=== PATIENT | female | born 1965 | race Caucasian/White ===

== ENCOUNTER → 2017-12-10 12:35 | Outpatient (CLI) | payer MEDICAID, SELFPAY ==
--- NOTE | 2017-12-10 12:38 | BI_ITS ---
MAMMOGRAPHY - BILATERAL SCREENING REASON FOR EXAM: Female, 52 years old. Routine annual screening examination. PERTINENT HISTORY: Aunt with breast cancer. TECHNIQUE: Digital bilateral breast lakeshia (3D mammographic acquisition) in the CC and MLO projections. 2-D mediolateral oblique (MLO) and craniocaudad (CC) views of both breasts were obtained. CAD: Full Field Digital Mammography with Computer Added Detection was performed. COMPARISON: Comparison is made with prior examination dated July 10, 2016 and November 06, 2014. FINDINGS: Breast Composition: The breasts are almost entirely fatty. There are no dominant masses or suspicious calcifications. Stable benign-appearing bilateral axillary lymph nodes. No other significant abnormalities are identified. There has been no significant change since the prior study. BI/SCREENING MAMM (CAD), BILAT IMPRESSION: Stable bilateral screening mammogram. Yearly follow-up mammogram recommended. (A) ASSESSMENT CATEGORY: BIRADS Category 2: Benign. A letter regarding these results will be sent to the patient by the facility within 30 days. Approximately 10% of breast cancers are not detected by mammography. A normal mammogram should not delay biopsy of a clinically suspicious abnormality. [id number] Electronically Signed: Leo Tipton MD at 14:20 EDT Tel [phone], Service support ,
== END ==
PROVIDERS: Family Provider Family Medicine; PCP Family Medicine; Visit Provider Family Medicine
DX: Z12.31 Encounter for screening mammogram for malignant neoplasm of breast (principal)
CPT/HCPCS: 77063; 77067

== ENCOUNTER 2018-04-07 15:05 | Outpatient (RCR) | payer MEDICAID, SELFPAY ==
--- NOTE | 2018-04-07 15:56 | HP.PTEVAL_ITS ---
Patient's Visit Information ARNIE MCQUEEN is a 52 year old F referred to Physical Therapy by EWA DINH with a diagnosis of LBP. Date of Evaluation: 04/07/18 Physical Therapist: Niels Trinidad DPT, OC - Visit Plan Frequency: 3x /Week Duration: 4-6 Weeks Plan: 3x/week for 2-4 weeks for: 1. Janice based L/S ext ex adn mobs as needed adn progression of forces. 2. Core strength adn postural sterngth to HEP. 3. Body mechanics as she feels better. 4. ES and MH if needed. - Subjective Subjective: R LBP and into outside of hip pain. started 3 weeks ago in the middle of the night bending down to put dogs leash on. Couldn't move after that. Didn't work all week. Saw doctor who wrote her off for the week. Saw chiropractor who did electrodes with MH. It helped. Was put on Naproxen which made her sick. Taking alleve. 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 Bending still hurts. Sitting is not bad unless she sits for too long, 40 minute period is too much. Basic ADLs OK but avoids garbage adn cleaning. Hobbies include walking and playing with dog, hasn't been able to walk the dog. No regualr ex. - Pain R LBP Pain Intensity (Out of 10): 2 Pain Intensity Range: 0, 9 Comment: better am - Objective LB AROM is limited in ext max with pain R, flexion min limited with R pull, SB painful R not L and mildly limited B. Posture is flat lordosis and kyphotic T/S. No tenderness in LB paraspinals. reflexes 2/3 patella and achilles. Sensation LE WNL to gross light touch. no c/o bowel or bladder problems. Strength LE 4-/5 without myotomal abnormalities. Repeated motion: ext PPU, improved ROM and B. Better after sitting in chair with appropriate towel roll lordosis. Trasnfers adn gait are I but slow adn hesitant. - Goals Goal 1:: Patient have 0-1/10 pain only and 95% better overall. Goal Time Frame: 4-6 Weeks Goal 2:: Patient transfer table and chair withotu hesitancy Goal Time Frame: 4-6 Weeks Goal 3:: Patient sleep through the night without waking Goal Time Frame: 4-6 Weeks Goal 4:: I approp HEP to minimize future problems. Goal Time Frame: 4-6 Weeks - Rehabilitation Potential Physical Therapy Diagnosis: LBP likely discal in nature. Rehabilitation Potential: Good - Anticipated Interventions Patient/Client Instruction: Educate patient on: Condition, Plan of Care For the Purpose of:: To decrease pain, To increase ROM, To increase tolerance to activity/condition/position Therapeutic Exercise to Include: Strength training, Passive ROM, Active ROM, Dynamic Lumbar Stabilization, Janice Exercises For the Purpose of:: To decrease pain, To improve muscle performance and motor function, To improve ability of physical actions for home/community/work/leisure Manual Therapy Techniques to Include: Mobilization For the Purpose of:: To increase ROM TENS: Yes Thermo therapy (hot pack): Yes For the Purpose of:: To decrease pain Thank you for the opportunity to evaluate your patient. For Medicare and Medicare HMO plans, please review the plan of care and approve it. It will need to be FAXED BACK to us at [phone] for Medicare purposes. Please let me know if there are questions or concerns regarding this plan of care. Physician Signature: Date:
--- NOTE | 2018-04-21 17:10 | HP.PT.NRP ---
HP - Discharge Summary (1) - Patient Information ARNIE MCQUEEN was seen in my office for initial evaluation on 04/07/18. The following Plan of Care was established for this patient: Initial Frequency: 3x /Week Initial Duration: 4-6 Weeks - Anticipated Interventions Patient/Client Instruction: Educate patient on: Condition, Plan of Care For the Purpose of:: To decrease pain, To increase ROM, To increase tolerance to activity/condition/position Therapeutic Exercise to Include: Strength training, Passive ROM, Active ROM, Dynamic Lumbar Stabilization, Janice Exercises For the Purpose of:: To decrease pain, To improve muscle performance and motor function, To improve ability of physical actions for home/community/work/leisure Manual Therapy Techniques to Include: Mobilization For the Purpose of:: To increase ROM TENS: Yes Thermo therapy (hot pack): Yes For the Purpose of:: To decrease pain This patient was last seen in our office 04/07/18. Pertinent comments regarding their Physical therapy will appear below: PT SEEN ONE VISIT FOR EVALUATIONA ND poc ESTABLISHED. pATIENT HAS CALLED TO CANCEL ALL VISITS STATING THAT SHE HAS HAD A CHANGE OF TREATMENT. I will discontinue at her request. At this point I will be discontinuing this patient from physical therapy. I would be happy to see this patient again in the future if found appropriate by the physician. Thank you! Niels Trinidad, DPT, OC
== END 2018-04-07 19:00 | disposition home or self-care (01) ==
LOC: PT 15:05
PROVIDERS: Family Provider Family Medicine; PCP Family Medicine
DX: M54.5 Low back pain (principal)
CPT/HCPCS: 97110; 97162

== ENCOUNTER → 2018-06-01 14:21 | Outpatient (CLI) | payer MEDICAID, SELFPAY ==
[2018-05-31 14:20] VITALS: BMI 45.6
[2018-06-01 14:57] LABS: Bacteria 0 SEEN /hpf (None Seen); Mucous, Urine 0 SEEN /hpf (<or=2+); Red Blood Cells-Urine 0 SEEN /hpf (0-5)
[2018-06-01 15:30] LABS: Color, Urine Yellow (Yellow); Glucose, Dipstick Normal (Normal); Ketone-Dipstick Negative (Negative); Leukocyte Esterase-Dipstick 100 /ul (Negative); Nitrite-Dipstick Negative (Negative); Occult Blood-Urine Negative /ul (Negative); Protein-Dipstick 15 mg/dl (Negative); Urine Bilirubin Dipstick Negative (Negative); Urine Clarity Clear (Clear); Urine Urobilinogen Normal (Normal)
[2018-06-01 16:12] LABS: Squamous Epithelial Cells - UA 5-10 SEEN /hpf (5-10); White Blood Cells 0-5 SEEN /hpf (0-5)
== END ==
PROVIDERS: Family Provider Family Medicine; PCP Family Medicine; Referring Provider Physician Assistant; Visit Provider Physician Assistant
DX: R10.9 Unspecified abdominal pain (principal)
CPT/HCPCS: 81001; 87086; 87088

== ENCOUNTER 2018-06-15 18:37 | Emergency (ER) | payer MEDICAID, SELFPAY ==
[2018-05-31 14:20] VITALS: BMI 45.6
[2018-06-15 18:38] VITALS: BP 144/93; PULSE 112; RESP 17; TEMP 36.8; O2SAT 95; BMI 45.9
--- NOTE | 2018-06-15 19:16 | US_ITS ---
STUDY: VENOUS DOPPLER ULTRASOUND - LEFT LOWER EXTREMITY REASON FOR EXAM: Female, 53 years old. Posterior knee swelling. TECHNIQUE: Ultrasound evaluation of the deep vein system to include lloyd-scale imaging and compression was performed. Lloyd-scale imaging and Doppler sonographic evaluation, including duplex spectral analysis and qualitative color flow sonography, was performed. COMPARISON: None. FINDINGS: Common Femoral Vein: Normal compression, spontaneity and augmentation. Normal color Doppler. Common Femoral Vein/Greater Saphenous Junction: Normal compression, spontaneity and augmentation. Normal color Doppler. Deep Femoral Vein: Normal compression, spontaneity and augmentation. Normal color Doppler. Femoral Proximal: Normal compression, spontaneity and augmentation. Normal color Doppler. Femoral Middle: Normal compression, spontaneity and augmentation. Normal color Doppler. Femoral Distal: Normal compression, spontaneity and augmentation. Normal color Doppler. Popliteal Vein: Normal compression, spontaneity and augmentation. Normal color Doppler. Posterior Tibial Vein: Normal compression, spontaneity and augmentation. Normal color Doppler. Peroneal Vein: Normal compression, spontaneity and augmentation. Normal color Doppler. There is a 5.1 x 3.7 x 2.2 cm complex left popliteal fossa cyst. US/Venous Duplex Imag/Limited/Uni IMPRESSION: Normal venous Doppler ultrasound of the left lower extremity. 5.1 x 3.7 x 2.2 cm complex left popliteal fossa cyst. Electronically Signed: Chavo Mo, at 20:19 EST Tel , Service support ,
--- NOTE | 2018-06-15 20:02 | ED.DCSUM_ITS ---
- ER Visit Summary Date of Service: 06/15/18 Chief Complaint: Left knee pain History of Present Illness: The patient is a 53 F who noted pain and swelling just above her left knee last week. She thought she hit it on something. This has seemed to improve, but now she has pain and swelling along the proximal calf. Patient does have problems with elevated platelet counts which can lead to blood clots. She was sent from urgent care to ensure no blood clot. 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 She denies having chest pain or shortness of breath. Physical Examination: Vital signs remarkable for heart rate of 112, otherwise unremarkable. Patient sitting upright in bed no acute distress. Heart is regular rate and rhythm. Lungs sounds clear. Left lower extremity examination reveals mild edema with tenderness palpation over the medial proximal left calf. No palpable cords. No overlying skin changes. There is no focal tenderness at the knee joint itself. She has good range of motion. Test Results: Venous ultrasound of the left leg shows no evidence of DVT. There is a 5.1 x 3.7 x 2.2 cm complex left popliteal cyst. Emergency Department Course and Treatment: Test results were discussed with the patient. She wishes for no medication at this time. She has seen Dr. Fernando in the past and will follow-up if needed. Treatment Plan: [] Disposition: Discharge Impression: Armijo's cyst left knee This note was generated with Linki dictation software. It may contain incorrect words, spelling, and punctuation that were not noted in review of the chart prior to signing ED Disposition - Plan for ED Patient: Disposition: Home or Assisted Living Chief Complaint: Lower Extremity Injury Instructions: ED Cyst Armijo Referrals: Tyron Orellana III, MD [Primary Care Provider] - As Needed
[2018-06-15 20:12] VITALS: PULSE 82; RESP 18; O2SAT 98
--- OUTSIDE RECORDS SUMMARY | 2018-08-17 23:32 | XMS RPT_ITS ---
:1965 Author Organization [facility] Care Team Providers Name Role Phone EBONY CMCLOUD Referring Unavailable EBONY MCCLOUD Attending Unavailable EBONY MCCLOUD Referring Unavailable PHOEBE DACOSTA) Attending Unavailable CEBUL IIIMAE Attending Unavailable SUE WEBER Attending Unavailable SUE WEBER Referring Unavailable ZORAIDA BASS (TOBACCO DRUMMER) Attending Unavailable ZACHARY HANSEN Attending Unavailable CEBUL IIIMAE Referring Unavailable GEETA CANO (PA) Attending Unavailable CEBUL III, MAE A Referring Unavailable CEBUL III, MAE Higgins Attending Unavailable EBONY MCCLOUD Referring Unavailable BHUPINDER CASTAÑEDA Attending Unavailable CEBUL III, MAE Higgins Attending Unavailable CEBUL III, MAE Higgins Attending Unavailable LELA OROSCO (TOBACCO DRUMMER) Attending Unavailable CEBUL III, MAE Higgins Attending Unavailable ZORAIDA BASS (TOBACCO DRUMMER) Referring Unavailable BHUPINDER CASTAÑEDA Attending Unavailable ZORAIDA BASS (TOBACCO DRUMMER) Attending Unavailable Chavo Clement Attending Unavailable Cebul III, Mae Referring Unavailable Chavo Clement Attending Unavailable Chavo Clement Referring Unavailable Cebul III, Mae Primary Care Unavailable Cebul III, Mae Primary Care Unavailable Tanvi Ryan Attending Unavailable CHACHA VARELA Attending Unavailable CHACHA VARELA Referring Unavailable Cebul III, Mae Primary Care Unavailable CHACHA VARELA Consulting Unavailable Cebul, Josue Referring Unavailable Cebul III, Mae Primary Care Unavailable Cebul III, Mae Attending Unavailable PROBLEMS PROBLEMS DATE TYPE CONDITION / CODE ATTENDING STATUS SOURCE 06/04/2018 Active Encounter for ZORAIDA BASS Active [facility] screening for other (TOBACCO DRUMMER) Clinic Main disorder / [place] Z13.89(ICD-10) Repository 06/01/2018 Unknown R10.9 - Unspecified Chavo Clement Active [facility] abdominal pain / [facility] R10.9(ICD-10) Hospital Repository 05/03/2018 Active Unknown / NA Active [facility] UNK(Unknown) Clinic Main [place] Repository 04/27/2018 Unknown M54.5 - Low back pain CHACHA VARELA Active [place] / M54.5(ICD-10) Formerly [facility] Hospital Repository 06/02/2016 Active Elevated white blood NA Active [facility] cell count, Clinic Main unspecified / [place] D72.829(ICD-10) Repository 04/02/2010 Active Impaired glucose NA Active [facility] tolerance (oral) / Clinic Main R73.02(ICD-10) [place] Repository 03/17/2008 Active Essential (primary) NA Active [facility] hypertension / Clinic Main I10(ICD-10) [place] Repository 08/08/2016 Active Malignant neoplasm of NA Active [facility] left kidney, except Clinic Main renal pelvis / [place] C64.2(ICD-10) Repository 06/02/2016 Active Essential NA Active [facility] (hemorrhagic) Clinic Main thrombocythemia / [place] D47.3(ICD-10) Repository 04/04/2015 Active Hypothyroidism, NA Active [facility] unspecified / Clinic Main E03.9(ICD-10) [facility] Repository PROCEDURES PROCEDURES No Procedure Records FoundRESULTS RESULTS EMERGENCY DEPARTMENT Observed: 06/16/2018 Status: F Source: [place] SUMMARY 2:44 PM [facility] REPOSITORY [facility] Medical Records Department [address] [place] [address] Emergency Department Summary 06/15/182001 MR#: [id number] Acct: [id number] Name: PAYTON MCQUEEN Rep #: [id number] : 1965 53 From: Tanvi Ryan MD PCP: Mae Morton III, MD Status: DEP ER - ER Visit Summary Date of Service: 06/15/18 Chief Complaint: Left knee pain History of Present Illness: The patient is a 53 F who noted pain and swelling just above her left knee last week. She thought she hit it on something. This has seemed to improve, but now she has pain and swelling along the proximal calf. Patient does have problems with elevated platelet counts which can lead to blood clots. She was sent from urgent care to ensure no blood clot. 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 She denies having chest pain or shortness of breath. Physical Examination: Vital signs remarkable for heart rate of 112, otherwise unremarkable. Patient sitting upright in bed no acute distress. Heart is regular rate and rhythm. Lungs sounds clear. Left lower extremity examination reveals mild edema with tenderness palpation over the medial proximal left calf. No palpable cords. No overlying skin changes. There is no focal tenderness at the knee joint itself. She has good range of motion. Test Results: Venous ultrasound of the left leg shows no evidence of DVT. There is a 5.1 x 3.7 x 2.2 cm complex left popliteal cyst. Emergency Department Course and Treatment: Test results were discussed with the patient. She wishes for no medication at this time. She has seen Dr. Fernando in the past and will follow-up if needed. Treatment Plan: [] Disposition: Discharge Impression: Armijo's cyst left knee This note was generated with DyMyndation software. It may contain incorrect words, spelling, and punctuation that were not noted in review of the chart prior to signing ED Disposition - Plan for ED Patient: Disposition: Home or Assisted Living Chief Complaint: Lower Extremity Injury Instructions: ED Krystina Armijo Referrals: Mae Morton III, MD [Primary Care Provider] - As Needed What to do if you have Problems For any increased pain, shortness of breath, bleeding, nausea or vomiting, chest pain, or any unexpected problems, contact your Primary Care Provider. Call [facility] ([phone]) or report to the closest Emergency Room. Call 911 if necessary. 06/16/18 1444 <Electronically signed by Tanvi Ryan MD> Date Tanvi Ryan MD Cosigner Signature (If Indicated): Date CC: Mae Morton III, MD DISCHARGE INSTRUCTION Observed: 06/15/2018 Status: F Source: [place] 8:03 PM [facility] REPOSITORY [facility] Medical Records Department [address] [place] [address] Discharge Instruction 06/15/182001 MR#: [id number] Acct: [id number] Name: PAYTON MCQUEEN Rep #: [id number] : 1965 53 From: Tanvi Ryan MD PCP: Mae Morton III, MD Status: REG ER ED Disposition - Plan for ED Patient: Disposition: Home or Assisted Living Chief Complaint: Lower Extremity Injury Instructions: ED Krystina Armijo Referrals: Mae Morton III, MD [Primary Care Provider] - As Needed What to do if you have Problems For any increased pain, shortness of breath, bleeding, nausea or vomiting, chest pain, or any unexpected problems, contact your Primary Care Provider. Call [facility] ([phone]) or report to the closest Emergency Room. Call 911 if necessary. 06/15/182002 <Electronically signed by Tanvi Ryan MD> Date Tanvi Ryan MD Cosigner Signature (If Indicated): Date CC: Mae Morton III, MD VENOUS DUPLEX Observed: 06/15/2018 Status: F Source: [place] IMAG/LIMITED/UNI 7:16 PM [facility] REPOSITORY [facility] Imaging Services [address] [place] [address] Venous Duplex Imag/Limited/Uni MR#: [id number] Acct: [id number] Name: PAYTON MCQUEEN Rep #: [id number] : 1965 F 53 From: Chavo Hassan MD PCP: Mae Morton III, MD Status: DEP ER Study: Venous Duplex Imag/Limited/Uni Date of Exam: 06/15/18 Exam# [id number] Ordering Dr: Tanvi Ryan MD STUDY: VENOUS DOPPLER ULTRASOUND - LEFT LOWER EXTREMITY REASON FOR EXAM: Female, 53 years old. Posterior knee swelling. TECHNIQUE: Ultrasound evaluation of the deep vein system to include lloyd-scale imaging and compression was performed. Lloyd-scale imaging and Doppler sonographic evaluation, including duplex spectral analysis and qualitative color flow sonography, was performed. COMPARISON: None. FINDINGS: Common Femoral Vein: Normal compression, spontaneity and augmentation. Normal color Doppler. Common Femoral Vein/Greater Saphenous Junction: Normal compression, spontaneity and augmentation. Normal color Doppler. Deep Femoral Vein: Normal compression, spontaneity and augmentation. Normal color Doppler. Femoral Proximal: Normal compression, spontaneity and augmentation. Normal color Doppler. Femoral Middle: Normal compression, spontaneity and augmentation. Normal color Doppler. Femoral Distal: Normal compression, spontaneity and augmentation. Normal color Doppler. Popliteal Vein: Normal compression, spontaneity and augmentation. Normal color Doppler. Posterior Tibial Vein: Normal compression, spontaneity and augmentation. Normal color Doppler. Peroneal Vein: Normal compression, spontaneity and augmentation. Normal color Doppler. There is a 5.1 x 3.7 x 2.2 cm complex left popliteal fossa cyst. US/Venous Duplex Imag/Limited/Uni IMPRESSION: Normal venous Doppler ultrasound of the left lower extremity. 5.1 x 3.7 x 2.2 cm complex left popliteal fossa cyst. Electronically Signed: Chavo Hassan, at 20:19 EST Tel , Service support , CC: Mae Morton III, MD; Tanvi Ryan MD Nitric Acid Concentrator Operator: Signed PROGRESS Observed: 06/15/2018 Status: COMPLETED Source: [place] 6:49 PM [facility] REPOSITORY HNO ID: [id number] Author: Sophia Strong Service: (none) Author Type: Physician Zookeeper Type: Progress Notes Filed: 06/15/2018 6:51 PM Note Text: [facility] with left calf pain/swelling. States she has fallen in the snow, but doesn't recall significant injury. PMH of essential thrombocythemia. Patient referred to [facility] ER for further evaluation. 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 Presents today for bladder discomfort, urinary frequency which increased to every one to 1.5 hours, NTF increased, [facility], UA showed large amount of WBC, she was placed on macrobid for 5 days the pain decreased. Denies gross hematuria. She has been taking mirabegron 50 mg which has been controlling her OAB. Accompanied symptoms included some fever and chills along with respiratory symptoms. She is currently taking D mannose and daily probiotic She took naprosyn and recently ibuprofen PVR 37 cc 10/15/2016 surgical pathology 1. Left kidney, tumor, partial nephrectomy (A) - Oncocytic renal neoplasm of low malignant potential (1.8 cm in greatest dimension). See synoptic report. - Tumor is confined to the kidney. - Lymphovascular invasion is not identified. - Renal parenchymal and capsular margins of resection are negative for tumor. 2. Peritumor fat, excision (B) - Adipose tissue, negative for malignancy. Urine cultures 05/03/2018 normal urogenital bernabe 01/08/2017 >100,000 klebsiella pneumoniae treated with bactrim 05/16/2016 10,000-<50,000 contaminated 05/05/2016 >100,000 klebsiella pneumoniae >100,000 enterocbacter cloacae complex 04/22/2016 10,000-<50,000 contaminated 04/04/2016 <10,000 gram negative bacilli 03/21/2016 10,000-<50,000 contaminated DTF:2-3 times per day NTF:able to sleep 6 hours at night, improved from voiding 2-3 times at night URGENCY:not as much since surgery UUI:no BRIDGET:no STRAINING:no COMPLETE EMPTYING:yes PADS PER DAY:no FLUID INTAKE: coffee, 1/2 cup 1-2 cokes per day water, 2-4 16 ounce water bottles Past Urological History: Stones:no Surgery:yes: 11/2013 cystoscopy, hydrodilation of bladder by , 04/[address] Molina Tumors:no Infections:yes: 3 over the last year VITALS: There were no vitals taken for this visit. ALLERGIES: Benedryl [Diphenhydramine]; Celebrex [Celecoxib]; Erythromycin; Lisinopril; Prochlorperazine; Toradol [Ketorolac]; Vesicare [Solifenacin] MEDICATIONS: Current Outpatient Prescriptions: cyclobenzaprine (FLEXERIL) 10 mg tablet Take 1 tablet by mouth three times daily as needed for Muscle Spasm. Disp: 30 tablet Rfl: 1 busPIRone (BUSPAR) 15 mg tablet TAKE ONE TABLET BY MOUTH TWICE DAILY Disp: 60 tablet Rfl: 1 naproxen (NAPROSYN) 500 mg tablet Take 1 tablet by mouth twice daily as needed for Pain. Take with food. Disp: 60 tablet Rfl: 1 MYRBETRIQ 50 mg Tb24 Take 1 tablet by mouth once daily. Disp: 90 tablet Rfl: 3 COMPOUNDED PRESCRIPTION OTC bladder supplement D mannose Disp: Rfl: Hydrochlorothiazide 12.5 mg capsule Take 1 capsule by mouth once daily. Disp: 30 capsule Rfl: 5 metFORMIN (GLUCOPHAGE) 500 mg tablet Take 1 tablet by mouth twice daily with meals. Disp: 180 tablet Rfl: 3 Omeprazole 40 mg capsule Take 1 capsule by mouth once daily. Disp: 90 capsule Rfl: 3 fluticasone (FLONASE) 50 mcg/actuation nasal spray Use 2 Sprays in each nostril once daily. Rinse mouth after use. Disp: 1 Bottle Rfl: 0 buPROPion XL (WELLBUTRIN XL) 300 mg 24 hr tablet TAKE ONE TABLET BY MOUTH EVERY DAY Disp: 90 tablet Rfl: 3 levothyroxine (SYNTHROID) 125 mcg tablet Take 1 tablet by mouth once daily. Disp: 90 tablet Rfl: 3 aspirin, enteric coated (ADULT LOW DOSE ASPIRIN) 81 mg EC tablet Take 1 tablet by mouth once daily. Disp: 100 tablet Rfl: 2 SACCHAROMYCES BOULARDII (PROBIOTIC, S.BOULARDII, ORAL) Take by mouth once daily. Disp: Rfl: No current facility-administered medications for this visit. 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[employer]* Social History Main Topics Smoking status: Never Smoker Smokeless tobacco: Never Used Alcohol use: Yes Comment: rarely Drug use: No Sexual activity: Not Currently control/protection: Condom, Pill PAST MEDICAL HISTORY: PAST MEDICAL HISTORY Diagnosis Date - Acute gastritis without mention of hemorrhage - Anxiety - Benign neoplasm of stomach - Cervical disc disorder with radiculopathy 02/18/2010 - Cyst of ovary 01/01/2015 [facility] - see scanned documents - Depressive disorder, not elsewhere classified - Essential thrombocythemia (HCC) 06/02/2016 - GERD (gastroesophageal reflux disease) - Hypertension 08/28/11 - IC (interstitial cystitis) - Impaired fasting glucose 04/02/2010 - Lumbar disc disease with radiculopathy 11/15/2010 - Metabolic syndrome X - Morbid obesity with BMI of 40.0-44.9, adult (HCC) 08/29/2013 - Renal cyst, left 07/03/2016 18 mm, 06/18/16 - Sciatica - SI (sacroiliac) joint dysfunction 06/04/2011 - Thoracolumbar back pain 07/20/2013 - Unspecified hypothyroidism - Urinary calculus, unspecified Renal stones PAST SURGICAL HISTORY: PAST SURGICAL HISTORY Procedure Laterality Date - CYSTOSCOPY,DIL BLADDER,LOCAL ANESTH 01/18/14 - EGD W/O BRSH SPECIMEN W/BX 04/09/2007 gastritis, gastric polyps - 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 Valadez - PAST SURGICAL HISTORY OF WISDOM TEETH EXTRACTIONS - PAST SURGICAL HISTORY OF 05/2012 bladder hydrodistension X 2 - PAST SURGICAL HISTORY OF 2014 pain injection lumbar- multiple - PAST SURGICAL HISTORY OF Cyst removed from head - REMOVAL GALLBLADDER 1991 Cholecystectomy FAMILY HISTORY: FAMILY HISTORY Problem Relation Age of Onset - Diabetes Father - Hypertension Father - Cancer Maternal Grandmother Lymphoma - Heart Maternal Grandfather hypertension - Hypertension Brother All histories reviewed on this date 06/04/2018: Yes REVIEW OF SYSTEMS: CONSTITUTIONAL: Patient reports no recent fever or weight loss EYES: Negative for redness, blurry vision, double vision or loss of vision EAR, NOSE AND THROAT: DENIES HAVING: Sore throat Dysphagia CARDIOVASCULAR: Negative for chest pain. RESPIRATORY: Negative for cough, hemoptysis, wheezing or shortness of breath GI: No nausea, vomiting, or diarrhea MUSCULOSKELETAL: denies back pain or muscular weakness SKIN: Negative for lesions, rash, and itching PSYCH: Negative for sleep disturbance, mood disorder and recent psychosocial stressors. HEMATOLOGY/LYMPHOLOGY Negative for prolonged bleeding, bruising easily or swollen nodes ENDOCRINE: Negative for cold or heat intolerance, polyuria, polydipsia and goiter All other reviewed and negative other than HPI. PHYSICAL EXAM: constitutional: appears healthy in no acute distress, over weight respiratory: normal respiratory motion gi: abdomen soft, non-tender gu: bladder: minimal bladder discomfort on palpation skin: no rashes or bruises noted. Neuro: Gait normal. Sensation grossly intact. RADIOLOGY REPORTS REVIEWED: Yes PVR 27 cc was PVR 52 cc 07/30/2016 CT kidney IMPRESSION: 1. ?There is again noted be a solid mass showing some contrast enhancement in the lower pole LEFT kidney which appears to have enlarged. ?This most probably represents a neoplasm. ?. 2. ?Question of a tiny noncalcified nodular density RIGHT lower lung field in the upper most image of the study. 3. ?LEFT ovarian cyst LAB RESULTS REVIEWED: Yes Component Latest Ref Rng AND Units 06/04/2018 GLUCOSE UA (POCT) Negative mg/dL Negative BILIRUBIN UA (POCT) Negative Negative KETONE UA (POCT) Negative mg/dL Negative SPECIFIC GRAVITY UA (POCT) 1.005 - 1.030 1.010 HEMOGLOBIN/BLOOD UA (POCT) Negative Negative PH UA (POCT) 4.5 - 8.0 6.0 PROTEIN UA (POCT) Negative mg/dL Negative UROBILINOGEN UA (POCT) Normal E.U./dL 0.2 NITRITE UA (POCT) Negative Negative LEUKOCYTES UA (POCT) Negative Negative COLOR UA (POCT) Yellow CLARITY UA (POCT) Clear IMAGING STUDIES INDEPENDENTLY REVIEWED: Yes OLD RECORDS REVIEWED: Yes: Extensive: No ASSESSMENT/PLAN: ASSESSMENT/PLAN: 1. Chronic interstitial cystitis - ICD9: 595.1, ICD10: N30.10 (primary diagnosis) -UA negative today -completed macrobid today -I explained that if she actually had a UTI last week it may take some time for the bladder inflammation to subside, if the bladder pain continues and her follow up urine culture is negative she will need another cystoscopy to evaluate the bladder lining, she has had 4 hydrodilations in the past for her IC - URINE CULTURE 2. Overactive bladder - ICD9: 596.51, ICD10: N32.81 -continue with mirabegron 50 mg PO daily 3. Renal oncocytoma, left - ICD9: 223.0, ICD10: D30.02 -s/p left partial nephrectomy 09/2016 - US KIDNEY/BLADDER Zoraida Bass APRN.TOBACCO DRUMMER Disease Specificity: Acuity: Acute Severity: Mild, 0/10 Anatomic Site: Bladder, Laterality: N/A Underlying Condition/Causal Agent: Primary-IC Associated Conditions/Manifestations: urgency Patient is instructed to schedule a follow up in 6 months CNOV Observed: 06/04/2018 Status: COMPLETED Source: [place] 9:00 AM [facility] REPOSIT[facility] Office Visit (UROLST) PAYTON MCQUEEN ([id number]) 1965 F Date Time Provider Department 06/04/18 9:00 AM ZORAIDA BASS ([facility]) UROLST During your visit today, we recorded the following information about you: Zoraida Bass APRN.BUD 06/04/2018 10:15 AM Signed Payton Marifer Richar is a 52 year old female who presents today for evaluation of Patient presents with: UTI CHIEF COMPLAINT AND HISTORY OF PRESENT ILLNESS CC: frequency 52 year old female with a history of IC with 5 bladder hydrodilations, anxiety, 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 Presents today for bladder discomfort, urinary frequency which increased to every one to 1.5 hours, NTF increased, [facility], UA showed large amount of WBC, she was placed on macrobid for 5 days the pain decreased. Denies gross hematuria. She has been taking mirabegron 50 mg which has been controlling her OAB. Accompanied symptoms included some fever and chills along with respiratory symptoms. She is currently taking D mannose and daily probiotic She took naprosyn and recently ibuprofen PVR 37 cc 10/15/2016 surgical pathology 1. Left kidney, tumor, partial nephrectomy (A) - Oncocytic renal neoplasm of low malignant potential (1.8 cm in greatest dimension). See synoptic report. - Tumor is confined to the kidney. - Lymphovascular invasion is not identified. - Renal parenchymal and capsular margins of resection are negative for tumor. 2. Peritumor fat, excision (B) - Adipose tissue, negative for malignancy. Urine cultures 05/03/2018 normal urogenital bernabe 01/08/2017 >100,000 klebsiella pneumoniae treated with bactrim 05/16/2016 10,000-<50,000 contaminated 05/05/2016 >100,000 klebsiella pneumoniae >100,000 enterocbacter cloacae complex 04/22/2016 10,000-<50,000 contaminated 04/04/2016 <10,000 gram negative bacilli 03/21/2016 10,000-<50,000 contaminated DTF:2-3 times per day NTF:able to sleep 6 hours at night, improved from voiding 2-3 times at night URGENCY:not as much since surgery UUI:no BRIDGET:no STRAINING:no COMPLETE EMPTYING:yes PADS PER DAY:no FLUID INTAKE: coffee, 1/2 cup 1-2 cokes per day water, 2-4 16 ounce water bottles Past Urological History: Stones:no Surgery:yes: 11/2013 cystoscopy, hydrodilation of bladder by , 04/[address] Molina Tumors:no Infections:yes: 3 over the last year VITALS: There were no vitals taken for this visit. ALLERGIES: Benedryl [Diphenhydramine]; Celebrex [Celecoxib]; Erythromycin; Lisinopril; Prochlorperazine; Toradol [Ketorolac]; Vesicare [Solifenacin] MEDICATIONS: Current Outpatient Prescriptions: cyclobenzaprine (FLEXERIL) 10 mg tablet Take 1 tablet by mouth three times daily as needed for Muscle Spasm. Disp: 30 tablet Rfl: 1 busPIRone (BUSPAR) 15 mg tablet TAKE ONE TABLET BY MOUTH TWICE DAILY Disp: 60 tablet Rfl: 1 naproxen (NAPROSYN) 500 mg tablet Take 1 tablet by mouth twice daily as needed for Pain. Take with food. Disp: 60 tablet Rfl: 1 MYRBETRIQ 50 mg Tb24 Take 1 tablet by mouth once daily. Disp: 90 tablet Rfl: 3 COMPOUNDED PRESCRIPTION OTC bladder supplement D mannose Disp: Rfl: Hydrochlorothiazide 12.5 mg capsule Take 1 capsule by mouth once daily. Disp: 30 capsule Rfl: 5 metFORMIN (GLUCOPHAGE) 500 mg tablet Take 1 tablet by mouth twice daily with meals. Disp: 180 tablet Rfl: 3 Omeprazole 40 mg capsule Take 1 capsule by mouth once daily. Disp: 90 capsule Rfl: 3 fluticasone (FLONASE) 50 mcg/actuation nasal spray Use 2 Sprays in each nostril once daily. Rinse mouth after use. Disp: 1 Bottle Rfl: 0 buPROPion XL (WELLBUTRIN XL) 300 mg 24 hr tablet TAKE ONE TABLET BY MOUTH EVERY DAY Disp: 90 tablet Rfl: 3 levothyroxine (SYNTHROID) 125 mcg tablet Take 1 tablet by mouth once daily. Disp: 90 tablet Rfl: 3 aspirin, enteric coated (ADULT LOW DOSE ASPIRIN) 81 mg EC tablet Take 1 tablet by mouth once daily. Disp: 100 tablet Rfl: 2 SACCHAROMYCES BOULARDII (PROBIOTIC, S.BOULARDII, ORAL) Take by mouth once daily. Disp: Rfl: No current facility-administered medications for this visit. 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[employer]* Social History Main Topics Smoking status: Never Smoker Smokeless tobacco: Never Used Alcohol use: Yes Comment: rarely Drug use: No Sexual activity: Not Currently control/protection: Condom, Pill PAST MEDICAL HISTORY: PAST MEDICAL HISTORY Diagnosis Date - Acute gastritis without mention of hemorrhage - Anxiety - Benign neoplasm of stomach - Cervical disc disorder with radiculopathy 02/18/2010 - Cyst of ovary 01/01/2015 [facility] - see scanned documents - Depressive disorder, not elsewhere classified - Essential thrombocythemia (HCC) 06/02/2016 - GERD (gastroesophageal reflux disease) - Hypertension 08/28/11 - IC (interstitial cystitis) - Impaired fasting glucose 04/02/2010 - Lumbar disc disease with radiculopathy 11/15/2010 - Metabolic syndrome X - Morbid obesity with BMI of 40.0-44.9, adult (HCC) 08/29/2013 - Renal cyst, left 07/03/2016 18 mm, 06/18/16 - Sciatica - SI (sacroiliac) joint dysfunction 06/04/2011 - Thoracolumbar back pain 07/20/2013 - Unspecified hypothyroidism - Urinary calculus, unspecified Renal stones PAST SURGICAL HISTORY: PAST SURGICAL HISTORY Procedure Laterality Date - CYSTOSCOPY,DIL BLADDER,LOCAL ANESTH 01/18/14 - EGD W/O [facility] SPECIMEN W/BX 04/09/2007 gastritis, gastric polyps - 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 Valadez - PAST SURGICAL HISTORY OF WISDOM TEETH EXTRACTIONS - PAST SURGICAL HISTORY OF 05/2012 bladder hydrodistension X 2 - PAST SURGICAL HISTORY OF 2015 pain injection lumbar- multiple - PAST SURGICAL HISTORY OF Cyst removed from head - REMOVAL GALLBLADDER 1991 Cholecystectomy FAMILY HISTORY: FAMILY HISTORY Problem Relation Age of Onset - Diabetes Father - Hypertension Father - Cancer Maternal Grandmother Lymphoma - Heart Maternal Grandfather hypertension - Hypertension Brother All histories reviewed on this date 06/04/2018: Yes REVIEW OF SYSTEMS: CONSTITUTIONAL: Patient reports no recent fever or weight loss EYES: Negative for redness, blurry vision, double vision or loss of vision EAR, NOSE AND THROAT: DENIES HAVING: Sore throat Dysphagia CARDIOVASCULAR: Negative for chest pain. RESPIRATORY: Negative for cough, hemoptysis, wheezing or shortness of breath GI: No nausea, vomiting, or diarrhea MUSCULOSKELETAL: denies back pain or muscular weakness SKIN: Negative for lesions, rash, and itching PSYCH: Negative for sleep disturbance, mood disorder and recent psychosocial stressors. HEMATOLOGY/LYMPHOLOGY Negative for prolonged bleeding, bruising easily or swollen nodes ENDOCRINE: Negative for cold or heat intolerance, polyuria, polydipsia and goiter All other reviewed and negative other than HPI. PHYSICAL EXAM: constitutional: appears healthy in no acute distress, over weight respiratory: normal respiratory motion gi: abdomen soft, non-tender gu: bladder: minimal bladder discomfort on palpation skin: no rashes or bruises noted. Neuro: Gait normal. Sensation grossly intact. RADIOLOGY REPORTS REVIEWED: Yes PVR 27 cc was PVR 52 cc 07/30/2016 CT kidney IMPRESSION: 1. ?There is again noted be a solid mass showing some contrast enhancement in the lower pole LEFT kidney which appears to have enlarged. ?This most probably represents a neoplasm. ?. 2. ?Question of a tiny noncalcified nodular density RIGHT lower lung field in the upper most image of the study. 3. ?LEFT ovarian cyst LAB RESULTS REVIEWED: Yes Component Latest Ref Rng AND Units 06/04/2018 GLUCOSE UA (POCT) Negative mg/dL Negative BILIRUBIN UA (POCT) Negative Negative KETONE UA (POCT) Negative mg/dL Negative SPECIFIC GRAVITY UA (POCT) 1.005 - 1.030 1.010 HEMOGLOBIN/BLOOD UA (POCT) Negative Negative PH UA (POCT) 4.5 - 8.0 6.0 PROTEIN UA (POCT) Negative mg/dL Negative UROBILINOGEN UA (POCT) Normal E.U./dL 0.2 NITRITE UA (POCT) Negative Negative LEUKOCYTES UA (POCT) Negative Negative COLOR UA (POCT) Yellow CLARITY UA (POCT) Clear IMAGING STUDIES INDEPENDENTLY REVIEWED: Yes OLD RECORDS REVIEWED: Yes: Extensive: No ASSESSMENT/PLAN: ASSESSMENT/PLAN: 1. Chronic interstitial cystitis - ICD9: 595.1, ICD10: N30.10 (primary diagnosis) -UA negative today -completed macrobid today -I explained that if she actually had a UTI last week it may take some time for the bladder inflammation to subside, if the bladder pain continues and her follow up urine culture is negative she will need another cystoscopy to evaluate the bladder lining, she has had 4 hydrodilations in the past for her IC - URINE CULTURE 2. Overactive bladder - ICD9: 596.51, ICD10: N32.81 -continue with mirabegron 50 mg PO daily 3. Renal oncocytoma, left - ICD9: 223.0, ICD10: D30.02 -s/p left partial nephrectomy 09/2016 - KIDNEY/BLADDER Zoraida Bass APRN.TOBACCO DRUMMER Disease Specificity: Acuity: Acute Severity: Mild, 0/10 Anatomic Site: Bladder, Laterality: N/A Underlying Condition/Causal Agent: Primary-IC Associated Conditions/Manifestations: urgency Patient is instructed to schedule a follow up in 6 months Referring Provider: SELF [[id number]] Allergies As of Date: 06/04/2018 Noted Allergy Reaction BENEDRYL (DIPHENHYDRAMINE) 04/25/2009 14 - Other: See Comments Comments: hyperactive CELEBREX (CELECOXIB) 05/28/2005 Comments: upsets stomach after prolonged use ie. 6 weeks ERYTHROMYCIN 02/05/2005 8 - GI Upset LISINOPRIL 01/23/2018 16 - Unknown Comments: Cough, hypotension PROCHLORPERAZINE 09/29/2016 1 - Mental Status Change Comments: Agitation, felt ill TORADOL (KETOROLAC) 01/15/2015 11 - Vomiting VESICARE (SOLIFENACIN) 11/20/2009 2 - Rash Date Reviewed: 06/04/2018 Reviewed by: Laci Almeida - Fully Assessed Reason for Visit: UTI [116] Primary Visit Diagnosis:Chronic interstitial cystitis [N30.10] Other Visit Diagnoses:Screening for genitourinary condition [Z13.89] Overactive bladder [N32.81] Renal oncocytoma, left [D30.02] Order(s):UA DIP, URINE (POC) [[id number]] Order #: [id number] #:[id number] [id number] [facility]ULT[facility] Order #: [id number] KIDNEY/BLADDER [[id number]] Order #: [id number] FUTURE Prescriptions as of 06/04/2018 Sig: CYCLOBENZAPRINE 10 MG TABLET Take 1 tablet by mouth three * BUSPIRONE 15 MG TABLET TAKE ONE TABLET BY MOUTH TWIC* NAPROXEN 500 MG TABLET Take 1 tablet by mouth twice * MYRBETRIQ 50 MG TABLET,EXTEND* Take 1 tablet by mouth once d* COMPOUNDED PRESCRIPTION OTC bladder supplement D weiner* HYDROCHLOROTHIAZIDE 12.5 MG C* Take 1 capsule by mouth once * METFORMIN 500 MG TABLET Take 1 tablet by mouth twice * OMEPRAZOLE 40 MG CAPSULE,IGLESIA* Take 1 capsule by mouth once * FLUTICASONE 50 MCG/ACTUATION * Use 2 Sprays in each nostril * BUPROPION XL 300 MG 24 HR TAB TAKE ONE TABLET BY MOUTH EVER* LEVOTHYROXINE 125 MCG TABLET Take 1 tablet by mouth once d* ASPIRIN 81 MG TABLET,DELAYED * Take 1 tablet by mouth once d* PROBIOTIC (S.BOULARDII) ORAL Take by mouth once daily. Problem List As Of Date 06/04/2018 Noted Resolved Lumbago [M54.5] INVALID FOR*03/26/2016 Hypothyroidism [E03.9] Greater Trochanteric bursitis right [M76.079] INVALID FOR*03/26/2016 Sciatica [M54.30] INVALID FOR*03/26/2016 GENERALIZED ANXIETY DIS [F41.1] INVALID FOR* ESOPHAGEAL REFLUX [K21.9] INVALID FOR* Acute gastritis without mention of hemorrhage [*INVALID FOR*03/26/2016 ADJUSTMENT DISORDER WITH DEPRESSED MOOD [F43.21]INVALID FOR* BENIGN HYPERTENSION [I10] INVALID FOR* Contusion of chest wall [S20.219A] INVALID FOR*03/26/2016 Thoracic or lumbosacral neuritis or radiculitis*INVALID FOR*03/26/2016 Cluster headache syndrome [G44.009] INVALID FOR*03/26/2016 Pelvic pain in female [R10.2] INVALID FOR*03/26/2016 Chronic Interstitial Cystitis [N30.10] INVALID FOR* Cervical radiculopathy [M54.12] INVALID FOR*03/26/2016 Brachial neuritis or radiculitis NOS [M54.12] INVALID FOR*03/26/2016 Cervical disc disorder with radiculopathy [M50.*INVALID FOR*03/26/2016 Impaired glucose tolerance [R73.02] INVALID FOR* Lumbar disc disease with radiculopathy [M51.16] INVALID FOR*03/26/2016 Piriformis syndrome [G57.00] INVALID FOR*03/26/2016 Nonallopathic lesion of sacral region, not else*INVALID FOR*03/26/2016 Avascular necrosis of hip [M87.059] INVALID FOR* SI (sacroiliac) joint dysfunction [M53.3] INVALID FOR*03/26/2016 Obesity, Class III, BMI 40-49.9 (morbid obesity*INVALID FOR* Lumbar facet arthropathy (HCC) [M47.816] INVALID FOR*03/26/2016 Lumbar spondylosis [M47.816] INVALID FOR*03/26/2016 Left shoulder strain [S46.912A] INVALID FOR*10/19/2014 Left renal mass [N28.89] INVALID FOR*03/26/2016 Thoracolumbar back pain [M54.5, M54.6] INVALID FOR*03/26/2016 Unspecified gastritis and gastroduodenitis with*INVALID FOR*03/26/2016 Right sided abdominal pain [R10.9] INVALID FOR*03/26/2016 Strain of right knee and leg [S86.911A] INVALID FOR*03/26/2016 Overactive bladder [N32.81] INVALID FOR* Essential thrombocythemia (HCC) [D47.3] INVALID FOR* Leukocytosis [D72.829] INVALID FOR* More... Primary cancer of left kidney (HCC) [C64.2] INVALID FOR*06/04/2018 Popliteal cyst, right [M71.21] INVALID FOR* Acute lumbar myofascial strain [S39.012A] INVALID FOR* Renal oncocytoma, left [D30.02] INVALID FOR* Disposition: Return in about 6 months (around 12/02/2018), or if symptoms worsen or fail to improve, for follow up . Follow-up and Disposition History Recorded Letter Text Payton Mcqueen Zoraida Bass CNP [facility] [address] [place] [address] June 04, 2018 TO WHOM IT MAY CONCERN: RE: Payton Mcqueen : 1965 Dear Sir eleanor Mirza This is to certify that Payton Mcqueen has been under my care for urological condition and was unable to attend work from 06/04/2018 through 06/04/2018. She may return towork on 06/07/2018 with the following instructions: none. Sincerely yours, Zoraida Bass APRN.CNP Encounter Status:Closed by ZORAIDA BASS CNP on 06/04/18 URINALYSIS, COMPLETE Collected: 06/01/2018 Status: F Source: [place] 2:55 PM [facility] REPOSITORY Order Comment: How was Urine Obtained? CLEAN CATCH TYPE CODE TESTS RESULT OUT OF RANGE REFERENCE UNITS LAB L400.3000 Yellow COLOR Normal Yellow LAB L400.3050 Clear Normal CLARITY Clear LAB L400.3200 Normal mg/dl Normal GLUCOSE, UR Normal LAB L400.3300 Negative mg/dL Normal BILIRUBIN URINE Negative LAB L400.3400 Negative mg/dl Normal KETONE UR Negative LAB L400.3465 1.002-1.030 Normal SP.GR. DIPSTX 1.010 LAB L400.3550 5.0 - 8.0 pH UR Normal 7.0 LAB L400.3600 Negative mg/dl High PROT 15 DIPSTX LAB L400.3700 Normal mg/dl Normal UROBILI Normal LAB L400.3750 Negative Normal NITRITE UR Negative LAB L400.3780 Negative /ul Normal OCCULT BLOOD-UR Negative LAB L400.3800 Negative /ul High LEUK ESTERASE 100 LAB L400.4050 0-5 /hpf WBC Normal 0-5 SEEN LAB L400.4100 0-5 /hpf 0 Normal RBC-UA SEEN LAB L400.4150 5-10 /hpf SQUAM Normal EPI 5-10 SEEN LAB L400.4300 None Seen /hpf 0 Normal BACTERIA SEEN LAB L400.4350 <or=2+ /hpf 0 Normal MUCUS, URINE SEEN Performed By: #### L400.0001 #### [facility] [address] [place], [address] Observed: 06/01/2018 Status: F Source: [place] CULTURE, URINE 2:55 PM [facility] REPOSITORY Urine Culture Below infection level. Group B Streptococcus isolated from culture. ORGANISM 1: Mixed Gram Pos AND Gram Neg Org [place] Count 1000-10,000 Performed By: #### M100.0650 #### [facility] [address] [place], [address] URGENT CARE VISIT Observed: 05/31/2018 Status: F Source: [place] REPORT 3:14 PM [facility] REPOSITORY [facility] [place] [address] OFFICE VISIT Date of Service: 05/31/18 MR#: [id number] Acct: [id number] Name: PAYTON MCQUEEN Marifer Rep #: [id number] : 1965 Provider: Chavo LAUREN Age/Sex: 52/F Location: [facility] Status: Signed Intake Vital Signs05/31/18 Height 5 ft 4.5 in Intake Visit Reasons: Urinary tract infection Chief Complaint: Possible UTI Allergies solifenacin succinate [From Vesicare] Allergy (Verified 05/31/18 14:21) Hives celecoxib [From Celebrex] Adverse Reaction (Verified 05/31/18 14:21) Nausea/Vom/Diarrhea diphenhydramine HCl [From Benadryl] Adverse Reaction (Verified 05/31/18 14:21) Other erythromycin base [Erythromycin Base] Adverse Reaction (Verified 05/31/18 14:21) Nausea/Vom/Diarrhea ketorolac tromethamine [From Toradol] Adverse Reaction (Verified 05/31/18 14:21) Hives Medications Levothyroxine [Synthroid] 25 mcg PO DAILY 08/28/15 [History Confirmed 05/31/18] Metformin(XR) [Glucophage Xr] 500 mg PO BID 08/28/15 [History Confirmed 05/31/18] buPROPion SR [Wellbutrin Sr] 150 mg PO DAILY 08/28/15 [History Confirmed 05/31/18] busPIRone [Buspar] 5 mg PO DAILY 08/28/15 [History Confirmed 05/31/18] mirabegron ER 25 mg tablet,extended release 24 hr 50 mg PO DAILY 05/31/18 [History Confirmed 05/31/18] nitrofurantoin monohydrate/macrocrystals 100 mg capsule 100 mg PO BID #10 cap 05/31/18 [Rx Confirmed 05/31/18] PFSH Medical History Back pain (Acute) Cancer (Acute) Essential thrombocythemia (Acute) Knee pain (Acute) Malignant tumor of kidney (Acute) Severe headache (Acute) Stomach ulcer (Acute) Thyroid disease (Acute) Bladder distention (Chronic) Hypertension (Chronic) Interstitial cystitis (Chronic) Pre-diabetes (Chronic) Surgical History partial kidney removed (Acute) History of cholecystectomy (Inactive) Family History Father Diabetes Heart disease Hypertension Social History Smoking Status: Never smoker alcohol intake: never HPI HPI Chief Complaint: Possible UTI Details: PAYTON MCQUEEN, is a 52 F who presents to the office today for initial evaluation approximately 1 week history of suprapubic discomfort, dysuria, and urinary frequency. Patient notes having had a history of partial left nephrectomy, and as result is particularly concerned today. She notes no complaints of fever, chills, sweats, cough, chest pain/shortness of breath, or back pain. She notes no changes in intake and output, with the exception of noticing being slightly constipated. She notes no other associated symptoms, no alleviating or aggravating factors. ROS Const Constitutional: No other (ROS negative x10 other than as noted above) Exam Const General: cooperative, healthy appearing, no acute distress, uncomfortable Nutritional Appearance: obese Orientation: alert, awake, oriented x3 HENMT Head: normal to inspection Ears: hearing grossly normal bilaterally, external ears normal, TM's normal bilaterally (Examined at patient's request), EAC's normal Nose: external nose normal, nares normal, septum normal, no nasal discharge Face and sinus: normal facial exam, face symmetric Mouth: lip normal, tongue normal, oral mucosae normal Teeth and gingiva: gingiva normal, dentition normal Throat: uvula midline, tonsils normal, posterior oropharynx normal, no postnasal drainage Eyes General: appearance normal, both eyes and all related structures Neck Neck: normal visual inspection, full ROM, no lymphadenopathy, no meningeal signs, supple Neck mass: No Thyroid: thyroid normal Lymphatic: no lymphadenopathy noted Chest Chest palpation AND inspection: normal inspection of the chest Resp Effort AND Inspection: normal respiratory effort, able to speak in complete sentences, symmetric chest movement, no cough Auscultation: Bilateral: Clear to Auscultation Cardio Palpation: normal PMI Rate: regular rate Rhythm: regular rhythm Heart Sounds: S1 normal, S2 normal, no gallops, no murmurs, no rubs Pulses: radial pulses present GI Inspection: normal to inspection Palpation: soft, not firm, no guarding, tender suprapubicly and periumbilically; Negative for not at McBurney's point, Meraz's sign negative, with no rebound tenderness, psoas sign negative or obturator sign negative General: No CVA tenderness, other (See urinalysis dip results) Skin General: no rashes or lesions noted Neuro General: alert, awake, oriented x3, gait normal Cognition: normal cognition Speech: speech normal Gait: normal gait Motor: muscle tone normal throughout Sensory Exam: no sensory deficits noted Psych Appearance: grossly normal Mental Status: mental status grossly normal Mood: congruent mood Affect: normal affect Speech and Movement: speech and movement normal Attitude: cooperative Thought Process: normal Thought Content: normal Judgment: judgment good Results [facility] Office Urine Color YELLOW Last Edit by Taylor Doan on 05/31/18 14:28 Assessment AND Plan 1. Urinary tract infection N39.0 Plan Detail Other Orders Orders: Other Medications New: nitrofurantoin monohyd/m-cryst 100 mg (Macrobid) must mg PO BID 10 caps 0RF ster with a meal/food Additional Comments Macrobid as prescribed today; urine sample sent for culture and sensitivity due to patient's past medical history. Reinforce appropriate hygiene care. Clear fluids, rest, Advil/Tylenol as needed for symptomatic relief. Follow-up with PCP in 3-5 days should symptoms not improve, sooner should symptoms worsen or any other concerns develop. Patient states acknowledging understanding all the above. This note was generated with [employer] software. It may contain incorrect words, spelling, and punctuation that were not noted in checking the note before signing. Coding Level of Care Code Off vis,est,level 3 Diagnoses Urinary tract infection N39.0 05/31/18 1514 <Electronically signed by Chavo LAUREN> Date Chavo LAUREN Cosigner Signature: Date (if applicable) CC: PROGRESS Observed: 05/08/2018 Status: COMPLETED Source: [place] 11:49 AM [facility] REPOSITORY [facility] ID: [id number] Author: Bhupinder Castañeda Service: (none) Author Type: Physician Type: Progress Notes Filed: 05/08/2018 11:57 AM Note Text: Patient presents with: Sinus Problem: with left ear pain HPI: Patient presents today for office visit for not feeling well. Sick sine last weekend. Went home early from work. Lots of sinus drainage. Some left ear pain. Has sinus pressure on the left side. Some sore throat due to drainage. No shortness of breath. No chest pain. No diarrhea now or vomiting. No fever. MEDICATIONS: Current Outpatient Prescriptions: aspirin, enteric coated (ADULT LOW DOSE ASPIRIN) 81 mg EC tablet Take 1 tablet by mouth once daily. buPROPion XL (WELLBUTRIN XL) 300 mg 24 hr tablet TAKE ONE TABLET BY MOUTH EVERY DAY busPIRone (BUSPAR) 15 mg tablet TAKE ONE TABLET BY MOUTH TWICE DAILY Hydrochlorothiazide 12.5 mg capsule Take 1 capsule by mouth once daily. levothyroxine (SYNTHROID) 125 mcg tablet Take 1 tablet by mouth once daily. metFORMIN (GLUCOPHAGE) 500 mg tablet Take 1 tablet by mouth twice daily with meals. MYRBETRIQ 50 mg Tb24 Take 1 tablet by mouth once daily. Omeprazole 40 mg capsule Take 1 capsule by mouth once daily. SACCHAROMYCES BOULARDII (PROBIOTIC, S.BOULARDII, ORAL) Take by mouth once daily. COMPOUNDED PRESCRIPTION OTC bladder supplement D mannose cyclobenzaprine (FLEXERIL) 10 mg tablet Take 1 tablet by mouth three times daily as needed for Muscle Spasm. fluticasone (FLONASE) 50 mcg/actuation nasal spray Use 2 Sprays in each nostril once daily. Rinse mouth after use. (Patient not taking: Reported on 04/02/2018 ) naproxen (NAPROSYN) 500 mg tablet Take 1 tablet by mouth twice daily as needed for Pain. Take with food. (Patient not taking: Reported on 05/08/2018 ) nitrofurantoin monohydrate and macrocrystal (MACROBID) 100 mg capsule Take 1 capsule by mouth twice daily for 7 days. FOR 7 DAYS. No current facility-administered medications for this visit. ALLERGIES: ALLERGIES Allergen Reactions - Benedryl [Diphenhyd* Other: See Comments hyperactive - Celebrex [Celecoxib] upsets stomach after prolonged use ie. 6 weeks - Erythromycin GI Upset - Lisinopril Unknown Cough, hypotension - Prochlorperazine Mental Status Change Agitation, felt ill - Toradol [Ketorolac] Vomiting - Vesicare [Solifenac* Rash PAST MEDICAL HISTORY Diagnosis Date - Acute gastritis without mention of hemorrhage - Anxiety - Benign neoplasm of stomach - Cervical disc disorder with radiculopathy 02/18/2010 - Cyst of ovary 01/01/2015 [facility] - see scanned documents - Depressive disorder, not elsewhere classified - Essential thrombocythemia (HCC) 06/02/2016 - GERD (gastroesophageal reflux disease) - Hypertension 08/28/11 - IC (interstitial cystitis) - Impaired fasting glucose 04/02/2010 - Lumbar disc disease with radiculopathy 11/15/2010 - Metabolic syndrome X - Morbid obesity with BMI of 40.0-44.9, adult ([facility]) 08/29/2013 - Renal cyst, left 07/03/2016 18 mm, 06/18/16 - Sciatica - SI (sacroiliac) joint dysfunction 06/04/2011 - Thoracolumbar back pain 07/20/2013 - Unspecified hypothyroidism - Urinary calculus, unspecified Renal stones PAST SURGICAL HISTORY Procedure Laterality Date - CYSTOSCOPY,DIL BLADDER,LOCAL ANESTH 01/18/14 - EGD W/O [facility] SPECIMEN W/BX 04/09/2007 gastritis, gastric polyps - 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 Valadez - PAST SURGICAL HISTORY OF WISDOM TEETH EXTRACTIONS - PAST SURGICAL HISTORY OF 05/2012 bladder hydrodistension X 2 - PAST SURGICAL HISTORY OF 2014 pain injection lumbar- multiple - PAST SURGICAL HISTORY OF Cyst removed from head - REMOVAL GALLBLADDER 1991 Cholecystectomy FAMILY HISTORY Problem Relation Age of Onset - Diabetes Father - Hypertension Father - Cancer Maternal Grandmother Lymphoma - Heart Maternal Grandfather hypertension - Hypertension Brother Social History Marital status: Single Spouse name: Years of education: Number of children: 0 Occupational History Occupation Employer Comment [employer] Social History Main Topics Smoking status: Never Smoker Smokeless tobacco: Never Used Alcohol use: Yes Comment: rarely Drug use: No Sexual activity: Not Currently control/protection: Condom, Pill Reviewed current medications, allergies, past medical history, surgical history, family history and social history today. REVIEW OF SYSTEMS All other reviewed and negative other than HPI. HEALTH MAINTENANCE: Reviewed health maintenance issues today and recommended the following in detail. COLORECTAL CANCER SCREENING,SEE MODIFIER -recommended. INFLUENZA-recommended. VITALS: BP 138/84 Pulse 88 Temp 36.3 ?C (97.3 ?F) (Tympanic) Resp 18 Wt 119.7 kg (264 lb) BMI 45.32 kg/m? Last 4 Encounter Wt Readings: Date: Wt: 05/08/2018 119.7 kg (264 lb) 04/02/2018 121.1 kg (267 lb) 03/19/2018 121.1 kg (267 lb) 03/15/2018 121.6 kg (268 lb) PHYSICAL EXAMINATION: General appearance: Well appearing, alert, in no acute distress, well-hydrated, well nourished. Skin: Skin color, texture, turgor normal, no suspicious rashes or lesions Head: Normocephalic, no masses, lesions, tenderness or abnormalities Eyes: Anicteric sclera. Pupils are equally round and reactive to light. Extraocular movements are intact. Ears: External ears normal, canals clear Nose/Sinuses: Nares normal, septum midline, mucosa normal, no drainage or sinus tenderness Oropharynx: Lips, mucosa, and tongue normal, teeth and gums normal, oropharynx normal Neck: Supple, no adenopathy; thyroid symmetric, normal size, no bruits Lungs: lungs clear to auscultation. No wheezing, rhonchi, rales Heart: RRR without murmur, gallop, or rubs. No ectopy Abdomen: Normal abdominal exam, Abdomen soft, non-tender. Bowel sounds normal. No masses, organomegaly Extremities: No deformities, edema, skin discoloration, clubbing or cyanosis. Good capillary refill. ASSESSMENT/PLAN: 1. Bacterial sinusitis - ICD9: 473.9, 041.9, ICD10: J32.9, B96.89 - Supportive care with plenty of fluids, rest, and analgesia prn. - Follow up in one week if symptoms persist or worsen. - cindiin Bhupinder Castañeda MD CNOV Observed: 05/08/2018 Status: COMPLETED Source: [place] 11:40 AM [facility] REPOSITORY Office Visit (FAMPWS) PAYTON MCQUEEN ([id number]) 1965 F Date Time Provider Department 05/08/18 11:40 AM [facility] During your visit today, we recorded the following information about you: Temperature Pulse Respiration Blood pressure 97.3 degrees 88/minute 18/minute 138/84 Weight 119.7 kg Bhupinder Castañeda MD 05/08/2018 11:57 AM Signed Patient presents with: Sinus Problem: with left ear pain HPI: Patient presents today for office visit for not feeling well. Sick sine last weekend. Went home early from work. Lots of sinus drainage. Some left ear pain. Has sinus pressure on the left side. Some sore throat due to drainage. No shortness of breath. No chest pain. No diarrhea now or vomiting. No fever. MEDICATIONS: Current Outpatient Prescriptions: aspirin, enteric coated (ADULT LOW DOSE ASPIRIN) 81 mg EC tablet Take 1 tablet by mouth once daily. buPROPion XL (WELLBUTRIN XL) 300 mg 24 hr tablet TAKE ONE TABLET BY MOUTH EVERY DAY busPIRone (BUSPAR) 15 mg tablet TAKE ONE TABLET BY MOUTH TWICE DAILY Hydrochlorothiazide 12.5 mg capsule Take 1 capsule by mouth once daily. levothyroxine (SYNTHROID) 125 mcg tablet Take 1 tablet by mouth once daily. metFORMIN (GLUCOPHAGE) 500 mg tablet Take 1 tablet by mouth twice daily with meals. MYRBETRIQ 50 mg Tb24 Take 1 tablet by mouth once daily. Omeprazole 40 mg capsule Take 1 capsule by mouth once daily. SACCHAROMYCES BOULARDII (PROBIOTIC, S.BOULARDII, ORAL) Take by mouth once daily. COMPOUNDED PRESCRIPTION OTC bladder supplement D mannose cyclobenzaprine (FLEXERIL) 10 mg tablet Take 1 tablet by mouth three times daily as needed for Muscle Spasm. fluticasone (FLONASE) 50 mcg/actuation nasal spray Use 2 Sprays in each nostril once daily. Rinse mouth after use. (Patient not taking: Reported on 04/02/2018 ) naproxen (NAPROSYN) 500 mg tablet Take 1 tablet by mouth twice daily as needed for Pain. Take with food. (Patient not taking: Reported on 05/08/2018 ) nitrofurantoin monohydrate and macrocrystal (MACROBID) 100 mg capsule Take 1 capsule by mouth twice daily for 7 days. FOR 7 DAYS. No current facility-administered medications for this visit. ALLERGIES: ALLERGIES Allergen Reactions - Benedryl [Diphenhyd* Other: See Comments hyperactive - Celebrex [Celecoxib] upsets stomach after prolonged use ie. 6 weeks - Erythromycin GI Upset - Lisinopril Unknown Cough, hypotension - Prochlorperazine Mental Status Change Agitation, felt ill - Toradol [Ketorolac] Vomiting - Vesicare [Solifenac* Rash PAST MEDICAL HISTORY Diagnosis Date - Acute gastritis without mention of hemorrhage - Anxiety - Benign neoplasm of stomach - Cervical disc disorder with radiculopathy 02/18/2010 - Cyst of ovary 01/01/2015 [facility] - see scanned documents - Depressive disorder, not elsewhere classified - Essential thrombocythemia (HCC) 06/02/2016 - GERD (gastroesophageal reflux disease) - Hypertension 08/28/11 - IC (interstitial cystitis) - Impaired fasting glucose 04/02/2010 - Lumbar disc disease with radiculopathy 11/15/2010 - Metabolic syndrome X - Morbid obesity with BMI of 40.0-44.9, adult ([facility]) 08/29/2013 - Renal cyst, left 07/03/2016 18 mm, 06/18/16 - Sciatica - SI (sacroiliac) joint dysfunction 06/04/2011 - Thoracolumbar back pain 07/20/2013 - Unspecified hypothyroidism - Urinary calculus, unspecified Renal stones PAST SURGICAL HISTORY Procedure Laterality Date - CYSTOSCOPY,DIL BLADDER,LOCAL ANESTH 01/18/14 - EGD W/O [facility] SPECIMEN W/BX 04/09/2007 gastritis, gastric polyps - 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 REVIEW OF SYSTEMS All other reviewed and negative other than HPI. HEALTH MAINTENANCE: Reviewed health maintenance issues today and recommended the following in detail. COLORECTAL CANCER SCREENING,SEE MODIFIER -recommended. INFLUENZA-recommended. VITALS: BP 138/84 Pulse 88 Temp 36.3 ?C (97.3 ?F) (Tympanic) Resp 18 Wt 119.7 kg (264 lb) BMI 45.32 kg/m? Last 4 Encounter Wt Readings: Date: Wt: 05/08/2018 119.7 kg (264 lb) 04/02/2018 121.1 kg (267 lb) 03/19/2018 121.1 kg (267 lb) 03/15/2018 121.6 kg (268 lb) PHYSICAL EXAMINATION: General appearance: Well appearing, alert, in no acute distress, well-hydrated, well nourished. Skin: Skin color, texture, turgor normal, no suspicious rashes or lesions Head: Normocephalic, no masses, lesions, tenderness or abnormalities Eyes: Anicteric sclera. Pupils are equally round and reactive to light. Extraocular movements are intact. Ears: External ears normal, canals clear Nose/Sinuses: Nares normal, septum midline, mucosa normal, no drainage or sinus tenderness Oropharynx: Lips, mucosa, and tongue normal, teeth and gums normal, oropharynx normal Neck: Supple, no adenopathy; thyroid symmetric, normal size, no bruits Lungs: lungs clear to auscultation. No wheezing, rhonchi, rales Heart: RRR without murmur, gallop, or rubs. No ectopy Abdomen: Normal abdominal exam, Abdomen soft, non-tender. Bowel sounds normal. No masses, organomegaly Extremities: No deformities, edema, skin discoloration, clubbing or cyanosis. Good capillary refill. ASSESSMENT/PLAN: 1. Bacterial sinusitis - ICD9: 473.9, 041.9, ICD10: J32.9, B96.89 - Supportive care with plenty of fluids, rest, and analgesia prn. - Follow up in one week if symptoms persist or worsen. - augmentin Bhupinder Castañeda MD Allergies As of Date: 05/08/2018 Noted Allergy Reaction BENEDRYL (DIPHENHYDRAMINE) 04/25/2009 14 - Other: See Comments Comments: hyperactive CELEBREX (CELECOXIB) 05/28/2005 Comments: upsets stomach after prolonged use ie. 6 weeks ERYTHROMYCIN 02/05/2005 8 - GI Upset LISINOPRIL 01/23/2018 16 - Unknown Comments: Cough, hypotension PROCHLORPERAZINE 09/29/2016 1 - Mental Status Change Comments: Agitation, felt ill TORADOL (KETOROLAC) 01/15/2015 11 - Vomiting VESICARE (SOLIFENACIN) 11/20/2009 2 - Rash Date Reviewed: 04/02/2018 Reviewed by: Aletha Tavarez LPN - Fully Assessed Reason for Visit: Sinus Problem [99] Cmt: with left ear pain Reason For Visit History Recorded Primary Visit Diagnosis:Bacterial sinusitis [J32.9, B96.89] Order(s):amoxicillin-clavulanic acid (AUGMENTIN) 875-125 mg per tabletTake 1 tablet by mouth twice daily for 10 days.Disp: 20 tabletRfl: 0 Prescriptions as of 05/08/2018 Sig: ASPIRIN 81 MG TABLET,DELAYED * Take 1 tablet by mouth once d* BUPROPION XL 300 MG 24 HR TAB TAKE ONE TABLET BY MOUTH EVER* BUSPIRONE 15 MG TABLET TAKE ONE TABLET BY MOUTH TWIC* HYDROCHLOROTHIAZIDE 12.5 MG C* Take 1 capsule by mouth once * LEVOTHYROXINE 125 MCG TABLET Take 1 tablet by mouth once d* METFORMIN 500 MG TABLET Take 1 tablet by mouth twice * MYRBETRIQ 50 MG TABLET,EXTEND* Take 1 tablet by mouth once d* OMEPRAZOLE 40 MG CAPSULE,IGLESIA* Take 1 capsule by mouth once * PROBIOTIC (S.BOULARDII) ORAL Take by mouth once daily. AMOXICILLIN 875 MG-POTASSIUM * Take 1 tablet by mouth twice * COMPOUNDED PRESCRIPTION OTC bladder supplement D weiner* CYCLOBENZAPRINE 10 MG TABLET Take 1 tablet by mouth three * FLUTICASONE 50 MCG/ACTUATION * Use 2 Sprays in each nostril * Patient not taking: Reported on 04/02/2018 NAPROXEN 500 MG TABLET Take 1 tablet by mouth twice * Patient not taking: Reported on 05/08/2018 NITROFURANTOIN MONOHYDRATE AND * Take 1 capsule by mouth twice* Problem List As Of Date 05/08/2018 Noted Resolved Lumbago [M54.5] INVALID FOR*03/26/2016 Hypothyroidism [E03.9] Greater Trochanteric bursitis right [M76.899] INVALID FOR*03/26/2016 Sciatica [M54.30] INVALID FOR*03/26/2016 GENERALIZED ANXIETY DIS [F41.1] INVALID FOR* ESOPHAGEAL REFLUX [K21.9] INVALID FOR* Acute gastritis without mention of hemorrhage [*INVALID FOR*03/26/2016 ADJUSTMENT DISORDER WITH DEPRESSED MOOD [F43.21]INVALID FOR* BENIGN HYPERTENSION [I10] INVALID FOR* Contusion of chest wall [S20.219A] INVALID FOR*03/26/2016 Thoracic or lumbosacral neuritis or radiculitis*INVALID FOR*03/26/2016 Cluster headache syndrome [G44.009] INVALID FOR*03/26/2016 Pelvic pain in female [R10.2] INVALID FOR*03/26/2016 Chronic Interstitial Cystitis [N30.10] INVALID FOR* Cervical radiculopathy [M54.12] INVALID FOR*03/26/2016 Brachial neuritis or radiculitis NOS [M54.12] INVALID FOR*03/26/2016 Cervical disc disorder with radiculopathy [M50.*INVALID FOR*03/26/2016 Impaired glucose tolerance [R73.02] INVALID FOR* Lumbar disc disease with radiculopathy [M51.16] INVALID FOR*03/26/2016 Piriformis syndrome [G57.00] INVALID FOR*03/26/2016 Nonallopathic lesion of sacral region, not else*INVALID FOR*03/26/2016 Avascular necrosis of hip [M87.059] INVALID FOR* SI (sacroiliac) joint dysfunction [M53.3] INVALID FOR*03/26/2016 Obesity, Class III, BMI 40-49.9 (morbid obesity*INVALID FOR* Lumbar facet arthropathy (HCC) [M47.816] INVALID FOR*03/26/2016 Lumbar spondylosis [M47.816] INVALID FOR*03/26/2016 Left shoulder strain [S46.912A] INVALID FOR*10/19/2014 Left renal mass [N28.89] INVALID FOR*03/26/2016 Thoracolumbar back pain [M54.5, M54.6] INVALID FOR*03/26/2016 Unspecified gastritis and gastroduodenitis with*INVALID FOR*03/26/2016 Right sided abdominal pain [R10.9] INVALID FOR*03/26/2016 Strain of right knee and leg [S86.911A] INVALID FOR*03/26/2016 Overactive bladder [N32.81] INVALID FOR* Essential thrombocythemia (HCC) [D47.3] INVALID FOR* Leukocytosis [D72.829] INVALID FOR* More... Primary cancer of left kidney (HCC) [C64.2] INVALID FOR* Popliteal cyst, right [M71.21] INVALID FOR* Acute lumbar myofascial strain [S39.012A] INVALID FOR* Prescriptions ordered this encounter Disp Refills Start End AMOXICILLIN 875 MG-POTASSIUM CLAVULA* 20 t* 0 05/08/2018 05/18/2018 Route: ORAL Sig: Take 1 tablet by mouth twice daily for 10 days. Letter [facility] Department of Family Medicine [address], [place] [address] Payton Mcqueen [address] [place] [address] Clinic #: [id number] 05/08/2018 Off work 05/05-05/07/18 due to illness Sincerely: Bhupinder Castañeda MD Encounter Status:Closed by BHUPINDER CASTAÑEDA MD on 05/08/18 Observed: 05/03/2018 Status: F Source: [place] URINE CULTURE 2:32 PM [facility] REPOSITORY Sp. Request/Comment: - Best Practice Alert: To ensure optimal transport conditions and accurate culture results transfer urine specimens to lloyd top C and S preservative tube. Culture Result - 10,000 - <50,000 CFU/ml Normal urogenital bernabe Performed By: #### URCUL #### [facility] [address] [place], [place] [address] INITAL EVALUATION (1) Observed: 04/08/2018 Status: F Source: [place] - PT 9:07 AM [facility] REPOSITORY [facility] [address] [place] [address] Fax REHABILITATION SERVICES INITIAL EVALUATION MR#: [id number] Acct: [id number] Name: PAYTON MCQUEEN Rep #: [id number] : 1965 52 From: Niels Trinidad DPT, OCS, CSCS Referring Dr.: Status: REG R Insurance: [employer] SELF PAY INSURANCE Patient's Visit Information PAYTON MCQUEEN is a 52 year old F referred to Physical Therapy by LELA OROSCO with a diagnosis of LBP. Date of Evaluation: 04/07/18 Physical Therapist: Niels Trinidad DPT, OC - Visit Plan Frequency: 3x /Week Duration: 4-6 Weeks Plan: 3x/week for 2-4 weeks for: 1. Janice based L/S ext ex adn mobs as needed adn progression of forces. 2. Core strength adn postural sterngth to HEP. 3. Body mechanics as she feels better. 4. ES and MH if needed. - Subjective Subjective: R LBP and into outside of hip pain. started 3 weeks ago in the middle of the night bending down to put dogs leash on. Couldn't move after that. Didn't work all week. Saw doctor who wrote her off for the week. Saw chiropractor who did electrodes with MH. It helped. Was put on Naproxen which made her sick. Taking alleve. 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 Bending still hurts. Sitting is not bad unless she sits for too long, 40 minute period is too much. Basic ADLs OK but avoids garbage adn cleaning. Hobbies include walking and playing with dog, hasn't been able to walk the dog. No regualr ex. - Pain R LBP Pain Intensity (Out of 10): 2 Pain Intensity Range: 0, 9 Comment: better am - Objective LB AROM is limited in ext max with pain R, flexion min limited with R pull, SB painful R not L and mildly limited B. Posture is flat lordosis and kyphotic T/S. No tenderness in LB paraspinals. reflexes 2/3 patella and achilles. Sensation LE WNL to gross light touch. no c/o bowel or bladder problems. Strength LE 4-/5 without myotomal abnormalities. Repeated motion: ext PPU, improved ROM and B. Better after sitting in chair with appropriate towel roll lordosis. Trasnfers adn gait are I but slow adn hesitant. - Goals Goal 1:: Patient have 0-1/10 pain only and 95% better overall. Goal Time Frame: 4-6 Weeks Goal 2:: Patient transfer table and chair withotu hesitancy Goal Time Frame: 4-6 Weeks Goal 3:: Patient sleep through the night without waking Goal Time Frame: 4-6 Weeks Goal 4:: I approp HEP to minimize future problems. Goal Time Frame: 4-6 Weeks - Rehabilitation Potential Physical Therapy Diagnosis: LBP likely discal in nature. Rehabilitation Potential: Good - Anticipated Interventions Patient/Client Instruction: Educate patient on: Condition, Plan of Care For the Purpose of:: To decrease pain, To increase ROM, To increase tolerance to activity/condition/position Therapeutic Exercise to Include: Strength training, Passive ROM, Active ROM, Dynamic Lumbar Stabilization, Janice Exercises For the Purpose of:: To decrease pain, To improve muscle performance and motor function, To improve ability of physical actions for home/community/work/leisure Manual Therapy Techniques to Include: Mobilization For the Purpose of:: To increase ROM TENS: Yes Thermo therapy (hot pack): Yes For the Purpose of:: To decrease pain Thank you for the opportunity to evaluate your patient. For Medicare and Medicare HMO plans, please review the plan of care and approve it. It will need to be FAXED BACK to us at [phone] for Medicare purposes. Please let me know if there are questions or concerns regarding this plan of care. Physician Signature: Date: <Electronically signed by Niels Trinidad DPT, OCS, CSCS> 04/08/18 0907 CC: Mae Morton III, MD; LELA OROSCO EBG Signed For Medicare only, by signing this I certify the plan of care. Physicians Signature Date PROGRESS Observed: 04/02/2018 Status: COMPLETED Source: [place] 5:11 PM [facility] [place] REPOSITORY O ID: [id number] Author: Mae Morton III Service: (none) Author Type: Physician Type: Progress Notes Filed: 04/02/2018 6:31 PM Note Text: SUBJECTIVE: This is a 52 year old female that is here today for severe pain R lat hip for past 5 days. Aleve with short term benefit PAST MEDICAL HISTORY Diagnosis Date - Acute gastritis without mention of hemorrhage - Anxiety - Benign neoplasm of stomach - Cervical disc disorder with radiculopathy 02/18/2010 - Cyst of ovary 01/01/2015 [facility] - see scanned documents - Depressive disorder, not elsewhere classified - Essential thrombocythemia (HCC) 06/02/2016 - GERD (gastroesophageal reflux disease) - Hypertension 08/28/11 - IC (interstitial cystitis) - Impaired fasting glucose 04/02/2010 - Lumbar disc disease with radiculopathy 11/15/2010 - Metabolic syndrome X - Morbid obesity with BMI of 40.0-44.9, adult (HCC) 08/29/2013 - Renal cyst, left 07/03/2016 18 mm, 06/18/16 - Sciatica - SI (sacroiliac) joint dysfunction 06/04/2011 - Thoracolumbar back pain 07/20/2013 - Unspecified hypothyroidism - Urinary calculus, unspecified Renal stones Current Outpatient Prescriptions on File Prior to Visit: cyclobenzaprine (FLEXERIL) 10 mg tablet Take 1 tablet by mouth three times daily as needed for Muscle Spasm. MYRBETRIQ 50 mg Tb24 Take 1 tablet by mouth once daily. busPIRone (BUSPAR) 15 mg tablet Take 1 tablet by mouth twice daily. COMPOUNDED PRESCRIPTION OTC bladder supplement D mannose Hydrochlorothiazide 12.5 mg capsule Take 1 capsule by mouth once daily. metFORMIN (GLUCOPHAGE) 500 mg tablet Take 1 tablet by mouth twice daily with meals. Omeprazole 40 mg capsule Take 1 capsule by mouth once daily. buPROPion XL (WELLBUTRIN XL) 300 mg 24 hr tablet TAKE ONE TABLET BY MOUTH EVERY DAY levothyroxine (SYNTHROID) 125 mcg tablet Take 1 tablet by mouth once daily. aspirin, enteric coated (ADULT LOW DOSE ASPIRIN) 81 mg EC tablet Take 1 tablet by mouth once daily. SACCHAROMYCES BOULARDII (PROBIOTIC, S.BOULARDII, ORAL) Take by mouth once daily. fluticasone (FLONASE) 50 mcg/actuation nasal spray Use 2 Sprays in each nostril once daily. Rinse mouth after use. (Patient not taking: Reported on 04/02/2018 ) No current facility-administered medications on file prior to visit. FAMILY HISTORY Problem Relation Age of Onset - Diabetes Father - Hypertension Father - Cancer Maternal Grandmother Lymphoma - Heart Maternal Grandfather hypertension - Hypertension Brother Social History Substance Use Topics - Smoking status: Never Smoker - Smokeless tobacco: Never Used - Alcohol use Yes Comment: rarely BP 132/62 (BP Site: Left Arm, BP Position: Sitting, BP Cuff Size: Extra Large Adult) Pulse 88 Temp 36.7 ?C (98 ?F) (Left Tympanic) Resp 18 Wt 121.1 kg (267 lb) BMI 45.83 kg/m? . OBJECTIVE: APPEARANCE Well appearing, alert, in no acute distress, well-hydrated, well nourished. and Morbidly obese BACK: Normal exam, no pain to palpation, good flexion and extension EXTREMITIES localized tenderness R greater trochanter. Some improvement with stretching. ASSESSMENT: R trochanteric bursitis PLAN: naprosyn 500mg twice/day for pain gentle stretching of hips follow up with PT careful activity Mae MortonLIU MD, III MD CNOV Observed: 04/02/2018 Status: COMPLETED Source: [place] 4:40 PM [facility] REPOSITORY Office Visit (FAMPWS) PAYTON MCQUEEN ([id number]) 1965 F Date Time Provider Department 04/02/18 4:40 PM [facility] IIIWS During your visit today, we recorded the following information about you: Temperature Pulse Respiration Blood pressure 98 degrees 88/minute 18/minute 132/62 Weight 121.1 kg Mae Morton III MD 04/02/2018 6:31 PM Signed SUBJECTIVE: This is a 52 year old female that is here today for severe pain R lat hip for past 5 days. Aleve with short term benefit PAST MEDICAL HISTORY Diagnosis Date - Acute gastritis without mention of hemorrhage - Anxiety - Benign neoplasm of stomach - Cervical disc disorder with radiculopathy 02/18/2010 - Cyst of ovary 01/01/2015 [facility] - see scanned documents - Depressive disorder, not elsewhere classified - Essential thrombocythemia (HCC) 06/02/2016 - GERD (gastroesophageal reflux disease) - Hypertension 08/28/11 - IC (interstitial cystitis) - Impaired fasting glucose 04/02/2010 - Lumbar disc disease with radiculopathy 11/15/2010 - Metabolic syndrome X - Morbid obesity with BMI of 40.0-44.9, adult (HCC) 08/29/2013 - Renal cyst, left 07/03/2016 18 mm, 06/18/16 - Sciatica - SI (sacroiliac) joint dysfunction 06/04/2011 - Thoracolumbar back pain 07/20/2013 - Unspecified hypothyroidism - Urinary calculus, unspecified Renal stones Current Outpatient Prescriptions on File Prior to Visit: cyclobenzaprine (FLEXERIL) 10 mg tablet Take 1 tablet by mouth three times daily as needed for Muscle Spasm. MYRBETRIQ 50 mg Tb24 Take 1 tablet by mouth once daily. busPIRone (BUSPAR) 15 mg tablet Take 1 tablet by mouth twice daily. COMPOUNDED PRESCRIPTION OTC bladder supplement D mannose Hydrochlorothiazide 12.5 mg capsule Take 1 capsule by mouth once daily. metFORMIN (GLUCOPHAGE) 500 mg tablet Take 1 tablet by mouth twice daily with meals. Omeprazole 40 mg capsule Take 1 capsule by mouth once daily. buPROPion XL (WELLBUTRIN XL) 300 mg 24 hr tablet TAKE ONE TABLET BY MOUTH EVERY DAY levothyroxine (SYNTHROID) 125 mcg tablet Take 1 tablet by mouth once daily. aspirin, enteric coated (ADULT LOW DOSE ASPIRIN) 81 mg EC tablet Take 1 tablet by mouth once daily. SACCHAROMYCES BOULARDII (PROBIOTIC, S.BOULARDII, ORAL) Take by mouth once daily. fluticasone (FLONASE) 50 mcg/actuation nasal spray Use 2 Sprays in each nostril once daily. Rinse mouth after use. (Patient not taking: Reported on 04/02/2018 ) No current facility-administered medications on file prior to visit. FAMILY HISTORY Problem Relation Age of Onset - Diabetes Father - Hypertension Father - Cancer Maternal Grandmother Lymphoma - Heart Maternal Grandfather hypertension - Hypertension Brother Social History Substance Use Topics - Smoking status: Never Smoker - Smokeless tobacco: Never Used - Alcohol use Yes Comment: rarely BP 132/62 (BP Site: Left Arm, BP Position: Sitting, BP Cuff Size: Extra Large Adult) Pulse 88 Temp 36.7 ?C (98 ?F) (Left Tympanic) Resp 18 Wt 121.1 kg (267 lb) BMI 45.83 kg/m? . OBJECTIVE: APPEARANCE Well appearing, alert, in no acute distress, well- hydrated, well nourished. and Morbidly obese BACK: Normal exam, no pain to palpation, good flexion and extension EXTREMITIES localized tenderness R greater trochanter. Some improvement with stretching. ASSESSMENT: R trochanteric bursitis PLAN: naprosyn 500mg twice/day for pain gentle stretching of hips follow up with PT careful activity LIU Kumar MD, III MD Frank A Cebul, III MD 04/02/2018 5:23 PM Signed PLAN: naprosyn 500mg twice/day for pain gentle stretching of hips follow up with PT careful activity Mae Morton III MD Allergies As of Date: 04/02/2018 Noted Allergy Reaction BENEDRYL (DIPHENHYDRAMINE) 04/25/2009 14 - Other: See Comments Comments: hyperactive CELEBREX (CELECOXIB) 05/28/2005 Comments: upsets stomach after prolonged use ie. 6 weeks ERYTHROMYCIN 02/05/2005 8 - GI Upset LISINOPRIL 01/23/2018 16 - Unknown Comments: Cough, hypotension PROCHLORPERAZINE 09/29/2016 1 - Mental Status Change Comments: Agitation, felt ill TORADOL (KETOROLAC) 01/15/2015 11 - Vomiting VESICARE (SOLIFENACIN) 11/20/2009 2 - Rash Date Reviewed: 04/02/2018 Reviewed by: Aletha Tavarez LPN - Fully Assessed Reason for Visit: Right Hip Pain [1556] Cmt: x 5 days right hip pain Primary Visit Diagnosis:Trochanteric bursitis of right hip [M70.61] Order(s):naproxen (NAPROSYN) 500 mg tabletTake 1 tablet by mouth twice daily as needed for Pain. Take with food.Disp: 60 tabletRfl: 1 Prescriptions as of 04/02/2018 Sig: CYCLOBENZAPRINE 10 MG TABLET Take 1 tablet by mouth three * MYRBETRIQ 50 MG TABLET,EXTEND* Take 1 tablet by mouth once d* BUSPIRONE 15 MG TABLET Take 1 tablet by mouth twice * COMPOUNDED PRESCRIPTION OTC bladder supplement D weiner* HYDROCHLOROTHIAZIDE 12.5 MG C* Take 1 capsule by mouth once * METFORMIN 500 MG TABLET Take 1 tablet by mouth twice * OMEPRAZOLE 40 MG CAPSULE,IGLESIA* Take 1 capsule by mouth once * BUPROPION XL 300 MG 24 HR TAB TAKE ONE TABLET BY MOUTH EVER* LEVOTHYROXINE 125 MCG TABLET Take 1 tablet by mouth once d* ASPIRIN 81 MG TABLET,DELAYED * Take 1 tablet by mouth once d* PROBIOTIC (S.BOULARDII) ORAL Take by mouth once daily. NAPROXEN 500 MG TABLET Take 1 tablet by mouth twice * FLUTICASONE 50 MCG/ACTUATION * Use 2 Sprays in each nostril * Patient not taking: Reported on 04/02/2018 Problem List As Of Date 04/02/2018 Noted Resolved Lumbago [M54.5] INVALID FOR*03/26/2016 Hypothyroidism [E03.9] Greater Trochanteric bursitis right [M76.899] INVALID FOR*03/26/2016 Sciatica [M54.30] INVALID FOR*03/26/2016 GENERALIZED ANXIETY DIS [F41.1] INVALID FOR* ESOPHAGEAL REFLUX [K21.9] INVALID FOR* Acute gastritis without mention of hemorrhage [*INVALID FOR*03/26/2016 ADJUSTMENT DISORDER WITH DEPRESSED MOOD [F43.21]INVALID FOR* BENIGN HYPERTENSION [I10] INVALID FOR* Contusion of chest wall [S20.219A] INVALID FOR*03/26/2016 Thoracic or lumbosacral neuritis or radiculitis*INVALID FOR*03/26/2016 Cluster headache syndrome [G44.009] INVALID FOR*03/26/2016 Pelvic pain in female [R10.2] INVALID FOR*03/26/2016 Chronic Interstitial Cystitis [N30.10] INVALID FOR* Cervical radiculopathy [M54.12] INVALID FOR*03/26/2016 Brachial neuritis or radiculitis NOS [M54.12] INVALID FOR*03/26/2016 Cervical disc disorder with radiculopathy [M50.*INVALID FOR*03/26/2016 Impaired glucose tolerance [R73.02] INVALID FOR* Lumbar disc disease with radiculopathy [M51.16] INVALID FOR*03/26/2016 Piriformis syndrome [G57.00] INVALID FOR*03/26/2016 Nonallopathic lesion of sacral region, not else*INVALID FOR*03/26/2016 Avascular necrosis of hip [M87.059] INVALID FOR* SI (sacroiliac) joint dysfunction [M53.3] INVALID FOR*03/26/2016 Obesity, Class III, BMI 40-49.9 (morbid obesity*INVALID FOR* Lumbar facet arthropathy (HCC) [M47.816] INVALID FOR*03/26/2016 Lumbar spondylosis [M47.816] INVALID FOR*03/26/2016 Left shoulder strain [S46.912A] INVALID FOR*10/19/2014 Left renal mass [N28.89] INVALID FOR*03/26/2016 Thoracolumbar back pain [M54.5, M54.6] INVALID FOR*03/26/2016 Unspecified gastritis and gastroduodenitis with*INVALID FOR*03/26/2016 Right sided abdominal pain [R10.9] INVALID FOR*03/26/2016 Strain of right knee and leg [S86.911A] INVALID FOR*03/26/2016 Overactive bladder [N32.81] INVALID FOR* Essential thrombocythemia (HCC) [D47.3] INVALID FOR* Leukocytosis [D72.829] INVALID FOR* More... Primary cancer of left kidney (HCC) [C64.2] INVALID FOR* Popliteal cyst, right [M71.21] INVALID FOR* Acute lumbar myofascial strain [S39.012A] INVALID FOR* Other instructions from your clinician: PLAN: naprosyn 500mg twice/day for pain gentle stretching of hips follow up with PT careful activity Mae Morton III MD Prescriptions ordered this encounter Disp Refills Start End NAPROXEN 500 MG TABLET 60 t* 1 04/02/2018 Route: ORAL Sig: Take 1 tablet by mouth twice daily as needed for Pain. Take with food. Encounter Status:Closed by MAE MORTON III, MD on 04/02/18 PROGRESS Observed: 03/19/2018 Status: COMPLETED Source: [place] 10:10 AM [facility] REPOSITORY HNO ID: [id number] Author: Lela Orosco Service: (none) Author Type: Nurse Practitioner Type: Progress Notes Filed: 03/19/2018 11:21 AM Note Text: 03/19/2018 Patient presents with: Back Pain SUBJECTIVE: This is a 52 year old that is here today for continues right lower back pain without sciatica. She states that she does feel some improvement with the spasms taking the muscle relaxer and advil, but pain can still be severe with movement. She states that she is also doing her stretches that were recommended. She denies numbness, tingling, saddle anesthesia, loss of bowel or bladder. She is able to walk, but and turning or bending triggers a sharp localized pain. She can reproduce the pain with palpation. Se would like to know if once she is better she would be ok to try aram chi. PAST MEDICAL HISTORY Diagnosis Date - Acute gastritis without mention of hemorrhage - Anxiety - Benign neoplasm of stomach - Cervical disc disorder with radiculopathy 02/18/2010 - Cyst of ovary 01/01/2015 [facility] - see scanned documents - Depressive disorder, not elsewhere classified - Essential thrombocythemia (HCC) 06/02/2016 - GERD (gastroesophageal reflux disease) - Hypertension 08/28/11 - IC (interstitial cystitis) - Impaired fasting glucose 04/02/2010 - Lumbar disc disease with radiculopathy 11/15/2010 - Metabolic syndrome X - Morbid obesity with BMI of 40.0-44.9, adult (HCC) 08/29/2013 - Renal cyst, left 07/03/2016 18 mm, 06/18/16 - Sciatica - SI (sacroiliac) joint dysfunction 06/04/2011 - Thoracolumbar back pain 07/20/2013 - Unspecified hypothyroidism - Urinary calculus, unspecified Renal stones ALLERGIES Benedryl [Diphenhydramine]; Celebrex [Celecoxib]; Erythromycin; Lisinopril; Prochlorperazine; Toradol [Ketorolac]; Vesicare [Solifenacin] MEDICATIONS Current Outpatient Prescriptions: cyclobenzaprine (FLEXERIL) 10 mg tablet Take 1 tablet by mouth three times daily as needed for Muscle Spasm. MYRBETRIQ 50 mg Tb24 Take 1 tablet by mouth once daily. busPIRone (BUSPAR) 15 mg tablet Take 1 tablet by mouth twice daily. COMPOUNDED PRESCRIPTION OTC bladder supplement D mannose Hydrochlorothiazide 12.5 mg capsule Take 1 capsule by mouth once daily. metFORMIN (GLUCOPHAGE) 500 mg tablet Take 1 tablet by mouth twice daily with meals. Omeprazole 40 mg capsule Take 1 capsule by mouth once daily. buPROPion XL (WELLBUTRIN XL) 300 mg 24 hr tablet TAKE ONE TABLET BY MOUTH EVERY DAY levothyroxine (SYNTHROID) 125 mcg tablet Take 1 tablet by mouth once daily. aspirin, enteric coated (ADULT LOW DOSE ASPIRIN) 81 mg EC tablet Take 1 tablet by mouth once daily. SACCHAROMYCES BOULARDII (PROBIOTIC, S.BOULARDII, ORAL) Take by mouth once daily. fluticasone (FLONASE) 50 mcg/actuation nasal spray Use 2 Sprays in each nostril once daily. Rinse mouth after use. No current facility-administered medications for this visit. Medications and allergies reviewed by this provider. SOCIAL HISTORY Social History Marital status: Single Spouse name: Years of education: Number of children: 0 Occupational History Occupation Employer Comment [employer] Social History Main Topics Smoking status: Never Smoker Smokeless tobacco: Never Used Alcohol use: Yes Comment: rarely Drug use: No Sexual activity: Not Currently control/protection: Condom, Pill REVIEW OF SYSTEMS see HPI OBJECTIVE: BP 130/82 Pulse 64 Resp 20 Wt 121.1 kg (267 lb) SpO2 96% BMI 45.83 kg/m? . Vital signs reviewed by this provider. PHYSICAL EXAMINATION: General appearance: Well appearing, alert, in no acute distress, well-hydrated, well nourished. and Obese Skin: Skin color, texture, turgor normal, no suspicious rashes or lesions Back: mild pain to palpation in the LS spine midline and slightly to the right. Observed pain with rotation when she was adjusting her seating position. She requested not to flex or extend d/t fear of pain. Lungs: Lungs clear to auscultation. No wheezing, rhonchi, rales Heart: RRR without murmur, gallop, or rubs. No ectopy ASSESSMENT/PLAN: 1. Acute right-sided low back pain without sciatica - ICD9: 724.2, ICD10: M54.5 - Ice for localized tenderness - Warm moist heat for 20 min three times a day - Medrol dose pack, stop NSAIDs while on medrol - Muscle relaxant- see orders previously prescribed - PT consult - Patient given instructions use of medications as ordered, intermittent rest, back care exercise program, weight loss, improved posture, proper lifting techniques, intermittent use of heat and avoiding sleeping on a heating pad - Follow up in PRN or sooner if symptoms persist or worsen - CONSULT TO PHYSICAL THERAPY - METHYLPREDNISOLONE 4 MG TABLETS IN A DOSE PACK Lela Orosco APRN.BUD CNOV Observed: 03/19/2018 Status: COMPLETED Source: [place] 10:00 AM [facility] REPOSITORY Office Visit (FAMPWS) PAYTON MCQUEEN ([id number]) 1965 F Date Time Provider Department 03/19/18 10:00 AM LELA OROSCO (BUD) FAMPWS During your visit today, we recorded the following information about you: Pulse Respiration Blood pressure Weight 64/minute 20/minute 130/82 121.1 kg Lela OroscoLEIGH.TOBACCO DRUMMER 03/19/2018 11:21 AM Signed 03/19/2018 Patient presents with: Back Pain SUBJECTIVE: This is a 52 year old that is here today for continues right lower back pain without sciatica. She states that she does feel some improvement with the spasms taking the muscle relaxer and advil, but pain can still be severe with movement. She states that she is also doing her stretches that were recommended. She denies numbness, tingling, saddle anesthesia, loss of bowel or bladder. She is able to walk, but and turning or bending triggers a sharp localized pain. She can reproduce the pain with palpation. Se would like to know if once she is better she would be ok to try aram chi. PAST MEDICAL HISTORY Diagnosis Date - Acute gastritis without mention of hemorrhage - Anxiety - Benign neoplasm of stomach - Cervical disc disorder with radiculopathy 02/18/2010 - Cyst of ovary 01/01/2015 [facility] - see scanned documents - Depressive disorder, not elsewhere classified - Essential thrombocythemia (HCC) 06/02/2016 - GERD (gastroesophageal reflux disease) - Hypertension 08/28/11 - IC (interstitial cystitis) - Impaired fasting glucose 04/02/2010 - Lumbar disc disease with radiculopathy 11/15/2010 - Metabolic syndrome X - Morbid obesity with BMI of 40.0-44.9, adult ([facility]) 08/29/2013 - Renal cyst, left 07/03/2016 18 mm, 06/18/16 - Sciatica - SI (sacroiliac) joint dysfunction 06/04/2011 - Thoracolumbar back pain 07/20/2013 - Unspecified hypothyroidism - Urinary calculus, unspecified Renal stones ALLERGIES Benedryl [Diphenhydramine]; Celebrex [Celecoxib]; Erythromycin; Lisinopril; Prochlorperazine; Toradol [Ketorolac]; Vesicare [Solifenacin] MEDICATIONS Current Outpatient Prescriptions: cyclobenzaprine (FLEXERIL) 10 mg tablet Take 1 tablet by mouth three times daily as needed for Muscle Spasm. MYRBETRIQ 50 mg Tb24 Take 1 tablet by mouth once daily. busPIRone (BUSPAR) 15 mg tablet Take 1 tablet by mouth twice daily. COMPOUNDED PRESCRIPTION OTC bladder supplement D mannose Hydrochlorothiazide 12.5 mg capsule Take 1 capsule by mouth once daily. metFORMIN (GLUCOPHAGE) 500 mg tablet Take 1 tablet by mouth twice daily with meals. Omeprazole 40 mg capsule Take 1 capsule by mouth once daily. buPROPion XL (WELLBUTRIN XL) 300 mg 24 hr tablet TAKE ONE TABLET BY MOUTH EVERY DAY levothyroxine (SYNTHROID) 125 mcg tablet Take 1 tablet by mouth once daily. aspirin, enteric coated (ADULT LOW DOSE ASPIRIN) 81 mg EC tablet Take 1 tablet by mouth once daily. SACCHAROMYCES BOULARDII (PROBIOTIC, S.BOULARDII, ORAL) Take by mouth once daily. fluticasone (FLONASE) 50 mcg/actuation nasal spray Use 2 Sprays in each nostril once daily. Rinse mouth after use. No current facility-administered medications for this visit. Medications and allergies reviewed by this provider. SOCIAL HISTORY Social History Marital status: Single Spouse name: Years of education: Number of children: 0 Occupational History Occupation Employer Comment [employer]* Social History Main Topics Smoking status: Never Smoker Smokeless tobacco: Never Used Alcohol use: Yes Comment: rarely Drug use: No Sexual activity: Not Currently control/protection: Condom, Pill REVIEW OF SYSTEMS see HPI OBJECTIVE: BP 130/82 Pulse 64 Resp 20 Wt 121.1 kg (267 lb) SpO2 96% BMI 45.83 kg/m? . Vital signs reviewed by this provider. PHYSICAL EXAMINATION: General appearance: Well appearing, alert, in no acute distress, well-hydrated, well nourished. and Obese Skin: Skin color, texture, turgor normal, no suspicious rashes or lesions Back: mild pain to palpation in the LS spine midline and slightly to the right. Observed pain with rotation when she was adjusting her seating position. She requested not to flex or extend d/t fear of pain. Lungs: Lungs clear to auscultation. No wheezing, rhonchi, rales Heart: RRR without murmur, gallop, or rubs. No ectopy ASSESSMENT/PLAN: 1. Acute right-sided low back pain without sciatica - ICD9: 724.2, ICD10: M54.5 - Ice for localized tenderness - Warm moist heat for 20 min three times a day - Medrol dose pack, stop NSAIDs while on medrol - Muscle relaxant- see orders previously prescribed - PT consult - Patient given instructions use of medications as ordered, intermittent rest, back care exercise program, weight loss, improved posture, proper lifting techniques, intermittent use of heat and avoiding sleeping on a heating pad - Follow up in PRN or sooner if symptoms persist or worsen - CONSULT TO PHYSICAL THERAPY - METHYLPREDNISOLONE 4 MG TABLETS IN A DOSE PACK Lela Orosco APRN.TOBACCO DRUMMER Referring Provider: SELF [[id number]] Allergies As of Date: 03/19/2018 Noted Allergy Reaction BENEDRYL (DIPHENHYDRAMINE) 04/25/2009 14 - Other: See Comments Comments: hyperactive CELEBREX (CELECOXIB) 05/28/2005 Comments: upsets stomach after prolonged use ie. 6 weeks ERYTHROMYCIN 02/05/2005 8 - GI Upset LISINOPRIL 01/23/2018 16 - Unknown Comments: Cough, hypotension PROCHLORPERAZINE 09/29/2016 1 - Mental Status Change Comments: Agitation, felt ill TORADOL (KETOROLAC) 01/15/2015 11 - Vomiting VESICARE (SOLIFENACIN) 11/20/2009 2 - Rash Date Reviewed: 03/19/2018 Reviewed by: Cammy Chairez) CARMELITA Marvin - Fully Assessed Reason for Visit: Back Pain [12] Primary Visit Diagnosis:Acute right-sided low back pain without sciatica [M54.5] Order(s):CONSULT TO PHYSICAL THERAPY [9032] Order #: [id number]: 1 methylPREDNISolone (MEDROL, KATIE,) 4 mg Dose-PackFollow dosing instructions, take with food.Disp: 1 PackageRfl: 0 Prescriptions as of 03/19/2018 Sig: CYCLOBENZAPRINE 10 MG TABLET Take 1 tablet by mouth three * MYRBETRIQ 50 MG TABLET,EXTEND* Take 1 tablet by mouth once d* BUSPIRONE 15 MG TABLET Take 1 tablet by mouth twice * COMPOUNDED PRESCRIPTION OTC bladder supplement D weiner* HYDROCHLOROTHIAZIDE 12.5 MG C* Take 1 capsule by mouth once * METFORMIN 500 MG TABLET Take 1 tablet by mouth twice * OMEPRAZOLE 40 MG CAPSULE,IGLESIA* Take 1 capsule by mouth once * BUPROPION XL 300 MG 24 HR TAB TAKE ONE TABLET BY MOUTH EVER* LEVOTHYROXINE 125 MCG TABLET Take 1 tablet by mouth once d* ASPIRIN 81 MG TABLET,DELAYED * Take 1 tablet by mouth once d* PROBIOTIC (S.BOULARDII) ORAL Take by mouth once daily. METHYLPREDNISOLONE 4 MG TABLE* Follow dosing instructions, t* FLUTICASONE 50 MCG/ACTUATION * Use 2 Sprays in each nostril * Problem List As Of Date 03/19/2018 Noted Resolved Lumbago [M54.5] INVALID FOR*03/26/2016 Hypothyroidism [E03.9] Greater Trochanteric bursitis right [M76.899] INVALID FOR*03/26/2016 Sciatica [M54.30] INVALID FOR*03/26/2016 GENERALIZED ANXIETY DIS [F41.1] INVALID FOR* ESOPHAGEAL REFLUX [K21.9] INVALID FOR* Acute gastritis without mention of hemorrhage [*INVALID FOR*03/26/2016 ADJUSTMENT DISORDER WITH DEPRESSED MOOD [F43.21]INVALID FOR* BENIGN HYPERTENSION [I10] INVALID FOR* Contusion of chest wall [S20.219A] INVALID FOR*03/26/2016 Thoracic or lumbosacral neuritis or radiculitis*INVALID FOR*03/26/2016 Cluster headache syndrome [G44.009] INVALID FOR*03/26/2016 Pelvic pain in female [R10.2] INVALID FOR*03/26/2016 Chronic Interstitial Cystitis [N30.10] INVALID FOR* Cervical radiculopathy [M54.12] INVALID FOR*03/26/2016 Brachial neuritis or radiculitis NOS [M54.12] INVALID FOR*03/26/2016 Cervical disc disorder with radiculopathy [M50.*INVALID FOR*03/26/2016 Impaired glucose tolerance [R73.02] INVALID FOR* Lumbar disc disease with radiculopathy [M51.16] INVALID FOR*03/26/2016 Piriformis syndrome [G57.00] INVALID FOR*03/26/2016 Nonallopathic lesion of sacral region, not else*INVALID FOR*03/26/2016 Avascular necrosis of hip [M87.059] INVALID FOR* SI (sacroiliac) joint dysfunction [M53.3] INVALID FOR*03/26/2016 Obesity, Class III, BMI 40-49.9 (morbid obesity*INVALID FOR* Lumbar facet arthropathy (HCC) [M47.816] INVALID FOR*03/26/2016 Lumbar spondylosis [M47.816] INVALID FOR*03/26/2016 Left shoulder strain [S46.912A] INVALID FOR*10/19/2014 Left renal mass [N28.89] INVALID FOR*03/26/2016 Thoracolumbar back pain [M54.5, M54.6] INVALID FOR*03/26/2016 Unspecified gastritis and gastroduodenitis with*INVALID FOR*03/26/2016 Right sided abdominal pain [R10.9] INVALID FOR*03/26/2016 Strain of right knee and leg [S86.911A] INVALID FOR*03/26/2016 Overactive bladder [N32.81] INVALID FOR* Essential thrombocythemia (HCC) [D47.3] INVALID FOR* Leukocytosis [D72.829] INVALID FOR* More... Primary cancer of left kidney (HCC) [C64.2] INVALID FOR* Popliteal cyst, right [M71.21] INVALID FOR* Acute lumbar myofascial strain [S39.012A] INVALID FOR* Prescriptions ordered this encounter Disp Refills Start End METHYLPREDNISOLONE 4 MG TABLETS IN A* 1 Pa* 0 03/19/2018 03/25/2018 Sig: Follow dosing instructions, take with food. Encounter Status:Closed by LELA OROSCO on 03/19/18 PROGRESS Observed: 03/15/2018 Status: COMPLETED Source: [place] 4:41 PM [facility] [place] REPOSITORY O ID: [id number] Author: Mae Morton III Service: (none) Author Type: Physician Type: Progress Notes Filed: 03/15/2018 6:46 PM Note Text: SUBJECTIVE: This is a 52 year old female that is here today for acute onset of pain in R LS area this AM when she bent forward to put collar on dog--heard a pop. No radiation into lower ext. 4 d. ago she had pain in this area when bending forward to trim toe nails. Advil not helpful PAST MEDICAL HISTORY Diagnosis Date - Acute gastritis without mention of hemorrhage - Anxiety - Benign neoplasm of stomach - Cervical disc disorder with radiculopathy 02/18/2010 - Cyst of ovary 01/01/2015 [facility] - see scanned documents - Depressive disorder, not elsewhere classified - Essential thrombocythemia (HCC) 06/02/2016 - GERD (gastroesophageal reflux disease) - Hypertension 08/28/11 - IC (interstitial cystitis) - Impaired fasting glucose 04/02/2010 - Lumbar disc disease with radiculopathy 11/15/2010 - Metabolic syndrome X - Morbid obesity with BMI of 40.0-44.9, adult (HCC) 08/29/2013 - Renal cyst, left 07/03/2016 18 mm, 06/18/16 - Sciatica - SI (sacroiliac) joint dysfunction 06/04/2011 - Thoracolumbar back pain 07/20/2013 - Unspecified hypothyroidism - Urinary calculus, unspecified Renal stones Current Outpatient Prescriptions on File Prior to Visit: MYRBETRIQ 50 mg Tb24 Take 1 tablet by mouth once daily. busPIRone (BUSPAR) 15 mg tablet Take 1 tablet by mouth twice daily. COMPOUNDED PRESCRIPTION OTC bladder supplement D mannose Hydrochlorothiazide 12.5 mg capsule Take 1 capsule by mouth once daily. metFORMIN (GLUCOPHAGE) 500 mg tablet Take 1 tablet by mouth twice daily with meals. Omeprazole 40 mg capsule Take 1 capsule by mouth once daily. buPROPion XL (WELLBUTRIN XL) 300 mg 24 hr tablet TAKE ONE TABLET BY MOUTH EVERY DAY levothyroxine (SYNTHROID) 125 mcg tablet Take 1 tablet by mouth once daily. aspirin, enteric coated (ADULT LOW DOSE ASPIRIN) 81 mg EC tablet Take 1 tablet by mouth once daily. SACCHAROMYCES BOULARDII (PROBIOTIC, S.BOULARDII, ORAL) Take by mouth once daily. fluticasone (FLONASE) 50 mcg/actuation nasal spray Use 2 Sprays in each nostril once daily. Rinse mouth after use. (Patient not taking: Reported on 01/23/2018 ) No current facility-administered medications on file prior to visit. FAMILY HISTORY Problem Relation Age of Onset - Diabetes Father - Hypertension Father - Cancer Maternal Grandmother Lymphoma - Heart Maternal Grandfather hypertension - Hypertension Brother Social History Substance Use Topics - Smoking status: Never Smoker - Smokeless tobacco: Never Used - Alcohol use Yes Comment: rarely BP 160/90 Pulse 90 Resp 16 Wt 121.6 kg (268 lb) LMP 01/18/2018 (Approximate) BMI 46.00 kg/m? . OBJECTIVE: APPEARANCE Well appearing, alert, in no acute distress, well-hydrated, well nourished., Morbidly obese and Walks stiffly with short stride BACK: Tenderness with palpating the right paravertebral LS area near the SI joint. Forward flexion does cause pain. Mild hyperextension causes pain. No radiation of pain into the lower extremities. ASSESSMENT: acute lumbar strain hypertension--not at goal due to pain PLAN: back extension exercises 5 repetitions with 5 sec hold x 5 sets/day torso twists 5 repetitions with 10 sec hold x 5 sets/day flexeril 10mg three times/day as needed for muscle spasm off work 03/15-. May try to return to work on 03/17. Careful bending forward nurse bp check in 2 wks recommend annual flu shot LIU Kumar MD, III MD CNOV Observed: 03/15/2018 Status: COMPLETED Source: [place] 4:00 PM [facility] REPOSITORY Office Visit (FAMPWS) PAYTON MCQUEEN ([id number]) 1965 F Date Time Provider Department 03/15/18 4:00 PM MAE MORTON III During your visit today, we recorded the following information about you: Pulse Respiration Blood pressure Weight 90/minute 16/minute 160/90 121.6 kg Last Period 01/18/18 Mae Morton III MD 03/15/2018 6:46 PM Signed SUBJECTIVE: This is a 52 year old female that is here today for acute onset of pain in R LS area this AM when she bent forward to put collar on dog--heard a pop. No radiation into lower ext. 4 d. ago she had pain in this area when bending forward to trim toe nails. Advil not helpful PAST MEDICAL HISTORY Diagnosis Date - Acute gastritis without mention of hemorrhage - Anxiety - Benign neoplasm of stomach - Cervical disc disorder with radiculopathy 02/18/2010 - Cyst of ovary 01/01/2015 [facility] - see scanned documents - Depressive disorder, not elsewhere classified - Essential thrombocythemia (HCC) 06/02/2016 - GERD (gastroesophageal reflux disease) - Hypertension 08/28/11 - IC (interstitial cystitis) - Impaired fasting glucose 04/02/2010 - Lumbar disc disease with radiculopathy 11/15/2010 - Metabolic syndrome X - Morbid obesity with BMI of 40.0-44.9, adult (HCC) 08/29/2013 - Renal cyst, left 07/03/2016 18 mm, 06/18/16 - Sciatica - SI (sacroiliac) joint dysfunction 06/04/2011 - Thoracolumbar back pain 07/20/2013 - Unspecified hypothyroidism - Urinary calculus, unspecified Renal stones Current Outpatient Prescriptions on File Prior to Visit: MYRBETRIQ 50 mg Tb24 Take 1 tablet by mouth once daily. busPIRone (BUSPAR) 15 mg tablet Take 1 tablet by mouth twice daily. COMPOUNDED PRESCRIPTION OTC bladder supplement D mannose Hydrochlorothiazide 12.5 mg capsule Take 1 capsule by mouth once daily. metFORMIN (GLUCOPHAGE) 500 mg tablet Take 1 tablet by mouth twice daily with meals. Omeprazole 40 mg capsule Take 1 capsule by mouth once daily. buPROPion XL (WELLBUTRIN XL) 300 mg 24 hr tablet TAKE ONE TABLET BY MOUTH EVERY DAY levothyroxine (SYNTHROID) 125 mcg tablet Take 1 tablet by mouth once daily. aspirin, enteric coated (ADULT LOW DOSE ASPIRIN) 81 mg EC tablet Take 1 tablet by mouth once daily. SACCHAROMYCES BOULARDII (PROBIOTIC, S.BOULARDII, ORAL) Take by mouth once daily. fluticasone (FLONASE) 50 mcg/actuation nasal spray Use 2 Sprays in each nostril once daily. Rinse mouth after use. (Patient not taking: Reported on 01/23/2018 ) No current facility-administered medications on file prior to visit. FAMILY HISTORY Problem Relation Age of Onset - Diabetes Father - Hypertension Father - Cancer Maternal Grandmother Lymphoma - Heart Maternal Grandfather hypertension - Hypertension Brother Social History Substance Use Topics - Smoking status: Never Smoker - Smokeless tobacco: Never Used - Alcohol use Yes Comment: rarely BP 160/90 Pulse 90 Resp 16 Wt 121.6 kg (268 lb) LMP 01/18/2018 (Approximate) BMI 46.00 kg/m? . OBJECTIVE: APPEARANCE Well appearing, alert, in no acute distress, well- hydrated, well nourished., Morbidly obese and Walks stiffly with short stride BACK: Tenderness with palpating the right paravertebral LS area near the SI joint. Forward flexion does cause pain. Mild hyperextension causes pain. No radiation of pain into the lower extremities. ASSESSMENT: acute lumbar strain hypertension--not at goal due to pain PLAN: back extension exercises 5 repetitions with 5 sec hold x 5 sets/day torso twists 5 repetitions with 10 sec hold x 5 sets/day flexeril 10mg three times/day as needed for muscle spasm off work . May try to return to work on 03/17. Careful bending forward nurse bp check in 2 wks recommend annual flu shot LIU Kumar MD, III MD Frank A Cebul, III MD 03/15/2018 4:55 PM Signed PLAN: back extension exercises 5 repetitions with 5 sec hold x 5 sets/day torso twists 5 repetitions with 10 sec hold x 5 sets/day flexeril 10mg three times/day as needed for muscle spasm off work . May try to return to work on 03/17. Careful bending forward nurse bp check in 2 wks Mae Morton III MD Referring Provider: SELF [[id number]] Allergies As of Date: 03/15/2018 Noted Allergy Reaction BENEDRYL (DIPHENHYDRAMINE) 04/25/2009 14 - Other: See Comments Comments: hyperactive CELEBREX (CELECOXIB) 05/28/2005 Comments: upsets stomach after prolonged use ie. 6 weeks ERYTHROMYCIN 02/05/2005 8 - GI Upset LISINOPRIL 01/23/2018 16 - Unknown Comments: Cough, hypotension PROCHLORPERAZINE 09/29/2016 1 - Mental Status Change Comments: Agitation, felt ill TORADOL (KETOROLAC) 01/15/2015 11 - Vomiting VESICARE (SOLIFENACIN) 11/20/2009 2 - Rash Date Reviewed: 03/15/2018 Reviewed by: Vicky ([facility]) CARMELITA Weathers - Fully Assessed Reason for Visit: Pulled muscle [Other] Cmt: lower right side of back, happened last night Primary Visit Diagnosis:Essential hypertension, benign [I10] Other Visit Diagnosis:Acute myofascial strain of lumbar region, initial encounter [S39.012A] Order(s):cyclobenzaprine (FLEXERIL) 10 mg tabletTake 1 tablet by mouth three times daily as needed for Muscle Spasm.Disp: 30 tabletRfl: 0 Prescriptions as of 03/15/2018 Sig: MYRBETRIQ 50 MG TABLET,EXTEND* Take 1 tablet by mouth once d* BUSPIRONE 15 MG TABLET Take 1 tablet by mouth twice * COMPOUNDED PRESCRIPTION OTC bladder supplement D weiner* HYDROCHLOROTHIAZIDE 12.5 MG C* Take 1 capsule by mouth once * METFORMIN 500 MG TABLET Take 1 tablet by mouth twice * OMEPRAZOLE 40 MG CAPSULE,IGLESIA* Take 1 capsule by mouth once * BUPROPION XL 300 MG 24 HR TAB TAKE ONE TABLET BY MOUTH EVER* LEVOTHYROXINE 125 MCG TABLET Take 1 tablet by mouth once d* ASPIRIN 81 MG TABLET,DELAYED * Take 1 tablet by mouth once d* PROBIOTIC (S.BOULARDII) ORAL Take by mouth once daily. CYCLOBENZAPRINE 10 MG TABLET Take 1 tablet by mouth three * FLUTICASONE 50 MCG/ACTUATION * Use 2 Sprays in each nostril * Patient not taking: Reported on 01/23/2018 Problem List As Of Date 03/15/2018 Noted Resolved Lumbago [M54.5] INVALID FOR*03/26/2016 Hypothyroidism [E03.9] Greater Trochanteric bursitis right [M76.899] INVALID FOR*03/26/2016 Sciatica [M54.30] INVALID FOR*03/26/2016 GENERALIZED ANXIETY DIS [F41.1] INVALID FOR* ESOPHAGEAL REFLUX [K21.9] INVALID FOR* Acute gastritis without mention of hemorrhage [*INVALID FOR*03/26/2016 ADJUSTMENT DISORDER WITH DEPRESSED MOOD [F43.21]INVALID FOR* BENIGN HYPERTENSION [I10] INVALID FOR* Contusion of chest wall [S20.219A] INVALID FOR*03/26/2016 Thoracic or lumbosacral neuritis or radiculitis*INVALID FOR*03/26/2016 Cluster headache syndrome [G44.009] INVALID FOR*03/26/2016 Pelvic pain in female [R10.2] INVALID FOR*03/26/2016 Chronic Interstitial Cystitis [N30.10] INVALID FOR* Cervical radiculopathy [M54.12] INVALID FOR*03/26/2016 Brachial neuritis or radiculitis NOS [M54.12] INVALID FOR*03/26/2016 Cervical disc disorder with radiculopathy [M50.*INVALID FOR*03/26/2016 Impaired glucose tolerance [R73.02] INVALID FOR* Lumbar disc disease with radiculopathy [M51.16] INVALID FOR*03/26/2016 Piriformis syndrome [G57.00] INVALID FOR*03/26/2016 Nonallopathic lesion of sacral region, not else*INVALID FOR*03/26/2016 Avascular necrosis of hip [M87.059] INVALID FOR* SI (sacroiliac) joint dysfunction [M53.3] INVALID FOR*03/26/2016 Obesity, Class III, BMI 40-49.9 (morbid obesity*INVALID FOR* Lumbar facet arthropathy (HCC) [M47.816] INVALID FOR*03/26/2016 Lumbar spondylosis [M47.816] INVALID FOR*03/26/2016 Left shoulder strain [S46.912A] INVALID FOR*10/19/2014 Left renal mass [N28.89] INVALID FOR*03/26/2016 Thoracolumbar back pain [M54.5, M54.6] INVALID FOR*03/26/2016 Unspecified gastritis and gastroduodenitis with*INVALID FOR*03/26/2016 Right sided abdominal pain [R10.9] INVALID FOR*03/26/2016 Strain of right knee and leg [S86.911A] INVALID FOR*03/26/2016 Overactive bladder [N32.81] INVALID FOR* Essential thrombocythemia (HCC) [D47.3] INVALID FOR* Leukocytosis [D72.829] INVALID FOR* More... Primary cancer of left kidney (HCC) [C64.2] INVALID FOR* Popliteal cyst, right [M71.21] INVALID FOR* Acute lumbar myofascial strain [S39.012A] INVALID FOR* Other instructions from your clinician: PLAN: back extension exercises 5 repetitions with 5 sec hold x 5 sets/day torso twists 5 repetitions with 10 sec hold x 5 sets/day flexeril 10mg three times/day as needed for muscle spasm off work 03/15-. May try to return to work on 03/17. Careful bending forward nurse bp check in 2 wks Mae Morton III MD Prescriptions ordered this encounter Disp Refills Start End CYCLOBENZAPRINE 10 MG TABLET 30 t* 0 03/15/2018 Route: ORAL Sig: Take 1 tablet by mouth three times daily as needed for Muscle Spasm. Letter Text [facility] Mae Larose MD [address], [place] [address] 03/15/2018 TO WHOM IT MAY CONCERN: This is to confirm that Payton Mcqueen had an appointment and was seen at the [facility] in the Department of Family Medicine by Dr.Frank Thuan MD on 03/15/2018. She is unable to work 03/15-, and may return to work on 03/17. Sincerely yours, Mae Morton III MD Encounter Status:Closed by MAE MORTON III, MD on 03/15/18 PROGRESS Observed: 02/06/2018 Status: COMPLETED Source: [place] 9:24 AM [facility] [place] REPOSITORY HNO ID: [id number] Author: Mae Morton III Service: (none) Author Type: Physician Type: Progress Notes Filed: 02/06/2018 9:50 AM Note Text: SUBJECTIVE: This is a 52 year old female that is here today for 1. lab review: 2. Known high platelets but unable to tolerate hydroxyurea. I reviewed 's recent office note--to continue observing CBC every 6 months. She has a follow-up appointment with him in June. She has elevations of the white blood cell count, red blood cell count, platelets. 3. previous UTI--resolved 4. ch anxiety--atarax seems to work better with anxiety than buspar--discussed increasing atarax dose and weaning buspar PAST MEDICAL HISTORY Diagnosis Date - Acute gastritis without mention of hemorrhage - Anxiety - Benign neoplasm of stomach - Cervical disc disorder with radiculopathy 02/18/2010 - Cyst of ovary 01/01/2015 [facility] - see scanned documents - Depressive disorder, not elsewhere classified - Essential thrombocythemia (HCC) 06/02/2016 - GERD (gastroesophageal reflux disease) - Hypertension 08/28/11 - IC (interstitial cystitis) - Impaired fasting glucose 04/02/2010 - Lumbar disc disease with radiculopathy 11/15/2010 - Metabolic syndrome X - Morbid obesity with BMI of 40.0-44.9, adult (HCC) 08/29/2013 - Renal cyst, left 07/03/2016 18 mm, 06/18/16 - Sciatica - SI (sacroiliac) joint dysfunction 06/04/2011 - Thoracolumbar back pain 07/20/2013 - Unspecified hypothyroidism - Urinary calculus, unspecified Renal stones Current Outpatient Prescriptions on File Prior to Visit: COMPOUNDED PRESCRIPTION OTC bladder supplement D mannose Hydrochlorothiazide 12.5 mg capsule Take 1 capsule by mouth once daily. hydrOXYzine HCl (ATARAX) 25 mg tablet Take 1 tablet by mouth daily at bedtime. metFORMIN (GLUCOPHAGE) 500 mg tablet Take 1 tablet by mouth twice daily with meals. busPIRone (BUSPAR) 15 mg tablet TAKE ONE TABLET BY MOUTH TWICE DAILY Omeprazole 40 mg capsule Take 1 capsule by mouth once daily. buPROPion XL (WELLBUTRIN XL) 300 mg 24 hr tablet TAKE ONE TABLET BY MOUTH EVERY DAY levothyroxine (SYNTHROID) 125 mcg tablet Take 1 tablet by mouth once daily. mirabegron (MYRBETRIQ) 50 mg Tb24 Take 1 tablet by mouth once daily. aspirin, enteric coated (ADULT LOW DOSE ASPIRIN) 81 mg EC tablet Take 1 tablet by mouth once daily. SACCHAROMYCES BOULARDII (PROBIOTIC, S.BOULARDII, ORAL) Take by mouth once daily. fluticasone (FLONASE) 50 mcg/actuation nasal spray Use 2 Sprays in each nostril once daily. Rinse mouth after use. (Patient not taking: Reported on 01/23/2018 ) No current facility-administered medications on file prior to visit. FAMILY HISTORY Problem Relation Age of Onset - Diabetes Father - Hypertension Father - Cancer Maternal Grandmother Lymphoma - Heart Maternal Grandfather hypertension - Hypertension Brother Social History Substance Use Topics - Smoking status: Never Smoker - Smokeless tobacco: Never Used - Alcohol use Yes Comment: rarely BP 142/88 (BP Site: Left Arm, BP Position: Sitting, BP Cuff Size: Large Adult) Pulse 96 Temp 36.4 ?C (97.6 ?F) (Tympanic) Resp 20 Wt 122 kg (269 lb) BMI 46.17 kg/m? . OBJECTIVE: APPEARANCE Well appearing, alert, in no acute distress, well-hydrated, well nourished., Morbidly obese and Appearance: well dressed well groomed, cooperative and pleasant Behavior: good eye contact Speech: fluent and coherent Mood: euthymic Affect: appropriate Perceptions: none Thought process: goal directed Thought Content: normal Intelligence level: normal Insight: good Judgment: good Lab Results for PAYTON MCQUEEN ( ) as of 02/06/2018 09:27 Ref. Range 01/23/2018 10:12 Sodium Latest Ref Range: 136 - 144 mmol/L 138 Potassium Latest Ref Range: 3.7 - 5.1 mmol/L 4.4 Chloride Latest Ref Range: 97 - 105 mmol/L 100 CO2 Latest Ref Range: 22 - 30 mmol/L 21 (L) BUN Latest Ref Range: 7 - 21 mg/dL 6 (L) Creatinine Latest Ref Range: 0.58 - 0.96 mg/dL 0.70 Glucose Latest Ref Range: 74 - 99 mg/dL 123 (H) Protein, Total Latest Ref Range: 6.3 - 8.0 g/dL 6.9 Calcium Latest Ref Range: 8.5 - 10.2 mg/dL 8.3 (L) Albumin Latest Ref Range: 3.9 - 4.9 g/dL 4.0 Bilirubin, Total Latest Ref Range: 0.2 - 1.3 mg/dL 0.4 Alkaline Phosphatase Latest Ref Range: 32 - 117 U/L 89 ALT Latest Ref Range: 7 - 38 U/L 22 AST Latest Ref Range: 13 - 35 U/L 36 (H) Anion Gap Latest Ref Range: 9 - 18 mmol/L 17 eGFR- Unknown >60 eGFR-All Other Races Latest Units: . >60 Hematocrit Latest Ref Range: 36.0 - 46.0 % 41.9 Hemoglobin A1C Latest Ref Range: 4.3 - 5.6 % 5.3 Estimated Average Glucose Latest Units: mg/dL 105 TSH Latest Ref Range: 0.400 - 5.500 uU/mL 1.710 WBC Latest Ref Range: 3.70 - 11.00 k/uL 15.95 (H) RBC Latest Ref Range: 3.90 - 5.20 m/uL 5.43 (H) Hemoglobin Latest Ref Range: 11.5 - 15.5 g/dL 11.9 Platelet Count Latest Ref Range: 150 - 400 k/uL 707 (H) MCV Latest Ref Range: 80.0 - 100.0 fL 77.2 (L) MCH Latest Ref Range: 26.0 - 34.0 pG 21.9 (L) MCHC Latest Ref Range: 30.5 - 36.0 g/dL 28.4 (L) MPV Latest Ref Range: 9.0 - 12.7 fL 9.9 RDW-CV Latest Ref Range: 11.5 - 15.0 % 20.8 (H) Neut% Latest Units: % 79.7 Abs Neut (ANC) Latest Ref Range: 1.45 - 7.50 k/uL 12.71 (H) Lymph% Latest Units: % 12.3 Abs Lymph Latest Ref Range: 1.00 - 4.00 k/uL 1.96 [place]% Latest Units: % 1.8 Abs [place] Latest Ref Range: <0.87 k/uL 0.29 Eosin% Latest Units: % 4.4 Abs Eosin Latest Ref Range: <0.46 k/uL 0.70 (H) Baso% Latest Units: % 1.8 Abs Baso Latest Ref Range: <0.11 k/uL 0.29 (H) Platelet Estimate Unknown Platelet estimate... Anisocytosis Unknown Present Polychromasia Unknown Slight Ovalocytes Unknown Few Diff Type Unknown Manual Diff ASSESSMENT: hypertension--at goal ch anxiety--improved myelodysplastic syndrome with high platelet count PLAN: increase hydroxyzine 25 mg twice/day as needed for anxiety wean and discontinue buspar healthy weight losing diet and regular exercise eat less sugar, bread, potato, pasta, rice, corn, corn syrup, saturated fats same other medications follow up with Dr Mccloud with labs as appointed in June Mae Morton III MD CNOV Observed: 02/06/2018 Status: COMPLETED Source: [place] 9:20 AM [facility] REPOSITORY Office Visit (FAMPWS) PAYTON MCQUEEN ([id number]) 1965 F Date Time Provider Department 02/06/18 9:20 AM MAE MORTON III During your visit today, we recorded the following information about you: Temperature Pulse Respiration Blood pressure 97.6 degrees 96/minute 20/minute 142/88 Weight 122 kg Mae Morton III MD 02/06/2018 9:50 AM Signed SUBJECTIVE: This is a 52 year old female that is here today for 1. lab review: 2. Known high platelets but unable to tolerate hydroxyurea. I reviewed 's recent office note--to continue observing CBC every 6 months. She has a follow-up appointment with him in June. She has elevations of the white blood cell count, red blood cell count, platelets. 3. previous UTI--resolved 4. ch anxiety--atarax seems to work better with anxiety than buspar--discussed increasing atarax dose and weaning buspar PAST MEDICAL HISTORY Diagnosis Date - Acute gastritis without mention of hemorrhage - Anxiety - Benign neoplasm of stomach - Cervical disc disorder with radiculopathy 02/18/2010 - Cyst of ovary 01/01/2015 [facility] - see scanned documents - Depressive disorder, not elsewhere classified - Essential thrombocythemia (HCC) 06/02/2016 - GERD (gastroesophageal reflux disease) - Hypertension 08/28/11 - IC (interstitial cystitis) - Impaired fasting glucose 04/02/2010 - Lumbar disc disease with radiculopathy 11/15/2010 - Metabolic syndrome X - Morbid obesity with BMI of 40.0-44.9, adult (HCC) 08/29/2013 - Renal cyst, left 07/03/2016 18 mm, 06/18/16 - Sciatica - SI (sacroiliac) joint dysfunction 06/04/2011 - Thoracolumbar back pain 07/20/2013 - Unspecified hypothyroidism - Urinary calculus, unspecified Renal stones Current Outpatient Prescriptions on File Prior to Visit: COMPOUNDED PRESCRIPTION OTC bladder supplement D mannose Hydrochlorothiazide 12.5 mg capsule Take 1 capsule by mouth once daily. hydrOXYzine HCl (ATARAX) 25 mg tablet Take 1 tablet by mouth daily at bedtime. metFORMIN (GLUCOPHAGE) 500 mg tablet Take 1 tablet by mouth twice daily with meals. busPIRone (BUSPAR) 15 mg tablet TAKE ONE TABLET BY MOUTH TWICE DAILY Omeprazole 40 mg capsule Take 1 capsule by mouth once daily. buPROPion XL (WELLBUTRIN XL) 300 mg 24 hr tablet TAKE ONE TABLET BY MOUTH EVERY DAY levothyroxine (SYNTHROID) 125 mcg tablet Take 1 tablet by mouth once daily. mirabegron (MYRBETRIQ) 50 mg Tb24 Take 1 tablet by mouth once daily. aspirin, enteric coated (ADULT LOW DOSE ASPIRIN) 81 mg EC tablet Take 1 tablet by mouth once daily. SACCHAROMYCES BOULARDII (PROBIOTIC, S.BOULARDII, ORAL) Take by mouth once daily. fluticasone (FLONASE) 50 mcg/actuation nasal spray Use 2 Sprays in each nostril once daily. Rinse mouth after use. (Patient not taking: Reported on 01/23/2018 ) No current facility-administered medications on file prior to visit. FAMILY HISTORY Problem Relation Age of Onset - Diabetes Father - Hypertension Father - Cancer Maternal Grandmother Lymphoma - Heart Maternal Grandfather hypertension - Hypertension Brother Social History Substance Use Topics - Smoking status: Never Smoker - Smokeless tobacco: Never Used - Alcohol use Yes Comment: rarely BP 142/88 (BP Site: Left Arm, BP Position: Sitting, BP Cuff Size: Large Adult) Pulse 96 Temp 36.4 ?C (97.6 ?F) (Tympanic) Resp 20 Wt 122 kg (269 lb) BMI 46.17 kg/m? . OBJECTIVE: APPEARANCE Well appearing, alert, in no acute distress, well- hydrated, well nourished., Morbidly obese and Appearance: well dressed well groomed, cooperative and pleasant Behavior: good eye contact Speech: fluent and coherent Mood: euthymic Affect: appropriate Perceptions: none Thought process: goal directed Thought Content: normal Intelligence level: normal Insight: good Judgment: good Lab Results for PAYTON MCQUEEN ( ) as of 02/06/2018 09:27 Ref. Range 01/23/2018 10:12 Sodium Latest Ref Range: 136 - 144 mmol/L 138 Potassium Latest Ref Range: 3.7 - 5.1 mmol/L 4.4 Chloride Latest Ref Range: 97 - 105 mmol/L 100 CO2 Latest Ref Range: 22 - 30 mmol/L 21 (L) BUN Latest Ref Range: 7 - 21 mg/dL 6 (L) Creatinine Latest Ref Range: 0.58 - 0.96 mg/dL 0.70 Glucose Latest Ref Range: 74 - 99 mg/dL 123 (H) Protein, Total Latest Ref Range: 6.3 - 8.0 g/dL 6.9 Calcium Latest Ref Range: 8.5 - 10.2 mg/dL 8.3 (L) Albumin Latest Ref Range: 3.9 - 4.9 g/dL 4.0 Bilirubin, Total Latest Ref Range: 0.2 - 1.3 mg/dL 0.4 Alkaline Phosphatase Latest Ref Range: 32 - 117 U/L 89 ALT Latest Ref Range: 7 - 38 U/L 22 AST Latest Ref Range: 13 - 35 U/L 36 (H) Anion Gap Latest Ref Range: 9 - 18 mmol/L 17 eGFR- Unknown >60 eGFR-All Other Races Latest Units: . >60 Hematocrit Latest Ref Range: 36.0 - 46.0 % 41.9 Hemoglobin A1C Latest Ref Range: 4.3 - 5.6 % 5.3 Estimated Average Glucose Latest Units: mg/dL 105 TSH Latest Ref Range: 0.400 - 5.500 uU/mL 1.710 WBC Latest Ref Range: 3.70 - 11.00 k/uL 15.95 (H) RBC Latest Ref Range: 3.90 - 5.20 m/uL 5.43 (H) Hemoglobin Latest Ref Range: 11.5 - 15.5 g/dL 11.9 Platelet Count Latest Ref Range: 150 - 400 k/uL 707 (H) MCV Latest Ref Range: 80.0 - 100.0 fL 77.2 (L) MCH Latest Ref Range: 26.0 - 34.0 pG 21.9 (L) MCHC Latest Ref Range: 30.5 - 36.0 g/dL 28.4 (L) MPV Latest Ref Range: 9.0 - 12.7 fL 9.9 RDW-CV Latest Ref Range: 11.5 - 15.0 % 20.8 (H) Neut% Latest Units: % 79.7 Abs Neut (ANC) Latest Ref Range: 1.45 - 7.50 k/uL 12.71 (H) Lymph% Latest Units: % 12.3 Abs Lymph Latest Ref Range: 1.00 - 4.00 k/uL 1.96 [place]% Latest Units: % 1.8 Abs [place] Latest Ref Range: <0.87 k/uL 0.29 Eosin% Latest Units: % 4.4 Abs Eosin Latest Ref Range: <0.46 k/uL 0.70 (H) Baso% Latest Units: % 1.8 Abs Baso Latest Ref Range: <0.11 k/uL 0.29 (H) Platelet Estimate Unknown Platelet estimate... Anisocytosis Unknown Present Polychromasia Unknown Slight Ovalocytes Unknown Few Diff Type Unknown Manual Diff ASSESSMENT: hypertension--at goal ch anxiety--improved myelodysplastic syndrome with high platelet count PLAN: increase hydroxyzine 25 mg twice/day as needed for anxiety wean and discontinue buspar healthy weight losing diet and regular exercise eat less sugar, bread, potato, pasta, rice, corn, corn syrup, saturated fats same other medications follow up with Dr Mccloud with labs as appointed in June LIU Kumar MD, III MD 02/06/2018 9:45 AM Signed PLAN: increase hydroxyzine 25 mg twice/day as needed for anxiety wean and discontinue buspar healthy weight losing diet and regular exercise eat less sugar, bread, potato, pasta, rice, corn, corn syrup, saturated fats sa me other medications follow up with Dr Mccloud with labs as appointed in June Mae Morton III MD Referring Provider: SELF [[id number]] Allergies As of Date: 02/06/2018 Noted Allergy Reaction BENEDRYL (DIPHENHYDRAMINE) 04/25/2009 14 - Other: See Comments Comments: hyperactive CELEBREX (CELECOXIB) 05/28/2005 Comments: upsets stomach after prolonged use ie. 6 weeks ERYTHROMYCIN 02/05/2005 8 - GI Upset LISINOPRIL 01/23/2018 16 - Unknown Comments: Cough, hypotension PROCHLORPERAZINE 09/29/2016 1 - Mental Status Change Comments: Agitation, felt ill TORADOL (KETOROLAC) 01/15/2015 11 - Vomiting VESICARE (SOLIFENACIN) 11/20/2009 2 - Rash Date Reviewed: 02/06/2018 Reviewed by: Adan Heaton LPN - Fully Assessed Reason for Visit: Recheck [92] Cmt: labs Primary Visit Diagnosis:Hypothyroidism, unspecified type [E03.9] Other Visit Diagnoses:Generalized anxiety disorder [F41.1] Essential hypertension, benign [I10] Chronic interstitial cystitis [N30.10] Impaired glucose tolerance [R73.02] Obesity, Class III, BMI 40-49.9 (morbid obesity) (HCC) [E66.01] Essential thrombocythemia (HCC) [D47.3] Leukocytosis, unspecified type [D72.829] Order(s):hydrOXYzine HCl (ATARAX) 25 mg tabletTake 1 tablet by mouth twice daily.Disp: 60 tabletRfl: 11 Prescriptions as of 02/06/2018 Sig: HYDROXYZINE HCL 25 MG TABLET Take 1 tablet by mouth twice * COMPOUNDED PRESCRIPTION OTC bladder supplement D weiner* HYDROCHLOROTHIAZIDE 12.5 MG C* Take 1 capsule by mouth once * METFORMIN 500 MG TABLET Take 1 tablet by mouth twice * OMEPRAZOLE 40 MG CAPSULE,IGLESIA* Take 1 capsule by mouth once * BUPROPION XL 300 MG 24 HR TAB TAKE ONE TABLET BY MOUTH EVER* LEVOTHYROXINE 125 MCG TABLET Take 1 tablet by mouth once d* MIRABEGRON ER 50 MG TABLET,EX* Take 1 tablet by mouth once d* ASPIRIN 81 MG TABLET,DELAYED * Take 1 tablet by mouth once d* PROBIOTIC (S.BOULARDII) ORAL Take by mouth once daily. FLUTICASONE 50 MCG/ACTUATION * Use 2 Sprays in each nostril * Patient not taking: Reported on 01/23/2018 Problem List As Of Date 02/06/2018 Noted Resolved Lumbago [M54.5] INVALID FOR*03/26/2016 Hypothyroidism [E03.9] Greater Trochanteric bursitis right [M76.899] INVALID FOR*03/26/2016 Sciatica [M54.30] INVALID FOR*03/26/2016 GENERALIZED ANXIETY DIS [F41.1] INVALID FOR* ESOPHAGEAL REFLUX [K21.9] INVALID FOR* Acute gastritis without mention of hemorrhage [*INVALID FOR*03/26/2016 ADJUSTMENT DISORDER WITH DEPRESSED MOOD [F43.21]INVALID FOR* BENIGN HYPERTENSION [I10] INVALID FOR* Contusion of chest wall [S20.219A] INVALID FOR*03/26/2016 Thoracic or lumbosacral neuritis or radiculitis*INVALID FOR*03/26/2016 Cluster headache syndrome [G44.009] INVALID FOR*03/26/2016 Pelvic pain in female [R10.2] INVALID FOR*03/26/2016 Chronic Interstitial Cystitis [N30.10] INVALID FOR* Cervical radiculopathy [M54.12] INVALID FOR*03/26/2016 Brachial neuritis or radiculitis NOS [M54.12] INVALID FOR*03/26/2016 Cervical disc disorder with radiculopathy [M50.*INVALID FOR*03/26/2016 Impaired glucose tolerance [R73.02] INVALID FOR* Lumbar disc disease with radiculopathy [M51.16] INVALID FOR*03/26/2016 Piriformis syndrome [G57.00] INVALID FOR*03/26/2016 Nonallopathic lesion of sacral region, not else*INVALID FOR*03/26/2016 Avascular necrosis of hip [M87.059] INVALID FOR* SI (sacroiliac) joint dysfunction [M53.3] INVALID FOR*03/26/2016 Obesity, Class III, BMI 40-49.9 (morbid obesity*INVALID FOR* Lumbar facet arthropathy (HCC) [M47.816] INVALID FOR*03/26/2016 Lumbar spondylosis [M47.816] INVALID FOR*03/26/2016 Left shoulder strain [S46.912A] INVALID FOR*10/19/2014 Left renal mass [N28.89] INVALID FOR*03/26/2016 Thoracolumbar back pain [M54.5, M54.6] INVALID FOR*03/26/2016 Unspecified gastritis and gastroduodenitis with*INVALID FOR*03/26/2016 Right sided abdominal pain [R10.9] INVALID FOR*03/26/2016 Strain of right knee and leg [S86.911A] INVALID FOR*03/26/2016 Overactive bladder [N32.81] INVALID FOR* Essential thrombocythemia (HCC) [D47.3] INVALID FOR* Leukocytosis [D72.829] INVALID FOR* More... Primary cancer of left kidney (HCC) [C64.2] INVALID FOR* Popliteal cyst, right [M71.21] INVALID FOR* Other instructions from your clinician: PLAN: increase hydroxyzine 25 mg twice/day as needed for anxiety wean and discontinue buspar healthy weight losing diet and regular exercise eat less sugar, bread, potato, pasta, rice, corn, corn syrup, saturated fats sa me other medications follow up with Dr Mccloud with labs as appointed in June Mae Morton III MD Prescriptions ordered this encounter Disp Refills Start End HYDROXYZINE HCL 25 MG TABLET 60 t* 11 02/06/2018 Route: ORAL Sig: Take 1 tablet by mouth twice daily. Medications Discontinued During This Encounter busPIRone (BUSPAR) 15 mg tablet 60 t* 5 11/02/2017 02/06/2018 Cmt: This prescription was filled on 11/01/2017. Any refills authorized will be placed on file. Sig: TAKE ONE TABLET BY MOUTH TWICE DAILY Disc: Clinical Decision hydrOXYzine HCl (ATARAX) 25 mg tablet 30 t* 5 01/11/2018 02/06/2018 Route: ORAL Sig: Take 1 tablet by mouth daily at bedtime. Disc: Reason for discontinue is not on file. Encounter Status:Closed by MEA MORTON III, MD on 02/06/18 PROGRESS Observed: 01/27/2018 Status: COMPLETED Source: [place] 8:23 PM [facility] REPOSITORY HNO ID: [id number] Author: Mae Morton III Service: (none) Author Type: Physician Type: Progress Notes Filed: 01/27/2018 8:23 PM Note Text: J Carlos, White blood cell count remains elevated. The other lab results are fine. We will discuss in more detail at the upcoming appointment. Mae Morton III, MD, FAA PROGRESS Observed: 01/23/2018 Status: COMPLETED Source: [place] 10:49 AM [facility] REPOSITORY HNO ID: [id number] Author: Bhupinder Castañeda Service: (none) Author Type: Physician Type: Progress Notes Filed: 01/23/2018 11:11 AM Note Text: Patient presents with: Medication Problem: lisinopril? HPI: Patient presents today for office visit for follow up. Nursing Notes: Destiney Lopez LPN 01/23/2018 10:44 AM Signed Feels having side effect to lisinopril. Had trouble with this medication in the past. Didn't take yesterday. Is following her BP at home. Since stopped the HCTZ has noticed being puffy, extreme fatigue, and cough See Dr Morton's plan PLAN: healthy diet and regular activity hydroxyzine 25mg at bedtime discontinue HCTZ and start lisinopril 5mg daily same other medications nurse bp check in 2 wks. ? Mae Morton III MD As above. Switched to lisinopril in last month. She was on hctz at 12.5 a day. Apparently had been hypotensive in the past on hctz and lisinopril and bp was not adequately controlled. Stopped hctz and started lisinopril. Had labs done today. Most recent renal function prior to this was ok. They were concerned with her interstitial cystitis and her frequency and wondered if her hctz was worsening things. Home bp has been perfect at home prior to changing meds. She does have some white count syndrome. Has developed a dry heave/cough. Has felt lightheaded and fatigue. bp was 96/78 yesterday. Did not take her med this am. She feels better without it. She did note her bladder issues are improved. We discussed the pluses and minuses of whether to try another med or to retry the hctz and see if she is better. She feels she had a flare of her interstitial cystitis and wonders if that is issues. Has another appt on the . Denies: chest pain Palpitations. Shortness of breath. Headache Neuro complaints. Gi complaints gu complaints. ent compaints. MEDICATIONS: Current Outpatient Prescriptions: COMPOUNDED PRESCRIPTION OTC bladder supplement D mannose hydrOXYzine HCl (ATARAX) 25 mg tablet Take 1 tablet by mouth daily at bedtime. metFORMIN (GLUCOPHAGE) 500 mg tablet Take 1 tablet by mouth twice daily with meals. busPIRone (BUSPAR) 15 mg tablet TAKE ONE TABLET BY MOUTH TWICE DAILY Omeprazole 40 mg capsule Take 1 capsule by mouth once daily. buPROPion XL (WELLBUTRIN XL) 300 mg 24 hr tablet TAKE ONE TABLET BY MOUTH EVERY DAY levothyroxine (SYNTHROID) 125 mcg tablet Take 1 tablet by mouth once daily. mirabegron (MYRBETRIQ) 50 mg Tb24 Take 1 tablet by mouth once daily. aspirin, enteric coated (ADULT LOW DOSE ASPIRIN) 81 mg EC tablet Take 1 tablet by mouth once daily. SACCHAROMYCES BOULARDII (PROBIOTIC, S.BOULARDII, ORAL) Take by mouth once daily. lisinopril (ZESTRIL, PRINIVIL) 5 mg tablet Take 1 tablet by mouth once daily. (Patient not taking: Reported on 01/23/2018 ) fluticasone (FLONASE) 50 mcg/actuation nasal spray Use 2 Sprays in each nostril once daily. Rinse mouth after use. (Patient not taking: Reported on 01/23/2018 ) No current facility-administered medications for this visit. ALLERGIES: ALLERGIES Allergen Reactions - Benedryl [Diphenhyd* Other: See Comments hyperactive - Celebrex [Celecoxib] upsets stomach after prolonged use ie. 6 weeks - Erythromycin GI Upset - Prochlorperazine Mental Status Change Agitation, felt ill - Toradol [Ketorolac] Vomiting - Vesicare [Solifenac* Rash PAST MEDICAL HISTORY Diagnosis Date - Acute gastritis without mention of hemorrhage - Anxiety - Benign neoplasm of stomach - Cervical disc disorder with radiculopathy 02/18/2010 - Cyst of ovary 01/01/2015 [facility] - see scanned documents - Depressive disorder, not elsewhere classified - Essential thrombocythemia (HCC) 06/02/2016 - GERD (gastroesophageal reflux disease) - Hypertension 08/28/11 - IC (interstitial cystitis) - Impaired fasting glucose 04/02/2010 - Lumbar disc disease with radiculopathy 11/15/2010 - Metabolic syndrome X - Morbid obesity with BMI of 40.0-44.9, adult ([facility]) 08/29/2013 - Renal cyst, left 07/03/2016 18 mm, 06/18/16 - Sciatica - SI (sacroiliac) joint dysfunction 06/04/2011 - Thoracolumbar back pain 07/20/2013 - Unspecified hypothyroidism - Urinary calculus, unspecified Renal stones PAST SURGICAL HISTORY Procedure Laterality Date - CYSTOSCOPY,DIL BLADDER,LOCAL ANESTH 01/18/14 - EGD W/O [facility] SPECIMEN W/BX 04/09/2007 gastritis, gastric polyps - 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 REVIEW OF SYSTEMS All other reviewed and negative other than HPI. VITALS: BP 132/82 Pulse 88 Resp 16 Wt 122 kg (269 lb) BMI 46.17 kg/m? Last 4 Encounter Wt Readings: Date: Wt: 01/23/2018 122 kg (269 lb) 01/11/2018 121.6 kg (268 lb) 12/22/2017 120.2 kg (265 lb) 10/13/2017 120.7 kg (266 lb) PHYSICAL EXAMINATION: General appearance: Well appearing, alert, in no acute distress, well-hydrated, well nourished. Skin: Skin color, texture, turgor normal, no suspicious rashes or lesions Neck:supple. Lungs: Lungs clear to auscultation. No wheezing, rhonchi, rales Heart: RRR without murmur, gallop, or rubs. No ectopy Abdomen: Normal abdominal exam, Abdomen soft, non-tender. Bowel sounds normal. No masses, organomegaly Extremities: No deformities, edema, skin discoloration, clubbing or cyanosis. Good capillary refill. Musculoskeletal: No joint swelling, deformity, or tenderness ASSESSMENT/PLAN: 1. Cough - ICD9: 786.2, ICD10: R05 (primary diagnosis) - avoid bartolo. Discussed med compliance. Discussed modifying risk factors. 2. Hypotension, unspecified hypotension type - ICD9: 458.9, ICD10: I95.9 - better this am. Call if recurs. 3. Chronic interstitial cystitis - ICD9: 595.1, ICD10: N30.10 chronic Seems to be better. 4. Essential hypertension, benign - ICD9: 401.1, ICD10: I10 - good control - Recommended regular aerobic exercise. - Resume hctz. See how she does. Bring in home cuff. Check bp daily. Recheck bp and validate home cuff at next appt in two weeks. Call if any issues. - Goal of BP <130/80 5. Impaired glucose tolerance - ICD9: 790.22, ICD10: R73.02 - await labs. MD JOSEPH BoykinOV Observed: 01/23/2018 Status: COMPLETED Source: [place] 10:40 AM [facility] REPOSITORY [facility] PAYTON MCQUEEN ([id number]) 1965 F Date Time Provider Department 01/23/18 10:40 AM BHUPINDER CASTAÑEDA During your visit today, we recorded the following information about you: Pulse Respiration Blood pressure Weight 88/minute 16/minute 132/82 122 kg Destiney Lopez ALVINO 01/23/2018 10:44 AM Signed Feels having side effect to lisinopril. Had trouble with this medication in the past. Didn't take yesterday. Is following her BP at home. Since stopped the HCTZ has noticed being puffy, extreme fatigue, and cough See Dr Morton's plan PLAN: healthy diet and regular activity hydroxyzine 25mg at bedtime discontinue HCTZ and start lisinopril 5mg daily same other medications nurse bp check in 2 wks. ? LIU Kumar MD, MD 01/23/2018 11:11 AM Signed Patient presents with: Medication Problem: lisinopril? HPI: Patient presents today for office visit for follow up. Nursing Notes: Destiney Lopez ALVINO 01/23/2018 10:44 AM Signed Feels having side effect to lisinopril. Had trouble with this medication in the past. Didn't take yesterday. Is following her BP at home. Since stopped the HCTZ has noticed being puffy, extreme fatigue, and cough See Dr Morton's plan PLAN: healthy diet and regular activity hydroxyzine 25mg at bedtime discontinue HCTZ and start lisinopril 5mg daily same other medications nurse bp check in 2 wks. ? Mae Morton III MD As above. Switched to lisinopril in last month. She was on hctz at 12.5 a day. Apparently had been hypotensive in the past on hctz and lisinopril and bp was not adequately controlled. Stopped hctz and started lisinopril. Had labs done today. Most recent renal function prior to this was ok. They were concerned with her interstitial cystitis and her frequency and wondered if her hctz was worsening things. Home bp has been perfect at home prior to changing meds. She does have some white count syndrome. Has developed a dry heave/cough. Has felt lightheaded and fatigue. bp was 96/78 yesterday. Did not take her med this am. She feels better without it. She did note her bladder issues are improved. We discussed the pluses and minuses of whether to try another med or to retry the hctz and see if she is better. She feels she had a flare of her interstitial cystitis and wonders if that is issues. Has another appt on the . Denies: chest pain Palpitations. Shortness of breath. Headache Neuro complaints. Gi complaints gu complaints. ent compaints. MEDICATIONS: Current Outpatient Prescriptions: COMPOUNDED PRESCRIPTION OTC bladder supplement D mannose hydrOXYzine HCl (ATARAX) 25 mg tablet Take 1 tablet by mouth daily at bedtime. metFORMIN (GLUCOPHAGE) 500 mg tablet Take 1 tablet by mouth twice daily with meals. busPIRone (BUSPAR) 15 mg tablet TAKE ONE TABLET BY MOUTH TWICE DAILY Omeprazole 40 mg capsule Take 1 capsule by mouth once daily. buPROPion XL (WELLBUTRIN XL) 300 mg 24 hr tablet TAKE ONE TABLET BY MOUTH EVERY DAY levothyroxine (SYNTHROID) 125 mcg tablet Take 1 tablet by mouth once daily. mirabegron (MYRBETRIQ) 50 mg Tb24 Take 1 tablet by mouth once daily. aspirin, enteric coated (ADULT LOW DOSE ASPIRIN) 81 mg EC tablet Take 1 tablet by mouth once daily. SACCHAROMYCES BOULARDII (PROBIOTIC, S.BOULARDII, ORAL) Take by mouth once daily. lisinopril (ZESTRIL, PRINIVIL) 5 mg tablet Take 1 tablet by mouth once daily. (Patient not taking: Reported on 01/23/2018 ) fluticasone (FLONASE) 50 mcg/actuation nasal spray Use 2 Sprays in each nostril once daily. Rinse mouth after use. (Patient not taking: Reported on 01/23/2018 ) No current facility-administered medications for this visit. ALLERGIES: ALLERGIES Allergen Reactions - Benedryl [Diphenhyd* Other: See Comments hyperactive - Celebrex [Celecoxib] upsets stomach after prolonged use ie. 6 weeks - Erythromycin GI Upset - Prochlorperazine Mental Status Change Agitation, felt ill - Toradol [Ketorolac] Vomiting - Vesicare [Solifenac* Rash PAST MEDICAL HISTORY Diagnosis Date - Acute gastritis without mention of hemorrhage - Anxiety - Benign neoplasm of stomach - Cervical disc disorder with radiculopathy 02/18/2010 - Cyst of ovary 01/01/2015 [facility] - see scanned documents - Depressive disorder, not elsewhere classified - Essential thrombocythemia (HCC) 06/02/2016 - GERD (gastroesophageal reflux disease) - Hypertension 08/28/11 - IC (interstitial cystitis) - Impaired fasting glucose 04/02/2010 - Lumbar disc disease with radiculopathy 11/15/2010 - Metabolic syndrome X - Morbid obesity with BMI of 40.0-44.9, adult (HCC) 08/29/2013 - Renal cyst, left 07/03/2016 18 mm, 06/18/16 - Sciatica - SI (sacroiliac) joint dysfunction 06/04/2011 - Thoracolumbar back pain 07/20/2013 - Unspecified hypothyroidism - Urinary calculus, unspecified Renal stones PAST SURGICAL HISTORY Procedure Laterality Date - CYSTOSCOPY,DIL BLADDER,LOCAL ANESTH 01/18/14 - EGD W/O [facility] SPECIMEN W/BX 04/09/2007 gastritis, gastric polyps - 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 - PAST SURGICAL HISTORY OF WISDOM TEETH EXTRACTIONS - PAST SURGICAL HISTORY OF 05/2012 bladder hydrodistension X 2 - PAST SURGICAL HISTORY OF 2014 pain injection lumbar- multiple - PAST SURGICAL HISTORY OF Cyst removed from head - REMOVAL GALLBLADDER 1991 Cholecystectomy FAMILY HISTORY Problem Relation Age of Onset - Diabetes Father - Hypertension Father - Cancer Maternal Grandmother Lymphoma - Heart Maternal Grandfather hypertension - Hypertension Brother Social History Marital status: Single Spouse name: Years of education: Number of children: 0 Occupational History Occupation Employer Comment [employer]* Social History Main Topics Smoking status: Never Smoker Smokeless tobacco: Never Used Alcohol use: Yes Comment: rarely Drug use: No Sexual activity: Not Currently control/protection: Condom, Pill Reviewed current medications, allergies, past medical history, surgical history, family history and social history today. REVIEW OF SYSTEMS All other reviewed and negative other than HPI. VITALS: BP 132/82 Pulse 88 Resp 16 Wt 122 kg (269 lb) BMI 46.17 kg/m? Last 4 Encounter Wt Readings: Date: Wt: 01/23/2018 122 kg (269 lb) 01/11/2018 121.6 kg (268 lb) 12/22/2017 120.2 kg (265 lb) 10/13/2017 120.7 kg (266 lb) PHYSICAL EXAMINATION: General appearance: Well appearing, alert, in no acute distress, well-hydrated, well nourished. Skin: Skin color, texture, turgor normal, no suspicious rashes or lesions Neck:supple. Lungs: Lungs clear to auscultation. No wheezing, rhonchi, rales Heart: RRR without murmur, gallop, or rubs. No ectopy Abdomen: Normal abdominal exam, Abdomen soft, non-tender. Bowel sounds normal. No masses, organomegaly Extremities: No deformities, edema, skin discoloration, clubbing or cyanosis. Good capillary refill. Musculoskeletal: No joint swelling, deformity, or tenderness ASSESSMENT/PLAN: 1. Cough - ICD9: 786.2, ICD10: R05 (primary diagnosis) - avoid bartolo. Discussed med compliance. Discussed modifying risk factors. 2. Hypotension, unspecified hypotension type - ICD9: 458.9, ICD10: I95.9 - better this am. Call if recurs. 3. Chronic interstitial cystitis - ICD9: 595.1, ICD10: N30.10 chronic Seems to be better. 4. Essential hypertension, benign - ICD9: 401.1, ICD10: I10 - good control - Recommended regular aerobic exercise. - Resume hctz. See how she does. Bring in home cuff. Check bp daily. Recheck bp and validate home cuff at next appt in two weeks. Call if any issues. - Goal of BP <130/80 5. Impaired glucose tolerance - ICD9: 790.22, ICD10: R73.02 - await labs. Bhupinder Castañeda MD Allergies As of Date: 01/23/2018 Noted Allergy Reaction BENEDRYL (DIPHENHYDRAMINE) 04/25/2009 14 - Other: See Comments Comments: hyperactive CELEBREX (CELECOXIB) 05/28/2005 Comments: upsets stomach after prolonged use ie. 6 weeks ERYTHROMYCIN 02/05/2005 8 - GI Upset LISINOPRIL 01/23/2018 16 - Unknown Comments: Cough, hypotension PROCHLORPERAZINE 09/29/2016 1 - Mental Status Change Comments: Agitation, felt ill TORADOL (KETOROLAC) 01/15/2015 11 - Vomiting VESICARE (SOLIFENACIN) 11/20/2009 2 - Rash Date Reviewed: 01/23/2018 Reviewed by: Destiney Lopez LPN - Fully Assessed Reason for Visit: Medication Problem [65] Cmt: lisinopril? Reason For Visit History Recorded Primary Visit Diagnosis:Cough [R05] Other Visit Diagnoses:Hypotension, unspecified hypotension type [I95.9] Chronic interstitial cystitis [N30.10] Essential hypertension, benign [I10] Impaired glucose tolerance [R73.02] Order(s):Hydrochlorothiazide 12.5 mg capsuleTake 1 capsule by mouth once daily.Disp: 30 capsuleRfl: 5 Prescriptions as of 01/23/2018 Sig: COMPOUNDED PRESCRIPTION OTC bladder supplement D weiner* HYDROXYZINE HCL 25 MG TABLET Take 1 tablet by mouth daily * METFORMIN 500 MG TABLET Take 1 tablet by mouth twice * BUSPIRONE 15 MG TABLET TAKE ONE TABLET BY MOUTH TWIC* OMEPRAZOLE 40 MG CAPSULE,IGLESIA* Take 1 capsule by mouth once * BUPROPION XL 300 MG 24 HR TAB TAKE ONE TABLET BY MOUTH EVER* LEVOTHYROXINE 125 MCG TABLET Take 1 tablet by mouth once d* MIRABEGRON ER 50 MG TABLET,EX* Take 1 tablet by mouth once d* ASPIRIN 81 MG TABLET,DELAYED * Take 1 tablet by mouth once d* PROBIOTIC (S.BOULARDII) ORAL Take by mouth once daily. HYDROCHLOROTHIAZIDE 12.5 MG C* Take 1 capsule by mouth once * FLUTICASONE 50 MCG/ACTUATION * Use 2 Sprays in each nostril * Patient not taking: Reported on 01/23/2018 Problem List As Of Date 01/23/2018 Noted Resolved Lumbago [M54.5] INVALID FOR*03/26/2016 Hypothyroidism [E03.9] Greater Trochanteric bursitis right [M76.696] INVALID FOR*03/26/2016 Sciatica [M54.30] INVALID FOR*03/26/2016 GENERALIZED ANXIETY DIS [F41.1] INVALID FOR* ESOPHAGEAL REFLUX [K21.9] INVALID FOR* Acute gastritis without mention of hemorrhage [*INVALID FOR*03/26/2016 ADJUSTMENT DISORDER WITH DEPRESSED MOOD [F43.21]INVALID FOR* BENIGN HYPERTENSION [I10] INVALID FOR* Contusion of chest wall [S20.219A] INVALID FOR*03/26/2016 Thoracic or lumbosacral neuritis or radiculitis*INVALID FOR*03/26/2016 Cluster headache syndrome [G44.009] INVALID FOR*03/26/2016 Pelvic pain in female [R10.2] INVALID FOR*03/26/2016 Chronic Interstitial Cystitis [N30.10] INVALID FOR* Cervical radiculopathy [M54.12] INVALID FOR*03/26/2016 Brachial neuritis or radiculitis NOS [M54.12] INVALID FOR*03/26/2016 Cervical disc disorder with radiculopathy [M50.*INVALID FOR*03/26/2016 Impaired glucose tolerance [R73.02] INVALID FOR* Lumbar disc disease with radiculopathy [M51.16] INVALID FOR*03/26/2016 Piriformis syndrome [G57.00] INVALID FOR*03/26/2016 Nonallopathic lesion of sacral region, not else*INVALID FOR*03/26/2016 Avascular necrosis of hip [M87.059] INVALID FOR* SI (sacroiliac) joint dysfunction [M53.3] INVALID FOR*03/26/2016 Obesity, Class III, BMI 40-49.9 (morbid obesity*INVALID FOR* Lumbar facet arthropathy (HCC) [M47.816] INVALID FOR*03/26/2016 Lumbar spondylosis [M47.816] INVALID FOR*03/26/2016 Left shoulder strain [S46.912A] INVALID FOR*10/19/2014 Left renal mass [N28.89] INVALID FOR*03/26/2016 Thoracolumbar back pain [M54.5, M54.6] INVALID FOR*03/26/2016 Unspecified gastritis and gastroduodenitis with*INVALID FOR*03/26/2016 Right sided abdominal pain [R10.9] INVALID FOR*03/26/2016 Strain of right knee and leg [S86.911A] INVALID FOR*03/26/2016 Overactive bladder [N32.81] INVALID FOR* Essential thrombocythemia (HCC) [D47.3] INVALID FOR* Leukocytosis [D72.829] INVALID FOR* More... Primary cancer of left kidney (HCC) [C64.2] INVALID FOR* Popliteal cyst, right [M71.21] INVALID FOR* Visit Notes: >> Destiney Lopez LPN Sat Jan 23, 2018 10:35 AM Status: Signed Feels having side effect to lisinopril. Had trouble with this medication in the past. Didn't take yesterday. Is following her BP at home. Since stopped the HCTZ has noticed being puffy, extreme fatigue, and cough See Dr Morton's plan PLAN: healthy diet and regular activity hydroxyzine 25mg at bedtime discontinue HCTZ and start lisinopril 5mg daily same other medications nurse bp check in 2 wks. ? Mae Morton III MD Prescriptions ordered this encounter Disp Refills Start End HYDROCHLOROTHIAZIDE 12.5 MG CAPSULE 30 c* 5 01/23/2018 Route: ORAL Sig: Take 1 capsule by mouth once daily. Medications Discontinued During This Encounter lisinopril (ZESTRIL, PRINIVIL) 5 mg * 30 t* 11 01/11/2018 01/23/2018 Route: ORAL Sig: Take 1 tablet by mouth once daily. Patient not taking: Reported on 01/23/2018 Disc: Reason for discontinue is not on file. Follow-up and Disposition History Recorded Encounter Status:Closed by BHUPINDER CASTAÑEDA MD on 01/23/18 COMP METABOLIC PANEL Collected: 01/23/2018 Status: F Source: [place] 10:12 AM [facility] TYPE CODE TESTS RESULT OUT OF REFERENCE UNITS RANGE LAB TP 6.3-8.0 g/dL Protein, Total 6.9 LAB ALB 3.9-4.9 g/dL Albumin 4.0 LAB CA 8.5-10.2 mg/dL Low Calcium, Total 8.3 LAB TBIL 0.2-1.3 mg/dL Bilirubin, Total 0.4 LAB ALKP 32-117 U/L Alkaline Phosphatase 89 LAB AST 13-35 U/L AST High 36 LAB GLU 74-99 mg/dL Glucose High 123 Result Comment: The [place] Diabetes Association (ADA) provides guidance for cutoff values for fasting glucose and random glucose. The ADA defines fasting as no caloric intake for at least 8 hours. Fas ting plasma glucose results between 100 to 125 mg/dL indicate increased risk for diabetes (prediabetes). Fasting plasma glucose results greater than or equal to 126 mg/dL meet the criteria for diagnosis of diabetes. In the absence of unequivocal hyperglycemia, results should be confirmed by repeat testing. In a patient with classic symptoms of hyperglycemia or hyperglycemic crisis, random plasma glucose results greater than or equal to 200 mg/dL meet the criteria for diagnosis of diabetes. Reference: Standards of Medical Care in Diabetes 2016, [place] Diabetes Association. Diabetes Care. 2016.39(Suppl 1). LAB BUN 7-21 mg/dL BUN Low 6 LAB CRET 0.58-0.96 mg/dL Creatinine 0.70 LAB NA 136-144 mmol/L Sodium 138 LAB K 3.7-5.1 mmol/L Potassium 4.4 LAB CL 97-105 mmol/L Chloride 100 LAB CO2 22-30 mmol/L CO2 Low 21 LAB AGAP 9-18 mmol/L Anion Gap 17 LAB ALT 7-38 U/L ALT 22 LAB GFRAA eGFR- Amer. >60 LAB GFRNAA . eGFR-All Other Races >60 Result Comment: eGFR (Estimated GFR) Units of measure: mL/min/1.73 meters squared eGFR is derived from the reexpressed MDRD Study equation using the following parameters: serum creatinine, age, gender and race. The creatinine assay has been calibrated to be traceable to IDMS. An eGFR <60 mL/min/1.73m2 for >3 months is consistent with chronic kidney disease. Refer to KDOQI guidelines for clinical interpretation. In patients with unstable renal function, e.g. those with acute kidney injury, the eGFR may not accurately reflect actual GFR. Performed By: #### CMP, TSH, CBCDIF, HBA1C #### [facility] [address] [place], [place] [address] TSH Collected: 01/23/2018 Status: F Source: [place] 10:12 AM [facility] [place] REPOSITORY TYPE CODE TESTS RESULT OUT OF RANGE REFERENCE UNITS LAB TSH 0.400-5.500 uU/mL TSH 1.710 Result Comment: If the patient is , TSH reference range varies by gestational period: First Trimester 0.100-2.500 uU/mL Second Trimester 0.200-3.000 uU/mL Third Trimester 0.300-3.000 uU/mL References: 1. Díaz, Jesus M, Herbert EK, et al. Management of Thyroid Dysfunction during and : An Endocrine Society Clinical Practice Guideline. J Clin Endocrinol Metab, 2012:97:8164-1004. 2. Henry HUTCHISON. Overview of thyroid disease in . UpToDate. 2016. Accessed on November 09, 2015. Performed By: #### CMP, TSH, CBCDIF, HBA1C #### [facility] [address] [place], [place] [address] CBC AND DIFFERENTIAL Collected: 01/23/2018 Status: F Source: [place] 10:12 AM [facility] REPOSITORY TYPE CODE TESTS RESULT OUT OF REFERENCE UNITS RANGE LAB WBC 3.70-11.00 k/uL WBC High 15.95 LAB RBC 3.90-5.20 m/uL RBC High 5.43 LAB HGB 11.5-15.5 g/dL Hemoglobin 11.9 LAB HCT 36.0-46.0 % Hematocrit 41.9 LAB MCV 80.0-100.0 fL MCV Low 77.2 LAB MCH 26.0-34.0 pG MCH Low 21.9 LAB MCHC 30.5-36.0 g/dL MCHC Low 28.4 LAB RDWCV 11.5-15.0 % RDW-CV High 20.8 LAB PLTCT 150-400 k/uL Platelet Count High 707 LAB MPV 9.0-12.7 fL MPV 9.9 LAB ANEUT % Neut% 79.7 LAB AANEUT 1.45-7.50 k/uL Abs Neut High 12.71 LAB ALYMP % Lymph% 12.3 LAB AALYMP 1.00-4.00 k/uL Abs Lymph 1.96 LAB AMONO % [place]co% 1.8 LAB AAMONO <0.87 k/uL Abs [place] 0.29 LAB AEOS % Eosin% 4.4 LAB AAEOS <0.46 k/uL Abs Eosin High 0.70 LAB ABASO % Baso% 1.8 LAB AABASO <0.11 k/uL Abs Baso High 0.29 LAB ANIIMI Anisocytosis Present LAB OVAIMI Ovalocytes Few LAB POLIMI Polychromasia Slight LAB PLTEST Platelet Estimate Platelet estimate increased LAB DTYP DTYPE Manual Diff Performed By: #### CMP, TSH, CBCDIF, HBA1C #### [facility] [address] [place], [place] [address] HEMOGLOBIN A1C Collected: 01/23/2018 Status: F Source: [place] 10:12 AM [facility] REPOSITORY TYPE CODE TESTS RESULT OUT OF REFERENCE UNITS RANGE LAB HGBA1C 4.3-5.6 % Hemoglobin A1c 5.3 LAB HBA0 mg/dL Est. Average Glucose 105 Result Comment: eAG: (Estimated average glucose) is a calculated value from HgbA1c and is sales representative advertising of the average blood glucose level in the last 2-3 month period. Performed By: #### CMP, TSH, CBCDIF, HBA1C #### [facility] [address] [place], [place] [address] CNOV Observed: 01/23/2018 Status: COMPLETED Source: [place] 10:10 AM [facility] REPOSITORY Office Visit (LAB) PAYTON MCQUEEN ([id number]) 1965 F Date Time Provider Department 01/23/18 10:10 AM LAB [facility] During your visit today, we recorded the following information about you: Mae Morton III MD 01/27/2018 8:23 PM Signed J Carlos, White blood cell count remains elevated. The other lab results are fine. We will discuss in more detail at the upcoming appointment. Mae Morton III, MD, FAAFP Referring Provider: EBONY MCCLOUD [[id number]] Allergies As of Date: 01/23/2018 Noted Allergy Reaction BENEDRYL (DIPHENHYDRAMINE) 04/25/2009 14 - Other: See Comments Comments: hyperactive CELEBREX (CELECOXIB) 05/28/2005 Comments: upsets stomach after prolonged use ie. 6 weeks ERYTHROMYCIN 02/05/2005 8 - GI Upset LISINOPRIL 01/23/2018 16 - Unknown Comments: Cough, hypotension PROCHLORPERAZINE 09/29/2016 1 - Mental Status Change Comments: Agitation, felt ill TORADOL (KETOROLAC) 01/15/2015 11 - Vomiting VESICARE (SOLIFENACIN) 11/20/2009 2 - Rash Date Reviewed: 01/23/2018 Reviewed by: Destiney Lopez LPN - Fully Assessed Visit Diagnoses:Essential thrombocythemia (HCC) [D47.3] Hypothyroidism, unspecified type [E03.9] Essential hypertension, benign [I10] Impaired glucose tolerance [R73.02] Leukocytosis, unspecified type [D72.829] Order(s):DENISE CBC AND DIFF [SQWCBCDF] Order #: [id number] TSH BLD [SQTSH] Order #: [id number]. #:[id number] COMP METABOLIC PANEL [SQCMP] Order #: [id number]. #:[id number] CBC + DIFF [SQCBCDIF] Order #: [id number]. #:[id number] HGB A1C [IDJNS3U] Order #: [id number]. #:[id number] Prescriptions as of 01/23/2018 Sig: HYDROXYZINE HCL 25 MG TABLET Take 1 tablet by mouth daily * METFORMIN 500 MG TABLET Take 1 tablet by mouth twice * BUSPIRONE 15 MG TABLET TAKE ONE TABLET BY MOUTH TWIC* OMEPRAZOLE 40 MG CAPSULE,IGLESIA* Take 1 capsule by mouth once * FLUTICASONE 50 MCG/ACTUATION * Use 2 Sprays in each nostril * Patient not taking: Reported on 01/23/2018 BUPROPION XL 300 MG 24 HR TAB TAKE ONE TABLET BY MOUTH EVER* LEVOTHYROXINE 125 MCG TABLET Take 1 tablet by mouth once d* MIRABEGRON ER 50 MG TABLET,EX* Take 1 tablet by mouth once d* ASPIRIN 81 MG TABLET,DELAYED * Take 1 tablet by mouth once d* PROBIOTIC (S.BOULARDII) ORAL Take by mouth once daily. Problem List As Of Date 01/23/2018 Noted Resolved Lumbago [M54.5] INVALID FOR*03/26/2016 Hypothyroidism [E03.9] Greater Trochanteric bursitis right [M76.369] INVALID FOR*03/26/2016 Sciatica [M54.30] INVALID FOR*03/26/2016 GENERALIZED ANXIETY DIS [F41.1] INVALID FOR* ESOPHAGEAL REFLUX [K21.9] INVALID FOR* Acute gastritis without mention of hemorrhage [*INVALID FOR*03/26/2016 ADJUSTMENT DISORDER WITH DEPRESSED MOOD [F43.21]INVALID FOR* BENIGN HYPERTENSION [I10] INVALID FOR* Contusion of chest wall [S20.219A] INVALID FOR*03/26/2016 Thoracic or lumbosacral neuritis or radiculitis*INVALID FOR*03/26/2016 Cluster headache syndrome [G44.009] INVALID FOR*03/26/2016 Pelvic pain in female [R10.2] INVALID FOR*03/26/2016 Chronic Interstitial Cystitis [N30.10] INVALID FOR* Cervical radiculopathy [M54.12] INVALID FOR*03/26/2016 Brachial neuritis or radiculitis NOS [M54.12] INVALID FOR*03/26/2016 Cervical disc disorder with radiculopathy [M50.*INVALID FOR*03/26/2016 Impaired glucose tolerance [R73.02] INVALID FOR* Lumbar disc disease with radiculopathy [M51.16] INVALID FOR*03/26/2016 Piriformis syndrome [G57.00] INVALID FOR*03/26/2016 Nonallopathic lesion of sacral region, not else*INVALID FOR*03/26/2016 Avascular necrosis of hip [M87.059] INVALID FOR* SI (sacroiliac) joint dysfunction [M53.3] INVALID FOR*03/26/2016 Obesity, Class III, BMI 40-49.9 (morbid obesity*INVALID FOR* Lumbar facet arthropathy (HCC) [M47.816] INVALID FOR*03/26/2016 Lumbar spondylosis [M47.816] INVALID FOR*03/26/2016 Left shoulder strain [S46.912A] INVALID FOR*10/19/2014 Left renal mass [N28.89] INVALID FOR*03/26/2016 Thoracolumbar back pain [M54.5, M54.6] INVALID FOR*03/26/2016 Unspecified gastritis and gastroduodenitis with*INVALID FOR*03/26/2016 Right sided abdominal pain [R10.9] INVALID FOR*03/26/2016 Strain of right knee and leg [S86.911A] INVALID FOR*03/26/2016 Overactive bladder [N32.81] INVALID FOR* Essential thrombocythemia (HCC) [D47.3] INVALID FOR* Leukocytosis [D72.829] INVALID FOR* More... Primary cancer of left kidney (HCC) [C64.2] INVALID FOR* Popliteal cyst, right [M71.21] INVALID FOR* Encounter Status:Closed by MAE MORTON III, MD on 01/28/18 CNOV Observed: 01/11/2018 Status: COMPLETED Source: [place] 7:00 PM [facility] REPOSITORY Office Visit (FAMPWS) PYATON MCQUEEN ([id number]) 1965 F Date Time Provider Department 01/11/18 7:00 PM MAE MORTON III FAMPWS During your visit today, we recorded the following information about you: Temperature Pulse Respiration Blood pressure 97.8 degrees 104/minute 18/minute 144/96 Weight 121.6 kg Mae Morton III MD 01/11/2018 8:50 PM Signed SUBJECTIVE: This is a 52 year old female that is here today for 1. episodic fever/malaise. Seen in 12/22 with dysuria and urine dip + leukocytes and blood; but urine culture neg. Tx with Bactrim x 5 days. No vag sx. She continued to have bladder pressure w/o urgency. 12/28- 01/02. Had some fever, then chills. Known interstitial cystitis on myrbetriq with some benefit. 2. hypertension--previoiusly had hypotension requiring admission when on hctz and lisinopril 10mg qday PAST MEDICAL HISTORY Diagnosis Date - Acute gastritis without mention of hemorrhage - Anxiety - Benign neoplasm of stomach - Cervical disc disorder with radiculopathy 02/18/2010 - Cyst of ovary 01/01/2015 [facility] - see scanned documents - Depressive disorder, not elsewhere classified - Essential thrombocythemia (HCC) 06/02/2016 - GERD (gastroesophageal reflux disease) - Hypertension 08/28/11 - IC (interstitial cystitis) - Impaired fasting glucose 04/02/2010 - Lumbar disc disease with radiculopathy 11/15/2010 - Metabolic syndrome X - Morbid obesity with BMI of 40.0-44.9, adult (HCC) 08/29/2013 - Renal cyst, left 07/03/2016 18 mm, 06/18/16 - Sciatica - SI (sacroiliac) joint dysfunction 06/04/2011 - Thoracolumbar back pain 07/20/2013 - Unspecified hypothyroidism - Urinary calculus, unspecified Renal stones Current Outpatient Prescriptions on File Prior to Visit: metFORMIN (GLUCOPHAGE) 500 mg tablet Take 1 tablet by mouth twice daily with meals. busPIRone (BUSPAR) 15 mg tablet TAKE ONE TABLET BY MOUTH TWICE DAILY Omeprazole 40 mg capsule Take 1 capsule by mouth once daily. fluticasone (FLONASE) 50 mcg/actuation nasal spray Use 2 Sprays in each nostril once daily. Rinse mouth after use. buPROPion XL (WELLBUTRIN XL) 300 mg 24 hr tablet TAKE ONE TABLET BY MOUTH EVERY DAY levothyroxine (SYNTHROID) 125 mcg tablet Take 1 tablet by mouth once daily. mirabegron (MYRBETRIQ) 50 mg Tb24 Take 1 tablet by mouth once daily. Hydrochlorothiazide 12.5 mg capsule Take 1 capsule by mouth once daily. aspirin, enteric coated (ADULT LOW DOSE ASPIRIN) 81 mg EC tablet Take 1 tablet by mouth once daily. SACCHAROMYCES BOULARDII (PROBIOTIC, S.BOULARDII, ORAL) Take by mouth once daily. No current facility-administered medications on file prior to visit. FAMILY HISTORY Problem Relation Age of Onset - Diabetes Father - Hypertension Father - Cancer Maternal Grandmother Lymphoma - Heart Maternal Grandfather hypertension - Hypertension Brother Social History Substance Use Topics - Smoking status: Never Smoker - Smokeless tobacco: Never Used - Alcohol use Yes Comment: rarely BP 144/96 Pulse 104 Temp 36.6 ?C (97.8 ?F) (Tympanic) Resp 18 Wt 121.6 kg (268 lb) BMI 46.00 kg/m? . OBJECTIVE: APPEARANCE Well appearing, alert, in no acute distress, well- hydrated, well nourished. and Morbidly obese NECK Supple, no adenopathy; thyroid symmetric, normal size, no bruits HEART RRR with normal S1 and S2, no murmurs, no gallops, no JVD appreciated LUNG clear to auscultation ABDOMEN soft, non-tender, non-distended, without organomegaly or palpable masses, no tenderness to palpation Appearance: well dressed well groomed, cooperative and pleasant Behavior: good eye contact Speech: fluent and coherent Mood: euthymic Affect: appropriate Perceptions: none Thought process: goal directed Thought Content: normal Intelligence level: normal Insight: good Judgment: good ASSESSMENT: interstitial cystitis hypertension--not at goal History of impaired fasting glucose History of hypothyroidism PLAN: healthy diet and regular activity hydroxyzine 25mg at bedtime for interstitial cystitis discontinue HCTZ and start lisinopril 5mg daily same other medications nurse bp check in 2 wks. labs as ordered Reviewed up-to-date information regarding interstitial cystitis LIU Kumar MD, III MD Frank A Cebul, III MD 01/11/2018 7:27 PM Signed PLAN: healthy diet and regular activity hydroxyzine 25mg at bedtime discontinue HCTZ and start lisinopril 5mg daily same other medications nurse bp check in 2 wks. Mae Morton III MD Allergies As of Date: 01/11/2018 Noted Allergy Reaction BENEDRYL (DIPHENHYDRAMINE) 04/25/2009 14 - Other: See Comments Comments: hyperactive CELEBREX (CELECOXIB) 05/28/2005 Comments: upsets stomach after prolonged use ie. 6 weeks ERYTHROMYCIN 02/05/2005 8 - GI Upset PROCHLORPERAZINE 09/29/2016 1 - Mental Status Change Comments: Agitation, felt ill TORADOL (KETOROLAC) 01/15/2015 11 - Vomiting VESICARE (SOLIFENACIN) 11/20/2009 2 - Rash Date Reviewed: 01/11/2018 Reviewed by: Maye Prince Ma - Fully Assessed Reason for Visit: Fever [47] Cmt: chills, mild body aches, dull headache x 1 week Primary Visit Diagnosis:Essential hypertension, benign [I10] Other Visit Diagnoses:Chronic interstitial cystitis [N30.10] Impaired glucose tolerance [R73.02] Hypothyroidism, unspecified type [E03.9] Order(s):hydrOXYzine HCl (ATARAX) 25 mg tabletTake 1 tablet by mouth daily at bedtime.Disp: 30 tabletRfl: 5 lisinopril (ZESTRIL, PRINIVIL) 5 mg tabletTake 1 tablet by mouth once daily.Disp: 30 tabletRfl: 11 Prescriptions as of 01/11/2018 Sig: METFORMIN 500 MG TABLET Take 1 tablet by mouth twice * BUSPIRONE 15 MG TABLET TAKE ONE TABLET BY MOUTH TWIC* OMEPRAZOLE 40 MG CAPSULE,IGLESIA* Take 1 capsule by mouth once * FLUTICASONE 50 MCG/ACTUATION * Use 2 Sprays in each nostril * BUPROPION XL 300 MG 24 HR TAB TAKE ONE TABLET BY MOUTH EVER* LEVOTHYROXINE 125 MCG TABLET Take 1 tablet by mouth once d* MIRABEGRON ER 50 MG TABLET,EX* Take 1 tablet by mouth once d* ASPIRIN 81 MG TABLET,DELAYED * Take 1 tablet by mouth once d* HYDROXYZINE HCL 25 MG TABLET Take 1 tablet by mouth daily * LISINOPRIL 5 MG TABLET Take 1 tablet by mouth once d* PROBIOTIC (S.BOULARDII) ORAL Take by mouth once daily. Problem List As Of Date 01/11/2018 Noted Resolved Lumbago [M54.5] INVALID FOR*03/26/2016 Hypothyroidism [E03.9] Greater Trochanteric bursitis right [M76.899] INVALID FOR*03/26/2016 Sciatica [M54.30] INVALID FOR*03/26/2016 GENERALIZED ANXIETY DIS [F41.1] INVALID FOR* ESOPHAGEAL REFLUX [K21.9] INVALID FOR* Acute gastritis without mention of hemorrhage [*INVALID FOR*03/26/2016 ADJUSTMENT DISORDER WITH DEPRESSED MOOD [F43.21]INVALID FOR* BENIGN HYPERTENSION [I10] INVALID FOR* Contusion of chest wall [S20.219A] INVALID FOR*03/26/2016 Thoracic or lumbosacral neuritis or radiculitis*INVALID FOR*03/26/2016 Cluster headache syndrome [G44.009] INVALID FOR*03/26/2016 Pelvic pain in female [R10.2] INVALID FOR*03/26/2016 Chronic Interstitial Cystitis [N30.10] INVALID FOR* Cervical radiculopathy [M54.12] INVALID FOR*03/26/2016 Brachial neuritis or radiculitis NOS [M54.12] INVALID FOR*03/26/2016 Cervical disc disorder with radiculopathy [M50.*INVALID FOR*03/26/2016 Impaired glucose tolerance [R73.02] INVALID FOR* Lumbar disc disease with radiculopathy [M51.16] INVALID FOR*03/26/2016 Piriformis syndrome [G57.00] INVALID FOR*03/26/2016 Nonallopathic lesion of sacral region, not else*INVALID FOR*03/26/2016 Avascular necrosis of hip [M87.059] INVALID FOR* SI (sacroiliac) joint dysfunction [M53.3] INVALID FOR*03/26/2016 Obesity, Class III, BMI 40-49.9 (morbid obesity*INVALID FOR* Lumbar facet arthropathy (HCC) [M46.96] INVALID FOR*03/26/2016 Lumbar spondylosis [M47.816] INVALID FOR*03/26/2016 Left shoulder strain [S46.912A] INVALID FOR*10/19/2014 Left renal mass [N28.89] INVALID FOR*03/26/2016 Thoracolumbar back pain [M54.5, M54.6] INVALID FOR*03/26/2016 Unspecified gastritis and gastroduodenitis with*INVALID FOR*03/26/2016 Right sided abdominal pain [R10.9] INVALID FOR*03/26/2016 Strain of right knee and leg [S86.911A] INVALID FOR*03/26/2016 Overactive bladder [N32.81] INVALID FOR* Essential thrombocythemia (HCC) [D47.3] INVALID FOR* Leukocytosis [D72.829] INVALID FOR* More... Primary cancer of left kidney (HCC) [C64.2] INVALID FOR* Popliteal cyst, right [M71.21] INVALID FOR* Other instructions from your clinician: PLAN: healthy diet and regular activity hydroxyzine 25mg at bedtime discontinue HCTZ and start lisinopril 5mg daily same other medications nurse bp check in 2 wks. Mae Morton III Prescriptions ordered this encounter Disp Refills Start End HYDROXYZINE HCL 25 MG TABLET 30 t* 5 01/11/2018 Route: ORAL Sig: Take 1 tablet by mouth daily at bedtime. LISINOPRIL 5 MG TABLET 30 t* 11 01/11/2018 Route: ORAL Sig: Take 1 tablet by mouth once daily. Medications Discontinued During This Encounter phenazopyridine (PYRIDIUM) 200 mg ta* 6 ta* 0 12/22/2017 01/11/2018 Sig: TO BE TAKEN DIRECTED BY MOUTH ONE(1) TABLET THREE TIMES DAILY X 2 DAYS Disc: Course of therapy completed nitrofurantoin monohydrate and macro* 10 c* 0 01/06/2018 01/11/2018 Route: ORAL Sig: Take 1 capsule by mouth twice daily for 5 days. Disc: Course of therapy completed Hydrochlorothiazide 12.5 mg capsule 90 c* 4 07/25/2016 01/11/2018 Route: ORAL Sig: Take 1 capsule by mouth once daily. Disc: Clinical Decision Encounter Status:Closed by MAE MORTON III, MD on 01/11/18 PROGRESS Observed: 01/11/2018 Status: COMPLETED Source: [place] 6:59 PM [facility] [place] REPOSITORY HNO ID: [id number] Author: Mae Morton III Service: (none) Author Type: Physician Type: Progress Notes Filed: 01/11/2018 8:50 PM Note Text: SUBJECTIVE: This is a 52 year old female that is here today for 1. episodic fever/malaise. Seen in 12/22 with dysuria and urine dip + leukocytes and blood; but urine culture neg. Tx with Bactrim x 5 days. No vag sx. She continued to have bladder pressure w/o urgency. 12/28-01/02. Had some fever, then chills. Known interstitial cystitis on myrbetriq with some benefit. 2. hypertension--previoiusly had hypotension requiring admission when on hctz and lisinopril 10mg qday PAST MEDICAL HISTORY Diagnosis Date - Acute gastritis without mention of hemorrhage - Anxiety - Benign neoplasm of stomach - Cervical disc disorder with radiculopathy 02/18/2010 - Cyst of ovary 01/01/2015 [facility] - see scanned documents - Depressive disorder, not elsewhere classified - Essential thrombocythemia (HCC) 06/02/2016 - GERD (gastroesophageal reflux disease) - Hypertension 08/28/11 - IC (interstitial cystitis) - Impaired fasting glucose 04/02/2010 - Lumbar disc disease with radiculopathy 11/15/2010 - Metabolic syndrome X - Morbid obesity with BMI of 40.0-44.9, adult (HCC) 08/29/2013 - Renal cyst, left 07/03/2016 18 mm, 06/18/16 - Sciatica - SI (sacroiliac) joint dysfunction 06/04/2011 - Thoracolumbar back pain 07/20/2013 - Unspecified hypothyroidism - Urinary calculus, unspecified Renal stones Current Outpatient Prescriptions on File Prior to Visit: metFORMIN (GLUCOPHAGE) 500 mg tablet Take 1 tablet by mouth twice daily with meals. busPIRone (BUSPAR) 15 mg tablet TAKE ONE TABLET BY MOUTH TWICE DAILY Omeprazole 40 mg capsule Take 1 capsule by mouth once daily. fluticasone (FLONASE) 50 mcg/actuation nasal spray Use 2 Sprays in each nostril once daily. Rinse mouth after use. buPROPion XL (WELLBUTRIN XL) 300 mg 24 hr tablet TAKE ONE TABLET BY MOUTH EVERY DAY levothyroxine (SYNTHROID) 125 mcg tablet Take 1 tablet by mouth once daily. mirabegron (MYRBETRIQ) 50 mg Tb24 Take 1 tablet by mouth once daily. Hydrochlorothiazide 12.5 mg capsule Take 1 capsule by mouth once daily. aspirin, enteric coated (ADULT LOW DOSE ASPIRIN) 81 mg EC tablet Take 1 tablet by mouth once daily. SACCHAROMYCES BOULARDII (PROBIOTIC, S.BOULARDII, ORAL) Take by mouth once daily. No current facility-administered medications on file prior to visit. FAMILY HISTORY Problem Relation Age of Onset - Diabetes Father - Hypertension Father - Cancer Maternal Grandmother Lymphoma - Heart Maternal Grandfather hypertension - Hypertension Brother Social History Substance Use Topics - Smoking status: Never Smoker - Smokeless tobacco: Never Used - Alcohol use Yes Comment: rarely BP 144/96 Pulse 104 Temp 36.6 ?C (97.8 ?F) (Tympanic) Resp 18 Wt 121.6 kg (268 lb) BMI 46.00 kg/m? . OBJECTIVE: APPEARANCE Well appearing, alert, in no acute distress, well-hydrated, well nourished. and Morbidly obese NECK Supple, no adenopathy; thyroid symmetric, normal size, no bruits HEART RRR with normal S1 and S2, no murmurs, no gallops, no JVD appreciated LUNG clear to auscultation ABDOMEN soft, non-tender, non-distended, without organomegaly or palpable masses, no tenderness to palpation Appearance: well dressed well groomed, cooperative and pleasant Behavior: good eye contact Speech: fluent and coherent Mood: euthymic Affect: appropriate Perceptions: none Thought process: goal directed Thought Content: normal Intelligence level: normal Insight: good Judgment: good ASSESSMENT: interstitial cystitis hypertension--not at goal History of impaired fasting glucose History of hypothyroidism PLAN: healthy diet and regular activity hydroxyzine 25mg at bedtime for interstitial cystitis discontinue HCTZ and start lisinopril 5mg daily same other medications nurse bp check in 2 wks. labs as ordered Reviewed up-to-date information regarding interstitial cystitis LIU Kumar MD, III MD Observed: 01/05/2018 Status: F Source: [place] URINE CULTURE 3:23 PM [facility] REPOSITORY Culture Result - <10,000 CFU/ml Lactose positive gram negative bacilli --> ABNORMAL ALERT Insignificant colony count. No further workup. --> ABNORMAL ALERT 10,000 - <50,000 CFU/ml Normal urogenital bernabe Performed By: #### URCUL #### [facility] [address] [place], [place] [address] PROGRESS Observed: 12/22/2017 Status: COMPLETED Source: [place] 7:39 PM [facility] REPOSITORY HNO ID: [id number] Author: Leah Plascencia (Aaron) Saroj Service: (none) Author Type: Nurse Practitioner Type: Progress Notes Filed: 12/22/2017 7:41 PM Note Text: Subjective HPI Patient presents with: UTI: frequency, pressure AND burning with urination X 4-5 days States hx of interstitial cystitis Denies any otc treatment for symptoms. Review of Systems Constitutional: Negative for chills, fever and malaise/fatigue. Gastrointestinal: Negative for abdominal pain, diarrhea, nausea and vomiting. Genitourinary: Positive for dysuria and frequency. Negative for flank pain and hematuria. Denies vaginal discharge/itchiness Denies exposure to STD Musculoskeletal: Negative for back pain. All other systems reviewed and are negative. PAST MEDICAL HISTORY Diagnosis Date - Acute gastritis without mention of hemorrhage - Anxiety - Benign neoplasm of stomach - Cervical disc disorder with radiculopathy 02/18/2010 - Cyst of ovary 01/01/2015 [facility] - see scanned documents - Depressive disorder, not elsewhere classified - Essential thrombocythemia (HCC) 06/02/2016 - GERD (gastroesophageal reflux disease) - Hypertension 08/28/11 - IC (interstitial cystitis) - Impaired fasting glucose 04/02/2010 - Lumbar disc disease with radiculopathy 11/15/2010 - Metabolic syndrome X - Morbid obesity with BMI of 40.0-44.9, adult (HCC) 08/29/2013 - Renal cyst, left 07/03/2016 18 mm, 06/18/16 - Sciatica - SI (sacroiliac) joint dysfunction 06/04/2011 - Thoracolumbar back pain 07/20/2013 - Unspecified hypothyroidism - Urinary calculus, unspecified Renal stones PAST SURGICAL HISTORY Procedure Laterality Date - CYSTOSCOPY,DIL BLADDER,LOCAL ANESTH 01/18/14 - EGD W/O BRSH SPECIMEN W/BX 04/09/2007 gastritis, gastric polyps - 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 Valadez - PAST SURGICAL HISTORY OF WISDOM TEETH EXTRACTIONS - PAST SURGICAL HISTORY OF 05/2012 bladder hydrodistension X 2 - PAST SURGICAL HISTORY OF 2014 pain injection lumbar- multiple - PAST SURGICAL HISTORY OF Cyst removed from head - REMOVAL GALLBLADDER 1991 Cholecystectomy ALLERGIES Benedryl [Diphenhydramine]; Celebrex [Celecoxib]; Erythromycin; Prochlorperazine; Toradol [Ketorolac]; Vesicare [Solifenacin] MEDICATIONS busPIRone (BUSPAR) 15 mg tablet TAKE ONE TABLET BY MOUTH TWICE DAILY metFORMIN (GLUCOPHAGE) 500 mg tablet Take 1 tablet by mouth twice daily with meals. Omeprazole 40 mg capsule Take 1 capsule by mouth once daily. buPROPion XL (WELLBUTRIN XL) 300 mg 24 hr tablet TAKE ONE TABLET BY MOUTH EVERY DAY levothyroxine (SYNTHROID) 125 mcg tablet Take 1 tablet by mouth once daily. mirabegron (MYRBETRIQ) 50 mg Tb24 Take 1 tablet by mouth once daily. Hydrochlorothiazide 12.5 mg capsule Take 1 capsule by mouth once daily. aspirin, enteric coated (ADULT LOW DOSE ASPIRIN) 81 mg EC tablet Take 1 tablet by mouth once daily. SACCHAROMYCES BOULARDII (PROBIOTIC, S.BOULARDII, ORAL) Take by mouth once daily. sulfamethoxazole-trimethoprim (BACTRIM DS) 800-160 mg per tablet Take 1 tablet by mouth twice daily. phenazopyridine (PYRIDIUM) 200 mg tablet TO BE TAKEN DIRECTED BY MOUTH ONE(1) TABLET THREE TIMES DAILY X 2 DAYS fluconazole (DIFLUCAN) 150 mg tablet Take 1 tablet by mouth once daily for 1 day. fluticasone (FLONASE) 50 mcg/actuation nasal spray Use 2 Sprays in each nostril once daily. Rinse mouth after use. FAMILY HISTORY Problem Relation Age of Onset - Diabetes Father - Hypertension Father - Cancer Maternal Grandmother Lymphoma - Heart Maternal Grandfather hypertension - Hypertension Brother Social History Substance Use Topics - Smoking status: Never Smoker - Smokeless tobacco: Never Used - Alcohol use Yes Comment: rarely Objective Physical Exam Constitutional: She is well-developed, well-nourished, and in no distress. HENT: Head: Normocephalic. Eyes: Conjunctivae are normal. Neck: Normal range of motion. Cardiovascular: Normal rate, regular rhythm and normal heart sounds. Pulmonary/Chest: Effort normal and breath sounds normal. Abdominal: Soft. She exhibits no distension. There is no tenderness. There is no rebound, no guarding and no CVA tenderness. Skin: Skin is warm and dry. No rash noted. Nursing note and vitals reviewed. ASSESSMENT/PLAN: 1. Dysuria - ICD9: 788.1, ICD10: R30.0 acute - UA positive for ella esterase, hematuria and proteinuria - Send urine for culture - Begin treatment with Bactrim DS BID for 5 days - Patient education for prevention given - UA DIP B/O - URINE CULTURE Prescription instructions reviewed with patient as applicable. Patient advised if symptoms do not improve or if symptoms worsen sooner, to contact their primary care physician. Potential red flag symptoms discussed with the patient. Reviewed appropriate action plan to take if red flag symptoms occur. Patient agreeable to treatment plan. Leah Kyle APRN.TOBACCO DRUMMER Observed: 12/22/2017 Status: F Source: [place] URINE CULTURE 7:35 PM [facility] REPOSITORY Sp. Request/Comment: - Specimen received in preservative Culture Result - <10,000 CFU/ml Streptococcus agalactiae (Group B streptococcus) --> ABNORMAL ALERT No further workup --> ABNORMAL ALERT 10,000 - <50,000 CFU/ml Normal urogenital bernabe Performed By: #### URCUL #### [facility] [address] [place], [place] [address] CNOV Observed: 12/22/2017 Status: COMPLETED Source: [place] 7:15 PM [facility] REPOSITORY Office Visit (WSTR) RICHARPAYTON ([id number]) 1965 F Date Time Provider Department 12/22/17 7:15 PM LEAH KYLE (AARON) [facility] During your visit today, we recorded the following information about you: Temperature Pulse Respiration Blood pressure 98.4 degrees 84/minute 20/minute 146/80 Weight 120.2 kg Leah Kyle APRN.CNP 12/22/2017 7:36 PM Signed Patient Education for Female Urinary Tract Infections Possible complications: Pyelonehritis Renal abscess Expected course/prognosis: * symptoms resolve within 2-3 days after starting treatment in almost all patients * one-fourth of women with simple UTI experience a second UTI within 6 months, and half at some time during lifetime. * patients with multiple recurrent UTI and no underlying urinary tract abnormality may receive long-term prophylactic antibioitic treatment. Trimethoprim-sulfamethoxazole and nitrofurantoin common used. * women with frequent or intercourse-related UTI should empty bladder immediately before and following intercourse and consider postcoital antibiotic treament Instructions: * Maintain good hydration * Avoid sexual intercourse when symptoms present *Take antibiotic as directed * Return if symptoms not resolved or markedly improved within 48 hours * Return if fever, chills, or flank pain develop * If taking prophylactic antiobiotics, take at bedtime * Take showers instead of tub baths * Avoid feminine hygiene sprays and scented douches * Wipe urethra from front to back Please call or return to the office if you are not feeling better in 5-7 days. You can try taking OTC Uristat (pyridium) if needed for burning. Beware that it will turn your urine orange/red. Leah Kyle APRN.CNP 12/22/2017 7:41 PM Signed Subjective HPI Patient presents with: UTI: frequency, pressure AND burning with urination X 4-5 days States hx of interstitial cystitis Denies any otc treatment for symptoms. Review of Systems Constitutional: Negative for chills, fever and malaise/fatigue. Gastrointestinal: Negative for abdominal pain, diarrhea, nausea and vomiting. Genitourinary: Positive for dysuria and frequency. Negative for flank pain and hematuria. Denies vaginal discharge/itchiness Denies exposure to STD Musculoskeletal: Negative for back pain. All other systems reviewed and are negative. PAST MEDICAL HISTORY Diagnosis Date - Acute gastritis without mention of hemorrhage - Anxiety - Benign neoplasm of stomach - Cervical disc disorder with radiculopathy 02/18/2010 - Cyst of ovary 01/01/2015 [facility] - see scanned documents - Depressive disorder, not elsewhere classified - Essential thrombocythemia (HCC) 06/02/2016 - GERD (gastroesophageal reflux disease) - Hypertension 08/28/11 - IC (interstitial cystitis) - Impaired fasting glucose 04/02/2010 - Lumbar disc disease with radiculopathy 11/15/2010 - Metabolic syndrome X - Morbid obesity with BMI of 40.0-44.9, adult ([facility]) 08/29/2013 - Renal cyst, left 07/03/2016 18 mm, 06/18/16 - Sciatica - SI (sacroiliac) joint dysfunction 06/04/2011 - Thoracolumbar back pain 07/20/2013 - Unspecified hypothyroidism - Urinary calculus, unspecified Renal stones PAST SURGICAL HISTORY Procedure Laterality Date - CYSTOSCOPY,DIL BLADDER,LOCAL ANESTH 01/18/14 - EGD W/O [facility] SPECIMEN W/BX 04/09/2007 gastritis, gastric polyps - 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 Valadez - PAST SURGICAL HISTORY OF WISDOM TEETH EXTRACTIONS - PAST SURGICAL HISTORY OF 05/2012 bladder hydrodistension X 2 - PAST SURGICAL HISTORY OF 2014 pain injection lumbar- multiple - PAST SURGICAL HISTORY OF Cyst removed from head - REMOVAL GALLBLADDER 1991 Cholecystectomy ALLERGIES Benedryl [Diphenhydramine]; Celebrex [Celecoxib]; Erythromycin; Prochlorperazine; Toradol [Ketorolac]; Vesicare [Solifenacin] MEDICATIONS busPIRone (BUSPAR) 15 mg tablet TAKE ONE TABLET BY MOUTH TWICE DAILY metFORMIN (GLUCOPHAGE) 500 mg tablet Take 1 tablet by mouth twice daily with meals. Omeprazole 40 mg capsule Take 1 capsule by mouth once daily. buPROPion XL (WELLBUTRIN XL) 300 mg 24 hr tablet TAKE ONE TABLET BY MOUTH EVERY DAY levothyroxine (SYNTHROID) 125 mcg tablet Take 1 tablet by mouth once daily. mirabegron (MYRBETRIQ) 50 mg Tb24 Take 1 tablet by mouth once daily. Hydrochlorothiazide 12.5 mg capsule Take 1 capsule by mouth once daily. aspirin, enteric coated (ADULT LOW DOSE ASPIRIN) 81 mg EC tablet Take 1 tablet by mouth once daily. SACCHAROMYCES BOULARDII (PROBIOTIC, S.BOULARDII, ORAL) Take by mouth once daily. sulfamethoxazole-trimethoprim (BACTRIM DS) 800-160 mg per tablet Take 1 tablet by mouth twice daily. phenazopyridine (PYRIDIUM) 200 mg tablet TO BE TAKEN DIRECTED BY MOUTH ONE(1) TABLET THREE TIMES DAILY X 2 DAYS fluconazole (DIFLUCAN) 150 mg tablet Take 1 tablet by mouth once daily for 1 day. fluticasone (FLONASE) 50 mcg/actuation nasal spray Use 2 Sprays in each nostril once daily. Rinse mouth after use. FAMILY HISTORY Problem Relation Age of Onset - Diabetes Father - Hypertension Father - Cancer Maternal Grandmother Lymphoma - Heart Maternal Grandfather hypertension - Hypertension Brother Social History Substance Use Topics - Smoking status: Never Smoker - Smokeless tobacco: Never Used - Alcohol use Yes Comment: rarely Objective Physical Exam Constitutional: She is well-developed, well-nourished, and in no distress. HENT: Head: Normocephalic. Eyes: Conjunctivae are normal. Neck: Normal range of motion. Cardiovascular: Normal rate, regular rhythm and normal heart sounds. Pulmonary/Chest: Effort normal and breath sounds normal. Abdominal: Soft. She exhibits no distension. There is no tenderness. There is no rebound, no guarding and no CVA tenderness. Skin: Skin is warm and dry. No rash noted. Nursing note and vitals reviewed. ASSESSMENT/PLAN: 1. Dysuria - ICD9: 788.1, ICD10: R30.0 acute - UA positive for ella esterase, hematuria and proteinuria - Send urine for culture - Begin treatment with Bactrim DS BID for 5 days - Patient education for prevention given - UA DIP B/O - URINE CULTURE Prescription instructions reviewed with patient as applicable. Patient advised if symptoms do not improve or if symptoms worsen sooner, to contact their primary care physician. Potential red flag symptoms discussed with the patient. Reviewed appropriate action plan to take if red flag symptoms occur. Patient agreeable to treatment plan. Leah Kyle APRN.TOBACCO DRUMMER Referring Provider: SELF [[id number]] Allergies As of Date: 12/22/2017 Noted Allergy Reaction BENEDRYL (DIPHENHYDRAMINE) 04/25/2009 14 - Other: See Comments Comments: hyperactive CELEBREX (CELECOXIB) 05/28/2005 Comments: upsets stomach after prolonged use ie. 6 weeks ERYTHROMYCIN 02/05/2005 8 - GI Upset PROCHLORPERAZINE 09/29/2016 1 - Mental Status Change Comments: Agitation, felt ill TORADOL (KETOROLAC) 01/15/2015 11 - Vomiting VESICARE (SOLIFENACIN) 11/20/2009 2 - Rash Date Reviewed: 12/22/2017 Reviewed by: Adele Russo LPN - Fully Assessed Reason for Visit: UTI [116] Cmt: frequency, pressure AND burning with urination X 4-5 days Primary Visit Diagnosis:Dysuria [R30.0] Order(s):UA DIP B/O [[id number]] Order #: [id number] URINE CULTURE [SQURCUL] Order #: [id number] sulfamethoxazole-trimethoprim (BACTRIM DS) 800-160 mg per tabletTake 1 tablet by mouth twice daily.Disp: 10 tabletRfl: 0 phenazopyridine (PYRIDIUM) 200 mg tabletTO BE TAKEN DIRECTED BY MOUTH ONE(1) TABLET THREE TIMES DAILY X 2 DAYSDisp: 6 tabletRfl: 0 fluconazole (DIFLUCAN) 150 mg tabletTake 1 tablet by mouth once daily for 1 day.Disp: 1 tabletRfl: 0 Prescriptions as of 12/22/2017 Sig: BUSPIRONE 15 MG TABLET TAKE ONE TABLET BY MOUTH TWIC* METFORMIN 500 MG TABLET Take 1 tablet by mouth twice * OMEPRAZOLE 40 MG CAPSULE,IGLESIA* Take 1 capsule by mouth once * BUPROPION XL 300 MG 24 HR TAB TAKE ONE TABLET BY MOUTH EVER* LEVOTHYROXINE 125 MCG TABLET Take 1 tablet by mouth once d* MIRABEGRON ER 50 MG TABLET,EX* Take 1 tablet by mouth once d* HYDROCHLOROTHIAZIDE 12.5 MG C* Take 1 capsule by mouth once * ASPIRIN 81 MG TABLET,DELAYED * Take 1 tablet by mouth once d* PROBIOTIC (S.BOULARDII) ORAL Take by mouth once daily. SULFAMETHOXAZOLE 800 MG-TRIME* Take 1 tablet by mouth twice * PHENAZOPYRIDINE 200 MG TABLET TO BE TAKEN DIRECTED BY MO* FLUCONAZOLE 150 MG TABLET Take 1 tablet by mouth once d* FLUTICASONE 50 MCG/ACTUATION * Use 2 Sprays in each nostril * Patient not taking: Reported on 12/22/2017 Problem List As Of Date 12/22/2017 Noted Resolved Lumbago [M54.5] INVALID FOR*03/26/2016 Hypothyroidism [E03.9] Greater Trochanteric bursitis right [M76.899] INVALID FOR*03/26/2016 Sciatica [M54.30] INVALID FOR*03/26/2016 GENERALIZED ANXIETY DIS [F41.1] INVALID FOR* ESOPHAGEAL REFLUX [K21.9] INVALID FOR* Acute gastritis without mention of hemorrhage [*INVALID FOR*03/26/2016 ADJUSTMENT DISORDER WITH DEPRESSED MOOD [F43.21]INVALID FOR* BENIGN HYPERTENSION [I10] INVALID FOR* Contusion of chest wall [S20.219A] INVALID FOR*03/26/2016 Thoracic or lumbosacral neuritis or radiculitis*INVALID FOR*03/26/2016 Cluster headache syndrome [G44.009] INVALID FOR*03/26/2016 Pelvic pain in female [R10.2] INVALID FOR*03/26/2016 Chronic Interstitial Cystitis [N30.10] INVALID FOR* Cervical radiculopathy [M54.12] INVALID FOR*03/26/2016 Brachial neuritis or radiculitis NOS [M54.12] INVALID FOR*03/26/2016 Cervical disc disorder with radiculopathy [M50.*INVALID FOR*03/26/2016 Impaired glucose tolerance [R73.02] INVALID FOR* Lumbar disc disease with radiculopathy [M51.16] INVALID FOR*03/26/2016 Piriformis syndrome [G57.00] INVALID FOR*03/26/2016 Nonallopathic lesion of sacral region, not else*INVALID FOR*03/26/2016 Avascular necrosis of hip [M87.059] INVALID FOR* SI (sacroiliac) joint dysfunction [M53.3] INVALID FOR*03/26/2016 Obesity, Class III, BMI 40-49.9 (morbid obesity*INVALID FOR* Lumbar facet arthropathy (HCC) [M46.96] INVALID FOR*03/26/2016 Lumbar spondylosis [M47.816] INVALID FOR*03/26/2016 Left shoulder strain [S46.912A] INVALID FOR*10/19/2014 Left renal mass [N28.89] INVALID FOR*03/26/2016 Thoracolumbar back pain [M54.5, M54.6] INVALID FOR*03/26/2016 Morbid obesity with BMI of 40.0-44.9, adult [E6*INVALID FOR* Unspecified gastritis and gastroduodenitis with*INVALID FOR*03/26/2016 Right sided abdominal pain [R10.9] INVALID FOR*03/26/2016 Strain of right knee and leg [S86.911A] INVALID FOR*03/26/2016 Overactive bladder [N32.81] INVALID FOR* Metabolic syndrome X [E88.81] INVALID FOR* Essential thrombocythemia (HCC) [D47.3] INVALID FOR* Leukocytosis [D72.829] INVALID FOR* Renal cyst, left [N28.1] INVALID FOR* More... Primary cancer of left kidney (HCC) [C64.2] INVALID FOR* Renal mass, left [N28.89] INVALID FOR* Left renal mass [N28.89] INVALID FOR* Popliteal cyst, right [M71.21] INVALID FOR* Other instructions from your clinician: Patient Education for Female Urinary Tract Infections Possible complications: Pyelonehritis Renal abscess Expected course/prognosis: * symptoms resolve within 2-3 days after starting treatment in almost all patients * one-fourth of women with simple UTI experience a second UTI within 6 months, and half at some time during lifetime. * patients with multiple recurrent UTI and no underlying urinary tract abnormality may receive long-term prophylactic antibioitic treatment. Trimethoprim-sulfamethoxazole and nitrofurantoin common used. * women with frequent or intercourse-related UTI should empty bladder immediately before and following intercourse and consider postcoital antibiotic treament Instructions: * Maintain good hydration * Avoid sexual intercourse when symptoms present *Take antibiotic as directed * Return if symptoms not resolved or markedly improved within 48 hours * Return if fever, chills, or flank pain develop * If taking prophylactic antiobiotics, take at bedtime * Take showers instead of tub baths * Avoid feminine hygiene sprays and scented douches * Wipe urethra from front to back Please call or return to the office if you are not feeling better in 5-7 days. You can try taking OTC Uristat (pyridium) if needed for burning. Beware that it will turn your urine orange/red. Prescriptions ordered this encounter Disp Refills Start End SULFAMETHOXAZOLE 800 MG-TRIMETHOPRIM* 10 t* 0 12/22/2017 Route: ORAL Sig: Take 1 tablet by mouth twice daily. PHENAZOPYRIDINE 200 MG TABLET 6 ta* 0 12/22/2017 Sig: TO BE TAKEN DIRECTED BY MOUTH ONE(1) TABLET THREE TIMES DAILY X 2 DAYS FLUCONAZOLE 150 MG TABLET 1 ta* 0 12/22/2017 12/23/2017 Route: ORAL Sig: Take 1 tablet by mouth once daily for 1 day. Disposition: Return if symptoms worsen or fail to improve. Follow-up and Disposition History Recorded Encounter Status:Closed by LEAH KYLE on 12/22/17 SCREENING MAMM (CAD), Observed: 12/10/2017 Status: F Source: [facility] 12:38 PM [facility] REPOSITORY [facility] Imaging Services [address] [place] [id number] SCREENING MAMM (CAD), [facility] MR#: [id number] Acct: [id number] Name: PAYTON MCQUEEN Rep #: [id number] : 1965 F 52 From: Leo Tipton MD PCP: Mae Morton III, MD Status: REG CLI Study: SCREENING MAMM (CAD), [facility] Date of Exam: 12/10/17 Exam# [id number] Ordering Dr: Mae Morton III, MD MAMMOGRAPHY - BILATERAL SCREENING REASON FOR EXAM: Female, 52 years old. Routine annual screening examination. PERTINENT HISTORY: Aunt with breast cancer. TECHNIQUE: Digital bilateral breast lakeshia (3D mammographic acquisition) in the CC and MLO projections. 2-D mediolateral oblique (MLO) and craniocaudad (CC) views of both breasts were obtained. CAD: Full Field Digital Mammography with Computer Added Detection was performed. COMPARISON: Comparison is made with prior examination dated July 10, 2016 and November 06, 2014. FINDINGS: Breast Composition: The breasts are almost entirely fatty. There are no dominant masses or suspicious calcifications. Stable benign-appearing bilateral axillary lymph nodes. No other significant abnormalities are identified. There has been no significant change since the prior study. BI/SCREENING MAMM (CAD), BILAT IMPRESSION: Stable bilateral screening mammogram. Yearly follow-up mammogram recommended. (A) ASSESSMENT CATEGORY: BIRADS Category 2: Benign. A letter regarding these results will be sent to the patient by the facility within 30 days. Approximately 10% of breast cancers are not detected by mammography. A normal mammogram should not delay biopsy of a clinically suspicious abnormality. [id number] Electronically Signed: Leo Tipton MD at 14:20 EDT Tel [phone], Service support , CC: Mae Morton III, MD Nitric Acid Concentrator Operator: Signed PROGRESS Observed: 11/16/2017 Status: COMPLETED Source: [place] 2:46 PM [facility] [place] REPOSITORY [facility] ID: [id number] Author: Geeta Cano (Pa) Service: (none) Author Type: Physician Zookeeper Type: Progress Notes Filed: 11/16/2017 2:51 PM Note Text: FOLLOW UP VISIT - ABSCESS NAME: Payton Caicedo [facility] NO.: [id number] DATE OF SERVICE: 11/16/2017 : 1965 REFERRING PHYSICIAN: Mae Morton III MD Payton is a patient I am following for an infected sebaceous cyst on her back. Dr. Hansen performed an incision and drainage of the infected cyst on 11/04/17. The patient notes no complaints of fever since the procedure. Pain has been minimal to none. VITALS: There were no vitals taken for this visit. On examination, the incision site is viable with no drainage noted, good granulation tissue noted. Assessment IMPRESSION: Status post incision and drainage of infected sebaceous cyst PLAN: -Cleanse wound with soap and water in shower -Keep covered until closed Diagnoses: (L72.3, L08.9) Infected sebaceous cyst (primary encounter diagnosis) Return to Clinic: The patient is instructed to follow- up with me as needed. Geeta Cano PA-C CNOV Observed: 11/16/2017 Status: COMPLETED Source: [place] 2:30 PM [facility] REPOSITORY Office Visit (GENSWS) PAYTON MCQUEEN ([id number]) 1965 F Date Time Provider Department 11/16/17 2:30 PM GEETA CANO (PA) During your visit today, we recorded the following information about you: Geeta Cano PA-C 11/16/2017 2:37 PM Signed -Cleanse wound with soap and water in shower -Keep covered until closed Geeta Cano PA-C 11/16/2017 2:51 PM Signed FOLLOW UP VISIT - ABSCESS NAME: Payotn Mcqueen [facility] NO.: [id number] DATE OF SERVICE: 11/16/2017 : 1965 REFERRING PHYSICIAN: Mae Morton, III MD Cain is a patient I am following for an infected sebaceous cyst on her back. Dr. Hansen performed an incision and drainage of the infected cyst on 11/04/17. The patient notes no complaints of fever since the procedure. Pain has been minimal to none. VITALS: There were no vitals taken for this visit. On examination, the incision site is viable with no drainage noted, good granulation tissue noted. Assessment IMPRESSION: Status post incision and drainage of infected sebaceous cyst PLAN: -Cleanse wound with soap and water in shower -Keep covered until closed Diagnoses: (L72.3, L08.9) Infected sebaceous cyst (primary encounter diagnosis) Return to Clinic: The patient is instructed to follow- up with me as needed. Geeta Cano PA-C Referring Provider: MAE MORTON III [[id number]] Allergies As of Date: 11/16/2017 Noted Allergy Reaction BENEDRYL (DIPHENHYDRAMINE) 04/25/2009 14 - Other: See Comments Comments: hyperactive CELEBREX (CELECOXIB) 05/28/2005 Comments: upsets stomach after prolonged use ie. 6 weeks ERYTHROMYCIN 02/05/2005 8 - GI Upset PROCHLORPERAZINE 09/29/2016 1 - Mental Status Change Comments: Agitation, felt ill TORADOL (KETOROLAC) 01/15/2015 11 - Vomiting VESICARE (SOLIFENACIN) 11/20/2009 2 - Rash Date Reviewed: 11/16/2017 Reviewed by: Geeta Cano (Pa) - Fully Assessed Reason for Visit: Post Op [174] Primary Visit Diagnosis:Infected sebaceous cyst [L72.3, L08.9] Prescriptions as of 11/16/2017 Sig: BUSPIRONE 15 MG TABLET TAKE ONE TABLET BY MOUTH TWIC* METFORMIN 500 MG TABLET Take 1 tablet by mouth twice * OMEPRAZOLE 40 MG CAPSULE,IGLESIA* Take 1 capsule by mouth once * FLUTICASONE 50 MCG/ACTUATION * Use 2 Sprays in each nostril * BUPROPION XL 300 MG 24 HR TAB TAKE ONE TABLET BY MOUTH EVER* LEVOTHYROXINE 125 MCG TABLET Take 1 tablet by mouth once d* MIRABEGRON ER 50 MG TABLET,EX* Take 1 tablet by mouth once d* HYDROCHLOROTHIAZIDE 12.5 MG C* Take 1 capsule by mouth once * ASPIRIN 81 MG TABLET,DELAYED * Take 1 tablet by mouth once d* PROBIOTIC (S.BOULARDII) ORAL Take by mouth once daily. Problem List As Of Date 11/16/2017 Noted Resolved Lumbago [M54.5] INVALID FOR*03/26/2016 Hypothyroidism [E03.9] Greater Trochanteric bursitis right [M76.401] INVALID FOR*03/26/2016 Sciatica [M54.30] INVALID FOR*03/26/2016 GENERALIZED ANXIETY DIS [F41.1] INVALID FOR* ESOPHAGEAL REFLUX [K21.9] INVALID FOR* Acute gastritis without mention of hemorrhage [*INVALID FOR*03/26/2016 ADJUSTMENT DISORDER WITH DEPRESSED MOOD [F43.21]INVALID FOR* BENIGN HYPERTENSION [I10] INVALID FOR* Contusion of chest wall [S20.219A] INVALID FOR*03/26/2016 Thoracic or lumbosacral neuritis or radiculitis*INVALID FOR*03/26/2016 Cluster headache syndrome [G44.009] INVALID FOR*03/26/2016 Pelvic pain in female [R10.2] INVALID FOR*03/26/2016 Chronic Interstitial Cystitis [N30.10] INVALID FOR* Cervical radiculopathy [M54.12] INVALID FOR*03/26/2016 Brachial neuritis or radiculitis NOS [M54.12] INVALID FOR*03/26/2016 Cervical disc disorder with radiculopathy [M50.*INVALID FOR*03/26/2016 Impaired glucose tolerance [R73.02] INVALID FOR* Lumbar disc disease with radiculopathy [M51.16] INVALID FOR*03/26/2016 Piriformis syndrome [G57.00] INVALID FOR*03/26/2016 Nonallopathic lesion of sacral region, not else*INVALID FOR*03/26/2016 Avascular necrosis of hip [M87.059] INVALID FOR* SI (sacroiliac) joint dysfunction [M53.3] INVALID FOR*03/26/2016 Obesity, Class III, BMI 40-49.9 (morbid obesity*INVALID FOR* Lumbar facet arthropathy (HCC) [M46.96] INVALID FOR*03/26/2016 Lumbar spondylosis [M47.816] INVALID FOR*03/26/2016 Left shoulder strain [S46.912A] INVALID FOR*10/19/2014 Left renal mass [N28.89] INVALID FOR*03/26/2016 Thoracolumbar back pain [M54.5, M54.6] INVALID FOR*03/26/2016 Morbid obesity with BMI of 40.0-44.9, adult [E6*INVALID FOR* Unspecified gastritis and gastroduodenitis with*INVALID FOR*03/26/2016 Right sided abdominal pain [R10.9] INVALID FOR*03/26/2016 Strain of right knee and leg [S86.911A] INVALID FOR*03/26/2016 Overactive bladder [N32.81] INVALID FOR* Metabolic syndrome X [E88.81] INVALID FOR* Essential thrombocythemia (HCC) [D47.3] INVALID FOR* Leukocytosis [D72.829] INVALID FOR* Renal cyst, left [N28.1] INVALID FOR* More... Primary cancer of left kidney (HCC) [C64.2] INVALID FOR* Renal mass, left [N28.89] INVALID FOR* Left renal mass [N28.89] INVALID FOR* Popliteal cyst, right [M71.21] INVALID FOR* Other instructions from your clinician: -Cleanse wound with soap and water in shower -Keep covered until closed Follow-up and Disposition History Recorded Encounter Status:Closed by GEETA CANO PA-C on 11/16/17 PROGRESS Observed: 11/05/2017 Status: COMPLETED Source: [place] 4:18 PM [facility] REPOSITORY [facility] ID: [id number] Author: Zachary Hansen Service: (none) Author Type: Physician Type: Progress Notes Filed: 11/05/2017 4:25 PM Note Text: HISTORY AND PHYSICAL Payton Mcqueen 1965 REFERRING PHYSICIAN: Mae Morton III, MD CHIEF COMPLAINT: Consult (Consult Abscess on back?) HPI: Payton is a 52 year old female with a complaint of a ruptured left upper back sebaceous cyst/ abscess. she has noticed this abscess for the past few weeks. she denies purulent discharge from the abscess. she denies a history of diabetes. She really only notes some burning in the area, and denies true pain. She denies fever or chills The patient takes aspirin for essential thrombocytosis. The patient is being seen by me today at the request of Dr. Mae Morton III MD for my opinion and advice regarding ruptured sebaceous cyst in her upper left back. SIGNIFICANT MEDICAL PROBLEMS: PAST MEDICAL HISTORY Diagnosis Date - Acute gastritis without mention of hemorrhage - Anxiety - Benign neoplasm of stomach - Cervical disc disorder with radiculopathy 02/18/2010 - Cyst of ovary 01/01/2015 [facility] - see scanned documents - Depressive disorder, not elsewhere classified - Essential thrombocythemia (HCC) 06/02/2016 - GERD (gastroesophageal reflux disease) - Hypertension 08/28/11 - IC (interstitial cystitis) - Impaired fasting glucose 04/02/2010 - Lumbar disc disease with radiculopathy 11/15/2010 - Metabolic syndrome X - Morbid obesity with BMI of 40.0-44.9, adult (HCC) 08/29/2013 - Renal cyst, left 07/03/2016 18 mm, 06/18/16 - Sciatica - SI (sacroiliac) joint dysfunction 06/04/2011 - Thoracolumbar back pain 07/20/2013 - Unspecified hypothyroidism - Urinary calculus, unspecified Renal stones OPERATIONS: PAST SURGICAL HISTORY Procedure Laterality Date - CYSTOSCOPY,DIL BLADDER,LOCAL ANESTH 01/18/14 - EGD W/O [facility] SPECIMEN W/BX 04/09/2007 gastritis, gastric polyps - 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 Disp: 180 tablet Rfl: 0 Omeprazole 40 mg capsule Take 1 capsule by mouth once daily. Disp: 90 capsule Rfl: 3 fluticasone (FLONASE) 50 mcg/actuation nasal spray Use 2 Sprays in each nostril once daily. Rinse mouth after use. Disp: 1 Bottle Rfl: 0 buPROPion XL (WELLBUTRIN XL) 300 mg 24 hr tablet TAKE ONE TABLET BY MOUTH EVERY DAY Disp: 90 tablet Rfl: 3 levothyroxine (SYNTHROID) 125 mcg tablet Take 1 tablet by mouth once daily. Disp: 90 tablet Rfl: 3 mirabegron (MYRBETRIQ) 50 mg Tb24 Take 1 tablet by mouth once daily. Disp: 90 tablet Rfl: 3 Hydrochlorothiazide 12.5 mg capsule Take 1 capsule by mouth once daily. Disp: 90 capsule Rfl: 4 aspirin, enteric coated (ADULT LOW DOSE ASPIRIN) 81 mg EC tablet Take 1 tablet by mouth once daily. Disp: 100 tablet Rfl: 2 SACCHAROMYCES BOULARDII (PROBIOTIC, S.BOULARDII, ORAL) Take by mouth once daily. Disp: Rfl: No current facility-administered medications for this visit. ALLERGIES: Benedryl [Diphenhydramine]; Celebrex [Celecoxib]; Erythromycin; Prochlorperazine; Toradol [Ketorolac]; Vesicare [Solifenacin] PERSONAL HISTORY: Social History Marital status: Single Spouse name: Years of education: Number of children: 0 Occupational History Occupation Employer Comment [employer] Social History Main Topics Smoking status: Never Smoker Smokeless tobacco: Never Used Alcohol use: Yes Comment: rarely Drug use: No Sexual activity: Not Currently control/protection: Condom, Pill FAMILY HISTORY: FAMILY HISTORY Problem Relation Age of Onset - Diabetes Father - Hypertension Father - Cancer Maternal Grandmother Lymphoma - Heart Maternal Grandfather hypertension - Hypertension Brother REVIEW OF SYMPTOMS: The review of systems data was entered by the nurse and reviewed by me Nursing Notes: Jeyson Whaley LPN 11/05/2017 3:02 PM Signed REVIEW OF SYSTEMS: General: The patient notes fatigue, denies weight loss, denies weight gain, denies feeling hot, and denies feelings of cold. Eyes: The patient denies glaucoma, denies eye injury/surgery, wears glasses or contacts. Ear/Nose/Throat: The patient denies allergies, denies hayfever, denies ear infections, and denies bloody noses. Cardiovascular: The patient denies chest pain, denies heart disease, NOTES high blood pressure,denies cardiac stent, denies prior heart attack, denies irregular heart beat, denies high cholesterol, denies poor circulation, denies heart failure, other cardiac issues, denies claudication, denies cold feet, denies peripheral arterial stent. Respiratory: The patient denies tuberculosis, denies pneumonia, denies frequent cough, denies pulmonary embolism, denies shortness of breath, and denies coughing up blood. Gastrointestinal: The patient denies difficulty swallowing, NOTES acid reflux, denies ulcers, denies vomiting, denies jaundice/hepatitis, denies gallbladder problems, denies black or tarry stools, denies hemorrhoids, denies bleeding from rectum, denies diverticulitis, denies constipation, denies diarrhea, denies loss of stool control, and denies hernias. Kidney/Bladder: The patient NOTES kidney stones, NOTES urine infections, and denies bloody urine. Skin: The patient denies a history of skin cancer, denies bleeding/changing moles, and denies a history of skin rash. Neurologic: The patient denies a history of epilepsy/convulsions, denies headaches, denies head/spinal injuries, and denies stroke/TIA. Psychiatric: The patient denies psychiatric medications, NOTES depression, and denies voices, denies substance abuse. Endocrine: The patient NOTES thyroid disorders, denies diabetes, and denies hormonal problems. Hematologic: The patient denies a history of bruising, denies bleeding, and denies anemia, denies blood clots. Infections: The patient NOTES a history of measles and mumps, denies rheumatic fever, and denies sexually transmitted diseases. Musculoskeletal: The patient NOTES back pain/injury, denies back problems, NOTES sciatica, denies knee/foot trouble, denies arthritis, or denies gout. When was patient's last Mammogram screening? 07/11 Last Colonoscopy: n/a Jeyson Whaley LPN PHYSICAL EXAMINATION: General: The patient is 52 year old female, well nourished, well hydrated in no acute distress. The patient is oriented to time, place, and person. VITALS: There were no vitals taken for this visit. There is no height or weight on file to calculate BMI. HEENT: Normal cephalic, atraumatic, pupils are equally round, sclera are anicteric, mucous membranes are moist, oropharynx is clear. Neck has no masses, asymmetry or lymphadenopathy. Thyroid is unremarkable. Respiratory: Clear to auscultation and percussion. Normal respiratory excursion and pattern. Cardiac: Examination is regular rate and rhythm. Abdominal exam: Soft, nontender, with no palpable masses. No hepatosplenomegaly. No palpable hernias. Rectal exam: Normal external anatomy, no significant hemorrhoids or masses. Digital rectal exam - normal tone, no masses or other abnormalities, stool in vault, hemoccult negative. Extremities: no clubbing, cyanosis or edema. No adenopathy. Other: back Abscess - a 3cm x 3cm area of fluctuance with a 2cm x 2cm area of surrounding erythema. The skin overlying the point of maximal fluctance is viable. LABORATORY VALUES: As Noted RADIOLOGIC STUDIES: As Noted PROCEDURE: INCISION AND DRAINAGE OF SEBCEOUS CYST/ BACK ABSCESS After consent was obtained and the site, person, and procedure verified, the patient`s skin was prepped and draped in the usual fashion. A combination of Lidocaine and Marcaine was injected into the skin. A linear incision was made over the point of maximal fluctuance. A large amount of caseous materal was drained. The distal wall was then dissected nearly completely as visualized from the sebaceous cyst cavity. The cavity was packed with iodoform gauze. The patient tolerated the procedure well. Assessment IMPRESSION: STATUS POST INCISION AND DRAINAGE OF SEBACEOUS CYST ABSCESS PLAN: Payton is instructed to remove the packing in 1 days. If the dressing becomes soaked or had significant drainage, the dressing should be changed. If there is minor bleeding from this skin edge, the patient should hold pressure on the incision. If there is continued bleeding, the patient should contact our office immediately. The patient should wash the wound with gentle soap and water. she may shower. The wound should not be immersed in a pool, bathtub, or even hot tub. My findings have been communicated to Dr. Mae Morton III MD via shared medical record. This note will be forwarded to Dr. Mae Morton III MD. Diagnoses: (L72.0) Ruptured sebaceous cyst (primary encounter diagnosis) Return to Clinic: The patient is instructed to follow-up with me as needed. Zachary Hansen MD PROGRESS Observed: 11/05/2017 Status: COMPLETED Source: [place] 3:32 PM [facility] REPOSITORY HNO ID: [id number] Author: Jeyson Whaley LPN Service: (none) Author Type: (none) Type: Progress Notes Filed: 11/05/2017 4:25 PM Note Text: UNIVERSAL PROTOCOL / SAFETY CHECKLIST Procedure to be performed: IANDD of Lt upper back sebaceous cyst Sign in Communication: Completed Time Out: Team Confirms the Correct Patient, Correct Procedure, Correct Site and Site Marking, Correct Position (if applicable), Prep and Dry Time (if applicable). Time: 1533 Affirmation of Time Out: N/A Sign Out Discussion: Completed Jeyson Whaley LPN CNOV Observed: 11/05/2017 Status: COMPLETED Source: [place] 2:50 PM [facility] REPOSITORY Office Visit (GENSWS) PAYTON MCQUEEN ([id number]) 1965 F Date Time Provider Department 11/05/17 2:50 PM ZACHARY HANSEN During your visit today, we recorded the following information about you: Jeyson Whaley ALVINO 11/05/2017 3:02 PM Signed REVIEW OF SYSTEMS: General: The patient notes fatigue, denies weight loss, denies weight gain, denies feeling hot, and denies feelings of cold. Eyes: The patient denies glaucoma, denies eye injury/surgery, wears glasses or contacts. Ear/Nose/Throat: The patient denies allergies, denies hayfever, denies ear infections, and denies bloody noses. Cardiovascular: The patient denies chest pain, denies heart disease, NOTES high blood pressure,denies cardiac stent, denies prior heart attack, denies irregular heart beat, denies high cholesterol, denies poor circulation, denies heart failure, other cardiac issues, denies claudication, denies cold feet, denies peripheral arterial stent. Respiratory: The patient denies tuberculosis, denies pneumonia, denies frequent cough, denies pulmonary embolism, denies shortness of breath, and denies coughing up blood. Gastrointestinal: The patient denies difficulty swallowing, NOTES acid reflux, denies ulcers, denies vomiting, denies jaundice/hepatitis, denies gallbladder problems, denies black or tarry stools, denies hemorrhoids, denies bleeding from rectum, denies diverticulitis, denies constipation, denies diarrhea, denies loss of stool control, and denies hernias. Kidney/Bladder: The patient NOTES kidney stones, NOTES urine infections, and denies bloody urine. Skin: The patient denies a history of skin cancer, denies bleeding/changing moles, and denies a history of skin rash. Neurologic: The patient denies a history of epilepsy/convulsions, denies headaches, denies head/spinal injuries, and denies stroke/TIA. Psychiatric: The patient denies psychiatric medications, NOTES depression, and denies voices, denies substance abuse. Endocrine: The patient NOTES thyroid disorders, denies diabetes, and denies hormonal problems. Hematologic: The patient denies a history of bruising, denies bleeding, and denies anemia, denies blood clots. Infections: The patient NOTES a history of measles and mumps, denies rheumatic fever, and denies sexually transmitted diseases. Musculoskeletal: The patient NOTES back pain/injury, denies back problems, NOTES sciatica, denies knee/foot trouble, denies arthritis, or denies gout. When was patient's last Mammogram screening? 07/11 Last Colonoscopy: n/a Jeyson Whaley LPN 11/05/2017 4:25 PM Signed UNIVERSAL PROTOCOL / SAFETY CHECKLIST Procedure to be performed: IANDD of Lt upper back sebaceous cyst Sign in Communication: Completed Time Out: Team Confirms the Correct Patient, Correct Procedure, Correct Site and Site Marking, Correct Position (if applicable), Prep and Dry Time (if applicable). Time: 1533 Affirmation of Time Out: N/A Sign Out Discussion: Completed Jeyson Hansen MD 11/05/2017 4:25 PM Signed HISTORY AND PHYSICAL Payton Mcqueen 1965 REFERRING PHYSICIAN: Mae Morton III, MD CHIEF COMPLAINT: Consult (Consult Abscess on back?) HPI: Payton is a 52 year old female with a complaint of a ruptured left upper back sebaceous cyst/ abscess. she has noticed this abscess for the past few weeks. she denies purulent discharge from the abscess. she denies a history of diabetes. She really only notes some burning in the area, and denies true pain. She denies fever or chills The patient takes aspirin for essential thrombocytosis. The patient is being seen by me today at the request of Dr. Mea Morton III MD for my opinion and advice regarding ruptured sebaceous cyst in her upper left back. SIGNIFICANT MEDICAL PROBLEMS: PAST MEDICAL HISTORY Diagnosis Date - Acute gastritis without mention of hemorrhage - Anxiety - Benign neoplasm of stomach - Cervical disc disorder with radiculopathy 02/18/2010 - Cyst of ovary 01/01/2015 [facility] - see scanned documents - Depressive disorder, not elsewhere classified - Essential thrombocythemia (HCC) 06/02/2016 - GERD (gastroesophageal reflux disease) - Hypertension 08/28/11 - IC (interstitial cystitis) - Impaired fasting glucose 04/02/2010 - Lumbar disc disease with radiculopathy 11/15/2010 - Metabolic syndrome X - Morbid obesity with BMI of 40.0-44.9, adult (HCC) 08/29/2013 - Renal cyst, left 07/03/2016 18 mm, 06/18/16 - Sciatica - SI (sacroiliac) joint dysfunction 06/04/2011 - Thoracolumbar back pain 07/20/2013 - Unspecified hypothyroidism - Urinary calculus, unspecified Renal stones OPERATIONS: PAST SURGICAL HISTORY Procedure Laterality Date - CYSTOSCOPY,DIL BLADDER,LOCAL ANESTH 01/18/14 - EGD W/O BRSH SPECIMEN W/BX 04/09/2007 gastritis, gastric polyps - 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 Disp: 180 tablet Rfl: 0 Omeprazole 40 mg capsule Take 1 capsule by mouth once daily. Disp: 90 capsule Rfl: 3 fluticasone (FLONASE) 50 mcg/actuation nasal spray Use 2 Sprays in each nostril once daily. Rinse mouth after use. Disp: 1 Bottle Rfl: 0 buPROPion XL (WELLBUTRIN XL) 300 mg 24 hr tablet TAKE ONE TABLET BY MOUTH EVERY DAY Disp: 90 tablet Rfl: 3 levothyroxine (SYNTHROID) 125 mcg tablet Take 1 tablet by mouth once daily. Disp: 90 tablet Rfl: 3 mirabegron (MYRBETRIQ) 50 mg Tb24 Take 1 tablet by mouth once daily. Disp: 90 tablet Rfl: 3 Hydrochlorothiazide 12.5 mg capsule Take 1 capsule by mouth once daily. Disp: 90 capsule Rfl: 4 aspirin, enteric coated (ADULT LOW DOSE ASPIRIN) 81 mg EC tablet Take 1 tablet by mouth once daily. Disp: 100 tablet Rfl: 2 SACCHAROMYCES BOULARDII (PROBIOTIC, S.BOULARDII, ORAL) Take by mouth once daily. Disp: Rfl: No current facility-administered medications for this visit. ALLERGIES: Benedryl [Diphenhydramine]; Celebrex [Celecoxib]; Erythromycin; Prochlorperazine; Toradol [Ketorolac]; Vesicare [Solifenacin] PERSONAL HISTORY: Social History Marital status: Single Spouse name: Years of education: Number of children: 0 Occupational History Occupation Employer Comment [employer] Social History Main Topics Smoking status: Never Smoker Smokeless tobacco: Never Used Alcohol use: Yes Comment: rarely Drug use: No Sexual activity: Not Currently control/protection: Condom, Pill FAMILY HISTORY: FAMILY HISTORY Problem Relation Age of Onset - Diabetes Father - Hypertension Father - Cancer Maternal Grandmother Lymphoma - Heart Maternal Grandfather hypertension - Hypertension Brother REVIEW OF SYMPTOMS: The review of systems data was entered by the nurse and reviewed by me Nursing Notes: Jeyson Whaley LPN 11/05/2017 3:02 PM Signed REVIEW OF SYSTEMS: General: The patient notes fatigue, denies weight loss, denies weight gain, denies feeling hot, and denies feelings of cold. Eyes: The patient denies glaucoma, denies eye injury/surgery, wears glasses or contacts. Ear/Nose/Throat: The patient denies allergies, denies hayfever, denies ear infections, and denies bloody noses. Cardiovascular: The patient denies chest pain, denies heart disease, NOTES high blood pressure,denies cardiac stent, denies prior heart attack, denies irregular heart beat, denies high cholesterol, denies poor circulation, denies heart failure, other cardiac issues, denies claudication, denies cold feet, denies peripheral arterial stent. Respiratory: The patient denies tuberculosis, denies pneumonia, denies frequent cough, denies pulmonary embolism, denies shortness of breath, and denies coughing up blood. Gastrointestinal: The patient denies difficulty swallowing, NOTES acid reflux, denies ulcers, denies vomiting, denies jaundice/hepatitis, denies gallbladder problems, denies black or tarry stools, denies hemorrhoids, denies bleeding from rectum, denies diverticulitis, denies constipation, denies diarrhea, denies loss of stool control, and denies hernias. Kidney/Bladder: The patient NOTES kidney stones, NOTES urine infections, and denies bloody urine. Skin: The patient denies a history of skin cancer, denies bleeding/changing moles, and denies a history of skin rash. Neurologic: The patient denies a history of epilepsy/convulsions, denies headaches, denies head/spinal injuries, and denies stroke/TIA. Psychiatric: The patient denies psychiatric medications, NOTES depression, and denies voices, denies substance abuse. Endocrine: The patient NOTES thyroid disorders, denies diabetes, and denies hormonal problems. Hematologic: The patient denies a history of bruising, denies bleeding, and denies anemia, denies blood clots. Infections: The patient NOTES a history of measles and mumps, denies rheumatic fever, and denies sexually transmitted diseases. Musculoskeletal: The patient NOTES back pain/injury, denies back problems, NOTES sciatica, denies knee/foot trouble, denies arthritis, or denies gout. When was patient's last Mammogram screening? 07/11 Last Colonoscopy: n/a Jeyson Whaley LPN PHYSICAL EXAMINATION: General: The patient is 52 year old female, well nourished, well hydrated in no acute distress. The patient is oriented to time, place, and person. VITALS: There were no vitals taken for this visit. There is no height or weight on file to calculate BMI. HEENT: Normal cephalic, atraumatic, pupils are equally round, sclera are anicteric, mucous membranes are moist, oropharynx is clear. Neck has no masses, asymmetry or lymphadenopathy. Thyroid is unremarkable. Respiratory: Clear to auscultation and percussion. Normal respiratory excursion and pattern. Cardiac: Examination is regular rate and rhythm. Abdominal exam: Soft, nontender, with no palpable masses. No hepatosplenomegaly. No palpable hernias. Rectal exam: Normal external anatomy, no significant hemorrhoids or masses. Digital rectal exam - normal tone, no masses or other abnormalities, stool in vault, hemoccult negative. Extremities: no clubbing, cyanosis or edema. No adenopathy. Other: back Abscess - a 3cm x 3cm area of fluctuance with a 2cm x 2cm area of surrounding erythema. The skin overlying the point of maximal fluctance is viable. LABORATORY VALUES: As Noted RADIOLOGIC STUDIES: As Noted PROCEDURE: INCISION AND DRAINAGE OF SEBCEOUS CYST/ BACK ABSCESS After consent was obtained and the site, person, and procedure verified, the patient`s skin was prepped and draped in the usual fashion. A combination of Lidocaine and Marcaine was injected into the skin. A linear incision was made over the point of maximal fluctuance. A large amount of caseous materal was drained. The distal wall was then dissected nearly completely as visualized from the sebaceous cyst cavity. The cavity was packed with iodoform gauze. The patient tolerated the procedure well. Assessment IMPRESSION: STATUS POST INCISION AND DRAINAGE OF SEBACEOUS CYST ABSCESS PLAN: Payton is instructed to remove the packing in 1 days. If the dressing becomes soaked or had significant drainage, the dressing should be changed. If there is minor bleeding from this skin edge, the patient should hold pressure on the incision. If there is continued bleeding, the patient should contact our office immediately. The patient should wash the wound with gentle soap and water. she may shower. The wound should not be immersed in a pool, bathtub, or even hot tub. My findings have been communicated to Dr. Mae Morton III MD via shared medical record. This note will be forwarded to Dr. Mae Morton III MD. Diagnoses: (L72.0) Ruptured sebaceous cyst (primary encounter diagnosis) Return to Clinic: The patient is instructed to follow-up with me as needed. Zachary Hansen MD Referring Provider: MAE MORTON III [[id number]] Allergies As of Date: 11/05/2017 Noted Allergy Reaction BENEDRYL (DIPHENHYDRAMINE) 04/25/2009 14 - Other: See Comments Comments: hyperactive CELEBREX (CELECOXIB) 05/28/2005 Comments: upsets stomach after prolonged use ie. 6 weeks ERYTHROMYCIN 02/05/2005 8 - GI Upset PROCHLORPERAZINE 09/29/2016 1 - Mental Status Change Comments: Agitation, felt ill TORADOL (KETOROLAC) 01/15/2015 11 - Vomiting VESICARE (SOLIFENACIN) 11/20/2009 2 - Rash Date Reviewed: 11/05/2017 Reviewed by: Zachary Hansen - Fully Assessed Reason for Visit: Consult [173] Cmt: Consult Abscess on back? Primary Visit Diagnosis:Ruptured sebaceous cyst [L72.0] Prescriptions as of 11/05/2017 Sig: BUSPIRONE 15 MG TABLET TAKE ONE TABLET BY MOUTH TWIC* METFORMIN 500 MG TABLET Take 1 tablet by mouth twice * OMEPRAZOLE 40 MG CAPSULE,IGLESIA* Take 1 capsule by mouth once * FLUTICASONE 50 MCG/ACTUATION * Use 2 Sprays in each nostril * BUPROPION XL 300 MG 24 HR TAB TAKE ONE TABLET BY MOUTH EVER* LEVOTHYROXINE 125 MCG TABLET Take 1 tablet by mouth once d* MIRABEGRON ER 50 MG TABLET,EX* Take 1 tablet by mouth once d* HYDROCHLOROTHIAZIDE 12.5 MG C* Take 1 capsule by mouth once * ASPIRIN 81 MG TABLET,DELAYED * Take 1 tablet by mouth once d* PROBIOTIC (S.BOULARDII) ORAL Take by mouth once daily. Problem List As Of Date 11/05/2017 Noted Resolved Lumbago [M54.5] INVALID FOR*03/26/2016 Hypothyroidism [E03.9] Greater Trochanteric bursitis right [M76.899] INVALID FOR*03/26/2016 Sciatica [M54.30] INVALID FOR*03/26/2016 GENERALIZED ANXIETY DIS [F41.1] INVALID FOR* ESOPHAGEAL REFLUX [K21.9] INVALID FOR* Acute gastritis without mention of hemorrhage [*INVALID FOR*03/26/2016 ADJUSTMENT DISORDER WITH DEPRESSED MOOD [F43.21]INVALID FOR* BENIGN HYPERTENSION [I10] INVALID FOR* Contusion of chest wall [S20.219A] INVALID FOR*03/26/2016 Thoracic or lumbosacral neuritis or radiculitis*INVALID FOR*03/26/2016 Cluster headache syndrome [G44.009] INVALID FOR*03/26/2016 Pelvic pain in female [R10.2] INVALID FOR*03/26/2016 Chronic Interstitial Cystitis [N30.10] INVALID FOR* Cervical radiculopathy [M54.12] INVALID FOR*03/26/2016 Brachial neuritis or radiculitis NOS [M54.12] INVALID FOR*03/26/2016 Cervical disc disorder with radiculopathy [M50.*INVALID FOR*03/26/2016 Impaired glucose tolerance [R73.02] INVALID FOR* Lumbar disc disease with radiculopathy [M51.16] INVALID FOR*03/26/2016 Piriformis syndrome [G57.00] INVALID FOR*03/26/2016 Nonallopathic lesion of sacral region, not else*INVALID FOR*03/26/2016 Avascular necrosis of hip [M87.059] INVALID FOR* SI (sacroiliac) joint dysfunction [M53.3] INVALID FOR*03/26/2016 Obesity, Class III, BMI 40-49.9 (morbid obesity*INVALID FOR* Lumbar facet arthropathy (HCC) [M46.96] INVALID FOR*03/26/2016 Lumbar spondylosis [M47.816] INVALID FOR*03/26/2016 Left shoulder strain [S46.912A] INVALID FOR*10/19/2014 Left renal mass [N28.89] INVALID FOR*03/26/2016 Thoracolumbar back pain [M54.5, M54.6] INVALID FOR*03/26/2016 Morbid obesity with BMI of 40.0-44.9, adult [E6*INVALID FOR* Unspecified gastritis and gastroduodenitis with*INVALID FOR*03/26/2016 Right sided abdominal pain [R10.9] INVALID FOR*03/26/2016 Strain of right knee and leg [S86.911A] INVALID FOR*03/26/2016 Overactive bladder [N32.81] INVALID FOR* Metabolic syndrome X [E88.81] INVALID FOR* Essential thrombocythemia (HCC) [D47.3] INVALID FOR* Leukocytosis [D72.829] INVALID FOR* Renal cyst, left [N28.1] INVALID FOR* More... Primary cancer of left kidney (HCC) [C64.2] INVALID FOR* Renal mass, left [N28.89] INVALID FOR* Left renal mass [N28.89] INVALID FOR* Popliteal cyst, right [M71.21] INVALID FOR* Visit Notes: >> Jeyson Wahley LPN [facility] Nov 05, 2017 3:00 PM Status: Signed REVIEW OF SYSTEMS: General: The patient notes fatigue, denies weight loss, denies weight gain, denies feeling hot, and denies feelings of cold. Eyes: The patient denies glaucoma, denies eye injury/surgery, wears glasses or contacts. Ear/Nose/Throat: The patient denies allergies, denies hayfever, denies ear infections, and denies bloody noses. Cardiovascular: The patient denies chest pain, denies heart disease, NOTES high blood pressure,denies cardiac stent, denies prior heart attack, denies irregular heart beat, denies high cholesterol, denies poor circulation, denies heart failure, other cardiac issues, denies claudication, denies cold feet, denies peripheral arterial stent. Respiratory: The patient denies tuberculosis, denies pneumonia, denies frequent cough, denies pulmonary embolism, denies shortness of breath, and denies coughing up blood. Gastrointestinal: The patient denies difficulty swallowing, NOTES acid reflux, denies ulcers, denies vomiting, denies jaundice/hepatitis, denies gallbladder problems, denies black or tarry stools, denies hemorrhoids, denies bleeding from rectum, denies diverticulitis, denies constipation, denies diarrhea, denies loss of stool control, and denies hernias. Kidney/Bladder: The patient NOTES kidney stones, NOTES urine infections, and denies bloody urine. Skin: The patient denies a history of skin cancer, denies bleeding/changing moles, and denies a history of skin rash. Neurologic: The patient denies a history of epilepsy/convulsions, denies headaches, denies head/spinal injuries, and denies stroke/TIA. Psychiatric: The patient denies psychiatric medications, NOTES depression, and denies voices, denies substance abuse. Endocrine: The patient NOTES thyroid disorders, denies diabetes, and denies hormonal problems. Hematologic: The patient denies a history of bruising, denies bleeding, and denies anemia, denies blood clots. Infections: The patient NOTES a history of measles and mumps, denies rheumatic fever, and denies sexually transmitted diseases. Musculoskeletal: The patient NOTES back pain/injury, denies back problems, NOTES sciatica, denies knee/foot trouble, denies arthritis, or denies gout. When was patient's last Mammogram screening? 07/11 Last Colonoscopy: n/a Jeyson Whaley LPN Follow-up and Disposition History Recorded Encounter Status:Closed by ZACHARY HANSEN MD on 11/05/17 PROGRESS Observed: 10/13/2017 Status: COMPLETED Source: [place] 4:32 PM [facility] REPOSITORY HNO ID: [id number] Author: Zoraida Jordan (Roof Mechanic) [place] Service: (none) Author Type: Nurse Practitioner Type: Progress Notes Filed: 10/14/2017 5:31 PM Note Text: Payton Mcqueen is a 52 year old female who presents today for evaluation of Patient presents with: Established Patient: follow up CHIEF COMPLAINT AND HISTORY OF PRESENT ILLNESS 52 year old female with a history of IC, anxiety, 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 Today she reports an upper respiratory infection. Taking levaquin since Thursday. Mild leg pain yesterday morning. Denies dysuria, gross hematuria. Taking mirabegron 50 mg for urgency DTF every 3 hours NTF 3-4 PVR 37 cc 10/15/2016 surgical pathology 1. Left kidney, tumor, partial nephrectomy (A) - Oncocytic renal neoplasm of low malignant potential (1.8 cm in greatest dimension). See synoptic report. - Tumor is confined to the kidney. - Lymphovascular invasion is not identified. - Renal parenchymal and capsular margins of resection are negative for tumor. 2. Peritumor fat, excision (B) - Adipose tissue, negative for malignancy. Urine cultures 01/08/2017 >100,000 klebsiella pneumoniae treated with bactrim 05/16/2016 10,000-<50,000 contaminated 05/05/2016 >100,000 klebsiella pneumoniae >100,000 enterocbacter cloacae complex 04/22/2016 10,000-<50,000 contaminated 04/04/2016 <10,000 gram negative bacilli 03/21/2016 10,000-<50,000 contaminated DTF:2-3 times per day NTF:able to sleep 6 hours at night, improved from voiding 2-3 times at night URGENCY:not as much since surgery UUI:no BRIDGET:no STRAINING:no COMPLETE EMPTYING:yes PADS PER DAY:no FLUID INTAKE: coffee, 1/2 cup 1-2 cokes per day water, 2-4 16 ounce water bottles Past Urological History: Stones:no Surgery:yes: 11/2013 cystoscopy, hydrodilation of bladder by , 04/[address] Molina Tumors:no Infections:yes: 3 over the last year VITALS: Blood pressure 154/85, pulse 96, height 162.6 cm (5' 4), weight 120.7 kg (266 lb), SpO2 96 %. ALLERGIES: Benedryl [Diphenhydramine]; Celebrex [Celecoxib]; Erythromycin; Prochlorperazine; Toradol [Ketorolac]; Vesicare [Solifenacin] MEDICATIONS: Current Outpatient Prescriptions: levoFLOXacin (LEVAQUIN) 500 mg tablet Take 1 tablet by mouth once daily for 10 days. Disp: 10 tablet Rfl: 0 metFORMIN (GLUCOPHAGE) 500 mg tablet Take 1 tablet by mouth twice daily with meals. Disp: 180 tablet Rfl: 0 Omeprazole 40 mg capsule Take 1 capsule by mouth once daily. Disp: 90 capsule Rfl: 3 fluticasone (FLONASE) 50 mcg/actuation nasal spray Use 2 Sprays in each nostril once daily. Rinse mouth after use. Disp: 1 Bottle Rfl: 0 buPROPion XL (WELLBUTRIN XL) 300 mg 24 hr tablet TAKE ONE TABLET BY MOUTH EVERY DAY Disp: 90 tablet Rfl: 3 levothyroxine (SYNTHROID) 125 mcg tablet Take 1 tablet by mouth once daily. Disp: 90 tablet Rfl: 3 busPIRone (BUSPAR) 15 mg tablet TAKE ONE TABLET BY MOUTH TWICE DAILY Disp: 60 tablet Rfl: 5 mirabegron (MYRBETRIQ) 50 mg Tb24 Take 1 tablet by mouth once daily. Disp: 90 tablet Rfl: 3 Hydrochlorothiazide 12.5 mg capsule Take 1 capsule by mouth once daily. Disp: 90 capsule Rfl: 4 aspirin, enteric coated (ADULT LOW DOSE ASPIRIN) 81 mg EC tablet Take 1 tablet by mouth once daily. Disp: 100 tablet Rfl: 2 SACCHAROMYCES BOULARDII (PROBIOTIC, S.BOULARDII, ORAL) Take by mouth once daily. Disp: Rfl: No current facility-administered medications for this visit. 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[employer]* Social History Main Topics Smoking status: Never Smoker Smokeless tobacco: Never Used Alcohol use: Yes Comment: rarely Drug use: No Sexual activity: Not Currently control/protection: Condom, Pill PAST MEDICAL HISTORY: PAST MEDICAL HISTORY Diagnosis Date - Acute gastritis without mention of hemorrhage - Anxiety - Benign neoplasm of stomach - Cervical disc disorder with radiculopathy 02/18/2010 - Cyst of ovary 01/01/2015 [facility] - see scanned documents - Depressive disorder, not elsewhere classified - Essential thrombocythemia (HCC) 06/02/2016 - GERD (gastroesophageal reflux disease) - Hypertension 08/28/11 - IC (interstitial cystitis) - Impaired fasting glucose 04/02/2010 - Lumbar disc disease with radiculopathy 11/15/2010 - Metabolic syndrome X - Morbid obesity with BMI of 40.0-44.9, adult (HCC) 08/29/2013 - Renal cyst, left 07/03/2016 18 mm, 06/18/16 - Sciatica - SI (sacroiliac) joint dysfunction 06/04/2011 - Thoracolumbar back pain 07/20/2013 - Unspecified hypothyroidism - Urinary calculus, unspecified Renal stones PAST SURGICAL HISTORY: PAST SURGICAL HISTORY Procedure Laterality Date - CYSTOSCOPY,DIL BLADDER,LOCAL ANESTH 01/18/14 - EGD W/O [facility] SPECIMEN W/BX 04/09/2007 gastritis, gastric polyps - 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 Valadez - PAST SURGICAL HISTORY OF WISDOM TEETH EXTRACTIONS - PAST SURGICAL HISTORY OF 05/2012 bladder hydrodistension X 2 - PAST SURGICAL HISTORY OF 2014 pain injection lumbar- multiple - PAST SURGICAL HISTORY OF Cyst removed from head - REMOVAL GALLBLADDER 1991 Cholecystectomy FAMILY HISTORY: FAMILY HISTORY Problem Relation Age of Onset - Diabetes Father - Hypertension Father - Cancer Maternal Grandmother Lymphoma - Heart Maternal Grandfather hypertension - Hypertension Brother All histories reviewed on this date 10/13/2017: Yes REVIEW OF SYSTEMS: CONSTITUTIONAL: Patient reports no recent fever or weight loss EYES: Negative for redness, blurry vision, double vision or loss of vision EAR, NOSE AND THROAT: DENIES HAVING: Sore throat Dysphagia CARDIOVASCULAR: Negative for chest pain. RESPIRATORY: Negative for cough, hemoptysis, wheezing or shortness of breath GI: No nausea, vomiting, or diarrhea MUSCULOSKELETAL: denies back pain or muscular weakness right knee pain SKIN: Negative for lesions, rash, and itching PSYCH: Negative for sleep disturbance, mood disorder and recent psychosocial stressors. HEMATOLOGY/LYMPHOLOGY Negative for prolonged bleeding, bruising easily or swollen nodes ENDOCRINE: Negative for cold or heat intolerance, polyuria, polydipsia and goiter All other reviewed and negative other than HPI. PHYSICAL EXAM: constitutional: appears healthy in no acute distress, over weight respiratory: normal respiratory motion gi: abdomen soft, non-tender without masses, hernia or organomegaly,port sites healed gu: bladder: not palpable, no tenderness. skin: no rashes or bruises noted. Neuro: Gait normal. Sensation grossly intact. RADIOLOGY REPORTS REVIEWED: Yes PVR 52 cc was PVR 37 cc PVR 0 cc 01/01/2015 CT abd/pelvis w no acute findings, left ovarian cyst MRI 2013 RESULT:Imaged liver, spleen, adrenal glands, and pancreas are normal in appearance. Small lesion in the lower pole of the left kidney which measures 1.3 x 0.8 cm, has no perceptible enhancement, is not cystic in nature, and exhibits no restricted diffusion. Small left renal cortical cyst. No findings of hydronephrosis or hydroureter. Imaged abdominal vasculature is normal in appearance. Diverticulosis of the colon. Small follicles in both ovaries. Small left-sided ovarian cyst which measures 1.8 x 1.6 cm. Normal marrow signal the imaged osseous structures. No occult fracture is identified. IMPRESSION: * ?Stable appearing indeterminate lesion in the lower pole of the left kidney. LAB RESULTS REVIEWED: Yes Component Latest Ref Rng AND Units 10/13/2017 GLUCOSE UA (POCT) Negative mg/dL Negative BILIRUBIN UA (POCT) Negative Negative KETONE UA (POCT) Negative mg/dL Negative SPECIFIC GRAVITY UA (POCT) 1.005 - 1.030 1.010 HEMOGLOBIN/BLOOD UA (POCT) Negative Trace-intact (A) PH UA (POCT) 4.5 - 8.0 6.0 PROTEIN UA (POCT) Negative mg/dL Negative UROBILINOGEN UA (POCT) Normal E.U./dL 0.2 NITRITE UA (POCT) Negative Negative LEUKOCYTES UA (POCT) Negative Negative COLOR UA (POCT) Yellow CLARITY UA (POCT) Clear IMAGING STUDIES INDEPENDENTLY REVIEWED: Yes OLD RECORDS REVIEWED: Yes: Extensive: No ASSESSMENT/PLAN: ASSESSMENT/PLAN: 1. Urinary urgency - ICD9: 788.63, ICD10: R39.15 (primary diagnosis) -continue with mirabegron 50 mg PO daily 2. Renal oncocytoma, unspecified laterality - ICD9: 223.0, ICD10: D30.00 -s/p left partial nephrectomy -pathology reviewed -no further imaging recommended 3. Essential hypertension, benign - ICD9: 401.1, ICD10: I10 -follow up with pcp for blood pressure -monitor pressure at home Zoraida Bass APRN.CNP Disease Specificity: Acuity: Acute Severity: Mild, 0/10 Anatomic Site: Bladder, Laterality: N/A Underlying Condition/Causal Agent: Primary-IC Associated Conditions/Manifestations: urgency Patient is instructed to schedule a follow up in 6 months Zoraida Bass CNP CNOV Observed: 10/13/2017 Status: COMPLETED Source: [place] 4:00 PM [facility] REPOSITORY Office Visit (UROLMD) PAYTON MCQUEEN ([id number]) 1965 F Date Time Provider Department 10/13/17 4:00 PM ZORAIDA BASS (BUD) UROLMD During your visit today, we recorded the following information about you: Pulse Blood pressure Weight Height 89/minute 167/90 120.7 kg 1.626 m [facility] 10/13/2017 4:30 PM Signed Patient presents with: Established Patient: follow up Post void bladder scan completed. 52 ml residual remaining. Results reported to Zoraida Bass CNP Blood pressure is elevated,she just took her medication before she got here. Zoraida Bass APRN.CNP 10/14/2017 5:31 PM Signed Payton Mcqueen is a 52 year old female who presents today for evaluation of Patient presents with: Established Patient: follow up CHIEF COMPLAINT AND HISTORY OF PRESENT ILLNESS 52 year old female with a history of IC, anxiety, 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 Today she reports an upper respiratory infection. Taking levaquin since Thursday. Mild leg pain yesterday morning. Denies dysuria, gross hematuria. Taking mirabegron 50 mg for urgency DTF every 3 hours NTF 3-4 PVR 37 cc 10/15/2016 surgical pathology 1. Left kidney, tumor, partial nephrectomy (A) - Oncocytic renal neoplasm of low malignant potential (1.8 cm in greatest dimension). See synoptic report. - Tumor is confined to the kidney. - Lymphovascular invasion is not identified. - Renal parenchymal and capsular margins of resection are negative for tumor. 2. Peritumor fat, excision (B) - Adipose tissue, negative for malignancy. Urine cultures 01/08/2017 >100,000 klebsiella pneumoniae treated with bactrim 05/16/2016 10,000-<50,000 contaminated 05/05/2016 >100,000 klebsiella pneumoniae >100,000 enterocbacter cloacae complex 04/22/2016 10,000-<50,000 contaminated 04/04/2016 <10,000 gram negative bacilli 03/21/2016 10,000-<50,000 contaminated DTF:2-3 times per day NTF:able to sleep 6 hours at night, improved from voiding 2-3 times at night URGENCY:not as much since surgery UUI:no BRIDGET:no STRAINING:no COMPLETE EMPTYING:yes PADS PER DAY:no FLUID INTAKE: coffee, 1/2 cup 1-2 cokes per day water, 2-4 16 ounce water bottles Past Urological History: Stones:no Surgery:yes: 11/2013 cystoscopy, hydrodilation of bladder by , 04/[address] Molina Tumors:no Infections:yes: 3 over the last year VITALS: Blood pressure 154/85, pulse 96, height 162.6 cm (5' 4), weight 120.7 kg (266 lb), SpO2 96 %. ALLERGIES: Benedryl [Diphenhydramine]; Celebrex [Celecoxib]; Erythromycin; Prochlorperazine; Toradol [Ketorolac]; Vesicare [Solifenacin] MEDICATIONS: Current Outpatient Prescriptions: levoFLOXacin (LEVAQUIN) 500 mg tablet Take 1 tablet by mouth once daily for 10 days. Disp: 10 tablet Rfl: 0 metFORMIN (GLUCOPHAGE) 500 mg tablet Take 1 tablet by mouth twice daily with meals. Disp: 180 tablet Rfl: 0 Omeprazole 40 mg capsule Take 1 capsule by mouth once daily. Disp: 90 capsule Rfl: 3 fluticasone (FLONASE) 50 mcg/actuation nasal spray Use 2 Sprays in each nostril once daily. Rinse mouth after use. Disp: 1 Bottle Rfl: 0 buPROPion XL (WELLBUTRIN XL) 300 mg 24 hr tablet TAKE ONE TABLET BY MOUTH EVERY DAY Disp: 90 tablet Rfl: 3 levothyroxine (SYNTHROID) 125 mcg tablet Take 1 tablet by mouth once daily. Disp: 90 tablet Rfl: 3 busPIRone (BUSPAR) 15 mg tablet TAKE ONE TABLET BY MOUTH TWICE DAILY Disp: 60 tablet Rfl: 5 mirabegron (MYRBETRIQ) 50 mg Tb24 Take 1 tablet by mouth once daily. Disp: 90 tablet Rfl: 3 Hydrochlorothiazide 12.5 mg capsule Take 1 capsule by mouth once daily. Disp: 90 capsule Rfl: 4 aspirin, enteric coated (ADULT LOW DOSE ASPIRIN) 81 mg EC tablet Take 1 tablet by mouth once daily. Disp: 100 tablet Rfl: 2 SACCHAROMYCES BOULARDII (PROBIOTIC, S.BOULARDII, ORAL) Take by mouth once daily. Disp: Rfl: No current facility-administered medications for this visit. 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[employer]* Social History Main Topics Smoking status: Never Smoker Smokeless tobacco: Never Used Alcohol use: Yes Comment: rarely Drug use: No Sexual activity: Not Currently control/protection: Condom, Pill PAST MEDICAL HISTORY: PAST MEDICAL HISTORY Diagnosis Date - Acute gastritis without mention of hemorrhage - Anxiety - Benign neoplasm of stomach - Cervical disc disorder with radiculopathy 02/18/2010 - Cyst of ovary 01/01/2015 [facility] - see scanned documents - Depressive disorder, not elsewhere classified - Essential thrombocythemia (HCC) 06/02/2016 - GERD (gastroesophageal reflux disease) - Hypertension 08/28/11 - IC (interstitial cystitis) - Impaired fasting glucose 04/02/2010 - Lumbar disc disease with radiculopathy 11/15/2010 - Metabolic syndrome X - Morbid obesity with BMI of 40.0-44.9, adult (HCC) 08/29/2013 - Renal cyst, left 07/03/2016 18 mm, 06/18/16 - Sciatica - SI (sacroiliac) joint dysfunction 06/04/2011 - Thoracolumbar back pain 07/20/2013 - Unspecified hypothyroidism - Urinary calculus, unspecified Renal stones PAST SURGICAL HISTORY: PAST SURGICAL HISTORY Procedure Laterality Date - CYSTOSCOPY,DIL BLADDER,LOCAL ANESTH 01/18/14 - EGD W/O [facility] SPECIMEN W/BX 04/09/2007 gastritis, gastric polyps - 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 Valadez - PAST SURGICAL HISTORY OF WISDOM TEETH EXTRACTIONS - PAST SURGICAL HISTORY OF 05/2012 bladder hydrodistension X 2 - PAST SURGICAL HISTORY OF 2014 pain injection lumbar- multiple - PAST SURGICAL HISTORY OF Cyst removed from head - REMOVAL GALLBLADDER 1991 Cholecystectomy FAMILY HISTORY: FAMILY HISTORY Problem Relation Age of Onset - Diabetes Father - Hypertension Father - Cancer Maternal Grandmother Lymphoma - Heart Maternal Grandfather hypertension - Hypertension Brother All histories reviewed on this date 10/13/2017: Yes REVIEW OF SYSTEMS: CONSTITUTIONAL: Patient reports no recent fever or weight loss EYES: Negative for redness, blurry vision, double vision or loss of vision EAR, NOSE AND THROAT: DENIES HAVING: Sore throat Dysphagia CARDIOVASCULAR: Negative for chest pain. RESPIRATORY: Negative for cough, hemoptysis, wheezing or shortness of breath GI: No nausea, vomiting, or diarrhea MUSCULOSKELETAL: denies back pain or muscular weakness right knee pain SKIN: Negative for lesions, rash, and itching PSYCH: Negative for sleep disturbance, mood disorder and recent psychosocial stressors. HEMATOLOGY/LYMPHOLOGY Negative for prolonged bleeding, bruising easily or swollen nodes ENDOCRINE: Negative for cold or heat intolerance, polyuria, polydipsia and goiter All other reviewed and negative other than HPI. PHYSICAL EXAM: constitutional: appears healthy in no acute distress, over weight respiratory: normal respiratory motion gi: abdomen soft, non-tender without masses, hernia or organomegaly,port sites healed gu: bladder: not palpable, no tenderness. skin: no rashes or bruises noted. Neuro: Gait normal. Sensation grossly intact. RADIOLOGY REPORTS REVIEWED: Yes PVR 52 cc was PVR 37 cc PVR 0 cc 01/01/2015 CT abd/pelvis w no acute findings, left ovarian cyst MRI 2013 RESULT:Imaged liver, spleen, adrenal glands, and pancreas are normal in appearance. Small lesion in the lower pole of the left kidney which measures 1.3 x 0.8 cm, has no perceptible enhancement, is not cystic in nature, and exhibits no restricted diffusion. Small left renal cortical cyst. No findings of hydronephrosis or hydroureter. Imaged abdominal vasculature is normal in appearance. Diverticulosis of the colon. Small follicles in both ovaries. Small left-sided ovarian cyst which measures 1.8 x 1.6 cm. Normal marrow signal the imaged osseous structures. No occult fracture is identified. IMPRESSION: * ?Stable appearing indeterminate lesion in the lower pole of the left kidney. LAB RESULTS REVIEWED: Yes Component Latest Ref Rng AND Units 10/13/2017 GLUCOSE UA (POCT) Negative mg/dL Negative BILIRUBIN UA (POCT) Negative Negative KETONE UA (POCT) Negative mg/dL Negative SPECIFIC GRAVITY UA (POCT) 1.005 - 1.030 1.010 HEMOGLOBIN/BLOOD UA (POCT) Negative Trace-intact (A) PH UA (POCT) 4.5 - 8.0 6.0 PROTEIN UA (POCT) Negative mg/dL Negative UROBILINOGEN UA (POCT) Normal E.U./dL 0.2 NITRITE UA (POCT) Negative Negative LEUKOCYTES UA (POCT) Negative Negative COLOR UA (POCT) Yellow CLARITY UA (POCT) Clear IMAGING STUDIES INDEPENDENTLY REVIEWED: Yes OLD RECORDS REVIEWED: Yes: Extensive: No ASSESSMENT/PLAN: ASSESSMENT/PLAN: 1. Urinary urgency - ICD9: 788.63, ICD10: R39.15 (primary diagnosis) -continue with mirabegron 50 mg PO daily 2. Renal oncocytoma, unspecified laterality - ICD9: 223.0, ICD10: D30.00 -s/p left partial nephrectomy -pathology reviewed -no further imaging recommended 3. Essential hypertension, benign - ICD9: 401.1, ICD10: I10 -follow up with pcp for blood pressure -monitor pressure at home Zoraida Bass APRN.CNP Disease Specificity: Acuity: Acute Severity: Mild, 0/10 Anatomic Site: Bladder, Laterality: N/A Underlying Condition/Causal Agent: Primary-IC Associated Conditions/Manifestations: urgency Patient is instructed to schedule a follow up in 6 months Zoraida Bass CNP Referring Provider: SELF [[id number]] Allergies As of Date: 10/13/2017 Noted Allergy Reaction BENEDRYL (DIPHENHYDRAMINE) 04/25/2009 14 - Other: See Comments Comments: hyperactive CELEBREX (CELECOXIB) 05/28/2005 Comments: upsets stomach after prolonged use ie. 6 weeks ERYTHROMYCIN 02/05/2005 8 - GI Upset PROCHLORPERAZINE 09/29/2016 1 - Mental Status Change Comments: Agitation, felt ill TORADOL (KETOROLAC) 01/15/2015 11 - Vomiting VESICARE (SOLIFENACIN) 11/20/2009 2 - Rash Date Reviewed: 10/13/2017 Reviewed by: Doris Charles Ma - Fully Assessed Reason for Visit: Established Patient [175] Cmt: follow up Primary Visit Diagnosis:Urinary urgency [R39.15] Other Visit Diagnoses:Renal oncocytoma, unspecified laterality [D30.00] Essential hypertension, benign [I10] Order(s):UA DIP, URINE (POC) [[id number]] Order #: [id number] #:[id number] Prescriptions as of 10/13/2017 Sig: LEVOFLOXACIN 500 MG TABLET Take 1 tablet by mouth once d* METFORMIN 500 MG TABLET Take 1 tablet by mouth twice * OMEPRAZOLE 40 MG CAPSULE,IGLESIA* Take 1 capsule by mouth once * FLUTICASONE 50 MCG/ACTUATION * Use 2 Sprays in each nostril * BUPROPION XL 300 MG 24 HR TAB TAKE ONE TABLET BY MOUTH EVER* LEVOTHYROXINE 125 MCG TABLET Take 1 tablet by mouth once d* BUSPIRONE 15 MG TABLET TAKE ONE TABLET BY MOUTH TWIC* MIRABEGRON ER 50 MG TABLET,EX* Take 1 tablet by mouth once d* HYDROCHLOROTHIAZIDE 12.5 MG C* Take 1 capsule by mouth once * ASPIRIN 81 MG TABLET,DELAYED * Take 1 tablet by mouth once d* PROBIOTIC (S.BOULARDII) ORAL Take by mouth once daily. Problem List As Of Date 10/13/2017 Noted Resolved Lumbago [M54.5] INVALID FOR*03/26/2016 Hypothyroidism [E03.9] Greater Trochanteric bursitis right [M76.029] INVALID FOR*03/26/2016 Sciatica [M54.30] INVALID FOR*03/26/2016 GENERALIZED ANXIETY DIS [F41.1] INVALID FOR* ESOPHAGEAL REFLUX [K21.9] INVALID FOR* Acute gastritis without mention of hemorrhage [*INVALID FOR*03/26/2016 ADJUSTMENT DISORDER WITH DEPRESSED MOOD [F43.21]INVALID FOR* BENIGN HYPERTENSION [I10] INVALID FOR* Contusion of chest wall [S20.219A] INVALID FOR*03/26/2016 Thoracic or lumbosacral neuritis or radiculitis*INVALID FOR*03/26/2016 Cluster headache syndrome [G44.009] INVALID FOR*03/26/2016 Pelvic pain in female [R10.2] INVALID FOR*03/26/2016 Chronic Interstitial Cystitis [N30.10] INVALID FOR* Cervical radiculopathy [M54.12] INVALID FOR*03/26/2016 Brachial neuritis or radiculitis NOS [M54.12] INVALID FOR*03/26/2016 Cervical disc disorder with radiculopathy [M50.*INVALID FOR*03/26/2016 Impaired glucose tolerance [R73.02] INVALID FOR* Lumbar disc disease with radiculopathy [M51.16] INVALID FOR*03/26/2016 Piriformis syndrome [G57.00] INVALID FOR*03/26/2016 Nonallopathic lesion of sacral region, not else*INVALID FOR*03/26/2016 Avascular necrosis of hip [M87.059] INVALID FOR* SI (sacroiliac) joint dysfunction [M53.3] INVALID FOR*03/26/2016 Obesity, Class III, BMI 40-49.9 (morbid obesity*INVALID FOR* Lumbar facet arthropathy (HCC) [M46.96] INVALID FOR*03/26/2016 Lumbar spondylosis [M47.816] INVALID FOR*03/26/2016 Left shoulder strain [S46.912A] INVALID FOR*10/19/2014 Left renal mass [N28.89] INVALID FOR*03/26/2016 Thoracolumbar back pain [M54.5, M54.6] INVALID FOR*03/26/2016 Morbid obesity with BMI of 40.0-44.9, adult [E6*INVALID FOR* Unspecified gastritis and gastroduodenitis with*INVALID FOR*03/26/2016 Right sided abdominal pain [R10.9] INVALID FOR*03/26/2016 Strain of right knee and leg [S86.911A] INVALID FOR*03/26/2016 Overactive bladder [N32.81] INVALID FOR* Metabolic syndrome X [E88.81] INVALID FOR* Essential thrombocythemia (HCC) [D47.3] INVALID FOR* Leukocytosis [D72.829] INVALID FOR* Renal cyst, left [N28.1] INVALID FOR* More... Primary cancer of left kidney (HCC) [C64.2] INVALID FOR* Renal mass, left [N28.89] INVALID FOR* Left renal mass [N28.89] INVALID FOR* Popliteal cyst, right [M71.21] INVALID FOR* Visit Notes: >> Doris Silva October 13, 2017 4:12 PM Status: Signed Patient presents with: Established Patient: follow up Post void bladder scan completed. 52 ml residual remaining. Results reported to Zoraida Bass CNP Blood pressure is elevated,she just took her medication before she got here. Disposition: Return in about 1 year (around 10/13/2018), or if symptoms worsen or fail to improve, for urinary urgency. Follow-up and Disposition History Recorded Encounter Status:Closed by ZORAIDA BASS CNP on 10/14/17 PROGRESS Observed: 10/10/2017 Status: COMPLETED Source: [place] 11:41 AM [facility] [place] REPOSITORY HNO ID: [id number] Author: Sue Weber Service: (none) Author Type: Physician Type: Progress Notes Filed: 10/10/2017 12:03 PM Note Text: Chief Complaint Patient presents with: URI: pt states 4-5 days feeling warm ,body aches , sinus drainage chest full. taking delsym HPI Payton Mcqueen is a 52 year old female who presents here today for evaluation of illness. Ill for 5-6 days with chest congestion, cough, productive; still with fever last night. Also UTI symptoms; lower abd pressure, frequency and dysuria. Past medical history, appointments, medications, allergies reviewed. Previous Medical History PAST MEDICAL HISTORY Diagnosis Date - Acute gastritis without mention of hemorrhage - Anxiety - Benign neoplasm of stomach - Cervical disc disorder with radiculopathy 02/18/2010 - Cyst of ovary 01/01/2015 [facility] - see scanned documents - Depressive disorder, not elsewhere classified - Essential thrombocythemia (HCC) 06/02/2016 - GERD (gastroesophageal reflux disease) - Hypertension 08/28/11 - IC (interstitial cystitis) - Impaired fasting glucose 04/02/2010 - Lumbar disc disease with radiculopathy 11/15/2010 - Metabolic syndrome X - Morbid obesity with BMI of 40.0-44.9, adult (HCC) 08/29/2013 - Renal cyst, left 07/03/2016 18 mm, 06/18/16 - Sciatica - SI (sacroiliac) joint dysfunction 06/04/2011 - Thoracolumbar back pain 07/20/2013 - Unspecified hypothyroidism - Urinary calculus, unspecified Renal stones Previous Surgical History PAST SURGICAL HISTORY Procedure Laterality Date - CYSTOSCOPY,DIL BLADDER,LOCAL ANESTH 01/18/14 - EGD W/O [facility] SPECIMEN W/BX 04/09/2007 gastritis, gastric polyps - 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 Valadez - PAST SURGICAL HISTORY OF WISDOM TEETH EXTRACTIONS - PAST SURGICAL HISTORY OF 05/2012 bladder hydrodistension X 2 - PAST SURGICAL HISTORY OF 2014 pain injection lumbar- multiple - PAST SURGICAL HISTORY OF Cyst removed from head - REMOVAL GALLBLADDER 1991 Cholecystectomy Family History FAMILY HISTORY Problem Relation Age of Onset - Diabetes Father - Hypertension Father - Cancer Maternal Grandmother Lymphoma - Heart Maternal Grandfather hypertension - Hypertension Brother Patient Allergies ALLERGIES Allergen Reactions - Benedryl [Diphenhyd* Other: See Comments hyperactive - Celebrex [Celecoxib] upsets stomach after prolonged use ie. 6 weeks - Erythromycin GI Upset - Prochlorperazine Mental Status Change Agitation, felt ill - Toradol [Ketorolac] Vomiting - Vesicare [Solifenac* Rash Current Medications Current Outpatient Prescriptions on File Prior to Visit: metFORMIN (GLUCOPHAGE) 500 mg tablet Take 1 tablet by mouth twice daily with meals. Omeprazole 40 mg capsule Take 1 capsule by mouth once daily. fluticasone (FLONASE) 50 mcg/actuation nasal spray Use 2 Sprays in each nostril once daily. Rinse mouth after use. buPROPion XL (WELLBUTRIN XL) 300 mg 24 hr tablet TAKE ONE TABLET BY MOUTH EVERY DAY levothyroxine (SYNTHROID) 125 mcg tablet Take 1 tablet by mouth once daily. busPIRone (BUSPAR) 15 mg tablet TAKE ONE TABLET BY MOUTH TWICE DAILY mirabegron (MYRBETRIQ) 50 mg Tb24 Take 1 tablet by mouth once daily. Hydrochlorothiazide 12.5 mg capsule Take 1 capsule by mouth once daily. aspirin, enteric coated (ADULT LOW DOSE ASPIRIN) 81 mg EC tablet Take 1 tablet by mouth once daily. SACCHAROMYCES BOULARDII (PROBIOTIC, S.BOULARDII, ORAL) Take by mouth once daily. No current facility-administered medications on file prior to visit. 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 General Appearance: Well appearing, alert, in no acute distress, well-hydrated, well nourished., Obese. Ears: External ears normal, canals clear. Oropharynx: Lips, mucosa, and tongue normal, teeth and gums normal, oropharynx normal. Neck: Supple, no adenopathy; thyroid symmetric, normal size, no bruits. Lungs: Lungs clear to auscultation. No wheezing, rhonchi, rales. Heart: RRR without murmur, gallop, or rubs. No ectopy. Abdomen: minimal lower abd discomfort with palpation. Health Maintenance List TWO PNEUMOVAX 5 YEARS APART PRIOR TO AGE 65(1) due on 1986 COLORECTAL CANCER SCREENING,SEE MODIFIER due on 2017 MAMMOGRAM due on 07/10/2017 DTAP,TDAP,TD(6 - Td) due on 12/20/2018 LIPID SCREEN due on 10/20/2019 HPV EVERY 5 YEARS due on 04/10/2020 PAP EVERY 5 YEARS due on 04/11/2020 DIABETES SCREEN due on 07/10/2020 ADULT PREVNAR-13 Completed INFLUENZA Completed Data reviewed Unable to give urine ASSESSMENT/PLAN: 1. Bronchitis - ICD9: 490, ICD10: J40 (primary diagnosis) Levaquin 500 mg bid for 10 days 2. Encounter for breast cancer screening other than mammogram - ICD9: V76.10, ICD10: Z12.39 - DAPHNE SCREENING 3. Acute cystitis without hematuria - ICD9: 595.0, ICD10: N30.00 Covered with levaquin Follow up prn Sue Weber MD CNOV Observed: 10/10/2017 Status: COMPLETED Source: [place] 11:40 AM [facility] REPOSITORY Office Visit (FAMPWS) PAYTON MCQUEEN ([id number]) 1965 F Date Time Provider Department 10/10/17 11:40 AM SUE WEBER During your visit today, we recorded the following information about you: Temperature Pulse Respiration Blood pressure 97.8 degrees 95/minute 20/minute 136/62 Weight 120.7 kg Sue Weber MD 10/10/2017 12:03 PM Signed Chief Complaint Patient presents with: URI: pt states 4-5 days feeling warm ,body aches , sinus drainage chest full. taking delsym HPI Payton Mcqueen is a 52 year old female who presents here today for evaluation of illness. Ill for 5-6 days with chest congestion, cough, productive; still with fever last night. Also UTI symptoms; lower abd pressure, frequency and dysuria. Past medical history, appointments, medications, allergies reviewed. Previous Medical History PAST MEDICAL HISTORY Diagnosis Date - Acute gastritis without mention of hemorrhage - Anxiety - Benign neoplasm of stomach - Cervical disc disorder with radiculopathy 02/18/2010 - Cyst of ovary 01/01/2015 [facility] - see scanned documents - Depressive disorder, not elsewhere classified - Essential thrombocythemia (HCC) 06/02/2016 - GERD (gastroesophageal reflux disease) - Hypertension 08/28/11 - IC (interstitial cystitis) - Impaired fasting glucose 04/02/2010 - Lumbar disc disease with radiculopathy 11/15/2010 - Metabolic syndrome X - Morbid obesity with BMI of 40.0-44.9, adult (HCC) 08/29/2013 - Renal cyst, left 07/03/2016 18 mm, 06/18/16 - Sciatica - SI (sacroiliac) joint dysfunction 06/04/2011 - Thoracolumbar back pain 07/20/2013 - Unspecified hypothyroidism - Urinary calculus, unspecified Renal stones Previous Surgical History PAST SURGICAL HISTORY Procedure Laterality Date - CYSTOSCOPY,DIL BLADDER,LOCAL ANESTH 01/18/14 - EGD W/O [facility] SPECIMEN W/BX 04/09/2007 gastritis, gastric polyps - 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 Valadez - PAST SURGICAL HISTORY OF WISDOM TEETH EXTRACTIONS - PAST SURGICAL HISTORY OF 05/2012 bladder hydrodistension X 2 - PAST SURGICAL HISTORY OF 2014 pain injection lumbar- multiple - PAST SURGICAL HISTORY OF Cyst removed from head - REMOVAL GALLBLADDER 1991 Cholecystectomy Family History FAMILY HISTORY Problem Relation Age of Onset - Diabetes Father - Hypertension Father - Cancer Maternal Grandmother Lymphoma - Heart Maternal Grandfather hypertension - Hypertension Brother Patient Allergies ALLERGIES Allergen Reactions - Benedryl [Diphenhyd* Other: See Comments hyperactive - Celebrex [Celecoxib] upsets stomach after prolonged use ie. 6 weeks - Erythromycin GI Upset - Prochlorperazine Mental Status Change Agitation, felt ill - Toradol [Ketorolac] Vomiting - Vesicare [Solifenac* Rash Current Medications Current Outpatient Prescriptions on File Prior to Visit: metFORMIN (GLUCOPHAGE) 500 mg tablet Take 1 tablet by mouth twice daily with meals. Omeprazole 40 mg capsule Take 1 capsule by mouth once daily. fluticasone (FLONASE) 50 mcg/actuation nasal spray Use 2 Sprays in each nostril once daily. Rinse mouth after use. buPROPion XL (WELLBUTRIN XL) 300 mg 24 hr tablet TAKE ONE TABLET BY MOUTH EVERY DAY levothyroxine (SYNTHROID) 125 mcg tablet Take 1 tablet by mouth once daily. busPIRone (BUSPAR) 15 mg tablet TAKE ONE TABLET BY MOUTH TWICE DAILY mirabegron (MYRBETRIQ) 50 mg Tb24 Take 1 tablet by mouth once daily. Hydrochlorothiazide 12.5 mg capsule Take 1 capsule by mouth once daily. aspirin, enteric coated (ADULT LOW DOSE ASPIRIN) 81 mg EC tablet Take 1 tablet by mouth once daily. SACCHAROMYCES BOULARDII (PROBIOTIC, S.BOULARDII, ORAL) Take by mouth once daily. No current facility-administered medications on file prior to visit. Social History Social History Marital status: Single Spouse name: Years of education: Number of children: 0 Occupational History Occupation Employer Comment [employer]* Social History Main Topics Smoking status: Never Smoker Smokeless tobacco: Never Used Alcohol use: Yes Comment: rarely Drug use: No Sexual activity: Not Currently control/protection: Condom, Pill EXAM: BP 136/62 (BP Site: Left Arm, BP Position: Sitting, BP Cuff Size: Large Adult) Pulse 95 Temp 36.6 ?C (97.8 ?F) Resp 20 Wt 120.7 kg (266 lb) SpO2 95% BMI 44.95 kg/m? General Appearance: Well appearing, alert, in no acute distress, well-hydrated, well nourished., Obese. Ears: External ears normal, canals clear. Oropharynx: Lips, mucosa, and tongue normal, teeth and gums normal, oropharynx normal. Neck: Supple, no adenopathy; thyroid symmetric, normal size, no bruits. Lungs: Lungs clear to auscultation. No wheezing, rhonchi, rales. Heart: RRR without murmur, gallop, or rubs. No ectopy. Abdomen: minimal lower abd discomfort with palpation. Health Maintenance List TWO PNEUMOVAX 5 YEARS APART PRIOR TO AGE 65(1) due on 1986 COLORECTAL CANCER SCREENING,SEE MODIFIER due on 2017 MAMMOGRAM due on 07/10/2017 DTAP,TDAP,TD(6 - Td) due on 12/20/2018 LIPID SCREEN due on 10/20/2019 HPV EVERY 5 YEARS due on 04/10/2020 PAP EVERY 5 YEARS due on 04/11/2020 DIABETES SCREEN due on 07/10/2020 ADULT PREVNAR-13 Completed INFLUENZA Completed Data reviewed Unable to give urine ASSESSMENT/PLAN: 1. Bronchitis - ICD9: 490, ICD10: J40 (primary diagnosis) Levaquin 500 mg bid for 10 days 2. Encounter for breast cancer screening other than mammogram - ICD9: V76.10, ICD10: Z12.39 - DAPHNE SCREENING 3. Acute cystitis without hematuria - ICD9: 595.0, ICD10: N30.00 Covered with levaquin Follow up prn Sue Weber MD Referring Provider: SUE WEBER [[id number]] Allergies As of Date: 10/10/2017 Noted Allergy Reaction BENEDRYL (DIPHENHYDRAMINE) 04/25/2009 14 - Other: See Comments Comments: hyperactive CELEBREX (CELECOXIB) 05/28/2005 Comments: upsets stomach after prolonged use ie. 6 weeks ERYTHROMYCIN 02/05/2005 8 - GI Upset PROCHLORPERAZINE 09/29/2016 1 - Mental Status Change Comments: Agitation, felt ill TORADOL (KETOROLAC) 01/15/2015 11 - Vomiting VESICARE (SOLIFENACIN) 11/20/2009 2 - Rash Date Reviewed: 10/10/2017 Reviewed by: Kelli Pal LPN - Fully Assessed Reason for Visit: URI [115] Cmt: pt states 4-5 days feeling warm ,body aches , sinus drainage chest full. taking delsym Primary Visit Diagnosis:Bronchitis [J40] Other Visit Diagnoses:Encounter for breast cancer screening other than mammogram [Z12.39] Acute cystitis without hematuria [N30.00] Order(s):[facility] SCREENING [[id number]] Order #: [id number] FUTURE levoFLOXacin (LEVAQUIN) 500 mg tabletTake 1 tablet by mouth once daily for 10 days.Disp: 10 tabletRfl: 0 Prescriptions as of 10/10/2017 Sig: METFORMIN 500 MG TABLET Take 1 tablet by mouth twice * OMEPRAZOLE 40 MG CAPSULE,IGLESIA* Take 1 capsule by mouth once * FLUTICASONE 50 MCG/ACTUATION * Use 2 Sprays in each nostril * BUPROPION XL 300 MG 24 HR TAB TAKE ONE TABLET BY MOUTH EVER* LEVOTHYROXINE 125 MCG TABLET Take 1 tablet by mouth once d* BUSPIRONE 15 MG TABLET TAKE ONE TABLET BY MOUTH TWIC* MIRABEGRON ER 50 MG TABLET,EX* Take 1 tablet by mouth once d* HYDROCHLOROTHIAZIDE 12.5 MG C* Take 1 capsule by mouth once * ASPIRIN 81 MG TABLET,DELAYED * Take 1 tablet by mouth once d* PROBIOTIC (S.BOULARDII) ORAL Take by mouth once daily. LEVOFLOXACIN 500 MG TABLET Take 1 tablet by mouth once d* Problem List As Of Date 10/10/2017 Noted Resolved Lumbago [M54.5] INVALID FOR*03/26/2016 Hypothyroidism [E03.9] Greater Trochanteric bursitis right [M76.095] INVALID FOR*03/26/2016 Sciatica [M54.30] INVALID FOR*03/26/2016 GENERALIZED ANXIETY DIS [F41.1] INVALID FOR* ESOPHAGEAL REFLUX [K21.9] INVALID FOR* Acute gastritis without mention of hemorrhage [*INVALID FOR*03/26/2016 ADJUSTMENT DISORDER WITH DEPRESSED MOOD [F43.21]INVALID FOR* BENIGN HYPERTENSION [I10] INVALID FOR* Contusion of chest wall [S20.219A] INVALID FOR*03/26/2016 Thoracic or lumbosacral neuritis or radiculitis*INVALID FOR*03/26/2016 Cluster headache syndrome [G44.009] INVALID FOR*03/26/2016 Pelvic pain in female [R10.2] INVALID FOR*03/26/2016 Chronic Interstitial Cystitis [N30.10] INVALID FOR* Cervical radiculopathy [M54.12] INVALID FOR*03/26/2016 Brachial neuritis or radiculitis NOS [M54.12] INVALID FOR*03/26/2016 Cervical disc disorder with radiculopathy [M50.*INVALID FOR*03/26/2016 Impaired glucose tolerance [R73.02] INVALID FOR* Lumbar disc disease with radiculopathy [M51.16] INVALID FOR*03/26/2016 Piriformis syndrome [G57.00] INVALID FOR*03/26/2016 Nonallopathic lesion of sacral region, not else*INVALID FOR*03/26/2016 Avascular necrosis of hip [M87.059] INVALID FOR* SI (sacroiliac) joint dysfunction [M53.3] INVALID FOR*03/26/2016 Obesity, Class III, BMI 40-49.9 (morbid obesity*INVALID FOR* Lumbar facet arthropathy (HCC) [M46.96] INVALID FOR*03/26/2016 Lumbar spondylosis [M47.816] INVALID FOR*03/26/2016 Left shoulder strain [S46.912A] INVALID FOR*10/19/2014 Left renal mass [N28.89] INVALID FOR*03/26/2016 Thoracolumbar back pain [M54.5, M54.6] INVALID FOR*03/26/2016 Morbid obesity with BMI of 40.0-44.9, adult [E6*INVALID FOR* Unspecified gastritis and gastroduodenitis with*INVALID FOR*03/26/2016 Right sided abdominal pain [R10.9] INVALID FOR*03/26/2016 Strain of right knee and leg [S86.911A] INVALID FOR*03/26/2016 Overactive bladder [N32.81] INVALID FOR* Metabolic syndrome X [E88.81] INVALID FOR* Essential thrombocythemia (HCC) [D47.3] INVALID FOR* Leukocytosis [D72.829] INVALID FOR* Renal cyst, left [N28.1] INVALID FOR* More... Primary cancer of left kidney (HCC) [C64.2] INVALID FOR* Renal mass, left [N28.89] INVALID FOR* Left renal mass [N28.89] INVALID FOR* Popliteal cyst, right [M71.21] INVALID FOR* Prescriptions ordered this encounter Disp Refills Start End LEVOFLOXACIN 500 MG TABLET 10 t* 0 10/10/2017 10/20/2017 Route: ORAL Sig: Take 1 tablet by mouth once daily for 10 days. Disposition: Return if symptoms worsen or fail to improve. Follow-up and Disposition History Recorded Encounter Status:Closed by SUE WEBER MD on 10/10/17 PROGRESS Observed: 08/24/2017 Status: COMPLETED Source: [place] 4:29 PM [facility] [place] REPOSITORY HNO ID: [id number] Author: Mae Morton III Service: (none) Author Type: Physician Type: Progress Notes Filed: 08/24/2017 8:35 PM Note Text: SUBJECTIVE: This is a 52 year old female that is here today for 1. went to 6 wks ago and was tx with augmentin w/o benefit. Then she saw Dr Dacosta who tx her with doxycycline. She has persistent burning pain r infra-auricular area. Able to breathe through nose but she has persistent pressure maxillary areas (in spite of daily flonase). No sneezing but she has PND. Mild scratchy throat. PAST MEDICAL HISTORY Diagnosis Date - Acute gastritis without mention of hemorrhage - Anxiety - Benign neoplasm of stomach - Cervical disc disorder with radiculopathy 02/18/2010 - Cyst of ovary 01/01/2015 [facility] - see scanned documents - Depressive disorder, not elsewhere classified - Essential thrombocythemia (HCC) 06/02/2016 - GERD (gastroesophageal reflux disease) - Hypertension 08/28/11 - IC (interstitial cystitis) - Impaired fasting glucose 04/02/2010 - Lumbar disc disease with radiculopathy 11/15/2010 - Metabolic syndrome X - Morbid obesity with BMI of 40.0-44.9, adult (HCC) 08/29/2013 - Renal cyst, left 07/03/2016 18 mm, 06/18/16 - Sciatica - SI (sacroiliac) joint dysfunction 06/04/2011 - Thoracolumbar back pain 07/20/2013 - Unspecified hypothyroidism - Urinary calculus, unspecified Renal stones Current Outpatient Prescriptions on File Prior to Visit: Omeprazole 40 mg capsule Take 1 capsule by mouth once daily. fluticasone (FLONASE) 50 mcg/actuation nasal spray Use 2 Sprays in each nostril once daily. Rinse mouth after use. buPROPion XL (WELLBUTRIN XL) 300 mg 24 hr tablet TAKE ONE TABLET BY MOUTH EVERY DAY levothyroxine (SYNTHROID) 125 mcg tablet Take 1 tablet by mouth once daily. busPIRone (BUSPAR) 15 mg tablet TAKE ONE TABLET BY MOUTH TWICE DAILY mirabegron (MYRBETRIQ) 50 mg Tb24 Take 1 tablet by mouth once daily. metFORMIN (GLUCOPHAGE) 500 mg tablet Take 1 tablet by mouth twice daily with meals. Hydrochlorothiazide 12.5 mg capsule Take 1 capsule by mouth once daily. aspirin, enteric coated (ADULT LOW DOSE ASPIRIN) 81 mg EC tablet Take 1 tablet by mouth once daily. SACCHAROMYCES BOULARDII (PROBIOTIC, S.BOULARDII, ORAL) Take by mouth once daily. No current facility-administered medications on file prior to visit. FAMILY HISTORY Problem Relation Age of Onset - Diabetes Father - Hypertension Father - Cancer Maternal Grandmother Lymphoma - Heart Maternal Grandfather hypertension - Hypertension Brother Social History Substance Use Topics - Smoking status: Never Smoker - Smokeless tobacco: Never Used - Alcohol use Yes Comment: rarely BP 159/80 Pulse 88 Temp (!) 35.8 ?C (96.4 ?F) (Tympanic) Wt 122.5 kg (270 lb) LMP 08/24/2017 BMI 45.63 kg/m2 . OBJECTIVE: APPEARANCE Well appearing, alert, in no acute distress, well-hydrated, well nourished., Morbidly obese EYES conjunctivae and sclerae normal and lids and lashes normal EARS External ears normal, canals clear NOSE/SINUS negative findings: nose shows no deformity, asymmetry, or inflammation, nasal mucosa normal, positive findings: sinus tenderness maxillary bilateral THROAT normal, no erythema NECK Negative findings: no asymmetry, masses, or scars, no adenopathy, trachea midline and normal to palpitation, thyroid normal to palpation LUNG clear to auscultation ASSESSMENT: viral sinusitis hypertension--due to situational anxiety and decongestant PLAN: follow BP--nurse bp check in 2 wks regular sinus flushing with neti pot until symptoms resolve continue flonase avoid decongestants LIU Kumar MD, III MD CNOV Observed: 08/24/2017 Status: COMPLETED Source: [place] 4:00 PM [facility] REPOSITORY Office Visit (FAMPWS) PAYTON MCQUEEN ([id number]) 1965 F Date Time Provider Department 08/24/17 4:00 PM MAE MORTON III During your visit today, we recorded the following information about you: Temperature Pulse Blood pressure Weight 96.4 degrees 88/minute 159/80 122.5 kg Last Period 08/24/17 Mae Morton III MD 08/24/2017 8:35 PM Signed SUBJECTIVE: This is a 52 year old female that is here today for 1. went to 6 wks ago and was tx with augmentin w/o benefit. Then she saw Dr Dacosta who tx her with doxycycline. She has persistent burning pain r infra-auricular area. Able to breathe through nose but she has persistent pressure maxillary areas (in spite of daily flonase). No sneezing but she has PND. Mild scratchy throat. PAST MEDICAL HISTORY Diagnosis Date - Acute gastritis without mention of hemorrhage - Anxiety - Benign neoplasm of stomach - Cervical disc disorder with radiculopathy 02/18/2010 - Cyst of ovary 01/01/2015 [facility] - see scanned documents - Depressive disorder, not elsewhere classified - Essential thrombocythemia (HCC) 06/02/2016 - GERD (gastroesophageal reflux disease) - Hypertension 08/28/11 - IC (interstitial cystitis) - Impaired fasting glucose 04/02/2010 - Lumbar disc disease with radiculopathy 11/15/2010 - Metabolic syndrome X - Morbid obesity with BMI of 40.0-44.9, adult ([facility]) 08/29/2013 - Renal cyst, left 07/03/2016 18 mm, 06/18/16 - Sciatica - SI (sacroiliac) joint dysfunction 06/04/2011 - Thoracolumbar back pain 07/20/2013 - Unspecified hypothyroidism - Urinary calculus, unspecified Renal stones Current Outpatient Prescriptions on File Prior to Visit: Omeprazole 40 mg capsule Take 1 capsule by mouth once daily. fluticasone (FLONASE) 50 mcg/actuation nasal spray Use 2 Sprays in each nostril once daily. Rinse mouth after use. buPROPion XL (WELLBUTRIN XL) 300 mg 24 hr tablet TAKE ONE TABLET BY MOUTH EVERY DAY levothyroxine (SYNTHROID) 125 mcg tablet Take 1 tablet by mouth once daily. busPIRone (BUSPAR) 15 mg tablet TAKE ONE TABLET BY MOUTH TWICE DAILY mirabegron (MYRBETRIQ) 50 mg Tb24 Take 1 tablet by mouth once daily. metFORMIN (GLUCOPHAGE) 500 mg tablet Take 1 tablet by mouth twice daily with meals. Hydrochlorothiazide 12.5 mg capsule Take 1 capsule by mouth once daily. aspirin, enteric coated (ADULT LOW DOSE ASPIRIN) 81 mg EC tablet Take 1 tablet by mouth once daily. SACCHAROMYCES BOULARDII (PROBIOTIC, S.BOULARDII, ORAL) Take by mouth once daily. No current facility-administered medications on file prior to visit. FAMILY HISTORY Problem Relation Age of Onset - Diabetes Father - Hypertension Father - Cancer Maternal Grandmother Lymphoma - Heart Maternal Grandfather hypertension - Hypertension Brother Social History Substance Use Topics - Smoking status: Never Smoker - Smokeless tobacco: Never Used - Alcohol use Yes Comment: rarely BP 159/80 Pulse 88 Temp (!) 35.8 ?C (96.4 ?F) (Tympanic) Wt 122.5 kg (270 lb) LMP 08/24/2017 BMI 45.63 kg/m2 . OBJECTIVE: APPEARANCE Well appearing, alert, in no acute distress, well- hydrated, well nourished., Morbidly obese EYES conjunctivae and sclerae normal and lids and lashes normal EARS External ears normal, canals clear NOSE/SINUS negative findings: nose shows no deformity, asymmetry, or inflammation, nasal mucosa normal, positive findings: sinus tenderness maxillary bilateral THROAT normal, no erythema NECK Negative findings: no asymmetry, masses, or scars, no adenopathy, trachea midline and normal to palpitation, thyroid normal to palpation LUNG clear to auscultation ASSESSMENT: viral sinusitis hypertension--due to situational anxiety and decongestant PLAN: follow BP--nurse bp check in 2 wks regular sinus flushing with neti pot until symptoms resolve continue flonase avoid decongestants LIU Kumar MD, III MD Frank A Cebul, III MD 08/24/2017 4:44 PM Signed PLAN: follow BP--nurse bp check in 2 wks regular sinus flushing with neti pot until symptoms resolve continue flonase avoid decongestants Mae Morton III MD Referring Provider: MAE MORTON III [[id number]] Allergies As of Date: 08/24/2017 Noted Allergy Reaction BENEDRYL (DIPHENHYDRAMINE) 04/25/2009 14 - Other: See Comments Comments: hyperactive CELEBREX (CELECOXIB) 05/28/2005 Comments: upsets stomach after prolonged use ie. 6 weeks ERYTHROMYCIN 02/05/2005 8 - GI Upset PROCHLORPERAZINE 09/29/2016 1 - Mental Status Change Comments: Agitation, felt ill TORADOL (KETOROLAC) 01/15/2015 11 - Vomiting VESICARE (SOLIFENACIN) 11/20/2009 2 - Rash Date Reviewed: 08/24/2017 Reviewed by: Tanvi Sams Deputy Administrator - Fully Assessed Reason for Visit: Sinus Problem [99] Cmt: x 1 month - when swallows there is a burning right side around ear - pressure under eyes - has taken Mucinex sinus - drainage - right ear fluttering - some chills last night - Primary Visit Diagnosis:Screening for breast cancer [Z12.31] Other Visit Diagnosis:Chronic maxillary sinusitis [J32.0] Order(s):[facility] SCREENING [[id number]] Order #: [id number] FUTURE Prescriptions as of 08/24/2017 Sig: OMEPRAZOLE 40 MG CAPSULE,IGLESIA* Take 1 capsule by mouth once * FLUTICASONE 50 MCG/ACTUATION * Use 2 Sprays in each nostril * BUPROPION XL 300 MG 24 HR TAB TAKE ONE TABLET BY MOUTH EVER* LEVOTHYROXINE 125 MCG TABLET Take 1 tablet by mouth once d* BUSPIRONE 15 MG TABLET TAKE ONE TABLET BY MOUTH TWIC* MIRABEGRON ER 50 MG TABLET,EX* Take 1 tablet by mouth once d* METFORMIN 500 MG TABLET Take 1 tablet by mouth twice * HYDROCHLOROTHIAZIDE 12.5 MG C* Take 1 capsule by mouth once * ASPIRIN 81 MG TABLET,DELAYED * Take 1 tablet by mouth once d* PROBIOTIC (S.BOULARDII) ORAL Take by mouth once daily. Problem List As Of Date 08/24/2017 Noted Resolved Lumbago [M54.5] INVALID FOR*03/26/2016 Hypothyroidism [E03.9] Greater Trochanteric bursitis right [M76.899] INVALID FOR*03/26/2016 Sciatica [M54.30] INVALID FOR*03/26/2016 GENERALIZED ANXIETY DIS [F41.1] INVALID FOR* ESOPHAGEAL REFLUX [K21.9] INVALID FOR* Acute gastritis without mention of hemorrhage [*INVALID FOR*03/26/2016 ADJUSTMENT DISORDER WITH DEPRESSED MOOD [F43.21]INVALID FOR* BENIGN HYPERTENSION [I10] INVALID FOR* Contusion of chest wall [S20.219A] INVALID FOR*03/26/2016 Thoracic or lumbosacral neuritis or radiculitis*INVALID FOR*03/26/2016 Cluster headache syndrome [G44.009] INVALID FOR*03/26/2016 Pelvic pain in female [R10.2] INVALID FOR*03/26/2016 Chronic Interstitial Cystitis [N30.10] INVALID FOR* Cervical radiculopathy [M54.12] INVALID FOR*03/26/2016 Brachial neuritis or radiculitis NOS [M54.12] INVALID FOR*03/26/2016 Cervical disc disorder with radiculopathy [M50.*INVALID FOR*03/26/2016 Impaired glucose tolerance [R73.02] INVALID FOR* Lumbar disc disease with radiculopathy [M51.16] INVALID FOR*03/26/2016 Piriformis syndrome [G57.00] INVALID FOR*03/26/2016 Nonallopathic lesion of sacral region, not else*INVALID FOR*03/26/2016 Avascular necrosis of hip [M87.059] INVALID FOR* SI (sacroiliac) joint dysfunction [M53.3] INVALID FOR*03/26/2016 Obesity, Class III, BMI 40-49.9 (morbid obesity*INVALID FOR* Lumbar facet arthropathy (HCC) [M46.96] INVALID FOR*03/26/2016 Lumbar spondylosis [M47.816] INVALID FOR*03/26/2016 Left shoulder strain [S46.912A] INVALID FOR*10/19/2014 Left renal mass [N28.89] INVALID FOR*03/26/2016 Thoracolumbar back pain [M54.5, M54.6] INVALID FOR*03/26/2016 Morbid obesity with BMI of 40.0-44.9, adult [E6*INVALID FOR* Unspecified gastritis and gastroduodenitis with*INVALID FOR*03/26/2016 Right sided abdominal pain [R10.9] INVALID FOR*03/26/2016 Strain of right knee and leg [S86.911A] INVALID FOR*03/26/2016 Overactive bladder [N32.81] INVALID FOR* Metabolic syndrome X [E88.81] INVALID FOR* Essential thrombocythemia (HCC) [D47.3] INVALID FOR* Leukocytosis [D72.829] INVALID FOR* Renal cyst, left [N28.1] INVALID FOR* More... Primary cancer of left kidney (HCC) [C64.2] INVALID FOR* Renal mass, left [N28.89] INVALID FOR* Left renal mass [N28.89] INVALID FOR* Popliteal cyst, right [M71.21] INVALID FOR* Other instructions from your clinician: PLAN: follow BP--nurse bp check in 2 wks regular sinus flushing with neti pot until symptoms resolve continue flonase avoid decongestants Mae Morton III MD Medications Discontinued During This Encounter doxycycline monohydrate 100 mg tablet 20 t* 0 08/04/2017 08/24/2017 Route: ORAL Sig: Take 1 tablet by mouth twice daily. Disc: Course of therapy completed Encounter Status:Closed by MAE MORTON III, MD on 08/24/17 PROGRESS Observed: 08/04/2017 Status: COMPLETED Source: [place] 4:05 PM [facility] REPOSITORY O ID: [id number] Author: Phoeeb Brandt) O[place] Service: (none) Author Type: Physician Type: Progress Notes Filed: 08/04/2017 4:25 PM Note Text: Chief Complaint Patient presents with: Recheck: sinus pain, ear and sinus drainage HPI Payton Mqcueen is a 52 year old female who presents here today for Above Complaints.. Patient was seen at on 07/20 and was diagnosed with maxillary sinusitis. Started on Augmentin, which she took for 9 days instead of 10 due to yeast infection, and flonase. Leadore like flonase helped some, but Augmentin didn't do much for her. Now complaining of feeling fatigued, off balance, malaise, maxillary sinus pressure on left, ear drainage bilaterally, muffled hearing, post nasal drainage, and decreased appetite. Denies fever, chills, nausea, vomiting, lymphadenopathy, sore throat, cough, wheezing, chest congestion. Using advil OTC which helps temporarily. Treated yeast infection with diflucan which worked well. Taking probiotic already daily. Past medical history, appointments, medications, allergies reviewed. Previous Medical History PAST MEDICAL HISTORY Diagnosis Date - Acute gastritis without mention of hemorrhage - Anxiety - Benign neoplasm of stomach - Cervical disc disorder with radiculopathy 02/18/2010 - Cyst of ovary 01/01/2015 [facility] - see scanned documents - Depressive disorder, not elsewhere classified - Essential thrombocythemia (HCC) 06/02/2016 - GERD (gastroesophageal reflux disease) - Hypertension 08/28/11 - IC (interstitial cystitis) - Impaired fasting glucose 04/02/2010 - Lumbar disc disease with radiculopathy 11/15/2010 - Metabolic syndrome X - Morbid obesity with BMI of 40.0-44.9, adult ([facility]) 08/29/2013 - Renal cyst, left 07/03/2016 18 mm, 06/18/16 - Sciatica - SI (sacroiliac) joint dysfunction 06/04/2011 - Thoracolumbar back pain 07/20/2013 - Unspecified hypothyroidism - Urinary calculus, unspecified Renal stones Previous Surgical History PAST SURGICAL HISTORY Procedure Laterality Date - CYSTOSCOPY,DIL BLADDER,LOCAL ANESTH 01/18/14 - EGD W/O [facility] SPECIMEN W/BX 04/09/2007 gastritis, gastric polyps - 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 Valadez - PAST SURGICAL HISTORY OF WISDOM TEETH EXTRACTIONS - PAST SURGICAL HISTORY OF 05/2012 bladder hydrodistension X 2 - PAST SURGICAL HISTORY OF 2014 pain injection lumbar- multiple - PAST SURGICAL HISTORY OF Cyst removed from head - REMOVAL GALLBLADDER 1991 Cholecystectomy Family History FAMILY HISTORY Problem Relation Age of Onset - Diabetes Father - Hypertension Father - Cancer Maternal Grandmother Lymphoma - Heart Maternal Grandfather hypertension - Hypertension Brother Patient Allergies ALLERGIES Allergen Reactions - Benedryl [Diphenhyd* Other: See Comments hyperactive - Celebrex [Celecoxib] upsets stomach after prolonged use ie. 6 weeks - Erythromycin GI Upset - Prochlorperazine Mental Status Change Agitation, felt ill - Toradol [Ketorolac] Vomiting - Vesicare [Solifenac* Rash Current Medications Current Outpatient Prescriptions on File Prior to Visit: fluticasone (FLONASE) 50 mcg/actuation nasal spray Use 2 Sprays in each nostril once daily. Rinse mouth after use. buPROPion XL (WELLBUTRIN XL) 300 mg 24 hr tablet TAKE ONE TABLET BY MOUTH EVERY DAY levothyroxine (SYNTHROID) 125 mcg tablet Take 1 tablet by mouth once daily. busPIRone (BUSPAR) 15 mg tablet TAKE ONE TABLET BY MOUTH TWICE DAILY mirabegron (MYRBETRIQ) 50 mg Tb24 Take 1 tablet by mouth once daily. metFORMIN (GLUCOPHAGE) 500 mg tablet Take 1 tablet by mouth twice daily with meals. Hydrochlorothiazide 12.5 mg capsule Take 1 capsule by mouth once daily. Omeprazole 40 mg capsule Take 1 capsule by mouth once daily. aspirin, enteric coated (ADULT LOW DOSE ASPIRIN) 81 mg EC tablet Take 1 tablet by mouth once daily. SACCHAROMYCES BOULARDII (PROBIOTIC, S.BOULARDII, ORAL) Take by mouth once daily. No current facility-administered medications on file prior to visit. Social History Social History Marital status: Single Spouse name: Years of education: Number of children: 0 Occupational History Occupation Employer Comment [employer]* Social History Main Topics Smoking status: Never Smoker Smokeless status: Never Used Alcohol use: Yes Comment: rarely Drug use: No Sexual activity: Not Currently control/protection: Condom, Pill Review of Symptoms REVIEW OF SYSTEMS See HPI EXAM: BP 168/92 Pulse 92 Temp 36.6 ?C (97.9 ?F) (Tympanic) Resp 12 Wt 120.2 kg (265 lb) SpO2 97% BMI 44.78 kg/m2 General Appearance: Well appearing, alert, in no acute distress, well-hydrated, well nourished.. Skin: Skin color, texture, turgor normal, no suspicious rashes or lesions. Head: Normocephalic, no masses, lesions, tenderness or abnormalities. Eyes: Anicteric sclera. Pupils are equally round and reactive to light. Extraocular movements are intact. . Ears: Positive findings: serous otitis behind left TM, right TM normal. Nose/Sinuses: Nares normal, septum midline, mucosa normal, no drainage, Positive findings: left maxillary sinus TTP. Oropharynx: Lips, mucosa, and tongue normal, teeth and gums normal, oropharynx normal. Neck: Positive findings: superficial cervical adenopathy. Lungs: Lungs clear to auscultation. No wheezing, rhonchi, rales. Heart: RRR without murmur, gallop, or rubs. No ectopy. Health Maintenance List TWO PNEUMOVAX 5 YEARS APART PRIOR TO AGE 65(1) due on 1986 COLORECTAL CANCER SCREENING,SEE MODIFIER due on 2017 MAMMOGRAM due on 07/10/2017 TETANUS due on 12/20/2018 LIPID SCREEN due on 10/20/2019 HPV EVERY 5 YEARS due on 04/10/2020 PAP EVERY 5 YEARS due on 04/11/2020 DIABETES SCREEN due on 07/10/2020 ADULT PREVNAR-13 Completed INFLUENZA Completed ASSESSMENT/PLAN: 1. Acute non-recurrent maxillary sinusitis - ICD9: 461.0, ICD10: J01.00 (primary diagnosis) - Will begin treatment with Doxycline - The patient should also be given OTC cough and cold meds as needed for the first 5-7 days of treatment. - Supportive care with plenty of fluids, rest, and analgesia prn. - DOXYCYCLINE MONOHYDRATE 100 MG TABLET - FLUCONAZOLE 150 MG TABLET 2. Acute serous otitis media of left ear, recurrence not specified - ICD9: 381.01, ICD10: H65.02 Continue flonase as prescribed. Phoebe Dacosta MD CNOV Observed: 08/04/2017 Status: COMPLETED Source: [place] 4:00 PM [facility] REPOSITORY [facility] PAYTON MCQUEEN ([id number]) 1965 F Date Time Provider Department 08/04/17 4:00 PM PHOEBE DACOSTA) [facility] During your visit today, we recorded the following information about you: Temperature Pulse Respiration Blood pressure 97.9 degrees 92/minute 12/minute 160/98 Weight 120.2 kg Phoebe Dacosta MD 08/04/2017 4:25 PM Signed Chief Complaint Patient presents with: Recheck: sinus pain, ear and sinus drainage HPI Payton Mcqueen is a 52 year old female who presents here today for Above Complaints.. Patient was seen at on 07/20 and was diagnosed with maxillary sinusitis. Started on Augmentin, which she took for 9 days instead of 10 due to yeast infection, and flonase. Leadore like flonase helped some, but Augmentin didn't do much for her. Now complaining of feeling fatigued, off balance, malaise, maxillary sinus pressure on left, ear drainage bilaterally, muffled hearing, post nasal drainage, and decreased appetite. Denies fever, chills, nausea, vomiting, lymphadenopathy, sore throat, cough, wheezing, chest congestion. Using advil OTC which helps temporarily. Treated yeast infection with diflucan which worked well. Taking probiotic already daily. Past medical history, appointments, medications, allergies reviewed. Previous Medical History PAST MEDICAL HISTORY Diagnosis Date - Acute gastritis without mention of hemorrhage - Anxiety - Benign neoplasm of stomach - Cervical disc disorder with radiculopathy 02/18/2010 - Cyst of ovary 01/01/2015 [facility] - see scanned documents - Depressive disorder, not elsewhere classified - Essential thrombocythemia (HCC) 06/02/2016 - GERD (gastroesophageal reflux disease) - Hypertension 08/28/11 - IC (interstitial cystitis) - Impaired fasting glucose 04/02/2010 - Lumbar disc disease with radiculopathy 11/15/2010 - Metabolic syndrome X - Morbid obesity with BMI of 40.0-44.9, adult ([facility]) 08/29/2013 - Renal cyst, left 07/03/2016 18 mm, 06/18/16 - Sciatica - SI (sacroiliac) joint dysfunction 06/04/2011 - Thoracolumbar back pain 07/20/2013 - Unspecified hypothyroidism - Urinary calculus, unspecified Renal stones Previous Surgical History PAST SURGICAL HISTORY Procedure Laterality Date - CYSTOSCOPY,DIL BLADDER,LOCAL ANESTH 01/18/14 - EGD W/O [facility] SPECIMEN W/BX 04/09/2007 gastritis, gastric polyps - 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 Valadez - PAST SURGICAL HISTORY OF WISDOM TEETH EXTRACTIONS - PAST SURGICAL HISTORY OF 05/2012 bladder hydrodistension X 2 - PAST SURGICAL HISTORY OF 2014 pain injection lumbar- multiple - PAST SURGICAL HISTORY OF Cyst removed from head - REMOVAL GALLBLADDER 1991 Cholecystectomy Family History FAMILY HISTORY Problem Relation Age of Onset - Diabetes Father - Hypertension Father - Cancer Maternal Grandmother Lymphoma - Heart Maternal Grandfather hypertension - Hypertension Brother Patient Allergies ALLERGIES Allergen Reactions - Benedryl [Diphenhyd* Other: See Comments hyperactive - Celebrex [Celecoxib] upsets stomach after prolonged use ie. 6 weeks - Erythromycin GI Upset - Prochlorperazine Mental Status Change Agitation, felt ill - Toradol [Ketorolac] Vomiting - Vesicare [Solifenac* Rash Current Medications Current Outpatient Prescriptions on File Prior to Visit: fluticasone (FLONASE) 50 mcg/actuation nasal spray Use 2 Sprays in each nostril once daily. Rinse mouth after use. buPROPion XL (WELLBUTRIN XL) 300 mg 24 hr tablet TAKE ONE TABLET BY MOUTH EVERY DAY levothyroxine (SYNTHROID) 125 mcg tablet Take 1 tablet by mouth once daily. busPIRone (BUSPAR) 15 mg tablet TAKE ONE TABLET BY MOUTH TWICE DAILY mirabegron (MYRBETRIQ) 50 mg Tb24 Take 1 tablet by mouth once daily. metFORMIN (GLUCOPHAGE) 500 mg tablet Take 1 tablet by mouth twice daily with meals. Hydrochlorothiazide 12.5 mg capsule Take 1 capsule by mouth once daily. Omeprazole 40 mg capsule Take 1 capsule by mouth once daily. aspirin, enteric coated (ADULT LOW DOSE ASPIRIN) 81 mg EC tablet Take 1 tablet by mouth once daily. SACCHAROMYCES BOULARDII (PROBIOTIC, S.BOULARDII, ORAL) Take by mouth once daily. No current facility-administered medications on file prior to visit. Social History Social History Marital status: Single Spouse name: Years of education: Number of children: 0 Occupational History Occupation Employer Comment [employer]* Social History Main Topics Smoking status: Never Smoker Smokeless status: Never Used Alcohol use: Yes Comment: rarely Drug use: No Sexual activity: Not Currently control/protection: Condom, Pill Review of Symptoms REVIEW OF SYSTEMS See HPI EXAM: BP 168/92 Pulse 92 Temp 36.6 ?C (97.9 ?F) (Tympanic) Resp 12 Wt 120.2 kg (265 lb) SpO2 97% BMI 44.78 kg/m2 General Appearance: Well appearing, alert, in no acute distress, well-hydrated, well nourished.. Skin: Skin color, texture, turgor normal, no suspicious rashes or lesions. Head: Normocephalic, no masses, lesions, tenderness or abnormalities. Eyes: Anicteric sclera. Pupils are equally round and reactive to light. Extraocular movements are intact. . Ears: Positive findings: serous otitis behind left TM, right TM normal. Nose/Sinuses: Nares normal, septum midline, mucosa normal, no drainage, Positive findings: left maxillary sinus TTP. Oropharynx: Lips, mucosa, and tongue normal, teeth and gums normal, oropharynx normal. Neck: Positive findings: superficial cervical adenopathy. Lungs: Lungs clear to auscultation. No wheezing, rhonchi, rales. Heart: RRR without murmur, gallop, or rubs. No ectopy. Health Maintenance List TWO PNEUMOVAX 5 YEARS APART PRIOR TO AGE 65(1) due on 1986 COLORECTAL CANCER SCREENING,SEE MODIFIER due on 2017 MAMMOGRAM due on 07/10/2017 TETANUS due on 12/20/2018 LIPID SCREEN due on 10/20/2019 HPV EVERY 5 YEARS due on 04/10/2020 PAP EVERY 5 YEARS due on 04/11/2020 DIABETES SCREEN due on 07/10/2020 ADULT PREVNAR-13 Completed INFLUENZA Completed ASSESSMENT/PLAN: 1. Acute non-recurrent maxillary sinusitis - ICD9: 461.0, ICD10: J01.00 (primary diagnosis) - Will begin treatment with Doxycline - The patient should also be given OTC cough and cold meds as needed for the first 5-7 days of treatment. - Supportive care with plenty of fluids, rest, and analgesia prn. - DOXYCYCLINE MONOHYDRATE 100 MG TABLET - FLUCONAZOLE 150 MG TABLET 2. Acute serous otitis media of left ear, recurrence not specified - ICD9: 381.01, ICD10: H65.02 Continue flonase as prescribed. Phoebe Dacosta MD Referring Provider: SELF [[id number]] Allergies As of Date: 08/04/2017 Noted Allergy Reaction BENEDRYL (DIPHENHYDRAMINE) 04/25/2009 14 - Other: See Comments Comments: hyperactive CELEBREX (CELECOXIB) 05/28/2005 Comments: upsets stomach after prolonged use ie. 6 weeks ERYTHROMYCIN 02/05/2005 8 - GI Upset PROCHLORPERAZINE 09/29/2016 1 - Mental Status Change Comments: Agitation, felt ill TORADOL (KETOROLAC) 01/15/2015 11 - Vomiting VESICARE (SOLIFENACIN) 11/20/2009 2 - Rash Date Reviewed: 08/04/2017 Reviewed by: Praveen Dick Ma - Fully Assessed Reason for Visit: Recheck [92] Cmt: sinus pain, ear and sinus drainage Primary Visit Diagnosis:Acute non-recurrent maxillary sinusitis [J01.00] Other Visit Diagnosis:Acute serous otitis media of left ear, recurrence not specified [H65.02] Order(s):doxycycline monohydrate 100 mg tabletTake 1 tablet by mouth twice daily.Disp: 20 tabletRfl: 0 fluconazole (DIFLUCAN) 150 mg tabletTake 1 tablet by mouth once daily for 1 day.Disp: 1 tabletRfl: 0 Prescriptions as of 08/04/2017 Sig: DOXYCYCLINE MONOHYDRATE 100 M* Take 1 tablet by mouth twice * FLUCONAZOLE 150 MG TABLET Take 1 tablet by mouth once d* FLUTICASONE 50 MCG/ACTUATION * Use 2 Sprays in each nostril * BUPROPION XL 300 MG 24 HR TAB TAKE ONE TABLET BY MOUTH EVER* LEVOTHYROXINE 125 MCG TABLET Take 1 tablet by mouth once d* BUSPIRONE 15 MG TABLET TAKE ONE TABLET BY MOUTH TWIC* MIRABEGRON ER 50 MG TABLET,EX* Take 1 tablet by mouth once d* METFORMIN 500 MG TABLET Take 1 tablet by mouth twice * HYDROCHLOROTHIAZIDE 12.5 MG C* Take 1 capsule by mouth once * OMEPRAZOLE 40 MG CAPSULE,IGLESIA* Take 1 capsule by mouth once * ASPIRIN 81 MG TABLET,DELAYED * Take 1 tablet by mouth once d* PROBIOTIC (S.BOULARDII) ORAL Take by mouth once daily. Problem List As Of Date 08/04/2017 Noted Resolved Lumbago [M54.5] INVALID FOR*03/26/2016 Hypothyroidism [E03.9] Greater Trochanteric bursitis right [M76.899] INVALID FOR*03/26/2016 Sciatica [M54.30] INVALID FOR*03/26/2016 GENERALIZED ANXIETY DIS [F41.1] INVALID FOR* ESOPHAGEAL REFLUX [K21.9] INVALID FOR* Acute gastritis without mention of hemorrhage [*INVALID FOR*03/26/2016 ADJUSTMENT DISORDER WITH DEPRESSED MOOD [F43.21]INVALID FOR* BENIGN HYPERTENSION [I10] INVALID FOR* Contusion of chest wall [S20.219A] INVALID FOR*03/26/2016 Thoracic or lumbosacral neuritis or radiculitis*INVALID FOR*03/26/2016 Cluster headache syndrome [G44.009] INVALID FOR*03/26/2016 Pelvic pain in female [R10.2] INVALID FOR*03/26/2016 Chronic Interstitial Cystitis [N30.10] INVALID FOR* Cervical radiculopathy [M54.12] INVALID FOR*03/26/2016 Brachial neuritis or radiculitis NOS [M54.12] INVALID FOR*03/26/2016 Cervical disc disorder with radiculopathy [M50.*INVALID FOR*03/26/2016 Impaired glucose tolerance [R73.02] INVALID FOR* Lumbar disc disease with radiculopathy [M51.16] INVALID FOR*03/26/2016 Piriformis syndrome [G57.00] INVALID FOR*03/26/2016 Nonallopathic lesion of sacral region, not else*INVALID FOR*03/26/2016 Avascular necrosis of hip [M87.059] INVALID FOR* SI (sacroiliac) joint dysfunction [M53.3] INVALID FOR*03/26/2016 Obesity, Class III, BMI 40-49.9 (morbid obesity*INVALID FOR* Lumbar facet arthropathy (HCC) [M46.96] INVALID FOR*03/26/2016 Lumbar spondylosis [M47.816] INVALID FOR*03/26/2016 Left shoulder strain [S46.912A] INVALID FOR*10/19/2014 Left renal mass [N28.89] INVALID FOR*03/26/2016 Thoracolumbar back pain [M54.5, M54.6] INVALID FOR*03/26/2016 Morbid obesity with BMI of 40.0-44.9, adult [E6*INVALID FOR* Unspecified gastritis and gastroduodenitis with*INVALID FOR*03/26/2016 Right sided abdominal pain [R10.9] INVALID FOR*03/26/2016 Strain of right knee and leg [S86.911A] INVALID FOR*03/26/2016 Overactive bladder [N32.81] INVALID FOR* Metabolic syndrome X [E88.81] INVALID FOR* Essential thrombocythemia (HCC) [D47.3] INVALID FOR* Leukocytosis [D72.829] INVALID FOR* Renal cyst, left [N28.1] INVALID FOR* More... Primary cancer of left kidney (HCC) [C64.2] INVALID FOR* Renal mass, left [N28.89] INVALID FOR* Left renal mass [N28.89] INVALID FOR* Popliteal cyst, right [M71.21] INVALID FOR* Prescriptions ordered this encounter Disp Refills Start End DOXYCYCLINE MONOHYDRATE 100 MG TABLET 20 t* 0 08/04/2017 Route: ORAL Sig: Take 1 tablet by mouth twice daily. FLUCONAZOLE 150 MG TABLET 1 ta* 0 08/04/2017 08/05/2017 Route: ORAL Sig: Take 1 tablet by mouth once daily for 1 day. Letter Text Phoebe Dacosta M.D [address], [place] [address] 08/04/2017 TO WHOM IT MAY CONCERN: This is to confirm that Payton Mcqueen had an appointment and was seen at the [facility] in the Department of Family Medicine by Bertram Del Angel 08/04/2017 and may return to work on 08/06/2017. Sincerely yours, Phoebe Dacosta M.D Encounter Status:Closed by PHOEBE DACOSTA MD on 08/04/17 PROGRESS Observed: 07/20/2017 Status: COMPLETED Source: [place] 3:07 PM [facility] REPOSITORY HNO ID: [id number] Author: Leah Plascencia (Aaron) BUD Kyle Service: (none) Author Type: Nurse Practitioner Type: Progress Notes Filed: 07/20/2017 3:21 PM Note Text: Subjective HPI Patient presents with: Nasal Congestion: sinus pain and headaches with nausea x 10 days OTC cold/sinus medication with minimal relief. Review of Systems Constitutional: Negative for chills, fever and malaise/fatigue. HENT: Positive for congestion and sinus pain. Negative for ear pain and sore throat. +upper teeth pain Eyes: Negative for discharge and redness. Respiratory: Negative for cough. Gastrointestinal: Positive for nausea. Negative for abdominal pain, diarrhea and vomiting. Skin: Negative for rash. Neurological: Positive for headaches. All other systems reviewed and are negative. PAST MEDICAL HISTORY Diagnosis Date - Acute gastritis without mention of hemorrhage - Anxiety - Benign neoplasm of stomach - Cervical disc disorder with radiculopathy 02/18/2010 - Cyst of ovary 01/01/2015 [facility] - see scanned documents - Depressive disorder, not elsewhere classified - Essential thrombocythemia (HCC) 06/02/2016 - GERD (gastroesophageal reflux disease) - Hypertension 08/28/11 - IC (interstitial cystitis) - Impaired fasting glucose 04/02/2010 - Lumbar disc disease with radiculopathy 11/15/2010 - Metabolic syndrome X - Morbid obesity with BMI of 40.0-44.9, adult ([facility]) 08/29/2013 - Renal cyst, left 07/03/2016 18 mm, 06/18/16 - Sciatica - SI (sacroiliac) joint dysfunction 06/04/2011 - Thoracolumbar back pain 07/20/2013 - Unspecified hypothyroidism - Urinary calculus, unspecified Renal stones PAST SURGICAL HISTORY Procedure Laterality Date - CYSTOSCOPY,DIL BLADDER,LOCAL ANESTH 01/18/14 - EGD W/O [facility] SPECIMEN W/BX 04/09/2007 gastritis, gastric polyps - 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 Valadez - PAST SURGICAL HISTORY OF WISDOM TEETH EXTRACTIONS - PAST SURGICAL HISTORY OF 05/2012 bladder hydrodistension X 2 - PAST SURGICAL HISTORY OF 2015 pain injection lumbar- multiple - PAST SURGICAL HISTORY OF Cyst removed from head - REMOVAL GALLBLADDER 1991 Cholecystectomy ALLERGIES Benedryl [Diphenhydramine]; Celebrex [Celecoxib]; Erythromycin; Prochlorperazine; Toradol [Ketorolac]; Vesicare [Solifenacin] MEDICATIONS buPROPion XL (WELLBUTRIN XL) 300 mg 24 hr tablet TAKE ONE TABLET BY MOUTH EVERY DAY levothyroxine (SYNTHROID) 125 mcg tablet Take 1 tablet by mouth once daily. busPIRone (BUSPAR) 15 mg tablet TAKE ONE TABLET BY MOUTH TWICE DAILY mirabegron (MYRBETRIQ) 50 mg Tb24 Take 1 tablet by mouth once daily. metFORMIN (GLUCOPHAGE) 500 mg tablet Take 1 tablet by mouth twice daily with meals. Hydrochlorothiazide 12.5 mg capsule Take 1 capsule by mouth once daily. Omeprazole 40 mg capsule Take 1 capsule by mouth once daily. aspirin, enteric coated (ADULT LOW DOSE ASPIRIN) 81 mg EC tablet Take 1 tablet by mouth once daily. SACCHAROMYCES BOULARDII (PROBIOTIC, S.BOULARDII, ORAL) Take by mouth once daily. FAMILY HISTORY Problem Relation Age of Onset - Diabetes Father - Hypertension Father - Cancer Maternal Grandmother Lymphoma - Heart Maternal Grandfather hypertension - Hypertension Brother Social History Substance Use Topics - Smoking status: Never Smoker - Smokeless tobacco: Never Used - Alcohol use Yes Comment: rarely Objective Physical Exam Constitutional: She is well-developed, well-nourished, and in no distress. HENT: Head: Normocephalic. Right Ear: External ear and ear canal normal. A middle ear effusion is present. Left Ear: External ear and ear canal normal. A middle ear effusion is present. Nose: Mucosal edema present. Right sinus exhibits maxillary sinus tenderness. Right sinus exhibits no frontal sinus tenderness. Left sinus exhibits maxillary sinus tenderness. Left sinus exhibits no frontal sinus tenderness. Mouth/Throat: Posterior oropharyngeal erythema (injected with PND) present. Eyes: Conjunctivae are normal. Neck: Normal range of motion. Neck supple. Cardiovascular: Normal rate, regular rhythm and normal heart sounds. Pulmonary/Chest: Effort normal and breath sounds normal. No respiratory distress. She has no wheezes. Abdominal: Soft. Lymphadenopathy: She has no cervical adenopathy. Skin: Skin is warm and dry. No rash noted. Nursing note and vitals reviewed. ASSESSMENT/PLAN: 1. Acute maxillary sinusitis, recurrence not specified - ICD9: 461.0, ICD10: J01.00 - Will begin treatment with Augmentin 875 mg PO BID for 10 days - The patient should also be given OTC decongestants prn, warm salt water gargles, throat lozenges and/or OTC throat spray as needed and nasal saline gtts and suction prn for the first 5-7 days of treatment. - Supportive care with plenty of fluids, rest, and analgesia prn. - Follow up in 3-5 days if symptoms persist or worsen. Prescription instructions reviewed with patient as applicable. Patient advised if symptoms do not improve or if symptoms worsen sooner, to contact their primary care physician. Potential red flag symptoms discussed with the patient. Reviewed appropriate action plan to take if red flag symptoms occur. Patient agreeable to treatment plan. Leah Kyle CNP PROGRESS Observed: 07/19/2017 Status: COMPLETED Source: [place] 1:10 PM [facility] REPOSITORY HNO ID: [id number] Author: Mae Morton III Service: (none) Author Type: Physician Type: Progress Notes Filed: 07/19/2017 1:10 PM Note Text: J Carlos, Your results are either normal or within normal limits. Continue the present dose of thyroid medication. Mae Morton III MD PROGRESS Observed: 07/10/2017 Status: COMPLETED Source: [place] 3:46 PM [facility] REPOSITORY HNO ID: [id number] Author: Ebony Mccloud Service: (none) Author Type: Physician Type: Progress Notes Filed: 07/11/2017 6:58 AM Note Text: PATIENT NAME: Payton Mcqueen. CLINIC NO: [id number]. ATTENDING PHYSICIAN: Ebony Mccloud MD. DATE OF SERVICE: 07/10/2017. ?? 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 Status post partial nephrectomy ?? HPI: This is a [id number]- moderately obese female with history of chronic interstitial cystitis. Patient had received antibiotic on and off for months. Patient has occasional pelvic pain but no dysuria, gross hematuria or urinary frequency. ?? CT scan of the abdomen and pelvis in February did not show kidney stone, however, there is a left cystic adnexal mass and a mass in the left lower pole of the kidney. Patient has history of fatty liver disease, but no evidence of splenomegaly. She has no fever, chills or night sweats. No significant weight loss or abdominal pain. No history of jaundice or early satiety. Patient also has chronic back pain. ?? Current treatment: Hydrea ?? Interim history:?Patient has a partial nephrectomy for low grade renal neoplasm last year. Patient had nausea and flulike symptom with Hydrea. She stopped Hydrea in all her symptom improvement. She denies fever, chills or sweating. She has no bleeding or bruising. she has no early satiety, denies headaches, visual changes or hyperviscosity symptom. ?? FINAL DIAGNOSIS 1. Left kidney, tumor, partial nephrectomy (A) - Oncocytic renal neoplasm of low malignant potential (1.8 cm in greatest dimension). See synoptic report. - Tumor is confined to the kidney. - Lymphovascular invasion is not identified. - Renal parenchymal and capsular margins of resection are negative for tumor. 2. Peritumor fat, excision (B) - Adipose tissue, negative for malignancy. CMG/ROB/jerry 10/16/16 SYNOPTIC REPORT OF MURRAY PATHOLOGIC FINDINGS LEFT KIDNEY TUMOR: ? ? ?KIDNEY:NEPHRECTOMY Specimen: ? ? ? Kidney Procedure: ? ? ? Partial nephrectomy Specimen Laterality: ? ? ? Left Tumor Focality: ? ? ? Unifocal Histologic Type: ? ? ? Other: Oncocytic renal neoplasm of low malignant potential Sarcomatoid Features: ? ? ? Not identified Rhabdoid Features: ? ? ? Not identified Histologic Grade (ISUP Nucleolar Grade): ? ? ? Not applicable Tumor Necrosis: ? ? ? Not identified Tumor Size: ? ? ? Greatest dimension: 1.8 cm ? ? ? Additional dimension: 1.6 cm ? ? ? Additional dimension: 0.9 cm Anatomic Extent of Tumor: ? ? ? Tumor limited to kidney Margin Status: ? ? ? Uninvolved by invasive carcinoma Lymphovascular Invasion: ? ? ? Not identified Pathologic Stage Classification(pTNM, AJCC 7th Edition) TNM Descriptors: ? ? ? Not applicable Primary Tumor (pT): ? ? ? pT1a: Tumor 4 cm or less in greatest dimension, limited to the kidney Regional Lymph Nodes (pN): ? ? ? pNX: ?Regional lymph nodes cannot be assessed ? ? ? No nodes submitted or found Pathologic Findings in Nonneoplastic Kidney: ? ? ? Glomerular disease: Focal glomerulosclerosis ? ? ? Vascular disease: Mild atherosclerosis. ? REVIEW OF SYSTEMS: ?? CONSTITUTIONAL: No fevers, chills, nightsweats, unintended weight loss HEENT: Denies frequent or severe heaches, nasal congestion/sinus symptoms, problematic allergy problems. EYES: No diplopia or blurry vision. CARDIOVASCULAR: No chest pain, dyspnea, palpitations, orthopnea, PND, ankle edema. PULM: No dyspnea, unexplained cough. GI: No dysphagia/odynophagia, problematic reflux, constipation, diarrhea, changes in stool habits, hematochezia, melena. : No new urinary complaints, + history of intermittent dysuria, and gross hematuria; no flank pain. NEURO: No new balance problems, peripheral weakness/paresthesias or numbness of concern. MUSC-SKEL: No new joint pain, swelling, or erythema. PSY: No concerns regarding depression, anxiety or panic. INTEGUMENTARY: No new skin changes (rash, new or changing mole, new growth) ?? PHYSICAL EXAMINATION: 51-year-old obese female in no distress BP 163/87 Pulse 106 Temp 98.2 Wt 265 lb (120.2kg) HEENT: Head is normocephalic, atraumatic. Sclerae white, conjunctivae pink. PEERL. EOMs are intact. Oropharynx is benign. LYMPHATICS: There is no palpable adenopathy in the neck, supraclavicular region, axillae, or groin. LUNGS: Lungs are clear to percussion and auscultation. HEART: Heart is normal without murmurs, gallops, or rubs. ABDOMEN: Soft and nontender without organomegaly. No masses can be palpated. EXTREMITIES: Are without edema. No ecchymosis. NEUROLOGIC: Exam is physiologic ?? LABS: Component Latest Ref Rng AND Units 07/10/2017 WBC, [place] 3.70 - 11.00 k/uL 14.97 (H) RBC, [place] 3.90 - 5.20 m/uL 5.45 (H) Hemoglobin, [place] 11.5 - 15.5 g/dL 12.4 Hematocrit, [place] 36.0 - 46.0 % 42.0 MCV, [place] 80.0 - 100.0 fL 77.1 (L) MCH, [place] 26.0 - 34.0 pg 22.8 (L) MCHC, [place] 30.5 - 36.0 g/dL 29.5 (L) RDW, [place] 11.5 - 15.0 % 21.1 (H) Platelet Cnt, [place] 150 - 400 k/uL 658 (H) MPV, [place] 9.0 - 12.7 fL 9.7 Absol Gran Count 1.45 - 7.50 k/uL 11.13 (H) Component Latest Ref Rng AND Units 07/10/2017 Protein, Total 6.3 - 8.0 g/dL 7.6 Albumin 3.9 - 4.9 g/dL 4.2 Calcium 8.5 - 10.2 mg/dL 9.3 Bilirubin, Total 0.2 - 1.3 mg/dL 0.2 Alkaline Phosphatase 32 - 117 U/L 101 AST 13 - 35 U/L 32 Glucose 74 - 99 mg/dL 102 (H) BUN 7 - 21 mg/dL 7 Creatinine 0.58 - 0.96 mg/dL 0.82 Sodium 136 - 144 mmol/L 138 Potassium 3.7 - 5.1 mmol/L 4.1 Chloride 97 - 105 mmol/L 99 CO2 22 - 30 mmol/L 27 Anion Gap 9 - 18 mmol/L 12 ALT 7 - 38 U/L 25 eGFR- >60 eGFR-All Other Races . >60 TSH 0.400 - 5.500 uU/mL 1.450 LD 135 - 214 U/L 273 (H) ? ASSESSMENT:?52 year-old female with history of myeloproliferative disorder/essentral thrombocythemia and low malignant potential-kidney cancer-left lower pole kidney. Clinically stage I, T1a. Mx, . JIMMY ?? Patient is doing well. She has no fever, chills or night sweats. Flulike symptoms past resolved after stopping Hydrea. He has no headaches, bleeding or bruising. ?? PLAN: Continue observation. ?CBC every 6 months x2. Repeat CBC, CMP, and LDH ?OV in 1 year. Follow-up bilateral screening mammogram this month at [facility]. ??continue aspirin 81mg once daily. we'll consider treatment if her platelet counts greater than 1,000,000. Ebony Mccloud MD ?? Cc: Dr. Mae Morton, III [place] ABS GR + CBC Collected: 07/10/2017 Status: F Source: [place] 3:21 PM [facility] [place] REPOSITORY TYPE CODE TESTS RESULT OUT OF REFERENCE UNITS RANGE LAB WWBC 3.70-11.00 k/uL [place] High WBC 14.97 LAB WRBC 3.90-5.20 m/uL [place] High RBC 5.45 LAB WHGB 11.5-15.5 g/dL [place] Hemoglobin 12.4 LAB WHCT 36.0-46.0 % [place] Hematocrit 42.0 LAB WMCV 80.0-100.0 fL Low [place] MCV 77.1 LAB WMCH 26.0-34.0 pg Low [place] MCH 22.8 LAB WMCHC 30.5-36.0 g/dL Low [place] MCHC 29.5 Result Comment: Result rechecked. LAB WRDW 11.5-15.0 % High [place] RDW 21.1 LAB WPLT 150-400 k/uL High [place] 658 Platelet Cnt LAB WMPV 9.0-12.7 fL [place] MPV 9.7 Result Comment: Test performed at: [facility] [place], [address] [place] [address]. LAB ABGRAN 1.45-7.50 k/uL High Absol 11.13 Gran Count COMP METABOLIC PANEL Collected: 07/10/2017 Status: F Source: [place] 3:21 PM [facility] REPOSITORY TYPE CODE TESTS RESULT OUT OF REFERENCE UNITS RANGE LAB TP 6.3-8.0 g/dL Protein, Total 7.6 LAB ALB 3.9-4.9 g/dL Albumin 4.2 LAB CA 8.5-10.2 mg/dL Calcium, Total 9.3 LAB TBIL 0.2-1.3 mg/dL Bilirubin, Total 0.2 LAB ALKP 32-117 U/L Alkaline Phosphatase 101 LAB AST 13-35 U/L AST 32 LAB GLU 74-99 mg/dL Glucose High 102 Result Comment: The [place] Diabetes Association (ADA) provides guidance for cutoff values for fasting glucose and random glucose. The ADA defines fasting as no caloric intake for at least 8 hours. Fas ting plasma glucose results between 100 to 125 mg/dL indicate increased risk for diabetes (prediabetes). Fasting plasma glucose results greater than or equal to 126 mg/dL meet the criteria for diagnosis of diabetes. In the absence of unequivocal hyperglycemia, results should be confirmed by repeat testing. In a patient with classic symptoms of hyperglycemia or hyperglycemic crisis, random plasma glucose results greater than or equal to 200 mg/dL meet the criteria for diagnosis of diabetes. Reference: Standards of Medical Care in Diabetes 2016, [place] Diabetes Association. Diabetes Care. 2016.39(Suppl 1). LAB BUN 7-21 mg/dL BUN 7 LAB CRET 0.58-0.96 mg/dL Creatinine 0.82 LAB NA 136-144 mmol/L Sodium 138 LAB K 3.7-5.1 mmol/L Potassium 4.1 LAB CL 97-105 mmol/L Chloride 99 LAB CO2 22-30 mmol/L CO2 27 LAB AGAP 9-18 mmol/L Anion Gap 12 LAB ALT 7-38 U/L ALT 25 LAB GFRAA eGFR- Amer. >60 LAB GFRNAA . eGFR-All Other Races >60 Result Comment: eGFR (Estimated GFR) Units of measure: mL/min/1.73 meters squared eGFR is derived from the reexpressed MDRD Study equation using the following parameters: serum creatinine, age, gender and race. The creatinine assay has been calibrated to be traceable to IDMS. An eGFR <60 mL/min/1.73m2 for >3 months is consistent with chronic kidney disease. Refer to KDOQI guidelines for clinical interpretation. In patients with unstable renal function, e.g. those with acute kidney injury, the eGFR may not accurately reflect actual GFR. Performed By: #### CMP, LD6, TSH #### [facility] [employer] [address] [place], [place] [address] LD Collected: 07/10/2017 Status: F Source: [facility] 3:21 PM [facility] REPOSITORY TYPE CODE TESTS RESULT OUT OF RANGE REFERENCE UNITS LAB LD 135-214 U/L High LD 273 Performed By: #### CMP, LD6, TSH #### [facility] [employer] [address] [place], [place] [address] TSH Collected: 07/10/2017 Status: F Source: [place] 3:21 PM [facility] REPOSITORY TYPE CODE TESTS RESULT OUT OF RANGE REFERENCE UNITS LAB TSH 0.400-5.500 uU/mL TSH 1.450 Result Comment: If the patient is , TSH reference range varies by gestational period: First Trimester 0.100-2.500 uU/mL Second Trimester 0.200-3.000 uU/mL Third Trimester 0.300-3.000 uU/mL References: 1. Rodriguez L, Jesus M, Herbert EK, et al. Management of Thyroid Dysfunction during and : An Endocrine Society Clinical Practice Guideline. J Clin Endocrinol Metab, 2012:97:9685-7516. 2. Henry HUTCHISON. Overview of thyroid disease in . UpToDate. 2016. Accessed on November 09, 2015. Performed By: #### CMP, LD6, TSH #### [facility] [address] [place], [place] [address] CNOVSP Observed: 07/10/2017 Status: COMPLETED Source: [place] 3:10 PM [facility] REPOSITORY Visit (SP) Office (HEMMARGOTH) PAYTON MCQUEEN ([id number]) 1965 F Date Time Provider Department 07/10/17 3:10 PM EBONY MCCLOUD During your visit today, we recorded the following information about you: Temperature Pulse Blood pressure Weight 98.2 degrees 106/minute 163/87 120.2 kg Ramona Pierre LPN 07/10/2017 3:39 PM Signed Est patient. Six month ov. Discuss recent labs. Ramona Mccloud MD 07/10/2017 3:44 PM Signed Get your screening Mammogram now. Ebony Mccloud MD 07/11/2017 6:58 AM Signed PATIENT NAME: Payton Mcqueen. CLINIC NO: [id number]. ATTENDING PHYSICIAN: Ebony Mccloud MD. DATE OF SERVICE: 07/10/2017. ?? 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 Status post partial nephrectomy ?? HPI: This is a [id number]- moderately obese female with history of chronic interstitial cystitis. Patient had received antibiotic on and off for months. Patient has occasional pelvic pain but no dysuria, gross hematuria or urinary frequency. ?? CT scan of the abdomen and pelvis in February did not show kidney stone, however, there is a left cystic adnexal mass and a mass in the left lower pole of the kidney. Patient has history of fatty liver disease, but no evidence of splenomegaly. She has no fever, chills or night sweats. No significant weight loss or abdominal pain. No history of jaundice or early satiety. Patient also has chronic back pain. ?? Current treatment: Hydrea ?? Interim history:?Patient has a partial nephrectomy for low grade renal neoplasm last year. Patient had nausea and flulike symptom with Hydrea. She stopped Hydrea in all her symptom improvement. She denies fever, chills or sweating. She has no bleeding or bruising. she has no early satiety, denies headaches, visual changes or hyperviscosity symptom. ?? FINAL DIAGNOSIS 1. Left kidney, tumor, partial nephrectomy (A) - Oncocytic renal neoplasm of low malignant potential (1.8 cm in greatest dimension). See synoptic report. - Tumor is confined to the kidney. - Lymphovascular invasion is not identified. - Renal parenchymal and capsular margins of resection are negative for tumor. 2. Peritumor fat, excision (B) - Adipose tissue, negative for malignancy. MEG/ROB/jerry 10/16/16 SYNOPTIC REPORT OF MURRAY PATHOLOGIC FINDINGS LEFT KIDNEY TUMOR: ? ? ?KIDNEY:NEPHRECTOMY Specimen: ? ? ? Kidney Procedure: ? ? ? Partial nephrectomy Specimen Laterality: ? ? ? Left Tumor Focality: ? ? ? Unifocal Histologic Type: ? ? ? Other: Oncocytic renal neoplasm of low malignant potential Sarcomatoid Features: ? ? ? Not identified Rhabdoid Features: ? ? ? Not identified Histologic Grade (ISUP Nucleolar Grade): ? ? ? Not applicable Tumor Necrosis: ? ? ? Not identified Tumor Size: ? ? ? Greatest dimension: 1.8 cm ? ? ? Additional dimension: 1.6 cm ? ? ? Additional dimension: 0.9 cm Anatomic Extent of Tumor: ? ? ? Tumor limited to kidney Margin Status: ? ? ? Uninvolved by invasive carcinoma Lymphovascular Invasion: ? ? ? Not identified Pathologic Stage Classification(pTNM, AJCC 7th Edition) TNM Descriptors: ? ? ? Not applicable Primary Tumor (pT): ? ? ? pT1a: Tumor 4 cm or less in greatest dimension, limited to the kidney Regional Lymph Nodes (pN): ? ? ? pNX: ?Regional lymph nodes cannot be assessed ? ? ? No nodes submitted or found Pathologic Findings in Nonneoplastic Kidney: ? ? ? Glomerular disease: Focal glomerulosclerosis ? ? ? Vascular disease: Mild atherosclerosis. ? REVIEW OF SYSTEMS: ?? CONSTITUTIONAL: No fevers, chills, nightsweats, unintended weight loss HEENT: Denies frequent or severe heaches, nasal congestion/sinus symptoms, problematic allergy problems. EYES: No diplopia or blurry vision. CARDIOVASCULAR: No chest pain, dyspnea, palpitations, orthopnea, PND, ankle edema. PULM: No dyspnea, unexplained cough. GI: No dysphagia/odynophagia, problematic reflux, constipation, diarrhea, changes in stool habits, hematochezia, melena. : No new urinary complaints, + history of intermittent dysuria, and gross hematuria; no flank pain. NEURO: No new balance problems, peripheral weakness/paresthesias or numbness of concern. MUSC-SKEL: No new joint pain, swelling, or erythema. PSY: No concerns regarding depression, anxiety or panic. INTEGUMENTARY: No new skin changes (rash, new or changing mole, new growth) ?? PHYSICAL EXAMINATION: 51-year-old obese female in no distress BP 163/87 Pulse 106 Temp 98.2 Wt 265 lb (120.2kg) HEENT: Head is normocephalic, atraumatic. Sclerae white, conjunctivae pink. PEERL. EOMs are intact. Oropharynx is benign. LYMPHATICS: There is no palpable adenopathy in the neck, supraclavicular region, axillae, or groin. LUNGS: Lungs are clear to percussion and auscultation. HEART: Heart is normal without murmurs, gallops, or rubs. ABDOMEN: Soft and nontender without organomegaly. No masses can be palpated. EXTREMITIES: Are without edema. No ecchymosis. NEUROLOGIC: Exam is physiologic ?? LABS: Component Latest Ref Rng ANDamp; Units 07/10/2017 WBC, [place] 3.70 - 11.00 k/uL 14.97 (H) RBC, [place] 3.90 - 5.20 m/uL 5.45 (H) Hemoglobin, [place] 11.5 - 15.5 g/dL 12.4 Hematocrit, [place] 36.0 - 46.0 % 42.0 MCV, [place] 80.0 - 100.0 fL 77.1 (L) MCH, [place] 26.0 - 34.0 pg 22.8 (L) MCHC, [place] 30.5 - 36.0 g/dL 29.5 (L) RDW, [place] 11.5 - 15.0 % 21.1 (H) Platelet Cnt, [place] 150 - 400 k/uL 658 (H) MPV, [place] 9.0 - 12.7 fL 9.7 Absol Gran Count 1.45 - 7.50 k/uL 11.13 (H) Component Latest Ref Rng ANDamp; Units 07/10/2017 Protein, Total 6.3 - 8.0 g/dL 7.6 Albumin 3.9 - 4.9 g/dL 4.2 Calcium 8.5 - 10.2 mg/dL 9.3 Bilirubin, Total 0.2 - 1.3 mg/dL 0.2 Alkaline Phosphatase 32 - 117 U/L 101 AST 13 - 35 U/L 32 Glucose 74 - 99 mg/dL 102 (H) BUN 7 - 21 mg/dL 7 Creatinine 0.58 - 0.96 mg/dL 0.82 Sodium 136 - 144 mmol/L 138 Potassium 3.7 - 5.1 mmol/L 4.1 Chloride 97 - 105 mmol/L 99 CO2 22 - 30 mmol/L 27 Anion Gap 9 - 18 mmol/L 12 ALT 7 - 38 U/L 25 eGFR- ANDgt;60 eGFR-All Other Races . ANDgt;60 TSH 0.400 - 5.500 uU/mL 1.450 LD 135 - 214 U/L 273 (H) ? ASSESSMENT:?52 year-old female with history of myeloproliferative disorder/essentral thrombocythemia and low malignant potential-kidney cancer-left lower pole kidney. Clinically stage I, T1a. Mx, . JIMMY ?? Patient is doing well. She has no fever, chills or night sweats. Flulike symptoms past resolved after stopping Hydrea. He has no headaches, bleeding or bruising. ?? PLAN: Continue observation. ?CBC every 6 months x2. Repeat CBC, CMP, and LDH ?OV in 1 year. Follow-up bilateral screening mammogram this month at [facility]. ??continue aspirin 81mg once daily. we'll consider treatment if her platelet counts greater than 1,000,000. Ebony Mccloud MD ?? Cc: Dr. Mae Morton, III Referring Provider: EBONY MCCLOUD [[id number]] Allergies As of Date: 07/10/2017 Noted Allergy Reaction BENEDRYL (DIPHENHYDRAMINE) 04/25/2009 14 - Other: See Comments Comments: hyperactive CELEBREX (CELECOXIB) 05/28/2005 Comments: upsets stomach after prolonged use ie. 6 weeks ERYTHROMYCIN 02/05/2005 8 - GI Upset PROCHLORPERAZINE 09/29/2016 1 - Mental Status Change Comments: Agitation, felt ill TORADOL (KETOROLAC) 01/15/2015 11 - Vomiting VESICARE (SOLIFENACIN) 11/20/2009 2 - Rash Date Reviewed: 07/10/2017 Reviewed by: Ramona Pierre LPN - Fully Assessed Reason for Visit: Established Patient [175] Primary Visit Diagnosis:Essential thrombocythemia (HCC) [D47.3] Order(s):DENISE CBC AND DIFF [SQWCBCDF] Order #: [id number] STANDING Level of Service: EST PATIENT VISIT LEVEL 3 [[id number]] Disposition: Return in about 1 year (around 07/10/2018). Follow-up and Disposition History Recorded Prescriptions as of 07/10/2017 Sig: BUPROPION XL 300 MG 24 HR TAB TAKE ONE TABLET BY MOUTH EVER* LEVOTHYROXINE 125 MCG TABLET Take 1 tablet by mouth once d* BUSPIRONE 15 MG TABLET TAKE ONE TABLET BY MOUTH TWIC* MIRABEGRON ER 50 MG TABLET,EX* Take 1 tablet by mouth once d* METFORMIN 500 MG TABLET Take 1 tablet by mouth twice * HYDROCHLOROTHIAZIDE 12.5 MG C* Take 1 capsule by mouth once * OMEPRAZOLE 40 MG CAPSULE,IGLESIA* Take 1 capsule by mouth once * ASPIRIN 81 MG TABLET,DELAYED * Take 1 tablet by mouth once d* PROBIOTIC (S.BOULARDII) ORAL Take by mouth once daily. Medication notes this encounter HYDROCHLOROTHIAZIDE 12.5 MG CAPSULE >> Ramona Pierre LPN 07/10/2017 3:30 PM >> RAMONA PIERRE LPN Jul 10, 2017 3:30 PM duplicate TRAMADOL 50 MG TABLET >> Ramona Pierre LPN 07/10/2017 3:31 PM >> RAMONA PIERRE LPN Jul 10, 2017 3:31 PM Not taking Problem List As Of Date 07/10/2017 Noted Resolved Lumbago [M54.5] INVALID FOR*03/26/2016 Hypothyroidism [E03.9] Greater Trochanteric bursitis right [M76.049] INVALID FOR*03/26/2016 Sciatica [M54.30] INVALID FOR*03/26/2016 GENERALIZED ANXIETY DIS [F41.1] INVALID FOR* ESOPHAGEAL REFLUX [K21.9] INVALID FOR* Acute gastritis without mention of hemorrhage [*INVALID FOR*03/26/2016 ADJUSTMENT DISORDER WITH DEPRESSED MOOD [F43.21]INVALID FOR* BENIGN HYPERTENSION [I10] INVALID FOR* Contusion of chest wall [S20.219A] INVALID FOR*03/26/2016 Thoracic or lumbosacral neuritis or radiculitis*INVALID FOR*03/26/2016 Cluster headache syndrome [G44.009] INVALID FOR*03/26/2016 Pelvic pain in female [R10.2] INVALID FOR*03/26/2016 Chronic Interstitial Cystitis [N30.10] INVALID FOR* Cervical radiculopathy [M54.12] INVALID FOR*03/26/2016 Brachial neuritis or radiculitis NOS [M54.12] INVALID FOR*03/26/2016 Cervical disc disorder with radiculopathy [M50.*INVALID FOR*03/26/2016 Impaired glucose tolerance [R73.02] INVALID FOR* Lumbar disc disease with radiculopathy [M51.16] INVALID FOR*03/26/2016 Piriformis syndrome [G57.00] INVALID FOR*03/26/2016 Nonallopathic lesion of sacral region, not else*INVALID FOR*03/26/2016 Avascular necrosis of hip [M87.059] INVALID FOR* SI (sacroiliac) joint dysfunction [M53.3] INVALID FOR*03/26/2016 Obesity, Class III, BMI 40-49.9 (morbid obesity*INVALID FOR* Lumbar facet arthropathy (HCC) [M46.96] INVALID FOR*03/26/2016 Lumbar spondylosis [M47.816] INVALID FOR*03/26/2016 Left shoulder strain [S46.912A] INVALID FOR*10/19/2014 Left renal mass [N28.89] INVALID FOR*03/26/2016 Thoracolumbar back pain [M54.5, M54.6] INVALID FOR*03/26/2016 Morbid obesity with BMI of 40.0-44.9, adult [E6*INVALID FOR* Unspecified gastritis and gastroduodenitis with*INVALID FOR*03/26/2016 Right sided abdominal pain [R10.9] INVALID FOR*03/26/2016 Strain of right knee and leg [S86.911A] INVALID FOR*03/26/2016 Overactive bladder [N32.81] INVALID FOR* Metabolic syndrome X [E88.81] INVALID FOR* Essential thrombocythemia (HCC) [D47.3] INVALID FOR* Leukocytosis [D72.829] INVALID FOR* Renal cyst, left [N28.1] INVALID FOR* More... Primary cancer of left kidney (HCC) [C64.2] INVALID FOR* Renal mass, left [N28.89] INVALID FOR* Left renal mass [N28.89] INVALID FOR* Popliteal cyst, right [M71.21] INVALID FOR* Other instructions from your clinician: Get your screening Mammogram now. Visit Notes: >> Ramona Pierre LPN ThuJul 10, 2017 3:29 PM Status: Signed Est patient. Six month ov. Discuss recent labs. Ramona Pierre LPN Encounter Status:Closed by EBONY MCCLOUD MD on 07/11/17 ALLERGIES ALLERGIES DATE TYPE / NAME / CODE REACTION SEVERITY SOURCE CODE 06/15/2018 Drug diphenhydramine Other Unknown [place] Allergy/41 HCl/[id number](RXNORM) [facility] [id number]([facility]) Repository 06/15/2018 Drug ketorolac Hives Unknown [place] Allergy/41 tromethamine/[id number] [facility] [id number]([facility](RXNORM) [facility]) Repository 06/15/2018 Drug solifenacin Hives Unknown [place] Allergy/41 succinate/[id number]([facility] [id number]([facility]) Repository 06/15/2018 Drug erythromycin Nausea/Vom/[place] Unknown [place] Allergy/41 base/[id number]([facility] [id number] Repository 06/15/2018 Drug celecoxib/[id number](R Nausea/Vom/[place] Unknown [place] Allergy/41 XNORM) [facility] [id number]([facility]) Repository 01/23/2018 DRUG LISINOPRIL UNKNOWN [place] [address] [address] [id number]([facility]) Repository 09/29/2016 DRUG PROCHLORPERAZINE Mental Chg [place] [address] [facility] [address] [id number]([facility]) Repository 01/15/2015 DRUG KETOROLAC Vomiting [address] Main [id number]( [place] [facility]) Repository 11/20/2009 DRUG SOLIFENACIN RASH [place] [address] [facility] [address] [id number]( [place] [facility]) Repository 04/25/2009 DRUG DIPHENHYDRAMINE OTHER: SEE C [place] [address] [facility] [address] [id number]( [place] [facility]) Repository 05/28/2005 DRUG CELECOXIB [address] Main [id number]( [place] [facility]) Repository 02/05/2005 DRUG/00022 ERYTHROMYCIN GI UPSET [place] [address]([facility]) [place] Repository ENCOUNTERS ENCOUNTERS ADMIT/DISCHARGE ACCOUNT ADMITTING ENCOUNTER LOCATION SOURCE NUMBER CLASS 06/15/2018/06/15/19 [id number] Emergency [address] ing:ED Repository 06/04/2018/06/07/19 [id number] Ambulatory [address] Main [place] Repository 06/01/2018 [id number] Ambulatory [facility] ing:[facility]SPEC Repository 05/31/2018/05/31/19 [id number] Ambulatory BMSBuilding:B [address] Repository 05/08/2018/05/10/20 [id number] Ambulatory [address] Main [place] Repository 05/03/2018/05/03/20 [id number] Ambulatory [address] [place] Repository 04/07/2018/04/07/20 [id number] Ambulatory [address] ing:PT Repository 04/02/2018/04/05/20 [id number] Ambulatory [address] Main [place] Repository 03/19/2018/03/22/20 [id number] Ambulatory [address] Main [place] Repository 03/15/2018/03/16/20 [id number] Ambulatory [address] Main [place] Repository 02/06/2018/02/09/20 [id number] Ambulatory [address] Main [place] Repository 01/23/2018/01/27/20 [id number] Ambulatory [address] Main [place] Repository 01/23/2018/01/24/20 [id number] Ambulatory [address] Main [facility] 01/11/2018/01/13/20 [id number] [facility] [place] 12/22/2017/12/24/19 [id number] [facility] [place] 12/10/2017 [id number] Ambulatory [facility] ing:[facility] Repository 11/16/2017/11/20/19 [id number] [facility] [place] [facility] 11/05/2017/11/10/19 [id number] [facility] [place] [facility] 10/13/2017/10/16/19 [id number] [facility] [place] [facility] 10/10/2017/10/14/19 [id number] [facility] [place] [facility] 08/24/2017/08/26/19 [id number] [facility] [place] [facility] 08/04/2017/08/06/19 [id number] [facility] [place] [facility] 07/20/2017/07/24/19 [id number] [facility] [place] 07/10/2017/07/10/19 [id number] [facility] [place] 07/10/2017/07/10/19 [id number] [facility] [place] PAYERS PAYERS ENCOUNTER GUARANTOR PAYER SUBSCRIBER SOURCE 06/15/2018 PAYTON Caicedo Primary PAYTON [id number] Insurance[facility]OURCEP [facility] Number: [id number], [place] [id number] Repository [address]Uzu: ([phone]) Date:2018-06-15P O [phone] () [address]ATTN: [place] [address]UD: 06/15/2018 Secondary NOT GIVENUNK Denise Insurance:SELF PAY [facility] Number: Effective Repository Date:2018-06-15 06/01/2018 PAYTON Caicedo Primary PAYTON [id number] [facility] Number: [id number] [place]ios, [place] [id number] Repository [address]Cpy: ([phone]) Date:2018-06-01P O [phone] () [address]ATTN: [place] [address]FF: 06/01/2018 Secondary NOT GIVENUNK Winkelman Insurance:SELF PAY [facility] Number: Effective Repository Date:2018-06-01 05/31/2018 PAYTON L Primary PAYTON L Winkelman [id number] Insurance:CARESOURCEP RUTTERDOB: [facility] ERIN celesteyadiel Number: [id number] [place], [place] [id number] Repository [address]Lyz: ([phone]) Date:2018-05-31P O [phone] () [address]ATTN: [place] [address]HV: 05/31/2018 Secondary NOT GIVENUNK Denise Insurance:SELF PAY [facility] Number: Effective Repository Date:2018-05-31 04/07/2018 PAYTON L Primary PAYTON L Winkelman [id number] Insurance:CARESOURCEP [facility] Number: [id number] [place], [place] [id number] Repository [address]Vsy: ([phone]) Date:2017-04-24P O [phone] () [address]ATTN: [place] [address]LI: 04/07/2018 Secondary NOT GIVENUNK Winkelman Insurance:SELF PAY [facility] Number: Effective Repository Date:2018-03-30 12/10/2017 PAYTON L Primary PAYTON L Winkelman [id number] Insurance:CARESOURCEP [facility]UTTERDOB[facility] Number: [id number] [place] [id number] Repository [address]Our: ([phone]) Date:2017-11-26P O [phone] () [address]ATTN: [place] [address]HJ: 12/10/2017 Secondary NOT GIVENUNK Denise Insurance:SELF PAY [facility] Number: Effective Repository Date:2017-11-26
== END 2018-06-15 20:14 | disposition home or self-care (01) ==
PROVIDERS: Emergency Provider Emergency Medicine; Family Provider Family Medicine; PCP Family Medicine
DX: M71.22 Synovial cyst of popliteal space [Baker], left knee (principal); I10 Essential (primary) hypertension; Z79.899 Other long term (current) drug therapy
CPT/HCPCS: 93971; 99282

== ENCOUNTER 2019-01-16 14:50 | Observation (INO) | payer MEDICAID, SELFPAY ==
[2019-01-16] VITALS (7 sets, daily range): BP systolic 129–164; BP diastolic 57–81; PULSE 87–95; RESP 12–24; TEMP 36.8–37.3; O2SAT 92–98; BMI 45.1; BMI 45.7
--- NOTE | 2019-01-16 15:09 | EKG12_ITS ---
Test Reason : Blood Pressure : / mmHG Vent. Rate : 098 BPM Atrial Rate : 098 BPM P-R Int : 162 ms QRS Dur : 094 ms QT Int : 374 ms P-R-T Axes : 050 036 035 degrees QTc Int : 477 ms Normal sinus rhythm Normal ECG Confirmed by YULIANA COOK, PILAR ([id number]), medical editor FIDE RINCON ([id number]) on 01/19/2019 11:48:07 AM Referred By: Katie Quezada Confirmed By:PILAR BRIDGES MD
[2019-01-16 15:16] LABS: Absolute Lymphocyte Count 2.51 X10^3/uL (0.83-4.51); Absolute Neutrophil Count 17.7 X10^3/uL (2.0-7.7); Basophil# 0.26 X10^3/uL; Basophil% 1.2 % (0-1); Eosinophils% 2.3 % (0-5); Hematocrit 43.2 % (37-47); Hemoglobin 12.4 g/dL (12.0-15.0); Lymphocyte # 2.51 X10^3/ul (4.0); Lymphocyte % 11.5 % (19-41); Mean Corp Hgb Conc 28.7 g/dL (32-36); Mean Corpuscular Volume 73.2 fL (81-99); Mean Platelet Vol. 8.9 fl (6.2-12.0); Monocyte# 0.77 X10^3/uL; Monocyte% 3.5 % (0-10); NRBC Flagged by Analyzer 0 % (0-5); Neutrophil # 17.74 X10^3/uL (2.7-7.7); Neutrophil % 80.9 % (47-70); POSITIVE MORPHOLOGY YES; Platelet Count 700 K/mm3 (150-450); RBC Distribution Width SD 57.1 fl (35.1-43.9); White Blood Count 21.9 K/mm3 (4.4-11.0)
--- NOTE | 2019-01-16 15:20 | ED.RN ---
Pt denies pain and has generalized weakness and fatigue.
[2019-01-16 15:21] LABS: Differential Indicated SCAN CRITERIA MET
[2019-01-16 15:26] LABS: Anion Gap 7 (5-15); BUN 6 mg/dL (7-18); BUN/Creat Ratio 7.7 RATIO (10-20); Calcium,Total 8.4 mg/dL (8.5-10.1); Chloride 106 mmol/L (98-107); Creatinine, Serum 0.78 mg/dL (0.55-1.02); EST Glomerular Filtration Rate 83 mL/min (>60); Est Glom Filt Rate - Afr Amer 100 mL/min (>60); Estimated Creatinine Clearance 73.68 ml/min; Glucose 124 mg/dL (74-106); Potassium 3.7 mmol/L (3.5-5.1); Sodium Level 138 mmol/L (136-145)
[2019-01-16 15:32] LABS: Bacteria 0 SEEN /hpf (None Seen); Mucous, Urine 0 SEEN /hpf (<or=2+); Red Blood Cells-Urine 0 SEEN /hpf (0-5)
[2019-01-16] MEDS: 0.9% Normal Saline 1,000 ML 1000 ML IV ×2 (15:33→17:34)
[2019-01-16 15:35] LABS: Color, Urine Yellow (Yellow); Glucose, Dipstick Normal (Normal); Ketone-Dipstick Negative (Negative); Leukocyte Esterase-Dipstick 500 /ul (Negative); Nitrite-Dipstick Negative (Negative); Occult Blood-Urine 10 /ul (Negative); Protein-Dipstick Negative (Negative); Urine Bilirubin Dipstick Negative (Negative); Urine Clarity Cloudy (Clear); Urine Urobilinogen Normal (Normal)
[2019-01-16 15:36] LABS: Platelet Estimate MKD INC (ADEQ)
[2019-01-16 15:37] LABS: Anisocytosis 1+; Microcytosis 1+
[2019-01-16 15:41] LABS: Hyaline Cast 0-5 SEEN /lpf (0-5); Squamous Epithelial Cells - UA 0-5 SEEN /hpf (5-10)
[2019-01-16 15:42] LABS: White Blood Cells 5-10 SEEN /hpf (0-5)
[2019-01-16] MEDS: Ondansetron 4 MG/2 ML Vial IV (15:43)
[2019-01-16] MEDS: Morphine 4 MG/ML Syringe IV (15:56)
--- NOTE | 2019-01-16 15:56 | RAD_ITS ---
STUDY: X-RAY CHEST REASON FOR EXAM: Female, 53 years old. Cough and weakness TECHNIQUE: AP COMPARISON: 10/05/2014 FINDINGS: EKG leads project over the chest. The lungs are clear and expanded. There is no demonstrated pleural abnormality. Normal size heart. Normal mediastinum and rocco. Normal visualized pulmonary arteries. Normal visualized aortic arch and descending thoracic aorta. Normal visualized thoracic spine. There is degenerative osteoarthritis of the bilateral shoulders. There is no demonstrated abnormality of the visualized soft tissue structures of the upper abdomen. RAD/Chest 1 View (Portable) IMPRESSION: Stable, nonacute portable x-ray examination of the chest. Electronically Signed: Christopher Martin MD (Brooks) at 16:35 EDT , Service support ,
--- NOTE | 2019-01-16 16:35 | ED.DCSUM_ITS ---
History of Present Illness Informant: Patient Onset: Days - 5 Context: Gradual Onset Timing: Continuous Quality: Lightheadedness Location: head Current Severity: Severe Maximum Severity: Severe Worsened by: nothing Relieved by: nothing Associated Symptoms: Urinary frequency Narrative: 53-year-old female with the past medical history of thrombocythemia, interstitial cystitis, metabolic syndrome, partial nephrectomy presents to the emergency department with urinary frequency, fatigue and lightheadedness. She is on her last day of Bactrim today for urinary tract infection prescribed by her primary care physician. She is continuing to have symptoms. She continues to feel lightheaded fatigue and malaise and have urinary frequency and urgency. No hematuria or dysuria. No vomiting or diarrhea. No chest pain or shortness of breath. No abdominal pain or back pain. No cough or congestion. Prior similar symptoms: Yes Recent Illness/Hospitalization: No <Valerio Ortiz - Last Filed: 01/16/19 17:57> <Laci Card - Last Filed: 01/17/19 00:05> Chief Complaint: Chest Other Past Medical History Past Medical History: - - Acute gastritis, benign neoplasm of stomach, thrombocythemia, interstitial cystitis, metabolic syndrome, hypothyroidism, kidney stones Surgical History: cholecystectomy, - - Partial nephrectomy, bladder suspension, EGD, cystoscopy Lives: With Family Smoking Status: Never smoker <Valerio Ortiz - Last Filed: 01/16/19 17:57> - Family History Maternal Family History: Family History (Last Reviewed 05/31/18 @ 14:25 by Taylor Doan) Father Diabetes Heart disease Hypertension Family History: Reports: No pertinent history Paternal Family History: Family History (Last Reviewed 05/31/18 @ 14:25 by Taylor Doan) Father Diabetes Heart disease Hypertension Family History: Reports: Diabetes, Heart Disease, Hypertension <Laci Card - Last Filed: 01/17/19 00:05> - Allergies and Home Meds Allergies/Adverse Reactions: Allergies solifenacin succinate [From Vesicare] Allergy (Verified 01/16/19 14:51) Hives celecoxib [From Celebrex] Adverse Reaction (Verified 01/16/19 14:51) Nausea/Vom/Diarrhea diphenhydramine HCl [From Benadryl] Adverse Reaction (Verified 01/16/19 14:51) Other HYPERACTIVITY erythromycin base [Erythromycin Base] Adverse Reaction (Verified 01/16/19 14:51) Nausea/Vom/Diarrhea ketorolac tromethamine [From Toradol] Adverse Reaction (Verified 01/16/19 14:51) Hives lisinopril Adverse Reaction (Verified 01/16/19 18:29) Vomiting Review of Systems All systems negative except as indicated General: Reports: Malaise Genitourinary: Reports: Frequency Neurological: Reports: - - Lightheadedness <Valerio Ortiz - Last Filed: 01/16/19 17:57> Physical Exam Vital Signs/Narrative: Vital Signs Temp Pulse Resp BP Pulse Ox 01/16/19 16:13 98.3 F 94 12 142/74 H 97 01/16/19 14:52 98.5 F 92 20 H 164/79 H 97 Inital Vital Signs reviewed: Yes General: Well nourished, Well developed, Obese Head: Normocephalic, Atraumatic Eyes: Perrl, EOMI ENT: Moist mucous membranes Neck: Supple, Nontender Cardiovascular: Regular rate, Regular rhythm, No murmurs Respiratory: No distress, CTA bilaterally, Chest nontender Abdomen: Soft, Nontender, Nondistended, Normal bowel sounds, No masses Back: Nontender, Normal Inspection. Negative for: CVA tenderness Extremities: Nontender, No edema Skin: Normal color, No rash Neurological: Alert, Oriented x3 <Valerio Ortiz - Last Filed: 01/16/19 17:57> Diagnostic/Tx/Re-eval - Medical Decision Making On arrival vital signs are stable. Patient has no fever. She was given fluids. Laboratory work-up remarkable for an elevated white blood cell count of 21. We are now pursuing a sepsis work-up. Lactate was obtained as were blood cultures. Lactate is 2.1. She does still have a urinary tract infection. Vital signs remained stable. We will give Rocephin and admit for failure of outpatient therapy for urinary tract infection. <Valerio Ortiz - Last Filed: 01/16/19 17:57> - Medical Decision Making Patient has a recent urine infection. Continued symptoms. Vital signs were reassuring. Exam was unremarkable. White count was elevated. Urine shows possible infection. Cultures are pending. Lactate is elevated. Patient treated with fluids and IV antibiotics. Hospitalist contacted to admit for further care. <Stephie,Laci - Last Filed: 01/17/19 00:05> ED Disposition <Valerio Ortiz - Last Filed: 01/16/19 17:57> <Laci Card - Last Filed: 01/17/19 00:05> - Plan for ED Patient: Disposition: Acute [facility] Diagnosis: UTI (urinary tract infection), Failure of outpatient treatment
[2019-01-16 16:42] LABS: International Normalized Ratio 1.1; Partial Thromboplast Time 28.4 Seconds (24.1-36.2); Prothrombin Time (Protime)PT. 14.2 SECONDS (11.7-14.9)
[2019-01-16 17:09] LABS: Lactic Acid 2.1 mmol/L (0.4-2.0)
--- NOTE | 2019-01-16 17:22 | NURSING ---
DR ORTIZ FOR DR FLOWERS
--- NOTE | 2019-01-16 17:25 | HP.PCM_ITS ---
Problem List (1) DM type 2 (diabetes mellitus, type 2) Status: Chronic Qualifiers: Diabetes mellitus terminal operator insulin use: without shelter use Diabetes mellitus complication status: with other specified complication Qualified Code(s): E11.69 - Type 2 diabetes mellitus with other specified complication (2) Anxiety and depression Status: Chronic (3) UTI (urinary tract infection) Status: Acute Qualifiers: Urinary tract infection type: acute cystitis Hematuria presence: without hematuria Qualified Code(s): N30.00 - Acute cystitis without hematuria (4) Essential thrombocythemia Status: Chronic History of Present Illness Date of Admission: 01/16/19 Chief Complaint: Dysuria, lower abdominal pain - 5 days The patient is a 53 year old F with PMHx of essential thrombocythemia, anxiety/depression, prediabetes, on metformin who comes in with persistent dysuria, frequency and lower abdominal pain despite completing 5-day course of p.o. Bactrim. Patient had had a tooth extraction done 6 days ago. She had completed amoxicillin prior to that. She subsequently had dysuria, frequency of urination and lower abdominal pain 2 days later. She saw her primary care doctor and was started on p.o. Bactrim. She completed her antibiotics today and still has persistence of dysuria frequency and lower abdominal pain as well as feeling dizzy/faintness. She had a subjective fever and temperature was 90 9F, had associated chills, felt nauseous but no vomiting or diarrhea. Vitals in the ED showed patient 90 9.1F, heart rate 87, blood pressure 162/80, respiratory rate was 14, SPO2 was 92% on room air. WBC count was 21.9, hemoglobin 12.4, platelet count was 700, as 1.1, BMP is unremarkable, lactic acid is 2.1, UA shows cloudy urine, negative nitrate, positive leukocyte esterase, WBC count is 5-10. Chest x-ray shows no acute intrathoracic abnormality. Past Medical History Past Medical History (Chronic Problems): Chronic Problems (Last Updated 05/31/18 @ 14:25 by Taylor Doan) DM type 2 (diabetes mellitus, type 2) (Chronic) Anxiety and depression (Chronic) Essential thrombocythemia (Chronic) Medical History: Medical History (Last Updated 05/31/18 @ 14:25 by Taylor Doan) Back pain M54.9 Cancer C80.1 Essential thrombocythemia D47.3 Knee pain M25.569 Malignant tumor of kidney C64.9 Severe headache R51 Stomach ulcer K25.9 Thyroid disease E07.9 Bladder distention N32.89 Hypertension I10 Interstitial cystitis N30.10 Pre-diabetes R73.03 Allergies solifenacin succinate [From Vesicare] Allergy (Verified 01/16/19 14:51) Hives celecoxib [From Celebrex] Adverse Reaction (Verified 01/16/19 14:51) Nausea/Vom/Diarrhea diphenhydramine HCl [From Benadryl] Adverse Reaction (Verified 01/16/19 14:51) Other HYPERACTIVITY erythromycin base [Erythromycin Base] Adverse Reaction (Verified 01/16/19 14:51) Nausea/Vom/Diarrhea ketorolac tromethamine [From Toradol] Adverse Reaction (Verified 01/16/19 14:51) Hives Home Medications: Ambulatory Orders Medication Instructions Recorded Levothyroxine [Synthroid] 25 mcg PO DAILY 08/28/15 buPROPion SR [Wellbutrin Sr] 150 mg PO DAILY 08/28/15 busPIRone [Buspar] 5 mg PO DAILY 08/28/15 metFORMIN (XR) [Glucophage Xr] 500 mg PO BID 08/28/15 mirabegron ER 25 mg 50 mg PO DAILY 05/31/18 tablet,extended release 24 hr Surgical History: Surgical History (Last Reviewed 05/31/18 @ 14:25 by Taylor Doan) partial kidney removed left-10/15/2016 History of cholecystectomy Z98.890, Z90.49 Surgical History: cholecystectomy, - - Partial nephrectomy, bladder suspension, EGD, cystoscopy Psychiatric History: Anxiety, Depression 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 Denies: Chills, Fever, Weight Change Eyes: Denies: Blurred vision, Cataracts, Conjunctivae Inflammation, Pain, Redness, Vision Change HEENT: Denies: Difficulty Hearing, Difficulty Swallowing, Head Aches, Hearing Changes, Sinus Congestion, Sinus Drainage, Sore Throat Cardiovascular: Denies: Chest Pain, Claudication, Orthopnea, Palpitations, Paroxysmal Noc. Dyspnea Respiratory: Denies: Cough, Shortness of Breath, Shortness of breath at rest, Shortness of breath upon exertion, Sputum production Gastrointestinal: Denies: Abdominal Pain, Constipation, Hematemesis, Hematochezia, Nausea, Vomiting Genitourinary: Denies: Dysuria, Incontinence Musculoskeletal: Denies: Joint Pain, Joint stiffness, Joint swelling, Joint Tenderness Skin: Denies: Pruritis, Rash, Wounds Neurological: Denies: Difficulty swallowing, Focal weakness, Numbness, Tingling Psychiatric: Denies: Anxiety, Depression, Homicidal Ideations, Suicidal Ideations Hematologic/ Lymphatic: Denies: Easy Bruising, Easy Bleeding VTE Information - Inpt Only VTE Present on Admission: No VTE Pharm Prophylaxis ordered?: Yes Patient Problems: Active and Suspected Problems (Last Updated 05/31/18 @ 14:25 by Taylor Doan) Failure of outpatient treatment (Acute) UTI (urinary tract infection) (Acute) - Physical Exam General: Alert, Oriented x3, Cooperative, No apparent distress HEENT: Atraumatic, PERRLA, EOMI, Normocephalic Oral: Moist Mucosa Neck: Supple Lungs: Clear to auscultation, Normal air movement Cardiovascular: Regular rate, Regular Rhythm, Normal S1, Normal S2, No murmurs Abdomen: Bowel Sounds Present, Soft, No Hepato-splenomegaly, Obese, Tender - over the lower abdomen especially suprapubic region Extremities: No edema Skin: No rashes Musculoskeletal: No Tenderness to Palpation of Joints or Extremities Lymphatic: No Cervical, Supraclavicular, or Inguinal Adenopathy Neurological: Cranial nerves II-XII grossly intact, Neuro grossly intact Psych/Mental Status: Normal Affect, Appropriate Vital Signs Temp Pulse Resp BP Pulse Ox 98.3 F 95 12 156/81 H 97 01/16/19 16:13 01/16/19 16:13 01/16/19 16:13 01/16/19 16:13 01/16/19 16:13 Oxygen Delivery Method Room Air Weight: 119.295 kg Body Mass Index (BMI) 45.1 Laboratory Tests Past 24 Hrs 01/16/19 01/16/19 01/16/19 15:10 15:10 15:28 WBC 21.9 H RBC 5.90 H Hgb 12.4 Hct 43.2 MCV 73.2 L MCH 21.0 L MCHC 28.7 L RDW Std Deviation 57.1 H RDW Coeff of Farhan 23.0 H Plt Count 700 H MPV 8.9 Immature Gran % (Auto) 0.600 Neut % (Auto) 80.9 H Lymph % (Auto) 11.5 L Divide % (Auto) 3.5 Eos % (Auto) 2.3 Baso % (Auto) 1.2 H Absolute Neuts (auto) 17.7 H Absolute Lymphs (auto) 2.51 Nucleated RBC % 0 Platelet Estimate MKD INC Anisocytosis 1+ Microcytosis 1+ PT INR APTT Sodium 138 Potassium 3.7 Chloride 106 Carbon Dioxide 25.0 Anion Gap 7 BUN 6 L Creatinine 0.78 Estim Creat Clear Calc 73.68 Est GFR (MDRD) Af Amer 100 Est GFR (MDRD) Non-Af 83 BUN/Creatinine Ratio 7.7 L Glucose 124 H Lactic Acid Calcium 8.4 L Urine Color Yellow Urine Clarity Cloudy Urine pH 5.0 Ur Specific Mcewen 1.020 Urine Protein Negative Urine Glucose (UA) Normal Urine Ketones Negative Urine Occult Blood 10 H Urine Nitrite Negative Urine Bilirubin Negative Urine Urobilinogen Normal Ur Leukocyte Esterase 500 H Urine RBC 0 SEEN Urine WBC 5-10 SEEN Ur Squamous Epith Cells 0-5 SEEN Urine Bacteria 0 SEEN Hyaline Casts 0-5 SEEN Urine Mucus 0 SEEN 01/16/19 01/16/19 16:15 16:15 WBC RBC Hgb Hct MCV MCH MCHC RDW Std Deviation RDW Coeff of Farhan Plt Count MPV Immature Gran % (Auto) Neut % (Auto) Lymph % (Auto) Divide % (Auto) Eos % (Auto) Baso % (Auto) Absolute Neuts (auto) Absolute Lymphs (auto) Nucleated RBC % Platelet Estimate Anisocytosis Microcytosis PT 14.2 INR 1.1 APTT 28.4 Sodium Potassium Chloride Carbon Dioxide Anion Gap BUN Creatinine Estim Creat Clear Calc Est GFR (MDRD) Af Amer Est GFR (MDRD) Non-Af BUN/Creatinine Ratio Glucose Lactic Acid 2.1 H Calcium Urine Color Urine Clarity Urine pH Ur Specific Mcewen Urine Protein Urine Glucose (UA) Urine Ketones Urine Occult Blood Urine Nitrite Urine Bilirubin Urine Urobilinogen Ur Leukocyte Esterase Urine RBC Urine WBC Ur Squamous Epith Cells Urine Bacteria Hyaline Casts Urine Mucus Assessment/Plan All Active Problems (Last Updated 05/31/18 @ 14:25 by Taylor Doan) Failure of outpatient treatment (Acute) UTI (urinary tract infection) (Acute) 53 year old F with PMHx of essential thrombocythemia, anxiety/depression, prediabetes, on metformin who comes in with persistent dysuria, frequency and lower abdominal pain despite completing 5-day course of p.o. Bactrim. 1. Severe sepsis secondary to Acute UTI, (WBC 21.9, HR >90, Lactic acid 2.1) History of interstitial cystitis, failed outpatient, started on IV ceftriaxone Blood and urine cultures are pending. Patient is clinically very stable Plan: Admit to [facility], IVF, IV ceftriaxone, will continue monitor vitals 2. Anxiety/depression, on Buspar, Wellbutrin 3. Prediabetes mellitus, on metformin; will hold metformin for now Will continue with blood glucose and ISS 4. Essential thrombocythemia, on aspirin 5. DVT PPx- Heparin SC Code Visit Inpatient E&M: 08391 Init Hosp L3
--- NOTE | 2019-01-16 17:30 | NURSING ---
MED SURG SEVERE SEPSIS, UTI PAINTSIL
[2019-01-16] MEDS: Ceftriaxone 1 GM/50 ML BAG IV (17:50)
--- NOTE | 2019-01-16 18:47 | US_ITS ---
STUDY: RENAL ULTRASOUND - COMPLETE REASON FOR EXAM: Female, 53 years old. Abnormal laboratory values, UTI, history of left partial nephrectomy 2 years ago TECHNIQUE: Ultrasound evaluation of the kidneys was performed with real-time and static luis-scale imaging. COMPARISON: None. FINDINGS: RIGHT KIDNEY: Normal location of the right kidney, which is normal in size. The right kidney measures 13.4 x 5.9 x 6.4 cm. There is a normal cortex of the right kidney. The renal cortex measures 2.4 cm. There is no right renal mass or cyst. There are no right renal calculi. There is no right hydronephrosis. DISTAL RIGHT URETER: There is non-visualization of the distal right ureter. There is no demonstrated right ureterovesical junction calculus. There is a visualized right ureteral jet. LEFT KIDNEY: Normal location of the left kidney, which is normal in size. The left kidney measures 11.6 x 5.3 x 5.4 cm. There is diffuse thinning of the renal cortex. The renal cortex measures 2.2 cm. There is no left renal mass or cyst. There are no left renal calculi. There is no left hydronephrosis. DISTAL LEFT URETER: There is non-visualization of the distal left ureter. There is no demonstrated left ureterovesical junction calculus. There is a visualized left ureteral jet. The spleen is mildly enlarged measuring 14.8 x 6.4 x 5.6 cm. BLADDER: The distended urinary bladder has a volume of 176 ml. There is a diffusely thickened wall of the distended bladder. There is no demonstrated mass within the urinary bladder. There are no demonstrated bladder calculi. US/Kidney and Bladder IMPRESSION: 1. No hydronephrosis. 2. Mild diffuse thickening of the urinary bladder compatible with history provided of urinary tract infection. 3. Mild splenomegaly measuring up to 14.8 cm. Electronically Signed: Christopher Martin MD (Brooks) at 8:39 EDT , Service support ,
[2019-01-16] MEDS: 0.9% Normal Saline 1,000 ML 125 ML IV (18:56)
[2019-01-16] MEDS: Acetaminophen 325 MG Tablet 650 MG PO (19:13)
[2019-01-16 20:29] LABS: Reflex Lactate? Y
[2019-01-16 21:26] LABS: Lactic Acid 1.8 mmol/L (0.4-2.0)
[2019-01-16] MEDS: Heparin Injection (Vial) 5,000 UNIT/ML VIAL 5000 UNIT SC (22:34)
[2019-01-16 22:56] LABS: Bedside Glucose 123 mg/dL (70-110)
[2019-01-17] VITALS (7 sets, daily range): BP systolic 117–147; BP diastolic 51–71; PULSE 73–96; RESP 16–18; TEMP 36.6–37; O2SAT 95–97
[2019-01-17] MEDS: 0.9% Normal Saline 1,000 ML 125 ML IV (02:56)
[2019-01-17] MEDS: Heparin Injection (Vial) 5,000 UNIT/ML VIAL 5000 UNIT SC (05:57)
[2019-01-17] MEDS: Levothyroxine 25 MCG TABLET PO (05:58)
[2019-01-17] MEDS: Acetaminophen 325 MG Tablet 650 MG PO (06:03)
[2019-01-17 06:25] LABS: Bedside Glucose 102 mg/dL (70-110)
[2019-01-17 06:38] LABS: Absolute Lymphocyte Count 2.66 X10^3/uL (0.83-4.51); Basophil# 0.23 X10^3/uL; Basophil% 1.2 % (0-1); Eosinophil# 0.55 X10^3/uL; Eosinophils% 2.9 % (0-5); Hematocrit 41.4 % (37-47); Hemoglobin 11.4 g/dL (12.0-15.0); Lymphocyte # 2.66 X10^3/ul (4.0); Lymphocyte % 13.8 % (19-41); Mean Corp Hgb Conc 27.5 g/dL (32-36); Mean Corpuscular Hgb 20.7 pg (27.0-32.0); Mean Platelet Vol. 9.1 fl (6.2-12.0); Monocyte# 0.68 X10^3/uL; Monocyte% 3.5 % (0-10); NRBC Flagged by Analyzer 0 % (0-5); Neutrophil # 14.99 X10^3/uL (2.7-7.7); POSITIVE MORPHOLOGY YES; Platelet Count 639 K/mm3 (150-450); RBC Distribution Width CV 23.1 % (11.6-14.6); RBC Distribution Width SD 59.3 fl (35.1-43.9); Red Blood Count 5.52 M/mm3 (4.2-5.4); White Blood Count 19.2 K/mm3 (4.4-11.0)
[2019-01-17 06:48] LABS: Differential Indicated SCAN CRITERIA MET
[2019-01-17 07:07] LABS: Anisocytosis 2+; Differential Comment SCANNED; Microcytosis 2+
[2019-01-17 07:08] LABS: ALB/GLOB Ratio 0.8 RATIO (0.9-2.4); AST(SGOT) 25 U/L (15-37); Alanine Aminotransfer ALT/SGPT 24 U/L (13-56); Alkaline Phosphatase 120 U/L (45-117); Anion Gap 6 (5-15); BUN 5 mg/dL (7-18); BUN/Creat Ratio 7.2 RATIO (10-20); Calcium,Total 7.8 mg/dL (8.5-10.1); Chloride 110 mmol/L (98-107); Creatinine, Serum 0.69 mg/dL (0.55-1.02); EST Glomerular Filtration Rate 95 mL/min (>60); Est Glom Filt Rate - Afr Amer 115 mL/min (>60); Estimated Creatinine Clearance 83.29 ml/min; Globulin 3.8 g/dL (2.2-4.2); Glucose 87 mg/dL (74-106); Potassium 3.6 mmol/L (3.5-5.1); Protein, Total 6.8 g/dL (6.4-8.2); Sodium Level 142 mmol/L (136-145)
--- NOTE | 2019-01-17 08:29 | PCM.PN.HOSP ---
Patient Problems: Active and Suspected Problems (Last Updated 05/31/18 @ 14:25 by Taylor Doan) Failure of outpatient treatment (Acute) UTI (urinary tract infection) (Acute) Vitals/I&O's: Vital Signs Temp Pulse Resp BP Pulse Ox 98.0 F 87 16 142/68 H 95 01/17/19 06:10 01/17/19 06:10 01/17/19 06:10 01/17/19 06:10 01/17/19 06:10 Oxygen Delivery Method Room Air Weight: 266 lb 5.094 oz Body Mass Index (BMI) 45.7 Intake and Output for Last 24 Hours 01/15/19 01/16/19 01/17/19 23:59 23:59 23:59 Intake Total 2670.83 / 3670.83 2972.92 / 2972.92 Output Total 1200 / 1200 Balance 2670.83 / 3220.83 1772.92 / 1772.92 Laboratory Results 01/16/19 15:10: WBC 21.9 H, RBC 5.90 H, Hgb 12.4, Hct 43.2, MCV 73.2 L, MCH 21.0 L, MCHC 28.7 L, RDW Std Deviation 57.1 H, RDW Coeff of Farhan 23.0 H, Plt Count 700 H, MPV 8.9, Immature Gran % (Auto) 0.600, Neut % (Auto) 80.9 H, Lymph % (Auto) 11.5 L, [place] % (Auto) 3.5, Eos % (Auto) 2.3, Baso % (Auto) 1.2 H, Absolute Neuts (auto) 17.7 H, Absolute Lymphs (auto) 2.51, Nucleated RBC % 0, Platelet Estimate MKD INC, Anisocytosis 1+, Microcytosis 1+ 01/16/19 15:10: Sodium 138, Potassium 3.7, Chloride 106, Carbon Dioxide 25.0, Anion Gap 7, BUN 6 L, Creatinine 0.78, Estim Creat Clear Calc 73.68, Est GFR (MDRD) Af Amer 100, Est GFR (MDRD) Non-Af 83, BUN/Creatinine Ratio 7.7 L, Glucose 124 H, Calcium 8.4 L 01/16/19 15:28: Urine Color Yellow, Urine Clarity Cloudy, Urine pH 5.0, Ur Specific [place] 1.020, Urine Protein Negative, Urine Glucose (UA) Normal, Urine Ketones Negative, Urine Occult Blood 10 H, Urine Nitrite Negative, Urine Bilirubin Negative, Urine Urobilinogen Normal, Ur Leukocyte Esterase 500 H, Urine RBC 0 SEEN, Urine WBC 5-10 SEEN, Ur Squamous Epith Cells 0-5 SEEN, Urine Bacteria 0 SEEN, Hyaline Casts 0-5 SEEN, Urine Mucus 0 SEEN 01/16/19 16:15: PT 14.2, INR 1.1, APTT 28.4 01/16/19 16:15: Lactic Acid 2.1 H 01/16/19 20:45: Lactic Acid 1.8 01/16/19 22:32: POC Glucose 123 H 01/17/19 05:52: WBC 19.2 H, RBC 5.52 H, Hgb 11.4 L, Hct 41.4, MCV 75.0 L, MCH 20.7 L, MCHC 27.5 L, RDW Std Deviation 59.3 H, RDW Coeff of Farhan 23.1 H, Plt Count 639 H, MPV 9.1, Immature Gran % (Auto) 0.600, Neut % (Auto) 78.0 H, Lymph % (Auto) 13.8 L, [place] % (Auto) 3.5, Eos % (Auto) 2.9, Baso % (Auto) 1.2 H, Absolute Neuts (auto) 15.0 H, Absolute Lymphs (auto) 2.66, Nucleated RBC % 0, Differential Comment SCANNED, Anisocytosis 2+, Microcytosis 2+ 01/17/19 05:52: Sodium 142, Potassium 3.6, Chloride 110 H, Carbon Dioxide 26.0, Anion Gap 6, BUN 5 L, Creatinine 0.69, Estim Creat Clear Calc 83.29, Est GFR (MDRD) Af Amer 115, Est GFR (MDRD) Non-Af 95, BUN/Creatinine Ratio 7.2 L, Glucose 87, Calcium 7.8 L, Total Bilirubin 0.30, AST 25, ALT 24, Alkaline Phosphatase 120 H, Total Protein 6.8, Albumin 3.0 L, Globulin 3.8, Albumin/Globulin Ratio 0.8 L 01/17/19 06:08: POC Glucose 102 Current Medications Acetaminophen (Tylenol) 650 mg PO Q6H PRN PRN PRN Reason: Mild Pain (1-3)/Temp > 100.7 F Last Admin: 01/17/19 06:03 Dose: 650 mg Documented by: Al Hydroxide/Mg Hydroxide (Mylanta Ii) 30 ml PO Q6H PRN PRN PRN Reason: Gastric Burning Aspirin (Aspirin, Baby) 81 mg PO DAILY@0800 [facility] Bupropion HCl (Wellbutrin Sr (150mg Tablets)) 150 mg PO DAILY [facility] Buspirone HCl (Buspar) 5 mg PO DAILY [facility] Dextrose (D50w Syringe) 0 gm IV X1 PRN; Protocol PRN Reason: Hypoglycemia Glucagon () 1 mg IM .X1 PRN PRN Reason: Hypoglycemia Heparin Sodium (Porcine) (Heparin Na) 5,000 unit SC Q8 [facility] Last Admin: 01/17/19 05:57 Dose: 5,000 unit Documented by: Sodium Chloride () 1,000 mls @ 125 mls/hr IV .Q8H [facility] Stop: 01/17/19 10:46 Last Infusion: 01/17/19 07:41 Dose: 0 mls/hr Documented by: Ceftriaxone Sodium (Rocephin) 1 gm in 50 mls @ 100 mls/hr IV Q24 [facility] Insulin Human Lispro (Humalog Kwikpen (Bkc)) 0 unit SC ACHS [facility]; Protocol Last Admin: 01/17/19 06:11 Dose: Not Given Documented by: Levothyroxine Sodium (Synthroid) 25 mcg PO DAILY@0600 [facility] Last Admin: 01/17/19 05:58 Dose: 25 mcg Documented by: Mirabegron (Myrbetriq) 50 mg PO DAILY [facility] Ondansetron HCl (Zofran) 4 mg IV Q8H PRN PRN PRN Reason: NAUSEA/VOMITING Medical Necessity - Tobacco Use Smoking Status: Never smoker Assessment/Plan All Active Problems (Last Updated 05/31/18 @ 14:25 by Taylor Doan) Failure of outpatient treatment (Acute) UTI (urinary tract infection) (Acute) This is a 53 year old F with PMHx of essential thrombocythemia, anxiety/depression, prediabetes, on metformin who is admitted with persistent dysuria, frequency and lower abdominal pain despite completing 5-day course of p.o. Bactrim. 1. Severe sepsis secondary to Acute UTI, (WBC 21.9, HR >90, Lactic acid 2.1) History of interstitial cystitis, failed outpatient, started on IV ceftriaxone Blood and urine cultures are pending. Patient is clinically very stable Plan: Admit to [facility], IVF, IV ceftriaxone, will continue monitor vitals 2. Anxiety/depression, on Buspar, Wellbutrin 3. Prediabetes mellitus, on metformin; will hold metformin for now Will continue with blood glucose and ISS 4. Essential thrombocythemia, on aspirin 5. DVT PPx- Heparin SC Laboratory Results 01/16/19 15:10: WBC 21.9 H, RBC 5.90 H, Hgb 12.4, Hct 43.2, MCV 73.2 L, MCH 21.0 L, MCHC 28.7 L, RDW Std Deviation 57.1 H, RDW Coeff of Farhan 23.0 H, Plt Count 700 H, MPV 8.9, Immature Gran % (Auto) 0.600, Neut % (Auto) 80.9 H, Lymph % (Auto) 11.5 L, [place] % (Auto) 3.5, Eos % (Auto) 2.3, Baso % (Auto) 1.2 H, Absolute Neuts (auto) 17.7 H, Absolute Lymphs (auto) 2.51, Nucleated RBC % 0, Platelet Estimate MKD INC, Anisocytosis 1+, Microcytosis 1+ 01/16/19 15:10: Sodium 138, Potassium 3.7, Chloride 106, Carbon Dioxide 25.0, Anion Gap 7, BUN 6 L, Creatinine 0.78, Estim Creat Clear Calc 73.68, Est GFR (MDRD) Af Amer 100, Est GFR (MDRD) Non-Af 83, BUN/Creatinine Ratio 7.7 L, Glucose 124 H, Calcium 8.4 L 01/16/19 15:28: Urine Color Yellow, Urine Clarity Cloudy, Urine pH 5.0, Ur Specific [place] 1.020, Urine Protein Negative, Urine Glucose (UA) Normal, Urine Ketones Negative, Urine Occult Blood 10 H, Urine Nitrite Negative, Urine Bilirubin Negative, Urine Urobilinogen Normal, Ur Leukocyte Esterase 500 H, Urine RBC 0 SEEN, Urine WBC 5-10 SEEN, Ur Squamous Epith Cells 0-5 SEEN, Urine Bacteria 0 SEEN, Hyaline Casts 0-5 SEEN, Urine Mucus 0 SEEN 01/16/19 16:15: PT 14.2, INR 1.1, APTT 28.4 01/16/19 16:15: Lactic Acid 2.1 H 01/16/19 20:45: Lactic Acid 1.8 01/16/19 22:32: POC Glucose 123 H 01/17/19 05:52: WBC 19.2 H, RBC 5.52 H, Hgb 11.4 L, Hct 41.4, MCV 75.0 L, MCH 20.7 L, MCHC 27.5 L, RDW Std Deviation 59.3 H, RDW Coeff of Farhan 23.1 H, Plt Count 639 H, MPV 9.1, Immature Gran % (Auto) 0.600, Neut % (Auto) 78.0 H, Lymph % (Auto) 13.8 L, [place] % (Auto) 3.5, Eos % (Auto) 2.9, Baso % (Auto) 1.2 H, Absolute Neuts (auto) 15.0 H, Absolute Lymphs (auto) 2.66, Nucleated RBC % 0, Differential Comment SCANNED, Anisocytosis 2+, Microcytosis 2+ 01/17/19 05:52: Sodium 142, Potassium 3.6, Chloride 110 H, Carbon Dioxide 26.0, Anion Gap 6, BUN 5 L, Creatinine 0.69, Estim Creat Clear Calc 83.29, Est GFR (MDRD) Af Amer 115, Est GFR (MDRD) Non-Af 95, BUN/Creatinine Ratio 7.2 L, Glucose 87, Calcium 7.8 L, Total Bilirubin 0.30, AST 25, ALT 24, Alkaline Phosphatase 120 H, Total Protein 6.8, Albumin 3.0 L, Globulin 3.8, Albumin/Globulin Ratio 0.8 L 01/17/19 06:08: POC Glucose 102
[2019-01-17] MEDS: Aspirin 81 MG TAB.CHEW PO (09:00)
[2019-01-17] MEDS: busPIRone 5 MG Tablet PO (09:04)
[2019-01-17] MEDS: buPROPion (SR) 150 MG Tablet.SA PO (09:04)
[2019-01-17] MEDS: Mirabegron 50 MG TAB.ER.24H PO (09:04)
[2019-01-17] MEDS: Ceftriaxone 1 GM/50 ML BAG IV (09:09)
--- NOTE | 2019-01-17 10:37 | DS.PCM_ITS ---
Discharge Date and Diagnosis - Problem List Patient Problems: Active and Suspected Problems (Last Updated 05/31/18 @ 14:25 by Taylor Doan) Failure of outpatient treatment (Acute) UTI (urinary tract infection) (Acute) Date of Admission: 01/16/19 Date of Discharge: 01/17/19 - Primary Discharge Diagnosis Active and Suspected Problems (Last Updated 05/31/18 @ 14:25 by Taylor Doan) Failure of outpatient treatment (Acute) UTI (urinary tract infection) (Acute) - Secondary Discharge Diagnosis Chronic Problems (Last Updated 05/31/18 @ 14:25 by Taylor Doan) DM type 2 (diabetes mellitus, type 2) (Chronic) Anxiety and depression (Chronic) Essential thrombocythemia (Chronic) Hospital Course and Treatment Summary of Care Provided: [] This is a 53 year old F with PMHx of essential thrombocythemia, anxiety/depression, prediabetes, on metformin who is admitted with persistent dysuria, frequency and lower abdominal pain despite completing 5-day course of p.o. Bactrim as outpatient. 1. Severe sepsis secondary to Acute UTI, (WBC 21.9, HR >90, Lactic acid 2.1) with history of interstitial cystitis and recurrent UTI suggestive of complicated UTI. Patient started on IV ceftriaxone and received 2 doses of IV antibiotics. Patient was advised to stay for the one day for full culture and sensitivity. Preliminary urine culture growing gram-negative nevaeh lactose rf manager, 2 organisms. Blood cultures negative so far. Based on the previous urine culture of 2015, 11/06/2015 showed presumptive E. coli and was pansensitive. Microbiology lab was called. This time it seems urine culture is growing probably E. coli and Enterobacter as per the microbiology lab but it is preliminary. Patient refused to stay therefore sent home empirically on Cipro 500 mg twice daily for 5 more days. We will follow-up urine culture and she understands antibiotic might get change based on the sensitivity report. No tachycardia or fever since admission. 2. Anxiety/depression, on Buspar, Wellbutrin 3. Prediabetes mellitus, on metformin; will hold metformin for now Blood sugars are controlled. 4. Essential thrombocythemia, on aspirin. Patient follows rn plastic surgery Dr. Pineda advised to further follow-up for elevated WBC count and platelet count which seems chronic, since 2013. 5. DVT PPx- Heparin SC Discharge medication reconciliation done. Discharge follow-up instructions completed. Discharge process discussed with the patient and all questions were answered to patient's satisfaction. Total time spent, exact 35 minutes on discharge meds reconciliation, examination, review of imaging and blood test and discussion with the patient on follow-up instructions. Laboratory Results 01/17/19 05:52: WBC 19.2 H, RBC 5.52 H, Hgb 11.4 L, Hct 41.4, MCV 75.0 L, MCH 20.7 L, MCHC 27.5 L, RDW Std Deviation 59.3 H, RDW Coeff of Farhan 23.1 H, Plt Count 639 H, MPV 9.1, Immature Gran % (Auto) 0.600, Neut % (Auto) 78.0 H, Lymph % (Auto) 13.8 L, [place] % (Auto) 3.5, Eos % (Auto) 2.9, Baso % (Auto) 1.2 H, Absolute Neuts (auto) 15.0 H, Absolute Lymphs (auto) 2.66, Nucleated RBC % 0, Differential Comment SCANNED, Anisocytosis 2+, Microcytosis 2+ 01/17/19 05:52: Sodium 142, Potassium 3.6, Chloride 110 H, Carbon Dioxide 26.0, Anion Gap 6, BUN 5 L, Creatinine 0.69, Estim Creat Clear Calc 83.29, Est GFR (MDRD) Af Amer 115, Est GFR (MDRD) Non-Af 95, BUN/Creatinine Ratio 7.2 L, Glucose 87, Calcium 7.8 L, Total Bilirubin 0.30, AST 25, ALT 24, Alkaline Phosphatase 120 H, Total Protein 6.8, Albumin 3.0 L, Globulin 3.8, Albumin/Globulin Ratio 0.8 L 01/17/19 06:08: POC Glucose 102 Patient Problems: Active and Suspected Problems (Last Updated 05/31/18 @ 14:25 by Taylor Doan) Failure of outpatient treatment (Acute) UTI (urinary tract infection) (Acute) Subjective: Patient did not had fever or chills since admission. No tachycardia. The patient has history of interstitial cystitis and follows urologist. Last week she was treated with Bactrim for UTI for PCP. Currently, she denies burning micturition but complains of mild suprapubic heaviness. She wants to go home and does not want to stay for 1 more day. - Physical Exam General: Alert, Oriented x3, Cooperative HEENT: Atraumatic, PERRLA, EOMI, Normocephalic Neck: Supple, No JVD, Negative Carotid Bruits Lungs: Clear to auscultation, Normal air movement, No rhonchi, No wheeze, No rales Cardiovascular: Regular rate, Regular Rhythm, Normal S1, Normal S2, No murmurs Abdomen: Bowel Sounds Present, Soft, Non Tender, Non-Distended Extremities: No edema, Capillary Refill Less than 3 Seconds Skin: No rashes, No breakdown Musculoskeletal: No Tenderness to Palpation of Joints or Extremities, Arthritic Changes Neurological: Cranial nerves II-XII grossly intact, Deep Tendon Reflexes 2+/4 and Symmetrical, Neuro grossly intact Psych/Mental Status: Normal Affect, Appropriate Vital Signs Temp Pulse Resp BP Pulse Ox 98.0 F 87 16 142/68 H 95 01/17/19 06:10 01/17/19 06:10 01/17/19 06:10 01/17/19 06:10 01/17/19 06:10 Oxygen Delivery Method Room Air Weight: 266 lb 5.094 oz Body Mass Index (BMI) 45.7 Intake and Output for Last 24 Hours 01/15/19 01/16/19 01/17/19 23:59 23:59 23:59 Intake Total 2670.83 / 3670.83 2987.50 / 2987.50 Output Total 1200 / 1200 Balance 2670.83 / 3220.83 1787.50 / 1787.50 Laboratory Tests Past 24 Hrs 01/16/19 01/16/19 01/16/19 15:10 15:10 15:28 WBC 21.9 H RBC 5.90 H Hgb 12.4 Hct 43.2 MCV 73.2 L MCH 21.0 L MCHC 28.7 L RDW Std Deviation 57.1 H RDW Coeff of Farhan 23.0 H Plt Count 700 H MPV 8.9 Immature Gran % (Auto) 0.600 Neut % (Auto) 80.9 H Lymph % (Auto) 11.5 L [place] % (Auto) 3.5 Eos % (Auto) 2.3 Baso % (Auto) 1.2 H Absolute Neuts (auto) 17.7 H Absolute Lymphs (auto) 2.51 Nucleated RBC % 0 Differential Comment Platelet Estimate MKD INC Anisocytosis 1+ Microcytosis 1+ PT INR APTT Sodium 138 Potassium 3.7 Chloride 106 Carbon Dioxide 25.0 Anion Gap 7 BUN 6 L Creatinine 0.78 Estim Creat Clear Calc 73.68 Est GFR (MDRD) Af Amer 100 Est GFR (MDRD) Non-Af 83 BUN/Creatinine Ratio 7.7 L Glucose 124 H Lactic Acid Calcium 8.4 L Total Bilirubin AST ALT Alkaline Phosphatase Total Protein Albumin Globulin Albumin/Globulin Ratio Urine Color Yellow Urine Clarity Cloudy Urine pH 5.0 Ur Specific [place] 1.020 Urine Protein Negative Urine Glucose (UA) Normal Urine Ketones Negative Urine Occult Blood 10 H Urine Nitrite Negative Urine Bilirubin Negative Urine Urobilinogen Normal Ur Leukocyte Esterase 500 H Urine RBC 0 SEEN Urine WBC 5-10 SEEN Ur Squamous Epith Cells 0-5 SEEN Urine Bacteria 0 SEEN Hyaline Casts 0-5 SEEN Urine Mucus 0 SEEN 01/16/19 01/16/19 01/16/19 16:15 16:15 20:45 WBC RBC Hgb Hct MCV MCH MCHC RDW Std Deviation RDW Coeff of Farhan Plt Count MPV Immature Gran % (Auto) Neut % (Auto) Lymph % (Auto) [place] % (Auto) Eos % (Auto) Baso % (Auto) Absolute Neuts (auto) Absolute Lymphs (auto) Nucleated RBC % Differential Comment Platelet Estimate Anisocytosis Microcytosis PT 14.2 INR 1.1 APTT 28.4 Sodium Potassium Chloride Carbon Dioxide Anion Gap BUN Creatinine Estim Creat Clear Calc Est GFR (MDRD) Af Amer Est GFR (MDRD) Non-Af BUN/Creatinine Ratio Glucose Lactic Acid 2.1 H 1.8 Calcium Total Bilirubin AST ALT Alkaline Phosphatase Total Protein Albumin Globulin Albumin/Globulin Ratio Urine Color Urine Clarity Urine pH Ur Specific [place] Urine Protein Urine Glucose (UA) Urine Ketones Urine Occult Blood Urine Nitrite Urine Bilirubin Urine Urobilinogen Ur Leukocyte Esterase Urine RBC Urine WBC Ur Squamous Epith Cells Urine Bacteria Hyaline Casts Urine Mucus 01/17/19 01/17/19 05:52 05:52 WBC 19.2 H RBC 5.52 H Hgb 11.4 L Hct 41.4 MCV 75.0 L MCH 20.7 L MCHC 27.5 L RDW Std Deviation 59.3 H RDW Coeff of Farhan 23.1 H Plt Count 639 H MPV 9.1 Immature Gran % (Auto) 0.600 Neut % (Auto) 78.0 H Lymph % (Auto) 13.8 L [place] % (Auto) 3.5 Eos % (Auto) 2.9 Baso % (Auto) 1.2 H Absolute Neuts (auto) 15.0 H Absolute Lymphs (auto) 2.66 Nucleated RBC % 0 Differential Comment SCANNED Platelet Estimate Anisocytosis 2+ Microcytosis 2+ PT INR APTT Sodium 142 Potassium 3.6 Chloride 110 H Carbon Dioxide 26.0 Anion Gap 6 BUN 5 L Creatinine 0.69 Estim Creat Clear Calc 83.29 Est GFR (MDRD) Af Amer 115 Est GFR (MDRD) Non-Af 95 BUN/Creatinine Ratio 7.2 L Glucose 87 Lactic Acid Calcium 7.8 L Total Bilirubin 0.30 AST 25 ALT 24 Alkaline Phosphatase 120 H Total Protein 6.8 Albumin 3.0 L Globulin 3.8 Albumin/Globulin Ratio 0.8 L Urine Color Urine Clarity Urine pH Ur Specific [place] Urine Protein Urine Glucose (UA) Urine Ketones Urine Occult Blood Urine Nitrite Urine Bilirubin Urine Urobilinogen Ur Leukocyte Esterase Urine RBC Urine WBC Ur Squamous Epith Cells Urine Bacteria Hyaline Casts Urine Mucus POC Glucose 01/17/19 01/16/19 06:08 22:32 POC Glucose 102 123 H Home Medications: Medications to take at Discharge Levothyroxine [Synthroid] 25 mcg PO DAILY 08/28/15 buPROPion SR [Wellbutrin SR (150mg tablets)] 150 mg PO 1400 08/28/15 busPIRone [Buspar] 5 mg PO BID 08/28/15 metFORMIN (XR) [Glucophage Xr] 500 mg PO BID 08/28/15 mirabegron ER 25 mg tablet,extended release 24 hr 50 mg PO 1400 05/31/18 Aspirin 81 mg PO DAILY 01/16/19 D-Mannose 500 gm PO DAILY 01/16/19 L.acidoph,Paracasei, B.lactis [Probiotic] 1 ea PO DAILY 01/16/19 Aspirin [Aspirin, Baby] 81 mg PO DAILY@0800 #30 tab.chew 01/17/19 Ciprofloxacin [Cipro] 500 mg PO BID #10 tab 01/17/19 Following Prescrptions Were Given to Patient: Aspirin [Aspirin, Baby] 81 mg PO DAILY@0800 #30 tab.chew Transmission Status: Pending to [facility] Cefadroxil [Duricef] 500 mg PO BID #12 cap Transmission Status: Pending to [facility] Primary Care Physician: Tyron Orellana III, MD [Primary Care Provider] - Medical Necessity - Tobacco Use Smoking Status: Never smoker Meaningful Use Info Meaningful Use Diagnoses (Choose all that apply): None applicable Code Visit Inpatient E&M: 29337 Disch Hosp
--- NOTE | 2019-01-17 11:38 | DCINST_ITS ---
- Discharge Diagnoses Current Active Problems: Current Active and Chronic Problems (Last Updated 05/31/18 @ 14:25 by Taylor Doan) DM type 2 (diabetes mellitus, type 2) (Chronic) Anxiety and depression (Chronic) Failure of outpatient treatment (Acute) Essential thrombocythemia (Chronic) UTI (urinary tract infection) (Acute) You will use the following diet at home:: Calorie/Carbohydrate Controlled (specify 1200, 1400, etc) - 1600 S[place]ath Your food should be the consistency of: Regular Discharge Activity: May Not Drive - for 5 days Call your doctor if you observe: Fever of 101 or Higher, Numbness or Tingling, Inability to urinate, Shortness of breath, Fainting spells, Swelling in the ankles, Chest pain, Increased palpitations (irregular heartbeat) Additional Instructions: Follow up Urologist in 2 weeks for H/o intestitial cystitis and recurrent UTI Allergies/Adverse Reactions: Allergies solifenacin succinate [From Vesicare] Allergy (Verified 01/16/19 14:51) Hives celecoxib [From Celebrex] Adverse Reaction (Verified 01/16/19 14:51) Nausea/Vom/Diarrhea diphenhydramine HCl [From Benadryl] Adverse Reaction (Verified 01/16/19 14:51) Other HYPERACTIVITY erythromycin base [Erythromycin Base] Adverse Reaction (Verified 01/16/19 14:51) Nausea/Vom/Diarrhea ketorolac tromethamine [From Toradol] Adverse Reaction (Verified 01/16/19 14:51) Hives lisinopril Adverse Reaction (Verified 01/16/19 18:29) Vomiting Medications to take at Discharge Levothyroxine [Synthroid] 25 mcg PO DAILY 08/28/15 buPROPion SR [Wellbutrin SR (150mg tablets)] 150 mg PO 1400 08/28/15 busPIRone [Buspar] 5 mg PO BID 08/28/15 metFORMIN (XR) [Glucophage Xr] 500 mg PO BID 08/28/15 mirabegron ER 25 mg tablet,extended release 24 hr 50 mg PO 1400 05/31/18 Aspirin 81 mg PO DAILY 01/16/19 D-Mannose 500 gm PO DAILY 01/16/19 L.acidoph,Paracasei, B.lactis [Probiotic] 1 ea PO DAILY 01/16/19 Aspirin [Aspirin, Baby] 81 mg PO DAILY@0800 #30 tab.chew 01/17/19 Cefadroxil [Duricef] 500 mg PO BID #12 cap 01/17/19 The following prescriptions were given: Aspirin [Aspirin, Baby] 81 mg PO DAILY@0800 #30 tab.chew Transmission Status: Pending to [facility] Cefadroxil [Duricef] 500 mg PO BID #12 cap Transmission Status: Pending to [facility] Primary Care Physician: Tyron Orellana III, MD [Primary Care Provider] - Please follow up with your Primary Care Physician in: in 1-2 weeks Test Results: Test results from this visit will be discussed in further detail at your follow- up appointment, if applicable. Please Follow Up With: Jorge Pineda MD When: FOR ET in 2 weeks
[2019-01-17 11:55] LABS: Bedside Glucose 118 mg/dL (70-110)
== END 2019-01-17 16:20 | disposition home or self-care (01) ==
LOC: ED 15:40 → MS3 18:03
PROVIDERS: Admitting Provider Internal Medicine; Emergency Provider Physician Assistant Medical; Family Provider Family Medicine; PCP Family Medicine; Referring Provider Internal Medicine; Visit Provider Internal Medicine
DX: A41.51 Sepsis due to Escherichia coli [E. coli] (principal); R65.20 Severe sepsis without septic shock; N30.10 Interstitial cystitis (chronic) without hematuria; D47.3 Essential (hemorrhagic) thrombocythemia; E03.9 Hypothyroidism, unspecified; E88.81 Metabolic syndrome and other insulin resistance; E11.9 Type 2 diabetes mellitus without complications; F41.9 Anxiety disorder, unspecified; I10 Essential (primary) hypertension; F32.9 Major depressive disorder, single episode, unspecified; Z90.5 Acquired absence of kidney; Z79.899 Other long term (current) drug therapy; Z79.84 Long term (current) use of oral hypoglycemic drugs; Z79.82 Long term (current) use of aspirin; Z85.528 Personal history of other malignant neoplasm of kidney
CPT/HCPCS: 36415; 71045; 76770; 80048; 80053; 81001; 82962; 83605; 85025; 85610; 85730; 87040; 87077; 87086; 87088; 87186; 93005; 96361; 96365; 96366; 96372; 96375; 99218; 99285; J7030; A4216; G0378; J2405

== ENCOUNTER 2019-02-15 13:53 | Emergency (ER) | payer MEDICAID, SELFPAY ==
[2019-01-16 18:16] VITALS: BMI 45.7
[2019-02-15 13:55] VITALS: BP 162/97; PULSE 97; RESP 16; TEMP 36.4; O2SAT 96; BMI 44.2
--- NOTE | 2019-02-15 15:18 | ED.VIS.GEN ---
History of Present Illness Chief Complaint: Abn Labs Detail of Chief Complaint: Evaded white count, 19,000 Informant: Patient, PCP Onset: Days Context: - - Unknown Timing: Continuous Quality: Elevated white count with elevated neutrophil count Location: Hematologic Current Severity: Mild Maximum Severity: Mild Worsened by: Possibly recent UTI/interstitial cystitis Relieved by: Nothing Associated Symptoms: No symptoms Narrative: Patient is a 53-year-old female who was contacted by Dr. Miller and instructed to come to the emergency department because of an elevated white count of 19,000. Her white count yesterday was 17.8 thousand. She has a history of central thrombocytosis. She also has history of interstitial cystitis. She denies fever, chills or night sweats. She states she saw her urologist this morning and her urine was clean. Furthermore she had a recent negative urine culture. She informed me that she emailed Dr. Pineda yesterday. She was informed that Dr. Galarza is not available for the next [address] Sullivan contacted her and stated he reviewed her records and plan was to have blood work in a couple to several weeks when Dr. Kramer returned. Prior similar symptoms: Yes Recent Illness/Hospitalization: Yes - January 16 2019 for UTI - Past Medical History (1) Interstitial cystitis Status: Chronic (2) UTI (urinary tract infection) Status: Acute (3) Anxiety and depression Status: Chronic (4) DM type 2 (diabetes mellitus, type 2) Status: Chronic (5) Essential thrombocythemia Status: Chronic Past Medical History - Allergies and Home Meds Allergies/Adverse Reactions: Allergies solifenacin succinate [From Vesicare] Allergy (Verified 02/15/19 13:55) Hives celecoxib [From Celebrex] Adverse Reaction (Verified 02/15/19 13:55) Nausea/Vom/Diarrhea diphenhydramine HCl [From Benadryl] Adverse Reaction (Verified 02/15/19 13:55) Other HYPERACTIVITY erythromycin base [Erythromycin Base] Adverse Reaction (Verified 02/15/19 13:55) Nausea/Vom/Diarrhea ketorolac tromethamine [From Toradol] Adverse Reaction (Verified 02/15/19 13:55) Hives lisinopril Adverse Reaction (Verified 02/15/19 13:55) Vomiting Primary Care Physician: Tyron Orellana III, MD [Primary Care Provider] - Prior records reviewed: Yes Surgical History: cholecystectomy, - - Partial nephrectomy, bladder suspension, EGD, cystoscopy Lives: Alone Smoking Status: Never smoker Alcohol: None Drugs: None - Family History Maternal Family History: Family History (Last Reviewed 05/31/18 @ 14:25 by Taylor Doan) Father Diabetes Heart disease Hypertension Family History: Reports: No pertinent history Paternal Family History: Family History (Last Reviewed 05/31/18 @ 14:25 by Taylor Doan) Father Diabetes Heart disease Hypertension Family History: Reports: Diabetes, Heart Disease, Hypertension Review of Systems General: Denies: Chills, Fever, Malaise, Subjective, Sweats, Weight loss Eyes: Denies: Visual changes - bilaterally, Blurred Vision - bilaterally, Diplopia ENT: Denies: Bilateral ear pain, Rhinorrhea, Sore throat Cardiovascular: Denies: Chest pain, Palpitations, Heart racing Respiratory: Denies: Dyspnea, Cough, Dyspnea on exertion, Orthopnea, Paroxysmal nocturnal dyspnea Gastrointestinal: Denies: Abdominal pain, Nausea, Vomiting, Diarrhea, Melena, Hematochezia Genitourinary: Denies: Dysuria, Hematuria, Frequency Musculoskeletal: Denies: Myalgias, Arthralgias, Neck pain, Back pain, Swelling, Extremity Pain Skin: Denies: Rash, Wounds Neurological: Denies: Headache, Weakness, Numbness Hematologic: Denies: Easy bruising, Easy bleeding Physical Exam Vital Signs/Narrative: Vital Signs Temp Pulse Resp BP Pulse Ox 02/15/19 13:55 97.5 F L 97 16 162/97 H 96 Inital Vital Signs reviewed: Yes General: Well nourished, Well developed, Obese, No Acute Distress Head: Normocephalic, Atraumatic Eyes: Perrl, EOMI. Negative for: Pale conjunctiva, Scleral icterus ENT: Moist mucous membranes, No rhinorrhea Neck: Supple, Nontender, No lymphadenopathy, No JVD Cardiovascular: Regular rate, Regular rhythm, No murmurs, Normal S1, Normal S2 Respiratory: No distress, CTA bilaterally, Chest nontender Abdomen: Soft, Nontender, Nondistended, Normal bowel sounds, No masses Back: Nontender, Normal Inspection. Negative for: CVA tenderness Extremities: Nontender, No edema Skin: Normal color, No rash Neurological: Alert, Oriented x3, Cranial nerves II-XII grossly intact, Normal Strength, Normal Sensation, Normal Gait Psychological: Normal affect, Normal Mood Diagnostic/Tx/Re-eval - Medical Decision Making Fax sent from PCPs office were reviewed. Spoke with Dr. Curry regarding patient. Since patient is asymptomatic she was instructed to adhere to plan established with Dr. Curry yesterday for follow-up in several weeks for repeat blood work. Did report recent dental work with extraction of tooth 1 month ago and reports she has a cavity left upper molar. She denies any facial pain, swelling, fever, chills etc. Patient has no appreciable murmur. With no constitutional symptoms and no murmur or physical findings of SBE no blood work was obtained and in my medical opinion there is no need for blood cultures to evaluate for SBE. ED Disposition - Plan for ED Patient: Disposition: Home or Assisted Living Diagnosis: Neutrophilic leukocytosis Instructions: White Cell Count Referrals: Tyron Orellana III, MD [Primary Care Provider] - Additional Instructions: Make appointment to follow-up with Dr. Pineda per previous plan with Dr. Curry.
[2019-02-15 15:37] VITALS: BP 138/72; PULSE 72; RESP 18; TEMP 36.6; TEMP 37.1; O2SAT 98
== END 2019-02-15 15:48 | disposition home or self-care (01) ==
PROVIDERS: Emergency Provider Emergency Medicine; Family Provider Family Medicine; PCP Family Medicine
DX: D72.828 Other elevated white blood cell count (principal); N30.10 Interstitial cystitis (chronic) without hematuria; E11.9 Type 2 diabetes mellitus without complications; D47.3 Essential (hemorrhagic) thrombocythemia; F32.9 Major depressive disorder, single episode, unspecified; F41.9 Anxiety disorder, unspecified; Z79.84 Long term (current) use of oral hypoglycemic drugs; Z79.82 Long term (current) use of aspirin; Z79.899 Other long term (current) drug therapy; Z87.440 Personal history of urinary (tract) infections; Z88.1 Allergy status to other antibiotic agents; Z88.8 Allergy status to other drugs, medicaments and biological substances; Z88.6 Allergy status to analgesic agent; Z90.49 Acquired absence of other specified parts of digestive tract; Z90.5 Acquired absence of kidney
CPT/HCPCS: 99282; J7030

== ENCOUNTER → 2019-02-16 15:31 | Outpatient (CLI) | payer MEDICAID, SELFPAY ==
[2019-01-16 18:16] VITALS: BMI 45.7
[2019-02-15 13:55] VITALS: BMI 44.2
--- NOTE | 2019-02-16 15:51 | BI_ITS ---
MAMMOGRAPHY - BILATERAL SCREENING REASON FOR EXAM: Female, 53 years old. Routine annual screening examination. PERTINENT HISTORY: Non-contributory. TECHNIQUE: Digital bilateral breast ed (3D mammographic acquisition) in the CC and MLO projections. 2-D mediolateral oblique (MLO) and craniocaudad (CC) views of both breasts were obtained. CAD: Full Field Digital Mammography with Computer Added Detection was performed. COMPARISON: Comparison is made with prior examination dated December 10, 2017 and March 09, 2017. FINDINGS: Breast Composition: The breasts are almost entirely fatty. There are no dominant masses or suspicious calcifications. Stable benign-appearing bilateral axillary lymph nodes. No other significant abnormalities are identified. There has been no significant change since the prior study. BI/SCREEN MAMM (CAD) W/ED BILAT IMPRESSION: Stable bilateral screening mammogram. Yearly follow-up mammogram recommended. (A) ASSESSMENT CATEGORY: BIRADS Category 2: Benign. A letter regarding these results will be sent to the patient by the facility within 30 days. Approximately 10% of breast cancers are not detected by mammography. A normal mammogram should not delay biopsy of a clinically suspicious abnormality. [id number] Electronically Signed: Leo Tipton, at 8:26 EDT , Service support ,
== END ==
PROVIDERS: Family Provider Family Medicine; PCP Family Medicine; Referring Provider Nurse Practitioner Family; Visit Provider Nurse Practitioner Family
DX: Z12.31 Encounter for screening mammogram for malignant neoplasm of breast (principal)
CPT/HCPCS: 77063; 77067

== ENCOUNTER 2019-03-08 08:10 | Day surgery (SDC) | payer MEDICAID, SELFPAY ==
[2019-02-19 12:39] VITALS: BMI 44.2
[2019-03-08] VITALS (7 sets, daily range): BP systolic 137–176; BP diastolic 69–82; PULSE 98–116; RESP 16–20; TEMP 36.3–36.8; O2SAT 92–99; BMI 45.7
--- NOTE | 2019-03-08 07:59 | PCM.OPRPT ---
Problem List (1) Urgency of micturition Status: Acute (2) Frequency of urination Status: Acute (3) Bladder pain Status: Acute (4) UTI (urinary tract infection) Status: Acute Qualifiers: Report of Operation Date of Procedure: 03/08/19 Pre-Operative Diagnosis: Urinary urgency, urinary frequency, bladder pain, and urinary tract infection Post-Operative Diagnosis: Same Surgery/Procedure Performed:: Cystoscopy, hydrodistention, pelvic exam under anesthesia Description of Surgical Findings:: No pelvic organ prolapse, normal pelvic floor, no pelvic mass, no stool in the rectal vault. Capacity over 600 cc, no glomerulations and no Hunner's ulcers present Type of Anesthesia:: General Specimen's removed: none Estimated Blood Loss (mL): 1cc Description of Procedure: The patient is a 53-year-old female who came to me in the office with complaints of urinary urgency, frequency and bladder pain along with urinary tract infections. Secondary to her discomfort, she is unable to undergo cystoscopic evaluation in the office and agreed to proceed with exam under anesthesia. All risk benefits and alternatives were discussed preoperatively and she agreed to proceed. Patient was taken to the operating room and placed in the operating room table. Anesthesia monitored the head, neck, airway, IV access and vital signs throughout the case. Once anesthesia was a probably administered the patient was placed into dorsal lithotomy position was prepped and draped in usual sterile fashion. On pelvic exam there is no prolapse noted. The urethral meatus is normal. There is no pelvic mass palpable, no stool in the rectal vault. At this time a scope with 21 Latvian sheath and 70 degree lens was inserted through the urethra under direct visualization. The urethra and bladder mucosa were visualized in their entirety. There were no lesions, areas of erythema, mass, foreign body identified. The ureteral orifices were located on the area of the trigone in correct anatomic position. Bilateral clear ureteral jets were observed. This time the bladder was filled to capacity and allowed to sit for 2 minutes. The bladder was emptied and capacity was measured at approximately 600 cc. The irrigant was clear. Upon reentry into the urinary bladder, there were no glomerulations identified and no cracking of the mucosa. The bladder was once again filled to capacity and allowed to sit for 2 minutes. The bladder was emptied and capacity was approximate 650 cc. The irrigant was once again clear. The patient was then awakened taken to recovery room in good condition. There were no complications during this procedure. Grafts/Implants Used: None - Complications None - Admit VTE Documentation VTE Present on Admission: Yes VTE Mechan Device Prophylaxis: SCD's VTE Pharm Prophylaxis ordered?: No Reason prophylaxis not ordered:: Treatment Not Indicated
--- NOTE | 2019-03-08 08:01 | DCINST_ITS ---
Discharge Diet: No Restrictions Discharge Activity: Return to Normal Activity, May not drive while taking narcotic pain medications., May Shower May resume sexual activity in: 2 weeks Call your doctor if you observe: Fever of 101 or Higher, Inability to urinate, Inability to have a bowel movement, Shortness of breath, Chest pain, Calf discomfort Allergies/Adverse Reactions: Allergies ketorolac tromethamine [From Toradol] Allergy (Verified 03/08/19 08:29) Hives solifenacin succinate [From Vesicare] Allergy (Verified 03/08/19 08:29) Hives celecoxib [From Celebrex] Adverse Reaction (Verified 03/08/19 08:29) Nausea/Vom/Diarrhea diphenhydramine HCl [From Benadryl] Adverse Reaction (Verified 03/08/19 08:29) Other HYPERACTIVITY erythromycin base [Erythromycin Base] Adverse Reaction (Verified 03/08/19 08:29) Nausea/Vom/Diarrhea lisinopril Adverse Reaction (Verified 03/08/19 08:29) Vomiting Medications to take at Discharge Levothyroxine [Synthroid] 125 mcg PO DAILY 08/28/15 busPIRone [Buspar] 15 mg PO BID 08/28/15 mirabegron ER 25 mg tablet,extended release 24 hr 50 mg PO 1400 05/31/18 L.acidoph,Paracasei, B.lactis [Probiotic] 1 ea PO DAILY 01/16/19 bupropion HCl SR 150 mg tablet,12 hr sustained-release 300 mg PO 1400 02/19/19 hydrochlorothiazide 12.5 mg capsule 12.5 mg PO DAILY #30 cap 02/19/19 Famotidine [Pepcid] 20 mg PO BID 03/07/19 Methenam/Sod Phos/Mblue/Hyoscy [Urogesic-Blue Tablet] 1 ea PO 4X/DAY 03/07/19 Omeprazole [Prilosec] 20 mg PO DAILY 03/07/19 Oxycodone HCl/Acetaminophen [Percocet 5/325] 1 - 2 tab PO Q6H PRN PRN 7 Days #10 tab 03/08/19 Smz/Tmp Ds [Bactrim Ds] 1 tab PO BID 3 Days #6 tab 03/08/19 The following prescriptions were given: Smz/Tmp Ds [Bactrim Ds] 1 tab PO BID 3 Days #6 tab Prescription Printed Oxycodone HCl/Acetaminophen [Percocet 5/325] 1 - 2 tab PO Q6H PRN PRN 7 Days #10 tab PRN Reason: Pain Prescription Printed Orders to be completed after discharge: ,Urine Time Frame: 03/08/19, Facility: [facility], Location: Laboratory Primary Care Physician: Tyron Orellana III, MD [Primary Care Provider] - Test Results: Test results from this visit will be discussed in further detail at your follow- up appointment, if applicable. Please Follow Up With: Della Andrade MD When: call for appt to be seen in 2-3 weeks Proposed Discharge Date: 03/08/19
[2019-03-08] MEDS: Lactated Ringers 1,000 ML 100 ML IV (08:39)
[2019-03-08 09:04] LABS: Internal QC Validated? YES +Cl - CLEAR BKGD; Pregnancy, Serum, hCG Quali. NEGATIVE Negative
== END 2019-03-08 12:06 | disposition home or self-care (01) ==
LOC: SDC 08:10 → AC 08:12
PROVIDERS: Anesthesiology; Family Provider Family Medicine; PCP Family Medicine; Referring Provider Urology; Visit Provider Urology
PROC: 0T7B7ZZ Dilation of Bladder, Via Natural or Artificial Opening (ICD-10-PCS; CPT 52260; principal; 2019-03-08 08:45)
DX: N30.10 Interstitial cystitis (chronic) without hematuria (principal); R39.15 Urgency of urination; R35.0 Frequency of micturition; R35.1 Nocturia; R73.01 Impaired fasting glucose; D69.6 Thrombocytopenia, unspecified; I10 Essential (primary) hypertension; E03.9 Hypothyroidism, unspecified; K21.9 Gastro-esophageal reflux disease without esophagitis; F32.9 Major depressive disorder, single episode, unspecified; F41.9 Anxiety disorder, unspecified; Z79.899 Other long term (current) drug therapy
CPT/HCPCS: 00910; 52260; 84703; J7120; J2405

== ENCOUNTER → 2019-03-11 15:36 | Outpatient (CLI) | payer MEDICAID, SELFPAY ==
[2019-03-08 08:31] VITALS: BMI 45.7
[2019-03-11 17:49] LABS: Color, Urine Yellow (Yellow); Glucose, Dipstick Normal (Normal); Ketone-Dipstick Negative (Negative); Leukocyte Esterase-Dipstick 100 /ul (Negative); Nitrite-Dipstick Negative (Negative); Occult Blood-Urine Negative /ul (Negative); Protein-Dipstick Negative (Negative); Specific Gravity, Urine 1.005 (1.002-1.030); Urine Bilirubin Dipstick Negative (Negative); Urine Clarity Clear (Clear); Urine Urobilinogen Normal (Normal)
== END ==
PROVIDERS: Family Provider Family Medicine; PCP Family Medicine; Referring Provider Urology; Visit Provider Urology
DX: R30.0 Dysuria (principal)
CPT/HCPCS: 81002; 87077; 87086; 87088; 87186

== ENCOUNTER 2019-03-21 21:15 | Emergency (ER) | payer MEDICAID, SELFPAY ==
[2019-03-08 08:31] VITALS: BMI 45.7
[2019-03-21 21:16] VITALS: BP 164/87; PULSE 95; RESP 16; TEMP 36.6; O2SAT 97; BMI 45.3
[2019-03-21] MEDS: 0.9% Normal Saline 1,000 ML 150 ML IV (21:54)
[2019-03-21 22:02] LABS: Bacteria 0 SEEN /hpf (None Seen); Red Blood Cells-Urine 0 SEEN /hpf (0-5)
[2019-03-21 22:07] LABS: Hematocrit 44.3 % (37-47); Hemoglobin 12.1 g/dL (12.0-15.0); Mean Corp Hgb Conc 27.3 g/dL (32-36); Mean Corpuscular Volume 73.1 fL (81-99); Mean Platelet Vol. 9.1 fl (6.2-12.0); POSITIVE COUNT YES; POSITIVE MORPHOLOGY YES; RBC Distribution Width CV 22.4 % (11.6-14.6); RBC Distribution Width SD 54.5 fl (35.1-43.9); Red Blood Count 6.06 M/mm3 (4.2-5.4); White Blood Count 23.7 K/mm3 (4.4-11.0)
[2019-03-21 22:12] LABS: Platelet Count 845 K/mm3 (150-450); Scan Indicated on CBC? Y/N YES- FLAGS NOTED
--- NOTE | 2019-03-21 22:12 | ED.RN ---
[id number].
[2019-03-21 22:16] LABS: Glucose, Dipstick Normal (Normal); Ketone-Dipstick 15 mg/dl (Negative); Leukocyte Esterase-Dipstick 25 /ul (Negative); Nitrite-Dipstick Negative (Negative); Occult Blood-Urine 25 /ul (Negative); Protein-Dipstick 30 mg/dl (Negative); Urine Bilirubin Dipstick Negative (Negative); Urine Clarity Sl. Cloudy (Clear); Urine Urobilinogen Normal (Normal); Urine pH 6.5 (5.0 - 8.0)
[2019-03-21 22:17] LABS: Color, Urine SEE COMMENT BELOW (Yellow)
[2019-03-21 22:20] LABS: Anion Gap 6 (5-15); BUN 7 mg/dL (7-18); BUN/Creat Ratio 9.2 RATIO (10-20); Calcium,Total 8.6 mg/dL (8.5-10.1); Chloride 101 mmol/L (98-107); Creatinine, Serum 0.76 mg/dL (0.55-1.02); EST Glomerular Filtration Rate 85 mL/min (>60); Est Glom Filt Rate - Afr Amer 103 mL/min (>60); Estimated Creatinine Clearance 75.62 ml/min; Glucose 102 mg/dL (74-106); Potassium 3.5 mmol/L (3.5-5.1); Sodium Level 135 mmol/L (136-145)
--- NOTE | 2019-03-21 22:30 | CT_ITS ---
STUDY: CT ABDOMEN AND PELVIS WITHOUT CONTRAST REASON FOR EXAM: Female, 53 years old. Abdominal pain RADIATION DOSAGE (If Supplied By Facility): CTDIvol = ( 23.66 ) mGy, DLP = ( 1335.88 ) mGycm TECHNIQUE: Transaxial images were obtained from the dome of the diaphragm to the symphysis pubis without oral contrast, and without intravenous contrast. Sagittal and coronal images were reconstructed. Individualized dose optimization techniques were used for this CT. COMPARISON: 03/09/2016 FINDINGS: The visualized lung bases are unremarkable. The visualized portions of the heart are within normal limits. Normal liver. There are surgical clips in the gallbladder fossa consistent with a prior cholecystectomy. Splenomegaly, with splenic length of 14 cm. Normal pancreas. Normal bilateral adrenal glands. Normal right kidney. Chronic left lateral renal calcifications. Normal visualized stomach. Normal small intestine. Normal colon. The appendix is visualized and appears normal. Normal abdominal aorta. Normal inferior vena cava. Normal retroperitoneum. Normal urinary bladder. Enlarging cysts in the left lower quadrant may be ovarian and/or adnexal in origin. These now measure 5.0 x 4.5 cm more laterally and 3.8 x 3.3 cm more medially. Normal abdominal wall. There are diffuse degenerative changes of the visualized lumbar spine. CT/Abdomen/Pelvis without Cont IMPRESSION: Enlarging cysts in the left lower quadrant may be ovarian and/or adnexal in origin. These now measure 5.0 x 4.5 cm more laterally and 3.8 x 3.3 cm more medially. Splenomegaly. No evidence of acute intestinal pathology or acute obstructive uropathy. Electronically Signed: Bhupinder Gonzales MD at 22:59 EDT Tel , Service support ,
[2019-03-21 22:33] LABS: Mucous, Urine 2+ /hpf (<or=2+); Squamous Epithelial Cells - UA 0-5 SEEN /hpf (5-10); White Blood Cells 0-5 SEEN /hpf (0-5)
[2019-03-21 22:42] LABS: Differential Comment SCANNED
[2019-03-21 22:59] LABS: Lactic Acid 1.4 mmol/L (0.4-2.0)
--- NOTE | 2019-03-21 23:13 | ED.DCSUM_ITS ---
- ER Visit Summary Date of Service: 03/21/19 Chief Complaint: [Dysuria] History of Present Illness: The patient is a 53 F [the emergency department complaint of dysuria started today. Patient states that she was recently treated for urinary tract infection and was on Macrobid and Bactrim. Patient complains of urgency and frequency. She denies any fever although she had some chills but she was not sure if it was because of the temperature change. Patient does have a history of interstitial cystitis and history of elevated platelets. Patient has hypothyroidism.] Physical Examination: [HEENT-PERRLA, EOMI. Cranial nerves II through XII grossly intact. TMs clear. Mucous membranes moist. No adenopathy. Cardiovascular-regular rate and rhythm without murmur or ectopy Lungs-clear to auscultation, chest wall stable without crepitus or subcu emphysema Abdomen-normoactive bowel sounds, soft. Patient has tenderness over the supra region. There is no rebound, rigidity, or perineal signs. Extremities-intact ?4, normal range of motion, normal pulses, atraumatic] Test Results: [CBC with differential obtained showed a white blood cell count of 23.7, hemoglobin 12, hematocrit 44, platelets a 45. Chemistries unremarkable. Urinalysis was essentially normal. Urine culture was sent. CT flank obtained showed splenomegaly as well as enlarging cysts of the left lower quadrant measuring 5 x 4.5 cm and 3.8 x 3.3 cm.] Emergency Department Course and Treatment: [Patient was started on Keflex empirically because she is concerned about infection and states that in the past she has had urine that did not look infected but when the culture came back it was positive.] Patient case was discussed with Dr. Pineda who is her oncologist. Patient's CBC is at its baseline and he has no further concerns with it at this time if there are no infectious symptoms. Treatment Plan: [Follow-up with her urologist whom she has an appointment with in 2 days. Patient will be started on Keflex. On a form of Pyridium.] Disposition: Discharge home in stable condition.] Impression: [Dysuria Left pelvic cysts] This note was generated with [employer] software. It may contain incorrect words, spelling, and punctuation that were not noted in review of the chart prior to signing ED Disposition - Plan for ED Patient: Referrals: Tyron Orellana III, MD [Primary Care Provider] -
--- NOTE | 2019-03-21 23:18 | DCINST.ED_ITS ---
ED Disposition - Plan for ED Patient: Instructions: Bladder Infection, Female (Adult), Ovarian Cyst Prescriptions: Cephalexin [Keflex] 500 mg PO Q6 #40 cap Prescription Printed Hydrocodone Bitart/Apap 5-325 [[place] 5MG-325MG] 1 tab PO Q4H PRN PRN 2 Days #10 tab PRN Reason: Pain Prescription Printed Referrals: Tyron Orellana III, MD [Primary Care Provider] - Haley Dixon MD [STAFF PHYSICIAN] - 3-5 Days
[2019-03-21] MEDS: Cephalexin 250 MG Capsule 500 MG PO (23:33)
[2019-03-21 23:45] VITALS: BP 165/80; PULSE 82; RESP 15; O2SAT 97
[2019-03-22 11:06] LABS: Pathologist Review Reviewed
== END 2019-03-21 23:45 | disposition home or self-care (01) ==
LOC: ED 21:58
PROVIDERS: Emergency Provider Emergency Medicine; Family Provider Family Medicine; PCP Family Medicine
DX: R30.0 Dysuria (principal); N94.89 Other specified conditions associated with female genital organs and menstrual cycle; Z87.440 Personal history of urinary (tract) infections; N30.10 Interstitial cystitis (chronic) without hematuria; E03.9 Hypothyroidism, unspecified; Z79.899 Other long term (current) drug therapy
CPT/HCPCS: 74176; 80048; 81001; 83605; 85027; 87077; 87086; 87088; 87186; 96360; 96361; 99285; J7030; A4216

== ENCOUNTER → 2019-10-20 12:59 | Outpatient (CLI) | payer MEDICAID, SELFPAY ==
[2019-07-11 11:33] VITALS: BMI 43.9
== END ==
PROVIDERS: PCP Family Medicine; Referring Provider Urology; Visit Provider Urology
DX: N39.0 Urinary tract infection, site not specified (principal)
CPT/HCPCS: 87077; 87086; 87088; 87186

== ENCOUNTER → 2019-11-28 14:17 | Outpatient (CLI) | payer MEDICAID, SELFPAY ==
[2019-11-07 15:20] VITALS: BMI 44.9
[2019-11-28 18:04] LABS: Color, Urine Yellow (Yellow); Glucose, Dipstick Normal (Normal); Ketone-Dipstick Negative (Negative); Leukocyte Esterase-Dipstick 100 /ul (Negative); Nitrite-Dipstick Negative (Negative); Occult Blood-Urine Negative /ul (Negative); Protein-Dipstick Negative (Negative); Urine Bilirubin Dipstick Negative (Negative); Urine Clarity Clear (Clear); Urine Urobilinogen Normal (Normal); Urine pH 6.5 (5.0 - 8.0)
== END ==
PROVIDERS: PCP Family Medicine; Referring Provider Urology; Visit Provider Urology
DX: N39.0 Urinary tract infection, site not specified (principal)
CPT/HCPCS: 81002; 87077; 87086; 87088; 87186

== ENCOUNTER → 2020-02-14 14:50 | Outpatient (CLI) | payer MEDICAID, SELFPAY ==
[2019-11-07 15:20] VITALS: BMI 44.9
[2020-02-11 13:27] VITALS: BMI 44.9
[2020-02-14 18:07] LABS: Glucose, Dipstick Normal (Normal); Ketone-Dipstick Negative (Negative); Leukocyte Esterase-Dipstick 25 /ul (Negative); Nitrite-Dipstick Negative (Negative); Occult Blood-Urine Negative /ul (Negative); Protein-Dipstick Negative (Negative); Urine Bilirubin Dipstick Negative (Negative); Urine Urobilinogen Normal (Normal)
[2020-02-14 18:13] LABS: Color, Urine Yellow (Yellow); Urine Clarity Sl Cloudy (Clear)
== END ==
PROVIDERS: PCP Family Medicine; Referring Provider Urology; Visit Provider Urology
DX: N39.0 Urinary tract infection, site not specified (principal)
CPT/HCPCS: 81002; 87077; 87086; 87088; 87186

== ENCOUNTER → 2020-04-06 15:56 | Outpatient (CLI) | payer MEDICAID, SELFPAY ==
[2020-02-28 09:01] VITALS: BMI 44.9
--- NOTE | 2020-04-06 16:00 | CT_ITS ---
STUDY: CT MAXILLOFACIAL SINUSES REASON FOR EXAM: Female, 54 years old. FALL 3 weeks ago AND SINUSITIS. left maxillary pain RADIATION DOSAGE (If Supplied By Facility): CTDIvol = ( 33.45 ) mGy, DLP = ( 445.17 ) mGycm TECHNIQUE: The patient was scanned in a multi detector CT scanner. High resolution axial imaging was performed without the administration of intravenous contrast material. Sagittal and coronal images were reconstructed. Individualized dose optimization techniques were used for this CT. COMPARISON: None. FINDINGS: FRONTAL SINUSES: Normal aeration, without mucosal inflammatory disease. ETHMOIDAL SINUSES: Normal aeration, without mucosal inflammatory disease. MAXILLARY SINUSES: Large mucous retention cyst in the right x-ray sinus. SPHENOIDAL SINUSES: Normal aeration, without mucosal inflammatory disease. There is patency of the bilateral maxillary infundibuli with normal uncinate processes, ethmoid bullae, and hiatus semilunaris. Normal bilateral middle turbinates. Normal bilateral inferior turbinates. Normal midline nasal septum. There is patency of the bilateral nasal airways. The visualized osseous structures are normal. The visualized bilateral orbital contents are normal. CT/Sinus/Facial Bone IMPRESSION: Large mucous retention cyst of the right maxilla sinus. Electronically Signed: Mukesh Silver MD at 9:48 EST Tel , Service support ,
== END ==
PROVIDERS: PCP Family Medicine; Referring Provider Otolaryngology Otolaryngology/Facial Plastic Surgery; Visit Provider Otolaryngology Otolaryngology/Facial Plastic Surgery
DX: J32.9 Chronic sinusitis, unspecified (principal)
CPT/HCPCS: 70486

== ENCOUNTER → 2020-04-24 13:00 | Outpatient (CLI) | payer MEDICAID, SELFPAY ==
[2020-04-24 10:45] VITALS: BMI 44.9
--- NOTE | 2020-04-24 13:03 | VDLE_ITS ---
Reason For Study: Pain Procedure LEFT This is a venous duplex using B-mode, color GSV is normal. flow and spectral Doppler. CFV is compressible, spontaneous, phasic, Exam performed in department. competent, and demonstrates normal A preliminary report was called and/or faxed augmentation. to Varinder, seen at [facility]. PCP, Esteban, FV is compressible, spontaneous, phasic, Tyron. competent and demonstrates normal augmentation. POP V is compressible, spontaneous, phasic, competent and demonstrates normal augmentation. T/P Trunk is compressible. PTV is compressible. LT PerV is compressible. Interpretation Summary Deep veins of the left lower extremity are patent and compressible segmentally. There is no evidence of left lower extremity deep vein thrombosis. Valvular competence appears intact within the proximal deep venous system on the left . The left great saphenous vein appears patent and compressible segmentally. Ordering Physician: Da Reeder Referring Physician: LIU Orellana M.D. Performed By: Laura Alberto RVT
== END ==
PROVIDERS: PCP Family Medicine; Referring Provider Nurse Practitioner Family; Visit Provider Nurse Practitioner Family
DX: M25.562 Pain in left knee (principal)
CPT/HCPCS: 93971

== ENCOUNTER → 2020-05-14 | Outpatient (CLI) | payer MEDICAID, SELFPAY | END | disposition home or self-care (01) | LOC: LABSPEC 15:27 | PROVIDERS: PCP Family Medicine; Referring Provider Physician Assistant Surgical; Visit Provider Physician Assistant Surgical | DX: Z20.828 Contact with and (suspected) exposure to other viral communicable diseases (principal); R05 Cough | CPT/HCPCS: 87635; U0003 ==

== ENCOUNTER 2020-07-19 09:22 | Outpatient (RCR) | payer MEDICAID, SELFPAY ==
[2020-06-14 15:13] VITALS: BMI 44.7
== END 2020-07-19 23:59 ==
LOC: IMMUN 09:22
PROVIDERS: PCP Family Medicine; Visit Provider Family Medicine
DX: Z23 Encounter for immunization (principal)
CPT/HCPCS: 0011A

== ENCOUNTER → 2020-11-05 13:26 | Outpatient (CLI) | payer MEDICAID, SELFPAY ==
[2020-09-20 17:22] VITALS: BMI 44.7
[2020-10-11 15:26] VITALS: BMI 44.6
--- NOTE | 2020-11-05 13:29 | BI_ITS ---
MAMMOGRAPHY - BILATERAL SCREENING REASON FOR EXAM: Female, 55 years old. Routine annual screening examination. PERTINENT HISTORY: Non-contributory. TECHNIQUE: Digital bilateral breast ed (3D mammographic acquisition) in the CC and MLO projections. 2-D mediolateral oblique (MLO) and craniocaudad (CC) views of both breasts were obtained. CAD: Full Field Digital Mammography with Computer Added Detection was performed. COMPARISON: Comparison is made with prior examination dated 02/16/2019 and 12/10/2017. FINDINGS: Breast Composition: The breasts are almost entirely fatty. There are no dominant masses or suspicious calcifications. Stable benign-appearing bilateral axillary lymph nodes. No other significant abnormalities are identified. There has been no significant change since the prior study. BI/SCRN MAMM (CAD)W/ED BILAT IMPRESSION: Stable bilateral screening mammogram. Yearly follow-up mammogram recommended. (A) ASSESSMENT CATEGORY: BIRADS Category 2: Benign. A letter regarding these results will be sent to the patient by the facility within 30 days. Approximately 10% of breast cancers are not detected by mammography. A normal mammogram should not delay biopsy of a clinically suspicious abnormality. [id number] Electronically Signed: Leo Tipton MD at 14:23 EDT , Service support ,
== END ==
PROVIDERS: PCP Family Medicine; Referring Provider Family Medicine; Visit Provider Family Medicine
DX: Z12.31 Encounter for screening mammogram for malignant neoplasm of breast (principal)
CPT/HCPCS: 77063; 77067

== ENCOUNTER → 2021-01-29 13:46 | Outpatient (CLI) | payer MEDICAID, SELFPAY ==
[2021-01-29 15:12] LABS: Hematocrit 44.5 % (37-47); Hemoglobin 12.1 g/dL (12.0-15.0); Mean Corp Hgb Conc 27.2 g/dL (32-36); Mean Corpuscular Hgb 17.6 pg (27.0-32.0); Mean Corpuscular Volume 64.6 fL (81-99); Mean Platelet Vol. 8.7 fl (6.2-12.0); POSITIVE COUNT YES; POSITIVE MORPHOLOGY YES; RBC Distribution Width CV 25.1 % (11.6-14.6); RBC Distribution Width SD 52.3 fl (35.1-43.9); Red Blood Count 6.89 M/mm3 (4.2-5.4); White Blood Count 27.4 K/mm3 (4.4-11.0)
[2021-01-29 15:23] LABS: Platelet Count 1083 K/mm3 (150-450)
[2021-01-29 15:33] LABS: Anion Gap 4 (5-15); BUN 8 mg/dL (7-18); BUN/Creat Ratio 10.7 RATIO (10-20); Calcium,Total 8.8 mg/dL (8.5-10.1); Chloride 104 mmol/L (98-107); Creatinine, Serum 0.75 mg/dL (0.55-1.02); EST Glomerular Filtration Rate 86 mL/min (>60); Est Glom Filt Rate - Afr Amer 104 mL/min (>60); Glucose 110 mg/dL (74-106); Potassium 3.5 mmol/L (3.5-5.1); Sodium Level 137 mmol/L (136-145)
[2021-01-29 16:05] LABS: Scan Indicated on CBC? Y/N YES- FLAGS NOTED
[2021-01-30 16:17] LABS: Pathologist Review Reviewed
== END ==
PROVIDERS: PCP Family Medicine; Referring Provider Urology; Visit Provider Urology
DX: N39.0 Urinary tract infection, site not specified (principal)
CPT/HCPCS: 36415; 80048; 85027

== ENCOUNTER → 2021-02-05 12:17 | Outpatient (CLI) | payer MEDICAID, SELFPAY ==
--- NOTE | 2021-02-05 12:25 | CT_ITS ---
STUDY: CT ABDOMEN AND PELVIS WITH AND WITHOUT CONTRAST REASON FOR EXAM: Female, 55 years old. UTI/HX PARTIAL NEPHRECTOMY/BENIGN NEOPLASM OF STOMACH/ RADIATION DOSAGE (If Supplied By Facility): CTDIvol = ( 26.67 ) mGy, DLP = ( 4553.45 ) mGycm TECHNIQUE: Transaxial images were obtained from the dome of the diaphragm to the symphysis pubis without oral contrast. IV 100mL Isovue-[id number] was administered. Sagittal and coronal images were reconstructed. Individualized dose optimization techniques were used for this CT. COMPARISON: Comparison is made with prior examination 03/21/2019. FINDINGS: The visualized lung bases are unremarkable. The visualized portions of the heart are within normal limits. Normal liver. There are surgical clips in the gallbladder fossa consistent with a prior cholecystectomy. There is mild splenomegaly. Normal pancreas. Normal bilateral adrenal glands. Normal right kidney. Postsurgical changes are seen along the inferior lateral aspect of the left. There is a small hiatal hernia. Normal small intestine. Normal colon. The appendix is visualized and appears normal. Normal abdominal aorta. Normal inferior vena cava. Normal retroperitoneum. Normal urinary bladder. There is a 4.2 cm x 4.9 cm cyst in the left ovary. 1.9 cm dominant follicle in the right ovary. Normal abdominal wall. There are diffuse degenerative changes of the visualized lumbar spine. CT/CT Abd/Pelvis W/WO Contrast IMPRESSION: Post surgical changes are seen in the inferior lateral aspect of the left kidney. Fatty infiltration of the liver. Splenomegaly. 4.2 cm x 4.9 cm cyst in the left ovary. 1.9 cm dominant follicle in the right ovary. Electronically Signed: Leo Tipton MD at 14:20 EDT , Service support ,
== END ==
PROVIDERS: PCP Family Medicine; Visit Provider Urology
DX: N39.0 Urinary tract infection, site not specified (principal); D13.1 Benign neoplasm of stomach; R39.15 Urgency of urination; R35.0 Frequency of micturition; Z90.5 Acquired absence of kidney
CPT/HCPCS: 74178; Q9967

== ENCOUNTER 2021-02-22 08:15 | Day surgery (SDC) | payer MEDICAID, SELFPAY ==
--- NOTE | 2021-02-19 13:14 | EKG12_ITS ---
Test Reason : PREOP Blood Pressure : / mmHG Vent. Rate : 073 BPM Atrial Rate : 073 BPM P-R Int : 162 ms QRS Dur : 098 ms QT Int : 388 ms P-R-T Axes : 014 027 024 degrees QTc Int : 427 ms Normal sinus rhythm Normal ECG Confirmed by YULIANA COOK, PILAR ([id number]), magazine editor FIDE RINCON ([id number]) on 02/20/2021 1:04:44 PM Referred By: Della Andrade Confirmed By:PILAR BRIDGES MD
[2021-02-19 14:56] LABS: Hematocrit 42.7 % (37-47); Hemoglobin 11.4 g/dL (12.0-15.0); Mean Corp Hgb Conc 26.7 g/dL (32-36); Mean Corpuscular Hgb 17.4 pg (27.0-32.0); Mean Corpuscular Volume 65.3 fL (81-99); Mean Platelet Vol. 8.9 fl (6.2-12.0); POSITIVE COUNT YES; POSITIVE MORPHOLOGY YES; RBC Distribution Width CV 24.3 % (11.6-14.6); Red Blood Count 6.54 M/mm3 (4.2-5.4); White Blood Count 22.5 K/mm3 (4.4-11.0)
[2021-02-19 15:00] LABS: Platelet Count 928 K/mm3 (150-450); Scan Indicated on CBC? Y/N YES- FLAGS NOTED
[2021-02-20 13:35] LABS: Pathologist Review Reviewed
[2021-02-22] VITALS (7 sets, daily range): BP systolic 112–154; BP diastolic 55–70; PULSE 88–99; RESP 16–18; TEMP 36.1–37.4; O2SAT 16–98; BMI 43.2
[2021-02-22] MEDS: Lactated Ringers 1,000 ML 100 ML IV (09:00)
--- NOTE | 2021-02-22 09:09 | HP.PCM_ITS ---
HPI - General HPI Narrative ARNIE MCQUEEN, is a 55 F who presents for cystoscopy with possible bladder biopsy, possible hydrodistention for management of her interstitial cystitis with recurrent urinary tract infections. Informed consent was obtained. Her preoperative culture is negative. FORMERLY [facility] Medical History Acute maxillary sinusitis, unspecified Anxiety Back pain Bladder distention Cancer Depression Essential thrombocythemia Gastric reflux History of stress test Hypertension Injury of back Interstitial cystitis Knee pain Low iron Malignant tumor of kidney Non-smoker Post-menopausal Pre-diabetes Severe headache Shoulder pain Stomach ulcer Thyroid disease Thyroid disease Vaginal candidiasis Home Medications buspirone 15 mg PO BID 08/28/15 [History Last Taken 01/15/19] levothyroxine 125 mcg PO DAILY 08/28/15 [History Last Taken 01/16/19] mirabegron 25 mg tablet,extended release 24 hr 50 mg PO 1400 05/31/18 [History Last Taken 01/15/19] L.acidoph, paracasei,B. lactis 1 ea PO DAILY 01/16/19 [History Last Taken 01/16/19] bupropion HCl 150 mg tablet,12 hr sustained-release 300 mg PO 1400 02/19/19 [History Last Taken Unknown] omeprazole 20 mg PO DAILY 03/07/19 [History Last Taken 02/22/21 07:30] aspirin 81 mg PO DAILY 07/04/19 [History Last Taken 02/10/21] d-mannose 1 ea PO DAILY g 02/28/20 [History Last Taken Unknown] epojac-unngb-n.vogs-ajf-rbroeo [Uro Blue] 1 tab PO PRN PRN 02/15/21 [History Last Taken Unknown] Allergy/AdvReac Type Severity Reaction Status Date / Time ketorolac tromethamine Allergy Severe Hives Verified 02/22/21 09:03 [From Toradol] solifenacin succinate Allergy Severe Hives Verified 02/22/21 09:03 [From Vesicare] erythromycin base AdvReac Severe Nausea/Vom/ Verified 02/22/21 09:03 [Erythromycin Base] Diarrhea celecoxib [From Celebrex] AdvReac Intermediate Nausea/Vom/ Verified 02/22/21 09:03 Diarrhea diphenhydramine HCl AdvReac Mild Other Verified 02/22/21 09:03 [From Benadryl] lisinopril AdvReac Mild Vomiting Verified 02/22/21 09:03 Family History Father Diabetes Heart disease Hypertension Grandmother Cancer Surgical History History of cholecystectomy History of root canal procedure partial kidney removed Social History number of children: 0 current occupational status: employed current occupation: [employer] Smoking Status: Never smoker alcohol intake: never substance use type: does not use seatbelt use: sometimes do you feel safe at home: Yes additional social history: single ROS Constitutional Constitutional: Reports difficulty sleeping and fatigue; Denies chills, fever(s) or headache(s) Eyes Eyes: Reports systems reviewed and no addt'l complaints, except as documented ENT HEENT: Reports systems reviewed and no addt'l complaints, except as documented Cardiovascular Cardiovascular: Denies chest pain, dyspnea, irregular heart rhythm or leg edema Respiratory/Chest Respiratory/Chest: Denies change in mental status, difficulty clearing secretions or dyspnea Gastrointestinal Gastrointestinal: Reports abdominal pain and cramping; Denies vomiting Genitourinary Genitourinary: Reports dysuria, low back pain, urinary frequency and urinary urgency Musculoskeletal Musculoskeletal: Reports systems reviewed and no addt'l complaints, except as documented Integumentary Integumentary: Reports systems reviewed and no addt'l complaints, except as documented Neurologic Neurologic: Reports systems reviewed and no addt'l complaints, except as documented Psychiatric Psychiatric: Reports systems reviewed and no addt'l complaints, except as documented Endocrine Endocrinology: Reports systems reviewed and no addt'l complaints, except as documented Hematologic/Lymphatic Hematologic/Lymphatic: Reports systems reviewed and no addt'l complaints, except as documented Physical Exam Const alert, oriented x3 and no apparent distress HEENT normocephalic, head/scalp atraumatic, hearing grossly normal bilaterally and external ears normal Face and Sinus: face symmetric Nose: external nose normal External Ear: external ears normal Mouth: lips normal and tongue normal Eyes no scleral icterus General Eye: normal appearance of both eyes Neck supple General: trachea midline Lymph Lymphatic: no lymphedema noted Chest inspection of chest normal Chest: symmetrical chest wall rise Cardio regular rate and regular rhythm GI soft to palpation, non-tender and non-distended no CVA tenderness and external exam normal Back/Spine no CVA tenderness Extremity normal to inspection Skin no rashes or lesions noted, no wounds, skin turgor normal, no jaundice, no petechiae and no mottling Neuro oriented x3, CN's II-XII intact bilaterally and moves all extremities Psych mental status grossly normal and thought process normal Results Lab / Micro Data Result Diagrams: 02/19/21 13:36 Assessment & Plan Assessment/Plan (1) Interstitial cystitis: PLAN: Proceed with cystoscopy, possible bladder biopsy, possible hyd rodistention. Informed consent was obtained. (2) Bladder pain: (3) UTI (urinary tract infection):
[2021-02-22] MEDS: Lidocaine 1% /Epi 1:100 (20ml) 20 ML Vial (09:35)
--- NOTE | 2021-02-22 09:40 | LES_PTH ---
PATIENT: ARNIE MCQUEEN LOC: [facility] – [place] U#:[id number] AGE/SX: 55/F ROOM: RE02/22/[address]: Dr. Della Andrade MD : 1965 BED: DIS: 02/22/2021 SPEC #: [id number] RECD: 02/22/21 13:56 STATUS: KAM CASSI #: [id number] DEBORA: 02/22/21 09:[address]: Della Andrade DEPT: SURGICAL PATHOLOGY RECD BY: Geri Garcia ENTERED: 02/25/21 09:18 SP TYPE: Lesion OTHR DR: Dr. Da Weber MD Tissues: Vagina, NOS Procedures: Special Stain Group I Surgery Specimen Level IV GMS Stain (control) HEADER OPERATION: Cysto, hydrodistention, biopsy vaginal lesion PRE-OP DIAGNOSIS: Interstitial cystitis, urinary tract infections, vaginal lesion TISSUE SUBMITTED: Vaginal lesion (punch biopsy) MICROSCOPIC DIAGNOSIS Vaginal lesion, punch biopsy: A piece of skin with acanthosis, parakeratosis, mild junctional and dermal chronic inflammation. Negative for malignancy. SJ:jodee 02/26/2021 COMMENT Special stain for fungi is negative for organisms; matched control is appropriate. Clinical correlation and appropriate follow up are necessary. Case has been reviewed in consultation with Dr. Rene who concurs with the above diagnosis. IDC:AM MICROSCOPIC DESCRIPTION Slides are reviewed. GROSS DESCRIPTION Received in fixative is one container labeled with the patient's name and designated punch biopsy vaginal lesion. The specimen consists of one irregular fragment of light espitia soft tissue that measures 0.2 x 0.1 x 0.1 cm. The specimen is totally submitted in one cassette. / AM:jodee 02/25/21 TC:5 CPT: 98863, 73939
[2021-02-22] MEDS: Bacitracin 500 UNITS/GM PACKET (09:52)
--- NOTE | 2021-02-22 10:05 | PCM.DC ---
Discharge Instructions Diet Discharge Diet: No restrictions Activity Discharge Activity: Return to Normal Activity Dressing / Incision Call your doctor if your incision/area has: Continuous Slow Oozing, Sudden Increased Bleeding, Increased Pain/ Swelling, Increased Redness, Foul Smelling Discharge and Swelling at the incision site Call your doctor if you observe: Fever of 101 or Higher, Inability to urinate, Inability to have a bowel movement and Uncontrolled pain Cleanse incision/area with: Keep Dressing Clean & Dry Additional Dressing/Incision Instructions:: ok for bacitracin to biopsy site Follow Up Care Please Follow Up With: Della Andrade MD When: in 1 week, call for appt Test Results: Test results from this visit will be discussed in further detail at your follow-up appointment, if applicable. Discharge Plan Admission Attending Provider: Della Andrade Primary Care Provider: Da Weber Discharge Orders/Prescriptions Prescriptions: New ondansetron HCl [ondansetron HCl] 8 MG tablet 8 mg PO Q8H PRN PRN (Reason: Nausea) 7 Days Qty: 20 RF: 0 oxycodone-acetaminophen [oxycodone-acetaminophen] 1 TABLET tablet 2 tab PO Q8H PRN PRN (Reason: Pain) 7 Days Qty: 20 RF: 0 cephalexin [cephalexin] 500 MG capsule 500 mg PO Q12 3 Days Qty: 6 RF: 0 Continued d-mannose Powder 1 ea PO DAILY RF: 0 buspirone 5 MG tablet 15 mg PO BID RF: 0 levothyroxine 25 MCG tablet 125 mcg PO DAILY RF: 0 mirabegron 25 mg tablet extended release 24 hr 50 mg PO 1400 RF: 0 bupropion HCl 150 mg tablet sustained-release 12 hr 300 mg PO 1400 RF: 0 L.acidoph, paracasei,B. lactis 1 EACH capsule 1 ea PO DAILY RF: 0 omeprazole 20 MG capsule 20 mg PO DAILY RF: 0 aspirin 81 MG tablet,delayed release (DR/EC) 81 mg PO DAILY RF: 0 fmrscq-zlhla-p.lazp-sdz-ifmcgn 120-0.12-10.8 mg Tablet 1 tab PO PRN PRN (Reason: Bladder Spasms) RF: 0 Other Ambulatory Orders: 12 Lead EKG (Routine) Timeframe: [id number] Location: None Selected Ordered By: Dr. Yovanny El Referrals / Follow Up: Da Weber MD [Primary Care Provider] - Disposition Disposition (needs filled in before D/C Order can be placed): Home, Self Care
--- NOTE | 2021-02-22 10:10 | PCM.OPRPT ---
Problems Associated Problem List Diagnoses (1) Interstitial cystitis: (2) UTI (urinary tract infection): Report of Operation Date of Procedure: 02/22/21 Pre-Operative Diagnosis: Interstitial cystitis, urinary tract infections Post-Operative Diagnosis: Same, vaginal lesion Surgery/Procedure Performed:: Cystoscopy, hydrodistention, vaginal punch biopsy Surgeon: Della Andrade Type of Anesthesia: General and Local Specimen's removed: Vaginal biopsy Description of Procedure: The patient is a 55-year-old female who has been having recurrent urinary tract infections with flaring of her interstitial cystitis. She now presents for repeat cystoscopy with hydrodistention under anesthesia. Informed consent was obtained. The patient was taken the operating room and placed on the operating room table. Anesthesia monitored the head, neck, airway, IV access and vital signs throughout the case. Once anesthesia was appropriately ministered, the patient was placed into dorsal lithotomy position was prepped and draped in usual sterile fashion. On the area of the right labia a bright erythematous flat skin lesion was identified. It was approximately 1 cm in diameter. At this time the cystoscope was inserted through the urethra under direct visualization into the urinary bladder. The bladder mucosa was visualized in its entirety and found to be without areas of erythema consistent with ulcerations. There were no masses, foreign body or other abnormalities identified. At this time the bladder was filled to capacity and left to sit for 2 minutes. It was measured at 650 cc. Upon reentry into the urinary bladder there are multiple glomerulations identified. The bladder is again filled to capacity and allowed to sit for 2 minutes. Upon emptying there was no terminal hematuria identified and the capacity was once again measured just under 700 cc. At this time adhesions with buildup of smegma was identified under the clitoral presley. This area was cleansed using gauze and sterile saline. The skin lesion of the right side of the vagina was infiltrated in the submucosal area with 1% lidocaine with epinephrine. A punch biopsy 3 mm in size was then taken of this lesion and sent for pathologic evaluation. Bacitracin was then applied to the biopsy site. The patient was awakened and taken to the recovery room in good condition. There were no complications during the procedure. Grafts/Implants Used: None Complications None Admit VTE Documentation VTE Present on Admission: Yes VTE Mechan Device Prophylaxis: SCD's VTE Pharm Prophylaxis ordered?: No Reason prophylaxis not ordered:: Treatment Not Indicated
[2021-02-22] MEDS: oxyCODONE 5 MG Tablet PO (11:41)
[2021-02-22] MEDS: Acetaminophen 325 MG Tablet PO (11:41)
== END 2021-02-22 12:47 | disposition home or self-care (01) ==
LOC: SDC 08:17 → AC 08:19
PROVIDERS: Anesthesiology; PCP Family Medicine; Referring Provider Urology; Visit Provider Urology
PROC: 0TBB8ZX Excision of Bladder, Via Natural or Artificial Opening Endoscopic, Diagnostic (ICD-10-PCS; CPT 11104; principal; 2021-02-22 09:30)
DX: N30.10 Interstitial cystitis (chronic) without hematuria (principal); L83 Acanthosis nigricans; R23.4 Changes in skin texture; I10 Essential (primary) hypertension; R73.03 Prediabetes; D47.3 Essential (hemorrhagic) thrombocythemia; E07.9 Disorder of thyroid, unspecified; K21.9 Gastro-esophageal reflux disease without esophagitis; F41.9 Anxiety disorder, unspecified; F32.9 Major depressive disorder, single episode, unspecified; Z79.899 Other long term (current) drug therapy; Z79.82 Long term (current) use of aspirin; Z78.0 Asymptomatic menopausal state; Z87.440 Personal history of urinary (tract) infections
CPT/HCPCS: 11104; 52260; 36415; 84443; 85027; 88305; 88312; 93005; J7120; J2405

== ENCOUNTER 2021-07-11 14:34 | Outpatient (CLI) | payer MEDICAID, SELFPAY ==
[2021-07-11 17:41] LABS: Hematocrit 42.4 % (37-47); Hemoglobin 11.3 g/dL (12.0-15.0); Mean Corp Hgb Conc 26.7 g/dL (32-36); Mean Corpuscular Hgb 17.5 pg (27.0-32.0); Mean Corpuscular Volume 65.5 fL (81-99); Mean Platelet Vol. 8.6 fl (6.2-12.0); POSITIVE COUNT YES; POSITIVE MORPHOLOGY YES; RBC Distribution Width CV 25.9 % (11.6-14.6); RBC Distribution Width SD 55.6 fl (35.1-43.9); Red Blood Count 6.47 M/mm3 (4.2-5.4); White Blood Count 25.2 K/mm3 (4.4-11.0)
[2021-07-11 17:57] LABS: Anion Gap 5 (5-15); BUN 9 mg/dL (7-18); Calcium,Total 8.7 mg/dL (8.5-10.1); Chloride 102 mmol/L (98-107); Creatinine, Serum 0.69 mg/dL (0.55-1.02); EST Glomerular Filtration Rate 94 mL/min (>60); Est Glom Filt Rate - Afr Amer 113 mL/min (>60); Glucose 118 mg/dL (74-106); Potassium 3.9 mmol/L (3.5-5.1); Sodium Level 138 mmol/L (136-145)
[2021-07-11 18:11] LABS: Platelet Count 937 K/mm3 (150-450)
[2021-07-11 18:22] LABS: Scan Indicated on CBC? Y/N YES- FLAGS NOTED
[2021-07-15 12:40] LABS: Pathologist Review Reviewed
== END 2021-07-11 23:59 | disposition home or self-care (01) ==
LOC: MTLAB 14:36
PROVIDERS: PCP Family Medicine; Referring Provider Urology; Visit Provider Urology
DX: N39.0 Urinary tract infection, site not specified (principal)
CPT/HCPCS: 36415; 80048; 85027

== ENCOUNTER → 2021-12-09 | Outpatient (CLI) | payer MEDICAID, SELFPAY ==
--- NOTE | 2021-12-09 13:31 | BI_ITS ---
MAMMOGRAPHY - BILATERAL SCREENING REASON FOR EXAM: Female, 56 years old. Routine annual screening examination. PERTINENT HISTORY: Non-contributory. TECHNIQUE: Digital bilateral breast ed (3D mammographic acquisition) in the CC and MLO projections. 2-D mediolateral oblique (MLO) and craniocaudad (CC) views of both breasts were obtained. CAD: Full Field Digital Mammography with Computer Added Detection was performed. COMPARISON: Comparison is made with prior study dated 11/05/2020 and 02/16/2019. FINDINGS: Breast Composition: The breasts are almost entirely fatty. There are no dominant masses or suspicious calcifications. Stable small benign appearing bilateral axillary nodes. No other significant abnormalities are identified. There has been no significant change since the prior study. BI/SCRN MAMM (CAD)W/ED BILAT IMPRESSION: Stable bilateral screening mammogram. Yearly follow-up mammogram recommended. (A) ASSESSMENT CATEGORY: BIRADS Category 2: Benign. A letter regarding these results will be sent to the patient by the facility within 30 days. Approximately 10% of breast cancers are not detected by mammography. A normal mammogram should not delay biopsy of a clinically suspicious abnormality. [id number] Electronically Signed: Leo Tipton MD at 14:45 EDT ,
== END | disposition home or self-care (01) ==
LOC: OPBI 13:29
PROVIDERS: PCP Family Medicine; Visit Provider Family Medicine
DX: Z12.31 Encounter for screening mammogram for malignant neoplasm of breast (principal)
CPT/HCPCS: 77063; 77067

== ENCOUNTER 2022-09-24 06:57 | Emergency (ER) | payer MEDICAID, SELFPAY ==
[2022-09-24 06:58] VITALS: BP 171/65; PULSE 97; RESP 16; TEMP 35.6; O2SAT 97; BMI 44.2
--- NOTE | 2022-09-24 07:32 | ED.VIS.LOWEX ---
HPI History of Present Illness HPI Narrative: Patient presents with right hip pain that began today. Patient states it began suddenly when she woke up today. Patient does not remember any trauma or injury. Patient states it began rather suddenly. Patient describes her pain as sharp. Patient states it is worse with movement and better with rest. Patient denies any paresthesias or weakness. Patient states the pain does radiate to the medial aspect of her right thigh. Patient denies any back pain. Patient denies any bowel or bladder changes. Patient denies any saddle anesthesia. Chief Complaint: Lower Extremity Injury Informant: patient Onset/Context/Timing Onset: Today Context: Sudden Onset Timing: Continuous Quality of Pain: Sharp Location: Right hip and thigh Worsened by: Movement Relieved by: Rest Associated Symptoms Associated Symptoms: Negative for Parasthesia, Weakness or Loss of Funtion PFSH [facility] Medical History Acute maxillary sinusitis, unspecified Anxiety Back pain Bladder distention Cancer Depression Essential thrombocythemia Gastric reflux History of stress test Hypertension Injury of back Interstitial cystitis Knee pain Low iron Malignant tumor of kidney Non-smoker Post-menopausal Pre-diabetes Severe headache Shoulder pain Stomach ulcer Thyroid disease Thyroid disease Vaginal candidiasis Home Medications buspirone 5 mg tablet 15 mg PO BID ANXIETY 08/28/15 [History Last Taken 01/15/19] mirabegron 25 mg tablet,extended release 24 hr 50 mg PO 1400 BLADDER 05/31/18 [History Last Taken 01/15/19] L.acidoph, paracasei,B. lactis 10 billion cell capsule 1 ea PO DAILY [facility] 01/16/19 [History Last Taken 01/16/19] bupropion HCl 150 mg tablet,12 hr sustained-release 300 mg PO 1400 DEPRESSION 02/19/19 [History Last Taken Unknown] aspirin 81 mg tablet,delayed release 81 mg PO DAILY 07/04/19 [History Last Taken 02/10/21] d-mannose 1 ea PO DAILY 02/28/20 [History Last Taken Unknown] arqrcvpuso-cvsht-n.vsne-mxjbqsmd-pefgde 120 mg-0.12 mg-10.8 mg tablet 1 tab PO PRN PRN Bladder Spasms 02/15/21 [History Last Taken Unknown] cephalexin 500 mg capsule 500 mg PO Q12 post-operative 3 days #6 CAPSULES 02/22/21 [Rx Last Taken Unknown] buspirone 15 mg tablet 15 mg PO BID 12/03/21 [History Last Taken Unknown] doxepin 10 mg capsule 10 mg PO QHS 12/03/21 [History Last Taken Unknown] levothyroxine 150 mcg tablet 150 mcg PO DAILY 12/03/21 [History Last Taken Unknown] levothyroxine 25 mcg tablet 150 mcg PO DAILY THYROID 12/03/21 [History Last Taken Unknown] omeprazole 40 mg capsule,delayed release 40 mg PO DAILY 12/03/21 [History Last Taken Unknown] hydrocodone-acetaminophen 5-325mg 5mg-325mg 1 tab PO Q6H PRN PRN Pain 3 days #10 TABLETS 09/24/22 [Rx Last Taken Unknown] Allergy/AdvReac Type Severity Reaction Status Date / Time ketorolac tromethamine Allergy Severe Hives Verified 09/24/22 07:00 [From Toradol] solifenacin succinate Allergy Severe Hives Verified 09/24/22 07:00 [From Vesicare] erythromycin base AdvReac Severe Nausea/Vom/ Verified 09/24/22 07:00 [Erythromycin Base] Diarrhea celecoxib [From Celebrex] AdvReac Intermediate Nausea/Vom/ Verified 09/24/22 07:00 Diarrhea diphenhydramine HCl AdvReac Mild Other Verified 09/24/22 07:00 [From Benadryl] lisinopril AdvReac Mild Vomiting Verified 09/24/22 07:00 Family History Father Diabetes Heart disease Hypertension Grandmother Cancer Surgical History History of cholecystectomy History of root canal procedure partial kidney removed Social History number of children: 0 current occupational status: employed current occupation: [employer] Smoking Status: Never smoker alcohol intake: never substance use type: does not use seatbelt use: sometimes do you feel safe at home: Yes additional social history: single ROS ROS ED Constitutional Constitutional ED: Denies chills or fever(s) Eyes Eyes: Denies blurry vision or change in vision ENT ENT ED: Denies rhinorrhea or sore throat Cardiovascular Cardiovascular: Denies chest pain or palpitations Respiratory/Chest Respiratory/Chest: Denies cough or dyspnea Gastrointestinal Gastrointestinal: Denies nausea or vomiting Genitourinary Genitourinary ED: Denies dysuria or hematuria Musculoskeletal Musculoskeletal: Denies back pain or neck pain Integumentary Denies abscess or rash Neurologic Neurologic: Denies headache(s) or weakness Allergic/Immunologic Allergic/Immunologic ED: Denies mouth swelling or urticaria EXAM Physical Exam Const Vital Signs: 09/24/22 06:58 Temperature 96.1 F L Temperature Source Temporal Pulse Rate 97 Respiratory Rate 16 Blood Pressure 171/65 H Blood Pressure Mean 100 Pulse Ox 97 Oxygen Delivery Method Room Air Positive well nourished, well developed and obese General Appearance ED: well developed and NAD Nutritional Appearance: obese HEENT Reports moist mucous membranes Neck full ROM and supple Extremity Extremity Narrative: There is tenderness over the anterior aspect of the right hip. There is also mild tenderness over the medial thigh. There is no bony crepitance or step-off. Range of motion was limited in all motions of the right hip secondary to pain. Strength is 5/5 bilaterally in the lower extremities. There are no sensory deficits noted. Pedal pulses are equal bilaterally. There is no calf tenderness or edema noted. Neuro oriented x3, CN's II-XII intact bilaterally, moves all extremities and no sensory deficits noted Sensorium / Orientation: alert Motor Exam: strength 5/5 throughout Psych mental status grossly normal MDM MDM MDM Narrative Medical decision making narrative: Differential diagnosis includes degenerative arthritis, muscle strain, tendinitis, and occult fracture. X-rays of the right hip will be obtained to assess for occult fracture and arthritis. Radiography Diagnostic Testing: Clinical Impression(s) from Imaging Studies Hip/Pelvis X-Ray 09/24/22 07:36 IMPRESSION: No acute fracture or subluxation. Hip impingement to be excluded. Electronically Signed: Houston Ralph MD at 8:12 EDT , X-rays of the right hip were obtained. There are 3 views. On my independent interpretation, there is no acute fracture or dislocation. There are some degenerative changes noted. Radiologist also interpreted the x-rays and agrees. Treatment and Re-Evaluation Narrative: Patient was given a dose of [place] here. Patient was advised of her findings. Patient was instructed to use ice to the area. Patient was given a prescription for [place]. Patient was given a note for work. Patient was instructed to follow-up with her primary care physician in 5 to 7 days. Patient was instructed return if worse in any way. Patient understood and was agreeable with the plan. All questions were answered. Discharge Plan Triage Chief Complaint: Lower Extremity Injury ED Provider: Niels Boudreaux Dx/Rx/DC Orders Clinical Impression: Strain of right hip, Arthritis of right hip Instructions: ED Hip Strain Prescriptions: New hydrocodone-acetaminophen [hydrocodone-acetaminophen] 5-325 mg tablet 1 tab PO Q6H PRN PRN (Reason: Pain) 3 Days Qty: 10 0RF No Action d-mannose Powder 1 ea PO DAILY doxepin 10 mg capsule 10 mg PO QHS buspirone 15 mg tablet 15 mg PO BID levothyroxine 150 mcg tablet 150 mcg PO DAILY omeprazole 40 mg capsule,delayed release(DR/EC) 40 mg PO DAILY buspirone 5 MG tablet 15 mg PO BID mirabegron 25 mg tablet extended release 24 hr 50 mg PO 1400 bupropion HCl 150 mg tablet sustained-release 12 hr 300 mg PO 1400 levothyroxine 25 mcg tablet 150 mcg PO DAILY L.acidoph, paracasei,B. lactis 1 EACH capsule 1 ea PO DAILY aspirin 81 MG tablet,delayed release (DR/EC) 81 mg PO DAILY [id number]-dcgtb-f.oppv-qoj-mbwhni 120-0.12-10.8 mg Tablet 1 tab PO PRN PRN (Reason: Bladder Spasms) cephalexin [cephalexin] 500 MG capsule 500 mg PO Q12 3 Days Qty: 6 0RF Stand Alone Forms: ED Work / School Excuse Primary Care Provider: Da Weber Referrals: Da Weber MD [Primary Care Provider] - 5-7 Days Disposition Disposition: Home, Self Care
--- NOTE | 2022-09-24 07:36 | RAD_ITS ---
EXAM: XR RIGHT HIP WITH PELVIS WHEN PERFORMED, 2 OR 3 VIEWS CLINICAL INDICATION: Injury/Pain TECHNIQUE: Two or three views of the right hip with pelvis when performed. COMPARISON: No relevant prior studies available. FINDINGS: BONES/JOINTS: No acute fracture or subluxation. Moderate bony spurring along both hips without significant joint space narrowing. Hip impingement to be excluded. SOFT TISSUES: Normal. No soft tissue swelling or gas. RAD/HIP, UNI W/ Pelvis 2-3 Views IMPRESSION: No acute fracture or subluxation. Hip impingement to be excluded. Electronically Signed: Houston Ralph MD at 8:12 EDT ,
[2022-09-24] MEDS: HYDROcodone Bitartrate/Apap 5/325 Tablet PO (07:42)
[2022-09-24 09:06] VITALS: PULSE 86; RESP 14; O2SAT 97
== END 2022-09-24 09:10 | disposition home or self-care (01) ==
PROVIDERS: Emergency Provider Emergency Medicine; PCP Family Medicine; Visit Provider Emergency Medicine
DX: S76.011A Strain of muscle, fascia and tendon of right hip, initial encounter (principal); M16.11 Unilateral primary osteoarthritis, right hip; X58.XXXA Exposure to other specified factors, initial encounter; I10 Essential (primary) hypertension; E07.9 Disorder of thyroid, unspecified; Z79.82 Long term (current) use of aspirin; Z79.890 Hormone replacement therapy; Z79.899 Other long term (current) drug therapy
CPT/HCPCS: 73502; 99283

== ENCOUNTER → 2022-12-31 | Outpatient (CLI) | payer MEDICAID, SELFPAY ==
--- NOTE | 2022-12-31 14:11 | BI_ITS ---
MAMMOGRAPHY - BILATERAL SCREENING REASON FOR EXAM: Female, 57 years old. Routine annual screening examination. PERTINENT HISTORY: Non-contributory. TECHNIQUE: Digital bilateral breast ed (3D mammographic acquisition) in the CC and MLO projections. 2-D mediolateral oblique (MLO) and craniocaudad (CC) views of both breasts were obtained. CAD: Full Field Digital Mammography with Computer Added Detection was performed. COMPARISON: Comparison is made with prior study dated December 09, 2021 and November 05, 2020. FINDINGS: Breast Composition: The breasts are almost entirely fatty. There are no dominant masses or suspicious calcifications. Stable benign-appearing bilateral axillary lymph nodes. No other significant abnormalities are identified. There has been no significant change since the prior study. BI/SCRN MAMM (CAD)W/ED BILAT IMPRESSION: Stable bilateral screening mammogram. Yearly follow-up mammogram recommended. (A) ASSESSMENT CATEGORY: BIRADS Category 2: Benign. A letter regarding these results will be sent to the patient by the facility within 30 days. Approximately 10% of breast cancers are not detected by mammography. A normal mammogram should not delay biopsy of a clinically suspicious abnormality. [id number] Electronically Signed: Leo Tipton MD at 15:10 EDT ,
== END | disposition home or self-care (01) ==
LOC: OPBI 14:10
PROVIDERS: PCP Family Medicine; Referring Provider Registered Nurse; Visit Provider Registered Nurse
DX: Z12.31 Encounter for screening mammogram for malignant neoplasm of breast (principal)
CPT/HCPCS: 77063; 77067

== ENCOUNTER 2023-01-16 14:00 | Emergency (ER) | payer MEDICAID, SELFPAY ==
[2023-01-16 14:01] VITALS: BP 151/67; PULSE 93; RESP 16; TEMP 35.9; O2SAT 93; BMI 42.0
== END 2023-01-16 15:55 | disposition left against medical advice (07) ==
LOC: ED 16:09
PROVIDERS: PCP Family Medicine
DX: Z53.21 Procedure and treatment not carried out due to patient leaving prior to being seen by health care provider (principal)

== ENCOUNTER 2023-01-16 22:26 | Emergency (ER) | payer MEDICAID, SELFPAY ==
[2023-01-16 22:27] VITALS: BP 182/85; PULSE 98; RESP 16; TEMP 36.4; O2SAT 99; BMI 41.7
--- NOTE | 2023-01-16 22:41 | EX.ED.DYSGE1 ---
HPI History of Present Illness Chief Complaint: Rash Informant: patient Narrative Narrative: Patient presents with a rash to bilateral lower shins. This started about a day or so ago. It is very pruritic. She was seen in urgent care. They gave her Pepcid. They gave her Medrol Dosepak but she states when she takes steroids she gets nauseated. She does not feel she can continue taking them even if I provide medicine for nausea. I will give her something here though to help current symptoms. But she states nausea started only after the Medrol. She thinks Benadryl helped. She says overall the rash is getting better. But she states she has the rash visible on the ramirez but she has itching in the shins arms top of her head and other areas. She feels itchy all over. No trouble breathing. No abdominal pain nausea vomiting. She is not diabetic also. She cannot think of any new exposures or chemicals or meds. [facility] Medical History Acute maxillary sinusitis, unspecified Anxiety Back pain Bladder distention Cancer Depression Essential thrombocythemia Gastric reflux History of stress test Hypertension Injury of back Interstitial cystitis Iron deficiency Knee pain Leukocytosis Low iron Malignant tumor of kidney Non-smoker Post-menopausal Pre-diabetes Severe headache Shoulder pain Stomach ulcer Thrombocytosis Thyroid disease Thyroid disease Vaginal candidiasis Home Medications buspirone 5 mg tablet 15 mg PO BID ANXIETY 08/28/15 [History Last Taken 01/15/19] mirabegron 25 mg tablet,extended release 24 hr 50 mg PO 1400 BLADDER 05/31/18 [History Last Taken 01/15/19] L.acidoph, paracasei,B. lactis 10 billion cell capsule 1 ea PO DAILY [facility] 01/16/19 [History Last Taken 01/16/19] bupropion HCl 150 mg tablet,12 hr sustained-release 300 mg PO 1400 DEPRESSION 02/19/19 [History Last Taken Unknown] aspirin 81 mg tablet,delayed release 81 mg PO DAILY 07/04/19 [History Last Taken 02/10/21] d-mannose 1 ea PO DAILY 02/28/20 [History Last Taken Unknown] zkmuysfecl-qcule-d.yyds-pdprjovq-qttbfy 120 mg-0.12 mg-10.8 mg tablet 1 tab PO PRN PRN Bladder Spasms 02/15/21 [History Last Taken Unknown] buspirone 15 mg tablet 15 mg PO BID 12/03/21 [History Last Taken Unknown] doxepin 10 mg capsule 10 mg PO QHS 12/03/21 [History Last Taken Unknown] levothyroxine 150 mcg tablet 150 mcg PO DAILY 12/03/21 [History Last Taken Unknown] levothyroxine 25 mcg tablet 150 mcg PO DAILY THYROID 12/03/21 [History Last Taken Unknown] omeprazole 40 mg capsule,delayed release 40 mg PO DAILY 12/03/21 [History Last Taken Unknown] ondansetron 4 mg disintegrating tablet 4 mg PO Q8H PRN PRN Nausea #10 tabs 01/16/23 [Rx Last Taken Unknown] Allergy/AdvReac Type Severity Reaction Status Date / Time ketorolac tromethamine Allergy Severe Hives Verified 01/06/23 14:57 [From Toradol] solifenacin succinate Allergy Severe Hives Verified 01/06/23 14:57 [From Vesicare] erythromycin base AdvReac Severe Nausea/Vom/ Verified 01/06/23 14:57 [Erythromycin Base] Diarrhea celecoxib [From Celebrex] AdvReac Intermediate Nausea/Vom/ Verified 01/06/23 14:57 Diarrhea lisinopril AdvReac Mild Vomiting Verified 01/06/23 14:57 Family History Father Diabetes Heart disease Hypertension Grandmother Cancer Surgical History History of cholecystectomy History of root canal procedure partial kidney removed Social History number of children: 0 current occupational status: employed current occupation: [employer] Smoking Status: Never smoker alcohol intake: never substance use type: does not use seatbelt use: sometimes do you feel safe at home: Yes additional social history: single ROS ROS ED Constitutional Constitutional ED: Denies chills, fever(s), subjective or sweats Eyes Eyes: Denies change in vision ENT ENT ED: Denies ear pain, rhinorrhea or sore throat Cardiovascular Cardiovascular: Denies chest pain Respiratory/Chest Respiratory/Chest: Denies cough or dyspnea Gastrointestinal Gastrointestinal: Reports nausea; Denies abdominal pain or vomiting Musculoskeletal Musculoskeletal: Denies back pain or myalgias Integumentary Reports rash Neurologic Neurologic: Denies paresthesias or weakness Psychiatric Psychiatric: Reports anxiety Hematologic/Lymphatic Hematologic/Lymphatic: Denies easy bleeding or easy bruising Allergic/Immunologic Allergic/Immunologic ED: Denies urticaria EXAM Physical Exam Narrative Exam Narrative: Patient awake alert comfortable sitting in bed. She walked back to the room without difficulties. HEENT shows no sign of swelling or redness. Intraoral area shows normal moist mucous membranes. No rash. No petechiae. Voice is normal. Eyes show no injection or icterus. Neck is supple and no stridor. Heart is regular. No murmur. Lungs are clear and there is no wheezing. Abdomen is obese but benign. Extremities show no deformity or swelling. Skin does show some lacy erythema to the anterior shins mostly lower. It blanches easily. Although she has history of thrombocytosis, she just saw her clinical education academic coordinator and her platelets were above normal but low for her. But these are not petechiae or purpura at all. I do not see rashes anywhere else. They are very mild also. Const Vital Signs: 01/16/23 22:27 Temperature 97.5 F L Temperature Source Temporal Pulse Rate 98 Respiratory Rate 16 Blood Pressure 182/85 H Blood Pressure Mean 117 Pulse Ox 99 Oxygen Delivery Method Room Air MDM MDM MDM Narrative Medical decision making narrative: I discussed options with the patient. I explained that there are limited medicines for allergic reaction. She can take Pepcid once a day. She already has Benadryl at home and feels that that worked the best. I explained how she can take that and how much. I explained she does not need epinephrine. I can certainly give her a shot of Kenalog that would bypass the nausea that she gets with steroids. She would like to do this. I do not think she needs imaging or labs at this time. Discharge Plan Triage Chief Complaint: Rash ED Provider: Paco Miller Dx/Rx/DC Orders Clinical Impression: Rash, Pruritus Instructions: ED General Allergic Reactions Prescriptions: New ondansetron [ondansetron] 4 mg tablet,disintegrating 4 mg PO Q8H PRN PRN (Reason: Nausea) Qty: 10 0RF No Action d-mannose Powder 1 ea PO DAILY doxepin 10 mg capsule 10 mg PO QHS buspirone 15 mg tablet 15 mg PO BID levothyroxine 150 mcg tablet 150 mcg PO DAILY omeprazole 40 mg capsule,delayed release(DR/EC) 40 mg PO DAILY buspirone 5 MG tablet 15 mg PO BID mirabegron 25 mg tablet extended release 24 hr 50 mg PO 1400 bupropion HCl 150 mg tablet sustained-release 12 hr 300 mg PO 1400 levothyroxine 25 mcg tablet 150 mcg PO DAILY L.acidoph, paracasei,B. lactis 1 EACH capsule 1 ea PO DAILY aspirin 81 MG tablet,delayed release (DR/EC) 81 mg PO DAILY pzlxtm-rofec-i.mlss-jxg-ccllfc 120-0.12-10.8 mg Tablet 1 tab PO PRN PRN (Reason: Bladder Spasms) Primary Care Provider: Da Weber Referrals: Da Weber MD [Primary Care Provider] - 3-5 Days Disposition Disposition: Home, Self Care
[2023-01-16] MEDS: Ondansetron ODT 4 MG Tablet PO (22:56)
[2023-01-16] MEDS: Triamcinolone Acetonide 40 MG/ML Vial IM (22:56)
== END 2023-01-16 22:59 | disposition home or self-care (01) ==
PROVIDERS: Emergency Provider Emergency Medicine; PCP Family Medicine; Visit Provider Emergency Medicine
DX: L29.9 Pruritus, unspecified (principal); I10 Essential (primary) hypertension; R11.0 Nausea
CPT/HCPCS: 96372; 99283

== ENCOUNTER 2023-01-28 13:27 | Emergency (ER) | payer MEDICAID, SELFPAY ==
[2023-01-28 13:29] VITALS: BP 162/82; PULSE 101; RESP 20; TEMP 36.4; O2SAT 96; BMI 41.0
--- NOTE | 2023-01-28 14:07 | VDLE_ITS ---
Reason For Study: Pain RLE RIGHT GSV is normal. CFV is compressible, spontaneous, phasic, competent and demonstrates normal augmentation. FV is compressible, spontaneous, phasic, competent and demonstrates normal augmentation. POP V is compressible, spontaneous, phasic, competent and demonstrates normal augmentation. T/P Trunk is compressible. PTV is compressible. RT PerV is compressible. Procedure This is a venous duplex using B-mode, color flow and spectral Doppler. Exam performed portable in ED. A preliminary report was called and/or faxed to Dr. Miller. VL/Venous Duplex US, Unilateral Interpretation Summary There is no evidence of right lower extremity deep vein thrombosis. Right great saphenous vein appears patent and compressible segmentally. Ordering Physician: Paco Miller Referring Physician: Da Weber Performed By: Makenzie Lion, EVELINA, RVT
--- NOTE | 2023-01-28 14:12 | ED.VIS.LOWEX ---
HPI History of Present Illness Chief Complaint: Lower Extremity Injury Informant: patient Narrative Narrative: Presents with soreness to her right posterior lateral calf. Patient states she thinks this is just a cramp. But she has a history of thrombocytosis and she is always told to be careful of clots. But she has never had a DVT or PE. No recent trauma that she knows of. No long travel surgery or immobilization. She has some pain and cramping in the posterior right side of her calf up near her knee. 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 No chest pain or trouble breathing. Her last platelets were in the upper 700,000's which are good for her. [facility] Medical History Acute maxillary sinusitis, unspecified Anxiety Back pain Bladder distention Cancer Depression Essential thrombocythemia Gastric reflux History of stress test Hypertension Injury of back Interstitial cystitis Iron deficiency Knee pain Leukocytosis Low iron Malignant tumor of kidney Non-smoker Post-menopausal Pre-diabetes Severe headache Shoulder pain Stomach ulcer Thrombocytosis Thyroid disease Thyroid disease Vaginal candidiasis Home Medications buspirone 5 mg tablet 15 mg PO BID ANXIETY 08/28/15 [History Last Taken 01/15/19] mirabegron 25 mg tablet,extended release 24 hr 50 mg PO 1400 BLADDER 05/31/18 [History Last Taken 01/15/19] L.acidoph, paracasei,B. lactis 10 billion cell capsule 1 ea PO DAILY [facility] 01/16/19 [History Last Taken 01/16/19] bupropion HCl 150 mg tablet,12 hr sustained-release 300 mg PO 1400 DEPRESSION 02/19/19 [History Last Taken Unknown] aspirin 81 mg tablet,delayed release 81 mg PO DAILY 07/04/19 [History Last Taken 02/10/21] d-mannose 1 ea PO DAILY 02/28/20 [History Last Taken Unknown] methenamine 120 mg-methyl.blue 10.8 mg-sod phos-phenyl berny-hyos tablet 1 tab PO PRN PRN Bladder Spasms 02/15/21 [History Last Taken Unknown] buspirone 15 mg tablet 15 mg PO BID 12/03/21 [History Last Taken Unknown] doxepin 10 mg capsule 10 mg PO QHS 12/03/21 [History Last Taken Unknown] levothyroxine 150 mcg tablet 150 mcg PO DAILY 12/03/21 [History Last Taken Unknown] levothyroxine 25 mcg tablet 150 mcg PO DAILY THYROID 12/03/21 [History Last Taken Unknown] omeprazole 40 mg capsule,delayed release 40 mg PO DAILY 12/03/21 [History Last Taken Unknown] ondansetron 4 mg disintegrating tablet 4 mg PO Q8H PRN PRN Nausea #10 tabs 01/16/23 [Rx Last Taken Unknown] Allergy/AdvReac Type Severity Reaction Status Date / Time ketorolac tromethamine Allergy Severe Hives Verified 01/28/23 13:29 [From Toradol] solifenacin succinate Allergy Severe Hives Verified 01/28/23 13:29 [From Vesicare] erythromycin base AdvReac Severe Nausea/Vom/ Verified 01/28/23 13:29 [Erythromycin Base] Diarrhea celecoxib [From Celebrex] AdvReac Intermediate Nausea/Vom/ Verified 01/28/23 13:29 Diarrhea lisinopril AdvReac Mild Vomiting Verified 01/28/23 13:29 Family History Father Diabetes Heart disease Hypertension Grandmother Cancer Surgical History History of cholecystectomy History of root canal procedure partial kidney removed Social History number of children: 0 current occupational status: employed current occupation: [employer] Smoking Status: Never smoker alcohol intake: never substance use type: does not use seatbelt use: sometimes do you feel safe at home: Yes additional social history: single ROS ROS ED Constitutional Constitutional ED: Denies chills or fever(s) Cardiovascular Cardiovascular: Denies chest pain, palpitations or racing heartbeat Respiratory/Chest Respiratory/Chest: Denies cough or dyspnea Gastrointestinal Gastrointestinal: Denies abdominal pain, nausea or vomiting Genitourinary Genitourinary ED: Denies hematuria Musculoskeletal Musculoskeletal: Reports myalgias; Denies arthralgias, back pain or neck pain Integumentary Reports other Details: Patient for a rash recently but that has fully resolved. ; Denies rash Neurologic Neurologic: Denies headache(s) or paresthesias Endocrine Endocrinology: Denies polyuria Hematologic/Lymphatic Hematologic/Lymphatic: Denies easy bleeding or easy bruising Allergic/Immunologic Allergic/Immunologic ED: Denies urticaria EXAM Physical Exam Narrative Exam Narrative: Alert no acute distress sitting comfortably on bed. HEENT shows no swelling or bruising. No petechiae. Neck shows no JVD Heart is regular. Lungs are clear with normal saturations at 96% on room air showing no hypoxia. Extremities show no swelling. There is no asymmetry. No palpable cord but there is tenderness at the proximal third of the calf on her right. But is just the lateral aspect. I do not notice any definitive fullness behind her knee consistent with a Armijo's cyst. Distal pulses sensation are normal. No rash at this time. Const Vital Signs: 01/28/23 13:29 Temperature 97.5 F L Temperature Source Temporal Pulse Rate 101 H Respiratory Rate 20 H Blood Pressure 162/82 H Blood Pressure Mean 108 Pulse Ox 96 Oxygen Delivery Method Room Air MDM MDM MDM Narrative Medical decision making narrative: I talked with the exhibit technician. There is no indication of DVT mass Armijo's cyst or any other abnormality. Patient feels as though this might be a muscle cramp. But she has none in other areas. She has no bruising. No swelling. I do not think blood work is needed at this time as she has an isolated localized symptom. Discharge Plan Triage Chief Complaint: Lower Extremity Injury ED Provider: Paco Miller Dx/Rx/DC Orders Clinical Impression: Calf cramp, Essential thrombocythemia Instructions: ED Leg Spasm Prescriptions: No Action d-mannose Powder 1 ea PO DAILY doxepin 10 mg capsule 10 mg PO QHS buspirone 15 mg tablet 15 mg PO BID levothyroxine 150 mcg tablet 150 mcg PO DAILY omeprazole 40 mg capsule,delayed release(DR/EC) 40 mg PO DAILY buspirone 5 MG tablet 15 mg PO BID mirabegron 25 mg tablet extended release 24 hr 50 mg PO 1400 bupropion HCl 150 mg tablet sustained-release 12 hr 300 mg PO 1400 levothyroxine 25 mcg tablet 150 mcg PO DAILY L.acidoph, paracasei,B. lactis 1 EACH capsule 1 ea PO DAILY aspirin 81 MG tablet,delayed release (DR/EC) 81 mg PO DAILY cliffzoqm-jgzwc-cvv 120-0.12-10.8 mg Tablet 1 tab PO PRN PRN (Reason: Bladder Spasms) ondansetron [ondansetron] 4 mg tablet,disintegrating 4 mg PO Q8H PRN PRN (Reason: Nausea) Qty: 10 0RF Primary Care Provider: Da Weber Referrals: Da Weber MD [Primary Care Provider] - 3-5 Days if not improving Disposition Disposition: Home, Self Care
[2023-01-28] MEDS: HYDROcodone Bitartrate/Apap 5/325 Tablet PO (15:13)
== END 2023-01-28 15:36 | disposition home or self-care (01) ==
PROVIDERS: Emergency Provider Emergency Medicine; PCP Family Medicine; Visit Provider Emergency Medicine
DX: D47.3 Essential (hemorrhagic) thrombocythemia (principal); I10 Essential (primary) hypertension; R25.2 Cramp and spasm; Z79.890 Hormone replacement therapy; Z79.899 Other long term (current) drug therapy; Z79.82 Long term (current) use of aspirin; E07.9 Disorder of thyroid, unspecified; K21.9 Gastro-esophageal reflux disease without esophagitis; R73.03 Prediabetes; F41.9 Anxiety disorder, unspecified; F32.A Depression, unspecified; M79.661 Pain in right lower leg
CPT/HCPCS: 93971; 99283

== ENCOUNTER 2023-09-09 18:47 | Emergency (ER) | payer MEDICAID, SELFPAY ==
[2023-09-09 18:48] VITALS: BP 172/107; PULSE 114; RESP 20; TEMP 36.1; O2SAT 93; BMI 40.2
--- NOTE | 2023-09-09 20:05 | EDS_ITS ---
HPI History of Present Illness Chief Complaint: Allergic Reaction Detail of Chief Complaint: Itching Informant: patient Narrative Narrative: Patient presents to the emergency department with complaint of itching and rash. She states that she finished amoxicillin about a week ago and then she noticed itching and rash. She had a hard time sleeping at night because of all the itching. Patient states that she had a similar issue in January of last year she believes and presented to the emergency department and had a shot of a steroid that really seem to help her within 6 to 8 hours. Patient states that she really cannot tolerate prednisone because it makes her nauseated and does not make her feel good. She is here requesting a shot of steroid that she had got last time. She denies any new soaps or detergents. She denies any other allergens. She denies new medications. [facility] Medical History Acute maxillary sinusitis, unspecified Anxiety Back pain Bladder distention Cancer Depression Essential thrombocythemia Gastric reflux History of stress test Hypertension Injury of back Interstitial cystitis Iron deficiency Knee pain Leukocytosis Low iron Malignant tumor of kidney Non-smoker Post-menopausal Pre-diabetes Severe headache Shoulder pain Stomach ulcer Thrombocytosis Thyroid disease Thyroid disease Vaginal candidiasis Home Medications buspirone 5 mg tablet 15 mg PO BID ANXIETY 08/28/15 [History Last Taken 01/15/19] mirabegron 25 mg tablet,extended release 24 hr 50 mg PO 1400 BLADDER 05/31/18 [History Last Taken 01/15/19] L.acidoph, paracasei,B. lactis 10 billion cell capsule 1 ea PO DAILY [facility] 01/16/19 [History Last Taken 01/16/19] bupropion HCl 150 mg tablet,12 hr sustained-release 300 mg PO 1400 DEPRESSION 02/19/19 [History Last Taken Unknown] aspirin 81 mg tablet,delayed release 81 mg PO DAILY 07/04/19 [History Last Taken 02/10/21] d-mannose 1 ea PO DAILY 02/28/20 [History Last Taken Unknown] methenamine 120 mg-methyl.blue 10.8 mg-sod phos-phenyl berny-hyos tablet 1 tab PO PRN PRN Bladder Spasms 02/15/21 [History Last Taken Unknown] buspirone 15 mg tablet 15 mg PO BID 12/03/21 [History Last Taken Unknown] doxepin 10 mg capsule 10 mg PO QHS 12/03/21 [History Last Taken Unknown] levothyroxine 150 mcg tablet 150 mcg PO DAILY 12/03/21 [History Last Taken Unknown] levothyroxine 25 mcg tablet 150 mcg PO DAILY THYROID 12/03/21 [History Last Taken Unknown] omeprazole 40 mg capsule,delayed release 40 mg PO DAILY 12/03/21 [History Last Taken Unknown] ondansetron 4 mg disintegrating tablet 4 mg PO Q8H PRN PRN Nausea #10 tabs 01/16/23 [Rx Last Taken Unknown] cyclobenzaprine 10 mg tablet 10 mg PO TID PRN Muscle Spasm #15 TABLETS 01/28/23 [Rx Last Taken Unknown] hydrocodone-acetaminophen 5-325mg 5mg-325mg 1 tab PO Q6H PRN PRN Pain 3 days #10 TABLETS 01/28/23 [Rx Last Taken Unknown] hydroxyzine HCl 25 mg tablet 25 mg PO Q6H PRN itching #20 tabs 09/09/23 [Rx Last Taken Unknown] Allergy/AdvReac Type Severity Reaction Status Date / Time ketorolac tromethamine Allergy Severe Hives Verified 09/09/23 18:47 [From Toradol] solifenacin succinate Allergy Severe Hives Verified 09/09/23 18:47 [From Vesicare] erythromycin base AdvReac Severe Nausea/Vom/ Verified 09/09/23 18:47 [Erythromycin Base] Diarrhea celecoxib [From Celebrex] AdvReac Intermediate Nausea/Vom/ Verified 09/09/23 18:47 Diarrhea lisinopril AdvReac Mild Vomiting Verified 09/09/23 18:47 Family History Father Diabetes Heart disease Hypertension Grandmother Cancer Surgical History History of cholecystectomy History of root canal procedure partial kidney removed Social History number of children: 0 current occupational status: employed current occupation: [employer] Smoking Status: Never smoker alcohol intake: never substance use type: does not use seatbelt use: sometimes do you feel safe at home: Yes additional social history: single ROS ROS ED Review of Systems ROS Unobtainable: other Constitutional Constitutional ED: Reports lethargy; Denies chills, fever(s), sweats or weight loss Eyes Eyes: Denies blurry vision, change in vision or diplopia ENT ENT ED: Denies rhinorrhea or sore throat Cardiovascular Cardiovascular: Reports chest pain and racing heartbeat; Denies orthopnea Respiratory/Chest Respiratory/Chest: Denies cough, dyspnea, dyspnea on exertion, orthopnea or sputum Gastrointestinal Gastrointestinal: Denies abdominal pain, diarrhea, nausea or vomiting Genitourinary Genitourinary ED: Denies dysuria, hematuria or urinary frequency Musculoskeletal Musculoskeletal: Denies arthralgias, back pain, myalgias or neck pain Integumentary Reports other Details: Itching ; Denies abscess, Abrasions or rash Neurologic Neurologic: Denies headache(s) or weakness Psychiatric Psychiatric: Denies anxiety, depression or suicidal thoughts Endocrine Endocrinology: Denies polydipsia, polyphagia or polyuria Hematologic/Lymphatic Hematologic/Lymphatic: Denies easy bleeding, easy bruising or lymphadenopathy Allergic/Immunologic Allergic/Immunologic ED: Denies mouth swelling, tongue swelling or urticaria EXAM Physical Exam Const Vital Signs: 09/09/23 18:48 Temperature 97 F L Temperature Source Temporal Pulse Rate 114 H Respiratory Rate 20 H Blood Pressure 172/107 H Blood Pressure Mean 128 Pulse Ox 93 Oxygen Delivery Method Room Air Positive well nourished and well developed General Appearance ED: well developed and NAD HEENT Reports TM's clear and moist mucous membranes normocephalic and atraumatic; Negative for trauma or tenderness Tympanic Membrane ED: Yes TM's clear Eyes PERRL and EOMs intact bilaterally General Eye ED: Negative for pale conjunctiva or scleral icterus Neck no lymphadenopathy, supple and no JVD General: Negative for tenderness Chest Wall inspection of chest normal and palpation of chest normal Chest: Negative for tenderness Resp normal respiratory effort and clear to auscultation bilaterally Effort and Inspection: Negative for respiratory distress or pain with movement Auscultation: Negative for rhonchi, wheezes or diminished lung sounds Cardio regular rate, regular rhythm, S1 normal heart sound, S2 normal heart sound and no murmurs Peripheral Pulses: pulses 2+ throughout GI normal to inspection, nondistended, normoactive bowel sounds, soft to palpation, non-tender, non-distended and no masses Back/Spine no CVA tenderness and no thoracic nor lumbar tenderness Extremity normal to inspection General Extremety ED: Negative for edema General Extremity: Negative for edema Neuro oriented x3, CN's II-XII intact bilaterally, no sensory deficits noted and gait normal Sensorium / Orientation: awake, alert, oriented to person, oriented to place and oriented to time Motor Exam: strength 5/5 throughout and strength abnormal Psych mental status grossly normal Skin no rashes or lesions noted and no wounds Skin Narrative: Evaluation of the skin does not reveal any type of abnormal rash. There are no vesicles or purpura. I do not appreciate any significant dermal lesions. MDM MDM MDM Narrative Medical decision making narrative: Patient presents with itching which she has had prior. Etiology is unclear. It is noted that she had Kenalog last time she was here. I will give her a dose of Kenalog and referred a dermatology. Will also write for Atarax for the itching. Discharge Plan Triage Chief Complaint: Allergic Reaction ED Provider: Alexey Bundy Dx/Rx/DC Orders Clinical Impression: Pruritus Instructions: ED General Allergic Reactions Prescriptions: New hydroxyzine HCl 25 mg tablet 25 mg PO Q6H PRN (Reason: itching) Qty: 20 0RF No Action d-mannose Powder 1 ea PO DAILY doxepin 10 mg capsule 10 mg PO QHS buspirone 15 mg tablet 15 mg PO BID levothyroxine 150 mcg tablet 150 mcg PO DAILY omeprazole 40 mg capsule,delayed release(DR/EC) 40 mg PO DAILY buspirone 5 MG tablet 15 mg PO BID mirabegron 25 mg tablet extended release 24 hr 50 mg PO 1400 bupropion HCl 150 mg tablet sustained-release 12 hr 300 mg PO 1400 levothyroxine 25 mcg tablet 150 mcg PO DAILY Duaneacidoph, paracasei,B. lactis 1 EACH capsule 1 ea PO DAILY aspirin 81 MG tablet,delayed release (DR/EC) 81 mg PO DAILY maxime-emrvat-jennifer.wruu-sstxl-ayb 120-0.12-10.8 mg Tablet 1 tab PO PRN PRN (Reason: Bladder Spasms) ondansetron [ondansetron] 4 mg tablet,disintegrating 4 mg PO Q8H PRN PRN (Reason: Nausea) Qty: 10 0RF hydrocodone-acetaminophen [hydrocodone-acetaminophen] 5-325 mg tablet 1 tab PO Q6H PRN PRN (Reason: Pain) 3 Days Qty: 10 0RF cyclobenzaprine [cyclobenzaprine] 10 mg tablet 10 mg PO TID PRN (Reason: Muscle Spasm) Qty: 15 0RF Primary Care Provider: Da Weber Referrals: Da Weber MD [Primary Care Provider] - Vincent Burnett MD [Med Staff - Cryptographer] - 3-5 Days Disposition Disposition: Home, Self Care
[2023-09-09] MEDS: Triamcinolone Acetonide 40 MG/ML Vial 80 MG IM (20:29)
[2023-09-09 20:57] VITALS: BP 163/82; PULSE 110; RESP 18; TEMP 37.1; O2SAT 92
== END 2023-09-09 21:00 | disposition home or self-care (01) ==
PROVIDERS: Emergency Provider Emergency Medicine; PCP Family Medicine; Visit Provider Emergency Medicine
DX: L29.9 Pruritus, unspecified (principal); I10 Essential (primary) hypertension; R73.03 Prediabetes; K21.9 Gastro-esophageal reflux disease without esophagitis; Z79.82 Long term (current) use of aspirin; Z79.890 Hormone replacement therapy; Z79.899 Other long term (current) drug therapy
CPT/HCPCS: 96372; 99282

== ENCOUNTER → 2023-09-21 | Outpatient (CLI) | payer MEDICAID, SELFPAY ==
[2023-09-28 00:07] LABS: Apple <0.10 kU/L (Class 0); Banana <0.10 kU/L (Class 0); Beef <0.10 kU/L (Class 0); Carrot <0.10 kU/L (Class 0); Cashew <0.10 kU/L (Class 0); Chicken <0.10 kU/L (Class 0); Egg, Whole <0.10 kU/L (Class 0); Gluten <0.10 kU/L (Class 0); Milk (Cow) <0.10 kU/L (Class 0); Oat <0.10 kU/L (Class 0); Onion <0.10 kU/L (Class 0); Orange <0.10 kU/L (Class 0); Pea <0.10 kU/L (Class 0); Pecan <0.10 kU/L (Class 0); Potato, White <0.10 kU/L (Class 0); Rice <0.10 kU/L (Class 0); Strawberry <0.10 kU/L (Class 0); Tomato <0.10 kU/L (Class 0); Turkey <0.10 kU/L (Class 0); Walnut, (Food) <0.10 kU/L (Class 0); Wheat <0.10 kU/L (Class 0); Yeast <0.10 kU/L (Class 0)
== END | disposition home or self-care (01) ==
LOC: MTLAB 15:14
PROVIDERS: PCP Family Medicine; Referring Provider Otolaryngology Otolaryngology/Facial Plastic Surgery; Visit Provider Otolaryngology Otolaryngology/Facial Plastic Surgery
DX: T78.40XA Allergy, unspecified, initial encounter (principal); X58.XXXA Exposure to other specified factors, initial encounter
CPT/HCPCS: 36415; 86003

== ENCOUNTER 2023-09-29 05:56 | Emergency (ER) | payer MEDICAID, SELFPAY ==
[2023-09-29 05:57] VITALS: BP 171/82; PULSE 85; RESP 16; TEMP 35.8; O2SAT 97; BMI 39.6
--- NOTE | 2023-09-29 06:17 | EDS_ITS ---
HPI History of Present Illness Chief Complaint: Allergic Reaction Informant: patient Narrative Narrative: Patient presents not being able to sleep because she is feeling hot and itchy and burning everywhere in her body. It is worst in her face and scalp, and in h er groin. She has been getting welts/hives. This episodes been going on for 4 to 5 days. These are the same symptoms she had a few weeks ago after breaking out and receiving steroids which really helped calm everything down. Has been using Benadryl off-and-on it helped a little but not as much as she would have hoped. It does help the red splotches go away. She denies any dyspnea, lightheadedness, near-syncope or syncope. No extremity edema. [facility] Medical History Acute maxillary sinusitis, unspecified Anxiety Back pain Bladder distention Cancer Depression Essential thrombocythemia Gastric reflux History of stress test Hypertension Injury of back Interstitial cystitis Iron deficiency Knee pain Leukocytosis Low iron Malignant tumor of kidney Non-smoker Post-menopausal Pre-diabetes Severe headache Shoulder pain Stomach ulcer Thrombocytosis Thyroid disease Thyroid disease Vaginal candidiasis Home Medications buspirone 5 mg tablet 15 mg PO BID ANXIETY 08/28/15 [History Last Taken 01/15/19] mirabegron 25 mg tablet,extended release 24 hr 50 mg PO 1400 BLADDER 05/31/18 [History Last Taken 01/15/19] L.acidoph, paracasei,B. lactis 10 billion cell capsule 1 ea PO DAILY GUT HEALTH 01/16/19 [History Last Taken 01/16/19] bupropion HCl 150 mg tablet,12 hr sustained-release 300 mg PO 1400 DEPRESSION 02/19/19 [History Last Taken Unknown] aspirin 81 mg tablet,delayed release 81 mg PO DAILY 07/04/19 [History Last Taken 02/10/21] d-mannose 1 ea PO DAILY 02/28/20 [History Last Taken Unknown] methenamine 120 mg-methyl.blue 10.8 mg-sod phos-phenyl berny-hyos tablet 1 tab PO PRN PRN Bladder Spasms 02/15/21 [History Last Taken Unknown] buspirone 15 mg tablet 15 mg PO BID 12/03/21 [History Last Taken Unknown] doxepin 10 mg capsule 10 mg PO QHS 12/03/21 [History Last Taken Unknown] levothyroxine 150 mcg tablet 150 mcg PO DAILY 12/03/21 [History Last Taken Unknown] levothyroxine 25 mcg tablet 150 mcg PO DAILY THYROID 12/03/21 [History Last Taken Unknown] omeprazole 40 mg capsule,delayed release 40 mg PO DAILY 12/03/21 [History Last Taken Unknown] ondansetron 4 mg disintegrating tablet 4 mg PO Q8H PRN PRN Nausea #10 tabs 01/16/23 [Rx Last Taken Unknown] cyclobenzaprine 10 mg tablet 10 mg PO TID PRN Muscle Spasm #15 TABLETS 01/28/23 [Rx Last Taken Unknown] hydrocodone-acetaminophen 5-325mg 5mg-325mg 1 tab PO Q6H PRN PRN Pain 3 days #10 TABLETS 01/28/23 [Rx Last Taken Unknown] hydroxyzine HCl 25 mg tablet 25 mg PO Q6H PRN itching #20 tabs 09/09/23 [Rx Last Taken Unknown] Allergy/AdvReac Type Severity Reaction Status Date / Time ketorolac tromethamine Allergy Severe Hives Verified 09/29/23 05:57 [From Toradol] solifenacin succinate Allergy Severe Hives Verified 09/29/23 05:57 [From Vesicare] erythromycin base AdvReac Severe Nausea/Vom/ Verified 09/29/23 05:57 [Erythromycin Base] Diarrhea celecoxib [From Celebrex] AdvReac Intermediate Nausea/Vom/ Verified 09/29/23 05:57 Diarrhea lisinopril AdvReac Mild Vomiting Verified 09/29/23 05:57 Family History Father Diabetes Heart disease Hypertension Grandmother Cancer Surgical History History of cholecystectomy History of root canal procedure partial kidney removed Social History number of children: 0 current occupational status: employed current occupation: [employer] Smoking Status: Never smoker alcohol intake: never substance use type: does not use seatbelt use: sometimes do you feel safe at home: Yes additional social history: single ROS ROS ED Constitutional Constitutional ED: Denies chills or fever(s) Eyes Eyes: Denies change in vision or diplopia ENT ENT ED: Denies rhinorrhea or sore throat Cardiovascular Cardiovascular: Denies chest pain or palpitations Respiratory/Chest Respiratory/Chest: Denies cough or dyspnea Gastrointestinal Gastrointestinal: Denies abdominal pain, diarrhea, nausea or vomiting Genitourinary Genitourinary ED: Denies dysuria or hematuria Musculoskeletal Musculoskeletal: Denies back pain or neck pain Integumentary Reports as per HPI, pruritus, rash and skin pain; Denies abscess Neurologic Neurologic: Denies headache(s), paresthesias or weakness Psychiatric Psychiatric: Denies suicidal ideation or suicidal thoughts EXAM Physical Exam Const Vital Signs: 09/29/23 05:57 Temperature 96.5 F L Temperature Source Temporal Pulse Rate 85 Respiratory Rate 16 Blood Pressure 171/82 H Blood Pressure Mean 111 Pulse Ox 97 Positive well nourished, well developed and obese General Appearance ED: well developed and NAD Nutritional Appearance: obese HEENT Reports moist mucous membranes normocephalic and atraumatic Eyes PERRL and EOMs intact bilaterally Neck full ROM and supple Resp normal respiratory effort and clear to auscultation bilaterally Cardio regular rate, regular rhythm and no murmurs GI non-distended Back/Spine General Back: other FROM Extremity normal to inspection General Extremety ED: Negative for edema, pulses abnormal or tenderness General Extremity: Negative for edema or pulses abnormal Neuro oriented x3, CN's II-XII intact bilaterally and no sensory deficits noted Sensorium / Orientation: awake and alert Motor Exam: strength 5/5 throughout Psych mental status grossly normal Mood & Affect: anxious Skin no wounds Skin Narrative: couple blanching nontender urticaria seen on RUE. excoriations from scratching bilat lower legs. no sign of any infections. no edema face or ext's. MDM MDM MDM Narrative Medical decision making narrative: Patient states she cannot take prednisone because of significant GI symptoms, she does well with an injection of Kenalog though. She understands that if she gets an injection of Kenalog, she would not be able to discontinue the steroid and must wait till it wears off. She is due to see dermatology in several days. Unknown what she is reacting to. Seems like she may be sensitive to detergents/soaps, possibly the detergent themselves or may be preservatives, perfumes within them, etc. She has seen ENT/allergy and had multiple tests run that were negative for lots of foods and other allergens. EMR suggest that she is either prediabetic or type II diabetic, she states this is incorrect and her A1c's have been in the low 5% and her doctors told her she is not a diabetic and she did not have significant side effects when she had the last dose of Kenalog 3 to 4 weeks ago. Discharge Plan Triage Chief Complaint: Allergic Reaction ED Provider: Yefri Gutierrez Dx/Rx/DC Orders Clinical Impression: Allergic urticaria Instructions: Triamcinolone Injection, Allergy Overview Prescriptions: No Action d-mannose Powder 1 ea PO DAILY doxepin 10 mg capsule 10 mg PO QHS buspirone 15 mg tablet 15 mg PO BID levothyroxine 150 mcg tablet 150 mcg PO DAILY omeprazole 40 mg capsule,delayed release(DR/EC) 40 mg PO DAILY buspirone 5 MG tablet 15 mg PO BID mirabegron 25 mg tablet extended release 24 hr 50 mg PO 1400 bupropion HCl 150 mg tablet sustained-release 12 hr 300 mg PO 1400 levothyroxine 25 mcg tablet 150 mcg PO DAILY Marifer.acidoph, janetasei,B. lactis 1 EACH capsule 1 ea PO DAILY aspirin 81 MG tablet,delayed release (DR/EC) 81 mg PO DAILY methen-mervat-s.mgmf-qyket-ywp 120-0.12-10.8 mg Tablet 1 tab PO PRN PRN (Reason: Bladder Spasms) ondansetron [ondansetron] 4 mg tablet,disintegrating 4 mg PO Q8H PRN PRN (Reason: Nausea) Qty: 10 0RF hydrocodone-acetaminophen [hydrocodone-acetaminophen] 5-325 mg tablet 1 tab PO Q6H PRN PRN (Reason: Pain) 3 Days Qty: 10 0RF cyclobenzaprine [cyclobenzaprine] 10 mg tablet 10 mg PO TID PRN (Reason: Muscle Spasm) Qty: 15 0RF hydroxyzine HCl 25 mg tablet 25 mg PO Q6H PRN (Reason: itching) Qty: 20 0RF Primary Care Provider: Da Weber Referrals: Da Weber MD [Primary Care Provider] - (And/or [facility] as scheduled) Disposition Disposition: Home, Self Care
[2023-09-29 06:29] VITALS: BP 167/83; PULSE 82; RESP 16; TEMP 35.9; O2SAT 95
[2023-09-29] MEDS: Triamcinolone Acetonide 40 MG/ML Vial IM (06:29)
== END 2023-09-29 06:50 | disposition home or self-care (01) ==
LOC: ED 06:25
PROVIDERS: Emergency Provider Emergency Medicine; PCP Family Medicine; Visit Provider Emergency Medicine
DX: L50.0 Allergic urticaria (principal); I10 Essential (primary) hypertension; Z79.890 Hormone replacement therapy; Z79.899 Other long term (current) drug therapy
CPT/HCPCS: 96372; 99282

== ENCOUNTER 2023-12-09 16:54 | Emergency (ER) | payer MEDICAID, SELFPAY ==
[2023-12-09 16:57] VITALS: BP 175/94; PULSE 102; RESP 18; TEMP 36.4; O2SAT 94; BMI 40.5
[2023-12-09 17:32] VITALS: BP 181/87
[2023-12-09 18:00] VITALS: BP 174/85
--- NOTE | 2023-12-09 18:06 | EDS_ITS ---
HPI History of Present Illness Chief Complaint: Allergic Reaction Narrative Narrative: 58-year-old female presenting with allergy symptoms. She states that she has been having intermittent rashes. She states she followed up with dermatology and they told her that she will have allergy testing next week. Patient states that her rash is improving today after taking Benadryl and Zyrtec but she still very itchy. She states that her felt like it was swollen earlier but its improved after Benadryl. No shortness of breath or abdominal pain. [facility] Medical History Iron deficiency Thrombocytosis Leukocytosis Post-menopausal Depression Anxiety Thyroid disease Low iron Injury of back Gastric reflux Non-smoker History of stress test Hypertension Vaginal candidiasis Acute maxillary sinusitis, unspecified Shoulder pain Back pain Malignant tumor of kidney Thyroid disease Knee pain Severe headache Stomach ulcer Cancer Bladder distention Interstitial cystitis Pre-diabetes Essential thrombocythemia Home Medications ?Medication ?Instructions ?Recorded ?Last Taken ?Type buspirone 5 mg tablet 15 mg PO BID ANXIETY 08/28/15 01/15/19 History mirabegron 25 mg tablet,extended 50 mg PO 1400 BLADDER 05/31/18 01/15/19 History release 24 hr L.acidoph, paracasei,B. lactis 10 1 ea PO DAILY GUT HEALTH 01/16/19 01/16/19 History billion cell capsule bupropion HCl 150 mg tablet,12 hr 300 mg PO 1400 DEPRESSION 02/19/19 Unknown History sustained-release aspirin 81 mg tablet,delayed 81 mg PO DAILY 07/04/19 02/10/21 History release d-mannose 1 ea PO DAILY 02/28/20 Unknown History methenamine 120 mg-methyl.blue 1 tab PO PRN PRN Bladder Spasms 02/15/21 Unknown History 10.8 mg-sod phos-phenyl berny-hyos tablet buspirone 15 mg tablet 15 mg PO BID 12/03/21 Unknown History doxepin 10 mg capsule 10 mg PO QHS 12/03/21 Unknown History levothyroxine 150 mcg tablet 150 mcg PO DAILY 12/03/21 Unknown History levothyroxine 25 mcg tablet 150 mcg PO DAILY THYROID 12/03/21 Unknown History omeprazole 40 mg capsule,delayed 40 mg PO DAILY 12/03/21 Unknown History release ondansetron 4 mg disintegrating 4 mg PO Q8H PRN PRN Nausea #10 tabs 01/16/23 Unknown Rx tablet cyclobenzaprine 10 mg tablet 10 mg PO TID PRN Muscle Spasm #15 01/28/23 Unknown Rx TABLETS hydrocodone-acetaminophen 5-325mg 1 tab PO Q6H PRN PRN Pain 3 days 01/28/23 Unknown Rx 5mg-325mg #10 TABLETS hydroxyzine HCl 25 mg tablet 25 mg PO Q6H PRN itching #20 tabs 09/09/23 Unknown Rx Allergy/AdvReac Type Severity Reaction Status Date / Time ketorolac tromethamine (From Allergy Severe Hives Verified 12/09/23 16:56 Toradol) solifenacin succinate (From Allergy Severe Hives Verified 12/09/23 16:56 Vesicare) erythromycin base AdvReac Severe Nausea/Vom/ Verified 12/09/23 16:56 (Erythromycin Base) Diarrhea celecoxib (From Celebrex) AdvReac Intermediate Nausea/Vom/ Verified 12/09/23 16:56 Diarrhea lisinopril AdvReac Mild Vomiting Verified 12/09/23 16:56 Family History Father Diabetes Heart disease Hypertension Grandmother Cancer Surgical History History of root canal procedure History of cholecystectomy partial kidney removed Social History number of children: 0 current occupational status: employed current occupation: [employer] Smoking Status: Never smoker alcohol intake: never substance use type: does not use seatbelt use: sometimes do you feel safe at home: Yes additional social history: single ROS ROS ED Constitutional Constitutional ED: Denies chills, fever(s) or sweats Eyes Eyes: Denies blurry vision or change in vision ENT ENT ED: Denies ear pain or sore throat Cardiovascular Cardiovascular: Denies chest pain, palpitations or racing heartbeat Respiratory/Chest Respiratory/Chest: Denies cough, dyspnea or sputum Gastrointestinal Gastrointestinal: Denies abdominal pain, constipation, diarrhea, nausea or vomiting Genitourinary Genitourinary ED: Denies dysuria, hematuria or urinary frequency Musculoskeletal Musculoskeletal: Denies arthralgias, myalgias or neck pain Integumentary Reports rash and other Details: Right is ; Denies abscess or Abrasions Neurologic Neurologic: Denies headache(s), paresthesias or weakness Psychiatric Psychiatric: Denies anxiety, depression, suicidal ideation or suicidal thoughts Endocrine Endocrinology: Denies polydipsia or polyuria EXAM Physical Exam Const Vital Signs: 12/09/23 16:57 12/09/23 17:32 12/09/23 18:00 Temperature 97.5 F L Temperature Source Temporal Pulse Rate 102 H Respiratory Rate 18 Blood Pressure 175/94 H 181/87 H 174/85 H Blood Pressure Mean 121 118 114 Pulse Ox 94 Oxygen Delivery Method Room Air General Appearance ED: Negative for pallor HEENT Reports moist mucous membranes normocephalic Nose: external nose normal and nares normal Mouth ED: Yes oral and palatal mucosa normal, Yes lips normal, Yes tongue normal, Yes salivary gland normal and Yes moist mucous membranes normal Mouth: oral and palatal mucosa normal, lips normal, tongue normal and salivary gland normal Eyes PERRL and EOMs intact bilaterally Chest Wall inspection of chest normal Resp normal respiratory effort and clear to auscultation bilaterally Auscultation: Negative for rales, rhonchi or wheezes GI normal to inspection, nondistended, normoactive bowel sounds Neuro oriented x3 and CN's II-XII intact bilaterally Sensorium / Orientation: alert Psych mental status grossly normal Skin no rashes or lesions noted General Skin Exam: Negative for jaundice or pallor MDM MDM MDM Narrative Medical decision making narrative: Patient presenting with allergy symptoms. She states the rash is improved with Benadryl but she is still very itchy and she wants a Kenalog shot. This was provided for her. She stated that her tongue was swollen earlier but this is also improved. On examination her oropharynx patent without stridor. No abnormal findings. Lungs clear to auscultation bilaterally. Vital signs stable and afebrile. Patient will be discharged home and. She will follow-up with dermatology. Impression: 1. Allergic reaction Discharge Plan Triage Chief Complaint: Allergic Reaction ED Provider: Timothy Quinteros Dx/Rx/DC Orders Prescriptions: No Action d-mannose Powder 1 ea PO DAILY doxepin 10 mg capsule 10 mg PO QHS buspirone 15 mg tablet 15 mg PO BID levothyroxine 150 mcg tablet 150 mcg PO DAILY omeprazole 40 mg capsule,delayed release(DR/EC) 40 mg PO DAILY buspirone 5 MG tablet 15 mg PO BID mirabegron 25 mg tablet extended release 24 hr 50 mg PO 1400 bupropion HCl 150 mg tablet sustained-release 12 hr 300 mg PO 1400 levothyroxine 25 mcg tablet 150 mcg PO DAILY Maguiwallace curtis,B. lactis 1 EACH capsule 1 ea PO DAILY aspirin 81 MG tablet,delayed release (DR/EC) 81 mg PO DAILY maxime-pitarsap-rthba-ple 120-0.12-10.8 mg Tablet 1 tab PO PRN PRN (Reason: Bladder Spasms) ondansetron [ondansetron] 4 mg tablet,disintegrating 4 mg PO Q8H PRN PRN (Reason: Nausea) Qty: 10 0RF hydrocodone-acetaminophen [hydrocodone-acetaminophen] 5-325 mg tablet 1 tab PO Q6H PRN PRN (Reason: Pain) 3 Days Qty: 10 0RF cyclobenzaprine [cyclobenzaprine] 10 mg tablet 10 mg PO TID PRN (Reason: Muscle Spasm) Qty: 15 0RF hydroxyzine HCl 25 mg tablet 25 mg PO Q6H PRN (Reason: itching) Qty: 20 0RF Primary Care Provider: Da Weber Referrals: Da Weber MD [Primary Care Provider] - Print Language: Bengali
[2023-12-09] MEDS: Triamcinolone Acetonide 40 MG/ML Vial IM (18:13)
[2023-12-09 18:14] VITALS: BP 174/85; PULSE 98; RESP 18; TEMP 36.7; O2SAT 97
== END 2023-12-09 18:41 | disposition home or self-care (01) ==
PROVIDERS: Emergency Provider Student in an Organized Health Care Education/Training Program; PCP Family Medicine; Visit Provider Student in an Organized Health Care Education/Training Program
DX: T78.40XA Allergy, unspecified, initial encounter (principal); R73.03 Prediabetes; I10 Essential (primary) hypertension; Z79.82 Long term (current) use of aspirin; Z79.899 Other long term (current) drug therapy
CPT/HCPCS: 96372; 99282

== ENCOUNTER 2024-01-11 04:08 | Emergency (ER) | payer MEDICAID, SELFPAY ==
[2024-01-11 04:09] VITALS: BP 188/84; PULSE 90; RESP 18; TEMP 37.5; O2SAT 96
[2024-01-11 04:11] VITALS: BP 188/84; PULSE 90; RESP 18; TEMP 37.5; O2SAT 96
--- NOTE | 2024-01-11 04:33 | CT_ITS ---
EXAM: CT ABDOMEN AND PELVIS WITH INTRAVENOUS CONTRAST CLINICAL INDICATION: RLQ pain w/ nausea, low grade fever TECHNIQUE: Helically acquired images were obtained of the abdomen and pelvis with intravenous contrast. This CT exam was performed using one or more of the following dose reduction techniques: automated exposure control, adjustment of the mA and/or kV according to patient size, and/or use of iterative reconstruction technique. CONTRAST: IV 100mL [id number] RADIATION DOSE: CTDIvol = 17.00 mGy, DLP = 1353.46 mGy-cm COMPARISON: CT abdomen and pelvis 02/05/2021 FINDINGS: LOWER THORAX: Unremarkable. Lung bases are clear. No cardiomegaly. No significant pericardial effusion. ABDOMEN: LIVER: Hepatomegaly. GALLBLADDER AND BILE DUCTS: Cholecystectomy. No intra- or extrahepatic biliary ductal dilation. PANCREAS: Unremarkable. No focal cystic or solid mass. SPLEEN: Marked splenomegaly measuring over 20 cm in length. ADRENALS: Unremarkable. No nodules. KIDNEYS AND URETERS: Unremarkable. Normal renal size and position. No hydronephrosis. STOMACH AND BOWEL: Diverticular disease of the colon with no diverticulitis. No stomach or bowel distention. PELVIS: APPENDIX: No evidence of acute appendicitis. BLADDER: Unremarkable. REPRODUCTIVE: Unremarkable as visualized. No mass. ABDOMEN and PELVIS: INTRAPERITONEAL SPACE: Unremarkable. No ascites or other fluid collection. No free air. BONES/JOINTS: Unremarkable. No suspicious lytic or blastic abnormality. SOFT TISSUES: Unremarkable. No discrete abdominal or pelvic wall hernia. VASCULATURE: Unremarkable. Abdominal aorta is non-dilated. LYMPH NODES: Unremarkable. No enlarged lymph nodes. CT/Abdomen/Pelvis W IV Cont ONLY IMPRESSION: 1. No acute intra-abdominal abnormalities. 2. Marked splenomegaly measuring over 20 cm in length. Worsening compared to the previous examination. This could be secondary to underlying hematologic, metabolic or storage disease, but a neoplastic process is not excluded. Clinical workup is recommended. Electronically Signed: Christian Meek MD at 6:12 EDT ,
--- NOTE | 2024-01-11 04:34 | ED.VIS.GI ---
HPI HPI - GI History of Present Illness Chief Complaint: Abd Pain Informant: patient and friend Narrative Narrative: 58-year-old female 1-2 days of generalized abdominal discomfort that now seems to be focused in the right lower quadrant. Low-grade fevers up to 100.3, she is 99.5 here, some nausea no vomiting, poor appetite and a couple bouts of some diarrhea no blood. No melena. History of cholecystectomy and a partial nephrectomy due to a mass that was thought to potentially be cancer, she states it ended up being benign. None of the surgeries were recent. Denies any urinary symptoms, and states this distinctly feels different than a UTI she had in the past. She had some back pain earlier but none now. [facility] Medical History Iron deficiency Thrombocytosis Leukocytosis Post-menopausal Depression Anxiety Thyroid disease Low iron Injury of back Gastric reflux Non-smoker History of stress test Hypertension Vaginal candidiasis Acute maxillary sinusitis, unspecified Shoulder pain Back pain Malignant tumor of kidney Thyroid disease Knee pain Severe headache Stomach ulcer Cancer Bladder distention Interstitial cystitis Pre-diabetes Essential thrombocythemia Home Medications ?Medication ?Instructions ?Recorded ?Last Taken ?Type buspirone 5 mg tablet 15 mg PO BID ANXIETY 08/28/15 01/15/19 History mirabegron 25 mg tablet,extended 50 mg PO 1400 BLADDER 05/31/18 01/15/19 History release 24 hr L.acidoph, paracasei,B. lactis 10 1 ea PO DAILY GUT HEALTH 01/16/19 01/16/19 History billion cell capsule bupropion HCl 150 mg tablet,12 hr 300 mg PO 1400 DEPRESSION 02/19/19 Unknown History sustained-release aspirin 81 mg tablet,delayed 81 mg PO DAILY 07/04/19 02/10/21 History release d-mannose 1 ea PO DAILY 02/28/20 Unknown History methenamine 120 mg-methyl.blue 1 tab PO PRN PRN Bladder Spasms 02/15/21 Unknown History 10.8 mg-sod phos-phenyl berny-hyos tablet doxepin 10 mg capsule 10 mg PO QHS 12/03/21 Unknown History levothyroxine 150 mcg tablet 150 mcg PO DAILY 12/03/21 Unknown History levothyroxine 25 mcg tablet 150 mcg PO DAILY THYROID 12/03/21 Unknown History omeprazole 40 mg capsule,delayed 40 mg PO DAILY 12/03/21 Unknown History release cyclobenzaprine 10 mg tablet 10 mg PO TID PRN Muscle Spasm #15 01/28/23 Unknown Rx TABLETS hydrocodone-acetaminophen 5-325mg 1 tab PO Q6H PRN PRN Pain 3 days 01/28/23 Unknown Rx 5mg-325mg #10 TABLETS hydroxyzine HCl 25 mg tablet 25 mg PO Q6H PRN itching #20 tabs 09/09/23 Unknown Rx ondansetron 4 mg disintegrating 8 mg (2 x 4 mg) PO Q8H PRN PRN 01/11/24 Unknown Rx tablet Nausea #15 tabs Allergy/AdvReac Type Severity Reaction Status Date / Time ketorolac tromethamine (From Allergy Severe Hives Verified 12/09/23 16:56 Toradol) solifenacin succinate (From Allergy Severe Hives Verified 12/09/23 16:56 Vesicare) erythromycin base AdvReac Severe Nausea/Vom/ Verified 12/09/23 16:56 (Erythromycin Base) Diarrhea celecoxib (From Celebrex) AdvReac Intermediate Nausea/Vom/ Verified 12/09/23 16:56 Diarrhea lisinopril AdvReac Mild Vomiting Verified 12/09/23 16:56 Family History Father Diabetes Heart disease Hypertension Grandmother Cancer Surgical History History of root canal procedure History of cholecystectomy partial kidney removed Social History number of children: 0 current occupational status: employed current occupation: [employer] Smoking Status: Never smoker alcohol intake: never substance use type: does not use seatbelt use: sometimes do you feel safe at home: Yes additional social history: single ROS ROS ED Constitutional Constitutional ED: Reports anorexia and fever(s); Denies chills Eyes Eyes: Denies change in vision or diplopia ENT ENT ED: Denies rhinorrhea or sore throat Cardiovascular Cardiovascular: Denies chest pain or palpitations Respiratory/Chest Respiratory/Chest: Denies cough or dyspnea Gastrointestinal Gastrointestinal: Reports abdominal pain, diarrhea and nausea; Denies hematochezia, melena or vomiting Genitourinary Genitourinary ED: Denies dysuria or hematuria Musculoskeletal Musculoskeletal: Denies back pain or neck pain Integumentary Denies abscess or rash Neurologic Neurologic: Denies headache(s), paresthesias or weakness Psychiatric Psychiatric: Denies anxiety or suicidal thoughts EXAM Physical Exam Const Vital Signs: 01/11/24 04:09 01/11/24 04:11 01/11/24 05:11 Temperature 99.5 F H 99.5 F H 99.3 F H Temperature Source Temporal Temporal Oral Pulse Rate 90 90 88 Respiratory Rate 18 18 20 H Blood Pressure 188/84 H 188/84 H 152/74 H Blood Pressure Mean 118 118 100 Pulse Ox 96 96 93 Oxygen Delivery Method Room Air Room Air Room Air 01/11/24 06:00 01/11/24 06:08 Temperature 98.4 F Temperature Source Oral Pulse Rate 91 87 Respiratory Rate 20 H 23 H Blood Pressure 150/73 H 150/73 H Blood Pressure Mean 98 98 Pulse Ox 92 95 Oxygen Delivery Method Room Air Room Air Positive well nourished, well developed and obese General Appearance ED: well developed and NAD Nutritional Appearance: obese HEENT Reports moist mucous membranes normocephalic and atraumatic Eyes PERRL and EOMs intact bilaterally Neck full ROM and supple Resp normal respiratory effort and clear to auscultation bilaterally Cardio regular rate, regular rhythm and no murmurs GI non-distended GI Narrative: Tender in the right lower quadrant with a maximum area of tenderness at McBurney's point. No guarding or rebound tenderness. Also tender into the right upper quadrant but less-so. Negative Rovsing. Positive psoas, positive obturator signs. No CVA tenderness. Auscultation: normoactive bowel sounds Palpation: soft Back/Spine no CVA tenderness General Back: other FROM Extremity normal to inspection General Extremety ED: Negative for edema, pulses abnormal or tenderness General Extremity: Negative for edema or pulses abnormal Neuro oriented x3, CN's II-XII intact bilaterally and no sensory deficits noted Sensorium / Orientation: awake and alert Motor Exam: strength 5/5 throughout Psych mental status grossly normal and thought process normal Skin no rashes or lesions noted and no wounds MDM MDM MDM Narrative Medical decision making narrative: Concern here is for acute appendicitis, she provides fairly classic history and exam. She does not have rebound tenderness, so I feel she is safe to await an IV contrasted CT. In the meantime labs obtained and she is provided IV fluids, Zofran, morphine. Her labs were reviewed. She has a significant leukocytosis however this is common for her, and she is aware of this, related to her chronic myeloproliferative disorder, which also causes her to have thrombocytosis. Her platelet count is not as high as it usually is, 562. Again out of concern for appendicitis we did obtain a CT of the abdomen/pelvis. I reviewed the images as well as the report which I agree with. It is negative for any acute including appendicitis. There were no mesenteric lymph nodes noted. However, I do think this could be a mimic such as mesenteric adenitis, maybe this is caused by a virus which is why she is having low-grade fevers. She is not having urinary symptoms I do not think we need to check her urine. She does have quite a bit of stool present in the right hemicolon. I asked her about constipation she confirms that she has been constipated recently. We talked about potentially treating that at home, and following up as needed she is asking for a work note which was given as well as a prescription for nausea medication. Again I think her white blood count represents her chronic myeloproliferative disorder and not necessarily an acute inflammatory disorder causing her pain. Lab Data Attestation: I reviewed the patient's lab results. Labs: Laboratory Results - last 24 hr 01/11/24 04:15 WBC 26.3 H RBC 7.18 H Hgb 15.5 H Hct 53.5 H MCV 74.5 L MCH 21.6 L MCHC 29.0 L RDW Std Deviation 61.0 H RDW Coeff of Farhan 24.5 H Plt Count 562 H MPV 9.3 Immature Gran % (Auto) 1.900 H Neut % (Auto) 84.8 H Lymph % (Auto) 7.4 L Schley % (Auto) 2.6 Eos % (Auto) 1.6 Baso % (Auto) 1.7 H Absolute Neuts (auto) 22.3 H Absolute Lymphs (auto) 1.93 Nucleated RBC % 0.2 Differential Comment SCANNED Sodium 142 Potassium 3.7 Chloride 108 H Carbon Dioxide 28.0 Anion Gap 6 BUN 10 Creatinine 0.88 Est GFR (MDRD) Af Amer 85 Est GFR (MDRD) Non-Af 70 BUN/Creatinine Ratio 11.3 Glucose 97 Calcium 9.1 Total Bilirubin 0.80 AST 31 ALT 24 Alkaline Phosphatase 171 H Total Protein 7.4 Albumin 3.6 Globulin 3.8 Albumin/Globulin Ratio 0.9 Radiography Diagnostic Testing: Clinical Impression(s) from Imaging Studies Abdomen/Pelvis CT 01/11/24 04:33 IMPRESSION: 1. No acute intra-abdominal abnormalities. 2. Marked splenomegaly measuring over 20 cm in length. Worsening compared to the previous examination. This could be secondary to underlying hematologic, metabolic or storage disease, but a neoplastic process is not excluded. Clinical workup is recommended. Electronically Signed: Christian Meek MD at 6:12 EDT , Discharge Plan Triage Chief Complaint: Abd Pain ED Provider: Yefri Gutierrez Dx/Rx/DC Orders Clinical Impression: Abdominal pain, RLQ, Splenomegaly, Chronic myeloproliferative disorder Instructions: ED Constipation (Adult), ED Adenitis, Mesenteric Prescriptions: Continued d-mannose Powder 1 ea PO DAILY doxepin 10 mg capsule 10 mg PO QHS levothyroxine 150 mcg tablet 150 mcg PO DAILY omeprazole 40 mg capsule,delayed release(DR/EC) 40 mg PO DAILY buspirone 5 MG tablet 15 mg PO BID mirabegron 25 mg tablet extended release 24 hr 50 mg PO 1400 bupropion HCl 150 mg tablet sustained-release 12 hr 300 mg PO 1400 levothyroxine 25 mcg tablet 150 mcg PO DAILY L.acidoph, paracasei,B. lactis 1 EACH capsule 1 ea PO DAILY aspirin 81 MG tablet,delayed release (DR/EC) 81 mg PO DAILY [id number] 120-0.12-10.8 mg Tablet 1 tab PO PRN PRN (Reason: Bladder Spasms) hydrocodone-acetaminophen 5-325 mg tablet 1 tab PO Q6H PRN PRN (Reason: Pain) 3 Days Qty: 10 0RF cyclobenzaprine 10 mg tablet 10 mg PO TID PRN (Reason: Muscle Spasm) Qty: 15 0RF hydroxyzine HCl 25 mg tablet 25 mg PO Q6H PRN (Reason: itching) Qty: 20 0RF Changed ondansetron 4 mg tablet,disintegrating 8 mg PO Q8H PRN PRN (Reason: Nausea) Qty: 15 0RF Discontinued buspirone 15 mg tablet 15 mg PO BID Stand Alone Forms: ED Work / School Excuse Primary Care Provider: Da Weber Referrals: Da Weber MD [Primary Care Provider] - 3-5 Days if not improving (and/or your care asst) Activity Restrictions/Additional Instructions: Consider taking a stool softener as well as a laxative such as Dulcolax or MiraLAX; if you use MiraLAX 1 capful dissolved in 8 ounces or more of water, it will act as a stool softener. If you do more than this such as 1/2-1 cup dissolved in more water, it can act more like a laxative/flush. Print Language: Khmer Disposition Disposition: Home, Self Care
[2024-01-11 04:41] LABS: Absolute Lymphocyte Count 1.93 X10^3/uL (0.83-4.51); Absolute Neutrophil Count 22.3 X10^3/uL (2.0-7.7); Basophil# 0.45 X10^3/uL; Basophil% 1.7 % (0-1); Eosinophil# 0.43 X10^3/uL; Eosinophils% 1.6 % (0-5); Hematocrit 53.5 % (37-47); Hemoglobin 15.5 g/dL (12.0-15.0); Lymphocyte # 1.93 X10^3/ul (0.83-4.51); Lymphocyte % 7.4 % (19-41); Mean Corpuscular Hgb 21.6 pg (27.0-32.0); Mean Corpuscular Volume 74.5 fL (81-99); Mean Platelet Vol. 9.3 fl (6.2-12.0); Monocyte# 0.68 X10^3/uL; Monocyte% 2.6 % (0-10); NRBC Flagged by Analyzer 0.2 % (0-5); Neutrophil # 22.27 X10^3/uL (2.7-7.7); Neutrophil % 84.8 % (47-70); POSITIVE DIFFERENTIAL YES; POSITIVE MORPHOLOGY YES; Platelet Count 562 K/mm3 (150-450); RBC Distribution Width CV 24.5 % (11.6-14.6); Red Blood Count 7.18 M/mm3 (4.2-5.4); White Blood Count 26.3 K/mm3 (4.4-11.0)
[2024-01-11 04:42] LABS: Differential Indicated SCAN CRITERIA MET
[2024-01-11 05:11] VITALS: BP 152/74; PULSE 88; RESP 20; TEMP 37.4; O2SAT 93
[2024-01-11] MEDS: Morphine 4 MG/ML Syringe IV (05:12)
[2024-01-11] MEDS: Ondansetron 4 MG/2 ML Vial IV (05:12)
[2024-01-11] MEDS: 0.9% Normal Saline (1000mL) 1,000 ML 125 ML IV (05:13)
[2024-01-11 05:21] LABS: ALB/GLOB Ratio 0.9 RATIO (0.9-2.4); AST(SGOT) 31 U/L (15-37); Alanine Aminotransfer ALT/SGPT 24 U/L (13-56); Albumin, Serum 3.6 g/dL (3.2-5.0); Alkaline Phosphatase 171 U/L (45-117); Anion Gap 6 (5-15); BUN 10 mg/dL (7-18); BUN/Creat Ratio 11.3 RATIO (10-20); Calcium,Total 9.1 mg/dL (8.5-10.1); Chloride 108 mmol/L (98-107); Creatinine, Serum 0.88 mg/dL (0.55-1.02); EST Glomerular Filtration Rate 70 mL/min (>60); Est Glom Filt Rate - Afr Amer 85 mL/min (>60); Globulin 3.8 g/dL (2.2-4.2); Glucose 97 mg/dL (74-106); Potassium 3.7 mmol/L (3.5-5.1); Protein, Total 7.4 g/dL (6.4-8.2); Sodium Level 142 mmol/L (136-145)
[2024-01-11 05:22] LABS: Differential Comment SCANNED
[2024-01-11 06:00] VITALS: BP 150/73; PULSE 91; RESP 20; TEMP 36.9; O2SAT 92
[2024-01-11 06:08] VITALS: BP 150/73; PULSE 87; RESP 23; O2SAT 95
[2024-01-11 07:07] VITALS: BP 150/73; PULSE 87; RESP 23; TEMP 36.6; O2SAT 95
== END 2024-01-11 07:08 | disposition home or self-care (01) ==
PROVIDERS: Emergency Provider Emergency Medicine; PCP Family Medicine; Visit Provider Emergency Medicine
DX: R10.31 Right lower quadrant pain (principal); D47.1 Chronic myeloproliferative disease; R50.9 Fever, unspecified; R16.1 Splenomegaly, not elsewhere classified; R11.0 Nausea; I10 Essential (primary) hypertension; Z90.49 Acquired absence of other specified parts of digestive tract; Z90.5 Acquired absence of kidney; E66.9 Obesity, unspecified
CPT/HCPCS: 74177; 80053; 85025; 96361; 96374; 96375; 99283; J7030; Q9967; A4216; J2405

== ENCOUNTER 2024-02-15 18:27 | Emergency (ER) | payer MEDICAID, SELFPAY ==
[2024-02-15 18:28] VITALS: BP 177/91; PULSE 89; RESP 18; TEMP 36.6; O2SAT 99
--- NOTE | 2024-02-15 19:30 | EKG12_ITS ---
Test Reason : DYSRHYTHMIA Blood Pressure : / mmHG Vent. Rate : 086 BPM Atrial Rate : 086 BPM P-R Int : 162 ms QRS Dur : 098 ms QT Int : 370 ms P-R-T Axes : 032 013 026 degrees QTc Int : 442 ms Normal sinus rhythm Normal ECG When compared with ECG of 19-FEB-2021 13:23, No significant change was found Confirmed by Darvin Alejandro ([id number]), supervising film or videotape editor FIDE RINCON ([id number]) on 02/17/2024 10:35:50 AM Referred By: ANDREA Confirmed By:Darvin Alejandro
== END 2024-02-15 20:25 | disposition left against medical advice (07) ==
PROVIDERS: PCP Family Medicine
DX: R00.0 Tachycardia, unspecified (principal); Z53.21 Procedure and treatment not carried out due to patient leaving prior to being seen by health care provider
CPT/HCPCS: 93005

== ENCOUNTER → 2024-06-07 | Outpatient (CLI) | payer MEDICAID, SELFPAY ==
[2024-06-11 02:07] LABS: C1 EST Inhibitor, Functional >110 (.)
== END | disposition home or self-care (01) ==
LOC: MTLAB 14:16
PROVIDERS: PCP Family Medicine; Referring Provider Nurse Practitioner; Visit Provider Nurse Practitioner
DX: T78.3XXA Angioneurotic edema, initial encounter (principal)

== ENCOUNTER 2024-07-30 15:30 | Emergency (ER) | payer MEDICAID, SELFPAY ==
[2024-07-30 15:31] VITALS: BP 167/82; PULSE 96; RESP 14; TEMP 36.6; O2SAT 97; BMI 38.2
--- NOTE | 2024-07-30 15:48 | EDS_ITS ---
HPI History of Present Illness Chief Complaint: Rash Detail of Chief Complaint: Rash and itching Informant: patient Narrative Narrative: Patient presents the emergency department with concern for an allergic reaction that she has had multiple times in the past. Patient states that she started having these episodes after having COVID-19. Patient states that typically she gets Kenalog and they resolved for 3 to 6 months. She is been seen by dermatology and has been diagnosed with perivascular dermatitis. Also currently seeing an workers compensation legal secretary and had some testing earlier in the week. 6 days ago she started with some itching. She has been using hydroxyzine for the itching. Lastly had a hard time sleeping because of all the itching to her face and her head and her body. This is the same way she typically presents. She has not h ad any new soaps or detergents or other allergens. She denies any new medications other than she recently started on Augmentin 2 days ago however her symptomatology started 6 days ago. She is taken Augmentin for some sinus disease. [facility] Medical History (Updated 07/30/24 @ 15:[address] Alexey Bundy, DO) Allergic dermatitis Iron deficiency Thrombocytosis Leukocytosis Post-menopausal Depression Anxiety Thyroid disease Low iron Injury of back Gastric reflux Non-smoker History of stress test Hypertension Vaginal candidiasis Acute maxillary sinusitis, unspecified Shoulder pain Back pain Malignant tumor of kidney Thyroid disease Knee pain Severe headache Stomach ulcer Cancer Bladder distention Interstitial cystitis Pre-diabetes Essential thrombocythemia Home Medications ?Medication ?Instructions ?Recorded ?Last Taken ?Type buspirone 5 mg tablet 15 mg PO BID ANXIETY 6 01/15/19 History mirabegron 25 mg tablet,extended 50 mg PO 1400 BLADDER 05/31/18 01/15/19 History release 24 hr L.acidoph,paracasei,B.animalis 10 1 ea PO DAILY GUT HE ALTH 01/16/19 01/16/19 History billion cell capsule bupropion HCl 150 mg tablet,12 hr 300 mg PO 1400 DEPRE SSION 02/19/19 Unknown History sustained-release aspirin 81 mg tablet,delayed 81 mg PO DAILY 07/04/19 0 02/10/21 History release d-mannose 1 ea PO DAILY 02/28/20 Unkno wn History methenamine 120 mg-methyl.blue 1 tab PO PRN PRN Bladde r Spasms 02/15/21 Unknown History 10.8 mg-sod phos-phenyl berny-hyos tablet doxepin 10 mg capsule 10 mg PO QHS 12/03/21 Unknow n History levothyroxine 150 mcg tablet 150 mcg PO DAILY 12/03/21 Unknown History levothyroxine 25 mcg tablet 150 mcg PO DAILY THYROID 0 12/03/21 Unknown History omeprazole 40 mg capsule,delayed 40 mg PO DAILY Unknown History release cyclobenzaprine 10 mg tablet 10 mg PO TID PRN Muscle S pasm #15 01/28/23 Unknown Rx TABLETS hydrocodone-acetaminophen 5-325mg 1 tab PO Q6H PRN PRN Pain 3 days 01/28/23 Unknown Rx 5mg-325mg #10 TABLETS hydroxyzine HCl 25 mg tablet 25 mg PO Q6H PRN itching #20 tabs 09/09/23 Unknown Rx ondansetron 4 mg disintegrating 8 mg (2 x 4 mg) PO Q8H PRN PRN 01/11/24 Unknown Rx tablet Nausea #15 tabs fluconazole 150 mg tablet 150 mg PO Q3D 2 doses #2 tab s 02/06/24 Unknown Rx Allergy/AdvReac Type Severity Reaction Status Date / Time ketorolac tromethamine (From Allergy Severe Hives Verified 07/30/24 15:31 Toradol) solifenacin succinate (From Allergy Severe Hives Verified 07/30/24 15:31 Vesicare) vibegron (From Gemtesa) Allergy Severe Anaphylaxis Verified 07/30/24 15:31 erythromycin base AdvReac Severe Nausea/Vom/ Verified 07/30/24 15:31 (Erythromycin Base) Diarrhea celecoxib (From Celebrex) AdvReac Intermediate Nausea/Vom/ Verified 07/30/24 15:31 Diarrhea lisinopril AdvReac Mild Vomiting Verified 07/30/24 15:31 Family History Father Diabetes Heart disease Hypertension Grandmother Cancer Surgical History History of root canal procedure History of cholecystectomy partial kidney removed Social History number of children: 0 current occupational status: employed current occupation: [employer] Smoking Status: Never smoker alcohol intake: never substance use type: does not use seatbelt use: sometimes do you feel safe at home: Yes additional social history: single ROS ROS ED Review of Systems ROS Unobtainable: other Constitutional Constitutional ED: Reports lethargy; Denies chills, fever(s), sweats or weight loss Eyes Eyes: Denies blurry vision, change in vision or diplopia ENT ENT ED: Denies rhinorrhea or sore throat Cardiovascular Cardiovascular: Reports chest pain and racing heartbeat; Denies orthopnea Respiratory/Chest Respiratory/Chest: Reports dyspnea on exertion; Denies cough, dyspnea, orthopnea or sputum Gastrointestinal Gastrointestinal: Denies abdominal pain, diarrhea, nausea or vomiting Genitourinary Genitourinary ED: Denies dysuria, hematuria or urinary frequency Musculoskeletal Musculoskeletal: Denies arthralgias, back pain, myalgias or neck pain Integumentary Reports rash and other Details: Pruritus ; Denies abscess or Abrasions Neurologic Neurologic: Denies headache(s) or weakness Psychiatric Psychiatric: Denies anxiety, depression or suicidal thoughts Endocrine Endocrinology: Denies polydipsia, polyphagia or polyuria Hematologic/Lymphatic Hematologic/Lymphatic: Denies easy bleeding, easy bruising or lymphadenopathy Allergic/Immunologic Allergic/Immunologic ED: Denies mouth swelling, tongue swelling or urticaria EXAM Physical Exam Const Vital Signs: 07/30/24 15:31 Temperature 98 F Temperature Source Temporal Pulse Rate 96 Respiratory Rate 14 Blood Pressure 167/82 H Blood Pressure Mean 110 Pulse Ox 97 Oxygen Delivery Method Room Air Positive well nourished and well developed General Appearance ED: well developed and NAD HEENT Reports TM's clear and moist mucous membranes normocephalic and atraumatic; Negative for trauma or tenderness Tympanic Membrane ED: Yes TM's clear Eyes PERRL and EOMs intact bilaterally General Eye ED: Negative for pale conjunctiva or scleral icterus Neck no lymphadenopathy, supple and no JVD General: Negative for tenderness Chest Wall inspection of chest normal and palpation of chest normal Chest: Negative for tenderness Resp normal respiratory effort and clear to auscultation bilaterally Effort and Inspection: Negative for respiratory distress or pain with movement Auscultation: Negative for rhonchi, wheezes or diminished lung sounds Cardio regular rate, regular rhythm, S1 normal heart sound, S2 normal heart sound and no murmurs Peripheral Pulses: pulses 2+ throughout GI normal to inspection, nondistended, normoactive bowel sounds, soft to palpation, non-tender, non-distended and no masses Back/Spine no CVA tenderness and no thoracic nor lumbar tenderness Extremity normal to inspection General Extremety ED: Negative for edema General Extremity: Negative for edema Neuro oriented x3, CN's II-XII intact bilaterally, no sensory deficits noted and gait normal Sensorium / Orientation: awake, alert, oriented to person, oriented to place and oriented to time Motor Exam: strength 5/5 throughout and strength abnormal Psych mental status grossly normal Skin no wounds Skin Narrative: Patient with some faint macular erythema involving the upper face and forehead. No other significant rash noted anywhere. No urticaria. No purpura. No ecchymosis or bruising. MDM MDM MDM Narrative Medical decision making narrative: Patient with history of chronic dermatitis that may be allergic. Typically responds to Kenalog. Currently being worked up by workers compensation legal secretary and has been to dermatology. Clinically looks well. Will treat with Kenalog 40 mg IM. Advised to follow-up with her workers compensation legal secretary. Discharge Plan Triage Chief Complaint: Rash ED Provider: Alexey Bundy Dx/Rx/DC Orders Clinical Impression: Allergic dermatitis Instructions: ED General Allergic Reactions, ED Erythema Prescriptions: No Action d-mannose Powder 1 ea PO DAILY doxepin 10 mg capsule 10 mg PO QHS levothyroxine 150 mcg tablet 150 mcg PO DAILY omeprazole 40 mg capsule,delayed release(DR/EC) 40 mg PO DAILY fluconazole 150 mg tablet 150 mg PO Q3D Qty: 2 0RF Rx Instructions: may repeat second dose 72 hrs after first dose if symptoms persist buspirone 5 MG tablet 15 mg PO BID mirabegron 25 mg tablet extended release 24 hr 50 mg PO 1400 bupropion HCl 150 mg tablet sustained-release 12 hr 300 mg PO 1400 levothyroxine 25 mcg tablet 150 mcg PO DAILY L.acidoph,paracasei,B.animalis 1 EACH capsule 1 ea PO DAILY aspirin 81 MG tablet,delayed release (DR/EC) 81 mg PO DAILY [id number] 120-0.12-10.8 mg Tablet 1 tab PO PRN PRN (Reason: Bladder Spasms) hydrocodone-acetaminophen 5-325 mg tablet 1 tab PO Q6H PRN PRN (Reason: Pain) 3 Days Qty: 10 0RF cyclobenzaprine 10 mg tablet 10 mg PO TID PRN (Reason: Muscle Spasm) Qty: 15 0RF hydroxyzine HCl 25 mg tablet 25 mg PO Q6H PRN (Reason: itching) Qty: 20 0RF ondansetron 4 mg tablet,disintegrating 8 mg PO Q8H PRN PRN (Reason: Nausea) Qty: 15 0RF Primary Care Provider: Da Weber Referrals: Da Weber MD [Primary Care Provider] - Activity Restrictions/Additional Instructions: Follow-up with your workers compensation legal secretary as scheduled. Print Language: Canadian Disposition Disposition: Home, Self Care
[2024-07-30] MEDS: Triamcinolone Acetonide 40 MG/ML Vial IM (16:01)
[2024-07-30 16:03] VITALS: BP 134/78; PULSE 64; RESP 18; TEMP 37.1; O2SAT 99
== END 2024-07-30 16:04 | disposition home or self-care (01) ==
LOC: ED 15:56
PROVIDERS: Emergency Provider Emergency Medicine; PCP Family Medicine; Visit Provider Emergency Medicine
DX: L23.9 Allergic contact dermatitis, unspecified cause (principal); J32.9 Chronic sinusitis, unspecified; I10 Essential (primary) hypertension; E07.9 Disorder of thyroid, unspecified; R73.03 Prediabetes; F32.A Depression, unspecified; F41.9 Anxiety disorder, unspecified; Z79.82 Long term (current) use of aspirin; Z79.890 Hormone replacement therapy; Z79.899 Other long term (current) drug therapy
CPT/HCPCS: 96372; 99282

== ENCOUNTER 2024-11-12 15:49 | Emergency (ER) | payer MEDICAID, SELFPAY ==
[2024-11-12 15:49] VITALS: BP 182/83; PULSE 88; RESP 18; TEMP 37.1; O2SAT 96; BMI 37.4
[2024-11-12 16:46] VITALS: BP 170/81
[2024-11-12 18:00] VITALS: BP 147/72; PULSE 73; RESP 18; TEMP 36.9; O2SAT 99
[2024-11-12] MEDS: HYDROcodone Bitartrate/Apap 5/325 Tablet PO (18:01)
[2024-11-12] MEDS: Amox/Clavulanate 875 MG Tablet PO (18:01)
--- OUTSIDE RECORDS SUMMARY | 2024-11-12 18:11 | XMS RPT_ITS | CCD ---
Author Organization [facility] Care Team Providers Care Service Desk Technician Name Role Phone HANK MUNOZ Duane Unavailable Unavailable MAE MORTON III Unavailable Unavailable JOHNNAEH, CHRISTINE SMILEYEH ANU Unavailable Unavailab CHRISTINE Villalpando Unavailable Unavailab COLLIN Mai Unavailable Unavailable Sue Weber MD Primary Care Provider Dr. Sue Weber Primary Care Provider Dr. Sue Weber Referring Provider Dr. Loretta Eric Attending Provider Sue Weber MD Primary Care Provider Sue Weber MD Primary Care Provider Sue Weber MD Primary Care Provider Dr. Sue Weber Primary Care Provider Dr. Sue Weber Referring Provider Radha LAUREN, LEONIDAS Leung Attending Provider Dr. Loretta Eric Attending Provider Gadiel Davis MD Unavailable Sue Weber MD Primary Care Provider Jerica Chaudhari APRN.CNP Unavailable Burke Snider APRN.CNP Unavailable Sue Weber Primary Care Unavailable Provider, Ed Physician Attending Unavailab JULIETTE Blackman Attending Unavailable Sue Weber Primary Care Unavailable JULIETTE BRIAN Referring Unavailable Elderbrock, Sue Primary Care Unavailable Ungur, Remus Attending Unavailable Ungur, Remus Attending Unavailable Elderbrock, Sue Primary Care Unavailable Yefri Gutierrez Attending Unavailable Elderbrock, Sue Primary Care Unavailable Timtohy Quinteros Attending Unavailable Elderbrock, Sue Primary Care Unavailable Matt, Yefri Attending Unavailable Elderbrock, Sue Primary Care Unavailable Fredi, Aris K Attending Unavailable Fredi, Aris K Referring Unavailable Elderbrock, Sue Primary Care Unavailable Elderbrock, Sue Primary Care Unavailable Elderbrock, Sue Referring Unavailable Consuelo Mills Attending Unavailable Chavo Hurd Attending Unavailable Elderbrock, Sue Primary Care Unavailable Elderbrock, Sue Referring Unavailable Dr. Sue Weber MD Primary Care Provider Dr. Sue Weber MD Referring Provider Chavo Hurd Attending Provider [phone] JULIETTE HOLDER Attending Provider [phone] JULIETTE HOLDER Referring Provider Dr. Alexey Bundy DO Emergency Provider Reji CLERICAL SUPERVISOR, Juliette Unavailable [phone] [place] OCEANOGRAPHER PHYSICAL.CLERICAL SUPERVISOR, Jerica Unavailable [place] OCEANOGRAPHER PHYSICAL.CLERICAL SUPERVISOR, Jerica Claire Unavailable ELDERBROCK, SUE Primary Care Unavailable ELDERBROCK, SUE Attending Unavailable ELDERBROCK, SUE Attending Unavailable ELDERBROCK, SUE Primary Care Unavailable ELDERBROCK, SUE Primary Care Unavailable ELDERBROCK, SUE Attending Unavailable ELDERBROCK, SUE Primary Care Unavailable HAAGEN, CARLY Referring Unavailable ELDERBROCK, SUE Primary Care Unavailable ELDERBROCK, SUE Primary Care Unavailable ELDERBROCK, SUE Attending Unavailable ELDERBROCK, SUE Referring Unavailable ELDERBROCK, SUE Primary Care Unavailable BHUPINDER CASTAÑEDA Attending Unavailable ELDERBROCK, SUE Primary Care Unavailable GLENDA OMER Referring Unavailable ELDERBROCK, SUE Primary Care Unavailable HAAGEN, CARLY Attending Unavailable ELDERBROCK, SUE Primary Care Unavailable ELDERBROCK, SUE Attending Unavailable ELDERBROCK, SUE Primary Care Unavailable ELDERBROCK, SUE Primary Care Unavailable ELDERBROCK, SUE Attending Unavailable HAAGEN, CARLY Attending Unavailable ELDERBROCK, SUE Primary Care Unavailable ELDERBROCK, SUE Primary Care Unavailable MAUDE REEVES Attending Unavailable CARLY LEWIS Attending Unavailable ELDERBROCK, SUE Primary Care Unavailable CORINNA TOUSSAINT Attending Unavailable ELDERBROCK, SUE Primary Care Unavailable ELDERBROCK, SUE Attending Unavailable ELDERBROCK, SUE Primary Care Unavailable ELDERBROCK, SUE Attending Unavailable ELDERBROCK, SUE Primary Care Unavailable ELDERBROCK, SUE Attending Unavailable ELDERBROCK, SUE Primary Care Unavailable ELDERBROCK, SUE Attending Unavailable ELDERBROCK, SUE Primary Care Unavailable ELDERBROCK, SUE Primary Care Unavailable JUDITH MCPHERSON Attending Unavailable ELDERBROCK, SUE Primary Care Unavailable GADIEL DAVIS Referring Unavailable ELDERBROCK, SUE Primary Care Unavailable ELDERBROCK, SUE Primary Care Unavailable ELDERBROCK, SUE Primary Care Unavailable ELDERBROCK, SUE Attending Unavailable ELDERBROCK, SUE Primary Care Unavailable ELDERBROCK, SUE Referring Unavailable ELDERBROCK, SUE Primary Care Unavailable GADIEL DAVIS Attending Unavailable ELDERBROCK, SUE Primary Care Unavailable ELDERBROCK, SUE Attending Unavailable ELDERBROCK, SUE Primary Care Unavailable ELDERBROCK, SUE Primary Care Unavailable ELDERBROCK, SUE Attending Unavailable ELDERBROCK, SUE Primary Care Unavailable NIECY SHAY Attending Unavailable ABRAMITZ, GADIEL Attending Unavailable ELDERBROCK, SUE Primary Care Unavailable Allergies Allergy Classification Reported Allergen(s) Allergy Type Date of Onset Reaction(s) Facility Angiotensin Converting Enzyme (ORAL) Inhibitors (1 source) Lisinopril Drug Allergy 01-24-20 18 Unknown [facility] Work Phone: Macrolides (antibiotic) (1 source) Erythromycin Drug Allergy 02-06-20 05 GI Upset [facility] metFORMIN (1 source) metFORMIN Drug Allergy 02-04-20 19 GI Upset [facility] NSAIDs (3 sources) celecoxib Drug Allergy 05-28-19 06 Vomiting [facility] Work Phone: Prochlorperazine (1 source) Prochlorperazine Drug Allergy 09-30-19 17 Mental Status Change [facility] Work Phone: Solifenacin (1 source) Solifenacin Drug Allergy 11-21-19 10 Rash [facility] Work Phone: (20 sources) celecoxib; Translations: [CELECOXIB] Drug Allergy 05-28-19 06 GI Upset [facility] [place] [facility] (1 source) diphenhydrAMINE; Translations: [DIPHENHYDRAMINE] Drug Allergy 04-25-20 09 AOF [facility] Repository (20 sources) erythromycin; Translations: [ERYTHROMYCIN] Drug Allergy 02-06-20 05 GI Upset [facility] Repository (20 sources) ketorolac; Translations: [KETOROLAC] Drug Allergy 01-16-20 15 Vomiting [facility] Repository (20 sources) prochlorperazine; Translations: [PROCHLORPERAZINE] Drug Allergy 09-30-19 17 Mental Status Change [facility] Repository (20 sources) solifenacin; Translations: [SOLIFENACIN] Drug Allergy 11-21-19 10 Rash [facility] Repository (20 sources) Lisinopril; Translations: [LISINOPRIL] Drug Allergy 01-24-20 18 Unknown, Other: See Comments [facility] Work Phone: (20 sources) metFORMIN; Translations: [METFORMIN] Drug Allergy 02-04-20 19 GI Upset [facility] (3 sources) diphenhydrAMINE Drug Allergy 12-04-[address] [facility] (10 sources) Erythromycin Drug Allergy 12-04-19 22 Nausea/Vom/Lakshmi rrhea [facility] (11 sources) Ketorolac; Translations: [ketorolac tromethamine] Drug Allergy 12-04-19 22 [facility] (11 sources) Solifenacin; Translations: [solifenacin succinate] Drug Allergy 12-04-19 22 [facility] (20 sources) meloxicam; Translations: [MELOXICAM] Drug Allergy 01-16-20 23 Vomiting [facility] Work Phone: (1 source) Erythromycin Drug Allergy 07-31-[address] [facility] Repository (1 source) Lisinopril Drug Allergy 07-31-[address] [facility] Repository (3 sources) vibegron; Translations: [VIBEGRON] Drug allergy (disorder) 05-11-[address] [facility] Repository (4 sources) Vibegron Drug Allergy 05-11-20 24 [facility] Medications Current Medications Medication Drug Class(es) Dates Sig (Normalized) Sig (Original) acetaminophen 325 mg / HYDROcodone bitartrate 5 mg oral tablet (20 sources) Opioid Agonist Start: 01-28-2023 take 1 tablet by mouth every six hours as needed for pain Hydrocodone-Aceta minophen 5-325 mg tablet Active 1 {tbl} PO EVERY 6 HOURS NEEDED as needed for Pain 10 January 28, 2023 Start: 01-28-2023 take 1 tablet by micky th every six hours as needed Hydrocodone-Acetaminophen Active 1 TABLE T PO EVERY 6 HOURS NEEDED 02 24January 28, 2023 Start: 09-24-2022 End: 11-06-2022 Hydrocodone-Acetaminophen 5- 325 mg tablet Discontinued 1 {tbl} PO EVERY 6 HOURS NEEDED as needed for Pain 02 24September 24, 2022 November 06, 2022 12:08pm Start: 09-24-2022 End: 11-06-2022 take 1 tablet by mouth every six hours as needed Hydrocodone-Acetaminophen Discontinued 1 TABLET PO EVERY 6 HOURS NEEDED 02 24September 24, 2022 November 06, 2022 1:08pm Start: 03-21-2019 End: 03-24-2019 Hydrocodone-Acetaminophen 1 TABLET tablet Discontinued 1 {tbl} PO EVERY 4 HOURS NEEDED as needed for Pain 10 March 21, 2019 March 21, 2019 11:00pm March 23, 2019 11:11pm Start: 03-21-2019 End: 03-24-2019 take 1 tablet by mouth every four hours as needed Hydrocodone-Acetaminophen Discontinued 1 TABLET PO EVERY 4 HOURS NEEDED 02 23March 21, 2019 March 24, 2019 12:11am Start: 03-09-2016 End: 05-05-2017 Hydrocodone-Acetaminophen 1 TABLET tablet Discontinued 1 {tbl} PO EVERY 6 HOURS NEEDED as needed for Pain March 08, 2016 11:00pm May 05, 2017 3:37pm Start: 03-09-2016 End: 05-05-2017 take 1 tablet by mouth every six hours as needed Hydrocodone-Acetaminophen Discontinued 1 TABLET PO EVERY 6 HOURS NEEDED March 09, 2016 12:00am May 05, 2017 4:37pm ALPRAZolam 0.25 mg oral tablet (20 sources) Benzodiazepine Start: 10-01-2023 End: 12-30-2023 take 1 tablet by mouth once daily as needed ALPRAZolam (XANAX) 0.25 mg tablet Indications: Situational anxiety Take 1 tablet by mouth once daily as needed for up to 90 days. 30 tablet 2 10/01/2023 12/30/2023 Active Start: 07-27-2023 End: 09-26-2023 take 1 tablet by mouth once daily as needed ALPRAZolam (XANAX) 0.25 mg tablet Indications: Situational anxiety Take 1 tablet by mouth once daily as needed for up to 30 days. 30 tablet 0 08/27/2023 09/26/2023 Active Start: 06-25-2023 End: 07-25-2023 take 1 tablet by mouth once daily as needed ALPRAZolam (XANAX) 0.25 mg tablet Indications: Situational anxiety Take 1 tablet by mouth once daily as needed for up to 30 days. 30 tablet 0 06/25/2023 07/25/2023 Active Start: 06-17-2023 End: 06-25-2023 take 1 tablet by mouth every twelve hours as needed for anxiety and anxiety ALPRAZolam (XANAX) 0.25 mg tablet Indications: Situational anxiety Take 1 tablet by mouth two times a day as needed for up to 10 days. 20 tablet 0 06/17/2023 06/25/2023 Discontinued Comment on above: Take 1 tablet by micky th once daily as needed for up to 30 days. Take 1 tablet by micky th two times a day as needed for up to 10 days. amoxicillin 500 mg oral capsule (20 sources) Penicillin-class Antibacterial Start: End: take 1 capsule by mouth three times daily amoxicillin (AMOXIL) 500 mg capsule Indications: Tooth infection Take 1 capsule by mouth three times a day for 7 days. 21 capsule 10/31/2024 11/07/2024 Active Start: 07-04-2024 End: 07-14-2024 take 1 tablet by mouth every twelve hours amoxicillin (AMOXIL) 875 mg tablet Indications: Sore throat , Sinus congestion Take 1 tablet by mouth every 12 hours for 10 days. 20 tablet 07/04/2024 07/14/2024 Active Start: 07-17-2023 End: 07-27-2023 take 1 tablet by mouth twice daily amoxicillin (AMOXIL) 875 mg tablet Indications: Bacterial sinusitis Take 1 tablet by mouth two times a day for 10 days. 20 tablet 0 07/17/2023 07/27/2023 Active Start: 02-17-2023 End: 02-22-2023 take 2 capsules by mouth three times daily amoxicillin (AMOXIL) 500 mg capsule Indications: Community acquired pneumonia, unspecified laterality Take 2 capsules by mouth three times daily for 5 days. 30 capsule 02/17/2023 02/22/2023 Start: 07-04-2022 End: 07-14-2022 take 1 tablet by mouth twice daily amoxicillin (AMOXIL) 875 mg tablet Indications: Acute non-recurrent frontal sinusitis Take 1 tablet by mouth twice daily for 10 days. 20 tablet 0 07/04/2022 07/14/2022 Start: 04-02-2022 End: 04-09-2022 take 1 tablet by mouth twice daily amoxicillin (AMOXIL) 875 mg tablet Indications: Bacterial sinusitis Take 1 tablet by mouth twice daily for 7 days. 14 tablet 0 04/02/2022 04/09/2022 Active Start: 01-27-2022 End: 02-03-2022 take 1 tablet by mouth twice daily amoxicillin (AMOXIL) 875 mg tablet Take 1 tablet by mouth twice daily for 7 days. 14 tablet 0 01/27/2022 02/03/2022 Active Start: 09-20-2020 End: 10-04-2020 take 2 capsules by mouth twice daily Amoxicillin 500 mg capsule Discontinued 1000 mg PO TWICE A DAY 56 September 19, 2020 11:00pm October 02, 2020 11:00pm October 03, 2020 11:01pm Start: 09-20-2020 End: 10-04-2020 take 1000 mg by mouth twice daily Amoxicillin Discontinued 1000 MG PO TWICE A DAY 56 September 20, 2020 12:00am October 04, 2020 12:01am Comment on above: Take 1 tablet by micky th twice daily for 7 days. Take 1 tablet by micky th twice daily for 10 days. Take 2 capsules by m out three times daily for 5 days. Take 1 tablet by micky th two times a day for 10 days. amoxicillin 875 mg / clavulanate 125 mg oral tablet (15 sources) Penicillin-class Antibacterial Start: End: take 1 tablet by mouth every twelve hours amoxicillin-clavula shelli potassium (AUGMENTIN) 875-125 mg per tablet Indications: Acute non-recurrent sinusitis, unspecified location Take 1 tablet by mouth every 12 hours for 7 days. 14 tablet 07/28/2024 08/04/2024 Active Start: 02-25-2024 End: 03-01-2024 take 1 tablet by mouth twice daily amoxicillin-clavulanate potassium (AUGMENTIN) 875-125 mg per tablet Indications: Acute non-recurrent sinusitis, unspecified location Take 1 tablet by mouth two times a day for 5 days. 10 tablet 02/25/2024 03/01/2024 Active Start: 08-21-2023 End: 08-28-2023 take 1 tablet by mouth twice daily amoxicillin-clavulanate potassium (AUGMENTIN) 875-125 mg per tablet Indications: Lymphadenopathy, cervical Take 1 tablet by mouth two times a day for 7 days. 14 tablet 0 08/21/2023 08/28/2023 Active Start: 03-11-2016 End: 05-05-2017 take 1 tablet by mouth every twelve hours Amoxicillin-Pot Clavulanate 875 MG table t Discontinued 875 mg PO Q12H March 10, 2016 11:00pm May 05, 2017 3:37pm Comment on above: Take 1 tablet by micky th two times a day for 7 days. azithromycin 250 mg oral tablet (2 sources) Macrolide Antimicrobial Start: 07-14-2022 End: 07-19-2022 azithromycin (ZITHROMAX Z-KATIE) 250 mg tablet Indications: Bacterial sinusitis Take 2 tablets day one, then, 1 tablet daily until gone. 6 tablet 0 07/14/2022 07/19/2022 Active Start: 02-21-2022 End: 02-26-2022 azithromycin (ZITHROMAX Z-PA K) 250 mg tablet Indications: OM (otitis media), recurrent, left Take 2 tablets day one, then, 1 tablet daily until gone. 6 tablet 0 02/21/2022 02/26/2022 Active Comment on above: Take 2 tablets day o ne, then, 1 tablet daily until gone. 24 hr buPROPion hydrochloride 300 mg extended release oral tablet (20 sources) Aminoketone Start: End: take 1 tablet by mouth once daily buPROPion XL (WELLBUTRIN XL) 300 mg 24 hr tablet Take 1 tablet by mouth once daily. 90 tablet 3 12/30/2023 Active Start: 02-28-2020 End: 05-03-2020 take 1 tablet by mouth every twenty-four hours Bupropion Hcl 300 mg tablet extended release 24 hr Discontinued 300 mg PO ONCE February 27, 2020 11:00pm May 03, 2020 9:59am Start: 02-28-2020 End: 05-03-2020 take 300 mg by mouth once Bupropion Hcl Discontinued 3 00 MG PO ONCE February 28, 2020 12:00am May 03, 2020 10:59am Start: 02-19-2019 take 1 tablet by micky every twelve hours Bupropion Hcl 150 mg tablet sustained-release 12 hr Active 300 mg PO 1400 February 19, 2019 11:36am Start: 08-28-2015 End: 02-19-2019 take 1 tablet by mouth every twelve hours Bupropion Hcl 150 MG tablet extended release 12 hr Discontinued 150 mg PO 1400 August 27, 2015 11:00pm February 19, 2019 11:38am Comment on above: Take 1 tablet by micky once daily. busPIRone hydrochloride 15 mg oral tablet (20 sources) Start: 12-16-2022 End: 01-27-2024 take 1 tablet by mouth three times daily busPIRone (BUSPAR) 15 mg tablet Take 1 tablet by mouth three times a day. 270 tablet 3 01/27/2024 Active Start: 04-01-2022 take 1 tablet by micky three times daily busPIRone (BUSPAR) 15 mg tablet Take 1 tablet by mouth three times daily. 270 tablet 1 04/01/2022 Active Start: 09-09-2021 End: 01-11-2024 take 1 tablet by mouth twice daily Buspirone 15 mg tablet Discontinued 15 mg PO TWICE A DAY December 02, 2021 11:00pm January 11, 2024 5:52am Start: 03-04-2021 End: 09-07-2021 take 1 tablet by mouth twice daily busPIRone (BUSPAR) 15 mg tablet TAKE ONE TABLET BY MOUTH TWICE A DAY 180 tablet 1 03/04/2021 09/07/2021 Discontinued Start: 08-28-2015 take 3 tablets by mo [facility] twice daily Buspirone 5 MG tablet Active 15 mg PO TWICE A DAY August 27, 2015 11:00pm Start: 08-28-2015 take 15 mg by mouth twice patsy y Buspirone Active 15 MG PO TWICE A DAY August 28, 2015 12:00am Comment on above: TAKE ONE TABLET BY M [facility] TWICE A DAY Take 1 tablet by micky twice daily. Take 1 tablet by micky three times daily. cephalexin 500 mg oral capsule (17 sources) Cephalosporin Antibacterial Start: End: take 1 capsule by mouth twice daily cephALEXin (KEFLEX) 500 mg capsule Take 1 capsule by mouth two times a day for 7 days. 14 capsule 0 11/27/2023 12/04/2023 Active Start: 01-07-2023 End: 01-14-2023 take 1 capsule by mouth twice daily cephALEXin (KEFLEX) 500 mg capsule Indications: Thumb pain, left Take 1 capsule by mouth twice daily for 7 days. 14 capsule 0 01/07/2023 01/14/2023 Active Start: 03-17-2022 End: 03-24-2022 take 1 capsule by mouth twice daily cephALEXin (KEFLEX) 500 mg capsule Take 1 capsule by mouth twice daily for 7 days. 14 capsule 0 03/17/2022 03/24/2022 Active Start: 02-22-2021 End: 11-06-2022 take 1 capsule by mouth every twelve hours Cephalexin 500 MG capsule Discontinued 500 mg PO EVERY 12 HOURS 6 3 February 21, 2021 11:00pm November 06, 2022 12:08pm Comment on above: Take 1 capsule by mo [facility] twice daily for 7 days. cetirizine hydrochloride 10 mg oral tablet (20 sources) Histamine-1 Receptor Antagonist Start: take 1 tablet by mouth twice daily cetirizine (ZYRTEC) 10 mg tablet Indications: Rash Take 1 tablet by mouth two times a day. 60 tablet 11 08/02/2024 Active Start: 08-27-2023 End: 2024 take 1 tablet by mouth once daily cetirizine (ZYRTEC) 10 mg tablet Take 1 tablet by mouth once daily. 30 tablet 5 12/11/2023 2024 Active Comment on above: Take 1 tablet by micky once daily. clotrimazole 10 mg/ml topical cream (4 sources) Azole Antifungal Start: End: clotrimazole (RINGWORM) 1 % cream Apply to affected area two times a day for 14 days. 60 g 0 08/09/2023 08/23/2023 Active Comment on above: Apply to affected ar ea two times a day for 14 days. cyclobenzaprine hydrochloride 10 mg oral tablet (20 sources) Muscle Relaxant Start: End: take 1 tablet by mouth three times daily as needed for muscle spasms Cyclobenzaprine 10 mg tablet Active 10 mg PO THREE TIMES A DAY as needed for Muscle Spasm January 27, 2023 11:00pm Comment on above: Take 1 tablet by micky three times daily as needed for muscle spasm. D-Mannose (9 sources) Start: D-Mannose Active 1 EACH PO DAILY February 28, 2020 12:00am D-Mannose powder (1 source) Start: D-Mannose powder Active 1 NMA PO DAILY February 27, 2020 11:00pm doxepin hydrochloride 10 mg oral capsule (13 sources) Tricyclic Antidepressant Start: End: take 1 capsule by mouth at bedtime Doxepin 10 mg capsule Active 10 mg PO AT BEDTIME December 02, 2021 11:00pm Comment on above: Take 1 capsule by mo [facility] daily at bedtime. doxycycline monohydrate 100 mg oral tablet (13 sources) Tetracycline-class Drug Start: End: take 1 tablet by mouth twice daily doxycycline monohydrate 100 mg tablet Take 1 tablet by mouth two times a day for 7 days. 14 tablet 01/31/2024 02/07/2024 Active Start: 02-11-2023 End: 02-21-2023 take 1 tablet by mouth twice daily doxycycline (VIBRA-TABS) 100 mg tablet Indications: Acute cough Take 1 tablet by mouth twice daily for 10 days. 20 tablet 02/11/2023 02/21/2023 Start: 11-18-2021 End: 11-23-2021 take 1 tablet by mouth twice daily doxycycline monohydrate 100 mg tablet Take 1 tablet by mouth twice daily for 5 days. 10 tablet 0 11/18/2021 11/23/2021 Active Comment on above: Take 1 tablet by micky twice daily for 5 days. Take 1 tablet by micky twice daily for 10 days. enteric contrast (will be provided with radiology test) (2 sources) Start: 08-23-19 End: 08-24-19 enteric contrast (will be provided with radiology test) Indications: Mast cell activation (HCC) For CT CHESTABD/PEL W IVCON Routine order Administer, As Directed One Time Only, via Oral, Rectal, both Oral and Rectal, Enteric Tube, Stoma or Indwelling Catheter, Enteric Contrast as designated per enteric contrast guidelines 1 Each 08/22/2024 08/23/2024 Active erythromycin 0.005 mg/mg ophthalmic ointment (1 source) Macrolide, Macrolide Antimicrobial Start: 10-04-19 End: 10-11-19 erythromycin (ROMYCIN) 5 mg/gram (0.5 %) ophthalmic ointment Use 1 application in both eyes four times daily for 7 days. 3.5 g 10/03/2024 10/10/2024 Active famotidine 20 mg oral tablet (3 sources) Histamine-2 Receptor Antagonist Start: 01-17-20 End: 01-24-20 take 1 tablet by mouth twice daily famotidine (PEPCID) 20 mg tablet Indications: Itching Take 1 tablet by mouth twice daily for 7 days. 14 tablet 0 01/16/2023 01/23/2023 Active Comment on above: Take 1 tablet by [facility] twice daily for 7 days. fluconazole 150 mg oral tablet (20 sources) Azole Antifungal Start: 10-17-19 End: 11-01-19 fluconazole (DIFLUCAN) 150 mg tablet Indications: Vaginal discharge Take 1 tablet once. Can take another 1 tablet in 72 hours if needed. 2 tablet 10/30/2024 Active Start: 08-11-2024 End: 08-11-2024 fluconazole (DIFLUCAN) 150 m g tablet Indications: Acute non-recurrent sinusitis, unspecified location Take 1 tablet by mouth one time only for 1 dose. Repeat in 3 days as needed. 2 tablet 08/11/2024 08/11/2024 Active Start: 07-28-2024 End: 07-28-2024 fluconazole (DIFLUCAN) 150 m g tablet Indications: Acute non-recurrent sinusitis, unspecified location Take 1 tablet by mouth one time only for 1 dose. Repeat in 3 days as needed. 2 tablet 07/28/2024 07/28/2024 Active Start: 07-04-2024 End: 07-04-2024 fluconazole (DIFLUCAN) 150 m g tablet Indications: Yeast infection , Dermatitis Take 1 tablet by mouth one time only for 1 dose. Repeat in 3 days as needed. 2 tablet 07/04/2024 07/04/2024 Active Start: 04-22-2024 End: 04-22-2024 fluconazole (DIFLUCAN) 150 m g tablet Indications: Yeast infection Take 1 tablet by mouth one time only for 1 dose. Repeat in 3 days as needed. 2 tablet 04/22/2024 04/22/2024 Active Start: 02-25-2024 End: 02-25-2024 fluconazole (DIFLUCAN) 150 m g tablet Indications: Vaginal yeast infection Take 1 tablet by mouth one time only for 1 dose. Repeat in 3 days as needed. 2 tablet 02/25/2024 02/25/2024 Active Start: 02-08-2024 End: 02-08-2024 fluconazole (DIFLUCAN) 150 m g tablet Indications: Cutaneous candidiasis Take 1 tablet by mouth one time only for 1 dose. Repeat in 7 days as needed. 2 tablet 02/08/2024 02/08/2024 Active Start: 02-06-2024 Fluconazole 15 0 mg tablet Active 150 mg PO Every 3 Days February 05, 2024 11:00pm september repeat second dose 72 hrs after first dose if symptoms persist Start: 12-04-2023 End: 12-04-2023 fluconazole (DIFLUCAN) 150 m g tablet Indications: Vaginal yeast infection Take 1 tablet by mouth one time only for 1 dose. Repeat in 3 days as needed. 2 tablet 0 12/04/2023 12/04/2023 Active Start: 09-01-2023 End: 09-11-2023 take 1 tablet by mouth once daily fluconazole (DIFLUCAN) 100 mg tablet Indications: Cutaneous candidiasis Take 1 tablet by mouth once daily for 10 days. 10 tablet 0 09/01/2023 09/11/2023 Active Start: 08-10-2023 End: 08-28-2023 take 1 tablet by mouth once daily fluconazole (DIFLUCAN) 100 mg tablet Indications: Cutaneous candidiasis Take 1 tablet by mouth once daily for 10 days. 10 tablet 0 08/18/2023 08/28/2023 Active Start: 08-09-2023 End: 08-10-2023 take 1 tablet by mouth once daily fluconazole (DIFLUCAN) 150 mg tablet Take 1 tablet by mouth once daily for 1 day. 1 tablet 0 08/09/2023 08/10/2023 Discontinued (Course of therapy completed) Start: 07-17-2023 End: 07-17-2023 fluconazole (DIFLUCAN) 150 m g tablet Take 1 tablet by mouth one time only for 1 dose. Repeat in 3 days as needed. 2 tablet 0 07/17/2023 07/17/2023 Active Start: 02-24-2023 End: 02-24-2023 fluconazole (DIFLUCAN) 150 m g tablet Indications: Yeast vaginitis Take 1 tablet by mouth one time only for 1 dose. Repeat in 3 days as needed. 2 tablet 0 02/24/2023 02/24/2023 Start: 01-19-2023 End: 01-19-2023 fluconazole (DIFLUCAN) 150 m g tablet Indications: Vaginal yeast infection Take 1 tablet by mouth one time only for 1 dose. Repeat in 3 days as needed. 2 tablet 0 01/19/2023 01/19/2023 Start: 01-07-2023 End: 01-07-2023 fluconazole (DIFLUCAN) 150 m g tablet Indications: Thumb pain, left Take 1 tablet by mouth one time only for 1 dose. Repeat in 3 days as needed. 2 tablet 0 01/07/2023 01/07/2023 Start: 07-04-2022 End: 07-04-2022 fluconazole (DIFLUCAN) 150 m g tablet Indications: Vaginal yeast infection Take 1 tablet by mouth one time only for 1 dose. Repeat in 3 days as needed. 2 tablet 0 07/04/2022 07/04/2022 Active Start: 04-02-2022 End: 04-02-2022 fluconazole (DIFLUCAN) 150 m g tablet Take 1 tablet by mouth one time only for 1 dose. Repeat in 3 days as needed. 2 tablet 0 04/02/2022 04/02/2022 Active Start: 11-18-2021 End: 11-18-2021 fluconazole (DIFLUCAN) 150 m g tablet Take 1 tablet by mouth one time only for 1 dose. Repeat in 3 days as needed. 2 tablet 0 11/18/2021 11/18/2021 Active Start: 02-11-2020 End: 02-28-2020 Fluconazole (Diflucan) 150 m g tablet Discontinued 150 mg PO Every 3 Days 2 February 10, 2020 11:00pm February 28, 2020 7:58am may repeat second dose 72 hrs after first dose if symptoms persist Comment on above: Take 1 tablet by micky th one time only for 1 dose. Repeat in 3 days as needed. Take 1 tablet by micky th once daily for 1 day. Take 1 tablet by micky th once daily for 7 days. Take 1 tablet by micky th once daily for 10 days. 12 hr guaiFENesin 1200 mg extended release oral tablet (17 sources) Start: 01-30-2024 End: 02-06-2024 take 1 tablet by mouth twice daily guaiFENesin (MUCINEX) 1,200 mg Ta12 Take 1 tablet by mouth two times a day for 7 days. 14 tablet 01/30/2024 02/06/2024 Active Start: 02-11-2023 End: 05-04-2023 take 1 tablet by mouth twice daily as needed guaiFENesin (MUCINEX) 600 mg 12 hr tablet Indications: Acute cough Take 1 tablet by mouth twice daily as needed for cold/allergy symptoms. 20 tablet 1 02/11/2023 05/04/2023 Discontinued Comment on above: Take 1 tablet by micky th twice daily as needed for cold/allergy symptoms. hydrOXYzine hydrochloride 25 mg oral tablet (4 sources) Antihistamine Start: 2023 take 1 tablet by mouth every six hours as needed Hydroxyzine Hcl 25 mg tablet Active 25 mg PO EVERY 6 HOURS as needed for itching September 08, 2023 11:00pm ipratropium bromide 0.042 mg/actuat metered dose nasal spray (10 sources) Anticholinergic Start: 2023 End: 2023 take 1 spray(s) nasal route three times daily ipratropium bromide (ATROVENT) 42 mcg (0.06 %) nasal spray Use 1 Rentz in each nostril three times a day for 14 days. 6.3 mL 01/30/2024 02/13/2024 Active iv contrast (will be provided with radiology test) (2 sources) Start: 2024 End: 2024 iv contrast (will be provided with radiology test) Indications: Mast cell activation (HCC) CT Chest ABD/PEL-Inject, intravenously, once for 1 dose.No IV access, insert saline lock prior to the beginning of sedation, infusion, injection of imaging exam. Discontinue saline lock post exam. If Pt. has a central line or IVAD, may access for administration according to line specific nursing protocol. Once exam is complete flush line and de-access according to line specific nursing protocol in the CT contrast administration guidelines link. 1 Each 08/22/2024 08/23/2024 Active L.Acidoph, Paracasei,B. Lactis (9 sources) Start: 2018 L.Acidoph, Paracasei,B. Lactis Active 1 EACH PO DAILY January 16, 2019 12:00am L.Acidoph,Paracasei, B.Animalis 1 EACH capsule (1 source) Start: 2018 take 1 capsule by mouth once daily L.Acidoph,Paracasei, B.Animalis 1 EACH capsule Active 1 NMA PO DAILY January 15, 2019 11:00pm levoFLOXacin 500 mg oral tablet (7 sources) Quinolone Antimicrobial Start: 2023 End: 2023 take 1 tablet by mouth once daily levoFLOXacin (LEVAQUIN) 500 mg tablet Indications: Sinobronchitis Take 1 tablet by mouth once daily for 10 days. 10 tablet 02/08/2024 02/18/2024 Active levothyroxine sodium 0.175 mg oral tablet (20 sources) l-Thyroxine Start: 2024 take 1 tablet by mouth once daily for thyroid dysfunction levothyroxine (SYNTHROID) 175 mcg tablet Indications: Hypothyroidism, unspecified type Take 1 tablet by mouth once daily. Take on empty stomach. For Thyroid. 30 tablet 5 10/14/2024 Active Start: 02-23-2024 take 1 tablet by micky th once daily for thyroid dysfunction levothyroxine (SYNTHROID) 175 mcg tablet Indications: Hypothyroidism, unspecified type Take 1 tablet by mouth once daily. Take on empty stomach. For Thyroid. 30 tablet 5 02/23/2024 Active Start: 12-03-2021 Levothyroxine 25 mcg tablet Active 150 ug PO DAILY December 03, 2021 1:45pm Start: 12-03-2021 take 150 ug by mouth once patsy y Levothyroxine Active 150 MCG PO DAILY December 03, 2021 2:45pm Start: 11-22-2021 End: 02-23-2024 take 1 tablet by mouth once daily Levothyroxine 150 mcg tablet Active 150 ug PO DAILY December 02, 2021 11:00pm Start: 09-09-2021 take 1 tablet by micky th once daily levothyroxine (SYNTHROID) 125 mcg tablet Indications: Hypothyroidism, unspecified type TAKE ONE TABLET BY MOUTH EVERY DAY 90 tablet 3 09/09/2021 Active Start: 09-03-2020 take 1 tablet by micky th once daily levothyroxine (SYNTHROID) 125 mcg tablet Indications: Hypothyroidism, unspecified type Take 1 tablet by mouth once daily. 90 tablet 3 09/03/2020 Active Start: 08-28-2015 End: 12-03-2021 take 5 tablets by mouth once daily Levothyroxine 25 MCG tablet Discontinued 125 ug PO DAILY August 27, 2015 11:00pm December 03, 2021 1:49pm Start: 08-28-2015 End: 12-03-2021 take 125 ug by mouth once daily Levothyroxine Disconti nued 125 MCG PO DAILY August 28, 2015 12:00am December 03, 2021 2:49pm Comment on above: Take 1 tablet by micky th once daily. TAKE ONE TABLET BY M OUTH EVERY DAY Take 1 tablet by micky th daily before breakfast. TAKE ONE TABLET BY M OUTH EVERY DAY BEFORE BREAKFAST loratadine 10 mg oral tablet (3 sources) Start: 3 End: take 1 tablet by mouth once daily loratadine (CLARITIN) 10 mg tablet Indications: Itching Take 1 tablet by mouth once daily for 7 days. 7 tablet 0 01/16/2023 01/23/2023 Active Comment on above: Take 1 tablet by micky th once daily for 7 days. LORazepam 1 mg oral tablet (2 sources) Benzodiazepine Start: 5 End: 5 LORazepam (ATIVAN) 1 mg tablet Indications: Mast cell activation (HCC) Take by mouth 30 minutes prior to bone marrow biopsy 1 tablet 08/22/2024 08/23/2024 Active Bjybuq-Clwjh-E.Blue -Benja-Naphos (5 sources) Start: 1 Sgwmnf-Jpabg-I.Jeffery x-Oev-Nkxleu Active 1 TABLET PO NEEDED February 15, 2021 12:00am Methen-M.Blue-S.Lizbeth s-Phsal-Hyo (4 sources) Start: 1 Methen-M.Blue-S.Ph wx-Ibkrj-Vda Active 1 TABLET PO NEEDED February 15, 2021 12:00am Methen-M.Blue-S.Lizbeth s-Phsal-Hyo 120-0.12-10.8 mg Tablet (1 source) Start: 1 Methen-M.Blue-S.Ph gi-Ldlxf-Wea 120-0.12-10.8 mg Tablet Active 1 {tbl} PO NEEDED as needed for Bladder Spasms February 14, 2021 11:00pm methenam/sod phos/mblue/hyoscy (UROGESIC-BLUE ORAL) (20 sources) take 1 capsule by mouth once daily methenam/sod phos/mblue/hyoscy (UROGESIC-BLUE ORAL) Take 1 capsule by mouth once daily. Active take 1 capsule by mouth once trupti ly methenam/sod phos/mblue/hyoscy (UROGESIC- BLUE ORAL) Take 1 capsule by mouth once daily. 0 Active Comment on above: Take 1 capsule by mo uth once daily. 24 hr mirabegron 50 mg extended release oral tablet (20 sources) beta3-Adrenergic Agonist Start: 02-22-2020 take 1 tablet by mouth once daily mirabegron (MYRBETRIQ) 50 mg Tb24 Take 1 tablet by mouth once daily. 90 tablet 3 02/22/2020 Active Start: 05-31-2018 take 1 tablet by micky every twenty-four hours Mirabegron 25 mg tablet extended release 24 hr Active 50 mg PO 1400 May 31, 2018 2:21pm Start: 08-28-2015 End: 05-31-2018 take 1 tablet by mouth once daily Mirabegron 25 MG tab let extended release 24 hr Discontinued 50 mg PO DAILY August 27, 2015 11:00pm May 31, 2018 2:22pm Comment on above: Take 1 tablet by micky th once daily. nirmatrelvir tablet 300 mg (150 mg x 2) and ritonavir tablet 100 mg in a dose pack (PAXLOVID) (1 source) Start: End: nirmatrelvir tablet 300 mg (150 mg x 2) and ritonavir tablet 100 mg in a dose pack (PAXLOVID) Administer TWO pink nirmatrelvir 150 mg tablets and ONE white ritonavir 100 mg tablet for a total of three tablets twice daily. 30 tablet 0 06/26/2023 07/01/2023 Active Comment on above: Administer TWO pink nirmatrelvir 150 mg tablets and ONE white ritonavir 100 mg tablet for a total of three tablets twice daily. nitrofurantoin, macrocrystals 25 mg / nitrofurantoin, monohydrate 75 mg oral capsule (2 sources) Nitrofuran Antibacterial Start: End: take 1 capsule by mouth twice daily at mealtime nitrofurantoin monohydrate and macrocrystal (MACROBID) 100 mg capsule Indications: Dysuria Take 1 capsule by mouth two times a day with meals for 5 days. 10 capsule 03/21/2024 03/26/2024 Active omeprazole 40 mg delayed release oral capsule (20 sources) Proton Pump Inhibitor Start: End: take 1 capsule by mouth once daily omeprazole (PRILOSEC) 40 mg capsule Indications: Gastroesophageal reflux disease without esophagitis Take 1 capsule by mouth once daily. 90 capsule 3 04/22/2024 Active Start: 12-03-2021 take 40 mg by mouth once daily Omeprazole Active 40 MG PO DAILY December 03, 2021 12:00am Start: 08-28-2020 End: 08-20-2021 take 1 capsule by mouth once daily omeprazole (PRILOSEC) 40 mg capsule Indications: Gastroesophageal reflux disease without esophagitis Take 1 capsule by mouth once daily. 90 capsule 3 08/21/2021 Active Start: 03-07-2019 End: 12-03-2021 take 1 capsule by mouth once daily Omeprazole 20 MG capsule Discontinued 20 mg PO DAILY March 06, 2019 11:00pm December 03, 2021 1:47pm Start: 08-28-2015 End: 05-31-2018 take 1 capsule by mouth once daily Omeprazole 20 MG capsule Discontinued 20 mg PO DAILY August 27, 2015 11:00pm May 31, 2018 2:22pm Comment on above: Take 1 capsule by [facility] once daily. TAKE ONE CAPSULE BY MOUTH EVERY DAY Omeprazole 40 mg capsule,delayed release(DR/EC) (1 source) Start: 12-04-19 take 1 capsule by mouth once daily Omeprazole 40 mg capsule,delayed release(DR/EC) Active 40 mg PO DAILY December 02, 2021 11:00pm ondansetron 8 mg oral tablet (20 sources) Serotonin-3 Receptor Antagonist Start: 11-02-19 take 1 tablet by mouth every eight hours as needed ondansetron (ZOFRAN) 8 mg tablet Indications: Chronic myeloproliferative disorder (HCC) Take 1 tablet by mouth every 8 hours as needed. 30 tablet 2 11/01/2024 Active Start: 01-11-2024 take 2 tablets by [facility] every eight hours as needed for nausea Ondansetron 4 mg tablet,disintegrating Active 8 mg PO EVERY 8 HOURS NEEDED as needed for Nausea January 11, 2024 5:53am Start: 02-26-2023 End: 10-31-2024 take 1 tablet by mouth every eight hours as needed ondansetron (ZOFRAN) 8 mg tablet Take 1 tablet by mouth every 8 hours as needed. 30 tablet 2 05/11/2024 10/31/2024 Discontinued Start: 01-16-2023 End: 01-11-2024 take 1 tablet by mouth every eight hours as needed for nausea Ondansetron 4 mg tablet,disintegrating Discontinued 4 mg PO EVERY 8 HOURS NEEDED as needed for Nausea January 15, 2023 11:00pm January 11, 2024 5:53am Start: 12-24-2021 End: 07-02-2022 take 1 tablet by mouth every six hours as needed for nausea and nausea ondansetron orally disintegrating (ZOFRAN ODT) 4 mg disintegrating tablet Indications: Nausea Take 1 tablet by mouth every 6 hours as needed for nausea/vomiting. 20 tablet 2 12/30/2021 07/02/2022 Discontinued Start: 02-22-2021 End: 12-03-2021 take 1 tablet by mouth every eight hours as needed for nausea Ondansetron Hcl 8 MG tablet Discontinued 8 mg PO EVERY 8 HOURS NEEDED as needed for Nausea 11 12February 21, 2021 11:00pm December 03, 2021 1:48pm Start: 03-09-2016 End: 05-05-2017 take 1 tablet by mouth every twelve hours as needed for nausea and vomiting Ondansetron Hcl 8 MG tablet Discontinued 8 mg PO EVERY 12 HOURS NEEDED as needed for Nausea and/or vomiting March 08, 2016 11:00pm May 05, 2017 3:37pm Comment on above: Take 1 tablet by micky th every 6 hours as needed for nausea/vomiting. Take 1 tablet by micky th every 8 hours as needed. polymyxin b [id number] unt/ml / trimethoprim 1 mg/ml ophthalmic solution (2 sources) Dihydrofolate Reductase Inhibitor Antibacterial, Polymyxin-class Antibacterial Start: 03-25-20 End: 04-01-20 take 1 drop(s) into the eye(s) four times daily trimethoprim-polym yxin (POLYTRIM) 10,000 unit- 1 mg/mL ophthalmic solution Use 1 Drop in the left eye four times daily for 7 days. 10 mL 03/25/2024 04/01/2024 Active Start: 02-25-2024 End: 03-03-2024 take 1 drop(s) into the eye(s) every four hours trimethoprim-polymyxin (POLYTRIM) 10,000 unit- 1 mg/mL ophthalmic solution Indications: Bacterial conjunctivitis Use 1 Drop in both eyes every 4 hours for 7 days. 10 mL 02/25/2024 03/03/2024 Active predniSONE 20 mg oral tablet (2 sources) Start: 09-08-2023 End: 09-11-2023 take 1 tablet by mouth once daily predniSONE (DELTASONE) 20 mg tablet Take 1 tablet by mouth once daily for 3 days. 3 tablet 0 09/08/2023 09/11/2023 Active Comment on above: Take 1 tablet by micky th once daily for 3 days. Saccharomyces boulardii (20 sources) take 1 tablet by mouth once daily SACCHAROMYCES BOULARDII (PROBIOTIC, S.BOULARDII, ORAL) Take 1 tablet by mouth once daily. Active SACCHAROMYCES AHMET ULARDII (PROBIOTIC, S.BOULARDII, ORAL) Take by mouth once daily. Active SACCHAROMYCES AHMET ULARDII (PROBIOTIC, S.BOULARDII, ORAL) Take by mouth once daily. 0 Active Comment on above: Take by mouth once d aily. silver sulfADIAZINE 10 mg/ml topical cream (2 sources) Sulfonamide Antibacterial Start: 01-08-20 End: 01-15-20 silver sulfADIAZINE (SILVADENE) 1 % cream Indications: Thumb pain, left Apply to affected area once daily for 7 days. 20 g 0 01/07/2023 01/14/2023 Active Comment on above: Apply to affected ar ea once daily for 7 days. sucralfate 1000 mg oral tablet (20 sources) Aluminum Complex Start: 01-19-20 take 1 tablet by mouth four times daily at bedtime sucralfate (CARAFATE) 1 gram tablet Indications: Gastritis with hemorrhage, unspecified chronicity, unspecified gastritis type Take 1 tablet by mouth four times daily. Before meals and at bedtime 120 tablet 2 01/19/2024 Active Start: 01-03-2022 End: 05-04-2023 take 1 tablet by mouth four times daily at bedtime sucralfate (CARAFATE) 1 gram tablet Take 1 tablet by mouth four times daily. Before meals and at bedtime 120 tablet 2 01/03/2022 05/04/2023 Discontinued Comment on above: Take 1 tablet by micky four times daily. Before meals and at bedtime Completed/Discontinued Medications Medication Drug Class(es) Dates Sig (Normalized) Sig (Original) acetaminophen 325 mg / oxyCODONE hydrochloride 5 mg oral tablet (20 sources) Opioid Agonist Start: 02-22-2021 End: 12-03-2021 Oxycodone-Acetamino phen 1 TABLET tablet Discontinued 2 {tbl} PO EVERY 8 HOURS NEEDED as needed for Pain 11 12February 22, 2021 December 03, 2021 1:48pm Start: 02-22-2021 End: 12-03-2021 take 2 tablets by mouth every eight hours as needed Oxycodone-Acetaminophen Discontinued 2 TABLET PO EVERY 8 HOURS NEEDED 11 12February 22, 2021 December 03, 2021 2:48pm Start: 03-08-2019 End: 03-24-2019 Oxycodone-Acetaminophen 1 TA BLET tablet Discontinued 1 - 2 {tbl} PO EVERY 6 HOURS NEEDED as needed for Pain 02 28March 08, 2019 March 13, 2019 11:00pm March 23, 2019 11:08pm Start: 03-08-2019 End: 03-24-2019 take 1 tablet by mouth every six hours as needed Oxycodone-Acetaminophen Discontinued 1 - 2 TABLET PO EVERY 6 HOURS NEEDED 02 28March 08, 2019 March 24, 2019 12:08am [id number] 200 actuat albuterol 0.09 mg/actuat metered dose inhaler (20 sources) beta2-Adrenergic Agonist Start: 01-30-2024 End: 04-22-2024 take 2 puff(s) by inhalation every four hours as needed for wheezing albuterol HFA (PROVENTIL HFA) 90 mcg/actuation inhaler Inhale 2 Puffs as instructed every 4 hours as needed for wheezing/shortness of breath. 8.5 g 01/30/2024 04/22/2024 Discontinued (Course of therapy completed) Start: 02-11-2023 End: 05-06-2023 take 2 puff(s) by inhalation every four hours as needed for wheezing albuterol HFA (VENTOLIN HFA) 90 mcg/actuation inhaler Indications: Acute cough Inhale 2 Puffs as instructed every 4 hours as needed for wheezing/shortness of breath. 1 Each 1 02/11/2023 05/06/2023 Discontinued Comment on above: Inhale 2 Puffs as in structed every 4 hours as needed for wheezing/shortness of breath. aspirin 81 mg chewable tablet (20 sources) Platelet Aggregation Inhibitor, Nonsteroidal Anti-inflammatory Drug Start: 01-17-20 End: 02-20-20 19 take 1 tablet by mouth once daily Aspirin 81 MG tablet,chewable Discontinued 81 mg PO DAILY@0800 30 January 16, 2019 11:00pm February 19, 2019 11:37am Start: 06-02-2016 End: 05-06-2023 take 1 tablet by mouth once daily Aspirin 81 MG tablet,delayed release (DR/EC) Active 81 mg PO DAILY July 04, 2019 12:00am Comment on above: Take 1 tablet by micky once daily. benzonatate 100 mg oral capsule (15 sources) Non-narcotic Antitussive Start : 01-29 End: 02-22 benzonatate (TESSALON PERLE) 100 mg capsule Take 1-2 capsules every 8 hours as needed. 60 capsule 01/30/2024 02/23/2024 Discontinued cefuroxime 500 mg oral tablet (3 sources) Cephalosporin Antibacterial Start : 02-03 End: 02-08 take 1 tablet by mouth twice daily cefUROXime (CEFTIN) 500 mg tablet Indications: Bacterial sinusitis Take 1 tablet by mouth two times a day for 5 days. 10 tablet 02/04/2024 02/09/2024 ciprofloxacin 500 mg oral tablet (10 sources) Quinolone Antimicrobial Start : 01-17 End: 02-19 take 1 tablet by mouth twice daily Ciprofloxacin Hcl 500 MG tablet Discontinued 500 mg PO TWICE A DAY January 16, 2019 11:00pm February 19, 2019 11:37am [id number] 0.3 ml EPINEPHrine 1 mg/ml auto-injector (7 sources) alpha-Adrenergic Agonist, beta-Adrenergic Agonist, Catecholamine Start : 08-22 End: 10-30 EPINEPHrine (EPIPEN) 0.3 mg/0.3 mL auto-injector Inject 0.3 mL intramuscularly as needed. 1 Each 3 08/22/2024 10/30/2024 Discontinued (Course of therapy completed) fexofenadine hydrochloride 180 mg oral tablet (8 sources) Histamine-1 Receptor Antagonist Start : 10-08 End: 12-10 take 1 tablet by mouth once daily fexofenadine (KATIA ALLERGY) 180 mg tablet Indications: Dermatitis Take 1 tablet by mouth once daily. 30 tablet 5 10/09/2023 12/11/2023 Discontinued hydroCHLOROthiazide 12.5 mg oral capsule (20 sources) Thiazide Diuretic Start : 02-19 End: 02-27 take 1 capsule by mouth once daily Hydrochlorothiazide 12.5 mg capsule Discontinued 12.5 mg PO DAILY February 18, 2019 11:00pm February 28, 2020 7:59am Start: 08-28-2015 End: 05-31-2018 take 1 tablet by mouth once daily Hydrochlorothiazide 25 MG tablet Discontinued 25 mg PO DAILY August 27, 2015 11:00pm May 31, 2018 2:22pm hyoscyamine sulfate 0.12 mg / methenamine 81.6 mg / methylene blue 10.8 mg / sodium phosphate, monobasic 40.8 mg oral tablet (10 sources) Oxidation-Reduction Agent Start: 03-07-2019 End: 02-28-2020 take 1 tablet by mouth four times daily Methen-Sod Phos-Meth Blue-Hyos 1 EACH tablet Discontinued 1 NMA PO 4 TIMES DAILY March 06, 2019 11:00pm February 28, 2020 7:59am Start: 03-07-2019 End: 02-28-2020 Methen-Sod Phos-Meth Blue-Hy os Discontinued 1 EACH PO 4 TIMES DAILY March 07, 2019 12:00am February 28, 2020 8:59am meloxicam 15 mg oral tablet (20 sources) Nonsteroidal Anti-inflammatory Drug Start: 10-30-2022 End: 05-06-2023 take 1 tablet by mouth once daily meloxicam (MOBIC) 15 mg tablet Indications: Acute pain of right hip , Primary osteoarthritis of right hip Take 1 tablet by mouth once daily. 30 tablet 1 10/30/2022 05/06/2023 Discontinued Comment on above: Take 1 tablet by micky once daily. 24 hr metFORMIN hydrochloride 500 mg extended release oral tablet (10 sources) Biguanide Start: 08-28-2015 End: 02-19-2019 take 1 tablet by mouth twice daily Metformin 500 MG tablet Discontinued 500 mg PO TWICE A DAY August 27, 2015 11:00pm February 19, 2019 11:37am methylPREDNISolone (3 sources) Corticosteroid Start: 01-16-2023 End: 01-19-2023 methylPREDNISolone (MEDROL, KATIE,) 4 mg Dose-Pack Indications: Allergic contact dermatitis due to plants, except food Follow dosing instructions, take with food. 21 tablet 0 01/16/2023 01/19/2023 Discontinued Start: 01-16-2023 End: 01-22-2023 methylPREDNISolone (MEDROL, KATIE,) 4 mg Dose-Pack Indications: Allergic contact dermatitis due to plants, except food Follow dosing instructions, take with food. 21 tablet 0 01/16/2023 01/22/2023 Active Comment on above: Follow dosing instru ctions, take with food. 24 hr metoprolol succinate 25 mg extended release oral tablet (5 sources) beta-Adrenergic Wes Start: End: take 1 tablet by mouth once daily metoprolol succinate ER (TOPROL XL) 25 mg 24 hr tablet Indications: Essential hypertension, benign Take 1 tablet by mouth once daily. 30 tablet 1 02/15/2024 02/23/2024 Discontinued mirtazapine 15 mg oral tablet (2 sources) Start: End: take 1 tablet by mouth once daily at bedtime mirtazapine (REMERON) 15 mg tablet Indications: Sleeping difficulty , Generalized anxiety disorder Take 1 tablet by mouth daily at bedtime. 30 tablet 3 12/23/2021 12/24/2021 Discontinued (Course of therapy completed) Comment on above: Take 1 tablet by micky th daily at bedtime. mupirocin 0.02 mg/mg topical ointment (4 sources) RNA Synthetase Inhibitor Antibacterial Start: End: mupirocin (BACTROBAN) 2 % ointment Indications: Paronychia of left index finger Apply 1 application to affected area three times daily. 30 g 0 07/28/2021 11/18/2021 Discontinued Comment on above: Apply 1 application to affected area three times daily. naproxen sodium 220 mg oral capsule (10 sources) Nonsteroidal Anti-inflammatory Drug Start: End: take 1 capsule by mouth every twelve hours Naproxen Sodium (Aleve) 220 mg capsule Discontinued 220 mg PO Q12H May 05, 2017 12:00am May 31, 2018 2:22pm nystatin 100 unt/mg topical powder (1 source) Polyene Antifungal Start: End: nystatin (MYCOSTATIN) powder Indications: Candidiasis Apply 1 application to affected area four times daily. 30 g 1 05/27/2023 06/25/2023 Discontinued Comment on above: Apply 1 application to affected area four times daily. phenazopyridine hydrochloride 200 mg oral tablet (10 sources) Start: 016 End: take 1 tablet by mouth three times daily Phenazopyridine 200 MG tablet Discontinued 200 mg PO THREE TIMES A DAY March 08, 2016 11:00pm May 05, 2017 3:37pm sulfamethoxazole 800 mg / trimethoprim 160 mg oral tablet (10 sources) Dihydrofolate Reductase Inhibitor Antibacterial, Sulfonamide Antimicrobial Start: End: Sulfamethoxazole-Trim ethoprim 1 TABLET tablet Discontinued 1 {tbl} PO TWICE A DAY 6 March 07, 2019 11:00pm March 09, 2019 11:00pm March 11, 2019 11:09pm Start: 03-08-2019 End: 03-12-2019 take 1 tablet by mouth twice daily Sulfamethoxazole-Trimethoprim Discontinu ed 1 TABLET PO TWICE A DAY 6 March 08, 2019 12:00am March 12, 2019 12:09am traMADol hydrochloride 50 mg oral tablet (10 sources) Opioid Agonist Start: 05-05-2017 End: 05-31-2018 take 1 tablet by mouth every six hours Tramadol 50 mg tablet Discontinued 50 mg PO EVERY 6 HOURS May 05, 2017 12:00am May 31, 2018 2:22pm zolpidem tartrate 5 mg oral tablet (12 sources) gamma-Aminobut yric Acid-ergic Agonist Start: 12-30-2021 End: 04-01-2022 take 1 tablet by mouth at bedtime as needed zolpidem (AMBIEN) 5 mg tablet Indications: Primary insomnia Take 1 tablet by mouth at bedtime as needed for up to 20 days. 20 tablet 0 12/30/2021 04/01/2022 Discontinued Start: 12-24-2021 End: 12-31-2021 take 1 tablet by mouth at bedtime as needed zolpidem (AMBIEN) 5 mg tablet Indications: Primary insomnia Take 1 tablet by mouth at bedtime as needed for up to 7 days. 7 tablet 0 12/24/2021 12/30/2021 Discontinued Comment on above: Take 1 tablet by micky th at bedtime as needed for up to 7 days. Take 1 tablet by micky th at bedtime as needed for up to 20 days. Problems Active Problems Problem Classification Problem Date Documented Da te Episodic/Chronic Adjustment disorders (20 sources) Adjustment disorder with depressed mood; Translations: [Adjustment disorder with depressed mood] Onset: 8 01-28-2008 Chronic Allergic reactions (13 sources) Allergic contact dermatitis caused by plant material; Translations: [Allergic contact dermatitis due to plants, except food] Onset: 4 01-16-2023 Episodic Anxiety disorders (20 sources) Generalized anxiety disorder; Translations: [Generalized anxiety disorder] Onset: 7 06-11-2006 Chronic Deficiency and other anemia (2 sources) Iron deficiency anemia; Translations: [Other iron deficiency anemias] 03-23-2023 Episodic Diabetes mellitus without complication (10 sources) Type 2 diabetes mellitus; Translations: [Type 2 diabetes mellitus without complications] 02-15-2019 Chronic Diseases of white blood cells (20 sources) Elevated white blood cell count, unspecified; Translations: [Leukocytosis] Onset: 7 10-18-2020 Chronic Comment on above: Part of MPN Disorders of teeth and jaw (2 sources) Infection of tooth; Translations: [Periapical abscess without sinus] Onset: 5 10-31-2024 Episodic Esophageal disorders (20 sources) Gastroesophageal reflux disease without esophagitis; Translations: [Gastro-esophageal reflux disease without esophagitis] Onset: 7 Chronic Essential hypertension (20 sources) Benign essential hypertension; Translations: [Essential (primary) hypertension] Onset: 8 03-17-2008 Chronic Fever of unknown origin (2 sources) Fever; Translations: [Fever, unspecified] 06-25-2023 Episodic Immunity disorders (3 sources) Mast cell disorder; 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, unspecified] Onset: 5 08-22-2024 Chronic Immunizations and screening for infectious disease (10 sources) Contact with and (suspected) exposure to other viral communicable diseases; Translations: [Contact with or suspected exposure to other viral communicable disease] 05-14-2020 Episodic Inflammation; infection of eye (except that caused by tuberculosis or sexually transmitteddisease) (5 sources) Bacterial conjunctivitis; Translations: [Unspecified conjunctivitis] 02-25-2024 Episodic Inflammatory diseases of female pelvic organs (2 sources) Acute vaginitis; Translations: [Acute vaginitis] Onset: 5 10-16-2024 Episodic Lymphadenitis (1 source) Cervical lymphadenopathy; Translations: [Localized enlarged lymph nodes] 08-27-2023 Episodic Malaise and fatigue (1 source) Asthenia; Translations: [Weakness] Episodic Miscellaneous mental health disorders (4 sources) Primary insomnia; Translations: [Primary insomnia] Chronic Miscellaneous mental health disorders (2 sources) Anxiety about body function or health; Translations: [Other symptoms and signs involving emotional state] 10-16-2023 Episodic Nausea and vomiting (2 sources) Nausea; Translations: [Nausea] Episodic Neoplasms of unspecified nature or uncertain behavior (20 sources) Essential thrombocythemia; Translations: [Essential (hemorrhagic) thrombocythemia] Onset: 7 06-02-2016 Chronic Nutritional deficiencies (12 sources) Iron deficiency; Translations: [Iron deficiency] 01-06-2023 Episodic Comment on above: Therapeutic for P ve ra Osteoarthritis (10 sources) Arthritis of hip; Translations: [Unilateral primary osteoarthritis, right hip] 09-24-2022 Chronic Other bone disease and musculoskeletal deformities (20 sources) Avascular necrosis of bone of hip; Translations: [Idiopathic aseptic necrosis of unspecified femur] Onset: 1 04-15-2011 Chronic Other circulatory disease (2 sources) Pulmonary congestion ; Translations: [Other specified symptoms and signs involving the circulatory and respiratory systems] Episodic Other circulatory disease (2 sources) Elevated blood-pressure reading without diagnosis of hypertension; Translations: [Elevated blood-pressure reading, without diagnosis of hypertension] 10-16-2023 Episodic Other connective tissue disease (10 sources) Synovial cyst of knee; Translations: [Synovial cyst of popliteal space [Armijo], unspecified knee] 05-03-2020 Episodic Other connective tissue disease (8 sources) Trochanteric bursitis; Translations: [Trochanteric bursitis, right hip] 11-06-2022 Episodic Other connective tissue disease (4 sources) Trochanteric bursitis, right hip; Translations: [Enthesopathy of hip region] 11-06-2022 Episodic Other connective tissue disease (1 source) Pain in left thumb; Translations: [Pain in left finger(s)] 01-07-2023 Episodic Other connective tissue disease (5 sources) Cramp in calf; Translations: [Cramp and spasm] 01-28-2023 Episodic Other connective tissue disease (4 sources) Iliotibial band friction syndrome of right knee; Translations: [Iliotibial band syndrome, right leg] 01-30-2023 Episodic Other connective tissue disease (4 sources) Pain in right lower limb; Translations: [Pain in right leg] 01-30-2023 Episodic Other connective tissue disease (1 source) Pain in left arm; Translations: [Pain in left arm] 06-21-2024 Episodic Other diseases of bladder and urethra (20 sources) Overactive bladder; Translations: [Overactive bladder] Onset: 6 02-06-2016 Chronic Other diseases of bladder and urethra (1 source) Overactive bladder; Translations: [Overactive bladder] Onset: 6 Chronic Other disorders of stomach and duodenum (1 source) Upset stomach; Translations: [Functional dyspepsia] 06-25-2023 Episodic Other female genital disorders (10 sources) Mass of uterine adnexa; Translations: [Other specified conditions associated with female genital organs and menstrual cycle] 07-11-2019 Episodic Other female genital disorders (5 sources) Other specified conditions associated with female genital organs and menstrual cycle; Translations: [Other specified symptoms associated with female genital organs] Episodic Other female genital disorders (1 source) Vaginal discharge; Translations: [Other specified noninflammatory disorders of vagina] 10-30-2024 Episodic Other female genital disorders (2 sources) Pruritus of vagina; Translations: [Other specified noninflammatory disorders of vagina] 10-30-2024 Episodic Other gastrointestinal disorders (10 sources) Splenomegaly, not elsewhere classified; Translations: [Splenomegaly] Episodic Other gastrointestinal disorders (1 source) Diarrhea; Translations: [Diarrhea, unspecified] 06-25-2023 Episodic Other infections; including parasitic (1 source) Post-viral disorder; Translations: [[id number] condition] 07-06-2023 Chronic Other inflammatory condition of skin (1 source) Itching ; Translations: [Pruritus, unspecified] 01-16-2023 Episodic Other inflammatory condition of skin (1 source) Intertrigo; Translations: [Erythema intertrigo] 08-09-2023 Episodic Other injuries and conditions due to external causes (1 source) Muscle strain; Translations: [Other injury of unspecified body region, initial encounter] Episodic Other liver diseases (3 sources) Alkaline phosphatase raised; Translations: [Abnormal levels of other serum enzymes] 10-09-2023 Episodic Other lower respiratory disease (8 sources) Cough; Translations: [Cough, unspecified type] Episodic Other nervous system disorders (4 sources) Abnormal gait; Translations: [Unspecified abnormalities of gait and mobility] 01-30-2023 Episodic Other non-traumatic joint disorders (2 sources) Hip pain; Translations: [Pain in right hip] Episodic Other nutritional; endocrine; and metabolic disorders (20 sources) Body mass index 40+ - severely obese; Translations: [Morbid (severe) obesity due to excess calories] Onset: 2 10-01-2011 Chronic Other skin disorders (10 sources) Eruption; Translations: [Rash and other nonspecific skin eruption] 01-16-2023 Episodic Other skin disorders (1 source) Rash and other nonspecific skin eruption; Translations: [Rash and other nonspecific skin eruption] Onset: 5 Episodic Other upper respiratory disease (2 sources) Congestion of nasal sinus; Translations: [Nasal congestion] Episodic Other upper respiratory disease (1 source) Nasal congestion; Translations: [Nasal congestion] 01-31-2024 Episodic Other upper respiratory infections (10 sources) Bacterial sinusitis; Translations: [Chronic sinusitis, unspecified] Onset: 4 Chronic Other upper respiratory infections (19 sources) Acute sinusitis; Translations: [Acute sinusitis, unspecified] Episodic Otitis media and related conditions (2 sources) Acute right otitis media; Translations: [Otitis media, unspecified, right ear] Episodic Pneumonia (except that caused by tuberculosis or sexually transmitted disease) (1 source) Community acquired pneumonia; Translations: [Pneumonia, unspecified organism] 02-17-2023 Episodic Residual codes; unclassified (3 sources) Difficulty sleeping ; Translations: [Sleep disorder, unspecified] Episodic Residual codes; unclassified (10 sources) Other specified health status; Translations: [Failure of outpatient treatment] 01-16-2019 Episodic Residual codes; unclassified (2 sources) Other specified personal risk factors, not elsewhere classified; Translations: [Other specified personal history presenting hazards to health] Episodic Residual codes; unclassified (1 source) Feeling nervous; Translations: [Nervousness] 12-24-2022 Episodic Residual codes; unclassified (1 source) Generalized aches and pains; Translations: [Pain, unspecified] 06-25-2023 Episodic Thyroid disorders (20 sources) Hypothyroidism; Translations: [Hypothyroidism, unspecified] Onset: 5 04-04-2015 Chronic Unclassified (1 source) Vaginal yeast infection; Translations: [Vaginal yeast infection] Onset: 5 Unclassified (1 source) Eye Problem Onset: 5 Unclassified (1 source) Acute cough; Translations: [Acute cough] Onset: 4 Urinary tract infections (20 sources) Chronic interstitial cystitis; Translations: [Interstitial cystitis (chronic) without hematuria] Onset: 9 10-18-2020 Chronic Urinary tract infections (10 sources) Urinary tract infectious disease; Translations: [Urinary tract infection, site not specified] 03-08-2019 Episodic Viral infection (4 sources) Viral disease; Translations: [Viral infection, unspecified] Episodic Past or Other Problems Problem Classification Problem Date Documented Date Episodic/Chronic Abdominal pain (20 sources) Pain in female pelvis; Translations: [Pelvic and perineal pain] Onset: 9 Resolved: 6 03-26-2016 Episodic Bacterial infection; unspecified site (1 source) Other specified bacterial agents as the cause of diseases classified elsewhere; Translations: [Bacterial sinusitis] Onset: 4 Episodic Cancer of kidney and renal pelvis (20 sources) Primary malignant neoplasm of left kidney; Translations: [Malignant neoplasm of left kidney, except renal pelvis] Onset: 7 Resolved: 9 06-04-2018 Chronic Cardiac dysrhythmias (1 source) Tachycardia, unspecified; Translations: [Tachycardia, unspecified] Onset: 4 Episodic Chronic obstructive pulmonary disease and bronchiectasis (1 source) Bronchitis, not specified as acute or chronic; Translations: [Sinobronchitis] Onset: 4 Episodic Deficiency and other anemia (1 source) Other iron deficiency anemias; Translations: [Other iron deficiency anemia] Onset: 4 Episodic Deficiency and other anemia (1 source) Iron deficiency anemia, unspecified; Translations: [Iron deficiency anemia, unspecified iron deficiency anemia type] Onset: 4 Episodic Diabetes mellitus without complication (20 sources) Impaired glucose tolerance; Translations: [Impaired glucose tolerance (oral)] Onset: 0 04-02-2010 Episodic Gastritis and duodenitis (20 sources) Acute gastritis; Translations: [Acute gastritis without bleeding] Onset: 7 Resolved: 6 03-26-2016 Episodic Genitourinary symptoms and ill-defined conditions (20 sources) Bladder pain; Translations: [Other symptoms and signs involving the genitourinary system] Onset: 4 Episodic Headache; including migraine (20 sources) Cluster headache; Translations: [Cluster headache syndrome, unspecified, not intractable] Onset: 9 Resolved: 6 03-26-2016 Chronic Mycoses (20 sources) Candidiasis of vagina; Translations: [Candidiasis of vulva and vagina] Onset: 4 Episodic Neoplasms of unspecified nature or uncertain behavior (20 sources) Essential (hemorrhagic) thrombocythemia; Translations: [Chronic myeloproliferative disorder (clinical)] Onset: 7 10-18-2020 Episodic Comment on above: MPN: JAK2 positive, 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 Part of MPN Nonspecific chest pain (2 sources) Finding of region of thorax; Translations: [Other chest pain] Onset: 4 02-15-2024 Episodic Other acquired deformities (20 sources) Somatic dysfunction of sacral region; Translations: [Biomechanical lesion, unspecified] Onset: 1 Resolved: 6 03-26-2016 Episodic Other and unspecified benign neoplasm (20 sources) Oncocytoma of left kidney; Translations: [Benign neoplasm of left kidney] Onset: 9 06-04-2018 Episodic Other and unspecified benign neoplasm (1 source) Benign neoplasm of left kidney; Translations: [Renal oncocytoma, left] Onset: 9 Episodic Other circulatory disease (1 source) Elevated blood-pressure reading, without diagnosis of hypertension; Translations: [Elevated blood pressure reading without diagnosis of hypertension] Onset: 4 Episodic Other connective tissue disease (20 sources) Synovial cyst of right popliteal space; Translations: [Synovial cyst of popliteal space [Armijo], right knee] Onset: 7 05-01-2017 Episodic Other connective tissue disease (20 sources) Synovial cyst of left popliteal space; Translations: [Synovial cyst of popliteal space [Armijo], left knee] Onset: 9 06-21-2018 Episodic Other connective tissue disease (20 sources) Enthesopathy of hip region; Translations: [Other specified enthesopathies of unspecified lower limb, excluding foot] Onset: 6 Resolved: 6 03-26-2016 Episodic Other connective tissue disease (20 sources) Synovial cyst of popliteal space [Armijo], right knee; Translations: [Synovial cyst of popliteal space] Onset: 7 05-01-2017 Episodic Other diseases of kidney and ureters (20 sources) Renal mass; Translations: [Other specified disorders of kidney and ureter] Onset: 4 Resolved: 6 03-26-2016 Chronic Other female genital disorders (1 source) Unspecified condition associated with female genital organs and menstrual cycle; Translations: [Unspecified condition associated with female genital organs and menstrual cycle] Onset: 7 Episodic Other gastrointestinal disorders (20 sources) Splenomegaly; Translations: [Splenomegaly, not elsewhere classified] Onset: 1 10-18-2020 Episodic Comment on above: Part of MPN Other inflammatory condition of skin (11 sources) Pruritus, unspecified; Translations: [Pruritus] Onset: 4 01-16-2023 Episodic Other liver diseases (1 source) Abnormal levels of other serum enzymes; Translations: [Elevated alkaline phosphatase level] Onset: 4 Episodic Other nervous system disorders (20 sources) Piriformis syndrome; Translations: [Lesion of sciatic nerve, unspecified lower limb] Onset: 1 Resolved: 6 03-26-2016 Chronic Other screening for suspected conditions (not mental disorders or infectious disease) (10 sources) Patient encounter status; Translations: [Encounter for screening for malignant neoplasm of colon] Onset: 4 Episodic Residual codes; unclassified (20 sources) Insomnia; Translations: [Insomnia, unspecified] Onset: 0 11-24-2019 Episodic Spondylosis; intervertebral disc disorders; other back problems (20 sources) Arthropathy of lumbar facet joint; Translations: [Spondylosis without myelopathy or radiculopathy, lumbar region] Onset: 2 Resolved: 6 03-26-2016 Chronic Spondylosis; intervertebral disc disorders; other back problems (20 sources) Low back pain; Translations: [Lumbago] Onset: 5 Resolved: 1 03-26-2016 Episodic Sprains and strains (20 sources) Lower back injury; Translations: [Strain of muscle, fascia and tendon of lower back, initial encounter] Onset: 3 Resolved: 6 03-15-2018 Episodic Superficial injury; contusion (20 sources) Contusion of face; Translations: [Contusion of other part of head, initial encounter] Onset: 9 Resolved: 6 02-28-2020 Episodic Unclassified (10 sources) partial kidney removed 12-12-2021 Comment on above: left-10/15/2016 Results Test Name Value Interpretation Reference Range Facility OV [facility]31[facility] PAYTON MCQUEEN ([id number]) 1965 F Date Time Provider Department 10/31/24 7:20 PM [facility] During your visit today, we recorded the following information about you: Temperature Pulse Respiration Blood pressure 98.7 degrees 76/minute 16/minute 138/70 Weight 99.3 kg Sue Weber MD 10/31/2024 7:33 PM Signed Chief Complaint Patient presents with: Illness: Fever, Nausea HPI Payton Flores Richar is a 59 year old female who presents here today for illness. Overall feeling pretty good today. Pt here with c/o low grade fever, nausea and not feeling well. Feels this is related to her possible teeth issues and some sinuses. Does have some discomfort into the left ear. Having some residual tenderness on the left side of her face. Just requested Zofran from Hem/Onc. Having two teeth extracted on Thursday and was placed on abx. She finished this on Thursday due to having abscess. Was unable to have removed previously due to infection. Treated with Amoxicillin 500 mg 2 caps at one, then 1 caps TID #30. Reports swelling on the left side of her face has improved but foundry tender. Doesn't want to have any issues getting this removed. Was treated with Diflucan recently due to a yeast infection. This tends to happen after taking abx. Seen virtually. Feels anxiety has improved since no longer working. Currently taking Wellbutrin XL 300 mg once daily and Buspar 15 mg 1 tab po TID. Pt states that she's currently looking for a work and has been reached out to by her previous employer. She is thinking about maybe going back, but at a different capacity. Asking some questions regarding her recent Hem/Onc visit. She is hesitant to pursue any further workup or treatment at this time, since she is doing better after quitting her job. Still working with [employer] due to issues with hives and other skin issues. Reports she's not had any break outs since not working and doing overall well. She's taking Zyrtec 10 mg once daily. Past medical history, appointments, medications, allergies reviewed. Previous Medical History PAST MEDICAL HISTORY Diagnosis Date Acute gastritis without mention of hemorrhage Anxiety Benign neoplasm of stomach Cervical disc disorder with radiculopathy 02/18/2010 Cyst of ovary 01/01/2015 [facility] - see scanned documents Depressive disorder, not elsewhere classified Essential thrombocythemia (HCC) 06/02/2016 GERD (gastroesophageal reflux disease) Hypertension 08/28/11 IC (interstitial cystitis) Impaired fasting glucose 04/02/2010 Lumbar disc disease with radiculopathy 11/15/2010 Metabolic syndrome X Morbid obesity with BMI of 40.0-44.9, adult (HCC) 08/29/2013 Renal cyst, left 07/03/2016 18 mm, 06/18/16 Sciatica SI (sacroiliac) joint dysfunction 06/04/2011 Thoracolumbar back pain 07/20/2013 Unspecified hypothyroidism Urinary calculus, unspecified Renal stones Previous Surgical History PAST SURGICAL HISTORY Procedure Laterality Date CHOLECYSTECTOMY 1991 Cholecystectomy CYSTOSCOPY,DIL BLADDER,LOCAL ANESTH 01/18/14 EGD TRANSORAL BIOPSY SINGLE/MULTIPLE 04/09/2007 gastritis, gastric polyps KIDNEY SURGERY HX 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 Valadez PAST SURGICAL HISTORY OF WISDOM TEETH EXTRACTIONS PAST SURGICAL HISTORY OF 05/2012 bladder hydrodistension X 2 PAST SURGICAL HISTORY OF 2015 pain injection lumbar- multiple PAST SURGICAL HISTORY OF Cyst removed from head Family History FAMILY HISTORY Problem Relation Age of Onset No Known Problems Mother Diabetes Father Hypertension Father No Known Problems Brother No Known Problems Brother Cancer Maternal Grandmother Lymphoma Heart Maternal Grandfather hypertension Patient Allergies ALLERGIES Allergen Reactions Vesicare [Solifenac* Rash Vibegron Hives Celebrex [Celecoxib] GI Upset upsets stomach after prolonged use ie. 6 weeks Erythromycin GI Upset Lisinopril Other: See Comments Cough, hypotension Metformin GI Upset Mobic [Meloxicam] Vomiting Prochlorperazine Mental Status Change Agitation, felt ill Toradol [Ketorolac] Vomiting Current Medications Current Outpatient Medications on File Prior to Visit Medication Sig fluconazole (DIFLUCAN) 150 mg tablet Take 1 tablet once. Can take another 1 tablet in 72 hours if needed. levothyroxine (SYNTHROID) 175 mcg tablet Take 1 tablet by mouth once daily. Take on empty stomach. For Thyroid. cetirizine (ZYRTEC) 10 mg tablet Take 1 tablet by mouth two times a day. ondansetron (ZOFRAN) 8 mg tablet Take 1 tablet by mouth every 8 hours as needed. omeprazole (PRILOSEC) 40 mg capsule Take 1 capsule by mouth once daily. busPIRone (BUSPAR) 15 mg tablet Take 1 tablet by mouth three times a day. sucralfate (CARAFATE) 1 gram tablet Take 1 tablet by mouth four times daily. Bef (more content not included)... Normal [facility] CNOVon 10-03-2024 [facility] Office Visit ([facility] ) PAYTON MCQUEEN ([id number]) 1965 F Date Time Provider Department 10/03/24 8:20 AM MUADE REEVES [facility] During your visit today, we recorded the following information about you: Temperature Pulse Respiration Blood pressure 98.4 degrees 73/minute 18/minute 150/82 Weight 98 kg Maude Reeves PA-C 10/03/2024 8:44 AM Signed Chief Complaint Patient presents with: Eye Problem: Red under right eye x 3 days. Is getting redness under lefteye also HPI Payton Mcqueen is a 59 year old female who presents here today for Above Complaints.. Right Eye Irritation and Swelling: - Onset yesterday. - Noticed redness and swelling under the right eye and inside the eyelid. - Similar symptoms in the fall, treated with Polytrim eye drops. - Started using Polytrim eye drops again yesterday; reports some relief but symptoms persist. - Concerned about potential contagion. - Glasses irritate the eye, leading to removal. - Denies known trauma. Recent Viral Illness: - Recent viral illness with low-grade fever and ear discomfort. - Symptoms included crunching sensation in the ear when holding breath. - Currently experiencing drainage rather than crunching. - Mild sinus pain, more pronounced on the right side. COVID-19: - History of COVID-19 infection twice within five weeks. - Reports weird rashes since COVID-19 infections. - Feels she is now recovering and returning to normal. Past medical history, appointments, medications, allergies reviewed. Previous Medical History PAST MEDICAL HISTORY Diagnosis Date Acute gastritis without mention of hemorrhage Anxiety Benign neoplasm of stomach Cervical disc disorder with radiculopathy 02/18/2010 Cyst of ovary 01/01/2015 [facility] - see scanned documents Depressive disorder, not elsewhere classified Essential thrombocythemia (HCC) 06/02/2016 GERD (gastroesophageal reflux disease) Hypertension 08/28/11 IC (interstitial cystitis) Impaired fasting glucose 04/02/2010 Lumbar disc disease with radiculopathy 11/15/2010 Metabolic syndrome X Morbid obesity with BMI of 40.0-44.9, adult (HCC) 08/29/2013 Renal cyst, left 07/03/2016 18 mm, 06/18/16 Sciatica SI (sacroiliac) joint dysfunction 06/04/2011 Thoracolumbar back pain 07/20/2013 Unspecified hypothyroidism Urinary calculus, unspecified Renal stones Previous Surgical History PAST SURGICAL HISTORY Procedure Laterality Date CHOLECYSTECTOMY 1991 Cholecystectomy CYSTOSCOPY,DIL BLADDER,LOCAL ANESTH 01/18/14 EGD TRANSORAL BIOPSY SINGLE/MULTIPLE 04/09/2007 gastritis, gastric polyps KIDNEY SURGERY HX 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 6 weeks Erythromycin GI Upset Lisinopril Unknown Cough, hypotension Metformin GI Upset Mobic [Meloxicam] Vomiting Prochlorperazine Mental Status Change Agitation, felt ill Toradol [Ketorolac] Vomiting Vesicare [Solifenac* Rash Current Medications Current Outpatient Medications on File Prior to Visit Medication Sig EPINEPHrine (EPIPEN) 0.3 mg/0.3 mL auto-injector Inject 0.3 mL intramuscularly as needed. cetirizine (ZYRTEC) 10 mg tablet Take 1 tablet by mouth two times a day. ondansetron (ZOFRAN) 8 mg tablet Take 1 tablet by mouth every 8 hours as needed. omeprazole (PRILOSEC) 40 mg capsule Take 1 capsule by mouth once daily. levothyroxine (SYNTHROID) 175 mcg tablet Take 1 tablet by mouth once daily. Take on empty stomach. For Thyroid. busPIRone (BUSPAR) 15 mg tablet Take 1 tablet by mouth three times a day. sucralfate (CARAFATE) 1 gram tablet Take 1 tablet by mouth four times daily. Before meals and at bedtime buPROPion XL (WELLBUTRIN XL) 300 mg 24 hr tablet Take 1 tablet by mouth once daily. methenam/sod phos/mblue/hyoscy (UROGESIC-BLUE ORAL) Take 1 capsule by mouth once daily. mirabegron (MYRBETRIQ) 50 mg Tb24 Take 1 tablet by mouth once daily. SACCHAROMYCES BOULARDII (PROBIOTIC, S.BOULARDII, ORAL) Take 1 tablet by mouth once daily. No current facility-administered medications on file prior to visit. Social History Social History Tobacco Use Smoking status: Never Smokeless tobacco: Never Vaping Use Vaping status: Never Used Substance Use Topics Alcohol use: Y (more content not included)... Normal [facility] CNOVSPon 08-31-2024 CNOVSP Visit (SP) Office (H EMAWS) PAYTON MCQUEEN ([id number]) 1965 F Date Time Provider Department 08/31/24 12:40 PM GADIEL DAVIS During your visit today, we recorded the following information about you: Temperature Pulse Blood pressure Weight 97.1 degrees 77/minute 144/79 99.6 kg Gadiel Davis MD 08/31/2024 1:10 PM Signed (Elements copied from my note dated August 22, 2024, have been reviewed and updated where appropriate, and all reflect current assessment and medical decision making from today's encounter, August 31, 2024) HISTORY OF PRESENT ILLNESS: Paytongavino Mcqueen is a 59 year old female dx with ET in 2019, was on Hydrea but had nausea and vomiting. Since developed iron deficiency, Dr Pineda attributed to cystitis. Here for follow up was seeing heme at [facility] last few times. Looks like dx morphed from ET to PCV in notes. She has never had erythrocytosis. Dr Caputo' notes reviewed also Here for follow up, having issues with recurring rash, itchy, face hands break out, takes antihistamine which helps. Also kenalog shots resolves. Saw dermatology and allergy, tryptase level was 24, then 28. KIT mutation negative. Here for follow up, feeling very anxious about testing, also feels she wouldn't take imatinib even if diease is present. Long chat about alternative options. Her skin seems better, on zyrtec CLINICAL IMPRESSION: ET, JAK2 positive Elevated tryptase level, ?mastocytosis She is not keen on pursuing a work up at this time RECOMMENDATION/PLAN: 1. In lieu of scans and marrow biopsy will watch liver enzymes every 3 months, serial spleen US, update tryptase level prior to next visit as well. We will re visit idea of marrow biopsy if thre is further indication for such. Written and verbal health teaching given to patient, patient verbalizes understanding and agrees with treatment plan. PAST MEDICAL HISTORY Diagnosis Date Acute gastritis without mention of hemorrhage Anxiety Benign neoplasm of stomach Cervical disc disorder with radiculopathy 02/18/2010 Cyst of ovary 01/01/2015 [facility] - see scanned documents Depressive disorder, not elsewhere classified Essential thrombocythemia (HCC) 06/02/2016 GERD (gastroesophageal reflux disease) Hypertension 08/28/11 IC (interstitial cystitis) Impaired fasting glucose 04/02/2010 Lumbar disc disease with radiculopathy 11/15/2010 Metabolic syndrome X Morbid obesity with BMI of 40.0-44.9, adult (HCC) 08/29/2013 Renal cyst, left 07/03/2016 18 mm, 06/18/16 Sciatica SI (sacroiliac) joint dysfunction 06/04/2011 Thoracolumbar back pain 07/20/2013 Unspecified hypothyroidism Urinary calculus, unspecified Renal stones PAST SURGICAL HISTORY Procedure Laterality Date CHOLECYSTECTOMY 1991 Cholecystectomy CYSTOSCOPY,DIL BLADDER,LOCAL ANESTH 01/18/14 EGD TRANSORAL BIOPSY SINGLE/MULTIPLE 04/09/2007 gastritis, gastric polyps KIDNEY SURGERY HX 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 Valadez PAST SURGICAL HISTORY OF WISDOM TEETH EXTRACTIONS PAST SURGICAL HISTORY OF 05/2012 bladder hydrodistension X 2 PAST SURGICAL HISTORY OF 2014 pain injection lumbar- multiple PAST SURGICAL HISTORY OF Cyst removed from head FAMILY HISTORY Problem Relation Age of Onset No Known Problems Mother Diabetes Father Hypertension Father No Known Problems Brother No Known Problems Brother Cancer Maternal Grandmother Lymphoma Heart Maternal Grandfather hypertension Social History Tobacco Use Smoking status: Never Smokeless tobacco: Never Vaping Use Vaping status: Never Used Substance Use Topics Alcohol use: Yes Comment: rarely Drug use: No ALLERGIES: ALLERGIES Allergen Reactions Celebrex [Celecoxib] upsets stomach after prolonged use ie. 6 weeks Erythromycin GI Upset Lisinopril Unknown Cough, hypotension Metformin GI Upset Mobic [Meloxicam] Vomiting Prochlorperazine Mental Status Change Agitation, felt ill Toradol [Ketorolac] Vomiting Vesicare [Solifenac* Rash CURRENT OUTPATIENT MEDICATIONS: EPINEPHrine (EPIPEN) 0.3 mg/0.3 mL auto-injector Inject 0.3 mL intramuscularly as needed. cetirizine (ZYRTEC) 10 mg tablet Take 1 tablet by mouth two times a day. ondansetron (ZOFRAN) 8 mg tablet Take 1 tablet by mouth every 8 hours as needed. omeprazole (PRILOSEC) 40 mg capsule Take 1 capsule by mouth once daily. levothyroxine (SYNTHROID) 175 mcg tablet Take 1 tablet by mouth once daily. Take on empty stomach. For Thyroid. busPIRone (BUSPAR) 15 mg tablet Take 1 tablet by mouth three times a day. sucralfate (CARAFATE) 1 gram tablet Take 1 tablet by mouth four times daily. Before meals and at bedtime buPROPion XL (WELLBUTRIN XL) 300 mg 24 hr tablet Take 1 tablet by mouth once daily. methenam/sod phos/mblue/hyoscy (UROGESIC-BLUE ORAL) Take 1 capsule by mouth once daily. mirabegron (M (more content not included)... Normal [facility] [place] 08-31-2024 BUDN Telephone (JESI) PAYTON MCQUEEN ([id number]) 1965 F Date Time Provider Department 08/31/24 GADIEL DAVIS During your visit today, we recorded the following information about you: Gisel Rubio 08/31/2024 12:55 PM Signed Liver spleen us and labs 3 months, see back after these are done Patient wants to check her work schedule before scheduling Amanda Cox 09/01/2024 4:09 PM Signed Lvm for pt to call back and schedule. Arlin Gottlieb 09/01/2024 4:24 PM Signed Pt called back and stated she doesn't know her summer schedule yet and she will call in to schedule testing as soon as she knows Lela Escobar 10/21/2024 4:19 PM Addendum Liver spleen us and labs 3 months, see back after these are done ElhamKatie romoomi 10/25/2024 10:31 AM Signed Lvm for pt to call back and schedule. Amanda Cox Can Pss, Lela 10/25/2024 1:55 PM Signed Patient returned call stating she wants to speak with PCP before scheduling anything. She states she is no longer having symptoms and feels better than she ever has. Patient states she will contact office for scheduling after 12/05 office visit with PCP if he feels she should schedule appointments. Shari Duron LPN 11/01/2024 4:08 PM Signed Left message on identified voicemail , she had seen her PCP yesterday, has she made any decisions on furtther testing? Instructed to contact office to let us know. ALVINO Pena Pss, Lela 11/01/2024 4:25 PM Signed Patient called back stating she had visit with PCP and has decided not to have any further testing at this time. Shari Duron LPN 11/02/2024 9:[address] Davis informed , he will decide if pt. Needs any further F/U. ALVINO Pena Pamela S, LPN 11/02/2024 10:01 AM Signed Per pt. Can F/U PRN Shari Duron LPN Allergies As of Date: 08/31/2024 Noted Allergy Reaction CELEBREX (CELECOXIB) 05/28/2005 Comments: upsets stomach after prolonged use ie. 6 weeks ERYTHROMYCIN 02/05/2005 8 - GI Upset LISINOPRIL 01/23/2018 16 - Unknown Comments: Cough, hypotension METFORMIN 02/03/2019 8 - GI Upset MOBIC (MELOXICAM) 01/15/2023 11 - Vomiting PROCHLORPERAZINE 09/29/2016 1 - Mental Status Change Comments: Agitation, felt ill TORADOL (KETOROLAC) 01/15/2015 11 - Vomiting VESICARE (SOLIFENACIN) 11/20/2009 2 - Rash Date Reviewed: 08/31/2024 Reviewed by: Adele Ferrell Ma, MA - Fully Assessed Reason for Visit: avs 08/31 [Other] Prescriptions as of 11/03/2024 - ondansetron (ZOFRAN) 8 mg tablet Take 1 tablet by mouth every 8 hours as needed. - amoxicillin (AMOXIL) 500 mg capsule Take 1 capsule by mouth three times a day for 7 days. - fluconazole (DIFLUCAN) 150 mg tablet Take 1 tablet once. Can take another 1 tablet in 72 hours if needed. - levothyroxine (SYNTHROID) 175 mcg tablet Take 1 tablet by mouth once daily. Take on empty stomach. For Thyroid. - cetirizine (ZYRTEC) 10 mg tablet Take 1 tablet by mouth two times a day. - omeprazole (PRILOSEC) 40 mg capsule Take 1 capsule by mouth once daily. - busPIRone (BUSPAR) 15 mg tablet Take 1 tablet by mouth three times a day. - sucralfate (CARAFATE) 1 gram tablet Take 1 tablet by mouth four times daily. Before meals and at bedtime - buPROPion XL (WELLBUTRIN XL) 300 mg 24 hr tablet Take 1 tablet by mouth once daily. - methenam/sod phos/mblue/hyoscy (UROGESIC-BLUE ORAL) Take 1 capsule by mouth once daily. - mirabegron (MYRBETRIQ) 50 mg Tb24 Take 1 tablet by mouth once daily. - SACCHAROMYCES BOULARDII (PROBIOTIC, S.BOULARDII, ORAL) Take 1 tablet by mouth once daily. Meds Comments as of 09/26/2022: Was given Hewitt at [facility] ED visit Problem List As Of Date 08/31/2024 Noted Resolved Lumbago [M54.50] 02/06/2005 03/26/2016 Hypothyroidism [E03.9] Greater Trochanteric bursitis right [M76.899] 05/28/2005 03/26/2016 Sciatica [M54.30] 06/13/2005 03/26/2016 GENERALIZED ANXIETY DIS [F41.1] 06/11/2006 ESOPHAGEAL REFLUX [K21.9] 08/04/2006 Acute gastritis without mention of hemorrhage [*04/09/2007 03/26/2016 ADJUSTMENT DISORDER WITH DEPRESSED MOOD [F43.21]01/28/2008 BENIGN HYPERTENSION [I10] 03/17/2008 Contusion of chest wall [S20.219A] 06/09/2008 03/26/2016 Thoracic or lumbosacral neuritis or radiculitis*09/19/2008 03/26/2016 Cluster headache syndrome [G44.009] 04/07/2009 03/26/2016 Pelvic pain in female [R10.2] 04/25/2009 03/26/2016 Chronic interstitial cystitis [N30.10] 05/14/2009 Cervical radiculopathy [M54.12] 01/11/2010 03/26/2016 Brachial neuritis or radiculitis NOS [M54.12] 02/04/2010 03/26/2016 Cervical disc disorder with radiculopathy [M50.*02/18/2010 03/26/2016 Impaired glucose tolerance [R73.02] 04/02/2010 Lumbar disc disease with radiculopathy [M51.16] 11/15/2010 03/26/2016 Piriformis syndrome [G57.00] 01/20/2011 03/26/2016 Nonallopathic lesion of sacral region, (more content not included)... Normal [facility] CNCOon 08-22-2024 CNCO Letter Text Normal [facility] CNOVSPon 08-22-2024 CNOVSP Visit (SP) Office (H EMAWS) PAYTON MCQUEEN ([id number]) 1965 F Date Time Provider Department 08/22/24 10:30 AM GADIEL DAVIS During your visit today, we recorded the following information about you: Temperature Pulse Blood pressure Weight 96.6 degrees 76/minute 146/81 100 kg Height 1.628 m Gadiel Davis MD 08/22/2024 11:50 AM Signed (Elements copied from my note dated August 20, 2023, have been reviewed and updated where appropriate, and all reflect current assessment and medical decision making from today's encounter, August 22, 2024) HISTORY OF PRESENT ILLNESS: Payton Mcqueen is a 59 year old female dx with ET in 2019, was on Hydrea but had nausea and vomiting. Since developed iron deficiency, Dr Pineda attributed to cystitis. Here for follow up was seeing heme at [facility] last few times. Looks like dx morphed from ET to PCV in notes. She has never had erythrocytosis. Dr Caputo' notes reviewed also Here for follow up, having issues with recurring rash, itchy, face hands break out, takes antihistamine which helps. Also kenalog shots resolves. Saw dermatology and allergy, tryptase level was 24, then 28. KIT mutation negative. CLINICAL IMPRESSION: ET, JAK2 positive Not clear how much her iron deficiency is contributing to her thrombocytosis. At time of diagnosis, her H/H were normal with normal MCV RECOMMENDATION/PLAN: 1. CT scans, bone marrow biopsy 2, see back after testing, possible imatinib given KIT mutation negativity (assuming also marrow negative for KIT mutation) Written and verbal health teaching given to patient, patient verbalizes understanding and agrees with treatment plan. PAST MEDICAL HISTORY Diagnosis Date Acute gastritis without mention of hemorrhage Anxiety Benign neoplasm of stomach Cervical disc disorder with radiculopathy 02/18/2010 Cyst of ovary 01/01/2015 [facility] - see scanned documents Depressive disorder, not elsewhere classified Essential thrombocythemia (HCC) 06/02/2016 GERD (gastroesophageal reflux disease) Hypertension 08/28/11 IC (interstitial cystitis) Impaired fasting glucose 04/02/2010 Lumbar disc disease with radiculopathy 11/15/2010 Metabolic syndrome X Morbid obesity with BMI of 40.0-44.9, adult (HCC) 08/29/2013 Renal cyst, left 07/03/2016 18 mm, 06/18/16 Sciatica SI (sacroiliac) joint dysfunction 06/04/2011 Thoracolumbar back pain 07/20/2013 Unspecified hypothyroidism Urinary calculus, unspecified Renal stones PAST SURGICAL HISTORY Procedure Laterality Date CHOLECYSTECTOMY 1991 Cholecystectomy CYSTOSCOPY,DIL BLADDER,LOCAL ANESTH 01/18/14 EGD TRANSORAL BIOPSY SINGLE/MULTIPLE 04/09/2007 gastritis, gastric polyps KIDNEY SURGERY HX 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 Valadez PAST SURGICAL HISTORY OF WISDOM TEETH EXTRACTIONS PAST SURGICAL HISTORY OF 05/2012 bladder hydrodistension X 2 PAST SURGICAL HISTORY OF 2014 pain injection lumbar- multiple PAST SURGICAL HISTORY OF Cyst removed from head FAMILY HISTORY Problem Relation Age of Onset No Known Problems Mother Diabetes Father Hypertension Father No Known Problems Brother No Known Problems Brother Cancer Maternal Grandmother Lymphoma Heart Maternal Grandfather hypertension Social History Tobacco Use Smoking status: Never Smokeless tobacco: Never Vaping Use Vaping status: Never Used Substance Use Topics Alcohol use: Yes Comment: rarely Drug use: No ALLERGIES: ALLERGIES Allergen Reactions Celebrex [Celecoxib] upsets stomach after prolonged use ie. 6 weeks Erythromycin GI Upset Lisinopril Unknown Cough, hypotension Metformin GI Upset Mobic [Meloxicam] Vomiting Prochlorperazine Mental Status Change Agitation, felt ill Toradol [Ketorolac] Vomiting Vesicare [Solifenac* Rash CURRENT OUTPATIENT MEDICATIONS: cetirizine (ZYRTEC) 10 mg tablet Take 1 tablet by mouth two times a day. ondansetron (ZOFRAN) 8 mg tablet Take 1 tablet by mouth every 8 hours as needed. omeprazole (PRILOSEC) 40 mg capsule Take 1 capsule by mouth once daily. levothyroxine (SYNTHROID) 175 mcg tablet Take 1 tablet by mouth once daily. Take on empty stomach. For Thyroid. busPIRone (BUSPAR) 15 mg tablet Take 1 tablet by mouth three times a day. sucralfate (CARAFATE) 1 gram tablet Take 1 tablet by mouth four times daily. Before meals and at bedtime buPROPion XL (WELLBUTRIN XL) 300 mg 24 hr tablet Take 1 tablet by mouth once daily. methenam/sod phos/mblue/hyoscy (UROGESIC-BLUE ORAL) Take 1 capsule by mouth once daily. mirabegron (MYRBETRIQ) 50 mg Tb24 Take 1 tablet by mouth once daily. SACCHAROMYCES BOULARDII (PROBIOTIC, S.BOULARDII, ORAL) Take 1 tablet by mouth once daily. REVIEW OF SYSTEMS: GENERAL: No fever, night sweats, weight loss or malaise. All other reviewed and negative other than HPI. PHYSICAL EXA (more content not included)... Normal [facility] [place] 08-22-2024 AVINASH Telephone (JESI) PAYTON MCQUEEN ([id number]) 1965 F Date Time Provider Department 08/22/24 GADIEL DAVIS During your visit today, we recorded the following information about you: Gisel Rubio 08/22/2024 11:[address] scans when feasible-DONE Bone marrow biopsy under sedation [facility] STARTED FOR SCHEDULING See back 1 week after marrow biopsy Gisel Rubio 08/22/2024 3:26 PM Signed Spoke with patient to schedule OV after her 08/29 BMBX. Patient advised she now is feeling very anxious about everything and is requesting something to help calm her Please advise Jacquie oJseph, CATINA 08/22/2024 4:43 PM Signed Placed on his deck to address in the am. CATINA Lo Cathleen, RN 08/23/2024 2:[address] Davis, he would prefer she discuss with her PCP. Anjali Nowak RN Call to patient, aware of Rx for Ativan prior to procedure, dosing reviewed. Also, aware of above. Questions answered and she will reach out to her PCP. CATINA Lo Melissa 08/30/2024 8:10 AM Signed Patient called and canceled CT and moved office visit up to tomorrow to discuss testing with Dr. Davis. Allergies As of Date: 08/22/2024 Noted Allergy Reaction CELEBREX (CELECOXIB) 05/28/2005 Comments: upsets stomach after prolonged use ie. 6 weeks ERYTHROMYCIN 02/05/2005 8 - GI Upset LISINOPRIL 01/23/2018 16 - Unknown Comments: Cough, hypotension METFORMIN 02/03/2019 8 - GI Upset MOBIC (MELOXICAM) 01/15/2023 11 - Vomiting PROCHLORPERAZINE 09/29/2016 1 - Mental Status Change Comments: Agitation, felt ill TORADOL (KETOROLAC) 01/15/2015 11 - Vomiting VESICARE (SOLIFENACIN) 11/20/2009 2 - Rash Date Reviewed: 08/22/2024 Reviewed by: Shemar Jurado MA - Fully Assessed Reason for Visit: AVS 08/22 [Other] Prescriptions as of 08/30/2024 - EPINEPHrine (EPIPEN) 0.3 mg/0.3 mL auto-injector Inject 0.3 mL intramuscularly as needed. - cetirizine (ZYRTEC) 10 mg tablet Take 1 tablet by mouth two times a day. - ondansetron (ZOFRAN) 8 mg tablet Take 1 tablet by mouth every 8 hours as needed. - omeprazole (PRILOSEC) 40 mg capsule Take 1 capsule by mouth once daily. - levothyroxine (SYNTHROID) 175 mcg tablet Take 1 tablet by mouth once daily. Take on empty stomach. For Thyroid. - busPIRone (BUSPAR) 15 mg tablet Take 1 tablet by mouth three times a day. - sucralfate (CARAFATE) 1 gram tablet Take 1 tablet by mouth four times daily. Before meals and at bedtime - buPROPion XL (WELLBUTRIN XL) 300 mg 24 hr tablet Take 1 tablet by mouth once daily. - methenam/sod phos/mblue/hyoscy (UROGESIC-BLUE ORAL) Take 1 capsule by mouth once daily. - mirabegron (MYRBETRIQ) 50 mg Tb24 Take 1 tablet by mouth once daily. - SACCHAROMYCES BOULARDII (PROBIOTIC, S.BOULARDII, ORAL) Take 1 tablet by mouth once daily. Meds Comments as of 09/26/2022: Was given Hewitt at [facility] ED visit Problem List As Of Date 08/22/2024 Noted Resolved Lumbago [M54.50] 02/06/2005 03/26/2016 Hypothyroidism [E03.9] Greater Trochanteric bursitis right [M76.899] 05/28/2005 03/26/2016 Sciatica [M54.30] 06/13/2005 03/26/2016 GENERALIZED ANXIETY DIS [F41.1] 06/11/2006 ESOPHAGEAL REFLUX [K21.9] 08/04/2006 Acute gastritis without mention of hemorrhage [*04/09/2007 03/26/2016 ADJUSTMENT DISORDER WITH DEPRESSED MOOD [F43.21]01/28/2008 BENIGN HYPERTENSION [I10] 03/17/2008 Contusion of chest wall [S20.219A] 06/09/2008 03/26/2016 Thoracic or lumbosacral neuritis or radiculitis*09/19/2008 03/26/2016 Cluster headache syndrome [G44.009] 04/07/2009 03/26/2016 Pelvic pain in female [R10.2] 04/25/2009 03/26/2016 Chronic interstitial cystitis [N30.10] 05/14/2009 Cervical radiculopathy [M54.12] 01/11/2010 03/26/2016 Brachial neuritis or radiculitis NOS [M54.12] 02/04/2010 03/26/2016 Cervical disc disorder with radiculopathy [M50.*02/18/2010 03/26/2016 Impaired glucose tolerance [R73.02] 04/02/2010 Lumbar disc disease with radiculopathy [M51.16] 11/15/2010 03/26/2016 Piriformis syndrome [G57.00] 01/20/2011 03/26/2016 Nonallopathic lesion of sacral region, not else*02/10/2011 03/26/2016 Avascular necrosis of hip [M87.059] 04/15/2011 SI (sacroiliac) joint dysfunction [M53.3] 06/04/2011 03/26/2016 Obesity, Class III, BMI 40-49.9 (morbid obesity*10/01/2011 Lumbar facet arthropathy (HCC) [M47.816] 10/17/2011 03/26/2016 Lumbar spondylosis [M47.816] 10/17/2011 03/26/2016 Left shoulder strain [S46.912A] 10/29/2012 10/19/2014 Left renal mass [N28.89] 06/16/2013 03/26/2016 Thoracolumbar back pain [M54.50, M54.6] 07/20/2013 03/26/2016 Unspecified gastritis and gastroduodenitis with*09/15/2013 03/26/2016 Right sided abdominal pain [R10.9] 01/19/2015 03/26/2016 Strain of right knee and leg [S86.911A] 02/06/2016 03/26/2016 Overactive bladder [N32.81] 02/06/2016 Essential thrombocythe (more content not included)... Normal [facility] CNPNon 08-05-2024 CNPN Telephone (JESI) PAYTON MCQUEEN ([id number]) 1965 F Date Time Provider Department 08/05/24 GADIEL DAVIS During your visit today, we recorded the following information about you: Shari Duron LPN 08/05/2024 1:21 PM Signed Received referral from allergy and immunology for suspicion of mastocytosis, which may need a BMBX to confirm. Please schedule appt. With Dr. Davis ([facility]) 60 mins, records have been scanned in system also havew faxed records. ALVINO Pena Angela 08/05/2024 2:23 PM Signed Spoke with patient and scheduled with Dr Davis 1st available 08/22 Gisel Rubio Allergies As of Date: 08/05/2024 Noted Allergy Reaction CELEBREX (CELECOXIB) 05/28/2005 Comments: upsets stomach after prolonged use ie. 6 weeks ERYTHROMYCIN 02/05/2005 8 - GI Upset LISINOPRIL 01/23/2018 16 - Unknown Comments: Cough, hypotension METFORMIN 02/03/2019 8 - GI Upset MOBIC (MELOXICAM) 01/15/2023 11 - Vomiting PROCHLORPERAZINE 09/29/2016 1 - Mental Status Change Comments: Agitation, felt ill TORADOL (KETOROLAC) 01/15/2015 11 - Vomiting VESICARE (SOLIFENACIN) 11/20/2009 2 - Rash Date Reviewed: 08/02/2024 Reviewed by: Andreina Caicedo MA - Fully Assessed Prescriptions as of 08/05/2024 - cetirizine (ZYRTEC) 10 mg tablet Take 1 tablet by mouth two times a day. - ondansetron (ZOFRAN) 8 mg tablet Take 1 tablet by mouth every 8 hours as needed. - omeprazole (PRILOSEC) 40 mg capsule Take 1 capsule by mouth once daily. - levothyroxine (SYNTHROID) 175 mcg tablet Take 1 tablet by mouth once daily. Take on empty stomach. For Thyroid. - busPIRone (BUSPAR) 15 mg tablet Take 1 tablet by mouth three times a day. - sucralfate (CARAFATE) 1 gram tablet Take 1 tablet by mouth four times daily. Before meals and at bedtime - buPROPion XL (WELLBUTRIN XL) 300 mg 24 hr tablet Take 1 tablet by mouth once daily. - methenam/sod phos/mblue/hyoscy (UROGESIC-BLUE ORAL) Take 1 capsule by mouth once daily. - mirabegron (MYRBETRIQ) 50 mg Tb24 Take 1 tablet by mouth once daily. - SACCHAROMYCES BOULARDII (PROBIOTIC, S.BOULARDII, ORAL) Take by mouth once daily. Meds Comments as of 09/26/2022: Was given Hewitt at [facility] ED visit Problem List As Of Date 08/05/2024 Noted Resolved Lumbago [M54.50] 02/06/2005 03/26/2016 Hypothyroidism [E03.9] Greater Trochanteric bursitis right [M76.899] 05/28/2005 03/26/2016 Sciatica [M54.30] 06/13/2005 03/26/2016 GENERALIZED ANXIETY DIS [F41.1] 06/11/2006 ESOPHAGEAL REFLUX [K21.9] 08/04/2006 Acute gastritis without mention of hemorrhage [*04/09/2007 03/26/2016 ADJUSTMENT DISORDER WITH DEPRESSED MOOD [F43.21]01/28/2008 BENIGN HYPERTENSION [I10] 03/17/2008 Contusion of chest wall [S20.219A] 06/09/2008 03/26/2016 Thoracic or lumbosacral neuritis or radiculitis*09/19/2008 03/26/2016 Cluster headache syndrome [G44.009] 04/07/2009 03/26/2016 Pelvic pain in female [R10.2] 04/25/2009 03/26/2016 Chronic interstitial cystitis [N30.10] 05/14/2009 Cervical radiculopathy [M54.12] 01/11/2010 03/26/2016 Brachial neuritis or radiculitis NOS [M54.12] 02/04/2010 03/26/2016 Cervical disc disorder with radiculopathy [M50.*02/18/2010 03/26/2016 Impaired glucose tolerance [R73.02] 04/02/2010 Lumbar disc disease with radiculopathy [M51.16] 11/15/2010 03/26/2016 Piriformis syndrome [G57.00] 01/20/2011 03/26/2016 Nonallopathic lesion of sacral region, not else*02/10/2011 03/26/2016 Avascular necrosis of hip [M87.059] 04/15/2011 SI (sacroiliac) joint dysfunction [M53.3] 06/04/2011 03/26/2016 Obesity, Class III, BMI 40-49.9 (morbid obesity*10/01/2011 Lumbar facet arthropathy (HCC) [M47.816] 10/17/2011 03/26/2016 Lumbar spondylosis [M47.816] 10/17/2011 03/26/2016 Left shoulder strain [S46.912A] 10/29/2012 10/19/2014 Left renal mass [N28.89] 06/16/2013 03/26/2016 Thoracolumbar back pain [M54.50, M54.6] 07/20/2013 03/26/2016 Unspecified gastritis and gastroduodenitis with*09/15/2013 03/26/2016 Right sided abdominal pain [R10.9] 01/19/2015 03/26/2016 Strain of right knee and leg [S86.911A] 02/06/2016 03/26/2016 Overactive bladder [N32.81] 02/06/2016 Essential thrombocythemia (HCC) [D47.3] 06/02/2016 Leukocytosis [D72.829] 06/02/2016 Primary cancer of left kidney (HCC) [C64.2] 08/08/2016 06/04/2018 Popliteal cyst, right [M71.21] 05/01/2017 Acute lumbar myofascial strain [S39.012A] 03/15/2018 Renal oncocytoma, left [D30.02] 06/04/2018 Armijo's cyst of knee, left [M71.22] 06/21/2018 Insomnia [G47.00] 11/24/2019 Neck pain [M54.2] 06/12/2020 10/18/2020 Splenomegaly [R16.1] 10/18/2020 Chronic myeloproliferative disorder (HCC) [D47.*10/18/2020 Encounter Status:Closed by GIESL RUBIO on 08/05/24 [facility] CNOVon 08-02-2024 CNOV Office Visit (FAMPWS ) PAYTON MCQUEEN ([id number]) 1965 F Date Time Provider Department 08/02/24 9:40 AM SUE WEBERWS During your visit today, we recorded the following information about you: Pulse Respiration Blood pressure Weight 88/minute 18/minute 140/80 101 kg Sue Weber MD 08/02/2024 11:04 AM Signed Chief Complaint Patient presents with: ER F/U: Rash HPI Payton Marifer Richar is a 59 year old female who presents here today for ER Follow Up.. Pt presented to [facility] ER on 07/30/24 with rash. She is working with Freight Car Cleaner, Derm sent her to Allergy. ER doc told her to follow up with Freight Car Cleaner but also to follow up with PCP to help manage her rash. She is taking Zyrtec daily which usually keeps sx controlled. She stated when the rash and sx started she took the Hydroxyzine and her zyrtec but didn't really seem to be helping. She states the rash starts out red and feels like sunburn, on her face and scalp, face was swollen and scalp was bright red, itching. She has been dealing with this x several months. She is having a lot of testing done for the rash. Is waiting on mutation test results. She did get a kenalog injection while in the ER which takes a few days to help but it does wipe her out for a few days, makes her tired. The swelling is down, the itching and redness are improving. She states the rash has a pattern, flares up every 3-5 months. Sinus infection improved, almost done with antibiotic. She states she is stressed and frustrated with the rash and she is having issues with work because she has missed too much. She states she is not going to let this drive her crazy, states she has been working at the [employer] x 12 years. Wants a letter stating she has these chronic conditions which is why she has been missing so much work. Below copied from [employer]: Chief Complaint: Rash Detail of Chief Complaint: Rash and itching Informant: patient Narrative Narrative: Patient presents the emergency department with concern for an allergic reaction that she has had multiple times in the past. Patient states that she started having these episodes after having COVID-19. Patient states that typically she gets Kenalog and they resolved for 3 to 6 months. She is been seen by dermatology and has been diagnosed with perivascular dermatitis. Also currently seeing an grinder chipper and had some testing earlier in the week. 6 days ago she started with some itching. She has been using hydroxyzine for the itching. Lastly had a hard time sleeping because of all the itching to her face and her head and her body. This is the same way she typically presents. She has not had any new soaps or detergents or other allergens. She denies any new medications other than she recently started on Augmentin 2 days ago however her symptomatology started 6 days ago. She is taken Augmentin for some sinus disease. MDM Narrative Medical decision making narrative: Patient with history of chronic dermatitis that may be allergic. Typically responds to Kenalog. Currently being worked up by grinder chipper and has been to dermatology. Clinically looks well. Will treat with Kenalog 40 mg IM. Advised to follow-up with her grinder chipper. Past medical history, appointments, medications, allergies reviewed. Previous Medical History PAST MEDICAL HISTORY Diagnosis Date Acute gastritis without mention of hemorrhage Anxiety Benign neoplasm of stomach Cervical disc disorder with radiculopathy 02/18/2010 Cyst of ovary 01/01/2015 [facility] - see scanned documents Depressive disorder, not elsewhere classified Essential thrombocythemia (HCC) 06/02/2016 GERD (gastroesophageal reflux disease) Hypertension 08/28/11 IC (interstitial cystitis) Impaired fasting glucose 04/02/2010 Lumbar disc disease with radiculopathy 11/15/2010 Metabolic syndrome X Morbid obesity with BMI of 40.0-44.9, adult (HCC) 08/29/2013 Renal cyst, left 07/03/2016 18 mm, 06/18/16 Sciatica SI (sacroiliac) joint dysfunction 06/04/2011 Thoracolumbar back pain 07/20/2013 Unspecified hypothyroidism Urinary calculus, unspecified Renal stones Previous Surgical History PAST SURGICAL HISTORY Procedure Laterality Date CHOLECYSTECTOMY 1991 Cholecystectomy CYSTOSCOPY,DIL BLADDER,LOCAL ANESTH 01/18/14 EGD TRANSORAL BIOPSY SINGLE/MULTIPLE 04/09/2007 gastritis, gastric polyps KIDNEY SURGERY HX 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 Valadez PAST SURGICAL HISTORY OF WISDOM TEETH EXTRACTIONS PAST SURGICAL HISTORY OF 05/2012 bladder hydrodistension X 2 PAST SURGICAL HISTORY OF 2014 pain injection lumbar- multiple PAST SURGICAL HISTORY OF Cyst removed from head Family History FAMILY HISTORY Problem Relation Age of Onset Diabetes Father Hypertension Father Cancer Maternal Grandmother Lymphoma Heart Maternal Gr (more content not included)... [facility] Emergency Department Summary on 07-30-2024 Emergency Department Summary [facility] Medical Records Department [address] [place] [address] Emergency Department Summary 07/30/24 MR#: [id number] Acct: [id number] Name: PAYTON MCQUEEN Rep #: [id number] : 1965 59 From: Alexey Bundy DO PCP: Dr. Sue Weber MD Status:DEP ER Location: ED HPI History of Present Illness Chief Complaint: Rash Detail of Chief Complaint: Rash and itching Informant: patient Narrative Narrative: Patient presents the emergency department with concern for an allergic reaction that she has had multiple times in the past. Patient states that she started having these episodes after having COVID-19. Patient states that typically she gets Kenalog and they resolved for 3 to 6 months. She is been seen by dermatology and has been diagnosed with perivascular dermatitis. Also currently seeing an grinder chipper and had some testing earlier in the week. 6 days ago she started with some itching. She has been using hydroxyzine for the itching. Lastly had a hard time sleeping because of all the itching to her face and her head and her body. This is the same way she typically presents. She has not had any new soaps or detergents or other allergens. She denies any new medications other than she recently started on Augmentin 2 days ago however her symptomatology started 6 days ago. She is taken Augmentin for some sinus disease. [facility] Medical History (Updated 07/30/24 @ 15:[address] Alexey Bundy, DO) Allergic dermatitis Iron deficiency Thrombocytosis Leukocytosis Post-menopausal Depression Anxiety Thyroid disease Low iron Injury of back Gastric reflux Non-smoker History of stress test Hypertension Vaginal candidiasis Acute maxillary sinusitis, unspecified Shoulder pain Back pain Malignant tumor of kidney Thyroid disease Knee pain Severe headache Stomach ulcer Cancer Bladder distention Interstitial cystitis Pre-diabetes Essential thrombocythemia Home Medications ???Medication ???Instructions ???Recorded ???Last Taken ???Type buspirone 5 mg tablet 15 mg PO BID ANXIETY 08/28/1512/24 History mirabegron 25 mg tablet,extended 50 mg PO 1400 BLADDER 05/31/18 History release 24 hr wallace Wiggins B.animal is 10 1 ea PO DAILY G[employer] [facility] 01/16/19 01/16/19 History billion cell capsule bupropion HCl 150 mg tablet,12 hr 300 mg PO 1400 DEPRESSION 9 Unknown History sustained-release aspirin 81 mg tablet,delayed 81 mg PO DAILY 07/04/19 02/10/21 H istory release d-mannose 1 ea PO DAILY 02/28/20 Unknown His tory methenamine 120 mg-methyl.blue 1 tab PO PRN PRN Bladder Spasms Unknown History 10.8 mg-sod phos-phenyl benja-hyos tablet doxepin 10 mg capsule 10 mg PO QHS 12/03/21 Unknown Hist ory levothyroxine 150 mcg tablet 150 mcg PO DAILY 12/03/21 Unknown History levothyroxine 25 mcg tablet 150 mcg PO DAILY THYROID 12/03/21 Unknown History omeprazole 40 mg capsule,delayed 40 mg PO DAILY 12/03/21 Unknown Hi story release cyclobenzaprine 10 mg tablet 10 mg PO TID PRN Muscle Spasm #15 01/28/23 Unknown Rx TABLETS hydrocodone-acetaminophen 5-325mg 1 tab PO Q6H PRN PRN Pain 3 days 01/28/23 Unknown Rx 5mg-325mg #10 TABLETS hydroxyzine HCl 25 mg tablet 25 mg PO Q6H PRN itching #20 tabs 09/09/23 Unknown Rx ondansetron 4 mg disintegrating 8 mg (2 x 4 mg) PO Q8H PRN PRN Unknown Rx tablet Nausea #15 tabs fluconazole 150 mg tablet 150 mg PO Q3D 2 doses #2 tabs 01/23 09/15 Unknown Rx Allergy/AdvReac Type Severity Reaction Status Date / Time ketorolac tromethamine (From Allergy Severe Hives Verified 07/30/24 15:31 Toradol) solifenacin succinate (From Allergy Severe Hives Verified 07/30/24 15:31 Vesicare) vibegron (From Gemtesa) Allergy Severe Anaphylaxis Verified 07/30/24 15:31 erythromycin base AdvReac Severe Nausea/Vom/ Verified 07/30/24 15:31 (Erythromycin Base) Diarrhea celecoxib (From Celebrex) AdvReac Intermediate Nausea/Vom/ Verified 07/30/24 15:31 Diarrhea lisinopril AdvReac Mild Vomiting Verified 07/30/24 15:31 Family History Father Diabetes Heart disease Hypertension Grandmother Cancer Surgical History History of root canal procedure History of cholecystectomy partial kidney removed Social History number of children: 0 current occupational status: employed current occupation: [employer] Smoking Status: Never smoker alcohol intake: never substance use type: does not use seatbelt use: sometimes do you feel safe at home: Yes additional social history: single ROS ROS ED Review of Systems ROS [employer] (more content not included)... Normal [facility] CNOVon 07-28-2024 CNOV Office Visit (FAMPWS ) PAYTON MCQUEEN ([id number]) 1965 F Date Time Provider Department 07/28/24 9:40 AM SUE WEBER During your visit today, we recorded the following information about you: Temperature Pulse Respiration Blood pressure 98.8 degrees 78/minute 16/minute 130/80 Weight 102.5 kg Sue Weber MD 07/28/2024 11:34 AM Signed Chief Complaint Patient presents with: Illness HPI Payton Mcqueen is a 59 year old female who presents here today for illness. Pt c/o low grade fever and flu like sx. Also having hives. She states she was treated with Amoxicillin on Thu which was prescribed by her dentist on Thursday for tooth infection and inflammation. Denied any tooth pain or issues with tooth. She states that she started having low grade fevers over the weekend, chest congestion, coughing, fatigue. Not coughing up any phlegm. She states that the highest her temp as been was 101.6. Diarrhea, body ache, sore throat, chills. She felt last week she was having a good week and was feeling good until Thursday when she started feeling some chest congestion. Has been taking Probiotics more regularly. No SOB or wheezing, no sinus or ear congestion. No head congestion. Taking Zyrtec for allergies and if the allergies get really bad she takes the Hydroxyzine. States that she does get swelling with the rash in her legs. Rash started on Thursday. Saw Freight Car Cleaner 3 weeks ago who did more blood work. 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 She states that she had been having issues ever since having covid twice in past, denied being sick all the time prior to having covid. 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 She has a lot of stress with work. Has talked to someone about possible disability but she stated she really doesn't want to go that route. Past medical history, appointments, medications, allergies reviewed. Previous Medical History PAST MEDICAL HISTORY Diagnosis Date Acute gastritis without mention of hemorrhage Anxiety Benign neoplasm of stomach Cervical disc disorder with radiculopathy 02/18/2010 Cyst of ovary 01/01/2015 [facility] - see scanned documents Depressive disorder, not elsewhere classified Essential thrombocythemia (HCC) 06/02/2016 GERD (gastroesophageal reflux disease) Hypertension 08/28/11 IC (interstitial cystitis) Impaired fasting glucose 04/02/2010 Lumbar disc disease with radiculopathy 11/15/2010 Metabolic syndrome X Morbid obesity with BMI of 40.0-44.9, adult (HCC) 08/29/2013 Renal cyst, left 07/03/2016 18 mm, 06/18/16 Sciatica SI (sacroiliac) joint dysfunction 06/04/2011 Thoracolumbar back pain 07/20/2013 Unspecified hypothyroidism Urinary calculus, unspecified Renal stones Previous Surgical History PAST SURGICAL HISTORY Procedure Laterality Date CHOLECYSTECTOMY 1991 Cholecystectomy CYSTOSCOPY,DIL BLADDER,LOCAL ANESTH 01/18/14 EGD TRANSORAL BIOPSY SINGLE/MULTIPLE 04/09/2007 gastritis, gastric polyps KIDNEY SURGERY HX 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 6 weeks Erythromycin GI Upset Lisinopril Unknown Cough, hypotension Metformin GI Upset Mobic [Meloxicam] Vomiting Prochlorperazine Mental Status Change Agitation, felt ill Toradol [Ketorolac] Vomiting Vesicare [Solifenac* Rash Current Medications Current Outpatient Medications on File Prior to Visit Medication Sig ondansetron (ZOFRAN) 8 mg tablet Take 1 tablet by mouth every 8 hours as needed. omeprazole (PRILOSEC) 40 mg capsule Take 1 capsule by mouth once daily. levothyroxine (SYNTHROID) 175 mcg tablet Take 1 tablet by mouth once daily. Take on empty stomach. For Thyroid. busPIRone (BUSPAR) 15 mg tablet Take 1 tablet by mouth three times a day. sucralfate (CARAFATE) 1 gram tablet Take 1 tablet by mouth four times daily. Before meals and at bedtime buPROPion XL (WELLBUTRIN XL) 300 mg 24 hr tablet Take 1 tablet by mouth once daily. methenam/sod phos/mblue/hyoscy (UROGESIC-BLUE ORAL) Take 1 capsule by mouth once daily. mirabegron (MYRBETRIQ) 50 mg Tb24 Take 1 tablet by mouth once daily. SACCHAROMYCES BOULARDII (PROBIOTIC, S.BOULARDII, ORAL) Take by mouth once daily. N (more content not included)... [facility] CNPNon 07-25-2024 CNPN Telephone (HEMAWS) PAYTON MCQUEEN ([id number]) 1965 F Date Time Provider Department 07/25/24 GADIEL DAVIS During your visit today, we recorded the following information about you: Lela Escobar 07/25/2024 9:56 AM Signed Patient states she was referred from Derm to Allergy. She states she is to have some testing done for Allergy and she is asking to speak/see with Dr. Davis first. Please advise. Jacquie Nowak RN 07/25/2024 1:12 PM Signed Call to patient, she is asking if Dr. Davis would want to see her or go ahead with test the grinder chipper wants her to have. Updated Dr. Davis, he reviewed scanned notes. He advises to go ahead with grinder chipper lab/workup and to see us afterward as appropriate. Anjali Nowak RN Call to patient and aware of above. She will call back after she get the results from testing and what the grinder chipper is advising. She denies further needs/concerns. Anjali Nowak RN Allergies As of Date: 07/25/2024 Noted Allergy Reaction CELEBREX (CELECOXIB) 05/28/2005 Comments: upsets stomach after prolonged use ie. 6 weeks ERYTHROMYCIN 02/05/2005 8 - GI Upset LISINOPRIL 01/23/2018 16 - Unknown Comments: Cough, hypotension METFORMIN 02/03/2019 8 - GI Upset MOBIC (MELOXICAM) 01/15/2023 11 - Vomiting PROCHLORPERAZINE 09/29/2016 1 - Mental Status Change Comments: Agitation, felt ill TORADOL (KETOROLAC) 01/15/2015 11 - Vomiting VESICARE (SOLIFENACIN) 11/20/2009 2 - Rash Date Reviewed: 07/04/2024 Reviewed by: Mavis Shen MA - Fully Assessed Reason for Visit: Appointment [[id number]] Prescriptions as of 07/25/2024 - ondansetron (ZOFRAN) 8 mg tablet Take 1 tablet by mouth every 8 hours as needed. - omeprazole (PRILOSEC) 40 mg capsule Take 1 capsule by mouth once daily. - levothyroxine (SYNTHROID) 175 mcg tablet Take 1 tablet by mouth once daily. Take on empty stomach. For Thyroid. - busPIRone (BUSPAR) 15 mg tablet Take 1 tablet by mouth three times a day. - sucralfate (CARAFATE) 1 gram tablet Take 1 tablet by mouth four times daily. Before meals and at bedtime - buPROPion XL (WELLBUTRIN XL) 300 mg 24 hr tablet Take 1 tablet by mouth once daily. - methenam/sod phos/mblue/hyoscy (UROGESIC-BLUE ORAL) Take 1 capsule by mouth once daily. - mirabegron (MYRBETRIQ) 50 mg Tb24 Take 1 tablet by mouth once daily. - SACCHAROMYCES BOULARDII (PROBIOTIC, S.BOULARDII, ORAL) Take by mouth once daily. Meds Comments as of 09/26/2022: Was given [facility] at [facility] ED visit Problem List As Of Date 07/25/2024 Noted Resolved Lumbago [M54.50] 02/06/2005 03/26/2016 Hypothyroidism [E03.9] Greater Trochanteric bursitis right [M76.899] 05/28/2005 03/26/2016 Sciatica [M54.30] 06/13/2005 03/26/2016 GENERALIZED ANXIETY DIS [F41.1] 06/11/2006 ESOPHAGEAL REFLUX [K21.9] 08/04/2006 Acute gastritis without mention of hemorrhage [*04/09/2007 03/26/2016 ADJUSTMENT DISORDER WITH DEPRESSED MOOD [F43.21]01/28/2008 BENIGN HYPERTENSION [I10] 03/17/2008 Contusion of chest wall [S20.219A] 06/09/2008 03/26/2016 Thoracic or lumbosacral neuritis or radiculitis*09/19/2008 03/26/2016 Cluster headache syndrome [G44.009] 04/07/2009 03/26/2016 Pelvic pain in female [R10.2] 04/25/2009 03/26/2016 Chronic interstitial cystitis [N30.10] 05/14/2009 Cervical radiculopathy [M54.12] 01/11/2010 03/26/2016 Brachial neuritis or radiculitis NOS [M54.12] 02/04/2010 03/26/2016 Cervical disc disorder with radiculopathy [M50.*02/18/2010 03/26/2016 Impaired glucose tolerance [R73.02] 04/02/2010 Lumbar disc disease with radiculopathy [M51.16] 11/15/2010 03/26/2016 Piriformis syndrome [G57.00] 01/20/2011 03/26/2016 Nonallopathic lesion of sacral region, not else*02/10/2011 03/26/2016 Avascular necrosis of hip [M87.059] 04/15/2011 SI (sacroiliac) joint dysfunction [M53.3] 06/04/2011 03/26/2016 Obesity, Class III, BMI 40-49.9 (morbid obesity*10/01/2011 Lumbar facet arthropathy (HCC) [M47.816] 10/17/2011 03/26/2016 Lumbar spondylosis [M47.816] 10/17/2011 03/26/2016 Left shoulder strain [S46.912A] 10/29/2012 10/19/2014 Left renal mass [N28.89] 06/16/2013 03/26/2016 Thoracolumbar back pain [M54.50, M54.6] 07/20/2013 03/26/2016 Unspecified gastritis and gastroduodenitis with*09/15/2013 03/26/2016 Right sided abdominal pain [R10.9] 01/19/2015 03/26/2016 Strain of right knee and leg [S86.911A] 02/06/2016 03/26/2016 Overactive bladder [N32.81] 02/06/2016 Essential thrombocythemia (HCC) [D47.3] 06/02/2016 Leukocytosis [D72.829] 06/02/2016 Primary cancer of left kidney (HCC) [C64.2] 08/08/2016 06/04/2018 Popliteal cyst, right [M71.21] 05/01/2017 Acute lumbar myofascial strain [S39.012A] 03/15/2018 Renal oncocytoma, left [D30.02] 06/04/2018 Armijo's cyst of knee, left [M71.22] 06/21/2018 Insomnia [G47.00] 11/24/2019 Neck pain [M54.2] 06/12/2020 10/18/2020 Splenomegaly [R16.1] 10/18/2020 Chroni (more content not included)... [facility] CNOVon 07-04-2024 CNOV Office Visit (FAMPWS ) PAYTON MCQUEEN ([id number]) 1965 F Date Time Provider Department 07/04/24 3:20 PM [facility] During your visit today, we recorded the following information about you: Temperature Pulse Respiration Blood pressure 98.4 degrees 80/minute 18/minute 148/96 Weight 102.7 kg Sue Weber MD 07/04/2024 3:42 PM Signed Chief Complaint Patient presents with: Sore Throat: Cold symptoms HPI Payton Marifer Richar is a 59 year old female who presents here today for severe sore throat. Pt here today for an acute visit. Pt c/o of symptoms of sneezing and watery eyes on and Thursday last week, thought this was allergy related. Over the weekend she started experiencing a sore throat that gradually became worse, with a low grade fever. The sore throat is now affecting her voice. States she's not a had a sore throat in quite some time. The throat pain is described as a burning and sore pain. Denies anything in her chest, but mainly up in her sinuses. Ears don't really feel like an issue at this time. Has not really been taking anything for cold symptoms. Has taken Advil for pain relief and using cough drops. Reports she's been doing really good until this. She did not go to work today as she didn't know what to do and unsure what she should do in regards to her cold symptoms. Reports the [facility] has a lot of Norovirus going around along with other illnesses such as strep and Flu. Past medical history, appointments, medications, allergies reviewed. Previous Medical History PAST MEDICAL HISTORY Diagnosis Date Acute gastritis without mention of hemorrhage Anxiety Benign neoplasm of stomach Cervical disc disorder with radiculopathy 02/18/2010 Cyst of ovary 01/01/2015 [facility] - see scanned documents Depressive disorder, not elsewhere classified Essential thrombocythemia (HCC) 06/02/2016 GERD (gastroesophageal reflux disease) Hypertension 08/28/11 IC (interstitial cystitis) Impaired fasting glucose 04/02/2010 Lumbar disc disease with radiculopathy 11/15/2010 Metabolic syndrome X Morbid obesity with BMI of 40.0-44.9, adult (HCC) 08/29/2013 Renal cyst, left 07/03/2016 18 mm, 06/18/16 Sciatica SI (sacroiliac) joint dysfunction 06/04/2011 Thoracolumbar back pain 07/20/2013 Unspecified hypothyroidism Urinary calculus, unspecified Renal stones Previous Surgical History PAST SURGICAL HISTORY Procedure Laterality Date CHOLECYSTECTOMY 1991 Cholecystectomy CYSTOSCOPY,DIL BLADDER,LOCAL ANESTH 01/18/14 EGD TRANSORAL BIOPSY SINGLE/MULTIPLE 04/09/2007 gastritis, gastric polyps KIDNEY SURGERY HX 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 6 weeks Erythromycin GI Upset Lisinopril Unknown Cough, hypotension Metformin GI Upset Mobic [Meloxicam] Vomiting Prochlorperazine Mental Status Change Agitation, felt ill Toradol [Ketorolac] Vomiting Vesicare [Solifenac* Rash Current Medications Current Outpatient Medications on File Prior to Visit Medication Sig ondansetron (ZOFRAN) 8 mg tablet Take 1 tablet by mouth every 8 hours as needed. omeprazole (PRILOSEC) 40 mg capsule Take 1 capsule by mouth once daily. levothyroxine (SYNTHROID) 175 mcg tablet Take 1 tablet by mouth once daily. Take on empty stomach. For Thyroid. busPIRone (BUSPAR) 15 mg tablet Take 1 tablet by mouth three times a day. sucralfate (CARAFATE) 1 gram tablet Take 1 tablet by mouth four times daily. Before meals and at bedtime buPROPion XL (WELLBUTRIN XL) 300 mg 24 hr tablet Take 1 tablet by mouth once daily. methenam/sod phos/mblue/hyoscy (UROGESIC-BLUE ORAL) Take 1 capsule by mouth once daily. mirabegron (MYRBETRIQ) 50 mg Tb24 Take 1 tablet by mouth once daily. SACCHAROMYCES BOULARDII (PROBIOTIC, S.BOULARDII, ORAL) Take by mouth once daily. No current facility-administered medications on file prior to visit. Social History Social History Tobacco Use Smoking status: Never Smokeless tobacco: Never Vaping Use Vaping status: Never Used Substance Use Topics Alcohol use: Yes Comment: rarely Drug use: No EXAM: BP 148/96 (BP Site: Left Arm, BP Position: Sitting, BP Cuff Size: Regular Adult) Pulse 80 Temp 36.9 ?C (98.4 ?F) (Tympanic) Resp 18 Wt 102.7 kg (226 lb 6.6 oz) LMP (more content not included)... Normal [facility] CNOVon 06-21-2024 CNOV Office Visit (FAMPWS ) PAYTON MCQUEEN ([id number]) 1965 F Date Time Provider Department 06/21/24 4:40 PM SUE WEBER During your visit today, we recorded the following information about you: Pulse Respiration Blood pressure Weight 88/minute 16/minute 122/70 101.7 kg Sue Weber MD 06/21/2024 4:54 PM Signed Chief Complaint Patient presents with: Arm Pain: Left upper arm HPI Payton Mcqueen is a 59 year old female who presents here today for an acute visit. Pt here today with c/o of pain to upper left arm and radiates in the upper arm, she has felt a with a lump or cyst that she noticed over the weekend. She noticed the lump before and it went away on it's own. The arm has been painful off and on x 2 weeks. No injury. She used ice and heat, ibuprofen for pain. The lump is not getting bigger, thinks it might actually have gotten smaller. She states it is hard to sleep at night when she lays on that side. No numbness/tingling into the arm. No swelling to the arm, no redness, rashes. No pain into the shoulder or past elbow. Pt rates pain 8/10, burning, sharp, sore, grabbing, radiating pain off and on x 2 weeks. The lump does not seem to be getting worse or larger in size. Offered Prednisone but pt states it's hard for me to take Prednisone. Advised her to continue with OTC pain relievers. Past medical history, appointments, medications, allergies reviewed. Previous Medical History PAST MEDICAL HISTORY Diagnosis Date Acute gastritis without mention of hemorrhage Anxiety Benign neoplasm of stomach Cervical disc disorder with radiculopathy 02/18/2010 Cyst of ovary 01/01/2015 [facility] - see scanned documents Depressive disorder, not elsewhere classified Essential thrombocythemia (HCC) 06/02/2016 GERD (gastroesophageal reflux disease) Hypertension 08/28/11 IC (interstitial cystitis) Impaired fasting glucose 04/02/2010 Lumbar disc disease with radiculopathy 11/15/2010 Metabolic syndrome X Morbid obesity with BMI of 40.0-44.9, adult (HCC) 08/29/2013 Renal cyst, left 07/03/2016 18 mm, 06/18/16 Sciatica SI (sacroiliac) joint dysfunction 06/04/2011 Thoracolumbar back pain 07/20/2013 Unspecified hypothyroidism Urinary calculus, unspecified Renal stones Previous Surgical History PAST SURGICAL HISTORY Procedure Laterality Date CHOLECYSTECTOMY 1991 Cholecystectomy CYSTOSCOPY,DIL BLADDER,LOCAL ANESTH 01/18/14 EGD TRANSORAL BIOPSY SINGLE/MULTIPLE 04/09/2007 gastritis, gastric polyps KIDNEY SURGERY HX 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 6 weeks Erythromycin GI Upset Lisinopril Unknown Cough, hypotension Metformin GI Upset Mobic [Meloxicam] Vomiting Prochlorperazine Mental Status Change Agitation, felt ill Toradol [Ketorolac] Vomiting Vesicare [Solifenac* Rash Current Medications Current Outpatient Medications on File Prior to Visit Medication Sig ondansetron (ZOFRAN) 8 mg tablet Take 1 tablet by mouth every 8 hours as needed. omeprazole (PRILOSEC) 40 mg capsule Take 1 capsule by mouth once daily. levothyroxine (SYNTHROID) 175 mcg tablet Take 1 tablet by mouth once daily. Take on empty stomach. For Thyroid. busPIRone (BUSPAR) 15 mg tablet Take 1 tablet by mouth three times a day. sucralfate (CARAFATE) 1 gram tablet Take 1 tablet by mouth four times daily. Before meals and at bedtime buPROPion XL (WELLBUTRIN XL) 300 mg 24 hr tablet Take 1 tablet by mouth once daily. methenam/sod phos/mblue/hyoscy (UROGESIC-BLUE ORAL) Take 1 capsule by mouth once daily. mirabegron (MYRBETRIQ) 50 mg Tb24 Take 1 tablet by mouth once daily. SACCHAROMYCES BOULARDII (PROBIOTIC, S.BOULARDII, ORAL) Take by mouth once daily. No current facility-administered medications on file prior to visit. Social History Social History Tobacco Use Smoking status: Never Smokeless tobacco: Never Vaping Use Vaping status: Never Used Substance Use Topics Alcohol use: Yes Comment: rarely Drug use: No EXAM: BP 122/70 Pulse 88 Resp 16 Wt 101.7 kg (224 lb 3.3 oz) LMP 05/09/2018 (Approximate) BMI 39.72 kg/m? General Appearance: Well appearing, alert, in no acute distress, well-hydrated, well nourished. and Overweight. Extremities: left arm, pain with movement, tenderness to l (more content not included)... Normal [facility] C1 EST Inhibitor, Functional on 06-11-2024 C1 EST INH FUNC >[address] [facility] Comment on above: Result Comment: Resu lt Units: %mean normal Abnormal <41 Equivocal 41 - 67 Normal >67 Performed at: [facility] [address] [id number] [place] Manager: Lv Palma PhD, Phone: [phone] Performed at: [facility] [address] [id number] [place]is Manager: Nataliya Ha MD, Phone: [phone] Performed By: #### L 3400.5105, L3100.5800, L3400.4350 ####[facility] [address] [place], [address] Complement C4on 06-11-2024 COMPLEMENT, C4 24 mg/dL Normal 12-38 [facility] Comment on above: Performed By: #### L 3400.5105, L3100.5800, L3400.4350 ####[facility] [address] [place], [address] Tryptaseon 06-11-2024 TRYPTASE 24.3 ug/L High 2.2-13.2 [facility] Comment on above: Performed By: #### L 3400.5105, L3100.5800, L3400.4350 ####[facility] [address] [place], [address] Complement C1 esterase inhib itor.functional QlOrdered By: JULIETTE BRIAN on 06-07-2024 Functional C1 Esterase Inhibitor >[address] [facility] Comment on above: Result Units: %mean normal Abnormal <41 Equivocal 41 - 67 Normal >67Performed at: [facility] [address] [place], [place] [id number] Director: Lv Palma PhD, Phone: [phone] at: [facility] [address] [id number] Director: Nataliya Ha MD, Phone: [phone] Complement C4 [Mass/Vol]Orde red By: JULIETTE BRIAN on 06-07-2024 Complement C4 24 mg/dL 12-38 [facility] TryptaseOrdered By: JULIETTE DONG on 06-07-2024 Tryptase 24.3 ug/L High 2.2-13.2 [facility] CNOVon 06-03-2024 CNOV Office Visit (FAMPWS ) PAYTON MCQUEEN ([id number]) 1965 F Date Time Provider Department 06/03/24 3:00 PM [facility] During your visit today, we recorded the following information about you: Pulse Respiration Blood pressure Weight 78/minute 16/minute 142/92 103.9 kg Sue Weber MD 06/03/2024 3:46 PM Signed Chief Complaint Patient presents with: F/U 3 Month HPI Payton Mcqueen is a 58 year old female who presents here today for 3 month follow up. Here today for a 3 month follow up. GI/Uro - Notes having a lot of stomach issues. Feels her stomach is upset due to her ongoing health issues. Does feel it's doing slightly better, no issues at this time. Feels like she has a lot of pressure/gas at times. Not using Miralax at this time, was using for constipation. Hx of OAB, taking Mybetriq 50 mg once daily. Follows with Dr. Andrade. Had tried Gemtesa in the past but caused hives. GERD: Taking Carafate 1 gram QID and Prilosec 40 mg daily. Thyroid: Taking Synthroid 175 mcg daily. No missed dosages. SHYELA: Stable; taking Wellbutrin xl 300 mg daily and Buspar 15 mg 1 pill TID. Pt has chronic anxiety about her health. Notes that she's not like this in his workplace and needs to transfer how she is outside to when she comes into office visits. HTN - Has had elevated readings over the last several visits, chronically. Currently on no medications. Pt reports she's an anxious person and tends to be elevated when in the office. [facility] recently and her diastolic number was in the 70's. Insomnia - Reports chronic issues with sleep, doing better. Does have increased issues when thyroid is off. Current issue at this time is she falls asleep but wakes up a couple hours later and has difficulty falling back asleep. Had skin biopsy done through [facility] on 05/11/24. 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 Pt notes this flared up on her legs on 05/11/24, woke up with this. States her legs looked like she was sun burnt. Was not treated by [facility] and was treated with a Kenalog shot through the [facility]. Recommended follow up with [facility] for ongoing plan. Pt would like to have glands checked to make sure she doesn't have anything going on her sinuses. Was having some issues with her sinuses. Hem/Onc - Follows with Dr. Davis from chronic myeloproliferative disorder. Has been having chronic fever as of lately. Pt does have chronic elevated WBC, RBC, Hematocrit and Platelet count. Past medical history, appointments, medications, allergies reviewed. Previous Medical History PAST MEDICAL HISTORY Diagnosis Date Acute gastritis without mention of hemorrhage Anxiety Benign neoplasm of stomach Cervical disc disorder with radiculopathy 02/18/2010 Cyst of ovary 01/01/2015 [facility] - see scanned documents Depressive disorder, not elsewhere classified Essential thrombocythemia (HCC) 06/02/2016 GERD (gastroesophageal reflux disease) Hypertension 08/28/11 IC (interstitial cystitis) Impaired fasting glucose 04/02/2010 Lumbar disc disease with radiculopathy 11/15/2010 Metabolic syndrome X Morbid obesity with BMI of 40.0-44.9, adult (HCC) 08/29/2013 Renal cyst, left 07/03/2016 18 mm, 06/18/16 Sciatica SI (sacroiliac) joint dysfunction 06/04/2011 Thoracolumbar back pain 07/20/2013 Unspecified hypothyroidism Urinary calculus, unspecified Renal stones Previous Surgical History PAST SURGICAL HISTORY Procedure Laterality Date CHOLECYSTECTOMY 1991 Cholecystectomy CYSTOSCOPY,DIL BLADDER,LOCAL ANESTH 01/18/14 EGD TRANSORAL BIOPSY SINGLE/MULTIPLE 04/09/2007 gastritis, gastric polyps KIDNEY SURGERY HX 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 6 weeks Erythromycin GI Upset Lisinopril Unknown Cough, hypotension Metformin GI Upset Mobic [Meloxicam] Vomiting Prochlorperazine Mental Status Change Agitation, felt ill Toradol [Ketorolac] Vomiting Vesicare [Solifenac* Rash Current Medications Current Outpatient Medications on File Prior to Visit Medication Sig ondansetron (ZOFRAN) 8 mg tablet Take 1 tablet by mouth every 8 hours as needed. omeprazole (PRILOSEC) 40 mg capsule Take 1 capsule b (more content not included)... Normal [facility] CBC W Auto Differential pane l (Bld)on 06-01-2024 Anisocytosis Ql (Bld) Present Normal [facility] Comment on above: Order Comment: Speci men Type: BLOOD SPECIMENOrdering Facility: [facility] Address: [address] [place] [address] Performed By: #### 5 7021-8 ####[facility] LABCLIA [id number] [facility] [id number] [place] [address] [place] Basophils (Bld) [#/Vol] 0.59 10*3/uL High <0.11 [facility] Comment on above: Order Comment: Speci men Type: BLOOD SPECIMENOrdering Facility: [facility] Address: [address] [place] [address] Performed By: #### 5 7021-8 ####[facility] LABCLIA [id number] [place] [address] [place] Basophils/100 WBC (Bld) 2.0 % Normal [facility] Comment on above: Order Comment: Speci men Type: BLOOD SPECIMENOrdering Facility: [facility] Address: [address] [place] [address] Performed By: #### 5 7021-8 ####[facility] LABCLIA [id number] [place] [address] [place] Differential cell count method Nom (Bld) Manual Normal [facility] Comment on above: Order Comment: Speci men Type: BLOOD SPECIMENOrdering Facility: [facility] Address: [address] [place] [address] Performed By: #### 5 7021-8 ####[facility] LABCLIA [id number] [place] [address] [place] Eosinophils (Bld) [#/Vol] 0.30 10*3/uL Normal <0.46 [facility] Comment on above: Order Comment: Speci men Type: BLOOD SPECIMENOrdering Facility: [facility] Address: [address] [place] [address] Performed By: #### 5 7021-8 ####[facility] LABCLIA [id number] [place] [address] [place] Eosinophils/100 WBC (Bld) 1.0 % Normal [facility] Comment on above: Order Comment: Speci men Type: BLOOD SPECIMENOrdering Facility: [facility] Address: [address] [place] [address] Performed By: #### 5 7021-8 ####[facility] LABCLIA [id number] [place] [address] [place] Erythrocyte distribution width (RBC) [Ratio] 24.7 % High 11.5-15.0 [facility] Comment on above: Order Comment: Speci men Type: BLOOD SPECIMENOrdering Facility: [facility] Address: [address] [place] [address] Performed By: #### 5 7021-8 ####[facility] LABCLIA [id number] [place] [address] [place] Hematocrit (Bld) [Volume fraction] 51.1 % High 36.0-46.0 [facility] Comment on above: Order Comment: Speci men Type: BLOOD SPECIMENOrdering Facility: [facility] Address: [address] [place] [address] Performed By: #### 5 7021-8 ####[facility] LABCLIA [id number] [place] [address] [place] Hemoglobin (Bld) [Mass/Vol] 15.0 g/dL Normal 11.5-15.5 [facility] Comment on above: Order Comment: Speci men Type: BLOOD SPECIMENOrdering Facility: [facility] Address: [address] [place] [address] Performed By: #### 5 7021-8 ####[facility] LABIA [id number] [place] [address] [place] Lymphocytes (Bld) [#/Vol] 2.07 10*3/uL Normal 1.00-4.00 [facility] Comment on above: Order Comment: Speci men Type: BLOOD SPECIMENOrdering Facility: [facility] Address: [address] [place] [address] Performed By: #### 5 7021-8 ####[facility] LABCLIA [id number] [place] [address] [place] Lymphocytes/100 WBC (Bld) 7.0 % Normal [facility] Comment on above: Order Comment: Speci men Type: BLOOD SPECIMENOrdering Facility: [facility] Address: [address] [place] [address] Performed By: #### 5 7021-8 ####[facility] LABIA [id number] [place] [address] [place] MCH (RBC) [Entitic mass] 22.2 pg Low 26.0-34.0 [facility] Comment on above: Order Comment: Speci men Type: BLOOD SPECIMENOrdering Facility: [facility] Address: [address] [place] [address] Performed By: #### 5 7021-8 ####[facility] [id number] [place] [address] [place] MCHC (RBC) [Mass/Vol] 29.4 g/dL Low 30.5-36.0 [facility] Comment on above: Order Comment: Speci men Type: BLOOD SPECIMENOrdering Facility: [facility] Address: [address] [place] [address] Performed By: #### 5 7021-8 ####[facility] [id number] [place] [address] [place] MCV (RBC) [Entitic vol] 75.7 fL Low 80.0-100.0 [facility] Comment on above: Order Comment: Speci men Type: BLOOD SPECIMENOrdering Facility: [facility] Address: [address] [place] [address] Performed By: #### 5 7021-8 ####[facility] [id number] [place] [address] [place] Monocytes (Bld) [#/Vol] 0.30 10*3/uL Normal <0.87 [facility] Comment on above: Order Comment: Speci men Type: BLOOD SPECIMENOrdering Facility: [facility] Address: [address] [place] [address] Performed By: #### 5 7021-8 ####[facility] [id number] [place] [address] [place] Monocytes/100 WBC (Bld) 1.0 % Normal [facility] Comment on above: Order Comment: Speci men Type: BLOOD SPECIMENOrdering Facility: [facility] Address: [address] [place] [address] Performed By: #### 5 7021-8 ####[facility] LABCLIA [id number] [place] [address] [place] Neutrophils (Bld) [#/Vol] 26.31 10*3/uL High 1.45-7.50 [facility] Comment on above: Order Comment: Speci men Type: BLOOD SPECIMENOrdering Facility: [facility] Address: [address] [place] [address] Performed By: #### 5 7021-8 ####[facility] LABCLIA [id number] [place] [address] [place] Neutrophils/100 WBC (Bld) 89.0 % Normal [facility] Comment on above: Order Comment: Speci men Type: BLOOD SPECIMENOrdering Facility: [facility] Address: [address] [place] [address] Performed By: #### 5 7021-8 ####[facility] LABCLIA [id number] [place] [address] [place] Nucleated RBC (Bld) [#/Vol] 0.30 10*3/uL High <0.01 [facility] Comment on above: Order Comment: Speci men Type: BLOOD SPECIMENOrdering Facility: [facility] Address: [address] [place] [address] Performed By: #### 5 7021-8 ####[facility] LABCLIA [id number] [place] [address] [place] Nucleated RBC/100 WBC (Bld) [Ratio] 1.0 /100 WBC Normal [facility] Comment on above: Order Comment: Speci men Type: BLOOD SPECIMENOrdering Facility: [facility] Address: [address] [place] [address] Performed By: #### 5 7021-8 ####[facility] LABCLIA [id number] [place] [address] [place] Ovalocytes LM Ql (Bld) Few Normal [facility] Comment on above: Order Comment: Speci men Type: BLOOD SPECIMENOrdering Facility: [facility] Address: [address] [place] [address] Performed By: #### 5 7021-8 ####[facility] LABIA [id number] [place] [address] [place] Platelet mean volume (Bld) [Entitic vol] 10.0 fL Normal 9.0-12.7 [facility] Comment on above: Order Comment: Speci men Type: BLOOD SPECIMENOrdering Facility: [facility] Address: [address] [place] [address] Performed By: #### 5 7021-8 ####[facility] LABIA [id number] [place] [address] [place] Platelets (Bld) [#/Vol] 484 10*3/uL High 150-400 [facility] Comment on above: Order Comment: Speci men Type: BLOOD SPECIMENOrdering Facility: [facility] Address: [address] [place] [address] Performed By: #### 5 7021-8 ####[facility] LABIA [id number] [place] [address] [place] Platelets Estimate (Bld) [#/Vol] Increased Normal [facility] Comment on above: Order Comment: Speci men Type: BLOOD SPECIMENOrdering Facility: [facility] Address: [address] [place] [address] Performed By: #### 5 7021-8 ####[facility] LABIA [id number] [place] [address] [place] Polychromasia LM Ql (Bld) Slight Normal [facility] Comment on above: Order Comment: Speci men Type: BLOOD SPECIMENOrdering Facility: [facility] Address: [address] [place] [address] Performed By: #### 5 7021-8 ####[facility] LABCLIA [id number] [place] [address] [place] RBC (Bld) [#/Vol] 6.75 10*6/uL High 3.90-5.20 [facility] Comment on above: Order Comment: Speci men Type: BLOOD SPECIMENOrdering Facility: [facility] Address: [address] [place] [address] Performed By: #### 5 7021-8 ####[facility] LABCLIA [id number] [place] [address] [place] RBC FRAGMENTS Few Abnormal None Seen [facility] Comment on above: Order Comment: Speci men Type: BLOOD SPECIMENOrdering Facility: [facility] Address: [address] [place] [address] Performed By: #### 5 7021-8 ####[facility] LABCLIA [id number] [place] [address] [place] RED CELL MORPH Reviewed: see result s of individual morphologies Normal [facility] Comment on above: Order Comment: Speci men Type: BLOOD SPECIMENOrdering Facility: [facility] Address: [address] [place] [address] Performed By: #### 5 7021-8 ####[facility] LABCLIA [id number] [place] [address] [place] WBC (Bld) [#/Vol] 29.56 10*3/uL High 3.70-11.00 [facility] Comment on above: Order Comment: Speci men Type: BLOOD SPECIMENOrdering Facility: [facility] Address: [address] [place] [address] Performed By: #### 5 7021-8 ####[facility] LABCLIA [id number] [place] [id number] [place] Ferritin SerPl-mCncon 2024 Ferritin [Mass/Vol] 25.3 ng/mL Normal 14.7-205.1 [facility] Comment on above: Order Comment: Speci men Type: BLOOD SPECIMENOrdering Facility: [facility] Address: [address] [place] [address] Performed By: #### 5 0190-8, 3016-3, 2276-4, 3024-7 ####[facility] LABCLIA [id number] [place] [address] [place] Iron and Iron binding capaci ty panelon 06-01-2024 Iron [Mass/Vol] 24 ug/dL Low 41-186 [facility] Comment on above: Order Comment: Speci men Type: BLOOD SPECIMENOrdering Facility: [facility] Address: [address] [place] [address] Performed By: #### 5 0190-8, 3016-3, 2276-4, 3024-7 ####[facility] LABIA [id number] [place] [address] [place] Iron binding capacity [Mass/Vol] 429 ug/dL High 232-386 [facility] Comment on above: Order Comment: Speci men Type: BLOOD SPECIMENOrdering Facility: [facility] Address: [address] [place] [address] Performed By: #### 5 0190-8, 3016-3, 2276-4, 3024-7 ####[facility] LABIA [id number] [place] [address] [place] Iron/TIBC [Molar ratio] 5.6 % Low 15.0-57.0 [facility] Comment on above: Order Comment: Speci men Type: BLOOD SPECIMENOrdering Facility: [facility] Address: [address] [place] [address] Performed By: #### 5 0190-8, 3016-3, 2276-4, 3024-7 ####[facility] LABCLIA [id number] [address] [address] [place] T4 Free SerPl-mCncon 025 Free T4 [Mass/Vol] 1.6 ng/dL Normal 0.9-1.7 [facility] Comment on above: Order Comment: Speci men Type: BLOOD SPECIMENOrdering Facility: [facility] Address: [address] [place] [address] Performed By: #### 5 0190-8, 3016-3, 6-4, 3024-7 ####[facility] LABCLIA [id number] [place] [id number] [place] TSH SerPl-aCncon 06-01-2024 TSH Qn 3.470 m[IU]/L Normal 0.270-4.200 [facility] Comment on above: Order Comment: Speci men Type: BLOOD SPECIMENOrdering Facility: [facility] Address: [address] [place] [address] Performed By: #### 5 0190-8, 3016-3, 6-4, 3024-7 ####[facility] LABCLIA [id number] [place] [id number] [place] Vit B12 SerPl-mCncon 025 Cobalamin (Vitamin B12) [Mass/Vol] 981 pg/mL Normal 232-1245 [facility] Comment on above: Order Comment: Speci men Type: BLOOD SPECIMENOrdering Facility: [facility] Address: [address] [place] [address] Performed By: #### 2 132-9 ####[facility] LABCLIA [id number] [place] [id number] [place] Urgent Care Visit Reporton 1 07-12-2023 Urgent Care Visit Report [facility] [address], [address] [place] [address] OFFICE VISIT Date of Service: 05/11/24 MR#: [id number] Acct: [id number] Name: PAYTON MCQUEEN Rep #: [id number] : 1965 Provider: LEONIDAS Wellington Age/Sex: 58/F Location: [facility] Status: Signed Intake Vital Signs 02/15/24 18:28 05/11/24 17:14 Height 5 ft 4 in BP 144/78 H Blood Pressure Location Lt brachial Position Sitting Respiration 17 Pulse 102 H Pulse Source NIBP Temp 99.2 F H Temp Source Oral Pulse Oximetry (%) 97 Oxygen Delivery Method room air Intake Visit Reasons: Rash Chief Complaint: rash 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 Is patient in pain?: No Allergies ketorolac tromethamine (From Toradol) Allergy (Severe, Verified 05/11/24 17:15) Hives solifenacin succinate (From Vesicare) Allergy (Severe, Verified 05/11/24 17:15) Hives vibegron (From Gemtesa) Allergy (Severe, Verified 05/11/24 17:15) Anaphylaxis erythromycin base (Erythromycin Base) Adverse Reaction (Severe, Verified 05/11/24 17:15) Nausea/Vom/Diarrhea celecoxib (From Celebrex) Adverse Reaction (Intermediate, Verified 05/11/24 17:15) Nausea/Vom/Diarrhea lisinopril Adverse Reaction (Mild, Verified 05/11/24 17:15) Vomiting Is last menstrual period known: No Post menopausal: Yes Patient : No Have you fallen in the past year?: No Nurse's Note: rash to BLE with itching intermittently x 5 months. PCP and derm investigating. rash returned x 3 days ago with intense itching. derm did biopsy of area today but recommended pt try an UC for Kenalog injection for itching. pt presents for this reason. denies SOB, difficulty swallowing/speaking. [facility] Medical History (Updated 05/11/24 @ 17:45 by Chavo LAUREN, PA) Allergic dermatitis Iron deficiency Thrombocytosis Leukocytosis Post-menopausal Depression Anxiety Thyroid disease Low iron Injury of back Gastric reflux Non-smoker History of stress test Hypertension Vaginal candidiasis Acute maxillary sinusitis, unspecified Shoulder pain Back pain Malignant tumor of kidney Thyroid disease Knee pain Severe headache Stomach ulcer Cancer Bladder distention Interstitial cystitis Pre-diabetes Essential thrombocythemia Surgical History History of root canal procedure History of cholecystectomy partial kidney removed Family History Father Diabetes Heart disease Hypertension Grandmother Cancer Social History number of children: 0 current occupational status: employed current occupation: [employer] Smoking Status: Never smoker alcohol intake: never substance use type: does not use seatbelt use: sometimes do you feel safe at home: Yes additional social history: single HPI HPI Chief Complaint: rash Details: PAYTON MCQUEEN, is a 58 F who presents to the office today for pruritic rash, requesting Kenalog IM injection. Patient does have a longstanding history of episodic pruritic rash, stating an grinder chipper test this past summer revealed that she was allergic to salmon. Several weeks ago she accidentally ate some tuna fish which she feels may be the contributing factor to recurrence of a rash that started up this past weekend but she is unsure. 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 She notes no complaints of constricted/pruritic airway or chest pain/shortness of breath/wheeze though she did appreciate this morning having some numbness and tingling on her face and tongue which had self resolved. She notes no complaints of fever, chills, sweats; she notes no complaints of chest pain/shortness of breath/dyspnea on exertion. She notes no other associated symptoms and no other alleviating/aggravating factors. ROS Const Constitutional: No other (As above) Exam Const General: cooperative, healthy appearing and no acute distress Orientation: alert and awake HENPR Head: normal to inspection Ears: hearing grossly normal bilaterally, external ears normal, TM's normal bilaterally and EAC's normal Nose: external nose normal, nares normal, septum normal and no nasal discharge Face and sinus: normal facial exam and face symmetric Mouth: oral mucosae normal, lip normal, tongue normal, oropharynx normal and moist mucous membranes Throat: posterior oropharynx normal, uvula midline and no postnasal drainage Eyes General: appearance normal, both eyes and al (more content not included)... Normal [facility] CNOVon 04-28-2024 CNOV Office Visit (FAMPWS ) PAYTON MCQUEEN ([id number]) 1965 F Date Time Provider Department 04/28/24 9:40 AM [facility]BER [facility] During your visit today, we recorded the following information about you: Temperature Pulse Respiration Blood pressure 97.9 degrees 88/minute 18/minute 140/90 Weight 105.9 kg Sue Weber MD 04/28/2024 11:23 AM Signed Chief Complaint Patient presents with: Fever: Chills, upset stomach, nausea HPI Payton Flores Richar is a 58 year old female who presents here today for illness. Pt was seen in office on 04/22/24 for bacterial conjunctivitis and yeast infection which she was treated for. Since being seen she has had some flu like sx: stomach issues, chills, nausea, fever running around 100.9. No vomiting or diarrhea. No SOB or cough. 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 Has used some left over anti nausea medication. Pt stated that it could have flared up due to being off Prilosec for 2 days which she typically takes regularly, was out of refills. Is back on the medication. Stomach is making noises and she has a heavy feeling in her stomach. Tried using GasX that helped a little. Unsure if she has a UTI, has pressure, some pain with urinating but admits she had a vaginal yeast infection so already had some irritation. Had a UTI in Feb that was so bad she stated she had to be treated with Levaquin. She knows having Covid 2 x last year is causing her issues. She worries about missing work but is told if she is ill not to come in. She states no one has said anything to her about her attendance. Was scheduled off Thursday but missed work , Thu, . Past medical history, appointments, medications, allergies reviewed. Previous Medical History PAST MEDICAL HISTORY Diagnosis Date Acute gastritis without mention of hemorrhage Anxiety Benign neoplasm of stomach Cervical disc disorder with radiculopathy 02/18/2010 Cyst of ovary 01/01/2015 [facility] - see scanned documents Depressive disorder, not elsewhere classified Essential thrombocythemia (HCC) 06/02/2016 GERD (gastroesophageal reflux disease) Hypertension 08/28/11 IC (interstitial cystitis) Impaired fasting glucose 04/02/2010 Lumbar disc disease with radiculopathy 11/15/2010 Metabolic syndrome X Morbid obesity with BMI of 40.0-44.9, adult ([facility]) 08/29/2013 Renal cyst, left 07/03/2016 18 mm, 06/18/16 Sciatica SI (sacroiliac) joint dysfunction 06/04/2011 Thoracolumbar back pain 07/20/2013 Unspecified hypothyroidism Urinary calculus, unspecified Renal stones Previous Surgical History PAST SURGICAL HISTORY Procedure Laterality Date CHOLECYSTECTOMY 1991 Cholecystectomy CYSTOSCOPY,DIL BLADDER,LOCAL ANESTH 01/18/14 EGD TRANSORAL BIOPSY SINGLE/MULTIPLE 04/09/2007 gastritis, gastric polyps KIDNEY SURGERY HX 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 6 weeks Erythromycin GI Upset Lisinopril Unknown Cough, hypotension Metformin GI Upset Mobic [Meloxicam] Vomiting Prochlorperazine Mental Status Change Agitation, felt ill Toradol [Ketorolac] Vomiting Vesicare [Solifenac* Rash Current Medications Current Outpatient Medications on File Prior to Visit Medication Sig omeprazole (PRILOSEC) 40 mg capsule Take 1 capsule by mouth once daily. levothyroxine (SYNTHROID) 175 mcg tablet Take 1 tablet by mouth once daily. Take on empty stomach. For Thyroid. busPIRone (BUSPAR) 15 mg tablet Take 1 tablet by mouth three times a day. sucralfate (CARAFATE) 1 gram tablet Take 1 tablet by mouth four times daily. Before meals and at bedtime ondansetron (ZOFRAN) 8 mg tablet Take 1 tablet by mouth every 8 hours as needed. buPROPion XL (WELLBUTRIN XL) 300 mg 24 hr tablet Take 1 tablet by mouth once daily. cetirizine (ZYRTEC) 10 mg tablet Take 1 tablet by mouth once daily. methenam/sod phos/mblue/hyoscy (UROGESIC-BLUE ORAL) Take 1 capsule by mouth once daily. mirabegron (MYRBETRIQ) 50 mg Tb24 Take 1 tablet by mouth once daily. SACCHAROMYCES BOULARDII (PROBIOTIC, S.BOULARDII, ORAL) Take by mouth once daily. No current facility-administered medications on file prior to visit. Social History Social History Tobacco Use Smoking status: Never Smokeless tobacco: Never Vaping Use Vaping status: Never Used Substance (more content not included)... Normal [facility] UA DIP, URINE (POC)on 2023 BILIRUBIN UA (POCT) Negative Negative [facility] CLARITY UA (POCT) Clear [facility] COLOR UA (POCT) Yellow [facility] GLUCOSE UA (POCT) Negative Negative mg/dL [facility] Hemoglobin Ql (U) Negative Negative [facility] Interpretation and review of laboratory results Abnormal [facility] KETONE UA (POCT) Negative Negative mg/dL [facility] LEUKOCYTES UA (POCT) Trace Abnormal Negative [facility] NITRITE UA (POCT) Negative Negative [facility] PH UA (POCT) 5.5 4.5 - 8.0 [facility] Protein Ql (U) Negative Negative mg/dL [facility] SPECIFIC GRAVITY UA (POCT) 1.010 1.005 - 1.030 [facility] UROBILINOGEN UA (POCT) 0.2 Normal E.U./dL [facility] Location:[facility], [address] [place] [address], [place], [address] [facility] CNOVon 04-22-2024 CNOV Office Visit (FAMPWS ) PAYTON MCQUEEN ([id number]) 1965 F Date Time Provider Department 04/22/24 3:40 PM SUE WEBER During your visit today, we recorded the following information about you: Pulse Respiration Blood pressure Weight 84/minute 16/minute 158/82 105.8 kg Sue Weber MD 04/22/2024 3:53 PM Signed Chief Complaint Patient presents with: Rash: Eye swelling HPI Payton Mcqueen is a 58 year old female who presents here today for an acute visit. Pt today c/o of eye swelling and facial rash. States her left eye started yesterday afternoon with what felt like a bruise around her eye. Thought initially possibly a sty or pink eye again. Hx of pink eye bilaterally, seen in [facility] on 03/25/24 treated with eye drops. Wondering if this is something that can be dormant and can re-occur. Was using left over drops she had from when she had pink eye, with instructions as noted on bottle. Spoke with Pharmacist who suggested she talk to PCP. Notes she woke up last night with blotches on her face, but has since gone away, notes she took her Zyrtec. This morning when she woke up she did wake up with matted eye lashes that she used warm compresses to remove. Does have a slight runny nose, no other cold symptoms. Asking if [facility] has an Eye Doctor would like to see someone through [facility]. Pharmacist told her that pink eye can be viral or bacterial. BP - Noted hx of elevated BP. Tends to be elevated when coming into Doctor's office. Has had BP checks at home and readings are normal. Has had BP checks at work and are normal. Asking if she can have an Rx of Diflucan. Having issues with yeast infection since using Levaquin. Past medical history, appointments, medications, allergies reviewed. Previous Medical History PAST MEDICAL HISTORY Diagnosis Date Acute gastritis without mention of hemorrhage Anxiety Benign neoplasm of stomach Cervical disc disorder with radiculopathy 02/18/2010 Cyst of ovary 01/01/2015 [facility] - see scanned documents Depressive disorder, not elsewhere classified Essential thrombocythemia (HCC) 06/02/2016 GERD (gastroesophageal reflux disease) Hypertension 08/28/11 IC (interstitial cystitis) Impaired fasting glucose 04/02/2010 Lumbar disc disease with radiculopathy 11/15/2010 Metabolic syndrome X Morbid obesity with BMI of 40.0-44.9, adult (HCC) 08/29/2013 Renal cyst, left 07/03/2016 18 mm, 06/18/16 Sciatica SI (sacroiliac) joint dysfunction 06/04/2011 Thoracolumbar back pain 07/20/2013 Unspecified hypothyroidism Urinary calculus, unspecified Renal stones Previous Surgical History PAST SURGICAL HISTORY Procedure Laterality Date CHOLECYSTECTOMY 1991 Cholecystectomy CYSTOSCOPY,DIL BLADDER,LOCAL ANESTH 01/18/14 EGD TRANSORAL BIOPSY SINGLE/MULTIPLE 04/09/2007 gastritis, gastric polyps KIDNEY SURGERY HX 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 6 weeks Erythromycin GI Upset Lisinopril Unknown Cough, hypotension Metformin GI Upset Mobic [Meloxicam] Vomiting Prochlorperazine Mental Status Change Agitation, felt ill Toradol [Ketorolac] Vomiting Vesicare [Solifenac* Rash Current Medications Current Outpatient Medications on File Prior to Visit Medication Sig levothyroxine (SYNTHROID) 175 mcg tablet Take 1 tablet by mouth once daily. Take on empty stomach. For Thyroid. albuterol HFA (PROVENTIL HFA) 90 mcg/actuation inhaler Inhale 2 Puffs as instructed every 4 hours as needed for wheezing/shortness of breath. busPIRone (BUSPAR) 15 mg tablet Take 1 tablet by mouth three times a day. sucralfate (CARAFATE) 1 gram tablet Take 1 tablet by mouth four times daily. Before meals and at bedtime ondansetron (ZOFRAN) 8 mg tablet Take 1 tablet by mouth every 8 hours as needed. buPROPion XL (WELLBUTRIN XL) 300 mg 24 hr tablet Take 1 tablet by mouth once daily. cetirizine (ZYRTEC) 10 mg tablet Take 1 tablet by mouth once daily. omeprazole (PRILOSEC) 40 mg capsule Take 1 capsule by mouth once daily. methenam/sod phos/mblue/hyoscy (UROGESIC-BLUE ORAL) Take 1 capsule by mouth once daily. mirabegron (MYRBETRIQ) 50 mg Tb24 Take 1 tablet by mouth once daily. SACCHAROMYCES BOULARDII (PROBIOTIC, S.BOULARDII, ORAL) Take by mouth once daily. No current facility-administered medic (more content not included)... Normal [facility] CNOVon 03-25-2024 CNOV Office Visit (UCWSTR ) PAYTON MCQUEEN ([id number]) 1965 F Date Time Provider Department 03/25/24 12:30 PM HANG PARKER [facility] During your visit today, we recorded the following information about you: Temperature Pulse Respiration Blood pressure 97.8 degrees 97/minute 20/minute 169/74 Weight 107 kg Hang Parker APRN.CLERICAL SUPERVISOR 03/25/2024 12:37 PM Signed Subjective HPI Nontoxic-appearing female presents urgent care chief complaint left eye irritation. Duration of symptoms 1 day. Associated symptoms eye redness itching and drainage slight irritation. No eye trauma. No foreign body sensation. No flashes light floaters or visual changes. No contact lens use. Denies any fevers. Past medical history prescription medications allergies reviewed. .Patient presents with: Eye Problem: Left eye, swelling, redness, irritated, itching x 1 PAST MEDICAL HISTORY Diagnosis Date Acute gastritis without mention of hemorrhage Anxiety Benign neoplasm of stomach Cervical disc disorder with radiculopathy 02/18/2010 Cyst of ovary 01/01/2015 [facility] - see scanned documents Depressive disorder, not elsewhere classified Essential thrombocythemia (HCC) 06/02/2016 GERD (gastroesophageal reflux disease) Hypertension 08/28/11 IC (interstitial cystitis) Impaired fasting glucose 04/02/2010 Lumbar disc disease with radiculopathy 11/15/2010 Metabolic syndrome X Morbid obesity with BMI of 40.0-44.9, adult (HCC) 08/29/2013 Renal cyst, left 07/03/2016 18 mm, 06/18/16 Sciatica SI (sacroiliac) joint dysfunction 06/04/2011 Thoracolumbar back pain 07/20/2013 Unspecified hypothyroidism Urinary calculus, unspecified Renal stones PAST SURGICAL HISTORY Procedure Laterality Date CHOLECYSTECTOMY 1991 Cholecystectomy CYSTOSCOPY,DIL BLADDER,LOCAL ANESTH 01/18/14 EGD TRANSORAL BIOPSY SINGLE/MULTIPLE 04/09/2007 gastritis, gastric polyps KIDNEY SURGERY HX 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 Valadez PAST SURGICAL HISTORY OF WISDOM TEETH EXTRACTIONS PAST SURGICAL HISTORY OF 05/2012 bladder hydrodistension X 2 PAST SURGICAL HISTORY OF 2014 pain injection lumbar- multiple PAST SURGICAL HISTORY OF Cyst removed from head ALLERGIES Celebrex [Celecoxib], Erythromycin, Lisinopril, Metformin, Mobic [Meloxicam], Prochlorperazine, Toradol [Ketorolac], and Vesicare [Solifenacin] MEDICATIONS nitrofurantoin monohydrate and macrocrystal (MACROBID) 100 mg capsule Take 1 capsule by mouth two times a day with meals for 5 days. levothyroxine (SYNTHROID) 175 mcg tablet Take 1 tablet by mouth once daily. Take on empty stomach. For Thyroid. albuterol HFA (PROVENTIL HFA) 90 mcg/actuation inhaler Inhale 2 Puffs as instructed every 4 hours as needed for wheezing/shortness of breath. busPIRone (BUSPAR) 15 mg tablet Take 1 tablet by mouth three times a day. sucralfate (CARAFATE) 1 gram tablet Take 1 tablet by mouth four times daily. Before meals and at bedtime ondansetron (ZOFRAN) 8 mg tablet Take 1 tablet by mouth every 8 hours as needed. buPROPion XL (WELLBUTRIN XL) 300 mg 24 hr tablet Take 1 tablet by mouth once daily. cetirizine (ZYRTEC) 10 mg tablet Take 1 tablet by mouth once daily. omeprazole (PRILOSEC) 40 mg capsule Take 1 capsule by mouth once daily. methenam/sod phos/mblue/hyoscy (UROGESIC-BLUE ORAL) Take 1 capsule by mouth once daily. mirabegron (MYRBETRIQ) 50 mg Tb24 Take 1 tablet by mouth once daily. SACCHAROMYCES BOULARDII (PROBIOTIC, S.BOULARDII, ORAL) Take by mouth once daily. FAMILY HISTORY Problem Relation Age of Onset Diabetes Father Hypertension Father Cancer Maternal Grandmother Lymphoma Heart Maternal Grandfather hypertension Hypertension Brother Social History Tobacco Use Smoking status: Never Smokeless tobacco: Never Vaping Use Vaping status: Never Used Substance Use Topics Alcohol use: Yes Comment: rarely Drug use: No BP 169/74 Pulse 97 Temp 36.6 ?C (97.8 ?F) Resp 20 Wt 107 kg (235 lb 14.3 oz) LMP 05/09/2018 (Approximate) SpO2 97% BMI 41.79 kg/m? Review of Systems Constitutional: Negative for chills, fever and malaise/fatigue. HENT: Negative for congestion, ear discharge, ear pain, sinus pain and sore throat. Eyes: Positive for discharge and redness. Negative for blurred vision, double vision, photophobia and pain. Respiratory: Negative for cough, hemoptysis, sputum production, shortness of breath, wheezing and stridor. Cardiovascular: Negative for chest pain. Gastrointestinal: Negative for abdominal pain, diarrhea, nausea and vomiting. Musculoskeletal: Negative for myalgias. Skin: Negative for itching and rash. Neurological: Negative for dizziness and headaches. Objective Physical Exam Constitutional: General: She is not in acute distress. Appearance: She is not diaphoretic. HENT: Head: Normocephalic. (more content not included)... Normal [facility] Bacteria Ur Culton Bacteria identified Cx Nom (U) ORGANISM ID: 1 <10,000 CFU/ml Normal urogenital bernabe Normal [facility] Comment on above: Performed By: #### 6 30-4 ####[facility] LABCLIA [id number] [address] [place] CNOVon 03-21-2024 CNOV Office Visit (FAMPWS ) RICHARPAYTON ([id number]) 1965 F Date Time Provider Department 03/21/24 6:20 PM BHUPINDER CASTAÑEDA [facility] During your visit today, we recorded the following information about you: Temperature Pulse Blood pressure Weight 97.3 degrees 93/minute 162/92 106.5 kg Bhupinder Castañeda MD 03/21/2024 6:38 PM Signed No chief complaint on file. HPI: Patient presents today for office visit for UTI Urology: patient is concerned about urinary symptoms. Duration of symptoms: 3 days Dysuria: Yes. Urinary urgency: Yes. Urinary frequency: Yes. Suprapubic pain: pressure in bladder area. Back pain: No. Fever: low grade last night. Nausea: just a little. Vomiting: No. Sees urology. No hematuria. Checks BP at home and is good there. Seeing Dr Andrade Bp is up. No chest pain or shortness of breath. No edema. Home bp has been ok. Using buspar. Her bp has been up recently but does have white coat syndrome. MEDICATIONS: Current Outpatient Medications Medication Sig levothyroxine (SYNTHROID) 175 mcg tablet Take 1 tablet by mouth once daily. Take on empty stomach. For Thyroid. albuterol HFA (PROVENTIL HFA) 90 mcg/actuation inhaler Inhale 2 Puffs as instructed every 4 hours as needed for wheezing/shortness of breath. busPIRone (BUSPAR) 15 mg tablet Take 1 tablet by mouth three times a day. sucralfate (CARAFATE) 1 gram tablet Take 1 tablet by mouth four times daily. Before meals and at bedtime ondansetron (ZOFRAN) 8 mg tablet Take 1 tablet by mouth every 8 hours as needed. buPROPion XL (WELLBUTRIN XL) 300 mg 24 hr tablet Take 1 tablet by mouth once daily. cetirizine (ZYRTEC) 10 mg tablet Take 1 tablet by mouth once daily. omeprazole (PRILOSEC) 40 mg capsule Take 1 capsule by mouth once daily. methenam/sod phos/mblue/hyoscy (UROGESIC-BLUE ORAL) Take 1 capsule by mouth once daily. mirabegron (MYRBETRIQ) 50 mg Tb24 Take 1 tablet by mouth once daily. SACCHAROMYCES BOULARDII (PROBIOTIC, S.BOULARDII, ORAL) Take by mouth once daily. No current facility-administered medications for this visit. ALLERGIES: ALLERGIES Allergen Reactions Celebrex [Celecoxib] upsets stomach after prolonged use ie. 6 weeks Erythromycin GI Upset Lisinopril Unknown Cough, hypotension Metformin GI Upset Mobic [Meloxicam] Vomiting Prochlorperazine Mental Status Change Agitation, felt ill Toradol [Ketorolac] Vomiting Vesicare [Solifenac* Rash PAST MEDICAL HISTORY Diagnosis Date Acute gastritis without mention of hemorrhage Anxiety Benign neoplasm of stomach Cervical disc disorder with radiculopathy 02/18/2010 Cyst of ovary 01/01/2015 [facility] - see scanned documents Depressive disorder, not elsewhere classified Essential thrombocythemia (HCC) 06/02/2016 GERD (gastroesophageal reflux disease) Hypertension 08/28/11 IC (interstitial cystitis) Impaired fasting glucose 04/02/2010 Lumbar disc disease with radiculopathy 11/15/2010 Metabolic syndrome X Morbid obesity with BMI of 40.0-44.9, adult (HCC) 08/29/2013 Renal cyst, left 07/03/2016 18 mm, 06/18/16 Sciatica SI (sacroiliac) joint dysfunction 06/04/2011 Thoracolumbar back pain 07/20/2013 Unspecified hypothyroidism Urinary calculus, unspecified Renal stones PAST SURGICAL HISTORY Procedure Laterality Date CHOLECYSTECTOMY 1991 Cholecystectomy CYSTOSCOPY,DIL BLADDER,LOCAL ANESTH 01/18/14 EGD TRANSORAL BIOPSY SINGLE/MULTIPLE 04/09/2007 gastritis, gastric polyps KIDNEY SURGERY HX 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 Valadez PAST SURGICAL HISTORY OF WISDOM TEETH EXTRACTIONS PAST SURGICAL HISTORY OF 05/2012 bladder hydrodistension X 2 PAST SURGICAL HISTORY OF 2014 pain injection lumbar- multiple PAST SURGICAL HISTORY OF Cyst removed from head FAMILY HISTORY Problem Relation Age of Onset Diabetes Father Hypertension Father Cancer Maternal Grandmother Lymphoma Heart Maternal Grandfather hypertension Hypertension Brother Social History Tobacco Use Smoking status: Never Smokeless tobacco: Never Vaping Use Vaping status: Never Used Substance Use Topics Alcohol use: Yes Comment: rarely Drug use: No Reviewed current medications, allergies, past medical history, surgical history, family history and social history today. REVIEW OF SYSTEMS All other reviewed and negative other than HPI. VITALS: BP 162/92 Pulse 93 Temp 36.3 ?C (97.3 ?F) (Tympanic) Wt 106.5 kg (234 lb 12.6 oz) LMP 05/09/2018 (Approximate) SpO2 96% BMI 41.59 kg/m? Last 4 Encounter Wt Readings: Date: Wt: 02/25/2024 107.6 kg (237 lb 3.4 oz) 02/23/2024 109.2 kg (240 lb 11.9 oz) 02/04/2024 105.7 kg (233 lb) 01/31/2024 106 kg (233 lb 11 oz) PHYSICAL EXAMINATION: General appearance: Well appearing, alert, in no acute distress, well-hydrated, well nourished. Skin: Skin color, textur (more content not included)... Normal [facility] UA DIP, URINE (POC)on 2023 BILIRUBIN UA (POCT) Negative Negative [facility] CLARITY UA (POCT) Clear [facility] COLOR UA (POCT) Yellow [facility] GLUCOSE UA (POCT) Negative Negative mg/dL [facility] Hemoglobin Ql (U) Negative Negative [facility] Interpretation and review of laboratory results Abnormal [facility] KETONE UA (POCT) Negative Negative mg/dL [facility] LEUKOCYTES UA (POCT) Small Abnormal Negative [facility] NITRITE UA (POCT) Negative Negative [facility] PH UA (POCT) 6.5 4.5 - 8.0 [facility] Protein Ql (U) Negative Negative mg/dL [facility] SPECIFIC GRAVITY UA (POCT) 1.015 1.005 - 1.030 [facility] UROBILINOGEN UA (POCT) 0.2 Normal E.U./dL [facility] Location:[address], [place], [address] [facility] CNOVon 02-25-2024 CNOV Office Visit (FAMPWS ) PAYTON MCQUEEN ([id number]) 1965 F Date Time Provider Department 02/25/24 10:40 AM SUE WEBER During your visit today, we recorded the following information about you: Pulse Respiration Blood pressure Weight 74/minute 18/minute 140/78 107.6 kg Sue Weber MD 02/25/2024 11:07 AM Signed Chief Complaint Patient presents with: [place] [facility] HPI Payton Mcqueen is a 58 year old female who presents here today for pink eye. 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 She stated kids have been sick at school with strep and covid. She stated she woke up around 2 AM and her eye was crusty, sore, puffiness of eye, red, itchy, drainage. She used warm compress on the eye and takes allergy medication. She states right eye is worse. She does have some sinus congestion and some fatigue. She took temp because she felt warm, temp 99.6. Past medical history, appointments, medications, allergies reviewed. Previous Medical History PAST MEDICAL HISTORY Diagnosis Date Acute gastritis without mention of hemorrhage Anxiety Benign neoplasm of stomach Cervical disc disorder with radiculopathy 02/18/2010 Cyst of ovary 01/01/2015 [facility] - see scanned documents Depressive disorder, not elsewhere classified Essential thrombocythemia (HCC) 06/02/2016 GERD (gastroesophageal reflux disease) Hypertension 08/28/11 IC (interstitial cystitis) Impaired fasting glucose 04/02/2010 Lumbar disc disease with radiculopathy 11/15/2010 Metabolic syndrome X Morbid obesity with BMI of 40.0-44.9, adult (HCC) 08/29/2013 Renal cyst, left 07/03/2016 18 mm, 06/18/16 Sciatica SI (sacroiliac) joint dysfunction 06/04/2011 Thoracolumbar back pain 07/20/2013 Unspecified hypothyroidism Urinary calculus, unspecified Renal stones Previous Surgical History PAST SURGICAL HISTORY Procedure Laterality Date CHOLECYSTECTOMY 1991 Cholecystectomy CYSTOSCOPY,DIL BLADDER,LOCAL ANESTH 01/18/14 EGD TRANSORAL BIOPSY SINGLE/MULTIPLE 04/09/2007 gastritis, gastric polyps KIDNEY SURGERY HX 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 6 weeks Erythromycin GI Upset Lisinopril Unknown Cough, hypotension Metformin GI Upset Mobic [Meloxicam] Vomiting Prochlorperazine Mental Status Change Agitation, felt ill Toradol [Ketorolac] Vomiting Vesicare [Solifenac* Rash Current Medications Current Outpatient Medications on File Prior to Visit Medication Sig levothyroxine (SYNTHROID) 175 mcg tablet Take 1 tablet by mouth once daily. Take on empty stomach. For Thyroid. albuterol HFA (PROVENTIL HFA) 90 mcg/actuation inhaler Inhale 2 Puffs as instructed every 4 hours as needed for wheezing/shortness of breath. busPIRone (BUSPAR) 15 mg tablet Take 1 tablet by mouth three times a day. sucralfate (CARAFATE) 1 gram tablet Take 1 tablet by mouth four times daily. Before meals and at bedtime ondansetron (ZOFRAN) 8 mg tablet Take 1 tablet by mouth every 8 hours as needed. buPROPion XL (WELLBUTRIN XL) 300 mg 24 hr tablet Take 1 tablet by mouth once daily. cetirizine (ZYRTEC) 10 mg tablet Take 1 tablet by mouth once daily. omeprazole (PRILOSEC) 40 mg capsule Take 1 capsule by mouth once daily. methenam/sod phos/mblue/hyoscy (UROGESIC-BLUE ORAL) Take 1 capsule by mouth once daily. mirabegron (MYRBETRIQ) 50 mg Tb24 Take 1 tablet by mouth once daily. SACCHAROMYCES BOULARDII (PROBIOTIC, S.BOULARDII, ORAL) Take by mouth once daily. No current facility-administered medications on file prior to visit. Social History Social History Tobacco Use Smoking status: Never Smokeless tobacco: Never Vaping Use Vaping status: Never Used Substance Use Topics Alcohol use: Yes Comment: rarely Drug use: No EXAM: BP 140/78 Pulse 74 Resp 18 Wt 107.6 kg (237 lb 3.4 oz) LMP 05/09/2018 (Approximate) BMI 42.02 kg/m? General Appearance: Well appearing, alert, in no acute distress, well-hydrated, well nourished. and Overweight. Eyes: bilateral tearing, right upper lid inflamed and swollen Neck: Supple, no adenopathy; thyroid symmetric, normal size. Lungs: Lungs clear to auscultation. No wheezing, rhonchi, rales.. Heart: RRR without murmur, gallop, or ru (more content not included)... Normal [facility] CNOVon 02-23-2024 CNOV Office Visit (FAMPWS ) PAYTON MCQUEEN ([id number]) 1965 F Date Time Provider Department 02/23/24 3:00 PM [facility] During your visit today, we recorded the following information about you: Pulse Respiration Blood pressure Weight 90/minute 18/minute 138/88 109.2 kg Sue Weber MD 02/23/2024 3:21 PM Signed Chief Complaint Patient presents with: F/U 3 Month HPI Payton Mcqueen is a 58 year old female who presents here today for 3 month follow up. 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 Pt stats that is feeling good, best she has felt for some time. No bowel, Gi, or urinary issues. Taking Carafate 1 gram QID, Prilosec 40 mg daily, and Zofran prn. HTN: The Toprol xl 25 mg daily was d/c, not taking anything for BP. She has been taking the Buspar to 3x a day. She feels this is helping, she feels calmer. Has been checking BP at home with readings ranging from 120/78 to 150/82. No chest pains, dizziness, or SOB. She was in [facility] ER in past for rapid heart rate and was ill with URI. Had EKG here and at ER which were normal. Thyroid: Taking Synthroid 150 mcg daily. No missed dosages. Is back into her normal routine and back to working. She is fatigued but it is a different type of fatigue then she normally has. SHEYLA/Depression: Taking Wellbutrin 300 mg daily and Buspar 15 mg 1 pill TID. Not doing any counseling at this time. Since taking the 3 buspar a day she feels calmer. Has issues chronic URI and complaints of fevers. Past medical history, appointments, medications, allergies reviewed. Previous Medical History PAST MEDICAL HISTORY Diagnosis Date Acute gastritis without mention of hemorrhage Anxiety Benign neoplasm of stomach Cervical disc disorder with radiculopathy 02/18/2010 Cyst of ovary 01/01/2015 [facility] - see scanned documents Depressive disorder, not elsewhere classified Essential thrombocythemia (HCC) 06/02/2016 GERD (gastroesophageal reflux disease) Hypertension 08/28/11 IC (interstitial cystitis) Impaired fasting glucose 04/02/2010 Lumbar disc disease with radiculopathy 11/15/2010 Metabolic syndrome X Morbid obesity with BMI of 40.0-44.9, adult (HCC) 08/29/2013 Renal cyst, left 07/03/2016 18 mm, 06/18/16 Sciatica SI (sacroiliac) joint dysfunction 06/04/2011 Thoracolumbar back pain 07/20/2013 Unspecified hypothyroidism Urinary calculus, unspecified Renal stones Previous Surgical History PAST SURGICAL HISTORY Procedure Laterality Date CHOLECYSTECTOMY 1991 Cholecystectomy CYSTOSCOPY,DIL BLADDER,LOCAL ANESTH 01/18/14 EGD TRANSORAL BIOPSY SINGLE/MULTIPLE 04/09/2007 gastritis, gastric polyps KIDNEY SURGERY HX 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 6 weeks Erythromycin GI Upset Lisinopril Unknown Cough, hypotension Metformin GI Upset Mobic [Meloxicam] Vomiting Prochlorperazine Mental Status Change Agitation, felt ill Toradol [Ketorolac] Vomiting Vesicare [Solifenac* Rash Current Medications Current Outpatient Medications on File Prior to Visit Medication Sig metoprolol succinate ER (TOPROL XL) 25 mg 24 hr tablet Take 1 tablet by mouth once daily. levoFLOXacin (LEVAQUIN) 500 mg tablet Take 1 tablet by mouth once daily for 10 days. albuterol HFA (PROVENTIL HFA) 90 mcg/actuation inhaler Inhale 2 Puffs as instructed every 4 hours as needed for wheezing/shortness of breath. benzonatate (TESSALON PERLE) 100 mg capsule Take 1-2 capsules every 8 hours as needed. busPIRone (BUSPAR) 15 mg tablet Take 1 tablet by mouth three times a day. levothyroxine (SYNTHROID) 150 mcg tablet Take 1 tablet by mouth daily before breakfast. sucralfate (CARAFATE) 1 gram tablet Take 1 tablet by mouth four times daily. Before meals and at bedtime ondansetron (ZOFRAN) 8 mg tablet Take 1 tablet by mouth every 8 hours as needed. buPROPion XL (WELLBUTRIN XL) 300 mg 24 hr tablet Take 1 tablet by mouth once daily. cetirizine (ZYRTEC) 10 mg tablet Take 1 tablet by mouth once daily. omeprazole (PRILOSEC) 40 mg capsule Take 1 capsule by mouth once daily. methenam/sod phos/mblue/hyoscy (UROGESIC-BLUE ORAL) Take 1 capsule by mouth once daily. mirabegron (MYRBETRIQ) 50 mg Tb24 Take 1 tablet by mouth once daily. SACCHAROMYCES BOULARDII (PROBIOTIC, S.BOULARDII (more content not included)... Normal [facility] CBC W Auto Differential pane l (Bld)on 02-20-2024 Anisocytosis Ql (Bld) Present Normal [facility] Comment on above: Order Comment: Speci men Type: BLOOD SPECIMENOrdering Facility: [facility] Address: [address] [place], [place] [address]y [place] [id number] Performed By: #### 5 7021-8 ####[facility] LABCLIA [id number] [place] [address] [place] Basophils (Bld) [#/Vol] 0.44 10*3/uL High <0.11 [facility] Comment on above: Order Comment: Speci men Type: BLOOD SPECIMENOrdering Facility: [facility] Address: [address] [place] [address] Performed By: #### 5 7021-8 ####[facility] LABCLIA [id number] [place] [address] [place] Basophils/100 WBC (Bld) 1.7 % Normal [facility] Comment on above: Order Comment: Speci men Type: BLOOD SPECIMENOrdering Facility: [facility] Address: [address] [place] [address] Performed By: #### 5 7021-8 ####[facility] LABCLIA [id number] [place] [address] [place] Differential cell count method Nom (Bld) Manual Normal [facility] Comment on above: Order Comment: Speci men Type: BLOOD SPECIMENOrdering Facility: [facility] Address: [address] [place] [address] Performed By: #### 5 7021-8 ####[facility] LABCLIA [id number] [place] [address] [place] Eosinophils (Bld) [#/Vol] 0.23 10*3/uL Normal <0.46 [facility] Comment on above: Order Comment: Speci men Type: BLOOD SPECIMENOrdering Facility: [facility] Address: [address] [place] [address] Performed By: #### 5 7021-8 ####[facility] LABCLIA [id number] [place] [address] [place] Eosinophils/100 WBC (Bld) 0.9 % Normal [facility] Comment on above: Order Comment: Speci men Type: BLOOD SPECIMENOrdering Facility: [facility] Address: [address] [place] [address] Performed By: #### 5 7021-8 ####[facility] LABIA [id number] [place] [address] [place] Erythrocyte distribution width (RBC) [Ratio] 25.3 % High 11.5-15.0 [facility] Comment on above: Order Comment: Speci men Type: BLOOD SPECIMENOrdering Facility: [facility] Address: [address] [place] [address] Performed By: #### 5 7021-8 ####[facility] LABIA [id number] [place] [address] [place] Hematocrit (Bld) [Volume fraction] 51.5 % High 36.0-46.0 [facility] Comment on above: Order Comment: Speci men Type: BLOOD SPECIMENOrdering Facility: [facility] Address: [address] [place] [address] Performed By: #### 5 7021-8 ####[facility] LABIA [id number] [place] [address] [place] Hemoglobin (Bld) [Mass/Vol] 14.9 g/dL Normal 11.5-15.5 [facility] Comment on above: Order Comment: Speci men Type: BLOOD SPECIMENOrdering Facility: [facility] Address: [address] [place] [address] Performed By: #### 5 7021-8 ####[facility] LABIA [id number] [place] [address] [place] Lymphocytes (Bld) [#/Vol] 1.80 10*3/uL Normal 1.00-4.00 [facility] Comment on above: Order Comment: Speci men Type: BLOOD SPECIMENOrdering Facility: [facility] Address: [address] [place] [address] Performed By: #### 5 7021-8 ####[facility] LABCLIA [id number] [place] [address] [place] Lymphocytes/100 WBC (Bld) 7.0 % Normal [facility] Comment on above: Order Comment: Speci men Type: BLOOD SPECIMENOrdering Facility: [facility] Address: [address] [place] [address] Performed By: #### 5 7021-8 ####[facility] LABIA [id number] [place] [address] [place] MCH (RBC) [Entitic mass] 22.4 pg Low 26.0-34.0 [facility] Comment on above: Order Comment: Speci men Type: BLOOD SPECIMENOrdering Facility: [facility] Address: [address] [place] [address] Performed By: #### 5 7021-8 ####[facility] LABIA [id number] [place] [address] [place] MCHC (RBC) [Mass/Vol] 28.9 g/dL Low 30.5-36.0 [facility] Comment on above: Order Comment: Speci men Type: BLOOD SPECIMENOrdering Facility: [facility] Address: [address] [place] [address] Performed By: #### 5 7021-8 ####[facility] LABIA [id number] [place] [address] [place] MCV (RBC) [Entitic vol] 77.3 fL Low 80.0-100.0 [facility] Comment on above: Order Comment: Speci men Type: BLOOD SPECIMENOrdering Facility: [facility] Address: [address] [place] [address] Performed By: #### 5 7021-8 ####[facility] LABIA [id number] [place] [address] [place] Monocytes (Bld) [#/Vol] 0.00 10*3/uL Normal <0.87 [facility] Comment on above: Order Comment: Speci men Type: BLOOD SPECIMENOrdering Facility: [facility] Address: [address] [place] [address] Performed By: #### 5 7021-8 ####[facility] LABCLIA [id number] [place] [address] [place] Monocytes/100 WBC (Bld) 0.0 % Normal [facility] Comment on above: Order Comment: Speci men Type: BLOOD SPECIMENOrdering Facility: [facility] Address: [address] [place] [address] Performed By: #### 5 7021-8 ####[facility] LABCLIA [id number] [place] [address] [place] Neutrophils (Bld) [#/Vol] 23.26 10*3/uL High 1.45-7.50 [facility] Comment on above: Order Comment: Speci men Type: BLOOD SPECIMENOrdering Facility: [facility] Address: [address] [place] [address] Performed By: #### 5 7021-8 ####[facility] LABCLIA [id number] [place] [address] [place] Neutrophils/100 WBC (Bld) 90.4 % Normal [facility] Comment on above: Order Comment: Speci men Type: BLOOD SPECIMENOrdering Facility: [facility] Address: [address] [place] [address] Performed By: #### 5 7021-8 ####[facility] LABCLIA [id number] [place] [address] [place] Nucleated RBC (Bld) [#/Vol] 10*3/uL Normal <0.01 [facility] Comment on above: Order Comment: Speci men Type: BLOOD SPECIMENOrdering Facility: [facility] Address: [address] [place] [address] Performed By: #### 5 7021-8 ####[facility] LABCLIA [id number] [place] [address] [place] Nucleated RBC/100 WBC (Bld) [Ratio] 0.0 /100 WBC Normal [facility] Comment on above: Order Comment: Speci men Type: BLOOD SPECIMENOrdering Facility: [facility] Address: [address] [place] [address] Performed By: #### 5 7021-8 ####[facility] LABCLIA [id number] [place] [address] [place] Ovalocytes LM Ql (Bld) Few Normal [facility] Comment on above: Order Comment: Speci men Type: BLOOD SPECIMENOrdering Facility: [facility] Address: [address] [place] [address] Performed By: #### 5 7021-8 ####[facility] LABIA [id number] [place] [address] [place] Platelet mean volume (Bld) [Entitic vol] 10.6 fL Normal 9.0-12.7 [facility] Comment on above: Order Comment: Speci men Type: BLOOD SPECIMENOrdering Facility: [facility] Address: [address] [place] [address] Performed By: #### 5 7021-8 ####[facility] LABIA [id number] [place] [address] [place] Platelets (Bld) [#/Vol] 548 10*3/uL High 150-400 [facility] Comment on above: Order Comment: Speci men Type: BLOOD SPECIMENOrdering Facility: [facility] Address: [address] [place] [address] Performed By: #### 5 7021-8 ####[facility] LABCLIA [id number] [place] [address] [place] Platelets Estimate (Bld) [#/Vol] Increased Normal [facility] Comment on above: Order Comment: Speci men Type: BLOOD SPECIMENOrdering Facility: [facility] Address: [address] [place] [address] Performed By: #### 5 7021-8 ####[facility] LABCLIA [id number] [place] [address] [place] Polychromasia LM Ql (Bld) Moderate Normal [facility] Comment on above: Order Comment: Speci men Type: BLOOD SPECIMENOrdering Facility: [facility] Address: [address] [place] [address] Performed By: #### 5 7021-8 ####[facility] LABIA [id number] [place] [address] [place] RBC (Bld) [#/Vol] 6.66 10*6/uL High 3.90-5.20 [facility] Comment on above: Order Comment: Speci men Type: BLOOD SPECIMENOrdering Facility: [facility] Address: [address] [place] [address] Performed By: #### 5 7021-8 ####[facility] LABIA [id number] [place] [address] [place] RED CELL MORPH Reviewed: see result s of individual morphologies Normal [facility] Comment on above: Order Comment: Speci men Type: BLOOD SPECIMENOrdering Facility: [facility] Address: [address] [place] [address] Performed By: #### 5 7021-8 ####[facility] LABIA [id number] [place] [address] [place] WBC (Bld) [#/Vol] 25.73 10*3/uL High 3.70-11.00 [facility] Comment on above: Order Comment: Speci men Type: BLOOD SPECIMENOrdering Facility: [facility] Address: [address] [place] [address] Performed By: #### 5 7021-8 ####[facility] LABCLIA [id number] [address] [address] [place] Comprehensive metabolic 2000 panelon 02-20-2024 Albumin [Mass/Vol] 4.2 g/dL Normal 3.9-4.9 [facility] Comment on above: Order Comment: Speci men Type: BLOOD SPECIMENOrdering Facility: [facility] Address: [address] [place] [address] Performed By: #### 2 4322-12, 2132-01 ####[facility] LABCLIA [id number] [place] [id number] [place] ALP [Catalytic activity/Vol] 185 U/L High 34-123 [facility] Comment on above: Order Comment: Speci men Type: BLOOD SPECIMENOrdering Facility: [facility] Address: [address] [place] [address] Performed By: #### 2 4322-12, 2132-01 ####[facility] LABIA [id number] [place] [id number] [place] ALT [Catalytic activity/Vol] 19 U/L Normal 7-38 [facility] Comment on above: Order Comment: Speci men Type: BLOOD SPECIMENOrdering Facility: [facility] Address: [address] [place] [address] Performed By: #### 2 4322-12, 2132-01 ####[facility] LABIA [id number] [place] [id number] [place] Anion gap [Moles/Vol] 13 mmol/L Normal 8-15 [facility] Comment on above: Order Comment: Speci men Type: BLOOD SPECIMENOrdering Facility: [facility] Address: [address] [place] [address] Performed By: #### 2 432-8, 2132-01 ####[facility] LABIA [id number] [id number], [place] [address] [place] AST [Catalytic activity/Vol] 35 U/L Normal 13-35 [facility] Comment on above: Order Comment: Speci men Type: BLOOD SPECIMENOrdering Facility: [facility] Address: [address] [place], [place] [id number] Performed By: #### 2 4328, 2132-01 ####[facility] LABCLIA [id number] [place] [address] [place] Bilirubin [Mass/Vol] 0.7 mg/dL Normal 0.2-1.3 [facility] Comment on above: Order Comment: Speci men Type: BLOOD SPECIMENOrdering Facility: [facility] Address: [address] [place] [address] Performed By: #### 2 4328, 2132-01 ####[facility] LABCLIA [id number] [place] [address] [place] Calcium [Mass/Vol] 8.6 mg/dL Normal 8.5-10.2 [facility] Comment on above: Order Comment: Speci men Type: BLOOD SPECIMENOrdering Facility: [facility] Address: [address] [place] [address] Performed By: #### 2 4322-12, 2132-01 ####[facility] LABCLIA [id number] [place] [address] [place] Chloride [Moles/Vol] 102 mmol/L Normal 98-107 [facility] Comment on above: Order Comment: Speci men Type: BLOOD SPECIMENOrdering Facility: [facility] Address: [address] [place] [address] Performed By: #### 2 8, 2132-01 ####[facility] LABCLIA [id number] [place] [id number] [place] CO2 [Moles/Vol] 25 mmol/L Normal 22-30 [facility] Comment on above: Order Comment: Speci men Type: BLOOD SPECIMENOrdering Facility: [facility] Address: [address] [place] [address] Performed By: #### 2 43238, 2132-01 ####[facility] LABIA [id number] [address] [address] [place] Creatinine [Mass/Vol] 0.76 mg/dL Normal 0.58-0.96 [facility] Comment on above: Order Comment: Speci men Type: BLOOD SPECIMENOrdering Facility: [facility] Address: [address] [place], [place] [address] Performed By: #### 2 43238, 2132-01 ####[facility] LABIA [id number] [place] [address] [place] Creatinine and Glomerular filtration rate.predicted panel (S/P/Bld) 92 mL/min/1.73m??? Normal >=60 [facility] Comment on above: Order Comment: Eliudi men Type: BLOOD SPECIMENOrdering Facility: [facility] Address: [address] [place] [address] Result Comment: Leonarda mated Glomerular Filtration Rate (eGFR) is calculated using the 2020 CKD-EPI creatinine equation. This equation utilizes serum creatinine, sex, and age as parameters. The creatinine assay has traceable calibration to isotope dilution-mass spectrometry. Refer to KDIGO guidelines for clinical interpretation. In patients with unstable renal function, e.g. those with acute kidney injury, the eGFR may not accurately reflect actual GFR. Performed By: #### 2 4323-8, 2132-01 ####[facility] LABIA [id number] [address] [address] [place] Glucose [Mass/Vol] 93 mg/dL Normal 74-99 [facility] Comment on above: Order Comment: Terry bonds Type: BLOOD SPECIMENOrdering Facility: [facility] Address: [address] [place], [place] [address] Result Comment: The [place] [employer] (ADA) provides guidance for cutoff values for fasting glucose and random glucose. The ADA defines fasting as no caloric intake for at least 8 hours. Fasting plasma glucose results between 100 to 125 [...] Standards of Medical Care in Diabetes 2016, [place] [employer]. Diabetes Care. 2016.39(Suppl 1). Performed By: #### 2 4322-12, 2132-01 ####[facility] LABCLIA [id number] [place] [address] [place] Potassium [Moles/Vol] 4.5 mmol/L Normal 3.7-5.1 [facility] Comment on above: Order Comment: Speci men Type: BLOOD SPECIMENOrdering Facility: [facility] Address: [address] [place] [address] Performed By: #### 2 4322-12, 2132-01 ####[facility] LABCLIA [id number] [place] [address] [place] Protein [Mass/Vol] 6.7 g/dL Normal 6.3-8.0 [facility] Comment on above: Order Comment: Speci men Type: BLOOD SPECIMENOrdering Facility: [facility] Address: [address] [place] [address] Performed By: #### 2 4322-12, 2132-01 ####[facility] LABCLIA [id number] [place] [id number] [place] Sodium [Moles/Vol] 140 mmol/L Normal 136-144 [facility] Comment on above: Order Comment: Speci men Type: BLOOD SPECIMENOrdering Facility: [facility] Address: [address] [place] [address] Performed By: #### 2 4322-12, 2132-01 ####[facility] LABCLIA [id number] [place] [address] [place] Urea nitrogen [Mass/Vol] 7 mg/dL Normal 7-21 [facility] Comment on above: Order Comment: Speci men Type: BLOOD SPECIMENOrdering Facility: [facility] Address: [address] [place] [address] Performed By: #### 2 4323-8, 2132-9 ####[facility] LABCLIA [id number] [place] [address] [place] Ferritin [facility]Pl[facility] Ferritin [Mass/Vol] 45.9 ng/mL Normal 14.7-205.1 [facility] Comment on above: Order Comment: Speci men Type: BLOOD SPECIMENOrdering Facility: [facility] Address: [address] [place] [address] Performed By: #### 5 0190-8, 3024-7, 2276-4, 3016-3 ####[facility] LABCLIA [id number] [place] [address] [place] Iron and Iron binding capaci panelon 02-20-2024 Iron [Mass/Vol] 30 ug/dL Low 41-186 [facility] Comment on above: Order Comment: Speci men Type: BLOOD SPECIMENOrdering Facility: [facility] Address: [address] [place] [address] Performed By: #### 5 0190-8, 3024-7, 6-4, 3016-3 ####[facility] LABCLIA [id number] [place] [address] [place] Iron binding capacity [Mass/Vol] 424 ug/dL High 232-386 [facility] Comment on above: Order Comment: Speci men Type: BLOOD SPECIMENOrdering Facility: [facility] Address: [address] [place] [address] Performed By: #### 5 0190-8, 3024-7, 2276-4, 3016-3 ####[facility] LABCLIA [id number] [place] [id number] [place] Iron/TIBC [Molar ratio] 7.1 % Low 15.0-57.0 [facility] Comment on above: Order Comment: Speci men Type: BLOOD SPECIMENOrdering Facility: [facility] Address: [address] [place] [address] Performed By: #### 5 0190-8, 3024-7, 2276-4, 3016-3 ####[facility] LABCLIA [id number] [place] [address] [place] T4 Free SerPl-mCncon 024 Free T4 [Mass/Vol] 1.6 ng/dL Normal 0.9-1.7 [facility] Comment on above: Order Comment: Speci men Type: BLOOD SPECIMENOrdering Facility: [facility] Address: [address] [place] [address] Performed By: #### 5 0190-8, 3024-7, 2276-4, 3016-3 ####[facility] LABIA [id number] [place] [address] [place] TSH SerPl-aCncon 02-20-2024 TSH Qn 6.900 m[IU]/L High 0.270-4.200 [facility] Comment on above: Order Comment: Speci men Type: BLOOD SPECIMENOrdering Facility: [facility] Address: [address] [place] [address] Performed By: #### 5 0190-8, 3024-7, 2276-4, 3016-3 ####[facility] LABIA [id number] [place] [address] [place] Vit B12 SerPl-mCncon 024 Cobalamin (Vitamin B12) [Mass/Vol] 1123 pg/mL Normal 232-1245 [facility] Comment on above: Order Comment: Speci men Type: BLOOD SPECIMENOrdering Facility: [facility] Address: [address] [place] [address] Performed By: #### 2 4323-8, 2132-9 ####[facility] LABCLIA [id number] [id number] [id number] [place] CNOVon 02-17-2024 CNOV Office Visit (FAMPWS ) PAYTON MCQUEEN ([id number]) 1965 F Date Time Provider Department 02/17/24 3:00 PM [facility] During your visit today, we recorded the following information about you: Pulse Respiration Blood pressure 86/minute 16/minute 155/85 Carly Lewis APRN.CLERICAL SUPERVISOR 02/17/2024 5:13 PM Signed This is a 58 year old female who presents today with: Patient presents with: Recheck: 2 day follow up; did not take metoprolol today HISTORY OF PRESENT ILLNESS: Payton Mcqueen is a 58 year old female. Patient presents with: Recheck: 2 day follow up; did not take metoprolol today Pt presents today for 2 day follow-up. She took the metoprolol on Thursday and Thursday. Refers that she developed abdominal pain and diarrhea after taking the metoprolol. Referred that pharmacist told her it was okay to not take today's dose. Refers that she felt poorly yesterday. She actually went to the ER. She was triaged there and had elevated blood pressure and reportedly normal EKG. She states that there were 9 people in front of her, so she decided to leave without further evaluation. She reports that her heartrate does not feel as racy. Cough is feeling improved. No further chest discomfort. She just feels a little off. She has been taking the buspar twice daily and questions if she should go back to three times daily. Also questions if thyroid could be off. PAST MEDICAL HISTORY: PAST MEDICAL HISTORY Diagnosis Date Acute gastritis without mention of hemorrhage Anxiety Benign neoplasm of stomach Cervical disc disorder with radiculopathy 02/18/2010 Cyst of ovary 01/01/2015 [facility] - see scanned documents Depressive disorder, not elsewhere classified Essential thrombocythemia (HCC) 06/02/2016 GERD (gastroesophageal reflux disease) Hypertension 08/28/11 IC (interstitial cystitis) Impaired fasting glucose 04/02/2010 Lumbar disc disease with radiculopathy 11/15/2010 Metabolic syndrome X Morbid obesity with BMI of 40.0-44.9, adult (HCC) 08/29/2013 Renal cyst, left 07/03/2016 18 mm, 06/18/16 Sciatica SI (sacroiliac) joint dysfunction 06/04/2011 Thoracolumbar back pain 07/20/2013 Unspecified hypothyroidism Urinary calculus, unspecified Renal stones PAST SURGICAL HISTORY Procedure Laterality Date CHOLECYSTECTOMY 1991 Cholecystectomy CYSTOSCOPY,DIL BLADDER,LOCAL ANESTH 01/18/14 EGD TRANSORAL BIOPSY SINGLE/MULTIPLE 04/09/2007 gastritis, gastric polyps KIDNEY SURGERY HX 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 Valadez PAST SURGICAL HISTORY OF WISDOM TEETH EXTRACTIONS PAST SURGICAL HISTORY OF 05/2012 bladder hydrodistension X 2 PAST SURGICAL HISTORY OF 2014 pain injection lumbar- multiple PAST SURGICAL HISTORY OF Cyst removed from head ALLERGIES Celebrex [Celecoxib], Erythromycin, Lisinopril, Metformin, Mobic [Meloxicam], Prochlorperazine, Toradol [Ketorolac], and Vesicare [Solifenacin] MEDICATIONS Current Outpatient Medications Medication Sig metoprolol succinate ER (TOPROL XL) 25 mg 24 hr tablet Take 1 tablet by mouth once daily. levoFLOXacin (LEVAQUIN) 500 mg tablet Take 1 tablet by mouth once daily for 10 days. albuterol HFA (PROVENTIL HFA) 90 mcg/actuation inhaler Inhale 2 Puffs as instructed every 4 hours as needed for wheezing/shortness of breath. benzonatate (TESSALON PERLE) 100 mg capsule Take 1-2 capsules every 8 hours as needed. busPIRone (BUSPAR) 15 mg tablet Take 1 tablet by mouth three times a day. levothyroxine (SYNTHROID) 150 mcg tablet Take 1 tablet by mouth daily before breakfast. sucralfate (CARAFATE) 1 gram tablet Take 1 tablet by mouth four times daily. Before meals and at bedtime ondansetron (ZOFRAN) 8 mg tablet Take 1 tablet by mouth every 8 hours as needed. buPROPion XL (WELLBUTRIN XL) 300 mg 24 hr tablet Take 1 tablet by mouth once daily. cetirizine (ZYRTEC) 10 mg tablet Take 1 tablet by mouth once daily. omeprazole (PRILOSEC) 40 mg capsule Take 1 capsule by mouth once daily. methenam/sod phos/mblue/hyoscy (UROGESIC-BLUE ORAL) Take 1 capsule by mouth once daily. mirabegron (MYRBETRIQ) 50 mg Tb24 Take 1 tablet by mouth once daily. SACCHAROMYCES BOULARDII (PROBIOTIC, S.BOULARDII, ORAL) Take by mouth once daily. No current facility-administered medications for this visit. FAMILY HISTORY Problem Relation Age of Onset Diabetes Father Hypertension Father Cancer Maternal Grandmother Lymphoma Heart Maternal Grandfather hypertension Hypertension Brother Social History Tobacco Use Smoking status: Never Smokeless tobacco: Never Vaping Use Vaping status: Never Used Substance Use Topics Alcohol use: Yes Comment: rarely Drug use: No EXAM: BP 164/90 Pulse 86 Resp 16 LMP 05/09/2018 (Approximate) SpO2 96% 155/85 PHYSICAL EXAM: General Appearance: Well appearing, alert, in n (more content not included)... Normal [facility] 12 Lead EKGon 02-15-[address] [facility] [address] [place] [address] 12 Lead EKG 02/15/24 1840 MR#: [id number] Acct: [id number] Name: PAYTON MCQUEEN Marifer Rep #: [id number] : 1965 58 From: Darvin Alejandro MD Attending Dr: Status: DEP ER Ordering Dr: Provider,Ed P. Date: 02/15/24 Location: ED Sex: F C Admitted: Test Reason : DYSRHYTHMIA Blood Pressure : / mmHG Vent. Rate : 086 BPM Atrial Rate : 086 BPM P-R Int : 162 ms QRS Dur : 098 ms QT Int : 370 ms P-R-T Axes : 032 013 026 degrees QTc Int : 442 ms Normal sinus rhythm Normal ECG When compared with ECG of 19-FEB-2021 13:23, No significant change was found Confirmed by Darvin Alejandro ([id number]), subeditor GEETA RINCON ([id number]) on 02/17/2024 10:35:50 AM Referred By: TB Confirmed By:Darvin Alejandro 02/17/24 1035 Date Darvin Alejandro MD CC: Dr. Sue Webre MD; ED PHYSICIAN PROVIDER Signed Normal [facility] CNOVon 02-15-2024 [facility] Office Visit (FAMPWS ) PAYTON MCQUEEN ([id number]) 1965 F Date Time Provider Department 02/15/24 7:40 AM [facility] During your visit today, we recorded the following information about you: Pulse Respiration Blood pressure 91/minute 16/minute 184/102 Carly Lewis APRN.CLERICAL SUPERVISOR 02/15/2024 9:12 AM Signed This is a 58 year old female who presents today with: Patient presents with: Recheck: 1 week follow up HISTORY OF PRESENT ILLNESS: Payton Mcqueen is a 58 year old female. Patient presents with: Recheck: 1 week follow up Pt presents today with ongoing URI symptoms. Some chest irritation. Some phlegm. Nauseated. Continues with cough. Fevers are improved. Slept all day yesterday. Stopped the DM medications. + fatigue. Decreased appetite, but is eating. Drinking lot of fluids. Feels like heart rate is up. No SOB. She has a hx of white coat syndrome. She initially had an appt scheduled for today for a recheck of her BP at her last appt. Refers that she previously developed symptomatic hypotension d/t office BP being treated. She is hesitant to treat the blood pressure. + anxiety. PAST MEDICAL HISTORY: PAST MEDICAL HISTORY Diagnosis Date Acute gastritis without mention of hemorrhage Anxiety Benign neoplasm of stomach Cervical disc disorder with radiculopathy 02/18/2010 Cyst of ovary 01/01/2015 [facility] - see scanned documents Depressive disorder, not elsewhere classified Essential thrombocythemia (HCC) 06/02/2016 GERD (gastroesophageal reflux disease) Hypertension 08/28/11 IC (interstitial cystitis) Impaired fasting glucose 04/02/2010 Lumbar disc disease with radiculopathy 11/15/2010 Metabolic syndrome X Morbid obesity with BMI of 40.0-44.9, adult ([facility]) 08/29/2013 Renal cyst, left 07/03/2016 18 mm, 06/18/16 Sciatica SI (sacroiliac) joint dysfunction 06/04/2011 Thoracolumbar back pain 07/20/2013 Unspecified hypothyroidism Urinary calculus, unspecified Renal stones PAST SURGICAL HISTORY Procedure Laterality Date CHOLECYSTECTOMY 1991 Cholecystectomy CYSTOSCOPY,DIL BLADDER,LOCAL ANESTH 01/18/14 EGD TRANSORAL BIOPSY SINGLE/MULTIPLE 04/09/2007 gastritis, gastric polyps KIDNEY SURGERY HX 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 Valadez PAST SURGICAL HISTORY OF WISDOM TEETH EXTRACTIONS PAST SURGICAL HISTORY OF 05/2012 bladder hydrodistension X 2 PAST SURGICAL HISTORY OF 2014 pain injection lumbar- multiple PAST SURGICAL HISTORY OF Cyst removed from head ALLERGIES Celebrex [Celecoxib], Erythromycin, Lisinopril, Metformin, Mobic [Meloxicam], Prochlorperazine, Toradol [Ketorolac], and Vesicare [Solifenacin] MEDICATIONS Current Outpatient Medications Medication Sig levoFLOXacin (LEVAQUIN) 500 mg tablet Take 1 tablet by mouth once daily for 10 days. albuterol HFA (PROVENTIL HFA) 90 mcg/actuation inhaler Inhale 2 Puffs as instructed every 4 hours as needed for wheezing/shortness of breath. benzonatate (TESSALON PERLE) 100 mg capsule Take 1-2 capsules every 8 hours as needed. busPIRone (BUSPAR) 15 mg tablet Take 1 tablet by mouth three times a day. levothyroxine (SYNTHROID) 150 mcg tablet Take 1 tablet by mouth daily before breakfast. sucralfate (CARAFATE) 1 gram tablet Take 1 tablet by mouth four times daily. Before meals and at bedtime ondansetron (ZOFRAN) 8 mg tablet Take 1 tablet by mouth every 8 hours as needed. buPROPion XL (WELLBUTRIN XL) 300 mg 24 hr tablet Take 1 tablet by mouth once daily. cetirizine (ZYRTEC) 10 mg tablet Take 1 tablet by mouth once daily. omeprazole (PRILOSEC) 40 mg capsule Take 1 capsule by mouth once daily. methenam/sod phos/mblue/hyoscy (UROGESIC-BLUE ORAL) Take 1 capsule by mouth once daily. mirabegron (MYRBETRIQ) 50 mg Tb24 Take 1 tablet by mouth once daily. SACCHAROMYCES BOULARDII (PROBIOTIC, S.BOULARDII, ORAL) Take by mouth once daily. No current facility-administered medications for this visit. FAMILY HISTORY Problem Relation Age of Onset Diabetes Father Hypertension Father Cancer Maternal Grandmother Lymphoma Heart Maternal Grandfather hypertension Hypertension Brother Social History Tobacco Use Smoking status: Never Smokeless tobacco: Never Vaping Use Vaping status: Never Used Substance Use Topics Alcohol use: Yes Comment: rarely Drug use: No EXAM: BP 184/102 Pulse 91 Resp 16 LMP 05/09/2018 (Approximate) SpO2 93% PHYSICAL EXAM: General Appearance: Well appearing, alert, in no acute distress, well-hydrated, well nourished. Skin: Skin color, texture, turgor normal, no suspicious rashes or lesions. Head: Normocephalic, no masses, lesions, tenderness or abnormalities. Eyes: Anicteric sclera. Pupils are equally round and reactive to light. Extraocular movements are intact. Ears: External ears normal, canals clear, Normal TMs b (more content not included)... Normal [facility] ECG COMPLETEon 02-15-2024 ECG COMPLETE Ventricular Rate : 9 0 BPM Atrial Rate : 90 BPM P-R Interval : 168 ms QRS Duration : 106 ms Q-T Interval : 374 ms QTC Calculation(Bazett) : 457 ms Calculated P [place] : 37 degrees Calculated R [place] : 9 degrees Calculated T [place] : 24 degrees SINUS RHYTHM WITH OCCASIONAL PREMATURE VENTRICULAR COMPLEXES OTHERWISE NORMAL ECG Confirmed by MD JAMEL, QAMARIBETH ([id number]) on 02/17/2024 4:01:50 PM NAME : PAYTON MCQUEEN PID : [id number] : 1965 Gender : Female Race : ORD : [id number] Procedure Date : Feb 15 2024 08:37:12 Edit Date : Feb 17 2024 16:01:52 Diagnosis: SINUS RHYTHM WITH OCCASIONAL PREMATURE VENTRICULAR COMPLEXES OTHERWISE NORMAL ECG Confirmed by MD MCCULLOUGH QARAB ([id number]) on 02/17/2024 4:01:50 PM Test Reason : Location : [facility] : [facility] Overread By : MD MCCULLOUGH QARAB Edited By : MD MCCULLOUGH QARAB Referred By : CARLY LEWIS Acquired by : Julian FLORIAN Normal [facility] XR CHEST 2V FRONTAL/LATon XR CHEST 2V FRONTAL/LAT * * *Final Report* * * DATE OF EXAM: Feb 09 2024 3:09PM WOX [id number] - XR CHEST 2V FRONTAL/LAT / PROCEDURE REASON: multiple diagnoses * * * * Physician Interpretation * * * * EXAMINATION: CHEST RADIOGRAPH (2 VIEW FRONTAL and LATERAL) CLINICAL HISTORY: Sinobronchitis Sinobronchitis MQ: XC2_6 EXAM DATE/TIME: 02/09/2024 3:09 PM COMPARISON: Chest x-ray on 02/01/2024 RESULT: Lines, tubes, and devices: None. Lungs and pleura: No consolidation. No lung mass. No pleural effusion. No pneumothorax. Cardiomediastinal silhouette: Stable cardiomediastinal silhouette. Bones and soft tissues: There are degenerative changes in the spine. IMPRESSION: No acute radiographic abnormality. 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 Professor: JOYCE Transcribe Date/Time: Feb 09 2024 4:09P Dictated by : VIKY PERRY MD This examination was interpreted and the report reviewed and electronically signed by: VIKY PERRY MD on Feb 09 2024 4:10PM EST [id number] Normal [facility] XR Chest PA and Lateralon IMPRESSION: No acute radiographic abnormality. 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 Professor: JOYCE Transcribe Date/Time: Feb 09 2024 4:09P Dictated by : VIKY PERRY MD This examination was interpreted and the report reviewed and electronically signed by: VIKY PERRY MD on Feb 09 2024 4:10PM EST DIVISION OF RADIOLOGY * * *Final Report* * * DATE OF EXAM: Feb 09 2024 3:09PM WOX [id number] - XR CHEST 2V FRONTAL/LAT / PROCEDURE REASON: multiple diagnoses * * * * Physician Interpretation * * * * EXAMINATION: CHEST RADIOGRAPH (2 VIEW FRONTAL & LATERAL) CLINICAL HISTORY: Sinobronchitis Sinobronchitis MQ: XC2_6 EXAM DATE/TIME: 02/09/2024 3:09 PM COMPARISON: Chest x-ray on 02/01/2024 RESULT: Lines, tubes, and devices: None. Lungs and pleura: No consolidation. No lung mass. No pleural effusion. No pneumothorax. Cardiomediastinal silhouette: Stable cardiomediastinal silhouette. Bones and soft tissues: There are degenerative changes in the spine. DIVISION OF RADIOLOGY Provider, [facility] - 02/09/2024 * * *Final Report* * * DATE OF EXAM: Feb 09 2024 3:09PM WOX [id number] - XR CHEST 2V FRONTAL/LAT / PROCEDURE REASON: multiple diagnoses * * * * Physician Interpretation * * * * EXAMINATION: CHEST RADIOGRAPH (2 VIEW FRONTAL & LATERAL) CLINICAL HISTORY: Sinobronchitis Sinobronchitis MQ: XC2_6 EXAM DATE/TIME: 02/09/2024 3:09 PM COMPARISON: Chest x-ray on 02/01/2024 RESULT: Lines, tubes, and devices: None. Lungs and pleura: No consolidation. No lung mass. No pleural effusion. No pneumothorax. Cardiomediastinal silhouette: Stable cardiomediastinal silhouette. Bones and soft tissues: There are degenerative changes in the spine. IMPRESSION IMPRESSION: No acute radiographic abnormality. 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 Professor: PSCB Transcribe Date/Time: Feb 09 2024 4:09P Dictated by : VIKY PERRY MD This examination was interpreted and the report reviewed and electronically signed by: VIKY PERRY MD on Feb 09 2024 4:10PM EST [facility] Radiology Study observation (narrative) [facility] XR Chest PA and LateralOrder ed By: Ccf Provider on 02-09-2024 [facility] CNOVon 02-08-2024 CNOV Office Visit (FAMPWS ) PAYTON MCQUEEN ([id number]) 1965 F Date Time Provider Department 02/08/24 6:40 PM CARLY LEWIS During your visit today, we recorded the following information about you: Temperature Pulse Respiration Blood pressure 100.2 degrees 95/minute 16/minute 180/100 Carly Lewis APRN.CLERICAL SUPERVISOR 02/08/2024 7:39 PM Signed This is a 58 year old female who presents today with: Patient presents with: Recheck: Follow up- URI HISTORY OF PRESENT ILLNESS: Payton Mcqueen is a 58 year old female. Patient presents with: Recheck: Follow up- URI Pt presents today with complaint of ongoing URI symptoms. She inially did a virtual visit on 01/30/2024 and treated for viral infection. She went to urgent care on 01/31/2024 and was started on doxycycline. Her symptoms persisted, so she was seen by primary care on 02/04/2024 and changed to Ceftin. She continues with fevers, cough, and congestion. + nausea. No diarrhea. She reports that every since she has had COVID, when she gets sick she has a prolonged recovery. She is using [id number] cold medication and used a D medication today She also has been having issues with yeast again and [facility] and being treated with fluconazole. PAST MEDICAL HISTORY: PAST MEDICAL HISTORY Diagnosis Date Acute gastritis without mention of hemorrhage Anxiety Benign neoplasm of stomach Cervical disc disorder with radiculopathy 02/18/2010 Cyst of ovary 01/01/2015 [facility] - see scanned documents Depressive disorder, not elsewhere classified Essential thrombocythemia (HCC) 06/02/2016 GERD (gastroesophageal reflux disease) Hypertension 08/28/11 IC (interstitial cystitis) Impaired fasting glucose 04/02/2010 Lumbar disc disease with radiculopathy 11/15/2010 Metabolic syndrome X Morbid obesity with BMI of 40.0-44.9, adult (HCC) 08/29/2013 Renal cyst, left 07/03/2016 18 mm, 06/18/16 Sciatica SI (sacroiliac) joint dysfunction 06/04/2011 Thoracolumbar back pain 07/20/2013 Unspecified hypothyroidism Urinary calculus, unspecified Renal stones PAST SURGICAL HISTORY Procedure Laterality Date CHOLECYSTECTOMY 1991 Cholecystectomy CYSTOSCOPY,DIL BLADDER,LOCAL ANESTH 01/18/14 EGD TRANSORAL BIOPSY SINGLE/MULTIPLE 04/09/2007 gastritis, gastric polyps KIDNEY SURGERY HX 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 Valadez PAST SURGICAL HISTORY OF WISDOM TEETH EXTRACTIONS PAST SURGICAL HISTORY OF 05/2012 bladder hydrodistension X 2 PAST SURGICAL HISTORY OF 2014 pain injection lumbar- multiple PAST SURGICAL HISTORY OF Cyst removed from head ALLERGIES Celebrex [Celecoxib], Erythromycin, Lisinopril, Metformin, Mobic [Meloxicam], Prochlorperazine, Toradol [Ketorolac], and Vesicare [Solifenacin] MEDICATIONS Current Outpatient Medications Medication Sig cefUROXime (CEFTIN) 500 mg tablet Take 1 tablet by mouth two times a day for 5 days. ipratropium bromide (ATROVENT) 42 mcg (0.06 %) nasal spray Use 1 Rentz in each nostril three times a day for 14 days. albuterol HFA (PROVENTIL HFA) 90 mcg/actuation inhaler Inhale 2 Puffs as instructed every 4 hours as needed for wheezing/shortness of breath. benzonatate (TESSALON PERLE) 100 mg capsule Take 1-2 capsules every 8 hours as needed. busPIRone (BUSPAR) 15 mg tablet Take 1 tablet by mouth three times a day. levothyroxine (SYNTHROID) 150 mcg tablet Take 1 tablet by mouth daily before breakfast. sucralfate (CARAFATE) 1 gram tablet Take 1 tablet by mouth four times daily. Before meals and at bedtime ondansetron (ZOFRAN) 8 mg tablet Take 1 tablet by mouth every 8 hours as needed. buPROPion XL (WELLBUTRIN XL) 300 mg 24 hr tablet Take 1 tablet by mouth once daily. cetirizine (ZYRTEC) 10 mg tablet Take 1 tablet by mouth once daily. omeprazole (PRILOSEC) 40 mg capsule Take 1 capsule by mouth once daily. methenam/sod phos/mblue/hyoscy (UROGESIC-BLUE ORAL) Take 1 capsule by mouth once daily. mirabegron (MYRBETRIQ) 50 mg Tb24 Take 1 tablet by mouth once daily. SACCHAROMYCES BOULARDII (PROBIOTIC, S.BOULARDII, ORAL) Take by mouth once daily. No current facility-administered medications for this visit. FAMILY HISTORY Problem Relation Age of Onset Diabetes Father Hypertension Father Cancer Maternal Grandmother Lymphoma Heart Maternal Grandfather hypertension Hypertension Brother Social History Tobacco Use Smoking status: Never Smokeless tobacco: Never Vaping Use Vaping status: Never Used Substance Use Topics Alcohol use: Yes Comment: rarely Drug use: No EXAM: BP 180/100 Pulse 95 Temp 37.9 ?C (100.2 ?F) Resp 16 LMP 05/09/2018 (Approximate) SpO2 95% PHYSICAL EXAM: General Appearance: Well appearing, alert, in no acute distress, well-hydrated, well nourished.. Skin: Skin color, texture, turgor normal, no suspicious rashe (more content not included)... Normal [facility] COVID AND INFLUENZA A/B AND RSV PCR, ROUTINEon 02-08-2024 SARS-CoV-2 (COVID-19) RNA LEILANI+probe Ql (Unsp spec) SARS-COV-2 (AGENT OF COVID-19) RNA: Not detected INFLUENZA A RNA: Not detected INFLUENZA B RNA: Not detected RESPIRATORY SYNCYTIAL VIRUS (RSV) RNA: Not detected Normal [facility] Comment on above: Performed By: #### C VFLRS ####[facility] LABCLIA [id number] [address] STATES OF [facility] Internal Medicine Office Vis iton 02-06-2024 Internal Medicine Office Visit [facility] [address] [place] [address] OFFICE VISIT Date of Service: 02/06/24 MR#: [id number] Acct: [id number] Name: RICHARPAYTON Marifer Rep #: [id number] 1 : 1965 Provider: TORREY leslie Age/Sex: 58/F Location[place] [facility] Status: Signed Intake Vital Signs 01/11/24 04:09 02/06/24 11:40 Height 5 ft 4 in BP 126/82 H Blood Pressure Location Lt brachial Position Sitting Respiration 14 Pulse 102 H Pulse Source Monitor Temp 97.8 F Temp Source Temporal Pulse Oximetry (%) 99 Oxygen Delivery Method room air Intake Visit Reasons: CONCERN FOR YEAST INFECTION Chief Complaint: right leg pain Allergies ketorolac tromethamine (From Toradol) Allergy (Severe, Verified 02/06/24 11:41) Hives solifenacin succinate (From Vesicare) Allergy (Severe, Verified 02/06/24 11:41) Hives erythromycin base (Erythromycin Base) Adverse Reaction (Severe, Verified 02/06/24 11:41) Nausea/Vom/Diarrhea celecoxib (From Celebrex) Adverse Reaction (Intermediate, Verified 02/06/24 11:41) Nausea/Vom/Diarrhea lisinopril Adverse Reaction (Mild, Verified 02/06/24 11:41) Vomiting [facility] Medical History Iron deficiency Thrombocytosis Leukocytosis Post-menopausal Depression Anxiety Thyroid disease Low iron Injury of back Gastric reflux Non-smoker History of stress test Hypertension Vaginal candidiasis Acute maxillary sinusitis, unspecified Shoulder pain Back pain Malignant tumor of kidney Thyroid disease Knee pain Severe headache Stomach ulcer Cancer Bladder distention Interstitial cystitis Pre-diabetes Essential thrombocythemia Surgical History History of root canal procedure History of cholecystectomy partial kidney removed Family History Father Diabetes Heart disease Hypertension Grandmother Cancer Social History number of children: 0 current occupational status: employed current occupation: [employer] Smoking Status: Never smoker alcohol intake: never substance use type: does not use seatbelt use: sometimes do you feel safe at home: Yes additional social history: single HPI HPI Chief Complaint: right leg pain Details: PAYTON MCQUEEN, is a 58 F who presents to urgent care with complaints of possible yeast infection. She reports she was evaluated at a different urgent care within the past 2 weeks and been prescribed 2 different antibiotics. She reports a history of recurrent fungal/yeast infections and has been seen by dermatology in the past. She reports recently within the past 1 to 2 days she has developed vaginal itching, redness, denies vaginal discharge however. She denies dysuria or other urinary complaints. She reports she typically develops a yeastlike rash to bilateral axilla region and groin which she feels is starting to begin because these areas are itchy but rash has not yet developed. She reports rash typically responds to fluconazole. She denies any additional symptoms and reports that she was prescribed antibiotics for upper respiratory infection which is clearing. She denies fever, chills, difficulty breathing, or wheezing. ROS Const Constitutional: No anorexia (as noted in hpi) Exam Const General: cooperative, healthy appearing, comfortable and no acute distress Nutritional Appearance: overweight Orientation: alert, awake and oriented x3 HENMT Head: normal to inspection Ears: hearing grossly normal bilaterally Nose: external nose normal Face and sinus: normal facial exam Mouth: oral mucosae normal, lip normal and tongue normal Throat: posterior oropharynx normal Eyes General: appearance normal, both eyes and all related structures Neck Neck: normal visual inspection Chest Chest palpation inspection: normal inspection of the chest Resp Effort Inspection: normal respiratory effort, able to speak in complete sentences, symmetric chest movement and cough Quality of cough: dry Auscultation: Bilateral: Clear to Auscultation Cardio Rate: regular rate Rhythm: regular rhythm Heart Sounds: S1 normal and S2 normal GI Inspection: obesity Musc Cervical Spine: normal cervical lordosis Skin Other: Very minimal erythema to skin friction areas of axilla, no obvious rash. She reports itching to bilateral anterior legs with no obvious rash. Neuro General: patient alert, patient awake and patient oriented x3 Extrem General: normal to inspection Psych Appearance: grossly normal Coding Level of Care Code Off vis,est,level 3 Diagnoses Vaginal candidiasis B37.3 Assessment and Plan Assessment (more content not included)... [facility] Office Visit (FAMPWS ) PAYTON MCQUEEN ([id number]) 1965 F Date Time Provider Department 02/04/24 5:20 PM [facility] During your visit today, we recorded the following information about you: Temperature Pulse Respiration Blood pressure 97.6 degrees 88/minute 14/minute 157/81 Weight 105.7 kg Corinna Toussaint APRN.BUD 02/04/2024 5:18 PM Signed Chief Complaint Patient presents with: Follow Up HPI Payton Mcqueen is a 58 year old female who presents here today for Above Complaints.. Patient presents for follow up. Patient was seen in [facility] 01/30 for cough and nasal congestion and started on doxycycline. Patient reports minimal improvement and has one day left of doxycycline. Past medical history, appointments, medications, allergies reviewed. Previous Medical History PAST MEDICAL HISTORY Diagnosis Date Acute gastritis without mention of hemorrhage Anxiety Benign neoplasm of stomach Cervical disc disorder with radiculopathy 02/18/2010 Cyst of ovary 01/01/2015 [facility] - see scanned documents Depressive disorder, not elsewhere classified Essential thrombocythemia (HCC) 06/02/2016 GERD (gastroesophageal reflux disease) Hypertension 08/28/11 IC (interstitial cystitis) Impaired fasting glucose 04/02/2010 Lumbar disc disease with radiculopathy 11/15/2010 Metabolic syndrome X Morbid obesity with BMI of 40.0-44.9, adult (HCC) 08/29/2013 Renal cyst, left 07/03/2016 18 mm, 06/18/16 Sciatica SI (sacroiliac) joint dysfunction 06/04/2011 Thoracolumbar back pain 07/20/2013 Unspecified hypothyroidism Urinary calculus, unspecified Renal stones Previous Surgical History PAST SURGICAL HISTORY Procedure Laterality Date CHOLECYSTECTOMY 1991 Cholecystectomy CYSTOSCOPY,DIL BLADDER,LOCAL ANESTH 01/18/14 EGD TRANSORAL BIOPSY SINGLE/MULTIPLE 04/09/2007 gastritis, gastric polyps KIDNEY SURGERY HX 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 6 weeks Erythromycin GI Upset Lisinopril Unknown Cough, hypotension Metformin GI Upset Mobic [Meloxicam] Vomiting Prochlorperazine Mental Status Change Agitation, felt ill Toradol [Ketorolac] Vomiting Vesicare [Solifenac* Rash Current Medications Current Outpatient Medications on File Prior to Visit Medication Sig doxycycline monohydrate 100 mg tablet Take 1 tablet by mouth two times a day for 7 days. ipratropium bromide (ATROVENT) 42 mcg (0.06 %) nasal spray Use 1 Rentz in each nostril three times a day for 14 days. guaiFENesin (MUCINEX) 1,200 mg Ta12 Take 1 tablet by mouth two times a day for 7 days. albuterol HFA (PROVENTIL HFA) 90 mcg/actuation inhaler Inhale 2 Puffs as instructed every 4 hours as needed for wheezing/shortness of breath. benzonatate (TESSALON PERLE) 100 mg capsule Take 1-2 capsules every 8 hours as needed. busPIRone (BUSPAR) 15 mg tablet Take 1 tablet by mouth three times a day. levothyroxine (SYNTHROID) 150 mcg tablet Take 1 tablet by mouth daily before breakfast. sucralfate (CARAFATE) 1 gram tablet Take 1 tablet by mouth four times daily. Before meals and at bedtime ondansetron (ZOFRAN) 8 mg tablet Take 1 tablet by mouth every 8 hours as needed. buPROPion XL (WELLBUTRIN XL) 300 mg 24 hr tablet Take 1 tablet by mouth once daily. cetirizine (ZYRTEC) 10 mg tablet Take 1 tablet by mouth once daily. omeprazole (PRILOSEC) 40 mg capsule Take 1 capsule by mouth once daily. methenam/sod phos/mblue/hyoscy (UROGESIC-BLUE ORAL) Take 1 capsule by mouth once daily. mirabegron (MYRBETRIQ) 50 mg Tb24 Take 1 tablet by mouth once daily. SACCHAROMYCES BOULARDII (PROBIOTIC, S.BOULARDII, ORAL) Take by mouth once daily. No current facility-administered medications on file prior to visit. Social History Social History Tobacco Use Smoking status: Never Smokeless tobacco: Never Vaping Use Vaping status: Never Used Substance Use Topics Alcohol use: Yes Comment: rarely Drug use: No Review of Symptoms REVIEW OF SYSTEMS SEE HPI EXAM: BP 157/81 Pulse 88 Temp 36.4 ?C (97.6 ?F) Resp 14 Wt 105.7 kg (233 lb) LMP 05/09/2018 (Approximate) BMI 41.27 kg/m? General Appearance: Well appearing, alert, in no acute distress, well-hydrated, well nourished.. Nose/Sinuses: Positive findings: mucosa erythematous and swollen, puru (more content not included)... Normal [facility] CNPNon 02-01-2024 CNPN Telephone (UCWSTR) PAYTON MCQUEEN ([id number]) 1965 F Date Time Provider Department 02/01/24 JULI HOLMAN [facility] During your visit today, we recorded the following information about you: Juli Holman APRN.[facility] 02/01/2024 4:04 PM Signed CXR negative Continue treatment plan discussed at time of exam. Follow up with PCP for continued and worsening symptoms. Please advise. Yusra Szymanski MA 02/01/2024 7:24 PM Signed Pt was notified of the results. Pt verbalized understanding. Yusra Szymanski MA Allergies As of Date: 02/01/2024 Noted Allergy Reaction CELEBREX (CELECOXIB) 05/28/2005 Comments: upsets stomach after prolonged use ie. 6 weeks ERYTHROMYCIN 02/05/2005 8 - GI Upset LISINOPRIL 01/23/2018 16 - Unknown Comments: Cough, hypotension METFORMIN 02/03/2019 8 - GI Upset MOBIC (MELOXICAM) 01/15/2023 11 - Vomiting PROCHLORPERAZINE 09/29/2016 1 - Mental Status Change Comments: Agitation, felt ill TORADOL (KETOROLAC) 01/15/2015 11 - Vomiting VESICARE (SOLIFENACIN) 11/20/2009 2 - Rash Date Reviewed: 01/31/2024 Reviewed by: Elvia Robert LPN - Fully Assessed Reason for Visit: Results [95] Prescriptions as of 02/01/2024 - doxycycline monohydrate 100 mg tablet Take 1 tablet by mouth two times a day for 7 days. - ipratropium bromide (ATROVENT) 42 mcg (0.06 %) nasal spray Use 1 Rentz in each nostril three times a day for 14 days. - guaiFENesin (MUCINEX) 1,200 mg Ta12 Take 1 tablet by mouth two times a day for 7 days. - albuterol HFA (PROVENTIL HFA) 90 mcg/actuation inhaler Inhale 2 Puffs as instructed every 4 hours as needed for wheezing/shortness of breath. - benzonatate (TESSALON PERLE) 100 mg capsule Take 1-2 capsules every 8 hours as needed. - busPIRone (BUSPAR) 15 mg tablet Take 1 tablet by mouth three times a day. - levothyroxine (SYNTHROID) 150 mcg tablet Take 1 tablet by mouth daily before breakfast. - sucralfate (CARAFATE) 1 gram tablet Take 1 tablet by mouth four times daily. Before meals and at bedtime - ondansetron (ZOFRAN) 8 mg tablet Take 1 tablet by mouth every 8 hours as needed. - buPROPion XL (WELLBUTRIN XL) 300 mg 24 hr tablet Take 1 tablet by mouth once daily. - cetirizine (ZYRTEC) 10 mg tablet Take 1 tablet by mouth once daily. - omeprazole (PRILOSEC) 40 mg capsule Take 1 capsule by mouth once daily. - methenam/sod phos/mblue/hyoscy (UROGESIC-BLUE ORAL) Take 1 capsule by mouth once daily. - mirabegron (MYRBETRIQ) 50 mg Tb24 Take 1 tablet by mouth once daily. - SACCHAROMYCES BOULARDII (PROBIOTIC, S.BOULARDII, ORAL) Take by mouth once daily. Meds Comments as of 09/26/2022: Was given [facility] at [facility] ED visit Problem List As Of Date 02/01/2024 Noted Resolved Lumbago [M54.50] 02/06/2005 03/26/2016 Hypothyroidism [E03.9] Greater Trochanteric bursitis right [M76.899] 05/28/2005 03/26/2016 Sciatica [M54.30] 06/13/2005 03/26/2016 GENERALIZED ANXIETY DIS [F41.1] 06/11/2006 ESOPHAGEAL REFLUX [K21.9] 08/04/2006 Acute gastritis without mention of hemorrhage [*04/09/2007 03/26/2016 ADJUSTMENT DISORDER WITH DEPRESSED MOOD [F43.21]01/28/2008 BENIGN HYPERTENSION [I10] 03/17/2008 Contusion of chest wall [S20.219A] 06/09/2008 03/26/2016 Thoracic or lumbosacral neuritis or radiculitis*09/19/2008 03/26/2016 Cluster headache syndrome [G44.009] 04/07/2009 03/26/2016 Pelvic pain in female [R10.2] 04/25/2009 03/26/2016 Chronic interstitial cystitis [N30.10] 05/14/2009 Cervical radiculopathy [M54.12] 01/11/2010 03/26/2016 Brachial neuritis or radiculitis NOS [M54.12] 02/04/2010 03/26/2016 Cervical disc disorder with radiculopathy [M50.*02/18/2010 03/26/2016 Impaired glucose tolerance [R73.02] 04/02/2010 Lumbar disc disease with radiculopathy [M51.16] 11/15/2010 03/26/2016 Piriformis syndrome [G57.00] 01/20/2011 03/26/2016 Nonallopathic lesion of sacral region, not else*02/10/2011 03/26/2016 Avascular necrosis of hip [M87.059] 04/15/2011 SI (sacroiliac) joint dysfunction [M53.3] 06/04/2011 03/26/2016 Obesity, Class III, BMI 40-49.9 (morbid obesity*10/01/2011 Lumbar facet arthropathy (HCC) [M47.816] 10/17/2011 03/26/2016 Lumbar spondylosis [M47.816] 10/17/2011 03/26/2016 Left shoulder strain [S46.912A] 10/29/2012 10/19/2014 Left renal mass [N28.89] 06/16/2013 03/26/2016 Thoracolumbar back pain [M54.50, M54.6] 07/20/2013 03/26/2016 Unspecified gastritis and gastroduodenitis with*09/15/2013 03/26/2016 Right sided abdominal pain [R10.9] 01/19/2015 03/26/2016 Strain of right knee and leg [S86.911A] 02/06/2016 03/26/2016 Overactive bladder [N32.81] 02/06/2016 Essential thrombocythemia (HCC) [D47.3] 06/02/2016 Leukocytosis [D72.829] 06/02/2016 Primary cancer of left kidney (HCC) [C64.2] 08/08/2016 06/04/2018 Popliteal cyst, right [M71.21] 05/01/2017 Acute lumbar myofascial strain [S39.012A] 03/15/2018 Renal oncocytoma, left [D30.02] 06/04/2018 Bake (more content not included)... Normal [facility] XR CHEST 2V FRONTAL/LATon XR CHEST 2V FRONTAL/LAT * * *Final Report* * * DATE OF EXAM: Feb 01 2024 3:52PM WOX [id number] - XR CHEST 2V FRONTAL/LAT / PROCEDURE REASON: Acute cough * * * * Physician Interpretation * * * * EXAMINATION: CHEST RADIOGRAPH (2 VIEW FRONTAL and LATERAL) CLINICAL HISTORY: Acute cough MQ: XC2_6 EXAM DATE/TIME: 02/01/2024 3:52 PM COMPARISON: Chest x-ray dated 02/17/2023 RESULT: Lines, tubes, and devices: None. Lungs and pleura: No consolidation. No lung mass. No pleural effusion. No pneumothorax. Cardiomediastinal silhouette: Normal cardiomediastinal silhouette. Bones and soft tissues: Bridging anterior osteophyte formation in the thoracic spine. IMPRESSION: No acute radiographic abnormality. 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 Professor: [facility] Transcribe Date/Time: Feb 01 2024 3:53P Dictated by : DESHAWN CALABRESE MD This examination was interpreted and the report reviewed and electronically signed by: DESHAWN CALABRESE MD on Feb 01 2024 3:56PM EST [id number] Normal [facility] XR Chest PA and Lateralon IMPRESSION: No acute radiographic abnormality. 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 Professor: JOYCE Transcribe Date/Time: Feb 01 2024 3:53P Dictated by : DSEHAWN CALABRESE MD This examination was interpreted and the report reviewed and electronically signed by: DESHAWN CALABRESE MD on Feb 01 2024 3:56PM [facility] DIVISION OF RADIOLOGY * * *Final Report* * * DATE OF EXAM: Feb 01 2024 3:52PM WOX [id number] - XR CHEST 2V FRONTAL/LAT / PROCEDURE REASON: Acute cough * * * * Physician Interpretation * * * * EXAMINATION: CHEST RADIOGRAPH (2 VIEW FRONTAL & LATERAL) CLINICAL HISTORY: Acute cough MQ: XC2_6 EXAM DATE/TIME: 02/01/2024 3:52 PM COMPARISON: Chest x-ray dated 02/17/2023 RESULT: Lines, tubes, and devices: None. Lungs and pleura: No consolidation. No lung mass. No pleural effusion. No pneumothorax. Cardiomediastinal silhouette: Normal cardiomediastinal silhouette. Bones and soft tissues: Bridging anterior osteophyte formation in the thoracic spine. DIVISION OF RADIOLOGY Provider, Francisca Jonathan [facility] - 02/01/2024 * * *Final Report* * * DATE OF EXAM: Feb 01 2024 3:52PM WOX [id number] - XR CHEST 2V FRONTAL/LAT / PROCEDURE REASON: Acute cough * * * * Physician Interpretation * * * * EXAMINATION: CHEST RADIOGRAPH (2 VIEW FRONTAL & LATERAL) CLINICAL HISTORY: Acute cough MQ: XC2_6 EXAM DATE/TIME: 02/01/2024 3:52 PM COMPARISON: Chest x-ray dated 02/17/2023 RESULT: Lines, tubes, and devices: None. Lungs and pleura: No consolidation. No lung mass. No pleural effusion. No pneumothorax. Cardiomediastinal silhouette: Normal cardiomediastinal silhouette. Bones and soft tissues: Bridging anterior osteophyte formation in the thoracic spine. IMPRESSION IMPRESSION: No acute radiographic abnormality. 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 Professor: PSCB Transcribe Date/Time: Feb 01 2024 3:53P Dictated by : DESHAWN CALABRESE MD This examination was interpreted and the report reviewed and electronically signed by: DESHAWN CALABRESE MD on Feb 01 2024 3:56PM [facility] Radiology Study observation (narrative) [facility] XR Chest PA and LateralOrder ed By: Ccf Provider on 02-01-2024 [facility] CNOVon 01-31-2024 CNOV Office Visit (UCWSTR ) PAYTON MCQUEEN ([id number]) 1965 F Date Time Provider Department 01/31/24 1:30 PM GLENDA OMER [facility] During your visit today, we recorded the following information about you: Temperature Pulse Respiration Blood pressure 98.3 degrees 89/minute 20/minute 151/86 Weight 106 kg Glenda Omer, OCEANOGRAPHER PHYSICAL.CLERICAL SUPERVISOR 01/31/2024 1:50 PM Signed Subjective The history is provided by the patient. No humanities and languages professor was used. HPI Payton Mcqueen is a 58 year old female who presents today for CC of cough and chest congestion starting a week ago, that has worsened over the past 24 hours. She has used mucinex, tessalon perls, with short term relief. She also has had a low grade fever. LMP 05/09/2018 (Approximate) Social History Tobacco Use Smoking status: Never Smokeless tobacco: Never Vaping Use Vaping status: Never Used Substance Use Topics Alcohol use: Yes Comment: rarely Drug use: No PAST MEDICAL HISTORY No date: Acute gastritis without mention of hemorrhage No date: Anxiety No date: Benign neoplasm of stomach 02/18/2010: Cervical disc disorder with radiculopathy 01/01/2015: Cyst of ovary Comment: [facility] - see scanned documents No date: Depressive disorder, not elsewhere classified 06/02/2016: Essential thrombocythemia (HCC) No date: GERD (gastroesophageal reflux disease) 08/28/11: Hypertension No date: IC (interstitial cystitis) 04/02/2010: Impaired fasting glucose 11/15/2010: Lumbar disc disease with radiculopathy No date: Metabolic syndrome X 08/29/2013: Morbid obesity with BMI of 40.0-44.9, adult (HCC) 07/03/2016: Renal cyst, left Comment: 18 mm, 06/18/16 No date: Sciatica 06/04/2011: SI (sacroiliac) joint dysfunction 07/20/2013: Thoracolumbar back pain No date: Unspecified hypothyroidism No date: Urinary calculus, unspecified Comment: Renal stones I have confirmed and edited as necessary, the [facility] Review of Systems Constitutional: Positive for fever. Negative for chills. HENT: Positive for congestion. Negative for ear pain, sinus pain and sore throat. Respiratory: Positive for cough. Negative for sputum production, shortness of breath and wheezing. Cardiovascular: Negative for chest pain. Gastrointestinal: Negative for abdominal pain, diarrhea, nausea and vomiting. Musculoskeletal: Negative for myalgias. Neurological: Negative for headaches. Objective Physical Exam Vitals and nursing note reviewed. HENT: Head: Normocephalic and atraumatic. Right Ear: Tympanic membrane, ear canal and external ear normal. Left Ear: Tympanic membrane, ear canal and external ear normal. Nose: Mucosal edema, congestion and rhinorrhea present. Right Sinus: No maxillary sinus tenderness or frontal sinus tenderness. Left Sinus: No maxillary sinus tenderness or frontal sinus tenderness. Mouth/Throat: Pharynx: Uvula midline. No oropharyngeal exudate or posterior oropharyngeal erythema. Cardiovascular: Rate and Rhythm: Normal rate and regular rhythm. Heart sounds: Normal heart sounds. Pulmonary: Effort: Pulmonary effort is normal. Breath sounds: Examination of the right-upper field reveals rhonchi. Examination of the left-upper field reveals rhonchi. Rhonchi present. Lymphadenopathy: Head: Right side of head: No submental, submandibular or tonsillar adenopathy. Left side of head: No submental, submandibular or tonsillar adenopathy. Cervical: No cervical adenopathy. Skin: General: Skin is warm and dry. Neurological: Mental Status: She is alert. Psychiatric: Mood and Affect: Affect normal. ASSESSMENT/PLAN: 1. Nasal congestion - ICD9: 478.19, ICD10: R09.81 (primary diagnosis) URI vs sinusitis Nasal saline, flonase Mucinex Start doxycyline 2. Acute cough - ICD9: 786.2, ICD10: R05.1 Continue mucinex and tessalon perls Doxycycline start, possible pneumonia If cxr positive will need second antibiotic added. - XR CHEST 2V FRONTAL/LAT Diagnosis and treatment plan were discussed and questions were answered to the patient's satisfaction. Pt acknowledged understanding of concepts and follow up plan. Specific signs and symptoms that would indicate the need for higher level of care were discussed in detail warranting prompt ER evaluation. Glenda Omer APRN.Glenda Valentine APRN.CNP 01/31/2024 2:17 PM Signed Addended by: GLENDA OMER on: 01/31/2024 02:17 PM Modules accepted: Orders Allergies As of Date: 01/31/2024 Noted Allergy Reaction CELEBREX (CELECOXIB) 05/28/2005 Comments: upsets stomach after prolonged use ie. 6 weeks ERYTHROMYCIN 02/05/2005 8 - GI Upset LISINOPRIL 01/23/2018 16 - Unknown Comments: Cough, hypotension METFORMIN 02/03/2019 8 - GI Upset MOBIC (MELOXICAM) 01/15/2023 11 - Vomiting PROCHLORPERAZINE 09/29/2016 1 - Mental Status Change Comments: Agitation, felt ill TORADOL (KETOROLAC) 01/15/2015 11 - Vomiting VESICARE (S (more content not included)... Normal [facility] COVID AND INFLUENZA A/B AND RSV PCR, ROUTINEon 01-31-2024 SARS-CoV-2 (COVID-19) RNA LEILANI+probe Ql (Unsp spec) SARS-COV-2 (AGENT OF COVID-19) RNA: Not detected INFLUENZA A RNA: Not detected INFLUENZA B RNA: Not detected RESPIRATORY SYNCYTIAL VIRUS (RSV) RNA: Not detected Normal [facility] Comment on above: Performed By: #### C VFLRS ####[facility] LABCLIA [id number] [address] [place] CNOVon 01-14-2024 CNOV Office Visit (FAMPWS ) PAYTON MCQUEEN ([id number]) 1965 F Date Time Provider Department 01/14/24 10:20 AM SUE WEBER FAMPWS During your visit today, we recorded the following information about you: Pulse Respiration Blood pressure Weight 78/minute 18/minute 144/80 106.2 kg Sue Weber MD 01/14/2024 11:19 AM Signed Chief Complaint Patient presents with: Hospital Follow Up HPI Payton Mcqueen is a 58 year old female who presents here today for a Hospital follow up. Pt seen in [facility] ED on 01/11/24 for stomach pain. Reports she woke up Thursday night at 3:00 am on 01/11/24. Notes her stomach pain was very painful and she asked for a friend to drive her to the ED. Pt notes that Provider in the ED was confident it was appendicitis, but on imaging it was normal and labs. Pt reports she was having pain in RLQ. Pain has some what improved but she feels nauseated frequently. Was given Zofran from the ED. Has had recurrent low grade fevers since having Covid. Denies any fever over the past 24 hours. States she's eating but not much. Eating more bland foods. Does have some issues with constipation, using Miralax. Was able to have a BM yesterday, but worried about taking too much. 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 Last week pt reports she was fine when working. Reports not going to work this week. Requesting work excuse. Anxiety - No longer taking Ativan. ED records - HPI - GI History of Present Illness Chief Complaint: Abd Pain Informant: patient and friend Narrative: 58-year-old female 1-2 days of generalized abdominal discomfort that now seems to be focused in the right lower quadrant. Low-grade fevers up to 100.3, she is99.5 here, some nausea no vomiting, poor appetite and a couple bouts of some diarrhea no blood. No melena. History of cholecystectomy and a partial nephrectomy due to a mass that was thought to potentially be cancer, she states it ended up being benign. None of the surgeries were recent. Denies any urinary symptoms, and states this distinctly feels different than a UTI she had in the past. She had some back pain earlier but none now Medical decision making narrative: Concern here is for acute appendicitis, she provides fairly classic history and exam. She does not have rebound tenderness, so I feel she is safe to await an IV contrasted CT. In the meantime labs obtained and she is provided IV fluids, Zofran, morphine. Her labs were reviewed. She has a significant leukocytosis however this is common for her, and she is aware of this, related to her chronic myeloproliferative disorder, which also causes her to have thrombocytosis. Her platelet count is not as high as it usually is, 562. Again out of concern for appendicitis we did obtain a CT of the abdomen/pelvis. I reviewed the images aswell as the report which I agree with. It is negative for any acute including appendicitis. There were no mesenteric lymph nodes noted. However, I do think this could be a mimic such as mesenteric adenitis, maybe this is caused by a virus which is why she is having low-grade fevers. She is not having urinary symptoms I do not think we need to check her urine. She does have quite a bit of stool present in the right hemicolon. I asked her about constipation she confirms that she has been constipated recently. We talked about potentially treating that at home, and following up as needed she is asking for a work note which was given as well as a prescription for nausea medication. Again I think her white blood count represents her chronic myeloproliferative disorder and notnecessarily an acute inflammatory disorder causing her pain CT/Abdomen/Pelvis W IV Cont ONLY IMPRESSION: 1. No acute intra-abdominal abnormalities. 2. Marked splenomegaly measuring over 20 cm in length. Worsening compared to the previous examination. This could be secondary to underlying hematologic, metabolic or storage disease, but a neoplastic process is not excluded. Clinical workup is recommended. Electronically Signed: Christian Meek MD at 6:12 ED Past medical history, appointments, medications, allergies reviewed. Previous Medical History PAST MEDICAL HISTORY No date: Acute gastritis without mention of hemorrhage No date: Anxiety No date: Benign neoplasm of stomach 02/18/2010: Cervical disc disorder with radiculopathy 01/01/2015: Cyst of ovary Comment: [facility] - see scanned documents No date: Depressive disorder, not elsewhere classified 06/02/2016: Essential thrombocythemia (HCC) No date: GERD (gastroesophageal reflux disease) 08/28/11: Hypertension No date: IC (interstitial cystitis) 04/02/2010: Impaired fasting glucose 11/15/2010: Lumbar disc disease with radiculopathy No date: Metabolic syndrome X 08/29/2013: Morbid obesi (more content not included)... Normal [facility] Abdomen/Pelvis W IV Cont ONL Yon 01-11-2024 Abdomen/Pelvis W IV Cont ONLY [facility] Imaging Services [address] [place] [address] Abdomen/Pelvis W IV Cont ONLY MR#: [id number] Acct: [id number] Name: PAYTON MCQUEEN Rep #: [id number] : 1965 F 58 From: Christian Meek MD PCP: Dr. Sue Weber MD Status: REG ER Study: Abdomen/Pelvis W IV Cont ONLY Date of Exam: Exam# [id number] Ordering Dr: Yefri Gutierrez MD :[id number] EXAM: CT ABDOMEN AND PELVIS WITH INTRAVENOUS CONTRAST CLINICAL INDICATION: RLQ pain w/ nausea, low grade fever TECHNIQUE: Helically acquired images were obtained of the abdomen and pelvis with intravenous contrast. This CT exam was performed using one or more of the following dose reduction techniques: automated exposure control, adjustment of the mA and/or kV according to patient size, and/or use of iterative reconstruction technique. CONTRAST: IV 100mL [id number] RADIATION DOSE: CTDIvol = 17.00 mGy, DLP = 1353.46 mGy-cm COMPARISON: CT abdomen and pelvis 02/05/2021 FINDINGS: LOWER THORAX: Unremarkable. Lung bases are clear. No cardiomegaly. No significant pericardial effusion. ABDOMEN: LIVER: Hepatomegaly. GALLBLADDER AND BILE DUCTS: Cholecystectomy. No intra- or extrahepatic biliary ductal dilation. PANCREAS: Unremarkable. No focal cystic or solid mass. SPLEEN: Marked splenomegaly measuring over 20 cm in length. ADRENALS: Unremarkable. No nodules. KIDNEYS AND URETERS: Unremarkable. Normal renal size and position. No hydronephrosis. STOMACH AND BOWEL: Diverticular disease of the colon with no diverticulitis. No stomach or bowel distention. PELVIS: APPENDIX: No evidence of acute appendicitis. BLADDER: Unremarkable. REPRODUCTIVE: Unremarkable as visualized. No mass. ABDOMEN and PELVIS: INTRAPERITONEAL SPACE: Unremarkable. No ascites or other fluid collection. No free air. BONES/JOINTS: Unremarkable. No suspicious lytic or blastic abnormality. SOFT TISSUES: Unremarkable. No discrete abdominal or pelvic wall hernia. VASCULATURE: Unremarkable. Abdominal aorta is non-dilated. LYMPH NODES: Unremarkable. No enlarged lymph nodes. CT/Abdomen/Pelvis W IV Cont ONLY IMPRESSION: 1. No acute intra-abdominal abnormalities. 2. Marked splenomegaly measuring over 20 cm in length. Worsening compared to the previous examination. This could be secondary to underlying hematologic, metabolic or storage disease, but a neoplastic process is not excluded. Clinical workup is recommended. Electronically Signed: Christian Meek MD at 6:12 EDT , CC: Dr. Yefri Gutierrez MD; Dr. Sue Weber MD 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 Professor: Signed Normal [facility] CBC W/Diff, Automatedon 12-23 SMEAR COMMENT SCANNED Normal [facility] Comment on above: Performed By: #### L 100.0100, L500.4050 #### [facility] [address] [place], [address] Comprehensive Metabolic Prof ilon 01-11-2024 Albumin [Mass/Vol] 3.6 g/dL Normal 3.2-5.0 [facility] Comment on above: Performed By: #### L 100.0100, L500.4050 ####[facility] [address] [place], [address] Albumin/Globulin [Mass ratio] 0.9 {ratio} Normal 0.9-2.4 [facility] Comment on above: Performed By: #### L 100.0100, L500.4050 ####[facility] [address] [place], [address] ALK P 171 U/L High 45-117 [facility] Comment on above: Performed By: #### L 100.0100, L500.4050 ####[facility] [address] [place], [address] ALT [Catalytic activity/Vol] 24 U/L Normal 13-56 [facility] Comment on above: Performed By: #### L 100.0100, L500.4050 ####[facility] [address] [place], [address] AST [Catalytic activity/Vol] 31 U/L Normal 15-37 [facility] Comment on above: Performed By: #### L 100.0100, L500.4050 ####[facility] [address] [place], [address] Bilirubin [Mass/Vol] 0.80 mg/dL Normal 0.20-1.00 [facility] Comment on above: Result Comment: For patients on eltrombopag therapy, use of Dimension [place] TBIL is not recommended. Performed By: #### L 100.0100, L500.4050 ####[facility] [address] [place], [address] BUN/CRE 11.3 RATIO Normal 10-20 [facility] Comment on above: Performed By: #### L 100.0100, L500.4050 ####[facility] [address] [place], [address] CA,Total 9.1 mg/dL Normal 8.5-10.1 [facility] Comment on above: Performed By: #### L 100.0100, L500.4050 ####[facility] [address] [place], [address] Chloride [Moles/Vol] 108 mmol/L High 98-107 [facility] Comment on above: Performed By: #### L 100.0100, L500.4050 ####[facility] [address] [place], [address] CO2 [Moles/Vol] 28.0 mmol/L Normal 21.0-32.0 [facility] Comment on above: Performed By: #### L 100.0100, L500.4050 ####[facility] [address] [place], [address] Creatinine [Mass/Vol] 0.88 mg/dL Normal 0.55-1.02 [facility] Comment on above: Result Comment: The validity of the calculated GFR GFRAA in patients over 70 years has not been determined. Clinical correlation is essential. Performed By: #### L 100.0100, L500.4050 ####[facility] [address] [place], [address] EST GFR - AA 85 mL/min Normal >60 [facility] Comment on above: Result Comment: Afri can Uzbek GFR Calc Performed By: #### L 100.0100, L500.4050 ####[facility] [address] [place], [address] GAP 6 Normal 5-15 [facility] Comment on above: Performed By: #### L 100.0100, L500.4050 ####[facility] [address] [place], [address] GFR/1.73 sq M.predicted among non-blacks MDRD (S/P/Bld) [Vol rate/Area] 70 mL/min/{1.73_m2} Normal >60 [facility] Comment on above: Result Comment: Non- GFR Calc Performed By: #### L 100.0100, L500.4050 ####[facility] [address] [place], [address] Globulin (S) [Mass/Vol] 3.8 g/dL Normal 2.2-4.2 [facility] Comment on above: Performed By: #### L 100.0100, L500.4050 ####[facility] [address] [place], [address] Glucose [Mass/Vol] 97 mg/dL Normal 74-106 [facility] Comment on above: Performed By: #### L 100.0100, L500.4050 ####[facility] [address] [place], [address] Potassium [Moles/Vol] 3.7 mmol/L Normal 3.5-5.1 [facility] Comment on above: Performed By: #### L 100.0100, L500.4050 ####[facility] [address] [place], [address] Sodium [Moles/Vol] 142 mmol/L Normal 136-145 [facility] Comment on above: Performed By: #### L 100.0100, L500.4050 ####[facility] [address] [place], [address] T PROT 7.4 g/dL Normal 6.4-8.2 [facility] Comment on above: Performed By: #### L 100.0100, L500.4050 ####[facility] [address] [place], [address] Urea nitrogen [Mass/Vol] 10 mg/dL Normal 7-18 [facility] Comment on above: Performed By: #### L 100.0100, L500.4050 ####[facility] [address] [place], [address] Emergency Department Summary on 01-11-2024 Emergency Department Summary [facility] Medical Records Department [address] [place] [address] Emergency Department Summary 01/11/24 MR#: [id number] Acct: [id number] Name: PAYTON MCQUEEN Rep #: [id number] : 1965 58 From: Yefri Gutierrez MD PCP: Dr. Sue Weber MD Status:REG ER Location: ED HPI HPI - GI History of Present Illness Chief Complaint: Abd Pain Informant: patient and friend Narrative Narrative: 58-year-old female 1-2 days of generalized abdominal discomfort that now seems to be focused in the right lower quadrant. Low-grade fevers up to 100.3, she is 99.5 here, some nausea no vomiting, poor appetite and a couple bouts of some diarrhea no blood. No melena. History of cholecystectomy and a partial nephrectomy due to a mass that was thought to potentially be cancer, she states it ended up being benign. None of the surgeries were recent. Denies any urinary symptoms, and states this distinctly feels different than a UTI she had in the past. She had some back pain earlier but none now. [facility] Medical History Iron deficiency Thrombocytosis Leukocytosis Post-menopausal Depression Anxiety Thyroid disease Low iron Injury of back Gastric reflux Non-smoker History of stress test Hypertension Vaginal candidiasis Acute maxillary sinusitis, unspecified Shoulder pain Back pain Malignant tumor of kidney Thyroid disease Knee pain Severe headache Stomach ulcer Cancer Bladder distention Interstitial cystitis Pre-diabetes Essential thrombocythemia Home Medications ???Medication ???Instructions ???Recorded ???Last Taken ???Type buspirone 5 mg tablet 15 mg PO BID ANXIETY 08/28/15 01/15/19 History mirabegron 25 mg tablet,extended 50 mg PO 1400 BLADDER 05/31/18 01/15/19 History release 24 hr L.acidoph, paracasei,B. lactis 10 1 ea PO DAILY [facility] 01/16/19 01/16/19 History billion cell capsule bupropion HCl 150 mg tablet,12 hr 300 mg PO 1400 DEPRESSION 02/19/19 Unknown History sustained-release aspirin 81 mg tablet,delayed 81 mg PO DAILY 07/04/19 02/10/21 History release d-mannose 1 ea PO DAILY 02/28/20 Unknown History methenamine 120 mg-methyl.blue 1 tab PO PRN PRN Bladder Spasms 02/15/21 Unknown History 10.8 mg-sod phos-phenyl benja-hyos tablet doxepin 10 mg capsule 10 mg PO QHS 12/03/21 Unknown History levothyroxine 150 mcg tablet 150 mcg PO DAILY 12/03/21 Unknown History levothyroxine 25 mcg tablet 150 mcg PO DAILY THYROID 12/03/21 Unknown History omeprazole 40 mg capsule,delayed 40 mg PO DAILY 12/03/21 Unknown History release cyclobenzaprine 10 mg tablet 10 mg PO TID PRN Muscle Spasm #15 01/28/23 Unknown Rx TABLETS hydrocodone-acetaminophen 5-325mg 1 tab PO Q6H PRN PRN Pain 3 days 01/28/23 Unknown Rx 5mg-325mg #10 TABLETS hydroxyzine HCl 25 mg tablet 25 mg PO Q6H PRN itching #20 tabs 09/09/23 Unknown Rx ondansetron 4 mg disintegrating 8 mg (2 x 4 mg) PO Q8H PRN PRN 01/11/24 Unknown Rx tablet Nausea #15 tabs Allergy/AdvReac Type Severity Reaction Status Date / Time ketorolac tromethamine (From Allergy Severe Hives Verified 12/09/23 16:56 Toradol) solifenacin succinate (From Allergy Severe Hives Verified 12/09/23 16:56 Vesicare) erythromycin base AdvReac Severe Nausea/Vom/ Verified 12/09/23 16:56 (Erythromycin Base) Diarrhea celecoxib (From Celebrex) AdvReac Intermediate Nausea/Vom/ Verified 12/09/23 16:56 Diarrhea lisinopril AdvReac Mild Vomiting Verified 12/09/23 16:56 Family History Father Diabetes Heart disease Hypertension Grandmother Cancer Surgical History History of root canal procedure History of cholecystectomy partial kidney removed Social History number of children: 0 current occupational status: employed current occupation: [employer] Smoking Status: Never smoker alcohol intake: never substance use type: does not use seatbelt use: sometimes do you feel safe at home: Yes additional social history: single ROS ROS ED Constitutional Constitutional ED: Reports anorexia and fever(s); Denies chills Eyes Eyes: Denies change in vision or diplopia ENT ENT ED: Denies rhinorrhea or sore throat Cardiovascular Cardiovascular: Denies chest pain or palpitations Respiratory/Chest Respiratory/Chest: Denies cough or dyspnea Gastrointestinal Gastrointestinal: Reports abdominal pain, diarrhea and nausea; Denies hematochezia, melena or vomiting Genitourinary Genitourinary ED: Denies dysuria or hematuria Musculoskeletal Musculoskeletal: Denies back pain or neck pain Integumentary Denies absc (more content not included)... Normal [facility] Emergency Department Summary on 12-09-2023 Emergency Department Summary [facility] Medical Records Department [address] [place] [address] Emergency Department Summary 12/09/23 MR#: [id number] Acct: [id number] Name: PAYTON MCQUEEN Rep #: [id number] : 1965 58 From: Timothy Quinteros DO PCP: Dr. Sue Weber MD Status:REG ER Location: ED HPI History of Present Illness Chief Complaint: Allergic Reaction Narrative Narrative: 58-year-old female presenting with allergy symptoms. She states that she has been having intermittent rashes. She states she followed up with dermatology and they told her that she will have allergy testing next week. Patient states that her rash is improving today after taking Benadryl and Zyrtec but she still very itchy. She states that her felt like it was swollen earlier but its improved after Benadryl. No shortness of breath or abdominal pain. [facility] Medical History Iron deficiency Thrombocytosis Leukocytosis Post-menopausal Depression Anxiety Thyroid disease Low iron Injury of back Gastric reflux Non-smoker History of stress test Hypertension Vaginal candidiasis Acute maxillary sinusitis, unspecified Shoulder pain Back pain Malignant tumor of kidney Thyroid disease Knee pain Severe headache Stomach ulcer Cancer Bladder distention Interstitial cystitis Pre-diabetes Essential thrombocythemia Home Medications ???Medication ???Instructions ???Recorded ???Last Taken ???Type buspirone 5 mg tablet 15 mg PO BID ANXIETY 08/28/15 01/15/19 History mirabegron 25 mg tablet,extended 50 mg PO 1400 BLADDER 05/31/18 01/15/19 History release 24 hr L.acidoph, paracasei,B. lactis 10 1 ea PO DAILY [facility] 01/16/19 01/16/19 History billion cell capsule bupropion HCl 150 mg tablet,12 hr 300 mg PO 1400 DEPRESSION 02/19/19 Unknown History sustained-release aspirin 81 mg tablet,delayed 81 mg PO DAILY 07/04/19 02/10/21 History release d-mannose 1 ea PO DAILY 02/28/20 Unknown History methenamine 120 mg-methyl.blue 1 tab PO PRN PRN Bladder Spasms 02/15/21 Unknown History 10.8 mg-sod phos-phenyl benja-hyos tablet buspirone 15 mg tablet 15 mg PO BID 12/03/21 Unknown History doxepin 10 mg capsule 10 mg PO QHS 12/03/21 Unknown History levothyroxine 150 mcg tablet 150 mcg PO DAILY 12/03/21 Unknown History levothyroxine 25 mcg tablet 150 mcg PO DAILY THYROID 12/03/21 Unknown History omeprazole 40 mg capsule,delayed 40 mg PO DAILY 12/03/21 Unknown History release ondansetron 4 mg disintegrating 4 mg PO Q8H PRN PRN Nausea #10 tabs 01/16/23 Unknown Rx tablet cyclobenzaprine 10 mg tablet 10 mg PO TID PRN Muscle Spasm #15 01/28/23 Unknown Rx TABLETS hydrocodone-acetaminophen 5-325mg 1 tab PO Q6H PRN PRN Pain 3 days 01/28/23 Unknown Rx 5mg-325mg #10 TABLETS hydroxyzine HCl 25 mg tablet 25 mg PO Q6H PRN itching #20 tabs 09/09/23 Unknown Rx Allergy/AdvReac Type Severity Reaction Status Date / Time ketorolac tromethamine (From Allergy Severe Hives Verified 12/09/23 16:56 Toradol) solifenacin succinate (From Allergy Severe Hives Verified 12/09/23 16:56 Vesicare) erythromycin base AdvReac Severe Nausea/Vom/ Verified 12/09/23 16:56 (Erythromycin Base) Diarrhea celecoxib (From Celebrex) AdvReac Intermediate Nausea/Vom/ Verified 12/09/23 16:56 Diarrhea lisinopril AdvReac Mild Vomiting Verified 12/09/23 16:56 Family History Father Diabetes Heart disease Hypertension Grandmother Cancer Surgical History History of root canal procedure History of cholecystectomy partial kidney removed Social History number of children: 0 current occupational status: employed current occupation: [employer] Smoking Status: Never smoker alcohol intake: never substance use type: does not use seatbelt use: sometimes do you feel safe at home: Yes additional social history: single ROS ROS ED Constitutional Constitutional ED: Denies chills, fever(s) or sweats Eyes Eyes: Denies blurry vision or change in vision ENT ENT ED: Denies ear pain or sore throat Cardiovascular Cardiovascular: Denies chest pain, palpitations or racing heartbeat Respiratory/Chest Respiratory/Chest: Denies cough, dyspnea or sputum Gastrointestinal Gastrointestinal: Denies abdominal pain, constipation, diarrhea, nausea or vomiting Genitourinary Genitourinary ED: Denies dysuria, hematuria or urinary frequency Musculoskeletal Musculoskeletal: Denies arthralgias, myalgias or neck pain Integumentary Reports rash and other Details: Right is ; Denies abscess or Abrasions Neurologic Neurologic: Denies head (more content not included)... Normal [facility] 12-04-2023 [facility] Telephone (ERICKAimpokPARESH) PAYTON MCQUEEN ([id number]) 1965 F Date Time Provider Department 12/04/23 SUE WEBER [facility] During your visit today, we recorded the following information about you: Belinda Johnson LPN 12/04/2023 11:02 AM Signed Patient calling she is taking an antibiotic for UTI symptoms has one dose Cephalexin left. Now she is having yeast infection issues, rash and vaginal discharge, asking for a Diflucan rx to be sent to [facility]'s pharmacy. Pending rx if wanted. Please advise Jerica Chaudhari APRN.CLERICAL SUPERVISOR 12/04/2023 12:44 PM Signed The following approved medication requests have been transmitted electronically. Requested Prescriptions Signed Prescriptions Disp Refills fluconazole (DIFLUCAN) 150 mg tablet 2 tablet 0 Sig: Take 1 tablet by mouth one time only for 1 dose. Repeat in 3 days as needed. Authorizing Provider: JERICA CHAUDHARI APRN.Andreina Nixon MA 12/04/2023 12:56 PM Signed Notified via eXpresso. Andreina Caicedo MA Allergies As of Date: 12/04/2023 Noted Allergy Reaction CELEBREX (CELECOXIB) 05/28/2005 Comments: upsets stomach after prolonged use ie. 6 weeks ERYTHROMYCIN 02/05/2005 8 - GI Upset LISINOPRIL 01/23/2018 16 - Unknown Comments: Cough, hypotension METFORMIN 02/03/2019 8 - GI Upset MOBIC (MELOXICAM) 01/15/2023 11 - Vomiting PROCHLORPERAZINE 09/29/2016 1 - Mental Status Change Comments: Agitation, felt ill TORADOL (KETOROLAC) 01/15/2015 11 - Vomiting VESICARE (SOLIFENACIN) 11/20/2009 2 - Rash Date Reviewed: 11/27/2023 Reviewed by: Hang Parker APRN.CLERICAL SUPERVISOR - Fully Assessed Reason for Visit: Medication Request [138] Primary Visit Diagnosis:Vaginal yeast infection [B37.31] Order(s):fluconazole (DIFLUCAN) 150 mg tabletTake 1 tablet by mouth one time only for 1 dose. Repeat in 3 days as needed.Disp: 2 tabletRfl: 0 Prescriptions as of 12/04/2023 - fluconazole (DIFLUCAN) 150 mg tablet Take 1 tablet by mouth one time only for 1 dose. Repeat in 3 days as needed. - cephALEXin (KEFLEX) 500 mg capsule Take 1 capsule by mouth two times a day for 7 days. - fexofenadine (KATIA ALLERGY) 180 mg tablet Take 1 tablet by mouth once daily. - ALPRAZolam (XANAX) 0.25 mg tablet Take 1 tablet by mouth once daily as needed for up to 90 days. - omeprazole (PRILOSEC) 40 mg capsule Take 1 capsule by mouth once daily. - cetirizine (ZYRTEC) 10 mg tablet Take 1 tablet by mouth once daily. - levothyroxine (SYNTHROID) 150 mcg tablet Take 1 tablet by mouth daily before breakfast. - ondansetron (ZOFRAN) 8 mg tablet Take 1 tablet by mouth every 8 hours as needed. - busPIRone (BUSPAR) 15 mg tablet Take 1 tablet by mouth three times daily. - methenam/sod phos/mblue/hyoscy (UROGESIC-BLUE ORAL) Take 1 capsule by mouth once daily. - buPROPion XL (WELLBUTRIN XL) 300 mg 24 hr tablet Take 1 tablet by mouth once daily. - mirabegron (MYRBETRIQ) 50 mg Tb24 Take 1 tablet by mouth once daily. - SACCHAROMYCES BOULARDII (PROBIOTIC, S.BOULARDII, ORAL) Take by mouth once daily. Meds Comments as of 09/26/2022: Was given Hewitt at [facility] ED visit Problem List As Of Date 12/04/2023 Noted Resolved Lumbago [M54.50] 02/06/2005 03/26/2016 Hypothyroidism [E03.9] Greater Trochanteric bursitis right [M76.899] 05/28/2005 03/26/2016 Sciatica [M54.30] 06/13/2005 03/26/2016 GENERALIZED ANXIETY DIS [F41.1] 06/11/2006 ESOPHAGEAL REFLUX [K21.9] 08/04/2006 Acute gastritis without mention of hemorrhage [*04/09/2007 03/26/2016 ADJUSTMENT DISORDER WITH DEPRESSED MOOD [F43.21]01/28/2008 BENIGN HYPERTENSION [I10] 03/17/2008 Contusion of chest wall [S20.219A] 06/09/2008 03/26/2016 Thoracic or lumbosacral neuritis or radiculitis*09/19/2008 03/26/2016 Cluster headache syndrome [G44.009] 04/07/2009 03/26/2016 Pelvic pain in female [R10.2] 04/25/2009 03/26/2016 Chronic interstitial cystitis [N30.10] 05/14/2009 Cervical radiculopathy [M54.12] 01/11/2010 03/26/2016 Brachial neuritis or radiculitis NOS [M54.12] 02/04/2010 03/26/2016 Cervical disc disorder with radiculopathy [M50.*02/18/2010 03/26/2016 Impaired glucose tolerance [R73.02] 04/02/2010 Lumbar disc disease with radiculopathy [M51.16] 11/15/2010 03/26/2016 Piriformis syndrome [G57.00] 01/20/2011 03/26/2016 Nonallopathic lesion of sacral region, not else*02/10/2011 03/26/2016 Avascular necrosis of hip [M87.059] 04/15/2011 SI (sacroiliac) joint dysfunction [M53.3] 06/04/2011 03/26/2016 Obesity, Class III, BMI 40-49.9 (morbid obesity*10/01/2011 Lumbar facet arthropathy (HCC) [M47.816] 10/17/2011 03/26/2016 Lumbar spondylosis [M47.816] 10/17/2011 03/26/2016 Left shoulder strain [S46.912A] 10/29/2012 10/19/2014 Left renal mass [N28.89] 06/16/2013 03/26/2016 Thoracolumbar back pain [M54.50, M54.6] 07/20/2013 03/26/2016 Unspecified gastritis and gastroduodenitis with*09/15/2013 03/26/2016 Right si (more content not included)... [facility] PAYTON [facility]QUE[facility] ([id number]) 1965 F Date Time Provider Department 11/29/23 HANG PARKER [facility] During your visit today, we recorded the following information about you: Hang Parker APRN.BUD 11/29/2023 8:15 AM Signed Please inform patient that no significant bacterial infection were noted on urine culture. May continue antibiotic as symptoms are improving. Follow-up with PCP if symptoms are not. Hnag Parker APRN.Yusra Kirby MA 11/29/2023 8:23 AM Signed Pt was notified of the results. Pt verbalized understanding. Yusra Szymanski MA Allergies As of Date: 11/29/2023 Noted Allergy Reaction CELEBREX (CELECOXIB) 05/28/2005 Comments: upsets stomach after prolonged use ie. 6 weeks ERYTHROMYCIN 02/05/2005 8 - GI Upset LISINOPRIL 01/23/2018 16 - Unknown Comments: Cough, hypotension METFORMIN 02/03/2019 8 - GI Upset MOBIC (MELOXICAM) 01/15/2023 11 - Vomiting PROCHLORPERAZINE 09/29/2016 1 - Mental Status Change Comments: Agitation, felt ill TORADOL (KETOROLAC) 01/15/2015 11 - Vomiting VESICARE (SOLIFENACIN) 11/20/2009 2 - Rash Date Reviewed: 11/27/2023 Reviewed by: Hang Parker APRN.CLERICAL SUPERVISOR - Fully Assessed Reason for Visit: Results [95] Prescriptions as of 11/29/2023 - cephALEXin (KEFLEX) 500 mg capsule Take 1 capsule by mouth two times a day for 7 days. - fexofenadine (KATIA ALLERGY) 180 mg tablet Take 1 tablet by mouth once daily. - ALPRAZolam (XANAX) 0.25 mg tablet Take 1 tablet by mouth once daily as needed for up to 90 days. - omeprazole (PRILOSEC) 40 mg capsule Take 1 capsule by mouth once daily. - cetirizine (ZYRTEC) 10 mg tablet Take 1 tablet by mouth once daily. - levothyroxine (SYNTHROID) 150 mcg tablet Take 1 tablet by mouth daily before breakfast. - ondansetron (ZOFRAN) 8 mg tablet Take 1 tablet by mouth every 8 hours as needed. - busPIRone (BUSPAR) 15 mg tablet Take 1 tablet by mouth three times daily. - methenam/sod phos/mblue/hyoscy (UROGESIC-BLUE ORAL) Take 1 capsule by mouth once daily. - buPROPion XL (WELLBUTRIN XL) 300 mg 24 hr tablet Take 1 tablet by mouth once daily. - mirabegron (MYRBETRIQ) 50 mg Tb24 Take 1 tablet by mouth once daily. - SACCHAROMYCES BOULARDII (PROBIOTIC, S.BOULARDII, ORAL) Take by mouth once daily. Meds Comments as of 09/26/2022: Was given Hewitt at [facility] ED visit Problem List As Of Date 11/29/2023 Noted Resolved Lumbago [M54.50] 02/06/2005 03/26/2016 Hypothyroidism [E03.9] Greater Trochanteric bursitis right [M76.899] 05/28/2005 03/26/2016 Sciatica [M54.30] 06/13/2005 03/26/2016 GENERALIZED ANXIETY DIS [F41.1] 06/11/2006 ESOPHAGEAL REFLUX [K21.9] 08/04/2006 Acute gastritis without mention of hemorrhage [*04/09/2007 03/26/2016 ADJUSTMENT DISORDER WITH DEPRESSED MOOD [F43.21]01/28/2008 BENIGN HYPERTENSION [I10] 03/17/2008 Contusion of chest wall [S20.219A] 06/09/2008 03/26/2016 Thoracic or lumbosacral neuritis or radiculitis*09/19/2008 03/26/2016 Cluster headache syndrome [G44.009] 04/07/2009 03/26/2016 Pelvic pain in female [R10.2] 04/25/2009 03/26/2016 Chronic interstitial cystitis [N30.10] 05/14/2009 Cervical radiculopathy [M54.12] 01/11/2010 03/26/2016 Brachial neuritis or radiculitis NOS [M54.12] 02/04/2010 03/26/2016 Cervical disc disorder with radiculopathy [M50.*02/18/2010 03/26/2016 Impaired glucose tolerance [R73.02] 04/02/2010 Lumbar disc disease with radiculopathy [M51.16] 11/15/2010 03/26/2016 Piriformis syndrome [G57.00] 01/20/2011 03/26/2016 Nonallopathic lesion of sacral region, not else*02/10/2011 03/26/2016 Avascular necrosis of hip [M87.059] 04/15/2011 SI (sacroiliac) joint dysfunction [M53.3] 06/04/2011 03/26/2016 Obesity, Class III, BMI 40-49.9 (morbid obesity*10/01/2011 Lumbar facet arthropathy (HCC) [M47.816] 10/17/2011 03/26/2016 Lumbar spondylosis [M47.816] 10/17/2011 03/26/2016 Left shoulder strain [S46.912A] 10/29/2012 10/19/2014 Left renal mass [N28.89] 06/16/2013 03/26/2016 Thoracolumbar back pain [M54.50, M54.6] 07/20/2013 03/26/2016 Unspecified gastritis and gastroduodenitis with*09/15/2013 03/26/2016 Right sided abdominal pain [R10.9] 01/19/2015 03/26/2016 Strain of right knee and leg [S86.911A] 02/06/2016 03/26/2016 Overactive bladder [N32.81] 02/06/2016 Essential thrombocythemia (HCC) [D47.3] 06/02/2016 Leukocytosis [D72.829] 06/02/2016 Primary cancer of left kidney (HCC) [C64.2] 08/08/2016 06/04/2018 Popliteal cyst, right [M71.21] 05/01/2017 Acute lumbar myofascial strain [S39.012A] 03/15/2018 Renal oncocytoma, 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 Normal [facility] Bacteria Ur Culton 4 Bacteria identified Cx Nom (U) ORGANISM ID: 1 10,000 -<50,000 CFU/ml Normal urogenital bernabe Normal [facility] Comment on above: Performed By: #### 6 30-4 ####[facility] LABCLIA [id number] [address] [place] CNOVon 11-27-2023 CNOV Office Visit ([facility] ) PAYTON MCQUEEN ([id number]) 1965 F Date Time Provider Department 11/27/23 7:30 PM HANG PARKER [facility] During your visit today, we recorded the following information about you: Temperature Pulse Respiration Blood pressure 97.5 degrees 86/minute 18/minute 168/82 Weight 107 kg Hang Parker APRN.CLERICAL SUPERVISOR 11/27/2023 7:52 PM Signed Subjective HPI Nontoxic-appearing female presents urgent care chief complaint possible UTI. Duration of symptoms 3 days. Associated symptoms dysuria frequency urgency. History of UTIs. This feels similar. Did use uroflow yesterday. This did help. History of frequent UTIs. Has not had 1 since April. Sees urology for interstitial cystitis. Additionally has sinus pressure runny nose fatigue. These symptoms started yesterday. Have worsened. States felt a little achy today. Does not know if she is sick or if this is her allergies. Denies any fevers productive cough chest pain shortness of breath pleuritic pain hemoptysis nausea vomiting or rashes. Past medical history prescription medications allergies reviewed. .Patient presents with: Urinary Problem: Frequency,urgency, burning. Low grade x 3 days Sinus Problem: Nasals congestion, runny nose, sinus pessurex 1 days PAST MEDICAL HISTORY Diagnosis Date Acute gastritis without mention of hemorrhage Anxiety Benign neoplasm of stomach Cervical disc disorder with radiculopathy 02/18/2010 Cyst of ovary 01/01/2015 [facility] - see scanned documents Depressive disorder, not elsewhere classified Essential thrombocythemia (HCC) 06/02/2016 GERD (gastroesophageal reflux disease) Hypertension 08/28/11 IC (interstitial cystitis) Impaired fasting glucose 04/02/2010 Lumbar disc disease with radiculopathy 11/15/2010 Metabolic syndrome X Morbid obesity with BMI of 40.0-44.9, adult (HCC) 08/29/2013 Renal cyst, left 07/03/2016 18 mm, 06/18/16 Sciatica SI (sacroiliac) joint dysfunction 06/04/2011 Thoracolumbar back pain 07/20/2013 Unspecified hypothyroidism Urinary calculus, unspecified Renal stones PAST SURGICAL HISTORY Procedure Laterality Date CHOLECYSTECTOMY 1991 Cholecystectomy CYSTOSCOPY,DIL BLADDER,LOCAL ANESTH 01/18/14 EGD TRANSORAL BIOPSY SINGLE/MULTIPLE 04/09/2007 gastritis, gastric polyps KIDNEY SURGERY HX 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 Valadez PAST SURGICAL HISTORY OF WISDOM TEETH EXTRACTIONS PAST SURGICAL HISTORY OF 05/2012 bladder hydrodistension X 2 PAST SURGICAL HISTORY OF 2014 pain injection lumbar- multiple PAST SURGICAL HISTORY OF Cyst removed from head ALLERGIES Celebrex [Celecoxib], Erythromycin, Lisinopril, Metformin, Mobic [Meloxicam], Prochlorperazine, Toradol [Ketorolac], and Vesicare [Solifenacin] MEDICATIONS fexofenadine (KATIA ALLERGY) 180 mg tablet Take 1 tablet by mouth once daily. ALPRAZolam (XANAX) 0.25 mg tablet Take 1 tablet by mouth once daily as needed for up to 90 days. omeprazole (PRILOSEC) 40 mg capsule Take 1 capsule by mouth once daily. cetirizine (ZYRTEC) 10 mg tablet Take 1 tablet by mouth once daily. levothyroxine (SYNTHROID) 150 mcg tablet Take 1 tablet by mouth daily before breakfast. ondansetron (ZOFRAN) 8 mg tablet Take 1 tablet by mouth every 8 hours as needed. busPIRone (BUSPAR) 15 mg tablet Take 1 tablet by mouth three times daily. methenam/sod phos/mblue/hyoscy (UROGESIC-BLUE ORAL) Take 1 capsule by mouth once daily. buPROPion XL (WELLBUTRIN XL) 300 mg 24 hr tablet Take 1 tablet by mouth once daily. mirabegron (MYRBETRIQ) 50 mg Tb24 Take 1 tablet by mouth once daily. SACCHAROMYCES BOULARDII (PROBIOTIC, S.BOULARDII, ORAL) Take by mouth once daily. FAMILY HISTORY Problem Relation Age of Onset Diabetes Father Hypertension Father Cancer Maternal Grandmother Lymphoma Heart Maternal Grandfather hypertension Hypertension Brother Social History Tobacco Use Smoking status: Never Smokeless tobacco: Never Vaping Use Vaping Use: Never used Substance Use Topics Alcohol use: Yes Comment: rarely Drug use: No BP 168/82 Pulse 86 Temp 36.4 ?C (97.5 ?F) Resp 18 Wt 107 kg (235 lb 14.3 oz) LMP 05/09/2018 (Approximate) SpO2 98% BMI 41.79 kg/m? Review of Systems Constitutional: Positive for malaise/fatigue. Negative for chills and fever. HENT: Positive for congestion and sinus pain. Negative for ear discharge, ear pain and sore throat. Eyes: Negative for blurred vision, pain, discharge and redness. Respiratory: Negative for cough, hemoptysis, sputum production, shortness of breath, wheezing and stridor. Cardiovascular: Negative for chest pain. Gastrointestinal: Negative for abdominal pain, diarrhea, nausea and vomiting. Genitourinary: Positive for dysuria, frequency and urgency. Negative for flank pain and hematuria. Musculoskeletal: Positive for myalgia (more content not included)... Normal [facility] COVID AND INFLUENZA A/B AND RSV NAAT, ROUTINEon 11-27-2023 SARS-CoV-2 (COVID-19) RNA LEILANI+probe Ql (Unsp spec) COVID 19 RESULT: Not detected The method used is RT-PCR or an equivalent NAAT method. Reference Range (the expected result in uninfected individuals): Not detected INFLUENZA A PCR: Not detected INFLUENZA B PCR: Not detected RSV PCR: Not detected Normal [facility] Comment on above: Performed By: #### C VFS ####[facility] LABCLIA [id number] [place] [address] [place] UA DIP, URINE (POC)on 2023 BILIRUBIN UA (POCT) Negative Negative [facility] CLARITY UA (POCT) Clear [facility] COLOR UA (POCT) Blue [facility] GLUCOSE UA (POCT) Negative Negative mg/dL [facility] Hemoglobin Ql (U) Negative Negative [facility] Interpretation and review of laboratory results Abnormal [facility] KETONE UA (POCT) Negative Negative mg/dL [facility] LEUKOCYTES UA (POCT) Negative Negative [facility] NITRITE UA (POCT) Negative Negative [facility] PH UA (POCT) 5.5 4.5 - 8.0 [facility] Protein Ql (U) Negative Negative mg/dL [facility] SPECIFIC GRAVITY UA (POCT) <=1.005 Abnormal 1.005 - 1.030 [facility] UROBILINOGEN UA (POCT) 0.2 Normal E.U./dL [facility] Location:[facility], [address], [place], [address] [facility] CNOVon 11-19-2023 CNOV Office Visit (FAMPWS ) PAYTON MCQUEEN ([id number]) 1965 F Date Time Provider Department 11/19/23 1:20 PM SUE WEBER [facility] During your visit today, we recorded the following information about you: Pulse Respiration Blood pressure Weight 80/minute 18/minute 140/92 108.1 kg Sue Weber MD 11/19/2023 1:51 PM Signed Chief Complaint Patient presents with: F/U 1 month HPI Payton Flores Richar is a 58 year old female who presents here today for follow up. 1 month follow up on labs and anxiety. Overall reports that everything has improved about 60-70%. Doing some home updates, no vacations planned. Currently on summer break from the [employer]. SHEYLA: Pt was starting counseling last visit and that we would hold off on adding SSRI. Met with an old colleague of hers who used to work in Counseling. They used to work together in a [facility]. They talked and she gave her some advice on some strategies to help manage anxiety better. She was advised not to increase her Xanax usage, currently taking Xanax 0.25 mg once daily faithfully along with Wellbutrin xl 300 mg once daily and Buspar 15 mg 1 pill TID. Sleep - Reports her sleep is off schedule again, trying to do more activity to make her tired. Is staying up later and later. Doesn't want to depend on a sleep aid. Trying to avoid/decrease caffeine or do activities through out the day to make he tired. Had elevated Alkaline phosphatase levels and LFTs. Was to have repeat labs in 1 month. Slight decrease in labs but still elevated. Derm - Recurring rash (fungal rash). Is following with Dermatology and has been told that there's rashes that have occurred after having Covid. Pt is taking Cetirizine 10 mg once daily which does seem to help. Pt states she was doing better, until she fell down recently when she was outside watering her plants. Got tripped up in the hose and her dog was outside. Fell backwards, hitting her tailbone. Still moving slow, but improving. Denies that she feels she broke anything. Still has a lot of soreness/pain in her tailbone. Pt states she's not avoiding doing a colonoscopy, but has not yet scheduled due to having multiple medical appt's. Past medical history, appointments, medications, allergies reviewed. Previous Medical History PAST MEDICAL HISTORY Diagnosis Date Acute gastritis without mention of hemorrhage Anxiety Benign neoplasm of stomach Cervical disc disorder with radiculopathy 02/18/2010 Cyst of ovary 01/01/2015 [facility] - see scanned documents Depressive disorder, not elsewhere classified Essential thrombocythemia (HCC) 06/02/2016 GERD (gastroesophageal reflux disease) Hypertension 08/28/11 IC (interstitial cystitis) Impaired fasting glucose 04/02/2010 Lumbar disc disease with radiculopathy 11/15/2010 Metabolic syndrome X Morbid obesity with BMI of 40.0-44.9, adult (HCC) 08/29/2013 Renal cyst, left 07/03/2016 18 mm, 06/18/16 Sciatica SI (sacroiliac) joint dysfunction 06/04/2011 Thoracolumbar back pain 07/20/2013 Unspecified hypothyroidism Urinary calculus, unspecified Renal stones Previous Surgical History PAST SURGICAL HISTORY Procedure Laterality Date CHOLECYSTECTOMY 1991 Cholecystectomy CYSTOSCOPY,DIL BLADDER,LOCAL ANESTH 01/18/14 EGD TRANSORAL BIOPSY SINGLE/MULTIPLE 04/09/2007 gastritis, gastric polyps KIDNEY SURGERY HX 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 6 weeks Erythromycin GI Upset Lisinopril Unknown Cough, hypotension Metformin GI Upset Mobic [Meloxicam] Vomiting Prochlorperazine Mental Status Change Agitation, felt ill Toradol [Ketorolac] Vomiting Vesicare [Solifenac* Rash Current Medications Current Outpatient Medications on File Prior to Visit Medication Sig fexofenadine (KATIA ALLERGY) 180 mg tablet Take 1 tablet by mouth once daily. ALPRAZolam (XANAX) 0.25 mg tablet Take 1 tablet by mouth once daily as needed for up to 90 days. omeprazole (PRILOSEC) 40 mg capsule Take 1 capsule by mouth once daily. cetirizine (ZYRTEC) 10 mg tablet Take 1 tablet by mouth once daily. levothyroxine (SYNTHROID) 150 mcg tablet Take 1 tablet by mouth daily before breakfast. ondansetron (ZOFRAN) 8 mg tablet Take 1 tablet by mouth every 8 hours as needed. busPIRone (BUSPAR) (more content not included)... Normal [facility] ALKALINE PHOSPHATASE ISOENZY MES (P)on 11-16-2023 ALK PHOS BONE % 41.9 % Normal 10.7-68.3 [facility] Comment on above: Order Comment: Speci men Type: BLOOD SPECIMENOrdering Facility: [facility] Address: [address] [place] [address] Performed By: #### A LKISOP ####[facility] LABCLIA [id number] [place] [address] [place] ALK PHOS LIVER % 45.7 % Normal 26.0-86.2 [facility] Comment on above: Order Comment: Speci men Type: BLOOD SPECIMENOrdering Facility: [facility] Address: [address] [place] [address] Performed By: #### A LKISOP ####[facility] LABCLIA [id number] [place] [address] [place] BONE FRACTION 75.0 U/L High 12.9-52.6 [facility] Comment on above: Order Comment: Speci men Type: BLOOD SPECIMENOrdering Facility: [facility] Address: [address] [place] [address] Performed By: #### A LKISOP ####[facility] LABCLIA [id number] [place] [address] [place] INTESTINE FRACTION 22.2 U/L High 0.0-16.3 [facility] Comment on above: Order Comment: Speci men Type: BLOOD SPECIMENOrdering Facility: [facility] Address: [address] [place] [address] Performed By: #### A LKISOP ####[facility] LABCLIA [id number] [place] [address] [place] LIVER FRACTION 81.8 U/L High 16.0-69.3 [facility] Comment on above: Order Comment: Speci men Type: BLOOD SPECIMENOrdering Facility: [facility] Address: [address] [place] [address] Performed By: #### A LKISOP ####[facility] LABIA [id number] [address] OF [place] Neutrophils/100 WBC (Bld) 12.4 % Normal 0.0-24.2 [facility] Comment on above: Order Comment: Speci men Type: BLOOD SPECIMENOrdering Facility: [facility] Address: [address] [place] [address] Performed By: #### A LKISOP ####[facility] LABCLIA [id number] [place] [address] [place] Hep Func 2000 Pnl SerPlon ALP [Catalytic activity/Vol] 179 U/L High 34-123 [facility] Comment on above: Order Comment: Speci men Type: BLOOD SPECIMENOrdering Facility: [facility] Address: [address] [place] [address] Performed By: #### 2 4325-3, 6768-6 ####[facility] LABIA [id number] [address] [place], [place] [address] [place] Hepatic function 2000 panelo n 11-16-2023 Albumin [Mass/Vol] 4.2 g/dL Normal 3.9-4.9 [facility] Comment on above: Order Comment: Speci men Type: BLOOD SPECIMENOrdering Facility: [facility] Address: [address] [place] [address] Performed By: #### 2 4325-3, 0568-6 ####[facility] LABCLIA [id number] [place] [address] [place] ALT [Catalytic activity/Vol] 21 U/L Normal 7-38 [facility] Comment on above: Order Comment: Speci men Type: BLOOD SPECIMENOrdering Facility: [facility] Address: [address] [place] [address] Performed By: #### 2 4325-3, 0968-6 ####[facility] LABCLIA [id number] [place] [address] [place] AST [Catalytic activity/Vol] 34 U/L Normal 13-35 [facility] Comment on above: Order Comment: Speci men Type: BLOOD SPECIMENOrdering Facility: [facility] Address: [address] [place] [address] Performed By: #### 2 4325-3, 7929-6 ####[facility] LABCLIA [id number] [place] [address] [place] Bilirubin [Mass/Vol] 0.7 mg/dL Normal 0.2-1.3 [facility] Comment on above: Order Comment: Speci men Type: BLOOD SPECIMENOrdering Facility: [facility] Address: [address] [place] [address] Performed By: #### 2 4325-3, 5331-6 ####[facility] LABCLIA [id number] [place] [address] [place] Bilirubin.conjugated [Mass/Vol] 0.3 mg/dL High <0.2 [facility] Comment on above: Order Comment: Speci men Type: BLOOD SPECIMENOrdering Facility: [facility] Address: [address] [place], [place] [address] Performed By: #### 2 4325-3, 6768-6 ####[facility] LABCLIA [id number] [address] [address] [place] Protein [Mass/Vol] 6.5 g/dL Normal 6.3-8.0 [facility] Comment on above: Order Comment: Speci men Type: BLOOD SPECIMENOrdering Facility: [facility] Address: [address] [place] [address] Performed By: #### 2 4325-3, 6768-6 ####[facility] LABCLIA [id number] [place] [id number] [place] Emergency Department Summary on 09-29-2023 Emergency Department Summary [facility] Medical Records Department [address] [place] [address] Emergency Department Summary 09/29/23 MR#: [id number] Acct: [id number] Name: PAYTON MCQUEEN Rep #: [id number] : 1965 58 From: Yefri Gutierrez MD PCP: Dr. Sue Weber MD Status:PRE ER Location: ED HPI History of Present Illness Chief Complaint: Allergic Reaction Informant: patient Narrative Narrative: Patient presents not being able to sleep because she is feeling hot and itchy and burning everywhere in her body. It is worst in her face and scalp, and in her groin. She has been getting welts/hives. This episodes been going on for 4 to 5 days. These are the same symptoms she had a few weeks ago after breaking out and receiving steroids which really helped calm everything down. Has been using Benadryl off-and-on it helped a little but not as much as she would have hoped. It does help the red splotches go away. She denies any dyspnea, lightheadedness, near-syncope or syncope. No extremity edema. [facility] Medical History Acute maxillary sinusitis, unspecified Anxiety Back pain Bladder distention Cancer Depression Essential thrombocythemia Gastric reflux History of stress test Hypertension Injury of back Interstitial cystitis Iron deficiency Knee pain Leukocytosis Low iron Malignant tumor of kidney Non-smoker Post-menopausal Pre-diabetes Severe headache Shoulder pain Stomach ulcer Thrombocytosis Thyroid disease Thyroid disease Vaginal candidiasis Home Medications buspirone 5 mg tablet 15 mg PO BID ANXIETY 08/28/15 [History Last Taken 01/15/19] mirabegron 25 mg tablet,extended release 24 hr 50 mg PO 1400 BLADDER 05/31/18 [History Last Taken 01/15/19] L.acidoph, paracasei,B. lactis 10 billion cell capsule 1 ea PO DAILY [facility] 01/16/19 [History Last Taken 01/16/19] bupropion HCl 150 mg tablet,12 hr sustained-release 300 mg PO 1400 DEPRESSION 02/19/19 [History Last Taken Unknown] aspirin 81 mg tablet,delayed release 81 mg PO DAILY 07/04/19 [History Last Taken 02/10/21] d-mannose 1 ea PO DAILY 02/28/20 [History Last Taken Unknown] methenamine 120 mg-methyl.blue 10.8 mg-sod phos-phenyl benja-hyos tablet 1 tab PO PRN PRN Bladder Spasms 02/15/21 [History Last Taken Unknown] buspirone 15 mg tablet 15 mg PO BID 12/03/21 [History Last Taken Unknown] doxepin 10 mg capsule 10 mg PO QHS 12/03/21 [History Last Taken Unknown] levothyroxine 150 mcg tablet 150 mcg PO DAILY 12/03/21 [History Last Taken Unknown] levothyroxine 25 mcg tablet 150 mcg PO DAILY THYROID 12/03/21 [History Last Taken Unknown] omeprazole 40 mg capsule,delayed release 40 mg PO DAILY 12/03/21 [History Last Taken Unknown] ondansetron 4 mg disintegrating tablet 4 mg PO Q8H PRN PRN Nausea #10 tabs 01/16/23 [Rx Last Taken Unknown] cyclobenzaprine 10 mg tablet 10 mg PO TID PRN Muscle Spasm #15 TABLETS 01/28/23 [Rx Last Taken Unknown] hydrocodone-acetaminophen 5-325mg 5mg-325mg 1 tab PO Q6H PRN PRN Pain 3 days #10 TABLETS 01/28/23 [Rx Last Taken Unknown] hydroxyzine HCl 25 mg tablet 25 mg PO Q6H PRN itching #20 tabs 09/09/23 [Rx Last Taken Unknown] Allergy/AdvReac Type Severity Reaction Status Date / Time ketorolac tromethamine Allergy Severe Hives Verified 09/29/23 05:57 [From Toradol] solifenacin succinate Allergy Severe Hives Verified 09/29/23 05:57 [From Vesicare] erythromycin base AdvReac Severe Nausea/Vom/ Verified 09/29/23 05:57 [Erythromycin Base] Diarrhea celecoxib [From Celebrex] AdvReac Intermediate Nausea/Vom/ Verified 09/29/23 05:57 Diarrhea lisinopril AdvReac Mild Vomiting Verified 09/29/23 05:57 Family History Father Diabetes Heart disease Hypertension Grandmother Cancer Surgical History History of cholecystectomy History of root canal procedure partial kidney removed Social History number of children: 0 current occupational status: employed current occupation: [employer] Smoking Status: Never smoker alcohol intake: never substance use type: does not use seatbelt use: sometimes do you feel safe at home: Yes additional social history: single ROS ROS ED Constitutional Constitutional ED: Denies chills or fever(s) Eyes Eyes: Denies change in vision or diplopia ENT ENT ED: Denies rhinorrhea or sore throat Cardiovascular Cardiovascular: Denies chest pain or palpitations Respiratory/Chest Respiratory/Chest: Denies cough or dyspnea Gastrointestinal Gastrointestinal: Denies abdominal pain, diarrhea, nausea or vomiting Genitourinary Genitourinary ED: Denies dysuria or hematuria Musculoskeletal Musculoskeletal: De (more content not included)... Normal [facility] Appleon 09-28-2023 APPLE <0.[address] [facility] Comment on above: Performed By: #### L 5530.0169, L5530.1149, L5530.0649, L5530.1589, L5530.0929, L5530.1619, L5530.1509, L5530.0089, L5530.0039, L5530.0589, L5530.1389, L5530.0399, L5530.1049, L5530.1719, L5530.1339, L5530.0299, L5530.1669, L5530.1039, L5530.1649, L5530.1189, L5530.1009, L5530.0279 ####[facility] [address] [place], [place], [phone] Bananaon 09-28-2023 BANANA <0.[address] [facility] Comment on above: Performed By: #### L 5530.0169, L5530.1149, L5530.0649, L5530.1589, L5530.0929, L5530.1619, L5530.1509, L5530.0089, L5530.0039, L5530.0589, L5530.1389, L5530.0399, L5530.1049, L5530.1719, L5530.1339, L5530.0299, L5530.1669, L5530.1039, L5530.1649, L5530.1189, L5530.1009, L5530.0279 ####[facility] [address] [place], [place], [phone] Beefon 09-28-2023 BEEF <0.[address] [facility] Comment on above: Performed By: #### L 5530.0169, L5530.1149, L5530.0649, L5530.1589, L5530.0929, L5530.1619, L5530.1509, L5530.0089, L5530.0039, L5530.0589, L5530.1389, L5530.0399, L5530.1049, L5530.1719, L5530.1339, L5530.0299, L5530.1669, L5530.1039, L5530.1649, L5530.1189, L5530.1009, L5530.0279 ####[facility] [address] [place], [place], [phone] Carro[place] 09-28-2023 CARROT <0.[address] [facility] Comment on above: Performed By: #### L 5530.0169, L5530.1149, L5530.0649, L5530.1589, L5530.0929, L5530.1619, L5530.1509, L5530.0089, L5530.0039, L5530.0589, L5530.1389, L5530.0399, L5530.1049, L5530.1719, L5530.1339, L5530.0299, L5530.1669, L5530.1039, L5530.1649, L5530.1189, L5530.1009, L5530.0279 ####[facility] [address] [facility] [place], [place], [phone] [facility] 09-28-2023 CASHEW <0.[address] [facility] Comment on above: Performed By: #### L 5530.0169, L5530.1149, L5530.0649, L5530.1589, L5530.0929, L5530.1619, L5530.1509, L5530.0089, L5530.0039, L5530.0589, L5530.1389, L5530.0399, L5530.1049, L5530.1719, L5530.1339, L5530.0299, L5530.1669, L5530.1039, L5530.1649, L5530.1189, L5530.1009, L5530.0279 ####[facility] [address] [facility]. [place], [place], [phone] Chicken 09-28-2023 CHICKEN <0.[address] [facility] Comment on above: Performed By: #### L 5530.0169, L5530.1149, L5530.0649, L5530.1589, L5530.0929, L5530.1619, L5530.1509, L5530.0089, L5530.0039, L5530.0589, L5530.1389, L5530.0399, L5530.1049, L5530.1719, L5530.1339, L5530.0299, L5530.1669, L5530.1039, L5530.1649, L5530.1189, L5530.1009, L5530.0279 ####[facility] [address] [place], [place], [address] Egg, Wholeon 09-28-2023 EGG, WHOLE <0.[address] [facility] Comment on above: Performed By: #### L 5530.0169, L5530.1149, L5530.0649, L5530.1589, L5530.0929, L5530.1619, L5530.1509, L5530.0089, L5530.0039, L5530.0589, L5530.1389, L5530.0399, L5530.1049, L5530.1719, L5530.1339, L5530.0299, L5530.1669, L5530.1039, L5530.1649, L5530.1189, L5530.1009, L5530.0279 ####[facility] [address] [place], [place], [address] Glutenon 09-28-2023 GLUTEN <0.[address] [facility] Comment on above: Performed By: #### L 5530.0169, L5530.1149, L5530.0649, L5530.1589, L5530.0929, L5530.1619, L5530.1509, L5530.0089, L5530.0039, L5530.0589, L5530.1389, L5530.0399, L5530.1049, L5530.1719, L5530.1339, L5530.0299, L5530.1669, L5530.1039, L5530.1649, L5530.1189, L5530.1009, L5530.0279 ####[facility] [address] [place], [place], [phone] Milk, (Cow)on 09-28-2023 MILK (COW) <0.[address] [facility] Comment on above: Result Comment: Palak carrera of Specific IgE Class Description of Class ----- < 0.10 0 Negative 0.10 - 0.31 0/I Equivocal/Low 0.32 - 0.55 I Low 0.56 - 1.40 II Moderate 1.41 - 3.90 III High 3.91 - 19.00 IV Very High 19.01 - 100.00 V Very High >100.00 Very High Performed By: #### L 5530.0169, L5530.1149, L5530.0649, L5530.1589, L5530.0929, L5530.1619, L5530.1509, L5530.0089, L5530.0039, L5530.0589, L5530.1389, L5530.0399, L5530.1049, L5530.1719, L5530.1339, L5530.0299, L5530.1669, L5530.1039, L5530.1649, L5530.1189, L5530.1009, L5530.0279 ####[facility] [address] [facility] [place], [address] Oaton 09-28-2023 OAT <0.[address] [facility] Comment on above: Performed By: #### L 5530.0169, L5530.1149, L5530.0649, L5530.1589, L5530.0929, L5530.1619, L5530.1509, L5530.0089, L5530.0039, L5530.0589, L5530.1389, L5530.0399, L5530.1049, L5530.1719, L5530.1339, L5530.0299, L5530.1669, L5530.1039, L5530.1649, L5530.1189, L5530.1009, L5530.0279 ####[facility] [address] [facility] [place], [address] Onionon 09-28-2023 ONION <0.[address] [facility] Comment on above: Performed By: #### L 5530.0169, L5530.1149, L5530.0649, L5530.1589, L5530.0929, L5530.1619, L5530.1509, L5530.0089, L5530.0039, L5530.0589, L5530.1389, L5530.0399, L5530.1049, L5530.1719, L5530.1339, L5530.0299, L5530.1669, L5530.1039, L5530.1649, L5530.1189, L5530.1009, L5530.0279 ####[facility] [address] [facility] [address] [place], [place], [phone] [facility] 09-28-2023 ORANGE <0.[address] [facility] Comment on above: Performed By: #### L 5530.0169, L5530.1149, L5530.0649, L5530.1589, L5530.0929, L5530.1619, L5530.1509, L5530.0089, L5530.0039, L5530.0589, L5530.1389, L5530.0399, L5530.1049, L5530.1719, L5530.1339, L5530.0299, L5530.1669, L5530.1039, L5530.1649, L5530.1189, L5530.1009, L5530.0279 ####[facility] [address] [place], [place], [phone] [facility] 09-28-2023 PEA <0.[address] [facility] Comment on above: Performed By: #### L 5530.0169, L5530.1149, L5530.0649, L5530.1589, L5530.0929, L5530.1619, L5530.1509, L5530.0089, L5530.0039, L5530.0589, L5530.1389, L5530.0399, L5530.1049, L5530.1719, L5530.1339, L5530.0299, L5530.1669, L5530.1039, L5530.1649, L5530.1189, L5530.1009, L5530.0279 ####[facility] [address] [place], [place], [address] Pecanon 09-28-2023 PECAN <0.[address] [facility] Comment on above: Performed By: #### L 5530.0169, L5530.1149, L5530.0649, L5530.1589, L5530.0929, L5530.1619, L5530.1509, L5530.0089, L5530.0039, L5530.0589, L5530.1389, L5530.0399, L5530.1049, L5530.1719, L5530.1339, L5530.0299, L5530.1669, L5530.1039, L5530.1649, L5530.1189, L5530.1009, L5530.0279 ####[facility] [address] [place], [place], [phone] Potato, [facility] 09-28-2023 POTATO,OEV40997 <0.[address] [facility] Comment on above: Performed By: #### L 5530.0169, L5530.1149, L5530.0649, L5530.1589, L5530.0929, L5530.1619, L5530.1509, L5530.0089, L5530.0039, L5530.0589, L5530.1389, L5530.0399, L5530.1049, L5530.1719, L5530.1339, L5530.0299, L5530.1669, L5530.1039, L5530.1649, L5530.1189, L5530.1009, L5530.0279 ####[facility] [address] [place], [place], [phone] Riceon 05-06-2024 RICE <0.[address] [facility] Comment on above: Performed By: #### L 5530.0169, L5530.1149, L5530.0649, L5530.1589, L5530.0929, L5530.1619, L5530.1509, L5530.0089, L5530.0039, L5530.0589, L5530.1389, L5530.0399, L5530.1049, L5530.1719, L5530.1339, L5530.0299, L5530.1669, L5530.1039, L5530.1649, L5530.1189, L5530.1009, L5530.0279 ####[facility] [address] [place], [place], [id number] Strawberry 09-28-2023 STRAWBERRY <0.[address] [facility] Comment on above: Performed By: #### L 5530.0169, L5530.1149, L5530.0649, L5530.1589, L5530.0929, L5530.1619, L5530.1509, L5530.0089, L5530.0039, L5530.0589, L5530.1389, L5530.0399, L5530.1049, L5530.1719, L5530.1339, L5530.0299, L5530.1669, L5530.1039, L5530.1649, L5530.1189, L5530.1009, L5530.0279 ####[facility] [address] [place], [place], [phone] Tomatoon 09-28-2023 TOMATO <0.[address] [facility] Comment on above: Performed By: #### L 5530.0169, L5530.1149, L5530.0649, L5530.1589, L5530.0929, L5530.1619, L5530.1509, L5530.0089, L5530.0039, L5530.0589, L5530.1389, L5530.0399, L5530.1049, L5530.1719, L5530.1339, L5530.0299, L5530.1669, L5530.1039, L5530.1649, L5530.1189, L5530.1009, L5530.0279 ####[facility] [address] [place], [place], [phone] Turkeyon 09-28-2023 TURKEY <0.[address] [facility] Comment on above: Result Comment: Perf ormed at: - [facility] [id number] [place] Manager: Nataliya Ha MD, Phone: [phone] Performed By: #### L 5530.0169, L5530.1149, L5530.0649, L5530.1589, L5530.0929, L5530.1619, L5530.1509, L5530.0089, L5530.0039, L5530.0589, L5530.1389, L5530.0399, L5530.1049, L5530.1719, L5530.1339, L5530.0299, L5530.1669, L5530.1039, L5530.1649, L5530.1189, L5530.1009, L5530.0279 ####[facility] [address] [place], [place], [phone] Stover, (Food)on 09-28-2023 WALNUT,(Food) <0.[address] [facility] Comment on above: Performed By: #### L 5530.0169, L5530.1149, L5530.0649, L5530.1589, L5530.0929, L5530.1619, L5530.1509, L5530.0089, L5530.0039, L5530.0589, L5530.1389, L5530.0399, L5530.1049, L5530.1719, L5530.1339, L5530.0299, L5530.1669, L5530.1039, L5530.1649, L5530.1189, L5530.1009, L5530.0279 ####[facility] [address] [place], [place], [phone] [place] 09-28-2023 WHEAT <0.[address] [facility] Comment on above: Performed By: #### L 5530.0169, L5530.1149, L5530.0649, L5530.1589, L5530.0929, L5530.1619, L5530.1509, L5530.0089, L5530.0039, L5530.0589, L5530.1389, L5530.0399, L5530.1049, L5530.1719, L5530.1339, L5530.0299, L5530.1669, L5530.1039, L5530.1649, L5530.1189, L5530.1009, L5530.0279 ####[facility] [address] [place], [place], [id number] Yeaston 09-28-2023 Yeast LM Ql (Urine sed) <0.[address] [facility] Comment on above: Performed By: #### L 5530.0169, L5530.1149, L5530.0649, L5530.1589, L5530.0929, L5530.1619, L5530.1509, L5530.0089, L5530.0039, L5530.0589, L5530.1389, L5530.0399, L5530.1049, L5530.1719, L5530.1339, L5530.0299, L5530.1669, L5530.1039, L5530.1649, L5530.1189, L5530.1009, L5530.0279 ####[facility] [address] [place], [place], [address] Shrestha's yeast IgE serumOrde red By: Aris Rai on 09-21-2023 Shrestha's yeast IgE Qn (S) <0.10 kU/L Class 0 [facility] Pecan nut IgE serumOrdered B y: Aris Rai on 09-21-2023 Pecan or Guthrie Nut IgE Qn (S) <0.10 kU/L Class 0 [facility] Serum Ustilago avenae IgE an tibody assay (units/volume)Ordered By: Aris Rai on 09-21-2023 Oat smut IgE Qn (S) <0.10 kU/L Class 0 [facility] Serum apple IgE antibody ass ay (units/volume)Ordered By: Aris Rai on 09-21-2023 Apple IgE Qn (S) <0.10 kU/L Class 0 [facility] Serum banana IgE antibody as say (units/volume)Ordered By: Aris Rai on 09-21-2023 Banana IgE Qn (S) <0.10 kU/L Class 0 [facility] Serum beef IgE antibody assa y (units/volume)Ordered By: Aris Rai on 09-21-2023 Beef IgE Qn (S) <0.10 kU/L Class 0 [facility] Serum black walnut IgE antib andrea assay (units/volume)Ordered By: Aris Rai on 09-21-2023 Black St[place] IgE Qn (S) <0.10 kU/L Class 0 [facility] Serum carrot IgE antibody as say (units/volume)Ordered By: Aris Rai on 09-21-2023 Carrot IgE Qn (S) <0.10 kU/L Class 0 [facility] Serum cashew nut IgE antibod y assay (units/volume)Ordered By: Aris Rai on 09-21-2023 Cashew nut IgE Qn (S) <0.10 kU/L Class 0 [facility] Serum chicken IgE antibody a ssay (units/volume)Ordered By: Aris Rai on 09-21-2023 Chicken IgE Qn (S) <0.10 kU/L Class 0 [facility] Serum cow milk IgE antibody assay (units/volume)Ordered By: Aris Rai on 09-21-2023 Cow milk IgE Qn (S) <0.10 kU/L Class 0 [facility] Comment on above: Levels of Specific I gE Class Description of Class ----- < 0.10 0 Negative 0.10 - 0.31 0/I Equivocal/Low 0.32 - 0.55 I Low 0.56 - 1.40 II Moderate 1.41 - 3.90 III High 3.91 - 19.00 IV Very High 19.01 - 100.00 V Very High >100.00 Very High Serum gluten IgE antibody as say (units/volume)Ordered By: Aris Rai on 09-21-2023 Gluten IgE Qn (S) <0.10 kU/L Class 0 [facility] Serum onion IgE antibody ass ay (units/volume)Ordered By: Aris Rai on 09-21-2023 Onion IgE Qn (S) <0.10 kU/L Class 0 [facility] Serum orange IgE antibody as say (units/volume)Ordered By: Aris Rai on 09-21-2023 [place] IgE Qn (S) <0.10 kU/L Class 0 [facility] Serum pea IgE antibody assay (units/volume)Ordered By: Aris Rai on 09-21-2023 Pea IgE Qn (S) <0.10 kU/L Class 0 [facility] Serum rice IgE antibody assa y (units/volume)Ordered By: Aris Rai on 09-21-2023 Rice IgE Qn (S) <0.10 kU/L Class 0 [facility] Serum strawberry IgE antibod y assay (units/volume)Ordered By: Aris Rai on 09-21-2023 [place] IgE Qn (S) <0.10 kU/L Class 0 [facility] Serum tomato IgE antibody as say (units/volume)Ordered By: Aris Rai on 09-21-2023 Tomato IgE Qn (S) <0.10 kU/L Class 0 [facility] Serum turkey meat IgE antibo dy assay (units/volume)Ordered By: Aris Rai on 09-21-2023 [place] meat IgE Qn (S) <0.10 kU/L [facility] Comment on above: Performed at: [facility] [address] [id number] Director: Nataliya Ha MD, Phone: [phone] Serum wheat IgE antibody ass ay (units/volume)Ordered By: Aris Rai on 09-21-2023 Wheat IgE Qn (S) <0.10 kU/L Class 0 [facility] Serum white potato specific IgE antibody assayOrdered By: Aris Rai on 09-21-2023 Potato IgE Qn (S) <0.10 kU/L Class 0 [facility] Thin prep Papanicolaou smear with manual screeningOrdered By: Aris Rai on 09-21-2023 Thin prep Papanicolaou smear with manual screening <0.10 kU/L Class 0 [facility] Emergency Department Summary on 09-09-2023 Emergency Department Summary [facility] Medical Records [facility] [address] [place] [address] Emergency Department Summary 09/09/23 MR#: [id number] Acct: [id number] Name: PAYTON MCQUEEN Rep #: [id number] : [id number] 58 From: Alexey Bundy DO PCP: Dr. Sue Weber MD Status:DEP ER Location: ED HPI History of Present Illness Chief Complaint: Allergic Reaction Detail of Chief Complaint: Itching Informant: patient Narrative Narrative: Patient presents to the emergency department with complaint of itching and rash. She states that she finished amoxicillin about a week ago and then she noticed itching and rash. She had a hard time sleeping at night because of all the itching. Patient states that she had a similar issue in January of last year she believes and presented to the emergency department and had a shot of a steroid that really seem to help her within 6 to 8 hours. Patient states that she really cannot tolerate prednisone because it makes her nauseated and does not make her feel good. She is here requesting a shot of steroid that she had got last time. She denies any new soaps or detergents. She denies any other allergens. She denies new medications. [facility] Medical History Acute maxillary sinusitis, unspecified Anxiety Back pain Bladder distention Cancer Depression Essential thrombocythemia Gastric reflux History of stress test Hypertension Injury of back Interstitial cystitis Iron deficiency Knee pain Leukocytosis Low iron Malignant tumor of kidney Non-smoker Post-menopausal Pre-diabetes Severe headache Shoulder pain Stomach ulcer Thrombocytosis Thyroid disease Thyroid disease Vaginal candidiasis Home Medications buspirone 5 mg tablet 15 mg PO BID ANXIETY 08/28/15 [History Last Taken 01/15/19] mirabegron 25 mg tablet,extended release 24 hr 50 mg PO 1400 BLADDER 05/31/18 [History Last Taken 01/15/19] L.acidoph, paracasei,B. lactis 10 billion cell capsule 1 ea PO DAILY GUT HEALTH 01/16/19 [History Last Taken 01/16/19] bupropion HCl 150 mg tablet,12 hr sustained-release 300 mg PO 1400 DEPRESSION 02/19/19 [History Last Taken Unknown] aspirin 81 mg tablet,delayed release 81 mg PO DAILY 07/04/19 [History Last Taken 02/10/21] d-mannose 1 ea PO DAILY 02/28/20 [History Last Taken Unknown] methenamine 120 mg-methyl.blue 10.8 mg-sod phos-phenyl benja-hyos tablet 1 tab PO PRN PRN Bladder Spasms 02/15/21 [History Last Taken Unknown] buspirone 15 mg tablet 15 mg PO BID 12/03/21 [History Last Taken Unknown] doxepin 10 mg capsule 10 mg PO QHS 12/03/21 [History Last Taken Unknown] levothyroxine 150 mcg tablet 150 mcg PO DAILY 12/03/21 [History Last Taken Unknown] levothyroxine 25 mcg tablet 150 mcg PO DAILY THYROID 12/03/21 [History Last Taken Unknown] omeprazole 40 mg capsule,delayed release 40 mg PO DAILY 12/03/21 [History Last Taken Unknown] ondansetron 4 mg disintegrating tablet 4 mg PO Q8H PRN PRN Nausea #10 tabs 01/16/23 [Rx Last Taken Unknown] cyclobenzaprine 10 mg tablet 10 mg PO TID PRN Muscle Spasm #15 TABLETS 01/28/23 [Rx Last Taken Unknown] hydrocodone-acetaminophen 5-325mg 5mg-325mg 1 tab PO Q6H PRN PRN Pain 3 days #10 TABLETS 01/28/23 [Rx Last Taken Unknown] hydroxyzine HCl 25 mg tablet 25 mg PO Q6H PRN itching #20 tabs 09/09/23 [Rx Last Taken Unknown] Allergy/AdvReac Type Severity Reaction Status Date / Time ketorolac tromethamine Allergy Severe Hives Verified 09/09/23 18:47 [From Toradol] solifenacin succinate Allergy Severe Hives Verified 09/09/23 18:47 [From Vesicare] erythromycin base AdvReac Severe Nausea/Vom/ Verified 09/09/23 18:47 [Erythromycin Base] Diarrhea celecoxib [From Celebrex] AdvReac Intermediate Nausea/Vom/ Verified 09/09/23 18:47 Diarrhea lisinopril AdvReac Mild Vomiting Verified 09/09/23 18:47 Family History Father Diabetes Heart disease Hypertension Grandmother Cancer Surgical History History of cholecystectomy History of root canal procedure partial kidney removed Social History number of children: 0 current occupational status: employed current occupation: [employer] Smoking Status: Never smoker alcohol intake: never substance use type: does not use seatbelt use: sometimes do you feel safe at home: Yes additional social history: single ROS ROS ED Review of Systems ROS Unobtainable: other Constitutional Constitutional ED: Reports lethargy; Denies chills, fever(s), sweats or weight loss Eyes Eyes: Denies blurry vision, change in vision or diplopia ENT ENT ED: Denies rhinorrhea or sore throat Cardiovascular Cardiovascular: Reports chest pain and racing heartb (more content not included)... Normal [facility] COVID & INFLUENZA A/B & RSV NAAT, ROUTINEon 06-26-2023 FLUAV RNA LEILANI+probe Ql (Unsp spec) Not detected Not Detected [facility] FLUBV RNA LEILANI+probe Ql (Unsp spec) Not detected Not Detected [facility] RSV A RNA LEILANI+probe Ql (Unsp spec) Not detected Not Detected [facility] SARS-CoV-2 (COVID-19) RNA LEILANI+probe Ql (Resp) Detected Abnormal See comment [facility] XR CHEST 2V FRONTAL/LATon [facility] XR Chest PA and Lateralon IMPRESSION: No acute radiographic abnormality. 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 Professor: JOYCE Transcribe Date/Time: Feb 17 2023 1:33P Dictated by : ARLIN MALLOY MD This examination was interpreted and the report reviewed and electronically signed by: ARLIN MALLOY MD on Feb 17 2023 1:33PM [facility] DIVISION OF RADIOLOGY * * *Final Report* * * DATE OF EXAM: Feb 17 2023 1:30PM WOX 5291 - XR CHEST 2V FRONTAL/LAT / PROCEDURE REASON: Acute cough * * * * Physician Interpretation * * * * EXAMINATION: CHEST RADIOGRAPH (2 VIEW FRONTAL & LATERAL) CLINICAL HISTORY: Acute cough MQ: XC2_6 EXAM DATE/TIME: 02/17/2023 1:30 PM COMPARISON: Chest x-ray 02/12/2023 RESULT: Lines, tubes, and devices: None. Lungs and pleura: No consolidation. No lung mass. No pleural effusion. No pneumothorax. Cardiomediastinal silhouette: Normal cardiomediastinal silhouette. Bones and soft tissues: Unremarkable. DIVISION OF RADIOLOGY Provider, [facility] [place] - 02/17/2023 * * *Final Report* * * DATE OF EXAM: Feb 17 2023 1:30PM WOX 5291 - XR CHEST 2V FRONTAL/LAT / PROCEDURE REASON: Acute cough * * * * Physician Interpretation * * * * EXAMINATION: CHEST RADIOGRAPH (2 VIEW FRONTAL & LATERAL) CLINICAL HISTORY: Acute cough MQ: XC2_6 EXAM DATE/TIME: 02/17/2023 1:30 PM COMPARISON: Chest x-ray 02/12/2023 RESULT: Lines, tubes, and devices: None. Lungs and pleura: No consolidation. No lung mass. No pleural effusion. No pneumothorax. Cardiomediastinal silhouette: Normal cardiomediastinal silhouette. Bones and soft tissues: Unremarkable. IMPRESSION IMPRESSION: No acute radiographic abnormality. 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 Professor: JOYCE Transcribe Date/Time: Feb 17 2023 1:33P Dictated by : ARLIN MALLOY MD This examination was interpreted and the report reviewed and electronically signed by: ARLIN MALLOY MD on Feb 17 2023 1:33PM [facility] Radiology Study observation (narrative) [facility] XR Chest PA and LateralOrder ed By: Cc Provider on 02-17-2023 [facility] XR Chest PA and Lateralon IMPRESSION: Mild prominence of the bilateral pulmonary markings. 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 Professor: PSCB Transcribe Date/Time: Feb 12 2023 5:02P Dictated by : VIKY PERRY MD This examination was interpreted and the report reviewed and electronically signed by: VIKY PERRY MD on Feb 12 2023 5:03PM [facility] DIVISION OF RADIOLOGY * * *Final Report* * * DATE OF EXAM: Feb 12 2023 4:42PM WOX 5291 - XR CHEST 2V FRONTAL/LAT / PROCEDURE REASON: Acute cough * * * * Physician Interpretation * * * * EXAMINATION: CHEST RADIOGRAPH (2 VIEW FRONTAL & LATERAL) CLINICAL HISTORY: Acute cough MQ: XC2_6 EXAM DATE/TIME: 02/12/2023 4:42 PM COMPARISON: Chest x-ray on 07/22/2022 RESULT: Lines, tubes, and devices: None. Lungs and pleura: There is mild prominence of the bilateral pulmonary markings. No consolidation. No lung mass. No pleural effusion. No pneumothorax. Cardiomediastinal silhouette: Stable cardiomediastinal silhouette. Bones and soft tissues: There are degenerative changes in the spine. DIVISION OF RADIOLOGY Provider, [facility] - 02/12/2023 * * *Final Report* * * DATE OF EXAM: Feb 12 2023 4:42PM WOX 5291 - XR CHEST 2V FRONTAL/LAT / PROCEDURE REASON: Acute cough * * * * Physician Interpretation * * * * EXAMINATION: CHEST RADIOGRAPH (2 VIEW FRONTAL & LATERAL) CLINICAL HISTORY: Acute cough MQ: XC2_6 EXAM DATE/TIME: 02/12/2023 4:42 PM COMPARISON: Chest x-ray on 07/22/2022 RESULT: Lines, tubes, and devices: None. Lungs and pleura: There is mild prominence of the bilateral pulmonary markings. No consolidation. No lung mass. No pleural effusion. No pneumothorax. Cardiomediastinal silhouette: Stable cardiomediastinal silhouette. Bones and soft tissues: There are degenerative changes in the spine. IMPRESSION IMPRESSION: Mild prominence of the bilateral pulmonary markings. 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 Professor: JOYCE Transcribe Date/Time: Feb 12 2023 5:02P Dictated by : VIKY PERRY MD This examination was interpreted and the report reviewed and electronically signed by: VIKY PERRY MD on Feb 12 2023 5:03PM EST [facility] Radiology Study [facility] (narrative) [facility] and LateralOrder ed By: Ccf Provider on 02-12-2023 [facility] FERRITIN BLDon 01-15-2023 Ferritin [Mass/Vol] 24.5 ng/mL 14.7 - 205.1 ng/mL [facility] Iron and Iron binding capaci ty panelon 01-15-2023 Iron [Mass/Vol] 23 ug/dL Low 41 - 186 ug/dL [facility] Iron binding capacity [Mass/Vol] 459 ug/dL High 232 - 386 ug/dL [facility] Iron/TIBC [Molar ratio] 5.0 % Low 15.0 - 57.0 % [facility] VITAMIN B12 BLOODon 01-16-20 Cobalamin (Vitamin B12) [Mass/Vol] 929 pg/mL 232 - 1,245 pg/mL [facility] Absolute lymphocyte countOrd ered By: Loretta Eric on 01-06-2023 Lymphocytes Auto (Unsp spec) [#/Vol] 2.14 10*3/uL 0.83-4.51 [facility] Basophil percentageOrdered B y: Loretta Eric on 01-06-2023 Basophils/100 WBC (Bld) 2.0 % 0-1 [facility] Eosinophils/100 WBC (Bld) 2.5 % 0-5 [facility] Neutrophils (Bld) [#/Vol] 27.0 10*3/uL 2.0-7.7 [facility] Neutrophils/100 WBC (Bld) 85.3 % 47-70 [facility] WBC (Bld) [#/Vol] 31.7 10*3/uL 4.4-11.0 [facility] Comment on above: CRITICAL VALUE VERIF IED. CALLED TO [id number]/15/23 Fran6 Ignacia Banks.RESULTS READ BACK BY SAME . Blood erythrocytes count (nu mber/volume)Ordered By: Loretta Eric on 01-06-2023 RBC (Bld) [#/Vol] 7.11 10*6/uL 4.2-5.4 [facility] Blood hemoglobin measurement (mass/volume)Ordered By: Loretta Eric on 01-06-2023 Hemoglobin (Bld) [Mass/Vol] 12.6 g/dL 12.0-15.0 [facility] Blood lymphocytes/100 leukoc ytesOrdered By: Loretta Eric on 01-06-2023 Lymphocytes/100 WBC (Bld) 6.8 % 19-41 [facility] Blood manual differential co mment interpretation (narrative result)Ordered By: Loretta Eric on 01-06-2023 Manual differential comment [place] (Bld) [Interp] COMMENT [facility] Comment on above: NEUTROPHILIA.LEUKOCY TOSIS.THROMBOCYTOSIS. Blood monocytes/100 leukocyt esOrdered By: Loretta Eric on 01-06-2023 Monocytes/100 WBC (Bld) 2.1 % 0-10 [facility] Blood platelet adequacy dete ction by light microscopyOrdered By: Loretta Eric on 01-06-2023 Platelets LM Ql (Bld) MKD INC ADEQ [facility] Blood platelet mean volumeOr dered By: Loretta Eric on 01-06-2023 Platelet mean volume (Bld) [Entitic vol] 8.8 fL 6.2-12.0 [facility] Determination of erythrocyte mean corpuscular volume (MCV)Ordered By: Loretta Eric on 01-06-2023 MCV (RBC) [Entitic vol] 66.4 fL 81-99 [facility] Hematocrit Auto (Bld) [Volum e fraction][facility]: [facility] on 01-06-2023 Hematocrit (Bld) [Volume fraction] 47.2 % 37-47 [facility] Iron measurement (mass/mass) Ordered By: Loretta Eric on 01-06-2023 Iron (Unsp spec) [Mass/Mass] 28 ug/dL 50-170 [facility] Laboratory - Hematology and Cell countsOrdered By: [facility] on 01-06-2023 Anisocytosis Ql (Bld) 1+ [facility] Erythrocyte distribution width (RBC) [Entitic vol] 55.8 fL 35.1-43.9 [facility] Erythrocyte distribution width (RBC) [Ratio] 26.1 % 11.6-14.6 [facility] Immature granulocytes/100 WBC (Bld) 1.300 % 0.0-0.9 [facility] Comment on above: IG% - Immature Granu locytes (promyelocytes, myelocytes and metamyelocytes) > 1% indicates that a LEFT SHIFT is Present. MCH (RBC) [Entitic mass] 17.7 pg 27.0-32.0 [facility] Nucleated RBC/100 WBC (Bld) [Ratio] 0.1 % 0-5 [facility] MCHC Auto (RBC) [Mass/Vol]Or dered By: Loretta Eric on 01-06-2023 MCHC (RBC) [Mass/Vol] 26.7 g/dL 32-36 [facility] No Panel InformationOrdered By: Loretta Eric on 01-06-2023 Total Iron Binding Capacity 457 ug/dL 250-450 [facility] Platelets bldOrdered By: Chris Eric on 01-06-2023 Platelets (Bld) [#/Vol] 848 10*3/uL 150-450 [facility] Comment on above: CRITICAL VALUE VERIF IED. CALLED TO [id number]/15/23 1416 Ignacia Banks.RESULTS READ BACK BY SAME . Review by pathologistOrdered By: Loretta Eric on 01-06-2023 Pathologist review [place] (Unsp spec) [Interp] Doreen greer [facility] Pathologist review [place] (Unsp spec) [Interp] Reviewed [facility] Comment on above: Previous reported re sult: Doreen greer Edited by: RGOABDIAS on 01/07/23:1232Neutrophilic leukocytosis.Marked Thrombocytosis suggestive of proliferative disorder.Aris Rene D.O. 01/07/23 AMENDED REPORT 01/07/23 1232 PATH REV previously reported as: Doreen greer Serum or plasma ferritin luis alfredo surement (mass/volume)Ordered By: Loretta Eric on 01-06-2023 Ferritin [Mass/Vol] 7 ng/mL 8-252 [facility] Serum or plasma iron saturat ion measurement (mass fraction)Ordered By: Loretta Eric on 01-06-2023 Iron saturation [Mass fraction] 6.1 % 15.0-55.0 [facility] XR Chest PA and Lateralon IMPRESSION: No definite acute radiographic abnormality. 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 Professor: JOYCE Transcribe Date/Time: Jul 22 2022 5:06P Dictated by : VIKY PERRY MD This examination was interpreted and the report reviewed and electronically signed by: VIKY PERRY MD on Jul 22 2022 5:06PM [facility] DIVISION OF RADIOLOGY * * *Final Report* * * DATE OF EXAM: Jul 22 2022 11:53AM WOX 5291 - XR CHEST 2V FRONTAL/LAT / PROCEDURE REASON: multiple diagnoses * * * * Physician Interpretation * * * * EXAMINATION: CHEST RADIOGRAPH (2 VIEW FRONTAL & LATERAL) CLINICAL HISTORY: Cough, unspecified type Chest congestion MQ: XC2_6 EXAM DATE/TIME: 07/22/2022 11:53 AM COMPARISON: Chest x-ray on 04/11/2019 RESULT: Lines, tubes, and devices: None. Lungs and pleura: Small lung volume. No definite consolidative opacities. No mass lesion seen. No pleural effusions or pneumothorax. Cardiomediastinal silhouette: Grossly unchanged cardiomediastinal silhouette. Bones and soft tissues: The spine shows degenerative changes. DIVISION OF RADIOLOGY Provider, [facility] - 07/22/2022 * * *Final Report* * * DATE OF EXAM: Jul 22 2022 11:53AM WOX 5291 - XR CHEST 2V FRONTAL/LAT / PROCEDURE REASON: multiple diagnoses * * * * Physician Interpretation * * * * EXAMINATION: CHEST RADIOGRAPH (2 VIEW FRONTAL & LATERAL) CLINICAL HISTORY: Cough, unspecified type Chest congestion MQ: XC2_6 EXAM DATE/TIME: 07/22/2022 11:53 AM COMPARISON: Chest x-ray on 04/11/2019 RESULT: Lines, tubes, and devices: None. Lungs and pleura: Small lung volume. No definite consolidative opacities. No mass lesion seen. No pleural effusions or pneumothorax. Cardiomediastinal silhouette: Grossly unchanged cardiomediastinal silhouette. Bones and soft tissues: The spine shows degenerative changes. IMPRESSION IMPRESSION: No definite acute radiographic abnormality. 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 Professor: JOYCE Transcribe Date/Time: Jul 22 2022 5:06P Dictated by : VIKY PERRY MD This examination was interpreted and the report reviewed and electronically signed by: VIKY PERRY MD on Jul 22 2022 5:06PM EST [facility] Radiology Study observation (narrative) [facility] and LateralOrder ed By: Ccf Provider on 07-22-2022 [facility] UA DIP, URINE (POC)on 2021 BILIRUBIN UA (POCT) Negative Negative [place] [facility] CLARITY UA (POCT) Clear [facility] COLOR UA (POCT) Green [facility] GLUCOSE UA (POCT) Negative Negative mg/dL [facility] HEMOGLOBIN/BLOOD UA (POCT) Negative Negative [facility] KETONE UA (POCT) Negative Negative mg/dL [facility] LEUKOCYTES UA (POCT) Small Abnormal Negative [facility] NITRITE UA (POCT) Negative Negative [facility] PH UA (POCT) 5.5 4.5 - 8.0 [facility] Protein Ql (U) Negative Negative mg/dL [facility] SPECIFIC GRAVITY UA (POCT) 1.015 1.005 - 1.030 [facility] UROBILINOGEN UA (POCT) 0.2 E.U./dL Normal E.U./dL [facility] Absolute lymphocyte counton 12-03-2021 Lymphocytes Auto (Unsp spec) [#/Vol] 2.18 10*3/uL 0.83-4.51 [facility] Work Phone: Basophil percentageon 2021 Basophils/100 WBC (Bld) 1.5 % 0-1 [facility] Work Phone: Eosinophils/100 WBC (Bld) 2.9 % 0-5 [facility] Work Phone: Neutrophils (Bld) [#/Vol] 22.7 10*3/uL 2.0-7.7 [facility] Work Phone: Neutrophils/100 WBC (Bld) 84.0 % 47-70 [facility] Work Phone: WBC (Bld) [#/Vol] 27.1 10*3/uL 4.4-11.0 [facility] Work Phone: Blood erythrocytes count (nu mber/volume)on 12-03-2021 RBC (Bld) [#/Vol] 6.46 10*6/uL 4.2-5.4 [facility] Work Phone: Blood hemoglobin measurement (mass/volume)on 12-03-2021 Hemoglobin (Bld) [Mass/Vol] 11.3 g/dL 12.0-15.0 [facility] Work Phone: Blood lymphocytes/100 leukoc yteson 12-03-2021 Lymphocytes/100 WBC (Bld) 8.0 % 19-41 [facility] Work Phone: Blood manual differential co mment interpretation (narrative result)on 12-03-2021 Manual differential comment [place] (Bld) [Interp] SCANNED [facility] Work Phone: Blood monocytes/100 leukocyt eson 12-03-2021 Monocytes/100 WBC (Bld) 2.3 % 0-10 [facility] Work Phone: Blood platelet mean volumeon 12-03-2021 Platelet mean volume (Bld) [Entitic vol] 8.4 fL 6.2-12.0 [facility] Work Phone: Blood polychromasia detectio n by light microscopyOrdered By: Loretta Eric on 12-03-2021 Polychromasia LM Ql (Bld) RARE [facility] Determination of erythrocyte mean corpuscular volume (MCV)on 12-03-2021 MCV (RBC) [Entitic vol] 64.7 fL 81-99 [facility] Work Phone: Hematocrit Auto (Bld) [Volum e fraction]on 12-03-2021 Hematocrit (Bld) [Volume fraction] 41.8 % 37-47 [facility] Work Phone: Hypochromatic red blood cell detectionOrdered By: Loretta Eric on 12-03-2021 Hypochromia Ql (Bld) 2+ [facility] Laboratory - Hematology and Cell countson 12-03-2021 Erythrocyte distribution width (RBC) [Entitic vol] 54.2 fL 35.1-43.9 [facility] Work Phone: Erythrocyte distribution width (RBC) [Ratio] 25.6 % 11.6-14.6 [facility] Work Phone: Immature granulocytes/100 WBC (Bld) 1.300 % 0.0-0.9 [facility] Work Phone: Comment on above: IG% - Immature Granu locytes (promyelocytes, myelocytes and metamyelocytes) > 1% indicates that a LEFT SHIFT is Present. MCH (RBC) [Entitic mass] 17.5 pg 27.0-32.0 [facility] Work Phone: Nucleated RBC/100 WBC (Bld) [Ratio] 0 % 0-5 [facility] Work Phone: MCHC Auto (RBC) [Mass/Vol]on 12-03-2021 MCHC (RBC) [Mass/Vol] 27.0 g/dL 32-36 [facility] Work Phone: Platelets bldon 12-03-2021 Platelets (Bld) [#/Vol] 843 10*3/uL 150-450 [facility] Work Phone: Comment on above: CRITICAL VALUE VERIF IED. CALLED TO CATINA PERRY ONC12/03/21 1438 Wanda Mcnamara.RESULTS READ BACK BY SAME . Review by pathologiston 11-22 Pathologist review [place] (Unsp spec) [Interp] Reviewed [facility] Work Phone: Comment on above: Previous reported re sult: Doreen greer Edited by: ANDREW on 12/04/21:1241Neutrophilic leukocytosis.Thrombocytosis.Clinical correlation necessary.Stas Valle M.D. 12/04/21 AMENDED REPORT 12/04/21 1241 PATH REV previously reported as: Doreen greer Thin prep Papanicolaou smear with manual screeningOrdered By: Loretta Eric on 12-03-2021 Thin prep Papanicolaou smear with manual screening 3+ [facility] Blood platelet adequacy dete ction by light microscopyon 02-13-2021 Platelets LM Ql (Bld) MKD INC ADEQ [facility] Work Phone: Laboratory - Hematology and Cell countson 02-13-2021 Anisocytosis Ql (Bld) 2+ [facility] Work Phone: Ovalocyte detectionon 2020 Ovalocytes LM Ql (Bld) RARE [facility] RBC morphologyon 10-11-2020 RBC morphology finding Nom (Bld) N CHROM NORMAL NORM C&C [facility] No Panel Informationon 02-19 Miscellaneous Test See comment [facility] Comment on above: TEST RESULT LIMITSCM L Chromosome/FISH Profile Cells Counted 200 Cells Analyzed 200 FISH Result Comment: NORMAL: NO BCR OR ABL1 GENE REARRANGEMENT OBSERVEDInterpretation Comment: nuc elmer 9q34(ASS1,ABL1)x2,22q11.2(BCRx2)[200].The fluorescence in situ hybridization (FISH) studywas normal. FISH, using unique sequence DNA probes for theABL1 and BCR gene regions showed two ABL1 signals (red), twocontrol ASS1 gene signals (aqua) located adjacent to theABL1 locus at 9q34, and two BCR signals (green) at 22q11.2in all interphase nuclei examined. There was NO evidence ofCML or ALL-associated BCR/ABL1 dual fusion signals in thisanalysis. .This analysis is limited to abnormalities detectableby the specific probes included in the study. FISH resultsshould be interpreted within the context of a fullcytogenetic analysis and pathology evaluation. .This test was developed and its performancecharacteristics determined by [employer] ([employer]). It has not been cleared orapproved by the U.S. Food and Drug Administration. ABCR-ABL1 gene fusion in greater than 3 interphase nuclei gavino patient with a new clinical diagnosis is consideredpositive. The DNA probe vendor for this study was [employer]).Specimen Type Comment: BLOODDirector Review: Comment: Halle Erickson, PhD, FACMGSpecimen Type Comment: BLOODCells Counted 0 Cells Analyzed 0 Cells Karyotyped 0 GTG Band Resolution Achieved N/A Cytogenetic Result Comment: NO MITOTIC ACTIVITYInterpretation Comment: NO RESULTCytogenetic analysis of unstimulated culturesrevealed no mitotic activity. The sample submitted appearedto be blood. Generally 5% blasts in the peripheralcirculation are necessary to obtain cytogenetic results*.Bone marrow is recommended for the analysis of disorderswith blasts below that percentage.Interphase FISH (fluorescence in situ hybridization)or a chromosome microarray [employer]), however, can be performedon this sample. FISH panels available targeting specificdisease associated alterations are: AML (#[id number]), MDS(#[id number]), CLL (#[id number]), MM (#[id number]), ALL (#[id number],pediatric panel; #[id number], adult panel), and aggressiveB-cell lymphoma (#[id number]). The array (#[id number]) targets bothcopy number changes throughout the genome and copy neutralLOH. (If desired, please call the number below ([phone]) andtesting can be performed on available residual sample..*In small cell B-lymphoid disorders some leukemic clonescan be stimulated by B mitogens, eliminating the necessityfor peripheral blood blasts. These disorders include mostB-LPD.Director Review: Comment: Levar Jorge, PhD, [facility]. ORIGINAL REPORT ON FILE IN LAB CONTAINS ADDITIONAL TEST SITE INFORMATION. ____ Red blood cell stomatocyte d etectionon 11-07-2019 Stomatocytes LM Ql (Bld) 2+ [facility] Basophil percentageon 2019 Bilirubin [Mass/Vol] 0.50 mg/dL 0.20-1.00 [facility] Chloride [Moles/Vol] 105 mmol/L 98-107 [facility] Glucose [Mass/Vol] 157 mg/dL 74-106 [facility] Comment on above: Fasting Glucose resu lt greater than or equal to 126 mg/dL suggests DIABETES MELLITUS per A.D.A. criteria.Please note revised GLUCOSE reference range effective 2017. Potassium [Moles/Vol] 3.8 mmol/L 3.5-5.1 [facility] Protein [Mass/Vol] 7.9 g/dL 6.4-8.2 [facility] Sodium [Moles/Vol] 138 mmol/L 136-145 [facility] Iron measurement (mass/mass) on 07-11-2019 Iron (Unsp spec) [Mass/Mass] 26 ug/dL 50-170 [facility] Work Phone: Laboratory - Chemistry and C hemistry - challengeon 07-11-2019 ALP [Catalytic activity/Vol] 135 U/L 45-117 [facility] ALT [Catalytic activity/Vol] 31 U/L 13-56 [facility] CO2 [Moles/Vol] 29.0 mmol/L 21.0-32.0 [facility] Globulin (S) [Mass/Vol] 4.2 g/dL 2.2-4.2 [facility] Urea nitrogen/Creatinine [Mass ratio] 9.7 mg/mg 10-20 [facility] No Panel Informationon 07-11 Estimated Creatinine Clearance Calc 55.17 ml/min [facility] Estimated GFR (MDRD) Amer 72 mL/min >60 [facility] Comment on above: GFR Calc Estimated GFR (MDRD) Non-Af Amer 60 mL/min >60 [facility] Comment on above: Non- GFR Calc Total Iron Binding Capacity 440 ug/dL 250-450 [facility] Work Phone: Serum or plasma albumin karl urement (mass/volume)on 07-11-2019 Albumin [Mass/Vol] 3.7 g/dL 3.2-5.0 [facility] Serum or plasma albumin/glob ulin mass ratioon 07-11-2019 Albumin/Globulin [Mass ratio] 0.9 {ratio} 0.9-2.4 [facility] Serum or plasma calcium karl urement (mass/volume)on 07-11-2019 Calcium [Mass/Vol] 9.1 mg/dL 8.5-10.1 [facility] Serum or plasma creatinine m easurement (mass/volume)on 07-11-2019 Creatinine [Mass/Vol] 1.03 mg/dL 0.55-1.02 [facility] Comment on above: The validity of the calculated GFR & GFRAA in patients over 70 years has not been determined. Clinical correlation is essential. Serum or plasma ferritin luis alfredo surement (mass/volume)on 07-11-2019 Ferritin [Mass/Vol] 6 ng/mL 8-252 [facility] Work Phone: Serum or plasma iron saturat ion measurement (mass fraction)on 07-11-2019 Iron saturation [Mass fraction] 5.9 % 15.0-55.0 [facility] Work Phone: Serum or plasma urea nitroge n measurement (mass/volume)on 07-11-2019 Urea nitrogen [Mass/Vol] 10 mg/dL 7-18 [facility] Thin prep Papanicolaou smear with manual screeningon 07-11-2019 Thin prep Papanicolaou smear with manual screening 26 U/L 15-37 [facility] Thin prep Papanicolaou smear with manual screening 4 5-15 [facility] Emergency Room Note on 04-30-2017 [place] [facility] Note Normal [facility] ([place]) Patient Summary Documentson 04-30-2017 Patient Summary Documents Normal [facility]) Vital Signs Date Time Vital Sign Value Performing Clinician Facility 10-31-2024 19:11-0400 Diastolic blood pressure 70 mm[Hg] Sue Weber MD Work Phone: [facility] 10-31-2024 19:11-0400 Systolic blood pressure 138 mm[Hg] Sue Weber MD Work Phone: [facility] 10-31-2024 19:05-0400 Body mass index (BMI) [Ratio] 37.49 kg/m2 Sue Weber MD Work Phone: [facility] 10-31-2024 19:05-0400 Body temperature 98.71 [degF] Sue Weber MD Work Phone: [facility] 10-31-2024 19:05-0400 Body weight 99.3 kg Sue Weber MD Work Phone: [facility] 10-31-2024 19:05-0400 Heart rate 76 /min Sue Weber MD Work Phone: [facility] 10-31-2024 19:05-0400 Respiratory rate 16 /min Sue Weber MD Work Phone: [facility] 10-03-2024 08:18-0400 Body mass index (BMI) [Ratio] 36.99 kg/m2 Maude Reeves PA-C Work Phone: [facility] 10-03-2024 08:18-0400 Body temperature 98.4 [degF] Maude Reeves PA-C Work Phone: [facility] 10-03-2024 08:18-0400 Body weight 97.98 kg Maude Reeves PA-C Work Phone: [facility] 10-03-2024 08:18-0400 Diastolic blood pressure 82 mm[Hg] Maude Reeves PA-C Work Phone: [facility] 10-03-2024 08:18-0400 Heart rate 73 /min Maude Reeves PA-C Work Phone: [facility] 10-03-2024 08:18-0400 Respiratory rate 18 /min Maude Reeves PA-C Work Phone: [facility] 10-03-2024 08:18-0400 SaO2% (BldA) [Mass fraction] 96 % Maude Reeves PA-C Work Phone: [facility] 10-03-2024 08:18-0400 Systolic blood pressure 150 mm[Hg] Maude Reeves PA-C Work Phone: [facility] 08-31-2024 12:26-0400 Body mass index (BMI) [Ratio] 37.59 kg/m2 Gadiel Davis MD Work Phone: [facility] 08-31-2024 12:26-0400 Body temperature 97.11 [degF] Gadiel Davis MD Work Phone: [facility] 08-31-2024 12:26-0400 Body weight 99.56 kg Gadiel Davis MD Work Phone: [facility] 08-31-2024 12:26-0400 Diastolic blood pressure 79 mm[Hg] Gadiel Davis MD Work Phone: [facility] 08-31-2024 12:26-0400 Heart rate 77 /min Gadiel Davis MD Work Phone: [facility] 08-31-2024 12:26-0400 SaO2% (BldA) [Mass fraction] 97 % Gadiel Davis MD Work Phone: [facility] 08-31-2024 12:26-0400 Systolic blood pressure 144 mm[Hg] Gadiel Davis MD Work Phone: [facility] 08-22-2024 10:27-0400 Body height 162.8 cm Gadiel Davsi MD Work Phone: [facility] 08-22-2024 10:27-0400 Body mass index (BMI) [Ratio] 37.76 kg/m2 Gadiel Davis MD Work Phone: [facility] 08-22-2024 10:27-0400 Body temperature 96.6 [degF] Gadiel Davis MD Work Phone: [facility] 08-22-2024 10:27-0400 Body weight 100.02 kg Gadiel Davis MD Work Phone: [facility] 08-22-2024 10:27-0400 Diastolic blood pressure 81 mm[Hg] Gadiel Davis MD Work Phone: [facility] 08-22-2024 10:27-0400 Heart rate 76 /min Gadiel Davis MD Work Phone: [facility] 08-22-2024 10:27-0400 SaO2% (BldA) [Mass fraction] 97 % Gadiel Davis MD Work Phone: [facility] 08-22-2024 10:27-0400 Systolic blood pressure 146 mm[Hg] Gadiel Davis MD Work Phone: [facility] 08-02-2024 09:26-0400 Body mass index (BMI) [Ratio] 39.44 kg/m2 Sue Weber MD Work Phone: [facility] 08-02-2024 09:26-0400 Body weight 101 kg Sue Weber MD Work Phone: [facility] 08-02-2024 09:26-0400 Diastolic blood pressure 80 mm[Hg] Sue Weber MD Work Phone: [facility] 08-02-2024 09:26-0400 Heart rate 88 /min Sue Weber MD Work Phone: [facility] 08-02-2024 09:26-0400 Respiratory rate 18 /min Sue Weber MD Work Phone: [facility] 08-02-2024 09:26-0400 SaO2% (BldA) [Mass fraction] 98 % Sue Weber MD Work Phone: [facility] 08-02-2024 09:26-0400 Systolic blood pressure 140 mm[Hg] Sue Weber MD Work Phone: [facility] 07-30-2024 16:03-0500 Body temperature 98.7 [degF] Dr. Sue Weber MD Work Phone: [facility] 07-30-2024 16:03-0500 Diastolic blood pressure 78 mm[Hg] Dr. Sue Weber MD Work Phone: [facility] 07-30-2024 16:03-0500 Heart rate 64 /min Dr. Sue Weber MD Work Phone: [facility] 07-30-2024 16:03-0500 Respiratory rate 18 /min Dr. Sue Weber MD Work Phone: [facility] 07-30-2024 16:03-0500 SaO2% (BldA) [Mass fraction] 99 % Dr. Sue Weber MD Work Phone: [facility] 07-30-2024 16:03-0500 Systolic blood pressure 134 mm[Hg] Dr. Sue Weber MD Work Phone: [facility] 07-30-2024 15:31-0500 Body height 162.[address] Sue Weber MD Work Phone: [facility] 07-30-2024 15:31-0500 Body mass index (BMI) [Ratio] 38.2 kg/m2 Dr. Seu Weber MD Work Phone: [facility] 07-30-2024 15:31-0500 Body weight 101.[address] Sue Weber MD Work Phone: [facility] 07-28-2024 09:23-0500 Body mass index (BMI) [Ratio] 40.03 kg/m2 Sue Weber MD Work Phone: [facility] 07-28-2024 09:23-0500 Body temperature 98.8 [degF] Sue Weber MD Work Phone: [facility] 07-28-2024 09:23-0500 Body weight 102.5 kg Sue Weber MD Work Phone: [facility] 07-28-2024 09:23-0500 Diastolic blood pressure 80 mm[Hg] Sue Weber MD Work Phone: [facility] 07-28-2024 09:23-0500 Heart rate 78 /min Sue Weber MD Work Phone: [facility] 07-28-2024 09:23-0500 Respiratory rate 16 /min Sue Weber MD Work Phone: [facility] 07-28-2024 09:23-0500 SaO2% (BldA) [Mass fraction] 94 % Sue Weber MD Work Phone: [facility] 07-28-2024 09:23-0500 Systolic blood pressure 130 mm[Hg] Sue Weber MD Work Phone: [facility] 07-04-2024 15:11-0500 Body mass index (BMI) [Ratio] 40.11 kg/m2 Sue Weber MD Work Phone: [facility] 07-04-2024 15:11-0500 Body temperature 98.4 [degF] Sue Weber MD Work Phone: [facility] 07-04-2024 15:11-0500 Body weight 102.7 kg Sue Weber MD Work Phone: [facility] 07-04-2024 15:11-0500 Diastolic blood pressure 96 mm[Hg] Sue Weber MD Work Phone: [facility] 07-04-2024 15:11-0500 Heart rate 80 /min Sue Weber MD Work Phone: [facility] 07-04-2024 15:11-0500 Respiratory rate 18 /min Sue Weber MD Work Phone: [facility] 07-04-2024 15:11-0500 Systolic blood pressure 148 mm[Hg] Sue Weber MD Work Phone: [facility] 06-21-2024 16:32-0500 Body mass index (BMI) [Ratio] 39.72 kg/m2 Sue Weber MD Work Phone: [facility] 06-21-2024 16:32-0500 Body weight 101.7 kg Sue Weber MD Work Phone: [facility] 06-21-2024 16:32-0500 Diastolic blood pressure 70 mm[Hg] Sue Weber MD Work Phone: [facility] 06-21-2024 16:32-0500 Heart rate 88 /min Sue Weber MD Work Phone: [facility] 06-21-2024 16:32-0500 Respiratory rate 16 /min Sue Weber MD Work Phone: [facility] 06-21-2024 16:32-0500 Systolic blood pressure 122 mm[Hg] Sue Weber MD Work Phone: [facility] 06-03-2024 15:02-0500 Diastolic blood pressure 92 mm[Hg] Sue Weber MD Work Phone: [facility] 06-03-2024 15:02-0500 Systolic blood pressure 142 mm[Hg] Sue Weber MD Work Phone: [facility] 06-03-2024 14:58-0500 Body mass index (BMI) [Ratio] 40.58 kg/m2 Sue Weber MD Work Phone: [facility] 06-03-2024 14:58-0500 Body weight 103.9 kg Sue Weber MD Work Phone: [facility] 06-03-2024 14:58-0500 Heart rate 78 /min Sue Weber MD Work Phone: [facility] 06-03-2024 14:58-0500 Respiratory rate 16 /min Sue Weber MD Work Phone: [facility] 05-11-2024 17:14-0500 Body temperature 99.2 [degF] Dr. Sue Weber MD Work Phone: [facility] 05-11-2024 17:14-0500 Diastolic blood pressure 78 mm[Hg] Dr. Sue Weber MD Work Phone: [facility] 05-11-2024 17:14-0500 Heart rate 102 /min Dr. Sue Weber MD Work Phone: [facility] 05-11-2024 17:14-0500 Respiratory rate 17 /min Dr. Sue Weber MD Work Phone: [facility] 05-11-2024 17:14-0500 SaO2% (BldA) [Mass fraction] 97 % Dr. Sue Weber MD Work Phone: [facility] 05-11-2024 17:14-0500 Systolic blood pressure 144 mm[Hg] Dr. Sue Weber MD Work Phone: [facility] 04-28-2024 09:46-0500 Body mass index (BMI) [Ratio] 41.36 kg/m2 Sue Weber MD Work Phone: [facility] 04-28-2024 09:46-0500 Body temperature 97.9 [degF] Sue Weber MD Work Phone: [facility] 04-28-2024 09:46-0500 Body weight 105.9 kg Sue Weber MD Work Phone: [facility] 04-28-2024 09:46-0500 Diastolic blood pressure 90 mm[Hg] Sue Weber MD Work Phone: [facility] 04-28-2024 09:46-0500 Heart rate 88 /min Sue Weber MD Work Phone: [facility] 04-28-2024 09:46-0500 Respiratory rate 18 /min Sue Weber MD Work Phone: [facility] 04-28-2024 09:46-0500 SaO2% (BldA) [Mass fraction] 94 % Sue Weber MD Work Phone: [facility] 04-28-2024 09:46-0500 Systolic blood pressure 140 mm[Hg] Sue Weber MD Work Phone: [facility] 04-22-2024 15:33-0500 Diastolic blood pressure 82 mm[Hg] Sue Weber MD Work Phone: [facility] 04-22-2024 15:33-0500 Systolic blood pressure 158 mm[Hg] Sue Weber MD Work Phone: [facility] 04-22-2024 15:31-0500 Body mass index (BMI) [Ratio] 41.32 kg/m2 Sue Weber MD Work Phone: [facility] 04-22-2024 15:31-0500 Body weight 105.8 kg Sue Weber MD Work Phone: [facility] 04-22-2024 15:31-0500 Heart rate 84 /min Sue Weber MD Work Phone: [facility] 04-22-2024 15:31-0500 Respiratory rate 16 /min Sue Weber MD Work Phone: [facility] 03-25-2024 12:10-0400 Body mass index (BMI) [Ratio] 41.79 kg/m2 [facility] OCEANOGRAPHER PHYSICAL.CLERICAL SUPERVISOR Work Phone: [facility] 03-25-2024 12:10-0400 Body temperature 97.81 [degF] [facility] OCEANOGRAPHER PHYSICAL.CLERICAL SUPERVISOR Work Phone: [facility] 03-25-2024 12:10-0400 Body weight 107 kg [facility] OCEANOGRAPHER PHYSICAL.CLERICAL SUPERVISOR Work Phone: [facility] 03-25-2024 12:10-0400 Diastolic blood pressure 74 mm[Hg] [facility] OCEANOGRAPHER PHYSICAL.CLERICAL SUPERVISOR Work Phone: [facility] 03-25-2024 12:10-0400 Heart rate 97 /min [facility] OCEANOGRAPHER PHYSICAL.CLERICAL SUPERVISOR Work Phone: [facility] 03-25-2024 12:10-0400 Respiratory rate 20 /min [facility] OCEANOGRAPHER PHYSICAL.CLERICAL SUPERVISOR Work Phone: [facility] 03-25-2024 12:10-0400 SaO2% (BldA) [Mass fraction] 97 % [facility] OCEANOGRAPHER PHYSICAL.CLERICAL SUPERVISOR Work Phone: [facility] 03-25-2024 12:10-0400 Systolic blood pressure 169 mm[Hg] [facility] OCEANOGRAPHER PHYSICAL.CLERICAL SUPERVISOR Work Phone: [facility] 03-21-2024 18:23-0400 Body mass index (BMI) [Ratio] 41.59 kg/m2 Bhupinder Castañeda MD Work Phone: [facility] 03-21-2024 18:23-0400 Body temperature 97.3 [degF] Bhupinder Castañeda MD Work Phone: [facility] 03-21-2024 18:23-0400 Body weight 106.5 kg Bhupinder Castañeda MD Work Phone: [facility] 03-21-2024 18:23-0400 Diastolic blood pressure 92 mm[Hg] Bhupinder Castañeda MD Work Phone: [facility] 03-21-2024 18:23-0400 Heart rate 93 /min Bhupinder Castañeda MD Work Phone: [facility] 03-21-2024 18:23-0400 SaO2% (BldA) [Mass fraction] 96 % Bhupinder Castañeda MD Work Phone: [facility] 03-21-2024 18:23-0400 Systolic blood pressure 162 mm[Hg] Bhupinder Castañeda MD Work Phone: [facility] 02-25-2024 10:39-0400 Body mass index (BMI) [Ratio] 42.02 kg/m2 Sue Weber MD Work Phone: [facility] 02-25-2024 10:39-0400 Body weight 107.6 kg Sue Weber MD Work Phone: [facility] 02-25-2024 10:39-0400 Diastolic blood pressure 78 mm[Hg] Sue Weber MD Work Phone: [facility] 02-25-2024 10:39-0400 Heart rate 74 /min Sue Weber MD Work Phone: [facility] 02-25-2024 10:39-0400 Respiratory rate 18 /min Sue Weber MD Work Phone: [facility] 02-25-2024 10:39-0400 Systolic blood pressure 140 mm[Hg] Sue Weber MD Work Phone: [facility] 02-23-2024 14:33-0400 Body mass index (BMI) [Ratio] 42.65 kg/m2 Sue Weber MD Work Phone: [facility] 02-23-2024 14:33-0400 Body weight 109.2 kg Sue Weber MD Work Phone: [facility] 02-23-2024 14:33-0400 Diastolic blood pressure 88 mm[Hg] Sue Weber MD Work Phone: [facility] 02-23-2024 14:33-0400 Heart rate 90 /min Sue Weber MD Work Phone: [facility] 02-23-2024 14:33-0400 Respiratory rate 18 /min Sue Weber MD Work Phone: [facility] 02-23-2024 14:33-0400 Systolic blood pressure 138 mm[Hg] Sue Weber MD Work Phone: [facility] 02-17-2024 15:43-0400 Diastolic blood pressure 85 mm[Hg] Carly Haagen OCEANOGRAPHER PHYSICAL.CLERICAL SUPERVISOR Work Phone: [facility] Comment on above: KRISSY BP 02-17-2024 15:43-0400 Heart rate 86 /min Carly Haagen OCEANOGRAPHER PHYSICAL.CLERICAL SUPERVISOR Work Phone: [facility] 02-17-2024 15:43-0400 Systolic blood pressure 155 mm[Hg] Carly Haagen OCEANOGRAPHER PHYSICAL.CLERICAL SUPERVISOR Work Phone: [facility] Comment on above: KRISSY BP 02-17-2024 14:53-0400 Respiratory rate 16 /min Carly Haagen OCEANOGRAPHER PHYSICAL.CLERICAL SUPERVISOR Work Phone: [facility] 02-17-2024 14:53-0400 SaO2% (BldA) [Mass fraction] 96 % Carly Haagen OCEANOGRAPHER PHYSICAL.CLERICAL SUPERVISOR Work Phone: [facility] 02-15-2024 08:12-0400 Diastolic blood pressure 102 mm[Hg] Carly Haagen OCEANOGRAPHER PHYSICAL.CLERICAL SUPERVISOR Work Phone: [facility] 02-15-2024 08:12-0400 Heart rate 91 /min Carly Haagen OCEANOGRAPHER PHYSICAL.CLERICAL SUPERVISOR Work Phone: [facility] 02-15-2024 08:12-0400 Respiratory rate 16 /min Carly Haagen OCEANOGRAPHER PHYSICAL.CLERICAL SUPERVISOR Work Phone: [facility] 02-15-2024 08:12-0400 SaO2% (BldA) [Mass fraction] 93 % Carly Haagen OCEANOGRAPHER PHYSICAL.CLERICAL SUPERVISOR Work Phone: [facility] 02-15-2024 08:12-0400 Systolic blood pressure 184 mm[Hg] Carly Haagen OCEANOGRAPHER PHYSICAL.CLERICAL SUPERVISOR Work Phone: [facility] 02-08-2024 18:27-0400 Body temperature 100.2 [degF] Carly Lewis OCEANOGRAPHER PHYSICAL.CLERICAL SUPERVISOR Work Phone: [facility] 02-08-2024 18:27-0400 Diastolic blood pressure 100 mm[Hg] Carly Lewis OCEANOGRAPHER PHYSICAL.CLERICAL SUPERVISOR Work Phone: [facility] 02-08-2024 18:27-0400 Heart rate 95 /min Carly Lewis OCEANOGRAPHER PHYSICAL.CLERICAL SUPERVISOR Work Phone: [facility] 02-08-2024 18:27-0400 Respiratory rate 16 /min Carly Lewis OCEANOGRAPHER PHYSICAL.CLERICAL SUPERVISOR Work Phone: [facility] 02-08-2024 18:27-0400 SaO2% (BldA) [Mass fraction] 95 % Carly Lewis OCEANOGRAPHER PHYSICAL.CLERICAL SUPERVISOR Work Phone: [facility] 02-08-2024 18:27-0400 Systolic blood pressure 180 mm[Hg] Carly Lewis OCEANOGRAPHER PHYSICAL.CLERICAL SUPERVISOR Work Phone: [facility] 02-04-2024 16:59-0400 Body mass index (BMI) [Ratio] 41.27 kg/m2 Corinna Toussaint APRN.CLERICAL SUPERVISOR Work Phone: [facility] 02-04-2024 16:59-0400 Body temperature 97.59 [degF] Corinna Toussaint OCEANOGRAPHER PHYSICAL.CLERICAL SUPERVISOR Work Phone: [facility] 02-04-2024 16:59-0400 Body weight 105.69 kg Corinna Toussaint APRN.CLERICAL SUPERVISOR Work Phone: [facility] 02-04-2024 16:59-0400 Diastolic blood pressure 81 mm[Hg] Corinna Toussaint APRN.CLERICAL SUPERVISOR Work Phone: [facility] 02-04-2024 16:59-0400 Heart rate 88 /min Corinna Toussaint OCEANOGRAPHER PHYSICAL.CLERICAL SUPERVISOR Work Phone: [facility] 02-04-2024 16:59-0400 Respiratory rate 14 /min Corinna Toussaint OCEANOGRAPHER PHYSICAL.CLERICAL SUPERVISOR Work Phone: [facility] 02-04-2024 16:59-0400 Systolic blood pressure 157 mm[Hg] Corinna Toussaint OCEANOGRAPHER PHYSICAL.CLERICAL SUPERVISOR Work Phone: [facility] 01-31-2024 13:32-0400 Body mass index (BMI) [Ratio] 41.4 kg/m2 Glenda Omer OCEANOGRAPHER PHYSICAL.CLERICAL SUPERVISOR Work Phone: [facility] 01-31-2024 13:32-0400 Body temperature 98.29 [degF] Glenda Omer OCEANOGRAPHER PHYSICAL.CLERICAL SUPERVISOR Work Phone: [facility] 01-31-2024 13:32-0400 Body weight 106 kg Glenda Omer OCEANOGRAPHER PHYSICAL.CLERICAL SUPERVISOR Work Phone: [facility] 01-31-2024 13:32-0400 Diastolic blood pressure 86 mm[Hg] Glenda Omer OCEANOGRAPHER PHYSICAL.CLERICAL SUPERVISOR Work Phone: [facility] 01-31-2024 13:32-0400 Heart rate 89 /min Glenda Omer OCEANOGRAPHER PHYSICAL.CLERICAL SUPERVISOR Work Phone: [facility] 01-31-2024 13:32-0400 Respiratory rate 20 /min Glenda Omer OCEANOGRAPHER PHYSICAL.CLERICAL SUPERVISOR Work Phone: [facility] 01-31-2024 13:32-0400 SaO2% (BldA) [Mass fraction] 95 % Glenda Omer OCEANOGRAPHER PHYSICAL.CLERICAL SUPERVISOR Work Phone: [facility] 01-31-2024 13:32-0400 Systolic blood pressure 151 mm[Hg] Glenda Omer OCEANOGRAPHER PHYSICAL.CLERICAL SUPERVISOR Work Phone: [facility] 01-14-2024 10:13-0400 Body mass index (BMI) [Ratio] 41.47 kg/m2 Sue Weber MD Work Phone: [facility] 01-14-2024 10:13-0400 Body weight 106.2 kg Sue Weber MD Work Phone: [facility] 01-14-2024 10:13-0400 Diastolic blood pressure 80 mm[Hg] Sue Weber MD Work Phone: [facility] 01-14-2024 10:13-0400 Heart rate 78 /min Sue Weber MD Work Phone: [facility] 01-14-2024 10:13-0400 Respiratory rate 18 /min Sue Weber MD Work Phone: [facility] 01-14-2024 10:13-0400 Systolic blood pressure 144 mm[Hg] Sue Weber MD Work Phone: [facility] 11-27-2023 19:25-0400 Body mass index (BMI) [Ratio] 41.79 kg/m2 Hang Parker OCEANOGRAPHER PHYSICAL.CLERICAL SUPERVISOR Work Phone: [facility] 11-27-2023 19:25-0400 Body temperature 97.5 [degF] Hang Parker OCEANOGRAPHER PHYSICAL.CLERICAL SUPERVISOR Work Phone: [facility] 11-27-2023 19:25-0400 Body weight 107 kg Hang Parker OCEANOGRAPHER PHYSICAL.CLERICAL SUPERVISOR Work Phone: [facility] 11-27-2023 19:25-0400 Diastolic blood pressure 82 mm[Hg] Hang Parker OCEANOGRAPHER PHYSICAL.CLERICAL SUPERVISOR Work Phone: [facility] 11-27-2023 19:25-0400 Heart rate 86 /min Hang Parker OCEANOGRAPHER PHYSICAL.CLERICAL SUPERVISOR Work Phone: [facility] 11-27-2023 19:25-0400 Respiratory rate 18 /min Hang Parker OCEANOGRAPHER PHYSICAL.CLERICAL SUPERVISOR Work Phone: [facility] 11-27-2023 19:25-0400 SaO2% (BldA) [Mass fraction] 98 % Hang Parker OCEANOGRAPHER PHYSICAL.CLERICAL SUPERVISOR Work Phone: [facility] 11-27-2023 19:25-0400 Systolic blood pressure 168 mm[Hg] Hang Parker OCEANOGRAPHER PHYSICAL.CLERICAL SUPERVISOR Work Phone: [facility] 11-19-2023 13:21-0400 Diastolic blood pressure 92 mm[Hg] Sue Weber MD Work Phone: [facility] 11-19-2023 13:21-0400 Systolic blood pressure 140 mm[Hg] Sue Weber MD Work Phone: [facility] 11-19-2023 13:18-0400 Body mass index (BMI) [Ratio] 42.23 kg/m2 Sue Weber MD Work Phone: [facility] 11-19-2023 13:18-0400 Body weight 108.14 kg Sue Weber MD Work Phone: [facility] 11-19-2023 13:18-0400 Heart rate 80 /min Sue Weber MD Work Phone: [facility] 11-19-2023 13:18-0400 Respiratory rate 18 /min Sue Weber MD Work Phone: [facility] 10-16-2023 08:32-0400 Diastolic blood pressure 86 mm[Hg] Sue Weber MD Work Phone: [facility] 10-16-2023 08:32-0400 Systolic blood pressure 156 mm[Hg] Sue Weber MD Work Phone: [facility] 10-16-2023 08:24-0400 Body mass index (BMI) [Ratio] 41.34 kg/m2 Sue Weber MD Work Phone: [facility] 10-16-2023 08:24-0400 Body weight 105.87 kg Sue Weber MD Work Phone: [facility] 10-16-2023 08:24-0400 Heart rate 80 /min Sue Weber MD Work Phone: [facility] 10-16-2023 08:24-0400 Respiratory rate 18 /min Sue Weber MD Work Phone: [facility] 10-09-2023 09:24-0400 Body height 160 cm Carly Lewis APRN.CLERICAL SUPERVISOR Work Phone: [facility] 10-09-2023 09:24-0400 Body mass index (BMI) [Ratio] 41.45 kg/m2 Carly Lewis OCEANOGRAPHER PHYSICAL.CLERICAL SUPERVISOR Work Phone: [facility] 10-09-2023 09:24-0400 Body weight 106.14 kg Carly Lewis OCEANOGRAPHER PHYSICAL.CLERICAL SUPERVISOR Work Phone: [facility] 10-09-2023 09:24-0400 Diastolic blood pressure 87 mm[Hg] Carly Lewis OCEANOGRAPHER PHYSICAL.CLERICAL SUPERVISOR Work Phone: [facility] 10-09-2023 09:24-0400 Heart rate 83 /min Carly Lewis OCEANOGRAPHER PHYSICAL.CLERICAL SUPERVISOR Work Phone: [facility] 10-09-2023 09:24-0400 Systolic blood pressure 167 mm[Hg] Carly Lewis OCEANOGRAPHER PHYSICAL.CLERICAL SUPERVISOR Work Phone: [facility] 09-29-2023 06:29-0400 Body temperature 96.6 [degF] [facility] 09-29-2023 06:29-0400 Diastolic blood pressure 83 mm[Hg] [facility] 09-29-2023 06:29-0400 Heart rate 82 /min [facility] 09-29-2023 06:29-0400 Respiratory rate 16 /min [facility] 09-29-2023 06:29-0400 SaO2% (BldA) [Mass fraction] 95 % [facility] 09-29-2023 06:29-0400 Systolic blood pressure 167 mm[Hg] [facility] 09-29-2023 05:57-0400 Body height 162.56 cm [facility] 09-29-2023 05:57-0400 Body mass index (BMI) [Ratio] 39.6 kg/m2 [facility] 09-29-2023 05:57-0400 Body weight 104.77 [facility] [facility] 09-09-2023 20:57-0400 Body temperature 98.7 [degF] [facility] 09-09-2023 20:57-0400 Diastolic blood pressure 82 mm[Hg] [facility] 09-09-2023 20:57-0400 Heart rate 110 /min [facility] 09-09-2023 20:57-0400 Respiratory rate 18 /min [facility] 09-09-2023 20:57-0400 SaO2% (BldA) [Mass fraction] 92 % [facility] 09-09-2023 20:57-0400 Systolic blood pressure 163 mm[Hg] [facility] 09-09-2023 18:48-0400 Body height 162.99 cm [facility] 09-09-2023 18:48-0400 Body mass index (BMI) [Ratio] 40.2 kg/m2 [facility] 09-09-2023 18:48-0400 Body weight 106.95 kg [facility] 08-12-2023 13:56-0400 Body temperature 98.01 [degF] Carly Lewis OCEANOGRAPHER PHYSICAL.CLERICAL SUPERVISOR Work Phone: [facility] 08-12-2023 13:56-0400 Diastolic blood pressure 90 mm[Hg] Carly Lewis OCEANOGRAPHER PHYSICAL.CLERICAL SUPERVISOR Work Phone: [facility] 08-12-2023 13:56-0400 Heart rate 82 /min Carly Lewis OCEANOGRAPHER PHYSICAL.CLERICAL SUPERVISOR Work Phone: [facility] 08-12-2023 13:56-0400 Respiratory rate 16 /min Carly Lewis OCEANOGRAPHER PHYSICAL.CLERICAL SUPERVISOR Work Phone: [facility] 08-12-2023 13:56-0400 SaO2% (BldA) [Mass fraction] 94 % Carly Lewis OCEANOGRAPHER PHYSICAL.CLERICAL SUPERVISOR Work Phone: [facility] 08-12-2023 13:56-0400 Systolic blood pressure 142 mm[Hg] Carly Lewis OCEANOGRAPHER PHYSICAL.CLERICAL SUPERVISOR Work Phone: [facility] 08-09-2023 13:01-0400 Body temperature 97.81 [degF] Hnag Parker APRN.CLERICAL SUPERVISOR Work Phone: [facility] 08-09-2023 13:01-0400 Body weight 108.4 kg Hang Parker APRN.CLERICAL SUPERVISOR Work Phone: [facility] 08-09-2023 13:01-0400 Diastolic blood pressure 72 mm[Hg] Hang Parker OCEANOGRAPHER PHYSICAL.CLERICAL SUPERVISOR Work Phone: [facility] 08-09-2023 13:01-0400 Heart rate 86 /min Hang Parker OCEANOGRAPHER PHYSICAL.CLERICAL SUPERVISOR Work Phone: [facility] 08-09-2023 13:01-0400 Respiratory rate 16 /min Hang Parker OCEANOGRAPHER PHYSICAL.CLERICAL SUPERVISOR Work Phone: [facility] 08-09-2023 13:01-0400 SaO2% (BldA) [Mass fraction] 95 % Hang Parker OCEANOGRAPHER PHYSICAL.CLERICAL SUPERVISOR Work Phone: [facility] 08-09-2023 13:01-0400 Systolic blood pressure 110 mm[Hg] Hang Parker OCEANOGRAPHER PHYSICAL.CLERICAL SUPERVISOR Work Phone: [facility] 07-06-2023 15:09-0500 Body temperature 98.91 [degF] Sue Weber MD Work Phone: [facility] 07-06-2023 15:09-0500 Body weight 107.37 kg Sue Weber MD Work Phone: [facility] 07-06-2023 15:09-0500 Diastolic blood pressure 80 mm[Hg] Sue Weber MD Work Phone: [facility] 07-06-2023 15:09-0500 Heart rate 84 /min Sue Weber MD Work Phone: [facility] 07-06-2023 15:09-0500 Respiratory rate 16 /min Sue Weber MD Work Phone: [facility] 07-06-2023 15:09-0500 SaO2% (BldA) [Mass fraction] 97 % Sue Weber MD Work Phone: [facility] 07-06-2023 15:09-0500 Systolic blood pressure 140 mm[Hg] Sue Weber MD Work Phone: [facility] 06-25-2023 13:57-0500 Diastolic blood pressure 82 mm[Hg] Sue Weber MD Work Phone: [facility] 06-25-2023 13:57-0500 Systolic blood pressure 142 mm[Hg] Sue Weber MD Work Phone: [facility] 06-25-2023 13:52-0500 Body temperature 97.81 [degF] Sue Weber MD Work Phone: [facility] 06-25-2023 13:52-0500 Body weight 107.05 kg Sue Weber MD Work Phone: [facility] 06-25-2023 13:52-0500 Heart rate 80 /min Sue Weber MD Work Phone: [facility] 06-25-2023 13:52-0500 Respiratory rate 18 /min Sue Weber MD Work Phone: [facility] 03-02-2023 15:06-0400 Body temperature 96.69 [degF] Gadiel Davis MD Work Phone: [facility] 03-02-2023 15:06-0400 Body weight 108.86 kg Gadiel Davis MD Work Phone: [facility] 03-02-2023 15:06-0400 Diastolic blood pressure 99 mm[Hg] Gadiel Davis MD Work Phone: [facility] 03-02-2023 15:06-0400 Heart rate 91 /min Gadiel Davis MD Work Phone: [facility] 03-02-2023 15:06-0400 SaO2% (BldA) [Mass fraction] 98 % Gadiel Davis MD Work Phone: [facility] 03-02-2023 15:06-0400 Systolic blood pressure 164 mm[Hg] Gadiel Davis MD Work Phone: [facility] 02-17-2023 12:55-0400 Body temperature 98.01 [degF] Corinna Toussaint APRN.CLERICAL SUPERVISOR Work Phone: [facility] 02-17-2023 12:55-0400 Body weight 107.05 kg Corinna Knoble OCEANOGRAPHER PHYSICAL.CLERICAL SUPERVISOR Work Phone: [facility] 02-17-2023 12:55-0400 Diastolic blood pressure 80 mm[Hg] Corinna Toussaint OCEANOGRAPHER PHYSICAL.CLERICAL SUPERVISOR Work Phone: [facility] 02-17-2023 12:55-0400 Heart rate 98 /min Corinna Toussaint OCEANOGRAPHER PHYSICAL.CLERICAL SUPERVISOR Work Phone: [facility] 02-17-2023 12:55-0400 Respiratory rate 18 /min Corinna Toussaint OCEANOGRAPHER PHYSICAL.CLERICAL SUPERVISOR Work Phone: [facility] 02-17-2023 12:55-0400 SaO2% (BldA) [Mass fraction] 96 % Corinna Toussaint OCEANOGRAPHER PHYSICAL.CLERICAL SUPERVISOR Work Phone: [facility] 02-17-2023 12:55-0400 Systolic blood pressure 142 mm[Hg] Corinna Toussaint OCEANOGRAPHER PHYSICAL.CLERICAL SUPERVISOR Work Phone: [facility] 02-11-2023 10:25-0400 Body temperature 98.01 [degF] Gianni Nair DO Work Phone: [facility] 02-11-2023 10:25-0400 Body weight 108.41 kg Gianni Nair DO Work Phone: [facility] 02-11-2023 10:25-0400 Diastolic blood pressure 72 mm[Hg] Gianni Nair DO Work Phone: [facility] 02-11-2023 10:25-0400 Heart rate 80 /min Gianni Nair DO Work Phone: [facility] 02-11-2023 10:25-0400 Respiratory rate 20 /min Gianni Nair DO Work Phone: [facility] 02-11-2023 10:25-0400 Systolic blood pressure 138 mm[Hg] Gianni Nair DO Work Phone: [facility] 01-28-2023 13:29-0400 Body height 162.[address] Sue Weber Work Phone: [facility] 01-28-2023 13:29-0400 Body mass index (BMI) [Ratio] 41 kg/m2 Dr. Sue Weber Work Phone: [facility] 01-28-2023 13:29-0400 Body temperature 97.5 [degF] Dr. Sue Weber Work Phone: [facility] 01-28-2023 13:29-0400 Body weight 108.[address] Sue Weber Work Phone: [facility] 01-28-2023 13:29-0400 Diastolic blood pressure 82 mm[Hg] Dr. Sue Weber Work Phone: [facility] 01-28-2023 13:29-0400 Heart rate 101 /min Dr. Sue Weber Work Phone: [facility] 01-28-2023 13:29-0400 Respiratory rate 20 /min Dr. Sue Weber Work Phone: [facility] 01-28-2023 13:29-0400 SaO2% (BldA) [Mass fraction] 96 % Dr. Sue Weber Work Phone: [facility] 01-28-2023 13:29-0400 Systolic blood pressure 162 mm[Hg] Dr. Sue Weber Work Phone: [facility] 01-19-2023 15:04-0400 Body weight 109.72 kg Sue Weber MD Work Phone: [facility] 01-19-2023 15:04-0400 Diastolic blood pressure 80 mm[Hg] Sue Weber MD Work Phone: [facility] 01-19-2023 15:04-0400 Heart rate 90 /min Sue Weber MD Work Phone: [facility] 01-19-2023 15:04-0400 Respiratory rate 16 /min Sue Weber MD Work Phone: [facility] 01-19-2023 15:04-0400 Systolic blood pressure 160 mm[Hg] Sue Weber MD Work Phone: [facility] 01-16-2023 22:27-0400 Body height 162.[address] Sue Weber Work Phone: [facility] 01-16-2023 22:27-0400 Body mass index (BMI) [Ratio] 41.7 kg/m2 Dr. Sue Weber Work Phone: [facility] 01-16-2023 22:27-0400 Body temperature 97.5 [degF] Dr. Sue Weber Work Phone: [facility] 01-16-2023 22:27-0400 Body weight 110.[address] Sue Weber Work Phone: [facility] 01-16-2023 22:27-0400 Diastolic blood pressure 85 mm[Hg] Dr. Sue Weber Work Phone: [facility] 01-16-2023 22:27-0400 Heart rate 98 /min Dr. uSe Weber Work Phone: [facility] 01-16-2023 22:27-0400 Respiratory rate 16 /min Dr. Sue Weber Work Phone: [facility] 01-16-2023 22:27-0400 SaO2% (BldA) [Mass fraction] 99 % Dr. Sue Weber Work Phone: [facility] 01-16-2023 22:27-0400 Systolic blood pressure 182 mm[Hg] Dr. Sue Weber Work Phone: [facility] 01-16-2023 16:18-0400 Body temperature 98.49 [degF] Suze Moreno APRN.CLERICAL SUPERVISOR Work Phone: [facility] 01-16-2023 16:18-0400 Body weight 110.5 kg Suze Moreno APRN.CLERICAL SUPERVISOR Work Phone: [facility] 01-16-2023 16:18-0400 Diastolic blood pressure 82 mm[Hg] Suze Moreno APRN.CLERICAL SUPERVISOR Work Phone: [facility] 01-16-2023 16:18-0400 Heart rate 78 /min Suze Moreno APRN.CLERICAL SUPERVISOR Work Phone: [facility] 01-16-2023 16:18-0400 Respiratory rate 18 /min Szue Moreno APRN.CLERICAL SUPERVISOR Work Phone: [facility] 01-16-2023 16:18-0400 SaO2% (BldA) [Mass fraction] 97 % Suze Moreno APRN.CLERICAL SUPERVISOR Work Phone: [facility] 01-16-2023 16:18-0400 Systolic blood pressure 128 mm[Hg] Suze Moreno APRN.CLERICAL SUPERVISOR Work Phone: [facility] 01-16-2023 14:01-0400 Body height 162.[address] Sue Weber Work Phone: [facility] 01-16-2023 14:01-0400 Body mass index (BMI) [Ratio] 42 kg/m2 Dr. Sue Weber Work Phone: [facility] 01-16-2023 14:01-0400 Body temperature 96.7 [degF] Dr. Sue Weber Work Phone: [facility] 01-16-2023 14:01-0400 Body weight 110.[address] Sue Weber Work Phone: [facility] 01-16-2023 14:01-0400 Diastolic blood pressure 67 mm[Hg] Dr. Sue Weber Work Phone: [facility] 01-16-2023 14:01-0400 Heart rate 93 /min Dr. Sue Weber Work Phone: [facility] 01-16-2023 14:01-0400 Respiratory rate 16 /min Dr. Sue Weber Work Phone: [facility] 01-16-2023 14:01-0400 SaO2% (BldA) [Mass fraction] 93 % Dr. Sue Weber Work Phone: [facility] 01-16-2023 14:01-0400 Systolic blood pressure 151 mm[Hg] Dr. Sue Weber Work Phone: [facility] 01-15-2023 15:05-0400 Diastolic blood pressure 90 mm[Hg] Gadiel Davis MD Work Phone: [facility] 01-15-2023 15:05-0400 Heart rate 71 /min Gadiel Davis MD Work Phone: [facility] 01-15-2023 15:05-0400 Systolic blood pressure 181 mm[Hg] Gadiel Davis MD Work Phone: [facility] 01-15-2023 14:59-0400 Body height 162 cm Gadiel Davis MD Work Phone: [facility] 01-15-2023 14:59-0400 Body temperature 97.81 [degF] Gadiel Davis MD Work Phone: [facility] 01-15-2023 14:59-0400 Body weight 111.58 kg Gadiel Davis MD Work Phone: [facility] 01-07-2023 15:59-0400 Diastolic blood pressure 82 mm[Hg] Carly Haagen OCEANOGRAPHER PHYSICAL.CLERICAL SUPERVISOR Work Phone: [facility] 01-07-2023 15:59-0400 Systolic blood pressure 152 mm[Hg] Carly Haagen OCEANOGRAPHER PHYSICAL.CLERICAL SUPERVISOR Work Phone: [facility] 01-07-2023 14:57-0400 Heart rate 92 /min Carly Haagen OCEANOGRAPHER PHYSICAL.CLERICAL SUPERVISOR Work Phone: [facility] 01-07-2023 14:57-0400 Respiratory rate 16 /min Carly Haagen OCEANOGRAPHER PHYSICAL.CLERICAL SUPERVISOR Work Phone: [facility] 01-07-2023 14:57-0400 SaO2% (BldA) [Mass fraction] 97 % Carly Haagen OCEANOGRAPHER PHYSICAL.CLERICAL SUPERVISOR Work Phone: [facility] 01-06-2023 14:57-0400 Body height 162.[address] Sue Weber Work Phone: [facility] 01-06-2023 14:52-0400 Body mass index (BMI) [Ratio] 41.7 kg/m2 Dr. Sue Weber Work Phone: [facility] 01-06-2023 14:52-0400 Body temperature 98.2 [degF] Dr. Sue Weber Work Phone: 2(838)[phone] [place] [address] 01-06-2023 14:52-0400 Body weight 110.[address] Sue Weber Work Phone: 5(232)[phone] [place] [address] 01-06-2023 14:52-0400 Diastolic blood pressure 83 mm[Hg] Dr. Sue Weber Work Phone: 8(577)[phone] [place] [address] 01-06-2023 14:52-0400 Heart rate 89 /min Dr. Sue Weber Work Phone: 2(133)[phone] [place] [address] 01-06-2023 14:52-0400 Respiratory rate 18 /min Dr. Sue Weber Work Phone: [facility] 01-06-2023 14:52-0400 SaO2% (BldA) [Mass fraction] 97 % Dr. Sue Weber Work Phone: [facility] 01-06-2023 14:52-0400 Systolic blood pressure 151 mm[Hg] Dr. Sue Weber Work Phone: [facility] 11-06-2022 13:01-0400 Body mass index (BMI) [Ratio] 41.5 kg/m2 Dr. Sue Weber Work Phone: [facility] 11-06-2022 13:01-0400 Body weight 109.[address] Sue Weber Work Phone: [facility] 09-26-2022 15:46-0400 Body weight 113.31 kg Seu Weber MD Work Phone: [facility] 09-26-2022 15:46-0400 Diastolic blood pressure 80 mm[Hg] Sue Weber MD Work Phone: [facility] 09-26-2022 15:46-0400 Heart rate 86 /min Sue Weber MD Work Phone: [facility] 09-26-2022 15:46-0400 Respiratory rate 18 /min Sue Weber MD Work Phone: [facility] 09-26-2022 15:46-0400 SaO2% (BldA) [Mass fraction] 96 % Sue Weber MD Work Phone: [facility] 09-26-2022 15:46-0400 Systolic blood pressure 138 mm[Hg] Sue Weber MD Work Phone: [facility] 09-24-2022 09:06-0400 Heart rate 86 /min [facility] 09-24-2022 09:06-0400 Respiratory rate 14 /min [facility] 09-24-2022 09:06-0400 SaO2% (BldA) [Mass fraction] 97 % [facility] 09-24-2022 06:58-0400 Body height 162.56 cm [facility] 09-24-2022 06:58-0400 Body mass index (BMI) [Ratio] 44.2 kg/m2 [facility] 09-24-2022 06:58-0400 Body temperature 96.1 [degF] [facility] 09-24-2022 06:58-0400 Body weight 116.9 kg [facility] 09-24-2022 06:58-0400 Diastolic blood pressure 65 mm[Hg] [facility] 09-24-2022 06:58-0400 Systolic blood pressure 171 mm[Hg] [facility] 07-21-2022 19:07-0500 Diastolic blood pressure 86 mm[Hg] Sue Weber MD Work Phone: [facility] 07-21-2022 19:07-0500 Systolic blood pressure 168 mm[Hg] Sue Weber MD Work Phone: [facility] 07-21-2022 19:06-0500 Body weight 111.58 kg Sue Weber MD Work Phone: [facility] 07-21-2022 19:06-0500 Heart rate 100 /min Sue Weber MD Work Phone: [facility] 07-21-2022 19:06-0500 Respiratory rate 16 /min Sue Weber MD Work Phone: [facility] 07-04-2022 13:18-0500 Body temperature 97.81 [degF] Sue Weber MD Work Phone: [facility] 07-04-2022 13:18-0500 Body weight 114.99 kg Sue Weber MD Work Phone: [facility] 07-04-2022 13:18-0500 Diastolic blood pressure 88 mm[Hg] Sue Weber MD Work Phone: [facility] 07-04-2022 13:18-0500 Heart rate 72 /min Sue Weber MD Work Phone: [facility] 07-04-2022 13:18-0500 Respiratory rate 18 /min Sue Weber MD Work Phone: [facility] 07-04-2022 13:18-0500 SaO2% (BldA) [Mass fraction] 98 % Sue Weber MD Work Phone: [facility] 07-04-2022 13:18-0500 Systolic blood pressure 140 mm[Hg] Sue Weber MD Work Phone: [facility] 04-01-2022 15:25-0500 Body weight 113.9 kg Sue Weber MD Work Phone: [facility] 04-01-2022 15:25-0500 Diastolic blood pressure 72 mm[Hg] Sue Weber MD Work Phone: [facility] 04-01-2022 15:25-0500 Heart rate 78 /min Sue Weber MD Work Phone: [facility] 04-01-2022 15:25-0500 Respiratory rate 16 /min Sue Weber MD Work Phone: [facility] 04-01-2022 15:25-0500 Systolic blood pressure 126 mm[Hg] Sue Weber MD Work Phone: [facility] 03-30-2022 13:49-0500 Body temperature 98.2 [degF] Suze Moreno APRN.CLERICAL SUPERVISOR Work Phone: [facility] 03-30-2022 13:49-0500 Body weight 114.76 kg Suze Moreno APRN.CLERICAL SUPERVISOR Work Phone: [facility] 03-30-2022 13:49-0500 Diastolic blood pressure 70 mm[Hg] Suze Moreno APRN.CLERICAL SUPERVISOR Work Phone: [facility] 03-30-2022 13:49-0500 Heart rate 106 /min Suze Moreno APRN.CLERICAL SUPERVISOR Work Phone: [facility] 03-30-2022 13:49-0500 Respiratory rate 18 /min Suze Moreno APRN.CLERICAL SUPERVISOR Work Phone: [facility] 03-30-2022 13:49-0500 SaO2% (BldA) [Mass fraction] 96 % Suze Moreno APRN.CLERICAL SUPERVISOR Work Phone: [facility] 03-30-2022 13:49-0500 Systolic blood pressure 138 mm[Hg] Suze Moreno APRN.CLERICAL SUPERVISOR Work Phone: [facility] 03-17-2022 17:44-0400 Body temperature 98.29 [degF] Suze Moreno APRN.CLERICAL SUPERVISOR Work Phone: [facility] 03-17-2022 17:44-0400 Body weight 115.21 kg Suze Moreno APRN.CLERICAL SUPERVISOR Work Phone: [facility] 03-17-2022 17:44-0400 Diastolic blood pressure 100 mm[Hg] Suze Moreno APRN.CLERICAL SUPERVISOR Work Phone: [facility] 03-17-2022 17:44-0400 Heart rate 90 /min Suze Moreno APRN.CLERICAL SUPERVISOR Work Phone: [facility] 03-17-2022 17:44-0400 Respiratory rate 20 /min Suze Moreno APRN.CLERICAL SUPERVISOR Work Phone: [facility] 03-17-2022 17:44-0400 SaO2% (BldA) [Mass fraction] 99 % Suze Moreno APRN.CLERICAL SUPERVISOR Work Phone: [facility] 03-17-2022 17:44-0400 Systolic blood pressure 182 mm[Hg] Suze Moreno APRN.CLERICAL SUPERVISOR Work Phone: [facility] 02-21-2022 15:59-0400 Body weight 116.57 kg Sue Weber MD Work Phone: [facility] 02-21-2022 15:59-0400 Diastolic blood pressure 90 mm[Hg] Sue Weber MD Work Phone: [facility] 02-21-2022 15:59-0400 Heart rate 88 /min Sue Weber MD Work Phone: [facility] 02-21-2022 15:59-0400 Respiratory rate 18 /min Sue Weber MD Work Phone: [facility] 02-21-2022 15:59-0400 SaO2% (BldA) [Mass fraction] 97 % Sue Weber MD Work Phone: [facility] 02-21-2022 15:59-0400 Systolic blood pressure 144 mm[Hg] Sue Weber MD Work Phone: [facility] 01-27-2022 15:09-0400 Body temperature 97.11 [degF] Suze Moreno APRN.CLERICAL SUPERVISOR Work Phone: [facility] 01-27-2022 15:09-0400 Body weight 114.85 kg Suze Moreno APRN.CLERICAL SUPERVISOR Work Phone: [facility] 01-27-2022 15:09-0400 Diastolic blood pressure 72 mm[Hg] Suze Moreno APRN.CLERICAL SUPERVISOR Work Phone: [facility] 01-27-2022 15:09-0400 Heart rate 91 /min Suze Moreno APRN.CLERICAL SUPERVISOR Work Phone: [facility] 01-27-2022 15:09-0400 Respiratory rate 21 /min Suze Moreno APRN.CLERICAL SUPERVISOR Work Phone: [facility] 01-27-2022 15:09-0400 SaO2% (BldA) [Mass fraction] 96 % Suze Moreno APRN.CLERICAL SUPERVISOR Work Phone: [facility] 01-27-2022 15:09-0400 Systolic blood pressure 162 mm[Hg] Suze Moreno APRN.CLERICAL SUPERVISOR Work Phone: [facility] 12-30-2021 15:04-0400 Body weight 115.21 kg Sue Weber MD Work Phone: [facility] 12-30-2021 15:04-0400 Diastolic blood pressure 74 mm[Hg] Sue Weber MD Work Phone: [facility] 12-30-2021 15:04-0400 Heart rate 82 /min Sue Weber MD Work Phone: [facility] 12-30-2021 15:04-0400 Respiratory rate 16 /min Sue Weber MD Work Phone: [facility] 12-30-2021 15:04-0400 Systolic blood pressure 116 mm[Hg] Sue Weber MD Work Phone: [facility] 12-24-2021 13:43-0400 Body temperature 97.59 [degF] Burke Snider OCEANOGRAPHER PHYSICAL.CLERICAL SUPERVISOR Work Phone: [facility] 12-24-2021 13:43-0400 Body weight 114.31 kg Burke Snider OCEANOGRAPHER PHYSICAL.CLERICAL SUPERVISOR Work Phone: [facility] 12-24-2021 13:43-0400 Diastolic blood pressure 76 mm[Hg] Burke Snider OCEANOGRAPHER PHYSICAL.CLERICAL SUPERVISOR Work Phone: [facility] 12-24-2021 13:43-0400 Heart rate 100 /min Burke Snider APRN.CLERICAL SUPERVISOR Work Phone: [facility] 12-24-2021 13:43-0400 Respiratory rate 16 /min Burke Snider OCEANOGRAPHER PHYSICAL.CLERICAL SUPERVISOR Work Phone: [facility] 12-24-2021 13:43-0400 Systolic blood pressure 138 mm[Hg] Burke Snider OCEANOGRAPHER PHYSICAL.CLERICAL SUPERVISOR Work Phone: [facility] 12-03-2021 14:49-0400 Body height 162.[address] Sue Weber Work Phone: [facility] Work Phone: 12-03-2021 14:49-0400 Body mass index (BMI) [Ratio] 43.9 kg/m2 Dr. Sue Weber Work Phone: [facility] Work Phone: 12-03-2021 14:49-0400 Body temperature 99 [degF] Dr. Sue Weber Work Phone: [facility] Work Phone: 12-03-2021 14:49-0400 Body weight 116.[address] Sue Weber Work Phone: [facility] Work Phone: 12-03-2021 14:49-0400 Diastolic blood pressure 85 mm[Hg] Dr. Sue Weber Work Phone: [facility] Work Phone: 12-03-2021 14:49-0400 Heart rate 100 /min Dr. Sue Weber Work Phone: [facility] Work Phone: 12-03-2021 14:49-0400 Respiratory rate 18 /min Dr. Sue Weber Work Phone: [facility] Work Phone: 12-03-2021 14:49-0400 SaO2% (BldA) [Mass fraction] 95 % Dr. Sue Weber Work Phone: [facility] Work Phone: 12-03-2021 14:49-0400 Systolic blood pressure 146 mm[Hg] Dr. Sue Weber Work Phone: [facility] Work Phone: 11-26-2021 11:36-0400 Body weight 116.67 kg Sue Weber MD Work Phone: [facility] 11-26-2021 11:36-0400 Diastolic blood pressure 88 mm[Hg] Sue Weber MD Work Phone: [facility] 11-26-2021 11:36-0400 Heart rate 84 /min Sue Weber MD Work Phone: [facility] 11-26-2021 11:36-0400 Respiratory rate 18 /min Sue Weber MD Work Phone: [facility] 11-26-2021 11:36-0400 Systolic blood pressure 138 mm[Hg] Sue Weber MD Work Phone: [facility] 11-18-2021 16:25-0400 Diastolic blood pressure 68 mm[Hg] Naila Zurawick OCEANOGRAPHER PHYSICAL.CLERICAL SUPERVISOR Work Phone: [facility] 11-18-2021 16:25-0400 Systolic blood pressure 160 mm[Hg] Naila Zurawick OCEANOGRAPHER PHYSICAL.CLERICAL SUPERVISOR Work Phone: [facility] 11-18-2021 15:12-0400 Body weight 115.94 kg Naila Zurawick OCEANOGRAPHER PHYSICAL.CLERICAL SUPERVISOR Work Phone: [facility] 11-18-2021 15:12-0400 Heart rate 106 /min Naila Zurawick OCEANOGRAPHER PHYSICAL.CLERICAL SUPERVISOR Work Phone: [facility] 11-18-2021 15:12-0400 Respiratory rate 18 /min Naila Zurawick OCEANOGRAPHER PHYSICAL.CLERICAL SUPERVISOR Work Phone: [facility] 06-14-2020 15:13-0500 Body mass index (BMI) [Ratio] 44.7 kg/m2 Dr. Sue Weber Work Phone: [facility] 06-14-2020 15:13-0500 Body temperature 97.6 [degF] Dr. Sue Weber Work Phone: [facility] 06-14-2020 15:13-0500 Body weight 120.[address] Sue Weber Work Phone: [facility] Work Phone: 06-14-2020 15:13-0500 Diastolic blood pressure 94 mm[Hg] Dr. Sue Weber Work Phone: [facility] 06-14-2020 15:13-0500 Heart rate 114 /min Dr. Sue Weber Work Phone: [facility] 06-14-2020 15:13-0500 Respiratory rate 17 /min Dr. Sue Weber Work Phone: [facility] 06-14-2020 15:13-0500 SaO2% (BldA) [Mass fraction] 92 % Dr. Sue Weber Work Phone: [facility] 06-14-2020 15:13-0500 Systolic blood pressure 162 mm[Hg] Dr. Sue Weber Work Phone: [facility] Encounters Encounter Date Encounter Type Care Provider Facility Start: 10-31-2024 End: 10-31-2024 Office outpatient visit 15 minutes Sue Weber MD Work Phone: [facility] [place] Comment on above: Tooth infection (Shweta say Dx); Vaginal yeast infection Start: 10-31-2024 End: 11-01-2024 Refill Gadiel Davis MD Work Phone: Hematology/Oncology Comment on above: Refill Request Start: 10-30-2024 End: 10-30-2024 Telemedicine consultation with patient Niecy Shay BIJAN Work Phone: Telemedicine Comment on above: Vaginal discharge (P rimary Dx); Vaginal itching; Vagina itching Start: 10-30-2024 End: 10-30-2024 ambulatory SUE WEBER Facility:[facility] Start: 10-16-2024 End: 10-16-2024 Office outpatient visit 15 minutes Judith Mcpherson OCEANOGRAPHER PHYSICAL.CLERICAL SUPERVISOR Work Phone: Telemedicine Comment on above: Acute vaginitis (Shweta say Dx) Start: 10-16-2024 End: 10-16-2024 ambulatory JUDITH MCPHERSON Facility:[facility] Start: 10-03-2024 End: 10-03-2024 Office outpatient visit 15 minutes Maude Reeves PA-C Work Phone: [facility] [place] Comment on above: Hordeolum externum o f left lower eyelid (Primary Dx); Allergic conjunctivitis, bilateral Start: 10-03-2024 End: 10-03-2024 ambulatory SUE WEBER Facility:[facility] Start: 08-31-2024 End: 11-03-2024 Telephone encounter Gadiel Davis MD Work Phone: Hematology/Oncology Comment on above: avs 08/31 Start: 08-31-2024 End: 08-31-2024 ambulatory Gadiel Davis MD Work Phone: Hematology/Oncology Comment on above: Mast cell activation (HCC) (Primary Dx) Start: 08-31-2024 End: 08-31-2024 Patient encounter procedure Gadiel Davis MD Work Phone: Hematology/Oncology Start: 08-22-2024 End: 08-23-2024 Telephone encounter Gadiel Davis MD Work Phone: Hematology/Oncology Comment on above: AVS 08/22 Start: 08-22-2024 End: 08-22-2024 ambulatory Gadiel Davis MD Work Phone: Hematology/Oncology Comment on above: Mast cell activation (HCC) (Primary Dx); Essential thrombocythemia (HCC) Start: 08-22-2024 End: 08-22-2024 Patient encounter procedure Gadiel Davis MD Work Phone: Hematology/Oncology Start: 08-11-2024 End: 08-15-2024 ambulatory Sue Weber MD Work Phone: [facility] [place] Comment on above: Paper work Start: 08-10-2024 End: 08-11-2024 Refill Sue Weber MD Work Phone: [facility] Comment on above: Refill Request Start: 08-05-2024 End: 08-05-2024 Telephone encounter Gadiel Davis MD Work Phone: Hematology/Oncology Start: 08-02-2024 End: 08-02-2024 ambulatory [facility] Facility:[facility] Start: 08-02-2024 End: 08-02-2024 Patient encounter procedure Sue Weber MD Work Phone: [facility] [place] Comment on above: Rash (Primary Dx) Start: 07-30-2024 End: 07-30-2024 Emergency department patient visit [facility] Start: 07-29-2024 End: 08-02-2024 ambulatory Sue Weber MD Work Phone: [facility] [place] Comment on above: Recent Visit Start: 07-28-2024 End: 07-28-2024 ambulatory [facility] Facility:[facility] Start: 07-28-2024 End: 07-28-2024 Patient encounter procedure Sue Weber MD Work Phone: [facility] [place] Comment on above: Acute non-recurrent sinusitis, unspecified location (Primary Dx); Adjustment disorder with depressed mood; Essential hypertension, benign; Essential thrombocythemia (HCC) Start: 07-25-2024 End: 07-25-2024 Telephone encounter Gadiel Davis MD Work Phone: Hematology/Oncology Comment on above: Appointment Start: 07-04-2024 End: 07-04-2024 ambulatory [facility] Start: 07-04-2024 End: 07-04-2024 Patient encounter procedure Sue Weber MD Work Phone: [facility] [place] Comment on above: Sore throat (Primary Dx); Sinus congestion; Yeast infection; Dermatitis; Vaginal yeast infection Start: 06-21-2024 End: 06-21-2024 ambulatory [facility] Facility:[facility] Start: 06-21-2024 End: 06-21-2024 Patient encounter procedure Sue Weber MD Work Phone: [facility] Comment on above: Left arm pain (Prima ry Dx) Start: 06-07-2024 End: 06-07-2024 Patient encounter procedure JULIETTE BRIAN [facility] -[facility] , [place] Work Phone: Start: 06-07-2024 End: 06-07-2024 ambulatory JULIETTE BRIAN Facility:[facility] Start: 06-03-2024 End: 06-03-2024 ambulatory [facility] Facility:[facility] Start: 06-03-2024 End: 06-03-2024 Patient encounter procedure Sue Weber MD Work Phone: [facility] Comment on above: Hypothyroidism, unsp ecified type (Primary Dx); Gastroesophageal reflux disease without esophagitis; Generalized anxiety disorder; Adjustment disorder with depressed mood; Essential hypertension, benign; Dermatitis Start: 06-01-2024 End: 06-01-2024 ambulatory [facility] Start: 05-11-2024 End: 05-11-2024 Patient encounter procedure Chavo LAUREN [facility] Work Phone: Start: 05-11-2024 End: 05-11-2024 ambulatory Chavo LAUREN [facility] Start: 05-10-2024 End: 05-11-2024 Refill Gadiel Davis MD Work Phone: Hematology/Oncology Comment on above: Refill Request Start: 04-28-2024 End: 04-28-2024 ambulatory [facility]UE [facility] Facility:[facility] Start: 04-28-2024 End: 04-28-2024 Patient encounter procedure Sue Weber MD Work Phone: [facility] Comment on above: Viral syndrome (Prim terrence Dx); Pain with urination Start: 04-22-2024 End: 04-22-2024 Patient encounter status Sue Weber MD Work Phone: [facility] Work Phone: Start: 04-22-2024 End: 04-22-2024 Refill Sue Weber MD Work Phone: [facility] [place] Comment on above: Refill Request Bacterial conjunctiv itis (Primary Dx); Yeast infection; Encounter for routine eye and vision examination Start: 03-25-2024 End: 03-25-2024 ambulatory [facility] Facility:[facility] Start: 03-25-2024 End: 03-25-2024 Office outpatient visit 15 minutes Hang Parker APRN.CNP Work Phone: [facility] Comment on above: Bacterial conjunctiv itis (Primary Dx) Start: 03-21-2024 End: 03-21-2024 Patient encounter procedure Bhupinder Castañeda MD Work Phone: [facility] Comment on above: Dysuria (Primary Dx) ; Renal oncocytoma, left; Overactive bladder; Essential hypertension, benign Start: 03-21-2024 End: 03-21-2024 ambulatory BHUPINDER CASTAÑEDA Facility:[facility] Start: 02-25-2024 End: 02-25-2024 ambulatory [facility] Facility:[facility] Start: 02-25-2024 End: 02-25-2024 Patient encounter procedure Sue Weber MD Work Phone: [facility] Comment on above: Bacterial conjunctiv itis (Primary Dx); Acute non-recurrent sinusitis, unspecified location; Vaginal yeast infection Start: 02-23-2024 End: 02-23-2024 ambulatory [facility] Facility:[facility] Start: 02-23-2024 End: 02-23-2024 Office outpatient visit 25 minutes Sue Weber MD Work Phone: [facility] Comment on above: Essential hypertensi on, benign (Primary Dx); Screening for depression; Screening for colon cancer; Hypothyroidism, unspecified type; Generalized anxiety disorder; Adjustment disorder with depressed mood; Gastroesophageal reflux disease without esophagitis Start: 02-20-2024 End: 02-20-2024 ambulatory GADIEL DAVIS Facility:[facility] Start: 02-17-2024 End: 02-17-2024 Office outpatient visit 25 minutes Carly Haagen OCEANOGRAPHER PHYSICAL.CLERICAL SUPERVISOR Work Phone: [facility] Comment on above: Sinobronchitis (Prim terrence Dx); SHEYLA (generalized anxiety disorder); Essential hypertension, benign Start: 02-17-2024 End: 02-17-2024 ambulatory [facility] Facility:[facility] Start: 02-16-2024 End: 02-16-2024 ambulatory Sue Weber MD Work Phone: [facility] Comment on above: Palpitations Start: 02-15-2024 End: 02-15-2024 Emergency department patient visit Sue Weber Facility:[facility] Start: 02-15-2024 End: 02-15-2024 Office outpatient visit 25 minutes Carly Haagen OCEANOGRAPHER PHYSICAL.CLERICAL SUPERVISOR Work Phone: [facility] Comment on above: Essential hypertensi on, benign (Primary Dx); Sinobronchitis; Chest heaviness; SHEYLA (generalized anxiety disorder) Start: 02-15-2024 End: 02-16-2024 ambulatory Carly Haagen OCEANOGRAPHER PHYSICAL.CLERICAL SUPERVISOR Work Phone: [facility] Comment on above: New Prescription Start: 02-10-2024 End: 02-10-2024 ambulatory Carly leonel OCEANOGRAPHER PHYSICAL.CLERICAL SUPERVISOR Work Phone: [facility] Comment on above: Test Results Start: 02-09-2024 End: 02-09-2024 [facility] Start: 02-09-2024 End: 02-09-2024 Subsequent hospital visit by physician Xr [facility] Work Phone: Radiology Comment on above: Sinobronchitis [J32. 9, J40] Start: 02-08-2024 End: 02-08-2024 Office outpatient visit 25 minutes Carly Haagen OCEANOGRAPHER PHYSICAL.CLERICAL SUPERVISOR Work Phone: [facility] Comment on above: Sinobronchitis (Prim terrence Dx); Elevated blood pressure reading without diagnosis of hypertension; Cutaneous candidiasis Start: 02-08-2024 End: 02-08-2024 ambulatory [facility] Facility:[facility] Start: 02-06-2024 End: 02-06-2024 ambulatory [facility] Start: 02-04-2024 End: 02-04-2024 Patient encounter procedure Corinna Toussaint APRN.CLERICAL SUPERVISOR Work Phone: [facility] Comment on above: Bacterial sinusitis (Primary Dx) Start: 02-04-2024 End: 02-04-2024 ambulatory CORNINA TOUSSAINT Facility:[facility] Start: 02-03-2024 End: 02-08-2024 ambulatory Sue Weber MD Work Phone: [facility] Comment on above: Recent Upper Respira tory Issue Start: 02-01-2024 End: 02-01-2024 ambulatory GLENDA OMER Facility:[facility] Start: 02-01-2024 End: 02-01-2024 Subsequent hospital visit by physician X[facility] [place] Work Phone: Radiology Comment on above: Acute cough [R05.1] Start: 02-01-2024 End: 02-01-2024 Telephone encounter Juli Holman APRN.CLERICAL SUPERVISOR Work Phone: [facility] Comment on above: Results Start: 01-31-2024 End: 01-31-2024 [facility] Facility:[facility] Start: 01-31-2024 End: 01-31-2024 Patient encounter procedure Glenda Omer OCEANOGRAPHER PHYSICAL.CLERICAL SUPERVISOR Work Phone: [facility] Comment on above: Nasal congestion (Pr imary Dx); Acute cough Start: 01-30-2024 End: 01-30-2024 [facility] Facility:[facility] Start: 01-30-2024 End: 01-30-2024 Telemedicine consultation with patient Osman Agee OCEANOGRAPHER PHYSICAL.CLERICAL SUPERVISOR Work Phone: Telemedicine Comment on above: Viral URI with cough (Primary Dx) Start: 01-27-2024 End: 01-27-2024 Refill Burke Snider APRN.CLERICAL SUPERVISOR Work Phone: [facility] Comment on above: Refill Request Start: 01-19-2024 End: 01-19-2024 Telemedicine consultation with patient Sue Weber MD Work Phone: [facility] [place] Start: 01-19-2024 End: 01-19-2024 ambulatory Sue Weber MD Work Phone: [facility] Comment on above: Gastritis with hemor rhage, unspecified chronicity, unspecified gastritis type (Primary Dx) Start: 01-19-2024 End: 01-19-2024 Patient encounter procedure Sue Weber MD Work Phone: [facility] Comment on above: todays appointment Start: 01-15-2024 End: 01-15-2024 Refill Christopher Sullivan DO Work Phone: Hematology/Oncology Comment on above: Refill Request Start: 01-14-2024 End: 01-14-2024 ambulatory SUE WEBER Facility:[facility] Start: 01-14-2024 End: 01-14-2024 Patient encounter procedure Sue Weber MD Work Phone: [facility] Comment on above: RLQ abdominal pain ( Primary Dx); Generalized anxiety disorder; Essential hypertension, benign; Essential thrombocythemia (HCC); Chronic myeloproliferative disorder (HCC) Start: 01-11-2024 End: 01-11-2024 Emergency department patient visit Yefri Matt Facility:[facility] Start: 12-30-2023 Refill Sue perkins MD Work Phone: [facility] Comment on above: Refill Request Start: 12-11-2023 Refill Sue perkins MD Work Phone: [facility] Comment on above: Refill Request Start: 12-09-2023 End: 12-09-2023 Emergency department patient visit Timothy Quinteros Facility:[facility] Start: 12-04-2023 Telephone encounter Sue corrigan MD Work Phone: [facility] Comment on above: Medication Request Start: 12-02-2023 Refill Burke CONNER RN.CLERICAL SUPERVISOR Work Phone: [facility] Comment on above: Refill Request Start: 11-29-2023 Telephone encounter Hang deleon APRN.CLERICAL SUPERVISOR Work Phone: [facility] Comment on above: Results Start: 11-27-2023 End: 11-27-2023 ambulatory [facility] Facility:[facility] Start: 11-27-2023 End: 11-27-2023 Office outpatient visit 25 minutes Hang Parker OCEANOGRAPHER PHYSICAL.CLERICAL SUPERVISOR Work Phone: [facility] Comment on above: Urinary urgency (Shweta say Dx); Viral illness Start: 11-19-2023 End: 11-19-2023 ambulatory [facility] Facility:[facility] Start: 11-19-2023 End: 11-19-2023 Patient encounter procedure Sue Weber MD Work Phone: [facility] Comment on above: Anxiety about health (Primary Dx); Elevated alkaline phosphatase level; Elevated LFTs; Dermatitis; Primary insomnia; Iron deficiency anemia, unspecified iron deficiency anemia type; Chronic myeloproliferative disorder (HCC) Start: 11-16-2023 End: 11-16-2023 [facility] Facility:[facility] Start: 10-16-2023 End: 10-16-2023 Patient encounter procedure Sue Weber MD Work Phone: [facility] Comment on above: Anxiety (Primary Dx) ; Anxiety about health; Elevated alkaline phosphatase level; Elevated LFTs; Elevated blood pressure reading without diagnosis of hypertension Start: 10-09-2023 ambulatory Carly Lewis APRN.CLERICAL SUPERVISOR Work Phone: [facility] Comment on above: Test Results Start: 10-09-2023 End: 10-09-2023 Office outpatient visit 15 minutes Carly Lewis APRN.CLERICAL SUPERVISOR Work Phone: [facility] Comment on above: Elevated alkaline ph osphatase level (Primary Dx); Dermatitis Start: 10-01-2023 Refill Burke CONNER RN.BUD Work Phone: [facility] Comment on above: Refill Request Start: 09-29-2023 End: 09-29-2023 Emergency department patient visit [facility] Work Phone: Start: 09-21-2023 End: 09-21-[address] [facility] Work Phone: Start: 09-21-2023 End: 09-21-2023 Patient encounter procedure [facility] [place] Work Phone: Start: 09-21-2023 End: 09-21-2023 ambulatory Aris Rai Facility:[facility] Start: 09-10-2023 Telephone encounter Sue corrigan MD Work Phone: Internal Medicine [place] Comment on above: Rash (needs a consul t placed for Derm at [facility]) Start: 09-09-2023 End: 09-09-2023 Emergency department patient visit [facility] Work Phone: Start: 08-31-2023 ambulatory Sue perkins MD Work Phone: [facility] [place] Comment on above: Update Start: 08-27-2023 End: 08-27-2023 ambulatory Sue Weber MD Work Phone: [facility] [place] Comment on above: Upper respiratory tr act infection, unspecified type (Primary Dx); Situational anxiety; Lymphadenopathy, cervical Start: 08-27-2023 End: 08-27-2023 Telemedicine consultation with patient Sue Weber MD Work Phone: [facility] [place] Start: 08-14-2023 ambulatory Carly Lewis APRN.CLERICAL SUPERVISOR Work Phone: [facility] [place] Comment on above: Update Start: 08-12-2023 End: 08-12-2023 Office outpatient visit 25 minutes Carly Lewis APRN.CLERICAL SUPERVISOR Work Phone: [facility] [place] Comment on above: Fever, unspecified f ever cause (Primary Dx); Cutaneous candidiasis; Hypothyroidism, unspecified type Start: 08-10-2023 ambulatory Sue perkins MD Work Phone: [facility] [place] Comment on above: Was seen at urgent [facility] Start: 08-09-2023 End: 08-09-2023 Office outpatient visit 15 minutes Hang Parker APRN.CLERICAL SUPERVISOR Work Phone: [facility] Comment on above: Intertrigo (Primary Dx) Start: 07-27-2023 Refill Sue perkins MD Work Phone: [facility] [place] Comment on above: Refill Request Start: 07-17-2023 End: 07-17-2023 ambulatory Sue Weber MD Work Phone: [facility] [place] Comment on above: Bacterial sinusitis (Primary Dx) Start: 07-17-2023 End: 07-17-2023 Telemedicine consultation with patient Sue Weber MD Work Phone: [facility] Start: 07-14-2023 ambulatory Sue perkins MD Work Phone: [facility] [place] Comment on above: Still having symptom s. Start: 07-06-2023 End: 07-06-2023 Patient encounter procedure Sue Weber MD Work Phone: [facility] [place] Comment on above: [id number] condit ion (Primary Dx) Start: 06-26-2023 Telephone encounter Burke flores APRN.CLERICAL SUPERVISOR Work Phone: [facility] [place] Comment on above: Results Start: 06-25-2023 End: 06-25-2023 Patient encounter procedure Sue Weber MD Work Phone: [facility] [place] Comment on above: Upset stomach (Prima ry Dx); Diarrhea, unspecified type; Body aches; Fever, unspecified fever cause; Situational anxiety Start: 03-23-2023 End: 03-23-2023 [facility] Gadiel Davis MD Work Phone: Hematology/Oncology Comment on above: Other iron deficienc y anemia (Primary Dx); Chronic myeloproliferative disorder (HCC); Essential thrombocythemia (HCC) Start: 03-12-2023 ambulatory Gadiel fitzpatrick MD Work Phone: Hematology/Oncology Comment on above: Chewable Iron Start: 03-02-2023 End: 03-02-2023 ambulatory Gadiel Davis MD Work Phone: Hematology/Oncology Comment on above: Essential thrombocyt hemia (HCC) (Primary Dx) Start: 03-02-2023 End: 03-02-2023 Patient encounter procedure Gadiel Davis MD Work Phone: [facility] Start: 02-24-2023 ambulatory Sue perkins MD Work Phone: [facility] [place] Comment on above: Antibiotics Start: 02-24-2023 Telephone encounter Gadiel cortes MD Work Phone: Hematology/Oncology Comment on above: Appointment; Patient Update Start: 02-17-2023 End: 02-17-2023 Subsequent hospital visit by physician Xr [facility] Work Phone: Radiology Comment on above: Acute cough [R05.1] Start: 02-17-2023 End: 02-17-2023 Patient encounter procedure Corinna Toussaint APRN.CLERICAL SUPERVISOR Work Phone: [facility] [place] Comment on above: Community acquired p neumonia, unspecified laterality (Primary Dx); Acute cough Start: 02-16-2023 Telephone encounter Sue corrigan MD Work Phone: [facility] Comment on above: Results/patient upda te Start: 02-13-2023 Telephone encounter Financial Navigator Conor Work Phone: Financial Services Comment on above: Benefits Investigati on Start: 02-12-2023 End: 02-12-2023 Subsequent hospital visit by physician Xr [facility] [place] Work Phone: Radiology Comment on above: Acute cough [R05.1] Start: 02-12-2023 Telephone encounter Sue corrigan MD Work Phone: [facility] Comment on above: pt update on illness /work excuse needed Start: 02-11-2023 End: 02-11-2023 Patient encounter procedure Gianni Nair DO Work Phone: [facility] Comment on above: Acute cough (Primary Dx) Start: 01-28-2023 End: 01-28-2023 Emergency department [facility] Start: 01-19-2023 End: 01-19-2023 Patient encounter procedure Sue Weber MD Work Phone: [facility] Comment on above: Rash (Primary Dx); Vaginal yeast infection Start: 01-16-2023 End: 01-16-2023 Emergency department patient [facility] Dr. Sue Weber [facility] Start: 01-16-2023 End: 01-16-2023 Patient encounter procedure Suze Moreno APRN.CLERICAL SUPERVISOR Work Phone: [facility] Comment on above: Itching (Primary Dx) ; Allergic contact dermatitis due to plants, except food Start: 01-16-2023 End: 01-16-2023 Emergency department patient [facility] Dr. Sue Weber [facility] Start: 01-16-2023 ambulatory Fe Pappas RN NURSE O N CALL Comment on above: Abdominal Pain Start: 01-15-2023 End: 01-15-2023 ambulatory Gadiel Davis MD Work Phone: Hematology/Oncology Comment on above: Essential thrombocyt hemia (HCC) (Primary Dx) Start: 01-15-2023 End: 01-15-2023 Patient encounter procedure Gadiel Davis MD Work Phone: [facility] Start: 01-07-2023 End: 01-07-2023 Office outpatient visit 15 minutes Carly Lewis APRN.CLERICAL SUPERVISOR Work Phone: [facility] Comment on above: Thumb pain, left (Pr imary Dx) Start: 01-07-2023 Telephone encounter Gadiel cortes MD Work Phone: Hematology/Oncology Comment on above: Appointment Start: 01-06-[address] Sue Weber Work Phone: [facility] Start: 01-06-2023 End: 01-06-[address] Sue Weber Work Phone: [facility] Work Phone: Start: 12-31-2022 End: 12-31-[address] Sue Weber Work Phone: [facility] Work Phone: Start: 12-31-2022 End: 12-31-[address] Sue Weber Work Phone: [facility] Work Phone: Start: 12-31-2022 Chart abstracting Sue miller MD Work Phone: [facility] Comment on above: outside imaging Start: 12-24-2022 End: 12-24-2022 Office outpatient visit 15 minutes Carly Lewis OCEANOGRAPHER PHYSICAL.CLERICAL SUPERVISOR Work Phone: [facility] Comment on above: Jittery (Primary Dx) ; Screening for hyperlipidemia; Hypothyroidism, unspecified type; Essential thrombocythemia (HCC); Impaired glucose tolerance; Visit for screening mammogram Start: 12-22-2022 Telephone encounter Sue corrigan MD Work Phone: [facility] Comment on above: Orders Start: 11-06-2022 End: 11-06-[address] Sue Weber Work Phone: [facility] Work Phone: Start: 10-30-2022 End: 10-30-2022 Patient encounter procedure Yefri Echavarria MD Work Phone: Orthopaedics Comment on above: Primary osteoarthrit is of right hip (Primary Dx); Acute pain of right hip Start: 10-27-2022 Refill Jerica Chaudhari OCEANOGRAPHER PHYSICAL.CLERICAL SUPERVISOR Work Phone: [facility] Comment on above: Refill Request Start: 09-26-2022 End: 09-26-2022 Patient encounter procedure Sue Weber MD Work Phone: [facility] Comment on above: Acute pain of right hip (Primary Dx); Muscle strain Start: 09-24-2022 End: 09-24-2022 [facility] Start: [facility]22 Telephone encounter Sue corrigna MD Work Phone: [facility] Comment on above: Patient Update Start: 07-22-2022 End: 07-22-2022 Subsequent hospital visit by physician Xr [facility] Work Phone: Radiology Comment on above: Cough, unspecified t ype [R05.9] Start: 07-21-2022 End: 07-21-2022 Patient encounter procedure Sue Weber MD Work Phone: [facility] Comment on above: Cough, unspecified t ype (Primary Dx); Chest congestion; Generalized weakness Start: 07-14-2022 End: 07-14-2022 ambulatory Sue Weber MD Work Phone: [facility] Comment on above: Bacterial sinusitis (Primary Dx) Start: 07-14-2022 End: 07-14-2022 Telemedicine consultation with patient Sue Weber MD Work Phone: [facility] [place] Start: 07-04-2022 End: 07-04-2022 Patient encounter procedure Sue Weber MD Work Phone: [facility] Comment on above: Acute non-recurrent frontal sinusitis (Primary Dx); Vaginal yeast infection Start: 07-02-2022 End: 07-02-2022 ambulatory Bhupinder Castañeda MD Work Phone: [facility] Comment on above: Viral syndrome (Prim terrence Dx) Start: 07-02-2022 End: 07-02-2022 Telemedicine consultation with patient Bhupinder Castañeda MD Work Phone: [facility] [place] Start: 05-20-2022 Refill Sue perkins MD Work Phone: [facility] [place] Comment on above: Refill Request Start: 04-02-2022 End: 04-02-2022 ambulatory Sue Weber MD Work Phone: [facility] [place] Comment on above: Bacterial sinusitis (Primary Dx) Start: 04-02-2022 End: 04-02-2022 Telemedicine consultation with patient Sue Weber MD Work Phone: [facility] [place] Start: 04-01-2022 End: 04-01-2022 Patient encounter procedure Sue Weber MD Work Phone: [facility] [place] Comment on above: Generalized anxiety disorder (Primary Dx); Primary insomnia; Essential hypertension, benign; Gastroesophageal reflux disease without esophagitis; Hypothyroidism, unspecified type; Essential thrombocythemia (HCC); Adjustment disorder with depressed mood; Obesity, Class III, BMI 40-49.9 (morbid obesity) (HCC); Impaired glucose tolerance Start: 03-31-2022 Refill Jerica Chaudhari APRN.CNP Work Phone: [facility] Comment on above: Refill Request Start: 03-30-2022 End: 03-30-2022 Patient encounter procedure Suze Moreno APRN.CNP Work Phone: [facility] Comment on above: Sinus congestion (Pr imary Dx); At increased risk of exposure to COVID-19 virus Start: 03-17-2022 End: 03-17-2022 Patient encounter procedure Suze Moreno APRN.CNP Work Phone: [facility] Comment on above: Urinary frequency (P rimary Dx) Start: 02-21-2022 End: 02-21-2022 Patient encounter procedure Sue Weber MD Work Phone: [facility] [place] Comment on above: OM (otitis media), r ecurrent, left (Primary Dx) Start: 01-31-2022 ambulatory Sue perkins MD Work Phone: [facility] Comment on above: Recent Urgent Care Start: 01-27-2022 End: 01-27-2022 Patient encounter procedure Suze Moreno APRN.CLERICAL SUPERVISOR Work Phone: [facility] Comment on above: Acute otitis media, right (Primary Dx); At increased risk of exposure to COVID-19 virus Start: 01-03-2022 ambulatory Sue perkins MD Work Phone: [facility] Comment on above: Stomach Start: 12-30-2021 End: 12-30-2021 Patient encounter procedure Sue Weber MD Work Phone: [facility] Comment on above: Primary insomnia (Pr imary Dx); Hypothyroidism, unspecified type; Generalized anxiety disorder; Adjustment disorder with depressed mood; Acute sinusitis, recurrence not specified, unspecified location; Nausea; Essential hypertension, benign; Impaired glucose tolerance Start: 12-26-2021 Telephone encounter Jerica Arnoldo lacy APRN.CLERICAL SUPERVISOR Work Phone: [facility] Comment on above: Results (labs) Start: 12-24-2021 End: 12-24-2021 Office outpatient visit 25 minutes Burke Snider APRN.CLERICAL SUPERVISOR Work Phone: [facility] Comment on above: Primary insomnia (Pr imary Dx); Hypothyroidism, unspecified type; Generalized anxiety disorder; Nausea Start: 12-11-2021 ambulatory Sue perkins MD Work Phone: [facility] Comment on above: Doxepin Start: 12-09-2021 End: 12-09-[address] Sue Weber Work Phone: [facility] Start: 12-08-2021 ambulatory Sue perkins MD Work Phone: [facility] Comment on above: Doxepin Start: 12-03-2021 End: 12-03-[address] Sue Weber Work Phone: [facility] Start: 12-03-[address] Sue Weber Work Phone: [facility] Start: 11-26-2021 Telephone encounter Sue corrigan MD Work Phone: [facility] [place] Comment on above: Patient Update; Appo intment Start: 11-26-2021 End: 11-26-2021 Patient encounter procedure Sue Weber MD Work Phone: [facility] [place] Comment on above: Sleeping difficulty (Primary Dx); Screening for colon cancer; Encounter for screening mammogram for malignant neoplasm of breast; Hypothyroidism, unspecified type; Adjustment disorder with depressed mood; Generalized anxiety disorder Start: 11-18-2021 End: 11-18-2021 Patient encounter procedure Naila Hernandez APRN.CNP Work Phone: [facility] [place] Comment on above: Acute sinusitis, rec urrence not specified, unspecified location (Primary Dx); Hypothyroidism, unspecified type; Essential hypertension, benign Start: 10-22-2021 Refill Burke CONNER RN.CLERICAL SUPERVISOR Work Phone: [facility] Comment on above: Refill Request Start: 09-07-2021 Refill Burke CONNER RN.CLERICAL SUPERVISOR Work Phone: [facility] Comment on above: Refill Request Start: 08-20-2021 Refill Laci Holley APRN.CLERICAL SUPERVISOR, DNP Work Phone: [facility] Comment on above: Refill Request Start: 04-30-2017 End: 04-30-2017 Emergency department patient visit HANK Zepeda [facility] Facility:[facility] Start: 10-15-2016 End: 10-17-2016 Evaluation and management of inpatient [facility] Procedures Date Procedure Procedure Detail Performing Clinician Start: 04-28-2024 Urnls dip stick/tabl et rgnt auto w/o microscopy Sue Weber MD Work Phone: Start: 03-21-2024 Urnls dip stick/tabl et rgnt auto w/o microscopy Bhupinder Castañeda MD Work Phone: Start: 02-23-2024 Adult depression scr eening assessment Sue Weber MD Work Phone: Start: 02-09-2024 Radiologic exam ches t 2 views Carly Lewis OCEANOGRAPHER PHYSICAL.CLERICAL SUPERVISOR Work Phone: Start: 02-01-2024 Radiologic exam ches t 2 views Glenda Omer OCEANOGRAPHER PHYSICAL.CLERICAL SUPERVISOR Work Phone: Start: 11-27-2023 Urnls dip stick/tabl et rgnt auto w/o microscopy Hang Ochoaautumn OCEANOGRAPHER PHYSICAL.CLERICAL SUPERVISOR Work Phone: Start: 06-25-2023 COVID & INFLUENZA A/ B & RSV NAAT, ROUTINE Sue Weber MD Work Phone: Start: 02-17-2023 Radiologic exam ches t 2 views Corinna [place]oussaint OCEANOGRAPHER PHYSICAL.CLERICAL SUPERVISOR Work Phone: Start: 02-12-2023 Radiologic exam ches t 2 views Gianni Nair DO Work Phone: Start: 12-31-2022 End: 12-31-2022 Mammography Sue Weber MD Work Phone: Start: 12-24-2022 Lipid 1996 panel - S kathia or Plasma Gianni Nair DO Work Phone: Start: 09-24-2022 Plain x-ray of pelvi s and lower extremity Start: 07-22-2022 Radiologic exam ches t 2 views Sue Weber MD Work Phone: Start: 03-17-2022 Urnls dip stick/tabl et rgnt auto w/o microscopy Suze Moreno OCEANOGRAPHER PHYSICAL.CLERICAL SUPERVISOR Work Phone: Start: 12-09-2021 End: 12-09-2021 Mammography Sue Weber MD Work Phone: Start: 11-18-2021 Adult depression scr eening assessment Naila Hernandez OCEANOGRAPHER PHYSICAL.CLERICAL SUPERVISOR Work Phone: Start: 11-05-2020 Mammography Laci abraham OCEANOGRAPHER PHYSICAL.EUNICE FARRELL Work Phone: Start: 06-07-2020 Adult depression scr eening assessment Laci Holley OCEANOGRAPHER PHYSICAL.[place]UNICE FARRELL Work Phone: Plan of Treatment Date Care Activity Detail Author Start: 12-25-2027 Lipid 1996 panel - Serum or Plasma Lipid Screening [facility] Start: 12-25-2027 Lipid panel Lipid Screening [facility] Start: 12-25-2027 LIPID SCREEN LIPID SCREEN [facility] Start: 02-19-2027 Diabetes Screening Diabetes Screening [facility] Start: 08-11-2026 Diabetes Screening Diabetes Screening [facility] Start: 12-24-2025 DIABETES SCREEN DIABETES SCREEN [facility] Start: 12-24-2025 Diabetes Screening Diabetes Screening [facility] Start: 10-31-2025 Annual PCP Team Chronic Disease Visit Annual PCP Team Chronic Disease Visit [facility] Start: 10-16-2025 LIPID SCREEN LIPID SCREEN [facility] Start: 10-03-2025 Annual PCP Team Chronic Disease Visit Annual PCP Team Chronic Disease Visit [facility] Start: 08-02-2025 Annual PCP Team Chronic Disease Visit Annual PCP Team Chronic Disease Visit [facility] Start: 07-28-2025 Annual PCP Team Chronic Disease Visit Annual PCP Team Chronic Disease Visit [facility] Start: 07-04-2025 Annual PCP Team Chronic Disease Visit Annual PCP Team Chronic Disease Visit [facility] Start: 06-21-2025 Annual PCP Team Chronic Disease Visit Annual PCP Team Chronic Disease Visit [facility] Start: 06-21-2025 BP Controlled (<130/80) BP Controlled (<130/80) [facility] Start: 06-03-2025 Annual PCP Team Chronic Disease Visit Annual PCP Team Chronic Disease Visit [facility] Start: 04-28-2025 Annual PCP Team Chronic Disease Visit Annual PCP Team Chronic Disease Visit [facility] Start: 04-22-2025 Annual PCP Team Chronic Disease Visit Annual PCP Team Chronic Disease Visit [facility] Start: 03-31-2025 DIABETES SCREEN DIABETES SCREEN [facility] Start: 03-21-2025 Annual PCP Team Chronic Disease Visit Annual PCP Team Chronic Disease Visit [facility] Start: 02-24-2025 Annual PCP Team Chronic Disease Visit Annual PCP Team Chronic Disease Visit [facility] Start: 02-22-2025 Annual PCP Team Chronic Disease Visit Annual PCP Team Chronic Disease Visit [facility] Start: 02-22-2025 Covid-19 Vaccine ( season) Covid-19 Vaccine () [facility] Comment on above: Postponed from 01/24/2024 (Declined at t his time) Start: 02-22-2025 Depression Screening Depression Screening [facility] Start: 02-14-2025 Annual PCP Team Chronic Disease Visit Annual PCP Team Chronic Disease Visit [facility] Start: 02-07-2025 Annual PCP Team Chronic Disease Visit Annual PCP Team Chronic Disease Visit [facility] Start: 02-03-2025 Annual PCP Team Chronic Disease Visit Annual PCP Team Chronic Disease Visit [facility] Start: 01-23-2025 Influenza vaccination Influenza Vaccine (Season Ended) [facility] Start: 01-18-2025 Annual PCP Team Chronic Disease Visit Annual PCP Team Chronic Disease Visit [facility] Start: 01-13-2025 Annual PCP Team Chronic Disease Visit Annual PCP Team Chronic Disease Visit [facility] Start: 12-05-2024 End: 12-05-2024 Patient encounter procedure 12/05/2024 12:40 PM EDT Office Visit [facility] [place] [address] [facility] [place], [place] [id number] Sue Weber MD [address] [place], [place] [id number] 6 mo f/u [facility] [place] Comment on above: 6 mo f/u Start: 12-01-2024 End: 03-02-2025 Thyrotropin [Units/volume] in Serum or Plasma THYROID STIMULATING HORMONE Lab Routine Hypothyroidism, unspecified type Expected: 12/01/2024 (Approximate), Expires: 03/02/2025 [facility] Work Phone: Comment on above: Expected: 12/01/2024 (Approximate), Expi res: 03/02/2025 Start: 12-01-2024 End: 03-02-2025 Thyroxine (T4) free [Mass/volume] in Serum or Plasma T4 FREE/FREE THYROXINE Lab Routine Hypothyroidism, unspecified type Expected: 12/01/2024 (Approximate), Expires: 03/02/2025 [facility] Comment on above: Expected: 12/01/2024 (Approximate), Expi res: 03/02/2025 Start: 11-30-2024 End: 03-01-2025 TRYPTASE BLOOD TRYPTASE BLOOD Lab Routine Mast cell activation (HCC) Expected: 11/30/2024 (Approximate), Expires: 03/01/2025 [facility] Comment on above: Expected: 11/30/2024 (Approximate), Expi res: 03/01/2025 Start: 11-21-2024 Influenza [facility] Comment on above: Postponed from 01/24/2024 (Declined at t his time) Start: 11-18-2024 Annual PCP Team Chronic Disease Visit Annual PCP Team Chronic Disease Visit [facility] Start: 11-18-2024 DIABETES SCREEN DIABETES SCREEN [facility] Start: 10-15-2024 Annual PCP Team Chronic Disease Visit Annual PCP Team Chronic Disease Visit [facility] Start: 10-15-2024 Hepatitis C screening Hepatitis C Screening [facility] Comment on above: Postponed from 1985 (Declined at t his time) Start: 10-15-2024 HIV screening HIV Screening [facility] Comment on above: Postponed from 1985 (Declined at t his time) Start: 10-08-2024 Annual PCP Team Chronic Disease Visit Annual PCP Team Chronic Disease Visit [facility] Start: 09-05-2024 End: 09-05-2024 ambulatory 09/05/2024 2:20 PM EDT Visit (SP) Office Hematology/Oncology [address] [place] [address] Gadiel Davis MD [address] [place] [address] OV/BMBX 08/29 CT 09/01* Hematology/Oncology Comment on above: OV/BMBX 08/29 CT 09/01* Start: 09-01-2024 End: 09-01-2024 Patient encounter procedure 09/01/2024 11:40 AM EDT Appointment Cat Scan [address] [place] [address] 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] Cat Scan Comment on above: 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] Start: 08-29-2024 End: 08-29-2024 Admission to same day surgery center 08/29/2024 12:00 PM EDT - 08/29/2024 1:00 PM EDT Surgery [facility] [address] [facility] [place] [address] Isaias Lowery, DO [address] [place] [address] DIAGNOSTIC BONE MARROW BIOPSY(IES) [facility] Comment on above: DIAGNOSTIC BONE MARROW BIOPSY(IES) Start: 08-29-2024 End: 08-29-2024 Diagnostic bone marrow biopsies DIAGNOSTIC BONE MARROW BIOPSY(IES) Mast cell activation (HCC) 08/29/2024 12:00 PM EDT [facility] Start: 08-29-2024 Subsequent hospital visit by physician 08/29/2024 12:00 PM EDT Hospital Encounter [facility] [address] [place] [address] Isaias Lowery, DO [address] [place] [address] 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] [facility] Comment on above: 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] Start: 08-26-2024 Annual PCP Team Chronic Disease Visit Annual PCP Team Chronic Disease Visit [facility] Start: 08-22-2024 End: 11-21-2024 CREATININE BLD CREATININE BLD Lab Routine Mast cell activation (HCC) Expected: 08/22/2024, Expires: 11/21/2024 [facility] Comment on above: Expected: 08/22/2024, Expires: Start: 08-22-2024 End: 11-21-2024 KIT D816V MUTATION DETECTION BLOOD KIT D816V MUTATION DETECTION BLOOD Lab Routine Mast cell activation (HCC) Expected: 08/22/2024, Expires: 11/21/2024 [facility] Comment on above: Expected: 08/22/2024, Expires: Start: 08-22-2024 End: 11-21-2024 TRYPTASE BLOOD TRYPTASE BLOOD Lab Routine Mast cell activation (HCC) Expected: 08/22/2024, Expires: 11/21/2024 [facility] Work Phone: Comment on above: Expected: 08/22/2024, Expires: Start: 08-22-2024 End: 08-22-2024 ambulatory Hematology/Oncology Comment on above: OFFICE SWEEPER/MASTOCYTOSIS/REF BY JULIETTE BRIAN* [address] Start: 08-11-2024 Annual PCP Team Chronic Disease Visit Annual PCP Team Chronic Disease Visit [facility] Start: 08-08-2024 BP Controlled (<130/80) BP Controlled (<130/80) [facility] Start: 07-18-2024 End: 07-18-2024 Patient encounter procedure 07/18/2024 2:30 PM EST Office Visit [facility] [address] [place], [place] [phone] Emily Mitchell, OD [address] [place], [place] [phone] reacurrent pink eye Ophthalmology Comment on above: reacurrent pink eye Start: 07-17-2024 Annual PCP Team Chronic Disease Visit Annual PCP Team Chronic Disease Visit [facility] Start: 07-06-2024 Annual PCP Team Chronic Disease Visit Annual PCP Team Chronic Disease Visit [facility] Start: 06-25-2024 Annual PCP Team Chronic Disease Visit Annual PCP Team Chronic Disease Visit [facility] Start: 05-30-2024 End: 05-30-2024 Patient encounter procedure 05/30/2024 2:40 PM EST Office Visit Family [facility] [place] [address] [place], [place] [phone] Sue Weber MD [address] [place], [place] [id number] 3 month follow up Family [facility] [place] Comment on above: 3 month follow up Start: 05-25-2024 End: 08-24-2024 Thyrotropin [Units/volume] in Serum or Plasma THYROID STIMULATING HORMONE Lab Routine Hypothyroidism, unspecified type Expected: 05/25/2024 (Approximate), Expires: 08/24/2024 [facility] Comment on above: Expected: 05/25/2024 (Approximate), Expi res: 08/24/2024 Start: 05-25-2024 End: 08-24-2024 Thyroxine (T4) free [Mass/volume] in Serum or Plasma T4 FREE/FREE THYROXINE Lab Routine Hypothyroidism, unspecified type Expected: 05/25/2024 (Approximate), Expires: 08/24/2024 [facility] Comment on above: Expected: 05/25/2024 (Approximate), Expi res: 08/24/2024 Start: 04-22-2024 End: 04-22-2024 Patient encounter procedure 04/22/2024 3:40 PM EST [facility] [address] [place], [place] [phone] Sue Weber MD [address] [place], [place] [phone] Eye swollen red facial rash [facility] Comment on above: Eye swollen red facial rash Start: 02-23-2024 End: 02-23-2024 Patient encounter procedure 02/23/2024 3:00 PM EDT [facility] [address] [place], [place] [address] Sue Weber MD [address] [place] [address] 3 mo f/u [facility] Comment on above: 3 mo f/u Start: 02-19-2024 End: 05-20-2024 CBC panel - Blood by Automated count COMPLETE BLOOD COUNT Lab Routine Iron deficiency anemia, unspecified iron deficiency anemia type Chronic myeloproliferative disorder (HCC) Expected: 02/19/2024 (Approximate), Expires: 05/20/2024 [facility] Comment on above: Expected: 02/19/2024 (Approximate), Expi res: 05/20/2024 Start: 02-19-2024 End: 05-20-2024 Comprehensive metabolic 2000 panel - Serum or Plasma COMPREHENSIVE METABOLIC PANEL Lab Routine Elevated alkaline phosphatase level Elevated LFTs Expected: 02/19/2024 (Approximate), Expires: 05/20/2024 [facility] Work Phone: Comment on above: Expected: 02/19/2024 (Approximate), Expi res: 05/20/2024 Start: 02-18-2024 Annual PCP Team Chronic Disease Visit Annual PCP Team Chronic Disease Visit [facility] Start: 02-17-2024 End: 02-17-2024 Patient encounter procedure 02/17/2024 3:00 PM EDT Office Visit Family [facility] [place] [address] [place] [address] Carly Lewis APRN.CLERICAL SUPERVISOR [address] [place] [address] 2 day BP check Family [facility] [place] Comment on above: 2 day BP check Start: 02-17-2024 End: 05-18-2024 Thyrotropin [Units/volume] in Serum or Plasma THYROID STIMULATING HORMONE Lab Routine SHEYLA (generalized anxiety disorder) Expected: 02/17/2024, Expires: 05/18/2024 [facility] Work Phone: Comment on above: Expected: 02/17/2024, Expires: Start: 02-17-2024 End: 05-18-2024 Thyroxine (T4) free [Mass/volume] in Serum or Plasma T4 FREE/FREE THYROXINE Lab Routine SHEYLA (generalized anxiety disorder) Expected: 02/17/2024, Expires: 05/18/2024 [facility] Comment on above: Expected: 02/17/2024, Expires: Start: 02-15-2024 End: 02-15-2024 Patient encounter procedure 02/15/2024 2:20 PM EDT Office Visit [facility] [place] [address] [place] [address] Carly Lewis APRN.CLERICAL SUPERVISOR [address] [place] [address] 1 week follow up [facility] Comment on above: 1 week follow up Start: 02-12-2024 Annual PCP Team Chronic Disease Visit Annual PCP Team Chronic Disease Visit [facility] Start: 02-05-2024 DIABETES SCREEN DIABETES SCREEN [facility] Start: 01-24-2024 Covid-19 Vaccine () Covid-19 Vaccine () [facility] Start: 01-24-2024 Covid-19 Vaccine (3 - 2024-25 season) Covid-19 Vaccine ( season) [facility] Start: 01-24-2024 Influenza vaccination [facility] Start: 01-20-2024 ANNUAL PCP TEAM CHRONIC DISEASE VISIT ANNUAL PCP TEAM CHRONIC DISEASE VISIT [facility] Start: 01-19-2024 End: 01-19-2024 ambulatory 01/19/2024 4:20 PM EDT [facility] Medicine [place] [address] [place], [place] [address] Sue Weber MD [address] [place], [place] [phone] having stomach issues nausea constipation [facility] [place] Comment on above: having stomach issues nausea constipatio n Start: 01-08-2024 ANNUAL PCP TEAM CHRONIC DISEASE VISIT ANNUAL PCP TEAM CHRONIC DISEASE VISIT [facility] Start: 01-01-2024 Mammography [facility] Start: 01-01-2024 Screening for malignant neoplasm of breast Mammogram Screening [facility] Start: 12-25-2023 ANNUAL PCP TEAM CHRONIC DISEASE VISIT ANNUAL PCP TEAM CHRONIC DISEASE VISIT [facility] Start: 12-25-2023 BP CONTROLLED (<130/80) BP CONTROLLED (<130/80) [facility] in Start: 11-27-2023 End: 12-11-2023 COVID & INFLUENZA A/B & RSV NAAT, ROUTINE [facility] Comment on above: Expected: 11/27/2023, Expires: Start: 11-19-2023 End: 11-19-2023 Patient encounter procedure 11/19/2023 1:20 PM EDT Office Visit [facility] [place] [address] [place], [place] [address] Sue Weber MD [address] [place], [place] [phone] 1 mo f/u [facility] [place] Comment on above: 1 mo f/u Start: 11-16-2023 End: 02-15-2024 ALK PHOS ISOENZYM BL ALK PHOS ISOENZYM BL Lab Routine Elevated alkaline phosphatase level Elevated LFTs Expected: 11/16/2023 (Approximate), Expires: 02/15/2024 [facility] Comment on above: Expected: 11/16/2023 (Approximate), Expi res: 02/15/2024 Start: 11-16-2023 End: 02-15-2024 Hepatic function 2000 panel - Serum or Plasma HEPATIC FUNCTION PNL Lab Routine Elevated alkaline phosphatase level Elevated LFTs Expected: 11/16/2023 (Approximate), Expires: 02/15/2024 [facility] Work Phone: Comment on above: Expected: 11/16/2023 (Approximate), Expi res: 02/15/2024 Start: 10-09-2023 End: 01-08-2024 ALK PHOS ISOENZYM BL ALK PHOS ISOENZYM BL Lab Routine Elevated alkaline phosphatase level Expected: 10/09/2023, Expires: 01/08/2024 [facility] Work Phone: Comment on above: Expected: 10/09/2023, Expires: Start: 09-29-2023 [facility] Start: 09-27-2023 ANNUAL PCP TEAM CHRONIC DISEASE VISIT ANNUAL PCP TEAM CHRONIC DISEASE VISIT [facility] Start: 09-09-2023 [facility] Start: 08-12-2023 End: 11-11-2023 Bacteria identified in Urine by Culture URINE CULTURE Microbiology Routine Fever, unspecified fever cause Expected: 08/12/2023, Expires: 11/11/2023 [facility] Work Phone: Comment on above: Expected: 08/12/2023, Expires: Start: 08-12-2023 End: 11-11-2023 C reactive protein [Mass/volume] in Serum or Plasma [facility] Work Phone: Comment on above: Expected: 08/12/2023, Expires: Start: 08-12-2023 End: 11-11-2023 Comprehensive metabolic 2000 panel - Serum or Plasma [facility] Work Phone: Comment on above: Expected: 08/12/2023, Expires: Start: 08-12-2023 End: 11-11-2023 Cytomegalovirus IgM Ab [Units/volume] in Serum or Plasma [facility] Work Phone: Comment on above: Expected: 08/12/2023, Expires: Start: 08-12-2023 End: 11-11-2023 EMILIE OLIVAREZ PANEL [facility] Work Phone: Comment on above: Expected: 08/12/2023, Expires: Start: 08-12-2023 End: 11-11-2023 Erythrocyte sedimentation rate [facility] Work Phone: Comment on above: Expected: 08/12/2023, Expires: Start: 08-12-2023 End: 11-11-2023 Hemoglobin A1c in Blood [facility] Work Phone: Comment on above: Expected: 08/12/2023, Expires: Start: 08-12-2023 End: 11-11-2023 Thyrotropin [Units/volume] in Serum or Plasma [facility] Work Phone: Comment on above: Expected: 08/12/2023, Expires: Start: 08-12-2023 End: 11-11-2023 Thyroxine (T4) free [Mass/volume] in Serum or Plasma [facility] Work Phone: Comment on above: Expected: 08/12/2023, Expires: Start: 08-12-2023 End: 11-11-2023 Urinalysis complete panel - Urine URINALYSIS, WITH MICROSCOPIC Lab Routine Fever, unspecified fever cause Expected: 08/12/2023, Expires: 11/11/2023 [facility] Work Phone: Comment on above: Expected: 08/12/2023, Expires: Start: 07-21-2023 ANNUAL PCP TEAM CHRONIC DISEASE VISIT ANNUAL PCP TEAM CHRONIC DISEASE VISIT [facility] Start: 07-14-2023 ANNUAL PCP TEAM CHRONIC DISEASE VISIT ANNUAL PCP TEAM CHRONIC DISEASE VISIT [facility] Start: 07-04-2023 ANNUAL PCP TEAM CHRONIC DISEASE VISIT ANNUAL PCP TEAM CHRONIC DISEASE VISIT [facility] Start: 07-02-2023 ANNUAL PCP TEAM CHRONIC DISEASE VISIT ANNUAL PCP TEAM CHRONIC DISEASE VISIT [facility] Start: 05-25-2023 Behavioral Health Screening Behavioral Health Screening [facility] Start: 05-25-2023 Depression Assessment Depression Assessment [facility] Start: 04-02-2023 ANNUAL PCP TEAM CHRONIC DISEASE VISIT ANNUAL PCP TEAM CHRONIC DISEASE VISIT [facility] Start: 04-01-2023 ANNUAL PCP TEAM CHRONIC DISEASE VISIT ANNUAL PCP TEAM CHRONIC DISEASE VISIT [facility] Start: 04-01-2023 BP CONTROLLED (<130/80) BP CONTROLLED (<130/80) [facility] Start: 03-23-2023 End: 03-02-2024 Cobalamin (Vitamin B12) [Mass/volume] in Serum or Plasma VITAMIN B12 BLOOD Lab Routine Essential thrombocythemia (HCC) Expected: 03/23/2023, Expires: 03/02/2024 [facility] Work Phone: Comment on above: Expected: 03/23/2023, Expires: Start: 03-23-2023 End: 03-02-2024 Ferritin [Mass/volume] in Serum or Plasma FERRITIN BLD Lab Routine Essential thrombocythemia (HCC) Expected: 03/23/2023, Expires: 03/02/2024 [facility] Work Phone: Comment on above: Expected: 03/23/2023, Expires: Start: 03-23-2023 End: 03-02-2024 Iron and Iron binding capacity panel - Serum or Plasma IRON + TIBC Lab Routine Essential thrombocythemia (HCC) Expected: 03/23/2023, Expires: 03/02/2024 [facility] Work Phone: Comment on above: Expected: 03/23/2023, Expires: Start: 02-21-2023 ANNUAL PCP TEAM CHRONIC DISEASE VISIT ANNUAL PCP TEAM CHRONIC DISEASE VISIT [facility] Start: 01-23-2023 Covid-19 Vaccine () Covid-19 Vaccine () [facility] Start: 01-23-2023 Influenza vaccination [facility] Start: 01-15-2023 End: 03-17-2023 CBC W Auto Differential panel - Blood [facility] Work Phone: Comment on above: Expected: 01/15/2023, Expires: 3 Start: 01-06-[address] [facility] Work Phone: Start: 12-30-2022 ANNUAL PCP TEAM CHRONIC DISEASE VISIT ANNUAL PCP TEAM CHRONIC DISEASE VISIT [facility] Start: 12-30-2022 BP CONTROLLED (<130/80) BP CONTROLLED (<130/80) [facility] in Start: 12-24-2022 ANNUAL PCP TEAM CHRONIC DISEASE VISIT ANNUAL PCP TEAM CHRONIC DISEASE VISIT [facility] Start: 12-24-2022 End: 02-23-2023 Comprehensive metabolic 2000 panel - Serum or Plasma [facility] Work Phone: Comment on above: Expected: 12/24/2022, Expires: 3 Start: 12-24-2022 End: 02-23-2023 Hemoglobin A1c in Blood [facility] Work Phone: Comment on above: Expected: 12/24/2022, Expires: 3 Start: 12-24-2022 End: 02-23-2023 LIPID PANEL, NONFASTING [facility] Work Phone: Comment on above: Expected: 12/24/2022, Expires: 3 Start: 12-24-2022 End: 02-23-2023 Magnesium [Mass/volume] in Serum or Plasma [facility] Work Phone: Comment on above: Expected: 12/24/2022, Expires: 3 Start: 12-24-2022 End: 02-23-2023 Thyrotropin [Units/volume] in Serum or Plasma [facility] Work Phone: Comment on above: Expected: 12/24/2022, Expires: 3 Start: 12-24-2022 End: 02-23-2023 Thyroxine (T4) free [Mass/volume] in Serum or Plasma [facility] Work Phone: Comment on above: Expected: 12/24/2022, Expires: Start: 12-09-2022 Mammography MAMMOGRAM [facility] Start: 11-26-2022 ANNUAL PCP TEAM CHRONIC DISEASE VISIT ANNUAL PCP TEAM CHRONIC DISEASE VISIT [facility] Start: 11-26-2022 HEPATITIS C SCREENING HEPATITIS C SCREENING [facility] Comment on above: Postponed from 1985 (Declined at t his time) Start: 11-26-2022 HIV SCREENING HIV SCREENING [facility] Comment on above: Postponed from 1985 (Declined at t his time) Start: 11-18-2022 Adult depression screening assessment DEPRESSION SCREENING [facility] Start: 11-18-2022 ANNUAL PCP TEAM CHRONIC DISEASE VISIT ANNUAL PCP TEAM CHRONIC DISEASE VISIT [facility] Start: 11-18-2022 SHINGRIX VACCINE (1 of 2) SHINGRIX VACCINE (1 of 2) [facility] Comment on above: Postponed from 1986 (Declined at t his time) Postponed from 06/08 (Declined at this time) Start: 11-18-2022 Urine microalbumin profile DTAP,TDAP,TD (6 - Td or Tdap) [facility] Comment on above: Postponed from 12/20/2018 (Declined at t his time) Start: 07-02-2022 ANNUAL PCP TEAM CHRONIC DISEASE VISIT ANNUAL PCP TEAM CHRONIC DISEASE VISIT [facility] Start: 07-02-2022 End: 09-01-2022 Comprehensive metabolic 2000 panel - Serum or Plasma COMP METABOLIC PANEL Lab Routine Impaired glucose tolerance Expected: 07/02/2022 (Approximate), Expires: 09/01/2022 [facility] Work Phone: Comment on above: Expected: 07/02/2022 (Approximate), Expi res: 09/01/2022 Start: 07-02-2022 End: 07-16-2022 Influenza virus A and B RNA and SARS-CoV-2 (COVID-19) N gene panel - Respiratory specimen by LEILANI with probe detection COVID WITH FLUA+B, ROUTINE Microbiology Routine Viral syndrome Expected: 07/02/2022, Expires: 07/16/2022 [facility] Work Phone: Comment on above: Expected: 07/02/2022, Expires: Start: 07-02-2022 End: 09-01-2022 Thyrotropin [Units/volume] in Serum or Plasma TSH BLD Lab Routine Hypothyroidism, unspecified type Expected: 07/02/2022 (Approximate), Expires: 09/01/2022 [facility] Work Phone: Comment on above: Expected: 07/02/2022 (Approximate), Expi res: 09/01/2022 Start: 05-25-2022 DEPRESSION ASSESSMENT DEPRESSION ASSESSMENT [facility] Start: 04-01-2022 End: 06-01-2022 Comprehensive metabolic 2000 panel - Serum or Plasma COMP METABOLIC PANEL Lab Routine Impaired glucose tolerance Expected: 04/01/2022 (Approximate), Expires: 06/01/2022 [facility] Work Phone: Comment on above: Expected: 04/01/2022 (Approximate), Expi res: 06/01/2022 Start: 04-01-2022 End: 06-01-2022 Hemoglobin A1c in Blood HGB A1C Lab Routine Impaired glucose tolerance Expected: 04/01/2022 (Approximate), Expires: 06/01/2022 [facility] Work Phone: Comment on above: Expected: 04/01/2022 (Approximate), Expi res: 06/01/2022 Start: 04-01-2022 End: 06-01-2022 Thyrotropin [Units/volume] in Serum or Plasma TSH BLD Lab Routine Hypothyroidism, unspecified type Expected: 04/01/2022 (Approximate), Expires: 06/01/2022 [facility] Work Phone: Comment on above: Expected: 04/01/2022 (Approximate), Expi res: 06/01/2022 Start: 03-30-2022 End: 04-13-2022 Influenza virus A and B RNA and SARS-CoV-2 (COVID-19) N gene panel - Respiratory specimen by LEILANI with probe detection COVID WITH FLUA+B, ROUTINE Microbiology Routine At increased risk of exposure to COVID-19 virus Expected: 03/30/2022, Expires: 04/13/2022 [facility] Work Phone: Comment on above: Expected: 03/30/2022, Expires: 2 Start: 01-27-2022 End: 02-10-2022 Influenza virus A and B RNA and SARS-CoV-2 (COVID-19) N gene panel - Respiratory specimen by LEILANI with probe detection COVID WITH FLUA+B, ROUTINE Microbiology Routine Acute otitis media, right At increased risk of exposure to COVID-19 virus Expected: 01/27/2022, Expires: 02/10/2022 [facility] Work Phone: Comment on above: Expected: 01/27/2022, Expires: 2 Start: 01-23-2022 Influenza vaccination [facility] Start: 11-05-2021 Mammography MAMMOGRAM [facility] Start: 06-07-2021 Adult depression screening assessment DEPRESSION SCREENING [facility] Start: 05-25-2021 DEPRESSION ASSESSMENT DEPRESSION ASSESSMENT [facility] Start: 05-19-2021 COVID-19 VACCINE (3 - Booster for Moderna series) COVID-19 VACCINE (3 - Booster for Moderna series) [facility] Start: 02-11-2021 COVID-19 VACCINE (3 - Booster for Moderna series) COVID-19 VACCINE (3 - Booster for Moderna series) [facility] Start: 02-11-2021 COVID-19 VACCINE (3 - Moderna series) COVID-19 VACCINE (3 - Moderna series) [facility] Start: 01-23-2021 Influenza vaccination INFLUENZA (#1) [facility] Start: 04-11-2020 PAP TESTING PAP TESTING [facility] Start: 04-11-2020 Screening for malignant neoplasm of cervix [facility] Start: 04-10-2020 HPV TESTING HPV TESTING [facility] Start: 04-10-2020 Screening for malignant neoplasm of cervix HPV Testing [facility] Start: 12-20-2018 Urine microalbumin profile [facility] Start: 10-10-2018 BP CONTROLLED (<130/80) BP CONTROLLED (<130/80) [facility] Start: 2017 Pneumococcal Vaccine: 50+ (1 of 1 - PCV) Pneumococcal Vaccine: 50+ (1 of 1 - PCV) [facility] Start: 2017 SHINGRIX VACCINE (1 of 2) SHINGRIX VACCINE (1 of 2) [facility] Start: 2012 COLOGUARD (FIT-DNA) COLOGUARD (FIT-DNA) [facility] Start: 2012 Colonoscopy COLONOSCOPY [facility] Start: 2012 COLORECTAL CANCER SCREENING COLORECTAL CANCER SCREENING [facility] Start: [address] COLONOGRAPHY [facility] Start: 2012 FECAL OCCULT BLOOD FECAL OCCULT BLOOD [facility] Start: 2012 Screening for malignant neoplasm of colon [facility] Start: 2012 SIGMOIDOSCOPY SIGMOIDOSCOPY [facility] Start: 1986 Hepatitis B Vaccine (1 of 3 - 19+ 3-dose series) Hepatitis B Vaccine (1 of 3 - 19+ 3-dose series) [facility] Start: 1986 TWO PNEUMOVAX 5 YEARS APART PRIOR TO AGE 65 (#1) TWO PNEUMOVAX 5 YEARS APART PRIOR TO AGE 65 (#1) [facility] Start: 1985 Depression Screening Depression Screening [facility] Start: 1985 HEPATITIS C SCREENING HEPATITIS C SCREENING [facility] Start: 1985 Hepatitis C screening Hepatitis C Screening [facility] Start: 1985 HIV SCREENING HIV SCREENING [facility] Start: 1985 HIV screening HIV Screening [facility] Start: 1973 PNEUMOCOCCAL (1 - PCV) PNEUMOCOCCAL (1 - PCV) [facility] Start: 1967 HEPATITIS B (1 of 3 - 3-dose series) HEPATITIS B (1 of 3 - 3-dose series) [facility] Start: 1967 Hepatitis B Vaccine (1 of 3 - 3-dose series) Hepatitis B Vaccine (1 of 3 - 3-dose series) [facility] Bacteria identified in Urine by Culture URINE CULTURE Microbiology Routine Urinary frequency Ordered: 03/17/2022 [facility] Work Phone: Comment on above: Ordered: 03/17/2022 Bacteria identified in Urine by Culture URINE CULTURE Microbiology Routine Urinary urgency Ordered: 11/27/2023 [facility] Work Phone: Comment on above: Ordered: 11/27/2023 Bacteria identified in Urine by Culture URINE CULTURE Microbiology Routine Dysuria Renal oncocytoma, left Overactive bladder Ordered: 03/21/2024 [facility] Work Phone: Comment on above: Ordered: 03/21/2024 CBC W Auto Different ial panel - Blood [facility] Work Phone: CBC W Auto Different ial panel - Blood [facility] End: 03-01-2024 CBC W Auto Differential panel - Blood CBC + DIFF Lab Routine Essential thrombocythemia (HCC) Once per week for 6 Occurrences starting 03/02/2023 until 03/01/2024 [facility] Work Phone: Comment on above: Once per week for 6 Occurrences starting 03/02/2023 until 03/01/2024 End: 08-31-2025 CBC W Auto Differential panel - Blood COMPLETE BLOOD COUNT AND DIFFERENTIAL Lab Routine Mast cell activation (HCC) Every 3 months for 4 Occurrences starting 08/31/2024 until 08/31/2025 [facility] Comment on above: Every 3 months for 4 Occurrences startin g 08/31/2024 until 08/31/2025 End: 03-22-2024 Cobalamin (Vitamin B12) [Mass/volume] in Serum or Plasma VITAMIN B12 BLOOD Lab Routine Other iron deficiency anemia Once per month for 12 Occurrences starting 03/23/2023 until 03/22/2024 [facility] Work Phone: Comment on above: Once per month for 12 Occurrences starti ng 03/23/2023 until 03/22/2024 COLOGUARD COLOGUARD Lab Ro utine Screening for colon cancer Ordered: 02/23/2024 [facility] Work Phone: Comment on above: Ordered: 02/23/2024 COVID & INFLUENZA A/ B & RSV PCR, ROUTINE COVID & INFLUENZA A/B & RSV PCR, ROUTINE Microbiology Routine Nasal congestion Acute cough Ordered: 01/31/2024 [facility] Comment on above: Ordered: 01/31/2024 COVID & INFLUENZA A/ B & RSV PCR, ROUTINE COVID & INFLUENZA A/B & RSV PCR, ROUTINE Microbiology Routine Sinobronchitis 02/08/2024 7:29 PM EDT [facility] End: 09-21-2025 CT Abdomen and Pelvis W contrast IV CT ABD/PEL W IVCON Radiology Routine Mast cell activation (HCC) 1 Occurrences starting 08/22/2024 until 09/21/2025 [facility] Comment on above: 1 Occurrences starting 08/22/2024 until 09/21/2025 End: 09-21-2025 CT Chest W contrast IV CT CHEST W IVCON Radiology Routine Mast cell activation (HCC) 1 Occurrences starting 08/22/2024 until 09/21/2025 [facility] Comment on above: 1 Occurrences starting 08/22/2024 until 09/21/2025 End: 03-04-2025 DBT Breast - bilateral screening DAPHNE SCREENING W ED Radiology Routine Encounter for screening mammogram for breast cancer 1 Occurrences starting 02/03/2024 until 03/04/2025 [facility] Work Phone: Comment on above: 1 Occurrences starting 02/03/2024 until 03/04/2025 ECG COMPLETE ECG COMPLETE ECG Routine Chest heaviness Ordered: 02/15/2024 [facility] Work Phone: Comment on above: Ordered: 02/15/2024 Ferritin [Mass/volum e] in Serum or Plasma [facility] End: 03-22-2024 Ferritin [Mass/volume] in Serum or Plasma FERRITIN BLD Lab Routine Other iron deficiency anemia Once per month for 12 Occurrences starting 03/23/2023 until 03/22/2024 [facility] Work Phone: Comment on above: Once per month for 12 Occurrences starti ng 03/23/2023 until 03/22/2024 Guidance for biopsy of Bone marrow IMAGING GUIDED BIOPSY BONE MARROW (HEMATOLOGY) Radiology Routine Mast cell activation (HCC) Ordered: 08/22/2024 [facility] Comment on above: Ordered: 08/22/2024 Hemoglobin.gastroint est inal.lower [Presence] in Stool by Immunoassay FECAL OCCULT BLOOD TEST Lab Routine Screening for colon cancer Ordered: 11/26/2021 [facility] Work Phone: Comment on above: Ordered: 11/26/2021 End: 08-31-2025 Hepatic function 2000 panel - Serum or Plasma HEPATIC FUNCTION PNL Lab Routine Mast cell activation (HCC) Every 3 months for 4 Occurrences starting 08/31/2024 until 08/31/2025 [facility] Work Phone: Comment on above: Every 3 months for 4 Occurrences startin g 08/31/2024 until 08/31/2025 Iron and Iron bindin g capacity panel - Serum or Plasma [facility] End: 03-22-2024 Iron and Iron binding capacity panel - Serum or Plasma IRON + TIBC Lab Routine Other iron deficiency anemia Once per month for 12 Occurrences starting 03/23/2023 until 03/22/2024 [facility] Work Phone: Comment on above: Once per month for 12 Occurrences starti ng 03/23/2023 until 03/22/2024 End: 01-23-2024 DAPHNE SCREENING W ED DAPHNE SCREENING W ED Radiology Routine Visit for screening mammogram 1 Occurrences starting 12/24/2022 until 01/23/2024 [facility] Work Phone: Comment on above: 1 Occurrences starting 12/24/2022 until 01/23/2024 Patient Education [facility] Work Phone: Patient referral [facility] Work Phone: End: 08-20-2023 Radiologic exam chest 2 views XR CHEST 2V FRONTAL/LAT Radiology Routine Cough, unspecified type Chest congestion 1 Occurrences starting 07/21/2022 until 08/20/2023 [facility] Work Phone: Comment on above: 1 Occurrences starting 07/21/2022 until 08/20/2023 End: 03-12-2024 Radiologic exam chest 2 views XR CHEST 2V FRONTAL/LAT Radiology Routine Acute cough 1 Occurrences starting 02/11/2023 until 03/12/2024 [facility] Work Phone: Comment on above: 1 Occurrences starting 02/11/2023 until 03/12/2024 Reticulocyte count [facility] End: 12-26-2022 Screening mammography bi 2-view breast inc cad DAPHNE SCREENING Radiology Routine Encounter for screening mammogram for malignant neoplasm of breast 1 Occurrences starting 11/26/2021 until 12/26/2022 [facility] Work Phone: Comment on above: 1 Occurrences starting 11/26/2021 until 12/26/2022 End: 09-30-2025 US Abdomen RUQ US ABD RIGHT UPPER QUADRANT Radiology Routine Mast cell activation (HCC) 1 Occurrences starting 08/31/2024 until 09/30/2025 [facility] Comment on above: 1 Occurrences starting 08/31/2024 until 09/30/2025 End: 03-01-2025 XR Chest PA and Lateral XR CHEST 2V FRONTAL/LAT Radiology STAT Acute cough 1 Occurrences starting 01/31/2024 until 03/01/2025 [facility] Work Phone: Comment on above: 1 Occurrences starting 01/31/2024 until 03/01/2025 End: 03-09-2025 XR Chest PA and Lateral XR CHEST 2V FRONTAL/LAT Radiology Routine Sinobronchitis 1 Occurrences starting 02/08/2024 until 03/09/2025 [facility] Work Phone: Comment on above: 1 Occurrences starting 02/08/2024 until 03/09/2025 [facility] Immunizations Immunization Date Immunization Notes Care Provider Topher witt 12-17-2020 COVID-19 vaccine, fu ll dose (MODERNA) Laci Holley APRN.EUNICE FARRELL Work Phone: [facility] Work Phone: 07-19-2020 COVID-19 vaccine, fu ll dose (MODERNA) Laci Holley APRN.CNP, DNP Work Phone: [facility] Work Phone: 04-07-2017 influenza, injectabl e, quadrivalent, contains preservative Laci Holley APRN.CNP, DNP Work Phone: [facility] 04-07-2017 influenza virus vaccine, unspecified formulation Gianni Nair DO Work Phone: [facility] 03-19-2016 influenza, seasonal, injectable Laci Holley APRN.CNP, DNP Work Phone: [facility] Work Phone: 02-23-2014 influenza virus vaccine, unspecified formulation Laci Holley APRN.[facility] Work Phone: [facility] 03-14-2013 influenza virus vaccine, unspecified formulation Laci Holley APRN.[facility] Work Phone: [facility] 12-20-2008 tetanus toxoid, redu ramez diphtheria toxoid, and acellular pertussis vaccine, adsorbed Laci Holley APRN.[facility] Work Phone: [facility] 05-07-1983 mumps virus vaccine Laci persaud APRN.[facility] Work Phone: [facility] Work Phone: 01-27-1973 diphtheria, tetanus toxoids and pertussis vaccine Laci Holley APRN.[facility] Work Phone: [facility] Work Phone: 01-27-1973 trivalent poliovirus vaccine, live, oral Laci Holley APRN.[facility] Work Phone: [facility] Work Phone: 01-12-1970 rubella virus vaccine Laci Holley APRN.[facility] Work Phone: [facility] Work Phone: 01-12-1970 trivalent poliovirus vaccine, live, oral Laci Holley APRN.[facility] Work Phone: [facility] Work Phone: 02-18-1969 diphtheria, tetanus toxoids and pertussis vaccine Laci Holley APRN.[facility] Work Phone: [facility] Work Phone: 04-18-1968 measles virus vaccine Laci Holley APRN.[facility] Work Phone: [facility] Work Phone: 1967 diphtheria, tetanus toxoids and pertussis vaccine Laci Holley APRN.[facility] Work Phone: [facility] Work Phone: 1967 trivalent poliovirus vaccine, live, oral Laci Holley OCEANOGRAPHER PHYSICAL.[facility] Work Phone: [facility] Work Phone: 1967 diphtheria, tetanus toxoids and pertussis vaccine Laci Holley OCEANOGRAPHER PHYSICAL.[facility] Work Phone: [facility] Work Phone: 1967 trivalent poliovirus vaccine, live, oral Laci Blaleigh OCEANOGRAPHER PHYSICAL.[facility] Work Phone: [facility] Work Phone: 1967 diphtheria, tetanus toxoids and pertussis vaccine Laci Holley OCEANOGRAPHER PHYSICAL.[facility] Work Phone: [facility] Work Phone: Payers Date Payer Category Payer Self-pay [id number] 2017 Medicaid [facility] [id number] 2017-Present [phone] [address] [place] [address] Medicaid [id number] 2017 Medicaid [id number] 2013 Medicaid [id number] 2013 Unknown [id number] Unknown [id number] Unknown [id number] Unknown [id number] Unknown [id number] Unknown [id number] Unknown [id number] Unknown [id number] Unknown [id number] Unknown [id number] Unknown [id number] Social History Date Type Detail Facility Start: 12-09-2010 End: 01-27-2022 Tobacco smoking status NHIS Never smoked tobacco [facility] Start: 07-28-2021 End: 08-31-2024 Alcohol intake Current drinker of alcohol (finding) [facility] Start: 05-30-2021 History SDOH Alcohol Frequency 98 [facility] Start: 09-29-2016 History SDOH Alcohol Comment rarely [facility] Start: 05-30-2021 History SDOH Social Connections Phone 5 [facility] Start: 05-30-2021 End: 07-02-2022 History SDOH Housing Unable to Pay 3 [facility] Start: 1965 Sex Assigned At Not on file C [facility] Start: 11-08-2021 End: 04-01-2022 Exposure to SARS-CoV-2 (event) Not sure [facility] Start: 02-15-2021 End: 09-29-2023 Tobacco smoking status NHIS Unknown if ever smoked [facility] Start: 02-15-2019 None [facility] Start: 02-15-2019 Alone [facility] Start: 03-07-2019 Non-smoker [facility] Start: 1965 Sex Assigned At Female [facility] Start: 12-09-2010 End: 01-27-2022 Tobacco use and exposure Smokeless tobacco non-user [facility] Start: 07-02-2022 End: 09-26-2022 History of Social function [facility] Start: 07-02-2022 End: 09-26-2022 Social connection and isolation panel [facility] In a typical week, h ow many times do you talk on the telephone with family, friends, or neighbors? Patient refused [facility] Are you now , , , , never or living with a partner? Refused [facility] (I/We) worried cherrie er (my/our) food would run out before (I/we) got money to buy more. DK or Refused [facility] Has the [place], or water [employer] threatened to shut off services in your home in past 12Mo No [facility] How often do you hav e 6 or more drinks on 1 occasion? Never [facility] Do you feel stress - tense, restless, nervous, or anxious, or unable to sleep at night because your mind is troubled all the time - these days [OSQ] Only a little [facility] Start: 07-30-2024 Sex Female (finding) Piero r [facility] Functional Status Date Assessment Result Facility 12-20-2014 Are you deaf, or do you have serious difficulty hearing No 12/20/2014 3:44 PM EDT Geeta Juares MA No [facility] 12-20-2014 Are you blind, or do you have serious difficulty seeing, even when wearing glasses No 12/20/2014 3:44 PM EDT Geeta Juares MA No [facility] 12-20-2014 Do you have serious difficulty walking or climbing stairs Yes 12/20/2014 3:44 PM CIPRIANOT Geeta Juares MA Yes [facility] 12-20-2014 Do you have difficul ty dressing or bathing No 12/20/2014 3:44 PM CIPRIANOT Geeta Juares MA No [facility] 12-20-2014 Because of a physica l, mental, or emotional condition, do you have difficulty doing errands alone such as visiting a physician's office or shopping No 12/20/2014 3:44 PM EDT Geeta Juares MA No [facility] Mental Status Date Assessment Result Facility 12-20-2014 Because of a physica l, mental, or emotional condition, do you have serious difficulty concentrating, remembering, or making decisions No 12/20/2014 3:44 PM EDT Geeta Juares, CARMELITA No [facility] Clinical Notes 06-12-2020 to 11-02-2024 Telephone Encounter - Shari Duron LPN - 11/02/2024 9:53 AM EDTTelephone Encounter - Shari Duron LPN - 11/02/2024 9:53 AM EDTTelephone Encounter - Mukesh Coxi - 10/25/2024 10:22 AM EDT Note Date & Type Note Facility 11-02-2024 Telephone encounter Note Per pt. Can F/U PRN Shari Duron LPN [facility] 11-02-2024 Miscellaneous Notes Per pt. Can F/U PRN Shari Duron LPN Dr. Davis informed , he will decide if pt. Needs any further F/U. Shari Duron LPN Patient called back stating she had visit with PCP and has decided not to have any further testing at this time. Left message on identified voicemail , she had seen her PCP yesterday, has she made any decisions on furtther testing? Instructed to contact office to let us know. Shari Duron LPN Patient returned call stating she wants to speak with PCP before scheduling anything. She states she is no longer having symptoms and feels better than she ever has. Patient states she will contact office for scheduling after 12/05 office visit with PCP if he feels she should schedule appointments. Lvm for pt to call back and schedule. Amanda Cox Liver spleen us and labs 3 months, see back after these are done Pt called back and stated she doesn't know her summer schedule yet and she will call in to schedule testing as soon as she knows Lvm for pt to call back and schedule. Amanda Cox Liver spleen us and labs 3 months, see back after these are done Patient wants to check her work schedule before scheduling documented in this encounter [facility] 11-02-[address] Davis informed , he will decide if pt. Needs any further F/U. Shari Duron LPN [facility] 11-01-2024 Telephone encounter Note Patient called back stating she had visit with PCP and has decided not to have any further testing at this time. [facility] Work Phone: 11-01-2024 Telephone encounter Note Left message on identified voicemail , she had seen her PCP yesterday, has she made any decisions on furtther testing? Instructed to contact office to let us know. Shari Duron LPN [facility] 10-31-2024 History of Present illness Narrative Chief Complaint Patient presents with: Illness: Fever, Nausea HPI Payton Mcqueen is a 59 year old female who presents here today for illness. Overall feeling pretty good today. Pt here with c/o low grade fever, nausea and not feeling well. Feels this is related to her possible teeth issues and some sinuses. Does have some discomfort into the left ear. Having some residual tenderness on the left side of her face. Just requested Zofran from Hem/Onc. Having two teeth extracted on Thursday and was placed on abx. She finished this on Thursday due to having abscess. Was unable to have removed previously due to infection. Treated with Amoxicillin 500 mg 2 caps at one, then 1 caps TID #30. Reports swelling on the left side of her face has improved but foundry tender. Doesn't want to have any issues getting this removed. Was treated with Diflucan recently due to a yeast infection. This tends to happen after taking abx. Seen virtually. Feels anxiety has improved since no longer working. Currently taking Wellbutrin XL 300 mg once daily and Buspar 15 mg 1 tab po TID. Pt states that she's currently looking for a work and has been reached out to by her previous employer. She is thinking about maybe going back, but at a different capacity. Asking some questions regarding her recent Hem/Onc visit. She is hesitant to pursue any further workup or treatment at this time, since she is doing better after quitting her job. Still working with [employer] due to issues with hives and other skin issues. Reports she's not had any break outs since not working and doing overall well. She's taking Zyrtec 10 mg once daily. Past medical history, appointments, medications, allergies reviewed. Previous Medical History PAST MEDICAL HISTORY Diagnosis Date Acute gastritis without mention of hemorrhage Anxiety Benign neoplasm of stomach Cervical disc disorder with radiculopathy 02/18/2010 Cyst of ovary 01/01/2015 [facility] - see scanned documents Depressive disorder, not elsewhere classified Essential thrombocythemia (HCC) 06/02/2016 GERD (gastroesophageal reflux disease) Hypertension 08/28/11 IC (interstitial cystitis) Impaired fasting glucose 04/02/2010 Lumbar disc disease with radiculopathy 11/15/2010 Metabolic syndrome X Morbid obesity with BMI of 40.0-44.9, adult ([facility]) 08/29/2013 Renal cyst, left 07/03/2016 18 mm, 06/18/16 Sciatica SI (sacroiliac) joint dysfunction 06/04/2011 Thoracolumbar back pain 07/20/2013 Unspecified hypothyroidism Urinary calculus, unspecified Renal stones Previous Surgical History PAST SURGICAL HISTORY Procedure Laterality Date CHOLECYSTECTOMY 1991 Cholecystectomy CYSTOSCOPY,DIL BLADDER,LOCAL ANESTH 01/18/14 EGD TRANSORAL BIOPSY SINGLE/MULTIPLE 04/09/2007 gastritis, gastric polyps KIDNEY SURGERY HX 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 Valadez PAST SURGICAL HISTORY OF WISDOM TEETH EXTRACTIONS PAST SURGICAL HISTORY OF 05/2012 bladder hydrodistension X 2 PAST SURGICAL HISTORY OF 2014 pain injection lumbar- multiple PAST SURGICAL HISTORY OF Cyst removed from head Family History FAMILY HISTORY Problem Relation Age of Onset No Known Problems Mother Diabetes Father Hypertension Father No Known Problems Brother No Known Problems Brother Cancer Maternal Grandmother Lymphoma Heart Maternal Grandfather hypertension Patient Allergies ALLERGIES Allergen Reactions Vesicare [Solifenac* Rash Vibegron Hives Celebrex [Celecoxib] GI Upset upsets stomach after prolonged use ie. 6 weeks Erythromycin GI Upset Lisinopril Other: See Comments Cough, hypotension Metformin GI Upset Mobic [Meloxicam] Vomiting Prochlorperazine Mental Status Change Agitation, felt ill Toradol [Ketorolac] Vomiting Current Medications Current Outpatient Medications on File Prior to Visit Medication Sig fluconazole (DIFLUCAN) 150 mg tablet Take 1 tablet once. Can take another 1 tablet in 72 hours if needed. levothyroxine (SYNTHROID) 175 mcg tablet Take 1 tablet by mouth once daily. Take on empty stomach. For Thyroid. cetirizine (ZYRTEC) 10 mg tablet Take 1 tablet by mouth two times a day. ondansetron (ZOFRAN) 8 mg tablet Take 1 tablet by mouth every 8 hours as needed. omeprazole (PRILOSEC) 40 mg capsule Take 1 capsule by mouth once daily. busPIRone (BUSPAR) 15 mg tablet Take 1 tablet by mouth three times a day. sucralfate (CARAFATE) 1 gram tablet Take 1 tablet by mouth four times daily. Before meals and at bedtime buPROPion XL (WELLBUTRIN XL) 300 mg 24 hr tablet Take 1 tablet by mouth once daily. methenam/sod phos/mblue/hyoscy (UROGESIC-BLUE ORAL) Take 1 capsule by mouth once daily. mirabegron (MYRBETRIQ) 50 mg Tb24 Take 1 tablet by mouth once daily. SACCHAROMYCES BOULARDII (PROBIOTIC, S.BOULARDII, ORAL) Take 1 tablet by mouth once daily. No current facility-administered medications on file prior to visit. Social History Social History Tobacco Use Smoking status: Never Smokeless tobacco: Never Vaping Use Vaping status: Never Used Substance Use Topics Alcohol use: Yes Comment: rarely Drug use: No EXAM: BP 138/70 (BP Position: Sitting) Pulse 76 Temp 37.1 C (98.7 F) (Tympanic) Resp 16 Wt 99.3 kg (218 lb 14.7 oz) LMP 05/09/2018 (Approximate) BMI 37.49 kg/m General Appearance: Well appearing, alert, in no acute distress, well-hydrated, well nourished and Obese. Ears: External ears normal, canals clear. Oropharynx: Lips, mucosa, and tongue normal, teeth and gums normal, oropharynx normal. Neck: Supple, no adenopathy; thyroid symmetric, normal size, no bruits. Lungs: Lungs clear to auscultation. No wheezing, rhonchi, rales.. Heart: RRR without murmur, gallop, or rubs. No ectopy. Health Maintenance List Hepatitis C Screening Never done HIV Screening Never done Hepatitis B Vaccine(1 of 3 - 19+ 3-dose series) Never done Colorectal Cancer Screening Never done Shingrix Vaccine(1 of 2) Never done Pneumococcal Vaccine: 50+(1 of 1 - PCV) Never done BP Controlled (<130/80) due on 10/10/2018 DTaP,Tdap,Td Vaccine(6 - Td or Tdap) due on 12/20/2018 Cervical Cancer Screening due on 04/11/2020 Mammogram Screening due on 01/01/2024 Covid-19 Vaccine( season) due on 02/22/2025 Influenza Vaccine(Season Ended) due on 01/23/2025 Depression Screening due on 02/22/2025 Annual PCP Team Chronic Disease Visit due on 10/03/2025 Diabetes Screening due on 02/19/2027 Lipid Screening due on 12/25/2027 Data reviewed None ASSESSMENT/PLAN: 1. Tooth infection - ICD9: 522.4, ICD10: K04.7 (primary diagnosis) - Treat with 7 day course of Amoxicillin - Follow up with Dentist 2. Vaginal yeast infection - ICD9: 112.1, ICD10: B37.31 - Another course of Diflucan if needed Follow up as needed. I agree with the Chief Complaint, ROS, and Past Histories independently gathered by the clinical data support analyst and the remaining scribed note accurately describes my personal service to the patient. Medical Decision Making: Problems: Low: Acute, uncomplicated illness or injury Risk: Moderate: Drug management Medical Decision Making Level: 3 - Low Sue Weber MD The documentation for this note was completed by Mavis Shen MA acting as scribe for Sue Weber MD. October 31, 2024 7:17 PM. Mavis Shen MA documented in this encounter [facility] 10-31-2024 Note HNO ID: [id number] Author: SUE WEBER MD Service: ? Author Type: Physician Type: Progress Notes Filed: 10/31/2024 19:33 Note Text: Chief Complaint Patient presents with: Illness: Fever, Nausea HPI Payton Mcqueen is a 59 year old female who presents here today for illness. Overall feeling pretty good today. Pt here with c/o low grade fever, nausea and not feeling well. Feels this is related to her possible teeth issues and some sinuses. Does have some discomfort into the left ear. Having some residual tenderness on the left side of her face. Just requested Zofran from Hem/Onc. Having two teeth extracted on Thursday and was placed on abx. She finished this on Thursday due to having abscess. Was unable to have removed previously due to infection. Treated with Amoxicillin 500 mg 2 caps at one, then 1 caps TID #30. Reports swelling on the left side of her face has improved but foundry tender. Doesn't want to have any issues getting this removed. Was treated with Diflucan recently due to a yeast infection. This tends to happen after taking abx. Seen virtually. Feels anxiety has improved since no longer working. Currently taking Wellbutrin XL 300 mg once daily and Buspar 15 mg 1 tab po TID. Pt states that she's currently looking for a work and has been reached out to by her previous employer. She is thinking about maybe going back, but at a different capacity. Asking some questions regarding her recent Hem/Onc visit. She is hesitant to pursue any further workup or treatment at this time, since she is doing better after quitting her job. Still working with [employer] due to issues with hives and other skin issues. Reports she's not had any break outs since not working and doing overall well. She's taking Zyrtec 10 mg once daily. Past medical history, appointments, medications, allergies reviewed. Previous Medical History PAST MEDICAL HISTORY Diagnosis Date Acute gastritis without mention of hemorrhage Anxiety Benign neoplasm of stomach Cervical disc disorder with radiculopathy 02/18/2010 Cyst of ovary 01/01/2015 [facility] - see scanned documents Depressive disorder, not elsewhere classified Essential thrombocythemia (HCC) 06/02/2016 GERD (gastroesophageal reflux disease) Hypertension 08/28/11 IC (interstitial cystitis) Impaired fasting glucose 04/02/2010 Lumbar disc disease with radiculopathy 11/15/2010 Metabolic syndrome X Morbid obesity with BMI of 40.0-44.9, adult (HCC) 08/29/2013 Renal cyst, left 07/03/2016 18 mm, 06/18/16 Sciatica SI (sacroiliac) joint dysfunction 06/04/2011 Thoracolumbar back pain 07/20/2013 Unspecified hypothyroidism Urinary calculus, unspecified Renal stones Previous Surgical History PAST SURGICAL HISTORY Procedure Laterality Date CHOLECYSTECTOMY 1991 Cholecystectomy CYSTOSCOPY,DIL BLADDER,LOCAL ANESTH 01/18/14 EGD TRANSORAL BIOPSY SINGLE/MULTIPLE 04/09/2007 gastritis, gastric polyps KIDNEY SURGERY HX 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 Valadez PAST SURGICAL HISTORY OF WISDOM TEETH EXTRACTIONS PAST SURGICAL HISTORY OF 05/2012 bladder hydrodistension X 2 PAST SURGICAL HISTORY OF 2014 pain injection lumbar- multiple PAST SURGICAL HISTORY OF Cyst removed from head Family History FAMILY HISTORY Problem Relation Age of Onset No Known Problems Mother Diabetes Father Hypertension Father No Known Problems Brother No Known Problems Brother Cancer Maternal Grandmother Lymphoma Heart Maternal Grandfather hypertension Patient Allergies ALLERGIES Allergen Reactions Vesicare [Solifenac* Rash Vibegron Hives Celebrex [Celecoxib] GI Upset upsets stomach after prolonged use ie. 6 weeks Erythromycin GI Upset Lisinopril Other: See Comments Cough, hypotension Metformin GI Upset Mobic [Meloxicam] Vomiting Prochlorperazine Mental Status Change Agitation, felt ill Toradol [Ketorolac] Vomiting Current Medications Current Outpatient Medications on File Prior to Visit Medication Sig fluconazole (DIFLUCAN) 150 mg tablet Take 1 tablet once. Can take another 1 tablet in 72 hours if needed. levothyroxine (SYNTHROID) 175 mcg tablet Take 1 tablet by mouth once daily. Take on empty stomach. For Thyroid. cetirizine (ZYRTEC) 10 mg tablet Take 1 tablet by mouth two times a day. ondansetron (ZOFRAN) 8 mg tablet Take 1 tablet by mouth every 8 hours as needed. omeprazole (PRILOSEC) 40 mg capsule Take 1 capsule by mouth once daily. busPIRone (BUSPAR) 15 mg tablet Take 1 tablet by mouth three times a day. sucralfate (CARAFATE) 1 gram tablet Take 1 tablet by mouth four times daily. Before meals and at bedtime buPROPion XL (WELLBUTRIN XL) 300 mg 24 hr tablet Take 1 tablet by mouth once daily. methenam/sod phos/mblue/hyoscy (UROGESIC-BLUE ORAL) Take 1 capsule by mouth once daily. mirabegron (MYRBETRIQ) 50 mg Tb24 Take 1 tablet by mouth once daily. SACCHAROMYCES BOULARDII (PROB (more content not included)... [facility] 10-30-2024 Instructions Niecy Shay APRN.CLERICAL SUPERVISOR - 10/30/2024 3:24 PM EDT - A prescription for two 150 mg doses of fluconazole has been sent to [facility] for your yeast infection. - Take the first fluconazole dose as soon as you pick it up. - Expect some relief within 3 days and full symptom resolution by 1 week. - If you notice any improvement by day 3, skip the second dose. If burning, itching, or irritation persist or worsen after 1 week, take the second dose. - Continue all your other current medications as prescribe documented in this encounter [facility] 10-30-2024 Note HNO ID: [id number] Author: NIECY SHAY APRN.CNP Service: ? Author Type: Nurse Practitioner Type: Progress Notes Filed: 10/30/2024 15:25 Note Text: Telemedicine Visit - Distance Health Virtual Visit Note Patient seen on [facility] through Zoom Video Visit Location of patient: [place] Person(s) present on virtual visit: Patient Subjective The patient is a 59-year-old female presenting for recurrent yeast infection symptoms following antibiotic use for a dental issue. Yeast Infection: - Recurrent yeast infection symptoms following two rounds of antibiotics for a dental issue. - Symptoms resolved after taking fluconazole following the first round of antibiotics. - Symptoms recurred after starting the second round of antibiotics. - Symptoms began 3 days ago, including vaginal burning, irritation, and itching. - Tried [id number] clotrimazole cream with no relief. - Denies urinary symptoms, flank pain, dyspnea, chest pain, fevers, chills, hematuria, nausea, or emesis. - No other yeast infections in the past year. - No risk or history of sexually transmitted infections. Dental Issue: - Bad tooth requiring extraction, scheduled for Thursday. - Completed two rounds of antibiotics. Constitutional: (-) fever, (-) chills Cardiovascular: (-) chest pain Respiratory: (-) shortness of breath Gastrointestinal: (-) nausea, (-) vomiting Genitourinary: (+) vaginal burning, (+) vaginal irritation, (+) vaginal pruritus, (-) urinary symptoms, (-) flank pain, (-) hematuria Objective Last menstrual period 05/09/2018. General: No acute distress. Assessment AND Plan 1. Vaginal discharge (N89.8) 2. Vaginal itching (N89.8) - Symptoms of vaginal burning, irritation, and itching began three days ago following a second round of antibiotics for a dental infection. - Previous episode of similar symptoms resolved with fluconazole. - No urinary symptoms, flank pain, dyspnea, chest pain, fevers, chills, hematuria, nausea, or vomiting reported. - No history of sexually transmitted infections. - Prescribed fluconazole 150 mg, two doses. Advised to take the first dose immediately and the second dose only if symptoms persist or worsen in 3 days - Prescription sent to [facility] using [employer] software for draft documentation of the visit was discussed with the patient/authorized sales and service representative; all questions welcomed and answered. Patient/authorized sales and service representative agreed to proceed Disposition The patient was discharged. - All questions answered. Patient and/or caregiver verbalized understanding and comfortable with plan. I have communicated my name and active licensure. The patient's identity and physical location were verified at the time of this visit. Either the patient or their legal sales and service representative has been informed of the risks and benefits of -- and alternatives to -- treatment through a remote evaluation and consents to proceed with the evaluation remotely. Niecy Shay APRN.[facility] 10-30-2024 History of Present illness Narrative Telemedicine Visit - Distance Health Virtual Visit Note Patient seen on [facility] through Zoom Video Visit Location of patient: [place] Person(s) present on virtual visit: Patient Subjective The patient is a 59-year-old female presenting for recurrent yeast infection symptoms following antibiotic use for a dental issue. Yeast Infection: - Recurrent yeast infection symptoms following two rounds of antibiotics for a dental issue. - Symptoms resolved after taking fluconazole following the first round of antibiotics. - Symptoms recurred after starting the second round of antibiotics. - Symptoms began 3 days ago, including vaginal burning, irritation, and itching. - Tried [id number] clotrimazole cream with no relief. - Denies urinary symptoms, flank pain, dyspnea, chest pain, fevers, chills, hematuria, nausea, or emesis. - No other yeast infections in the past year. - No risk or history of sexually transmitted infections. Dental Issue: - Bad tooth requiring extraction, scheduled for Thursday. - Completed two rounds of antibiotics. Constitutional: (-) fever, (-) chills Cardiovascular: (-) chest pain Respiratory: (-) shortness of breath Gastrointestinal: (-) nausea, (-) vomiting Genitourinary: (+) vaginal burning, (+) vaginal irritation, (+) vaginal pruritus, (-) urinary symptoms, (-) flank pain, (-) hematuria Objective Last menstrual period 05/09/2018. General: No acute distress. Assessment & Plan 1. Vaginal discharge (N89.8) 2. Vaginal itching (N89.8) - Symptoms of vaginal burning, irritation, and itching began three days ago following a second round of antibiotics for a dental infection. - Previous episode of similar symptoms resolved with fluconazole. - No urinary symptoms, flank pain, dyspnea, chest pain, fevers, chills, hematuria, nausea, or vomiting reported. - No history of sexually transmitted infections. - Prescribed fluconazole 150 mg, two doses. Advised to take the first dose immediately and the second dose only if symptoms persist or worsen in 3 days - Prescription sent to [facility] using [employer] software for draft documentation of the visit was discussed with the patient/authorized sales and service representative; all questions welcomed and answered. Patient/authorized sales and service representative agreed to proceed Disposition The patient was discharged. - All questions answered. Patient and/or caregiver verbalized understanding and comfortable with plan. I have communicated my name and active licensure. The patient's identity and physical location were verified at the time of this visit. Either the patient or their legal sales and service representative has been informed of the risks and benefits of -- and alternatives to -- treatment through a remote evaluation and consents to proceed with the evaluation remotely. Niecy Shay APRN.CNP documented in this encounter [facility] [facility] Telephone encounter Note Patient returned call stating she wants to speak with PCP before scheduling anything. She states she is no longer having symptoms and feels better than she ever has. Patient states she will contact office for scheduling after 12/05 office visit with PCP if he feels she should schedule appointments. [facility] 10-25-2024 Telephone encounter Note Lvm for pt to call back and schedule. Amanda Cox [facility] 10-16-2024 Instructions Judith Mcpherson, LEIGH.CLERICAL SUPERVISOR - 10/16/2024 3:16 PM EDT - Fluconazole (Diflucan) 150 mg tablet: take one dose now and repeat in 72 hours; prescription sent to [facility] in [place]. - Continue applying [id number] clotrimazole cream externally as needed for outside itching or irritation - Keep the vaginal area clean and dry: shower instead of bathing and avoid scented lotions or soaps - Wear cotton underwear and avoid tight or restrictive clothing in the genital area - If itching or burning does not improve after the two fluconazole doses or worsens, contact your primary care provider VAGINAL YEAST INFECTION INTRODUCTION Vaginal yeast infections are a common problem in women. Vaginal yeast infections are also called yeast vaginitis or vaginal candidiasis. The most common symptoms of a yeast infection are itching and irritation of the vulva and around the opening of the vagina. Yeast infections occur mainly in women who are menstruating (having monthly periods). They are less common in postmenopausal women who do not take estrogen and in girls who have not yet started menstruating. VAGINAL YEAST INFECTION SYMPTOMS The most common symptoms of a yeast infection include: Itching or irritation of the vulva and around the vaginal opening. Pain with urination, vulvar soreness or irritation, Pain with intercourse Reddened and swollen vulvar and vaginal tissues. Some women have no abnormal vaginal discharge. Others have white clumpy (curd-like) or watery vaginal discharge. Symptoms of a yeast infection are similar to a number of other conditions, including bacterial vaginosis (a bacterial infection of the vagina), trichomoniasis (a sexually transmitted infection), and dermatitis (irritated skin). It is often not possible to know if itching is caused by yeast or other causes. VAGINAL YEAST INFECTION CAUSE The fungus that causes yeast infections (named Jimena) normally lives in the gastrointestinal tract and sometimes the vagina. Normally, Jimena causes no symptoms. However, when there are changes in the normal bernabe of the gastrointestinal tract and vagina (caused by medicines, injury, or stress to the immune system), Jimena can overgrow and cause the symptoms described above. VAGINAL YEAST INFECTION RISK FACTORS In most women, there is no underlying health problem that leads to a yeast infection. There are several risk factors that may increase the chances of developing an infection, including: Antibiotics -- Most antibiotics kill a wide variety of bacteria, including those that normally live in the vagina. These bacteria protect the vagina from the overgrowth of yeast. Some women are prone to yeast infections while taking antibiotics. Hormonal contraceptives (eg, control pills, patch, and vaginal ring) -- The risk of yeast infections may be higher in women who use control methods containing estrogen. Contraceptive devices -- Vaginal sponges, diaphragms, and intrauterine devices (IUDs) may increase the risk of yeast infections. Spermicides do not usually cause yeast infections, although they can cause you to have vaginal or vulvar irritation. Weakened immune system -- Yeast infections are more common in people who have a weakened immune system due to HIV or use of certain medications (steroids, chemotherapy, post-organ transplant medications). -- Vaginal discharge becomes more noticeable during , although yeast infection is not always the cause. Diabetes -- Women with diabetes are at higher risk for yeast infections, especially if blood sugar levels are often higher than normal. Sexual activity -- Vaginal yeast infections are not a sexually transmitted infection. They can occur in women who have never been sexually active, but are more common in women who are sexually active. VAGINAL YEAST INFECTION DIAGNOSIS Yeast infections can be diagnosed with an exam. During the exam, your doctor or nurse will examine your vulva and vagina and swab the vagina to get a sample of discharge. Do not begin treatment at home before being examined. Self-diagnosis -- Women with vulvar itching or vaginal discharge often assume that their symptoms are caused by a yeast infection and then use a non-prescription treatment. However, in one study, only 11 percent of women accurately diagnosed their infection; women with a previous yeast infection were only slightly more accurate (35 percent correct). Diagnosing and treating yourself: Wastes money (on non-prescription treatment) Wastes time; you will not feel better until you use the right treatment Can make you more itchy and irritated VAGINAL YEAST INFECTION TREATMENT Treatment of a vaginal yeast infection may include a pill that you take by mouth or a vaginal treatment. Vaginal treatment -- Treatment for a vaginal yeast infection often includes a vaginal cream or tablet. You apply the cream or tablet inside the vagina at bedtime with an applicator. There are prescription and non-prescription treatments, so ask your doctor or nurse which to use. One, three, and seven-day treatments are equally effective. Oral treatment -- A prescription pill called fluconazole (Diflucan ) is another option for treating yeast infections. Most women only need one dose, although women with more complicated infections (such as those with underlying medical problems, recurrent yeast infections, or severe signs and symptoms) may require a second dose 72 hours (3 days) after the first dose. Side effects of fluconazole are mild and infrequent, but may include stomach upset, headache, and rash. Fluconazole interacts with a number of medications; ask your doctor, nurse, or pharmacist if you have concerns. Fluconazole is not usually recommended during the first trimester of due to the potential risk of harm to the fetus. When will I feel better? -- Most yeast infections go away within a few days after starting treatment. However, you may continue to feel itchy and irritated, even after the infection is gone. If you do not get better within a few days after finishing treatment, call your doctor or nurse for advice. RECURRENT VAGINAL YEAST INFECTIONS Between 5 and 8 percent of women have recurrent yeast infections, defined as more than four infections per year. There is no evidence that eating yogurt or other products containing live Lactobacillus acidophilus, or applying these products to the vagina is of any benefit in women with recurrent vaginal yeast infections. Diagnosis -- As with initial yeast infections, it is important to correctly diagnose recurrent yeast infections. A woman who has frequent signs and symptoms of vulvar or vaginal irritation or itching should be seen by a healthcare provider to ensure that her symptoms are caused by yeast rather than other common problems (eg, other vaginal infections, allergic reaction or sensitivity, eczema). As with initial infections, self-diagnosis is not accurate enough to recommend treatment. Treatment -- Women with recurrent infections are usually given a longer course of treatment for infections, between 7 and 14 days for a topical (cream or suppository) medication or fluconazole 150 mg by mouth with a second and third dose 3 and 6 days later. Preventive treatment may be recommended after the infection has resolved; this may include fluconazole (150 mg orally once per week) or clotrimazole (500 mg vaginal suppositories administered once per week). Treatment of a sexual partner -- Vaginal yeast infections are not a sexually transmitted infection, although the infection may rarely be passed from one partner to another. Most experts do not recommend treatment of a sexual partner. SUMMARY Vaginal yeast infections are a common problem in women. Itching is the most common symptom of a vaginal yeast infection. Women may also note pain with urination, soreness or irritation, pain with intercourse, or reddened and swollen vulvar and vaginal tissues. There is often little or no vaginal discharge; if present, discharge is typically white and clumpy (curd-like) or thin and watery. Symptoms of a yeast infection are similar to a number of other conditions. A physical examination is needed to determine the cause of symptoms. There are several risk factors that may increase the chances of developing a yeast infection, including use of antibiotics, control, diabetes, , and a weakened immune system (due to chemotherapy, HIV, or certain medications). To diagnose a vaginal yeast infection, a healthcare provider will do an examination. It is important to be seen when symptoms are bothersome and before any treatment is used. Do not begin treatment for a yeast infection before being examined. Treatment of vaginal yeast infection may include a vaginal cream or tablet or a pill taken by mouth. documented in this encounter [facility] 10-16-2024 Note HNO ID: [id number] Author: JUDITH MCPHERSON APRN.BUD Service: ? Author Type: Nurse Practitioner Type: Progress Notes Filed: 10/16/2024 15:17 Note Text: Telemedicine Visit - Distance Health Virtual Visit Note Patient seen on Event[employer]ist Video Visit platform. Location of patient: [place] I have communicated my name and active licensure. The patient's identity and physical location were verified at the time of this visit. Either the patient or their legal sales and service representative has been informed of the risks and benefits of -- and alternatives to -- treatment through a remote evaluation and consents to proceed with the evaluation remotely. Subjective The patient is a 59-year-old female presenting with symptoms of a yeast infection. Yeast Infection: - Onset of symptoms began yesterday, including severe pruritus and burning. - Applying OTC clotrimazole cream externally with some relief. - Denies malodorous discharge, dysuria, urinary frequency, or urgency. - Denies abdominal or back pain. - Reports recurrent yeast infections with antibiotic use; has taken Diflucan in the past, sometimes requiring multiple doses. Dental Abscess: - Currently taking amoxicillin 500 mg TID x 10 days for a dental abscess, started on Thursday. - Scheduled for tooth extraction on Thursday. - Reports intermittent fevers up to 100.3 degreeF, managed with alternating Tylenol and Advil. Constitutional: (+) fever, (-) chills Ears/Nose/Mouth/Throat: (+) tooth pain Gastrointestinal: (-) abdominal pain Genitourinary: (+) vaginal itching, (+) vaginal burning, (+) vaginal discharge, (-) urinary frequency, (-) urinary urgency, (-) foul odor Objective Last menstrual period 05/09/2018. Video Exam (Examination performed via Video enabled technology) General Appearance: Alert, oriented, pleasant, in NAD: Yes Ill appearing: No Lethargic appearing: No Respiratory distress: No Abdomen: non-tender by self palpation Assessment AND Plan 1. Acute vaginitis (N76.0) - Likely secondary to antibiotic use for dental abscess. - Initiated fluconazole 150 mg orally, with a second dose to be taken in 72 hours. - Continue external application of clotrimazole cream. - Advised general measures: keep vaginal area clean and dry, avoid baths and scented lotions, wear cotton underwear, and avoid restrictive clothing. - If symptoms persist or worsen, follow up with primary care physician. - Prescription sent to [facility] in [place]. Recording using Online [employer] Platform software for draft documentation of the visit was discussed with the patient/authorized sales and service representative; all questions welcomed and answered. Patient/authorized sales and service representative agreed to proceed IF YOUR SYMPTOMS PERSIST OR WORSENING IN THE NEXT 5-7 DAYS THEN PLEASE FOLLOW UP WITH YOUR PCP - Red flags discussed for need for in person care - All questions answered Judith Mcpherson APRN.CLERICAL SUPERVISOR Differential Diagnoses - is more likely for the following reason(s): suggested by HANDP CODIN [facility] 10-16-2024 History of Present illness Narrative Telemedicine Visit - Distance Health Virtual Visit Note Patient seen on Event[employer]ist Video Visit platform. Location of patient: [place] I have communicated my name and active licensure. The patient's identity and physical location were verified at the time of this visit. Either the patient or their legal sales and service representative has been informed of the risks and benefits of -- and alternatives to -- treatment through a remote evaluation and consents to proceed with the evaluation remotely. Subjective The patient is a 59-year-old female presenting with symptoms of a yeast infection. Yeast Infection: - Onset of symptoms began yesterday, including severe pruritus and burning. - Applying OTC clotrimazole cream externally with some relief. - Denies malodorous discharge, dysuria, urinary frequency, or urgency. - Denies abdominal or back pain. - Reports recurrent yeast infections with antibiotic use; has taken Diflucan in the past, sometimes requiring multiple doses. Dental Abscess: - Currently taking amoxicillin 500 mg TID x 10 days for a dental abscess, started on Thursday. - Scheduled for tooth extraction on Thursday. - Reports intermittent fevers up to 100.3 degreeF, managed with alternating Tylenol and Advil. Constitutional: (+) fever, (-) chills Ears/Nose/Mouth/Throat: (+) tooth pain Gastrointestinal: (-) abdominal pain Genitourinary: (+) vaginal itching, (+) vaginal burning, (+) vaginal discharge, (-) urinary frequency, (-) urinary urgency, (-) foul odor Objective Last menstrual period 05/09/2018. Video Exam (Examination performed via Video enabled technology) General Appearance: Alert, oriented, pleasant, in NAD: Yes Ill appearing: No Lethargic appearing: No Respiratory distress: No Abdomen: non-tender by self palpation Assessment & Plan 1. Acute vaginitis (N76.0) - Likely secondary to antibiotic use for dental abscess. - Initiated fluconazole 150 mg orally, with a second dose to be taken in 72 hours. - Continue external application of clotrimazole cream. - Advised general measures: keep vaginal area clean and dry, avoid baths and scented lotions, wear cotton underwear, and avoid restrictive clothing. - If symptoms persist or worsen, follow up with primary care physician. - Prescription sent to [facility] in [place]. Recording using [employer] Platform software for draft documentation of the visit was discussed with the patient/authorized sales and service representative; all questions welcomed and answered. Patient/authorized sales and service representative agreed to proceed IF YOUR SYMPTOMS PERSIST OR WORSENING IN THE NEXT 5-7 DAYS THEN PLEASE FOLLOW UP WITH YOUR PCP - Red flags discussed for need for in person care - All questions answered Judith Mcpherson APRN.CLERICAL SUPERVISOR Differential Diagnoses - is more likely for the following reason(s): suggested by H[employer]P CODIN documented in this encounter [facility] 10-03-2024 Note HNO ID: [id number] Author: MAUDE REEVES PA-C Service: ? Author Type: Physician Tape Stringer Type: Progress Notes Filed: 10/03/2024 08:44 Note Text: Chief Complaint Patient presents with: Eye Problem: Red under right eye x 3 days. Is getting redness under lefteye also HPI Payton Mcqueen is a 59 year old female who presents here today for Above Complaints.. Right Eye Irritation and Swelling: - Onset yesterday. - Noticed redness and swelling under the right eye and inside the eyelid. - Similar symptoms in the fall, treated with Polytrim eye drops. - Started using Polytrim eye drops again yesterday; reports some relief but symptoms persist. - Concerned about potential contagion. - Glasses irritate the eye, leading to removal. - Denies known trauma. Recent Viral Illness: - Recent viral illness with low-grade fever and ear discomfort. - Symptoms included crunching sensation in the ear when holding breath. - Currently experiencing drainage rather than crunching. - Mild sinus pain, more pronounced on the right side. COVID-19: - History of COVID-19 infection twice within five weeks. - Reports weird rashes since COVID-19 infections. - Feels she is now recovering and returning to normal. Past medical history, appointments, medications, allergies reviewed. Previous Medical History PAST MEDICAL HISTORY Diagnosis Date Acute gastritis without mention of hemorrhage Anxiety Benign neoplasm of stomach Cervical disc disorder with radiculopathy 02/18/2010 Cyst of ovary 01/01/2015 [facility] - see scanned documents Depressive disorder, not elsewhere classified Essential thrombocythemia (HCC) 06/02/2016 GERD (gastroesophageal reflux disease) Hypertension 08/28/11 IC (interstitial cystitis) Impaired fasting glucose 04/02/2010 Lumbar disc disease with radiculopathy 11/15/2010 Metabolic syndrome X Morbid obesity with BMI of 40.0-44.9, adult (HCC) 08/29/2013 Renal cyst, left 07/03/2016 18 mm, 06/18/16 Sciatica SI (sacroiliac) joint dysfunction 06/04/2011 Thoracolumbar back pain 07/20/2013 Unspecified hypothyroidism Urinary calculus, unspecified Renal stones Previous Surgical History PAST SURGICAL HISTORY Procedure Laterality Date CHOLECYSTECTOMY 1991 Cholecystectomy CYSTOSCOPY,DIL BLADDER,LOCAL ANESTH 01/18/14 EGD TRANSORAL BIOPSY SINGLE/MULTIPLE 04/09/2007 gastritis, gastric polyps KIDNEY SURGERY HX 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 6 weeks Erythromycin GI Upset Lisinopril Unknown Cough, hypotension Metformin GI Upset Mobic [Meloxicam] Vomiting Prochlorperazine Mental Status Change Agitation, felt ill Toradol [Ketorolac] Vomiting Vesicare [Solifenac* Rash Current Medications Current Outpatient Medications on File Prior to Visit Medication Sig EPINEPHrine (EPIPEN) 0.3 mg/0.3 mL auto-injector Inject 0.3 mL intramuscularly as needed. cetirizine (ZYRTEC) 10 mg tablet Take 1 tablet by mouth two times a day. ondansetron (ZOFRAN) 8 mg tablet Take 1 tablet by mouth every 8 hours as needed. omeprazole (PRILOSEC) 40 mg capsule Take 1 capsule by mouth once daily. levothyroxine (SYNTHROID) 175 mcg tablet Take 1 tablet by mouth once daily. Take on empty stomach. For Thyroid. busPIRone (BUSPAR) 15 mg tablet Take 1 tablet by mouth three times a day. sucralfate (CARAFATE) 1 gram tablet Take 1 tablet by mouth four times daily. Before meals and at bedtime buPROPion XL (WELLBUTRIN XL) 300 mg 24 hr tablet Take 1 tablet by mouth once daily. methenam/sod phos/mblue/hyoscy (UROGESIC-BLUE ORAL) Take 1 capsule by mouth once daily. mirabegron (MYRBETRIQ) 50 mg Tb24 Take 1 tablet by mouth once daily. SACCHAROMYCES BOULARDII (PROBIOTIC, S.BOULARDII, ORAL) Take 1 tablet by mouth once daily. No current facility-administered medications on file prior to visit. Social History Social History Tobacco Use Smoking status: Never Smokeless tobacco: Never Vaping Use Vaping status: Never Used Substance Use Topics Alcohol use: Yes Comment: rarely Drug use: No Review of Symptoms REVIEW OF SYSTEMS SEE HPI EXAM: BP 150/82 (BP Site: Right Arm, BP Position: Sitting, BP Cuff Size: Regular Adult) Pulse 73 Temp 36.9 ?C (98.4 ?F) Resp 18 Wt 98 kg (216 lb) LMP 05/09/2018 (Approximate) SpO2 96% B (more content not included)... [facility] 10-03-2024 History of Present illness Narrative Chief Complaint Patient presents with: Eye Problem: Red under right eye x 3 days. Is getting redness under lefteye also HPI Payton Mcqueen is a 59 year old female who presents here today for Above Complaints.. Right Eye Irritation and Swelling: - Onset yesterday. - Noticed redness and swelling under the right eye and inside the eyelid. - Similar symptoms in the fall, treated with Polytrim eye drops. - Started using Polytrim eye drops again yesterday; reports some relief but symptoms persist. - Concerned about potential contagion. - Glasses irritate the eye, leading to removal. - Denies known trauma. Recent Viral Illness: - Recent viral illness with low-grade fever and ear discomfort. - Symptoms included crunching sensation in the ear when holding breath. - Currently experiencing drainage rather than crunching. - Mild sinus pain, more pronounced on the right side. COVID-19: - History of COVID-19 infection twice within five weeks. - Reports weird rashes since COVID-19 infections. - Feels she is now recovering and returning to normal. Past medical history, appointments, medications, allergies reviewed. Previous Medical History PAST MEDICAL HISTORY Diagnosis Date Acute gastritis without mention of hemorrhage Anxiety Benign neoplasm of stomach Cervical disc disorder with radiculopathy 02/18/2010 Cyst of ovary 01/01/2015 [facility] - see scanned documents Depressive disorder, not elsewhere classified Essential thrombocythemia (HCC) 06/02/2016 GERD (gastroesophageal reflux disease) Hypertension 08/28/11 IC (interstitial cystitis) Impaired fasting glucose 04/02/2010 Lumbar disc disease with radiculopathy 11/15/2010 Metabolic syndrome X Morbid obesity with BMI of 40.0-44.9, adult (HCC) 08/29/2013 Renal cyst, left 07/03/2016 18 mm, 06/18/16 Sciatica SI (sacroiliac) joint dysfunction 06/04/2011 Thoracolumbar back pain 07/20/2013 Unspecified hypothyroidism Urinary calculus, unspecified Renal stones Previous Surgical History PAST SURGICAL HISTORY Procedure Laterality Date CHOLECYSTECTOMY 1991 Cholecystectomy CYSTOSCOPY,DIL BLADDER,LOCAL ANESTH 01/18/14 EGD TRANSORAL BIOPSY SINGLE/MULTIPLE 04/09/2007 gastritis, gastric polyps KIDNEY SURGERY HX 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 6 weeks Erythromycin GI Upset Lisinopril Unknown Cough, hypotension Metformin GI Upset Mobic [Meloxicam] Vomiting Prochlorperazine Mental Status Change Agitation, felt ill Toradol [Ketorolac] Vomiting Vesicare [Solifenac* Rash Current Medications Current Outpatient Medications on File Prior to Visit Medication Sig EPINEPHrine (EPIPEN) 0.3 mg/0.3 mL auto-injector Inject 0.3 mL intramuscularly as needed. cetirizine (ZYRTEC) 10 mg tablet Take 1 tablet by mouth two times a day. ondansetron (ZOFRAN) 8 mg tablet Take 1 tablet by mouth every 8 hours as needed. omeprazole (PRILOSEC) 40 mg capsule Take 1 capsule by mouth once daily. levothyroxine (SYNTHROID) 175 mcg tablet Take 1 tablet by mouth once daily. Take on empty stomach. For Thyroid. busPIRone (BUSPAR) 15 mg tablet Take 1 tablet by mouth three times a day. sucralfate (CARAFATE) 1 gram tablet Take 1 tablet by mouth four times daily. Before meals and at bedtime buPROPion XL (WELLBUTRIN XL) 300 mg 24 hr tablet Take 1 tablet by mouth once daily. methenam/sod phos/mblue/hyoscy (UROGESIC-BLUE ORAL) Take 1 capsule by mouth once daily. mirabegron (MYRBETRIQ) 50 mg Tb24 Take 1 tablet by mouth once daily. SACCHAROMYCES BOULARDII (PROBIOTIC, S.BOULARDII, ORAL) Take 1 tablet by mouth once daily. No current facility-administered medications on file prior to visit. Social History Social History Tobacco Use Smoking status: Never Smokeless tobacco: Never Vaping Use Vaping status: Never Used Substance Use Topics Alcohol use: Yes Comment: rarely Drug use: No Review of Symptoms REVIEW OF SYSTEMS SEE HPI EXAM: BP 150/82 (BP Site: Right Arm, BP Position: Sitting, BP Cuff Size: Regular Adult) Pulse 73 Temp 36.9 C (98.4 F) Resp 18 Wt 98 kg (216 lb) LMP 05/09/2018 (Approximate) SpO2 96% BMI 36.99 kg/m GENERAL: NAD, alert and oriented SKIN: Unremarkable, no rash or skin lesions. HEAD: Normocephalic EYES: PERRLA, EOMI, conjunctiva clear EARS: External ears normal, canals clear, TM's normal. NOSE/SINUSES: Nares normal. Septum midline. OROPHARYNX: Lips, mucosa, and tongue normal, good dentition. No oral lesions noted. NECK: Supple, no lymphadenopathy, normal thyroid, no carotid bruits. LUNGS: Clear to auscultation bilaterally, no wheezes/rhonchi/rales. HEART: Regular rate and rhythm, no murmurs. No ectopy. EXTREMITIES: Normal, no deformities, no skin discoloration, no edema. NEURO: Awake, alert and oriented x3, cranial nerves II-XII grossly intact, normal gait, no involuntary motions Health Maintenance List Hepatitis B Vaccine(1 of 3 - 19+ 3-dose series) Never done Colorectal Cancer Screening Never done Shingrix Vaccine(1 of 2) Never done Pneumococcal Vaccine: 50+(1 of 1 - PCV) Never done BP Controlled (<130/80) due on 10/10/2018 DTaP,Tdap,Td Vaccine(6 - Td or Tdap) due on 12/20/2018 Cervical Cancer Screening due on 04/11/2020 Mammogram Screening due on 01/01/2024 Hepatitis C Screening due on 10/15/2024 HIV Screening due on 10/15/2024 Covid-19 Vaccine( season) due on 02/22/2025 Influenza Vaccine(Season Ended) due on 01/23/2025 Depression Screening due on 02/22/2025 Annual PCP Team Chronic Disease Visit due on 10/03/2025 Diabetes Screening due on 02/19/2027 Lipid Screening due on 12/25/2027 Data reviewed N/a Assessment and Plan 1. Allergic conjunctivitis, bilateral (H10.13) - Exam reveals redness along the eyelid margins and swelling underneath the eyes, consistent with allergic conjunctivitis. - Symptoms may be related to recent viral infection; advised patient to continue using Polytrim eye drops. - Prescribed topical gel for additional relief. - Educated on good hand hygiene to prevent potential spread. - Advised use of warm or cool compresses to alleviate swelling. - Symptoms are expected to resolve over time; instructed to monitor for improvement over the next few days to a week. - Patient to return for evaluation if symptoms worsen. 2. Hordeolum externum of left lower eyelid (H00.015) - As above Maude Reeves PA-C Recording using [employer] software for draft documentation of the visit was discussed with the patient/authorized sales and service representative; all questions welcomed and answered. Patient/authorized sales and service representative agreed to proceed documented in this encounter [facility] 09-02-2024 Telephone encounter Note Liver spleen us and labs 3 months, see back after these are done [facility] 09-01-2024 Telephone encounter Note Pt called back and stated she doesn't know her summer schedule yet and she will call in to schedule testing as soon as she knows [facility] 09-01-2024 Telephone encounter Note Lvm for pt to call back and schedule. Amanda Cox [facility] 08-31-2024 Telephone encounter Note Liver spleen us and labs 3 months, see back after these are done Patient wants to check her work schedule before scheduling [facility] 08-31-2024 Note HNO ID: [id number] Author: GADIEL DAVIS MD Service: ? Author Type: Physician Type: Progress Notes Filed: 08/31/2024 13:10 Note Text: (Elements copied from my note dated August 22, 2024, have been reviewed and updated where appropriate, and all reflect current assessment and medical decision making from today's encounter, August 31, 2024) HISTORY OF PRESENT ILLNESS: Payton Mcqueen is a 59 year old female dx with ET in 2019, was on Hydrea but had nausea and vomiting. Since developed iron deficiency, Dr Pineda attributed to cystitis. Here for follow up was seeing heme at [facility] last few times. Looks like dx morphed from ET to PCV in notes. She has never had erythrocytosis. Dr Caputo' notes reviewed also Here for follow up, having issues with recurring rash, itchy, face hands break out, takes antihistamine which helps. Also kenalog shots resolves. Saw dermatology and allergy, tryptase level was 24, then 28. KIT mutation negative. Here for follow up, feeling very anxious about testing, also feels she wouldn't take imatinib even if diease is present. Long chat about alternative options. Her skin seems better, on zyrtec CLINICAL IMPRESSION: ET, JAK2 positive Elevated tryptase level, ?mastocytosis She is not keen on pursuing a work up at this time RECOMMENDATION/PLAN: 1. In lieu of scans and marrow biopsy will watch liver enzymes every 3 months, serial spleen US, update tryptase level prior to next visit as well. We will re visit idea of marrow biopsy if thre is further indication for such. Written and verbal health teaching given to patient, patient verbalizes understanding and agrees with treatment plan. PAST MEDICAL HISTORY Diagnosis Date Acute gastritis without mention of hemorrhage Anxiety Benign neoplasm of stomach Cervical disc disorder with radiculopathy 02/18/2010 Cyst of ovary 01/01/2015 [facility] - see scanned documents Depressive disorder, not elsewhere classified Essential thrombocythemia (HCC) 06/02/2016 GERD (gastroesophageal reflux disease) Hypertension 08/28/11 IC (interstitial cystitis) Impaired fasting glucose 04/02/2010 Lumbar disc disease with radiculopathy 11/15/2010 Metabolic syndrome X Morbid obesity with BMI of 40.0-44.9, adult (HCC) 08/29/2013 Renal cyst, left 07/03/2016 18 mm, 06/18/16 Sciatica SI (sacroiliac) joint dysfunction 06/04/2011 Thoracolumbar back pain 07/20/2013 Unspecified hypothyroidism Urinary calculus, unspecified Renal stones PAST SURGICAL HISTORY Procedure Laterality Date CHOLECYSTECTOMY 1991 Cholecystectomy CYSTOSCOPY,DIL BLADDER,LOCAL ANESTH 01/18/14 EGD TRANSORAL BIOPSY SINGLE/MULTIPLE 04/09/2007 gastritis, gastric polyps KIDNEY SURGERY HX 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 Valadez PAST SURGICAL HISTORY OF WISDOM TEETH EXTRACTIONS PAST SURGICAL HISTORY OF 05/2012 bladder hydrodistension X 2 PAST SURGICAL HISTORY OF 2014 pain injection lumbar- multiple PAST SURGICAL HISTORY OF Cyst removed from head FAMILY HISTORY Problem Relation Age of Onset No Known Problems Mother Diabetes Father Hypertension Father No Known Problems Brother No Known Problems Brother Cancer Maternal Grandmother Lymphoma Heart Maternal Grandfather hypertension Social History Tobacco Use Smoking status: Never Smokeless tobacco: Never Vaping Use Vaping status: Never Used Substance Use Topics Alcohol use: Yes Comment: rarely Drug use: No ALLERGIES: ALLERGIES Allergen Reactions Celebrex [Celecoxib] upsets stomach after prolonged use ie. 6 weeks Erythromycin GI Upset Lisinopril Unknown Cough, hypotension Metformin GI Upset Mobic [Meloxicam] Vomiting Prochlorperazine Mental Status Change Agitation, felt ill Toradol [Ketorolac] Vomiting Vesicare [Solifenac* Rash CURRENT OUTPATIENT MEDICATIONS: EPINEPHrine (EPIPEN) 0.3 mg/0.3 mL auto-injector Inject 0.3 mL intramuscularly as needed. cetirizine (ZYRTEC) 10 mg tablet Take 1 tablet by mouth two times a day. ondansetron (ZOFRAN) 8 mg tablet Take 1 tablet by mouth every 8 hours as needed. omeprazole (PRILOSEC) 40 mg capsule Take 1 capsule by mouth once daily. levothyroxine (SYNTHROID) 175 mcg tablet Take 1 tablet by mouth once daily. Take on empty stomach. For Thyroid. busPIRone (BUSPAR) 15 mg tablet Take 1 tablet by mouth three times a day. sucralfate (CARAFATE) 1 gram tablet Take 1 tablet by mouth four times daily. Before meals and at bedtime buPROPion XL (WELLBUTRIN XL) 300 mg 24 hr tablet Take 1 tablet by mouth once daily. methenam/sod phos/mblue/hyoscy (UROGESIC-BLUE ORAL) Take 1 capsule by mouth once daily. mirabegron (MYRBETRIQ) 50 mg Tb24 Take 1 tablet by mouth once daily. SACCHAROMYCES BOULARDII (PROBIOTIC, S.BOULARDII, ORAL) Take 1 tablet by mouth once daily. REVIEW OF SYSTEMS: GENERAL: No fever, night sweats, weight loss or malaise. All other reviewed and negative other than HPI. P (more content not included)... [facility] 08-31-2024 History of Present illness Narrative (Elements copied from my note dated August 22, 2024, have been reviewed and updated where appropriate, and all reflect current assessment and medical decision making from today's encounter, August 31, 2024) HISTORY OF PRESENT ILLNESS: Payton Mcqueen is a 59 year old female dx with ET in 2019, was on Hydrea but had nausea and vomiting. Since developed iron deficiency, Dr Pineda attributed to cystitis. Here for follow up was seeing heme at [facility] last few times. Looks like dx morphed from ET to PCV in notes. She has never had erythrocytosis. Dr Caputo' notes reviewed also Here for follow up, having issues with recurring rash, itchy, face hands break out, takes antihistamine which helps. Also kenalog shots resolves. Saw dermatology and allergy, tryptase level was 24, then 28. KIT mutation negative. Here for follow up, feeling very anxious about testing, also feels she wouldn't take imatinib even if diease is present. Long chat about alternative options. Her skin seems better, on zyrtec CLINICAL IMPRESSION: ET, JAK2 positive Elevated tryptase level, ?mastocytosis She is not keen on pursuing a work up at this time RECOMMENDATION/PLAN: 1. In lieu of scans and marrow biopsy will watch liver enzymes every 3 months, serial spleen US, update tryptase level prior to next visit as well. We will re visit idea of marrow biopsy if thre is further indication for such. Written and verbal health teaching given to patient, patient verbalizes understanding and agrees with treatment plan. PAST MEDICAL HISTORY Diagnosis Date Acute gastritis without mention of hemorrhage Anxiety Benign neoplasm of stomach Cervical disc disorder with radiculopathy 02/18/2010 Cyst of ovary 01/01/2015 [facility] - see scanned documents Depressive disorder, not elsewhere classified Essential thrombocythemia (HCC) 06/02/2016 GERD (gastroesophageal reflux disease) Hypertension 08/28/11 IC (interstitial cystitis) Impaired fasting glucose 04/02/2010 Lumbar disc disease with radiculopathy 11/15/2010 Metabolic syndrome X Morbid obesity with BMI of 40.0-44.9, adult (HCC) 08/29/2013 Renal cyst, left 07/03/2016 18 mm, 06/18/16 Sciatica SI (sacroiliac) joint dysfunction 06/04/2011 Thoracolumbar back pain 07/20/2013 Unspecified hypothyroidism Urinary calculus, unspecified Renal stones PAST SURGICAL HISTORY Procedure Laterality Date CHOLECYSTECTOMY 1991 Cholecystectomy CYSTOSCOPY,DIL BLADDER,LOCAL ANESTH 01/18/14 EGD TRANSORAL BIOPSY SINGLE/MULTIPLE 04/09/2007 gastritis, gastric polyps KIDNEY SURGERY HX 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 Valadez PAST SURGICAL HISTORY OF WISDOM TEETH EXTRACTIONS PAST SURGICAL HISTORY OF 05/2012 bladder hydrodistension X 2 PAST SURGICAL HISTORY OF 2014 pain injection lumbar- multiple PAST SURGICAL HISTORY OF Cyst removed from head FAMILY HISTORY Problem Relation Age of Onset No Known Problems Mother Diabetes Father Hypertension Father No Known Problems Brother No Known Problems Brother Cancer Maternal Grandmother Lymphoma Heart Maternal Grandfather hypertension Social History Tobacco Use Smoking status: Never Smokeless tobacco: Never Vaping Use Vaping status: Never Used Substance Use Topics Alcohol use: Yes Comment: rarely Drug use: No ALLERGIES: ALLERGIES Allergen Reactions Celebrex [Celecoxib] upsets stomach after prolonged use ie. 6 weeks Erythromycin GI Upset Lisinopril Unknown Cough, hypotension Metformin GI Upset Mobic [Meloxicam] Vomiting Prochlorperazine Mental Status Change Agitation, felt ill Toradol [Ketorolac] Vomiting Vesicare [Solifenac* Rash CURRENT OUTPATIENT MEDICATIONS: EPINEPHrine (EPIPEN) 0.3 mg/0.3 mL auto-injector Inject 0.3 mL intramuscularly as needed. cetirizine (ZYRTEC) 10 mg tablet Take 1 tablet by mouth two times a day. ondansetron (ZOFRAN) 8 mg tablet Take 1 tablet by mouth every 8 hours as needed. omeprazole (PRILOSEC) 40 mg capsule Take 1 capsule by mouth once daily. levothyroxine (SYNTHROID) 175 mcg tablet Take 1 tablet by mouth once daily. Take on empty stomach. For Thyroid. busPIRone (BUSPAR) 15 mg tablet Take 1 tablet by mouth three times a day. sucralfate (CARAFATE) 1 gram tablet Take 1 tablet by mouth four times daily. Before meals and at bedtime buPROPion XL (WELLBUTRIN XL) 300 mg 24 hr tablet Take 1 tablet by mouth once daily. methenam/sod phos/mblue/hyoscy (UROGESIC-BLUE ORAL) Take 1 capsule by mouth once daily. mirabegron (MYRBETRIQ) 50 mg Tb24 Take 1 tablet by mouth once daily. SACCHAROMYCES BOULARDII (PROBIOTIC, S.BOULARDII, ORAL) Take 1 tablet by mouth once daily. REVIEW OF SYSTEMS: GENERAL: No fever, night sweats, weight loss or malaise. All other reviewed and negative other than HPI. PHYSICAL EXAMINATION: VITAL SIGNS: BP 144/79 Pulse 77 Temp (Src) 97.1 (Temporal) Wt 219 lb 8 oz (99.6kg) SpO2 97% LMP 05/09/2018 GENERAL APPEARANCE: Well appearing, in no acute distress, alert and oriented x3, I spent a total of 30 minutes on the date of the service which included preparing to see the patient, [id number] patient care, completing clinical documentation, obtaining and/or reviewing separately obtained history, counseling and educating the patient/family/caregiver, ordering medications, tests, or procedures, independently interpreting results (not separately reported), and communicating results to the patient/family/caregiver. Electronically Signed: Gadiel Davis MD August 31, 2024 documented in this encounter [facility] 08-23-2024 Telephone encounter Note Per Dr. Davis, he would prefer she discuss with her PCP. Anjali Nowak RN Call to patient, aware of Rx for Ativan prior to procedure, dosing reviewed. Also, aware of above. Questions answered and she will reach out to her PCP. Anjali Nowak RN [facility] Work Phone: 08-23-[address] Davis, he would prefer she discuss with her PCP. Anjali Nowak RN Call to patient, aware of Rx for Ativan prior to procedure, dosing reviewed. Also, aware of above. Questions answered and she will reach out to her PCP. Anjali Nowak RN Placed on his deck to address in the am. Anjali Nowak RN Spoke with patient to schedule OV after her 4/7 BMBX. Patient advised she now is feeling very anxious about everything and is requesting something to help calm her Please advise Gisel Rubio CT scans when feasible-DONE Bone marrow biopsy under sedation [employer] CHAT STARTED FOR SCHEDULING See back 1 week after marrow biopsy documented in this encounter [facility] 08-22-2024 Telephone encounter Note Placed on his deck to address in the am. Anjali Nowak RN [facility] 08-22-2024 Telephone encounter Note Spoke with patient to schedule OV after her 47 BMBX. Patient advised she now is feeling very anxious about everything and is requesting something to help calm her Please advise Gisel Rubio [facility] 08-22-[address] scans when feasible-DONE Bone marrow biopsy under sedation [employer] CHAT STARTED FOR SCHEDULING See back 1 week after marrow biopsy [facility] 08-22-2024 Note HNO ID: [id number] Author: GADIEL DAVIS MD Service: ? Author Type: Physician Type: Progress Notes Filed: 08/22/2024 11:50 Note Text: (Elements copied from my note dated August 20, 2023, have been reviewed and updated where appropriate, and all reflect current assessment and medical decision making from today's encounter, August 22, 2024) HISTORY OF PRESENT ILLNESS: Payton Mcqueen is a 59 year old female dx with ET in 2019, was on Hydrea but had nausea and vomiting. Since developed iron deficiency, Dr Pineda attributed to cystitis. Here for follow up was seeing heme at [facility] last few times. Looks like dx morphed from ET to PCV in notes. She has never had erythrocytosis. Dr Caputo' notes reviewed also Here for follow up, having issues with recurring rash, itchy, face hands break out, takes antihistamine which helps. Also kenalog shots resolves. Saw dermatology and allergy, tryptase level was 24, then 28. KIT mutation negative. CLINICAL IMPRESSION: ET, JAK2 positive Not clear how much her iron deficiency is contributing to her thrombocytosis. At time of diagnosis, her H/H were normal with normal MCV RECOMMENDATION/PLAN: 1. CT scans, bone marrow biopsy 2, see back after testing, possible imatinib given KIT mutation negativity (assuming also marrow negative for KIT mutation) Written and verbal health teaching given to patient, patient verbalizes understanding and agrees with treatment plan. PAST MEDICAL HISTORY Diagnosis Date Acute gastritis without mention of hemorrhage Anxiety Benign neoplasm of stomach Cervical disc disorder with radiculopathy 02/18/2010 Cyst of ovary 01/01/2015 [facility] - see scanned documents Depressive disorder, not elsewhere classified Essential thrombocythemia (HCC) 06/02/2016 GERD (gastroesophageal reflux disease) Hypertension 08/28/11 IC (interstitial cystitis) Impaired fasting glucose 04/02/2010 Lumbar disc disease with radiculopathy 11/15/2010 Metabolic syndrome X Morbid obesity with BMI of 40.0-44.9, adult (HCC) 08/29/2013 Renal cyst, left 07/03/2016 18 mm, 06/18/16 Sciatica SI (sacroiliac) joint dysfunction 06/04/2011 Thoracolumbar back pain 07/20/2013 Unspecified hypothyroidism Urinary calculus, unspecified Renal stones PAST SURGICAL HISTORY Procedure Laterality Date CHOLECYSTECTOMY 1991 Cholecystectomy CYSTOSCOPY,DIL BLADDER,LOCAL ANESTH 01/18/14 EGD TRANSORAL BIOPSY SINGLE/MULTIPLE 04/09/2007 gastritis, gastric polyps KIDNEY SURGERY HX 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 Valadez PAST SURGICAL HISTORY OF WISDOM TEETH EXTRACTIONS PAST SURGICAL HISTORY OF 05/2012 bladder hydrodistension X 2 PAST SURGICAL HISTORY OF 2014 pain injection lumbar- multiple PAST SURGICAL HISTORY OF Cyst removed from head FAMILY HISTORY Problem Relation Age of Onset No Known Problems Mother Diabetes Father Hypertension Father No Known Problems Brother No Known Problems Brother Cancer Maternal Grandmother Lymphoma Heart Maternal Grandfather hypertension Social History Tobacco Use Smoking status: Never Smokeless tobacco: Never Vaping Use Vaping status: Never Used Substance Use Topics Alcohol use: Yes Comment: rarely Drug use: No ALLERGIES: ALLERGIES Allergen Reactions Celebrex [Celecoxib] upsets stomach after prolonged use ie. 6 weeks Erythromycin GI Upset Lisinopril Unknown Cough, hypotension Metformin GI Upset Mobic [Meloxicam] Vomiting Prochlorperazine Mental Status Change Agitation, felt ill Toradol [Ketorolac] Vomiting Vesicare [Solifenac* Rash CURRENT OUTPATIENT MEDICATIONS: cetirizine (ZYRTEC) 10 mg tablet Take 1 tablet by mouth two times a day. ondansetron (ZOFRAN) 8 mg tablet Take 1 tablet by mouth every 8 hours as needed. omeprazole (PRILOSEC) 40 mg capsule Take 1 capsule by mouth once daily. levothyroxine (SYNTHROID) 175 mcg tablet Take 1 tablet by mouth once daily. Take on empty stomach. For Thyroid. busPIRone (BUSPAR) 15 mg tablet Take 1 tablet by mouth three times a day. sucralfate (CARAFATE) 1 gram tablet Take 1 tablet by mouth four times daily. Before meals and at bedtime buPROPion XL (WELLBUTRIN XL) 300 mg 24 hr tablet Take 1 tablet by mouth once daily. methenam/sod phos/mblue/hyoscy (UROGESIC-BLUE ORAL) Take 1 capsule by mouth once daily. mirabegron (MYRBETRIQ) 50 mg Tb24 Take 1 tablet by mouth once daily. SACCHAROMYCES BOULARDII (PROBIOTIC, S.BOULARDII, ORAL) Take 1 tablet by mouth once daily. REVIEW OF SYSTEMS: GENERAL: No fever, night sweats, weight loss or malaise. All other reviewed and negative other than HPI. PHYSICAL EXAMINATION: VITAL SIGNS: BP 146/81 Pulse 76 Temp (Src) 96.6 (Temporal) Ht 5' 4.075 (1.63m) Wt 220 lb 8 oz (100.0kg) SpO2 97% LMP 05/09/2018 BMI 37.74 kg/(m2). GENERAL APPEARANCE: Well appearing, in no acute distress, alert and oriented x3, I spent a total of 20 minutes on the date (more content not included)... [facility] 08-22-2024 History of Present illness Narrative (Elements copied from my note dated August 20, 2023, have been reviewed and updated where appropriate, and all reflect current assessment and medical decision making from today's encounter, August 22, 2024) HISTORY OF PRESENT ILLNESS: Payton Mcqueen is a 59 year old female dx with ET in 2019, was on Hydrea but had nausea and vomiting. Since developed iron deficiency, Dr Pineda attributed to cystitis. Here for follow up was seeing heme at [facility] last few times. Looks like dx morphed from ET to PCV in notes. She has never had erythrocytosis. Dr Caputo' notes reviewed also Here for follow up, having issues with recurring rash, itchy, face hands break out, takes antihistamine which helps. Also kenalog shots resolves. Saw dermatology and allergy, tryptase level was 24, then 28. KIT mutation negative. CLINICAL IMPRESSION: ET, JAK2 positive Not clear how much her iron deficiency is contributing to her thrombocytosis. At time of diagnosis, her H/H were normal with normal MCV RECOMMENDATION/PLAN: 1. CT scans, bone marrow biopsy 2, see back after testing, possible imatinib given KIT mutation negativity (assuming also marrow negative for KIT mutation) Written and verbal health teaching given to patient, patient verbalizes understanding and agrees with treatment plan. PAST MEDICAL HISTORY Diagnosis Date Acute gastritis without mention of hemorrhage Anxiety Benign neoplasm of stomach Cervical disc disorder with radiculopathy 02/18/2010 Cyst of ovary 01/01/2015 [facility] - see scanned documents Depressive disorder, not elsewhere classified Essential thrombocythemia (HCC) 06/02/2016 GERD (gastroesophageal reflux disease) Hypertension 08/28/11 IC (interstitial cystitis) Impaired fasting glucose 04/02/2010 Lumbar disc disease with radiculopathy 11/15/2010 Metabolic syndrome X Morbid obesity with BMI of 40.0-44.9, adult (HCC) 08/29/2013 Renal cyst, left 07/03/2016 18 mm, 06/18/16 Sciatica SI (sacroiliac) joint dysfunction 06/04/2011 Thoracolumbar back pain 07/20/2013 Unspecified hypothyroidism Urinary calculus, unspecified Renal stones PAST SURGICAL HISTORY Procedure Laterality Date CHOLECYSTECTOMY 1991 Cholecystectomy CYSTOSCOPY,DIL BLADDER,LOCAL ANESTH 01/18/14 EGD TRANSORAL BIOPSY SINGLE/MULTIPLE 04/09/2007 gastritis, gastric polyps KIDNEY SURGERY HX 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 Valadez PAST SURGICAL HISTORY OF WISDOM TEETH EXTRACTIONS PAST SURGICAL HISTORY OF 05/2012 bladder hydrodistension X 2 PAST SURGICAL HISTORY OF 2014 pain injection lumbar- multiple PAST SURGICAL HISTORY OF Cyst removed from head FAMILY HISTORY Problem Relation Age of Onset No Known Problems Mother Diabetes Father Hypertension Father No Known Problems Brother No Known Problems Brother Cancer Maternal Grandmother Lymphoma Heart Maternal Grandfather hypertension Social History Tobacco Use Smoking status: Never Smokeless tobacco: Never Vaping Use Vaping status: Never Used Substance Use Topics Alcohol use: Yes Comment: rarely Drug use: No ALLERGIES: ALLERGIES Allergen Reactions Celebrex [Celecoxib] upsets stomach after prolonged use ie. 6 weeks Erythromycin GI Upset Lisinopril Unknown Cough, hypotension Metformin GI Upset Mobic [Meloxicam] Vomiting Prochlorperazine Mental Status Change Agitation, felt ill Toradol [Ketorolac] Vomiting Vesicare [Solifenac* Rash CURRENT OUTPATIENT MEDICATIONS: cetirizine (ZYRTEC) 10 mg tablet Take 1 tablet by mouth two times a day. ondansetron (ZOFRAN) 8 mg tablet Take 1 tablet by mouth every 8 hours as needed. omeprazole (PRILOSEC) 40 mg capsule Take 1 capsule by mouth once daily. levothyroxine (SYNTHROID) 175 mcg tablet Take 1 tablet by mouth once daily. Take on empty stomach. For Thyroid. busPIRone (BUSPAR) 15 mg tablet Take 1 tablet by mouth three times a day. sucralfate (CARAFATE) 1 gram tablet Take 1 tablet by mouth four times daily. Before meals and at bedtime buPROPion XL (WELLBUTRIN XL) 300 mg 24 hr tablet Take 1 tablet by mouth once daily. methenam/sod phos/mblue/hyoscy (UROGESIC-BLUE ORAL) Take 1 capsule by mouth once daily. mirabegron (MYRBETRIQ) 50 mg Tb24 Take 1 tablet by mouth once daily. SACCHAROMYCES BOULARDII (PROBIOTIC, S.BOULARDII, ORAL) Take 1 tablet by mouth once daily. REVIEW OF SYSTEMS: GENERAL: No fever, night sweats, weight loss or malaise. All other reviewed and negative other than HPI. PHYSICAL EXAMINATION: VITAL SIGNS: BP 146/81 Pulse 76 Temp (Src) 96.6 (Temporal) Ht 5' 4.075 (1.63m) Wt 220 lb 8 oz (100.0kg) SpO2 97% LMP 05/09/2018 BMI 37.74 kg/(m^2). GENERAL APPEARANCE: Well appearing, in no acute distress, alert and oriented x3, I spent a total of 20 minutes on the date of the service which included preparing to see the patient, [id number] patient care, completing clinical documentation, obtaining and/or reviewing separately obtained history, counseling and educating the patient/family/caregiver, ordering medications, tests, or procedures, independently interpreting results (not separately reported), and communicating results to the patient/family/caregiver. Electronically Signed: Gadiel Davis MD August 22, 2024 documented in this encounter [facility] 08-15-2024 Telephone encounter Note Copy made for pt's chart. Pt notified via [employer] that this will be available for oyster picker at Medical Records after 12:00 pm today. Mavis Shen MA [facility] 08-15-2024 Miscellaneous Notes Copy made for pt's chart. Pt notified via [employer] that this will be available for oyster picker at Medical Records after 12:00 pm today. Mavis Shen MA Form done Sue Weber MD Form printed and routed to PCP to review. Pt asking for form to be completed by 08/16/24, so she can oyster picker. Mavis Shen MA documented in this encounter [facility] 08-12-2024 Telephone encounter Note Form done Sue Weber MD [facility] 08-11-2024 Telephone encounter Note Prescription Refill Information The patient has been identified by name and date of : Yes Caregiver verified no other encounters exist for this prescription request: Yes Caregiver confirmed with patient/requestor that no other refills are due, in the near future, with this provider at this time: Yes The last office visit in the department: 08/02/24 Does the patient have a future office visit with this provider/department: Yes 12/05/24 Requested Prescriptions Pending Prescriptions Disp Refills fluconazole (DIFLUCAN) 150 mg tablet 2 tablet 0 Sig: Take 1 tablet by mouth one time only for 1 dose. Repeat in 3 days as needed. Margaux Bueno LPN August 11, 2024 9:14 AM [facility] 08-11-2024 Miscellaneous Notes Prescription Refill Information The patient has been identified by name and date of : Yes Caregiver verified no other encounters exist for this prescription request: Yes Caregiver confirmed with patient/requestor that no other refills are due, in the near future, with this provider at this time: Yes The last office visit in the department: 08/02/24 Does the patient have a future office visit with this provider/department: Yes 12/05/24 Requested Prescriptions Pending Prescriptions Disp Refills fluconazole (DIFLUCAN) 150 mg tablet 2 tablet 0 Sig: Take 1 tablet by mouth one time only for 1 dose. Repeat in 3 days as needed. Margaux Bueno LPN August 11, 2024 9:14 AM documented in this encounter [facility] 08-11-2024 Telephone encounter Note Form printed and routed to PCP to review. Pt asking for form to be completed by 08/16/24, so she can oyster picker. Mavis Shen MA [facility] 08-05-2024 Telephone encounter Note Spoke with patient and scheduled with Dr Davis 1st available 08/22 Gisel Rubio [facility] 08-05-2024 Miscellaneous Notes Spoke with patient and scheduled with Dr Davis 1st available 08/22 Gisel Rubio Received referral from allergy and immunology for suspicion of mastocytosis, which may need a BMBX to confirm. Please schedule appt. With Dr. Davis (new problem) 60 mins, records have been scanned in system also havew faxed records. Shari Duron LPN documented in this encounter [facility] 08-05-2024 Telephone encounter Note Received referral from allergy and immunology for suspicion of mastocytosis, which may need a BMBX to confirm. Please schedule appt. With Dr. Davis (new problem) 60 mins, records have been scanned in system also havew faxed records. Shari Duron LPN [facility] 08-02-2024 Telephone encounter Note Done at 08/02 office visit Sue Weber MD [facility] 08-02-2024 Miscellaneous Notes Done at 08/02 office visit Sue Weber MD Please see pt message and advise. Mavis Shen MA documented in this encounter [facility] 08-02-2024 History of Present illness Narrative Chief Complaint Patient presents with: ER F/U: Rash HPI Payton Mcqueen is a 59 year old female who presents here today for ER Follow Up.. Pt presented to [facility] ER on 07/30/24 with rash. She is working with [employer], Derm sent her to Allergy. ER doc told her to follow up with [employer] but also to follow up with PCP to help manage her rash. She is taking Zyrtec daily which usually keeps sx controlled. She stated when the rash and sx started she took the Hydroxyzine and her zyrtec but didn't really seem to be helping. She states the rash starts out red and feels like sunburn, on her face and scalp, face was swollen and scalp was bright red, itching. She has been dealing with this x several months. She is having a lot of testing done for the rash. Is waiting on mutation test results. She did get a kenalog injection while in the ER which takes a few days to help but it does wipe her out for a few days, makes her tired. The swelling is down, the itching and redness are improving. She states the rash has a pattern, flares up every 3-5 months. Sinus infection improved, almost done with antibiotic. She states she is stressed and frustrated with the rash and she is having issues with work because she has missed too much. She states she is not going to let this drive her crazy, states she has been working at the [employer] x 12 years. Wants a letter stating she has these chronic conditions which is why she has been missing so much work. Below copied from [employer]: Chief Complaint: Rash Detail of Chief Complaint: Rash and itching Informant: patient Narrative Narrative: Patient presents the emergency department with concern for an allergic reaction that she has had multiple times in the past. Patient states that she started having these episodes after having COVID-19. Patient states that typically she gets Kenalog and they resolved for 3 to 6 months. She is been seen by dermatology and has been diagnosed with perivascular dermatitis. Also currently seeing an grinder chipper and had some testing earlier in the week. 6 days ago she started with some itching. She has been using hydroxyzine for the itching. Lastly had a hard time sleeping because of all the itching to her face and her head and her body. This is the same way she typically presents. She has not had any new soaps or detergents or other allergens. She denies any new medications other than she recently started on Augmentin 2 days ago however her symptomatology started 6 days ago. She is taken Augmentin for some sinus disease. MDM Narrative Medical decision making narrative: Patient with history of chronic dermatitis that may be allergic. Typically responds to Kenalog. Currently being worked up by grinder chipper and has been to dermatology. Clinically looks well. Will treat with Kenalog 40 mg IM. Advised to follow-up with her grinder chipper. Past medical history, appointments, medications, allergies reviewed. Previous Medical History PAST MEDICAL HISTORY Diagnosis Date Acute gastritis without mention of hemorrhage Anxiety Benign neoplasm of stomach Cervical disc disorder with radiculopathy 02/18/2010 Cyst of ovary 01/01/2015 [facility] - see scanned documents Depressive disorder, not elsewhere classified Essential thrombocythemia (HCC) 06/02/2016 GERD (gastroesophageal reflux disease) Hypertension 08/28/11 IC (interstitial cystitis) Impaired fasting glucose 04/02/2010 Lumbar disc disease with radiculopathy 11/15/2010 Metabolic syndrome X Morbid obesity with BMI of 40.0-44.9, adult (HCC) 08/29/2013 Renal cyst, left 07/03/2016 18 mm, 06/18/16 Sciatica SI (sacroiliac) joint dysfunction 06/04/2011 Thoracolumbar back pain 07/20/2013 Unspecified hypothyroidism Urinary calculus, unspecified Renal stones Previous Surgical History PAST SURGICAL HISTORY Procedure Laterality Date CHOLECYSTECTOMY 1991 Cholecystectomy CYSTOSCOPY,DIL BLADDER,LOCAL ANESTH 01/18/14 EGD TRANSORAL BIOPSY SINGLE/MULTIPLE 04/09/2007 gastritis, gastric polyps KIDNEY SURGERY HX 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 6 weeks Erythromycin GI Upset Lisinopril Unknown Cough, hypotension Metformin GI Upset Mobic [Meloxicam] Vomiting Prochlorperazine Mental Status Change Agitation, felt ill Toradol [Ketorolac] Vomiting Vesicare [Solifenac* Rash Current Medications Current Outpatient Medications on File Prior to Visit Medication Sig amoxicillin-clavulanate potassium (AUGMENTIN) 875-125 mg per tablet Take 1 tablet by mouth every 12 hours for 7 days. ondansetron (ZOFRAN) 8 mg tablet Take 1 tablet by mouth every 8 hours as needed. omeprazole (PRILOSEC) 40 mg capsule Take 1 capsule by mouth once daily. levothyroxine (SYNTHROID) 175 mcg tablet Take 1 tablet by mouth once daily. Take on empty stomach. For Thyroid. busPIRone (BUSPAR) 15 mg tablet Take 1 tablet by mouth three times a day. sucralfate (CARAFATE) 1 gram tablet Take 1 tablet by mouth four times daily. Before meals and at bedtime buPROPion XL (WELLBUTRIN XL) 300 mg 24 hr tablet Take 1 tablet by mouth once daily. methenam/sod phos/mblue/hyoscy (UROGESIC-BLUE ORAL) Take 1 capsule by mouth once daily. mirabegron (MYRBETRIQ) 50 mg Tb24 Take 1 tablet by mouth once daily. SACCHAROMYCES BOULARDII (PROBIOTIC, S.BOULARDII, ORAL) Take by mouth once daily. No current facility-administered medications on file prior to visit. Social History Social History Tobacco Use Smoking status: Never Smokeless tobacco: Never Vaping Use Vaping status: Never Used Substance Use Topics Alcohol use: Yes Comment: rarely Drug use: No EXAM: BP 140/80 Pulse 88 Resp 18 Wt 101 kg (222 lb 10.6 oz) LMP 05/09/2018 (Approximate) SpO2 98% BMI 39.44 kg/m General Appearance: Well appearing, alert, in no acute distress, well-hydrated, well nourished. and Overweight. Skin: no rash noted at this time. Lungs: Lungs clear to auscultation. No wheezing, rhonchi, rales.. Heart: RRR without murmur, gallop, or rubs. No ectopy. Health Maintenance List Hepatitis B Vaccine(1 of 3 - 19+ 3-dose series) Never done Colorectal Cancer Screening Never done Shingrix Vaccine(1 of 2) Never done Pneumococcal Vaccine: 50+(1 of 1 - PCV) Never done BP Controlled (<130/80) due on 10/10/2018 DTaP,Tdap,Td Vaccine(6 - Td or Tdap) due on 12/20/2018 Cervical Cancer Screening due on 04/11/2020 Mammogram Screening due on 01/01/2024 Hepatitis C Screening due on 10/15/2024 HIV Screening due on 10/15/2024 Influenza Vaccine(1) due on 11/21/2024 Covid-19 Vaccine(2023- season) due on 02/22/2025 Depression Screening due on 02/22/2025 Annual PCP Team Chronic Disease Visit due on 07/28/2025 Diabetes Screening due on 02/19/2027 Lipid Screening due on 12/25/2027 Data reviewed [facility] ER report from 07/30/24 ASSESSMENT/PLAN: 1. Rash - ICD9: 782.1, ICD10: R21 Improving with Kenalog injection she had at ER Continue with the [facility] daily Follow up with [employer] for further evaluation and treatment options Follow up as needed. Work note given that she missed work yesterday. I agree with the Chief Complaint, ROS, and Past Histories independently gathered by the clinical data support analyst and the remaining scribed note accurately describes my personal service to the patient. Medical Decision Making: Problems: Moderate: 1+ chronic illnesses with change Risk: Moderate: Drug management Medical Decision Making Level: 4 - Moderate Sue Weber MD The documentation for this note was completed by Andreina Caicedo MA acting as scribe for Sue Weber MD. August 02, 2024 9:31 AM. Andreina Caicedo MA documented in this encounter [facility] 08-02-2024 Note HNO ID: [id number] Author: SUE WEBER MD Service: ? Author Type: Physician Type: Progress Notes Filed: 08/02/2024 11:04 Note Text: Chief Complaint Patient presents with: ER F/U: Rash HPI Payton Mcqueen is a 59 year old female who presents here today for ER Follow Up.. Pt presented to [facility] ER on 07/30/24 with rash. She is working with [employer], Derm sent her to Allergy. ER doc told her to follow up with [employer] but also to follow up with PCP to help manage her rash. She is taking Zyrtec daily which usually keeps sx controlled. She stated when the rash and sx started she took the Hydroxyzine and her zyrtec but didn't really seem to be helping. She states the rash starts out red and feels like sunburn, on her face and scalp, face was swollen and scalp was bright red, itching. She has been dealing with this x several months. She is having a lot of testing done for the rash. Is waiting on mutation test results. She did get a kenalog injection while in the ER which takes a few days to help but it does wipe her out for a few days, makes her tired. The swelling is down, the itching and redness are improving. She states the rash has a pattern, flares up every 3-5 months. Sinus infection improved, almost done with antibiotic. She states she is stressed and frustrated with the rash and she is having issues with work because she has missed too much. She states she is not going to let this drive her crazy, states she has been working at the [employer] x 12 years. Wants a letter stating she has these chronic conditions which is why she has been missing so much work. Below copied from [employer]: Chief Complaint: Rash Detail of Chief Complaint: Rash and itching Informant: patient Narrative Narrative: Patient presents the emergency department with concern for an allergic reaction that she has had multiple times in the past. Patient states that she started having these episodes after having COVID-19. Patient states that typically she gets Kenalog and they resolved for 3 to 6 months. She is been seen by dermatology and has been diagnosed with perivascular dermatitis. Also currently seeing an grinder chipper and had some testing earlier in the week. 6 days ago she started with some itching. She has been using hydroxyzine for the itching. Lastly had a hard time sleeping because of all the itching to her face and her head and her body. This is the same way she typically presents. She has not had any new soaps or detergents or other allergens. She denies any new medications other than she recently started on Augmentin 2 days ago however her symptomatology started 6 days ago. She is taken Augmentin for some sinus disease. MDM Narrative Medical decision making narrative: Patient with history of chronic dermatitis that may be allergic. Typically responds to Kenalog. Currently being worked up by grinder chipper and has been to dermatology. Clinically looks well. Will treat with Kenalog 40 mg IM. Advised to follow-up with her grinder chipper. Past medical history, appointments, medications, allergies reviewed. Previous Medical History PAST MEDICAL HISTORY Diagnosis Date Acute gastritis without mention of hemorrhage Anxiety Benign neoplasm of stomach Cervical disc disorder with radiculopathy 02/18/2010 Cyst of ovary 01/01/2015 [facility] - see scanned documents Depressive disorder, not elsewhere classified Essential thrombocythemia (HCC) 06/02/2016 GERD (gastroesophageal reflux disease) Hypertension 08/28/11 IC (interstitial cystitis) Impaired fasting glucose 04/02/2010 Lumbar disc disease with radiculopathy 11/15/2010 Metabolic syndrome X Morbid obesity with BMI of 40.0-44.9, adult (HCC) 08/29/2013 Renal cyst, left 07/03/2016 18 mm, 06/18/16 Sciatica SI (sacroiliac) joint dysfunction 06/04/2011 Thoracolumbar back pain 07/20/2013 Unspecified hypothyroidism Urinary calculus, unspecified Renal stones Previous Surgical History PAST SURGICAL HISTORY Procedure Laterality Date CHOLECYSTECTOMY 1991 Cholecystectomy CYSTOSCOPY,DIL BLADDER,LOCAL ANESTH 01/18/14 EGD TRANSORAL BIOPSY SINGLE/MULTIPLE 04/09/2007 gastritis, gastric polyps KIDNEY SURGERY HX 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 6 weeks Erythromycin GI Upset Lisinopril Unknown Cough, hypotension Metformin GI Upset Mobic [Meloxicam] (more content not included)... [facility] 08-01-2024 Telephone encounter Note Please see pt message and advise. Mavis Shen MA [facility] 07-28-2024 History of Present illness Narrative Chief Complaint Patient presents with: Illness HPI Payton Mcqueen is a 59 year old female who presents here today for illness. Pt c/o low grade fever and flu like sx. Also having hives. She states she was treated with Amoxicillin on Thu which was prescribed by her dentist on Thursday for tooth infection and inflammation. Denied any tooth pain or issues with tooth. She states that she started having low grade fevers over the weekend, chest congestion, coughing, fatigue. Not coughing up any phlegm. She states that the highest her temp as been was 101.6. Diarrhea, body ache, sore throat, chills. She felt last week she was having a good week and was feeling good until Thursday when she started feeling some chest congestion. Has been taking Probiotics more regularly. No SOB or wheezing, no sinus or ear congestion. No head congestion. Taking Zyrtec for allergies and if the allergies get really bad she takes the Hydroxyzine. States that she does get swelling with the rash in her legs. Rash started on Thursday. Saw Freight Car Cleaner 3 weeks ago who did more blood work. 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 She states that she had been having issues ever since having covid twice in past, denied being sick all the time prior to having covid. 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 She has a lot of stress with work. Has talked to someone about possible disability but she stated she really doesn't want to go that route. Past medical history, appointments, medications, allergies reviewed. Previous Medical History PAST MEDICAL HISTORY Diagnosis Date Acute gastritis without mention of hemorrhage Anxiety Benign neoplasm of stomach Cervical disc disorder with radiculopathy 02/18/2010 Cyst of ovary 01/01/2015 [facility] - see scanned documents Depressive disorder, not elsewhere classified Essential thrombocythemia (HCC) 06/02/2016 GERD (gastroesophageal reflux disease) Hypertension 08/28/11 IC (interstitial cystitis) Impaired fasting glucose 04/02/2010 Lumbar disc disease with radiculopathy 11/15/2010 Metabolic syndrome X Morbid obesity with BMI of 40.0-44.9, adult ([facility]) 08/29/2013 Renal cyst, left 07/03/2016 18 mm, 06/18/16 Sciatica SI (sacroiliac) joint dysfunction 06/04/2011 Thoracolumbar back pain 07/20/2013 Unspecified hypothyroidism Urinary calculus, unspecified Renal stones Previous Surgical History PAST SURGICAL HISTORY Procedure Laterality Date CHOLECYSTECTOMY 1991 Cholecystectomy CYSTOSCOPY,DIL BLADDER,LOCAL ANESTH 01/18/14 EGD TRANSORAL BIOPSY SINGLE/MULTIPLE 04/09/2007 gastritis, gastric polyps KIDNEY SURGERY HX 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 6 weeks Erythromycin GI Upset Lisinopril Unknown Cough, hypotension Metformin GI Upset Mobic [Meloxicam] Vomiting Prochlorperazine Mental Status Change Agitation, felt ill Toradol [Ketorolac] Vomiting Vesicare [Solifenac* Rash Current Medications Current Outpatient Medications on File Prior to Visit Medication Sig ondansetron (ZOFRAN) 8 mg tablet Take 1 tablet by mouth every 8 hours as needed. omeprazole (PRILOSEC) 40 mg capsule Take 1 capsule by mouth once daily. levothyroxine (SYNTHROID) 175 mcg tablet Take 1 tablet by mouth once daily. Take on empty stomach. For Thyroid. busPIRone (BUSPAR) 15 mg tablet Take 1 tablet by mouth three times a day. sucralfate (CARAFATE) 1 gram tablet Take 1 tablet by mouth four times daily. Before meals and at bedtime buPROPion XL (WELLBUTRIN XL) 300 mg 24 hr tablet Take 1 tablet by mouth once daily. methenam/sod phos/mblue/hyoscy (UROGESIC-BLUE ORAL) Take 1 capsule by mouth once daily. mirabegron (MYRBETRIQ) 50 mg Tb24 Take 1 tablet by mouth once daily. SACCHAROMYCES BOULARDII (PROBIOTIC, S.BOULARDII, ORAL) Take by mouth once daily. No current facility-administered medications on file prior to visit. Social History Social History Tobacco Use Smoking status: Never Smokeless tobacco: Never Vaping Use Vaping status: Never Used Substance Use Topics Alcohol use: Yes Comment: rarely Drug use: No EXAM: BP 130/80 Pulse 78 Temp 37.1 C (98.8 F) (Tympanic) Resp 16 Wt 102.5 kg (225 lb 15.5 oz) LMP 05/09/2018 (Approximate) SpO2 94% BMI 40.03 kg/m General Appearance: Well appearing, alert, in no acute distress, well-hydrated, well nourished. and Overweight. Ears: External ears normal, canals clear. Oropharynx: Lips, mucosa, and tongue normal, teeth and gums normal, oropharynx normal. Neck: Supple, no adenopathy; thyroid symmetric, normal size Lungs: Lungs clear to auscultation. No wheezing, rhonchi, rales.. Heart: RRR without murmur, gallop, or rubs. No ectopy. Health Maintenance List Hepatitis B Vaccine(1 of 3 - 19+ 3-dose series) Never done Colorectal Cancer Screening Never done Shingrix Vaccine(1 of 2) Never done Pneumococcal Vaccine: 50+(1 of 1 - PCV) Never done BP Controlled (<130/80) due on 10/10/2018 DTaP,Tdap,Td Vaccine(6 - Td or Tdap) due on 12/20/2018 Cervical Cancer Screening due on 04/11/2020 Mammogram Screening due on 01/01/2024 Hepatitis C Screening due on 10/15/2024 HIV Screening due on 10/15/2024 Influenza Vaccine(1) due on 11/21/2024 Covid-19 Vaccine( season) due on 02/22/2025 Depression Screening due on 02/22/2025 Annual PCP Team Chronic Disease Visit due on 07/04/2025 Diabetes Screening due on 02/19/2027 Lipid Screening due on 12/25/2027 Data reviewed None ASSESSMENT/PLAN: 1. Acute non-recurrent sinusitis, unspecified location - ICD9: 461.9, ICD10: J01.90 (primary diagnosis) - Will begin treatment with Augmentin 875 mg PO BID for 7 days - FLUCONAZOLE 150 MG TABLET - AMOXICILLIN 875 MG-POTASSIUM CLAVULANATE 125 MG TABLET 2. Adjustment disorder with depressed mood - ICD9: 309.0, ICD10: F43.21 Continue current medications. 3. Essential hypertension, benign - ICD9: 401.1, ICD10: I10 - Controlled - Continue current medications - Recommend home blood pressure monitoring, to bring results to next visit - Encouraged sodium restriction, DASH or Mediterranean diet - Recommend regular aerobic exercise 4. Essential thrombocythemia (HCC) - ICD9: 238.71, ICD10: D47.3 Stable Monitor Work note given writing pt off from 07/26/24 - 07/29/24, return to work on 08/01/24. Follow up as needed. I agree with the Chief Complaint, ROS, and Past Histories independently gathered by the clinical data support analyst and the remaining scribed note accurately describes my personal service to the patient. Medical Decision Making: Problems: Moderate: 1+ chronic illnesses with change Risk: Moderate: Drug management Medical Decision Making Level: 4 - Moderate Sue Weber MD The documentation for this note was completed by Andreina Caicedo MA acting as scribe for Sue Weber MD. July 28, 2024 9:15 AM. Andreina Caicedo MA documented in this encounter [facility] 07-28-2024 Note HNO ID: [id number] Author: SUE WEBER MD Service: ? Author Type: Physician Type: Progress Notes Filed: 07/28/2024 11:34 Note Text: Chief Complaint Patient presents with: Illness HPI Payton Mcqueen is a 59 year old female who presents here today for illness. Pt c/o low grade fever and flu like sx. Also having hives. She states she was treated with Amoxicillin on Thu which was prescribed by her dentist on Thursday for tooth infection and inflammation. Denied any tooth pain or issues with tooth. She states that she started having low grade fevers over the weekend, chest congestion, coughing, fatigue. Not coughing up any phlegm. She states that the highest her temp as been was 101.6. Diarrhea, body ache, sore throat, chills. She felt last week she was having a good week and was feeling good until Thursday when she started feeling some chest congestion. Has been taking Probiotics more regularly. No SOB or wheezing, no sinus or ear congestion. No head congestion. Taking Zyrtec for allergies and if the allergies get really bad she takes the Hydroxyzine. States that she does get swelling with the rash in her legs. Rash started on Thursday. Saw Freight Car Cleaner 3 weeks ago who did more blood work. 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 She states that she had been having issues ever since having covid twice in past, denied being sick all the time prior to having covid. 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 She has a lot of stress with work. Has talked to someone about possible disability but she stated she really doesn't want to go that route. Past medical history, appointments, medications, allergies reviewed. Previous Medical History PAST MEDICAL HISTORY Diagnosis Date Acute gastritis without mention of hemorrhage Anxiety Benign neoplasm of stomach Cervical disc disorder with radiculopathy 02/18/2010 Cyst of ovary 01/01/2015 [facility] - see scanned documents Depressive disorder, not elsewhere classified Essential thrombocythemia (HCC) 06/02/2016 GERD (gastroesophageal reflux disease) Hypertension 08/28/11 IC (interstitial cystitis) Impaired fasting glucose 04/02/2010 Lumbar disc disease with radiculopathy 11/15/2010 Metabolic syndrome X Morbid obesity with BMI of 40.0-44.9, adult (HCC) 08/29/2013 Renal cyst, left 07/03/2016 18 mm, 06/18/16 Sciatica SI (sacroiliac) joint dysfunction 06/04/2011 Thoracolumbar back pain 07/20/2013 Unspecified hypothyroidism Urinary calculus, unspecified Renal stones Previous Surgical History PAST SURGICAL HISTORY Procedure Laterality Date CHOLECYSTECTOMY 1991 Cholecystectomy CYSTOSCOPY,DIL BLADDER,LOCAL ANESTH 01/18/14 EGD TRANSORAL BIOPSY SINGLE/MULTIPLE 04/09/2007 gastritis, gastric polyps KIDNEY SURGERY HX 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 6 weeks Erythromycin GI Upset Lisinopril Unknown Cough, hypotension Metformin GI Upset Mobic [Meloxicam] Vomiting Prochlorperazine Mental Status Change Agitation, felt ill Toradol [Ketorolac] Vomiting Vesicare [Solifenac* Rash Current Medications Current Outpatient Medications on File Prior to Visit Medication Sig ondansetron (ZOFRAN) 8 mg tablet Take 1 tablet by mouth every 8 hours as needed. omeprazole (PRILOSEC) 40 mg capsule Take 1 capsule by mouth once daily. levothyroxine (SYNTHROID) 175 mcg tablet Take 1 tablet by mouth once daily. Take on empty stomach. For Thyroid. busPIRone (BUSPAR) 15 mg tablet Take 1 tablet by mouth three times a day. sucralfate (CARAFATE) 1 gram tablet Take 1 tablet by mouth four times daily. Before meals and at bedtime buPROPion XL (WELLBUTRIN XL) 300 mg 24 hr tablet Take 1 tablet by mouth once daily. methenam/sod phos/mblue/hyoscy (UROGESIC-BLUE ORAL) Take 1 capsule by mouth once daily. mirabegron (MYRBETRIQ) 50 mg Tb24 Take 1 tablet by mouth once daily. SACCHAROMYCES BOULARDII (PROBIOTIC, S.BOULARDII, ORAL) Take by mouth once daily. No current facility-administered medications on file prior to visit. Social History Social History Tobacco Use Smoking status: Never Smokeless tobacco: Never Vaping Use Vaping status: Never Used Substance Use Topics Alcohol use: Yes Comment: rarely Drug use: No EXAM: BP 130/80 Puls (more content not included)... [facility] 07-25-2024 Telephone encounter Note Call to patient, she is asking if Dr. Davis would want to see her or go ahead with test the grinder chipper wants her to have. Updated Dr. Davis, he reviewed scanned notes. He advises to go ahead with grinder chipper lab/workup and to see us afterward as appropriate. Anjali Nowak RN Call to patient and aware of above. She will call back after she get the results from testing and what the grinder chipper is advising. She denies further needs/concerns. Anjali Nowak RN [facility] Work Phone: 07-25-2024 Miscellaneous Notes Call to patient, she is asking if Dr. Davis would want to see her or go ahead with test the grinder chipper wants her to have. Updated Dr. Davis, he reviewed scanned notes. He advises to go ahead with grinder chipper lab/workup and to see us afterward as appropriate. Anjali Nowak RN Call to patient and aware of above. She will call back after she get the results from testing and what the grinder chipper is advising. She denies further needs/concerns. Anjali Nowak RN Patient states she was referred from Derm to Allergy. She states she is to have some testing done for Allergy and she is asking to speak/see with Dr. Davis first. Please advise. documented in this encounter [facility] 07-25-2024 Telephone encounter Note Patient states she was referred from Derm to Allergy. She states she is to have some testing done for Allergy and she is asking to speak/see with Dr. Davis first. Please advise. [facility] Work Phone: 07-04-2024 Instructions Mavis Shen MA - 07/04/2024 3:34 PM EST Update office via e[employer]press[employer] if not improving. Prescriptions have been sent to the Pharmacy. documented in this encounter [facility] 07-04-2024 History of Present illness Narrative Chief Complaint Patient presents with: Sore Throat: Cold symptoms HPI Payton Mcqueen is a 59 year old female who presents here today for severe sore throat. Pt here today for an acute visit. Pt c/o of symptoms of sneezing and watery eyes on and Thursday last week, thought this was allergy related. Over the weekend she started experiencing a sore throat that gradually became worse, with a low grade fever. The sore throat is now affecting her voice. States she's not a had a sore throat in quite some time. The throat pain is described as a burning and sore pain. Denies anything in her chest, but mainly up in her sinuses. Ears don't really feel like an issue at this time. Has not really been taking anything for cold symptoms. Has taken Advil for pain relief and using cough drops. Reports she's been doing really good until this. She did not go to work today as she didn't know what to do and unsure what she should do in regards to her cold symptoms. Reports the [facility] has a lot of Norovirus going around along with other illnesses such as strep and Flu. Past medical history, appointments, medications, allergies reviewed. Previous Medical History PAST MEDICAL HISTORY Diagnosis Date Acute gastritis without mention of hemorrhage Anxiety Benign neoplasm of stomach Cervical disc disorder with radiculopathy 02/18/2010 Cyst of ovary 01/01/2015 [facility] - see scanned documents Depressive disorder, not elsewhere classified Essential thrombocythemia (HCC) 06/02/2016 GERD (gastroesophageal reflux disease) Hypertension 08/28/11 IC (interstitial cystitis) Impaired fasting glucose 04/02/2010 Lumbar disc disease with radiculopathy 11/15/2010 Metabolic syndrome X Morbid obesity with BMI of 40.0-44.9, adult ([facility]) 08/29/2013 Renal cyst, left 07/03/2016 18 mm, 06/18/16 Sciatica SI (sacroiliac) joint dysfunction 06/04/2011 Thoracolumbar back pain 07/20/2013 Unspecified hypothyroidism Urinary calculus, unspecified Renal stones Previous Surgical History PAST SURGICAL HISTORY Procedure Laterality Date CHOLECYSTECTOMY 1991 Cholecystectomy CYSTOSCOPY,DIL BLADDER,LOCAL ANESTH 01/18/14 EGD TRANSORAL BIOPSY SINGLE/MULTIPLE 04/09/2007 gastritis, gastric polyps KIDNEY SURGERY HX 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 6 weeks Erythromycin GI Upset Lisinopril Unknown Cough, hypotension Metformin GI Upset Mobic [Meloxicam] Vomiting Prochlorperazine Mental Status Change Agitation, felt ill Toradol [Ketorolac] Vomiting Vesicare [Solifenac* Rash Current Medications Current Outpatient Medications on File Prior to Visit Medication Sig ondansetron (ZOFRAN) 8 mg tablet Take 1 tablet by mouth every 8 hours as needed. omeprazole (PRILOSEC) 40 mg capsule Take 1 capsule by mouth once daily. levothyroxine (SYNTHROID) 175 mcg tablet Take 1 tablet by mouth once daily. Take on empty stomach. For Thyroid. busPIRone (BUSPAR) 15 mg tablet Take 1 tablet by mouth three times a day. sucralfate (CARAFATE) 1 gram tablet Take 1 tablet by mouth four times daily. Before meals and at bedtime buPROPion XL (WELLBUTRIN XL) 300 mg 24 hr tablet Take 1 tablet by mouth once daily. methenam/sod phos/mblue/hyoscy (UROGESIC-BLUE ORAL) Take 1 capsule by mouth once daily. mirabegron (MYRBETRIQ) 50 mg Tb24 Take 1 tablet by mouth once daily. SACCHAROMYCES BOULARDII (PROBIOTIC, S.BOULARDII, ORAL) Take by mouth once daily. No current facility-administered medications on file prior to visit. Social History Social History Tobacco Use Smoking status: Never Smokeless tobacco: Never Vaping Use Vaping status: Never Used Substance Use Topics Alcohol use: Yes Comment: rarely Drug use: No EXAM: BP 148/96 (BP Site: Left Arm, BP Position: Sitting, BP Cuff Size: Regular Adult) Pulse 80 Temp 36.9 C (98.4 F) (Tympanic) Resp 18 Wt 102.7 kg (226 lb 6.6 oz) LMP 05/09/2018 (Approximate) BMI 40.11 kg/m General Appearance: Well appearing, alert, in no acute distress, well-hydrated, well nourished. and Obese. Ears: External ears normal, canals clear. Oropharynx: posterior erythema Neck: Supple, minimal adenopathy noted on exam, with tenderness to palpate; Lungs: Lungs clear to auscultation. No wheezing, rhonchi, rales.. Heart: RRR without murmur, gallop, or rubs. No ectopy. Health Maintenance List Hepatitis B Vaccine(1 of 3 - 19+ 3-dose series) Never done Colorectal Cancer Screening Never done Shingrix Vaccine(1 of 2) Never done Pneumococcal Vaccine: 50+(1 of 1 - PCV) Never done DTaP,Tdap,Td Vaccine(6 - Td or Tdap) due on 12/20/2018 Cervical Cancer Screening due on 04/11/2020 Mammogram Screening due on 01/01/2024 Hepatitis C Screening due on 10/15/2024 HIV Screening due on 10/15/2024 Influenza Vaccine(1) due on 11/21/2024 Covid-19 Vaccine(2023- season) due on 02/22/2025 Depression Screening due on 02/22/2025 Annual PCP Team Chronic Disease Visit due on 06/21/2025 BP Controlled (<130/80) due on 06/21/2025 Diabetes Screening due on 02/19/2027 Lipid Screening due on 12/25/2027 Data reviewed None ASSESSMENT/PLAN: 1. Sore throat - ICD9: 462, ICD10: J02.9 (primary diagnosis) - suspect strep - Treat with Amoxicillin - Send Rx of Diflucan due to hx of rash and yeast infection - Off work today and tomorrow. 2. Sinus congestion - ICD9: 478.19, ICD10: R09.81 - As noted above Pt to stay off work today and tomorrow. To update office if not improving. I agree with the Chief Complaint, ROS, and Past Histories independently gathered by the clinical data support analyst and the remaining scribed note accurately describes my personal service to the patient. Medical Decision Making: Problems: Low: Acute, uncomplicated illness or injury Risk: Moderate: Drug management Medical Decision Making Level: 3 - Low Sue Weber MD The documentation for this note was completed by Mavis Shen MA acting as scribe for Sue Weber MD. July 04, 2024 3:30 PM. Mavis Shen MA documented in this encounter [facility] 07-04-2024 Note HNO ID: [id number] Author: SUE WEBER MD Service: ? Author Type: Physician Type: Progress Notes Filed: 07/04/2024 15:42 Note Text: Chief Complaint Patient presents with: Sore Throat: Cold symptoms HPI Payton Mcqueen is a 59 year old female who presents here today for severe sore throat. Pt here today for an acute visit. Pt c/o of symptoms of sneezing and watery eyes on and Thursday last week, thought this was allergy related. Over the weekend she started experiencing a sore throat that gradually became worse, with a low grade fever. The sore throat is now affecting her voice. States she's not a had a sore throat in quite some time. The throat pain is described as a burning and sore pain. Denies anything in her chest, but mainly up in her sinuses. Ears don't really feel like an issue at this time. Has not really been taking anything for cold symptoms. Has taken Advil for pain relief and using cough drops. Reports she's been doing really good until this. She did not go to work today as she didn't know what to do and unsure what she should do in regards to her cold symptoms. Reports the [facility] has a lot of Norovirus going around along with other illnesses such as strep and Flu. Past medical history, appointments, medications, allergies reviewed. Previous Medical History PAST MEDICAL HISTORY Diagnosis Date Acute gastritis without mention of hemorrhage Anxiety Benign neoplasm of stomach Cervical disc disorder with radiculopathy 02/18/2010 Cyst of ovary 01/01/2015 [facility] - see scanned documents Depressive disorder, not elsewhere classified Essential thrombocythemia (HCC) 06/02/2016 GERD (gastroesophageal reflux disease) Hypertension 08/28/11 IC (interstitial cystitis) Impaired fasting glucose 04/02/2010 Lumbar disc disease with radiculopathy 11/15/2010 Metabolic syndrome X Morbid obesity with BMI of 40.0-44.9, adult ([facility]) 08/29/2013 Renal cyst, left 07/03/2016 18 mm, 06/18/16 Sciatica SI (sacroiliac) joint dysfunction 06/04/2011 Thoracolumbar back pain 07/20/2013 Unspecified hypothyroidism Urinary calculus, unspecified Renal stones Previous Surgical History PAST SURGICAL HISTORY Procedure Laterality Date CHOLECYSTECTOMY 1991 Cholecystectomy CYSTOSCOPY,DIL BLADDER,LOCAL ANESTH 01/18/14 EGD TRANSORAL BIOPSY SINGLE/MULTIPLE 04/09/2007 gastritis, gastric polyps KIDNEY SURGERY HX 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 6 weeks Erythromycin GI Upset Lisinopril Unknown Cough, hypotension Metformin GI Upset Mobic [Meloxicam] Vomiting Prochlorperazine Mental Status Change Agitation, felt ill Toradol [Ketorolac] Vomiting Vesicare [Solifenac* Rash Current Medications Current Outpatient Medications on File Prior to Visit Medication Sig ondansetron (ZOFRAN) 8 mg tablet Take 1 tablet by mouth every 8 hours as needed. omeprazole (PRILOSEC) 40 mg capsule Take 1 capsule by mouth once daily. levothyroxine (SYNTHROID) 175 mcg tablet Take 1 tablet by mouth once daily. Take on empty stomach. For Thyroid. busPIRone (BUSPAR) 15 mg tablet Take 1 tablet by mouth three times a day. sucralfate (CARAFATE) 1 gram tablet Take 1 tablet by mouth four times daily. Before meals and at bedtime buPROPion XL (WELLBUTRIN XL) 300 mg 24 hr tablet Take 1 tablet by mouth once daily. methenam/sod phos/mblue/hyoscy (UROGESIC-BLUE ORAL) Take 1 capsule by mouth once daily. mirabegron (MYRBETRIQ) 50 mg Tb24 Take 1 tablet by mouth once daily. SACCHAROMYCES BOULARDII (PROBIOTIC, S.BOULARDII, ORAL) Take by mouth once daily. No current facility-administered medications on file prior to visit. Social History Social History Tobacco Use Smoking status: Never Smokeless tobacco: Never Vaping Use Vaping status: Never Used Substance Use Topics Alcohol use: Yes Comment: rarely Drug use: No EXAM: BP 148/96 (BP Site: Left Arm, BP Position: Sitting, BP Cuff Size: Regular Adult) Pulse 80 Temp 36.9 ?C (98.4 ?F) (Tympanic) Resp 18 Wt 102.7 kg (226 lb 6.6 oz) LMP 05/09/2018 (Approximate) BMI 40.11 kg/m? General Appearance: Well appearing, alert, in no acute distress, well-hydrated, well nourished. and Obese. Ears: External ears normal, canals clear. Oropharynx: posterior erythema Neck: Supple, minimal adenopathy noted on exam, with tenderness to palpate; (more content not included)... [facility] 06-21-2024 History of Present illness Narrative Chief Complaint Patient presents with: Arm Pain: Left upper arm HPI Payton Mcqueen is a 59 year old female who presents here today for an acute visit. Pt here today with c/o of pain to upper left arm and radiates in the upper arm, she has felt a with a lump or cyst that she noticed over the weekend. She noticed the lump before and it went away on it's own. The arm has been painful off and on x 2 weeks. No injury. She used ice and heat, ibuprofen for pain. The lump is not getting bigger, thinks it might actually have gotten smaller. She states it is hard to sleep at night when she lays on that side. No numbness/tingling into the arm. No swelling to the arm, no redness, rashes. No pain into the shoulder or past elbow. Pt rates pain 8/10, burning, sharp, sore, grabbing, radiating pain off and on x 2 weeks. The lump does not seem to be getting worse or larger in size. Offered Prednisone but pt states it's hard for me to take Prednisone. Advised her to continue with OTC pain relievers. Past medical history, appointments, medications, allergies reviewed. Previous Medical History PAST MEDICAL HISTORY Diagnosis Date Acute gastritis without mention of hemorrhage Anxiety Benign neoplasm of stomach Cervical disc disorder with radiculopathy 02/18/2010 Cyst of ovary 01/01/2015 [facility] - see scanned documents Depressive disorder, not elsewhere classified Essential thrombocythemia (HCC) 06/02/2016 GERD (gastroesophageal reflux disease) Hypertension 08/28/11 IC (interstitial cystitis) Impaired fasting glucose 04/02/2010 Lumbar disc disease with radiculopathy 11/15/2010 Metabolic syndrome X Morbid obesity with BMI of 40.0-44.9, adult (HCC) 08/29/2013 Renal cyst, left 07/03/2016 18 mm, 06/18/16 Sciatica SI (sacroiliac) joint dysfunction 06/04/2011 Thoracolumbar back pain 07/20/2013 Unspecified hypothyroidism Urinary calculus, unspecified Renal stones Previous Surgical History PAST SURGICAL HISTORY Procedure Laterality Date CHOLECYSTECTOMY 1991 Cholecystectomy CYSTOSCOPY,DIL BLADDER,LOCAL ANESTH 01/18/14 EGD TRANSORAL BIOPSY SINGLE/MULTIPLE 04/09/2007 gastritis, gastric polyps KIDNEY SURGERY HX 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 6 weeks Erythromycin GI Upset Lisinopril Unknown Cough, hypotension Metformin GI Upset Mobic [Meloxicam] Vomiting Prochlorperazine Mental Status Change Agitation, felt ill Toradol [Ketorolac] Vomiting Vesicare [Solifenac* Rash Current Medications Current Outpatient Medications on File Prior to Visit Medication Sig ondansetron (ZOFRAN) 8 mg tablet Take 1 tablet by mouth every 8 hours as needed. omeprazole (PRILOSEC) 40 mg capsule Take 1 capsule by mouth once daily. levothyroxine (SYNTHROID) 175 mcg tablet Take 1 tablet by mouth once daily. Take on empty stomach. For Thyroid. busPIRone (BUSPAR) 15 mg tablet Take 1 tablet by mouth three times a day. sucralfate (CARAFATE) 1 gram tablet Take 1 tablet by mouth four times daily. Before meals and at bedtime buPROPion XL (WELLBUTRIN XL) 300 mg 24 hr tablet Take 1 tablet by mouth once daily. methenam/sod phos/mblue/hyoscy (UROGESIC-BLUE ORAL) Take 1 capsule by mouth once daily. mirabegron (MYRBETRIQ) 50 mg Tb24 Take 1 tablet by mouth once daily. SACCHAROMYCES BOULARDII (PROBIOTIC, S.BOULARDII, ORAL) Take by mouth once daily. No current facility-administered medications on file prior to visit. Social History Social History Tobacco Use Smoking status: Never Smokeless tobacco: Never Vaping Use Vaping status: Never Used Substance Use Topics Alcohol use: Yes Comment: rarely Drug use: No EXAM: BP 122/70 Pulse 88 Resp 16 Wt 101.7 kg (224 lb 3.3 oz) LMP 05/09/2018 (Approximate) BMI 39.72 kg/m General Appearance: Well appearing, alert, in no acute distress, well-hydrated, well nourished. and Overweight. Extremities: left arm, pain with movement, tenderness to left lateral upper arm, no masses appreciated, no redness or swelling, good ROM Health Maintenance List Hepatitis B Vaccine(1 of 3 - 19+ 3-dose series) Never done Colorectal Cancer Screening Never done Shingrix Vaccine(1 of 2) Never done Pneumococcal Vaccine: 50+(1 of 1 - PCV) Never done BP Controlled (<130/80) due on 10/10/2018 DTaP,Tdap,Td Vaccine(6 - Td or Tdap) due on 12/20/2018 Cervical Cancer Screening due on 04/11/2020 Mammogram Screening due on 01/01/2024 Hepatitis C Screening due on 10/15/2024 HIV Screening due on 10/15/2024 Influenza Vaccine(1) due on 11/21/2024 Covid-19 Vaccine(3 - season) due on 02/22/2025 Depression Screening due on 02/22/2025 Annual PCP Team Chronic Disease Visit due on 06/03/2025 Diabetes Screening due on 02/19/2027 Lipid Screening due on 12/25/2027 HPV Vaccine Aged Out Data reviewed None ASSESSMENT/PLAN: 1. Left arm pain - ICD9: 729.5, ICD10: M79.602 No discrete abnormality seen; continue symptomatic care with heat/ice, advil, follow up prn I agree with the Chief Complaint, ROS, and Past Histories independently gathered by the clinical data support analyst and the remaining scribed note accurately describes my personal service to the patient. Medical Decision Making: Problems: Low: Acute, uncomplicated illness or injury Risk: Moderate: Drug management Medical Decision Making Level: 3 - Low Sue Weber MD The documentation for this note was completed by Andreina Caicedo MA acting as scribe for Sue Weber MD. June 21, 2024 4:28 PM. Andreina Caicedo MA documented in this encounter [facility] 06-21-2024 Note HNO ID: [id number] Author: SUE WEBER MD Service: ? Author Type: Physician Type: Progress Notes Filed: 06/21/2024 16:54 Note Text: Chief Complaint Patient presents with: Arm Pain: Left upper arm HPI Payton Mcqueen is a 59 year old female who presents here today for an acute visit. Pt here today with c/o of pain to upper left arm and radiates in the upper arm, she has felt a with a lump or cyst that she noticed over the weekend. She noticed the lump before and it went away on it's own. The arm has been painful off and on x 2 weeks. No injury. She used ice and heat, ibuprofen for pain. The lump is not getting bigger, thinks it might actually have gotten smaller. She states it is hard to sleep at night when she lays on that side. No numbness/tingling into the arm. No swelling to the arm, no redness, rashes. No pain into the shoulder or past elbow. Pt rates pain 8/10, burning, sharp, sore, grabbing, radiating pain off and on x 2 weeks. The lump does not seem to be getting worse or larger in size. Offered Prednisone but pt states it's hard for me to take Prednisone. Advised her to continue with OTC pain relievers. Past medical history, appointments, medications, allergies reviewed. Previous Medical History PAST MEDICAL HISTORY Diagnosis Date Acute gastritis without mention of hemorrhage Anxiety Benign neoplasm of stomach Cervical disc disorder with radiculopathy 02/18/2010 Cyst of ovary 01/01/2015 [facility] - see scanned documents Depressive disorder, not elsewhere classified Essential thrombocythemia (HCC) 06/02/2016 GERD (gastroesophageal reflux disease) Hypertension 08/28/11 IC (interstitial cystitis) Impaired fasting glucose 04/02/2010 Lumbar disc disease with radiculopathy 11/15/2010 Metabolic syndrome X Morbid obesity with BMI of 40.0-44.9, adult (HCC) 08/29/2013 Renal cyst, left 07/03/2016 18 mm, 06/18/16 Sciatica SI (sacroiliac) joint dysfunction 06/04/2011 Thoracolumbar back pain 07/20/2013 Unspecified hypothyroidism Urinary calculus, unspecified Renal stones Previous Surgical History PAST SURGICAL HISTORY Procedure Laterality Date CHOLECYSTECTOMY 1991 Cholecystectomy CYSTOSCOPY,DIL BLADDER,LOCAL ANESTH 01/18/14 EGD TRANSORAL BIOPSY SINGLE/MULTIPLE 04/09/2007 gastritis, gastric polyps KIDNEY SURGERY HX 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 6 weeks Erythromycin GI Upset Lisinopril Unknown Cough, hypotension Metformin GI Upset Mobic [Meloxicam] Vomiting Prochlorperazine Mental Status Change Agitation, felt ill Toradol [Ketorolac] Vomiting Vesicare [Solifenac* Rash Current Medications Current Outpatient Medications on File Prior to Visit Medication Sig ondansetron (ZOFRAN) 8 mg tablet Take 1 tablet by mouth every 8 hours as needed. omeprazole (PRILOSEC) 40 mg capsule Take 1 capsule by mouth once daily. levothyroxine (SYNTHROID) 175 mcg tablet Take 1 tablet by mouth once daily. Take on empty stomach. For Thyroid. busPIRone (BUSPAR) 15 mg tablet Take 1 tablet by mouth three times a day. sucralfate (CARAFATE) 1 gram tablet Take 1 tablet by mouth four times daily. Before meals and at bedtime buPROPion XL (WELLBUTRIN XL) 300 mg 24 hr tablet Take 1 tablet by mouth once daily. methenam/sod phos/mblue/hyoscy (UROGESIC-BLUE ORAL) Take 1 capsule by mouth once daily. mirabegron (MYRBETRIQ) 50 mg Tb24 Take 1 tablet by mouth once daily. SACCHAROMYCES BOULARDII (PROBIOTIC, S.BOULARDII, ORAL) Take by mouth once daily. No current facility-administered medications on file prior to visit. Social History Social History Tobacco Use Smoking status: Never Smokeless tobacco: Never Vaping Use Vaping status: Never Used Substance Use Topics Alcohol use: Yes Comment: rarely Drug use: No EXAM: BP 122/70 Pulse 88 Resp 16 Wt 101.7 kg (224 lb 3.3 oz) LMP 05/09/2018 (Approximate) BMI 39.72 kg/m? General Appearance: Well appearing, alert, in no acute distress, well-hydrated, well nourished. and Overweight. Extremities: left arm, pain with movement, tenderness to left lateral upper arm, no masses appreciated, no redness or swelling, good ROM Health Maintenance List Hepatitis B Vaccine(1 of 3 - 19+ 3-dose series) Never done Colorectal Cancer Screening Never done Shingrix Vaccine(1 of 2) Never done Pneumococcal Vaccine: 50+(1 of 1 (more content not included)... [facility] 06-03-2024 History of Present illness Narrative Chief Complaint Patient presents with: F/U 3 Month HPI Payton Flores Richar is a 58 year old female who presents here today for 3 month follow up. Here today for a 3 month follow up. GI/Uro - Notes having a lot of stomach issues. Feels her stomach is upset due to her ongoing health issues. Does feel it's doing slightly better, no issues at this time. Feels like she has a lot of pressure/gas at times. Not using Miralax at this time, was using for constipation. Hx of OAB, taking Mybetriq 50 mg once daily. Follows with Dr. Andrade. Had tried Gemtesa in the past but caused hives. GERD: Taking Carafate 1 gram QID and Prilosec 40 mg daily. Thyroid: Taking Synthroid 175 mcg daily. No missed dosages. SHEYLA: Stable; taking Wellbutrin xl 300 mg daily and Buspar 15 mg 1 pill TID. Pt has chronic anxiety about her health. Notes that she's not like this in his workplace and needs to transfer how she is outside to when she comes into office visits. HTN - Has had elevated readings over the last several visits, chronically. Currently on no medications. Pt reports she's an anxious person and tends to be elevated when in the office. [facility] and her diastolic number was in the 70's. Insomnia - Reports chronic issues with sleep, doing better. Does have increased issues when thyroid is off. Current issue at this time is she falls asleep but wakes up a couple hours later and has difficulty falling back asleep. Had skin biopsy done through [facility] on 05/11/24. 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 Pt notes this flared up on her legs on 05/11/24, woke up with this. States her legs looked like she was sun burnt. Was not treated by [facility] and was treated with a Kenalog shot through [facility]. Recommended follow up with [facility] for ongoing plan. Pt would like to have glands checked to make sure she doesn't have anything going on her sinuses. Was having some issues with her sinuses. Hem/Onc - Follows with Dr. Davis from chronic myeloproliferative disorder. Has been having chronic fever as of lately. Pt does have chronic elevated WBC, RBC, Hematocrit and Platelet count. Past medical history, appointments, medications, allergies reviewed. Previous Medical History PAST MEDICAL HISTORY Diagnosis Date Acute gastritis without mention of hemorrhage Anxiety Benign neoplasm of stomach Cervical disc disorder with radiculopathy 02/18/2010 Cyst of ovary 01/01/2015 [facility] - see scanned documents Depressive disorder, not elsewhere classified Essential thrombocythemia (HCC) 06/02/2016 GERD (gastroesophageal reflux disease) Hypertension 08/28/11 IC (interstitial cystitis) Impaired fasting glucose 04/02/2010 Lumbar disc disease with radiculopathy 11/15/2010 Metabolic syndrome X Morbid obesity with BMI of 40.0-44.9, adult (HCC) 08/29/2013 Renal cyst, left 07/03/2016 18 mm, 06/18/16 Sciatica SI (sacroiliac) joint dysfunction 06/04/2011 Thoracolumbar back pain 07/20/2013 Unspecified hypothyroidism Urinary calculus, unspecified Renal stones Previous Surgical History PAST SURGICAL HISTORY Procedure Laterality Date CHOLECYSTECTOMY 1991 Cholecystectomy CYSTOSCOPY,DIL BLADDER,LOCAL ANESTH 01/18/14 EGD TRANSORAL BIOPSY SINGLE/MULTIPLE 04/09/2007 gastritis, gastric polyps KIDNEY SURGERY HX 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 6 weeks Erythromycin GI Upset Lisinopril Unknown Cough, hypotension Metformin GI Upset Mobic [Meloxicam] Vomiting Prochlorperazine Mental Status Change Agitation, felt ill Toradol [Ketorolac] Vomiting Vesicare [Solifenac* Rash Current Medications Current Outpatient Medications on File Prior to Visit Medication Sig ondansetron (ZOFRAN) 8 mg tablet Take 1 tablet by mouth every 8 hours as needed. omeprazole (PRILOSEC) 40 mg capsule Take 1 capsule by mouth once daily. levothyroxine (SYNTHROID) 175 mcg tablet Take 1 tablet by mouth once daily. Take on empty stomach. For Thyroid. busPIRone (BUSPAR) 15 mg tablet Take 1 tablet by mouth three times a day. sucralfate (CARAFATE) 1 gram tablet Take 1 tablet by mouth four times daily. Before meals and at bedtime buPROPion XL (WELLBUTRIN XL) 300 mg 24 hr tablet Take 1 tablet by mouth once daily. cetirizine (ZYRTEC) 10 mg tablet Take 1 tablet by mouth once daily. methenam/sod phos/mblue/hyoscy (UROGESIC-BLUE ORAL) Take 1 capsule by mouth once daily. mirabegron (MYRBETRIQ) 50 mg Tb24 Take 1 tablet by mouth once daily. SACCHAROMYCES BOULARDII (PROBIOTIC, S.BOULARDII, ORAL) Take by mouth once daily. No current facility-administered medications on file prior to visit. Social History Social History Tobacco Use Smoking status: Never Smokeless tobacco: Never Vaping Use Vaping status: Never Used Substance Use Topics Alcohol use: Yes Comment: rarely Drug use: No EXAM: BP 142/92 Pulse 78 Resp 16 Wt 103.9 kg (229 lb 0.9 oz) LMP 05/09/2018 (Approximate) BMI 40.58 kg/m General Appearance: Well appearing, alert, in no acute distress, well-hydrated, well nourished. and Obese. Neck: Supple, no adenopathy. Lungs: Lungs clear to auscultation. No wheezing, rhonchi, rales.. Heart: RRR without murmur, gallop, or rubs. No ectopy. Health Maintenance List Hepatitis B Vaccine(1 of 3 - 19+ 3-dose series) Never done Colorectal Cancer Screening Never done Shingrix Vaccine(1 of 2) Never done Pneumococcal Vaccine: 50+(1 of 1 - PCV) Never done BP Controlled (<130/80) due on 10/10/2018 DTaP,Tdap,Td Vaccine(6 - Td or Tdap) due on 12/20/2018 Cervical Cancer Screening due on 04/11/2020 Mammogram Screening due on 01/01/2024 Hepatitis C Screening due on 10/15/2024 HIV Screening due on 10/15/2024 Influenza Vaccine(1) due on 11/21/2024 Covid-19 Vaccine( - 2023- season) due on 02/22/2025 Depression Screening due on 02/22/2025 Annual PCP Team Chronic Disease Visit due on 04/28/2025 Diabetes Screening due on 02/19/2027 Lipid Screening due on 12/25/2027 HPV Vaccine Aged Out Data reviewed Appointment on 06/01/2024 Component Date Value WBC 06/01/2024 29.56 (H) RBC 06/01/2024 6.75 (H) Hemoglobin 06/01/2024 15.0 Hematocrit 06/01/2024 51.1 (H) MCV 06/01/2024 75.7 (L) MCH 06/01/2024 22.2 (L) MCHC 06/01/2024 29.4 (L) RDW-CV 06/01/2024 24.7 (H) Platelet Count 06/01/2024 484 (H) MPV 06/01/2024 10.0 NRBC 06/01/2024 1.0 Absolute nRBC 06/01/2024 0.30 (H) Neutrophils % 06/01/2024 89.0 Abs Neut (Segs + Bands) 06/01/2024 26.31 (H) Lymphocytes % 06/01/2024 7.0 Abs Lymph (Normal + Reac* 06/01/2024 2.07 Monocytes % 06/01/2024 1.0 Abs [place] 06/01/2024 0.30 Eosin% 06/01/2024 1.0 Abs Eosin 06/01/2024 0.30 Basophils % 06/01/2024 2.0 Abs Baso 06/01/2024 0.59 (H) Platelet Estimate 06/01/2024 Increased Red Cell Morph 06/01/2024 Reviewed: see results of individual morphologies Polychromasia 06/01/2024 Slight Anisocytosis 06/01/2024 Present Ovalocytes 06/01/2024 Few RBC Fragments 06/01/2024 Few (A) Diff Type 06/01/2024 Manual Iron 06/01/2024 24 (L) TIBC 06/01/2024 429 (H) Transferrin Saturation 06/01/2024 5.6 (L) Ferritin 06/01/2024 25.3 Vitamin B12 06/01/2024 981 TSH 06/01/2024 3.470 Free T4 06/01/2024 1.6 Office Visit on 04/28/2024 Component Date Value GLUCOSE UA (POCT) 04/28/2024 Negative BILIRUBIN UA (POCT) 04/28/2024 Negative KETONE UA (POCT) 04/28/2024 Negative SPECIFIC GRAVITY UA (POC* 04/28/2024 1.010 HEMOGLOBIN/BLOOD UA (PO* 04/28/2024 Negative PH UA (POCT) 04/28/2024 5.5 PROTEIN UA (POCT) 04/28/2024 Negative UROBILINOGEN UA (POCT) 04/28/2024 0.2 NITRITE UA (POCT) 04/28/2024 Negative LEUKOCYTES UA (POCT) 04/28/2024 Trace (A) COLOR UA (POCT) 04/28/2024 Yellow CLARITY UA (POCT) 04/28/2024 Clear ASSESSMENT/PLAN: 1. Gastroesophageal reflux disease without esophagitis - ICD9: 530.81, ICD10: K21.9 (primary diagnosis) - Continue current medication regimen. - Can use Miralax for bowels if constipated 2. Generalized anxiety disorder - ICD9: 300.02, ICD10: F41.1 - Stable - Continue current medication regimen. 3. Adjustment disorder with depressed mood - ICD9: 309.0, ICD10: F43.21 - Stable - Continue current medication regimen. 4. Hypothyroidism, unspecified type - ICD9: 244.9, ICD10: E03.9 - Instructed patient on importance of taking on an empty stomach either first thing in the morning or at bedtime. - check TSH and free T4 in 6 months 5. Essential hypertension, benign - ICD9: 401.1, ICD10: I10 - elevated - Recommend home blood pressure monitoring, to bring results to next visit - Encouraged sodium restriction, DASH or Mediterranean diet - Recommend regular aerobic exercise 6. Dermatitis - ICD9: 692.9, ICD10: L30.9 - discussed skin care of rash - follow up if symptoms persist or worsen. - Follow up with Dermatology for treatment and continued symptoms and path results. 6 mo f/u with labs. I agree with the Chief Complaint, ROS, and Past Histories independently gathered by the clinical data support analyst and the remaining scribed note accurately describes my personal service to the patient. Medical Decision Making: Problems: Moderate: 2+ stable chronic illnesses Data: Unique test result(s) reviewed: 2 Unique test(s) ordered: 2 Risk: Moderate: Drug management Medical Decision Making Level: 4 - Moderate Sue Weber MD The documentation for this note was completed by Mavis Shen MA acting as scribe for Sue Weber MD. June 03, 2024 3:14 PM. Mavis Shen MA documented in this encounter [facility] 06-03-2024 Note HNO ID: [id number] Author: SUE WEBER MD Service: ? Author Type: Physician Type: Progress Notes Filed: 06/03/2024 15:46 Note Text: Chief Complaint Patient presents with: F/U 3 Month HPI Payton Mcqueen is a 58 year old female who presents here today for 3 month follow up. Here today for a 3 month follow up. GI/Uro - Notes having a lot of stomach issues. Feels her stomach is upset due to her ongoing health issues. Does feel it's doing slightly better, no issues at this time. Feels like she has a lot of pressure/gas at times. Not using Miralax at this time, was using for constipation. Hx of OAB, taking Mybetriq 50 mg once daily. Follows with Dr. Andrade. Had tried Gemtesa in the past but caused hives. GERD: Taking Carafate 1 gram QID and Prilosec 40 mg daily. Thyroid: Taking Synthroid 175 mcg daily. No missed dosages. SHEYLA: Stable; taking Wellbutrin xl 300 mg daily and Buspar 15 mg 1 pill TID. Pt has chronic anxiety about her health. Notes that she's not like this in his workplace and needs to transfer how she is outside to when she comes into office visits. HTN - Has had elevated readings over the last several visits, chronically. Currently on no medications. Pt reports she's an anxious person and tends to be elevated when in the office. [facility] and her diastolic number was in the 70's. Insomnia - Reports chronic issues with sleep, doing better. Does have increased issues when thyroid is off. Current issue at this time is she falls asleep but wakes up a couple hours later and has difficulty falling back asleep. Had skin biopsy done through [facility] on 05/11/24. 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 Pt notes this flared up on her legs on 05/11/24, woke up with this. States her legs looked like she was sun burnt. Was not treated by [facility] and was treated with a Kenalog shot [facility]. Recommended follow up with [facility] for ongoing plan. Pt would like to have glands checked to make sure she doesn't have anything going on her sinuses. Was having some issues with her sinuses. Hem/Onc - Follows with Dr. Davis from chronic myeloproliferative disorder. Has been having chronic fever as of lately. Pt does have chronic elevated WBC, RBC, Hematocrit and Platelet count. Past medical history, appointments, medications, allergies reviewed. Previous Medical History PAST MEDICAL HISTORY Diagnosis Date Acute gastritis without mention of hemorrhage Anxiety Benign neoplasm of stomach Cervical disc disorder with radiculopathy 02/18/2010 Cyst of ovary 01/01/2015 [facility] - see scanned documents Depressive disorder, not elsewhere classified Essential thrombocythemia (HCC) 06/02/2016 GERD (gastroesophageal reflux disease) Hypertension 08/28/11 IC (interstitial cystitis) Impaired fasting glucose 04/02/2010 Lumbar disc disease with radiculopathy 11/15/2010 Metabolic syndrome X Morbid obesity with BMI of 40.0-44.9, adult (HCC) 08/29/2013 Renal cyst, left 07/03/2016 18 mm, 06/18/16 Sciatica SI (sacroiliac) joint dysfunction 06/04/2011 Thoracolumbar back pain 07/20/2013 Unspecified hypothyroidism Urinary calculus, unspecified Renal stones Previous Surgical History PAST SURGICAL HISTORY Procedure Laterality Date CHOLECYSTECTOMY 1991 Cholecystectomy CYSTOSCOPY,DIL BLADDER,LOCAL ANESTH 01/18/14 EGD TRANSORAL BIOPSY SINGLE/MULTIPLE 04/09/2007 gastritis, gastric polyps KIDNEY SURGERY HX 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 6 weeks Erythromycin GI Upset Lisinopril Unknown Cough, hypotension Metformin GI Upset Mobic [Meloxicam] Vomiting Prochlorperazine Mental Status Change Agitation, felt ill Toradol [Ketorolac] Vomiting Vesicare [Solifenac* Rash Current Medications Current Outpatient Medications on File Prior to Visit Medication Sig ondansetron (ZOFRAN) 8 mg tablet Take 1 tablet by mouth every 8 hours as needed. omeprazole (PRILOSEC) 40 mg capsule Take 1 capsule by mouth once daily. levothyroxine (SYNTHROID) 175 mcg tablet Take 1 tablet by mouth once daily. Take on empty stomach. For Thyroid. busPIRone (BUSPAR) 15 mg tablet Take 1 tablet by mouth three times a day. sucralfate (CARAFATE) 1 gram tablet Take 1 tablet by mouth four times (more content not included)... [facility] 05-11-2024 Evaluation note Diagnosis Onset Date Resolution Allergic dermatitis acute Decem 2023 5:07pm Rash noneactive May 11, 2024 5:07pm [facility] Work Phone: 1(435) 618-599612-17-2024 Telephone encounter Note* Telephone Encounter - Shari Duron LPN - 05/10/2024 4:43 PM EST Prescription Refill Information The patient has been identified by name and date of : Yes Caregiver verified no other encounters exist for this prescription request: Yes Caregiver confirmed with patient/requestor that no other refills are due, in the near future, with this provider at this time: Yes The last office visit in the department: 07/31/2023 Does the patient have a future office visit with this provider/department: Yes Requested Prescriptions Pending Prescriptions Disp Refills ondansetron (ZOFRAN) 8 mg tablet 30 tablet 2 Sig: Take 1 tablet by mouth every 8 hours as needed. Shari Duron LPN May 10, 2024 4:44 PM [facility]12-17-2024 Miscellaneous Notes* Telephone Encounter - Shari Duron LPN - 05/10/2024 4:43 PM EST Prescription Refill Information The patient has been identified by name and date of : Yes Caregiver verified no other encounters exist for this prescription request: Yes Caregiver confirmed with patient/requestor that no other refills are due, in the near future, with this provider at this time: Yes The last office visit in the department: 07/31/2023 Does the patient have a future office visit with this provider/department: Yes Requested Prescriptions Pending Prescriptions Disp Refills ondansetron (ZOFRAN) 8 mg tablet 30 tablet 2 Sig: Take 1 tablet by mouth every 8 hours as needed. Shari Duron LPN May 10, 2024 4:44 PM [facility] History of Present illness Narrative* Sue Weber MD - 04/28/2024 9:40 AM EST Chief Complaint Patient presents with: Fever: Chills, upset stomach, nausea HPI Payton Mcqueen is a 58 year old female who presents here today for illness. Pt was seen in office on 04/22/24 for bacterial conjunctivitis and yeast infection which she was treated for. Since being seen she has had some flu like sx: stomach issues, chills, nausea, fever running around 100.9. No vomiting or diarrhea. No SOB or cough. 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 Has used some left over anti nausea medication. Pt stated that it could have flared up due to being off Prilosec for 2 days which she typically takes regularly, was out of refills. Is back on themedication. Stomach is making noises and she has a heavy feeling in her stomach. Tried using GasX that helped a little. Unsure if she has a UTI, has pressure, some pain with urinating but admits she had a vaginal yeast infection so already had some irritation. Had a UTI in Feb that was so bad she stated she had to be treated with Levaquin. She knows having Covid 2 x last year is causing her issues. She worries about missing work but is told if she is ill not to come in. She states no one has said anything to her about her attendance. Was scheduled off Thursday but missed work , Thu, . Past medical history, appointments, medications, allergies reviewed. Previous Medical History PAST MEDICAL HISTORY Diagnosis Date Acute gastritis without mention of hemorrhage Anxiety Benign neoplasm of stomach Cervical disc disorder with radiculopathy 02/18/2010 Cyst of ovary 01/01/2015 [facility] - see scanned documents Depressive disorder, not elsewhere classified Essential thrombocythemia (HCC) 06/02/2016 GERD (gastroesophageal reflux disease) Hypertension 08/28/11 IC (interstitial cystitis) Impaired fasting glucose 04/02/2010 Lumbar disc disease with radiculopathy 11/15/2010 Metabolic syndrome X Morbid obesity with BMI of 40.0-44.9, adult (HCC) 08/29/2013 Renal cyst, left 07/03/2016 18 mm, 06/18/16 Sciatica SI (sacroiliac) joint dysfunction 06/04/2011 Thoracolumbar back pain 07/20/2013 Unspecified hypothyroidism Urinary calculus, unspecified Renal stones Previous Surgical History PAST SURGICAL HISTORY Procedure Laterality Date CHOLECYSTECTOMY 1991 Cholecystectomy CYSTOSCOPY,DIL BLADDER,LOCAL ANESTH 01/18/14 EGD TRANSORAL BIOPSY SINGLE/MULTIPLE 04/09/2007 gastritis, gastric polyps KIDNEY SURGERY HX 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 6 weeks Erythromycin GI Upset Lisinopril Unknown Cough, hypotension Metformin GI Upset Mobic [Meloxicam] Vomiting Prochlorperazine Mental Status Change Agitation, felt ill Toradol [Ketorolac] Vomiting Vesicare [Solifenac* Rash Current Medications Current Outpatient Medications on File Prior to Visit Medication Sig omeprazole (PRILOSEC) 40 mg capsule Take 1 capsule by mouth once daily. levothyroxine (SYNTHROID) 175 mcg tablet Take 1 tablet by mouth once daily. Take on empty stomach. For Thyroid. busPIRone (BUSPAR) 15 mg tablet Take 1 tablet by mouth three times a day. sucralfate (CARAFATE) 1 gram tablet Take 1 tablet by mouth four times daily. Before meals and at bedtime ondansetron (ZOFRAN) 8 mg tablet Take 1 tablet by mouth every 8 hours as needed. buPROPion XL (WELLBUTRIN XL) 300 mg 24 hr tablet Take 1 tablet by mouth once daily. cetirizine (ZYRTEC) 10 mg tablet Take 1 tablet by mouth once daily. methenam/sod phos/mblue/hyoscy (UROGESIC-BLUE ORAL) Take 1 capsule by mouth once daily. mirabegron (MYRBETRIQ) 50 mg Tb24 Take 1 tablet by mouth once daily. SACCHAROMYCES BOULARDII (PROBIOTIC, S.BOULARDII, ORAL) Take by mouth once daily. No current facility-administered medications on file prior to visit. Social History Social History Tobacco Use Smoking status: Never Smokeless tobacco: Never Vaping Use Vaping status: Never Used Substance Use Topics Alcohol use: Yes Comment: rarely Drug use: No EXAM: BP 140/90 Pulse 88 Temp 36.6 C (97.9 F) (Tympanic) Resp 18 Wt 105.9 kg (233 lb 7.5 oz) LMP 05/09/2018 (Approximate) SpO2 94% BMI 41.36 kg/m General Appearance: Well appearing, alert, in no acute distress, well-hydrated, well nourished. andOverweight. Lungs: Lungs clear to auscultation. No wheezing, rhonchi, rales.. Heart: RRR without murmur, gallop, or rubs. No ectopy. Abdomen: Normal abdominal exam, Abdomen soft. Bowel sounds normal. No masses, organomegaly, Tenderness on palpation to the lower abdomen. Health Maintenance List Hepatitis B Vaccine(1 of 3 - 19+ 3-dose series) Never done Colorectal Cancer Screening Never done Shingrix Vaccine(1 of 2) Never done BP Controlled (<130/80) due on 10/10/2018 DTaP,Tdap,Td Vaccine(6 - Td or Tdap) due on 12/20/2018 Cervical Cancer Screening due on 04/11/2020 Mammogram Screening due on 01/01/2024 Hepatitis C Screening due on 10/15/2024 HIV Screening due on 10/15/2024 Influenza Vaccine(1) due on 11/21/2024 Covid-19 Vaccine( season) due on 02/22/2025 Depression Screening due on 02/22/2025 Annual PCP Team Chronic Disease Visit due on 04/22/2025 Diabetes Screening due on 02/19/2027 Lipid Screening due on 12/25/2027 HPV Vaccine Aged Out Data reviewed UA unremarkable ASSESSMENT/PLAN: 1. Viral syndrome - ICD9: 079.99, ICD10: B34.9 (primary diagnosis) - Discussed viral etiology and rationale for treatment. - Symptomatic treatment with prn analgesia - Supportive care with fluids and rest 2. Pain with urination - ICD9: 788.1, ICD10: R30.9 UA OK today; no further treatmetn - UA DIP, URINE (POC) Note for work this week Follow up prn I agree with the Chief Complaint, ROS, and Past Histories independently gathered by the clinical data support analyst and the remaining scribed note accurately describes my personal service to the patient. Medical Decision Making: Problems: Low: Acute, uncomplicated illness or injury Data: Unique test result(s) reviewed: 1 Unique test(s) ordered: 1 Risk: Low: Low risk from testing/treatment Medical Decision Making Level: 3 - Low Sue Weber MD The documentation for this note was completed by Andreina Caicedo MA acting as scribe for Sue Weber MD. April 28, 2024 9:45 AM. Andreina Caicedo MA documented [facility]24 NoteHNO ID: [id number] Author: SUE WEBER MD Service: ? Author Type: Physician Type: Progress Notes Filed: 04/28/2024 11:23 Note Text: Chief Complaint Patient presents with: Fever: Chills, upset stomach, nausea HPI Payton Mcqueen is a 58 year old female who presents here today for illness. Pt was seen in office on 04/22/24 for bacterial conjunctivitis and yeast infection which she was treated for. Since being seen she has had some flu like sx: stomach issues, chills, nausea, fever running around 100.9. No vomiting or diarrhea. No SOB or cough. 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 Has used some left over anti nausea medication. Pt stated that it could have flared up due to being off Prilosec for 2 days which she typically takes regularly, was out of refills. Is back on the medication. Stomach is making noises and she has a heavy feeling in her stomach. Tried using GasX that helped a little. Unsure if she has a UTI, has pressure, some pain with urinating but admits she had a vaginal yeast infection so already had some irritation. Had a UTI in Feb that was so bad she stated she had to be treated with Levaquin. She knows having Covid 2 x last year is causing her issues. She worries about missing work but is told if she is ill not to come in. She states no one has said anything to her about her attendance. Was scheduled off Thursday but missed work , Thu, . Past medical history, appointments, medications, allergies reviewed. Previous Medical History PAST MEDICAL HISTORY Diagnosis Date Acute gastritis without mention of hemorrhage Anxiety Benign neoplasm of stomach Cervical disc disorder with radiculopathy 02/18/2010 Cyst of ovary 01/01/2015 [facility] - see scanned documents Depressive disorder, not elsewhere classified Essential thrombocythemia (HCC) 06/02/2016 GERD (gastroesophageal reflux disease) Hypertension 08/28/11 IC (interstitial cystitis) Impaired fasting glucose 04/02/2010 Lumbar disc disease with radiculopathy 11/15/2010 Metabolic syndrome X Morbid obesity with BMI of 40.0-44.9, adult (HCC) 08/29/2013 Renal cyst, left 07/03/2016 18 mm, 06/18/16 Sciatica SI (sacroiliac) joint dysfunction 06/04/2011 Thoracolumbar back pain 07/20/2013 Unspecified hypothyroidism Urinary calculus, unspecified Renal stones Previous Surgical History PAST SURGICAL HISTORY Procedure Laterality Date CHOLECYSTECTOMY 1991 Cholecystectomy CYSTOSCOPY,DIL BLADDER,LOCAL ANESTH 01/18/14 EGD TRANSORAL BIOPSY SINGLE/MULTIPLE 04/09/2007 gastritis, gastric polyps KIDNEY SURGERY HX 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 6 weeks Erythromycin GI Upset Lisinopril Unknown Cough, hypotension Metformin GI Upset Mobic [Meloxicam] Vomiting Prochlorperazine Mental Status Change Agitation, felt ill Toradol [Ketorolac] Vomiting Vesicare [Solifenac* Rash Current Medications Current Outpatient Medications on File Prior to Visit Medication Sig omeprazole (PRILOSEC) 40 mg capsule Take 1 capsule by mouth once daily. levothyroxine (SYNTHROID) 175 mcg tablet Take 1 tablet by mouth once daily. Take on empty stomach. For Thyroid. busPIRone (BUSPAR) 15 mg tablet Take 1 tablet by mouth three times a day. sucralfate (CARAFATE) 1 gram tablet Take 1 tablet by mouth four times daily. Before meals and at bedtime ondansetron (ZOFRAN) 8 mg tablet Take 1 tablet by mouth every 8 hours as needed. buPROPion XL (WELLBUTRIN XL) 300 mg 24 hr tablet Take 1 tablet by mouth once daily. cetirizine (ZYRTEC) 10 mg tablet Take 1 tablet by mouth once daily. methenam/sod phos/mblue/hyoscy (UROGESIC-BLUE ORAL) Take 1 capsule by mouth once daily. mirabegron (MYRBETRIQ) 50 mg Tb24 Take 1 tablet by mouth once daily. SACCHAROMYCES BOULARDII (PROBIOTIC, S.BOULARDII, ORAL) Take by mouth once daily. No current facility-administered medications on file prior to visit. Social History Social History Tobacco Use Smoking status: Never Smokeless tobacco: Never Vaping Use Vaping status: Never Used Substance Use Topics Alcohol use: Yes Comment: rarely Drug use: No EXAM: BP 140/90 Pulse 88 Temp 36.6 ?C (97.9 ?F) (Tympanic) Resp 18 Wt 105.9 kg (233 lb 7.5 oz) LMP 05/09/2018 (Approximate) SpO2 94% BMI 41.36 kg/m? General Appearance: Well appearing, alert, in no acute distress, well-hydra (more content not included)...[facility]11-29-2024 Instructions * Patient Instructions* Mavis Shen MA - 04/22/2024 3:50 PM EST Update office via eXpresso if symptoms do not improve. documented in [facility]Mer[facility]11-29-[facility]24 History of Present illness Narrative* Sue Weber MD - 04/22/2024 3:40 PM EST Chief Complaint Patient presents with: Rash: Eye swelling HPI Payton Mcqueen is a 58 year old female who presents here today for an acute visit. Pt today c/o of eye swelling and facial rash. States her left eye started yesterday afternoon with what felt like a bruise around her eye. Thought initially possibly a sty or pink eye again. Hx of pink eye bilaterally, seen in [facility] on 03/25/24 treated with eye drops. Wondering if this is something that can be dormant and can re-occur. Was using left over drops she had from when she had pink eye, with instructions as noted on bottle. Spoke with Pharmacist who suggested she talk to PCP. Notes she woke up last night with blotches on her face, but has since gone away, notes she took her Zyrtec. Thismorning when she woke up she did wake up with matted eye lashes that she used warm compresses to remove. Does have a slight runny nose, no other cold symptoms. Asking if [facility] has an Eye Doctor would like to see someone through [facility]. Pharmacist told her that pink eye can be viral or bacterial. BP - Noted hx of elevated BP. Tends to be elevated when coming into Doctor's office. Has had BP checks at home and readings are normal. Has had BP checks at work and are normal. Asking if she can have an Rx of Diflucan. Having issues with yeast infection since using Levaquin. Past medical history, appointments, medications, allergies reviewed. Previous Medical History PAST MEDICAL HISTORY Diagnosis Date Acute gastritis without mention of hemorrhage Anxiety Benign neoplasm of stomach Cervical disc disorder with radiculopathy 02/18/2010 Cyst of ovary 01/01/2015 [facility] - see scanned documents Depressive disorder, not elsewhere classified Essential thrombocythemia (HCC) 06/02/2016 GERD (gastroesophageal reflux disease) Hypertension 08/28/11 IC (interstitial cystitis) Impaired fasting glucose 04/02/2010 Lumbar disc disease with radiculopathy 11/15/2010 Metabolic syndrome X Morbid obesity with BMI of 40.0-44.9, adult (HCC) 08/29/2013 Renal cyst, left 07/03/2016 18 mm, 06/18/16 Sciatica SI (sacroiliac) joint dysfunction 06/04/2011 Thoracolumbar back pain 07/20/2013 Unspecified hypothyroidism Urinary calculus, unspecified Renal stones Previous Surgical History PAST SURGICAL HISTORY Procedure Laterality Date CHOLECYSTECTOMY 1991 Cholecystectomy CYSTOSCOPY,DIL BLADDER,LOCAL ANESTH 01/18/14 EGD TRANSORAL BIOPSY SINGLE/MULTIPLE 04/09/2007 gastritis, gastric polyps KIDNEY SURGERY HX 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 6 weeks Erythromycin GI Upset Lisinopril Unknown Cough, hypotension Metformin GI Upset Mobic [Meloxicam] Vomiting Prochlorperazine Mental Status Change Agitation, felt ill Toradol [Ketorolac] Vomiting Vesicare [Solifenac* Rash Current Medications Current Outpatient Medications on File Prior to Visit Medication Sig levothyroxine (SYNTHROID) 175 mcg tablet Take 1 tablet by mouth once daily. Take on empty stomach. For Thyroid. albuterol HFA (PROVENTIL HFA) 90 mcg/actuation inhaler Inhale 2 Puffs as instructed every 4 hours as needed for wheezing/shortness of breath. busPIRone (BUSPAR) 15 mg tablet Take 1 tablet by mouth three times a day. sucralfate (CARAFATE) 1 gram tablet Take 1 tablet by mouth four times daily. Before meals and at bedtime ondansetron (ZOFRAN) 8 mg tablet Take 1 tablet by mouth every 8 hours as needed. buPROPion XL (WELLBUTRIN XL) 300 mg 24 hr tablet Take 1 tablet by mouth once daily. cetirizine (ZYRTEC) 10 mg tablet Take 1 tablet by mouth once daily. omeprazole (PRILOSEC) 40 mg capsule Take 1 capsule by mouth once daily. methenam/sod phos/mblue/hyoscy (UROGESIC-BLUE ORAL) Take 1 capsule by mouth once daily. mirabegron (MYRBETRIQ) 50 mg Tb24 Take 1 tablet by mouth once daily. SACCHAROMYCES BOULARDII (PROBIOTIC, S.BOULARDII, ORAL) Take by mouth once daily. No current facility-administered medications on file prior to visit. Social History Social History Tobacco Use Smoking status: Never Smokeless tobacco: Never Vaping Use Vaping status: Never Used Substance Use Topics Alcohol use: Yes Comment: rarely Drug use: No EXAM: BP 158/82 Pulse 84 Resp 16 Wt 105.8 kg (233 lb 4 oz) LMP 05/09/2018 (Approximate) BMI 41.32 kg/m General Appearance: Well appearing, alert, in no acute distress, well-hydrated, well nourished. andObese. Eyes: Upper eye lid mildly swollen on left eye, some redness noted on exam. Health Maintenance List Hepatitis B Vaccine(1 of 3 - 19+ 3-dose series) Never done Colorectal Cancer Screening Never done Shingrix Vaccine(1 of 2) Never done BP Controlled (<130/80) due on 10/10/2018 DTaP,Tdap,Td Vaccine(6 - Td or Tdap) due on 12/20/2018 Cervical Cancer Screening due on 04/11/2020 Mammogram Screening due on 01/01/2024 Hepatitis C Screening due on 10/15/2024 HIV Screening due on 10/15/2024 Influenza Vaccine(1) due on 11/21/2024 Covid-19 Vaccine( season) due on 02/22/2025 Depression Screening due on 02/22/2025 Annual PCP Team Chronic Disease Visit due on 03/21/2025 Diabetes Screening due on 02/19/2027 Lipid Screening due on 12/25/2027 HPV Vaccine Aged Out Data reviewed None ASSESSMENT/PLAN: 1. Bacterial conjunctivitis - ICD9: 372.39, 041.9, ICD10: H10.9 (primary diagnosis) Bacterial - Use eye drops as prescribed over the weekend. - Update office if not improving. 2. Yeast infection - ICD9: 112.9, ICD10: B37.9 - Rx sent to Pharmacy. - FLUCONAZOLE 150 MG TABLET Consult for Optometry for routine check. Pt to update office if not improved. Follow up prn I agree with the Chief Complaint, ROS, and Past Histories independently gathered by the clinical data support analyst and the remaining scribed note accurately describes my personal service to the patient. Medical Decision Making: Problems: Low: Acute, uncomplicated illness or injury Risk: Moderate: Drug management Medical Decision Making Level: 3 - Low Sue Weber MD The documentation for this note was completed by Mavis Shen MA acting as scribe for Sue Weber MD. April 22, 2024 3:48 PM. Mavis Shen MA documented in this [facility]11-29-[facility]24 NoteHNO ID: [id number] Author: SUE WEBER MD Service: ? Author Type: Physician Type: Progress Notes Filed: 04/22/2024 15:53 Note Text: Chief Complaint Patient presents with: Rash: Eye swelling HPI Payton Mcqueen is a 58 year old female who presents here today for an acute visit. Pt today c/o of eye swelling and facial rash. States her left eye started yesterday afternoon with what felt like a bruise around her eye. Thought initially possibly a sty or pink eye again. Hx of pink eye bilaterally, seen in [facility] on 03/25/24 treated with eye drops. Wondering if this is something that can be dormant and can re-occur. Was using left over drops she had from when she had pink eye, with instructions as noted on bottle. Spoke with Pharmacist who suggested she talk to PCP. Notes she woke up last night with blotches on her face, but has since gone away, notes she took her Zyrtec. This morning when she woke up she did wake up with matted eye lashes that she used warm compresses to remove. Does have a slight runny nose, no other cold symptoms. Asking if [facility] has an Eye Doctor would like to see someone through [facility]. Pharmacist told her that pink eye can be viral or bacterial. BP - Noted hx of elevated BP. Tends to be elevated when coming into Doctor's office. Has had BP checks at home and readings are normal. Has had BP checks at work and are normal. Asking if she can have an Rx of Diflucan. Having issues with yeast infection since using Levaquin. Past medical history, appointments, medications, allergies reviewed. Previous Medical History PAST MEDICAL HISTORY Diagnosis Date Acute gastritis without mention of hemorrhage Anxiety Benign neoplasm of stomach Cervical disc disorder with radiculopathy 02/18/2010 Cyst of ovary 01/01/2015 [facility] - see scanned documents Depressive disorder, not elsewhere classified Essential thrombocythemia (HCC) 06/02/2016 GERD (gastroesophageal reflux disease) Hypertension 08/28/11 IC (interstitial cystitis) Impaired fasting glucose 04/02/2010 Lumbar disc disease with radiculopathy 11/15/2010 Metabolic syndrome X Morbid obesity with BMI of 40.0-44.9, adult (HCC) 08/29/2013 Renal cyst, left 07/03/2016 18 mm, 06/18/16 Sciatica SI (sacroiliac) joint dysfunction 06/04/2011 Thoracolumbar back pain 07/20/2013 Unspecified hypothyroidism Urinary calculus, unspecified Renal stones Previous Surgical History PAST SURGICAL HISTORY Procedure Laterality Date CHOLECYSTECTOMY 1991 Cholecystectomy CYSTOSCOPY,DIL BLADDER,LOCAL ANESTH 01/18/14 EGD TRANSORAL BIOPSY SINGLE/MULTIPLE 04/09/2007 gastritis, gastric polyps KIDNEY SURGERY HX 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 6 weeks Erythromycin GI Upset Lisinopril Unknown Cough, hypotension Metformin GI Upset Mobic [Meloxicam] Vomiting Prochlorperazine Mental Status Change Agitation, felt ill Toradol [Ketorolac] Vomiting Vesicare [Solifenac* Rash Current Medications Current Outpatient Medications on File Prior to Visit Medication Sig levothyroxine (SYNTHROID) 175 mcg tablet Take 1 tablet by mouth once daily. Take on empty stomach. For Thyroid. albuterol HFA (PROVENTIL HFA) 90 mcg/actuation inhaler Inhale 2 Puffs as instructed every 4 hours as needed for wheezing/shortness of breath. busPIRone (BUSPAR) 15 mg tablet Take 1 tablet by mouth three times a day. sucralfate (CARAFATE) 1 gram tablet Take 1 tablet by mouth four times daily. Before meals and at bedtime ondansetron (ZOFRAN) 8 mg tablet Take 1 tablet by mouth every 8 hours as needed. buPROPion XL (WELLBUTRIN XL) 300 mg 24 hr tablet Take 1 tablet by mouth once daily. cetirizine (ZYRTEC) 10 mg tablet Take 1 tablet by mouth once daily. omeprazole (PRILOSEC) 40 mg capsule Take 1 capsule by mouth once daily. methenam/sod phos/mblue/hyoscy (UROGESIC-BLUE ORAL) Take 1 capsule by mouth once daily. mirabegron (MYRBETRIQ) 50 mg Tb24 Take 1 tablet by mouth once daily. SACCHAROMYCES BOULARDII (PROBIOTIC, S.BOULARDII, ORAL) Take by mouth once daily. No current facility-administered medications on file prior to visit. Social History Social History Tobacco Use Smoking status: Never Smokeless tobacco: Never Vaping Use Vaping status: Never Used Substance Use Topics Alcohol use: Yes Comment: rarely Drug use: No EXAM: BP 158/82 Pulse 84 Resp (more content not included)...[facility]11-29-2024 Telephone encounter Note* Telephone Encounter - Gloria Varela LPN - 04/22/2024 10:19 AM EST Change of pharmacy Prescription Refill Information The patient has been identified by name and date of : Yes Caregiver verified no other encounters exist for this prescription request: Yes Caregiver confirmed with patient/requestor that no other refills are due, in the near future, with this provider at this time: Yes The last office visit in the department: 02/23/2024 Does the patient have a future office visit with this provider/department: Yes Requested Prescriptions Pending Prescriptions Disp Refills omeprazole (PRILOSEC) 40 mg capsule 90 capsule 3 Sig: Take 1 capsule by mouth once daily. Gloria Varela LPN April 22, 2024 10:19 AM [facility]11-[facility] Miscellaneous Notes* Telephone Encounter - Gloria Varela LPN - 04/22/2024 10:19 AM EST Change of pharmacy Prescription Refill Information The patient has been identified by name and date of : Yes Caregiver verified no other encounters exist for this prescription request: Yes Caregiver confirmed with patient/requestor that no other refills are due, in the near future, with this provider at this time: Yes The last office visit in the department: 02/23/2024 Does the patient have a future office visit with this provider/department: Yes Requested Prescriptions Pending Prescriptions Disp Refills omeprazole (PRILOSEC) 40 mg capsule 90 capsule 3 Sig: Take 1 capsule by mouth once daily. Gloria Varela LPN April 22, 2024 10:19 AM documented in this encounterMer[facility]11-01-2024 NoteHNO ID: [id number] Author: HANG PARKER APRN.CLERICAL SUPERVISOR Service: ? Author Type: Nurse Practitioner Type: Progress Notes Filed: 03/25/2024 12:37 Note Text: Subjective HPI Nontoxic-appearing female presents urgent care chief complaint left eye irritation. Duration of symptoms 1 day. Associated symptoms eye redness itching and drainage slight irritation. No eye trauma. No foreign body sensation. No flashes light floaters or visual changes. No contact lens use. Denies any fevers. Past medical history prescription medications allergies reviewed. .Patient presents with: Eye Problem: Left eye, swelling, redness, irritated, itching x 1 PAST MEDICAL HISTORY Diagnosis Date Acute gastritis without mention of hemorrhage Anxiety Benign neoplasm of stomach Cervical disc disorder with radiculopathy 02/18/2010 Cyst of ovary 01/01/2015 [facility] - see scanned documents Depressive disorder, not elsewhere classified Essential thrombocythemia (HCC) 06/02/2016 GERD (gastroesophageal reflux disease) Hypertension 08/28/11 IC (interstitial cystitis) Impaired fasting glucose 04/02/2010 Lumbar disc disease with radiculopathy 11/15/2010 Metabolic syndrome X Morbid obesity with BMI of 40.0-44.9, adult (HCC) 08/29/2013 Renal cyst, left 07/03/2016 18 mm, 06/18/16 Sciatica SI (sacroiliac) joint dysfunction 06/04/2011 Thoracolumbar back pain 07/20/2013 Unspecified hypothyroidism Urinary calculus, unspecified Renal stones PAST SURGICAL HISTORY Procedure Laterality Date CHOLECYSTECTOMY 1991 Cholecystectomy CYSTOSCOPY,DIL BLADDER,LOCAL ANESTH 01/18/14 EGD TRANSORAL BIOPSY SINGLE/MULTIPLE 04/09/2007 gastritis, gastric polyps KIDNEY SURGERY HX 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 Valadez PAST SURGICAL HISTORY OF WISDOM TEETH EXTRACTIONS PAST SURGICAL HISTORY OF 05/2012 bladder hydrodistension X 2 PAST SURGICAL HISTORY OF 2014 pain injection lumbar- multiple PAST SURGICAL HISTORY OF Cyst removed from head ALLERGIES Celebrex [Celecoxib], Erythromycin, Lisinopril, Metformin, Mobic [Meloxicam], Prochlorperazine, Toradol [Ketorolac], and Vesicare [Solifenacin] MEDICATIONS nitrofurantoin monohydrate and macrocrystal (MACROBID) 100 mg capsule Take 1 capsule by mouth two times a day with meals for 5 days. levothyroxine (SYNTHROID) 175 mcg tablet Take 1 tablet by mouth once daily. Take on empty stomach. For Thyroid. albuterol HFA (PROVENTIL HFA) 90 mcg/actuation inhaler Inhale 2 Puffs as instructed every 4 hours as needed for wheezing/shortness of breath. busPIRone (BUSPAR) 15 mg tablet Take 1 tablet by mouth three times a day. sucralfate (CARAFATE) 1 gram tablet Take 1 tablet by mouth four times daily. Before meals and at bedtime ondansetron (ZOFRAN) 8 mg tablet Take 1 tablet by mouth every 8 hours as needed. buPROPion XL (WELLBUTRIN XL) 300 mg 24 hr tablet Take 1 tablet by mouth once daily. cetirizine (ZYRTEC) 10 mg tablet Take 1 tablet by mouth once daily. omeprazole (PRILOSEC) 40 mg capsule Take 1 capsule by mouth once daily. methenam/sod phos/mblue/hyoscy (UROGESIC-BLUE ORAL) Take 1 capsule by mouth once daily. mirabegron (MYRBETRIQ) 50 mg Tb24 Take 1 tablet by mouth once daily. SACCHAROMYCES BOULARDII (PROBIOTIC, S.BOULARDII, ORAL) Take by mouth once daily. FAMILY HISTORY Problem Relation Age of Onset Diabetes Father Hypertension Father Cancer Maternal Grandmother Lymphoma Heart Maternal Grandfather hypertension Hypertension Brother Social History Tobacco Use Smoking status: Never Smokeless tobacco: Never Vaping Use Vaping status: Never Used Substance Use Topics Alcohol use: Yes Comment: rarely Drug use: No BP 169/74 Pulse 97 Temp 36.6 ?C (97.8 ?F) Resp 20 Wt 107 kg (235 lb 14.3 oz) LMP 05/09/2018 (Approximate) SpO2 97% BMI 41.79 kg/m? Review of Systems Constitutional: Negative for chills, fever and malaise/fatigue. HENT: Negative for congestion, ear discharge, ear pain, sinus pain and sore throat. Eyes: Positive for discharge and redness. Negative for blurred vision, double vision, photophobia and pain. Respiratory: Negative for cough, hemoptysis, sputum production, shortness of breath, wheezing and stridor. Cardiovascular: Negative for chest pain. Gastrointestinal: Negative for abdominal pain, diarrhea, nausea and vomiting. Musculoskeletal: Negative for myalgias. Skin: Negative for itching and rash. Neurological: Negative for dizziness and headaches. Objective Physical Exam Constitutional: General: She is not in acute distress. Appearance: She is not diaphoretic. HENT: Head: Normocephalic. Jaw: No trismus, tenderness, swelling or pain on movement. Nose: Congestion present. Mouth/Throat: Mouth: Mucous membranes are moist. Pharynx: Oropharynx is clear. Uvula midline. No pharyngeal swelling, oropharyngeal exudate, posterior oropharyngeal erythema or uvula swelling. Eyes: G (more content not included)...[facility]11-01-2024 History of Present illness Narrative* Hang Parker, OCEANOGRAPHER PHYSICAL.[facility] - 03/25/2024 12:15 PM EDT Subjective HPI Nontoxic-appearing female presents urgent care chief complaint left eye irritation. Duration of symptoms 1 day. Associated symptoms eye redness itching and drainage slight irritation. No eye trauma. No foreign body sensation. No flashes light floaters or visual changes. No contact lens use. Denies any fevers. Past medical history prescription medications allergies reviewed. .Patient presents with: Eye Problem: Left eye, swelling, redness, irritated, itching x 1 PAST MEDICAL HISTORY Diagnosis Date Acute gastritis without mention of hemorrhage Anxiety Benign neoplasm of stomach Cervical disc disorder with radiculopathy 02/18/2010 Cyst of ovary 01/01/2015 [facility] - see scanned documents Depressive disorder, not elsewhere classified Essential thrombocythemia (HCC) 06/02/2016 GERD (gastroesophageal reflux disease) Hypertension 08/28/11 IC (interstitial cystitis) Impaired fasting glucose 04/02/2010 Lumbar disc disease with radiculopathy 11/15/2010 Metabolic syndrome X Morbid obesity with BMI of 40.0-44.9, adult (HCC) 08/29/2013 Renal cyst, left 07/03/2016 18 mm, 06/18/16 Sciatica SI (sacroiliac) joint dysfunction 06/04/2011 Thoracolumbar back pain 07/20/2013 Unspecified hypothyroidism Urinary calculus, unspecified Renal stones PAST SURGICAL HISTORY Procedure Laterality Date CHOLECYSTECTOMY 1991 Cholecystectomy CYSTOSCOPY,DIL BLADDER,LOCAL ANESTH 01/18/14 EGD TRANSORAL BIOPSY SINGLE/MULTIPLE 04/09/2007 gastritis, gastric polyps KIDNEY SURGERY HX 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 Valadez PAST SURGICAL HISTORY OF WISDOM TEETH EXTRACTIONS PAST SURGICAL HISTORY OF 05/2012 bladder hydrodistension X 2 PAST SURGICAL HISTORY OF 2014 pain injection lumbar- multiple PAST SURGICAL HISTORY OF Cyst removed from head ALLERGIES Celebrex [Celecoxib], Erythromycin, Lisinopril, Metformin, Mobic [Meloxicam], Prochlorperazine, Toradol [Ketorolac], and Vesicare [Solifenacin] MEDICATIONS nitrofurantoin monohydrate and macrocrystal (MACROBID) 100 mg capsule Take 1 capsule by mouth two times a day with meals for 5 days. levothyroxine (SYNTHROID) 175 mcg tablet Take 1 tablet by mouth once daily. Take on empty stomach. For Thyroid. albuterol HFA (PROVENTIL HFA) 90 mcg/actuation inhaler Inhale 2 Puffs as instructed every 4 hours as needed for wheezing/shortness of breath. busPIRone (BUSPAR) 15 mg tablet Take 1 tablet by mouth three times a day. sucralfate (CARAFATE) 1 gram tablet Take 1 tablet by mouth four times daily. Before meals and at bedtime ondansetron (ZOFRAN) 8 mg tablet Take 1 tablet by mouth every 8 hours as needed. buPROPion XL (WELLBUTRIN XL) 300 mg 24 hr tablet Take 1 tablet by mouth once daily. cetirizine (ZYRTEC) 10 mg tablet Take 1 tablet by mouth once daily. omeprazole (PRILOSEC) 40 mg capsule Take 1 capsule by mouth once daily. methenam/sod phos/mblue/hyoscy (UROGESIC-BLUE ORAL) Take 1 capsule by mouth once daily. mirabegron (MYRBETRIQ) 50 mg Tb24 Take 1 tablet by mouth once daily. SACCHAROMYCES BOULARDII (PROBIOTIC, S.BOULARDII, ORAL) Take by mouth once daily. FAMILY HISTORY Problem Relation Age of Onset Diabetes Father Hypertension Father Cancer Maternal Grandmother Lymphoma Heart Maternal Grandfather hypertension Hypertension Brother Social History Tobacco Use Smoking status: Never Smokeless tobacco: Never Vaping Use Vaping status: Never Used Substance Use Topics Alcohol use: Yes Comment: rarely Drug use: No BP 169/74 Pulse 97 Temp 36.6 C (97.8 F) Resp 20 Wt 107 kg (235 lb 14.3 oz) LMP 05/09/2018(Approximate) SpO2 97% BMI 41.79 kg/m Review of Systems Constitutional: Negative for chills, fever and malaise/fatigue. HENT: Negative for congestion, ear discharge, ear pain, sinus pain and sore throat. Eyes: Positive for discharge and redness. Negative for blurred vision, double vision, photophobia and pain. Respiratory: Negative for cough, hemoptysis, sputum production, shortness of breath, wheezing and stridor. Cardiovascular: Negative for chest pain. Gastrointestinal: Negative for abdominal pain, diarrhea, nausea and vomiting. Musculoskeletal: Negative for myalgias. Skin: Negative for itching and rash. Neurological: Negative for dizziness and headaches. Objective Physical Exam Constitutional: General: She is not in acute distress. Appearance: She is not diaphoretic. HENT: Head: Normocephalic. Jaw: No trismus, tenderness, swelling or pain on movement. Nose: Congestion present. Mouth/Throat: Mouth: Mucous membranes are moist. Pharynx: Oropharynx is clear. Uvula midline. No pharyngeal swelling, oropharyngeal exudate, posterior oropharyngeal erythema or uvula swelling. Eyes: General: Lids are normal. Lids are everted, no foreign bodies appreciated. Vision grossly intact. Right eye: No foreign body or discharge. Left eye: Discharge present.No foreign body or hordeolum. Conjunctiva/sclera: Conjunctivae normal. Right eye: Right conjunctiva is not injected. No chemosis, exudate or hemorrhage. Left eye: Left conjunctiva is not injected. No chemosis, exudate or hemorrhage. Pupils: Pupils are equal, round, and reactive to light. Comments: Limbus clear. Visual acuity unchanged. Cardiovascular: Rate and Rhythm: Normal rate and regular rhythm. Heart sounds: Normal heart sounds. Pulmonary: Effort: Pulmonary effort is normal. No tachypnea, accessory muscle usage or respiratory distress. Breath sounds: Normal breath sounds. No stridor. No wheezing, rhonchi or rales. Abdominal: General: There is no distension. Palpations: Abdomen is soft. Tenderness: There is no abdominal tenderness. There is no guarding or rebound. Musculoskeletal: Cervical back: Normal range of motion and neck supple. No edema, erythema, rigidity or tenderness. No pain with movement. Normal range of motion. Lymphadenopathy: Cervical: No cervical adenopathy. Skin: General: Skin is warm and dry. Neurological: Mental Status: She is alert and oriented to person, place, and time. ASSESSMENT/PLAN: 1. Bacterial conjunctivitis - ICD9: 372.39, 041.9, ICD10: H10.9 - see medication orders - course and contagiousness issues discussed, including hand washing. - Instructed to call if high fever, development of periorbital redness or swelling, eye pain, visual changes, concerns or if symptoms persist. Patient was educated on supportive therapies. Patient will follow up with primary care provider as needed. Patient was instructed to immediately proceed to emergency room for any new, worsening, or symptoms lasting longer than anticipated. The patient's clinical presentation is otherwise unremarkable at this time. Based on exam and clinical finding, the patient is stable for discharge. Plan of care was discussed with patient. Patient verbalizes understanding and agrees to plan of care. This note was generated using Focus IP software. It may contain errors in wording, punctuation, or spelling. Hang Parker APRN.BUD documented [facility] NoteHNO ID: [id number] Author: BHUPINDER CASTAÑEDA MD Service: ? Author Type: Physician Type: Progress Notes Filed: 03/21/2024 18:38 Note Text: No chief complaint on file. HPI: Patient presents today for office visit for UTI Urology: patient is concerned about urinary symptoms. Duration of symptoms: 3 days Dysuria: Yes. Urinary urgency: Yes. Urinary frequency: Yes. Suprapubic pain: pressure in bladder area. Back pain: No. Fever: low grade last night. Nausea: just a little. Vomiting: No. Sees urology. No hematuria. Checks BP at home and is good there. Seeing Dr Andrade Bp is up. No chest pain or shortness of breath. No edema. Home bp has been ok. Using buspar. Her bp has been up recently but does have white coat syndrome. MEDICATIONS: Current Outpatient Medications Medication Sig levothyroxine (SYNTHROID) 175 mcg tablet Take 1 tablet by mouth once daily. Take on empty stomach. For Thyroid. albuterol HFA (PROVENTIL HFA) 90 mcg/actuation inhaler Inhale 2 Puffs as instructed every 4 hours as needed for wheezing/shortness of breath. busPIRone (BUSPAR) 15 mg tablet Take 1 tablet by mouth three times a day. sucralfate (CARAFATE) 1 gram tablet Take 1 tablet by mouth four times daily. Before meals and at bedtime ondansetron (ZOFRAN) 8 mg tablet Take 1 tablet by mouth every 8 hours as needed. buPROPion XL (WELLBUTRIN XL) 300 mg 24 hr tablet Take 1 tablet by mouth once daily. cetirizine (ZYRTEC) 10 mg tablet Take 1 tablet by mouth once daily. omeprazole (PRILOSEC) 40 mg capsule Take 1 capsule by mouth once daily. methenam/sod phos/mblue/hyoscy (UROGESIC-BLUE ORAL) Take 1 capsule by mouth once daily. mirabegron (MYRBETRIQ) 50 mg Tb24 Take 1 tablet by mouth once daily. SACCHAROMYCES BOULARDII (PROBIOTIC, S.BOULARDII, ORAL) Take by mouth once daily. No current facility-administered medications for this visit. ALLERGIES: ALLERGIES Allergen Reactions Celebrex [Celecoxib] upsets stomach after prolonged use ie. 6 weeks Erythromycin GI Upset Lisinopril Unknown Cough, hypotension Metformin GI Upset Mobic [Meloxicam] Vomiting Prochlorperazine Mental Status Change Agitation, felt ill Toradol [Ketorolac] Vomiting Vesicare [Solifenac* Rash PAST MEDICAL HISTORY Diagnosis Date Acute gastritis without mention of hemorrhage Anxiety Benign neoplasm of stomach Cervical disc disorder with radiculopathy 02/18/2010 Cyst of ovary 01/01/2015 [facility] - see scanned documents Depressive disorder, not elsewhere classified Essential thrombocythemia (HCC) 06/02/2016 GERD (gastroesophageal reflux disease) Hypertension 08/28/11 IC (interstitial cystitis) Impaired fasting glucose 04/02/2010 Lumbar disc disease with radiculopathy 11/15/2010 Metabolic syndrome X Morbid obesity with BMI of 40.0-44.9, adult (HCC) 08/29/2013 Renal cyst, left 07/03/2016 18 mm, 06/18/16 Sciatica SI (sacroiliac) joint dysfunction 06/04/2011 Thoracolumbar back pain 07/20/2013 Unspecified hypothyroidism Urinary calculus, unspecified Renal stones PAST SURGICAL HISTORY Procedure Laterality Date CHOLECYSTECTOMY 1991 Cholecystectomy CYSTOSCOPY,DIL BLADDER,LOCAL ANESTH 01/18/14 EGD TRANSORAL BIOPSY SINGLE/MULTIPLE 04/09/2007 gastritis, gastric polyps KIDNEY SURGERY HX 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 Valadez PAST SURGICAL HISTORY OF WISDOM TEETH EXTRACTIONS PAST SURGICAL HISTORY OF 05/2012 bladder hydrodistension X 2 PAST SURGICAL HISTORY OF 2014 pain injection lumbar- multiple PAST SURGICAL HISTORY OF Cyst removed from head FAMILY HISTORY Problem Relation Age of Onset Diabetes Father Hypertension Father Cancer Maternal Grandmother Lymphoma Heart Maternal Grandfather hypertension Hypertension Brother Social History Tobacco Use Smoking status: Never Smokeless tobacco: Never Vaping Use Vaping status: Never Used Substance Use Topics Alcohol use: Yes Comment: rarely Drug use: No Reviewed current medications, allergies, past medical history, surgical history, family history and social history today. REVIEW OF SYSTEMS All other reviewed and negative other than HPI. VITALS: BP 162/92 Pulse 93 Temp 36.3 ?C (97.3 ?F) (Tympanic) Wt 106.5 kg (234 lb 12.6 oz) LMP 05/09/2018 (Approximate) SpO2 96% BMI 41.59 kg/m? Last 4 Encounter Wt Readings: Date: Wt: 02/25/2024 107.6 kg (237 lb 3.4 oz) 02/23/2024 109.2 kg (240 lb 11.9 oz) 02/04/2024 105.7 kg (233 lb) 01/31/2024 106 kg (233 lb 11 oz) PHYSICAL EXAMINATION: General appearance: Well appearing, alert, in no acute distress, well-hydrated, well nourished. Skin: Skin color, texture, turgor normal, no suspicious rashes or lesions Head: Normocephalic, no masses, lesions, tenderness or abnormalities Back: no cva tenderness. Lungs: Lungs clear to auscultation. No wheezing, rhonchi, rales Heart: RRR without murmur, gallop, or rubs. No ectopy Abdomen: No (more content not included)...[facility]10-28-2024 History of Present illness Narrative* Bhupinder Castañeda MD - 03/21/2024 6:17 PM EDT No chief complaint on file. HPI: Patient presents today for office visit for UTI Urology: patient is concerned about urinary symptoms. Duration of symptoms: 3 days Dysuria: Yes. Urinary urgency: Yes. Urinary frequency: Yes. Suprapubic pain: pressure in bladder area. Back pain: No. Fever: low grade last night. Nausea: just a little. Vomiting: No. Sees urology. No hematuria. Checks BP at home and is good there. Seeing Dr Andrade Bp is up. No chest pain or shortness of breath. No edema. Home bp has been ok. Using buspar. Her bp has been up recently but does have white coat syndrome. MEDICATIONS: Current Outpatient Medications Medication Sig levothyroxine (SYNTHROID) 175 mcg tablet Take 1 tablet by mouth once daily. Take on empty stomach. For Thyroid. albuterol HFA (PROVENTIL HFA) 90 mcg/actuation inhaler Inhale 2 Puffs as instructed every 4 hours as needed for wheezing/shortness of breath. busPIRone (BUSPAR) 15 mg tablet Take 1 tablet by mouth three times a day. sucralfate (CARAFATE) 1 gram tablet Take 1 tablet by mouth four times daily. Before meals and at bedtime ondansetron (ZOFRAN) 8 mg tablet Take 1 tablet by mouth every 8 hours as needed. buPROPion XL (WELLBUTRIN XL) 300 mg 24 hr tablet Take 1 tablet by mouth once daily. cetirizine (ZYRTEC) 10 mg tablet Take 1 tablet by mouth once daily. omeprazole (PRILOSEC) 40 mg capsule Take 1 capsule by mouth once daily. methenam/sod phos/mblue/hyoscy (UROGESIC-BLUE ORAL) Take 1 capsule by mouth once daily. mirabegron (MYRBETRIQ) 50 mg Tb24 Take 1 tablet by mouth once daily. SACCHAROMYCES BOULARDII (PROBIOTIC, S.BOULARDII, ORAL) Take by mouth once daily. No current facility-administered medications for this visit. ALLERGIES: ALLERGIES Allergen Reactions Celebrex [Celecoxib] upsets stomach after prolonged use ie. 6 weeks Erythromycin GI Upset Lisinopril Unknown Cough, hypotension Metformin GI Upset Mobic [Meloxicam] Vomiting Prochlorperazine Mental Status Change Agitation, felt ill Toradol [Ketorolac] Vomiting Vesicare [Solifenac* Rash PAST MEDICAL HISTORY Diagnosis Date Acute gastritis without mention of hemorrhage Anxiety Benign neoplasm of stomach Cervical disc disorder with radiculopathy 02/18/2010 Cyst of ovary 01/01/2015 [facility] - see scanned documents Depressive disorder, not elsewhere classified Essential thrombocythemia (HCC) 06/02/2016 GERD (gastroesophageal reflux disease) Hypertension 08/28/11 IC (interstitial cystitis) Impaired fasting glucose 04/02/2010 Lumbar disc disease with radiculopathy 11/15/2010 Metabolic syndrome X Morbid obesity with BMI of 40.0-44.9, adult (HCC) 08/29/2013 Renal cyst, left 07/03/2016 18 mm, 06/18/16 Sciatica SI (sacroiliac) joint dysfunction 06/04/2011 Thoracolumbar back pain 07/20/2013 Unspecified hypothyroidism Urinary calculus, unspecified Renal stones PAST SURGICAL HISTORY Procedure Laterality Date CHOLECYSTECTOMY 1991 Cholecystectomy CYSTOSCOPY,DIL BLADDER,LOCAL ANESTH 01/18/14 EGD TRANSORAL BIOPSY SINGLE/MULTIPLE 04/09/2007 gastritis, gastric polyps KIDNEY SURGERY HX 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 Valadez PAST SURGICAL HISTORY OF WISDOM TEETH EXTRACTIONS PAST SURGICAL HISTORY OF 05/2012 bladder hydrodistension X 2 PAST SURGICAL HISTORY OF 2014 pain injection lumbar- multiple PAST SURGICAL HISTORY OF Cyst removed from head FAMILY HISTORY Problem Relation Age of Onset Diabetes Father Hypertension Father Cancer Maternal Grandmother Lymphoma Heart Maternal Grandfather hypertension Hypertension Brother Social History Tobacco Use Smoking status: Never Smokeless tobacco: Never Vaping Use Vaping status: Never Used Substance Use Topics Alcohol use: Yes Comment: rarely Drug use: No Reviewed current medications, allergies, past medical history, surgical history, family history andsocial history today. REVIEW OF SYSTEMS All other reviewed and negative other than HPI. VITALS: BP 162/92 Pulse 93 Temp 36.3 C (97.3 F) (Tympanic) Wt 106.5 kg (234 lb 12.6 oz) LMP 05/09/2018 (Approximate) SpO2 96% BMI 41.59 kg/m Last 4 Encounter Wt Readings: Date: Wt: 02/25/2024 107.6 kg (237 lb 3.4 oz) 02/23/2024 109.2 kg (240 lb 11.9 oz) 02/04/2024 105.7 kg (233 lb) 01/31/2024 106 kg (233 lb 11 oz) PHYSICAL EXAMINATION: General appearance: Well appearing, alert, in no acute distress, well-hydrated, well nourished. Skin: Skin color, texture, turgor normal, no suspicious rashes or lesions Head: Normocephalic, no masses, lesions, tenderness or abnormalities Back: no cva tenderness. Lungs: Lungs clear to auscultation. No wheezing, rhonchi, rales Heart: RRR without murmur, gallop, or rubs. No ectopy Abdomen: Normal abdominal exam, Abdomen soft, non-tender. Bowel sounds normal. No masses, organomegaly Extremities: No deformities, edema, skin discoloration, clubbing or cyanosis. Good capillary refill. ASSESSMENT/PLAN: 1. Dysuria - ICD9: 788.1, ICD10: R30.0 (primary diagnosis) acute - UA positive for ella esterase - Send urine for culture - Begin treatment with Macrobid 100 mg BID for 5 days - Patient education for prevention given Discussed risks and benefits of new medication with the patient. Advised them to call if any side effects or questions. Red flags for re-assessment reviewed with patient in detail. Call if symptoms worsen at all or if not better in one to two weeks Reviewed diagnosis and treatment options in detail. Questions were answered. Patient expressed understanding of treatment plan. - UA DIP, URINE (POC) - URINE CULTURE - NITROFURANTOIN MONOHYDRATE & MACROCRYSTAL 100 MG ORAL CAP 2. Renal oncocytoma, left - ICD9: 223.0, ICD10: D30.02 - URINE CULTURE 3. Overactive bladder - ICD9: 596.51, ICD10: N32.81 - URINE CULTURE 4. Essential hypertension, benign - ICD9: 401.1, ICD10: I10 - Home blood pressure readings controlled - Follow up in 4 weeks for validation of cuff and bring in list. Bhupinder Castañeda MD [facility] History of Present illness Narrative* Sue Weber MD - 02/25/2024 10:40 AM EDT Chief Complaint Patient presents with: [place] [facility] HPI Payton Mcqueen is a 58 year old female who presents here today for pink eye. 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 She stated kids have been sick at school with strep and covid. She stated she woke up around 2 AM and her eye was crusty, sore, puffiness of eye, red, itchy, drainage. She used warm compress on the eye and takes allergy medication. She states right eye is worse. She does have some sinus congestion and some fatigue. She took temp because she felt warm, temp 99.6. Past medical history, appointments, medications, allergies reviewed. Previous Medical History PAST MEDICAL HISTORY Diagnosis Date Acute gastritis without mention of hemorrhage Anxiety Benign neoplasm of stomach Cervical disc disorder with radiculopathy 02/18/2010 Cyst of ovary 01/01/2015 [facility] - see scanned documents Depressive disorder, not elsewhere classified Essential thrombocythemia (HCC) 06/02/2016 GERD (gastroesophageal reflux disease) Hypertension 08/28/11 IC (interstitial cystitis) Impaired fasting glucose 04/02/2010 Lumbar disc disease with radiculopathy 11/15/2010 Metabolic syndrome X Morbid obesity with BMI of 40.0-44.9, adult (HCC) 08/29/2013 Renal cyst, left 07/03/2016 18 mm, 06/18/16 Sciatica SI (sacroiliac) joint dysfunction 06/04/2011 Thoracolumbar back pain 07/20/2013 Unspecified hypothyroidism Urinary calculus, unspecified Renal stones Previous Surgical History PAST SURGICAL HISTORY Procedure Laterality Date CHOLECYSTECTOMY 1991 Cholecystectomy CYSTOSCOPY,DIL BLADDER,LOCAL ANESTH 01/18/14 EGD TRANSORAL BIOPSY SINGLE/MULTIPLE 04/09/2007 gastritis, gastric polyps KIDNEY SURGERY HX 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 6 weeks Erythromycin GI Upset Lisinopril Unknown Cough, hypotension Metformin GI Upset Mobic [Meloxicam] Vomiting Prochlorperazine Mental Status Change Agitation, felt ill Toradol [Ketorolac] Vomiting Vesicare [Solifenac* Rash Current Medications Current Outpatient Medications on File Prior to Visit Medication Sig levothyroxine (SYNTHROID) 175 mcg tablet Take 1 tablet by mouth once daily. Take on empty stomach. For Thyroid. albuterol HFA (PROVENTIL HFA) 90 mcg/actuation inhaler Inhale 2 Puffs as instructed every 4 hours as needed for wheezing/shortness of breath. busPIRone (BUSPAR) 15 mg tablet Take 1 tablet by mouth three times a day. sucralfate (CARAFATE) 1 gram tablet Take 1 tablet by mouth four times daily. Before meals and at bedtime ondansetron (ZOFRAN) 8 mg tablet Take 1 tablet by mouth every 8 hours as needed. buPROPion XL (WELLBUTRIN XL) 300 mg 24 hr tablet Take 1 tablet by mouth once daily. cetirizine (ZYRTEC) 10 mg tablet Take 1 tablet by mouth once daily. omeprazole (PRILOSEC) 40 mg capsule Take 1 capsule by mouth once daily. methenam/sod phos/mblue/hyoscy (UROGESIC-BLUE ORAL) Take 1 capsule by mouth once daily. mirabegron (MYRBETRIQ) 50 mg Tb24 Take 1 tablet by mouth once daily. SACCHAROMYCES BOULARDII (PROBIOTIC, S.BOULARDII, ORAL) Take by mouth once daily. No current facility-administered medications on file prior to visit. Social History Social History Tobacco Use Smoking status: Never Smokeless tobacco: Never Vaping Use Vaping status: Never Used Substance Use Topics Alcohol use: Yes Comment: rarely Drug use: No EXAM: BP 140/78 Pulse 74 Resp 18 Wt 107.6 kg (237 lb 3.4 oz) LMP 05/09/2018 (Approximate) BMI 42.02 kg/m General Appearance: Well appearing, alert, in no acute distress, well-hydrated, well nourished. andOverweight. Eyes: bilateral tearing, right upper lid inflamed and swollen Neck: Supple, no adenopathy; thyroid symmetric, normal size. Lungs: Lungs clear to auscultation. No wheezing, rhonchi, rales.. Heart: RRR without murmur, gallop, or rubs. No ectopy. Health Maintenance List Hepatitis B Vaccine(1 of 3 - 19+ 3-dose series) Never done Colorectal Cancer Screening Never done Shingrix Vaccine(1 of 2) Never done BP Controlled (<130/80) due on 10/10/2018 DTaP,Tdap,Td Vaccine(6 - Td or Tdap) due on 12/20/2018 Cervical Cancer Screening due on 04/11/2020 Mammogram Screening due on 01/01/2024 Hepatitis C Screening due on 10/15/2024 HIV Screening due on 10/15/2024 Influenza Vaccine(1) due on 11/21/2024 Covid-19 Vaccine( season) due on 02/22/2025 Annual PCP Team Chronic Disease Visit due on 02/22/2025 Depression Screening due on 02/22/2025 Diabetes Screening due on 02/19/2027 Lipid Screening due on 12/25/2027 HPV Vaccine Aged Out Data reviewed None ASSESSMENT/PLAN: 1. Bacterial conjunctivitis - ICD9: 372.39, 041.9, ICD10: H10.9 (primary diagnosis) - see medication orders - course and contagiousness issues discussed, including hand washing. - Instructed to call if high fever, development of periorbital redness or swelling, eye pain, visual changes, concerns or if symptoms persist. 2. Acute non-recurrent sinusitis, unspecified location - ICD9: 461.9, ICD10: J01.90 - Will begin treatment with Augmentin 875 mg PO BID for 5 days - Supportive care with plenty of fluids, rest, and analgesia prn. Follow up as scheduled. Call if not improving in 3-4 days I agree with the Chief Complaint, ROS, and Past Histories independently gathered by the clinical data support analyst and the remaining scribed note accurately describes my personal service to the patient. Medical Decision Making: Problems: Low: Acute, uncomplicated illness or injury Risk: Moderate: Drug management Medical Decision Making Level: 3 - Low Sue Weber MD The documentation for this note was completed by Andreina Caicedo MA acting as scribe for Sue Weber MD. February 25, 2024 10:41 AM. Andreina Caicedo MA [facility] NoteHNO ID: [id number] Author: SUE WEBER MD Service: ? Author Type: Physician Type: Progress Notes Filed: 02/25/2024 11:07 Note Text: Chief Complaint Patient presents with: [place] [facility] HPI Payton Mcqueen is a 58 year old female who presents here today for pink eye. 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 She stated kids have been sick at school with strep and covid. She stated she woke up around 2 AM and her eye was crusty, sore, puffiness of eye, red, itchy, drainage. She used warm compress on the eye and takes allergy medication. She states right eye is worse. She does have some sinus congestion and some fatigue. She took temp because she felt warm, temp 99.6. Past medical history, appointments, medications, allergies reviewed. Previous Medical History PAST MEDICAL HISTORY Diagnosis Date Acute gastritis without mention of hemorrhage Anxiety Benign neoplasm of stomach Cervical disc disorder with radiculopathy 02/18/2010 Cyst of ovary 01/01/2015 [facility] - see scanned documents Depressive disorder, not elsewhere classified Essential thrombocythemia (HCC) 06/02/2016 GERD (gastroesophageal reflux disease) Hypertension 08/28/11 IC (interstitial cystitis) Impaired fasting glucose 04/02/2010 Lumbar disc disease with radiculopathy 11/15/2010 Metabolic syndrome X Morbid obesity with BMI of 40.0-44.9, adult (HCC) 08/29/2013 Renal cyst, left 07/03/2016 18 mm, 06/18/16 Sciatica SI (sacroiliac) joint dysfunction 06/04/2011 Thoracolumbar back pain 07/20/2013 Unspecified hypothyroidism Urinary calculus, unspecified Renal stones Previous Surgical History PAST SURGICAL HISTORY Procedure Laterality Date CHOLECYSTECTOMY 1991 Cholecystectomy CYSTOSCOPY,DIL BLADDER,LOCAL ANESTH 01/18/14 EGD TRANSORAL BIOPSY SINGLE/MULTIPLE 04/09/2007 gastritis, gastric polyps KIDNEY SURGERY HX 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 6 weeks Erythromycin GI Upset Lisinopril Unknown Cough, hypotension Metformin GI Upset Mobic [Meloxicam] Vomiting Prochlorperazine Mental Status Change Agitation, felt ill Toradol [Ketorolac] Vomiting Vesicare [Solifenac* Rash Current Medications Current Outpatient Medications on File Prior to Visit Medication Sig levothyroxine (SYNTHROID) 175 mcg tablet Take 1 tablet by mouth once daily. Take on empty stomach. For Thyroid. albuterol HFA (PROVENTIL HFA) 90 mcg/actuation inhaler Inhale 2 Puffs as instructed every 4 hours as needed for wheezing/shortness of breath. busPIRone (BUSPAR) 15 mg tablet Take 1 tablet by mouth three times a day. sucralfate (CARAFATE) 1 gram tablet Take 1 tablet by mouth four times daily. Before meals and at bedtime ondansetron (ZOFRAN) 8 mg tablet Take 1 tablet by mouth every 8 hours as needed. buPROPion XL (WELLBUTRIN XL) 300 mg 24 hr tablet Take 1 tablet by mouth once daily. cetirizine (ZYRTEC) 10 mg tablet Take 1 tablet by mouth once daily. omeprazole (PRILOSEC) 40 mg capsule Take 1 capsule by mouth once daily. methenam/sod phos/mblue/hyoscy (UROGESIC-BLUE ORAL) Take 1 capsule by mouth once daily. mirabegron (MYRBETRIQ) 50 mg Tb24 Take 1 tablet by mouth once daily. SACCHAROMYCES BOULARDII (PROBIOTIC, S.BOULARDII, ORAL) Take by mouth once daily. No current facility-administered medications on file prior to visit. Social History Social History Tobacco Use Smoking status: Never Smokeless tobacco: Never Vaping Use Vaping status: Never Used Substance Use Topics Alcohol use: Yes Comment: rarely Drug use: No EXAM: BP 140/78 Pulse 74 Resp 18 Wt 107.6 kg (237 lb 3.4 oz) LMP 05/09/2018 (Approximate) BMI 42.02 kg/m? General Appearance: Well appearing, alert, in no acute distress, well-hydrated, well nourished. and Overweight. Eyes: bilateral tearing, right upper lid inflamed and swollen Neck: Supple, no adenopathy; thyroid symmetric, normal size. Lungs: Lungs clear to auscultation. No wheezing, rhonchi, rales.. Heart: RRR without murmur, gallop, or rubs. No ectopy. Health Maintenance List Hepatitis B Vaccine(1 of 3 - 19+ 3-dose series) Never done Colorectal Cancer Screening Never done Shingrix Vaccine(1 of 2) Never done BP Controlled (<130/80) due on 10/10/2018 DTaP,Tdap,Td Vaccine(6 - Td or Tdap) due on 12/20/2018 C (more content not included)...[facility]10-01-2024 History of Present illness Narrative* Sue Weber MD - 02/23/2024 3:00 PM EDT Chief Complaint Patient presents with: F/U 3 Month HPI Payton Mcqueen is a 58 year old female who presents here today for 3 month follow up. 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 Pt stats that is feeling good, best she has felt for some time. No bowel, Gi, or urinary issues. Taking Carafate 1 gram QID, Prilosec 40 mg daily, and Zofran prn. HTN: The Toprol xl 25 mg daily was d/c, not taking anything for BP. She has been taking the Buspar to 3x a day. She feels this is helping, she feels calmer. Has been checking BP at home with readingsranging from 120/78 to 150/82. No chest pains, dizziness, or SOB. She was in [facility] ER in past for rapid heart rate and was ill with URI. Had EKG here and at ER which were normal. Thyroid: Taking Synthroid 150 mcg daily. No missed dosages. Is back into her normal routine and back to working. She is fatigued but it is a different type of fatigue then she normally has. SHEYLA/Depression: Taking Wellbutrin 300 mg daily and Buspar 15 mg 1 pill TID. Not doing any counseling at this time. Since taking the 3 buspar a day she feels calmer. Has issues chronic URI and complaints of fevers. Past medical history, appointments, medications, allergies reviewed. Previous Medical History PAST MEDICAL HISTORY Diagnosis Date Acute gastritis without mention of hemorrhage Anxiety Benign neoplasm of stomach Cervical disc disorder with radiculopathy 02/18/2010 Cyst of ovary 01/01/2015 [facility] - see scanned documents Depressive disorder, not elsewhere classified Essential thrombocythemia (HCC) 06/02/2016 GERD (gastroesophageal reflux disease) Hypertension 08/28/11 IC (interstitial cystitis) Impaired fasting glucose 04/02/2010 Lumbar disc disease with radiculopathy 11/15/2010 Metabolic syndrome X Morbid obesity with BMI of 40.0-44.9, adult (HCC) 08/29/2013 Renal cyst, left 07/03/2016 18 mm, 06/18/16 Sciatica SI (sacroiliac) joint dysfunction 06/04/2011 Thoracolumbar back pain 07/20/2013 Unspecified hypothyroidism Urinary calculus, unspecified Renal stones Previous Surgical History PAST SURGICAL HISTORY Procedure Laterality Date CHOLECYSTECTOMY 1991 Cholecystectomy CYSTOSCOPY,DIL BLADDER,LOCAL ANESTH 01/18/14 EGD TRANSORAL BIOPSY SINGLE/MULTIPLE 04/09/2007 gastritis, gastric polyps KIDNEY SURGERY HX 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 6 weeks Erythromycin GI Upset Lisinopril Unknown Cough, hypotension Metformin GI Upset Mobic [Meloxicam] Vomiting Prochlorperazine Mental Status Change Agitation, felt ill Toradol [Ketorolac] Vomiting Vesicare [Solifenac* Rash Current Medications Current Outpatient Medications on File Prior to Visit Medication Sig metoprolol succinate ER (TOPROL XL) 25 mg 24 hr tablet Take 1 tablet by mouth once daily. levoFLOXacin (LEVAQUIN) 500 mg tablet Take 1 tablet by mouth once daily for 10 days. albuterol HFA (PROVENTIL HFA) 90 mcg/actuation inhaler Inhale 2 Puffs as instructed every 4 hours as needed for wheezing/shortness of breath. benzonatate (TESSALON PERLE) 100 mg capsule Take 1-2 capsules every 8 hours as needed. busPIRone (BUSPAR) 15 mg tablet Take 1 tablet by mouth three times a day. levothyroxine (SYNTHROID) 150 mcg tablet Take 1 tablet by mouth daily before breakfast. sucralfate (CARAFATE) 1 gram tablet Take 1 tablet by mouth four times daily. Before meals and at bedtime ondansetron (ZOFRAN) 8 mg tablet Take 1 tablet by mouth every 8 hours as needed. buPROPion XL (WELLBUTRIN XL) 300 mg 24 hr tablet Take 1 tablet by mouth once daily. cetirizine (ZYRTEC) 10 mg tablet Take 1 tablet by mouth once daily. omeprazole (PRILOSEC) 40 mg capsule Take 1 capsule by mouth once daily. methenam/sod phos/mblue/hyoscy (UROGESIC-BLUE ORAL) Take 1 capsule by mouth once daily. mirabegron (MYRBETRIQ) 50 mg Tb24 Take 1 tablet by mouth once daily. SACCHAROMYCES BOULARDII (PROBIOTIC, S.BOULARDII, ORAL) Take by mouth once daily. No current facility-administered medications on file prior to visit. Social History Social History Tobacco Use Smoking status: Never Smokeless tobacco: Never Vaping Use Vaping status: Never Used Substance Use Topics Alcohol use: Yes Comment: rarely Drug use: No EXAM: BP 138/88 Pulse 90 Resp 18 Wt 109.2 kg (240 lb 11.9 oz) LMP 05/09/2018 (Approximate) BMI 42.65 kg/m General Appearance: Well appearing, alert, in no acute distress, well-hydrated, well nourished. andObese. Neck: Supple, no adenopathy; thyroid symmetric, normal size. Lungs: Lungs clear to auscultation. No wheezing, rhonchi, rales.. Heart: RRR without murmur, gallop, or rubs. No ectopy. Health Maintenance List Depression Screening Never done Hepatitis B Vaccine(1 of 3 - 19+ 3-dose series) Never done Colorectal Cancer Screening Never done Shingrix Vaccine(1 of 2) Never done BP Controlled (<130/80) due on 10/10/2018 DTaP,Tdap,Td Vaccine(6 - Td or Tdap) due on 12/20/2018 Cervical Cancer Screening due on 04/11/2020 Mammogram Screening due on 01/01/2024 Hepatitis C Screening due on 10/15/2024 HIV Screening due on 10/15/2024 Influenza Vaccine(1) due on 11/21/2024 Covid-19 Vaccine( season) due on 02/22/2025 Annual PCP Team Chronic Disease Visit due on 02/22/2025 Diabetes Screening due on 02/19/2027 Lipid Screening due on 12/25/2027 HPV Vaccine Aged Out Data reviewed Appointment on 02/20/2024 Component Date Value WBC 02/20/2024 25.73 (H) RBC 02/20/2024 6.66 (H) Hemoglobin 02/20/2024 14.9 Hematocrit 02/20/2024 51.5 (H) MCV 02/20/2024 77.3 (L) MCH 02/20/2024 22.4 (L) MCHC 02/20/2024 28.9 (L) RDW-CV 02/20/2024 25.3 (H) Platelet Count 02/20/2024 548 (H) MPV 02/20/2024 10.6 NRBC 02/20/2024 0.0 Absolute nRBC 02/20/2024 <0.01 Neutrophils % 02/20/2024 90.4 Abs Neut (Segs + Bands) 02/20/2024 23.26 (H) Lymphocytes % 02/20/2024 7.0 Abs Lymph (Normal + Reac* 02/20/2024 1.80 Monocytes % 02/20/2024 0.0 Abs [place] 02/20/2024 0.00 Eosin% 02/20/2024 0.9 Abs Eosin 02/20/2024 0.23 Basophils % 02/20/2024 1.7 Abs Baso 02/20/2024 0.44 (H) Platelet Estimate 02/20/2024 Increased Red Cell Morph 02/20/2024 Reviewed: see results of individual morphologies Polychromasia 02/20/2024 Moderate Anisocytosis 02/20/2024 Present Ovalocytes 02/20/2024 Few Diff Type 02/20/2024 Manual Iron 02/20/2024 30 (L) TIBC 02/20/2024 424 (H) Transferrin Saturation 02/20/2024 7.1 (L) Ferritin 02/20/2024 45.9 Vitamin B12 02/20/2024 1,123 Protein, Total 02/20/2024 6.7 Albumin 02/20/2024 4.2 Calcium, Total 02/20/2024 8.6 Bilirubin, Total 02/20/2024 0.7 Alkaline Phosphatase 02/20/2024 185 (H) AST 02/20/2024 35 ALT 02/20/2024 19 Glucose 02/20/2024 93 BUN 02/20/2024 7 Creatinine 02/20/2024 0.76 Sodium 02/20/2024 140 Potassium 02/20/2024 4.5 Chloride 02/20/2024 102 CO2 02/20/2024 25 Anion Gap 02/20/2024 13 Estimated Glomerular Lopez* 02/20/2024 92 TSH 02/20/2024 6.900 (H) Free T4 02/20/2024 1.6 Results Only on 02/15/2024 Component Date Value Ventricular Rate 02/15/2024 90 Atrial Rate 02/15/2024 90 P-R Interval 02/15/2024 168 QRS Duration 02/15/2024 106 QT Interval 02/15/2024 374 QTC Calculation ([place]) 02/15/2024 457 Calculated P [place] 02/15/2024 37 Calculated R [place] 02/15/2024 9 Calculated T [place] 02/15/2024 24 Office Visit on 02/15/2024 Component Date Value Ventricular Rate 02/15/2024 90 Atrial Rate 02/15/2024 90 P-R Interval 02/15/2024 168 QRS Duration 02/15/2024 106 QT Interval 02/15/2024 374 QTC Calculation ([place]) 02/15/2024 457 Calculated P [place] 02/15/2024 37 Calculated R [place] 02/15/2024 9 Calculated T [place] 02/15/2024 24 Office Visit on 02/08/2024 Component Date Value SARS-CoV-2 (Agent of COV* 02/08/2024 Not detected Influenza A RNA 02/08/2024 Not detected Influenza B RNA 02/08/2024 Not detected Respiratory syncytial vi* 02/08/2024 Not detected Office Visit on 01/31/2024 Component Date Value SARS-CoV-2 (Agent of COV* 01/31/2024 Not detected Influenza A RNA 01/31/2024 Not detected Influenza B RNA 01/31/2024 Not detected Respiratory syncytial vi* 01/31/2024 Not detected ASSESSMENT/PLAN: 1. Essential hypertension, benign - ICD9: 401.1, ICD10: I10 (primary diagnosis) - Improving control - Recommend home blood pressure monitoring, to bring results to next visit - Encouraged sodium restriction, DASH or Mediterranean diet - Recommend regular aerobic exercise - Discussed need for and benefit of weight loss. BMI 42.65 kg/(m^2) 2. Screening for depression - ICD9: V79.0, ICD10: Z13.31 Stable Continue current medications. - DEPRESSION SCREENING 3. Screening for colon cancer - ICD9: V76.51, ICD10: Z12.11 Cologuard ordered 4. Hypothyroidism, unspecified type - ICD9: 244.9, ICD10: E03.9 - Instructed patient on importance of taking on an empty stomach either first thing in the morning or at bedtime. - Increase Synthroid dose to 175 mcg Recheck labs in 3 months 5. Generalized anxiety disorder - ICD9: 300.02, ICD10: F41.1 Improving Continue current medications. 6. Adjustment disorder with depressed mood - ICD9: 309.0, ICD10: F43.21 Improving Continue current medications. 7. Gastroesophageal reflux disease without esophagitis - ICD9: 530.81, ICD10: K21.9 - controlled Continue current medications. Follow up in 3 months with thyroid labs prior. I agree with the Chief Complaint, ROS, and Past Histories independently gathered by the clinical data support analyst and the remaining scribed note accurately describes my personal service to the patient. Medical Decision Making: Problems: Moderate: 1+ chronic illnesses with change and 2+ stable chronic illnesses Data: Unique test result(s) reviewed: 3+ Unique test(s) ordered: 2 Risk: Moderate: Drug management Medical Decision Making Level: 4 - Moderate Sue Weber MD The documentation for this note was completed by Andreina Caicedo MA acting as scribe for Sue Weber MD. February 23, 2024 3:02 PM. Andreina Caicedo MA [facility] NoteHNO ID: [id number] Author: SUE WEBER MD Service: ? Author Type: Physician Type: Progress Notes Filed: 02/23/2024 15:21 Note Text: Chief Complaint Patient presents with: F/U 3 Month HPI Payton Mcqueen is a 58 year old female who presents here today for 3 month follow up. 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 Pt stats that is feeling good, best she has felt for some time. No bowel, Gi, or urinary issues. Taking Carafate 1 gram QID, Prilosec 40 mg daily, and Zofran prn. HTN: The Toprol xl 25 mg daily was d/c, not taking anything for BP. She has been taking the Buspar to 3x a day. She feels this is helping, she feels calmer. Has been checking BP at home with readings ranging from 120/78 to 150/82. No chest pains, dizziness, or SOB. She was in [facility] ER in past for rapid heart rate and was ill with URI. Had EKG here and at ER which were normal. Thyroid: Taking Synthroid 150 mcg daily. No missed dosages. Is back into her normal routine and back to working. She is fatigued but it is a different type of fatigue then she normally has. SHEYLA/Depression: Taking Wellbutrin 300 mg daily and Buspar 15 mg 1 pill TID. Not doing any counseling at this time. Since taking the 3 buspar a day she feels calmer. Has issues chronic URI and complaints of fevers. Past medical history, appointments, medications, allergies reviewed. Previous Medical History PAST MEDICAL HISTORY Diagnosis Date Acute gastritis without mention of hemorrhage Anxiety Benign neoplasm of stomach Cervical disc disorder with radiculopathy 02/18/2010 Cyst of ovary 01/01/2015 [facility] - see scanned documents Depressive disorder, not elsewhere classified Essential thrombocythemia (HCC) 06/02/2016 GERD (gastroesophageal reflux disease) Hypertension 08/28/11 IC (interstitial cystitis) Impaired fasting glucose 04/02/2010 Lumbar disc disease with radiculopathy 11/15/2010 Metabolic syndrome X Morbid obesity with BMI of 40.0-44.9, adult ([facility]) 08/29/2013 Renal cyst, left 07/03/2016 18 mm, 06/18/16 Sciatica SI (sacroiliac) joint dysfunction 06/04/2011 Thoracolumbar back pain 07/20/2013 Unspecified hypothyroidism Urinary calculus, unspecified Renal stones Previous Surgical History PAST SURGICAL HISTORY Procedure Laterality Date CHOLECYSTECTOMY 1991 Cholecystectomy CYSTOSCOPY,DIL BLADDER,LOCAL ANESTH 01/18/14 EGD TRANSORAL BIOPSY SINGLE/MULTIPLE 04/09/2007 gastritis, gastric polyps KIDNEY SURGERY HX 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 6 weeks Erythromycin GI Upset Lisinopril Unknown Cough, hypotension Metformin GI Upset Mobic [Meloxicam] Vomiting Prochlorperazine Mental Status Change Agitation, felt ill Toradol [Ketorolac] Vomiting Vesicare [Solifenac* Rash Current Medications Current Outpatient Medications on File Prior to Visit Medication Sig metoprolol succinate ER (TOPROL XL) 25 mg 24 hr tablet Take 1 tablet by mouth once daily. levoFLOXacin (LEVAQUIN) 500 mg tablet Take 1 tablet by mouth once daily for 10 days. albuterol HFA (PROVENTIL HFA) 90 mcg/actuation inhaler Inhale 2 Puffs as instructed every 4 hours as needed for wheezing/shortness of breath. benzonatate (TESSALON PERLE) 100 mg capsule Take 1-2 capsules every 8 hours as needed. busPIRone (BUSPAR) 15 mg tablet Take 1 tablet by mouth three times a day. levothyroxine (SYNTHROID) 150 mcg tablet Take 1 tablet by mouth daily before breakfast. sucralfate (CARAFATE) 1 gram tablet Take 1 tablet by mouth four times daily. Before meals and at bedtime ondansetron (ZOFRAN) 8 mg tablet Take 1 tablet by mouth every 8 hours as needed. buPROPion XL (WELLBUTRIN XL) 300 mg 24 hr tablet Take 1 tablet by mouth once daily. cetirizine (ZYRTEC) 10 mg tablet Take 1 tablet by mouth once daily. omeprazole (PRILOSEC) 40 mg capsule Take 1 capsule by mouth once daily. methenam/sod phos/mblue/hyoscy (UROGESIC-BLUE ORAL) Take 1 capsule by mouth once daily. mirabegron (MYRBETRIQ) 50 mg Tb24 Take 1 tablet by mouth once daily. SACCHAROMYCES BOULARDII (PROBIOTIC, S.BOULARDII, ORAL) Take by mouth once daily. No current facility-administered medications on file prior to visit. Social History Social History Tobacco Use Smoking status: Never Smokeless tobacco: Never Vaping Use Vaping status: Never Used Substance Use Topics Alcohol use (more content not included)...[facility]09-25-2024 Instructions* Patient Instructions* Carly Lewis APRN.CNP - 02/17/2024 3:10 PM EDT Increase the buspar to three times daily. Get labwork done. Recheck next week as planned. [facility] NoteHNO ID: [id number] Author: CARLY LEWIS APRN.CNP Service: ? Author Type: Nurse Practitioner Type: Progress Notes Filed: 02/17/2024 17:13 Note Text: This is a 58 year old female who presents today with: Patient presents with: Recheck: 2 day follow up; did not take metoprolol today HISTORY OF PRESENT ILLNESS: Payton Mcqueen is a 58 year old female. Patient presents with: Recheck: 2 day follow up; did not take metoprolol today Pt presents today for 2 day follow-up. She took the metoprolol on Thursday and Thursday. Refers that she developed abdominal pain and diarrhea after taking the metoprolol. Referred that pharmacist told her it was okay to not take today's dose. Refers that she felt poorly yesterday. She actually went to the ER. She was triaged there and had elevated blood pressure and reportedly normal EKG. She states that there were 9 people in front of her, so she decided to leave without further evaluation. She reports that her heartrate does not feel as racy. Cough is feeling improved. No further chest discomfort. She just feels a little off. She has been taking the buspar twice daily and questions if she should go back to three times daily. Also questions if thyroid could be off. PAST MEDICAL HISTORY: PAST MEDICAL HISTORY Diagnosis Date Acute gastritis without mention of hemorrhage Anxiety Benign neoplasm of stomach Cervical disc disorder with radiculopathy 02/18/2010 Cyst of ovary 01/01/2015 [facility] - see scanned documents Depressive disorder, not elsewhere classified Essential thrombocythemia (HCC) 06/02/2016 GERD (gastroesophageal reflux disease) Hypertension 08/28/11 IC (interstitial cystitis) Impaired fasting glucose 04/02/2010 Lumbar disc disease with radiculopathy 11/15/2010 Metabolic syndrome X Morbid obesity with BMI of 40.0-44.9, adult (HCC) 08/29/2013 Renal cyst, left 07/03/2016 18 mm, 06/18/16 Sciatica SI (sacroiliac) joint dysfunction 06/04/2011 Thoracolumbar back pain 07/20/2013 Unspecified hypothyroidism Urinary calculus, unspecified Renal stones PAST SURGICAL HISTORY Procedure Laterality Date CHOLECYSTECTOMY 1991 Cholecystectomy CYSTOSCOPY,DIL BLADDER,LOCAL ANESTH 01/18/14 EGD TRANSORAL BIOPSY SINGLE/MULTIPLE 04/09/2007 gastritis, gastric polyps KIDNEY SURGERY HX 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 Valadez PAST SURGICAL HISTORY OF WISDOM TEETH EXTRACTIONS PAST SURGICAL HISTORY OF 05/2012 bladder hydrodistension X 2 PAST SURGICAL HISTORY OF 2015 pain injection lumbar- multiple PAST SURGICAL HISTORY OF Cyst removed from head ALLERGIES Celebrex [Celecoxib], Erythromycin, Lisinopril, Metformin, Mobic [Meloxicam], Prochlorperazine, Toradol [Ketorolac], and Vesicare [Solifenacin] MEDICATIONS Current Outpatient Medications Medication Sig metoprolol succinate ER (TOPROL XL) 25 mg 24 hr tablet Take 1 tablet by mouth once daily. levoFLOXacin (LEVAQUIN) 500 mg tablet Take 1 tablet by mouth once daily for 10 days. albuterol HFA (PROVENTIL HFA) 90 mcg/actuation inhaler Inhale 2 Puffs as instructed every 4 hours as needed for wheezing/shortness of breath. benzonatate (TESSALON PERLE) 100 mg capsule Take 1-2 capsules every 8 hours as needed. busPIRone (BUSPAR) 15 mg tablet Take 1 tablet by mouth three times a day. levothyroxine (SYNTHROID) 150 mcg tablet Take 1 tablet by mouth daily before breakfast. sucralfate (CARAFATE) 1 gram tablet Take 1 tablet by mouth four times daily. Before meals and at bedtime ondansetron (ZOFRAN) 8 mg tablet Take 1 tablet by mouth every 8 hours as needed. buPROPion XL (WELLBUTRIN XL) 300 mg 24 hr tablet Take 1 tablet by mouth once daily. cetirizine (ZYRTEC) 10 mg tablet Take 1 tablet by mouth once daily. omeprazole (PRILOSEC) 40 mg capsule Take 1 capsule by mouth once daily. methenam/sod phos/mblue/hyoscy (UROGESIC-BLUE ORAL) Take 1 capsule by mouth once daily. mirabegron (MYRBETRIQ) 50 mg Tb24 Take 1 tablet by mouth once daily. SACCHAROMYCES BOULARDII (PROBIOTIC, S.BOULARDII, ORAL) Take by mouth once daily. No current facility-administered medications for this visit. FAMILY HISTORY Problem Relation Age of Onset Diabetes Father Hypertension Father Cancer Maternal Grandmother Lymphoma Heart Maternal Grandfather hypertension Hypertension Brother Social History Tobacco Use Smoking status: Never Smokeless tobacco: Never Vaping Use Vaping status: Never Used Substance Use Topics Alcohol use: Yes Comment: rarely Drug use: No EXAM: BP 164/90 Pulse 86 Resp 16 LMP 05/09/2018 (Approximate) SpO2 96% 155/85 PHYSICAL EXAM: General Appearance: Well appearing, alert, in no acute distress, well-hydrated, well nourished.. Skin: Skin color, texture, turgor normal, no suspicious rashes or lesions. Head: Normocephalic, no masses, lesions, tenderness or abnormalities. Eyes: Anicteric sclera. Pupils are equally round a (more content not included)...[facility]09-25-2024 History of Present illness Narrative* Carly Lewis APRN.CLERICAL SUPERVISOR - 02/17/2024 2:56 PM EDT This is a 58 year old female who presents today with: Patient presents with: Recheck: 2 day follow up; did not take metoprolol today HISTORY OF PRESENT ILLNESS: Payton Mcqueen is a 58 year old female. Patient presents with: Recheck: 2 day follow up; did not take metoprolol today Pt presents today for 2 day follow-up. She took the metoprolol on Thursday and Thursday. Refers that she developed abdominal pain and diarrhea after taking the metoprolol. Referred that pharmacist told her it was okay to not take today's dose. Refers that she felt poorly yesterday. She actually went to the ER. She was triaged there and had elevated blood pressure and reportedly normal EKG. She states that there were 9 people in front of her, so she decided to leave without further evaluation. She reports that her heartrate does not feel as racy. Cough is feeling improved. No further chest discomfort. She just feels a little off. She has been taking the buspar twice daily and questions if she should go back to three times daily. Also questions if thyroid could be off. PAST MEDICAL HISTORY: PAST MEDICAL HISTORY Diagnosis Date Acute gastritis without mention of hemorrhage Anxiety Benign neoplasm of stomach Cervical disc disorder with radiculopathy 02/18/2010 Cyst of ovary 01/01/2015 [facility] - see scanned documents Depressive disorder, not elsewhere classified Essential thrombocythemia (HCC) 06/02/2016 GERD (gastroesophageal reflux disease) Hypertension 08/28/11 IC (interstitial cystitis) Impaired fasting glucose 04/02/2010 Lumbar disc disease with radiculopathy 11/15/2010 Metabolic syndrome X Morbid obesity with BMI of 40.0-44.9, adult (HCC) 08/29/2013 Renal cyst, left 07/03/2016 18 mm, 06/18/16 Sciatica SI (sacroiliac) joint dysfunction 06/04/2011 Thoracolumbar back pain 07/20/2013 Unspecified hypothyroidism Urinary calculus, unspecified Renal stones PAST SURGICAL HISTORY Procedure Laterality Date CHOLECYSTECTOMY 1991 Cholecystectomy CYSTOSCOPY,DIL BLADDER,LOCAL ANESTH 01/18/14 EGD TRANSORAL BIOPSY SINGLE/MULTIPLE 04/09/2007 gastritis, gastric polyps KIDNEY SURGERY HX 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 Valadez PAST SURGICAL HISTORY OF WISDOM TEETH EXTRACTIONS PAST SURGICAL HISTORY OF 05/2012 bladder hydrodistension X 2 PAST SURGICAL HISTORY OF 2014 pain injection lumbar- multiple PAST SURGICAL HISTORY OF Cyst removed from head ALLERGIES Celebrex [Celecoxib], Erythromycin, Lisinopril, Metformin, Mobic [Meloxicam], Prochlorperazine, Toradol [Ketorolac], and Vesicare [Solifenacin] MEDICATIONS Current Outpatient Medications Medication Sig metoprolol succinate ER (TOPROL XL) 25 mg 24 hr tablet Take 1 tablet by mouth once daily. levoFLOXacin (LEVAQUIN) 500 mg tablet Take 1 tablet by mouth once daily for 10 days. albuterol HFA (PROVENTIL HFA) 90 mcg/actuation inhaler Inhale 2 Puffs as instructed every 4 hours as needed for wheezing/shortness of breath. benzonatate (TESSALON PERLE) 100 mg capsule Take 1-2 capsules every 8 hours as needed. busPIRone (BUSPAR) 15 mg tablet Take 1 tablet by mouth three times a day. levothyroxine (SYNTHROID) 150 mcg tablet Take 1 tablet by mouth daily before breakfast. sucralfate (CARAFATE) 1 gram tablet Take 1 tablet by mouth four times daily. Before meals and at bedtime ondansetron (ZOFRAN) 8 mg tablet Take 1 tablet by mouth every 8 hours as needed. buPROPion XL (WELLBUTRIN XL) 300 mg 24 hr tablet Take 1 tablet by mouth once daily. cetirizine (ZYRTEC) 10 mg tablet Take 1 tablet by mouth once daily. omeprazole (PRILOSEC) 40 mg capsule Take 1 capsule by mouth once daily. methenam/sod phos/mblue/hyoscy (UROGESIC-BLUE ORAL) Take 1 capsule by mouth once daily. mirabegron (MYRBETRIQ) 50 mg Tb24 Take 1 tablet by mouth once daily. SACCHAROMYCES BOULARDII (PROBIOTIC, S.BOULARDII, ORAL) Take by mouth once daily. No current facility-administered medications for this visit. FAMILY HISTORY Problem Relation Age of Onset Diabetes Father Hypertension Father Cancer Maternal Grandmother Lymphoma Heart Maternal Grandfather hypertension Hypertension Brother Social History Tobacco Use Smoking status: Never Smokeless tobacco: Never Vaping Use Vaping status: Never Used Substance Use Topics Alcohol use: Yes Comment: rarely Drug use: No EXAM: BP 164/90 Pulse 86 Resp 16 LMP 05/09/2018 (Approximate) SpO2 96% 155/85 PHYSICAL EXAM: General Appearance: Well appearing, alert, in no acute distress, well-hydrated, well nourished.. Skin: Skin color, texture, turgor normal, no suspicious rashes or lesions. Head: Normocephalic, no masses, lesions, tenderness or abnormalities. Eyes: Anicteric sclera. Pupils are equally round and reactive to light. Extraocular movements are intact. . Lungs: Lungs clear to auscultation. No wheezing, rhonchi, rales.. Heart: RRR without murmur, gallop, or rubs. No ectopy. Neurologic: Gait normal. ASSESSMENT/PLAN: 1. Sinobronchitis - ICD9: 473.9, 490, ICD10: J32.9, J40 (primary diagnosis) Seems to be improving. Continue to monitor. 2. SHEYLA (generalized anxiety disorder) - ICD9: 300.02, ICD10: F41.1 Increase the buspar to three times daily. - THYROID STIMULATING HORMONE - T4 FREE/FREE THYROXINE 3. Essential hypertension, benign - ICD9: 401.1, ICD10: I10 Hx of white coat syndrome. Her BP is a little improved today compared to her last two visits. Will increase the buspar back to three times daily. She will check home BPs. She has an appt next week. If she continues to be HTN or with elevated heart rate, could try addingpropranolol to see if she tolerates better and hopefully helps with BP/palpitations, and anxiety. Discussed treatment plan and patient voices understanding. Patient's questions answered appropriately. Medications and potential side effects were discussed and patient voices understanding. Return to the office as scheduled or as needed for worsening/no improvement. Carly Lewis APRN.CNP documented [facility] encounter[facility] Telephone encounter Note * Telephone Encounter - Carly Lewis APRN.CNP - 02/16/2024 6:11 PM EDT Noted. Carly Lewis APRN.CNP [facility] Miscellaneous Notes* Telephone Encounter - Carly Lewis APRN.CNP - 02/16/2024 6:11 PM EDT Noted. Carly Lewis APRN.CNP * Telephone Encounter - Kavya Godfrey RN - 02/16/2024 2:45 PM EDT Triage Protocol Recommended: Per provider, pt to go to ER if still feeling poorly. Patient reports sx's are improving however still having mild racey heart rate and some shakiness.Pt chooses not to go to ER now. Plans to see provider tomorrow as scheduled. Reason for Disposition [1] Heart beating very rapidly (e.g., > 140 / minute) AND [2] present now (Exception: During exercise.) Answer Assessment - Initial Assessment Questions Patient contacted for further triage of MC message sent to provider today. Patient states her sx's are improving. Heart feels less racey but still a little racey. Less shakey also. Diarrhea has calmed down also. No chest pain or SOB. Does not have batteries for her home BP monitor yet. Plans to get some today and check BP and will call if has BP concerns. 1. DESCRIPTION:as above 2. ONSET: Thursday night 3. DURATION: hours 4. PATTERN: varies, lessening now 5. TAP: (Not completed) 6. HEART RATE: Pt thinks pulse in 80's currently 7. RECURRENT SYMPTOM: no 8. CAUSE: Pt thinks possibly related to thyroid issues combines with recent antibiotic use 9. CARDIAC HISTORY: HTN 10. OTHER SYMPTOMS: Denies dizziness, chest pain, sweating, difficulty breathing Protocols used: Heart Rate and Heartbeat [id number] documented in this encounterMer[facility]09-24-2024 Telephone encounter Note * Telephone Encounter - Kavya Godfrey RN - 02/16/2024 2:45 PM EDT Triage Protocol Recommended: Per provider, pt to go to ER if still feeling poorly. Patient reports sx's are improving however still having mild racey heart rate and some shakiness.Pt chooses not to go to ER now. Plans to see provider tomorrow as scheduled. Reason for Disposition [1] Heart beating very rapidly (e.g., > 140 / minute) AND [2] present now (Exception: During exercise.) Answer Assessment - Initial Assessment Questions Patient contacted for further triage of MC message sent to provider today. Patient states her sx's are improving. Heart feels less racey but still a little racey. Less shakey also. Diarrhea has calmed down also. No chest pain or SOB. Does not have batteries for her home BP monitor yet. Plans to get some today and check BP and will call if has BP concerns. 1. DESCRIPTION:as above 2. ONSET: Thursday night 3. DURATION: hours 4. PATTERN: varies, lessening now 5. TAP: (Not completed) 6. HEART RATE: Pt thinks pulse in 80's currently 7. RECURRENT SYMPTOM: no 8. CAUSE: Pt thinks possibly related to thyroid issues combines with recent antibiotic use 9. CARDIAC HISTORY: HTN 10. OTHER SYMPTOMS: Denies dizziness, chest pain, sweating, difficulty breathing Protocols used: Heart Rate and Heartbeat [id number] [facility]09-24-[facility] Telephone encounter Note* Telephone Encounter - Kavya Godfrey RN - 02/16/2024 2:37 PM EDT See triage encounter 02/16/24. Kavya Godfrey RN [facility] Miscellaneous Notes* Telephone Encounter - Kavya Godfrey RN - 02/16/2024 2:37 PM EDT See triage encounter 02/16/24. Kavya Godfrey RN * Telephone Encounter - Jovi Florian LPN - 02/16/2024 2:18 PM EDT TC to pt, left message to return call to office. MC message also sent to pt as well. Jovi Florian LPN * Telephone Encounter - Carly Lewis APRN.BUD - 02/16/2024 2:04 PM EDT Can we please triage patient? It sounds like she went to the ER, but possibly left before seeing the provider. If so, and if she is still feeling so poorly, I would recommend that she return to the ER for evaluation. * Telephone Encounter - Mavis Shen MA - 02/15/2024 12:29 PM EDT See message, is she taking 0.5 tab of Metoprolol. Just verifying? Mavis Shen MA documented in this encounterMer[facility]09-24-2024 Telephone encounter Note * Telephone Encounter - Jovi Florian LPN - 02/16/2024 2:18 PM EDT TC to pt, left message to return call to office. MC message also sent to pt as well. Jovi Florian LPN [facility]09-24-2024 Telephone encounter Note* Telephone Encounter - Carly Lewis APRN.CNP - 02/16/2024 2:04 PM EDT Can we please triage patient? It sounds like she went to the ER, but possibly left before seeing the provider. If so, and if she is still feeling so poorly, I would recommend that she return to the ER for evaluation. [facility] Telephone encounter Note* Telephone Encounter - Mavis Shen MA - 02/15/2024 12:29 PM EDT See message, is she taking 0.5 tab of Metoprolol. Just verifying? Mavis Shen MA [facility]09-23-2024 Instructions* Patient Instructions* Carly Lewis APRN.CNP - 02/15/2024 8:50 AM EDT Start the metoprolol -- take 1/2 tab daily. Recheck on Thursday. If you have any worsening symptoms -- go to the ER. documented in this encounterMer[facility]09-23-2024 NoteHNO ID: [id number] Author: CARLY LEWIS APRN.CNP Service: ? Author Type: Nurse Practitioner Type: Progress Notes Filed: 02/15/2024 09:12 Note Text: This is a 58 year old female who presents today with: Patient presents with: Recheck: 1 week follow up HISTORY OF PRESENT ILLNESS: Payton Mcqueen is a 58 year old female. Patient presents with: Recheck: 1 week follow up Pt presents today with ongoing URI symptoms. Some chest irritation. Some phlegm. Nauseated. Continues with cough. Fevers are improved. Slept all day yesterday. Stopped the DM medications. + fatigue. Decreased appetite, but is eating. Drinking lot of fluids. Feels like heart rate is up. No SOB. She has a hx of white coat syndrome. She initially had an appt scheduled for today for a recheck of her BP at her last appt. Refers that she previously developed symptomatic hypotension d/t office BP being treated. She is hesitant to treat the blood pressure. + anxiety. PAST MEDICAL HISTORY: PAST MEDICAL HISTORY Diagnosis Date Acute gastritis without mention of hemorrhage Anxiety Benign neoplasm of stomach Cervical disc disorder with radiculopathy 02/18/2010 Cyst of ovary 01/01/2015 [facility] - see scanned documents Depressive disorder, not elsewhere classified Essential thrombocythemia (HCC) 06/02/2016 GERD (gastroesophageal reflux disease) Hypertension 08/28/11 IC (interstitial cystitis) Impaired fasting glucose 04/02/2010 Lumbar disc disease with radiculopathy 11/15/2010 Metabolic syndrome X Morbid obesity with BMI of 40.0-44.9, adult (HCC) 08/29/2013 Renal cyst, left 07/03/2016 18 mm, 06/18/16 Sciatica SI (sacroiliac) joint dysfunction 06/04/2011 Thoracolumbar back pain 07/20/2013 Unspecified hypothyroidism Urinary calculus, unspecified Renal stones PAST SURGICAL HISTORY Procedure Laterality Date CHOLECYSTECTOMY 1991 Cholecystectomy CYSTOSCOPY,DIL BLADDER,LOCAL ANESTH 01/18/14 EGD TRANSORAL BIOPSY SINGLE/MULTIPLE 04/09/2007 gastritis, gastric polyps KIDNEY SURGERY HX 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 Valadez PAST SURGICAL HISTORY OF WISDOM TEETH EXTRACTIONS PAST SURGICAL HISTORY OF 05/2012 bladder hydrodistension X 2 PAST SURGICAL HISTORY OF 2015 pain injection lumbar- multiple PAST SURGICAL HISTORY OF Cyst removed from head ALLERGIES Celebrex [Celecoxib], Erythromycin, Lisinopril, Metformin, Mobic [Meloxicam], Prochlorperazine, Toradol [Ketorolac], and Vesicare [Solifenacin] MEDICATIONS Current Outpatient Medications Medication Sig levoFLOXacin (LEVAQUIN) 500 mg tablet Take 1 tablet by mouth once daily for 10 days. albuterol HFA (PROVENTIL HFA) 90 mcg/actuation inhaler Inhale 2 Puffs as instructed every 4 hours as needed for wheezing/shortness of breath. benzonatate (TESSALON PERLE) 100 mg capsule Take 1-2 capsules every 8 hours as needed. busPIRone (BUSPAR) 15 mg tablet Take 1 tablet by mouth three times a day. levothyroxine (SYNTHROID) 150 mcg tablet Take 1 tablet by mouth daily before breakfast. sucralfate (CARAFATE) 1 gram tablet Take 1 tablet by mouth four times daily. Before meals and at bedtime ondansetron (ZOFRAN) 8 mg tablet Take 1 tablet by mouth every 8 hours as needed. buPROPion XL (WELLBUTRIN XL) 300 mg 24 hr tablet Take 1 tablet by mouth once daily. cetirizine (ZYRTEC) 10 mg tablet Take 1 tablet by mouth once daily. omeprazole (PRILOSEC) 40 mg capsule Take 1 capsule by mouth once daily. methenam/sod phos/mblue/hyoscy (UROGESIC-BLUE ORAL) Take 1 capsule by mouth once daily. mirabegron (MYRBETRIQ) 50 mg Tb24 Take 1 tablet by mouth once daily. SACCHAROMYCES BOULARDII (PROBIOTIC, S.BOULARDII, ORAL) Take by mouth once daily. No current facility-administered medications for this visit. FAMILY HISTORY Problem Relation Age of Onset Diabetes Father Hypertension Father Cancer Maternal Grandmother Lymphoma Heart Maternal Grandfather hypertension Hypertension Brother Social History Tobacco Use Smoking status: Never Smokeless tobacco: Never Vaping Use Vaping status: Never Used Substance Use Topics Alcohol use: Yes Comment: rarely Drug use: No EXAM: BP 184/102 Pulse 91 Resp 16 LMP 05/09/2018 (Approximate) SpO2 93% PHYSICAL EXAM: General Appearance: Well appearing, alert, in no acute distress, well-hydrated, well nourished. Skin: Skin color, texture, turgor normal, no suspicious rashes or lesions. Head: Normocephalic, no masses, lesions, tenderness or abnormalities. Eyes: Anicteric sclera. Pupils are equally round and reactive to light. Extraocular movements are intact. Ears: External ears normal, canals clear, Normal TMs bilaterally. Oropharynx: Lips, mucosa, and tongue normal, teeth and gums normal, oropharynx normal. Neck: Supple, no adenopathy Lungs: Lungs clear to auscultation. No wheezing, rhonchi, rales.. Heart: RRR without murmur, gallop, or rubs. No ec (more content not included)... [facility]09-[facility]24 History of Present illness Narrative* Carly Lewis APRN.CLERICAL SUPERVISOR - 02/15/2024 7:50 AM EDT This is a 58 year old female who presents today with: Patient presents with: Recheck: 1 week follow up HISTORY OF PRESENT ILLNESS: Payton Mcqueen is a 58 year old female. Patient presents with: Recheck: 1 week follow up Pt presents today with ongoing URI symptoms. Some chest irritation. Some phlegm. Nauseated. Continues with cough. Fevers are improved. Slept all day yesterday. Stopped the DM medications. + fatigue. Decreased appetite, but is eating. Drinking lot of fluids. Feels like heart rate is up. No SOB. She has a hx of white coat syndrome. She initially had an appt scheduled for today for a recheck of her BP at her last appt. Refers that she previously developed symptomatic hypotension d/t office BP being treated. She is hesitant to treat the blood pressure. + anxiety. PAST MEDICAL HISTORY: PAST MEDICAL HISTORY Diagnosis Date Acute gastritis without mention of hemorrhage Anxiety Benign neoplasm of stomach Cervical disc disorder with radiculopathy 02/18/2010 Cyst of ovary 01/01/2015 [facility] - see scanned documents Depressive disorder, not elsewhere classified Essential thrombocythemia (HCC) 06/02/2016 GERD (gastroesophageal reflux disease) Hypertension 08/28/11 IC (interstitial cystitis) Impaired fasting glucose 04/02/2010 Lumbar disc disease with radiculopathy 11/15/2010 Metabolic syndrome X Morbid obesity with BMI of 40.0-44.9, adult (HCC) 08/29/2013 Renal cyst, left 07/03/2016 18 mm, 06/18/16 Sciatica SI (sacroiliac) joint dysfunction 06/04/2011 Thoracolumbar back pain 07/20/2013 Unspecified hypothyroidism Urinary calculus, unspecified Renal stones PAST SURGICAL HISTORY Procedure Laterality Date CHOLECYSTECTOMY 1991 Cholecystectomy CYSTOSCOPY,DIL BLADDER,LOCAL ANESTH 01/18/14 EGD TRANSORAL BIOPSY SINGLE/MULTIPLE 04/09/2007 gastritis, gastric polyps KIDNEY SURGERY HX 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 Valadez PAST SURGICAL HISTORY OF WISDOM TEETH EXTRACTIONS PAST SURGICAL HISTORY OF 05/2012 bladder hydrodistension X 2 PAST SURGICAL HISTORY OF 2014 pain injection lumbar- multiple PAST SURGICAL HISTORY OF Cyst removed from head ALLERGIES Celebrex [Celecoxib], Erythromycin, Lisinopril, Metformin, Mobic [Meloxicam], Prochlorperazine, Toradol [Ketorolac], and Vesicare [Solifenacin] MEDICATIONS Current Outpatient Medications Medication Sig levoFLOXacin (LEVAQUIN) 500 mg tablet Take 1 tablet by mouth once daily for 10 days. albuterol HFA (PROVENTIL HFA) 90 mcg/actuation inhaler Inhale 2 Puffs as instructed every 4 hours as needed for wheezing/shortness of breath. benzonatate (TESSALON PERLE) 100 mg capsule Take 1-2 capsules every 8 hours as needed. busPIRone (BUSPAR) 15 mg tablet Take 1 tablet by mouth three times a day. levothyroxine (SYNTHROID) 150 mcg tablet Take 1 tablet by mouth daily before breakfast. sucralfate (CARAFATE) 1 gram tablet Take 1 tablet by mouth four times daily. Before meals and at bedtime ondansetron (ZOFRAN) 8 mg tablet Take 1 tablet by mouth every 8 hours as needed. buPROPion XL (WELLBUTRIN XL) 300 mg 24 hr tablet Take 1 tablet by mouth once daily. cetirizine (ZYRTEC) 10 mg tablet Take 1 tablet by mouth once daily. omeprazole (PRILOSEC) 40 mg capsule Take 1 capsule by mouth once daily. methenam/sod phos/mblue/hyoscy (UROGESIC-BLUE ORAL) Take 1 capsule by mouth once daily. mirabegron (MYRBETRIQ) 50 mg Tb24 Take 1 tablet by mouth once daily. SACCHAROMYCES BOULARDII (PROBIOTIC, S.BOULARDII, ORAL) Take by mouth once daily. No current facility-administered medications for this visit. FAMILY HISTORY Problem Relation Age of Onset Diabetes Father Hypertension Father Cancer Maternal Grandmother Lymphoma Heart Maternal Grandfather hypertension Hypertension Brother Social History Tobacco Use Smoking status: Never Smokeless tobacco: Never Vaping Use Vaping status: Never Used Substance Use Topics Alcohol use: Yes Comment: rarely Drug use: No EXAM: BP 184/102 Pulse 91 Resp 16 LMP 05/09/2018 (Approximate) SpO2 93% PHYSICAL EXAM: General Appearance: Well appearing, alert, in no acute distress, well-hydrated, well nourished. Skin: Skin color, texture, turgor normal, no suspicious rashes or lesions. Head: Normocephalic, no masses, lesions, tenderness or abnormalities. Eyes: Anicteric sclera. Pupils are equally round and reactive to light. Extraocular movements are intact. Ears: External ears normal, canals clear, Normal TMs bilaterally. Oropharynx: Lips, mucosa, and tongue normal, teeth and gums normal, oropharynx normal. Neck: Supple, no adenopathy Lungs: Lungs clear to auscultation. No wheezing, rhonchi, rales.. Heart: RRR without murmur, gallop, or rubs. No ectopy. Extremities: No deformities, edema, skin discoloration, clubbing or cyanosis. Good capillary refill. Neurologic: Gait normal. ASSESSMENT/PLAN: 1. Essential hypertension, benign - ICD9: 401.1, ICD10: I10 (primary diagnosis) - Uncontrolled - Factors affecting control: suspected white coat hypertension - Start metoprolol succinate She is hesitant and d/t hx of white coat syndrome -- will start metoprolol 12.5 mg daily and recheck on Thursday. Hopefull this will help w/ anxiety, as well. - METOPROLOL SUCCINATE ER 25 MG TABLET,EXTENDED RELEASE 24 HR 2. Sinobronchitis - ICD9: 473.9, 490, ICD10: J32.9, J40 Continue treatment. 3. Chest heaviness - ICD9: 786.59, ICD10: R07.[address] changes. Single PVC. Describes as irritation from cough. No SOB. - ECG COMPLETE 4. SHEYLA (generalized anxiety disorder) - ICD9: 300.02, ICD10: F41.1 Continue buspar. Start metoprolol. Discussed treatment plan and patient voices understanding. Patient's questions answered appropriately. Medications and potential side effects were discussed and patient voices understanding. Return to the office as scheduled or as needed for worsening/no improvement. Carly Lewis APRN.CLERICAL SUPERVISOR documented [facility] this [facility] History of Present illness Narrative* Geoff Norman RT(R) - 02/09/2024 2:40 PM EDT Radiology Service Progress Note PATIENT NAME: Payton Mcqueen DATE OF SERVICE: February 09, 2024 TIME: 3:05 PM PATIENT IDENTITY VERIFICATION COMPLETED USING TWO (2) IDENTIFIERS: Name and Date of confirmedby patient verbally. FALL SCREENING: Has the patient had 2 falls in the last year or 1 fall with injury or currently using an Ambulatory Assistive Device (Walker, Cane, Wheelchair, Crutches, etc.)? No PATIENT GENDER DATA: Female. status: : No status: NO. PATIENT RELEVANT IMPLANT DATA REVIEWED: Yes PATIENT PRESENTS WITH AN IMPLANTABLE OR ATTACHED CONFECTIONERY DROPS MACHINE OPERATOR: No RADIOLOGY DEPARTMENT: General X-ray: Exam(s) Completed: Chest X-Ray PERIPHERAL IV DATA: Not applicable SIGNED BY: KENDALL Dupree) February 09, 2024 3:05 PM documented in this encounterMer[facility]09-17-2024 NoteHNO ID: [id number] Author: GEOFF NORMAN RT(R) Service: Radiology Author Type: Technologist Type: Progress Notes Filed: 02/09/2024 15:09 Note Text: Radiology Service Progress Note PATIENT NAME: Payton Mcqueen DATE OF SERVICE: February 09, 2024 TIME: 3:05 PM PATIENT IDENTITY VERIFICATION COMPLETED USING TWO (2) IDENTIFIERS: Name and Date of confirmed by patient verbally. FALL SCREENING: Has the patient had 2 falls in the last year or 1 fall with injury or currently using an Ambulatory Assistive Device (Walker, Cane, Wheelchair, Crutches, etc.)? No PATIENT GENDER DATA: Female. status: : No status: NO. PATIENT RELEVANT IMPLANT DATA REVIEWED: Yes PATIENT PRESENTS WITH AN IMPLANTABLE OR ATTACHED CONFECTIONERY DROPS MACHINE OPERATOR: No RADIOLOGY DEPARTMENT: General X-ray: Exam(s) Completed: Chest X-Ray PERIPHERAL IV DATA: Not applicable SIGNED BY: Geoff Norman RT(R) February 09, 2024 3:05 [facility]09-16-2024 Instructions* Patient Instructions* Carly Lewis APRN.CNP - 02/08/2024 7:27 PM EDT No more D cold medications. Start the levoquin. You can use the diflucan after finishing the levaquin. Recheck in 1 week to recheck BP. Also check daily at home. documented in this encounterMer[facility]09-16-2024 NoteHNO ID: [id number] Author: CARLY LEWIS APRN.BUD Service: ? Author Type: Nurse Practitioner Type: Progress Notes Filed: 02/08/2024 19:39 Note Text: This is a 58 year old female who presents today with: Patient presents with: Recheck: Follow up- URI HISTORY OF PRESENT ILLNESS: Payton Mcqueen is a 58 year old female. Patient presents with: Recheck: Follow up- URI Pt presents today with complaint of ongoing URI symptoms. She inially did a virtual visit on 01/30/2024 and treated for viral infection. She went to urgent care on 01/31/2024 and was started on doxycycline. Her symptoms persisted, so she was seen by primary care on 02/04/2024 and changed to Ceftin. She continues with fevers, cough, and congestion. + nausea. No diarrhea. She reports that every since she has had COVID, when she gets sick she has a prolonged recovery. She is using ownf-yoc-twqalig cold medication and used a D medication today She also has been having issues with yeast again and [facility] and being treated with fluconazole. PAST MEDICAL HISTORY: PAST MEDICAL HISTORY Diagnosis Date Acute gastritis without mention of hemorrhage Anxiety Benign neoplasm of stomach Cervical disc disorder with radiculopathy 02/18/2010 Cyst of ovary 01/01/2015 [facility] - see scanned documents Depressive disorder, not elsewhere classified Essential thrombocythemia (HCC) 06/02/2016 GERD (gastroesophageal reflux disease) Hypertension 08/28/11 IC (interstitial cystitis) Impaired fasting glucose 04/02/2010 Lumbar disc disease with radiculopathy 11/15/2010 Metabolic syndrome X Morbid obesity with BMI of 40.0-44.9, adult (HCC) 08/29/2013 Renal cyst, left 07/03/2016 18 mm, 06/18/16 Sciatica SI (sacroiliac) joint dysfunction 06/04/2011 Thoracolumbar back pain 07/20/2013 Unspecified hypothyroidism Urinary calculus, unspecified Renal stones PAST SURGICAL HISTORY Procedure Laterality Date CHOLECYSTECTOMY 1991 Cholecystectomy CYSTOSCOPY,DIL BLADDER,LOCAL ANESTH 01/18/14 EGD TRANSORAL BIOPSY SINGLE/MULTIPLE 04/09/2007 gastritis, gastric polyps KIDNEY SURGERY HX 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 Valadez PAST SURGICAL HISTORY OF WISDOM TEETH EXTRACTIONS PAST SURGICAL HISTORY OF 05/2012 bladder hydrodistension X 2 PAST SURGICAL HISTORY OF 2015 pain injection lumbar- multiple PAST SURGICAL HISTORY OF Cyst removed from head ALLERGIES Celebrex [Celecoxib], Erythromycin, Lisinopril, Metformin, Mobic [Meloxicam], Prochlorperazine, Toradol [Ketorolac], and Vesicare [Solifenacin] MEDICATIONS Current Outpatient Medications Medication Sig cefUROXime (CEFTIN) 500 mg tablet Take 1 tablet by mouth two times a day for 5 days. ipratropium bromide (ATROVENT) 42 mcg (0.06 %) nasal spray Use 1 Rentz in each nostril three times a day for 14 days. albuterol HFA (PROVENTIL HFA) 90 mcg/actuation inhaler Inhale 2 Puffs as instructed every 4 hours as needed for wheezing/shortness of breath. benzonatate (TESSALON PERLE) 100 mg capsule Take 1-2 capsules every 8 hours as needed. busPIRone (BUSPAR) 15 mg tablet Take 1 tablet by mouth three times a day. levothyroxine (SYNTHROID) 150 mcg tablet Take 1 tablet by mouth daily before breakfast. sucralfate (CARAFATE) 1 gram tablet Take 1 tablet by mouth four times daily. Before meals and at bedtime ondansetron (ZOFRAN) 8 mg tablet Take 1 tablet by mouth every 8 hours as needed. buPROPion XL (WELLBUTRIN XL) 300 mg 24 hr tablet Take 1 tablet by mouth once daily. cetirizine (ZYRTEC) 10 mg tablet Take 1 tablet by mouth once daily. omeprazole (PRILOSEC) 40 mg capsule Take 1 capsule by mouth once daily. methenam/sod phos/mblue/hyoscy (UROGESIC-BLUE ORAL) Take 1 capsule by mouth once daily. mirabegron (MYRBETRIQ) 50 mg Tb24 Take 1 tablet by mouth once daily. SACCHAROMYCES BOULARDII (PROBIOTIC, S.BOULARDII, ORAL) Take by mouth once daily. No current facility-administered medications for this visit. FAMILY HISTORY Problem Relation Age of Onset Diabetes Father Hypertension Father Cancer Maternal Grandmother Lymphoma Heart Maternal Grandfather hypertension Hypertension Brother Social History Tobacco Use Smoking status: Never Smokeless tobacco: Never Vaping Use Vaping status: Never Used Substance Use Topics Alcohol use: Yes Comment: rarely Drug use: No EXAM: BP 180/100 Pulse 95 Temp 37.9 ?C (100.2 ?F) Resp 16 LMP 05/09/2018 (Approximate) SpO2 95% PHYSICAL EXAM: General Appearance: Well appearing, alert, in no acute distress, well-hydrated, well nourished.. Skin: Skin color, texture, turgor normal, no suspicious rashes or lesions. Head: Normocephalic, no masses, lesions, tenderness or abnormalities. Eyes: Anicteric sclera. Pupils are equally round and reactive to light. Extraocular movements are intact. . Ears: External ears normal, canals clear, Positive findings: R TM: air/fluid (more content not included)...[facility]09-16-[facility] History of Present illness Narrative* Carly Lewis APRN.[facility] - 02/08/2024 6:53 PM EDT This is a 58 year old female who presents today with: Patient presents with: Recheck: Follow up- URI HISTORY OF PRESENT ILLNESS: Payton Mcqueen is a 58 year old female. Patient presents with: Recheck: Follow up- URI Pt presents today with complaint of ongoing URI symptoms. She inially did a virtual visit on 01/30/2024 and treated for viral infection. She went to urgent care on 01/31/2024 and was started on doxycycline. Her symptoms persisted, so she was seen by primary care on 02/04/2024 and changed to Ceftin. She continues with fevers, cough, and congestion. + nausea. No diarrhea. She reports that every since she has had COVID, when she gets sick she has a prolonged recovery. She is using bfgu-vwi-puiifbp cold medication and used a D medication today She also has been having issues with yeast again and [facility] and being treated with fluconazole. PAST MEDICAL HISTORY: PAST MEDICAL HISTORY Diagnosis Date Acute gastritis without mention of hemorrhage Anxiety Benign neoplasm of stomach Cervical disc disorder with radiculopathy 02/18/2010 Cyst of ovary 01/01/2015 [facility] - see scanned documents Depressive disorder, not elsewhere classified Essential thrombocythemia (HCC) 06/02/2016 GERD (gastroesophageal reflux disease) Hypertension 08/28/11 IC (interstitial cystitis) Impaired fasting glucose 04/02/2010 Lumbar disc disease with radiculopathy 11/15/2010 Metabolic syndrome X Morbid obesity with BMI of 40.0-44.9, adult ([facility]) 08/29/2013 Renal cyst, left 07/03/2016 18 mm, 06/18/16 Sciatica SI (sacroiliac) joint dysfunction 06/04/2011 Thoracolumbar back pain 07/20/2013 Unspecified hypothyroidism Urinary calculus, unspecified Renal stones PAST SURGICAL HISTORY Procedure Laterality Date CHOLECYSTECTOMY 1991 Cholecystectomy CYSTOSCOPY,DIL BLADDER,LOCAL ANESTH 01/18/14 EGD TRANSORAL BIOPSY SINGLE/MULTIPLE 04/09/2007 gastritis, gastric polyps KIDNEY SURGERY HX 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 Valadez PAST SURGICAL HISTORY OF WISDOM TEETH EXTRACTIONS PAST SURGICAL HISTORY OF 05/2012 bladder hydrodistension X 2 PAST SURGICAL HISTORY OF 2014 pain injection lumbar- multiple PAST SURGICAL HISTORY OF Cyst removed from head ALLERGIES Celebrex [Celecoxib], Erythromycin, Lisinopril, Metformin, Mobic [Meloxicam], Prochlorperazine, Toradol [Ketorolac], and Vesicare [Solifenacin] MEDICATIONS Current Outpatient Medications Medication Sig cefUROXime (CEFTIN) 500 mg tablet Take 1 tablet by mouth two times a day for 5 days. ipratropium bromide (ATROVENT) 42 mcg (0.06 %) nasal spray Use 1 Rentz in each nostril three times a day for 14 days. albuterol HFA (PROVENTIL HFA) 90 mcg/actuation inhaler Inhale 2 Puffs as instructed every 4 hours as needed for wheezing/shortness of breath. benzonatate (TESSALON PERLE) 100 mg capsule Take 1-2 capsules every 8 hours as needed. busPIRone (BUSPAR) 15 mg tablet Take 1 tablet by mouth three times a day. levothyroxine (SYNTHROID) 150 mcg tablet Take 1 tablet by mouth daily before breakfast. sucralfate (CARAFATE) 1 gram tablet Take 1 tablet by mouth four times daily. Before meals and at bedtime ondansetron (ZOFRAN) 8 mg tablet Take 1 tablet by mouth every 8 hours as needed. buPROPion XL (WELLBUTRIN XL) 300 mg 24 hr tablet Take 1 tablet by mouth once daily. cetirizine (ZYRTEC) 10 mg tablet Take 1 tablet by mouth once daily. omeprazole (PRILOSEC) 40 mg capsule Take 1 capsule by mouth once daily. methenam/sod phos/mblue/hyoscy (UROGESIC-BLUE ORAL) Take 1 capsule by mouth once daily. mirabegron (MYRBETRIQ) 50 mg Tb24 Take 1 tablet by mouth once daily. SACCHAROMYCES BOULARDII (PROBIOTIC, S.BOULARDII, ORAL) Take by mouth once daily. No current facility-administered medications for this visit. FAMILY HISTORY Problem Relation Age of Onset Diabetes Father Hypertension Father Cancer Maternal Grandmother Lymphoma Heart Maternal Grandfather hypertension Hypertension Brother Social History Tobacco Use Smoking status: Never Smokeless tobacco: Never Vaping Use Vaping status: Never Used Substance Use Topics Alcohol use: Yes Comment: rarely Drug use: No EXAM: BP 180/100 Pulse 95 Temp 37.9 C (100.2 F) Resp 16 LMP 05/09/2018 (Approximate) SpO2 95% PHYSICAL EXAM: General Appearance: Well appearing, alert, in no acute distress, well-hydrated, well nourished.. Skin: Skin color, texture, turgor normal, no suspicious rashes or lesions. Head: Normocephalic, no masses, lesions, tenderness or abnormalities. Eyes: Anicteric sclera. Pupils are equally round and reactive to light. Extraocular movements are intact. . Ears: External ears normal, canals clear, Positive findings: R TM: air/fluid interface visualized, L TM: air/fluid interface visualized. Oropharynx: Lips, mucosa, and tongue normal, teeth and gums normal, oropharynx normal. Neck: Supple, no adenopathy Lungs: Lungs clear to auscultation. No wheezing, rhonchi, rales. Congested cough. Heart: RRR without murmur, gallop, or rubs. No ectopy. ASSESSMENT/PLAN: 1. Sinobronchitis - ICD9: 473.9, 490, ICD10: J32.9, J40 (primary diagnosis) - Will begin treatment with Levaquin - The patient should also be given plain mucinex for the first 5-7 days of treatment. - Supportive care with plenty of fluids, rest, and analgesia prn. - Follow up in 3-5 days if symptoms persist or worsen. - COVID & INFLUENZA A/B & RSV PCR, ROUTINE - XR CHEST 2V FRONTAL/LAT - LEVOFLOXACIN 500 MG TABLET Will go ahead and repeat COVID, flu, RSV testing. Will also get chest x-ray to rule out pneumonia due to ongoing fevers. Work note provided. 2. Elevated blood pressure reading without diagnosis of hypertension - ICD9: 796.2, ICD10: R03.0 Reports home blood pressures have been running in the 140s. Will bring patient back in a week to recheck blood pressure. She did also take cold medicine prior to her appointment today. Advise no more cold medicines with D. - Recommend home blood pressure monitoring, to bring results in on next visit 3. Cutaneous candidiasis - ICD9: 112.3, ICD10: B37.2 Encouraged to use topicals if needed until after she finishes the levoquin. - FLUCONAZOLE 150 MG TABLET Discussed treatment plan and patient voices understanding. Patient's questions answered appropriately. Medications and potential side effects were discussed and patient voices understanding. Return to the office as scheduled or as needed for worsening/no improvement. Carly Lewis APRN.BUD documented in this encounterMer[facility]09-[facility]24 NoteHNO ID: [id number] Author: CORINNA TOUSSAINT APRN.BUD Service: ? Author Type: Nurse Practitioner Type: Progress Notes Filed: 02/04/2024 17:18 Note Text: Chief Complaint Patient presents with: Follow Up HPI Payton Mcqueen is a 58 year old female who presents here today for Above Complaints.. Patient presents for follow up. Patient was seen in 01/30 for cough and nasal congestion and started on doxycycline. Patient reports minimal improvement and has one day left of doxycycline. Past medical history, appointments, medications, allergies reviewed. Previous Medical History PAST MEDICAL HISTORY Diagnosis Date Acute gastritis without mention of hemorrhage Anxiety Benign neoplasm of stomach Cervical disc disorder with radiculopathy 02/18/2010 Cyst of ovary 01/01/2015 [facility] - see scanned documents Depressive disorder, not elsewhere classified Essential thrombocythemia (HCC) 06/02/2016 GERD (gastroesophageal reflux disease) Hypertension 08/28/11 IC (interstitial cystitis) Impaired fasting glucose 04/02/2010 Lumbar disc disease with radiculopathy 11/15/2010 Metabolic syndrome X Morbid obesity with BMI of 40.0-44.9, adult ([facility]) 08/29/2013 Renal cyst, left 07/03/2016 18 mm, 06/18/16 Sciatica SI (sacroiliac) joint dysfunction 06/04/2011 Thoracolumbar back pain 07/20/2013 Unspecified hypothyroidism Urinary calculus, unspecified Renal stones Previous Surgical History PAST SURGICAL HISTORY Procedure Laterality Date CHOLECYSTECTOMY 1991 Cholecystectomy CYSTOSCOPY,DIL BLADDER,LOCAL ANESTH 01/18/14 EGD TRANSORAL BIOPSY SINGLE/MULTIPLE 04/09/2007 gastritis, gastric polyps KIDNEY SURGERY HX 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 6 weeks Erythromycin GI Upset Lisinopril Unknown Cough, hypotension Metformin GI Upset Mobic [Meloxicam] Vomiting Prochlorperazine Mental Status Change Agitation, felt ill Toradol [Ketorolac] Vomiting Vesicare [Solifenac* Rash Current Medications Current Outpatient Medications on File Prior to Visit Medication Sig doxycycline monohydrate 100 mg tablet Take 1 tablet by mouth two times a day for 7 days. ipratropium bromide (ATROVENT) 42 mcg (0.06 %) nasal spray Use 1 Rentz in each nostril three times a day for 14 days. guaiFENesin (MUCINEX) 1,200 mg Ta12 Take 1 tablet by mouth two times a day for 7 days. albuterol HFA (PROVENTIL HFA) 90 mcg/actuation inhaler Inhale 2 Puffs as instructed every 4 hours as needed for wheezing/shortness of breath. benzonatate (TESSALON PERLE) 100 mg capsule Take 1-2 capsules every 8 hours as needed. busPIRone (BUSPAR) 15 mg tablet Take 1 tablet by mouth three times a day. levothyroxine (SYNTHROID) 150 mcg tablet Take 1 tablet by mouth daily before breakfast. sucralfate (CARAFATE) 1 gram tablet Take 1 tablet by mouth four times daily. Before meals and at bedtime ondansetron (ZOFRAN) 8 mg tablet Take 1 tablet by mouth every 8 hours as needed. buPROPion XL (WELLBUTRIN XL) 300 mg 24 hr tablet Take 1 tablet by mouth once daily. cetirizine (ZYRTEC) 10 mg tablet Take 1 tablet by mouth once daily. omeprazole (PRILOSEC) 40 mg capsule Take 1 capsule by mouth once daily. methenam/sod phos/mblue/hyoscy (UROGESIC-BLUE ORAL) Take 1 capsule by mouth once daily. mirabegron (MYRBETRIQ) 50 mg Tb24 Take 1 tablet by mouth once daily. SACCHAROMYCES BOULARDII (PROBIOTIC, S.BOULARDII, ORAL) Take by mouth once daily. No current facility-administered medications on file prior to visit. Social History Social History Tobacco Use Smoking status: Never Smokeless tobacco: Never Vaping Use Vaping status: Never Used Substance Use Topics Alcohol use: Yes Comment: rarely Drug use: No Review of Symptoms REVIEW OF SYSTEMS SEE HPI EXAM: BP 157/81 Pulse 88 Temp 36.4 ?C (97.6 ?F) Resp 14 Wt 105.7 kg (233 lb) LMP 05/09/2018 (Approximate) BMI 41.27 kg/m? General Appearance: Well appearing, alert, in no acute distress, well-hydrated, well nourished.. Nose/Sinuses: Positive findings: mucosa erythematous and swollen, purulent rhinorrhea. Lungs: Lungs clear to auscultation. No wheezing, rhonchi, rales.. Heart: RRR without murmur, gallop, or rubs. No ectopy. Health Maintenance List Depression Screening Never done Hepatitis B Vaccine(1 of 3 - 19+ 3-dose series) Never done Colorectal Cancer Screening Ne (more content not included)...[facility]09-12-2024 History of Present illness Narrative* Corinna Toussaint, LEIGH.CLERICAL SUPERVISOR - 02/04/2024 5:03 PM EDT Chief Complaint Patient presents with: Follow Up HPI Payton Mcqueen is a 58 year old female who presents here today for Above Complaints.. Patient presents for follow up. Patient was seen in [facility] 01/30 for cough and nasal congestion and started on doxycycline. Patient reports minimal improvement and has one day left of doxycycline. Past medical history, appointments, medications, allergies reviewed. Previous Medical History PAST MEDICAL HISTORY Diagnosis Date Acute gastritis without mention of hemorrhage Anxiety Benign neoplasm of stomach Cervical disc disorder with radiculopathy 02/18/2010 Cyst of ovary 01/01/2015 [facility] - see scanned documents Depressive disorder, not elsewhere classified Essential thrombocythemia (HCC) 06/02/2016 GERD (gastroesophageal reflux disease) Hypertension 08/28/11 IC (interstitial cystitis) Impaired fasting glucose 04/02/2010 Lumbar disc disease with radiculopathy 11/15/2010 Metabolic syndrome X Morbid obesity with BMI of 40.0-44.9, adult (HCC) 08/29/2013 Renal cyst, left 07/03/2016 18 mm, 06/18/16 Sciatica SI (sacroiliac) joint dysfunction 06/04/2011 Thoracolumbar back pain 07/20/2013 Unspecified hypothyroidism Urinary calculus, unspecified Renal stones Previous Surgical History PAST SURGICAL HISTORY Procedure Laterality Date CHOLECYSTECTOMY 1991 Cholecystectomy CYSTOSCOPY,DIL BLADDER,LOCAL ANESTH 01/18/14 EGD TRANSORAL BIOPSY SINGLE/MULTIPLE 04/09/2007 gastritis, gastric polyps KIDNEY SURGERY HX 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 6 weeks Erythromycin GI Upset Lisinopril Unknown Cough, hypotension Metformin GI Upset Mobic [Meloxicam] Vomiting Prochlorperazine Mental Status Change Agitation, felt ill Toradol [Ketorolac] Vomiting Vesicare [Solifenac* Rash Current Medications Current Outpatient Medications on File Prior to Visit Medication Sig doxycycline monohydrate 100 mg tablet Take 1 tablet by mouth two times a day for 7 days. ipratropium bromide (ATROVENT) 42 mcg (0.06 %) nasal spray Use 1 Rentz in each nostril three times a day for 14 days. guaiFENesin (MUCINEX) 1,200 mg Ta12 Take 1 tablet by mouth two times a day for 7 days. albuterol HFA (PROVENTIL HFA) 90 mcg/actuation inhaler Inhale 2 Puffs as instructed every 4 hours as needed for wheezing/shortness of breath. benzonatate (TESSALON PERLE) 100 mg capsule Take 1-2 capsules every 8 hours as needed. busPIRone (BUSPAR) 15 mg tablet Take 1 tablet by mouth three times a day. levothyroxine (SYNTHROID) 150 mcg tablet Take 1 tablet by mouth daily before breakfast. sucralfate (CARAFATE) 1 gram tablet Take 1 tablet by mouth four times daily. Before meals and at bedtime ondansetron (ZOFRAN) 8 mg tablet Take 1 tablet by mouth every 8 hours as needed. buPROPion XL (WELLBUTRIN XL) 300 mg 24 hr tablet Take 1 tablet by mouth once daily. cetirizine (ZYRTEC) 10 mg tablet Take 1 tablet by mouth once daily. omeprazole (PRILOSEC) 40 mg capsule Take 1 capsule by mouth once daily. methenam/sod phos/mblue/hyoscy (UROGESIC-BLUE ORAL) Take 1 capsule by mouth once daily. mirabegron (MYRBETRIQ) 50 mg Tb24 Take 1 tablet by mouth once daily. SACCHAROMYCES BOULARDII (PROBIOTIC, S.BOULARDII, ORAL) Take by mouth once daily. No current facility-administered medications on file prior to visit. Social History Social History Tobacco Use Smoking status: Never Smokeless tobacco: Never Vaping Use Vaping status: Never Used Substance Use Topics Alcohol use: Yes Comment: rarely Drug use: No Review of Symptoms REVIEW OF SYSTEMS SEE HPI EXAM: BP 157/81 Pulse 88 Temp 36.4 C (97.6 F) Resp 14 Wt 105.7 kg (233 lb) LMP 05/09/2018 (Approximate) BMI 41.27 kg/m General Appearance: Well appearing, alert, in no acute distress, well-hydrated, well nourished.. Nose/Sinuses: Positive findings: mucosa erythematous and swollen, purulent rhinorrhea. Lungs: Lungs clear to auscultation. No wheezing, rhonchi, rales.. Heart: RRR without murmur, gallop, or rubs. No ectopy. Health Maintenance List Depression Screening Never done Hepatitis B Vaccine(1 of 3 - 19+ 3-dose series) Never done Colorectal Cancer Screening Never done Shingrix Vaccine(1 of 2) Never done BP Controlled (<130/80) due on 10/10/2018 DTaP,Tdap,Td Vaccine(6 - Td or Tdap) due on 12/20/2018 Cervical Cancer Screening due on 04/11/2020 Mammogram Screening due on 01/01/2024 Covid-19 Vaccine( season) due on 01/24/2024 Influenza Vaccine(1) due on 01/24/2024 Hepatitis C Screening due on 10/15/2024 HIV Screening due on 10/15/2024 Annual PCP Team Chronic Disease Visit due on 01/18/2025 Diabetes Screening due on 08/11/2026 Lipid Screening due on 12/25/2027 HPV Vaccine Aged Out ASSESSMENT/PLAN: 1. Bacterial sinusitis - ICD9: 473.9, 041.9, ICD10: J32.9, B96.89 - Will begin treatment with Ceftin 250 mg BID for 5 days - The patient should also be given OTC decongestants prn and OTC cough and cold meds as needed for the first 5-7 days of treatment. - Supportive care with plenty of fluids, rest, and analgesia prn. - Follow up in 3-5 days if symptoms persist or worsen. - CEFUROXIME AXETIL 500 MG TABLET Corinna Toussaint APRN.CLERICAL SUPERVISOR documented in this encounter[facility] Telephone encounter Note * Telephone Encounter - Mavis Shen MA - 02/04/2024 11:44 AM EDT Same day appt scheduled with Corinna Toussaint CNP. Mavis Shen MA [facility]09-12-2024 Miscellaneous Notes* Telephone Encounter - Mavis Shen MA - 02/04/2024 11:44 AM EDT Same day appt scheduled with Corinna Toussaint CNP. Mavis Shen MA * Telephone Encounter - Mavis Shen MA - 02/04/2024 8:39 AM EDT Please see message from pt. Pt has had intermittent fevers over the past 9 months. Mavis Shen MA documented in this encounterMer[facility]09-12-2024 Telephone encounter Note * Telephone Encounter - Mavis Shen MA - 02/04/2024 8:39 AM EDT Please see message from pt. Pt has had intermittent fevers over the past 9 months. Mavis Shen MA [facility]09-11-2024 NotePatient Outreach (INTMMN) PAYTON MCQUEEN ([id number]) 1965 F Date Time Provider Department 02/03/24 SUE WEBER During your visit today, we recorded the following information about you: Allergies As of Date: 02/03/2024 Noted Allergy Reaction CELEBREX (CELECOXIB) 05/28/2005 Comments: upsets stomach after prolonged use ie. 6 weeks ERYTHROMYCIN 02/05/2005 8 - GI Upset LISINOPRIL 01/23/2018 16 - Unknown Comments: Cough, hypotension METFORMIN 02/03/2019 8 - GI Upset MOBIC (MELOXICAM) 01/15/2023 11 - Vomiting PROCHLORPERAZINE 09/29/2016 1 - Mental Status Change Comments: Agitation, felt ill TORADOL (KETOROLAC) 01/15/2015 11 - Vomiting VESICARE (SOLIFENACIN) 11/20/2009 2 - Rash Date Reviewed: 01/31/2024 Reviewed by: Elvia Robert LPN - Fully Assessed Visit Diagnosis:Encounter for screening mammogram for breast cancer [Z12.31] Order(s):[facility] SCREEN[facility] ED [[id number]] Order #: [id number] FUTURE Prescriptions as of 02/08/2024 - cefUROXime (CEFTIN) 500 mg tablet Take 1 tablet by mouth two times a day for 5 days. - ipratropium bromide (ATROVENT) 42 mcg (0.06 %) nasal spray Use 1 Rentz in each nostril three times a day for 14 days. - albuterol HFA (PROVENTIL HFA) 90 mcg/actuation inhaler Inhale 2 Puffs as instructed every 4 hours as needed for wheezing/shortness of breath. - benzonatate (TESSALON PERLE) 100 mg capsule Take 1-2 capsules every 8 hours as needed. - busPIRone (BUSPAR) 15 mg tablet Take 1 tablet by mouth three times a day. - levothyroxine (SYNTHROID) 150 mcg tablet Take 1 tablet by mouth daily before breakfast. - sucralfate (CARAFATE) 1 gram tablet Take 1 tablet by mouth four times daily. Before meals and at bedtime - ondansetron (ZOFRAN) 8 mg tablet Take 1 tablet by mouth every 8 hours as needed. - buPROPion XL (WELLBUTRIN XL) 300 mg 24 hr tablet Take 1 tablet by mouth once daily. - cetirizine (ZYRTEC) 10 mg tablet Take 1 tablet by mouth once daily. - omeprazole (PRILOSEC) 40 mg capsule Take 1 capsule by mouth once daily. - methenam/sod phos/mblue/hyoscy (UROGESIC-BLUE ORAL) Take 1 capsule by mouth once daily. - mirabegron (MYRBETRIQ) 50 mg Tb24 Take 1 tablet by mouth once daily. - SACCHAROMYCES BOULARDII (PROBIOTIC, S.BOULARDII, ORAL) Take by mouth once daily. Meds Comments as of 09/26/2022: Was given [facility] at [facility] ED visit Problem List As Of Date 02/03/2024 Noted Resolved Lumbago [M54.50] 02/06/2005 03/26/2016 Hypothyroidism [E03.9] Greater Trochanteric bursitis right [M76.899] 05/28/2005 03/26/2016 Sciatica [M54.30] 06/13/2005 03/26/2016 GENERALIZED ANXIETY DIS [F41.1] 06/11/2006 ESOPHAGEAL REFLUX [K21.9] 08/04/2006 Acute gastritis without mention of hemorrhage [*04/09/2007 03/26/2016 ADJUSTMENT DISORDER WITH DEPRESSED MOOD [F43.21]01/28/2008 BENIGN HYPERTENSION [I10] 03/17/2008 Contusion of chest wall [S20.219A] 06/09/2008 03/26/2016 Thoracic or lumbosacral neuritis or radiculitis*09/19/2008 03/26/2016 Cluster headache syndrome [G44.009] 04/07/2009 03/26/2016 Pelvic pain in female [R10.2] 04/25/2009 03/26/2016 Chronic interstitial cystitis [N30.10] 05/14/2009 Cervical radiculopathy [M54.12] 01/11/2010 03/26/2016 Brachial neuritis or radiculitis NOS [M54.12] 02/04/2010 03/26/2016 Cervical disc disorder with radiculopathy [M50.*02/18/2010 03/26/2016 Impaired glucose tolerance [R73.02] 04/02/2010 Lumbar disc disease with radiculopathy [M51.16] 11/15/2010 03/26/2016 Piriformis syndrome [G57.00] 01/20/2011 03/26/2016 Nonallopathic lesion of sacral region, not else*02/10/2011 03/26/2016 Avascular necrosis of hip [M87.059] 04/15/2011 SI (sacroiliac) joint dysfunction [M53.3] 06/04/2011 03/26/2016 Obesity, Class III, BMI 40-49.9 (morbid obesity*10/01/2011 Lumbar facet arthropathy (HCC) [M47.816] 10/17/2011 03/26/2016 Lumbar spondylosis [M47.816] 10/17/2011 03/26/2016 Left shoulder strain [S46.912A] 10/29/2012 10/19/2014 Left renal mass [N28.89] 06/16/2013 03/26/2016 Thoracolumbar back pain [M54.50, M54.6] 07/20/2013 03/26/2016 Unspecified gastritis and gastroduodenitis with*09/15/2013 03/26/2016 Right sided abdominal pain [R10.9] 01/19/2015 03/26/2016 Strain of right knee and leg [S86.911A] 02/06/2016 03/26/2016 Overactive bladder [N32.81] 02/06/2016 Essential thrombocythemia (HCC) [D47.3] 06/02/2016 Leukocytosis [D72.829] 06/02/2016 Primary cancer of left kidney (HCC) [C64.2] 08/08/2016 06/04/2018 Popliteal cyst, right [M71.21] 05/01/2017 Acute lumbar myofascial strain [S39.012A] 03/15/2018 Renal oncocytoma, left [D30.02] 06/04/2018 Armijo's cyst of knee, left [M71.22] 06/21/2018 Insomnia [G47.00] 11/24/2019 Neck pain [M54.2] 06/12/2020 10/18/2020 Splenomegaly [R16.1] 10/18/2020 Chronic myeloproliferative disorder (HCC) [D47.*10/18/2020 Encounter Status:Closed by EPIC, PRODUSER on 02/08/24[facility] 02-01-2024 Telephone encounter Note* Telephone Encounter - Yusra Szymanski MA - 02/01/2024 7:24 PM EDT Pt was notified of the results. Pt verbalized understanding. Yusra Szymanski MA [facility]09-09-2024 Miscellaneous Notes* Telephone Encounter - Yusra Szymanski MA - 02/01/2024 7:24 PM EDT Pt was notified of the results. Pt verbalized understanding. Yusra Szymanski MA * Telephone Encounter - Juli Holman APRN.CNP - 02/01/2024 4:03 PM EDT CXR negative Continue treatment plan discussed at time of exam. Follow up with PCP for continued and worsening symptoms. Please advise. documented in this encounterMer[facility]09-09-2024 Telephone encounter Note * Telephone Encounter - Juli Holman APRN.CNP - 02/01/2024 4:03 PM EDT CXR negative Continue treatment plan discussed at time of exam. Follow up with PCP for continued and worsening symptoms. Please advise. [facility] Work Phone: [phone]) 542-456709-09-2024 History of Present illness Narrative* Geoff Norman, RT(R) - 02/01/2024 3:50 PM EDT Radiology Service Progress Note PATIENT NAME: Payton Mcqueen DATE OF SERVICE: February 01, 2024 TIME: 3:47 PM PATIENT IDENTITY VERIFICATION COMPLETED USING TWO (2) IDENTIFIERS: Name and Date of confirmedby patient verbally. FALL SCREENING: Has the patient had 2 falls in the last year or 1 fall with injury or currently using an Ambulatory Assistive Device (Walker, Cane, Wheelchair, Crutches, etc.)? No PATIENT GENDER DATA: Female. status: : No status: NO. PATIENT RELEVANT IMPLANT DATA REVIEWED: Yes PATIENT PRESENTS WITH AN IMPLANTABLE OR ATTACHED CONFECTIONERY DROPS MACHINE OPERATOR: No RADIOLOGY DEPARTMENT: General X-ray: Exam(s) Completed: Chest X-Ray PERIPHERAL IV DATA: Not applicable SIGNED BY: RT Joon(Ekta) February 01, 2024 3:47 PM documented in this encounterMercy [facility]09-09-2024 NoteHNO ID: [id number] Author: GEOFF NORMAN RT(R) Service: Radiology Author Type: Technologist Type: Progress Notes Filed: 02/01/2024 15:53 Note Text: Radiology Service Progress Note PATIENT NAME: Payton Mcqueen DATE OF SERVICE: February 01, 2024 TIME: 3:47 PM PATIENT IDENTITY VERIFICATION COMPLETED USING TWO (2) IDENTIFIERS: Name and Date of confirmed by patient verbally. FALL SCREENING: Has the patient had 2 falls in the last year or 1 fall with injury or currently using an Ambulatory Assistive Device (Walker, Cane, Wheelchair, Crutches, etc.)? No PATIENT GENDER DATA: Female. status: : No status: NO. PATIENT RELEVANT IMPLANT DATA REVIEWED: Yes PATIENT PRESENTS WITH AN IMPLANTABLE OR ATTACHED CONFECTIONERY DROPS MACHINE OPERATOR: No RADIOLOGY DEPARTMENT: General X-ray: Exam(s) Completed: Chest X-Ray PERIPHERAL IV DATA: Not applicable SIGNED BY: RT Joon(R) February 01, 2024 3:47 PMCMidd[facility]09-08-2024 Note* Addendum Note - Glenda Omer APRN.CNP - 01/31/2024 2:17 PM EDTAddended by: GLENDA OMER on: 01/31/2024 02:17 PM Modules accepted: Orders [facility]09-08-2024 Miscellaneous Notes* Addendum Note - Glenda Omer APRN.CNP - 01/31/2024 2:17 PM EDTAddended by: GLENDA OMER on: 01/31/2024 02:17 PM Modules accepted: Orders documented in this encounterMer[facility]09-08-2024 NoteHNO ID: [id number] Author: GLENDA OMER APRN.BUD Service: ? Author Type: Nurse Practitioner Type: Progress Notes Filed: 01/31/2024 13:50 Note Text: Subjective The history is provided by the patient. No humanities and languages professor was used. HPI Payton Mcqueen is a 58 year old female who presents today for CC of cough and chest congestion starting a week ago, that has worsened over the past 24 hours. She has used mucinex, tessalon perls, with short term relief. She also has had a low grade fever. LMP 05/09/2018 (Approximate) Social History Tobacco Use Smoking status: Never Smokeless tobacco: Never Vaping Use Vaping status: Never Used Substance Use Topics Alcohol use: Yes Comment: rarely Drug use: No PAST MEDICAL HISTORY No date: Acute gastritis without mention of hemorrhage No date: Anxiety No date: Benign neoplasm of stomach 02/18/2010: Cervical disc disorder with radiculopathy 01/01/2015: Cyst of ovary Comment: [facility] - see scanned documents No date: Depressive disorder, not elsewhere classified 06/02/2016: Essential thrombocythemia (HCC) No date: GERD (gastroesophageal reflux disease) 08/28/11: Hypertension No date: IC (interstitial cystitis) 04/02/2010: Impaired fasting glucose 11/15/2010: Lumbar disc disease with radiculopathy No date: Metabolic syndrome X 08/29/2013: Morbid obesity with BMI of 40.0-44.9, adult (HCC) 07/03/2016: Renal cyst, left Comment: 18 mm, 06/18/16 No date: Sciatica 06/04/2011: SI (sacroiliac) joint dysfunction 07/20/2013: Thoracolumbar back pain No date: Unspecified hypothyroidism No date: Urinary calculus, unspecified Comment: Renal stones I have confirmed and edited as necessary, the [facility] Review of Systems Constitutional: Positive for fever. Negative for chills. HENT: Positive for congestion. Negative for ear pain, sinus pain and sore throat. Respiratory: Positive for cough. Negative for sputum production, shortness of breath and wheezing. Cardiovascular: Negative for chest pain. Gastrointestinal: Negative for abdominal pain, diarrhea, nausea and vomiting. Musculoskeletal: Negative for myalgias. Neurological: Negative for headaches. Objective Physical Exam Vitals and nursing note reviewed. HENT: Head: Normocephalic and atraumatic. Right Ear: Tympanic membrane, ear canal and external ear normal. Left Ear: Tympanic membrane, ear canal and external ear normal. Nose: Mucosal edema, congestion and rhinorrhea present. Right Sinus: No maxillary sinus tenderness or frontal sinus tenderness. Left Sinus: No maxillary sinus tenderness or frontal sinus tenderness. Mouth/Throat: Pharynx: Uvula midline. No oropharyngeal exudate or posterior oropharyngeal erythema. Cardiovascular: Rate and Rhythm: Normal rate and regular rhythm. Heart sounds: Normal heart sounds. Pulmonary: Effort: Pulmonary effort is normal. Breath sounds: Examination of the right-upper field reveals rhonchi. Examination of the left-upper field reveals rhonchi. Rhonchi present. Lymphadenopathy: Head: Right side of head: No submental, submandibular or tonsillar adenopathy. Left side of head: No submental, submandibular or tonsillar adenopathy. Cervical: No cervical adenopathy. Skin: General: Skin is warm and dry. Neurological: Mental Status: She is alert. Psychiatric: Mood and Affect: Affect normal. ASSESSMENT/PLAN: 1. Nasal congestion - ICD9: 478.19, ICD10: R09.81 (primary diagnosis) URI vs sinusitis Nasal saline, flonase Mucinex Start doxycyline 2. Acute cough - ICD9: 786.2, ICD10: R05.1 Continue mucinex and tessalon perls Doxycycline start, possible pneumonia If cxr positive will need second antibiotic added. - XR CHEST 2V FRONTAL/LAT Diagnosis and treatment plan were discussed and questions were answered to the patient's satisfaction. Pt acknowledged understanding of concepts and follow up plan. Specific signs and symptoms that would indicate the need for higher level of care were discussed in detail warranting prompt ER evaluation. Glenda Omer APRN.[facility]09-08-2024 History of Present illness Narrative* Glenda OmerLEIGH.CLERICAL SUPERVISOR - 01/31/2024 1:32 PM EDT Subjective The history is provided by the patient. No humanities and languages professor was used. HPI Payton Mcqueen is a 58 year old female who presents today for CC of cough and chest congestion starting a week ago, that has worsened over the past 24 hours. She has used mucinex, tessalon perls, with short term relief. She also has had a low grade fever. LMP 05/09/2018 (Approximate) Social History Tobacco Use Smoking status: Never Smokeless tobacco: Never Vaping Use Vaping status: Never Used Substance Use Topics Alcohol use: Yes Comment: rarely Drug use: No PAST MEDICAL HISTORY No date: Acute gastritis without mention of hemorrhage No date: Anxiety No date: Benign neoplasm of stomach 02/18/2010: Cervical disc disorder with radiculopathy 01/01/2015: Cyst of ovary Comment: [facility] - see scanned documents No date: Depressive disorder, not elsewhere classified 06/02/2016: Essential thrombocythemia (HCC) No date: GERD (gastroesophageal reflux disease) 08/28/11: Hypertension No date: IC (interstitial cystitis) 04/02/2010: Impaired fasting glucose 11/15/2010: Lumbar disc disease with radiculopathy No date: Metabolic syndrome X 08/29/2013: Morbid obesity with BMI of 40.0-44.9, adult (HCC) 07/03/2016: Renal cyst, left Comment: 18 mm, 06/18/16 No date: Sciatica 06/04/2011: SI (sacroiliac) joint dysfunction 07/20/2013: Thoracolumbar back pain No date: Unspecified hypothyroidism No date: Urinary calculus, unspecified Comment: Renal stones I have confirmed and edited as necessary, the [facility] Review of Systems Constitutional: Positive for fever. Negative for chills. HENT: Positive for congestion. Negative for ear pain, sinus pain and sore throat. Respiratory: Positive for cough. Negative for sputum production, shortness of breath and wheezing. Cardiovascular: Negative for chest pain. Gastrointestinal: Negative for abdominal pain, diarrhea, nausea and vomiting. Musculoskeletal: Negative for myalgias. Neurological: Negative for headaches. Objective Physical Exam Vitals and nursing note reviewed. HENT: Head: Normocephalic and atraumatic. Right Ear: Tympanic membrane, ear canal and external ear normal. Left Ear: Tympanic membrane, ear canal and external ear normal. Nose: Mucosal edema, congestion and rhinorrhea present. Right Sinus: No maxillary sinus tenderness or frontal sinus tenderness. Left Sinus: No maxillary sinus tenderness or frontal sinus tenderness. Mouth/Throat: Pharynx: Uvula midline. No oropharyngeal exudate or posterior oropharyngeal erythema. Cardiovascular: Rate and Rhythm: Normal rate and regular rhythm. Heart sounds: Normal heart sounds. Pulmonary: Effort: Pulmonary effort is normal. Breath sounds: Examination of the right-upper field reveals rhonchi. Examination of the left-upper field reveals rhonchi. Rhonchi present. Lymphadenopathy: Head: Right side of head: No submental, submandibular or tonsillar adenopathy. Left side of head: No submental, submandibular or tonsillar adenopathy. Cervical: No cervical adenopathy. Skin: General: Skin is warm and dry. Neurological: Mental Status: She is alert. Psychiatric: Mood and Affect: Affect normal. ASSESSMENT/PLAN: 1. Nasal congestion - ICD9: 478.19, ICD10: R09.81 (primary diagnosis) URI vs sinusitis Nasal saline, flonase Mucinex Start doxycyline 2. Acute cough - ICD9: 786.2, ICD10: R05.1 Continue mucinex and tessalon perls Doxycycline start, possible pneumonia If cxr positive will need second antibiotic added. - XR CHEST 2V FRONTAL/LAT Diagnosis and treatment plan were discussed and questions were answered to the patient's satisfaction. Pt acknowledged understanding of concepts and follow up plan. Specific signs and symptoms that would indicate the need for higher level of care were discussed indetail warranting prompt ER evaluation. Glenda Omer APRN.BUD documented in this encounterMer[facility]09-07-2024 NoteHNO ID: [id number] Author: OSMAN AGEE APRN.CNP Service: ? Author Type: Nurse Practitioner Type: Progress Notes Filed: 01/30/2024 10:12 Note Text: Telemedicine Visit - Distance Health Virtual Visit Note Patient seen on Event[employer]ist Video Visit platform. Location of patient: [place] I have communicated my name and active licensure. The patient's identity and physical location were verified at the time of this visit. Either the patient or their legal sales and service representative has been informed of the risks and benefits of -- and alternatives to -- treatment through a remote evaluation and consents to proceed with the evaluation remotely. CC: History of Present Illness Payton Mcqueen is a 58 year old female who presents for the past 5 days with symptoms that are:improving. 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 PAST MEDICAL HISTORY No date: Acute gastritis without mention of hemorrhage No date: Anxiety No date: Benign neoplasm of stomach 02/18/2010: Cervical disc disorder with radiculopathy 01/01/2015: Cyst of ovary Comment: [facility] - see scanned documents No date: Depressive disorder, not elsewhere classified 06/02/2016: Essential thrombocythemia (HCC) No date: GERD (gastroesophageal reflux disease) 08/28/11: Hypertension No date: IC (interstitial cystitis) 04/02/2010: Impaired fasting glucose 11/15/2010: Lumbar disc disease with radiculopathy No date: Metabolic syndrome X 08/29/2013: Morbid obesity with BMI of 40.0-44.9, adult (HCC) 07/03/2016: Renal cyst, left Comment: 18 mm, 06/18/16 No date: Sciatica 06/04/2011: SI (sacroiliac) joint dysfunction 07/20/2013: Thoracolumbar back pain No date: Unspecified hypothyroidism No date: Urinary calculus, unspecified Comment: Renal stones PAST SURGICAL HISTORY 1991: CHOLECYSTECTOMY Comment: Cholecystectomy 01/18/14: CYSTOSCOPY,DIL BLADDER,LOCAL ANESTH 04/09/2007: EGD TRANSORAL BIOPSY SINGLE/MULTIPLE Comment: gastritis, gastric polyps No date: KIDNEY SURGERY HX 10/15/2016: LAPAROSC PARTIAL NEPHRECTOMY; Left Comment: oncocytoma, 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 No date: PAST SURGICAL HISTORY OF Comment: WISDOM TEETH EXTRACTIONS 05/2012: PAST SURGICAL HISTORY OF Comment: bladder hydrodistension X 2 2014: PAST SURGICAL HISTORY OF Comment: pain injection lumbar- multiple No date: PAST SURGICAL HISTORY OF Comment: Cyst removed from head FAMILY HISTORY Problem Relation Age of Onset Diabetes Father Hypertension Father Cancer Maternal Grandmother Lymphoma Heart Maternal Grandfather hypertension Hypertension Brother Social History Tobacco Use Smoking status: Never Smokeless tobacco: Never Vaping Use Vaping status: Never Used Substance Use Topics Alcohol use: Yes Comment: rarely Drug use: No Current Outpatient Medications Medication Sig ipratropium bromide (ATROVENT) 42 mcg (0.06 %) nasal spray Use 1 Rentz in each nostril three times a day for 14 days. guaiFENesin (MUCINEX) 1,200 mg Ta12 Take 1 tablet by mouth two times a day for 7 days. albuterol HFA (PROVENTIL HFA) 90 mcg/actuation inhaler Inhale 2 Puffs as instructed every 4 hours as needed for wheezing/shortness of breath. benzonatate (TESSALON PERLE) 100 mg capsule Take 1-2 capsules every 8 hours as needed. busPIRone (BUSPAR) 15 mg tablet Take 1 tablet by mouth three times a day. levothyroxine (SYNTHROID) 150 mcg tablet Take 1 tablet by mouth daily before breakfast. sucralfate (CARAFATE) 1 gram tablet Take 1 tablet by mouth four times daily. Before meals and at bedtime ondansetron (ZOFRAN) 8 mg tablet Take 1 tablet by mouth every 8 hours as needed. buPROPion XL (WELLBUTRIN XL) 300 mg 24 hr tablet Take 1 tablet by mouth once daily. cetirizine (ZYRTEC) 10 mg tablet Take 1 tablet by mouth once daily. omeprazole (PRILOSEC) 40 mg capsule Take 1 capsule by mouth once daily. methenam/sod phos/mblue/hyoscy (UROGESIC-BLUE ORAL) Take 1 capsule by mouth once daily. mirabegron (MYRBETRIQ) 50 mg Tb24 Take 1 tablet by mouth once daily. SACCHAROMYCES BOULARDII (PROBIOTIC, S.BOULARDII, ORAL) Take by mouth once daily. No current facility-administered medications for this visit. ALLERGIES Allergen Reactions Celebrex [Celecoxib] upsets stomach after prolonged use ie. 6 weeks Erythromycin GI Upset Lisinopril Unknown Cough, hypotension Metformin GI Upset Mobic [Meloxicam] Vomiting Prochlorperazine Men (more content not included)...[facility] 01-30-2024 History of Present illness Narrative* Osman Agee, LEIGH.[facility] - 01/30/2024 10:04 AM EDT Telemedicine Visit - Distance Health Virtual Visit Note Patient seen on EventRegist Video Visit platform. Location of patient: [place] I have communicated my name and active licensure. The patient's identity and physical location wereverified at the time of this visit. Either the patient or their legal sales and service representative has been informed of the risks and benefits of -- and alternatives to -- treatment through a remote evaluation andconsents to proceed with the evaluation remotely. CC: History of Present Illness Payton Mcqueen is a 58 year old female who presents for the past 5 days with symptoms that are:improving. 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 PAST MEDICAL HISTORY No date: Acute gastritis without mention of hemorrhage No date: Anxiety No date: Benign neoplasm of stomach 02/18/2010: Cervical disc disorder with radiculopathy 01/01/2015: Cyst of ovary Comment: [facility] - see scanned documents No date: Depressive disorder, not elsewhere classified 06/02/2016: Essential thrombocythemia (HCC) No date: GERD (gastroesophageal reflux disease) 08/28/11: Hypertension No date: IC (interstitial cystitis) 04/02/2010: Impaired fasting glucose 11/15/2010: Lumbar disc disease with radiculopathy No date: Metabolic syndrome X 08/29/2013: Morbid obesity with BMI of 40.0-44.9, adult (HCC) 07/03/2016: Renal cyst, left Comment: 18 mm, 06/18/16 No date: Sciatica 06/04/2011: SI (sacroiliac) joint dysfunction 07/20/2013: Thoracolumbar back pain No date: Unspecified hypothyroidism No date: Urinary calculus, unspecified Comment: Renal stones PAST SURGICAL HISTORY 1991: CHOLECYSTECTOMY Comment: Cholecystectomy 01/18/14: CYSTOSCOPY,DIL BLADDER,LOCAL ANESTH 04/09/2007: EGD TRANSORAL BIOPSY SINGLE/MULTIPLE Comment: gastritis, gastric polyps No date: KIDNEY SURGERY HX 10/15/2016: LAPAROSC PARTIAL NEPHRECTOMY; Left Comment: oncocytoma, 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 No date: PAST SURGICAL HISTORY OF Comment: WISDOM TEETH EXTRACTIONS 05/2012: PAST SURGICAL HISTORY OF Comment: bladder hydrodistension X 2 2014: PAST SURGICAL HISTORY OF Comment: pain injection lumbar- multiple No date: PAST SURGICAL HISTORY OF Comment: Cyst removed from head FAMILY HISTORY Problem Relation Age of Onset Diabetes Father Hypertension Father Cancer Maternal Grandmother Lymphoma Heart Maternal Grandfather hypertension Hypertension Brother Social History Tobacco Use Smoking status: Never Smokeless tobacco: Never Vaping Use Vaping status: Never Used Substance Use Topics Alcohol use: Yes Comment: rarely Drug use: No Current Outpatient Medications Medication Sig ipratropium bromide (ATROVENT) 42 mcg (0.06 %) nasal spray Use 1 Rentz in each nostril three times a day for 14 days. guaiFENesin (MUCINEX) 1,200 mg Ta12 Take 1 tablet by mouth two times a day for 7 days. albuterol HFA (PROVENTIL HFA) 90 mcg/actuation inhaler Inhale 2 Puffs as instructed every 4 hours as needed for wheezing/shortness of breath. benzonatate (TESSALON PERLE) 100 mg capsule Take 1-2 capsules every 8 hours as needed. busPIRone (BUSPAR) 15 mg tablet Take 1 tablet by mouth three times a day. levothyroxine (SYNTHROID) 150 mcg tablet Take 1 tablet by mouth daily before breakfast. sucralfate (CARAFATE) 1 gram tablet Take 1 tablet by mouth four times daily. Before meals and at bedtime ondansetron (ZOFRAN) 8 mg tablet Take 1 tablet by mouth every 8 hours as needed. buPROPion XL (WELLBUTRIN XL) 300 mg 24 hr tablet Take 1 tablet by mouth once daily. cetirizine (ZYRTEC) 10 mg tablet Take 1 tablet by mouth once daily. omeprazole (PRILOSEC) 40 mg capsule Take 1 capsule by mouth once daily. methenam/sod phos/mblue/hyoscy (UROGESIC-BLUE ORAL) Take 1 capsule by mouth once daily. mirabegron (MYRBETRIQ) 50 mg Tb24 Take 1 tablet by mouth once daily. SACCHAROMYCES BOULARDII (PROBIOTIC, S.BOULARDII, ORAL) Take by mouth once daily. No current facility-administered medications for this visit. ALLERGIES Allergen Reactions Celebrex [Celecoxib] upsets stomach after prolonged use ie. 6 weeks Erythromycin GI Upset Lisinopril Unknown Cough, hypotension Metformin GI Upset Mobic [Meloxicam] Vomiting Prochlorperazine Mental Status Change Agitation, felt ill Toradol [Ketorolac] Vomiting Vesicare [Solifenac* Rash Video Exam (Examination performed via Video enabled technology) General appearance: Alert, oriented, pleasant, in NAD: Yes Ill appearing: No Lethargic appearing: No Eyes: Sclera clear: Yes Conjunctiva without erythema: Yes Ears: Tragus / outer ear tenderness by self palpation: No Oropharynx: moist mucus membranes Frontal sinus tenderness by self palpation: No + pressure Maxillary sinus tenderness by self palpation: No+ pressure Tender cervical adenopathy by self palpation: Yes Respiratory distress: No Coughing noted: No Audible wheezing noted: No ASSESSMENT/PLAN: 1. Viral URI with cough - ICD9: 465.9, ICD10: J06.9 - Discussed viral etiology and rationale for treatment. - Take another covid test within the next 48 hours - Supportive care with fluids and rest - Symptomatic treatment of pain/fever/body aches with Ibuprofen or Tylenol - See orders -[email or web address] This link shares information about when antibiotics may help and when they may not. Advised if symptoms persist or worsen despite recommended treatment, recommend to follow up with [facility], PCP, or seek in person evaluation in [facility] within 5-7 days. - Red flags discussed for need for in person care - All questions answered The following approved medication requests have been transmitted electronically. Requested Prescriptions Signed Prescriptions Disp Refills ipratropium bromide (ATROVENT) 42 mcg (0.06 %) nasal spray 6.3 mL 0 Sig: Use 1 Rentz in each nostril three times a day for 14 days. guaiFENesin (MUCINEX) 1,200 mg Ta12 14 tablet 0 Sig: Take 1 tablet by mouth two times a day for 7 days. albuterol HFA (PROVENTIL HFA) 90 mcg/actuation inhaler 8.5 g 0 Sig: Inhale 2 Puffs as instructed every 4 hours as needed for wheezing/shortness of breath. benzonatate (TESSALON PERLE) 100 mg capsule 60 capsule 0 Sig: Take 1-2 capsules every 8 hours as needed. Osman Agee APRN.CNP documented [facility] Telephone encounter Note * Telephone Encounter - Burke Snider APRN.CNP - 01/27/2024 10:40 AM EDT The following approved medication requests have been transmitted electronically. Requested Prescriptions Pending Prescriptions Disp Refills levothyroxine (SYNTHROID) 150 mcg tablet 30 tablet 5 Sig: Take 1 tablet by mouth daily before breakfast. Burke Snider APRN.CNP [facility]09-04-2024 Telephone encounter Note* Telephone Encounter - Burke Snider APRN.CNP - 01/27/2024 10:40 AM EDT The following approved medication requests have been transmitted electronically. Requested Prescriptions Pending Prescriptions Disp Refills busPIRone (BUSPAR) 15 mg tablet 270 tablet 3 Sig: Take 1 tablet by mouth three times a day. Burke Snider APRN.CNP [facility]09-04-2024 Miscellaneous Notes* Telephone Encounter - Burke Snider APRN.CNP - 01/27/2024 10:40 AM EDT The following approved medication requests have been transmitted electronically. Requested Prescriptions Pending Prescriptions Disp Refills levothyroxine (SYNTHROID) 150 mcg tablet 30 tablet 5 Sig: Take 1 tablet by mouth daily before breakfast. Burke Snider APRN.CNP * Telephone Encounter - Jovi Florian LPN - 01/27/2024 9:22 AM EDT Prescription Refill Information The patient has been identified by name and date of : Yes Caregiver verified no other encounters exist for this prescription request: Yes Caregiver confirmed with patient/requestor that no other refills are due, in the near future, with this provider at this time: Yes The last office visit in the department: 01/19/24 Does the patient have a future office visit with this provider/department: Yes, 02/23/24 Requested Prescriptions Pending Prescriptions Disp Refills levothyroxine (SYNTHROID) 150 mcg tablet 30 tablet 5 Sig: Take 1 tablet by mouth daily before breakfast. Jovi Florian LPN January 27, 2024 9:22 AM documented in this encounterMer[facility]24 Miscellaneous Notes* Telephone Encounter - Burke Snider APRN.CNP - 01/27/2024 10:40 AM EDT The following approved medication requests have been transmitted electronically. Requested Prescriptions Pending Prescriptions Disp Refills busPIRone (BUSPAR) 15 mg tablet 270 tablet 3 Sig: Take 1 tablet by mouth three times a day. Burke Snider APRN.CNP * Telephone Encounter - Jovi Florian LPN - 01/27/2024 9:21 AM EDT Prescription Refill Information The patient has been identified by name and date of : Yes Caregiver verified no other encounters exist for this prescription request: Yes Caregiver confirmed with patient/requestor that no other refills are due, in the near future, with this provider at this time: Yes The last office visit in the department: 01/19/24 Does the patient have a future office visit with this provider/department: Yes, 02/23/24 Requested Prescriptions Pending Prescriptions Disp Refills busPIRone (BUSPAR) 15 mg tablet 270 tablet 3 Sig: Take 1 tablet by mouth three times a day. Jovi Florian LPN January 27, 2024 9:22 AM documented in this encounterMer[facility]-04-[facility] Telephone encounter Note * Telephone Encounter - Jovi Florian LPN - 01/27/2024 9:22 AM EDT Prescription Refill Information The patient has been identified by name and date of : Yes Caregiver verified no other encounters exist for this prescription request: Yes Caregiver confirmed with patient/requestor that no other refills are due, in the near future, with this provider at this time: Yes The last office visit in the department: 01/19/24 Does the patient have a future office visit with this provider/department: Yes, 02/23/24 Requested Prescriptions Pending Prescriptions Disp Refills levothyroxine (SYNTHROID) 150 mcg tablet 30 tablet 5 Sig: Take 1 tablet by mouth daily before breakfast. Jovi Florian LPN January 27, 2024 9:22 AM [facility]-04-[facility] Telephone encounter Note* Telephone Encounter - Jovi Florian LPN - 01/27/2024 9:21 AM EDT Prescription Refill Information The patient has been identified by name and date of : Yes Caregiver verified no other encounters exist for this prescription request: Yes Caregiver confirmed with patient/requestor that no other refills are due, in the near future, with this provider at this time: Yes The last office visit in the department: 01/19/24 Does the patient have a future office visit with this provider/department: Yes, 02/23/24 Requested Prescriptions Pending Prescriptions Disp Refills busPIRone (BUSPAR) 15 mg tablet 270 tablet 3 Sig: Take 1 tablet by mouth three times a day. Jovi Florian LPN January 27, 2024 9:22 AM [facility]08-27-[facility] History of Present illness Narrative* Sue Weber MD - 01/19/2024 4:20 PM EDT Chief Complaint Patient presents with: GI Upset: Nausea and Constipation HPI:This Team Access Model visit is a virtual encounter. It required patient- provider interaction for the medical decision making as documented below. Patient was offered a virtual/telemedicine appointment in lieu of an office visit due to recommendations to reduce patient exposure to COVID-19. Patient is aware of limitations of performing the visit without a face to face visit in the office setting and agrees. I have communicated my name and active licensure. The patient's identity and physical location wereverified at the time of this visit. Either the patient or their legal sales and service representative has been informed of the risks and benefits of -- and alternatives to -- treatment through a remote evaluation andconsents to proceed with the evaluation remotely. Her GI issues have been improving, she was able to return to work yesterday and today. Still some upper GI/gas type pain. Having difficulty getting her bowels to move regularly; has used Miralax, butnot consistently. Occ nausea. She used some old Carafate that seemed to help. Past medical history, appointments, medications, allergies reviewed. Previous Medical History PAST MEDICAL HISTORY No date: Acute gastritis without mention of hemorrhage No date: Anxiety No date: Benign neoplasm of stomach 02/18/2010: Cervical disc disorder with radiculopathy 01/01/2015: Cyst of ovary Comment: [facility] - see scanned documents No date: Depressive disorder, not elsewhere classified 06/02/2016: Essential thrombocythemia (HCC) No date: GERD (gastroesophageal reflux disease) 08/28/11: Hypertension No date: IC (interstitial cystitis) 04/02/2010: Impaired fasting glucose 11/15/2010: Lumbar disc disease with radiculopathy No date: Metabolic syndrome X 08/29/2013: Morbid obesity with BMI of 40.0-44.9, adult (HCC) 07/03/2016: Renal cyst, left Comment: 18 mm, 06/18/16 No date: Sciatica 06/04/2011: SI (sacroiliac) joint dysfunction 07/20/2013: Thoracolumbar back pain No date: Unspecified hypothyroidism No date: Urinary calculus, unspecified Comment: Renal stones Previous Surgical History PAST SURGICAL HISTORY 1991: CHOLECYSTECTOMY Comment: Cholecystectomy 01/18/14: CYSTOSCOPY,DIL BLADDER,LOCAL ANESTH 04/09/2007: EGD TRANSORAL BIOPSY SINGLE/MULTIPLE Comment: gastritis, gastric polyps No date: KIDNEY SURGERY HX 10/15/2016: LAPAROSC PARTIAL NEPHRECTOMY; Left Comment: oncocytoma, 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 6 weeks Erythromycin GI Upset Lisinopril Unknown Cough, hypotension Metformin GI Upset Mobic [Meloxicam] Vomiting Prochlorperazine Mental Status Change Agitation, felt ill Toradol [Ketorolac] Vomiting Vesicare [Solifenac* Rash Current Medications Current Outpatient Medications on File Prior to Visit Medication Sig ondansetron (ZOFRAN) 8 mg tablet Take 1 tablet by mouth every 8 hours as needed. buPROPion XL (WELLBUTRIN XL) 300 mg 24 hr tablet Take 1 tablet by mouth once daily. cetirizine (ZYRTEC) 10 mg tablet Take 1 tablet by mouth once daily. omeprazole (PRILOSEC) 40 mg capsule Take 1 capsule by mouth once daily. levothyroxine (SYNTHROID) 150 mcg tablet Take 1 tablet by mouth daily before breakfast. busPIRone (BUSPAR) 15 mg tablet Take 1 tablet by mouth three times daily. methenam/sod phos/mblue/hyoscy (UROGESIC-BLUE ORAL) Take 1 capsule by mouth once daily. mirabegron (MYRBETRIQ) 50 mg Tb24 Take 1 tablet by mouth once daily. SACCHAROMYCES BOULARDII (PROBIOTIC, S.BOULARDII, ORAL) Take by mouth once daily. No current facility-administered medications on file prior to visit. Social History Social History Tobacco Use Smoking status: Never Smokeless tobacco: Never Vaping Use Vaping status: Never Used Substance Use Topics Alcohol use: Yes Comment: rarely Drug use: No EXAM: LMP 05/09/2018 (Approximate) General Appearance: Well appearing, alert, in no acute distress, well-hydrated, well nourished.. Health Maintenance List Depression Screening Never done Hepatitis B Vaccine(1 of 3 - 19+ 3-dose series) Never done Colorectal Cancer Screening Never done Shingrix Vaccine(1 of 2) Never done BP Controlled (<130/80) due on 10/10/2018 DTaP,Tdap,Td Vaccine(6 - Td or Tdap) due on 12/20/2018 Cervical Cancer Screening due on 04/11/2020 Covid-19 Vaccine( season) due on 01/23/2023 Mammogram Screening due on 01/01/2024 Hepatitis C Screening due on 10/15/2024 HIV Screening due on 10/15/2024 Influenza Vaccine(1) due on 01/24/2024 Annual PCP Team Chronic Disease Visit due on 01/13/2025 Diabetes Screening due on 08/11/2026 Lipid Screening due on 12/25/2027 HPV Vaccine Aged Out Data reviewed Epic ASSESSMENT/PLAN: 1. Gastritis with hemorrhage, unspecified chronicity, unspecified gastritis type - ICD9: 535.51, ICD10: K29.71 Will add Carafate for 1-2 weeks; continue other treatments Follow up prn - SUCRALFATE 1 GRAM TABLET Sue Weber MD documented in this encounterMer[facility]08-27-2024 NoteHNO ID: [id number] Author: SUE WEBER MD Service: ? Author Type: Physician Type: Progress Notes Filed: 01/19/2024 16:46 Note Text: Chief Complaint Patient presents with: GI Upset: Nausea and Constipation HPI:This Team Access Model visit is a virtual encounter. It required patient-provider interaction for the medical decision making as documented below. Patient was offered a virtual/telemedicine appointment in lieu of an office visit due to recommendations to reduce patient exposure to COVID-19. Patient is aware of limitations of performing the visit without a face to face visit in the office setting and agrees. I have communicated my name and active licensure. The patient's identity and physical location were verified at the time of this visit. Either the patient or their legal sales and service representative has been informed of the risks and benefits of -- and alternatives to -- treatment through a remote evaluation and consents to proceed with the evaluation remotely. Her GI issues have been improving, she was able to return to work yesterday and today. Still some upper GI/gas type pain. Having difficulty getting her bowels to move regularly; has used Miralax, but not consistently. Occ nausea. She used some old Carafate that seemed to help. Past medical history, appointments, medications, allergies reviewed. Previous Medical History PAST MEDICAL HISTORY No date: Acute gastritis without mention of hemorrhage No date: Anxiety No date: Benign neoplasm of stomach 02/18/2010: Cervical disc disorder with radiculopathy 01/01/2015: Cyst of ovary Comment: [facility] - see scanned documents No date: Depressive disorder, not elsewhere classified 06/02/2016: Essential thrombocythemia (HCC) No date: GERD (gastroesophageal reflux disease) 08/28/11: Hypertension No date: IC (interstitial cystitis) 04/02/2010: Impaired fasting glucose 11/15/2010: Lumbar disc disease with radiculopathy No date: Metabolic syndrome X 08/29/2013: Morbid obesity with BMI of 40.0-44.9, adult (HCC) 07/03/2016: Renal cyst, left Comment: 18 mm, 06/18/16 No date: Sciatica 06/04/2011: SI (sacroiliac) joint dysfunction 07/20/2013: Thoracolumbar back pain No date: Unspecified hypothyroidism No date: Urinary calculus, unspecified Comment: Renal stones Previous Surgical History PAST SURGICAL HISTORY 1991: CHOLECYSTECTOMY Comment: Cholecystectomy 01/18/14: CYSTOSCOPY,DIL BLADDER,LOCAL ANESTH 04/09/2007: EGD TRANSORAL BIOPSY SINGLE/MULTIPLE Comment: gastritis, gastric polyps No date: KIDNEY SURGERY HX 10/15/2016: LAPAROSC PARTIAL NEPHRECTOMY; Left Comment: oncocytoma, 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 6 weeks Erythromycin GI Upset Lisinopril Unknown Cough, hypotension Metformin GI Upset Mobic [Meloxicam] Vomiting Prochlorperazine Mental Status Change Agitation, felt ill Toradol [Ketorolac] Vomiting Vesicare [Solifenac* Rash Current Medications Current Outpatient Medications on File Prior to Visit Medication Sig ondansetron (ZOFRAN) 8 mg tablet Take 1 tablet by mouth every 8 hours as needed. buPROPion XL (WELLBUTRIN XL) 300 mg 24 hr tablet Take 1 tablet by mouth once daily. cetirizine (ZYRTEC) 10 mg tablet Take 1 tablet by mouth once daily. omeprazole (PRILOSEC) 40 mg capsule Take 1 capsule by mouth once daily. levothyroxine (SYNTHROID) 150 mcg tablet Take 1 tablet by mouth daily before breakfast. busPIRone (BUSPAR) 15 mg tablet Take 1 tablet by mouth three times daily. methenam/sod phos/mblue/hyoscy (UROGESIC-BLUE ORAL) Take 1 capsule by mouth once daily. mirabegron (MYRBETRIQ) 50 mg Tb24 Take 1 tablet by mouth once daily. SACCHAROMYCES BOULARDII (PROBIOTIC, S.BOULARDII, ORAL) Take by mouth once daily. No current facility-administered medications on file prior to visit. Social History Social History Tobacco Use Smoking status: Never Smokeless tobacco: Never Vaping Use Vaping status: Never Used Substance Use Topics Alcohol use: Yes Comment: rarely Drug use: No EXAM: LMP 05/09/2018 (Approximate) General Appearance: Well appearing, alert, in no acute distress, well-hydrated, well nourished.. Health Maintenance List Depression Screening Never done Hepatitis B Vaccine(1 of 3 - 19+ 3-dose series) Never done Colorectal Cancer Screening Never done Shingrix Vaccine(1 of 2) Never done BP Cont (more content not included)...[facility]08-27-2024 Telephone encounter Note* Telephone Encounter - Mavis Shen MA - 01/19/2024 8:45 AM EDT Switched to VV per pt request. Mavis Shen MA [facility]08-27-2024 Miscellaneous Notes* Telephone Encounter - Mavis Shen MA - 01/19/2024 8:45 AM EDT Switched to VV per pt request. Mavis Shen MA documented in this encounterMer[facility]08-22-2024 History of Present illness Narrative* Sue Weber MD - 01/14/2024 10:20 AM EDT Chief Complaint Patient presents with: Hospital Follow Up HPI Payton Mcqueen is a 58 year old female who presents here today for a Hospital follow up. Pt seen in [facility] ED on 01/11/24 for stomach pain. Reports she woke up Thursday night at 3:00 am on 01/11/24. Notes her stomach pain was very painful andshe asked for a friend to drive her to the ED. Pt notes that Provider in the ED was confident it was appendicitis, but on imaging it was normal and labs. Pt reports she was having pain in RLQ. Pain has some what improved but she feels nauseated frequently. Was given Zofran from the ED. Has had recurrent low grade fevers since having Covid. Denies any fever over the past 24 hours. States she's eating but not much. Eating more bland foods. Does have some issues with constipation, using Miralax. Was able to have a BM yesterday, but worried about taking too much. 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 Last week pt reports shewas fine when working. Reports not going to work this week. Requesting work excuse. Anxiety - No longer taking Ativan. ED records - HPI - GI History of Present Illness Chief Complaint: Abd Pain Informant: patient and friend Narrative: 58-year-old female 1-2 days of generalized abdominal discomfort that now seems to be focused in theright lower quadrant. Low-grade fevers up to 100.3, she is99.5 here, some nausea no vomiting, poor appetite and a couple bouts of some diarrhea no blood. No melena. History of cholecystectomy and a partial nephrectomy due to a mass that was thought to potentially be cancer, she states it ended up being benign. None of the surgeries were recent. Denies any urinary symptoms, and states this distinctly feels different than a UTI she had in the past. She had some back pain earlier but none now Medical decision making narrative: Concern here is for acute appendicitis, she provides fairly classic history and exam. She does not have rebound tenderness, so I feel she is safe to await an IV contrasted CT. In the meantime labs obtained and she is provided IV fluids, Zofran, morphine. Her labs were reviewed. She has a significant leukocytosis however this is common for her, and she is aware of this, related to her chronic myeloproliferative disorder, which also causes her to have thrombocytosis. Her platelet count is not as high as it usually is, 562. Again out of concern for appendicitis we did obtain a CT of the abdomen/pelvis. I reviewed the images aswell as the report which I agree with. It is negative for any acute including appendicitis. There were no mesenteric lymph nodes noted. However, I do think this could be a mimic such as mesenteric adenitis, maybe this is caused by a virus which is why she is having low-grade fevers. She is not having urinary symptoms I donot think we need to check her urine. She does have quite a bit of stool present in the right hemicolon. I asked her about constipation she confirms that she has been constipated recently. We talked about potentially treating that at home, and following up as needed she is asking for a work note which was given as well as a prescription for nausea medication. Again I think her white blood count represents her chronic myeloproliferative disorder and notnecessarily an acute inflammatory disorder causing her pain CT/Abdomen/Pelvis W IV Cont ONLY IMPRESSION: 1. No acute intra-abdominal abnormalities. 2. Marked splenomegaly measuring over 20 cm in length. Worsening compared to the previous examination. This could be secondary to underlying hematologic, metabolic or storage disease, but a neoplastic process is not excluded. Clinical workup is recommended. Electronically Signed: Christian Meek MD at 6:12 ED Past medical history, appointments, medications, allergies reviewed. Previous Medical History PAST MEDICAL HISTORY No date: Acute gastritis without mention of hemorrhage No date: Anxiety No date: Benign neoplasm of stomach 02/18/2010: Cervical disc disorder with radiculopathy 01/01/2015: Cyst of ovary Comment: [facility] - see scanned documents No date: Depressive disorder, not elsewhere classified 06/02/2016: Essential thrombocythemia (HCC) No date: GERD (gastroesophageal reflux disease) 08/28/11: Hypertension No date: IC (interstitial cystitis) 04/02/2010: Impaired fasting glucose 11/15/2010: Lumbar disc disease with radiculopathy No date: Metabolic syndrome X 08/29/2013: Morbid obesity with BMI of 40.0-44.9, adult (HCC) 07/03/2016: Renal cyst, left Comment: 18 mm, 06/18/16 No date: Sciatica 06/04/2011: SI (sacroiliac) joint dysfunction 07/20/2013: Thoracolumbar back pain No date: Unspecified hypothyroidism No date: Urinary calculus, unspecified Comment: Renal stones Previous Surgical History PAST SURGICAL HISTORY 1991: CHOLECYSTECTOMY Comment: Cholecystectomy 01/18/14: CYSTOSCOPY,DIL BLADDER,LOCAL ANESTH 04/09/2007: EGD TRANSORAL BIOPSY SINGLE/MULTIPLE Comment: gastritis, gastric polyps No date: KIDNEY SURGERY HX 10/15/2016: LAPAROSC PARTIAL NEPHRECTOMY; Left Comment: oncocytoma, 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 6 weeks Erythromycin GI Upset Lisinopril Unknown Cough, hypotension Metformin GI Upset Mobic [Meloxicam] Vomiting Prochlorperazine Mental Status Change Agitation, felt ill Toradol [Ketorolac] Vomiting Vesicare [Solifenac* Rash Current Medications Current Outpatient Medications on File Prior to Visit Medication Sig buPROPion XL (WELLBUTRIN XL) 300 mg 24 hr tablet Take 1 tablet by mouth once daily. cetirizine (ZYRTEC) 10 mg tablet Take 1 tablet by mouth once daily. omeprazole (PRILOSEC) 40 mg capsule Take 1 capsule by mouth once daily. levothyroxine (SYNTHROID) 150 mcg tablet Take 1 tablet by mouth daily before breakfast. ondansetron (ZOFRAN) 8 mg tablet Take 1 tablet by mouth every 8 hours as needed. busPIRone (BUSPAR) 15 mg tablet Take 1 tablet by mouth three times daily. methenam/sod phos/mblue/hyoscy (UROGESIC-BLUE ORAL) Take 1 capsule by mouth once daily. mirabegron (MYRBETRIQ) 50 mg Tb24 Take 1 tablet by mouth once daily. SACCHAROMYCES BOULARDII (PROBIOTIC, S.BOULARDII, ORAL) Take by mouth once daily. No current facility-administered medications on file prior to visit. Social History Social History Tobacco Use Smoking status: Never Smokeless tobacco: Never Vaping Use Vaping status: Never Used Substance Use Topics Alcohol use: Yes Comment: rarely Drug use: No EXAM: BP 144/80 (BP Site: Left Arm, BP Position: Sitting, BP Cuff Size: Regular Adult) Pulse 78 Resp 18 Wt 106.2 kg (234 lb 2.1 oz) LMP 05/09/2018 (Approximate) BMI 41.47 kg/m General Appearance: Well appearing, alert, in no acute distress, well-hydrated, well nourished. andMorbidly obese. Lungs: Lungs clear to auscultation. No wheezing, rhonchi, rales.. Heart: RRR without murmur, gallop, or rubs. No ectopy. Abdomen: soft, normal bowel sounds, lower right tenderness with palpation, no guarding or rebound. Health Maintenance List Depression Screening Never done Hepatitis B Vaccine(1 of 3 - 19+ 3-dose series) Never done Colorectal Cancer Screening Never done Shingrix Vaccine(1 of 2) Never done BP Controlled (<130/80) due on 10/10/2018 DTaP,Tdap,Td Vaccine(6 - Td or Tdap) due on 12/20/2018 Cervical Cancer Screening due on 04/11/2020 Covid-19 Vaccine(2022- season) due on 01/23/2023 Mammogram Screening due on 01/01/2024 Hepatitis C Screening due on 10/15/2024 HIV Screening due on 10/15/2024 Influenza Vaccine(1) due on 01/24/2024 Annual PCP Team Chronic Disease Visit due on 11/18/2024 Diabetes Screening due on 08/11/2026 Lipid Screening due on 12/25/2027 HPV Vaccine Aged Out Data reviewed Epic - scanned outside documents ASSESSMENT/PLAN: 1. RLQ abdominal pain - ICD9: 789.03, ICD10: R10.31 (primary diagnosis) Continue Miralax, zofran as needed Note for work given Follow up if not immproving 2. Generalized anxiety disorder - ICD9: 300.02, ICD10: F41.1 3. Essential hypertension, benign - ICD9: 401.1, ICD10: I10 4. Essential thrombocythemia (HCC) - ICD9: 238.71, ICD10: D47.3 Controlled 5. Chronic myeloproliferative disorder (HCC) - ICD9: 238.79, ICD10: D47.1 Follow with Heme/Onc Follow up prn Medical Decision Making: Problems: Moderate: New problem with uncertain prognosis and 2+ stable chronic illnesses Risk: Moderate: Drug management Medical Decision Making Level: 4 - Moderate Sue Weber MD documented in [facility] encounter[facility] NoteHNO ID: [id number] Author: SUE WEBER MD Service: ? Author Type: Physician Type: Progress Notes Filed: 01/14/2024 11:19 Note Text: Chief Complaint Patient presents with: Hospital Follow Up HPI Payton Mcqueen is a 58 year old female who presents here today for a Hospital follow up. Pt seen in [facility] ED on 01/11/24 for stomach pain. Reports she woke up Thursday night at 3:00 am on 01/11/24. Notes her stomach pain was very painful and she asked for a friend to drive her to the ED. Pt notes that Provider in the ED was confident it was appendicitis, but on imaging it was normal and labs. Pt reports she was having pain in RLQ. Pain has some what improved but she feels nauseated frequently. Was given Zofran from the ED. Has had recurrent low grade fevers since having Covid. Denies any fever over the past 24 hours. States she's eating but not much. Eating more bland foods. Does have some issues with constipation, using Miralax. Was able to have a BM yesterday, but worried about taking too much. 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 Last week pt reports she was fine when working. Reports not going to work this week. Requesting work excuse. Anxiety - No longer taking Ativan. ED records - HPI - GI History of Present Illness Chief Complaint: Abd Pain Informant: patient and friend Narrative: 58-year-old female 1-2 days of generalized abdominal discomfort that now seems to be focused in the right lower quadrant. Low-grade fevers up to 100.3, she is99.5 here, some nausea no vomiting, poor appetite and a couple bouts of some diarrhea no blood. No melena. History of cholecystectomy and a partial nephrectomy due to a mass that was thought to potentially be cancer, she states it ended up being benign. None of the surgeries were recent. Denies any urinary symptoms, and states this distinctly feels different than a UTI she had in the past. She had some back pain earlier but none now Medical decision making narrative: Concern here is for acute appendicitis, she provides fairly classic history and exam. She does not have rebound tenderness, so I feel she is safe to await an IV contrasted CT. In the meantime labs obtained and she is provided IV fluids, Zofran, morphine. Her labs were reviewed. She has a significant leukocytosis however this is common for her, and she is aware of this, related to her chronic myeloproliferative disorder, which also causes her to have thrombocytosis. Her platelet count is not as high as it usually is, 562. Again out of concern for appendicitis we did obtain a CT of the abdomen/pelvis. I reviewed the images aswell as the report which I agree with. It is negative for any acute including appendicitis. There were no mesenteric lymph nodes noted. However, I do think this could be a mimic such as mesenteric adenitis, maybe this is caused by a virus which is why she is having low-grade fevers. She is not having urinary symptoms I do not think we need to check her urine. She does have quite a bit of stool present in the right hemicolon. I asked her about constipation she confirms that she has been constipated recently. We talked about potentially treating that at home, and following up as needed she is asking for a work note which was given as well as a prescription for nausea medication. Again I think her white blood count represents her chronic myeloproliferative disorder and notnecessarily an acute inflammatory disorder causing her pain CT/Abdomen/Pelvis W IV Cont ONLY IMPRESSION: 1. No acute intra-abdominal abnormalities. 2. Marked splenomegaly measuring over 20 cm in length. Worsening compared to the previous examination. This could be secondary to underlying hematologic, metabolic or storage disease, but a neoplastic process is not excluded. Clinical workup is recommended. Electronically Signed: Christian Meek MD at 6:12 ED Past medical history, appointments, medications, allergies reviewed. Previous Medical History PAST MEDICAL HISTORY No date: Acute gastritis without mention of hemorrhage No date: Anxiety No date: Benign neoplasm of stomach 02/18/2010: Cervical disc disorder with radiculopathy 01/01/2015: Cyst of ovary Comment: [facility] - see scanned documents No date: Depressive disorder, not elsewhere classified 06/02/2016: Essential thrombocythemia (HCC) No date: GERD (gastroesophageal reflux disease) 08/28/11: Hypertension No date: IC (interstitial cystitis) 04/02/2010: Impaired fasting glucose 11/15/2010: Lumbar disc disease with radiculopathy No date: Metabolic syndrome X 08/29/2013: Morbid obesity with BMI of 40.0-44.9, adult (HCC) 07/03/2016: Renal cyst, left Comment: 18 mm, 06/18/16 No date: Sciatica 06/04/2011: SI (sacroiliac) joint dysfunction 07/20/2013: Thoracolumbar back pain No date: Unspecified hypothyroidism No date: Urinary calculus, unspecified Comme (more content not included)...[facility]08-07-2024 Telephone encounter Note* Telephone Encounter - Jerica Chaudhari APRN.CNP - 12/30/2023 6:24 PM EDT The following approved medication requests have been transmitted electronically. Requested Prescriptions Pending Prescriptions Disp Refills buPROPion XL (WELLBUTRIN XL) 300 mg 24 hr tablet 90 tablet 3 Sig: Take 1 tablet by mouth once daily. Jerica Chaudhari APRN.CNP [facility]08-07-2024 Miscellaneous Notes* Telephone Encounter - Jerica Chaudhari APRN.CNP - 12/30/2023 6:24 PM EDT The following approved medication requests have been transmitted electronically. Requested Prescriptions Pending Prescriptions Disp Refills buPROPion XL (WELLBUTRIN XL) 300 mg 24 hr tablet 90 tablet 3 Sig: Take 1 tablet by mouth once daily. Jeriac Chaudhari APRN.CNP * Telephone Encounter - Margaux Bueno LPN - 12/30/2023 4:08 PM EDT [facility]-11/19/23 Labs-11/16/23Mar-02/23/24 Margaux Bueno LPN documented in this encounterMer[facility]08-07-2024 Telephone encounter Note * Telephone Encounter - Margaux Bueno LPN - 12/30/2023 4:08 PM EDT [facility]-11/19/23 Labs-11/16/23Mar-02/23/24 Margaux Bueno LPN [facility]07-19-2024 Telephone encounter Note* Telephone Encounter - Jerica Chaudhari APRN.CNP - 12/11/2023 12:45 PM EDT The following approved medication requests have been transmitted electronically. Requested Prescriptions Pending Prescriptions Disp Refills cetirizine (ZYRTEC) 10 mg tablet 30 tablet 5 Sig: Take 1 tablet by mouth once daily. Jerica Chaudhari APRN.CNP [facility]07-19-2024 Miscellaneous Notes* Telephone Encounter - Jerica Chaudhari APRN.CNP - 12/11/2023 12:45 PM EDT The following approved medication requests have been transmitted electronically. Requested Prescriptions Pending Prescriptions Disp Refills cetirizine (ZYRTEC) 10 mg tablet 30 tablet 5 Sig: Take 1 tablet by mouth once daily. Jerica Chaudhari APRN.CNP * Telephone Encounter - Margaux Bueno LPN - 12/11/2023 12:34 PM EDT [facility]-11/19/23 Labs-11/16/23Mar-02/23/24 Margaux Bueno LPN documented in this encounterMer[facility]07-19-2024 Telephone encounter Note * Telephone Encounter - Margaux Bueno LPN - 12/11/2023 12:34 PM EDT [facility]-11/19/23 Labs-11/16/23Mar-02/23/24 Margaux Bueno LPN [facility]07-12-2024 Telephone encounter Note* Telephone Encounter - Andreina Caicedo MA - 12/04/2023 12:56 PM EDT Notified via [employer]press[employer]. Andreina Caicedo MA [facility]07-12-2024 Miscellaneous Notes* Telephone Encounter - Andreina Caicedo MA - 12/04/2023 12:56 PM EDT Notified via [employer]. Andreina Caicedo MA * Telephone Encounter - Jerica Chaudhari APRN.BUD - 12/04/2023 12:44 PM EDT The following approved medication requests have been transmitted electronically. Requested Prescriptions Signed Prescriptions Disp Refills fluconazole (DIFLUCAN) 150 mg tablet 2 tablet 0 Sig: Take 1 tablet by mouth one time only for 1 dose. Repeat in 3 days as needed. Authorizing Provider: JERICA CHAUDHARI APRN.CNP * Telephone Encounter - Belinda Johnson LPN - 12/04/2023 10:56 AM EDT Patient calling she is taking an antibiotic for UTI symptoms has one dose Cephalexin left. Now she is having yeast infection issues, rash and vaginal discharge, asking for a Diflucan rx to be sent [facility] pharmacy. Pending rx if wanted. Please advise documented in this encounterMer[facility]07-12-2024 Telephone encounter Note * Telephone Encounter - Jerica Chaudhari APRN.CNP - 12/04/2023 12:44 PM EDT The following approved medication requests have been transmitted electronically. Requested Prescriptions Signed Prescriptions Disp Refills fluconazole (DIFLUCAN) 150 mg tablet 2 tablet 0 Sig: Take 1 tablet by mouth one time only for 1 dose. Repeat in 3 days as needed. Authorizing Provider: JERICA CHAUDHARI APRN.CNP [facility]07-12-2024 Telephone encounter Note* Telephone Encounter - Belinda Johnson LPN - 12/04/2023 10:56 AM EDT Patient calling she is taking an antibiotic for UTI symptoms has one dose Cephalexin left. Now she is having yeast infection issues, rash and vaginal discharge, asking for a Diflucan rx to be sent [facility] pharmacy. Pending rx if wanted. Please advise [facility]07-07-[facility]24 Telephone encounter Note* Telephone Encounter - Yusra Szymanski MA - 11/29/2023 8:23 AM EDT Pt was notified of the results. Pt verbalized understanding. Yusra Szymanski MA [facility]07-07-2024 Miscellaneous Notes* Telephone Encounter - Yusra Szymanski MA - 11/29/2023 8:23 AM EDT Pt was notified of the results. Pt verbalized understanding. Yusra Szymanski MA * Telephone Encounter - Hang Parker APRN.CNP - 11/29/2023 8:14 AM EDT Please inform patient that no significant bacterial infection were noted on urine culture. May continue antibiotic as symptoms are improving. Follow-up with PCP if symptoms are not. Hang Parker APRN.BUD documented in this encounterMer[facility]07-07-2024 Telephone encounter Note * Telephone Encounter - Hang Parker APRN.CNP - 11/29/2023 8:14 AM EDT Please inform patient that no significant bacterial infection were noted on urine culture. May continue antibiotic as symptoms are improving. Follow-up with PCP if symptoms are not. Hang Parker APRN.CNP [facility]07-05-2024 NoteHNO ID: [id number] Author: HANG PARKER APRN.CNP Service: ? Author Type: Nurse Practitioner Type: Progress Notes Filed: 11/27/2023 19:52 Note Text: Subjective HPI Nontoxic-appearing female presents urgent care chief complaint possible UTI. Duration of symptoms 3 days. Associated symptoms dysuria frequency urgency. History of UTIs. This feels similar. Did use uroflow yesterday. This did help. History of frequent UTIs. Has not had 1 since April. Sees urology for interstitial cystitis. Additionally has sinus pressure runny nose fatigue. These symptoms started yesterday. Have worsened. States felt a little achy today. Does not know if she is sick or if this is her allergies. Denies any fevers productive cough chest pain shortness of breath pleuritic pain hemoptysis nausea vomiting or rashes. Past medical history prescription medications allergies reviewed. .Patient presents with: Urinary Problem: Frequency,urgency, burning. Low grade x 3 days Sinus Problem: Nasals congestion, runny nose, sinus pessurex 1 days PAST MEDICAL HISTORY Diagnosis Date Acute gastritis without mention of hemorrhage Anxiety Benign neoplasm of stomach Cervical disc disorder with radiculopathy 02/18/2010 Cyst of ovary 01/01/2015 [facility] - see scanned documents Depressive disorder, not elsewhere classified Essential thrombocythemia (HCC) 06/02/2016 GERD (gastroesophageal reflux disease) Hypertension 08/28/11 IC (interstitial cystitis) Impaired fasting glucose 04/02/2010 Lumbar disc disease with radiculopathy 11/15/2010 Metabolic syndrome X Morbid obesity with BMI of 40.0-44.9, adult (HCC) 08/29/2013 Renal cyst, left 07/03/2016 18 mm, 06/18/16 Sciatica SI (sacroiliac) joint dysfunction 06/04/2011 Thoracolumbar back pain 07/20/2013 Unspecified hypothyroidism Urinary calculus, unspecified Renal stones PAST SURGICAL HISTORY Procedure Laterality Date CHOLECYSTECTOMY 1991 Cholecystectomy CYSTOSCOPY,DIL BLADDER,LOCAL ANESTH 01/18/14 EGD TRANSORAL BIOPSY SINGLE/MULTIPLE 04/09/2007 gastritis, gastric polyps KIDNEY SURGERY HX 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 Valadez PAST SURGICAL HISTORY OF WISDOM TEETH EXTRACTIONS PAST SURGICAL HISTORY OF 05/2012 bladder hydrodistension X 2 PAST SURGICAL HISTORY OF 2014 pain injection lumbar- multiple PAST SURGICAL HISTORY OF Cyst removed from head ALLERGIES Celebrex [Celecoxib], Erythromycin, Lisinopril, Metformin, Mobic [Meloxicam], Prochlorperazine, Toradol [Ketorolac], and Vesicare [Solifenacin] MEDICATIONS fexofenadine (KATIA ALLERGY) 180 mg tablet Take 1 tablet by mouth once daily. ALPRAZolam (XANAX) 0.25 mg tablet Take 1 tablet by mouth once daily as needed for up to 90 days. omeprazole (PRILOSEC) 40 mg capsule Take 1 capsule by mouth once daily. cetirizine (ZYRTEC) 10 mg tablet Take 1 tablet by mouth once daily. levothyroxine (SYNTHROID) 150 mcg tablet Take 1 tablet by mouth daily before breakfast. ondansetron (ZOFRAN) 8 mg tablet Take 1 tablet by mouth every 8 hours as needed. busPIRone (BUSPAR) 15 mg tablet Take 1 tablet by mouth three times daily. methenam/sod phos/mblue/hyoscy (UROGESIC-BLUE ORAL) Take 1 capsule by mouth once daily. buPROPion XL (WELLBUTRIN XL) 300 mg 24 hr tablet Take 1 tablet by mouth once daily. mirabegron (MYRBETRIQ) 50 mg Tb24 Take 1 tablet by mouth once daily. SACCHAROMYCES BOULARDII (PROBIOTIC, S.BOULARDII, ORAL) Take by mouth once daily. FAMILY HISTORY Problem Relation Age of Onset Diabetes Father Hypertension Father Cancer Maternal Grandmother Lymphoma Heart Maternal Grandfather hypertension Hypertension Brother Social History Tobacco Use Smoking status: Never Smokeless tobacco: Never Vaping Use Vaping Use: Never used Substance Use Topics Alcohol use: Yes Comment: rarely Drug use: No BP 168/82 Pulse 86 Temp 36.4 ?C (97.5 ?F) Resp 18 Wt 107 kg (235 lb 14.3 oz) LMP 05/09/2018 (Approximate) SpO2 98% BMI 41.79 kg/m? Review of Systems Constitutional: Positive for malaise/fatigue. Negative for chills and fever. HENT: Positive for congestion and sinus pain. Negative for ear discharge, ear pain and sore throat. Eyes: Negative for blurred vision, pain, discharge and redness. Respiratory: Negative for cough, hemoptysis, sputum production, shortness of breath, wheezing and stridor. Cardiovascular: Negative for chest pain. Gastrointestinal: Negative for abdominal pain, diarrhea, nausea and vomiting. Genitourinary: Positive for dysuria, frequency and urgency. Negative for flank pain and hematuria. Musculoskeletal: Positive for myalgias. Skin: Negative for itching and rash. Neurological: Negative for dizziness and headaches. Objective Physical Exam Vitals and nursing note reviewed. Constitutional: General: She is not in acute distress. Appearance: She is not toxic-appearing or diaphoretic. HENT: Head: [place] (more content not included)...[facility]07-05-2024 History of Present illness Narrative* Hang Parker APRN.CLERICAL SUPERVISOR - 11/27/2023 7:29 PM EDT Subjective HPI Nontoxic-appearing female presents urgent care chief complaint possible UTI. Duration of symptoms 3days. Associated symptoms dysuria frequency urgency. History of UTIs. This feels similar. Did use uroflow yesterday. This did help. History of frequent UTIs. Has not had 1 since April. Sees urology for interstitial cystitis. Additionally has sinus pressure runny nose fatigue. These symptoms started yesterday. Have worsened. States felt a little achy today. Does not know if she is sick or if this is her allergies. Denies any fevers productive cough chest pain shortness of breath pleuritic pain hemoptysis nausea vomiting or rashes. Past medical history prescription medications allergies reviewed. .Patient presents with: Urinary Problem: Frequency,urgency, burning. Low grade x 3 days Sinus Problem: Nasals congestion, runny nose, sinus pessurex 1 days PAST MEDICAL HISTORY Diagnosis Date Acute gastritis without mention of hemorrhage Anxiety Benign neoplasm of stomach Cervical disc disorder with radiculopathy 02/18/2010 Cyst of ovary 01/01/2015 [facility] - see scanned documents Depressive disorder, not elsewhere classified Essential thrombocythemia (HCC) 06/02/2016 GERD (gastroesophageal reflux disease) Hypertension 08/28/11 IC (interstitial cystitis) Impaired fasting glucose 04/02/2010 Lumbar disc disease with radiculopathy 11/15/2010 Metabolic syndrome X Morbid obesity with BMI of 40.0-44.9, adult (HCC) 08/29/2013 Renal cyst, left 07/03/2016 18 mm, 06/18/16 Sciatica SI (sacroiliac) joint dysfunction 06/04/2011 Thoracolumbar back pain 07/20/2013 Unspecified hypothyroidism Urinary calculus, unspecified Renal stones PAST SURGICAL HISTORY Procedure Laterality Date CHOLECYSTECTOMY 1991 Cholecystectomy CYSTOSCOPY,DIL BLADDER,LOCAL ANESTH 01/18/14 EGD TRANSORAL BIOPSY SINGLE/MULTIPLE 04/09/2007 gastritis, gastric polyps KIDNEY SURGERY HX 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 Valadez PAST SURGICAL HISTORY OF WISDOM TEETH EXTRACTIONS PAST SURGICAL HISTORY OF 05/2012 bladder hydrodistension X 2 PAST SURGICAL HISTORY OF 2014 pain injection lumbar- multiple PAST SURGICAL HISTORY OF Cyst removed from head ALLERGIES Celebrex [Celecoxib], Erythromycin, Lisinopril, Metformin, Mobic [Meloxicam], Prochlorperazine, Toradol [Ketorolac], and Vesicare [Solifenacin] MEDICATIONS fexofenadine (KATIA ALLERGY) 180 mg tablet Take 1 tablet by mouth once daily. ALPRAZolam (XANAX) 0.25 mg tablet Take 1 tablet by mouth once daily as needed for up to 90 days. omeprazole (PRILOSEC) 40 mg capsule Take 1 capsule by mouth once daily. cetirizine (ZYRTEC) 10 mg tablet Take 1 tablet by mouth once daily. levothyroxine (SYNTHROID) 150 mcg tablet Take 1 tablet by mouth daily before breakfast. ondansetron (ZOFRAN) 8 mg tablet Take 1 tablet by mouth every 8 hours as needed. busPIRone (BUSPAR) 15 mg tablet Take 1 tablet by mouth three times daily. methenam/sod phos/mblue/hyoscy (UROGESIC-BLUE ORAL) Take 1 capsule by mouth once daily. buPROPion XL (WELLBUTRIN XL) 300 mg 24 hr tablet Take 1 tablet by mouth once daily. mirabegron (MYRBETRIQ) 50 mg Tb24 Take 1 tablet by mouth once daily. SACCHAROMYCES BOULARDII (PROBIOTIC, S.BOULARDII, ORAL) Take by mouth once daily. FAMILY HISTORY Problem Relation Age of Onset Diabetes Father Hypertension Father Cancer Maternal Grandmother Lymphoma Heart Maternal Grandfather hypertension Hypertension Brother Social History Tobacco Use Smoking status: Never Smokeless tobacco: Never Vaping Use Vaping Use: Never used Substance Use Topics Alcohol use: Yes Comment: rarely Drug use: No BP 168/82 Pulse 86 Temp 36.4 C (97.5 F) Resp 18 Wt 107 kg (235 lb 14.3 oz) LMP 05/09/2018(Approximate) SpO2 98% BMI 41.79 kg/m Review of Systems Constitutional: Positive for malaise/fatigue. Negative for chills and fever. HENT: Positive for congestion and sinus pain. Negative for ear discharge, ear pain and sore throat. Eyes: Negative for blurred vision, pain, discharge and redness. Respiratory: Negative for cough, hemoptysis, sputum production, shortness of breath, wheezing and stridor. Cardiovascular: Negative for chest pain. Gastrointestinal: Negative for abdominal pain, diarrhea, nausea and vomiting. Genitourinary: Positive for dysuria, frequency and urgency. Negative for flank pain and hematuria. Musculoskeletal: Positive for myalgias. Skin: Negative for itching and rash. Neurological: Negative for dizziness and headaches. Objective Physical Exam Vitals and nursing note reviewed. Constitutional: General: She is not in acute distress. Appearance: She is not toxic-appearing or diaphoretic. HENT: Head: Normocephalic. Jaw: No trismus, tenderness, swelling or pain on movement. Right Ear: Hearing normal. No decreased hearing noted. No drainage, swelling or tenderness. Tympanic membrane is not perforated, erythematous or bulging. Left Ear: Hearing normal. No decreased hearing noted. No drainage, swelling or tenderness. Tympanicmembrane is not perforated, erythematous or bulging. Nose: Congestion present. Mouth/Throat: Mouth: Mucous membranes are moist. Pharynx: Oropharynx is clear. Uvula midline. No pharyngeal swelling, oropharyngeal exudate, posterior oropharyngeal erythema or uvula swelling. Tonsils: No tonsillar abscesses. Eyes: Conjunctiva/sclera: Conjunctivae normal. Pupils: Pupils are equal, round, and reactive to light. Cardiovascular: Rate and Rhythm: Normal rate and regular rhythm. Pulses: Normal pulses. Heart sounds: Normal heart sounds. Pulmonary: Effort: Pulmonary effort is normal. No tachypnea, accessory muscle usage or respiratory distress. Breath sounds: Normal breath sounds. No stridor. No wheezing, rhonchi or rales. Chest: Chest wall: No tenderness. Abdominal: General: Bowel sounds are normal. There is no distension. Palpations: Abdomen is soft. Abdomen is not rigid. Tenderness: There is no abdominal tenderness. There is no right CVA tenderness, left CVA tenderness, guarding or rebound. Negative signs include Meraz's sign and McBurney's sign. Musculoskeletal: General: No tenderness. Cervical back: Normal range of motion and neck supple. No edema, erythema, rigidity or tenderness. No pain with movement. Normal range of motion. Lymphadenopathy: Head: Right side of head: No submental, submandibular, tonsillar, preauricular, posterior auricular or occipital adenopathy. Left side of head: No submental, submandibular, tonsillar, preauricular, posterior auricular or occipital adenopathy. Cervical: No cervical adenopathy. Right cervical: No superficial or posterior cervical adenopathy. Left cervical: No superficial or posterior cervical adenopathy. Skin: General: Skin is warm and dry. Findings: No rash. Neurological: General: No focal deficit present. Mental Status: She is alert and oriented to person, place, and time. ASSESSMENT/PLAN: 1. Urinary urgency - ICD9: 788.63, ICD10: R39.15 (primary diagnosis) - UA DIP, URINE (POC) - URINE CULTURE 2. Viral illness - ICD9: 079.99, ICD10: B34.9 - COVID & INFLUENZA A/B & RSV NAAT, ROUTINE Patient nontoxic-appearing. No evidence of acute abdomen. Urine dip negative in office today. However with patient's history of UTIs and this feels similar we will treat empirically with Keflex. Do not take with urogesic blue. Additionally will test for COVID-19 with URI-like symptoms. If positive recommended antiviral treatment. Patient was educated on supportive therapies. Patient will follow up with primary care provider as needed. Patient was instructed to immediately proceed to emergency room for any new, worsening, or symptoms lasting longer than anticipated. The patient's clinical presentation is otherwise unremarkable at this time. Based on exam and clinical finding, the patient is stable for discharge. Plan of care was discussed with patient. Patient verbalizes understanding and agrees to plan of care. This note was generated using Focus IP software. It may contain errors in wording, punctuation, or spelling. Hang Parker APRN.BUD documented in this encounter[facility] History of Present illness Narrative* Sue Weber MD - 11/19/2023 1:20 PM EDT Chief Complaint Patient presents with: F/U 1 month HPI Payton Mcqueen is a 58 year old female who presents here today for follow up. 1 month follow up on labs and anxiety. Overall reports that everything has improved about 60-70%. Doing some home updates, no vacations planned. Currently on summer break from the [employer]. SHEYLA: Pt was starting counseling last visit and that we would hold off on adding SSRI. Met with an old colleague of hers who used to work in Counseling. They used to work together in a [facility]. They talked and she gave her some advice on some strategies to help manage anxiety better. She was advised not to increase her Xanax usage, currently taking Xanax 0.25 mg once daily faithfully along with Wellbutrin xl 300 mg once daily and Buspar 15 mg 1 pill TID. Sleep - Reports her sleep is off schedule again, trying to do more activity to make her tired. Is staying up later and later. Doesn't want to depend on a sleep aid. Trying to avoid/decrease caffeine or do activities through out the day to make he tired. Had elevated Alkaline phosphatase levels and LFTs. Was to have repeat labs in 1 month. Slight decrease in labs but still elevated. Derm - Recurring rash (fungal rash). Is following with Dermatology and has been told that there's rashes that have occurred after having Covid. Pt is taking Cetirizine 10 mg once daily which does seem to help. Pt states she was doing better, until she fell down recently when she was outside watering her plants. Got tripped up in the hose and her dog was outside. Fell backwards, hitting her tailbone. Still moving slow, but improving. Denies that she feels she broke anything. Still has a lot of soreness/pain in her tailbone. Pt states she's not avoiding doing a colonoscopy, but has not yet scheduled due to having multiple medical appt's. Past medical history, appointments, medications, allergies reviewed. Previous Medical History PAST MEDICAL HISTORY Diagnosis Date Acute gastritis without mention of hemorrhage Anxiety Benign neoplasm of stomach Cervical disc disorder with radiculopathy 02/18/2010 Cyst of ovary 01/01/2015 [facility] - see scanned documents Depressive disorder, not elsewhere classified Essential thrombocythemia (HCC) 06/02/2016 GERD (gastroesophageal reflux disease) Hypertension 08/28/11 IC (interstitial cystitis) Impaired fasting glucose 04/02/2010 Lumbar disc disease with radiculopathy 11/15/2010 Metabolic syndrome X Morbid obesity with BMI of 40.0-44.9, adult (HCC) 08/29/2013 Renal cyst, left 07/03/2016 18 mm, 06/18/16 Sciatica SI (sacroiliac) joint dysfunction 06/04/2011 Thoracolumbar back pain 07/20/2013 Unspecified hypothyroidism Urinary calculus, unspecified Renal stones Previous Surgical History PAST SURGICAL HISTORY Procedure Laterality Date CHOLECYSTECTOMY 1991 Cholecystectomy CYSTOSCOPY,DIL BLADDER,LOCAL ANESTH 01/18/14 EGD TRANSORAL BIOPSY SINGLE/MULTIPLE 04/09/2007 gastritis, gastric polyps KIDNEY SURGERY HX 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 6 weeks Erythromycin GI Upset Lisinopril Unknown Cough, hypotension Metformin GI Upset Mobic [Meloxicam] Vomiting Prochlorperazine Mental Status Change Agitation, felt ill Toradol [Ketorolac] Vomiting Vesicare [Solifenac* Rash Current Medications Current Outpatient Medications on File Prior to Visit Medication Sig fexofenadine (KATIA ALLERGY) 180 mg tablet Take 1 tablet by mouth once daily. ALPRAZolam (XANAX) 0.25 mg tablet Take 1 tablet by mouth once daily as needed for up to 90 days. omeprazole (PRILOSEC) 40 mg capsule Take 1 capsule by mouth once daily. cetirizine (ZYRTEC) 10 mg tablet Take 1 tablet by mouth once daily. levothyroxine (SYNTHROID) 150 mcg tablet Take 1 tablet by mouth daily before breakfast. ondansetron (ZOFRAN) 8 mg tablet Take 1 tablet by mouth every 8 hours as needed. busPIRone (BUSPAR) 15 mg tablet Take 1 tablet by mouth three times daily. methenam/sod phos/mblue/hyoscy (UROGESIC-BLUE ORAL) Take 1 capsule by mouth once daily. buPROPion XL (WELLBUTRIN XL) 300 mg 24 hr tablet Take 1 tablet by mouth once daily. mirabegron (MYRBETRIQ) 50 mg Tb24 Take 1 tablet by mouth once daily. SACCHAROMYCES BOULARDII (PROBIOTIC, S.BOULARDII, ORAL) Take by mouth once daily. No current facility-administered medications on file prior to visit. Social History Social History Tobacco Use Smoking status: Never Smokeless tobacco: Never Vaping Use Vaping Use: Never used Substance Use Topics Alcohol use: Yes Comment: rarely Drug use: No EXAM: BP 140/92 Pulse 80 Resp 18 Wt 108.1 kg (238 lb 6.4 oz) LMP 05/09/2018 (Approximate) BMI 42.23 kg/m General Appearance: Well appearing, alert, in no acute distress, well-hydrated, well nourished. andObese. Lungs: Lungs clear to auscultation. No wheezing, rhonchi, rales.. Heart: RRR without murmur, gallop, or rubs. No ectopy. Health Maintenance List Hepatitis B Vaccine(1 of 3 - 19+ 3-dose series) Never done Colorectal Cancer Screening Never done Shingrix Vaccine(1 of 2) Never done BP Controlled (<130/80) due on 10/10/2018 DTaP,Tdap,Td Vaccine(6 - Td or Tdap) due on 12/20/2018 Cervical Cancer Screening due on 04/11/2020 Covid-19 Vaccine( season) due on 01/23/2023 Behavioral Health Screening Never done Mammogram Screening due on 01/01/2024 Hepatitis C Screening due on 10/15/2024 HIV Screening due on 10/15/2024 Influenza Vaccine(Season Ended) due on 01/24/2024 Annual PCP Team Chronic Disease Visit due on 10/15/2024 Diabetes Screening due on 08/11/2026 Lipid Screening due on 12/25/2027 HPV Vaccine Aged Out Data reviewed Appointment on 11/16/2023 Component Date Value Albumin 11/16/2023 4.2 Bilirubin, Total 11/16/2023 0.7 Bilirubin, Conjugated 11/16/2023 0.3 (H) Alkaline Phosphatase 11/16/2023 179 (H) AST 11/16/2023 34 ALT 11/16/2023 21 Protein, Total 11/16/2023 6.5 Alkaline Phosphatase 11/16/2023 179 (H) Alk Phos Bone % 11/16/2023 41.9 Bone Fraction 11/16/2023 75.0 (H) Alk Phos Liver % 11/16/2023 45.7 Liver Fraction 11/16/2023 81.8 (H) Alk Phos Intestine % 11/16/2023 12.4 Intestine Fraction 11/16/2023 22.2 (H) Appointment on 10/12/2023 Component Date Value Alkaline Phosphatase 10/12/2023 217 (H) Alk Phos Bone % 10/12/2023 39.7 Bone Fraction 10/12/2023 86.1 (H) Alk Phos Liver % 10/12/2023 47.8 Liver Fraction 10/12/2023 103.7 (H) Alk Phos Intestine % 10/12/2023 12.5 Intestine Fraction 10/12/2023 27.1 (H) Appointment on 10/08/2023 Component Date Value CRP 10/08/2023 0.7 Albumin 10/08/2023 4.1 Bilirubin, Total 10/08/2023 0.7 Bilirubin, Conjugated 10/08/2023 0.2 (H) Alkaline Phosphatase 10/08/2023 223 (H) AST 10/08/2023 41 (H) ALT 10/08/2023 32 Protein, Total 10/08/2023 6.9 WBC 10/08/2023 31.49 (H) RBC 10/08/2023 7.72 (H) Hemoglobin 10/08/2023 16.5 (H) Hematocrit 10/08/2023 57.5 (H) MCV 10/08/2023 74.5 (L) MCH 10/08/2023 21.4 (L) MCHC 10/08/2023 28.7 (L) RDW-CV 10/08/2023 24.7 (H) Platelet Count 10/08/2023 607 (H) MPV 10/08/2023 9.8 NRBC 10/08/2023 0.0 Absolute nRBC 10/08/2023 <0.01 Neutrophils % 10/08/2023 89.9 Abs Neut (Segs + Bands) 10/08/2023 28.31 (H) Lymphocytes % 10/08/2023 5.1 Abs Lymph (Normal + Reac* 10/08/2023 1.61 Monocytes % 10/08/2023 0.8 Abs [place] 10/08/2023 0.25 Eosin% 10/08/2023 1.7 Abs Eosin 10/08/2023 0.54 (H) Basophils % 10/08/2023 2.5 Abs Baso 10/08/2023 0.79 (H) Platelet Estimate 10/08/2023 Increased Giant Platelets 10/08/2023 Occasional Red Cell Morph 10/08/2023 Reviewed: see results of individual morphologies Polychromasia 10/08/2023 Slight Anisocytosis 10/08/2023 Present Ovalocytes 10/08/2023 Few RBC Fragments 10/08/2023 Few (A) Diff Type 10/08/2023 Manual Iron 10/08/2023 24 (L) TIBC 10/08/2023 415 (H) Transferrin Saturation 10/08/2023 5.8 (L) Ferritin 10/08/2023 27.8 Vitamin B12 10/08/2023 878 ASSESSMENT/PLAN: 1. Anxiety about health - ICD9: 799.29, ICD10: R45.89 (primary diagnosis) - Continue current medication regimen. 2. Elevated alkaline phosphatase level - ICD9: 790.5, ICD10: R74.8 - Continue to monitor - Stable 3. Elevated LFTs - ICD9: 790.6, ICD10: R79.89 - Continue to monitor - Stable 4. Dermatitis - ICD9: 692.9, ICD10: L30.9 - discussed skin care of rash - follow up if symptoms persist or worsen. 5. Primary insomnia - ICD9: 307.42, ICD10: F51.01 - Discussed sleep tactics to help with sleep. - Related to anxiety 6. Myeloproliferative disorder Recheck CBC in 3 months 3 mo f/u with labs. I agree with the Chief Complaint, ROS, and Past Histories independently gathered by the clinical data support analyst and the remaining scribed note accurately describes my personal service to the patient. Medical Decision Making: Problems: Moderate: 2+ stable chronic illnesses Data: Unique test(s) ordered: 2 Risk: Moderate: Drug management Medical Decision Making Level: 4 - Moderate Sue Weber MD The documentation for this note was completed by Mavis Shen MA acting as scribe for Sue Weber MD. November 19, 2023 1:21 PM. Mavis Shen MA documented in this encounterMer[facility]06-27-[facility] NoteHNO ID: [id number] Author: SUE WEBER MD Service: ? Author Type: Physician Type: Progress Notes Filed: 11/19/2023 13:51 Note Text: Chief Complaint Patient presents with: F/U 1 month HPI Payton Mcqueen is a 58 year old female who presents here today for follow up. 1 month follow up on labs and anxiety. Overall reports that everything has improved about 60-70%. Doing some home updates, no vacations planned. Currently on summer break from the [employer]. SHEYLA: Pt was starting counseling last visit and that we would hold off on adding SSRI. Met with an old colleague of hers who used to work in Counseling. They used to work together in a [facility]. They talked and she gave her some advice on some strategies to help manage anxiety better. She was advised not to increase her Xanax usage, currently taking Xanax 0.25 mg once daily faithfully along with Wellbutrin xl 300 mg once daily and Buspar 15 mg 1 pill TID. Sleep - Reports her sleep is off schedule again, trying to do more activity to make her tired. Is staying up later and later. Doesn't want to depend on a sleep aid. Trying to avoid/decrease caffeine or do activities through out the day to make he tired. Had elevated Alkaline phosphatase levels and LFTs. Was to have repeat labs in 1 month. Slight decrease in labs but still elevated. Derm - Recurring rash (fungal rash). Is following with Dermatology and has been told that there's rashes that have occurred after having Covid. Pt is taking Cetirizine 10 mg once daily which does seem to help. Pt states she was doing better, until she fell down recently when she was outside watering her plants. Got tripped up in the hose and her dog was outside. Fell backwards, hitting her tailbone. Still moving slow, but improving. Denies that she feels she broke anything. Still has a lot of soreness/pain in her tailbone. Pt states she's not avoiding doing a colonoscopy, but has not yet scheduled due to having multiple medical appt's. Past medical history, appointments, medications, allergies reviewed. Previous Medical History PAST MEDICAL HISTORY Diagnosis Date Acute gastritis without mention of hemorrhage Anxiety Benign neoplasm of stomach Cervical disc disorder with radiculopathy 02/18/2010 Cyst of ovary 01/01/2015 [facility] - see scanned documents Depressive disorder, not elsewhere classified Essential thrombocythemia (HCC) 06/02/2016 GERD (gastroesophageal reflux disease) Hypertension 08/28/11 IC (interstitial cystitis) Impaired fasting glucose 04/02/2010 Lumbar disc disease with radiculopathy 11/15/2010 Metabolic syndrome X Morbid obesity with BMI of 40.0-44.9, adult (HCC) 08/29/2013 Renal cyst, left 07/03/2016 18 mm, 06/18/16 Sciatica SI (sacroiliac) joint dysfunction 06/04/2011 Thoracolumbar back pain 07/20/2013 Unspecified hypothyroidism Urinary calculus, unspecified Renal stones Previous Surgical History PAST SURGICAL HISTORY Procedure Laterality Date CHOLECYSTECTOMY 1991 Cholecystectomy CYSTOSCOPY,DIL BLADDER,LOCAL ANESTH 01/18/14 EGD TRANSORAL BIOPSY SINGLE/MULTIPLE 04/09/2007 gastritis, gastric polyps KIDNEY SURGERY HX 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 6 weeks Erythromycin GI Upset Lisinopril Unknown Cough, hypotension Metformin GI Upset Mobic [Meloxicam] Vomiting Prochlorperazine Mental Status Change Agitation, felt ill Toradol [Ketorolac] Vomiting Vesicare [Solifenac* Rash Current Medications Current Outpatient Medications on File Prior to Visit Medication Sig fexofenadine (KATIA ALLERGY) 180 mg tablet Take 1 tablet by mouth once daily. ALPRAZolam (XANAX) 0.25 mg tablet Take 1 tablet by mouth once daily as needed for up to 90 days. omeprazole (PRILOSEC) 40 mg capsule Take 1 capsule by mouth once daily. cetirizine (ZYRTEC) 10 mg tablet Take 1 tablet by mouth once daily. levothyroxine (SYNTHROID) 150 mcg tablet Take 1 tablet by mouth daily before breakfast. ondansetron (ZOFRAN) 8 mg tablet Take 1 tablet by mouth every 8 hours as needed. busPIRone (BUSPAR) 15 mg tablet Take 1 tablet by mouth three times daily. methenam/sod phos/mblue/hyoscy (UROGESIC-BLUE ORAL) Take 1 capsule by mouth once daily. buPROPion XL (WELLBUTRIN XL) 300 mg 24 hr tablet Take 1 tablet by mouth once daily. mirabegron (MYRBETRIQ) 50 mg Tb24 Take 1 tablet (more content not included)... [facility]05-24[facility] Instructions* Patient Instructions* Mavis Shen MA - 10/16/2023 8:41 AM EDT Check labs 1 week prior to your visit. Check with insurance to see who is covered under your plan for Counseling. documented in this encounterMer[facility]05-24-2024 History of Present illness Narrative* Sue Weber MD - 10/16/2023 8:40 AM EDT Chief Complaint Patient presents with: Anxiety HPI Payton Mcqueen is a 58 year old female who presents here today for an acute visit. Pt scheduled today for an acute visit. Pt seen by Carly Lewis CNP on 10/09/23 for an ER follow up due to allergic reaction. Today by feeling extremely shaky and having a lot of anxiety. Reports she is stressed out and is constantly worrying about her health. She is constantly worrying she feels her heart racing. Reports symptoms have worsened since having Covid back to back months in April to May. Losing her Mother during that time. She was started on Xanax 0.25 mg 1 tablet by mouth once daily in May 2023 to help for short term anxiety, and not chcf use to get through the loss of her Mother. Since that time she has not improved. She also takes Buspar 15 mg 1 tab po TID prn and Wellbutrin XL 300 mg once daily. Pt does not do Counseling, but has thought about it. Has never seen Psychiatry, despite having longstanding hx of anxiety. Took Paxil quite some time ago, but was changed to Wellbutrin. Ptreports she doesn't want to take a medication that will make her gain weight. Rash - Followed up with [facility], rash was narrowed down to a chemical reaction. Had to change everything at home with what she was using. Wearing gloves to do dishes. They told her this was really common with people who had Covid. States her rash was not fully flared up when she went so it was hard to determine. So if it flares up, they are going to do a same day visit and biopsy the area. Concerned about lab results that was done by Carly Lewis CNP. Her Alkaline Phosphate was elevated, which concerns her. All these things coming up makes her stress even more. HM - Declines Hep C/HIV screening. Past medical history, appointments, medications, allergies reviewed. Previous Medical History PAST MEDICAL HISTORY Diagnosis Date Acute gastritis without mention of hemorrhage Anxiety Benign neoplasm of stomach Cervical disc disorder with radiculopathy 02/18/2010 Cyst of ovary 01/01/2015 [facility] - see scanned documents Depressive disorder, not elsewhere classified Essential thrombocythemia (HCC) 06/02/2016 GERD (gastroesophageal reflux disease) Hypertension 08/28/11 IC (interstitial cystitis) Impaired fasting glucose 04/02/2010 Lumbar disc disease with radiculopathy 11/15/2010 Metabolic syndrome X Morbid obesity with BMI of 40.0-44.9, adult (HCC) 08/29/2013 Renal cyst, left 07/03/2016 18 mm, 06/18/16 Sciatica SI (sacroiliac) joint dysfunction 06/04/2011 Thoracolumbar back pain 07/20/2013 Unspecified hypothyroidism Urinary calculus, unspecified Renal stones Previous Surgical History PAST SURGICAL HISTORY Procedure Laterality Date CHOLECYSTECTOMY 1991 Cholecystectomy CYSTOSCOPY,DIL BLADDER,LOCAL ANESTH 01/18/14 EGD TRANSORAL BIOPSY SINGLE/MULTIPLE 04/09/2007 gastritis, gastric polyps KIDNEY SURGERY HX 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 6 weeks Erythromycin GI Upset Lisinopril Unknown Cough, hypotension Metformin GI Upset Mobic [Meloxicam] Vomiting Prochlorperazine Mental Status Change Agitation, felt ill Toradol [Ketorolac] Vomiting Vesicare [Solifenac* Rash Current Medications Current Outpatient Medications on File Prior to Visit Medication Sig fexofenadine (KATIA ALLERGY) 180 mg tablet Take 1 tablet by mouth once daily. ALPRAZolam (XANAX) 0.25 mg tablet Take 1 tablet by mouth once daily as needed for up to 90 days. omeprazole (PRILOSEC) 40 mg capsule Take 1 capsule by mouth once daily. cetirizine (ZYRTEC) 10 mg tablet Take 1 tablet by mouth once daily. (Patient not taking: Reported on 10/09/2023) levothyroxine (SYNTHROID) 150 mcg tablet Take 1 tablet by mouth daily before breakfast. ondansetron (ZOFRAN) 8 mg tablet Take 1 tablet by mouth every 8 hours as needed. busPIRone (BUSPAR) 15 mg tablet Take 1 tablet by mouth three times daily. methenam/sod phos/mblue/hyoscy (UROGESIC-BLUE ORAL) Take 1 capsule by mouth once daily. buPROPion XL (WELLBUTRIN XL) 300 mg 24 hr tablet Take 1 tablet by mouth once daily. mirabegron (MYRBETRIQ) 50 mg Tb24 Take 1 tablet by mouth once daily. SACCHAROMYCES BOULARDII (PROBIOTIC, S.BOULARDII, ORAL) Take by mouth once daily. No current facility-administered medications on file prior to visit. Social History Social History Tobacco Use Smoking status: Never Smokeless tobacco: Never Vaping Use Vaping Use: Never used Substance Use Topics Alcohol use: Yes Comment: rarely Drug use: No EXAM: BP 156/86 Pulse 80 Resp 18 Wt 105.9 kg (233 lb 6.4 oz) LMP 05/09/2018 (Approximate) BMI 41.34 kg/m General Appearance: Well appearing, alert, in no acute distress, well-hydrated, well nourished. andObese. Lungs: Lungs clear to auscultation. No wheezing, rhonchi, rales.. Heart: RRR without murmur, gallop, or rubs. No ectopy. Health Maintenance List Hepatitis C Screening Never done HIV Screening Never done Hepatitis B Vaccine(1 of 3 - 19+ 3-dose series) Never done Colorectal Cancer Screening Never done Shingrix Vaccine(1 of 2) Never done BP Controlled (<130/80) due on 10/10/2018 DTaP,Tdap,Td Vaccine(6 - Td or Tdap) due on 12/20/2018 HPV Testing due on 04/10/2020 Pap Testing due on 04/11/2020 Covid-19 Vaccine(2022- season) due on 01/23/2023 Behavioral Health Screening Never done Mammogram Screening due on 01/01/2024 Influenza Vaccine(Season Ended) due on 01/24/2024 Annual PCP Team Chronic Disease Visit due on 10/08/2024 Diabetes Screening due on 08/11/2026 Lipid Screening due on 12/25/2027 HPV Vaccine Aged Out Data reviewed Appointment on 10/12/2023 Component Date Value Alkaline Phosphatase 10/12/2023 217 (H) Alk Phos Bone % 10/12/2023 39.7 Bone Fraction 10/12/2023 86.1 (H) Alk Phos Liver % 10/12/2023 47.8 Liver Fraction 10/12/2023 103.7 (H) Alk Phos Intestine % 10/12/2023 12.5 Intestine Fraction 10/12/2023 27.1 (H) Appointment on 10/08/2023 Component Date Value CRP 10/08/2023 0.7 Albumin 10/08/2023 4.1 Bilirubin, Total 10/08/2023 0.7 Bilirubin, Conjugated 10/08/2023 0.2 (H) Alkaline Phosphatase 10/08/2023 223 (H) AST 10/08/2023 41 (H) ALT 10/08/2023 32 Protein, Total 10/08/2023 6.9 WBC 10/08/2023 31.49 (H) RBC 10/08/2023 7.72 (H) Hemoglobin 10/08/2023 16.5 (H) Hematocrit 10/08/2023 57.5 (H) MCV 10/08/2023 74.5 (L) MCH 10/08/2023 21.4 (L) MCHC 10/08/2023 28.7 (L) RDW-CV 10/08/2023 24.7 (H) Platelet Count 10/08/2023 607 (H) MPV 10/08/2023 9.8 NRBC 10/08/2023 0.0 Absolute nRBC 10/08/2023 <0.01 Neutrophils % 10/08/2023 89.9 Abs Neut (Segs + Bands) 10/08/2023 28.31 (H) Lymphocytes % 10/08/2023 5.1 Abs Lymph (Normal + Reac* 10/08/2023 1.61 Monocytes % 10/08/2023 0.8 Abs [place] 10/08/2023 0.25 Eosin% 10/08/2023 1.7 Abs Eosin 10/08/2023 0.54 (H) Basophils % 10/08/2023 2.5 Abs Baso 10/08/2023 0.79 (H) Platelet Estimate 10/08/2023 Increased Giant Platelets 10/08/2023 Occasional Red Cell Morph 10/08/2023 Reviewed: see results of individual morphologies Polychromasia 10/08/2023 Slight Anisocytosis 10/08/2023 Present Ovalocytes 10/08/2023 Few RBC Fragments 10/08/2023 Few (A) Diff Type 10/08/2023 Manual Iron 10/08/2023 24 (L) TIBC 10/08/2023 415 (H) Transferrin Saturation 10/08/2023 5.8 (L) Ferritin 10/08/2023 27.8 Vitamin B12 10/08/2023 878 ASSESSMENT/PLAN: 1. Anxiety - ICD9: 300.00, ICD10: F41.9 (primary diagnosis) - Start Counseling. - Discussed not increasing Xanax. - Exercise - Continue current medication regimen; will hold off on adding SSRI at this time; she is concerned about changing medications. 2. Anxiety about health - ICD9: 799.29, ICD10: R45.89 - As noted above 3. Elevated alkaline phosphatase level - ICD9: 790.5, ICD10: R74.8 - Recheck labs prior to next visit. - HEPATIC FUNCTION PNL - ALK PHOS ISOENZYM BL 4. Elevated LFTs - ICD9: 790.6, ICD10: R79.89 - Recheck labs prior to next visit. - HEPATIC FUNCTION PNL - ALK PHOS ISOENZYM BL 5. Elevated blood pressure reading without diagnosis of hypertension - ICD9: 796.2, ICD10: R03.0 - More than likely related to increased anxiety Follow up in 1 month. Labs prior to your visit. I agree with the Chief Complaint, ROS, and Past Histories independently gathered by the clinical data support analyst and the remaining scribed note accurately describes my personal service to the patient. Medical Decision Making: Problems: Moderate: 1+ chronic illnesses with change Data: Unique test(s) ordered: 2 Risk: Moderate: Drug management Medical Decision Making Level: 4 - Moderate Sue Weber MD The documentation for this note was completed by Mavis Shen MA acting as scribe for Sue Weber MD. October 16, 2023 8:46 AM. Mavis Shen MA documented in this encounterMer[facility]05-17-[facility] Instructions* Patient Instructions* Carly Lewis APRN.BUD - 10/09/2023 10:09 AM EDT Get the labwork. You can try the katia. I'll let you know when I receive the labs. documented in this encounterMercy [facility]05-17-2024 Telephone encounter Note * Telephone Encounter - Jovi Florian LPN - 10/09/2023 9:45 AM EDT Pt scheduled appt with provider for today. Jovi Florian LPN [facility]05-17-[facility]24 Miscellaneous Notes* Telephone Encounter - Jovi Florian LPN - 10/09/2023 9:45 AM EDT Pt scheduled appt with provider for today. Jovi Florian LPN documented in this encounterMercy [facility]05-17-2024 History of Present illness Narrative* Carly Lewis APRN.BUD - 10/09/2023 9:35 AM EDT This is a 58 year old female who presents today with: Patient presents with: ER F/U HISTORY OF PRESENT ILLNESS: Payton Mcqueen is a 58 year old female. Patient presents with: ER F/U Pt presents today to follow-up on recent labs. Recently was back in the ER with another allergic reaction. She went to the emergency room on 09/29/2023 with complaints of feeling hot and itchy and burning everywhere in her body. It was worse in her face and scalp and groin areas. She has been getting welts and hives. The episodes tend to last for 4 to 5 days. She had previouslyreceived steroids which did help calm things down. She tried Benadryl which did not help as much as she had had hoped. She had a dose of Kenalog approximately 3 to 4 weeks prior to this presentation. It was repeated atthis emergency room visit. Patient reports that she went home and went to sleep and when she awoke she notices significant improvement in the swelling of her hands. 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 Food allergy testing by ENT was negative. Her labwork showed an elevated alk phos. She is concerned about this. She has been elevated in the past, but now currently at 223, which is the highest it has been. She is having a lot of anxiety over this. PAST MEDICAL HISTORY: PAST MEDICAL HISTORY Diagnosis Date Acute gastritis without mention of hemorrhage Anxiety Benign neoplasm of stomach Cervical disc disorder with radiculopathy 02/18/2010 Cyst of ovary 01/01/2015 [facility] - see scanned documents Depressive disorder, not elsewhere classified Essential thrombocythemia (HCC) 06/02/2016 GERD (gastroesophageal reflux disease) Hypertension 08/28/11 IC (interstitial cystitis) Impaired fasting glucose 04/02/2010 Lumbar disc disease with radiculopathy 11/15/2010 Metabolic syndrome X Morbid obesity with BMI of 40.0-44.9, adult (HCC) 08/29/2013 Renal cyst, left 07/03/2016 18 mm, 06/18/16 Sciatica SI (sacroiliac) joint dysfunction 06/04/2011 Thoracolumbar back pain 07/20/2013 Unspecified hypothyroidism Urinary calculus, unspecified Renal stones PAST SURGICAL HISTORY Procedure Laterality Date CHOLECYSTECTOMY 1991 Cholecystectomy CYSTOSCOPY,DIL BLADDER,LOCAL ANESTH 01/18/14 EGD TRANSORAL BIOPSY SINGLE/MULTIPLE 04/09/2007 gastritis, gastric polyps KIDNEY SURGERY HX 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 Valadez PAST SURGICAL HISTORY OF WISDOM TEETH EXTRACTIONS PAST SURGICAL HISTORY OF 05/2012 bladder hydrodistension X 2 PAST SURGICAL HISTORY OF 2015 pain injection lumbar- multiple PAST SURGICAL HISTORY OF Cyst removed from head ALLERGIES Celebrex [Celecoxib], Erythromycin, Lisinopril, Metformin, Mobic [Meloxicam], Prochlorperazine, Toradol [Ketorolac], and Vesicare [Solifenacin] MEDICATIONS Current Outpatient Medications Medication Sig ALPRAZolam (XANAX) 0.25 mg tablet Take 1 tablet by mouth once daily as needed for up to 90 days. omeprazole (PRILOSEC) 40 mg capsule Take 1 capsule by mouth once daily. levothyroxine (SYNTHROID) 150 mcg tablet Take 1 tablet by mouth daily before breakfast. ondansetron (ZOFRAN) 8 mg tablet Take 1 tablet by mouth every 8 hours as needed. busPIRone (BUSPAR) 15 mg tablet Take 1 tablet by mouth three times daily. methenam/sod phos/mblue/hyoscy (UROGESIC-BLUE ORAL) Take 1 capsule by mouth once daily. buPROPion XL (WELLBUTRIN XL) 300 mg 24 hr tablet Take 1 tablet by mouth once daily. mirabegron (MYRBETRIQ) 50 mg Tb24 Take 1 tablet by mouth once daily. SACCHAROMYCES BOULARDII (PROBIOTIC, S.BOULARDII, ORAL) Take by mouth once daily. cetirizine (ZYRTEC) 10 mg tablet Take 1 tablet by mouth once daily. (Patient not taking: Reported on 10/09/2023) No current facility-administered medications for this visit. FAMILY HISTORY Problem Relation Age of Onset Diabetes Father Hypertension Father Cancer Maternal Grandmother Lymphoma Heart Maternal Grandfather hypertension Hypertension Brother Social History Tobacco Use Smoking status: Never Smokeless tobacco: Never Vaping Use Vaping Use: Never used Substance Use Topics Alcohol use: Yes Comment: rarely Drug use: No EXAM: BP 167/87 Pulse 83 Ht 160 cm (5' 3) Wt 106.1 kg (234 lb) LMP 05/09/2018 (Approximate) BMI 41.45 kg/m PHYSICAL EXAM: General Appearance: Well appearing, alert, in no acute distress, well-hydrated, well nourished.. Skin: Skin color, texture, turgor normal, no suspicious rashes or lesions. Head: Normocephalic, no masses, lesions, tenderness or abnormalities. Eyes: Anicteric sclera. Extraocular movements are intact. . Neurologic: Gait normal. ASSESSMENT/PLAN: 1. Elevated alkaline phosphatase level - ICD9: 790.5, ICD10: R74.8 (primary diagnosis) Reassured patient. Will go ahead and get alk phos isoenzyme. Discussed potential results and additional testing that may be needed. - ALK PHOS ISOENZYM BL 2. Dermatitis - ICD9: 692.9, ICD10: L30.9 Was previously suggested by one of her providers to try Katia to see if she responds better to this than the Zyrtec. Requesting prescription be sent to the pharmacy. - FEXOFENADINE 180 MG TABLET Discussed treatment plan and patient voices understanding. Patient's questions answered appropriately. Medications and potential side effects were discussed and patient voices understanding. Return to the office as scheduled or as needed for worsening/no improvement. Carly Lewis APRN.CLERICAL SUPERVISOR documented in this encounterMer[facility]05-09-2024 Telephone encounter Note * Telephone Encounter - Sue Weber MD - 10/01/2023 11:53 AM EDT OK to refill as ordered Sue Weber MD [facility]05-09-2024 Miscellaneous Notes* Telephone Encounter - Sue Weber MD - 10/01/2023 11:53 AM EDT OK to refill as ordered Sue Weber MD * Telephone Encounter - Andreina Caicedo MA - 10/01/2023 11:27 AM EDT Patient has been identified by name and date of : Yes, Provider Sue Weber MD Date 2023 Time 11:27 AM Patient phones for refill(s): Requested Prescriptions Pending Prescriptions Disp Refills omeprazole (PRILOSEC) 40 mg capsule 90 capsule 3 Sig: Take 1 capsule by mouth once daily. Date of last office visit in primary care: 08/27/23 Distance visit Date of next office visit in primary care: none Please advise. Thank you. Andreina Caicedo MA. documented in this encounterMer[facility]05-09-2024 Telephone encounter Note * Telephone Encounter - Sue Weber MD - 10/01/2023 11:52 AM EDT OK to refill as ordered Sue Weber MD [facility]05-09-2024 Miscellaneous Notes* Telephone Encounter - Sue Weber MD - 10/01/2023 11:52 AM EDT OK to refill as ordered Sue Weber MD * Telephone Encounter - Andreina Caicedo MA - 10/01/2023 11:25 AM EDT Patient has been identified by name and date of : Yes, Provider Sue Weber MD Date 2023 Time 11:25 AM Patient phones for refill(s): Requested Prescriptions Pending Prescriptions Disp Refills ALPRAZolam (XANAX) 0.25 mg tablet 30 tablet 0 Sig: Take 1 tablet by mouth once daily as needed for up to 30 days. Date of last office visit in primary care: 08/27/23 Distance visit Date of next office visit in primary care: none Xanax #30 with 0 reifll on 08/27/23 Please advise. Thank you. Andreina Caicedo MA. documented in this encounterMer[facility]05-09-2024 Telephone encounter Note * Telephone Encounter - Andreina Caicedo MA - 10/01/2023 11:27 AM EDT Patient has been identified by name and date of : Yes, Provider Sue Weber MD Date 2023 Time 11:27 AM Patient phones for refill(s): Requested Prescriptions Pending Prescriptions Disp Refills omeprazole (PRILOSEC) 40 mg capsule 90 capsule 3 Sig: Take 1 capsule by mouth once daily. Date of last office visit in primary care: 08/27/23 Distance visit Date of next office visit in primary care: none Please advise. Thank you. Andreina Caicedo MA. [facility] Telephone encounter Note* Telephone Encounter - Andreina Caicedo MA - 10/01/2023 11:25 AM EDT Patient has been identified by name and date of : Yes, Provider Sue Weber MD Date 2023 Time 11:25 AM Patient phones for refill(s): Requested Prescriptions Pending Prescriptions Disp Refills ALPRAZolam (XANAX) 0.25 mg tablet 30 tablet 0 Sig: Take 1 tablet by mouth once daily as needed for up to 30 days. Date of last office visit in primary care: 08/27/23 Distance visit Date of next office visit in primary care: none Xanax #30 with 0 reifll on 08/27/23 Please advise. Thank you. Andreina Caicedo MA. [facility]04-18-[facility] Miscellaneous Notes* Telephone Encounter - Andreina Caicedo MA - 09/10/2023 2:43 PM EDT Pt notified. She called [facility] and is scheduled with them on 10/01/23. Referral, med list, insurance card, demo faxed to [facility]. Andreina Caicedo MA * Telephone Encounter - Sue Weber MD - 09/10/2023 2:29 PM EDT I agree with Derm consult; order filed Sue Weber MD * Telephone Encounter - Yanet Pimentel LPN - 09/10/2023 11:07 AM EDT Patient is complaining of red raised rash on legs, face , scalp also dry and itchy.Patient was treated with prednisone and it made her sick then went to ER last night given kenolog. Patient stated that it helped a little. Er advised going to see Derm. PATIENT is requesting a consult to Derm at the [facility]. Patient is willing to travel if she has to. Please advise further. Yanet Pimentel LPN documented in this encounterMercy [facility]04-15-2024 Miscellaneous Notes* Telephone Encounter - Mavis Shen MA - 09/07/2023 8:31 AM EDT See update from pt and advise. Mavis Shen MA * Telephone Encounter - Mavis Shen MA - 08/31/2023 4:19 PM EDT Pt requesting a refill on Diflucan. Last rx 08/18/23 #10 w/0. Pended rx. Mavis hSen MA documented in this encounterMercy [facility]04-04-2024 History of Present illness Narrative* Sue Weber MD - 08/27/2023 10:40 AM EDT Chief Complaint Patient presents with: Follow Up: Weak, chills, fatigue, sore throat and low grade fever HPI:This Team Access Model visit is a virtual encounter. It required patient- provider interaction for the medical decision making as documented below. Patient was offered a virtual/telemedicine appointment in lieu of an office visit due to recommendations to reduce patient exposure to COVID-19. Patient is aware of limitations of performing the visit without a face to face visit in the office setting and agrees. I have communicated my name and active licensure. The patient's identity and physical location wereverified at the time of this visit. Either the patient or their legal sales and service representative has been informed of the risks and benefits of -- and alternatives to -- treatment through a remote evaluation andconsents to proceed with the evaluation remotely. Pt completing a virtual visit today for a follow up visit. Pt needing a work note due to feeling unwell, has not been to work this week. Pt c/o of low grade fever, weakness and chills, fatigue and continued sore throat. Was seen on 08/21/23 for swollen gland,neck pain with some ear discomfort and throat discomfort. States that over the weekend symptoms were not improving and have seem to have gotten worse such as sore throat, fatigue and continued low grade fever. Swollen glands have improved. Gets sweats and chills, highest temp was 100.2. Pt was given Augmentin 875-125 mg 1 tab po bid. Wonders if some symptoms are allergy related. Pt reports that she's concerned due to re-occurring low grade fever, fatigue and having Covid two months in a row. Pt follows with Hem/Onc, most recent labs were improved over previous. Past medical history, appointments, medications, allergies reviewed. Previous Medical History PAST MEDICAL HISTORY Diagnosis Date Acute gastritis without mention of hemorrhage Anxiety Benign neoplasm of stomach Cervical disc disorder with radiculopathy 02/18/2010 Cyst of ovary 01/01/2015 [facility] - see scanned documents Depressive disorder, not elsewhere classified Essential thrombocythemia (HCC) 06/02/2016 GERD (gastroesophageal reflux disease) Hypertension 08/28/11 IC (interstitial cystitis) Impaired fasting glucose 04/02/2010 Lumbar disc disease with radiculopathy 11/15/2010 Metabolic syndrome X Morbid obesity with BMI of 40.0-44.9, adult (HCC) 08/29/2013 Renal cyst, left 07/03/2016 18 mm, 06/18/16 Sciatica SI (sacroiliac) joint dysfunction 06/04/2011 Thoracolumbar back pain 07/20/2013 Unspecified hypothyroidism Urinary calculus, unspecified Renal stones Previous Surgical History PAST SURGICAL HISTORY Procedure Laterality Date CHOLECYSTECTOMY 1991 Cholecystectomy CYSTOSCOPY,DIL BLADDER,LOCAL ANESTH 01/18/14 EGD TRANSORAL BIOPSY SINGLE/MULTIPLE 04/09/2007 gastritis, gastric polyps KIDNEY SURGERY HX 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 6 weeks Erythromycin GI Upset Lisinopril Unknown Cough, hypotension Metformin GI Upset Mobic [Meloxicam] Vomiting Prochlorperazine Mental Status Change Agitation, felt ill Toradol [Ketorolac] Vomiting Vesicare [Solifenac* Rash Current Medications Current Outpatient Medications on File Prior to Visit Medication Sig amoxicillin-clavulanate potassium (AUGMENTIN) 875-125 mg per tablet Take 1 tablet by mouth two times a day for 7 days. fluconazole (DIFLUCAN) 100 mg tablet Take 1 tablet by mouth once daily for 10 days. levothyroxine (SYNTHROID) 150 mcg tablet Take 1 tablet by mouth daily before breakfast. ondansetron (ZOFRAN) 8 mg tablet Take 1 tablet by mouth every 8 hours as needed. busPIRone (BUSPAR) 15 mg tablet Take 1 tablet by mouth three times daily. methenam/sod phos/mblue/hyoscy (UROGESIC-BLUE ORAL) Take 1 capsule by mouth once daily. omeprazole (PRILOSEC) 40 mg capsule TAKE ONE CAPSULE BY MOUTH EVERY DAY buPROPion XL (WELLBUTRIN XL) 300 mg 24 hr tablet Take 1 tablet by mouth once daily. mirabegron (MYRBETRIQ) 50 mg Tb24 Take 1 tablet by mouth once daily. SACCHAROMYCES BOULARDII (PROBIOTIC, S.BOULARDII, ORAL) Take by mouth once daily. No current facility-administered medications on file prior to visit. Social History Social History Tobacco Use Smoking status: Never Smokeless tobacco: Never Vaping Use Vaping Use: Never used Substance Use Topics Alcohol use: Yes Comment: rarely Drug use: No EXAM: LMP 05/09/2018 (Approximate) General Appearance: Well appearing, alert, in no acute distress, well-hydrated, well nourished.. Health Maintenance List Hepatitis C Screening Never done HIV Screening Never done Hepatitis B Vaccine(1 of 3 - 19+ 3-dose series) Never done Colorectal Cancer Screening Never done Shingrix Vaccine(1 of 2) Never done BP Controlled (<130/80) due on 10/10/2018 DTaP,Tdap,Td Vaccine(6 - Td or Tdap) due on 12/20/2018 HPV Testing due on 04/10/2020 Pap Testing due on 04/11/2020 Covid-19 Vaccine( season) due on 01/23/2023 Behavioral Health Screening Never done Mammogram Screening due on 01/01/2024 Influenza Vaccine(Season Ended) due on 01/24/2024 Annual PCP Team Chronic Disease Visit due on 08/20/2024 Diabetes Screening due on 08/11/2026 Lipid Screening due on 12/25/2027 HPV Vaccine Aged Out Data reviewed None ASSESSMENT/PLAN: 1. Upper respiratory tract infection, unspecified type - ICD9: 465.9, ICD10: J06.9 (primary diagnosis) - Symptomatic treatment with prn analgesia - Supportive care with fluids and rest - The patient may also use Zyrtec, to see if allergies are causing some of her symptoms. 2. Situational anxiety - ICD9: 300.09, ICD10: F41.8 Refill xanax for prn use - ALPRAZOLAM 0.25 MG TABLET 3. Lymphadenopathy, cervical - ICD9: 785.6, ICD10: R59.0 Resolved Note for work done, plan return to work 08/31; let me know next week how she is doing. Sue Weber MD documented in this encounterMer[facility]-20-[facility] Instructions* Patient Instructions* Carly Lewis APRN.CNP - 08/12/2023 2:56 PM EDT Get labs/urine. (Make sure to tell the check in/lab that there are orders from me and hematology). Continue tylenol as needed. Notify provider of any changes in symptoms. documented in this encounterMercy [facility]03-20-2024 History of Present illness Narrative* Carly Lewis APRN.CNP - 08/12/2023 2:14 PM EDT This is a 58 year old female who presents today with: Patient presents with: Recheck: Follow up from Urgent Care- rash/swelling has resolved; still has intermittent fever's HISTORY OF PRESENT ILLNESS: Payton Mcqueen is a 58 year old female. Patient presents with: Recheck: Follow up from Urgent Care- rash/swelling has resolved; still has intermittent fever's Pt presents today for urgent care follow-up. Had covid again in June. Refers about three weeks later, she started with rash. Had been taking antibiotic a couple of weeks ago - for sinus infection. Started getting a little yeast infection. Took a fluconazole. Went back to work. Thursday, woke up with welts all over her. Was progressively worsening. Went to urgent care. Given fluconazole. Then started with intermittent fevers. Started having intermittent fevers when she had an outbreak of the rash. 101 in the middle of the night. Has been taking ibuprofen and fluconazole. Refers rash under the breasts has cleared up. Still has some itching. Continues w/ fatigue. Just would like to get back to some normalcy. PAST MEDICAL HISTORY: PAST MEDICAL HISTORY Diagnosis Date Acute gastritis without mention of hemorrhage Anxiety Benign neoplasm of stomach Cervical disc disorder with radiculopathy 02/18/2010 Cyst of ovary 01/01/2015 [facility] - see scanned documents Depressive disorder, not elsewhere classified Essential thrombocythemia (HCC) 06/02/2016 GERD (gastroesophageal reflux disease) Hypertension 08/28/11 IC (interstitial cystitis) Impaired fasting glucose 04/02/2010 Lumbar disc disease with radiculopathy 11/15/2010 Metabolic syndrome X Morbid obesity with BMI of 40.0-44.9, adult (HCC) 08/29/2013 Renal cyst, left 07/03/2016 18 mm, 06/18/16 Sciatica SI (sacroiliac) joint dysfunction 06/04/2011 Thoracolumbar back pain 07/20/2013 Unspecified hypothyroidism Urinary calculus, unspecified Renal stones PAST SURGICAL HISTORY Procedure Laterality Date CHOLECYSTECTOMY 1991 Cholecystectomy CYSTOSCOPY,DIL BLADDER,LOCAL ANESTH 01/18/14 EGD TRANSORAL BIOPSY SINGLE/MULTIPLE 04/09/2007 gastritis, gastric polyps KIDNEY SURGERY HX 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 Valadez PAST SURGICAL HISTORY OF WISDOM TEETH EXTRACTIONS PAST SURGICAL HISTORY OF 05/2012 bladder hydrodistension X 2 PAST SURGICAL HISTORY OF 2015 pain injection lumbar- multiple PAST SURGICAL HISTORY OF Cyst removed from head ALLERGIES Celebrex [Celecoxib], Erythromycin, Lisinopril, Metformin, Mobic [Meloxicam], Prochlorperazine, Toradol [Ketorolac], and Vesicare [Solifenacin] MEDICATIONS Current Outpatient Medications Medication Sig fluconazole (DIFLUCAN) 100 mg tablet Take 1 tablet by mouth once daily for 7 days. clotrimazole (RINGWORM) 1 % cream Apply to affected area two times a day for 14 days. ALPRAZolam (XANAX) 0.25 mg tablet Take 1 tablet by mouth once daily as needed for up to 30 days. levothyroxine (SYNTHROID) 150 mcg tablet Take 1 tablet by mouth daily before breakfast. ondansetron (ZOFRAN) 8 mg tablet Take 1 tablet by mouth every 8 hours as needed. busPIRone (BUSPAR) 15 mg tablet Take 1 tablet by mouth three times daily. methenam/sod phos/mblue/hyoscy (UROGESIC-BLUE ORAL) Take 1 capsule by mouth once daily. omeprazole (PRILOSEC) 40 mg capsule TAKE ONE CAPSULE BY MOUTH EVERY DAY buPROPion XL (WELLBUTRIN XL) 300 mg 24 hr tablet Take 1 tablet by mouth once daily. mirabegron (MYRBETRIQ) 50 mg Tb24 Take 1 tablet by mouth once daily. SACCHAROMYCES BOULARDII (PROBIOTIC, S.BOULARDII, ORAL) Take by mouth once daily. No current facility-administered medications for this visit. FAMILY HISTORY Problem Relation Age of Onset Diabetes Father Hypertension Father Cancer Maternal Grandmother Lymphoma Heart Maternal Grandfather hypertension Hypertension Brother Social History Tobacco Use Smoking status: Never Smokeless tobacco: Never Vaping Use Vaping Use: Never used Substance Use Topics Alcohol use: Yes Comment: rarely Drug use: No EXAM: BP 142/90 Pulse 82 Temp 36.7 C (98 F) Resp 16 LMP 05/09/2018 (Approximate) SpO2 94% PHYSICAL EXAM: General Appearance: Well appearing, alert, in no acute distress, well-hydrated, well nourished.. Skin: Skin color, texture, turgor normal, no suspicious rashes or lesions. Head: Normocephalic, no masses, lesions, tenderness or abnormalities. Eyes: Anicteric sclera. Pupils are equally round and reactive to light. Extraocular movements are intact. . Ears: External ears normal, canals clear. Normal TMs bilaterally. Oropharynx: Lips, mucosa, and tongue normal, teeth and gums normal, oropharynx normal. Neck: Supple, no adenopathy; thyroid symmetric, normal size, no bruits. Lungs: Lungs clear to auscultation. No wheezing, rhonchi, rales.. Heart: RRR without murmur, gallop, or rubs. No ectopy. Abdomen: Abdomen soft, non-tender. Bowel sounds normal. No masses, organomegaly. Extremities: No deformities, edema, skin discoloration, clubbing or cyanosis. Good capillary refill. . Neurologic: Gait normal. ASSESSMENT/PLAN: 1. Fever, unspecified fever cause - ICD9: 780.60, ICD10: R50.9 (primary diagnosis) Continues with intermittent fevers and fatigue. Maybe sequela of recent covid; however, r/o other causes. - CBC + DIFF - COMP METABOLIC PANEL - T4 FREE/FREE THYROX - SED RATE WESTERGREN - C-REACTIVE PROTEIN (CRP) - CMV IGM AB - EMILIE OLIVAREZ PANEL - URINALYSIS, WITH MICROSCOPIC - URINE CULTURE 2. Cutaneous candidiasis - ICD9: 112.3, ICD10: B37.2 Improving - HGB A1C 3. Hypothyroidism, unspecified type - ICD9: 244.9, ICD10: E03.9 - TSH BLD - T4 FREE/FREE THYROX Discussed treatment plan and patient voices understanding. Patient's questions answered appropriately. Medications and potential side effects were discussed and patient voices understanding. Return to the office as scheduled or as needed for worsening/no improvement. Carly Lewis APRN.CNP documented in this encounterMer[facility]03-18-2024 Miscellaneous Notes* Telephone Encounter - Burke Snider APRN.CNP - 08/10/2023 9:35 AM EDT The following approved medication requests have been transmitted electronically. Requested Prescriptions Signed Prescriptions Disp Refills fluconazole (DIFLUCAN) 100 mg tablet 7 tablet 0 Sig: Take 1 tablet by mouth once daily for 7 days. Burke Snider APRN.BUD * Telephone Encounter - Andreina Caicedo MA - 08/10/2023 8:13 AM EDT See [employer] message. documented in this encounterMer[facility]03-17-2024 History of Present illness Narrative* Hang Parker APRN.BUD - 08/09/2023 1:10 PM EDT Images from the original note were not included. Subjective HPI Nontoxic-appearing female presents urgent care chief complaint rash. Duration of symptoms 4 days. Associated symptoms stinging slightly pruritic rash. Patient states this started about 4 days ago. First noticed underneath breast. Is on inguinal area and underneath abdominal folds. Has had a rash similar to this. Did use some clotrimazole this has helped some. Presents today for evaluation. Deniesany recent medication changes. Finished amoxicillin around 2 weeks ago. .Patient presents with: Rash: itching, under breast, waistline x 4 days PAST MEDICAL HISTORY Diagnosis Date Acute gastritis without mention of hemorrhage Anxiety Benign neoplasm of stomach Cervical disc disorder with radiculopathy 02/18/2010 Cyst of ovary 01/01/2015 [facility] - see scanned documents Depressive disorder, not elsewhere classified Essential thrombocythemia (HCC) 06/02/2016 GERD (gastroesophageal reflux disease) Hypertension 08/28/11 IC (interstitial cystitis) Impaired fasting glucose 04/02/2010 Lumbar disc disease with radiculopathy 11/15/2010 Metabolic syndrome X Morbid obesity with BMI of 40.0-44.9, adult (HCC) 08/29/2013 Renal cyst, left 07/03/2016 18 mm, 06/18/16 Sciatica SI (sacroiliac) joint dysfunction 06/04/2011 Thoracolumbar back pain 07/20/2013 Unspecified hypothyroidism Urinary calculus, unspecified Renal stones PAST SURGICAL HISTORY Procedure Laterality Date CHOLECYSTECTOMY 1991 Cholecystectomy CYSTOSCOPY,DIL BLADDER,LOCAL ANESTH 01/18/14 EGD TRANSORAL BIOPSY SINGLE/MULTIPLE 04/09/2007 gastritis, gastric polyps KIDNEY SURGERY HX 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 Valadez PAST SURGICAL HISTORY OF WISDOM TEETH EXTRACTIONS PAST SURGICAL HISTORY OF 05/2012 bladder hydrodistension X 2 PAST SURGICAL HISTORY OF 2014 pain injection lumbar- multiple PAST SURGICAL HISTORY OF Cyst removed from head ALLERGIES Celebrex [Celecoxib], Erythromycin, Lisinopril, Metformin, Mobic [Meloxicam], Prochlorperazine, Toradol [Ketorolac], and Vesicare [Solifenacin] MEDICATIONS ALPRAZolam (XANAX) 0.25 mg tablet Take 1 tablet by mouth once daily as needed for up to 30 days. levothyroxine (SYNTHROID) 150 mcg tablet Take 1 tablet by mouth daily before breakfast. ondansetron (ZOFRAN) 8 mg tablet Take 1 tablet by mouth every 8 hours as needed. busPIRone (BUSPAR) 15 mg tablet Take 1 tablet by mouth three times daily. methenam/sod phos/mblue/hyoscy (UROGESIC-BLUE ORAL) Take 1 capsule by mouth once daily. omeprazole (PRILOSEC) 40 mg capsule TAKE ONE CAPSULE BY MOUTH EVERY DAY buPROPion XL (WELLBUTRIN XL) 300 mg 24 hr tablet Take 1 tablet by mouth once daily. mirabegron (MYRBETRIQ) 50 mg Tb24 Take 1 tablet by mouth once daily. SACCHAROMYCES BOULARDII (PROBIOTIC, S.BOULARDII, ORAL) Take by mouth once daily. FAMILY HISTORY Problem Relation Age of Onset Diabetes Father Hypertension Father Cancer Maternal Grandmother Lymphoma Heart Maternal Grandfather hypertension Hypertension Brother Social History Tobacco Use Smoking status: Never Smokeless tobacco: Never Vaping Use Vaping Use: Never used Substance Use Topics Alcohol use: Yes Comment: rarely Drug use: No BP 110/72 Pulse 86 Temp 36.6 C (97.8 F) Resp 16 Wt 108.4 kg (238 lb 15.7 oz) LMP 05/09/2018 (Approximate) SpO2 95% BMI 41.30 kg/m Review of Systems Constitutional: Negative for chills, fever and malaise/fatigue. HENT: Negative for congestion, ear discharge, ear pain, sinus pain and sore throat. Eyes: Negative for blurred vision, pain, discharge and redness. Respiratory: Negative for cough, hemoptysis, sputum production, shortness of breath, wheezing and stridor. Cardiovascular: Negative for chest pain. Gastrointestinal: Negative for abdominal pain, diarrhea, nausea and vomiting. Musculoskeletal: Negative for myalgias. Skin: Positive for itching and rash. Neurological: Negative for dizziness and headaches. Objective Physical Exam Constitutional: General: She is not in acute distress. Appearance: She is not toxic-appearing. HENT: Head: Normocephalic. Nose: Nose normal. Mouth/Throat: Mouth: Mucous membranes are moist. Pharynx: Oropharynx is clear. No oropharyngeal exudate or posterior oropharyngeal erythema. Eyes: Pupils: Pupils are equal, round, and reactive to light. Cardiovascular: Rate and Rhythm: Normal rate. Pulmonary: Effort: Pulmonary effort is normal. No respiratory distress. Musculoskeletal: Cervical back: Normal range of motion. Skin: General: Skin is warm and dry. Comments: Beefy red erythematous rash under breast folds and inguinal area. No remote redness. No desquamation of skin. No mucosal membrane involvement. Neurological: General: No focal deficit present. Mental Status: She is alert. ASSESSMENT/PLAN: 1. Intertrigo - ICD9: 695.89, ICD10: L30.4 Diagnosed with intertrigo. Placed on Diflucan and clotrimazole. Will not take Diflucan and Xanax orZofran together. Patient was educated on supportive therapies. Patient will follow up with primary care provider as needed. Patient was instructed to immediately proceed to emergency room for any new, worsening, or symptoms lasting longer than anticipated. The patient's clinical presentation is otherwise unremarkable at this time. Based on exam and clinical finding, the patient is stable for discharge. Plan of care was discussed with patient. Patient verbalizes understanding and agrees to plan of care. This note was generated using Focus IP software. It may contain errors in wording, punctuation, or spelling. Hang Parker APRN.BUD documented in this encounterMer[facility]03-04-2024 Miscellaneous Notes* Telephone Encounter - Sue Weber MD - 07/27/2023 1:37 PM EST OK to refill as ordered Sue Weber MD * Telephone Encounter - Mavis Shen Ma - 07/27/2023 1:33 PM EST Patient has been identified by name and date of : Yes, Provider Dr. Weber Date July 27, 2023 Time 1:33 PM Patient mycharts for refill(s): Requested Prescriptions Pending Prescriptions Disp Refills ALPRAZolam (XANAX) 0.25 mg tablet 30 tablet 0 Sig: Take 1 tablet by mouth once daily as needed for up to 30 days. Date of last office visit in primary care: 07/17/2023 Date of next office visit in primary care: Visit date not found Last Rx: 06/25/23 #30 w/0. Please advise. Thank you. Mavis Shen Ma. documented in this encounterMercy [facility]02-23-2024 History of Present illness Narrative* Sue Weber MD - 07/17/2023 2:00 PM EST Chief Complaint Patient presents with: URI HPI: This Team Access Model visit is a virtual/phone encounter. It required patient-provider interaction for the medical decision making as documented below. Patient was offered a virtual/telemedicine appointment in lieu of an office visit due to recommendations to reduce patient exposure to COVID-19. Patient is aware of limitations of performing the visit without a face to face visit in the office setting and agrees. I have communicated my name and active licensure. The patient's identity and physical location wereverified at the time of this visit. Either the patient or their legal sales and service representative has been informed of the risks and benefits of -- and alternatives to -- treatment through a remote evaluation andconsents to proceed with the evaluation remotely. Pt still c/o being ill with cold/covid/sinus sx. Recently dx with Covid in late April and again on 06/25/23. Pt was treated with Paxlovid on 06/26/23. Was written off work until 07/20/23. Pt states that she waving fatigue and shakiness, but this started improving on Thursday. On she went out and did some activities. Started experiencing a dry cough, nasal drainage (with some blood) and feeling hot and sweaty but no fever with it. She's worried due to having Covid recurrently and not being able to work. She wants to get back to work. Past medical history, appointments, medications, allergies reviewed. Previous Medical History PAST MEDICAL HISTORY Diagnosis Date Acute gastritis without mention of hemorrhage Anxiety Benign neoplasm of stomach Cervical disc disorder with radiculopathy 02/18/2010 Cyst of ovary 01/01/2015 [facility] - see scanned documents Depressive disorder, not elsewhere classified Essential thrombocythemia (HCC) 06/02/2016 GERD (gastroesophageal reflux disease) Hypertension 08/28/11 IC (interstitial cystitis) Impaired fasting glucose 04/02/2010 Lumbar disc disease with radiculopathy 11/15/2010 Metabolic syndrome X Morbid obesity with BMI of 40.0-44.9, adult ([facility]) 08/29/2013 Renal cyst, left 07/03/2016 18 mm, 06/18/16 Sciatica SI (sacroiliac) joint dysfunction 06/04/2011 Thoracolumbar back pain 07/20/2013 Unspecified hypothyroidism Urinary calculus, unspecified Renal stones Previous Surgical History PAST SURGICAL HISTORY Procedure Laterality Date CHOLECYSTECTOMY 1991 Cholecystectomy CYSTOSCOPY,DIL BLADDER,LOCAL ANESTH 01/18/14 EGD TRANSORAL BIOPSY SINGLE/MULTIPLE 04/09/2007 gastritis, gastric polyps KIDNEY SURGERY HX 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 6 weeks Erythromycin GI Upset Lisinopril Unknown Cough, hypotension Metformin GI Upset Mobic [Meloxicam] Vomiting Prochlorperazine Mental Status Change Agitation, felt ill Toradol [Ketorolac] Vomiting Vesicare [Solifenac* Rash Current Medications Current Outpatient Medications on File Prior to Visit Medication Sig ALPRAZolam (XANAX) 0.25 mg tablet Take 1 tablet by mouth once daily as needed for up to 30 days. levothyroxine (SYNTHROID) 150 mcg tablet Take 1 tablet by mouth daily before breakfast. ondansetron (ZOFRAN) 8 mg tablet Take 1 tablet by mouth every 8 hours as needed. busPIRone (BUSPAR) 15 mg tablet Take 1 tablet by mouth three times daily. methenam/sod phos/mblue/hyoscy (UROGESIC-BLUE ORAL) Take 1 capsule by mouth once daily. omeprazole (PRILOSEC) 40 mg capsule TAKE ONE CAPSULE BY MOUTH EVERY DAY buPROPion XL (WELLBUTRIN XL) 300 mg 24 hr tablet Take 1 tablet by mouth once daily. mirabegron (MYRBETRIQ) 50 mg Tb24 Take 1 tablet by mouth once daily. SACCHAROMYCES BOULARDII (PROBIOTIC, S.BOULARDII, ORAL) Take by mouth once daily. No current facility-administered medications on file prior to visit. Social History Social History Tobacco Use Smoking status: Never Smokeless tobacco: Never Vaping Use Vaping Use: Never used Substance Use Topics Alcohol use: Yes Comment: rarely Drug use: No EXAM: LMP 05/09/2018 (Approximate) Health Maintenance List Hepatitis B Vaccine(1 of 3 - 3-dose series) Never done Hepatitis C Screening Never done HIV Screening Never done Colorectal Cancer Screening Never done Shingrix Vaccine(1 of 2) Never done BP Controlled (<130/80) due on 10/10/2018 DTaP,Tdap,Td Vaccine(6 - Td or Tdap) due on 12/20/2018 HPV Testing due on 04/10/2020 Pap Testing due on 04/11/2020 Influenza Vaccine(1) due on 01/23/2023 Covid-19 Vaccine( season) due on 01/23/2023 Depression Assessment due on 05/25/2023 Mammogram Screening due on 01/01/2024 Annual PCP Team Chronic Disease Visit due on 07/06/2024 Diabetes Screening due on 12/24/2025 Lipid Screening due on 12/25/2027 HPV Vaccine Aged Out Data reviewed None ASSESSMENT/PLAN: 1. Bacterial sinusitis - ICD9: 473.9, 041.9, ICD10: J32.9, B96.89 With increasing sinus pressure and drainage will treat for bacterial sinusitis with amoxicillin - AMOXICILLIN 875 MG TABLET MYC message on Thursday with update and whether she is able to return to work or not I agree with the Chief Complaint, ROS, and Past Histories independently gathered by the clinical data support analyst and the remaining scribed note accurately describes my personal service to the patient. Sue Weber MD The documentation for this note was completed by Mavis Shen Ma acting as scribe for Sue Weber MD. July 17, 2023 1:48 PM. Mavis Shen Ma documented in this encounterMercy [facility]02-20-2024 Miscellaneous Notes* Telephone Encounter - Mavis Shen Ma - 07/14/2023 4:56 PM EST Pt notified letter written with date off until, if not improved. Letter signed and faxed to number provided by pt. Mavis Shen Ma * Telephone Encounter - Sue Weber MD - 07/14/2023 4:53 PM EST Letter done Sue Weber MD * Telephone Encounter - Mavis Shen Ma - 07/14/2023 11:48 AM EST Asked pt if she needs a new work note, due to hers having her off through today. Wait pt response. Mavis Shen Ma * Telephone Encounter - Margaux Link RN - 07/14/2023 10:28 AM EST Pt calling in to make sure that Dr. Weber received her MyChart msg. Pt states she is concernedon why she isn't feeling better. States she still has no energy, is nauseated, weak, shaky and is having constipation issues. Pt states she is not eating as much. When asked about bowel movements, ptstates she had one yesterday and one today but they were smaller amounts than normal for her. But stool was not hard, it was normal for her. Pt states having a lot of gas. She did not go to work again today. Offered an appt with Burke Snider today or Jerica Chaudhari tomorrow. Pt is concerned about seeing someone who doesn't understand her blood issues. * Telephone Encounter - Ninoska Rowan MA - 07/14/2023 10:14 AM EST GIFTY: 07/06/23 with PCP; post COVID Ninoska Rowan MA documented in this encounterMercy [facility]02-12-2024 History of Present illness Narrative* Sue Weber MD - 07/06/2023 3:20 PM EST Chief Complaint Patient presents with: Sore Throat: Still not feeling well from having COVID HPI Payton Mcqueen is a 58 year old female who presents here today for sore throat. Pt c/o continued sore throat and still not feeling well since having Covid. She was tx with Paxlovid. She took all but one dose because she started having rash and internal itching. She started sneezing a lot over the weekend, felt good off and on and started having body aches again. She has a sorethroat and burning in the left ear. She denies much of a cough or chest congestion but has a ticklein the throat from some drainage. Temp was 100.1 this morning and she has been sweating profusely at times. She did not go to work today. She is very frustrated with feeling sick, just wants to feel better. Pt is worried that this will go into her chest and then she might get pneumonia. She is unsure if she is re-infecting herself, she states the only time she was out was to the grocery store which was a quick trip and she wore a mask. She had COVID 05/21/23 and then again 06/25/23. She was feeling better in between then. Past medical history, appointments, medications, allergies reviewed. Previous Medical History PAST MEDICAL HISTORY Diagnosis Date Acute gastritis without mention of hemorrhage Anxiety Benign neoplasm of stomach Cervical disc disorder with radiculopathy 02/18/2010 Cyst of ovary 01/01/2015 [facility] - see scanned documents Depressive disorder, not elsewhere classified Essential thrombocythemia (HCC) 06/02/2016 GERD (gastroesophageal reflux disease) Hypertension 08/28/11 IC (interstitial cystitis) Impaired fasting glucose 04/02/2010 Lumbar disc disease with radiculopathy 11/15/2010 Metabolic syndrome X Morbid obesity with BMI of 40.0-44.9, adult (HCC) 08/29/2013 Renal cyst, left 07/03/2016 18 mm, 06/18/16 Sciatica SI (sacroiliac) joint dysfunction 06/04/2011 Thoracolumbar back pain 07/20/2013 Unspecified hypothyroidism Urinary calculus, unspecified Renal stones Previous Surgical History PAST SURGICAL HISTORY Procedure Laterality Date CHOLECYSTECTOMY 1991 Cholecystectomy CYSTOSCOPY,DIL BLADDER,LOCAL ANESTH 01/18/14 EGD TRANSORAL BIOPSY SINGLE/MULTIPLE 04/09/2007 gastritis, gastric polyps KIDNEY SURGERY HX 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 Vaaldez PAST SURGICAL HISTORY OF WISDOM TEETH EXTRACTIONS PAST SURGICAL HISTORY OF 05/2012 bladder hydrodistension X 2 PAST SURGICAL HISTORY OF 2014 pain injection lumbar- multiple PAST SURGICAL HISTORY OF Cyst removed from head Family History FAMILY HISTORY Problem Relation Age of Onset Diabetes Father Hypertension Father Cancer Maternal Grandmother Lymphoma Heart Maternal Grandfather hypertension Hypertension Brother Patient Allergies ALLERGIES Allergen Reactions Celebrex [Celecoxib] upsets stomach after prolonged use ie. 6 weeks Erythromycin GI Upset Lisinopril Unknown Cough, hypotension Metformin GI Upset Mobic [Meloxicam] Vomiting Prochlorperazine Mental Status Change Agitation, felt ill Toradol [Ketorolac] Vomiting Vesicare [Solifenac* Rash Current Medications Current Outpatient Medications on File Prior to Visit Medication Sig ALPRAZolam (XANAX) 0.25 mg tablet Take 1 tablet by mouth once daily as needed for up to 30 days. levothyroxine (SYNTHROID) 150 mcg tablet Take 1 tablet by mouth daily before breakfast. ondansetron (ZOFRAN) 8 mg tablet Take 1 tablet by mouth every 8 hours as needed. busPIRone (BUSPAR) 15 mg tablet Take 1 tablet by mouth three times daily. methenam/sod phos/mblue/hyoscy (UROGESIC-BLUE ORAL) Take 1 capsule by mouth once daily. omeprazole (PRILOSEC) 40 mg capsule TAKE ONE CAPSULE BY MOUTH EVERY DAY buPROPion XL (WELLBUTRIN XL) 300 mg 24 hr tablet Take 1 tablet by mouth once daily. mirabegron (MYRBETRIQ) 50 mg Tb24 Take 1 tablet by mouth once daily. SACCHAROMYCES BOULARDII (PROBIOTIC, S.BOULARDII, ORAL) Take by mouth once daily. No current facility-administered medications on file prior to visit. Social History Social History Tobacco Use Smoking status: Never Smokeless tobacco: Never Vaping Use Vaping Use: Never used Substance Use Topics Alcohol use: Yes Comment: rarely Drug use: No EXAM: BP 140/80 Pulse 84 Temp 37.2 C (98.9 F) (Tympanic) Resp 16 Wt 107.4 kg (236 lb 11.2 oz) LMP 05/09/2018 (Approximate) SpO2 97% BMI 40.91 kg/m General Appearance: Well appearing, alert, in no acute distress, well-hydrated, well nourished. andOverweight. Ears: External ears normal, canals clear. Oropharynx: Lips, mucosa, and tongue normal, teeth and gums normal, oropharynx normal. Neck: Supple, no adenopathy; thyroid symmetric, normal size. Lungs: Lungs clear to auscultation. No wheezing, rhonchi, rales.. Heart: RRR without murmur, gallop, or rubs. No ectopy. Health Maintenance List Hepatitis B Vaccine(1 of 3 - 3-dose series) Never done Hepatitis C Screening Never done HIV Screening Never done Colorectal Cancer Screening Never done Shingrix Vaccine(1 of 2) Never done BP Controlled (<130/80) due on 10/10/2018 DTaP,Tdap,Td Vaccine(6 - Td or Tdap) due on 12/20/2018 HPV Testing due on 04/10/2020 Pap Testing due on 04/11/2020 Influenza Vaccine(1) due on 01/23/2023 Covid-19 Vaccine(2022- season) due on 01/23/2023 Depression Assessment due on 05/25/2023 Mammogram Screening due on 01/01/2024 Annual PCP Team Chronic Disease Visit due on 06/25/2024 Diabetes Screening due on 12/24/2025 Lipid Screening due on 12/25/2027 HPV Vaccine Aged Out Data reviewed None ASSESSMENT/PLAN: 1. [id number] condition - ICD9: 139.8, ICD10: U09.9 Slowly improving Continue with symptomatic treatment OTC Written off work for the week, may return on Thursday07/14/23 Follow up as needed. I agree with the Chief Complaint, ROS, and Past Histories independently gathered by the clinical data support analyst and the remaining scribed note accurately describes my personal service to the patient. Medical Decision Making: Problems: Low: Acute, uncomplicated illness or injury Risk: Low: Low risk from testing/treatment Medical Decision Making Level: 3 - Low Sue Weber MD The documentation for this note was completed by Andreina Caicedo Ma acting as scribe for Sue Weber MD. July 06, 2023 3:13 PM. Andreina Caicedo Ma documented in this encounterMer[facility]02-02-[facility]24 Miscellaneous Notes* Telephone Encounter - Margaux Bueno LPN - 06/26/2023 10:04 AM EST Patient notified of RX, and interactions verbalizes understanding of instructions. Margaux Bueno LPN * Telephone Encounter - Burke Snider APRN.BUD - 06/26/2023 9:43 AM EST Paxlovid sent. Please let patient know that Paxlovid and Xanax interact. I would encourage patient to avoid taking Xanax if possible for the next few days. The following approved medication requests have been transmitted electronically. Requested Prescriptions Signed Prescriptions Disp Refills nirmatrelvir tablet 300 mg (150 mg x 2) and ritonavir tablet 100 mg in a dose pack (PAXLOVID) 30 tablet 0 Sig: Administer TWO pink nirmatrelvir 150 mg tablets and ONE white ritonavir 100 mg tablet for a total of three tablets twice daily. Authorizing Provider: BURKE SNIDER APRN.CNP * Telephone Encounter - Andreina Caicedo Ma - 06/26/2023 9:38 AM EST Pt notified. Would like medication sent to [facility]. Andreina Caicedo Ma * Telephone Encounter - Burke Snider APRN.CNP - 06/26/2023 9:10 AM EST Please let the patient know that her COVID/flu testing showed that she has COVID. Reviewing documentation, it appears that her symptoms started on Thursday. She is on day 5 of symptoms. This would be her last day that she would be eligible for antiviral therapy, Paxlovid. Can we please asked the patient if she would like to receive this? She would need to start today. Since today is day 5 of symptoms, current recommendations are that she may return to the community for the next 5 days and wear a high-quality mask. Burke Snider APRN.BUD documented in this encounterMer[facility]02-01-2024 History of Present illness Narrative* Sue Weber MD - 06/25/2023 2:00 PM EST Chief Complaint Patient presents with: Diarrhea: Body aches HPI Payton Mcqueen is a 58 year old female who presents here today for gi issues and body aches. Pt here today for an acute visit. Here today with her Cousin. Pt wrote into the office to Carly Lewis CNP on 06/24/23 with c/o flu like symptoms that started on Thursday. Was concerned that she ate something bad and wondered if she had a stomach bug. She then started coming down with symptoms of body aches, diarrhea, stomach gurgling, nausea, sinus pressure,sneezing and having some chills/fever. Had fever today of 102.4. Unsure what to do. Reports that she just returned back to school last week due to being out due to Covid and a . States that there's a lot of sickness going around at the school. She feels worse now then when she had Covid. Almost could barely make to her visit today due to feeling unwell. Taking Advil at home. Pt had Covid on 05/27/23, was treated with Paxlovid. Anxiety - Was seen virtually by Carly Lewis for situation anxiety on 06/17/23 due to the recent passing of her mother. Was having increased episodes of anxiety despite taking regular prescribed regimen of Buspar 15 mg TID and Wellbutrin XL 300 mg daily. In the afternoon she feels her insides are shaking and this helps calm this. She's taking this once daily currently. Doesn't want to use this chronically but feels right now this is helping her get through this at present time. Pt was given short term course of Xanax 0.25 mg to use prn for increased episodes of anxiety. Discussed other options such as reaching out for grief counseling. If needing to use the Xanax more frequently, then needto consider other options such as additional SSRI medication. Pt noted in [facility] message that the medication has helped, seem to have more issues in the afternoon. Past medical history, appointments, medications, allergies reviewed. Previous Medical History PAST MEDICAL HISTORY Diagnosis Date Acute gastritis without mention of hemorrhage Anxiety Benign neoplasm of stomach Cervical disc disorder with radiculopathy 02/18/2010 Cyst of ovary 01/01/2015 [facility] - see scanned documents Depressive disorder, not elsewhere classified Essential thrombocythemia (HCC) 06/02/2016 GERD (gastroesophageal reflux disease) Hypertension 08/28/11 IC (interstitial cystitis) Impaired fasting glucose 04/02/2010 Lumbar disc disease with radiculopathy 11/15/2010 Metabolic syndrome X Morbid obesity with BMI of 40.0-44.9, adult ([facility]) 08/29/2013 Renal cyst, left 07/03/2016 18 mm, 06/18/16 Sciatica SI (sacroiliac) joint dysfunction 06/04/2011 Thoracolumbar back pain 07/20/2013 Unspecified hypothyroidism Urinary calculus, unspecified Renal stones Previous Surgical History PAST SURGICAL HISTORY Procedure Laterality Date CHOLECYSTECTOMY 1991 Cholecystectomy CYSTOSCOPY,DIL BLADDER,LOCAL ANESTH 01/18/14 EGD TRANSORAL BIOPSY SINGLE/MULTIPLE 04/09/2007 gastritis, gastric polyps KIDNEY SURGERY HX 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 6 weeks Erythromycin GI Upset Lisinopril Unknown Cough, hypotension Metformin GI Upset Mobic [Meloxicam] Vomiting Prochlorperazine Mental Status Change Agitation, felt ill Toradol [Ketorolac] Vomiting Vesicare [Solifenac* Rash Current Medications Current Outpatient Medications on File Prior to Visit Medication Sig ALPRAZolam (XANAX) 0.25 mg tablet Take 1 tablet by mouth two times a day as needed for up to 10 days. levothyroxine (SYNTHROID) 150 mcg tablet Take 1 tablet by mouth daily before breakfast. nystatin (MYCOSTATIN) powder Apply 1 application to affected area four times daily. ondansetron (ZOFRAN) 8 mg tablet Take 1 tablet by mouth every 8 hours as needed. busPIRone (BUSPAR) 15 mg tablet Take 1 tablet by mouth three times daily. methenam/sod phos/mblue/hyoscy (UROGESIC-BLUE ORAL) Take 1 capsule by mouth once daily. omeprazole (PRILOSEC) 40 mg capsule TAKE ONE CAPSULE BY MOUTH EVERY DAY buPROPion XL (WELLBUTRIN XL) 300 mg 24 hr tablet Take 1 tablet by mouth once daily. mirabegron (MYRBETRIQ) 50 mg Tb24 Take 1 tablet by mouth once daily. SACCHAROMYCES BOULARDII (PROBIOTIC, S.BOULARDII, ORAL) Take by mouth once daily. No current facility-administered medications on file prior to visit. Social History Social History Tobacco Use Smoking status: Never Smokeless tobacco: Never Vaping Use Vaping Use: Never used Substance Use Topics Alcohol use: Yes Comment: rarely Drug use: No EXAM: BP 142/82 Pulse 80 Temp 36.6 C (97.8 F) (Tympanic) Resp 18 Wt 107 kg (236 lb) LMP 05/09/2018 (Approximate) BMI 40.79 kg/m General Appearance: Well appearing, alert, in no acute distress, well-hydrated, well nourished and Obese. Lungs: Lungs clear to auscultation. No wheezing, rhonchi, rales.. Heart: RRR without murmur, gallop, or rubs. No ectopy. Abdomen: Normal abdominal exam, Abdomen soft, non-tender. Bowel sounds normal. No masses, organomegaly. Health Maintenance List Hepatitis B Vaccine(1 of 3 - 3-dose series) Never done Hepatitis C Screening Never done HIV Screening Never done Colorectal Cancer Screening Never done Shingrix Vaccine(1 of 2) Never done BP Controlled (<130/80) due on 10/10/2018 DTaP,Tdap,Td Vaccine(6 - Td or Tdap) due on 12/20/2018 HPV Testing due on 04/10/2020 Pap Testing due on 04/11/2020 Influenza Vaccine(1) due on 01/23/2023 Covid-19 Vaccine(3 - season) due on 01/23/2023 Depression Assessment due on 05/25/2023 Mammogram Screening due on 01/01/2024 Annual PCP Team Chronic Disease Visit due on 06/17/2024 Diabetes Screening due on 12/24/2025 Lipid Screening due on 12/25/2027 HPV Vaccine Aged Out Data reviewed Epic ASSESSMENT/PLAN: 1. Upset stomach - ICD9: 536.8, ICD10: K30 (primary diagnosis) - Possible viral - Discussed eating toast, keeping up with fluids - Do Covid swab in office 2. Diarrhea, unspecified type - ICD9: 787.91, ICD10: R19.7 - As noted above 3. Body aches - ICD9: 780.96, ICD10: R52 - As noted above 4. Fever, unspecified fever cause - ICD9: 780.60, ICD10: R50.9 - As noted above 5. Situational anxiety - ICD9: 300.09, ICD10: F41.8 - Discussed using once daily - Rx for #30 days, discussed not using salvage determiner - ALPRAZOLAM 0.25 MG TABLET Will do Covid/Flu/RSV swab in office today and call with results. Continue symptomatic treatment. Note for work this week given, return to work next week depending on how she improves over the weekend. I agree with the Chief Complaint, ROS, and Past Histories independently gathered by the clinical data support analyst and the remaining scribed note accurately describes my personal service to the patient. Medical Decision Making: Problems: Low: Acute, uncomplicated illness or injury and Stable chronic illness Data: Unique test(s) ordered: 1 Risk: Moderate: Drug management Medical Decision Making Level: 3 - Low Sue Weber MD The documentation for this note was completed by Mavis Shen Ma acting as scribe for Sue Weber MD. June 25, 2023 1:58 PM. Mavis Shen Ma documented in this encounterMer[facility]10-30-2023 History of Present illness Narrative* Gadiel Davis MD - 03/23/2023 2:09 PM EDT (Elements copied from my note dated March 02, 2023, have been reviewed and updated where appropriate, and all reflect current assessment and medical decision making from today's encounter, March 23, 2023) HISTORY OF PRESENT ILLNESS: Payton Mcqueen is a 57 year old female dx with ET in 2019, was on Hydrea but had nausea and vomiting. Since developed iron deficiency, Dr Pineda attributed to cystitis. Here for follow up a=was seeing heme at [facility] last few times. Looks like dx morphed from ET to PCV in notes. She has never had erythrocytosis. Dr Caputo' notes reviewed also Virtual follow up, tolerating Flintstones well, started taking 2. Labs reviewed. She feels better. CLINICAL IMPRESSION: ET, JAK2 positive Not clear how much her iron deficiency is contributing to her thrombocytosis. At time of diagnosis,her H/H were normal with normal MCV RECOMMENDATION/PLAN: 1. Continue 2 Flintstones 2. Recheck cbc with iron studies in 6-8 weeks 3. She needs GI work up as well, referral to surgery for EGD and colonoscopy made. She will get done when able. Written and verbal health teaching given to patient, patient verbalizes understanding and agrees with treatment plan. PAST MEDICAL HISTORY Diagnosis Date Acute gastritis without mention of hemorrhage Anxiety Benign neoplasm of stomach Cervical disc disorder with radiculopathy 02/18/2010 Cyst of ovary 01/01/2015 [facility] - see scanned documents Depressive disorder, not elsewhere classified Essential thrombocythemia (HCC) 06/02/2016 GERD (gastroesophageal reflux disease) Hypertension 08/28/11 IC (interstitial cystitis) Impaired fasting glucose 04/02/2010 Lumbar disc disease with radiculopathy 11/15/2010 Metabolic syndrome X Morbid obesity with BMI of 40.0-44.9, adult (HCC) 08/29/2013 Renal cyst, left 07/03/2016 18 mm, 06/18/16 Sciatica SI (sacroiliac) joint dysfunction 06/04/2011 Thoracolumbar back pain 07/20/2013 Unspecified hypothyroidism Urinary calculus, unspecified Renal stones PAST SURGICAL HISTORY Procedure Laterality Date CHOLECYSTECTOMY 1991 Cholecystectomy CYSTOSCOPY,DIL BLADDER,LOCAL ANESTH 01/18/14 EGD TRANSORAL BIOPSY SINGLE/MULTIPLE 04/09/2007 gastritis, gastric polyps KIDNEY SURGERY HX 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 Valadez PAST SURGICAL HISTORY OF WISDOM TEETH EXTRACTIONS PAST SURGICAL HISTORY OF 05/2012 bladder hydrodistension X 2 PAST SURGICAL HISTORY OF 2014 pain injection lumbar- multiple PAST SURGICAL HISTORY OF Cyst removed from head FAMILY HISTORY Problem Relation Age of Onset Diabetes Father Hypertension Father Cancer Maternal Grandmother Lymphoma Heart Maternal Grandfather hypertension Hypertension Brother Social History Tobacco Use Smoking status: Never Smokeless tobacco: Never Vaping Use Vaping Use: Never used Substance Use Topics Alcohol use: Yes Comment: rarely Drug use: No ALLERGIES: ALLERGIES Allergen Reactions Celebrex [Celecoxib] upsets stomach after prolonged use ie. 6 weeks Erythromycin GI Upset Lisinopril Unknown Cough, hypotension Metformin GI Upset Mobic [Meloxicam] Vomiting Prochlorperazine Mental Status Change Agitation, felt ill Toradol [Ketorolac] Vomiting Vesicare [Solifenac* Rash CURRENT OUTPATIENT MEDICATIONS: ondansetron (ZOFRAN) 8 mg tablet Take 1 tablet by mouth every 8 hours as needed. guaiFENesin (MUCINEX) 600 mg 12 hr tablet Take 1 tablet by mouth twice daily as needed for cold/allergy symptoms. (Patient not taking: Reported on 03/02/2023) albuterol HFA (VENTOLIN HFA) 90 mcg/actuation inhaler Inhale 2 Puffs as instructed every 4 hours asneeded for wheezing/shortness of breath. busPIRone (BUSPAR) 15 mg tablet Take 1 tablet by mouth three times daily. methenam/sod phos/mblue/hyoscy (UROGESIC-BLUE ORAL) Take 1 capsule by mouth once daily. meloxicam (MOBIC) 15 mg tablet Take 1 tablet by mouth once daily. levothyroxine (SYNTHROID) 150 mcg tablet Take 1 tablet by mouth daily before breakfast. cyclobenzaprine (FLEXERIL) 10 mg tablet Take 1 tablet by mouth three times daily as needed for muscle spasm. (Patient not taking: Reported on 03/02/2023) omeprazole (PRILOSEC) 40 mg capsule TAKE ONE CAPSULE BY MOUTH EVERY DAY buPROPion XL (WELLBUTRIN XL) 300 mg 24 hr tablet Take 1 tablet by mouth once daily. sucralfate (CARAFATE) 1 gram tablet Take 1 tablet by mouth four times daily. Before meals and at bedtime (Patient not taking: Reported on 03/02/2023) mirabegron (MYRBETRIQ) 50 mg Tb24 Take 1 tablet by mouth once daily. aspirin, enteric coated (ADULT LOW DOSE ASPIRIN) 81 mg EC tablet Take 1 tablet by mouth once daily. SACCHAROMYCES BOULARDII (PROBIOTIC, S.BOULARDII, ORAL) Take by mouth once daily. REVIEW OF SYSTEMS: GENERAL: No fever, night sweats, weight loss or malaise. All other reviewed and negative other than HPI. PHYSICAL EXAMINATION: VITAL SIGNS: [facility] 05/09/2018 GENERAL APPEARANCE: Well appearing, in no acute distress, alert and oriented x3, well-hydrated, well nourished. I spent a total of 20 minutes on the date of the service which included preparing to see the patient, [id number] patient care, completing clinical documentation, obtaining and/or reviewing separately obtained history, counseling and educating the patient/family/caregiver, ordering medications, urszula ts, or procedures, independently interpreting results (not separately reported), and communicating results to the patient/family/caregiver. Electronically Signed: Gadiel Davis MD March 23, 2023 documented in this encounterMer[facility]10-09-2023 History of Present illness Narrative* Gadiel Davis MD - 03/02/2023 3:32 PM EDT (Elements copied from my note dated January 15, 2023, have been reviewed and updated where appropriate, and all reflect current assessment and medical decision making from today's encounter, March 02, 2023) HISTORY OF PRESENT ILLNESS: Payton Mcqueen is a 57 year old female dx with ET in 2019, was on Hydrea but had nausea and vomiting. Since developed iron deficiency, Dr Pineda attributed to cystitis. Here for follow up a=was seeing heme at [facility] last few times. Looks like dx morphed from ET to PCV in notes. She has never had erythrocytosis. Dr Caputo' notes reviewed also Here for follow up, oral iron was initially ok, but then caused nausea. 1 dose IV iron also caused nausea. CLINICAL IMPRESSION: ET, JAK2 positive Not clear how much her iron deficiency is contributing to her thrombocytosis. At time of diagnosis,her H/H were normal with normal MCV RECOMMENDATION/PLAN: 1. Will try half dose iron supps, with OJ, can try Flintstones 2. Recheck cbc with iron studies in 3 weeks 3. She needs GI work up as well, referral to surgery for EGD and colonoscopy made. Written and verbal health teaching given to patient, patient verbalizes understanding and agrees with treatment plan. PAST MEDICAL HISTORY Diagnosis Date Acute gastritis without mention of hemorrhage Anxiety Benign neoplasm of stomach Cervical disc disorder with radiculopathy 02/18/2010 Cyst of ovary 01/01/2015 [facility] - see scanned documents Depressive disorder, not elsewhere classified Essential thrombocythemia (HCC) 06/02/2016 GERD (gastroesophageal reflux disease) Hypertension 08/28/11 IC (interstitial cystitis) Impaired fasting glucose 04/02/2010 Lumbar disc disease with radiculopathy 11/15/2010 Metabolic syndrome X Morbid obesity with BMI of 40.0-44.9, adult (HCC) 08/29/2013 Renal cyst, left 07/03/2016 18 mm, 06/18/16 Sciatica SI (sacroiliac) joint dysfunction 06/04/2011 Thoracolumbar back pain 07/20/2013 Unspecified hypothyroidism Urinary calculus, unspecified Renal stones PAST SURGICAL HISTORY Procedure Laterality Date CHOLECYSTECTOMY 1991 Cholecystectomy CYSTOSCOPY,DIL BLADDER,LOCAL ANESTH 01/18/14 EGD TRANSORAL BIOPSY SINGLE/MULTIPLE 04/09/2007 gastritis, gastric polyps KIDNEY SURGERY HX 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 Valadez PAST SURGICAL HISTORY OF WISDOM TEETH EXTRACTIONS PAST SURGICAL HISTORY OF 05/2012 bladder hydrodistension X 2 PAST SURGICAL HISTORY OF 2014 pain injection lumbar- multiple PAST SURGICAL HISTORY OF Cyst removed from head FAMILY HISTORY Problem Relation Age of Onset Diabetes Father Hypertension Father Cancer Maternal Grandmother Lymphoma Heart Maternal Grandfather hypertension Hypertension Brother Social History Tobacco Use Smoking status: Never Smokeless tobacco: Never Vaping Use Vaping Use: Never used Substance Use Topics Alcohol use: Yes Comment: rarely Drug use: No ALLERGIES: ALLERGIES Allergen Reactions Celebrex [Celecoxib] upsets stomach after prolonged use ie. 6 weeks Erythromycin GI Upset Lisinopril Unknown Cough, hypotension Metformin GI Upset Mobic [Meloxicam] Vomiting Prochlorperazine Mental Status Change Agitation, felt ill Toradol [Ketorolac] Vomiting Vesicare [Solifenac* Rash CURRENT OUTPATIENT MEDICATIONS: ondansetron (ZOFRAN) 8 mg tablet Take 1 tablet by mouth every 8 hours as needed. albuterol HFA (VENTOLIN HFA) 90 mcg/actuation inhaler Inhale 2 Puffs as instructed every 4 hours asneeded for wheezing/shortness of breath. busPIRone (BUSPAR) 15 mg tablet Take 1 tablet by mouth three times daily. methenam/sod phos/mblue/hyoscy (UROGESIC-BLUE ORAL) Take 1 capsule by mouth once daily. levothyroxine (SYNTHROID) 150 mcg tablet Take 1 tablet by mouth daily before breakfast. omeprazole (PRILOSEC) 40 mg capsule TAKE ONE CAPSULE BY MOUTH EVERY DAY buPROPion XL (WELLBUTRIN XL) 300 mg 24 hr tablet Take 1 tablet by mouth once daily. mirabegron (MYRBETRIQ) 50 mg Tb24 Take 1 tablet by mouth once daily. SACCHAROMYCES BOULARDII (PROBIOTIC, S.BOULARDII, ORAL) Take by mouth once daily. guaiFENesin (MUCINEX) 600 mg 12 hr tablet Take 1 tablet by mouth twice daily as needed for cold/allergy symptoms. (Patient not taking: Reported on 03/02/2023) meloxicam (MOBIC) 15 mg tablet Take 1 tablet by mouth once daily. cyclobenzaprine (FLEXERIL) 10 mg tablet Take 1 tablet by mouth three times daily as needed for muscle spasm. (Patient not taking: Reported on 03/02/2023) sucralfate (CARAFATE) 1 gram tablet Take 1 tablet by mouth four times daily. Before meals and at bedtime (Patient not taking: Reported on 03/02/2023) aspirin, enteric coated (ADULT LOW DOSE ASPIRIN) 81 mg EC tablet Take 1 tablet by mouth once daily. REVIEW OF SYSTEMS: GENERAL: No fever, night sweats, weight loss or malaise. All other reviewed and negative other than HPI. PHYSICAL EXAMINATION: VITAL SIGNS: BP 164/99 Pulse 91 Temp 96.7 Wt 240 lb (108.9kg) SpO2 98% LMP 05/09/2018 GENERAL APPEARANCE: Well appearing, in no acute distress, alert and oriented x3, well-hydrated, well nourished. I spent a total of 20 minutes on the date of the service which included preparing to see the patient, [id number] patient care, completing clinical documentation, obtaining and/or reviewing separately obtained history, counseling and educating the patient/family/caregiver, ordering medications, urszula ts, or procedures, independently interpreting results (not separately reported), and communicating results to the patient/family/caregiver. Electronically Signed: Gadiel Davis MD March 02, 2023 documented in this encounterMercy [facility]10-03-2023 Miscellaneous Notes* Telephone Encounter - Arlene Jade RN - 02/24/2023 11:19 AM EDT Pt having side effects from iron infusions. Wishes to cancel tomorrow's appt. Will administer over 30 mins at future visits to see if it helps alleviate symptoms. Schedule changed accordingly. documented in this encounterMercy [facility]10-03-2023 Miscellaneous Notes* Telephone Encounter - Mavis Shen Ma - 02/24/2023 9:49 AM EDT Pt requesting Diflucan, please advise. Mavis Shen Ma documented in this encounterMer[facility]09-26-[facility]23 History of Present illness Narrative* Deborah Jackson RT(R) - 02/17/2023 1:20 PM EDT Radiology Service Progress Note PATIENT NAME: Payton Mcqueen DATE OF SERVICE: February 17, 2023 TIME: 1:21 PM PATIENT IDENTITY VERIFICATION COMPLETED USING TWO (2) IDENTIFIERS: Name and Date of confirmedby patient verbally. FALL SCREENING: Has the patient had 2 falls in the last year or 1 fall with injury or currently using an Ambulatory Assistive Device (Walker, Cane, Wheelchair, Crutches, etc.)? No PATIENT GENDER DATA: Female. status: : No status: NO. PATIENT RELEVANT IMPLANT DATA REVIEWED: Not Applicable RADIOLOGY DEPARTMENT: General X-ray: Exam(s) Completed: Chest X-Ray PERIPHERAL IV DATA: Not applicable SIGNED BY: RT Estuardo(R) February 17, 2023 1:21 PM documented in this encounterMercy Health [facility]09-26-2023 History of Present illness Narrative* Corinna Toussaint APRN.CLERICAL SUPERVISOR - 02/17/2023 12:58 PM EDT Chief Complaint Patient presents with: Follow Up HPI Payton Mcqueen is a 57 year old female who presents here today for Above Complaints.. Patient presents for continued cough, wheezing. Patient was seen 6 days ago and given doxycycline and guaifensin. Chest xray showed mild prominence of bilat pulmonary markings but was otherwise negative. Patient reports no improvement on antibiotics. Past medical history, appointments, medications, allergies reviewed. Previous Medical History PAST MEDICAL HISTORY Diagnosis Date Acute gastritis without mention of hemorrhage Anxiety Benign neoplasm of stomach Cervical disc disorder with radiculopathy 02/18/2010 Cyst of ovary 01/01/2015 [facility] - see scanned documents Depressive disorder, not elsewhere classified Essential thrombocythemia (HCC) 06/02/2016 GERD (gastroesophageal reflux disease) Hypertension 08/28/11 IC (interstitial cystitis) Impaired fasting glucose 04/02/2010 Lumbar disc disease with radiculopathy 11/15/2010 Metabolic syndrome X Morbid obesity with BMI of 40.0-44.9, adult ([facility]) 08/29/2013 Renal cyst, left 07/03/2016 18 mm, 06/18/16 Sciatica SI (sacroiliac) joint dysfunction 06/04/2011 Thoracolumbar back pain 07/20/2013 Unspecified hypothyroidism Urinary calculus, unspecified Renal stones Previous Surgical History PAST SURGICAL HISTORY Procedure Laterality Date CHOLECYSTECTOMY 1991 Cholecystectomy CYSTOSCOPY,DIL BLADDER,LOCAL ANESTH 01/18/14 EGD TRANSORAL BIOPSY SINGLE/MULTIPLE 04/09/2007 gastritis, gastric polyps KIDNEY SURGERY HX 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 6 weeks Erythromycin GI Upset Lisinopril Unknown Cough, hypotension Metformin GI Upset Mobic [Meloxicam] Vomiting Prochlorperazine Mental Status Change Agitation, felt ill Toradol [Ketorolac] Vomiting Vesicare [Solifenac* Rash Current Medications Current Outpatient Medications on File Prior to Visit Medication Sig doxycycline (VIBRA-TABS) 100 mg tablet Take 1 tablet by mouth twice daily for 10 days. guaiFENesin (MUCINEX) 600 mg 12 hr tablet Take 1 tablet by mouth twice daily as needed for cold/allergy symptoms. albuterol HFA (VENTOLIN HFA) 90 mcg/actuation inhaler Inhale 2 Puffs as instructed every 4 hours asneeded for wheezing/shortness of breath. busPIRone (BUSPAR) 15 mg tablet Take 1 tablet by mouth three times daily. methenam/sod phos/mblue/hyoscy (UROGESIC-BLUE ORAL) Take 1 capsule by mouth once daily. meloxicam (MOBIC) 15 mg tablet Take 1 tablet by mouth once daily. levothyroxine (SYNTHROID) 150 mcg tablet Take 1 tablet by mouth daily before breakfast. cyclobenzaprine (FLEXERIL) 10 mg tablet Take 1 tablet by mouth three times daily as needed for muscle spasm. omeprazole (PRILOSEC) 40 mg capsule TAKE ONE CAPSULE BY MOUTH EVERY DAY buPROPion XL (WELLBUTRIN XL) 300 mg 24 hr tablet Take 1 tablet by mouth once daily. sucralfate (CARAFATE) 1 gram tablet Take 1 tablet by mouth four times daily. Before meals and at bedtime mirabegron (MYRBETRIQ) 50 mg Tb24 Take 1 tablet by mouth once daily. aspirin, enteric coated (ADULT LOW DOSE ASPIRIN) 81 mg EC tablet Take 1 tablet by mouth once daily. SACCHAROMYCES BOULARDII (PROBIOTIC, S.BOULARDII, ORAL) Take by mouth once daily. No current facility-administered medications on file prior to visit. Social History Social History Tobacco Use Smoking status: Never Smokeless tobacco: Never Vaping Use Vaping Use: Never used Substance Use Topics Alcohol use: Yes Comment: rarely Drug use: No Review of Symptoms REVIEW OF SYSTEMS SEE HPI EXAM: BP 142/80 Pulse 98 Temp 36.7 C (98 F) Resp 18 Wt 107 kg (236 lb) LMP 05/09/2018 (Approximate) SpO2 96% BMI 40.79 kg/m General Appearance: Well appearing, alert, in no acute distress, well-hydrated, well nourished.. Lungs: Positive findings: wheezing Shortness of breath: Upon exertion. Dry nonproductive cough Heart: RRR without murmur, gallop, or rubs. No ectopy. Health Maintenance List Hepatitis B Vaccine(1 of 3 - 3-dose series) Never done Hepatitis C Screening Never done HIV Screening Never done Colorectal Cancer Screening Never done Shingrix Vaccine(1 of 2) Never done BP Controlled (<130/80) due on 10/10/2018 DTaP,Tdap,Td Vaccine(6 - Td or Tdap) due on 12/20/2018 HPV Testing due on 04/10/2020 Pap Testing due on 04/11/2020 Covid-19 Vaccine(3 - Moderna series) due on 02/11/2021 Depression Assessment due on 05/25/2022 Influenza Vaccine(1) due on 01/23/2023 Mammogram Screening due on 01/01/2024 Annual PCP Team Chronic Disease Visit due on 02/12/2024 Diabetes Screening due on 12/24/2025 Lipid Screening due on 12/25/2027 HPV Vaccine Aged Out ASSESSMENT/PLAN: 1. Acute cough - ICD9: 786.2, ICD10: R05.1 (primary diagnosis) - XR CHEST 2V FRONTAL/LAT 2. Community acquired pneumonia, unspecified laterality - ICD9: 486, ICD10: J18.9 - AMOXICILLIN 500 MG CAPSULE Corinna Toussaint APRN.CNP documented in this encounterMer[facility]09-26-2023 Miscellaneous Notes* Telephone Encounter - Burke Snider APRN.CNP - 02/17/2023 11:46 AM EDT Appt at 1:00 pm Burke Snider APRN.BUD * Telephone Encounter - Sarah Lieberman LPN - 02/16/2023 12:02 PM EDT Pt calling for xray results and she has improved a little but the cough is still concerning. Pt notsure what to do. Pt taking medications that she was given. Pt reports feels like someone has run over her. No fever. Denies chest pain but has some wheezing. Please advise pt. Sarah Lieberman LPN documented in this encounterMercy [facility]09-22-2023 Miscellaneous Notes* Telephone Encounter - Ninoska Rowan MA - 02/13/2023 2:07 PM EDT Letter taken to MED REC. Patient notified. Ninoska Rowan MA * Telephone Encounter - Burke Snider APRN.BUD - 02/13/2023 1:57 PM EDT Letter created. Burke Snider APRN.BUD * Telephone Encounter - Sarah Lieberman LPN - 02/12/2023 3:12 PM EDT Pt called to update her condition. Pt not feeling better and she is going to come in and get xray done today. Pt is in need of a work excuse for tomorrow 02/13/23. Pt still sick not able to return to work on 02-13-23. 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 Sarah Lieberman LPN documented in this encounterMercy [facility]09-22-2023 Miscellaneous Notes* Telephone Encounter - Jeyson Hernandez - 02/13/2023 8:45 AM EDT Reviewed patient on the 1st time treatment report. The patient does not have a cancer dx or a chemo/radiation regimen. No further Financial Navigator intervention is needed at this time. documented in this encounterMercy [facility]09-20-2023 History of Present illness Narrative* Gianni Nair, - 02/11/2023 11:15 AM EDT CC: Payton Mcqueen is a 57 year old female who presents to the office for uri symptoms HPI: URI symptoms., sinus pressure and congestion, discomfort and post nasal drainage, now with cough and chest congestion x 6-7 days, missed work yesterday and today due to symptoms. Has been taking mucinex and increased fluids, no sputum production. Does feel some chest tightness and wheezing at times. No known hx of asthma. + sick contacts. PAST MEDICAL HISTORY Diagnosis Date Acute gastritis without mention of hemorrhage Anxiety Benign neoplasm of stomach Cervical disc disorder with radiculopathy 02/18/2010 Cyst of ovary 01/01/2015 [facility] - see scanned documents Depressive disorder, not elsewhere classified Essential thrombocythemia (HCC) 06/02/2016 GERD (gastroesophageal reflux disease) Hypertension 08/28/11 IC (interstitial cystitis) Impaired fasting glucose 04/02/2010 Lumbar disc disease with radiculopathy 11/15/2010 Metabolic syndrome X Morbid obesity with BMI of 40.0-44.9, adult (HCC) 08/29/2013 Renal cyst, left 07/03/2016 18 mm, 06/18/16 Sciatica SI (sacroiliac) joint dysfunction 06/04/2011 Thoracolumbar back pain 07/20/2013 Unspecified hypothyroidism Urinary calculus, unspecified Renal stones PAST SURGICAL HISTORY Procedure Laterality Date CHOLECYSTECTOMY 1991 Cholecystectomy CYSTOSCOPY,DIL BLADDER,LOCAL ANESTH 01/18/14 EGD TRANSORAL BIOPSY SINGLE/MULTIPLE 04/09/2007 gastritis, gastric polyps KIDNEY SURGERY HX 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 Valadez PAST SURGICAL HISTORY OF WISDOM TEETH EXTRACTIONS PAST SURGICAL HISTORY OF 05/2012 bladder hydrodistension X 2 PAST SURGICAL HISTORY OF 2014 pain injection lumbar- multiple PAST SURGICAL HISTORY OF Cyst removed from head Current Outpatient Medications Medication Sig busPIRone (BUSPAR) 15 mg tablet Take 1 tablet by mouth three times daily. methenam/sod phos/mblue/hyoscy (UROGESIC-BLUE ORAL) Take 1 capsule by mouth once daily. levothyroxine (SYNTHROID) 150 mcg tablet Take 1 tablet by mouth daily before breakfast. omeprazole (PRILOSEC) 40 mg capsule TAKE ONE CAPSULE BY MOUTH EVERY DAY buPROPion XL (WELLBUTRIN XL) 300 mg 24 hr tablet Take 1 tablet by mouth once daily. sucralfate (CARAFATE) 1 gram tablet Take 1 tablet by mouth four times daily. Before meals and at bedtime mirabegron (MYRBETRIQ) 50 mg Tb24 Take 1 tablet by mouth once daily. SACCHAROMYCES BOULARDII (PROBIOTIC, S.BOULARDII, ORAL) Take by mouth once daily. doxycycline (VIBRA-TABS) 100 mg tablet Take 1 tablet by mouth twice daily for 10 days. guaiFENesin (MUCINEX) 600 mg 12 hr tablet Take 1 tablet by mouth twice daily as needed for cold/allergy symptoms. albuterol HFA (VENTOLIN HFA) 90 mcg/actuation inhaler Inhale 2 Puffs as instructed every 4 hours asneeded for wheezing/shortness of breath. meloxicam (MOBIC) 15 mg tablet Take 1 tablet by mouth once daily. cyclobenzaprine (FLEXERIL) 10 mg tablet Take 1 tablet by mouth three times daily as needed for muscle spasm. aspirin, enteric coated (ADULT LOW DOSE ASPIRIN) 81 mg EC tablet Take 1 tablet by mouth once daily. No current facility-administered medications for this visit. ALLERGIES Allergen Reactions Celebrex [Celecoxib] upsets stomach after prolonged use ie. 6 weeks Erythromycin GI Upset Lisinopril Unknown Cough, hypotension Metformin GI Upset Mobic [Meloxicam] Vomiting Prochlorperazine Mental Status Change Agitation, felt ill Toradol [Ketorolac] Vomiting Vesicare [Solifenac* Rash Social History Tobacco Use Smoking status: Never Smokeless tobacco: Never Vaping Use Vaping Use: Never used Substance Use Topics Alcohol use: Yes Comment: rarely Drug use: No ROS: Gen: Negative fevers or chills. See HPI + fatigue PE: BP 138/72 Pulse 80 Temp (Src) 98 (Left Tympanic) Resp 20 Wt 239 lb (108.4kg) LMP 05/09/2018 Gen: A&OX3, NAD, non-toxic appearing, fatigued appearing, coughing HEENT: PERRLA, EOMs intact b/l, nares without drainage, pharynx without erythema, exudate, lesions,or drainage. Uvula midline. Neck: No LAD, no thyromegaly, no meningismus. CV: RRR, no murmur Lungs: coughing, + intermittent wheezing bases of the lungs, no distress, + rhonchi bases No respiratory distress Skin: No rashes, lesions, or wounds on exposed skin. ASSESSMENT/PLAN: 1. Acute cough - ICD9: 786.2, ICD10: R05.1 She doesn't tolerate steroids well, start on antibiotic and prn use of albuterol and mucinex twice a day scheduled. Note for off work provided, if symptoms worsen, then check CXR as ordered. Supportive care as d/w her today, no red flag symptoms - XR CHEST 2V FRONTAL/LAT - DOXYCYCLINE HYCLATE 100 MG TABLET - GUAIFENESIN ER 600 MG TABLET, EXTENDED RELEASE 12 HR - ALBUTEROL SULFATE HFA 90 MCG/ACTUATION AEROSOL INHALER Gianni Nair DO Return if no improvement. Follow up with Sue Weber MD. To ER if develops chest pain, shortness of breath Discussed risks, benefits, alternatives, and potential side effects of medications. Patient/Guardian expressed understanding and agreed with the plan. See patient instructions. Gianni Nair DO [address] [place] [address] documented in this encounterMercy Health [facility]09-06-2023 Discharge summary Author Paco Miller [facility] January 28, 2023 3:08pm Note Date/Time January 28, 2023 2:15pm [facility] Medical Records Department [address] [facility] [place] [address] Emergency Department Summary 01/28/23 MR#: [id number] Acct: [id number] Name: PAYTON MCQUEEN Rep #:[id number] : 1965 57 From: Paco Miller MD PCP: Dr. Sue Weber MD Status:RE G ER Location: ED HPI History of Present Illness Chief Complaint: Lower Extremity Injury Informant: patient Narrative Narrative: Presents with soreness to her right posterior lateral calf. Patient states she thinks this is just a cramp. But she has a history of thrombocytosis and she is always told to be careful of clots. But she has neverhad a DVT or PE. No recent trauma that she knows of. No long travel surgery orimmobilization. She has some pain and cramping in the posterior right side of her calf up near her knee. 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 No chest pain or trouble breathing. Her last platelets were in the upper 700,000's which are good for her. [facility] Medical History Acute maxillary sinusitis, unspecified Anxiety Back pain Bladder distention Cancer Depression Essential thrombocythemia Gastric reflux History of stress test Hypertension Injury of back Interstitial cystitis Iron deficiency Knee pain Leukocytosis Low iron Malignant tumor of kidney Non-smoker Post-menopausal Pre-diabetes Severe headache Shoulder pain Stomach ulcer Thrombocytosis Thyroid disease Thyroid disease Vaginal candidiasis Home Medications buspirone 5 mg tablet 15 mg PO BID ANXIETY 08/28/15 [History Last Taken 01/15/19] mirabegron 25 mg tablet,extended release 24 hr 50 mg PO 1400 BLADDER 05/31/18 [History Last Taken 01/15/19] L.acidoph, paracasei,B. lactis 10 billion cell capsule 1 ea PO DAILY [facility] [facility] 01/16/19 [History Last Taken 01/16/19] bupropion HCl 150 mg tablet,12 hr sustained-release 300 mg PO 1400 DEPRESSION 02/19/19 [History Last Taken Unknown] aspirin 81 mg tablet,delayed release 81 mg PO DAILY 07/04/19 [History Last Taken 02/10/21] d-mannose 1 ea PO DAILY 02/28/20 [History Last Taken Unknown] methenamine 120 mg-methyl.blue 10.8 mg-sod phos-phenyl benja-hyos tablet 1 tab PO PRN PRN Bladder Spasms 02/15/21 [History Last Taken Unknown] buspirone 15 mg tablet 15 mg PO BID 12/03/21 [History Last Taken Unknown] doxepin 10 mg capsule 10 mg PO QHS 12/03/21 [History Last Taken Unknown] levothyroxine 150 mcg tablet 150 mcg PO DAILY 12/03/21 [History Last Taken Unknown] levothyroxine 25 mcg tablet 150 mcg PO DAILY THYROID 12/03/21 [History Last Taken Unknown] omeprazole 40 mg capsule,delayed release 40 mg PO DAILY 12/03/21 [History Last Taken Unknown] ondansetron 4 mg disintegrating tablet 4 mg PO Q8H PRN PRN Nausea #10 tabs 01/16/23 [Rx Last Taken Unknown] Allergy/AdvReac Type Severity Reaction Status Date / Time ketorolac tromethamine Allergy Severe Hives Verified 01/28/23 13:29 [From Toradol] solifenacin succinate Allergy Severe Hives Verified 01/28/23 13:29 [From Vesicare] erythromycin base AdvReac Severe Nausea/Vom/ Verified 01/28/23 13:29 [Erythromycin Base] Diarrhea celecoxib [From Celebrex] AdvReac Intermediate Nausea/Vom/ Verified 01/28/23 13:29 Diarrhea lisinopril AdvReac Mild Vomiting Verified 01/28/23 13:29 Family History Father Diabetes Heart disease Hypertension Grandmother Cancer Surgical History History of cholecystectomy History of root canal procedure partial kidney removed Social History number of children: 0 current occupational status: employed current occupation: [employer] Smoking Status: Never smoker alcohol intake: never substance use type: does not use seatbelt use: sometimes do you feel safe at home: Yes additional social history: single ROS ROS ED Constitutional Constitutional ED: Denies chills or fever(s) Cardiovascular Cardiovascular: Denies chest pain, palpitations or racing heartbeat Respiratory/Chest Respiratory/Chest: Denies cough or dyspnea Gastrointestinal Gastrointestinal: Denies abdominal pain, nausea or vomiting Genitourinary Genitourinary ED: Denies hematuria Musculoskeletal Musculoskeletal: Reports myalgias; Denies arthralgias, back pain or neck pain Integumentary Reports other Details: Patient for a rash recently but that has fully resolved. ; Denies rash Neurologic Neurologic: Denies headache(s) or paresthesias Endocrine Endocrinology: Denies polyuria Hematologic/Lymphatic Hematologic/Lymphatic: Denies easy bleeding or easy bruising Allergic/Immunologic Allergic/Immunologic ED: Denies urticaria EXAM Physical Exam Narrative Exam Narrative: Alert no acute distress sitting comfortably on bed. HEENT shows no swelling or bruising. No petechiae. Neck shows no JVD Heart is regular. Lungs are clear with normal saturations at 96% on room air showing no hypoxia. Extremities show no swelling. There is no asymmetry. No palpable cord but there is tenderness at the proximal third of the calf on her right. But is justthe lateral aspect. I do not notice any definitive fullness behind her knee consistent with a Armijo's cyst. Distal pulses sensation are normal. No rash atthis time. Const Vital Signs: 01/28/23 13:29 Temperature 97.5 F L Temperature Source Temporal Pulse Rate 101 H Respiratory Rate 20 H Blood Pressure 162/82 H Blood Pressure Mean 108 Pulse Ox 96 Oxygen Delivery Method Room Air MDM MDM MDM Narrative Medical decision making narrative: I talked with the technical instructor. There is no indication of DVT mass Armijo's cyst or any other abnormality. Patient feels as though this might be a muscle cramp. But she has none in otherareas. She has no bruising. No swelling. I do not think blood work is needed at this time as she has an isolated localized symptom. Discharge Plan Triage Chief Complaint: Lower Extremity Injury ED Provider: Paco Miller Dx/Rx/DC Orders Clinical Impression: Calf cramp, Essential thrombocythemia Instructions: ED Leg Spasm Prescriptions: No Action d-mannose Powder 1 ea PO DAILY doxepin 10 mg capsule 10 mg PO QHS buspirone 15 mg tablet 15 mg PO BID levothyroxine 150 mcg tablet 150 mcg PO DAILY omeprazole 40 mg capsule,delayed release(DR/EC) 40 mg PO DAILY buspirone 5 MG tablet 15 mg PO BID mirabegron 25 mg tablet extended release 24 hr 50 mg PO 1400 bupropion HCl 150 mg tablet sustained-release 12 hr 300 mg PO 1400 levothyroxine 25 mcg tablet 150 mcg PO DAILY Duaneacidophjanetasei,B. lactis 1 EACH capsule 1 ea PO DAILY aspirin 81 MG tablet,delayed release (DR/EC) 81 mg PO DAILY methmomo-mervat-s.rxoi-hrdre-ims 120-0.12-10.8 mg Tablet 1 tab PO PRN PRN (Reason: Bladder Spasms) ondansetron [ondansetron] 4 mg tablet,disintegrating 4 mg PO Q8H PRN PRN (Reason: Nausea) Qty: 10 0RF Primary Care Provider: Sue Weber Referrals: Sue Weber MD [Primary Care Provider] - 3-5 Days if not improving Disposition Disposition: Home, Self Care What to do if you have Problems For any increased pain, shortness of breath, bleeding, nausea or vomiting, chestpain, or any unexpected problems, contact your Primary Care Provider. Call [facility] ([phone]) or report to the closest Emergency Room. Call 911 if necessary. 01/28/23 1501 <Electronically signed by Paco Miller MD> Cosigner Signature (if applicable): CC: Dr. Sue Weber MD ~ Signed ADDENDUM by Dr. Paco Miller MD on 01/28/23 at 1508 We talked with the patient about the normal ultrasound. She states she was concerned why it hurts so much. But it is still a very localized area on the proximal lateral aspect of her calf. I feel no mass. But it is tender pressing. There is no redness. Her pulses both dorsalis pedis and posterior tibial are bounding and normal after this. There is no color change. Capillaryrefill is normal. There is no erythema fluctuance or warmth. No sign of infection. There is no sign on exam of arterial insufficiency. There is no sign of DVT here deeper fluid collection. She states she had something similar to this when she had a hip strain. I will give her some meds for pain. We discussed returning if she develops any swelling, increasing pain, fevers, redness, distal numbness or any other concerns. 01/28/23 1508<Electronically signed by Paco Miller MD> Cosigner Signature (if applicable): cc: Dr. Sue Weber MD ~* Signed [facility] Work Phone: 1(693) 256-126508-28-2023 History of Present illness Narrative* Sue Weber MD - 01/19/2023 3:00 PM EDT Chief Complaint Patient presents with: ER F/U HPI Payton Mcqueen is a 57 year old female who presents here today for a ED follow up. Pt seen at [facility] ED on 01/17/23 for an allergic reaction. The rash was on both lower legs, scalp, and face, felt like she was on fire and her skin was puffy, hands were puffy. She states it has improved, lower leg is still slightly red. She isn't sure if this was a reaction to the antibiotic she wason, rash appeared last day of antibiotic and she had been on the antibiotic in the past with no problems. She was given Medrol Dose katie and that caused nausea and rash was not improving. She was given an injectable steroid which she tolerated well. She has been taking Pepcid and Benadryl. She was under extreme stress for about a week prior to the rash starting. She is afraid that the rash is going to come back, especially since unsure what actually triggered her body to react with the rash. Shedid have a bit of a vaginal yeast infection while on the antibiotic. She did see the new Hem/Onc Dr. Davis and was happy with her visit, all her questions were answered and she was reassured of any worries and concerns she had. She left feeling good and less stressed about her health issues and her numbers. She is scheduled to have a colonoscopy. [facility] ED visit: HPI History of Present Illness Chief Complaint: Rash Informant: patient Narrative Narrative: Patient presents with a rash to bilateral lower shins. This started about a day or so ago. It is very pruritic. She was seen in urgent care. They gave her Pepcid. They gave her Medrol Dosepak but she states when she takes steroids she gets nauseated. She does not feel she can continue taking them even if I provide medicine for nausea. I will give her something here though to help current symptoms. But she states nausea started only after the Medrol. She thinks Benadryl helped. She says overall the rash is getting better. But she states she has the rash visible on the ramirez but she has itching in the shins arms top of her head and other areas. She feels itchy all over. No trouble breathing. No abdominal pain nausea vomiting. She is not diabetic also. She cannot think of any new exposures or chemicals or meds. Medical decision making narrative: I discussed options with the patient. I explained that there are limited medicines for allergic reaction. She can take Pepcid once a day. She already has Benadryl at home and feels that that worked the best. I explained how she can take that and how much. I explained she does not need epinephrine. I can certainly give her a shot of Kenalog that would bypass the nausea that she gets with steroids.She would like to do this. I do not think she needs imaging or labs at this time. Past medical history, appointments, medications, allergies reviewed. Previous Medical History PAST MEDICAL HISTORY Diagnosis Date Acute gastritis without mention of hemorrhage Anxiety Benign neoplasm of stomach Cervical disc disorder with radiculopathy 02/18/2010 Cyst of ovary 01/01/2015 [facility] - see scanned documents Depressive disorder, not elsewhere classified Essential thrombocythemia (HCC) 06/02/2016 GERD (gastroesophageal reflux disease) Hypertension 08/28/11 IC (interstitial cystitis) Impaired fasting glucose 04/02/2010 Lumbar disc disease with radiculopathy 11/15/2010 Metabolic syndrome X Morbid obesity with BMI of 40.0-44.9, adult (HCC) 08/29/2013 Renal cyst, left 07/03/2016 18 mm, 06/18/16 Sciatica SI (sacroiliac) joint dysfunction 06/04/2011 Thoracolumbar back pain 07/20/2013 Unspecified hypothyroidism Urinary calculus, unspecified Renal stones Previous Surgical History PAST SURGICAL HISTORY Procedure Laterality Date CHOLECYSTECTOMY 1991 Cholecystectomy CYSTOSCOPY,DIL BLADDER,LOCAL ANESTH 01/18/14 EGD TRANSORAL BIOPSY SINGLE/MULTIPLE 04/09/2007 gastritis, gastric polyps KIDNEY SURGERY HX 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 6 weeks Erythromycin GI Upset Lisinopril Unknown Cough, hypotension Metformin GI Upset Mobic [Meloxicam] Vomiting Prochlorperazine Mental Status Change Agitation, felt ill Toradol [Ketorolac] Vomiting Vesicare [Solifenac* Rash Current Medications Current Outpatient Medications on File Prior to Visit Medication Sig methylPREDNISolone (MEDROL, KATIE,) 4 mg Dose-Pack Follow dosing instructions, take with food. famotidine (PEPCID) 20 mg tablet Take 1 tablet by mouth twice daily for 7 days. loratadine (CLARITIN) 10 mg tablet Take 1 tablet by mouth once daily for 7 days. busPIRone (BUSPAR) 15 mg tablet Take 1 tablet by mouth three times daily. methenam/sod phos/mblue/hyoscy (UROGESIC-BLUE ORAL) Take 1 capsule by mouth once daily. meloxicam (MOBIC) 15 mg tablet Take 1 tablet by mouth once daily. (Patient not taking: Reported on 01/15/2023) levothyroxine (SYNTHROID) 150 mcg tablet Take 1 tablet by mouth daily before breakfast. cyclobenzaprine (FLEXERIL) 10 mg tablet Take 1 tablet by mouth three times daily as needed for muscle spasm. (Patient not taking: Reported on 01/15/2023) omeprazole (PRILOSEC) 40 mg capsule TAKE ONE CAPSULE BY MOUTH EVERY DAY buPROPion XL (WELLBUTRIN XL) 300 mg 24 hr tablet Take 1 tablet by mouth once daily. sucralfate (CARAFATE) 1 gram tablet Take 1 tablet by mouth four times daily. Before meals and at bedtime mirabegron (MYRBETRIQ) 50 mg Tb24 Take 1 tablet by mouth once daily. aspirin, enteric coated (ADULT LOW DOSE ASPIRIN) 81 mg EC tablet Take 1 tablet by mouth once daily.(Patient not taking: Reported on 01/15/2023) SACCHAROMYCES BOULARDII (PROBIOTIC, S.BOULARDII, ORAL) Take by mouth once daily. No current facility-administered medications on file prior to visit. Social History Social History Tobacco Use Smoking status: Never Smokeless tobacco: Never Vaping Use Vaping Use: Never used Substance Use Topics Alcohol use: Yes Comment: rarely Drug use: No EXAM: BP 160/80 Pulse 90 Resp 16 Wt 109.7 kg (241 lb 14.4 oz) LMP 05/09/2018 (Approximate) BMI 41.81 kg/m General Appearance: Well appearing, alert, in no acute distress, well-hydrated, well nourished. andObese. Skin: slight redness to the lower legs, improving. Lungs: Lungs clear to auscultation. No wheezing, rhonchi, rales.. Heart: RRR without murmur, gallop, or rubs. No ectopy. Health Maintenance List HEPATITIS B(1 of 3 - 3-dose series) Never done HEPATITIS C SCREENING Never done HIV SCREENING Never done COLORECTAL CANCER SCREENING Never done SHINGRIX VACCINE(1 of 2) Never done BP CONTROLLED (<130/80) due on 10/10/2018 DTAP,TDAP,TD(6 - Td or Tdap) due on 12/20/2018 HPV TESTING due on 04/10/2020 PAP TESTING due on 04/11/2020 COVID-19 VACCINE(3 - Moderna series) due on 02/11/2021 DEPRESSION ASSESSMENT due on 05/25/2022 INFLUENZA(1) due on 01/23/2023 MAMMOGRAM due on 01/01/2024 ANNUAL PCP TEAM CHRONIC DISEASE VISIT due on 01/08/2024 DIABETES SCREEN due on 12/24/2025 LIPID SCREEN due on 12/25/2027 HPV VACCINE Aged Out Data reviewed ER Reports from 01/16/23 ASSESSMENT/PLAN: 1. Rash - ICD9: 782.1, ICD10: R21 Improving Continue with Benadryl and Pepcid, can stop when rash has fully resolved 2. Vaginal yeast infection - ICD9: 112.1, ICD10: B37.31 Rx for diflucan given Follow up as needed. I agree with the Chief Complaint, ROS, and Past Histories independently gathered by the clinical data support analyst and the remaining scribed note accurately describes my personal service to the patient. Medical Decision Making: Problems: Low: Acute, uncomplicated illness or injury Risk: Moderate: Drug management Medical Decision Making Level: 3 - Low Sue Weber MD The documentation for this note was completed by Andreina Caicedo Ma acting as scribe for Sue Weber MD. January 19, 2023 3:06 PM. Andreina Caicedo Ma documented in this encounterMer[facility] Miscellaneous Notes* Telephone Encounter - Fe Pappas RN - 01/16/2023 8:15 PM EDT Reason for call: abdominal pain Outcome: Advised to treat at home per animation director provider, Dr. Dacosta. Doctor states these symptoms are typical following steroid medication. Patient should continue medication if feeling better in the morning. If the patient should develop new or worsening symptoms the patient should call back or report to the ED. Patient verbalized understanding and is agreeable to the plan. GO TO THE EMERGENCY ROOM OR CALL 911 IF: * You develop any new symptoms * Your condition worsens * You are concerned or anxious about your condition for any other reason. If you have any questions, you can call Nurse conference manager back. Reason for Disposition Patient sounds very sick or weak to the triager Per nursing judgment Answer Assessment - Initial Assessment Questions 1. LOCATION: Discomfort all over the abdominal area 2. RADIATION: Patient denies 3. ONSET: Patient states half hour after taking methylprednisolone 4. SUDDEN: Patient states she went to sleep and when she woke up her stomach was hurting 5. PATTERN Patient states constant pain since pain started 6. SEVERITY: Patient states 7-8/10 abdominal pain 7. RECURRENT SYMPTOM: Patient states she has had this pain before while taking prednisolone, patient states she was given another medication but this was years ago so she can't remember the medication name. 8. CAUSE: methylprednisolone prescribed by HCP at the urgent care for a rash today 01/16/2023 9. RELIEVING/AGGRAVATING FACTORS: Patient states she has not done anything to relieve stomach pain 10. OTHER SYMPTOMS: Nauseous, itching from her rash, hot feeling all over 11. : Patient states 3 or 4 years ago last menstrual cycle Protocols used: Abdominal Pain - [id number] documented in this encounterMer[facility]08-25-2023 History of Present illness Narrative* Suze Moreno APRN.CLERICAL SUPERVISOR - 01/16/2023 4:31 PM EDT Images from the original note were not included. Subjective Came in with complaints of bilateral itching on lower legs. Patient says sometimes it is on her face 2. Patient denies changing any lotions creams or laundry detergent. Patient denies being outside. Patient says she did just complete an antibiotic. Patient says it was Keflex. She is not sure if this caused it or not. The history is provided by the patient. No humanities and languages professor was used. Rash Review of Systems Constitutional: Negative. Skin: Positive for itching and rash. Objective Physical Exam Constitutional: Appearance: Normal appearance. Pulmonary: Effort: Pulmonary effort is normal. Skin: Comments: Patient does have bilateral macular papular erythematous rash. No signs of swelling or drainage. Neurological: Mental Status: She is alert. PAST MEDICAL HISTORY Diagnosis Date Acute gastritis without mention of hemorrhage Anxiety Benign neoplasm of stomach Cervical disc disorder with radiculopathy 02/18/2010 Cyst of ovary 01/01/2015 [facility] - see scanned documents Depressive disorder, not elsewhere classified Essential thrombocythemia (HCC) 06/02/2016 GERD (gastroesophageal reflux disease) Hypertension 08/28/11 IC (interstitial cystitis) Impaired fasting glucose 04/02/2010 Lumbar disc disease with radiculopathy 11/15/2010 Metabolic syndrome X Morbid obesity with BMI of 40.0-44.9, adult (HCC) 08/29/2013 Renal cyst, left 07/03/2016 18 mm, 06/18/16 Sciatica SI (sacroiliac) joint dysfunction 06/04/2011 Thoracolumbar back pain 07/20/2013 Unspecified hypothyroidism Urinary calculus, unspecified Renal stones PAST SURGICAL HISTORY Procedure Laterality Date CHOLECYSTECTOMY 1991 Cholecystectomy CYSTOSCOPY,DIL BLADDER,LOCAL ANESTH 01/18/14 EGD TRANSORAL BIOPSY SINGLE/MULTIPLE 04/09/2007 gastritis, gastric polyps KIDNEY SURGERY HX 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 Valadez PAST SURGICAL HISTORY OF WISDOM TEETH EXTRACTIONS PAST SURGICAL HISTORY OF 05/2012 bladder hydrodistension X 2 PAST SURGICAL HISTORY OF 2014 pain injection lumbar- multiple PAST SURGICAL HISTORY OF Cyst removed from head ALLERGIES Celebrex [Celecoxib], Erythromycin, Lisinopril, Metformin, Mobic [Meloxicam], Prochlorperazine, Toradol [Ketorolac], and Vesicare [Solifenacin] MEDICATIONS busPIRone (BUSPAR) 15 mg tablet Take 1 tablet by mouth three times daily. methenam/sod phos/mblue/hyoscy (UROGESIC-BLUE ORAL) Take 1 capsule by mouth once daily. levothyroxine (SYNTHROID) 150 mcg tablet Take 1 tablet by mouth daily before breakfast. omeprazole (PRILOSEC) 40 mg capsule TAKE ONE CAPSULE BY MOUTH EVERY DAY buPROPion XL (WELLBUTRIN XL) 300 mg 24 hr tablet Take 1 tablet by mouth once daily. sucralfate (CARAFATE) 1 gram tablet Take 1 tablet by mouth four times daily. Before meals and at bedtime mirabegron (MYRBETRIQ) 50 mg Tb24 Take 1 tablet by mouth once daily. SACCHAROMYCES BOULARDII (PROBIOTIC, S.BOULARDII, ORAL) Take by mouth once daily. methylPREDNISolone (MEDROL, KATIE,) 4 mg Dose-Pack Follow dosing instructions, take with food. famotidine (PEPCID) 20 mg tablet Take 1 tablet by mouth twice daily for 7 days. loratadine (CLARITIN) 10 mg tablet Take 1 tablet by mouth once daily for 7 days. meloxicam (MOBIC) 15 mg tablet Take 1 tablet by mouth once daily. (Patient not taking: Reported on 01/15/2023) cyclobenzaprine (FLEXERIL) 10 mg tablet Take 1 tablet by mouth three times daily as needed for muscle spasm. (Patient not taking: Reported on 01/15/2023) aspirin, enteric coated (ADULT LOW DOSE ASPIRIN) 81 mg EC tablet Take 1 tablet by mouth once daily.(Patient not taking: Reported on 01/15/2023) FAMILY HISTORY Problem Relation Age of Onset Diabetes Father Hypertension Father Cancer Maternal Grandmother Lymphoma Heart Maternal Grandfather hypertension Hypertension Brother Social History Tobacco Use Smoking status: Never Smokeless tobacco: Never Vaping Use Vaping Use: Never used Substance Use Topics Alcohol use: Yes Comment: rarely Drug use: No ASSESSMENT/PLAN: 1. Itching - ICD9: 698.9, ICD10: L29.9 (primary diagnosis) - FAMOTIDINE 20 MG TABLET - LORATADINE 10 MG TABLET 2. Allergic contact dermatitis due to plants, except food - ICD9: 692.6, ICD10: L23.7 - METHYLPREDNISOLONE 4 MG TABLETS IN A DOSE PACK Renal dose was chosen due to patient not liking the way prednisone made her feel. Patient was instructed about proper use of medication and supportive therapies. Patient will follow-up if signs and symptoms seem to be getting worse not better. Patient was okay with this care plan. Suze Moreno APRN.CLERICAL SUPERVISOR documented in this encounterMer[facility]08-25-2023 Discharge summary Author Paco Miller [facility] January 16, 2023 10:47pm Note Date/Time January 16, 2023 10 :46pm [facility] Medical Records Department [address] [place] [id number] Emergency Department Summary 01/16/23 MR#: [id number] Acct: [id number] Name: PAYTON MCQUEEN Rep #:[id number] : 1965 57 From: Paco Miller MD PCP: Dr. Sue Weber MD Status:RE G ER Location: ED HPI History of Present Illness Chief Complaint: Rash Informant: patient Narrative Narrative: Patient presents with a rash to bilateral lower shins. This started about a dayor so ago. It is very pruritic. She was seen in urgent care. They gave her Pepcid. They gave her Medrol Dosepak but she states when she takes steroids shegets nauseated. She does not feel she can continue taking them even if I provide medicine for nausea. I will give her something here though to help current symptoms. But she states nausea started only after the Medrol. She thinks Benadryl helped. She says overall the rash is getting better. But she states she has the rash visible on the ramirez but she has itching in the shins arms top of her head and other areas. She feels itchy all over. No trouble breathing. No abdominal pain nausea vomiting. She is not diabetic also. She cannot think of any new exposures or chemicals or meds. [facility] Medical History Acute maxillary sinusitis, unspecified Anxiety Back pain Bladder distention Cancer Depression Essential thrombocythemia Gastric reflux History of stress test Hypertension Injury of back Interstitial cystitis Iron deficiency Knee pain Leukocytosis Low iron Malignant tumor of kidney Non-smoker Post-menopausal Pre-diabetes Severe headache Shoulder pain Stomach ulcer Thrombocytosis Thyroid disease Thyroid disease Vaginal candidiasis Home Medications buspirone 5 mg tablet 15 mg PO BID ANXIETY 08/28/15 [History Last Taken 01/15/19] mirabegron 25 mg tablet,extended release 24 hr 50 mg PO 1400 BLADDER 05/31/18 [History Last Taken 01/15/19] L.acidoph, paracasei,B. lactis 10 billion cell capsule 1 ea PO DAILY G[facility] 01/16/19 [History Last Taken 01/16/19] bupropion HCl 150 mg tablet,12 hr sustained-release 300 mg PO 1400 DEPRESSION 02/19/19 [History Last Taken Unknown] aspirin 81 mg tablet,delayed release 81 mg PO DAILY 07/04/19 [History Last Taken 02/10/21] d-mannose 1 ea PO DAILY 02/28/20 [History Last Taken Unknown] oydpuwnmoy-epqmd-t.bpae-kzvziwwr-sknfak 120 mg-0.12 mg-10.8 mg tablet 1 tab PO PRN PRN Bladder Spasms 02/15/21 [History Last Taken Unknown] buspirone 15 mg tablet 15 mg PO BID 12/03/21 [History Last Taken Unknown] doxepin 10 mg capsule 10 mg PO QHS 12/03/21 [History Last Taken Unknown] levothyroxine 150 mcg tablet 150 mcg PO DAILY 12/03/21 [History Last Taken Unknown] levothyroxine 25 mcg tablet 150 mcg PO DAILY THYROID 12/03/21 [History Last Taken Unknown] omeprazole 40 mg capsule,delayed release 40 mg PO DAILY 12/03/21 [History Last Taken Unknown] ondansetron 4 mg disintegrating tablet 4 mg PO Q8H PRN PRN Nausea #10 tabs 01/16/23 [Rx Last Taken Unknown] Allergy/AdvReac Type Severity Reaction Status Date / Time ketorolac tromethamine Allergy Severe Hives Verified 01/06/23 14:57 [From Toradol] solifenacin succinate Allergy Severe Hives Verified 01/06/23 14:57 [From Vesicare] erythromycin base AdvReac Severe Nausea/Vom/ Verified 01/06/23 14:57 [Erythromycin Base] Diarrhea celecoxib [From Celebrex] AdvReac Intermediate Nausea/Vom/ Verified 01/06/23 14:57 Diarrhea lisinopril AdvReac Mild Vomiting Verified 01/06/23 14:57 Family History Father Diabetes Heart disease Hypertension Grandmother Cancer Surgical History History of cholecystectomy History of root canal procedure partial kidney removed Social History number of children: 0 current occupational status: employed current occupation: [employer] Smoking Status: Never smoker alcohol intake: never substance use type: does not use seatbelt use: sometimes do you feel safe at home: Yes additional social history: single ROS ROS ED Constitutional Constitutional ED: Denies chills, fever(s), subjective or sweats Eyes Eyes: Denies change in vision ENT ENT ED: Denies ear pain, rhinorrhea or sore throat Cardiovascular Cardiovascular: Denies chest pain Respiratory/Chest Respiratory/Chest: Denies cough or dyspnea Gastrointestinal Gastrointestinal: Reports nausea; Denies abdominal pain or vomiting Musculoskeletal Musculoskeletal: Denies back pain or myalgias Integumentary Reports rash Neurologic Neurologic: Denies paresthesias or weakness Psychiatric Psychiatric: Reports anxiety Hematologic/Lymphatic Hematologic/Lymphatic: Denies easy bleeding or easy bruising Allergic/Immunologic Allergic/Immunologic ED: Denies urticaria EXAM Physical Exam Narrative Exam Narrative: Patient awake alert comfortable sitting in bed. She walked back to the room without difficulties. HEENT shows no sign of swelling or redness. Intraoral area shows normal moist mucous membranes. No rash. No petechiae. Voice is normal. Eyes show no injection or icterus. Neck is supple and no stridor. Heart is regular. No murmur. Lungs are clear and there is no wheezing. Abdomen is obese but benign. Extremities show no deformity or swelling. Skin does show some lacy erythema to the anterior shins mostly lower. It blanches easily. Although she has history of thrombocytosis, she just [facility] and her platelets were above normal but low for her. But these arenot petechiae or purpura at all. I do not see rashes anywhere else. They are very mild also. Const Vital Signs: 01/16/23 22:27 Temperature 97.5 F L Temperature Source Temporal Pulse Rate 98 Respiratory Rate 16 Blood Pressure 182/85 H Blood Pressure Mean 117 Pulse Ox 99 Oxygen Delivery Method Room Air MDM MDM MDM Narrative Medical decision making narrative: I discussed options with the patient. I explained that there are limited medicines for allergic reaction. She can take Pepcid once a day. She already has Benadryl at home and feels that that worked the best. I explained how she can take that and how much. I explained she does not need epinephrine. I can certainly give her a shot of Kenalog that would bypass the nausea that she gets with steroids. She would like to do this. I do not think she needs imaging or labs at this time. Discharge Plan Triage Chief Complaint: Rash ED Provider: Paco Miller Dx/Rx/DC Orders Clinical Impression: Rash, Pruritus Instructions: ED General Allergic Reactions Prescriptions: New ondansetron [ondansetron] 4 mg tablet,disintegrating 4 mg PO Q8H PRN PRN (Reason: Nausea) Qty: 10 0RF No Action d-mannose Powder 1 ea PO DAILY doxepin 10 mg capsule 10 mg PO QHS buspirone 15 mg tablet 15 mg PO BID levothyroxine 150 mcg tablet 150 mcg PO DAILY omeprazole 40 mg capsule,delayed release(DR/EC) 40 mg PO DAILY buspirone 5 MG tablet 15 mg PO BID mirabegron 25 mg tablet extended release 24 hr 50 mg PO 1400 bupropion HCl 150 mg tablet sustained-release 12 hr 300 mg PO 1400 levothyroxine 25 mcg tablet 150 mcg PO DAILY L.acidoph, paracasei,B. lactis 1 EACH capsule 1 ea PO DAILY aspirin 81 MG tablet,delayed release (DR/EC) 81 mg PO DAILY lnsyxg-luqjz-l.dzgz-mru-vxmnud 120-0.12-10.8 mg Tablet 1 tab PO PRN PRN (Reason: Bladder Spasms) Primary Care Provider: Sue Weber Referrals: Sue Weber MD [Primary Care Provider] - 3-5 Days Disposition Disposition: Home, Self Care What to do if you have Problems For any increased pain, shortness of breath, bleeding, nausea or vomiting, chestpain, or any unexpected problems, contact your Primary Care Provider. Call [facility] ([phone]) or report to the closest Emergency Room. Call 911 if necessary. 01/16/232246 <Electronically signed by Paco Miller MD> Cosigner Signature (if applicable): CC: Dr. Sue Weber MD ~ Signed [facility] Work Phone: [phone] 228-776808-24-2023 History of Present illness Narrative* Gadiel Davis MD - 01/15/2023 2:59 PM EDT HISTORY OF PRESENT ILLNESS: Payton Mcqueen is a 57 year old female dx with ET in 2019, was on Hydrea but had nausea and vomiting. Since developed iron deficiency, Dr Pineda attributed to cystitis. Here for follow up a=was seeing heme at [facility] last few times. Looks like dx morphed from ET to PCV in notes. She has never had erythrocytosis. Dr Caputo' notes reviewed also CLINICAL IMPRESSION: ET, JAK2 positive Not clear how much her iron deficiency is contributing to her thrombocytosis. At time of diagnosis,her H/H were normal with normal MCV RECOMMENDATION/PLAN: 1. Will try iron supps, with OJ 2. Recheck cbc with iron studies in 3 weeks 3. She needs GI work up as well, referral to surgery for EGD and colonoscopy made. Written and verbal health teaching given to patient, patient verbalizes understanding and agrees with treatment plan. PAST MEDICAL HISTORY Diagnosis Date Acute gastritis without mention of hemorrhage Anxiety Benign neoplasm of stomach Cervical disc disorder with radiculopathy 02/18/2010 Cyst of ovary 01/01/2015 [facility] - see scanned documents Depressive disorder, not elsewhere classified Essential thrombocythemia (HCC) 06/02/2016 GERD (gastroesophageal reflux disease) Hypertension 08/28/11 IC (interstitial cystitis) Impaired fasting glucose 04/02/2010 Lumbar disc disease with radiculopathy 11/15/2010 Metabolic syndrome X Morbid obesity with BMI of 40.0-44.9, adult (HCC) 08/29/2013 Renal cyst, left 07/03/2016 18 mm, 06/18/16 Sciatica SI (sacroiliac) joint dysfunction 06/04/2011 Thoracolumbar back pain 07/20/2013 Unspecified hypothyroidism Urinary calculus, unspecified Renal stones PAST SURGICAL HISTORY Procedure Laterality Date CHOLECYSTECTOMY 1991 Cholecystectomy CYSTOSCOPY,DIL BLADDER,LOCAL ANESTH 01/18/14 EGD TRANSORAL BIOPSY SINGLE/MULTIPLE 04/09/2007 gastritis, gastric polyps KIDNEY SURGERY HX 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 Valadez PAST SURGICAL HISTORY OF WISDOM TEETH EXTRACTIONS PAST SURGICAL HISTORY OF 05/2012 bladder hydrodistension X 2 PAST SURGICAL HISTORY OF 2014 pain injection lumbar- multiple PAST SURGICAL HISTORY OF Cyst removed from head FAMILY HISTORY Problem Relation Age of Onset Diabetes Father Hypertension Father Cancer Maternal Grandmother Lymphoma Heart Maternal Grandfather hypertension Hypertension Brother Social History Tobacco Use Smoking status: Never Smokeless tobacco: Never Vaping Use Vaping Use: Never used Substance Use Topics Alcohol use: Yes Comment: rarely Drug use: No ALLERGIES: ALLERGIES Allergen Reactions Celebrex [Celecoxib] upsets stomach after prolonged use ie. 6 weeks Erythromycin GI Upset Lisinopril Unknown Cough, hypotension Metformin GI Upset Mobic [Meloxicam] Vomiting Prochlorperazine Mental Status Change Agitation, felt ill Toradol [Ketorolac] Vomiting Vesicare [Solifenac* Rash CURRENT OUTPATIENT MEDICATIONS: busPIRone (BUSPAR) 15 mg tablet Take 1 tablet by mouth three times daily. methenam/sod phos/mblue/hyoscy (UROGESIC-BLUE ORAL) Take 1 capsule by mouth once daily. levothyroxine (SYNTHROID) 150 mcg tablet Take 1 tablet by mouth daily before breakfast. omeprazole (PRILOSEC) 40 mg capsule TAKE ONE CAPSULE BY MOUTH EVERY DAY buPROPion XL (WELLBUTRIN XL) 300 mg 24 hr tablet Take 1 tablet by mouth once daily. mirabegron (MYRBETRIQ) 50 mg Tb24 Take 1 tablet by mouth once daily. SACCHAROMYCES BOULARDII (PROBIOTIC, S.BOULARDII, ORAL) Take by mouth once daily. meloxicam (MOBIC) 15 mg tablet Take 1 tablet by mouth once daily. (Patient not taking: Reported on 01/15/2023) cyclobenzaprine (FLEXERIL) 10 mg tablet Take 1 tablet by mouth three times daily as needed for muscle spasm. (Patient not taking: Reported on 01/15/2023) sucralfate (CARAFATE) 1 gram tablet Take 1 tablet by mouth four times daily. Before meals and at bedtime (Patient not taking: Reported on 01/15/2023) aspirin, enteric coated (ADULT LOW DOSE ASPIRIN) 81 mg EC tablet Take 1 tablet by mouth once daily.(Patient not taking: Reported on 01/15/2023) REVIEW OF SYSTEMS: GENERAL: No fever, night sweats, weight loss or malaise. All other reviewed and negative other than HPI. PHYSICAL EXAMINATION: VITAL SIGNS: BP 181/90 Pulse 71 Temp 97.8 Ht 5' 3.78 (1.62m) Wt 246 lb (111.6kg) LMP 05/09/2018 BMI 42.52 kg/(m^2). GENERAL APPEARANCE: Well appearing, in no acute distress, alert and oriented x3, well-hydrated, well nourished. I spent a total of 45 minutes on the date of the service which included preparing to see the patient, [id number] patient care, completing clinical documentation, obtaining and/or reviewing separately obtained history, counseling and educating the patient/family/caregiver, ordering medications, urszula ts, or procedures, independently interpreting results (not separately reported), and communicating results to the patient/family/caregiver. Electronically Signed: Gadiel Davis MD January 15, 2023 3:09 PM documented in this encounterMercy Health [facility]rb[facility] Hospital08-17-2023 Miscellaneous Notes* Telephone Encounter - Josy Arlene - 01/08/2023 11:12 AM EDT Patient returned call and scheduled. Arlene Ferris * Telephone Encounter - Arlene Ferris - 01/08/2023 9:06 AM EDT LM for patient to return call. When patient calls, please schedule OFFICE SWEEPER/THROMBOCYTOPENIA/SELF REFER* with Dr. Davis. Arlene Ferris * Telephone Encounter - Ramona Olson LPN - 01/07/2023 2:39 PM EDT Records printed from [facility]. Okay to schedule as a new patient with Dr. Davis. Patient is self referring. DX: essential thrombocythemia. Ramona Olson LPN * Telephone Encounter - Lela Escobar - 01/07/2023 2:29 PM EDT Spoke with patient. She will have records faxed to [employer]. * Telephone Encounter - Ramona Olson LPN - 01/07/2023 2:01 PM EDT Since it has been over 3 years since patient has been seen here she will need a new patient visit. I was able to pull records from Dr. Eric at [facility]. Please verify with patient that she hasn't seenanyone else in the meantime. Ramona Olson LPN * Telephone Encounter - Lela Escobar - 01/07/2023 12:32 PM EDT Patient called asking to re establish with Denise. She states she can have records sent to us prior to visit. Last OV was 03/[address] Pineda. Please advise patient if records are needed and if labs/testing are needed prior to appointment. documented in this encounterMercy Health Urbana Hospital08-16-2023 Instructions* Patient Instructions* Carly Lewis APRN.BUD - 01/07/2023 3:38 PM EDT Start the cephalexin twice daily. Start the silvadine -- thin layer. Let us know if no better or any worsening. documented in this encounterMercy Health Urbana Hospital08-16-2023 History of Present illness Narrative* Carly Lewis APRN.BUD - 01/07/2023 3:06 PM EDT This is a 57 year old female who presents today with: Patient presents with: Acute Visit: Burnt top of L thumb 10 days ago, continues to have pain/swelling HISTORY OF PRESENT ILLNESS: Payton Mcqueen is a 57 year old female. Patient presents with: Acute Visit: Burnt top of L thumb 10 days ago, continues to have pain/swelling Pt presents today with complaint Appx 12/25 or 12/26, she burnt her left hand when she was taking something out of the oven. Burnt her left thumb and webbing. Had a small blister. Continues to be painful and has intermittent swelling. Has been applying neosporin to th area. Difficult to fully bend, as feels swollen/tight. Had appt with hematology yesterday. Appt was frustrating for her. She is planning to transfer back to [facility] hematology. Thinks that is causing her BP to be elevated. PAST MEDICAL HISTORY: PAST MEDICAL HISTORY Diagnosis Date Acute gastritis without mention of hemorrhage Anxiety Benign neoplasm of stomach Cervical disc disorder with radiculopathy 02/18/2010 Cyst of ovary 01/01/2015 [facility] - see scanned documents Depressive disorder, not elsewhere classified Essential thrombocythemia (HCC) 06/02/2016 GERD (gastroesophageal reflux disease) Hypertension 08/28/11 IC (interstitial cystitis) Impaired fasting glucose 04/02/2010 Lumbar disc disease with radiculopathy 11/15/2010 Metabolic syndrome X Morbid obesity with BMI of 40.0-44.9, adult (HCC) 08/29/2013 Renal cyst, left 07/03/2016 18 mm, 06/18/16 Sciatica SI (sacroiliac) joint dysfunction 06/04/2011 Thoracolumbar back pain 07/20/2013 Unspecified hypothyroidism Urinary calculus, unspecified Renal stones PAST SURGICAL HISTORY Procedure Laterality Date CHOLECYSTECTOMY 1991 Cholecystectomy CYSTOSCOPY,DIL BLADDER,LOCAL ANESTH 01/18/14 EGD TRANSORAL BIOPSY SINGLE/MULTIPLE 04/09/2007 gastritis, gastric polyps KIDNEY SURGERY HX 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 Valadez PAST SURGICAL HISTORY OF WISDOM TEETH EXTRACTIONS PAST SURGICAL HISTORY OF 05/2012 bladder hydrodistension X 2 PAST SURGICAL HISTORY OF 2014 pain injection lumbar- multiple PAST SURGICAL HISTORY OF Cyst removed from head ALLERGIES Celebrex [Celecoxib], Erythromycin, Lisinopril, Metformin, Prochlorperazine, Toradol [Ketorolac], and Vesicare [Solifenacin] MEDICATIONS Current Outpatient Medications Medication Sig busPIRone (BUSPAR) 15 mg tablet Take 1 tablet by mouth three times daily. methenam/sod phos/mblue/hyoscy (UROGESIC-BLUE ORAL) Take 1 capsule by mouth once daily. levothyroxine (SYNTHROID) 150 mcg tablet Take 1 tablet by mouth daily before breakfast. omeprazole (PRILOSEC) 40 mg capsule TAKE ONE CAPSULE BY MOUTH EVERY DAY buPROPion XL (WELLBUTRIN XL) 300 mg 24 hr tablet Take 1 tablet by mouth once daily. mirabegron (MYRBETRIQ) 50 mg Tb24 Take 1 tablet by mouth once daily. SACCHAROMYCES BOULARDII (PROBIOTIC, S.BOULARDII, ORAL) Take by mouth once daily. meloxicam (MOBIC) 15 mg tablet Take 1 tablet by mouth once daily. cyclobenzaprine (FLEXERIL) 10 mg tablet Take 1 tablet by mouth three times daily as needed for muscle spasm. sucralfate (CARAFATE) 1 gram tablet Take 1 tablet by mouth four times daily. Before meals and at bedtime aspirin, enteric coated (ADULT LOW DOSE ASPIRIN) 81 mg EC tablet Take 1 tablet by mouth once daily. No current facility-administered medications for this visit. FAMILY HISTORY Problem Relation Age of Onset Diabetes Father Hypertension Father Cancer Maternal Grandmother Lymphoma Heart Maternal Grandfather hypertension Hypertension Brother Social History Tobacco Use Smoking status: Never Smokeless tobacco: Never Vaping Use Vaping Use: Never used Substance Use Topics Alcohol use: Yes Comment: rarely Drug use: No EXAM: BP 178/100 Pulse 92 Resp 16 LMP 05/09/2018 (Approximate) SpO2 97% Recheck - 152/82 PHYSICAL EXAM: General Appearance: Well appearing, alert, in no acute distress, well-hydrated, well nourished.. Skin: Skin color, texture, turgor normal, no suspicious rashes or lesions. Head: Normocephalic, no masses, lesions, tenderness or abnormalities. Eyes: Anicteric sclera. Extraocular movements are intact. . Extremities: No deformities, edema, skin discoloration, clubbing or cyanosis. Good capillary refill. Left thumb with some redness and mild swelling. Neurologic: Gait normal. ASSESSMENT/PLAN: 1. Thumb pain, left - ICD9: 729.5, ICD10: M79.645 With duration of symptoms, redness, and pain, concern for possible infection. Will start keflex. Thin layer of silvadine to the area. She reports prone to yeast infections w/ antibiotics -- fluconazole ordered. - SILVER SULFADIAZINE 1 % TOPICAL CREAM - CEPHALEXIN 500 MG CAPSULE - FLUCONAZOLE 150 MG TABLET Discussed treatment plan and patient voices understanding. Patient's questions answered appropriately. Medications and potential side effects were discussed and patient voices understanding. . Return to the office as scheduled or as needed for worsening/no improvement. Carly Lewis APRN.CLERICAL SUPERVISOR documented in this encounterMercy Health [facility]rb[facility]08-09-2023 History of Present illness Narrative* Tigist Robertson LPN - 12/31/2022 4:40 PM EDT Scan on 12/31/2022 3:19 PM by Provider, AYESHA Nieves: Mammography documented in this encounterMercy Health [facility]08-02-2023 Instructions* Patient Instructions* Carly Lewis APRN.CNP - 12/24/2022 11:18 AM EDT Get labs done. Let us know documented in this encounterMercy Health [facility]rbana [facility]08-02-2023 History of Present illness Narrative* Carly Lewis APRN.BUD - 12/24/2022 11:01 AM EDT This is a 57 year old female who presents today with: Patient presents with: Follow Up: Feels like Thyroid is messed up. HISTORY OF PRESENT ILLNESS: Payton Mcqueen is a 57 year old female. Patient presents with: Follow Up: Feels like Thyroid is messed up. Pt presents today with complaint of possible thyroid symptoms. Thinks that thyroid needs tested. Was going to have it tested in July, then decided to wait. Refers that she had a jittery feeling, starting to not sleep well. Refers some cold intolerance. No diarrhea/constipation. Refers that intermittently will forget thyroid medication -- not more than once weekly. Refers that anxiety has been controlled with current medication regimen. PAST MEDICAL HISTORY: PAST MEDICAL HISTORY Diagnosis Date Acute gastritis without mention of hemorrhage Anxiety Benign neoplasm of stomach Cervical disc disorder with radiculopathy 02/18/2010 Cyst of ovary 01/01/2015 [facility] - see scanned documents Depressive disorder, not elsewhere classified Essential thrombocythemia (HCC) 06/02/2016 GERD (gastroesophageal reflux disease) Hypertension 08/28/11 IC (interstitial cystitis) Impaired fasting glucose 04/02/2010 Lumbar disc disease with radiculopathy 11/15/2010 Metabolic syndrome X Morbid obesity with BMI of 40.0-44.9, adult (HCC) 08/29/2013 Renal cyst, left 07/03/2016 18 mm, 06/18/16 Sciatica SI (sacroiliac) joint dysfunction 06/04/2011 Thoracolumbar back pain 07/20/2013 Unspecified hypothyroidism Urinary calculus, unspecified Renal stones PAST SURGICAL HISTORY Procedure Laterality Date CHOLECYSTECTOMY 1991 Cholecystectomy CYSTOSCOPY,DIL BLADDER,LOCAL ANESTH 01/18/14 EGD TRANSORAL BIOPSY SINGLE/MULTIPLE 04/09/2007 gastritis, gastric polyps KIDNEY SURGERY HX 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 Valadez PAST SURGICAL HISTORY OF WISDOM TEETH EXTRACTIONS PAST SURGICAL HISTORY OF 05/2012 bladder hydrodistension X 2 PAST SURGICAL HISTORY OF 2015 pain injection lumbar- multiple PAST SURGICAL HISTORY OF Cyst removed from head ALLERGIES Celebrex [Celecoxib], Erythromycin, Lisinopril, Metformin, Prochlorperazine, Toradol [Ketorolac], and Vesicare [Solifenacin] MEDICATIONS Current Outpatient Medications Medication Sig busPIRone (BUSPAR) 15 mg tablet Take 1 tablet by mouth three times daily. methenam/sod phos/mblue/hyoscy (UROGESIC-BLUE ORAL) Take 1 capsule by mouth once daily. meloxicam (MOBIC) 15 mg tablet Take 1 tablet by mouth once daily. levothyroxine (SYNTHROID) 150 mcg tablet Take 1 tablet by mouth daily before breakfast. cyclobenzaprine (FLEXERIL) 10 mg tablet Take 1 tablet by mouth three times daily as needed for muscle spasm. omeprazole (PRILOSEC) 40 mg capsule TAKE ONE CAPSULE BY MOUTH EVERY DAY buPROPion XL (WELLBUTRIN XL) 300 mg 24 hr tablet Take 1 tablet by mouth once daily. sucralfate (CARAFATE) 1 gram tablet Take 1 tablet by mouth four times daily. Before meals and at bedtime mirabegron (MYRBETRIQ) 50 mg Tb24 Take 1 tablet by mouth once daily. aspirin, enteric coated (ADULT LOW DOSE ASPIRIN) 81 mg EC tablet Take 1 tablet by mouth once daily. SACCHAROMYCES BOULARDII (PROBIOTIC, S.BOULARDII, ORAL) Take by mouth once daily. No current facility-administered medications for this visit. FAMILY HISTORY Problem Relation Age of Onset Diabetes Father Hypertension Father Cancer Maternal Grandmother Lymphoma Heart Maternal Grandfather hypertension Hypertension Brother Social History Tobacco Use Smoking status: Never Smokeless tobacco: Never Vaping Use Vaping Use: Never used Substance Use Topics Alcohol use: Yes Comment: rarely Drug use: No EXAM: BP (P) 128/62 Pulse (P) 82 LMP 05/09/2018 (Approximate) SpO2 (P) 97% PHYSICAL EXAM: General Appearance: Well appearing, alert, in no acute distress, well-hydrated, well nourished.. Skin: Skin color, texture, turgor normal, no suspicious rashes or lesions. Head: Normocephalic, no masses, lesions, tenderness or abnormalities. Eyes: Anicteric sclera. Extraocular movements are intact. . Lungs: Lungs clear to auscultation. No wheezing, rhonchi, rales.. Heart: RRR without murmur, gallop, or rubs. No ectopy. Neurologic: Gait normal. ASSESSMENT/PLAN: 1. Jittery - ICD9: 799.21, ICD10: R45.0 (primary diagnosis) Will check thyroid and other routine labs. - TSH BLD - T4 FREE/FREE THYROX - MAGNESIUM BLD - COMP METABOLIC PANEL 2. Screening for hyperlipidemia - ICD9: V77.91, ICD10: Z13.220 - LIPID PANEL, NONFASTING 3. Hypothyroidism, unspecified type - ICD9: 244.9, ICD10: E03.9 Check labs. - TSH BLD - T4 FREE/FREE THYROX 4. Essential thrombocythemia (HCC) - ICD9: 238.71, ICD10: D47.3 Follows w/ hematology at [facility] and has an appt scheduled next week. Refers CBC will be checked there. 5. Impaired glucose tolerance - ICD9: 790.22, ICD10: R73.02 - COMP METABOLIC PANEL - HGB A1C 6. Visit for screening mammogram - ICD9: V76.12, ICD10: Z12.31 - Set up for mammogram, yearly mammogram recommended - [facility] SCREENING [facility] ED Discussed treatment plan and patient voices understanding. Patient's questions answered appropriately. Medications and potential side effects were discussed and patient voices understanding. Return to the office as scheduled or as needed for worsening/no improvement. Carly Lewis APRN.CLERICAL SUPERVISOR documented in this encounterMercy Health [facility]08-01-2023 Miscellaneous Notes* Telephone Encounter - Dary Rodriguez LPN - 12/23/2022 1:09 PM EDT Pt notified of provider message. Appt scheduled. Dary Rodriguez LPN * Telephone Encounter - Andreina Caicedo Ma - 12/22/2022 4:42 PM EDT Message left for pt to call back. Andreina Caicedo Ma * Telephone Encounter - Burke Snider APRN.CNP - 12/22/2022 4:33 PM EDT Her visit was [address] Weber. If she is having any problems or new symptoms, she needs an appointment Burke Snider CNP * Telephone Encounter - Sana Hansen RN - 12/22/2022 2:43 PM EDT Patient calling to ask if thyroid labs can be checked. She says she is feeling a little jittery andthought PCP mentioned getting re-check at last OV on 09/26. Sana Hansen RN documented in this encounterMercy Health [facility]ana Hospital2023 History of Present illness Narrative* Yefri Echavarria MD - 10/30/2022 3:49 PM EDT Yefri Echavarria MD Department of Orthopaedics Orthopaedics [address] [place] [id number] Dept: [phone] Dept October 30, 2022 CHIEF COMPLAINT: New and Pain of the Right Hip HPI Patient here today for right hip pain x 1 month. She states she was getting ready for work and felt a pop in the hip. She ended up going to [facility] ED due to the pain. She gives history for prior SI joint problems years ago. Works at [employer] and carries a backpack around as she is walking. She has been out of school for about 2 weeks and notices a great improvement in the hip pain since school has been out. She has been walking for exercise. ASSESSMENT: M16.11 Primary osteoarthritis of right hip (primary encounter diagnosis) M25.551 Acute pain of right hip PLAN: Arthritic changes in the right hip, greater than left. We discussed different treatment options forhip arthritis and pain. She would like to try an anti- inflammatory for now. May consider cortisone injection. Weight loss will be important as she may need a hip surgery down the line. FOLLOW UP INSTRUCTIONS: As needed Ms. Payton Mcqueen was advised as to contrast therapies and/or to take analgesics/anti-inflammatories as needed and all contraindications were reviewed. OBJECTIVE: Ms. Payton Mcqueen is a pleasant 57 year old in no apparent distress. Gen:LMP 05/09/2018 nl development, obese, no deformities ENT: Normocephalic, normal hearing, moist mucosa CV: Pulses:DP/PT= 2+ and symmetric, capillary refill < 2 secs, no peripheral edema/varicosities Skin: no rash, bruising or lesions. Good turgor. Psych: cooperative and appropriate, alert and oriented x 3, good mood and affect. Musculoskeletal: No pain with ambulating. She has discomfort in the right hip with flexion and internal rotation at its endrange of 110 and 30 degrees respectively. Mild tenderness over the lateral hip as well as theSI joint. IMAGING: AP pelvis and 2 views of the right hip show osteoarthritic changes of the right hip greater than left with spurring and medial wear. Supporting Subjective Information Below: Past Medical History: PAST MEDICAL HISTORY Diagnosis Date Acute gastritis without mention of hemorrhage Anxiety Benign neoplasm of stomach Cervical disc disorder with radiculopathy 02/18/2010 Cyst of ovary 01/01/2015 [facility] - see scanned documents Depressive disorder, not elsewhere classified Essential thrombocythemia (HCC) 06/02/2016 GERD (gastroesophageal reflux disease) Hypertension 08/28/11 IC (interstitial cystitis) Impaired fasting glucose 04/02/2010 Lumbar disc disease with radiculopathy 11/15/2010 Metabolic syndrome X Morbid obesity with BMI of 40.0-44.9, adult (HCC) 08/29/2013 Renal cyst, left 07/03/2016 18 mm, 06/18/16 Sciatica SI (sacroiliac) joint dysfunction 06/04/2011 Thoracolumbar back pain 07/20/2013 Unspecified hypothyroidism Urinary calculus, unspecified Renal stones Past Surgical History: PAST SURGICAL HISTORY Procedure Laterality Date CHOLECYSTECTOMY 1991 Cholecystectomy CYSTOSCOPY,DIL BLADDER,LOCAL ANESTH 01/18/14 EGD TRANSORAL BIOPSY SINGLE/MULTIPLE 04/09/2007 gastritis, gastric polyps KIDNEY SURGERY HX 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 Valadez PAST SURGICAL HISTORY OF WISDOM TEETH EXTRACTIONS PAST SURGICAL HISTORY OF 05/2012 bladder hydrodistension X 2 PAST SURGICAL HISTORY OF 2014 pain injection lumbar- multiple PAST SURGICAL HISTORY OF Cyst removed from head Family History: FAMILY HISTORY Problem Relation Age of Onset Diabetes Father Hypertension Father Cancer Maternal Grandmother Lymphoma Heart Maternal Grandfather hypertension Hypertension Brother Social History: Social History Tobacco Use Smoking status: Never Smokeless tobacco: Never Vaping Use Vaping Use: Never used Substance Use Topics Alcohol use: Yes Comment: rarely Drug use: No Medications: Current Outpatient Medications Medication Sig methenam/sod phos/mblue/hyoscy (UROGESIC-BLUE ORAL) Take 1 capsule by mouth once daily. levothyroxine (SYNTHROID) 150 mcg tablet Take 1 tablet by mouth daily before breakfast. omeprazole (PRILOSEC) 40 mg capsule TAKE ONE CAPSULE BY MOUTH EVERY DAY buPROPion XL (WELLBUTRIN XL) 300 mg 24 hr tablet Take 1 tablet by mouth once daily. busPIRone (BUSPAR) 15 mg tablet Take 1 tablet by mouth three times daily. mirabegron (MYRBETRIQ) 50 mg Tb24 Take 1 tablet by mouth once daily. aspirin, enteric coated (ADULT LOW DOSE ASPIRIN) 81 mg EC tablet Take 1 tablet by mouth once daily. SACCHAROMYCES BOULARDII (PROBIOTIC, S.BOULARDII, ORAL) Take by mouth once daily. cyclobenzaprine (FLEXERIL) 10 mg tablet Take 1 tablet by mouth three times daily as needed for muscle spasm. sucralfate (CARAFATE) 1 gram tablet Take 1 tablet by mouth four times daily. Before meals and at bedtime (Patient not taking: Reported on 10/30/2022) No current facility-administered medications for this visit. Allergies: Celebrex [Celecoxib], Erythromycin, Lisinopril, Metformin, Prochlorperazine, Toradol [Ketorolac], and Vesicare [Solifenacin] ROS: General (negative for fatigue, malaise, weight loss/gain) HEENT (negative for headache, earache, recent vision changes, sinus pain, sore throat) Respiratory (no recent shortness of breath, hemoptysis) CV (negative for chest tightness, palpitations) Musculoskeletal (see HPI) Psych (no depression, anxiety) REFERRING PHYSICIAN: Consultation requested by Burke Snider for an opinion regarding right hip pain. My final recommendations will be communicated back to the requesting physician by way of shared Medical record or letterto requesting physician via US mail. Burke Snider [address] [facility] [id number] Sue Weber MD [address] [facility] [id number] Yefri Echavarria MD documented in this encounterMercy Health Urbana Hospital06-05-2023 Miscellaneous Notes* Telephone Encounter - Burke Snider APRN.CNP - 10/27/2022 12:44 PM EDT The following approved medication requests have been transmitted electronically. Requested Prescriptions Pending Prescriptions Disp Refills levothyroxine (SYNTHROID) 150 mcg tablet 30 tablet 5 Sig: Take 1 tablet by mouth daily before breakfast. Burke Snider APRN.CNP * Telephone Encounter - INDIO Al - 10/27/2022 12:28 PM EDT Patient has been identified by name and date of : Yes Patient phones for refill(s): Requested Prescriptions Pending Prescriptions Disp Refills levothyroxine (SYNTHROID) 150 mcg tablet 30 tablet 5 Sig: Take 1 tablet by mouth daily before breakfast. Date of last office visit in primary care: [facility] 09/26/22 No appointment scheduled Last 2 Encounter Wt Readings: Date: Wt: 10/12/2022 112.2 kg (247 lb 6.4 oz) 09/26/2022 113.3 kg (249 lb 12.8 oz) Please advise. Thank you. INDIO Al documented in this encounterMercy Health [facility]rbana Hospital05-05-2023 History of Present illness Narrative* Sue Weber MD - 09/26/2022 3:40 PM EDT Chief Complaint Patient presents with: Hospital F/U [facility] Payton Mcqueen is a 57 year old female who presents here today for a [facility] ED follow up. Pt seen at [facility] ED for a muscle stain in her R hip. Pt was d/c home with Hewitt 5- 325 mg for pain. Pt reports that her hip pain started Thursday/Thursday am night/morning when she got out of bed to go the bathroom. She believes this occurred when she turned and started experiencing pain. She went and lay back down in bed then started having extreme stabbing pain that radiated down into her groin. Due to the pain she was having she went to the ED. Denies any previous hip issues, but notes SI joint issues in the past (2000). Today she notes that pain has improved somewhat, but she does continue to still have a pinching type pain in her hip. Feels almost like a bruise. Her groin pain has improved. When she is up and moving around the pain becomes more sharp. Feels like a muscle all bunchedup. Pain an 8-9/[address] Prior to this was a 4/10 and a dull ache. Uses Ibuprofen at home which does help. Did use a Hewitt last night due to increased pain. Has used ice/heat and rest as suggested by ED. Used her last two personal days, so has not worked. [facility] ED visit 09/24/22: HPI Narrative: Patient presents with right hip pain that began today. Patient states it began suddenly when she woke up today. Patient does not remember any trauma or injury. Patient states it began rather suddenly. Patient describes her pain as sharp. Patient states it is worse with movement and better with rest. Patient denies any paresthesias or weakness. Patient states the pain does radiate to the medial aspect of her right thigh. Patient denies any back pain. Patient denies any bowel or bladder changes. Patient denies any saddle anesthesia. RAD/HIP, UNI W/ Pelvis 2-3 Views IMPRESSION: No acute fracture or subluxation. Hip impingement to be excluded. Electronically Signed: Houston Ralph MD at 8:12 EDT Past medical history, appointments, medications, allergies reviewed. Previous Medical History PAST MEDICAL HISTORY Diagnosis Date Acute gastritis without mention of hemorrhage Anxiety Benign neoplasm of stomach Cervical disc disorder with radiculopathy 02/18/2010 Cyst of ovary 01/01/2015 [facility] - see scanned documents Depressive disorder, not elsewhere classified Essential thrombocythemia (HCC) 06/02/2016 GERD (gastroesophageal reflux disease) Hypertension 08/28/11 IC (interstitial cystitis) Impaired fasting glucose 04/02/2010 Lumbar disc disease with radiculopathy 11/15/2010 Metabolic syndrome X Morbid obesity with BMI of 40.0-44.9, adult (HCC) 08/29/2013 Renal cyst, left 07/03/2016 18 mm, 06/18/16 Sciatica SI (sacroiliac) joint dysfunction 06/04/2011 Thoracolumbar back pain 07/20/2013 Unspecified hypothyroidism Urinary calculus, unspecified Renal stones Previous Surgical History PAST SURGICAL HISTORY Procedure Laterality Date CHOLECYSTECTOMY 1991 Cholecystectomy CYSTOSCOPY,DIL BLADDER,LOCAL ANESTH 01/18/14 EGD TRANSORAL BIOPSY SINGLE/MULTIPLE 04/09/2007 gastritis, gastric polyps KIDNEY SURGERY HX 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 6 weeks Erythromycin GI Upset Lisinopril Unknown Cough, hypotension Metformin GI Upset Prochlorperazine Mental Status Change Agitation, felt ill Toradol [Ketorolac] Vomiting Vesicare [Solifenac* Rash Current Medications Current Outpatient Medications on File Prior to Visit Medication Sig omeprazole (PRILOSEC) 40 mg capsule TAKE ONE CAPSULE BY MOUTH EVERY DAY buPROPion XL (WELLBUTRIN XL) 300 mg 24 hr tablet Take 1 tablet by mouth once daily. busPIRone (BUSPAR) 15 mg tablet Take 1 tablet by mouth three times daily. levothyroxine (SYNTHROID) 150 mcg tablet TAKE ONE TABLET BY MOUTH EVERY DAY BEFORE BREAKFAST sucralfate (CARAFATE) 1 gram tablet Take 1 tablet by mouth four times daily. Before meals and at bedtime mirabegron (MYRBETRIQ) 50 mg Tb24 Take 1 tablet by mouth once daily. aspirin, enteric coated (ADULT LOW DOSE ASPIRIN) 81 mg EC tablet Take 1 tablet by mouth once daily. SACCHAROMYCES BOULARDII (PROBIOTIC, S.BOULARDII, ORAL) Take by mouth once daily. No current facility-administered medications on file prior to visit. Social History Social History Tobacco Use Smoking status: Never Smokeless tobacco: Never Vaping Use Vaping Use: Never used Substance Use Topics Alcohol use: Yes Comment: rarely Drug use: No EXAM: BP 138/80 (BP Site: Left Arm, BP Position: Sitting, BP Cuff Size: Regular Adult) Pulse 86 Resp 18 Wt 113.3 kg (249 lb 12.8 oz) LMP 05/09/2018 (Approximate) SpO2 96% BMI 42.88 kg/m General Appearance: Well appearing, alert, in no acute distress, well-hydrated, well nourished and Obese. Extremities: Some pain on ROM when moving right leg. Musculoskeletal: Tenderness to palpate R hip area/muscle, posterior laterally. Good ROM, some pain with resisted internal rotation and hip flexion Health Maintenance List HEPATITIS B(1 of 3 - 3-dose series) Never done COLORECTAL CANCER SCREENING Never done BP CONTROLLED (<130/80) due on 10/10/2018 HPV TESTING due on 04/10/2020 PAP TESTING due on 04/11/2020 COVID-19 VACCINE(3 - Booster for Moderna series) due on 02/11/2021 DEPRESSION ASSESSMENT due on 05/25/2022 MAMMOGRAM due on 12/09/2022 DTAP,TDAP,TD(6 - Td or Tdap) due on 11/18/2022 SHINGRIX VACCINE(1 of 2) due on 11/18/2022 HEPATITIS C SCREENING due on 11/26/2022 HIV SCREENING due on 11/26/2022 INFLUENZA(Season Ended) due on 01/23/2023 ANNUAL PCP TEAM CHRONIC DISEASE VISIT due on 07/21/2023 DIABETES SCREEN due on 03/31/2025 LIPID SCREEN due on 10/16/2025 Data reviewed [facility] Records ASSESSMENT/PLAN: 1. . Acute pain of right hip - ICD9: 719.45, ICD10: M25.551 - Cont to heat/ice and NSAID as needed - Rx of Flexeril 10 mg given to use prn - Advised we do not like to do salvage determiner pain medication - CYCLOBENZAPRINE 10 MG TABLET 2. Muscle strain - ICD9: 848.9, ICD10: T14.8XXA - As noted above - CYCLOBENZAPRINE 10 MG TABLET Follow up as needed. Update office if not improved. I agree with the Chief Complaint, ROS, and Past Histories independently gathered by the clinical data support analyst and the remaining scribed note accurately describes my personal service to the patient. Medical Decision Making: Problems: Low: Acute, uncomplicated illness or injury Risk: Moderate: Drug management Medical Decision Making Level: 3 - Low Sue Weber MD The documentation for this note was completed by Mavis Shen Ma acting as scribe for Sue Weber MD. September 26, 2022 3:59 PM. Mavis Shen Ma documented in this encounter[facility] History of Present illness Narrative* Sue Weber MD - 07/21/2022 7:20 PM EST Chief Complaint Patient presents with: Cough HPI Payton Mcqueen is a 57 year old female who presents here today for continued illness. Pt c/o still being sick and coughing. Has continued fevers of 100 to 100.9, flu like sx. She stayedin over the weekend and took Mucinex DM which helped some. She states now she feels very weak and wiped out. She went to the grocery store on Thursday afternoon and became ill with sweats, weakness, inability to walk and other flu like symptoms. She had to have a family member take her home. She called of work today because she feels totally wiped out. She's taken Delsym and Mucinex. Pt has been for same sx 07/02/22, 07/04/22, 07/14/22 and then again today. She has been treated with Amoxicillin 875 mg BID x 7 days on 04/02/23 and Amoxicillin 875 mg BID x 10 days on 07/04/22, and Z pack on 07/14/22. Pt states that she feels this is something different then what she previously had. Sinuses has improved but she feels this is settling more in her chest. Her symptoms wax and wane at times slightly better but then worse. Cough not as severe as it was. Voice hoarseness intermittently. Trying to sleep sitting up. Pt tends to overreact when she gets ill due to her blood thing. Also notes that she's fearful shemay have Covid despite having a negative test. She's concerned about work and continuing to miss work. They do want her to get better before returning to work. Asking what information she should give them. BP tends to be high when in office. Did lose her keys before coming which caused her BP to go up. When checks at home it's normal. Past medical history, appointments, medications, allergies reviewed. Previous Medical History PAST MEDICAL HISTORY Diagnosis Date Acute gastritis without mention of hemorrhage Anxiety Benign neoplasm of stomach Cervical disc disorder with radiculopathy 02/18/2010 Cyst of ovary 01/01/2015 [facility] - see scanned documents Depressive disorder, not elsewhere classified Essential thrombocythemia (HCC) 06/02/2016 GERD (gastroesophageal reflux disease) Hypertension 08/28/11 IC (interstitial cystitis) Impaired fasting glucose 04/02/2010 Lumbar disc disease with radiculopathy 11/15/2010 Metabolic syndrome X Morbid obesity with BMI of 40.0-44.9, adult (HCC) 08/29/2013 Renal cyst, left 07/03/2016 18 mm, 06/18/16 Sciatica SI (sacroiliac) joint dysfunction 06/04/2011 Thoracolumbar back pain 07/20/2013 Unspecified hypothyroidism Urinary calculus, unspecified Renal stones Previous Surgical History PAST SURGICAL HISTORY Procedure Laterality Date CHOLECYSTECTOMY 1991 Cholecystectomy CYSTOSCOPY,DIL BLADDER,LOCAL ANESTH 01/18/14 EGD TRANSORAL BIOPSY SINGLE/MULTIPLE 04/09/2007 gastritis, gastric polyps KIDNEY SURGERY HX 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 6 weeks Erythromycin GI Upset Lisinopril Unknown Cough, hypotension Metformin GI Upset Prochlorperazine Mental Status Change Agitation, felt ill Toradol [Ketorolac] Vomiting Vesicare [Solifenac* Rash Current Medications Current Outpatient Medications on File Prior to Visit Medication Sig buPROPion XL (WELLBUTRIN XL) 300 mg 24 hr tablet Take 1 tablet by mouth once daily. busPIRone (BUSPAR) 15 mg tablet Take 1 tablet by mouth three times daily. levothyroxine (SYNTHROID) 150 mcg tablet TAKE ONE TABLET BY MOUTH EVERY DAY BEFORE BREAKFAST sucralfate (CARAFATE) 1 gram tablet Take 1 tablet by mouth four times daily. Before meals and at bedtime omeprazole (PRILOSEC) 40 mg capsule Take 1 capsule by mouth once daily. mirabegron (MYRBETRIQ) 50 mg Tb24 Take 1 tablet by mouth once daily. aspirin, enteric coated (ADULT LOW DOSE ASPIRIN) 81 mg EC tablet Take 1 tablet by mouth once daily. SACCHAROMYCES BOULARDII (PROBIOTIC, S.BOULARDII, ORAL) Take by mouth once daily. No current facility-administered medications on file prior to visit. Social History Social History Tobacco Use Smoking status: Never Smokeless tobacco: Never Vaping Use Vaping Use: Never used Substance Use Topics Alcohol use: Yes Comment: rarely Drug use: No EXAM: BP 168/86 Pulse 100 Resp 16 Wt 111.6 kg (246 lb) LMP 05/09/2018 (Approximate) BMI 42.23 kg/m General Appearance: Well appearing, alert, in no acute distress, well-hydrated, well nourished. Ears: External ears normal, canals clear, slight clear fluid in left ear. Neck: Supple, no adenopathy; thyroid symmetric, normal size, no bruits. Lungs: Lungs clear to auscultation. No wheezing, rhonchi, rales. Cough. Heart: RRR without murmur, gallop, or rubs. No ectopy. Health Maintenance List HEPATITIS B(1 of 3 - 3-dose series) Never done COLORECTAL CANCER SCREENING Never done BP CONTROLLED (<130/80) due on 10/10/2018 HPV TESTING due on 04/10/2020 PAP TESTING due on 04/11/2020 COVID-19 VACCINE(3 - Booster for Moderna series) due on 02/11/2021 INFLUENZA(1) due on 01/23/2022 DEPRESSION ASSESSMENT due on 05/25/2022 DTAP,TDAP,TD(6 - Td or Tdap) due on 11/18/2022 SHINGRIX VACCINE(1 of 2) due on 11/18/2022 HEPATITIS C SCREENING due on 11/26/2022 HIV SCREENING due on 11/26/2022 MAMMOGRAM due on 12/09/2022 ANNUAL PCP TEAM CHRONIC DISEASE VISIT due on 07/14/2023 DIABETES SCREEN due on 03/31/2025 LIPID SCREEN due on 10/16/2025 Data reviewed Epic ASSESSMENT/PLAN: 1. Cough, unspecified type - ICD9: 786.2, ICD10: R05.9 (primary diagnosis) - Complete XR tomorrow. - Possibly treat with Levaquin or course of Prednisone. 2. Chest congestion - ICD9: 786.9, ICD10: R09.89 - As noted above 3. Generalized weakness - ICD9: 780.79, ICD10: R53.1 - As noted above Pt instructed to complete XR tomorrow and will come up with plan tomorrow. Will call with results and plan. Recommend stay off work for couple days. I agree with the Chief Complaint, ROS, and Past Histories independently gathered by the clinical data support analyst and the remaining scribed note accurately describes my personal service to the patient. Medical Decision Making: Problems: Low: Acute, uncomplicated illness or injury Data: Unique test result(s) reviewed: 1 Risk: Moderate: Drug management Medical Decision Making Level: 3 - Low Sue Weber MD The documentation for this note was completed by Mavis Shen Ma acting as scribe for Sue Weber MD. July 21, 2022 7:20 PM. Mavis Shen Ma documented in this encounter[facility]02-[facility] History of Present illness Narrative* uSe Weber MD - 07/14/2022 3:40 PM EST Chief Complaint Patient presents with: Illness HPI:This Team Access Model visit is a virtual encounter. It required patient- provider interaction for the medical decision making as documented below. Patient was offered a virtual/telemedicine appointment in lieu of an office visit due to recommendations to reduce patient exposure to COVID-19. Patient is aware of limitations of performing the visit without a face to face visit in the office setting and agrees. Pt scheduled today for a virtual visit for continued sinus issues and losing voice. Pt has been seen 3 x in the past week for continued issues. Always concerned when ill that it's related to her blood disorder. Requests letters off work. Has recurrent sinusitis. She was treated withAmoxicillin 07/04/22 felt she was getting better but Thursday her sx started up again. She states she has 1 dose left of amoxicillin to take today. Past medical history, appointments, medications, allergies reviewed. Previous Medical History PAST MEDICAL HISTORY Diagnosis Date Acute gastritis without mention of hemorrhage Anxiety Benign neoplasm of stomach Cervical disc disorder with radiculopathy 02/18/2010 Cyst of ovary 01/01/2015 [facility] - see scanned documents Depressive disorder, not elsewhere classified Essential thrombocythemia (HCC) 06/02/2016 GERD (gastroesophageal reflux disease) Hypertension 08/28/11 IC (interstitial cystitis) Impaired fasting glucose 04/02/2010 Lumbar disc disease with radiculopathy 11/15/2010 Metabolic syndrome X Morbid obesity with BMI of 40.0-44.9, adult (HCC) 08/29/2013 Renal cyst, left 07/03/2016 18 mm, 06/18/16 Sciatica SI (sacroiliac) joint dysfunction 06/04/2011 Thoracolumbar back pain 07/20/2013 Unspecified hypothyroidism Urinary calculus, unspecified Renal stones Previous Surgical History PAST SURGICAL HISTORY Procedure Laterality Date CHOLECYSTECTOMY 1991 Cholecystectomy CYSTOSCOPY,DIL BLADDER,LOCAL ANESTH 01/18/14 EGD TRANSORAL BIOPSY SINGLE/MULTIPLE 04/09/2007 gastritis, gastric polyps KIDNEY SURGERY HX 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 6 weeks Erythromycin GI Upset Lisinopril Unknown Cough, hypotension Metformin GI Upset Prochlorperazine Mental Status Change Agitation, felt ill Toradol [Ketorolac] Vomiting Vesicare [Solifenac* Rash Current Medications Current Outpatient Medications on File Prior to Visit Medication Sig amoxicillin (AMOXIL) 875 mg tablet Take 1 tablet by mouth twice daily for 10 days. buPROPion XL (WELLBUTRIN XL) 300 mg 24 hr tablet Take 1 tablet by mouth once daily. busPIRone (BUSPAR) 15 mg tablet Take 1 tablet by mouth three times daily. levothyroxine (SYNTHROID) 150 mcg tablet TAKE ONE TABLET BY MOUTH EVERY DAY BEFORE BREAKFAST sucralfate (CARAFATE) 1 gram tablet Take 1 tablet by mouth four times daily. Before meals and at bedtime omeprazole (PRILOSEC) 40 mg capsule Take 1 capsule by mouth once daily. mirabegron (MYRBETRIQ) 50 mg Tb24 Take 1 tablet by mouth once daily. aspirin, enteric coated (ADULT LOW DOSE ASPIRIN) 81 mg EC tablet Take 1 tablet by mouth once daily. SACCHAROMYCES BOULARDII (PROBIOTIC, S.BOULARDII, ORAL) Take by mouth once daily. No current facility-administered medications on file prior to visit. Social History Social History Tobacco Use Smoking status: Never Smokeless tobacco: Never Vaping Use Vaping Use: Never used Substance Use Topics Alcohol use: Yes Comment: rarely Drug use: No EXAM: LMP 05/09/2018 (Approximate) Gen: congested, NAD Health Maintenance List HEPATITIS B(1 of 3 - 3-dose series) Never done COLORECTAL CANCER SCREENING Never done BP CONTROLLED (<130/80) due on 10/10/2018 HPV TESTING due on 04/10/2020 PAP TESTING due on 04/11/2020 COVID-19 VACCINE(3 - Booster for Moderna series) due on 02/11/2021 INFLUENZA(1) due on 01/23/2022 DEPRESSION ASSESSMENT due on 05/25/2022 DTAP,TDAP,TD(6 - Td or Tdap) due on 11/18/2022 SHINGRIX VACCINE(1 of 2) due on 11/18/2022 HEPATITIS C SCREENING due on 11/26/2022 HIV SCREENING due on 11/26/2022 MAMMOGRAM due on 12/09/2022 ANNUAL PCP TEAM CHRONIC DISEASE VISIT due on 07/04/2023 DIABETES SCREEN due on 03/31/2025 LIPID SCREEN due on 10/16/2025 Data reviewed none ASSESSMENT/PLAN: 1. Bacterial sinusitis - ICD9: 473.9, 041.9, ICD10: J32.9, B96.89 - AZITHROMYCIN 250 MG TABLET Note for work done Follow up prn I agree with the Chief Complaint, ROS, and Past Histories independently gathered by the clinical data support analyst and the remaining scribed note accurately describes my personal service to the patient. Sue Weber MD The documentation for this note was completed by Andreina Caicedo Ma acting as scribe for Sue Weber MD. July 14, 2022 3:27 PM. Andreina Caicedo Ma documented in this encounterMer[facility]02-[facility] History of Present illness Narrative* Sue Weber MD - 07/04/2022 1:20 PM EST Chief Complaint Patient presents with: Illness HPI Payton Mcqueen is a 57 year old female who presents here today for sick. Pt had VV with Dr. Castañeda 07/02/22 for myalgias, hoarseness, fevers of 102, mild sore throat, drainage,sinus pressure, chills. Symptoms started over the weekend. She states she has become hoarse. She feels that her sx are worsening. She is having nausea, has a lot of drainage. She feels like the left ear is draining into the throat. Left ear hurts below the ear. Denies any cough, SOB, no loss of taste or smell. She has been home from work all week. Has had covid vaccines but no flu vaccine. She was given a note for work, tested for Flu and Covid which was negative. Was advised to continue with symptomatic treatment. She has been using Flonase regularly but helps a little. She has been taking Advil for body aches. Has tried taking an allergy pill that is not helping much. She states she finally broke her fever last night, fevers were running 102.3. She has been drinking a lot of water. Past medical history, appointments, medications, allergies reviewed. Previous Medical History PAST MEDICAL HISTORY Diagnosis Date Acute gastritis without mention of hemorrhage Anxiety Benign neoplasm of stomach Cervical disc disorder with radiculopathy 02/18/2010 Cyst of ovary 01/01/2015 [facility] - see scanned documents Depressive disorder, not elsewhere classified Essential thrombocythemia (HCC) 06/02/2016 GERD (gastroesophageal reflux disease) Hypertension 08/28/11 IC (interstitial cystitis) Impaired fasting glucose 04/02/2010 Lumbar disc disease with radiculopathy 11/15/2010 Metabolic syndrome X Morbid obesity with BMI of 40.0-44.9, adult (HCC) 08/29/2013 Renal cyst, left 07/03/2016 18 mm, 06/18/16 Sciatica SI (sacroiliac) joint dysfunction 06/04/2011 Thoracolumbar back pain 07/20/2013 Unspecified hypothyroidism Urinary calculus, unspecified Renal stones Previous Surgical History PAST SURGICAL HISTORY Procedure Laterality Date CHOLECYSTECTOMY 1991 Cholecystectomy CYSTOSCOPY,DIL BLADDER,LOCAL ANESTH 01/18/14 EGD TRANSORAL BIOPSY SINGLE/MULTIPLE 04/09/2007 gastritis, gastric polyps KIDNEY SURGERY HX 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 6 weeks Erythromycin GI Upset Lisinopril Unknown Cough, hypotension Metformin GI Upset Prochlorperazine Mental Status Change Agitation, felt ill Toradol [Ketorolac] Vomiting Vesicare [Solifenac* Rash Current Medications Current Outpatient Medications on File Prior to Visit Medication Sig buPROPion XL (WELLBUTRIN XL) 300 mg 24 hr tablet Take 1 tablet by mouth once daily. busPIRone (BUSPAR) 15 mg tablet Take 1 tablet by mouth three times daily. levothyroxine (SYNTHROID) 150 mcg tablet TAKE ONE TABLET BY MOUTH EVERY DAY BEFORE BREAKFAST sucralfate (CARAFATE) 1 gram tablet Take 1 tablet by mouth four times daily. Before meals and at bedtime omeprazole (PRILOSEC) 40 mg capsule Take 1 capsule by mouth once daily. mirabegron (MYRBETRIQ) 50 mg Tb24 Take 1 tablet by mouth once daily. aspirin, enteric coated (ADULT LOW DOSE ASPIRIN) 81 mg EC tablet Take 1 tablet by mouth once daily. SACCHAROMYCES BOULARDII (PROBIOTIC, S.BOULARDII, ORAL) Take by mouth once daily. No current facility-administered medications on file prior to visit. Social History Social History Tobacco Use Smoking status: Never Smokeless tobacco: Never Vaping Use Vaping Use: Never used Substance Use Topics Alcohol use: Yes Comment: rarely Drug use: No EXAM: BP 140/88 Pulse 72 Temp 36.6 C (97.8 F) (Tympanic) Resp 18 Wt 115 kg (253 lb 8 oz) LMP 05/09/2018 (Approximate) SpO2 98% BMI 43.51 kg/m General Appearance: Well appearing, alert, in no acute distress, well-hydrated, well nourished. andOverweight. Head: Facial tenderness. Ears: External ears normal, canals clear. Neck: Supple, no adenopathy; thyroid symmetric, normal size, no bruits. Lungs: Lungs clear to auscultation. No wheezing, rhonchi, rales.. Heart: RRR without murmur, gallop, or rubs. No ectopy. Extremities: small normal cyst to the left elbow, no pain on palpation. Health Maintenance List HEPATITIS B(1 of 3 - 3-dose series) Never done COLORECTAL CANCER SCREENING Never done HPV TESTING due on 04/10/2020 PAP TESTING due on 04/11/2020 COVID-19 VACCINE(3 - Booster for Moderna series) due on 02/11/2021 INFLUENZA(1) due on 01/23/2022 DEPRESSION ASSESSMENT due on 05/25/2022 DTAP,TDAP,TD(6 - Td or Tdap) due on 11/18/2022 SHINGRIX VACCINE(1 of 2) due on 11/18/2022 HEPATITIS C SCREENING due on 11/26/2022 HIV SCREENING due on 11/26/2022 MAMMOGRAM due on 12/09/2022 BP CONTROLLED (<130/80) due on 04/01/2023 ANNUAL PCP TEAM CHRONIC DISEASE VISIT due on 07/02/2023 DIABETES SCREEN due on 03/31/2025 LIPID SCREEN due on 10/16/2025 Data reviewed Appointment on 07/02/2022 Component Date Value SARS-CoV-2 (Agent of COV* 07/02/2022 Not detected Influenza A PCR 07/02/2022 Not detected Influenza B PCR 07/02/2022 Not detected ASSESSMENT/PLAN: 1. Acute non-recurrent frontal sinusitis - ICD9: 461.1, ICD10: J01.10 (primary diagnosis) Start Amoxicillin 875 mg BID x 10 days 2. Vaginal yeast infection - ICD9: 112.1, ICD10: B37.31 Diflucan given if needed due to antibiotic use Pt given note to be off work today. Follow up as needed. I agree with the Chief Complaint, ROS, and Past Histories independently gathered by the clinical data support analyst and the remaining scribed note accurately describes my personal service to the patient. Medical Decision Making: Problems: Low: Acute, uncomplicated illness or injury Risk: Moderate: Drug management Medical Decision Making Level: 3 - Low Sue Weber MD The documentation for this note was completed by Andreina Caicedo Ma acting as scribe for Sue Weber MD. July 04, 2022 1:10 PM. Andreina Caicedo Ma documented in this encounterMer[facility]02-[facility] History of Present illness Narrative* Bhupinder Castañeda MD - 07/02/2022 11:36 AM EST Patient presents with: Follow Up HPI:This Team Access Model visit is a virtual encounter. It required patient- provider interaction for the medical decision making as documented below. Patient has elected to have a visit through distance medicine. Patient is aware of limitations of performing the visit without a face to face visit in the office setting and agrees. Has not been feeling well. Had some issues she thought with the weather. Started not feeling well over the weekend by feeling tired. Complains of myalgias. Hoarseness. Has a fever of 102. Has been home from work this week. Mild sore throat. Has drainage. Some sinus pressure. No cough. No shortness of breath. No nausea or vomiting or diarrhea. Drinking fluids well. No issues with taste or smell. Did have several covid vaccine. Did not get flu shot. MEDICATIONS: Current Outpatient Medications Medication Sig buPROPion XL (WELLBUTRIN XL) 300 mg 24 hr tablet Take 1 tablet by mouth once daily. busPIRone (BUSPAR) 15 mg tablet Take 1 tablet by mouth three times daily. levothyroxine (SYNTHROID) 150 mcg tablet TAKE ONE TABLET BY MOUTH EVERY DAY BEFORE BREAKFAST sucralfate (CARAFATE) 1 gram tablet Take 1 tablet by mouth four times daily. Before meals and at bedtime ondansetron orally disintegrating (ZOFRAN ODT) 4 mg disintegrating tablet Take 1 tablet by mouth every 6 hours as needed for nausea/vomiting. omeprazole (PRILOSEC) 40 mg capsule Take 1 capsule by mouth once daily. mirabegron (MYRBETRIQ) 50 mg Tb24 Take 1 tablet by mouth once daily. aspirin, enteric coated (ADULT LOW DOSE ASPIRIN) 81 mg EC tablet Take 1 tablet by mouth once daily. SACCHAROMYCES BOULARDII (PROBIOTIC, S.BOULARDII, ORAL) Take by mouth once daily. No current facility-administered medications for this visit. ALLERGIES: ALLERGIES Allergen Reactions Celebrex [Celecoxib] upsets stomach after prolonged use ie. 6 weeks Erythromycin GI Upset Lisinopril Unknown Cough, hypotension Metformin GI Upset Prochlorperazine Mental Status Change Agitation, felt ill Toradol [Ketorolac] Vomiting Vesicare [Solifenac* Rash PAST MEDICAL HISTORY Diagnosis Date Acute gastritis without mention of hemorrhage Anxiety Benign neoplasm of stomach Cervical disc disorder with radiculopathy 02/18/2010 Cyst of ovary 01/01/2015 [facility] - see scanned documents Depressive disorder, not elsewhere classified Essential thrombocythemia (HCC) 06/02/2016 GERD (gastroesophageal reflux disease) Hypertension 08/28/11 IC (interstitial cystitis) Impaired fasting glucose 04/02/2010 Lumbar disc disease with radiculopathy 11/15/2010 Metabolic syndrome X Morbid obesity with BMI of 40.0-44.9, adult (HCC) 08/29/2013 Renal cyst, left 07/03/2016 18 mm, 06/18/16 Sciatica SI (sacroiliac) joint dysfunction 06/04/2011 Thoracolumbar back pain 07/20/2013 Unspecified hypothyroidism Urinary calculus, unspecified Renal stones PAST SURGICAL HISTORY Procedure Laterality Date CHOLECYSTECTOMY 1991 Cholecystectomy CYSTOSCOPY,DIL BLADDER,LOCAL ANESTH 01/18/14 EGD TRANSORAL BIOPSY SINGLE/MULTIPLE 04/09/2007 gastritis, gastric polyps KIDNEY SURGERY HX 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 Valadez PAST SURGICAL HISTORY OF WISDOM TEETH EXTRACTIONS PAST SURGICAL HISTORY OF 05/2012 bladder hydrodistension X 2 PAST SURGICAL HISTORY OF 2015 pain injection lumbar- multiple PAST SURGICAL HISTORY OF Cyst removed from head FAMILY HISTORY Problem Relation Age of Onset Diabetes Father Hypertension Father Cancer Maternal Grandmother Lymphoma Heart Maternal Grandfather hypertension Hypertension Brother Social History Tobacco Use Smoking status: Never Smokeless tobacco: Never Vaping Use Vaping Use: Never used Substance Use Topics Alcohol use: Yes Comment: rarely Drug use: No Reviewed current medications, allergies, past medical history, surgical history, family history andsocial history today. REVIEW OF SYSTEMS All other reviewed and negative other than HPI. VITALS: LMP 05/09/2018 (Approximate) Last 4 Encounter Wt Readings: Date: Wt: 04/01/2022 113.9 kg (251 lb 1.6 oz) 03/30/2022 114.8 kg (253 lb) 03/17/2022 115.2 kg (254 lb) 02/21/2022 116.6 kg (257 lb) PHYSICAL EXAMINATION: Patient is alert and oriented during visit. Answers appropriately. Breathing well ASSESSMENT/PLAN: 1. Viral syndrome - ICD9: 079.99, ICD10: B34.9 - Discussed viral etiology and rationale for treatment. - Symptomatic treatment with prn analgesia - Supportive care with fluids and rest - discussed paxlovid if covid. Scheduled covid. Off work slip given. - COVID WITH FLUA+B, ROUTINE Bhupinder Castañeda MD documented in this encounter[facility]27-[facility] Miscellaneous Notes* Telephone Encounter - Sue Weber MD - 05/20/2022 4:30 PM EST OK to refill as ordered Sue Weber MD * Telephone Encounter - Kavya Godfrey RN - 05/20/2022 4:16 PM EST Patient has been identified by name and date of : Yes, Dr. Weber Pharmacy phones for refill(s): Requested Prescriptions Pending Prescriptions Disp Refills buPROPion XL (WELLBUTRIN XL) 300 mg 24 hr tablet 90 tablet 3 Sig: Take 1 tablet by mouth once daily. Date of last office visit in primary care: distance visit on 04/02/22, OV on 04/01/22 Last 2 Encounter Wt Readings: Date: Wt: 04/01/2022 113.9 kg (251 lb 1.6 oz) 03/30/2022 114.8 kg (253 lb) Previous labs/tests for medication: Thyroid: TSH Date Value 03/31/2022 1.530 mIU/L 02/04/2021 4.350 uU/mL Diabetes: Hemoglobin A1C (%) Date Value 03/31/2022 5.6 11/18/2021 5.9 01/23/2018 5.3 03/21/2016 5.2 Cholesterol: HDL Cholesterol (mg/dL) Date Value 10/16/2020 36 LDL Cholesterol (mg/dL) Date Value 10/16/2020 65 ALT (U/L) Date Value 03/31/2022 27 02/04/2021 20 Non HDL Cholesterol (mg/dL) Date Value 10/16/2020 84 Blood Pressure: BUN (mg/dL) Date Value 03/31/2022 10 02/04/2021 9 Sodium (mmol/L) Date Value 03/31/2022 138 02/04/2021 136 Last 1 Encounter BP Readings: Date: BP: 04/01/2022 126/72 Blood Counts: WBC Date Value 02/06/2020 21.8 K/uL 03/16/2019 23.72 k/uL RBC Date Value 02/06/2020 6.43 M/uL 03/16/2019 5.99 m/uL Hematocrit (%) Date Value 03/16/2019 43.6 HCT (%) Date Value 02/06/2020 43.6 Hemoglobin (g/dL) Date Value 03/16/2019 11.9 Platelet Count (k/uL) Date Value 03/16/2019 904 PLT (K/uL) Date Value 02/06/2020 913 Liver Function: ALT (U/L) Date Value 03/31/2022 27 02/04/2021 20 AST (U/L) Date Value 03/31/2022 34 02/04/2021 22 Please advise. Thank you. Kavya Godfrey RN documented [place] [address]-09-2022 History of Present illness Narrative* Sue Weber MD - 04/02/2022 7:40 PM EST Chief Complaint Illness HPI:This Team Access Model visit is a virtual encounter. It required patient- provider interaction for the medical decision making as documented below. Patient was offered a virtual/telemedicine appointment in lieu of an office visit due to recommendations to reduce patient exposure to COVID-19. Patient is aware of limitations of performing the visit without a face to face visit in the office setting and agrees. Pt completing same day virtual visit. Seen in office on 04/01/22. Pt wrote into the office with being concerned about she felt this afternoon. Pt reports that she feels real off balance. Her ear has a squishy sound it. She feels really weak, very tired and has a headache. Anterior sinus pressure, low grade fever. Has been ill for 5 days now, no improvement. Some bloody sinus drainage. Pt has tested negative for covid. Past medical history, appointments, medications, allergies reviewed. Previous Medical History PAST MEDICAL HISTORY Diagnosis Date Acute gastritis without mention of hemorrhage Anxiety Benign neoplasm of stomach Cervical disc disorder with radiculopathy 02/18/2010 Cyst of ovary 01/01/2015 [facility] - see scanned documents Depressive disorder, not elsewhere classified Essential thrombocythemia (HCC) 06/02/2016 GERD (gastroesophageal reflux disease) Hypertension 08/28/11 IC (interstitial cystitis) Impaired fasting glucose 04/02/2010 Lumbar disc disease with radiculopathy 11/15/2010 Metabolic syndrome X Morbid obesity with BMI of 40.0-44.9, adult (HCC) 08/29/2013 Renal cyst, left 07/03/2016 18 mm, 06/18/16 Sciatica SI (sacroiliac) joint dysfunction 06/04/2011 Thoracolumbar back pain 07/20/2013 Unspecified hypothyroidism Urinary calculus, unspecified Renal stones Previous Surgical History PAST SURGICAL HISTORY Procedure Laterality Date CHOLECYSTECTOMY 1991 Cholecystectomy CYSTOSCOPY,DIL BLADDER,LOCAL ANESTH 01/18/14 EGD TRANSORAL BIOPSY SINGLE/MULTIPLE 04/09/2007 gastritis, gastric polyps KIDNEY SURGERY HX 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 6 weeks Erythromycin GI Upset Lisinopril Unknown Cough, hypotension Metformin GI Upset Prochlorperazine Mental Status Change Agitation, felt ill Toradol [Ketorolac] Vomiting Vesicare [Solifenac* Rash Current Medications Current Outpatient Medications on File Prior to Visit Medication Sig busPIRone (BUSPAR) 15 mg tablet Take 1 tablet by mouth three times daily. levothyroxine (SYNTHROID) 150 mcg tablet TAKE ONE TABLET BY MOUTH EVERY DAY BEFORE BREAKFAST sucralfate (CARAFATE) 1 gram tablet Take 1 tablet by mouth four times daily. Before meals and at bedtime ondansetron orally disintegrating (ZOFRAN ODT) 4 mg disintegrating tablet Take 1 tablet by mouth every 6 hours as needed for nausea/vomiting. omeprazole (PRILOSEC) 40 mg capsule Take 1 capsule by mouth once daily. buPROPion XL (WELLBUTRIN XL) 300 mg 24 hr tablet Take 1 tablet by mouth once daily. mirabegron (MYRBETRIQ) 50 mg Tb24 Take 1 tablet by mouth once daily. aspirin, enteric coated (ADULT LOW DOSE ASPIRIN) 81 mg EC tablet Take 1 tablet by mouth once daily. SACCHAROMYCES BOULARDII (PROBIOTIC, S.BOULARDII, ORAL) Take by mouth once daily. No current facility-administered medications on file prior to visit. Social History Social History Tobacco Use Smoking status: Never Smokeless tobacco: Never Vaping Use Vaping Use: Never used Substance Use Topics Alcohol use: Yes Comment: rarely Drug use: No EXAM: LMP 08/09/2018 (Approximate) General Appearance: Well appearing, alert, in no acute distress, well-hydrated, well nourished.. Health Maintenance List HEPATITIS B(1 of 3 - 3-dose series) Never done COLORECTAL CANCER SCREENING Never done HPV TESTING due on 04/10/2020 PAP TESTING due on 04/11/2020 COVID-19 VACCINE(3 - Booster for Moderna series) due on 02/11/2021 INFLUENZA(1) due on 01/23/2022 DTAP,TDAP,TD(6 - Td or Tdap) due on 11/18/2022 SHINGRIX VACCINE(1 of 2) due on 11/18/2022 HEPATITIS C SCREENING due on 11/26/2022 HIV SCREENING due on 11/26/2022 MAMMOGRAM due on 12/09/2022 ANNUAL PCP TEAM CHRONIC DISEASE VISIT due on 04/01/2023 BP CONTROLLED (<130/80) due on 04/01/2023 DIABETES SCREEN due on 03/31/2025 LIPID SCREEN due on 10/16/2025 DEPRESSION ASSESSMENT Completed Data reviewed None ASSESSMENT/PLAN: 1. Bacterial sinusitis - ICD9: 473.9, 041.9, ICD10: J32.9, B96.89 - Will begin treatment with Amoxicillin for 7 days (has not tolerated Augmentin due to Gi side effects) Note done to be off work all week - AMOXICILLIN 875 MG TABLET Diflucan for probable yeast infection Call if not improving in 5-7 days Sue Weber MD documented in this encounterMer[facility]11-08-[facility]22 History of Present illness Narrative* Sue Weber MD - 04/01/2022 3:20 PM EST Chief Complaint Patient presents with: F/U 3 Month HPI Payton Mcqueen is a 56 year old female who presents here today for a 3 month follow up. Pt here today for a 3 mo f/u. Declined flu shot today. Denies the COVID booster. Recently seen in [facility] for urinary urgency on 03/17/22. Urine Cx positive, pt started on Keflex. She has been having sinus issues, cough, was tested for Covid and flu were negative. She went to [facility] for evaluate. 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 She didn't go to work today because she was having some gi upset. She still has some nasal drainage. Has not had any fevers, feels hot. She feel exhausted. She has been using the flonase to help with the sinus congestion. HTN: does not take any bp medications. She checks the bp at home and it runs 120/70 range. No chestpains, dizziness, or SOB. GERD: Sx controlled, uses Carafate 1 gram as needed, can take up to QID prn and Prilosec 40 mg daily. Ear: Recently seen for left recurrent ear infection, given Zpak. Is still getting a flutter in the ear. Insomnia: Pt has tried Remeron and Doxepin with no improved in sleep results. Pt wanting to take Ambien. Pt given short term Rx as she's been advised multiple times this is not a chcf solution medication. States that the Ambien has been d/c. Pt need to f/u with Sleep Medicine. Thyroid: Stable on current regimen of Synthroid 150 mcg once daily. Denies missing any dosages. Depression/SHEYLA: Chronic anxiety and over thinking. Makes sleeping worse due to not being able to calm down. On current regimen of Buspar 15 mg bid and Wellbutrin XL 300 mg daily. She is nervous aboutmissing work because they say don't come to work. She worries anytime she gets ill thinking it is related to her blood disorder. She is walking for exercise which does help. Has had some added stressors, taking care of her mom. She has had more energy and has felt better in the past 6 months. Hematology: follows with [facility] Past medical history, appointments, medications, allergies reviewed. Previous Medical History PAST MEDICAL HISTORY Diagnosis Date Acute gastritis without mention of hemorrhage Anxiety Benign neoplasm of stomach Cervical disc disorder with radiculopathy 02/18/2010 Cyst of ovary 01/01/2015 [facility] - see scanned documents Depressive disorder, not elsewhere classified Essential thrombocythemia (HCC) 06/02/2016 GERD (gastroesophageal reflux disease) Hypertension 08/28/11 IC (interstitial cystitis) Impaired fasting glucose 04/02/2010 Lumbar disc disease with radiculopathy 11/15/2010 Metabolic syndrome X Morbid obesity with BMI of 40.0-44.9, adult (HCC) 08/29/2013 Renal cyst, left 07/03/2016 18 mm, 06/18/16 Sciatica SI (sacroiliac) joint dysfunction 06/04/2011 Thoracolumbar back pain 07/20/2013 Unspecified hypothyroidism Urinary calculus, unspecified Renal stones Previous Surgical History PAST SURGICAL HISTORY Procedure Laterality Date CHOLECYSTECTOMY 1991 Cholecystectomy CYSTOSCOPY,DIL BLADDER,LOCAL ANESTH 01/18/14 EGD TRANSORAL BIOPSY SINGLE/MULTIPLE 04/09/2007 gastritis, gastric polyps KIDNEY SURGERY HX 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 6 weeks Erythromycin GI Upset Lisinopril Unknown Cough, hypotension Metformin GI Upset Prochlorperazine Mental Status Change Agitation, felt ill Toradol [Ketorolac] Vomiting Vesicare [Solifenac* Rash Current Medications Current Outpatient Medications on File Prior to Visit Medication Sig sucralfate (CARAFATE) 1 gram tablet Take 1 tablet by mouth four times daily. Before meals and at bedtime zolpidem (AMBIEN) 5 mg tablet Take 1 tablet by mouth at bedtime as needed for up to 20 days. ondansetron orally disintegrating (ZOFRAN ODT) 4 mg disintegrating tablet Take 1 tablet by mouth every 6 hours as needed for nausea/vomiting. levothyroxine (SYNTHROID) 150 mcg tablet Take 1 tablet by mouth daily before breakfast. busPIRone (BUSPAR) 15 mg tablet Take 1 tablet by mouth twice daily. omeprazole (PRILOSEC) 40 mg capsule Take 1 capsule by mouth once daily. buPROPion XL (WELLBUTRIN XL) 300 mg 24 hr tablet Take 1 tablet by mouth once daily. mirabegron (MYRBETRIQ) 50 mg Tb24 Take 1 tablet by mouth once daily. aspirin, enteric coated (ADULT LOW DOSE ASPIRIN) 81 mg EC tablet Take 1 tablet by mouth once daily. SACCHAROMYCES BOULARDII (PROBIOTIC, S.BOULARDII, ORAL) Take by mouth once daily. No current facility-administered medications on file prior to visit. Social History Social History Tobacco Use Smoking status: Never Smokeless tobacco: Never Vaping Use Vaping Use: Never used Substance Use Topics Alcohol use: Yes Comment: rarely Drug use: No EXAM: BP 126/72 Pulse 78 Resp 16 Wt 113.9 kg (251 lb 1.6 oz) LMP 08/09/2018 (Approximate) BMI 43.10 kg/m General Appearance: Well appearing, alert, in no acute distress, well-hydrated, well nourished. andOverweight. Ears: External ears normal, canals clear. Neck: Supple, no adenopathy; thyroid symmetric, normal size. Lungs: Lungs clear to auscultation. No wheezing, rhonchi, rales.. Heart: RRR without murmur, gallop, or rubs. No ectopy. Health Maintenance List HEPATITIS B(1 of 3 - 3-dose series) Never done COLORECTAL CANCER SCREENING Never done BP CONTROLLED (<130/80) due on 10/10/2018 HPV TESTING due on 04/10/2020 PAP TESTING due on 04/11/2020 COVID-19 VACCINE(3 - Booster for Moderna series) due on 02/11/2021 DEPRESSION ASSESSMENT Never done INFLUENZA(1) due on 01/23/2022 DTAP,TDAP,TD(6 - Td or Tdap) due on 11/18/2022 SHINGRIX VACCINE(1 of 2) due on 11/18/2022 HEPATITIS C SCREENING due on 11/26/2022 HIV SCREENING due on 11/26/2022 MAMMOGRAM due on 12/09/2022 ANNUAL PCP TEAM CHRONIC DISEASE VISIT due on 02/21/2023 DIABETES SCREEN due on 11/18/2024 LIPID SCREEN due on 10/16/2025 Data reviewed Appointment on 03/31/2022 Component Date Value Protein, Total 03/31/2022 7.2 Albumin 03/31/2022 4.5 Calcium, Total 03/31/2022 9.4 Bilirubin, Total 03/31/2022 0.6 Alkaline Phosphatase 03/31/2022 159 (A) AST 03/31/2022 34 ALT 03/31/2022 27 Glucose 03/31/2022 127 (A) BUN 03/31/2022 10 Creatinine 03/31/2022 0.79 Sodium 03/31/2022 138 Potassium 03/31/2022 4.3 Chloride 03/31/2022 100 CO2 03/31/2022 28 Anion Gap 03/31/2022 10 Estimated Glomerular Lopez* 03/31/2022 89 Hemoglobin A1C 03/31/2022 5.6 Estimated Average Glucose 03/31/2022 114 TSH 03/31/2022 1.530 Office Visit on 03/30/2022 Component Date Value COVID 19 Result 03/30/2022 SARS-CoV-2 (Agent of COVID-19) Not Detected by RT-PCR or equivalent method. Influenza A PCR 03/30/2022 Negative for Influenza A by RT-PCR Influenza B PCR 03/30/2022 Negative for Influenza B by RT-PCR Office Visit on 03/17/2022 Component Date Value GLUCOSE UA (POCT) 03/17/2022 Negative BILIRUBIN UA (POCT) 03/17/2022 Negative KETONE UA (POCT) 03/17/2022 Negative SPECIFIC GRAVITY UA (POC* 03/17/2022 1.015 HEMOGLOBIN/BLOOD UA (PO* 03/17/2022 Negative PH UA (POCT) 03/17/2022 5.5 PROTEIN UA (POCT) 03/17/2022 Negative UROBILINOGEN UA (POCT) 03/17/2022 0.2 NITRITE UA (POCT) 03/17/2022 Negative LEUKOCYTES UA (POCT) 03/17/2022 Small (A) COLOR UA (POCT) 03/17/2022 Green CLARITY UA (POCT) 03/17/2022 Clear Culture, Urine 03/17/2022 Mixed microbiota, including predominantly: Culture, Urine 03/17/2022 >=100,000 CFU/ml Streptococcus agalactiae (group b streptococcus) (A) ASSESSMENT/PLAN: 1. Generalized anxiety disorder - ICD9: 300.02, ICD10: F41.1 (primary diagnosis) Increase Buspar to TID as needed Continue current medications. 2. Primary insomnia - ICD9: 307.42, ICD10: F51.01 3. Essential hypertension, benign - ICD9: 401.1, ICD10: I10 - good control 4. Gastroesophageal reflux disease without esophagitis - ICD9: 530.81, ICD10: K21.9 Continue current medications. 5. Hypothyroidism, unspecified type - ICD9: 244.9, ICD10: E03.9 - Instructed patient on importance of taking on an empty stomach either first thing in the morning or at bedtime. - continue current dose of Synthroid 0.150 mg 6. Essential thrombocythemia (HCC) - ICD9: 238.71, ICD10: D47.3 Follow with [facility] heamtology 7. Adjustment disorder with depressed mood - ICD9: 309.0, ICD10: F43.21 Increase Buspar to TID Continue current medications. - Discussed counseling 8. Obesity, Class III, BMI 40-49.9 (morbid obesity) (HCC) - ICD9: 278.01, ICD10: E66.01 9. Impaired glucose tolerance - ICD9: 790.22, ICD10: R73.02 Continue to monitor with labs Recommend healthy diet and exercise Follow up in 3 months with labs prior. I agree with the Chief Complaint, ROS, and Past Histories independently gathered by the clinical data support analyst and the remaining scribed note accurately describes my personal service to the patient. Medical Decision Making: Problems: Moderate: 2+ stable chronic illnesses Data: Unique test result(s) reviewed: 2 Unique test(s) ordered: 2 Risk: Moderate: Drug management Medical Decision Making Level: 4 - Moderate Sue Weber MD The documentation for this note was completed by Andreina Caicedo Ma acting as scribe for Sue Weber MD. April 01, 2022 3:27 PM. Andreina Caicedo Ma documented in this encounterMer[facility]11-07-2022 Miscellaneous Notes* Telephone Encounter - Burke Snider APRN.CNP - 03/31/2022 10:17 AM EST The following approved medication requests have been transmitted electronically. Requested Prescriptions Pending Prescriptions Disp Refills levothyroxine (SYNTHROID) 150 mcg tablet [Pharmacy Med Name: LEVOTHYROXINE SODIUM 150MCG TABS] 30 tablet 5 Sig: TAKE ONE TABLET BY MOUTH EVERY DAY BEFORE BREAKFAST Burke Snider APRN.CNP * Telephone Encounter - Andreina Caicedo Ma - 03/31/2022 9:28 AM EST Last office visit: 02/21/22 F/u scheduled: tomorrow 04/01/22 Andreina Caicedo Ma documented in this encounterMer[facility]11-06-2022 History of Present illness Narrative* Suze Moreno APRN.[facility] - 03/30/2022 1:56 PM EST CC: Patient presents with: Sinus Problem: With congestion x 3 days HPI: Payton Mcqueen is a 56 year old female who presents to the office with complaint of head congestion and sinus symptoms for a few days. Symptoms are staying the same. Associated symptoms includes nasal congestion. Denies nausea, vomiting , and diarrhea. Treatments tried include nothing so far. with no relief of symptoms. Sick contacts: yes. History of asthma, frequent episodes of bronchitis, chronic bronchitis, bronchiectasis or COPD: No Smoker: No Seasonal/environmental allergies: No The ROS is otherwise negative. The patient's pmh, medications, allergies, and past visits are reviewed. PHYSICAL EXAM: BP 138/70 Pulse 106 Temp 36.8 C (98.2 F) Resp 18 Wt 114.8 kg (253 lb) LMP 08/09/2018 (Approximate) SpO2 96% BMI 43.43 kg/m General appearance: alert, cooperative, pleasant, in no acute distress Head: Normocephalic Eyes: EOM's intact, conjunctiva pink and moist, no icterus, sclera white, non-injected Ears: Right ear: External ear/canal- Normal, TM - clear with good landmarks. Left ear: External ear/canal- Normal, TM - clear with good landmarks Oropharynx:moist without lesions, No erythema, exudates or tonsillar hypertrophy. Heart: Negative. RRR without obvious murmur, gallop, or rubs. No ectopy. Lungs: clear to auscultation, without rales or wheeze, good air exchange PAST MEDICAL HISTORY Diagnosis Date Acute gastritis without mention of hemorrhage Anxiety Benign neoplasm of stomach Cervical disc disorder with radiculopathy 02/18/2010 Cyst of ovary 01/01/2015 [facility] - see scanned documents Depressive disorder, not elsewhere classified Essential thrombocythemia (HCC) 06/02/2016 GERD (gastroesophageal reflux disease) Hypertension 08/28/11 IC (interstitial cystitis) Impaired fasting glucose 04/02/2010 Lumbar disc disease with radiculopathy 11/15/2010 Metabolic syndrome X Morbid obesity with BMI of 40.0-44.9, adult (HCC) 08/29/2013 Renal cyst, left 07/03/2016 18 mm, 06/18/16 Sciatica SI (sacroiliac) joint dysfunction 06/04/2011 Thoracolumbar back pain 07/20/2013 Unspecified hypothyroidism Urinary calculus, unspecified Renal stones PAST SURGICAL HISTORY Procedure Laterality Date CHOLECYSTECTOMY 1991 Cholecystectomy CYSTOSCOPY,DIL BLADDER,LOCAL ANESTH 01/18/14 EGD TRANSORAL BIOPSY SINGLE/MULTIPLE 04/09/2007 gastritis, gastric polyps KIDNEY SURGERY HX 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 Valadez PAST SURGICAL HISTORY OF WISDOM TEETH EXTRACTIONS PAST SURGICAL HISTORY OF 05/2012 bladder hydrodistension X 2 PAST SURGICAL HISTORY OF 2014 pain injection lumbar- multiple PAST SURGICAL HISTORY OF Cyst removed from head ALLERGIES Celebrex [Celecoxib], Erythromycin, Lisinopril, Metformin, Prochlorperazine, Toradol [Ketorolac], and Vesicare [Solifenacin] MEDICATIONS sucralfate (CARAFATE) 1 gram tablet Take 1 tablet by mouth four times daily. Before meals and at bedtime ondansetron orally disintegrating (ZOFRAN ODT) 4 mg disintegrating tablet Take 1 tablet by mouth every 6 hours as needed for nausea/vomiting. busPIRone (BUSPAR) 15 mg tablet Take 1 tablet by mouth twice daily. omeprazole (PRILOSEC) 40 mg capsule Take 1 capsule by mouth once daily. buPROPion XL (WELLBUTRIN XL) 300 mg 24 hr tablet Take 1 tablet by mouth once daily. mirabegron (MYRBETRIQ) 50 mg Tb24 Take 1 tablet by mouth once daily. aspirin, enteric coated (ADULT LOW DOSE ASPIRIN) 81 mg EC tablet Take 1 tablet by mouth once daily. SACCHAROMYCES BOULARDII (PROBIOTIC, S.BOULARDII, ORAL) Take by mouth once daily. zolpidem (AMBIEN) 5 mg tablet Take 1 tablet by mouth at bedtime as needed for up to 20 days. levothyroxine (SYNTHROID) 150 mcg tablet Take 1 tablet by mouth daily before breakfast. FAMILY HISTORY Problem Relation Age of Onset Diabetes Father Hypertension Father Cancer Maternal Grandmother Lymphoma Heart Maternal Grandfather hypertension Hypertension Brother Social History Tobacco Use Smoking status: Never Smokeless tobacco: Never Vaping Use Vaping Use: Never used Substance Use Topics Alcohol use: Yes Comment: rarely Drug use: No ASSESSMENT/PLAN: 1. Sinus congestion - ICD9: 478.19, ICD10: R09.81 (primary diagnosis) 2. At increased risk of exposure to COVID-19 virus - ICD9: V15.89, ICD10: Z91.89 - COVID WITH FLUA+B, ROUTINE Supportive therapies at this time. Prescription instructions reviewed with patient as applicable. Potential red flag symptoms discussed with the patient. Reviewed appropriate action plan to take if red flag symptoms occur. Patient agreeable to treatment plan. Suze Moreno APRN.BUD documented in this encounter[facility] History of Present illness Narrative* Suze Moreno APRN.BUD - 03/17/2022 5:57 PM EDT CC: Patient presents with: UTI: Burning, frequency, pressure x3 days HPI Payton Mcqueen is a 56 year old female who presents with complaint of possible UTI. These symptoms have been present for 3 days. Associated symptoms: burning, frequency, and pressure Denies: backpain, fever, chills, sweats, and flank pain Treatments: nothing The ROS was otherwise negative. PMH, Medications, labs, allergies, and recent past visits with PCP were reviewed and updated as able. PHYSICAL EXAM: BP 182/100 Pulse 90 Temp 36.8 C (98.3 F) Resp 20 Wt 115.2 kg (254 lb) LMP 08/09/2018 (Approximate) SpO2 99% BMI 43.60 kg/m General: Well appearing and alert CV: Regular rate and rhythm without obvious murmur Lungs: clear to auscultation bilaterally Back: straight and symmetric Abdomen: only tender in the bottom middle abdomen. PAST MEDICAL HISTORY Diagnosis Date Acute gastritis without mention of hemorrhage Anxiety Benign neoplasm of stomach Cervical disc disorder with radiculopathy 02/18/2010 Cyst of ovary 01/01/2015 [facility] - see scanned documents Depressive disorder, not elsewhere classified Essential thrombocythemia (HCC) 06/02/2016 GERD (gastroesophageal reflux disease) Hypertension 08/28/11 IC (interstitial cystitis) Impaired fasting glucose 04/02/2010 Lumbar disc disease with radiculopathy 11/15/2010 Metabolic syndrome X Morbid obesity with BMI of 40.0-44.9, adult (HCC) 08/29/2013 Renal cyst, left 07/03/2016 18 mm, 06/18/16 Sciatica SI (sacroiliac) joint dysfunction 06/04/2011 Thoracolumbar back pain 07/20/2013 Unspecified hypothyroidism Urinary calculus, unspecified Renal stones PAST SURGICAL HISTORY Procedure Laterality Date CHOLECYSTECTOMY 1991 Cholecystectomy CYSTOSCOPY,DIL BLADDER,LOCAL ANESTH 01/18/14 EGD TRANSORAL BIOPSY SINGLE/MULTIPLE 04/09/2007 gastritis, gastric polyps KIDNEY SURGERY HX 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 Valadez PAST SURGICAL HISTORY OF WISDOM TEETH EXTRACTIONS PAST SURGICAL HISTORY OF 05/2012 bladder hydrodistension X 2 PAST SURGICAL HISTORY OF 2014 pain injection lumbar- multiple PAST SURGICAL HISTORY OF Cyst removed from head ALLERGIES Celebrex [Celecoxib], Erythromycin, Lisinopril, Metformin, Prochlorperazine, Toradol [Ketorolac], and Vesicare [Solifenacin] MEDICATIONS sucralfate (CARAFATE) 1 gram tablet Take 1 tablet by mouth four times daily. Before meals and at bedtime ondansetron orally disintegrating (ZOFRAN ODT) 4 mg disintegrating tablet Take 1 tablet by mouth every 6 hours as needed for nausea/vomiting. busPIRone (BUSPAR) 15 mg tablet Take 1 tablet by mouth twice daily. omeprazole (PRILOSEC) 40 mg capsule Take 1 capsule by mouth once daily. buPROPion XL (WELLBUTRIN XL) 300 mg 24 hr tablet Take 1 tablet by mouth once daily. mirabegron (MYRBETRIQ) 50 mg Tb24 Take 1 tablet by mouth once daily. aspirin, enteric coated (ADULT LOW DOSE ASPIRIN) 81 mg EC tablet Take 1 tablet by mouth once daily. SACCHAROMYCES BOULARDII (PROBIOTIC, S.BOULARDII, ORAL) Take by mouth once daily. cephALEXin (KEFLEX) 500 mg capsule Take 1 capsule by mouth twice daily for 7 days. zolpidem (AMBIEN) 5 mg tablet Take 1 tablet by mouth at bedtime as needed for up to 20 days. levothyroxine (SYNTHROID) 150 mcg tablet Take 1 tablet by mouth daily before breakfast. FAMILY HISTORY Problem Relation Age of Onset Diabetes Father Hypertension Father Cancer Maternal Grandmother Lymphoma Heart Maternal Grandfather hypertension Hypertension Brother Social History Tobacco Use Smoking status: Never Smokeless tobacco: Never Vaping Use Vaping Use: Never used Substance Use Topics Alcohol use: Yes Comment: rarely Drug use: No ASSESSMENT/PLAN: 1. Urinary frequency - ICD9: 788.41, ICD10: R35.0 acute - Send urine for culture - Begin treatment with keflex for 7 days - UA DIP, URINE (POC) - URINE CULTURE Prescription instructions reviewed with patient as applicable. Potential red flag symptoms discussed with the patient. Reviewed appropriate action plan to take if red flag symptoms occur. Patient agreeable to treatment plan. Suze Moreno APRN.CLERICAL SUPERVISOR documented in this encounterMer[facility]09-30-[facility]22 History of Present illness Narrative* Sue Weber MD - 02/21/2022 4:12 PM EDT Chief Complaint Patient presents with: Acute Visit: L ear pain; was treated on 01/27/22 for R ear infection; finished atb a couple weeks ago HPI Payton Mcqueen is a 56 year old female who presents here today for Above Complaints.. Treated with 7 days of amoxicillin for left OM 01/27/22. She improved with this, but a few days ago started with congestion in left ear, some pain behind tim Using Flonase, which has helped. Low gradefever. Past medical history, appointments, medications, allergies reviewed. Previous Medical History PAST MEDICAL HISTORY Diagnosis Date Acute gastritis without mention of hemorrhage Anxiety Benign neoplasm of stomach Cervical disc disorder with radiculopathy 02/18/2010 Cyst of ovary 01/01/2015 [facility] - see scanned documents Depressive disorder, not elsewhere classified Essential thrombocythemia (HCC) 06/02/2016 GERD (gastroesophageal reflux disease) Hypertension 08/28/11 IC (interstitial cystitis) Impaired fasting glucose 04/02/2010 Lumbar disc disease with radiculopathy 11/15/2010 Metabolic syndrome X Morbid obesity with BMI of 40.0-44.9, adult (HCC) 08/29/2013 Renal cyst, left 07/03/2016 18 mm, 06/18/16 Sciatica SI (sacroiliac) joint dysfunction 06/04/2011 Thoracolumbar back pain 07/20/2013 Unspecified hypothyroidism Urinary calculus, unspecified Renal stones Previous Surgical History PAST SURGICAL HISTORY Procedure Laterality Date CHOLECYSTECTOMY 1991 Cholecystectomy CYSTOSCOPY,DIL BLADDER,LOCAL ANESTH 01/18/14 EGD TRANSORAL BIOPSY SINGLE/MULTIPLE 04/09/2007 gastritis, gastric polyps KIDNEY SURGERY HX 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 6 weeks Erythromycin GI Upset Lisinopril Unknown Cough, hypotension Metformin GI Upset Prochlorperazine Mental Status Change Agitation, felt ill Toradol [Ketorolac] Vomiting Vesicare [Solifenac* Rash Current Medications Current Outpatient Medications on File Prior to Visit Medication Sig sucralfate (CARAFATE) 1 gram tablet Take 1 tablet by mouth four times daily. Before meals and at bedtime zolpidem (AMBIEN) 5 mg tablet Take 1 tablet by mouth at bedtime as needed for up to 20 days. ondansetron orally disintegrating (ZOFRAN ODT) 4 mg disintegrating tablet Take 1 tablet by mouth every 6 hours as needed for nausea/vomiting. levothyroxine (SYNTHROID) 150 mcg tablet Take 1 tablet by mouth daily before breakfast. busPIRone (BUSPAR) 15 mg tablet Take 1 tablet by mouth twice daily. omeprazole (PRILOSEC) 40 mg capsule Take 1 capsule by mouth once daily. buPROPion XL (WELLBUTRIN XL) 300 mg 24 hr tablet Take 1 tablet by mouth once daily. mirabegron (MYRBETRIQ) 50 mg Tb24 Take 1 tablet by mouth once daily. aspirin, enteric coated (ADULT LOW DOSE ASPIRIN) 81 mg EC tablet Take 1 tablet by mouth once daily. SACCHAROMYCES BOULARDII (PROBIOTIC, S.BOULARDII, ORAL) Take by mouth once daily. No current facility-administered medications on file prior to visit. Social History Social History Tobacco Use Smoking status: Never Smokeless tobacco: Never Vaping Use Vaping Use: Never used Substance Use Topics Alcohol use: Yes Comment: rarely Drug use: No EXAM: BP 144/90 Pulse 88 Resp 18 Wt 116.6 kg (257 lb) LMP 08/09/2018 (Approximate) SpO2 97% BMI 44.11 kg/m General Appearance: Well appearing, alert, in no acute distress, well-hydrated, well nourished.. Ears: left TM mildly erythematous, positive fluid, posterior tenderness. Neck: Supple, no adenopathy; thyroid symmetric, normal size, no bruits. Lungs: Lungs clear to auscultation. No wheezing, rhonchi, rales.. Heart: RRR without murmur, gallop, or rubs. No ectopy. Health Maintenance List HEPATITIS B(1 of 3 - 3-dose series) Never done COLORECTAL CANCER SCREENING Never done BP CONTROLLED (<130/80) due on 10/10/2018 HPV TESTING due on 04/10/2020 PAP TESTING due on 04/11/2020 COVID-19 VACCINE(3 - Booster for Moderna series) due on 02/11/2021 DEPRESSION ASSESSMENT Never done INFLUENZA(1) due on 01/23/2022 DTAP,TDAP,TD(6 - Td or Tdap) due on 11/18/2022 SHINGRIX VACCINE(1 of 2) due on 11/18/2022 HEPATITIS C SCREENING due on 11/26/2022 HIV SCREENING due on 11/26/2022 MAMMOGRAM due on 12/09/2022 ANNUAL PCP TEAM CHRONIC DISEASE VISIT due on 12/30/2022 DIABETES SCREEN due on 11/18/2024 LIPID SCREEN due on 10/16/2025 Data reviewed None ASSESSMENT/PLAN: 1. OM (otitis media), recurrent, left - ICD9: 382.9, ICD10: H66.92 - AZITHROMYCIN 250 MG TABLET Call if not improving in 5-7 days Medical Decision Making: Problems: Low: Acute, uncomplicated illness or injury Risk: Moderate: Drug management Medical Decision Making Level: 3 - Low Sue Weber MD documented in this encounterMer[facility]09-09-2022 Miscellaneous Notes* Telephone Encounter - Jovi Florian ALVINO - 01/31/2022 8:34 AM EDT See MC message- Pt seen in [facility] on 01/27 and was given amoxicillin twice daily for 7 days. Pleaseadvise if pt should return to office? Jovi Florian LPN documented in this encounterMer[facility]09-05-2022 Instructions* Patient Instructions* Suze Moreno APRN.CLERICAL SUPERVISOR - 01/27/2022 3:17 PM EDT Ear Infection The inside or outside of your ear can become infected. If your outer ear or ear canal is swollen and infected, you have an outer ear infection. Your ear may itch or be red and swollen. Your ear may hurt or have drainage as well. This infection happens if germs enter your ears and cause a problem. This is more likely to happen if you have a wound in your ear. It can also happen if there is something in your ear or if your ear is wet for a long time. You may have signs a few days after swimming. This is why outer ear infections are often called swimmers ear. Long-term outer ear infections may be caused by: Allergic reaction Skin problems, such as eczema or psoriasis Chronic middle ear infections What care is needed at home? Ask your doctor what you need to do when you go home. Make sure you ask questions if you do not understand what the doctor says. This way you will know what you need to do. Take your drugs as ordered by your doctor. Be sure to treat an infection right away. This will help to keep it from spreading to other parts of your ear. Heat may help ease your ear pain. If your doctor tells you to use heat, put a heating pad or hot water bottle on your ear for no more than 20 minutes at a time. Never go to sleep with a heating pad on as this can cause alexander. What follow-up care is needed? Your doctor may ask you to make visits to the office to check on your progress. Be sure to keep these visits. What problems could happen? Very bad infection Hearing problems What can be done to prevent this health problem? Keep your ears dry: Use a bathing cap or ear plugs when swimming. Use a towel to dry your ears when they are wet. Do not swim in dirty or polluted water. Avoid getting soap or other items in your ears. Do not scratch your ears. Do not put swabs or other objects in your ears. When do I need to call the doctor? Signs of infection. These include a fever of 100.4 F (38 C) or higher, chills, very bad sore throat, ear or sinus pain. Signs get worse You feel pain and there is redness of the bone behind your ear Drugs you are taking are not working for you Health problem is not better or you are feeling worse Helpful tips Talk to your doctor to see if there are drops you can use to help prevent the growth of germs. Outer ear infections are not contagious, but need treatment. documented in this encounterMer[facility]09-05-2022 History of Present illness Narrative* Suze Moreno APRN.BUD - 01/27/2022 3:16 PM EDT CC: Patient presents with: Sinus Problem: Right ear pain, sneezing, drainage x 4 days HPI: Payton Mcqueen is a 56 year old female who presents to the office with complaint of respiratorysymptoms, head congestion, sinus symptoms, ear symptoms, and rhinorrhea for a few days. Symptoms are worsening Associated symptoms includes sneezing and ear pain. Denies headache, body aches, fever, nausea, vomiting , and diarrhea. Treatments tried include nothing so far. with no relief of symptoms. Sick contacts: unknown. History of asthma, frequent episodes of bronchitis, chronic bronchitis, bronchiectasis or COPD: No Smoker: No Seasonal/environmental allergies: No The ROS is otherwise negative. The patient's pmh, medications, allergies, and past visits are reviewed. PHYSICAL EXAM: BP 162/72 Pulse 91 Temp 36.2 C (97.1 F) Resp 21 Wt 114.9 kg (253 lb 3.2 oz) LMP 08/09/2018 (Approximate) SpO2 96% BMI 43.46 kg/m General appearance: alert, cooperative, pleasant, in no acute distress Head: Normocephalic Eyes: EOM's intact, conjunctiva pink and moist, no icterus, sclera white, non-injected Ears: Right ear: External ear/canal- Normal, TM - erythematous, bulging. Left ear: External ear/canal- Normal, TM - clear with good landmarks Oropharynx:moist without lesions, No erythema, exudates or tonsillar hypertrophy. Heart: Negative. RRR without obvious murmur, gallop, or rubs. No ectopy. Lungs: clear to auscultation, without rales or wheeze, good air exchange PAST MEDICAL HISTORY Diagnosis Date Acute gastritis without mention of hemorrhage Anxiety Benign neoplasm of stomach Cervical disc disorder with radiculopathy 02/18/2010 Cyst of ovary 01/01/2015 [facility] - see scanned documents Depressive disorder, not elsewhere classified Essential thrombocythemia (HCC) 06/02/2016 GERD (gastroesophageal reflux disease) Hypertension 08/28/11 IC (interstitial cystitis) Impaired fasting glucose 04/02/2010 Lumbar disc disease with radiculopathy 11/15/2010 Metabolic syndrome X Morbid obesity with BMI of 40.0-44.9, adult ([facility]) 08/29/2013 Renal cyst, left 07/03/2016 18 mm, 06/18/16 Sciatica SI (sacroiliac) joint dysfunction 06/04/2011 Thoracolumbar back pain 07/20/2013 Unspecified hypothyroidism Urinary calculus, unspecified Renal stones PAST SURGICAL HISTORY Procedure Laterality Date CHOLECYSTECTOMY 1991 Cholecystectomy CYSTOSCOPY,DIL BLADDER,LOCAL ANESTH 01/18/14 EGD TRANSORAL BIOPSY SINGLE/MULTIPLE 04/09/2007 gastritis, gastric polyps KIDNEY SURGERY HX 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 Valadez PAST SURGICAL HISTORY OF WISDOM TEETH EXTRACTIONS PAST SURGICAL HISTORY OF 05/2012 bladder hydrodistension X 2 PAST SURGICAL HISTORY OF 2014 pain injection lumbar- multiple PAST SURGICAL HISTORY OF Cyst removed from head ALLERGIES Celebrex [Celecoxib], Erythromycin, Lisinopril, Metformin, Prochlorperazine, Toradol [Ketorolac], and Vesicare [Solifenacin] MEDICATIONS sucralfate (CARAFATE) 1 gram tablet Take 1 tablet by mouth four times daily. Before meals and at bedtime zolpidem (AMBIEN) 5 mg tablet Take 1 tablet by mouth at bedtime as needed for up to 20 days. ondansetron orally disintegrating (ZOFRAN ODT) 4 mg disintegrating tablet Take 1 tablet by mouth every 6 hours as needed for nausea/vomiting. levothyroxine (SYNTHROID) 150 mcg tablet Take 1 tablet by mouth daily before breakfast. busPIRone (BUSPAR) 15 mg tablet Take 1 tablet by mouth twice daily. omeprazole (PRILOSEC) 40 mg capsule Take 1 capsule by mouth once daily. buPROPion XL (WELLBUTRIN XL) 300 mg 24 hr tablet Take 1 tablet by mouth once daily. mirabegron (MYRBETRIQ) 50 mg Tb24 Take 1 tablet by mouth once daily. aspirin, enteric coated (ADULT LOW DOSE ASPIRIN) 81 mg EC tablet Take 1 tablet by mouth once daily. SACCHAROMYCES BOULARDII (PROBIOTIC, S.BOULARDII, ORAL) Take by mouth once daily. amoxicillin (AMOXIL) 875 mg tablet Take 1 tablet by mouth twice daily for 7 days. FAMILY HISTORY Problem Relation Age of Onset Diabetes Father Hypertension Father Cancer Maternal Grandmother Lymphoma Heart Maternal Grandfather hypertension Hypertension Brother Social History Tobacco Use Smoking status: Never Smokeless tobacco: Never Vaping Use Vaping Use: Never used Substance Use Topics Alcohol use: Yes Comment: rarely Drug use: No ASSESSMENT/PLAN: 1. Acute otitis media, right - ICD9: 382.9, ICD10: H66.91 (primary diagnosis) - COVID WITH FLUA+B, ROUTINE 2. At increased risk of exposure to COVID-19 virus - ICD9: V15.89, ICD10: Z91.89 - COVID WITH FLUA+B, ROUTINE Amoxicillin bid for 7 days. Prescription instructions reviewed with patient as applicable. Potential red flag symptoms discussed with the patient. Reviewed appropriate action plan to take if red flag symptoms occur. Patient agreeable to treatment plan. Suze Moreno APRN.BUD documented in this encounterMercy [facility]08-12-2022 Miscellaneous Notes* Telephone Encounter - Mavis Shen Ma - 01/03/2022 11:45 AM EDT See pt message and advise. I believe pt is meaning Carafate. Last Rx in hx was back in 2011. Mavis Shen Ma documented in this encounterMercy [facility]08-08-2022 History of Present illness Narrative* Sue Weber MD - 12/30/2021 3:00 PM EDT Chief Complaint Patient presents with: Follow Up HPI Payton Mcqueen is a 56 year old female who presents here today for 1 month follow up. Pt recently seen by Burke Snider CNP on 12/24/21 due to increased insomnia issues. Insomnia: At previous office visit pt was started on Doxepin 10 mg once daily to help with sleeping. Pt reported only getting 2-3 hours per night at last office visit. Two weeks after her appt pt wrote into the office stating that the first couple times of taking medication she slept through the night, then started again not being able to sleep well. It was recommended she take 10 mg of Doxepin 2tabs at bedtime. [place] improvement with fast heart rate and the nervous feeling. Three days after ptadvised to increase her medication she wrote into the office with complaints of medication making her groggy and still not sleeping. She was unable to take 1/2 of the medication (15 mg) due to this being a capsule. Pt was then started on Remerom 15 mg once daily in place of Doxepin. Pt states that Remeron was the worst experience and made her feel unwell. Pt seen by Burke Snider CNP on and given a short term Rx of Ambien 5 mg once daily and was told this is not a care home solution. Doestake her couple hours to fall asleep but is now sleeping better through the night. Thyroid: Taking Synthroid 150 mcg daily. Denies missing any dosages. Depression/SHEYLA: Taking Buspar 15 mg BID and Wellbutrin xl 300 mg daily. Admits that she thinks her anxiety is making sleep worse and she needs to calm down and quit over thinking everything. Worried about giving her an ulcer. GI - Stomach upset, nausea, given Rx of Zofran by Burke Snider CNP. Starts school next week, hoping to get back into her normal routine. Past medical history, appointments, medications, allergies reviewed. Previous Medical History PAST MEDICAL HISTORY Diagnosis Date Acute gastritis without mention of hemorrhage Anxiety Benign neoplasm of stomach Cervical disc disorder with radiculopathy 02/18/2010 Cyst of ovary 01/01/2015 [facility] - see scanned documents Depressive disorder, not elsewhere classified Essential thrombocythemia (HCC) 06/02/2016 GERD (gastroesophageal reflux disease) Hypertension 08/28/11 IC (interstitial cystitis) Impaired fasting glucose 04/02/2010 Lumbar disc disease with radiculopathy 11/15/2010 Metabolic syndrome X Morbid obesity with BMI of 40.0-44.9, adult ([facility]) 08/29/2013 Renal cyst, left 07/03/2016 18 mm, 06/18/16 Sciatica SI (sacroiliac) joint dysfunction 06/04/2011 Thoracolumbar back pain 07/20/2013 Unspecified hypothyroidism Urinary calculus, unspecified Renal stones Previous Surgical History PAST SURGICAL HISTORY Procedure Laterality Date CHOLECYSTECTOMY 1991 Cholecystectomy CYSTOSCOPY,DIL BLADDER,LOCAL ANESTH 01/18/14 EGD TRANSORAL BIOPSY SINGLE/MULTIPLE 04/09/2007 gastritis, gastric polyps KIDNEY SURGERY HX 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 6 weeks Erythromycin GI Upset Lisinopril Unknown Cough, hypotension Metformin GI Upset Prochlorperazine Mental Status Change Agitation, felt ill Toradol [Ketorolac] Vomiting Vesicare [Solifenac* Rash Current Medications Current Outpatient Medications on File Prior to Visit Medication Sig zolpidem (AMBIEN) 5 mg tablet Take 1 tablet by mouth at bedtime as needed for up to 7 days. ondansetron orally disintegrating (ZOFRAN ODT) 4 mg disintegrating tablet Take 1 tablet by mouth every 6 hours as needed for nausea/vomiting. levothyroxine (SYNTHROID) 150 mcg tablet Take 1 tablet by mouth daily before breakfast. busPIRone (BUSPAR) 15 mg tablet Take 1 tablet by mouth twice daily. omeprazole (PRILOSEC) 40 mg capsule Take 1 capsule by mouth once daily. buPROPion XL (WELLBUTRIN XL) 300 mg 24 hr tablet Take 1 tablet by mouth once daily. mirabegron (MYRBETRIQ) 50 mg Tb24 Take 1 tablet by mouth once daily. aspirin, enteric coated (ADULT LOW DOSE ASPIRIN) 81 mg EC tablet Take 1 tablet by mouth once daily. SACCHAROMYCES BOULARDII (PROBIOTIC, S.BOULARDII, ORAL) Take by mouth once daily. No current facility-administered medications on file prior to visit. Social History Social History Tobacco Use Smoking status: Never Smokeless tobacco: Never Vaping Use Vaping Use: Never used Substance Use Topics Alcohol use: Yes Comment: rarely Drug use: No EXAM: BP 116/74 (BP Site: Left Arm, BP Position: Sitting, BP Cuff Size: Regular Adult) Pulse 82 Resp 16 Wt 115.2 kg (254 lb) LMP 08/09/2018 (Approximate) BMI 43.60 kg/m General Appearance: Well appearing, alert, in no acute distress, well-hydrated, well nourishedand Obese. Neck: Supple, no adenopathy; thyroid symmetric, normal size, no bruits. Lungs: Lungs clear to auscultation. No wheezing, rhonchi, rales.. Heart: RRR without murmur, gallop, or rubs. No ectopy. Health Maintenance List COLORECTAL CANCER SCREENING Never done BP CONTROLLED (<130/80) due on 10/10/2018 HPV TESTING due on 04/10/2020 PAP TESTING due on 04/11/2020 COVID-19 VACCINE(3 - Booster for Moderna series) due on 05/19/2021 DTAP,TDAP,TD(6 - Td or Tdap) due on 11/18/2022 SHINGRIX VACCINE(1 of 2) due on 11/18/2022 HEPATITIS C SCREENING due on 11/26/2022 HIV SCREENING due on 11/26/2022 INFLUENZA(1) due on 01/23/2022 DEPRESSION SCREENING due on 11/18/2022 MAMMOGRAM due on 12/09/2022 ANNUAL PCP TEAM CHRONIC DISEASE VISIT due on 12/24/2022 DIABETES SCREEN due on 11/18/2024 LIPID SCREEN due on 10/16/2025 Data reviewed Appointment on 12/25/2021 Component Date Value TSH 12/25/2021 2.240 Free T4 12/25/2021 1.5 Office Visit on 11/21/2021 Component Date Value COVID 19 Result 11/21/2021 SARS-CoV-2 (Agent of COVID-19) Not Detected by RT-PCR or equivalent method. Influenza A PCR 11/21/2021 Negative for Influenza A by RT-PCR Influenza B PCR 11/21/2021 Negative for Influenza B by RT-PCR Appointment on 11/18/2021 Component Date Value TSH 11/18/2021 4.870 (A) Protein, Total 11/18/2021 7.4 Albumin 11/18/2021 4.5 Calcium, Total 11/18/2021 9.2 Bilirubin, Total 11/18/2021 0.5 Alkaline Phosphatase 11/18/2021 139 (A) AST 11/18/2021 32 ALT 11/18/2021 22 Glucose 11/18/2021 127 (A) BUN 11/18/2021 8 Creatinine 11/18/2021 0.80 Sodium 11/18/2021 141 Potassium 11/18/2021 4.7 Chloride 11/18/2021 104 CO2 11/18/2021 27 Anion Gap 11/18/2021 10 Estimated Glomerular Lopez* 11/18/2021 88 Free T4 11/18/2021 1.2 TPO ANTIBODY 11/18/2021 710.9 (A) Hemoglobin A1C 11/18/2021 5.9 (A) Estimated Average Glucose 11/18/2021 123 ASSESSMENT/PLAN: 1. Primary insomnia - ICD9: 307.42, ICD10: F51.01 (primary diagnosis) - Short term Rx (#20) of ambien 5 mg 2. Hypothyroidism, unspecified type - ICD9: 244.9, ICD10: E03.9 - Stable - Continue current medication regimen. - Recheck labs in 3 months 3. Generalized anxiety disorder - ICD9: 300.02, ICD10: F41.1 - Continue current medication regimen. 4. Adjustment disorder with depressed mood - ICD9: 309.0, ICD10: F43.21 - Continue current medication regimen. 5. Acute sinusitis, recurrence not specified, unspecified location - ICD9: 461.9, ICD10: J01.90 - Try Katia or Claritin OTC 6. Nausea - ICD9: 787.02, ICD10: R11.0 - Rx for Zofran 3 mo follow up with labs I agree with the Chief Complaint, ROS, and Past Histories independently gathered by the clinical data support analyst and the remaining scribed note accurately describes my personal service to the patient. Medical Decision Making: Problems: Moderate: 2+ stable chronic illnesses Data: Unique test(s) ordered: 3+ Risk: Moderate: Drug management Medical Decision Making Level: 4 - Moderate Sue Weber MD The documentation for this note was completed by Mavis Shen Ma acting as scribe for Sue Weber MD. December 30, 2021 3:20 PM. Mavis Shen Ma documented in this encounterMer[facility]08-04-2022 Miscellaneous Notes* Telephone Encounter - Geeta Milton RN - 12/26/2021 12:47 PM EDT Pt called and is notified of providers results and instructions. Pt voices understanding. Geeta Milton RN * Telephone Encounter - Margaux Bueno LPN - 12/26/2021 9:05 AM EDT TC to pt. LM to call office, ask for triage nurse to get results. Margaux Bueno LPN * Telephone Encounter - Jerica Chaudhari APRN.CNP - 12/26/2021 7:47 AM EDT Can you please call the patient and let her know that her thyroid labs are normal. Continue currentdose of Synthroid. No further testing needed at this time. Please let me know if she has any questions. Thank you. Jerica Chaudhari APRN.BUD documented in this encounterMercy [facility]08-02-2022 Instructions* Patient Instructions* Burke Snider APRN.BUD - 12/24/2021 1:55 PM EDT 1. Stop doxepin and Remeron. 2. Get labs 3. Sent in Zofran for nausea 4. Take Ambien 5 mg for sleep to hopefully reset sleep. 5. Do not drive with the Ambien at night. Burke Snider APRN.CNP documented in this encounterMercy [facility]08-02-2022 History of Present illness Narrative* Burke Snider APRN.CNP - 12/24/2021 1:42 PM EDT Chief Complaint Patient presents with: Medication Problem HPI Payton Mcqueen is a 56 year old female who presents here today for Above Complaints.. Patient here to discuss ongoing insomnia. Patient has a long history of difficulty with sleeping. She has previously been on trazodone and amitriptyline but is had side effects such as grogginess. She was recently placed on doxepin for sleeping difficulties. Dose was increased and then eventually cut in half due to grogginess complaints. Patient my charted myself as I am covering for her PCP yesterday as doxepin was not working. I reviewed the next step plan that was indicated by PCP, which included trial of Remeron. Patient was prescribed Remeron 15 mg prior to bedtime. Patient states that she did not have a good reaction to the medication and experienced difficulty sleeping, nausea, agitat ion, rapid heartbeat. She had to cancel a dental appointment today due to her nausea. She took her Remeron dose at 11:30 PM. Other past interventions include ZzzQuil Gummies, melatonin. She does express generalized anxiety and depression which she is taking Wellbutrin 300 mg daily and BuSpar 15 mg 1 pill twice daily. She has tried to do well with good sleep hygiene. Past medical history, appointments, medications, allergies reviewed. Previous Medical History PAST MEDICAL HISTORY Diagnosis Date Acute gastritis without mention of hemorrhage Anxiety Benign neoplasm of stomach Cervical disc disorder with radiculopathy 02/18/2010 Cyst of ovary 01/01/2015 [facility] - see scanned documents Depressive disorder, not elsewhere classified Essential thrombocythemia (HCC) 06/02/2016 GERD (gastroesophageal reflux disease) Hypertension 08/28/11 IC (interstitial cystitis) Impaired fasting glucose 04/02/2010 Lumbar disc disease with radiculopathy 11/15/2010 Metabolic syndrome X Morbid obesity with BMI of 40.0-44.9, adult (HCC) 08/29/2013 Renal cyst, left 07/03/2016 18 mm, 06/18/16 Sciatica SI (sacroiliac) joint dysfunction 06/04/2011 Thoracolumbar back pain 07/20/2013 Unspecified hypothyroidism Urinary calculus, unspecified Renal stones Previous Surgical History PAST SURGICAL HISTORY Procedure Laterality Date CHOLECYSTECTOMY 1991 Cholecystectomy CYSTOSCOPY,DIL BLADDER,LOCAL ANESTH 01/18/14 EGD TRANSORAL BIOPSY SINGLE/MULTIPLE 04/09/2007 gastritis, gastric polyps KIDNEY SURGERY HX 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 6 weeks Erythromycin GI Upset Lisinopril Unknown Cough, hypotension Metformin GI Upset Prochlorperazine Mental Status Change Agitation, felt ill Toradol [Ketorolac] Vomiting Vesicare [Solifenac* Rash Current Medications Current Outpatient Medications on File Prior to Visit Medication Sig mirtazapine (REMERON) 15 mg tablet Take 1 tablet by mouth daily at bedtime. levothyroxine (SYNTHROID) 150 mcg tablet Take 1 tablet by mouth daily before breakfast. busPIRone (BUSPAR) 15 mg tablet Take 1 tablet by mouth twice daily. omeprazole (PRILOSEC) 40 mg capsule Take 1 capsule by mouth once daily. buPROPion XL (WELLBUTRIN XL) 300 mg 24 hr tablet Take 1 tablet by mouth once daily. mirabegron (MYRBETRIQ) 50 mg Tb24 Take 1 tablet by mouth once daily. aspirin, enteric coated (ADULT LOW DOSE ASPIRIN) 81 mg EC tablet Take 1 tablet by mouth once daily. SACCHAROMYCES BOULARDII (PROBIOTIC, S.BOULARDII, ORAL) Take by mouth once daily. No current facility-administered medications on file prior to visit. Social History Social History Tobacco Use Smoking status: Never Smoker Smokeless tobacco: Never Used Vaping Use Vaping Use: Never used Substance Use Topics Alcohol use: Yes Comment: rarely Drug use: No REVIEW OF SYSTEMS: as above Reviewed relevant PMHx, PSHx, Social Hx, current medications and allergies. EXAM: BP 138/76 Pulse 100 Temp 36.4 C (97.6 F) (Left Tympanic) Resp 16 Wt 114.3 kg (252 lb) LMP08/09/2018 (Approximate) BMI 43.26 kg/m Appearance: well dressed well groomed, cooperative and pleasant Behavior: good eye contact Speech: normal and fluent and coherent Mood: euthymic Affect: appropriate Perceptions: none Thought process: goal directed Thought Content: normal Intelligence level: normal Insight: good Judgment: good Health Maintenance List COLORECTAL CANCER SCREENING Never done BP CONTROLLED (<130/80) due on 10/10/2018 HPV TESTING due on 04/10/2020 PAP TESTING due on 04/11/2020 COVID-19 VACCINE(3 - Booster for Moderna series) due on 05/19/2021 DTAP,TDAP,TD(6 - Td or Tdap) due on 11/18/2022 SHINGRIX VACCINE(1 of 2) due on 11/18/2022 HEPATITIS C SCREENING due on 11/26/2022 HIV SCREENING due on 11/26/2022 INFLUENZA(1) due on 01/23/2022 DEPRESSION SCREENING due on 11/18/2022 ANNUAL PCP TEAM CHRONIC DISEASE VISIT due on 11/26/2022 MAMMOGRAM due on 12/09/2022 DIABETES SCREEN due on 11/18/2024 LIPID SCREEN due on 10/16/2025 Data reviewed Component Latest Ref Rng & Units 11/18/2021 11/21/2021 Protein, Total 6.3 - 8.0 g/dL 7.4 Albumin 3.9 - 4.9 g/dL 4.5 Calcium 8.5 - 10.2 mg/dL 9.2 Bilirubin, Total 0.2 - 1.3 mg/dL 0.5 Alkaline Phosphatase 34 - 123 U/L 139 (H) AST 13 - 35 U/L 32 ALT 7 - 38 U/L 22 Glucose 74 - 99 mg/dL 127 (H) BUN 7 - 21 mg/dL 8 Creatinine 0.58 - 0.96 mg/dL 0.80 Sodium 136 - 144 mmol/L 141 Potassium 3.7 - 5.1 mmol/L 4.7 Chloride 97 - 105 mmol/L 104 CO2 22 - 30 mmol/L 27 Anion Gap 9 - 18 mmol/L 10 eGFR >=60 mL/min/1.73m 88 COVID 19 Result Not Detected SARS-CoV-2 (Agent of COVID-19) Not Detected by RT- PCR or equivalent method. Influenza A PCR Negative for Influenza A by RT-PCR Negative for Influenza A by RT-PCR Influenza B PCR Negative for Influenza B by RT-PCR Negative for Influenza B by RT-PCR Hemoglobin A1C 4.3 - 5.6 % 5.9 (H) Estimated Average Glucose mg/dL 123 TSH 0.270 - 4.200 mIU/L 4.870 (H) Free T4 0.9 - 1.7 ng/dL 1.2 Microsomal Antibody <5.6 IU/mL 710.9 (H) ASSESSMENT/PLAN: 1. Primary insomnia - ICD9: 307.42, ICD10: F51.01 (primary diagnosis) -Patient has been on multiple medications for insomnia in the past with some side effects when taking consistently. Patient states that she has tried to reset her sleep schedule in the past with somesuccess and then did not need medication. We will give her a few days of Ambien at a reduced dose. Discussed that this is not a long-term solution. Discussed that medication has side effect of grogginess and that she should not drive on this medication. She verbalized understanding. - ZOLPIDEM 5 MG TABLET PDMP website checked and validated. All prescriptions have been APPROPRIATELY filled. No suspiciousactivity was identified. 12/24/2021 by Burke Snider APRN.CNP 2. Hypothyroidism, unspecified type - ICD9: 244.9, ICD10: E03.9 - Check TSH 3. Generalized anxiety disorder - ICD9: 300.02, ICD10: F41.1 - Continue with buspar 4. Nausea - ICD9: 787.02, ICD10: R11.0 - Secondary to medication side effect - ONDANSETRON 4 MG DISINTEGRATING TABLET Burke Snider APRN.CNP This note was partly generated using [employer] voice recognition dictation and may contain some misspelled or inaccurate words missed on review. documented in this encounterMer[facility]08-01-2022 Miscellaneous Notes* Telephone Encounter - Burkelilliam Snider APRN.CNP - 12/23/2021 2:00 PM EDT The following approved medication requests have been transmitted electronically. Signed Prescriptions Disp Refills mirtazapine (REMERON) 15 mg tablet 30 tablet 3 Sig: Take 1 tablet by mouth daily at bedtime. Burke Snider APRN.CNP * Telephone Encounter - Mavis Shen Ma - 12/11/2021 2:35 PM EDT See update from pt and advise. Mavis Shen Ma documented in this encounterMercy [facility]07-05-2022 History of Present illness Narrative* Sue Weber MD - 11/26/2021 11:40 AM EDT Chief Complaint Patient presents with: Sleep Problem HPI Payton Mcqueen is a 56 year old female who presents here today for sleep issues. Thyroid: Has been having issues with sleeping, only getting about 2-3 hours of sleep at a time and then other times feels she has a lot of energy and her heart is racing. She feels antsy. She stated these issues have been ongoing x 1 month. She admits that in the summer her sleep patterns will change, she will stay up later and sleep in later but she feels this sleep issue is different. She admits to not taking the Synthroid correctly when she is off in the [place], misses a day or 2. Started on increased dosage of Levothyroxine 150 mcg last Thursday. She has tried ZZquil gummies but it didn't help, she stated Melatonin is a main ingredient in the ZZQuil. She used Trazodone in the past but itmade her feel groggy. SHEYLA & Depression: Taking Wellbutrin 300 mg daily and Buspar 15 mg 1 pill twice daily. Sinus infection has improved. Tested negative for COVID-19. Past medical history, appointments, medications, allergies reviewed. Previous Medical History PAST MEDICAL HISTORY Diagnosis Date Acute gastritis without mention of hemorrhage Anxiety Benign neoplasm of stomach Cervical disc disorder with radiculopathy 02/18/2010 Cyst of ovary 01/01/2015 [facility] - see scanned documents Depressive disorder, not elsewhere classified Essential thrombocythemia (HCC) 06/02/2016 GERD (gastroesophageal reflux disease) Hypertension 08/28/11 IC (interstitial cystitis) Impaired fasting glucose 04/02/2010 Lumbar disc disease with radiculopathy 11/15/2010 Metabolic syndrome X Morbid obesity with BMI of 40.0-44.9, adult (HCC) 08/29/2013 Renal cyst, left 07/03/2016 18 mm, 06/18/16 Sciatica SI (sacroiliac) joint dysfunction 06/04/2011 Thoracolumbar back pain 07/20/2013 Unspecified hypothyroidism Urinary calculus, unspecified Renal stones Previous Surgical History PAST SURGICAL HISTORY Procedure Laterality Date CHOLECYSTECTOMY 1991 Cholecystectomy CYSTOSCOPY,DIL BLADDER,LOCAL ANESTH 01/18/14 EGD TRANSORAL BIOPSY SINGLE/MULTIPLE 04/09/2007 gastritis, gastric polyps KIDNEY SURGERY HX 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 6 weeks Erythromycin GI Upset Lisinopril Unknown Cough, hypotension Metformin GI Upset Prochlorperazine Mental Status Change Agitation, felt ill Toradol [Ketorolac] Vomiting Vesicare [Solifenac* Rash Current Medications Current Outpatient Medications on File Prior to Visit Medication Sig levothyroxine (SYNTHROID) 137 mcg tablet Take 1 tablet by mouth once daily. doxycycline monohydrate 100 mg tablet Take 1 tablet by mouth twice daily for 5 days. busPIRone (BUSPAR) 15 mg tablet Take 1 tablet by mouth twice daily. omeprazole (PRILOSEC) 40 mg capsule Take 1 capsule by mouth once daily. buPROPion XL (WELLBUTRIN XL) 300 mg 24 hr tablet Take 1 tablet by mouth once daily. mirabegron (MYRBETRIQ) 50 mg Tb24 Take 1 tablet by mouth once daily. aspirin, enteric coated (ADULT LOW DOSE ASPIRIN) 81 mg EC tablet Take 1 tablet by mouth once daily. SACCHAROMYCES BOULARDII (PROBIOTIC, S.BOULARDII, ORAL) Take by mouth once daily. No current facility-administered medications on file prior to visit. Social History Social History Tobacco Use Smoking status: Never Smoker Smokeless tobacco: Never Used Vaping Use Vaping Use: Never used Substance Use Topics Alcohol use: Yes Comment: rarely Drug use: No EXAM: BP 138/88 Pulse 84 Resp 18 Wt 116.7 kg (257 lb 3.2 oz) LMP 08/09/2018 (Approximate) BMI 44.15 kg/m General Appearance: Well appearing, alert, in no acute distress, well-hydrated, well nourished. andObese. Neck: Supple, no adenopathy; thyroid symmetric, normal size. Lungs: Lungs clear to auscultation. No wheezing, rhonchi, rales.. Heart: RRR without murmur, gallop, or rubs. No ectopy. Health Maintenance List HEPATITIS C SCREENING Never done HIV SCREENING Never done COLORECTAL CANCER SCREENING Never done BP CONTROLLED (<130/80) due on 10/10/2018 HPV TESTING due on 04/10/2020 PAP TESTING due on 04/11/2020 COVID-19 VACCINE(3 - Booster for Moderna series) due on 05/19/2021 MAMMOGRAM due on 11/05/2021 DTAP,TDAP,TD(6 - Td or Tdap) due on 11/18/2022 SHINGRIX VACCINE(1 of 2) due on 11/18/2022 INFLUENZA(Season Ended) due on 01/23/2022 ANNUAL PCP TEAM CHRONIC DISEASE VISIT due on 11/18/2022 DEPRESSION SCREENING due on 11/18/2022 DIABETES SCREEN due on 11/18/2024 LIPID SCREEN due on 10/16/2025 Data reviewed Office Visit on 11/21/2021 Component Date Value COVID 19 Result 11/21/2021 SARS-CoV-2 (Agent of COVID-19) Not Detected by RT-PCR or equivalent method. Influenza A PCR 11/21/2021 Negative for Influenza A by RT-PCR Influenza B PCR 11/21/2021 Negative for Influenza B by RT-PCR Appointment on 11/18/2021 Component Date Value TSH 11/18/2021 4.870 (A) Protein, Total 11/18/2021 7.4 Albumin 11/18/2021 4.5 Calcium, Total 11/18/2021 9.2 Bilirubin, Total 11/18/2021 0.5 Alkaline Phosphatase 11/18/2021 139 (A) AST 11/18/2021 32 ALT 11/18/2021 22 Glucose 11/18/2021 127 (A) BUN 11/18/2021 8 Creatinine 11/18/2021 0.80 Sodium 11/18/2021 141 Potassium 11/18/2021 4.7 Chloride 11/18/2021 104 CO2 11/18/2021 27 Anion Gap 11/18/2021 10 Estimated Glomerular Lopez* 11/18/2021 88 Free T4 11/18/2021 1.2 TPO ANTIBODY 11/18/2021 710.9 (A) Hemoglobin A1C 11/18/2021 5.9 (A) Estimated Average Glucose 11/18/2021 123 ASSESSMENT/PLAN: 1. Sleeping difficulty - ICD9: 780.50, ICD10: G47.9 (primary diagnosis) Recommend setting up a routine before bed, limit screen time, relaxation techniques Try Doxepin 10 mg at bedtime May try Tylenol PM OTC prn 2. Screening for colon cancer - ICD9: V76.51, ICD10: Z12.11 - FECAL OCCULT BLOOD TEST 3. Encounter for screening mammogram for malignant neoplasm of breast - ICD9: V76.12, ICD10: Z12.31 - Encouraged monthly BSE - Follow up for annual exam in one year. - Order faxed to [facility] 4. Hypothyroidism, unspecified type - ICD9: 244.9, ICD10: E03.9 - Instructed patient on importance of taking on an empty stomach either first thing in the morning or at bedtime. Continue current medications. 5. Adjustment disorder with depressed mood - ICD9: 309.0, ICD10: F43.21 Stable Continue current medications. 6. Generalized anxiety disorder - ICD9: 300.02, ICD10: F41.1 Stable Continue current medications. Follow up in 1 month with labs prior. I agree with the Chief Complaint, ROS, and Past Histories independently gathered by the clinical data support analyst and the remaining scribed note accurately describes my personal service to the patient. Medical Decision Making: Problems: Moderate: 1+ chronic illnesses with change and 2+ stable chronic illnesses Risk: Moderate: Drug management Medical Decision Making Level: 4 - Moderate Sue Weber MD The documentation for this note was completed by Andreina Caicedo Ma acting as scribe for Sue Weber MD. November 26, 2021 11:46 AM. Andreina Caicedo Ma documented in this encounterMercy [facility]07-05-2022 Miscellaneous Notes* Telephone Encounter - Geeta Milton RN - 11/26/2021 10:29 AM EDT Pt called in and reports she locked her keys in her car. She was trying to switch to a later appointment, but provider has none. Pt states she is going to try and find a ride instead of trying to getsomeone to get her keys out. Providers MA notified. documented in this encounterMercy Health [facility]06-27-2022 History of Present illness Narrative* Naila Hernandez APRN.CLERICAL SUPERVISOR - 11/18/2021 3:27 PM EDT Chief Complaint Patient presents with: Sinus Problem: started a couple weeks ago low grade fever nothing over 100, sneezing,pressure behind eyes HPI Payton Mcqueen is a 56 year old female who presents here today for Above Complaints.. Payton is an established patient of Dr. Tia MD. Payton is a new patient to me today. Concerns today.. Sinus pain: X a couple of weeks. Started as cold-like symptoms -- runny nose and congestion. These have since resolved. Only remaining symptoms is frontal sinus pressure and mild post nasal drip. Blowing nose the other day and noticed mild blood in nasal drainage. Denies any cough. Some chills at night. No congestion. Recently had burst of energy - feels like energizer bunny. Would like thyroid panel done. Ordered on 11/05/21 -- will get done today. Also reports sleep disturbances at night like she can't turn off her brain. Anxiety no worse than baseline per pt. Has been losing weight, intentionally, over the past few months. BP elevated. Pt reports extremely anxious about coming to providers office and meeting new provider. Repeat BP 160/68. BP readings at home remain around 130s as systolic. Last 14 Encounter BP Readings: Date: BP: 11/18/2021 160/64 07/28/2021 152/86 05/27/2021 132/82 02/18/2021 166/86 02/04/2021 156/86 01/21/2021 142/76 01/14/2021 148/80 12/26/2020 128/72 10/18/2020 142/82 07/25/2020 172/84 2020 138/80 06/01/2020 153/81 07/14/2019 122/80 05/09/2019 132/82 Past medical history, appointments, medications, allergies reviewed. Previous Medical History PAST MEDICAL HISTORY Diagnosis Date Acute gastritis without mention of hemorrhage Anxiety Benign neoplasm of stomach Cervical disc disorder with radiculopathy 02/18/2010 Cyst of ovary 01/01/2015 [facility] - see scanned documents Depressive disorder, not elsewhere classified Essential thrombocythemia (HCC) 06/02/2016 GERD (gastroesophageal reflux disease) Hypertension 08/28/11 IC (interstitial cystitis) Impaired fasting glucose 04/02/2010 Lumbar disc disease with radiculopathy 11/15/2010 Metabolic syndrome X Morbid obesity with BMI of 40.0-44.9, adult (HCC) 08/29/2013 Renal cyst, left 07/03/2016 18 mm, 06/18/16 Sciatica SI (sacroiliac) joint dysfunction 06/04/2011 Thoracolumbar back pain 07/20/2013 Unspecified hypothyroidism Urinary calculus, unspecified Renal stones Previous Surgical History PAST SURGICAL HISTORY Procedure Laterality Date CHOLECYSTECTOMY 1991 Cholecystectomy CYSTOSCOPY,DIL BLADDER,LOCAL ANESTH 01/18/14 EGD TRANSORAL BIOPSY SINGLE/MULTIPLE 04/09/2007 gastritis, gastric polyps KIDNEY SURGERY HX 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 6 weeks Erythromycin GI Upset Lisinopril Unknown Cough, hypotension Metformin GI Upset Prochlorperazine Mental Status Change Agitation, felt ill Toradol [Ketorolac] Vomiting Vesicare [Solifenac* Rash Current Medications Current Outpatient Medications on File Prior to Visit Medication Sig busPIRone (BUSPAR) 15 mg tablet Take 1 tablet by mouth twice daily. levothyroxine (SYNTHROID) 125 mcg tablet TAKE ONE TABLET BY MOUTH EVERY DAY omeprazole (PRILOSEC) 40 mg capsule Take 1 capsule by mouth once daily. buPROPion XL (WELLBUTRIN XL) 300 mg 24 hr tablet Take 1 tablet by mouth once daily. mirabegron (MYRBETRIQ) 50 mg Tb24 Take 1 tablet by mouth once daily. aspirin, enteric coated (ADULT LOW DOSE ASPIRIN) 81 mg EC tablet Take 1 tablet by mouth once daily. SACCHAROMYCES BOULARDII (PROBIOTIC, S.BOULARDII, ORAL) Take by mouth once daily. mupirocin (BACTROBAN) 2 % ointment Apply 1 application to affected area three times daily. No current facility-administered medications on file prior to visit. Social History Social History Tobacco Use Smoking status: Never Smoker Smokeless tobacco: Never Used Vaping Use Vaping Use: Never used Substance Use Topics Alcohol use: Yes Comment: rarely Drug use: No REVIEW OF SYSTEMS: as above Reviewed relevant PMHx, PSHx, Social Hx, current medications and allergies. Review of Symptoms See HPI. All other systems are negative. EXAM: BP 170/64 (BP Site: Left Arm, BP Position: Sitting, BP Cuff Size: Large Adult) Pulse 106 Resp 18 Wt 115.9 kg (255 lb 9.6 oz) LMP 08/09/2018 (Approximate) BMI 43.87 kg/m General Appearance: Well appearing, alert, in no acute distress, well-hydrated, well nourished.. Skin: Skin color, texture, turgor normal, no suspicious rashes or lesions. Head: Normocephalic, no masses, lesions, or abnormalities, Facial tenderness. Eyes: Anicteric sclera. Pupils are equally round and reactive to light. Extraocular movements are intact. . Ears: External ears normal, canals clear. Nose/Sinuses: Nares normal, septum midline, mucosa normal, no drainage. Mild frontal sinus tenderness. Oropharynx: Lips, mucosa, and tongue normal, teeth and gums normal, oropharynx normal and Positive findings: post nasal drip. Neck: Supple, no adenopathy; thyroid symmetric, normal size, no bruits. Lungs: Lungs clear to auscultation. No wheezing, rhonchi, rales.. Heart: RRR without murmur, gallop, or rubs. No ectopy. Neurologic: Gait normal. Reflexes normal and symmetric. Sensation grossly intact.. Health Maintenance List PNEUMOCOCCAL(1 - PCV) Never done HEPATITIS C SCREENING Never done HIV SCREENING Never done COLORECTAL CANCER SCREENING Never done BP CONTROLLED (<130/80) due on 10/10/2018 HPV TESTING due on 04/10/2020 PAP TESTING due on 04/11/2020 COVID-19 VACCINE(3 - Booster for Moderna series) due on 05/19/2021 MAMMOGRAM due on 11/05/2021 DTAP,TDAP,TD(6 - Td or Tdap) due on 11/18/2022 SHINGRIX VACCINE(1 of 2) due on 11/18/2022 INFLUENZA(Season Ended) due on 01/23/2022 ANNUAL PCP TEAM CHRONIC DISEASE VISIT due on 11/18/2022 DEPRESSION SCREENING due on 11/18/2022 DIABETES SCREEN due on 02/05/2024 LIPID SCREEN due on 10/16/2025 ASSESSMENT/PLAN: 1. Acute sinusitis, recurrence not specified, unspecified location - ICD9: 461.9, ICD10: J01.90 (primary diagnosis) - Will begin treatment with Doxycycline d/t intolerance to Augmentin in the past. - The patient should also be given OTC decongestants prn, OTC cough and cold meds as needed, warm salt water gargles, throat lozenges and/or OTC throat spray as needed and nasal saline gtts and suction prn for the first 5-7 days of treatment. - Supportive care with plenty of fluids, rest, and analgesia prn. - Follow up in 3-5 days if symptoms persist or worsen. 2. Hypothyroidism, unspecified type - ICD9: 244.9, ICD10: E03.9 Instructed to have blood work drawn today to see thyroid levels d/t recent symptoms. Concern for elevated T3 and T4 -- may need to lower synthroid dosage depending on results. Note that blood work is not fasting d/t patient not able to return to office. 3. Essential hypertension, benign - ICD9: 401.1, ICD10: I10 Continue to monitor BP as home and let provider know BP readings over the next 2-3 weeks. Declined nurse visit d/t known cause of anxiousness. Will re-evaluate once acute infection resolved. RTO as needed if symptoms worsen or do not resolve. Prescription instructions reviewed with patient as applicable. Potential red flag symptoms discussed with the patient. Reviewed appropriate action plan to take if red flag symptoms occur. Patient agreeable to treatment plan. Naila Hernandez APRN.CLERICAL SUPERVISOR [id number] [place] [address] documented in this encounter[facility] Miscellaneous Notes* Telephone Encounter - Sue Weber MD - 10/22/2021 4:06 PM EDT OK to refill as ordered Sue Weber MD * Telephone Encounter - Jovi Florian LPN - 10/22/2021 3:58 PM EDT Patient phones requesting refills as follows: Pending Prescriptions Disp Refills BUSPIRONE 15 MG TABLET 180 tablet 0 Sig: Take 1 tablet by mouth twice daily. WENDY: No GIFTY 07/02/21 NOV no upcoming appt Please review and advise. Jovi Florian LPN documented in this encounterMer[facility]04-18-2022 Miscellaneous Notes* Telephone Encounter - Burke Snider APRN.BUD - 09/09/2021 6:41 AM EDT The following approved medication requests have been transmitted electronically. Pending Prescriptions Disp Refills BUSPIRONE 15 MG TABLET 180 tablet 0 Sig: TAKE ONE TABLET BY MOUTH TWICE A DAY WENDY: Yes Burke Snider APRN.CNP * Telephone Encounter - Destiney Lopez LPN - 09/07/2021 8:29 AM EDT Patient has been identified by name and date of : Yes Pending Prescriptions Disp Refills BUSPIRONE 15 MG TABLET 180 tablet 0 Sig: TAKE ONE TABLET BY MOUTH TWICE A DAY WENDY: Yes RX INSTRUCTIONS: Pharmacy initiated this request. No need to notify patient. Patient has not had a follow up visit for quite some time no future visit scheduled. Destiney Lopez LPN documented in this encounterMer[facility]03-30-2022 Miscellaneous Notes* Telephone Encounter - Burke Snider APRN.CNP - 08/21/2021 9:24 AM EDT The following approved medication requests have been transmitted electronically. Pending Prescriptions Disp Refills OMEPRAZOLE 40 MG CAPSULE,DELAYED RELEASE 90 capsule 3 Sig: Take 1 capsule by mouth once daily. WENDY: No Burke Snider APRN.CNP * Telephone Encounter - Gloria Varela LPN - 08/21/2021 9:23 AM EDT Patient has been identified by name and date of : Yes Patient phones for refill(s): Pending Prescriptions Disp Refills OMEPRAZOLE 40 MG CAPSULE,DELAYED RELEASE 90 capsule 3 Sig: Take 1 capsule by mouth once daily. WENDY: No Date of last office visit in primary care: 07/02/21 Please advise. Thank you. Gloria Varela LPN documented in this encounterMer[facility]01-19-[facility]21 History of Past illness Narrative* Problem Noted Date Resolved Date Neck pain 06/12/2020 10/18/2020 Primary cancer of left kidney 08/08/2016 Strain of right knee and leg 02/06/201606/2015 Right sided abdominal pain 01/19/201503/26 Unspecified gastritis and ga stroduodenitis without mention of hemorrhage 09/15/2013 03/26/2016 Thoracolumbar back pain 07/20/2013 03/26/20 16 Left renal mass 06/16/2013 03/26/2016 Left shoulder strain 10/29/2012 10/19/2014 Lumbar facet arthropathy 10/17/2011 016 Lumbar spondylosis 10/17/2011 03/26/2016 SI (sacroiliac) joint dysfunction 06/04/2011 03/26/2016 Nonallopathic lesion of sacr al region, not elsewhere classified 02/10/2011 03/26/2016 Piriformis syndrome 01/20/2011 03/26/2016 Lumbar disc disease with radiculopathy 1 03/26/2016 Cervical disc disorder with radiculopathy 200903/26/2016 Brachial neuritis or radiculitis NOS 02/04/2010 03/26/2016 Cervical radiculopathy 01/11/2010 6 Pelvic pain in female 04/25/2009 03/26/2016 Cluster headache syndrome 04/07/20092015 Thoracic or lumbosacral neuritis or radiculitis, unspecified 09/19/2008 03/26/2016 Contusion of chest wall 06/09/2008 03/26/20 16 Acute gastritis without mention of hemorrhage 03/26/2016 Sciatica 06/13/2005 03/26/2016 Greater Trochanteric bursitis right 05/28/2005 03/26/2016 Lumbago 02/06/2005 03/26/2016 documented as of this encounter (statuses as of 08/21/2021) [facility] of Past illness Narrative* Problem Noted Date Resolved Date Neck pain 06/12/2020 10/18/2020 Primary cancer of left kidney 08/08/2016 Strain of right knee and leg 02/06/201606/2015 Right sided abdominal pain 01/19/201503/26 Unspecified gastritis and ga stroduodenitis without mention of hemorrhage 09/15/2013 03/26/2016 Thoracolumbar back pain 07/20/2013 03/26/20 16 Left renal mass 06/16/2013 03/26/2016 Left shoulder strain 10/29/2012 10/19/2014 Lumbar facet arthropathy 10/17/2011 016 Lumbar spondylosis 10/17/2011 03/26/2016 SI (sacroiliac) joint dysfunction 06/04/2011 03/26/2016 Nonallopathic lesion of sacr al region, not elsewhere classified 02/10/2011 03/26/2016 Piriformis syndrome 01/20/2011 03/26/2016 Lumbar disc disease with radiculopathy 1 03/26/2016 Cervical disc disorder with radiculopathy 200903/26/2016 Brachial neuritis or radiculitis NOS 02/04/2010 03/26/2016 Cervical radiculopathy 01/11/2010 6 Pelvic pain in female 04/25/2009 03/26/2016 Cluster headache syndrome 04/07/20092015 Thoracic or lumbosacral neuritis or radiculitis, unspecified 09/19/2008 03/26/2016 Contusion of chest wall 06/09/2008 03/26/20 16 Acute gastritis without mention of hemorrhage 03/26/2016 Sciatica 06/13/2005 03/26/2016 Greater Trochanteric bursitis right 05/28/2005 03/26/2016 Lumbago 02/06/2005 03/26/2016 documented as of this encounter (statuses as of 09/09/2021) [facility] of [facility] illness Narrative* Problem Noted Date Resolved Date Neck pain 06/12/2020 10/18/2020 Primary cancer of left kidney 08/08/2016 Strain of right knee and leg 02/06/201606/2015 Right sided abdominal pain 01/19/201503/26 Unspecified gastritis and ga stroduodenitis without mention of hemorrhage 09/15/2013 03/26/2016 Thoracolumbar back pain 07/20/2013 03/26/20 16 Left renal mass 06/16/2013 03/26/2016 Left shoulder strain 10/29/2012 10/19/2014 Lumbar facet arthropathy 10/17/2011 016 Lumbar spondylosis 10/17/2011 03/26/2016 SI (sacroiliac) joint dysfunction 06/04/2011 03/26/2016 Nonallopathic lesion of sacr al region, not elsewhere classified 02/10/2011 03/26/2016 Piriformis syndrome 01/20/2011 03/26/2016 Lumbar disc disease with radiculopathy 1 03/26/2016 Cervical disc disorder with radiculopathy 200903/26/2016 Brachial neuritis or radiculitis NOS 02/04/2010 03/26/2016 Cervical radiculopathy 01/11/2010 6 Pelvic pain in female 04/25/2009 03/26/2016 Cluster headache syndrome 04/07/20092015 Thoracic or lumbosacral neuritis or radiculitis, unspecified 09/19/2008 03/26/2016 Contusion of chest wall 06/09/2008 03/26/20 16 Acute gastritis without mention of hemorrhage 03/26/2016 Sciatica 06/13/2005 03/26/2016 Greater Trochanteric bursitis right 05/28/2005 03/26/2016 Lumbago 02/06/2005 03/26/2016 documented as of this encounter (statuses as of 10/22/2021) [facility] of [facility] Narrative* Problem Noted Date Resolved Date Neck pain 06/12/2020 10/18/2020 Primary cancer of left kidney 08/08/2016 Strain of right knee and leg 02/06/201606/2015 Right sided abdominal pain 01/19/201503/26 Unspecified gastritis and ga stroduodenitis without mention of hemorrhage 09/15/2013 03/26/2016 Thoracolumbar back pain 07/20/2013 03/26/20 16 Left renal mass 06/16/2013 03/26/2016 Left shoulder strain 10/29/2012 10/19/2014 Lumbar facet arthropathy 10/17/2011 016 Lumbar spondylosis 10/17/2011 03/26/2016 SI (sacroiliac) joint dysfunction 06/04/2011 03/26/2016 Nonallopathic lesion of sacr al region, not elsewhere classified 02/10/2011 03/26/2016 Piriformis syndrome 01/20/2011 03/26/2016 Lumbar disc disease with radiculopathy 1 03/26/2016 Cervical disc disorder with radiculopathy 200903/26/2016 Brachial neuritis or radiculitis NOS 02/04/2010 03/26/2016 Cervical radiculopathy 01/11/2010 6 Pelvic pain in female 04/25/2009 03/26/2016 Cluster headache syndrome 04/07/20092015 Thoracic or lumbosacral neuritis or radiculitis, unspecified 09/19/2008 03/26/2016 Contusion of chest wall 06/09/2008 03/26/20 16 Acute gastritis without mention of hemorrhage 03/26/2016 Sciatica 06/13/2005 03/26/2016 Greater Trochanteric bursitis right 05/28/2005 03/26/2016 Lumbago 02/06/2005 03/26/2016 documented as of this encounter (statuses as of 11/18/2021) [facility] Narrative* Problem Noted Date Resolved Date Neck pain 06/12/2020 10/18/2020 Primary cancer of left kidney 08/08/2016 Strain of right knee and leg 02/06/201606/2015 Right sided abdominal pain 01/19/201503/26 Unspecified gastritis and ga stroduodenitis without mention of hemorrhage 09/15/2013 03/26/2016 Thoracolumbar back pain 07/20/2013 03/26/20 16 Left renal mass 06/16/2013 03/26/2016 Left shoulder strain 10/29/2012 10/19/2014 Lumbar facet arthropathy 10/17/2011 016 Lumbar spondylosis 10/17/2011 03/26/2016 SI (sacroiliac) joint dysfunction 06/04/2011 03/26/2016 Nonallopathic lesion of sacr al region, not elsewhere classified 02/10/2011 03/26/2016 Piriformis syndrome 01/20/2011 03/26/2016 Lumbar disc disease with radiculopathy 1 03/26/2016 Cervical disc disorder with radiculopathy 200903/26/2016 Brachial neuritis or radiculitis NOS 02/04/2010 03/26/2016 Cervical radiculopathy 01/11/2010 6 Pelvic pain in female 04/25/2009 03/26/2016 Cluster headache syndrome 04/07/20092015 Thoracic or lumbosacral neuritis or radiculitis, unspecified 09/19/2008 03/26/2016 Contusion of chest wall 06/09/2008 03/26/20 16 Acute gastritis without mention of hemorrhage 03/26/2016 Sciatica 06/13/2005 03/26/2016 Greater Trochanteric bursitis right 05/28/2005 03/26/2016 Lumbago 02/06/2005 03/26/2016 documented as of this encounter (statuses as of 11/26/2021) [facility] Narrative* Problem Noted Date Resolved Date Neck pain 06/12/2020 10/18/2020 Primary cancer of left kidney 08/08/2016 Strain of right knee and leg 02/06/201606/2015 Right sided abdominal pain 01/19/201503/26 Unspecified gastritis and ga stroduodenitis without mention of hemorrhage 09/15/2013 03/26/2016 Thoracolumbar back pain 07/20/2013 03/26/20 16 Left renal mass 06/16/2013 03/26/2016 Left shoulder strain 10/29/2012 10/19/2014 Lumbar facet arthropathy 10/17/2011 016 Lumbar spondylosis 10/17/2011 03/26/2016 SI (sacroiliac) joint dysfunction 06/04/2011 03/26/2016 Nonallopathic lesion of sacr al region, not elsewhere classified 02/10/2011 03/26/2016 Piriformis syndrome 01/20/2011 03/26/2016 Lumbar disc disease with radiculopathy 1 03/26/2016 Cervical disc disorder with radiculopathy 200903/26/2016 Brachial neuritis or radiculitis NOS 02/04/2010 03/26/2016 Cervical radiculopathy 01/11/2010 6 Pelvic pain in female 04/25/2009 03/26/2016 Cluster headache syndrome 04/07/20092015 Thoracic or lumbosacral neuritis or radiculitis, unspecified 09/19/2008 03/26/2016 Contusion of chest wall 06/09/2008 03/26/20 16 Acute gastritis without mention of hemorrhage 03/26/2016 Sciatica 06/13/2005 03/26/2016 Greater Trochanteric bursitis right 05/28/2005 03/26/2016 Lumbago 02/06/2005 03/26/2016 documented as of this encounter (statuses as of 11/26/2021) [facility] Narrative* Problem Noted Date Resolved Date Neck pain 06/12/2020 10/18/2020 Primary cancer of left kidney 08/08/2016 Strain of right knee and leg 02/06/201606/2015 Right sided abdominal pain 01/19/201503/26 Unspecified gastritis and ga stroduodenitis without mention of hemorrhage 09/15/2013 03/26/2016 Thoracolumbar back pain 07/20/2013 03/26/20 16 Left renal mass 06/16/2013 03/26/2016 Left shoulder strain 10/29/2012 10/19/2014 Lumbar facet arthropathy 10/17/2011 016 Lumbar spondylosis 10/17/2011 03/26/2016 SI (sacroiliac) joint dysfunction 06/04/2011 03/26/2016 Nonallopathic lesion of sacr al region, not elsewhere classified 02/10/2011 03/26/2016 Piriformis syndrome 01/20/2011 03/26/2016 Lumbar disc disease with radiculopathy 1 03/26/2016 Cervical disc disorder with radiculopathy 200903/26/2016 Brachial neuritis or radiculitis NOS 02/04/2010 03/26/2016 Cervical radiculopathy 01/11/2010 6 Pelvic pain in female 04/25/2009 03/26/2016 Cluster headache syndrome 04/07/20092015 Thoracic or lumbosacral neuritis or radiculitis, unspecified 09/19/2008 03/26/2016 Contusion of chest wall 06/09/2008 03/26/20 16 Acute gastritis without mention of hemorrhage 03/26/2016 Sciatica 06/13/2005 03/26/2016 Greater Trochanteric bursitis right 05/28/2005 03/26/2016 Lumbago 02/06/2005 03/26/2016 documented as of this encounter (statuses as of 12/09/2021) [facility] Narrative* Problem Noted Date Resolved Date Neck pain 06/12/2020 10/18/2020 Primary cancer of left kidney 08/08/2016 Strain of right knee and leg 02/06/201606/2015 Right sided abdominal pain 01/19/201503/26 Unspecified gastritis and ga stroduodenitis without mention of hemorrhage 09/15/2013 03/26/2016 Thoracolumbar back pain 07/20/2013 03/26/20 16 Left renal mass 06/16/2013 03/26/2016 Left shoulder strain 10/29/2012 10/19/2014 Lumbar facet arthropathy 10/17/2011 016 Lumbar spondylosis 10/17/2011 03/26/2016 SI (sacroiliac) joint dysfunction 06/04/2011 03/26/2016 Nonallopathic lesion of sacr al region, not elsewhere classified 02/10/2011 03/26/2016 Piriformis syndrome 01/20/2011 03/26/2016 Lumbar disc disease with radiculopathy 1 03/26/2016 Cervical disc disorder with radiculopathy 200903/26/2016 Brachial neuritis or radiculitis NOS 02/04/2010 03/26/2016 Cervical radiculopathy 01/11/2010 6 Pelvic pain in female 04/25/2009 03/26/2016 Cluster headache syndrome 04/07/20092015 Thoracic or lumbosacral neuritis or radiculitis, unspecified 09/19/2008 03/26/2016 Contusion of chest wall 06/09/2008 03/26/20 16 Acute gastritis without mention of hemorrhage 03/26/2016 Sciatica 06/13/2005 03/26/2016 Greater Trochanteric bursitis right 05/28/2005 03/26/2016 Lumbago 02/06/2005 03/26/2016 documented as of this encounter (statuses as of 12/23/2021) [facility] Narrative* Problem Noted Date Resolved Date Neck pain 06/12/2020 10/18/2020 Primary cancer of left kidney 08/08/2016 Strain of right knee and leg 02/06/201606/2015 Right sided abdominal pain 01/19/201503/26 Unspecified gastritis and ga stroduodenitis without mention of hemorrhage 09/15/2013 03/26/2016 Thoracolumbar back pain 07/20/2013 03/26/20 16 Left renal mass 06/16/2013 03/26/2016 Left shoulder strain 10/29/2012 10/19/2014 Lumbar facet arthropathy 10/17/2011 016 Lumbar spondylosis 10/17/2011 03/26/2016 SI (sacroiliac) joint dysfunction 06/04/2011 03/26/2016 Nonallopathic lesion of sacr al region, not elsewhere classified 02/10/2011 03/26/2016 Piriformis syndrome 01/20/2011 03/26/2016 Lumbar disc disease with radiculopathy 1 03/26/2016 Cervical disc disorder with radiculopathy 200903/26/2016 Brachial neuritis or radiculitis NOS 02/04/2010 03/26/2016 Cervical radiculopathy 01/11/2010 6 Pelvic pain in female 04/25/2009 03/26/2016 Cluster headache syndrome 04/07/20092015 Thoracic or lumbosacral neuritis or radiculitis, unspecified 09/19/2008 03/26/2016 Contusion of chest wall 06/09/2008 03/26/20 16 Acute gastritis without mention of hemorrhage 03/26/2016 Sciatica 06/13/2005 03/26/2016 Greater Trochanteric bursitis right 05/28/2005 03/26/2016 Lumbago 02/06/2005 03/26/2016 documented as of this encounter (statuses as of 12/24/2021) [facility] Narrative* Problem Noted Date Resolved Date Neck pain 06/12/2020 10/18/2020 Primary cancer of left kidney 08/08/2016 Strain of right knee and leg 02/06/201606/2015 Right sided abdominal pain 01/19/201503/26 Unspecified gastritis and ga stroduodenitis without mention of hemorrhage 09/15/2013 03/26/2016 Thoracolumbar back pain 07/20/2013 03/26/20 16 Left renal mass 06/16/2013 03/26/2016 Left shoulder strain 10/29/2012 10/19/2014 Lumbar facet arthropathy 10/17/2011 016 Lumbar spondylosis 10/17/2011 03/26/2016 SI (sacroiliac) joint dysfunction 06/04/2011 03/26/2016 Nonallopathic lesion of sacr al region, not elsewhere classified 02/10/2011 03/26/2016 Piriformis syndrome 01/20/2011 03/26/2016 Lumbar disc disease with radiculopathy 1 03/26/2016 Cervical disc disorder with radiculopathy 200903/26/2016 Brachial neuritis or radiculitis NOS 02/04/2010 03/26/2016 Cervical radiculopathy 01/11/2010 6 Pelvic pain in female 04/25/2009 03/26/2016 Cluster headache syndrome 04/07/20092015 Thoracic or lumbosacral neuritis or radiculitis, unspecified 09/19/2008 03/26/2016 Contusion of chest wall 06/09/2008 03/26/20 16 Acute gastritis without mention of hemorrhage 03/26/2016 Sciatica 06/13/2005 03/26/2016 Greater Trochanteric bursitis right 05/28/2005 03/26/2016 Lumbago 02/06/2005 03/26/2016 documented as of this encounter (statuses as of 12/26/2021) [facility] Narrative* Problem Noted Date Resolved Date Neck pain 06/12/2020 10/18/2020 Primary cancer of left kidney 08/08/2016 Strain of right knee and leg 02/06/201606/2015 Right sided abdominal pain 01/19/201503/26 Unspecified gastritis and ga stroduodenitis without mention of hemorrhage 09/15/2013 03/26/2016 Thoracolumbar back pain 07/20/2013 03/26/20 16 Left renal mass 06/16/2013 03/26/2016 Left shoulder strain 10/29/2012 10/19/2014 Lumbar facet arthropathy 10/17/2011 016 Lumbar spondylosis 10/17/2011 03/26/2016 SI (sacroiliac) joint dysfunction 06/04/2011 03/26/2016 Nonallopathic lesion of sacr al region, not elsewhere classified 02/10/2011 03/26/2016 Piriformis syndrome 01/20/2011 03/26/2016 Lumbar disc disease with radiculopathy 1 03/26/2016 Cervical disc disorder with radiculopathy 200903/26/2016 Brachial neuritis or radiculitis NOS 02/04/2010 03/26/2016 Cervical radiculopathy 01/11/2010 6 Pelvic pain in female 04/25/2009 03/26/2016 Cluster headache syndrome 04/07/20092015 Thoracic or lumbosacral neuritis or radiculitis, unspecified 09/19/2008 03/26/2016 Contusion of chest wall 06/09/2008 03/26/20 16 Acute gastritis without mention of hemorrhage 03/26/2016 Sciatica 06/13/2005 03/26/2016 Greater Trochanteric bursitis right 05/28/2005 03/26/2016 Lumbago 02/06/2005 03/26/2016 documented as of this encounter (statuses as of 12/30/2021) [facility] Narrative* Problem Noted Date Resolved Date Neck pain 06/12/2020 10/18/2020 Primary cancer of left kidney 08/08/2016 Strain of right knee and leg 02/06/201606/2015 Right sided abdominal pain 01/19/201503/26 Unspecified gastritis and ga stroduodenitis without mention of hemorrhage 09/15/2013 03/26/2016 Thoracolumbar back pain 07/20/2013 03/26/20 16 Left renal mass 06/16/2013 03/26/2016 Left shoulder strain 10/29/2012 10/19/2014 Lumbar facet arthropathy 10/17/2011 016 Lumbar spondylosis 10/17/2011 03/26/2016 SI (sacroiliac) joint dysfunction 06/04/2011 03/26/2016 Nonallopathic lesion of sacr al region, not elsewhere classified 02/10/2011 03/26/2016 Piriformis syndrome 01/20/2011 03/26/2016 Lumbar disc disease with radiculopathy 1 03/26/2016 Cervical disc disorder with radiculopathy 200903/26/2016 Brachial neuritis or radiculitis NOS 02/04/2010 03/26/2016 Cervical radiculopathy 01/11/2010 6 Pelvic pain in female 04/25/2009 03/26/2016 Cluster headache syndrome 04/07/20092015 Thoracic or lumbosacral neuritis or radiculitis, unspecified 09/19/2008 03/26/2016 Contusion of chest wall 06/09/2008 03/26/20 16 Acute gastritis without mention of hemorrhage 03/26/2016 Sciatica 06/13/2005 03/26/2016 Greater Trochanteric bursitis right 05/28/2005 03/26/2016 Lumbago 02/06/2005 03/26/2016 documented as of this encounter (statuses as of 01/03/2022) [facility] Narrative* Problem Noted Date Resolved Date Neck pain 06/12/2020 10/18/2020 Primary cancer of left kidney 08/08/2016 Strain of right knee and leg 02/06/201606/2015 Right sided abdominal pain 01/19/201503/26 Unspecified gastritis and ga stroduodenitis without mention of hemorrhage 09/15/2013 03/26/2016 Thoracolumbar back pain 07/20/2013 03/26/20 16 Left renal mass 06/16/2013 03/26/2016 Left shoulder strain 10/29/2012 10/19/2014 Lumbar facet arthropathy 10/17/2011 016 Lumbar spondylosis 10/17/2011 03/26/2016 SI (sacroiliac) joint dysfunction 06/04/2011 03/26/2016 Nonallopathic lesion of sacr al region, not elsewhere classified 02/10/2011 03/26/2016 Piriformis syndrome 01/20/2011 03/26/2016 Lumbar disc disease with radiculopathy 1 03/26/2016 Cervical disc disorder with radiculopathy 200903/26/2016 Brachial neuritis or radiculitis NOS 02/04/2010 03/26/2016 Cervical radiculopathy 01/11/2010 6 Pelvic pain in female 04/25/2009 03/26/2016 Cluster headache syndrome 04/07/20092015 Thoracic or lumbosacral neuritis or radiculitis, unspecified 09/19/2008 03/26/2016 Contusion of chest wall 06/09/2008 03/26/20 16 Acute gastritis without mention of hemorrhage 03/26/2016 Sciatica 06/13/2005 03/26/2016 Greater Trochanteric bursitis right 05/28/2005 03/26/2016 Lumbago 02/06/2005 03/26/2016 documented as of this encounter (statuses as of 01/27/2022) [facility]01-[facility]21 History of Past illness Narrative* Problem Noted Date Resolved Date Neck pain 06/12/2020 10/18/2020 Primary cancer of left kidney 08/08/2016 Strain of right knee and leg 02/06/201606/2015 Right sided abdominal pain 01/19/201503/26 Unspecified gastritis and ga stroduodenitis without mention of hemorrhage 09/15/2013 03/26/2016 Thoracolumbar back pain 07/20/2013 03/26/20 16 Left renal mass 06/16/2013 03/26/2016 Left shoulder strain 10/29/2012 10/19/2014 Lumbar facet arthropathy 10/17/2011 016 Lumbar spondylosis 10/17/2011 03/26/2016 SI (sacroiliac) joint dysfunction 06/04/2011 03/26/2016 Nonallopathic lesion of sacr al region, not elsewhere classified 02/10/2011 03/26/2016 Piriformis syndrome 01/20/2011 03/26/2016 Lumbar disc disease with radiculopathy 1 03/26/2016 Cervical disc disorder with radiculopathy 200903/26/2016 Brachial neuritis or radiculitis NOS 02/04/2010 03/26/2016 Cervical radiculopathy 01/11/2010 6 Pelvic pain in female 04/25/2009 03/26/2016 Cluster headache syndrome 04/07/20092015 Thoracic or lumbosacral neuritis or radiculitis, unspecified 09/19/2008 03/26/2016 Contusion of chest wall 06/09/2008 03/26/20 16 Acute gastritis without mention of hemorrhage 03/26/2016 Sciatica 06/13/2005 03/26/2016 Greater Trochanteric bursitis right 05/28/2005 03/26/2016 Lumbago 02/06/2005 03/26/2016 documented as of this encounter (statuses as of 01/31/2022) [facility] History of Past illness Narrative* Problem Noted Date Resolved Date Neck pain 06/12/2020 10/18/2020 Primary cancer of left kidney 08/08/2016 Strain of right knee and leg 02/06/201606/2015 Right sided abdominal pain 01/19/201503/26 Unspecified gastritis and ga stroduodenitis without mention of hemorrhage 09/15/2013 03/26/2016 Thoracolumbar back pain 07/20/2013 03/26/20 16 Left renal mass 06/16/2013 03/26/2016 Left shoulder strain 10/29/2012 10/19/2014 Lumbar facet arthropathy 10/17/2011 016 Lumbar spondylosis 10/17/2011 03/26/2016 SI (sacroiliac) joint dysfunction 06/04/2011 03/26/2016 Nonallopathic lesion of sacr al region, not elsewhere classified 02/10/2011 03/26/2016 Piriformis syndrome 01/20/2011 03/26/2016 Lumbar disc disease with radiculopathy 1 03/26/2016 Cervical disc disorder with radiculopathy 200903/26/2016 Brachial neuritis or radiculitis NOS 02/04/2010 03/26/2016 Cervical radiculopathy 01/11/2010 6 Pelvic pain in female 04/25/2009 03/26/2016 Cluster headache syndrome 04/07/20092015 Thoracic or lumbosacral neuritis or radiculitis, unspecified 09/19/2008 03/26/2016 Contusion of chest wall 06/09/2008 03/26/20 16 Acute gastritis without mention of hemorrhage 03/26/2016 Sciatica 06/13/2005 03/26/2016 Greater Trochanteric bursitis right 05/28/2005 03/26/2016 Lumbago 02/06/2005 03/26/2016 documented as of this encounter (statuses as of 02/21/2022) [facility] History of Past illness Narrative* Problem Noted Date Resolved Date Neck pain 06/12/2020 10/18/2020 Primary cancer of left kidney 08/08/2016 Strain of right knee and leg 02/06/201606/2015 Right sided abdominal pain 01/19/201503/26 Unspecified gastritis and ga stroduodenitis without mention of hemorrhage 09/15/2013 03/26/2016 Thoracolumbar back pain 07/20/2013 03/26/20 16 Left renal mass 06/16/2013 03/26/2016 Left shoulder strain 10/29/2012 10/19/2014 Lumbar facet arthropathy 10/17/2011 016 Lumbar spondylosis 10/17/2011 03/26/2016 SI (sacroiliac) joint dysfunction 06/04/2011 03/26/2016 Nonallopathic lesion of sacr al region, not elsewhere classified 02/10/2011 03/26/2016 Piriformis syndrome 01/20/2011 03/26/2016 Lumbar disc disease with radiculopathy 1 03/26/2016 Cervical disc disorder with radiculopathy 200903/26/2016 Brachial neuritis or radiculitis NOS 02/04/2010 03/26/2016 Cervical radiculopathy 01/11/2010 6 Pelvic pain in female 04/25/2009 03/26/2016 Cluster headache syndrome 04/07/20092015 Thoracic or lumbosacral neuritis or radiculitis, unspecified 09/19/2008 03/26/2016 Contusion of chest wall 06/09/2008 03/26/20 16 Acute gastritis without mention of hemorrhage 03/26/2016 Sciatica 06/13/2005 03/26/2016 Greater Trochanteric bursitis right 05/28/2005 03/26/2016 Lumbago 02/06/2005 03/26/2016 documented as of this encounter (statuses as of 03/17/2022) [facility] History of Past illness Narrative* Problem Noted Date Resolved Date Neck pain 06/12/2020 10/18/2020 Primary cancer of left kidney 08/08/2016 Strain of right knee and leg 02/06/201606/2015 Right sided abdominal pain 01/19/201503/26 Unspecified gastritis and ga stroduodenitis without mention of hemorrhage 09/15/2013 03/26/2016 Thoracolumbar back pain 07/20/2013 03/26/20 16 Left renal mass 06/16/2013 03/26/2016 Left shoulder strain 10/29/2012 10/19/2014 Lumbar facet arthropathy 10/17/2011 016 Lumbar spondylosis 10/17/2011 03/26/2016 SI (sacroiliac) joint dysfunction 06/04/2011 03/26/2016 Nonallopathic lesion of sacr al region, not elsewhere classified 02/10/2011 03/26/2016 Piriformis syndrome 01/20/2011 03/26/2016 Lumbar disc disease with radiculopathy 1 03/26/2016 Cervical disc disorder with radiculopathy 200903/26/2016 Brachial neuritis or radiculitis NOS 02/04/2010 03/26/2016 Cervical radiculopathy 01/11/2010 6 Pelvic pain in female 04/25/2009 03/26/2016 Cluster headache syndrome 04/07/20092015 Thoracic or lumbosacral neuritis or radiculitis, unspecified 09/19/2008 03/26/2016 Contusion of chest wall 06/09/2008 03/26/20 16 Acute gastritis without mention of hemorrhage 03/26/2016 Sciatica 06/13/2005 03/26/2016 Greater Trochanteric bursitis right 05/28/2005 03/26/2016 Lumbago 02/06/2005 03/26/2016 documented as of this encounter (statuses as of 03/30/2022) [facility] History of Past illness Narrative* Problem Noted Date Resolved Date Neck pain 06/12/2020 10/18/2020 Primary cancer of left kidney 08/08/2016 Strain of right knee and leg 02/06/201606/2015 Right sided abdominal pain 01/19/201503/26 Unspecified gastritis and ga stroduodenitis without mention of hemorrhage 09/15/2013 03/26/2016 Thoracolumbar back pain 07/20/2013 03/26/20 16 Left renal mass 06/16/2013 03/26/2016 Left shoulder strain 10/29/2012 10/19/2014 Lumbar facet arthropathy 10/17/2011 016 Lumbar spondylosis 10/17/2011 03/26/2016 SI (sacroiliac) joint dysfunction 06/04/2011 03/26/2016 Nonallopathic lesion of sacr al region, not elsewhere classified 02/10/2011 03/26/2016 Piriformis syndrome 01/20/2011 03/26/2016 Lumbar disc disease with radiculopathy 1 03/26/2016 Cervical disc disorder with radiculopathy 200903/26/2016 Brachial neuritis or radiculitis NOS 02/04/2010 03/26/2016 Cervical radiculopathy 01/11/2010 6 Pelvic pain in female 04/25/2009 03/26/2016 Cluster headache syndrome 04/07/20092015 Thoracic or lumbosacral neuritis or radiculitis, unspecified 09/19/2008 03/26/2016 Contusion of chest wall 06/09/2008 03/26/20 16 Acute gastritis without mention of hemorrhage 03/26/2016 Sciatica 06/13/2005 03/26/2016 Greater Trochanteric bursitis right 05/28/2005 03/26/2016 Lumbago 02/06/2005 03/26/2016 documented as of this encounter (statuses as of 03/31/2022) [facility] History of Past illness Narrative* Problem Noted Date Resolved Date Neck pain 06/12/2020 10/18/2020 Primary cancer of left kidney 08/08/2016 Strain of right knee and leg 02/06/201606/2015 Right sided abdominal pain 01/19/201503/26 Unspecified gastritis and ga stroduodenitis without mention of hemorrhage 09/15/2013 03/26/2016 Thoracolumbar back pain 07/20/2013 03/26/20 16 Left renal mass 06/16/2013 03/26/2016 Left shoulder strain 10/29/2012 10/19/2014 Lumbar facet arthropathy 10/17/2011 016 Lumbar spondylosis 10/17/2011 03/26/2016 SI (sacroiliac) joint dysfunction 06/04/2011 03/26/2016 Nonallopathic lesion of sacr al region, not elsewhere classified 02/10/2011 03/26/2016 Piriformis syndrome 01/20/2011 03/26/2016 Lumbar disc disease with radiculopathy 1 03/26/2016 Cervical disc disorder with radiculopathy 200903/26/2016 Brachial neuritis or radiculitis NOS 02/04/2010 03/26/2016 Cervical radiculopathy 01/11/2010 6 Pelvic pain in female 04/25/2009 03/26/2016 Cluster headache syndrome 04/07/20092015 Thoracic or lumbosacral neuritis or radiculitis, unspecified 09/19/2008 03/26/2016 Contusion of chest wall 06/09/2008 03/26/20 16 Acute gastritis without mention of hemorrhage 03/26/2016 Sciatica 06/13/2005 03/26/2016 Greater Trochanteric bursitis right 05/28/2005 03/26/2016 Lumbago 02/06/2005 03/26/2016 documented as of this encounter (statuses as of 04/02/2022) [facility] History of Past illness Narrative* Problem Noted Date Resolved Date Neck pain 06/12/2020 10/18/2020 Primary cancer of left kidney 08/08/2016 Strain of right knee and leg 02/06/201606/2015 Right sided abdominal pain 01/19/201503/26 Unspecified gastritis and ga stroduodenitis without mention of hemorrhage 09/15/2013 03/26/2016 Thoracolumbar back pain 07/20/2013 03/26/20 16 Left renal mass 06/16/2013 03/26/2016 Left shoulder strain 10/29/2012 10/19/2014 Lumbar facet arthropathy 10/17/2011 016 Lumbar spondylosis 10/17/2011 03/26/2016 SI (sacroiliac) joint dysfunction 06/04/2011 03/26/2016 Nonallopathic lesion of sacr al region, not elsewhere classified 02/10/2011 03/26/2016 Piriformis syndrome 01/20/2011 03/26/2016 Lumbar disc disease with radiculopathy 1 03/26/2016 Cervical disc disorder with radiculopathy 200903/26/2016 Brachial neuritis or radiculitis NOS 02/04/2010 03/26/2016 Cervical radiculopathy 01/11/2010 6 Pelvic pain in female 04/25/2009 03/26/2016 Cluster headache syndrome 04/07/20092015 Thoracic or lumbosacral neuritis or radiculitis, unspecified 09/19/2008 03/26/2016 Contusion of chest wall 06/09/2008 03/26/20 16 Acute gastritis without mention of hemorrhage 03/26/2016 Sciatica 06/13/2005 03/26/2016 Greater Trochanteric bursitis right 05/28/2005 03/26/2016 Lumbago 02/06/2005 03/26/2016 documented as of this encounter (statuses as of 04/02/2022) [facility] History of Past illness Narrative* Problem Noted Date Resolved Date Neck pain 06/12/2020 10/18/2020 Primary cancer of left kidney 08/08/2016 Strain of right knee and leg 02/06/201606/2015 Right sided abdominal pain 01/19/201503/26 Unspecified gastritis and ga stroduodenitis without mention of hemorrhage 09/15/2013 03/26/2016 Thoracolumbar back pain 07/20/2013 03/26/20 16 Left renal mass 06/16/2013 03/26/2016 Left shoulder strain 10/29/2012 10/19/2014 Lumbar facet arthropathy 10/17/2011 016 Lumbar spondylosis 10/17/2011 03/26/2016 SI (sacroiliac) joint dysfunction 06/04/2011 03/26/2016 Nonallopathic lesion of sacr al region, not elsewhere classified 02/10/2011 03/26/2016 Piriformis syndrome 01/20/2011 03/26/2016 Lumbar disc disease with radiculopathy 1 03/26/2016 Cervical disc disorder with radiculopathy 200903/26/2016 Brachial neuritis or radiculitis NOS 02/04/2010 03/26/2016 Cervical radiculopathy 01/11/2010 6 Pelvic pain in female 04/25/2009 03/26/2016 Cluster headache syndrome 04/07/20092015 Thoracic or lumbosacral neuritis or radiculitis, unspecified 09/19/2008 03/26/2016 Contusion of chest wall 06/09/2008 03/26/20 16 Acute gastritis without mention of hemorrhage 03/26/2016 Sciatica 06/13/2005 03/26/2016 Greater Trochanteric bursitis right 05/28/2005 03/26/2016 Lumbago 02/06/2005 03/26/2016 documented as of this encounter (statuses as of 05/26/2022) [facility] History of Past illness Narrative* Problem Noted Date Resolved Date Neck pain 06/12/2020 10/18/2020 Primary cancer of left kidney 08/08/2016 Strain of right knee and leg 02/06/201606/2015 Right sided abdominal pain 01/19/201503/26 Unspecified gastritis and ga stroduodenitis without mention of hemorrhage 09/15/2013 03/26/2016 Thoracolumbar back pain 07/20/2013 03/26/20 16 Left renal mass 06/16/2013 03/26/2016 Left shoulder strain 10/29/2012 10/19/2014 Lumbar facet arthropathy 10/17/2011 016 Lumbar spondylosis 10/17/2011 03/26/2016 SI (sacroiliac) joint dysfunction 06/04/2011 03/26/2016 Nonallopathic lesion of sacr al region, not elsewhere classified 02/10/2011 03/26/2016 Piriformis syndrome 01/20/2011 03/26/2016 Lumbar disc disease with radiculopathy 1 03/26/2016 Cervical disc disorder with radiculopathy 200903/26/2016 Brachial neuritis or radiculitis NOS 02/04/2010 03/26/2016 Cervical radiculopathy 01/11/2010 6 Pelvic pain in female 04/25/2009 03/26/2016 Cluster headache syndrome 04/07/20092015 Thoracic or lumbosacral neuritis or radiculitis, unspecified 09/19/2008 03/26/2016 Contusion of chest wall 06/09/2008 03/26/20 16 Acute gastritis without mention of hemorrhage 03/26/2016 Sciatica 06/13/2005 03/26/2016 Greater Trochanteric bursitis right 05/28/2005 03/26/2016 Lumbago 02/06/2005 03/26/2016 documented as of this encounter (statuses as of 07/02/2022) [facility] History of Past illness Narrative* Problem Noted Date Resolved Date Neck pain 06/12/2020 10/18/2020 Primary cancer of left kidney 08/08/2016 Strain of right knee and leg 02/06/201606/2015 Right sided abdominal pain 01/19/201503/26 Unspecified gastritis and ga stroduodenitis without mention of hemorrhage 09/15/2013 03/26/2016 Thoracolumbar back pain 07/20/2013 03/26/20 16 Left renal mass 06/16/2013 03/26/2016 Left shoulder strain 10/29/2012 10/19/2014 Lumbar facet arthropathy 10/17/2011 016 Lumbar spondylosis 10/17/2011 03/26/2016 SI (sacroiliac) joint dysfunction 06/04/2011 03/26/2016 Nonallopathic lesion of sacr al region, not elsewhere classified 02/10/2011 03/26/2016 Piriformis syndrome 01/20/2011 03/26/2016 Lumbar disc disease with radiculopathy 1 03/26/2016 Cervical disc disorder with radiculopathy 200903/26/2016 Brachial neuritis or radiculitis NOS 02/04/2010 03/26/2016 Cervical radiculopathy 01/11/2010 6 Pelvic pain in female 04/25/2009 03/26/2016 Cluster headache syndrome 04/07/20092015 Thoracic or lumbosacral neuritis or radiculitis, unspecified 09/19/2008 03/26/2016 Contusion of chest wall 06/09/2008 03/26/20 16 Acute gastritis without mention of hemorrhage 03/26/2016 Sciatica 06/13/2005 03/26/2016 Greater Trochanteric bursitis right 05/28/2005 03/26/2016 Lumbago 02/06/2005 03/26/2016 documented as of this encounter (statuses as of 07/04/2022) [facility] History of Past illness Narrative* Problem Noted Date Resolved Date Neck pain 06/12/2020 10/18/2020 Primary cancer of left kidney 08/08/2016 Strain of right knee and leg 02/06/201606/2015 Right sided abdominal pain 01/19/201503/26 Unspecified gastritis and ga stroduodenitis without mention of hemorrhage 09/15/2013 03/26/2016 Thoracolumbar back pain 07/20/2013 03/26/20 16 Left renal mass 06/16/2013 03/26/2016 Left shoulder strain 10/29/2012 10/19/2014 Lumbar facet arthropathy 10/17/2011 016 Lumbar spondylosis 10/17/2011 03/26/2016 SI (sacroiliac) joint dysfunction 06/04/2011 03/26/2016 Nonallopathic lesion of sacr al region, not elsewhere classified 02/10/2011 03/26/2016 Piriformis syndrome 01/20/2011 03/26/2016 Lumbar disc disease with radiculopathy 1 03/26/2016 Cervical disc disorder with radiculopathy 200903/26/2016 Brachial neuritis or radiculitis NOS 02/04/2010 03/26/2016 Cervical radiculopathy 01/11/2010 6 Pelvic pain in female 04/25/2009 03/26/2016 Cluster headache syndrome 04/07/20092015 Thoracic or lumbosacral neuritis or radiculitis, unspecified 09/19/2008 03/26/2016 Contusion of chest wall 06/09/2008 03/26/20 16 Acute gastritis without mention of hemorrhage 03/26/2016 Sciatica 06/13/2005 03/26/2016 Greater Trochanteric bursitis right 05/28/2005 03/26/2016 Lumbago 02/06/2005 03/26/2016 documented as of this encounter (statuses as of 07/15/2022) [facility] History of Past illness Narrative* Problem Noted Date Resolved Date Neck pain 06/12/2020 10/18/2020 Primary cancer of left kidney 08/08/2016 Strain of right knee and leg 02/06/201606/2015 Right sided abdominal pain 01/19/201503/26 Unspecified gastritis and ga stroduodenitis without mention of hemorrhage 09/15/2013 03/26/2016 Thoracolumbar back pain 07/20/2013 03/26/20 16 Left renal mass 06/16/2013 03/26/2016 Left shoulder strain 10/29/2012 10/19/2014 Lumbar facet arthropathy 10/17/2011 016 Lumbar spondylosis 10/17/2011 03/26/2016 SI (sacroiliac) joint dysfunction 06/04/2011 03/26/2016 Nonallopathic lesion of sacr al region, not elsewhere classified 02/10/2011 03/26/2016 Piriformis syndrome 01/20/2011 03/26/2016 Lumbar disc disease with radiculopathy 1 03/26/2016 Cervical disc disorder with radiculopathy 200903/26/2016 Brachial neuritis or radiculitis NOS 02/04/2010 03/26/2016 Cervical radiculopathy 01/11/2010 6 Pelvic pain in female 04/25/2009 03/26/2016 Cluster headache syndrome 04/07/20092015 Thoracic or lumbosacral neuritis or radiculitis, unspecified 09/19/2008 03/26/2016 Contusion of chest wall 06/09/2008 03/26/20 16 Acute gastritis without mention of hemorrhage 03/26/2016 Sciatica 06/13/2005 03/26/2016 Greater Trochanteric bursitis right 05/28/2005 03/26/2016 Lumbago 02/06/2005 03/26/2016 documented as of this encounter (statuses as of 07/22/2022) [facility] History of Past illness Narrative* Problem Noted Date Resolved Date Neck pain 06/12/2020 10/18/2020 Primary cancer of left kidney 08/08/2016 Strain of right knee and leg 02/06/201606/2015 Right sided abdominal pain 01/19/201503/26 Unspecified gastritis and ga stroduodenitis without mention of hemorrhage 09/15/2013 03/26/2016 Thoracolumbar back pain 07/20/2013 03/26/20 16 Left renal mass 06/16/2013 03/26/2016 Left shoulder strain 10/29/2012 10/19/2014 Lumbar facet arthropathy 10/17/2011 016 Lumbar spondylosis 10/17/2011 03/26/2016 SI (sacroiliac) joint dysfunction 06/04/2011 03/26/2016 Nonallopathic lesion of sacr al region, not elsewhere classified 02/10/2011 03/26/2016 Piriformis syndrome 01/20/2011 03/26/2016 Lumbar disc disease with radiculopathy 1 03/26/2016 Cervical disc disorder with radiculopathy 200903/26/2016 Brachial neuritis or radiculitis NOS 02/04/2010 03/26/2016 Cervical radiculopathy 01/11/2010 6 Pelvic pain in female 04/25/2009 03/26/2016 Cluster headache syndrome 04/07/20092015 Thoracic or lumbosacral neuritis or radiculitis, unspecified 09/19/2008 03/26/2016 Contusion of chest wall 06/09/2008 03/26/20 16 Acute gastritis without mention of hemorrhage 03/26/2016 Sciatica 06/13/2005 03/26/2016 Greater Trochanteric bursitis right 05/28/2005 03/26/2016 Lumbago 02/06/2005 03/26/2016 documented as of this encounter (statuses as of 07/23/2022) [facility] History of Past illness Narrative* Problem Noted Date Resolved Date Neck pain 06/12/2020 10/18/2020 Primary cancer of left kidney 08/08/2016 Strain of right knee and leg 02/06/201606/2015 Right sided abdominal pain 01/19/201503/26 Unspecified gastritis and ga stroduodenitis without mention of hemorrhage 09/15/2013 03/26/2016 Thoracolumbar back pain 07/20/2013 03/26/20 16 Left renal mass 06/16/2013 03/26/2016 Left shoulder strain 10/29/2012 10/19/2014 Lumbar facet arthropathy 10/17/2011 016 Lumbar spondylosis 10/17/2011 03/26/2016 SI (sacroiliac) joint dysfunction 06/04/2011 03/26/2016 Nonallopathic lesion of sacr al region, not elsewhere classified 02/10/2011 03/26/2016 Piriformis syndrome 01/20/2011 03/26/2016 Lumbar disc disease with radiculopathy 1 03/26/2016 Cervical disc disorder with radiculopathy 200903/26/2016 Brachial neuritis or radiculitis NOS 02/04/2010 03/26/2016 Cervical radiculopathy 01/11/2010 6 Pelvic pain in female 04/25/2009 03/26/2016 Cluster headache syndrome 04/07/20092015 Thoracic or lumbosacral neuritis or radiculitis, unspecified 09/19/2008 03/26/2016 Contusion of chest wall 06/09/2008 03/26/20 16 Acute gastritis without mention of hemorrhage 03/26/2016 Sciatica 06/13/2005 03/26/2016 Greater Trochanteric bursitis right 05/28/2005 03/26/2016 Lumbago 02/06/2005 03/26/2016 documented as of this encounter (statuses as of 09/27/2022) [facility] History of Past illness Narrative* Problem Noted Date Resolved Date Neck pain 06/12/2020 10/18/2020 Primary cancer of left kidney 08/08/2016 Strain of right knee and leg 02/06/201606/2015 Right sided abdominal pain 01/19/201503/26 Unspecified gastritis and ga stroduodenitis without mention of hemorrhage 09/15/2013 03/26/2016 Thoracolumbar back pain 07/20/2013 03/26/20 16 Left renal mass 06/16/2013 03/26/2016 Left shoulder strain 10/29/2012 10/19/2014 Lumbar facet arthropathy 10/17/2011 016 Lumbar spondylosis 10/17/2011 03/26/2016 SI (sacroiliac) joint dysfunction 06/04/2011 03/26/2016 Nonallopathic lesion of sacr al region, not elsewhere classified 02/10/2011 03/26/2016 Piriformis syndrome 01/20/2011 03/26/2016 Lumbar disc disease with radiculopathy 1 03/26/2016 Cervical disc disorder with radiculopathy 200903/26/2016 Brachial neuritis or radiculitis NOS 02/04/2010 03/26/2016 Cervical radiculopathy 01/11/2010 6 Pelvic pain in female 04/25/2009 03/26/2016 Cluster headache syndrome 04/07/20092015 Thoracic or lumbosacral neuritis or radiculitis, unspecified 09/19/2008 03/26/2016 Contusion of chest wall 06/09/2008 03/26/20 16 Acute gastritis without mention of hemorrhage 03/26/2016 Sciatica 06/13/2005 03/26/2016 Greater Trochanteric bursitis right 05/28/2005 03/26/2016 Lumbago 02/06/2005 03/26/2016 documented as of this encounter (statuses as of 10/27/2022) [facility] History of Past illness Narrative* Problem Noted Date Resolved Date Neck pain 06/12/2020 10/18/2020 Primary cancer of left kidney 08/08/2016 Strain of right knee and leg 02/06/201606/2015 Right sided abdominal pain 01/19/201503/26 Unspecified gastritis and ga stroduodenitis without mention of hemorrhage 09/15/2013 03/26/2016 Thoracolumbar back pain 07/20/2013 03/26/20 16 Left renal mass 06/16/2013 03/26/2016 Left shoulder strain 10/29/2012 10/19/2014 Lumbar facet arthropathy 10/17/2011 016 Lumbar spondylosis 10/17/2011 03/26/2016 SI (sacroiliac) joint dysfunction 06/04/2011 03/26/2016 Nonallopathic lesion of sacr al region, not elsewhere classified 02/10/2011 03/26/2016 Piriformis syndrome 01/20/2011 03/26/2016 Lumbar disc disease with radiculopathy 1 03/26/2016 Cervical disc disorder with radiculopathy 200903/26/2016 Brachial neuritis or radiculitis NOS 02/04/2010 03/26/2016 Cervical radiculopathy 01/11/2010 6 Pelvic pain in female 04/25/2009 03/26/2016 Cluster headache syndrome 04/07/20092015 Thoracic or lumbosacral neuritis or radiculitis, unspecified 09/19/2008 03/26/2016 Contusion of chest wall 06/09/2008 03/26/20 16 Acute gastritis without mention of hemorrhage 03/26/2016 Sciatica 06/13/2005 03/26/2016 Greater Trochanteric bursitis right 05/28/2005 03/26/2016 Lumbago 02/06/2005 03/26/2016 documented as of this encounter (statuses as of 11/27/2022) [facility] History of Past illness Narrative* Problem Noted Date Diagnosed Date Resolved Date Neck pain 06/12/2020 10/18/2020 Primary cancer of left kidney 08/08/2016 06/04/2018 Strain of right knee and leg 02/06/2016 03/26/2016 Right sided abdominal pain 01/19/2015 1 05/26/2015 Unspecified gastritis and ga stroduodenitis without mention of hemorrhage 09/15/2013 03/26/2016 Thoracolumbar back pain 07/20/201306/2015 Left renal mass 06/16/2013 03/26/2016 Left shoulder strain 10/29/2012 015 Lumbar facet arthropathy 10/17/201106/2015 Lumbar spondylosis 10/17/2011 6 SI (sacroiliac) joint dysfunction 06/04/2011 03/26/2016 Nonallopathic lesion of sacr al region, not elsewhere classified 02/10/2011 03/26/2016 Piriformis syndrome 01/20/2011 03/26/20 16 Lumbar disc disease with radiculopathy 11/15/2010 03/26/2016 Cervical disc disorder with radiculopathy 02/18/2010 03/26/2016 Brachial neuritis or radiculitis NOS 02/04/2010 03/26/2016 Cervical radiculopathy 01/11/201003/26 Pelvic pain in female 04/25/20092015 Cluster headache syndrome 04/07/2009 Thoracic or lumbosacral neur itis or radiculitis, unspecified 09/19/2008 03/26/2016 Contusion of chest wall 06/09/200806/2015 Acute gastritis without mention of hemorrhage 04/09/20 07 03/26/2016 Sciatica 06/13/2005 03/26/2016 Greater Trochanteric bursitis right 05/28/2005 03/26/2016 Lumbago 02/06/2005 03/26/2016 documented as of this encounter (statuses as of 12/23/2022) [facility]01-[facility]21 History of Past illness Narrative* Problem Noted Date Diagnosed Date Resolved Date Neck pain 06/12/2020 10/18/2020 Primary cancer of left kidney 08/08/2016 06/04/2018 Strain of right knee and leg 02/06/2016 03/26/2016 Right sided abdominal pain 01/19/2015 1 05/26/2015 Unspecified gastritis and ga stroduodenitis without mention of hemorrhage 09/15/2013 03/26/2016 Thoracolumbar back pain 07/20/201306/2015 Left renal mass 06/16/2013 03/26/2016 Left shoulder strain 10/29/2012 015 Lumbar facet arthropathy 10/17/201106/2015 Lumbar spondylosis 10/17/2011 6 SI (sacroiliac) joint dysfunction 06/04/2011 03/26/2016 Nonallopathic lesion of sacr al region, not elsewhere classified 02/10/2011 03/26/2016 Piriformis syndrome 01/20/2011 03/26/20 16 Lumbar disc disease with radiculopathy 11/15/2010 03/26/2016 Cervical disc disorder with radiculopathy 02/18/2010 03/26/2016 Brachial neuritis or radiculitis NOS 02/04/2010 03/26/2016 Cervical radiculopathy 01/11/201003/26 Pelvic pain in female 04/25/20092015 Cluster headache syndrome 04/07/2009 Thoracic or lumbosacral neur itis or radiculitis, unspecified 09/19/2008 03/26/2016 Contusion of chest wall 06/09/200806/2015 Acute gastritis without mention of hemorrhage 04/09/20 07 03/26/2016 Sciatica 06/13/2005 03/26/2016 Greater Trochanteric bursitis right 05/28/2005 03/26/2016 Lumbago 02/06/2005 03/26/2016 documented as of this encounter (statuses as of 12/24/2022) [facility] History of Past illness Narrative* Problem Noted Date Diagnosed Date Resolved Date Neck pain 06/12/2020 10/18/2020 Primary cancer of left kidney 08/08/2016 06/04/2018 Strain of right knee and leg 02/06/2016 03/26/2016 Right sided abdominal pain 01/19/2015 1 05/26/2015 Unspecified gastritis and ga stroduodenitis without mention of hemorrhage 09/15/2013 03/26/2016 Thoracolumbar back pain 07/20/201306/2015 Left renal mass 06/16/2013 03/26/2016 Left shoulder strain 10/29/2012 015 Lumbar facet arthropathy 10/17/201106/2015 Lumbar spondylosis 10/17/2011 6 SI (sacroiliac) joint dysfunction 06/04/2011 03/26/2016 Nonallopathic lesion of sacr al region, not elsewhere classified 02/10/2011 03/26/2016 Piriformis syndrome 01/20/2011 03/26/20 16 Lumbar disc disease with radiculopathy 11/15/2010 03/26/2016 Cervical disc disorder with radiculopathy 02/18/2010 03/26/2016 Brachial neuritis or radiculitis NOS 02/04/2010 03/26/2016 Cervical radiculopathy 01/11/201003/26 Pelvic pain in female 04/25/20092015 Cluster headache syndrome 04/07/2009 Thoracic or lumbosacral neur itis or radiculitis, unspecified 09/19/2008 03/26/2016 Contusion of chest wall 06/09/200806/2015 Acute gastritis without mention of hemorrhage 04/09/20 07 03/26/2016 Sciatica 06/13/2005 03/26/2016 Greater Trochanteric bursitis right 05/28/2005 03/26/2016 Lumbago 02/06/2005 03/26/2016 documented as of this encounter (statuses as of 01/01/2023) [facility] History of Past illness Narrative* Problem Noted Date Diagnosed Date Resolved Date Neck pain 06/12/2020 10/18/2020 Primary cancer of left kidney 08/08/2016 06/04/2018 Strain of right knee and leg 02/06/2016 03/26/2016 Right sided abdominal pain 01/19/2015 1 05/26/2015 Unspecified gastritis and ga stroduodenitis without mention of hemorrhage 09/15/2013 03/26/2016 Thoracolumbar back pain 07/20/201306/2015 Left renal mass 06/16/2013 03/26/2016 Left shoulder strain 10/29/2012 015 Lumbar facet arthropathy 10/17/201106/2015 Lumbar spondylosis 10/17/2011 6 SI (sacroiliac) joint dysfunction 06/04/2011 03/26/2016 Nonallopathic lesion of sacr al region, not elsewhere classified 02/10/2011 03/26/2016 Piriformis syndrome 01/20/2011 03/26/20 16 Lumbar disc disease with radiculopathy 11/15/2010 03/26/2016 Cervical disc disorder with radiculopathy 02/18/2010 03/26/2016 Brachial neuritis or radiculitis NOS 02/04/2010 03/26/2016 Cervical radiculopathy 01/11/201003/26 Pelvic pain in female 04/25/20092015 Cluster headache syndrome 04/07/2009 Thoracic or lumbosacral neur itis or radiculitis, unspecified 09/19/2008 03/26/2016 Contusion of chest wall 06/09/200806/2015 Acute gastritis without mention of hemorrhage 04/09/20 07 03/26/2016 Sciatica 06/13/2005 03/26/2016 Greater Trochanteric bursitis right 05/28/2005 03/26/2016 Lumbago 02/06/2005 03/26/2016 documented as of this encounter (statuses as of 01/08/2023) [facility] History of Past illness Narrative* Problem Noted Date Diagnosed Date Resolved Date Neck pain 06/12/2020 10/18/2020 Primary cancer of left kidney 08/08/2016 06/04/2018 Strain of right knee and leg 02/06/2016 03/26/2016 Right sided abdominal pain 01/19/2015 1 05/26/2015 Unspecified gastritis and ga stroduodenitis without mention of hemorrhage 09/15/2013 03/26/2016 Thoracolumbar back pain 07/20/201306/2015 Left renal mass 06/16/2013 03/26/2016 Left shoulder strain 10/29/2012 015 Lumbar facet arthropathy 10/17/201106/2015 Lumbar spondylosis 10/17/2011 6 SI (sacroiliac) joint dysfunction 06/04/2011 03/26/2016 Nonallopathic lesion of sacr al region, not elsewhere classified 02/10/2011 03/26/2016 Piriformis syndrome 01/20/2011 03/26/20 16 Lumbar disc disease with radiculopathy 11/15/2010 03/26/2016 Cervical disc disorder with radiculopathy 02/18/2010 03/26/2016 Brachial neuritis or radiculitis NOS 02/04/2010 03/26/2016 Cervical radiculopathy 01/11/201003/26 Pelvic pain in female 04/25/20092015 Cluster headache syndrome 04/07/2009 Thoracic or lumbosacral neur itis or radiculitis, unspecified 09/19/2008 03/26/2016 Contusion of chest wall 06/09/200806/2015 Acute gastritis without mention of hemorrhage 04/09/20 07 03/26/2016 Sciatica 06/13/2005 03/26/2016 Greater Trochanteric bursitis right 05/28/2005 03/26/2016 Lumbago 02/06/2005 03/26/2016 documented as of this encounter (statuses as of 01/08/2023) [facility] History of Past illness Narrative* Problem Noted Date Diagnosed Date Resolved Date Neck pain 06/12/2020 10/18/2020 Primary cancer of left kidney 08/08/2016 06/04/2018 Strain of right knee and leg 02/06/2016 03/26/2016 Right sided abdominal pain 01/19/2015 1 05/26/2015 Unspecified gastritis and ga stroduodenitis without mention of hemorrhage 09/15/2013 03/26/2016 Thoracolumbar back pain 07/20/201306/2015 Left renal mass 06/16/2013 03/26/2016 Left shoulder strain 10/29/2012 015 Lumbar facet arthropathy 10/17/201106/2015 Lumbar spondylosis 10/17/2011 6 SI (sacroiliac) joint dysfunction 06/04/2011 03/26/2016 Nonallopathic lesion of sacr al region, not elsewhere classified 02/10/2011 03/26/2016 Piriformis syndrome 01/20/2011 03/26/20 16 Lumbar disc disease with radiculopathy 11/15/2010 03/26/2016 Cervical disc disorder with radiculopathy 02/18/2010 03/26/2016 Brachial neuritis or radiculitis NOS 02/04/2010 03/26/2016 Cervical radiculopathy 01/11/201003/26 Pelvic pain in female 04/25/20092015 Cluster headache syndrome 04/07/2009 Thoracic or lumbosacral neur itis or radiculitis, unspecified 09/19/2008 03/26/2016 Contusion of chest wall 06/09/200806/2015 Acute gastritis without mention of hemorrhage 04/09/20 07 03/26/2016 Sciatica 06/13/2005 03/26/2016 Greater Trochanteric bursitis right 05/28/2005 03/26/2016 Lumbago 02/06/2005 03/26/2016 documented as of this encounter (statuses as of 01/16/2023) [facility] History of Past illness Narrative* Problem Noted Date Diagnosed Date Resolved Date Neck pain 06/12/2020 10/18/2020 Primary cancer of left kidney 08/08/2016 06/04/2018 Strain of right knee and leg 02/06/2016 03/26/2016 Right sided abdominal pain 01/19/2015 1 05/26/2015 Unspecified gastritis and ga stroduodenitis without mention of hemorrhage 09/15/2013 03/26/2016 Thoracolumbar back pain 07/20/201306/2015 Left renal mass 06/16/2013 03/26/2016 Left shoulder strain 10/29/2012 015 Lumbar facet arthropathy 10/17/201106/2015 Lumbar spondylosis 10/17/2011 6 SI (sacroiliac) joint dysfunction 06/04/2011 03/26/2016 Nonallopathic lesion of sacr al region, not elsewhere classified 02/10/2011 03/26/2016 Piriformis syndrome 01/20/2011 03/26/20 16 Lumbar disc disease with radiculopathy 11/15/2010 03/26/2016 Cervical disc disorder with radiculopathy 02/18/2010 03/26/2016 Brachial neuritis or radiculitis NOS 02/04/2010 03/26/2016 Cervical radiculopathy 01/11/201003/26 Pelvic pain in female 04/25/20092015 Cluster headache syndrome 04/07/2009 Thoracic or lumbosacral neur itis or radiculitis, unspecified 09/19/2008 03/26/2016 Contusion of chest wall 06/09/200806/2015 Acute gastritis without mention of hemorrhage 04/09/20 07 03/26/2016 Sciatica 06/13/2005 03/26/2016 Greater Trochanteric bursitis right 05/28/2005 03/26/2016 Lumbago 02/06/2005 03/26/2016 documented as of this encounter (statuses as of 01/17/2023) [facility] History of Past illness Narrative* Problem Noted Date Diagnosed Date Resolved Date Neck pain 06/12/2020 10/18/2020 Primary cancer of left kidney 08/08/2016 06/04/2018 Strain of right knee and leg 02/06/2016 03/26/2016 Right sided abdominal pain 01/19/2015 1 05/26/2015 Unspecified gastritis and ga stroduodenitis without mention of hemorrhage 09/15/2013 03/26/2016 Thoracolumbar back pain 07/20/201306/2015 Left renal mass 06/16/2013 03/26/2016 Left shoulder strain 10/29/2012 015 Lumbar facet arthropathy 10/17/201106/2015 Lumbar spondylosis 10/17/2011 6 SI (sacroiliac) joint dysfunction 06/04/2011 03/26/2016 Nonallopathic lesion of sacr al region, not elsewhere classified 02/10/2011 03/26/2016 Piriformis syndrome 01/20/2011 03/26/20 16 Lumbar disc disease with radiculopathy 11/15/2010 03/26/2016 Cervical disc disorder with radiculopathy 02/18/2010 03/26/2016 Brachial neuritis or radiculitis NOS 02/04/2010 03/26/2016 Cervical radiculopathy 01/11/201003/26 Pelvic pain in female 04/25/20092015 Cluster headache syndrome 04/07/2009 Thoracic or lumbosacral neur itis or radiculitis, unspecified 09/19/2008 03/26/2016 Contusion of chest wall 06/09/200806/2015 Acute gastritis without mention of hemorrhage 04/09/20 07 03/26/2016 Sciatica 06/13/2005 03/26/2016 Greater Trochanteric bursitis right 05/28/2005 03/26/2016 Lumbago 02/06/2005 03/26/2016 documented as of this encounter (statuses as of 01/17/2023) [facility] History of Past illness Narrative* Problem Noted Date Diagnosed Date Resolved Date Neck pain 06/12/2020 10/18/2020 Primary cancer of left kidney 08/08/2016 06/04/2018 Strain of right knee and leg 02/06/2016 03/26/2016 Right sided abdominal pain 01/19/2015 1 05/26/2015 Unspecified gastritis and ga stroduodenitis without mention of hemorrhage 09/15/2013 03/26/2016 Thoracolumbar back pain 07/20/201306/2015 Left renal mass 06/16/2013 03/26/2016 Left shoulder strain 10/29/2012 015 Lumbar facet arthropathy 10/17/201106/2015 Lumbar spondylosis 10/17/2011 6 SI (sacroiliac) joint dysfunction 06/04/2011 03/26/2016 Nonallopathic lesion of sacr al region, not elsewhere classified 02/10/2011 03/26/2016 Piriformis syndrome 01/20/2011 03/26/20 16 Lumbar disc disease with radiculopathy 11/15/2010 03/26/2016 Cervical disc disorder with radiculopathy 02/18/2010 03/26/2016 Brachial neuritis or radiculitis NOS 02/04/2010 03/26/2016 Cervical radiculopathy 01/11/201003/26 Pelvic pain in female 04/25/20092015 Cluster headache syndrome 04/07/2009 Thoracic or lumbosacral neur itis or radiculitis, unspecified 09/19/2008 03/26/2016 Contusion of chest wall 06/09/200806/2015 Acute gastritis without mention of hemorrhage 04/09/20 07 03/26/2016 Sciatica 06/13/2005 03/26/2016 Greater Trochanteric bursitis right 05/28/2005 03/26/2016 Lumbago 02/06/2005 03/26/2016 documented as of this encounter (statuses as of 01/20/2023) [facility] History of Past illness Narrative* Problem Noted Date Diagnosed Date Resolved Date Neck pain 06/12/2020 10/18/2020 Primary cancer of left kidney 08/08/2016 06/04/2018 Strain of right knee and leg 02/06/2016 03/26/2016 Right sided abdominal pain 01/19/2015 1 05/26/2015 Unspecified gastritis and ga stroduodenitis without mention of hemorrhage 09/15/2013 03/26/2016 Thoracolumbar back pain 07/20/201306/2015 Left renal mass 06/16/2013 03/26/2016 Left shoulder strain 10/29/2012 015 Lumbar facet arthropathy 10/17/201106/2015 Lumbar spondylosis 10/17/2011 6 SI (sacroiliac) joint dysfunction 06/04/2011 03/26/2016 Nonallopathic lesion of sacr al region, not elsewhere classified 02/10/2011 03/26/2016 Piriformis syndrome 01/20/2011 03/26/20 16 Lumbar disc disease with radiculopathy 11/15/2010 03/26/2016 Cervical disc disorder with radiculopathy 02/18/2010 03/26/2016 Brachial neuritis or radiculitis NOS 02/04/2010 03/26/2016 Cervical radiculopathy 01/11/201003/26 Pelvic pain in female 04/25/20092015 Cluster headache syndrome 04/07/2009 Thoracic or lumbosacral neur itis or radiculitis, unspecified 09/19/2008 03/26/2016 Contusion of chest wall 06/09/200806/2015 Acute gastritis without mention of hemorrhage 04/09/20 07 03/26/2016 Sciatica 06/13/2005 03/26/2016 Greater Trochanteric bursitis right 05/28/2005 03/26/2016 Lumbago 02/06/2005 03/26/2016 documented as of this encounter (statuses as of 02/11/2023) [facility] History of Past illness Narrative* Problem Noted Date Diagnosed Date Resolved Date Neck pain 06/12/2020 10/18/2020 Primary cancer of left kidney 08/08/2016 06/04/2018 Strain of right knee and leg 02/06/2016 03/26/2016 Right sided abdominal pain 01/19/2015 1 05/26/2015 Unspecified gastritis and ga stroduodenitis without mention of hemorrhage 09/15/2013 03/26/2016 Thoracolumbar back pain 07/20/201306/2015 Left renal mass 06/16/2013 03/26/2016 Left shoulder strain 10/29/2012 015 Lumbar facet arthropathy 10/17/201106/2015 Lumbar spondylosis 10/17/2011 6 SI (sacroiliac) joint dysfunction 06/04/2011 03/26/2016 Nonallopathic lesion of sacr al region, not elsewhere classified 02/10/2011 03/26/2016 Piriformis syndrome 01/20/2011 03/26/20 16 Lumbar disc disease with radiculopathy 11/15/2010 03/26/2016 Cervical disc disorder with radiculopathy 02/18/2010 03/26/2016 Brachial neuritis or radiculitis NOS 02/04/2010 03/26/2016 Cervical radiculopathy 01/11/201003/26 Pelvic pain in female 04/25/20092015 Cluster headache syndrome 04/07/2009 Thoracic or lumbosacral neur itis or radiculitis, unspecified 09/19/2008 03/26/2016 Contusion of chest wall 06/09/200806/2015 Acute gastritis without mention of hemorrhage 04/09/20 07 03/26/2016 Sciatica 06/13/2005 03/26/2016 Greater Trochanteric bursitis right 05/28/2005 03/26/2016 Lumbago 02/06/2005 03/26/2016 documented as of this encounter (statuses as of 02/13/2023) [facility] History of Past illness Narrative* Problem Noted Date Diagnosed Date Resolved Date Neck pain 06/12/2020 10/18/2020 Primary cancer of left kidney 08/08/2016 06/04/2018 Strain of right knee and leg 02/06/2016 03/26/2016 Right sided abdominal pain 01/19/2015 1 05/26/2015 Unspecified gastritis and ga stroduodenitis without mention of hemorrhage 09/15/2013 03/26/2016 Thoracolumbar back pain 07/20/201306/2015 Left renal mass 06/16/2013 03/26/2016 Left shoulder strain 10/29/2012 015 Lumbar facet arthropathy 10/17/201106/2015 Lumbar spondylosis 10/17/2011 6 SI (sacroiliac) joint dysfunction 06/04/2011 03/26/2016 Nonallopathic lesion of sacr al region, not elsewhere classified 02/10/2011 03/26/2016 Piriformis syndrome 01/20/2011 03/26/20 16 Lumbar disc disease with radiculopathy 11/15/2010 03/26/2016 Cervical disc disorder with radiculopathy 02/18/2010 03/26/2016 Brachial neuritis or radiculitis NOS 02/04/2010 03/26/2016 Cervical radiculopathy 01/11/201003/26 Pelvic pain in female 04/25/20092015 Cluster headache syndrome 04/07/2009 Thoracic or lumbosacral neur itis or radiculitis, unspecified 09/19/2008 03/26/2016 Contusion of chest wall 06/09/200806/2015 Acute gastritis without mention of hemorrhage 04/09/20 07 03/26/2016 Sciatica 06/13/2005 03/26/2016 Greater Trochanteric bursitis right 05/28/2005 03/26/2016 Lumbago 02/06/2005 03/26/2016 documented as of this encounter (statuses as of 02/14/2023) [facility] History of Past illness Narrative* Problem Noted Date Diagnosed Date Resolved Date Neck pain 06/12/2020 10/18/2020 Primary cancer of left kidney 08/08/2016 06/04/2018 Strain of right knee and leg 02/06/2016 03/26/2016 Right sided abdominal pain 01/19/2015 1 05/26/2015 Unspecified gastritis and ga stroduodenitis without mention of hemorrhage 09/15/2013 03/26/2016 Thoracolumbar back pain 07/20/201306/2015 Left renal mass 06/16/2013 03/26/2016 Left shoulder strain 10/29/2012 015 Lumbar facet arthropathy 10/17/201106/2015 Lumbar spondylosis 10/17/2011 6 SI (sacroiliac) joint dysfunction 06/04/2011 03/26/2016 Nonallopathic lesion of sacr al region, not elsewhere classified 02/10/2011 03/26/2016 Piriformis syndrome 01/20/2011 03/26/20 16 Lumbar disc disease with radiculopathy 11/15/2010 03/26/2016 Cervical disc disorder with radiculopathy 02/18/2010 03/26/2016 Brachial neuritis or radiculitis NOS 02/04/2010 03/26/2016 Cervical radiculopathy 01/11/201003/26 Pelvic pain in female 04/25/20092015 Cluster headache syndrome 04/07/2009 Thoracic or lumbosacral neur itis or radiculitis, unspecified 09/19/2008 03/26/2016 Contusion of chest wall 06/09/200806/2015 Acute gastritis without mention of hemorrhage 04/09/20 07 03/26/2016 Sciatica 06/13/2005 03/26/2016 Greater Trochanteric bursitis right 05/28/2005 03/26/2016 Lumbago 02/06/2005 03/26/2016 documented as of this encounter (statuses as of 02/18/2023) [facility] History of Past illness Narrative* Problem Noted Date Diagnosed Date Resolved Date Neck pain 06/12/2020 10/18/2020 Primary cancer of left kidney 08/08/2016 06/04/2018 Strain of right knee and leg 02/06/2016 03/26/2016 Right sided abdominal pain 01/19/2015 1 05/26/2015 Unspecified gastritis and ga stroduodenitis without mention of hemorrhage 09/15/2013 03/26/2016 Thoracolumbar back pain 07/20/201306/2015 Left renal mass 06/16/2013 03/26/2016 Left shoulder strain 10/29/2012 015 Lumbar facet arthropathy 10/17/201106/2015 Lumbar spondylosis 10/17/2011 6 SI (sacroiliac) joint dysfunction 06/04/2011 03/26/2016 Nonallopathic lesion of sacr al region, not elsewhere classified 02/10/2011 03/26/2016 Piriformis syndrome 01/20/2011 03/26/20 16 Lumbar disc disease with radiculopathy 11/15/2010 03/26/2016 Cervical disc disorder with radiculopathy 02/18/2010 03/26/2016 Brachial neuritis or radiculitis NOS 02/04/2010 03/26/2016 Cervical radiculopathy 01/11/201003/26 Pelvic pain in female 04/25/20092015 Cluster headache syndrome 04/07/2009 Thoracic or lumbosacral neur itis or radiculitis, unspecified 09/19/2008 03/26/2016 Contusion of chest wall 06/09/200806/2015 Acute gastritis without mention of hemorrhage 04/09/20 07 03/26/2016 Sciatica 06/13/2005 03/26/2016 Greater Trochanteric bursitis right 05/28/2005 03/26/2016 Lumbago 02/06/2005 03/26/2016 documented as of this encounter (statuses as of 02/18/2023) [facility] History of Past illness Narrative* Problem Noted Date Diagnosed Date Resolved Date Neck pain 06/12/2020 10/18/2020 Primary cancer of left kidney 08/08/2016 06/04/2018 Strain of right knee and leg 02/06/2016 03/26/2016 Right sided abdominal pain 01/19/2015 1 05/26/2015 Unspecified gastritis and ga stroduodenitis without mention of hemorrhage 09/15/2013 03/26/2016 Thoracolumbar back pain 07/20/201306/2015 Left renal mass 06/16/2013 03/26/2016 Left shoulder strain 10/29/2012 015 Lumbar facet arthropathy 10/17/201106/2015 Lumbar spondylosis 10/17/2011 6 SI (sacroiliac) joint dysfunction 06/04/2011 03/26/2016 Nonallopathic lesion of sacr al region, not elsewhere classified 02/10/2011 03/26/2016 Piriformis syndrome 01/20/2011 03/26/20 16 Lumbar disc disease with radiculopathy 11/15/2010 03/26/2016 Cervical disc disorder with radiculopathy 02/18/2010 03/26/2016 Brachial neuritis or radiculitis NOS 02/04/2010 03/26/2016 Cervical radiculopathy 01/11/201003/26 Pelvic pain in female 04/25/20092015 Cluster headache syndrome 04/07/2009 Thoracic or lumbosacral neur itis or radiculitis, unspecified 09/19/2008 03/26/2016 Contusion of chest wall 06/09/200806/2015 Acute gastritis without mention of hemorrhage 04/09/20 07 03/26/2016 Sciatica 06/13/2005 03/26/2016 Greater Trochanteric bursitis right 05/28/2005 03/26/2016 Lumbago 02/06/2005 03/26/2016 documented as of this encounter (statuses as of 02/25/2023) [facility] of Past illness Narrative* Problem Noted Date Diagnosed Date Resolved Date Neck pain 06/12/2020 10/18/2020 Primary cancer of left kidney 08/08/2016 06/04/2018 Strain of right knee and leg 02/06/2016 03/26/2016 Right sided abdominal pain 01/19/2015 1 05/26/2015 Unspecified gastritis and ga stroduodenitis without mention of hemorrhage 09/15/2013 03/26/2016 Thoracolumbar back pain 07/20/201306/2015 Left renal mass 06/16/2013 03/26/2016 Left shoulder strain 10/29/2012 015 Lumbar facet arthropathy 10/17/201106/2015 Lumbar spondylosis 10/17/2011 6 SI (sacroiliac) joint dysfunction 06/04/2011 03/26/2016 Nonallopathic lesion of sacr al region, not elsewhere classified 02/10/2011 03/26/2016 Piriformis syndrome 01/20/2011 03/26/20 16 Lumbar disc disease with radiculopathy 11/15/2010 03/26/2016 Cervical disc disorder with radiculopathy 02/18/2010 03/26/2016 Brachial neuritis or radiculitis NOS 02/04/2010 03/26/2016 Cervical radiculopathy 01/11/201003/26 Pelvic pain in female 04/25/20092015 Cluster headache syndrome 04/07/2009 Thoracic or lumbosacral neur itis or radiculitis, unspecified 09/19/2008 03/26/2016 Contusion of chest wall 06/09/200806/2015 Acute gastritis without mention of hemorrhage 04/09/20 07 03/26/2016 Sciatica 06/13/2005 03/26/2016 Greater Trochanteric bursitis right 05/28/2005 03/26/2016 Lumbago 02/06/2005 03/26/2016 documented as of this encounter (statuses as of 02/25/2023) [facility] History of Past illness Narrative* Problem Noted Date Diagnosed Date Resolved Date Neck pain 06/12/2020 10/18/2020 Primary cancer of left kidney 08/08/2016 06/04/2018 Strain of right knee and leg 02/06/2016 03/26/2016 Right sided abdominal pain 01/19/2015 1 05/26/2015 Unspecified gastritis and ga stroduodenitis without mention of hemorrhage 09/15/2013 03/26/2016 Thoracolumbar back pain 07/20/201306/2015 Left renal mass 06/16/2013 03/26/2016 Left shoulder strain 10/29/2012 015 Lumbar facet arthropathy 10/17/201106/2015 Lumbar spondylosis 10/17/2011 6 SI (sacroiliac) joint dysfunction 06/04/2011 03/26/2016 Nonallopathic lesion of sacr al region, not elsewhere classified 02/10/2011 03/26/2016 Piriformis syndrome 01/20/2011 03/26/20 16 Lumbar disc disease with radiculopathy 11/15/2010 03/26/2016 Cervical disc disorder with radiculopathy 02/18/2010 03/26/2016 Brachial neuritis or radiculitis NOS 02/04/2010 03/26/2016 Cervical radiculopathy 01/11/201003/26 Pelvic pain in female 04/25/20092015 Cluster headache syndrome 04/07/2009 Thoracic or lumbosacral neur itis or radiculitis, unspecified 09/19/2008 03/26/2016 Contusion of chest wall 06/09/200806/2015 Acute gastritis without mention of hemorrhage 04/09/20 07 03/26/2016 Sciatica 06/13/2005 03/26/2016 Greater Trochanteric bursitis right 05/28/2005 03/26/2016 Lumbago 02/06/2005 03/26/2016 documented as of this encounter (statuses as of 03/03/2023) [facility]21 History of Past illness Narrative* Problem Noted Date Diagnosed Date Resolved Date Neck pain 06/12/2020 10/18/2020 Primary cancer of left kidney 08/08/2016 06/04/2018 Strain of right knee and leg 02/06/2016 03/26/2016 Right sided abdominal pain 01/19/2015 1 05/26/2015 Unspecified gastritis and ga stroduodenitis without mention of hemorrhage 09/15/2013 03/26/2016 Thoracolumbar back pain 07/20/201306/2015 Left renal mass 06/16/2013 03/26/2016 Left shoulder strain 10/29/2012 015 Lumbar facet arthropathy 10/17/201106/2015 Lumbar spondylosis 10/17/2011 6 SI (sacroiliac) joint dysfunction 06/04/2011 03/26/2016 Nonallopathic lesion of sacr al region, not elsewhere classified 02/10/2011 03/26/2016 Piriformis syndrome 01/20/2011 03/26/20 16 Lumbar disc disease with radiculopathy 11/15/2010 03/26/2016 Cervical disc disorder with radiculopathy 02/18/2010 03/26/2016 Brachial neuritis or radiculitis NOS 02/04/2010 03/26/2016 Cervical radiculopathy 01/11/201003/26 Pelvic pain in female 04/25/20092015 Cluster headache syndrome 04/07/2009 Thoracic or lumbosacral neur itis or radiculitis, unspecified 09/19/2008 03/26/2016 Contusion of chest wall 06/09/200806/2015 Acute gastritis without mention of hemorrhage 04/09/20 07 03/26/2016 Sciatica 06/13/2005 03/26/2016 Greater Trochanteric bursitis right 05/28/2005 03/26/2016 Lumbago 02/06/2005 03/26/2016 documented as of this encounter (statuses as of 03/12/2023) [facility] History of Past illness Narrative* Problem Noted Date Diagnosed Date Resolved Date Neck pain 06/12/2020 10/18/2020 Primary cancer of left kidney 08/08/2016 06/04/2018 Strain of right knee and leg 02/06/2016 03/26/2016 Right sided abdominal pain 01/19/2015 1 05/26/2015 Unspecified gastritis and ga stroduodenitis without mention of hemorrhage 09/15/2013 03/26/2016 Thoracolumbar back pain 07/20/201306/2015 Left renal mass 06/16/2013 03/26/2016 Left shoulder strain 10/29/2012 015 Lumbar facet arthropathy 10/17/201106/2015 Lumbar spondylosis 10/17/2011 6 SI (sacroiliac) joint dysfunction 06/04/2011 03/26/2016 Nonallopathic lesion of sacr al region, not elsewhere classified 02/10/2011 03/26/2016 Piriformis syndrome 01/20/2011 03/26/20 16 Lumbar disc disease with radiculopathy 11/15/2010 03/26/2016 Cervical disc disorder with radiculopathy 02/18/2010 03/26/2016 Brachial neuritis or radiculitis NOS 02/04/2010 03/26/2016 Cervical radiculopathy 01/11/201003/26 Pelvic pain in female 04/25/20092015 Cluster headache syndrome 04/07/2009 Thoracic or lumbosacral neur itis or radiculitis, unspecified 09/19/2008 03/26/2016 Contusion of chest wall 06/09/200806/2015 Acute gastritis without mention of hemorrhage 04/09/20 07 03/26/2016 Sciatica 06/13/2005 03/26/2016 Greater Trochanteric bursitis right 05/28/2005 03/26/2016 Lumbago 02/06/2005 03/26/2016 documented as of this encounter (statuses as of 03/24/2023) [facility] History of Past illness Narrative* Problem Noted Date Diagnosed Date Resolved Date Neck pain 06/12/2020 10/18/2020 Primary cancer of left kidney 08/08/2016 06/04/2018 Strain of right knee and leg 02/06/2016 03/26/2016 Right sided abdominal pain 01/19/2015 1 05/26/2015 Unspecified gastritis and ga stroduodenitis without mention of hemorrhage 09/15/2013 03/26/2016 Thoracolumbar back pain 07/20/201306/2015 Left renal mass 06/16/2013 03/26/2016 Left shoulder strain 10/29/2012 015 Lumbar facet arthropathy 10/17/201106/2015 Lumbar spondylosis 10/17/2011 6 SI (sacroiliac) joint dysfunction 06/04/2011 03/26/2016 Nonallopathic lesion of sacr al region, not elsewhere classified 02/10/2011 03/26/2016 Piriformis syndrome 01/20/2011 03/26/20 16 Lumbar disc disease with radiculopathy 11/15/2010 03/26/2016 Cervical disc disorder with radiculopathy 02/18/2010 03/26/2016 Brachial neuritis or radiculitis NOS 02/04/2010 03/26/2016 Cervical radiculopathy 01/11/201003/26 Pelvic pain in female 04/25/20092015 Cluster headache syndrome 04/07/2009 Thoracic or lumbosacral neur itis or radiculitis, unspecified 09/19/2008 03/26/2016 Contusion of chest wall 06/09/200806/2015 Acute gastritis without mention of hemorrhage 04/09/20 07 03/26/2016 Sciatica 06/13/2005 03/26/2016 Greater Trochanteric bursitis right 05/28/2005 03/26/2016 Lumbago 02/06/2005 03/26/2016 documented as of this encounter (statuses as of 06/26/2023) [facility] History of Past illness Narrative* Problem Noted Date Diagnosed Date Resolved Date Neck pain 06/12/2020 10/18/2020 Primary cancer of left kidney 08/08/2016 06/04/2018 Strain of right knee and leg 02/06/2016 03/26/2016 Right sided abdominal pain 01/19/2015 1 05/26/2015 Unspecified gastritis and ga stroduodenitis without mention of hemorrhage 09/15/2013 03/26/2016 Thoracolumbar back pain 07/20/201306/2015 Left renal mass 06/16/2013 03/26/2016 Left shoulder strain 10/29/2012 015 Lumbar facet arthropathy 10/17/201106/2015 Lumbar spondylosis 10/17/2011 6 SI (sacroiliac) joint dysfunction 06/04/2011 03/26/2016 Nonallopathic lesion of sacr al region, not elsewhere classified 02/10/2011 03/26/2016 Piriformis syndrome 01/20/2011 03/26/20 16 Lumbar disc disease with radiculopathy 11/15/2010 03/26/2016 Cervical disc disorder with radiculopathy 02/18/2010 03/26/2016 Brachial neuritis or radiculitis NOS 02/04/2010 03/26/2016 Cervical radiculopathy 01/11/201003/26 Pelvic pain in female 04/25/20092015 Cluster headache syndrome 04/07/2009 Thoracic or lumbosacral neur itis or radiculitis, unspecified 09/19/2008 03/26/2016 Contusion of chest wall 06/09/200806/2015 Acute gastritis without mention of hemorrhage 04/09/20 07 03/26/2016 Sciatica 06/13/2005 03/26/2016 Greater Trochanteric bursitis right 05/28/2005 03/26/2016 Lumbago 02/06/2005 03/26/2016 documented as of this encounter (statuses as of 06/26/2023) [facility] History of Past illness Narrative* Problem Noted Date Diagnosed Date Resolved Date Neck pain 06/12/2020 10/18/2020 Primary cancer of left kidney 08/08/2016 06/04/2018 Strain of right knee and leg 02/06/2016 03/26/2016 Right sided abdominal pain 01/19/2015 1 05/26/2015 Unspecified gastritis and ga stroduodenitis without mention of hemorrhage 09/15/2013 03/26/2016 Thoracolumbar back pain 07/20/201306/2015 Left renal mass 06/16/2013 03/26/2016 Left shoulder strain 10/29/2012 015 Lumbar facet arthropathy 10/17/201106/2015 Lumbar spondylosis 10/17/2011 6 SI (sacroiliac) joint dysfunction 06/04/2011 03/26/2016 Nonallopathic lesion of sacr al region, not elsewhere classified 02/10/2011 03/26/2016 Piriformis syndrome 01/20/2011 03/26/20 16 Lumbar disc disease with radiculopathy 11/15/2010 03/26/2016 Cervical disc disorder with radiculopathy 02/18/2010 03/26/2016 Brachial neuritis or radiculitis NOS 02/04/2010 03/26/2016 Cervical radiculopathy 01/11/201003/26 Pelvic pain in female 04/25/20092015 Cluster headache syndrome 04/07/2009 Thoracic or lumbosacral neur itis or radiculitis, unspecified 09/19/2008 03/26/2016 Contusion of chest wall 06/09/200806/2015 Acute gastritis without mention of hemorrhage 04/09/20 07 03/26/2016 Sciatica 06/13/2005 03/26/2016 Greater Trochanteric bursitis right 05/28/2005 03/26/2016 Lumbago 02/06/2005 03/26/2016 documented as of this encounter (statuses as of 07/07/2023) [facility] History of Past illness Narrative* Problem Noted Date Diagnosed Date Resolved Date Neck pain 06/12/2020 10/18/2020 Primary cancer of left kidney 08/08/2016 06/04/2018 Strain of right knee and leg 02/06/2016 03/26/2016 Right sided abdominal pain 01/19/2015 1 05/26/2015 Unspecified gastritis and ga stroduodenitis without mention of hemorrhage 09/15/2013 03/26/2016 Thoracolumbar back pain 07/20/201306/2015 Left renal mass 06/16/2013 03/26/2016 Left shoulder strain 10/29/2012 015 Lumbar facet arthropathy 10/17/201106/2015 Lumbar spondylosis 10/17/2011 6 SI (sacroiliac) joint dysfunction 06/04/2011 03/26/2016 Nonallopathic lesion of sacr al region, not elsewhere classified 02/10/2011 03/26/2016 Piriformis syndrome 01/20/2011 03/26/20 16 Lumbar disc disease with radiculopathy 11/15/2010 03/26/2016 Cervical disc disorder with radiculopathy 02/18/2010 03/26/2016 Brachial neuritis or radiculitis NOS 02/04/2010 03/26/2016 Cervical radiculopathy 01/11/201003/26 Pelvic pain in female 04/25/20092015 Cluster headache syndrome 04/07/2009 Thoracic or lumbosacral neur itis or radiculitis, unspecified 09/19/2008 03/26/2016 Contusion of chest wall 06/09/200806/2015 Acute gastritis without mention of hemorrhage 04/09/20 07 03/26/2016 Sciatica 06/13/2005 03/26/2016 Greater Trochanteric bursitis right 05/28/2005 03/26/2016 Lumbago 02/06/2005 03/26/2016 documented as of this encounter (statuses as of 07/14/2023) [facility] History of Past illness Narrative* Problem Noted Date Diagnosed Date Resolved Date Neck pain 06/12/2020 10/18/2020 Primary cancer of left kidney 08/08/2016 06/04/2018 Strain of right knee and leg 02/06/2016 03/26/2016 Right sided abdominal pain 01/19/2015 1 05/26/2015 Unspecified gastritis and ga stroduodenitis without mention of hemorrhage 09/15/2013 03/26/2016 Thoracolumbar back pain 07/20/201306/2015 Left renal mass 06/16/2013 03/26/2016 Left shoulder strain 10/29/2012 015 Lumbar facet arthropathy 10/17/201106/2015 Lumbar spondylosis 10/17/2011 6 SI (sacroiliac) joint dysfunction 06/04/2011 03/26/2016 Nonallopathic lesion of sacr al region, not elsewhere classified 02/10/2011 03/26/2016 Piriformis syndrome 01/20/2011 03/26/20 Lumbar disc disease with radiculopathy 11/15/2010 03/26/2016 Cervical disc disorder with radiculopathy 02/18/2010 03/26/2016 Brachial neuritis or radiculitis NOS 02/04/2010 03/26/2016 Cervical radiculopathy 01/11/201003/26 Pelvic pain in female 04/25/20092015 Cluster headache syndrome 04/07/2009 Thoracic or lumbosacral neur itis or radiculitis, unspecified 09/19/2008 03/26/2016 Contusion of chest wall 06/09/200806/2015 Acute gastritis without mention of hemorrhage 04/09/20 07 03/26/2016 Sciatica 06/13/2005 03/26/2016 Greater Trochanteric bursitis right 05/28/2005 03/26/2016 Lumbago 02/06/2005 03/26/2016 documented as of this encounter (statuses as of 07/17/2023) [facility] History of Past illness Narrative* Problem Noted Date Diagnosed Date Resolved Date Neck pain 06/12/2020 10/18/2020 Primary cancer of left kidney 08/08/2016 06/04/2018 Strain of right knee and leg 02/06/2016 03/26/2016 Right sided abdominal pain 01/19/2015 1 05/26/2015 Unspecified gastritis and ga stroduodenitis without mention of hemorrhage 09/15/2013 03/26/2016 Thoracolumbar back pain 07/20/201306/2015 Left renal mass 06/16/2013 03/26/2016 Left shoulder strain 10/29/2012 015 Lumbar facet arthropathy 10/17/201106/2015 Lumbar spondylosis 10/17/2011 6 SI (sacroiliac) joint dysfunction 06/04/2011 03/26/2016 Nonallopathic lesion of sacr al region, not elsewhere classified 02/10/2011 03/26/2016 Piriformis syndrome 01/20/2011 03/26/20 16 Lumbar disc disease with radiculopathy 11/15/2010 03/26/2016 Cervical disc disorder with radiculopathy 02/18/2010 03/26/2016 Brachial neuritis or radiculitis NOS 02/04/2010 03/26/2016 Cervical radiculopathy 01/11/201003/26 Pelvic pain in female 04/25/20092015 Cluster headache syndrome 04/07/2009 Thoracic or lumbosacral neur itis or radiculitis, unspecified 09/19/2008 03/26/2016 Contusion of chest wall 06/09/200806/2015 Acute gastritis without mention of hemorrhage 04/09/20 07 03/26/2016 Sciatica 06/13/2005 03/26/2016 Greater Trochanteric bursitis right 05/28/2005 03/26/2016 Lumbago 02/06/2005 03/26/2016 documented as of this encounter (statuses as of 07/27/2023) [facility] History of Past illness Narrative* Problem Noted Date Diagnosed Date Resolved Date Neck pain 06/12/2020 10/18/2020 Primary cancer of left kidney 08/08/2016 06/04/2018 Strain of right knee and leg 02/06/2016 03/26/2016 Right sided abdominal pain 01/19/2015 1 05/26/2015 Unspecified gastritis and ga stroduodenitis without mention of hemorrhage 09/15/2013 03/26/2016 Thoracolumbar back pain 07/20/201306/2015 Left renal mass 06/16/2013 03/26/2016 Left shoulder strain 10/29/2012 015 Lumbar facet arthropathy 10/17/201106/2015 Lumbar spondylosis 10/17/2011 6 SI (sacroiliac) joint dysfunction 06/04/2011 03/26/2016 Nonallopathic lesion of sacr al region, not elsewhere classified 02/10/2011 03/26/2016 Piriformis syndrome 01/20/2011 03/26/20 16 Lumbar disc disease with radiculopathy 11/15/2010 03/26/2016 Cervical disc disorder with radiculopathy 02/18/2010 03/26/2016 Brachial neuritis or radiculitis NOS 02/04/2010 03/26/2016 Cervical radiculopathy 01/11/201003/26 Pelvic pain in female 04/25/20092015 Cluster headache syndrome 04/07/2009 Thoracic or lumbosacral neur itis or radiculitis, unspecified 09/19/2008 03/26/2016 Contusion of chest wall 06/09/200806/2015 Acute gastritis without mention of hemorrhage 04/09/20 07 03/26/2016 Sciatica 06/13/2005 03/26/2016 Greater Trochanteric bursitis right 05/28/2005 03/26/2016 Lumbago 02/06/2005 03/26/2016 documented as of this encounter (statuses as of 08/09/2023) [facility] History of Past illness Narrative* Problem Noted Date Diagnosed Date Resolved Date Neck pain 06/12/2020 10/18/2020 Primary cancer of left kidney 08/08/2016 06/04/2018 Strain of right knee and leg 02/06/2016 03/26/2016 Right sided abdominal pain 01/19/2015 1 05/26/2015 Unspecified gastritis and ga stroduodenitis without mention of hemorrhage 09/15/2013 03/26/2016 Thoracolumbar back pain 07/20/201306/2015 Left renal mass 06/16/2013 03/26/2016 Left shoulder strain 10/29/2012 015 Lumbar facet arthropathy 10/17/201106/2015 Lumbar spondylosis 10/17/2011 6 SI (sacroiliac) joint dysfunction 06/04/2011 03/26/2016 Nonallopathic lesion of sacr al region, not elsewhere classified 02/10/2011 03/26/2016 Piriformis syndrome 01/20/2011 03/26/20 16 Lumbar disc disease with radiculopathy 11/15/2010 03/26/2016 Cervical disc disorder with radiculopathy 02/18/2010 03/26/2016 Brachial neuritis or radiculitis NOS 02/04/2010 03/26/2016 Cervical radiculopathy 01/11/201003/26 Pelvic pain in female 04/25/20092015 Cluster headache syndrome 04/07/2009 Thoracic or lumbosacral neur itis or radiculitis, unspecified 09/19/2008 03/26/2016 Contusion of chest wall 06/09/200806/2015 Acute gastritis without mention of hemorrhage 04/09/20 07 03/26/2016 Sciatica 06/13/2005 03/26/2016 Greater Trochanteric bursitis right 05/28/2005 03/26/2016 Lumbago 02/06/2005 03/26/2016 documented as of this encounter (statuses as of 08/10/2023) [facility] History of Past illness Narrative* Problem Noted Date Diagnosed Date Resolved Date Neck pain 06/12/2020 10/18/2020 Primary cancer of left kidney 08/08/2016 06/04/2018 Strain of right knee and leg 02/06/2016 03/26/2016 Right sided abdominal pain 01/19/2015 1 05/26/2015 Unspecified gastritis and ga stroduodenitis without mention of hemorrhage 09/15/2013 03/26/2016 Thoracolumbar back pain 07/20/201306/2015 Left renal mass 06/16/2013 03/26/2016 Left shoulder strain 10/29/2012 015 Lumbar facet arthropathy 10/17/201106/2015 Lumbar spondylosis 10/17/2011 6 SI (sacroiliac) joint dysfunction 06/04/2011 03/26/2016 Nonallopathic lesion of sacr al region, not elsewhere classified 02/10/2011 03/26/2016 Piriformis syndrome 01/20/2011 03/26/20 16 Lumbar disc disease with radiculopathy 11/15/2010 03/26/2016 Cervical disc disorder with radiculopathy 02/18/2010 03/26/2016 Brachial neuritis or radiculitis NOS 02/04/2010 03/26/2016 Cervical radiculopathy 01/11/201003/26 Pelvic pain in female 04/25/20092015 Cluster headache syndrome 04/07/2009 Thoracic or lumbosacral neur itis or radiculitis, unspecified 09/19/2008 03/26/2016 Contusion of chest wall 06/09/200806/2015 Acute gastritis without mention of hemorrhage 04/09/20 07 03/26/2016 Sciatica 06/13/2005 03/26/2016 Greater Trochanteric bursitis right 05/28/2005 03/26/2016 Lumbago 02/06/2005 03/26/2016 documented as of this encounter (statuses as of 08/13/2023) [facility] of Past illness Narrative* Problem Noted Date Diagnosed Date Resolved Date Neck pain 06/12/2020 10/18/2020 Primary cancer of left kidney 08/08/2016 06/04/2018 Strain of right knee and leg 02/06/2016 03/26/2016 Right sided abdominal pain 01/19/2015 1 05/26/2015 Unspecified gastritis and ga stroduodenitis without mention of hemorrhage 09/15/2013 03/26/2016 Thoracolumbar back pain 07/20/201306/2015 Left renal mass 06/16/2013 03/26/2016 Left shoulder strain 10/29/2012 015 Lumbar facet arthropathy 10/17/201106/2015 Lumbar spondylosis 10/17/2011 6 SI (sacroiliac) joint dysfunction 06/04/2011 03/26/2016 Nonallopathic lesion of sacr al region, not elsewhere classified 02/10/2011 03/26/2016 Piriformis syndrome 01/20/2011 03/26/20 16 Lumbar disc disease with radiculopathy 11/15/2010 03/26/2016 Cervical disc disorder with radiculopathy 02/18/2010 03/26/2016 Brachial neuritis or radiculitis NOS 02/04/2010 03/26/2016 Cervical radiculopathy 01/11/201003/26 Pelvic pain in female 04/25/20092015 Cluster headache syndrome 04/07/2009 Thoracic or lumbosacral neur itis or radiculitis, unspecified 09/19/2008 03/26/2016 Contusion of chest wall 06/09/200806/2015 Acute gastritis without mention of hemorrhage 04/09/20 07 03/26/2016 Sciatica 06/13/2005 03/26/2016 Greater Trochanteric bursitis right 05/28/2005 03/26/2016 Lumbago 02/06/2005 03/26/2016 documented as of this encounter (statuses as of 08/18/2023) [facility] of Past illness Narrative* Problem Noted Date Diagnosed Date Resolved Date Neck pain 06/12/2020 10/18/2020 Primary cancer of left kidney 08/08/2016 06/04/2018 Strain of right knee and leg 02/06/2016 03/26/2016 Right sided abdominal pain 01/19/2015 1 05/26/2015 Unspecified gastritis and ga stroduodenitis without mention of hemorrhage 09/15/2013 03/26/2016 Thoracolumbar back pain 07/20/201306/2015 Left renal mass 06/16/2013 03/26/2016 Left shoulder strain 10/29/2012 015 Lumbar facet arthropathy 10/17/201106/2015 Lumbar spondylosis 10/17/2011 6 SI (sacroiliac) joint dysfunction 06/04/2011 03/26/2016 Nonallopathic lesion of sacr al region, not elsewhere classified 02/10/2011 03/26/2016 Piriformis syndrome 01/20/2011 03/26/20 16 Lumbar disc disease with radiculopathy 11/15/2010 03/26/2016 Cervical disc disorder with radiculopathy 02/18/2010 03/26/2016 Brachial neuritis or radiculitis NOS 02/04/2010 03/26/2016 Cervical radiculopathy 01/11/201003/26 Pelvic pain in female 04/25/20092015 Cluster headache syndrome 04/07/2009 Thoracic or lumbosacral neur itis or radiculitis, unspecified 09/19/2008 03/26/2016 Contusion of chest wall 06/09/200806/2015 Acute gastritis without mention of hemorrhage 04/09/20 07 03/26/2016 Sciatica 06/13/2005 03/26/2016 Greater Trochanteric bursitis right 05/28/2005 03/26/2016 Lumbago 02/06/2005 03/26/2016 documented as of this encounter (statuses as of 08/28/2023) [facility] of Past illness Narrative* Problem Noted Date Diagnosed Date Resolved Date Neck pain 06/12/2020 10/18/2020 Primary cancer of left kidney 08/08/2016 06/04/2018 Strain of right knee and leg 02/06/2016 03/26/2016 Right sided abdominal pain 01/19/2015 1 05/26/2015 Unspecified gastritis and ga stroduodenitis without mention of hemorrhage 09/15/2013 03/26/2016 Thoracolumbar back pain 07/20/201306/2015 Left renal mass 06/16/2013 03/26/2016 Left shoulder strain 10/29/2012 015 Lumbar facet arthropathy 10/17/201106/2015 Lumbar spondylosis 10/17/2011 6 SI (sacroiliac) joint dysfunction 06/04/2011 03/26/2016 Nonallopathic lesion of sacr al region, not elsewhere classified 02/10/2011 03/26/2016 Piriformis syndrome 01/20/2011 03/26/20 16 Lumbar disc disease with radiculopathy 11/15/2010 03/26/2016 Cervical disc disorder with radiculopathy 02/18/2010 03/26/2016 Brachial neuritis or radiculitis NOS 02/04/2010 03/26/2016 Cervical radiculopathy 01/11/201003/26 Pelvic pain in female 04/25/20092015 Cluster headache syndrome 04/07/2009 Thoracic or lumbosacral neur itis or radiculitis, unspecified 09/19/2008 03/26/2016 Contusion of chest wall 06/09/200806/2015 Acute gastritis without mention of hemorrhage 04/09/20 07 03/26/2016 Sciatica 06/13/2005 03/26/2016 Greater Trochanteric bursitis right 05/28/2005 03/26/2016 Lumbago 02/06/2005 03/26/2016 documented as of this encounter (statuses as of 09/09/2023) [facility] of Past illness Narrative* Problem Noted Date Diagnosed Date Resolved Date Neck pain 06/12/2020 10/18/2020 Primary cancer of left kidney 08/08/2016 06/04/2018 Strain of right knee and leg 02/06/2016 03/26/2016 Right sided abdominal pain 01/19/2015 1 05/26/2015 Unspecified gastritis and ga stroduodenitis without mention of hemorrhage 09/15/2013 03/26/2016 Thoracolumbar back pain 07/20/201306/2015 Left renal mass 06/16/2013 03/26/2016 Left shoulder strain 10/29/2012 015 Lumbar facet arthropathy 10/17/201106/2015 Lumbar spondylosis 10/17/2011 6 SI (sacroiliac) joint dysfunction 06/04/2011 03/26/2016 Nonallopathic lesion of sacr al region, not elsewhere classified 02/10/2011 03/26/2016 Piriformis syndrome 01/20/2011 03/26/20 16 Lumbar disc disease with radiculopathy 11/15/2010 03/26/2016 Cervical disc disorder with radiculopathy 02/18/2010 03/26/2016 Brachial neuritis or radiculitis NOS 02/04/2010 03/26/2016 Cervical radiculopathy 01/11/201003/26 Pelvic pain in female 04/25/20092015 Cluster headache syndrome 04/07/2009 Thoracic or lumbosacral neur itis or radiculitis, unspecified 09/19/2008 03/26/2016 Contusion of chest wall 06/09/200806/2015 Acute gastritis without mention of hemorrhage 04/09/20 07 03/26/2016 Sciatica 06/13/2005 03/26/2016 Greater Trochanteric bursitis right 05/28/2005 03/26/2016 Lumbago 02/06/2005 03/26/2016 documented as of this encounter (statuses as of 09/11/2023) [facility] Yefri Gutierrez [facility] September 29, 2023 6:25am Note Date/Time September 29, 2023 6:23am [facility] Medical Records Department [address] [place] [address] Emergency Department Summary 09/29/23 MR#: [id number] Acct: [id number] Name: PAYTON MCQUEEN Rep #:[id number] : 1965 58 From: Yefri Gutierrez MD PCP: Dr. Sue Weber MD Status:[facility] ER Location: ED HPI History of Present Illness Chief Complaint: Allergic Reaction Informant: patient Narrative Narrative: Patient presents not being able to sleep because she is feeling hot and itchy and burning everywhere in her body. It is worst in her face and scalp, and in her groin. She has been getting welts/hives. This episodes been going on for 4to 5 days. These are the same symptoms she had a few weeks ago after breaking out and receiving steroids which really helped calm everything down. Has been using Benadryl off-and-on it helped a little but not as much as she would have hoped. It does help the red splotches go away. She denies any dyspnea, lightheadedness, near-syncope or syncope. No extremity edema. [facility] Medical History Acute maxillary sinusitis, unspecified Anxiety Back pain Bladder distention Cancer Depression Essential thrombocythemia Gastric reflux History of stress test Hypertension Injury of back Interstitial cystitis Iron deficiency Knee pain Leukocytosis Low iron Malignant tumor of kidney Non-smoker Post-menopausal Pre-diabetes Severe headache Shoulder pain Stomach ulcer Thrombocytosis Thyroid disease Thyroid disease Vaginal candidiasis Home Medications buspirone 5 mg tablet 15 mg PO BID ANXIETY 08/28/15 [History Last Taken 01/15/19] mirabegron 25 mg tablet,extended release 24 hr 50 mg PO 1400 BLADDER 05/31/18 [History Last Taken 01/15/19] L.acidoph, paracasei,B. lactis 10 billion cell capsule 1 ea PO DAILY G[facility] HEALTH 01/16/19 [History Last Taken 01/16/19] bupropion HCl 150 mg tablet,12 hr sustained-release 300 mg PO 1400 DEPRESSION 02/19/19 [History Last Taken Unknown] aspirin 81 mg tablet,delayed release 81 mg PO DAILY 07/04/19 [History Last Taken 02/10/21] d-mannose 1 ea PO DAILY 02/28/20 [History Last Taken Unknown] methenamine 120 mg-methyl.blue 10.8 mg-sod phos-phenyl benja-hyos tablet 1 tab PO PRN PRN Bladder Spasms 02/15/21 [History Last Taken Unknown] buspirone 15 mg tablet 15 mg PO BID 12/03/21 [History Last Taken Unknown] doxepin 10 mg capsule 10 mg PO QHS 12/03/21 [History Last Taken Unknown] levothyroxine 150 mcg tablet 150 mcg PO DAILY 12/03/21 [History Last Taken Unknown] levothyroxine 25 mcg tablet 150 mcg PO DAILY THYROID 12/03/21 [History Last Taken Unknown] omeprazole 40 mg capsule,delayed release 40 mg PO DAILY 12/03/21 [History Last Taken Unknown] ondansetron 4 mg disintegrating tablet 4 mg PO Q8H PRN PRN Nausea #10 tabs 01/16/23 [Rx Last Taken Unknown] cyclobenzaprine 10 mg tablet 10 mg PO TID PRN Muscle Spasm #15 TABLETS 01/28/23 [Rx Last Taken Unknown] hydrocodone-acetaminophen 5-325mg 5mg-325mg 1 tab PO Q6H PRN PRN Pain 3 days #10TABLETS 01/28/23 [Rx Last Taken Unknown] hydroxyzine HCl 25 mg tablet 25 mg PO Q6H PRN itching #20 tabs 09/09/23 [Rx Last Taken Unknown] Allergy/AdvReac Type Severity Reaction Status Date / Time ketorolac tromethamine Allergy Severe Hives Verified 09/29/23 05:57 [From Toradol] solifenacin succinate Allergy Severe Hives Verified 09/29/23 05:57 [From Vesicare] erythromycin base AdvReac Severe Nausea/Vom/ Verified 09/29/23 05:57 [Erythromycin Base] Diarrhea celecoxib [From Celebrex] AdvReac Intermediate Nausea/Vom/ Verified 09/29/23 05:57 Diarrhea lisinopril AdvReac Mild Vomiting Verified 09/29/23 05:57 Family History Father Diabetes Heart disease Hypertension Grandmother Cancer Surgical History History of cholecystectomy History of root canal procedure partial kidney removed Social History number of children: 0 current occupational status: employed current occupation: [employer] Smoking Status: Never smoker alcohol intake: never substance use type: does not use seatbelt use: sometimes do you feel safe at home: Yes additional social history: single ROS ROS ED Constitutional Constitutional ED: Denies chills or fever(s) Eyes Eyes: Denies change in vision or diplopia ENT ENT ED: Denies rhinorrhea or sore throat Cardiovascular Cardiovascular: Denies chest pain or palpitations Respiratory/Chest Respiratory/Chest: Denies cough or dyspnea Gastrointestinal Gastrointestinal: Denies abdominal pain, diarrhea, nausea or vomiting Genitourinary Genitourinary ED: Denies dysuria or hematuria Musculoskeletal Musculoskeletal: Denies back pain or neck pain Integumentary Reports as per HPI, pruritus, rash and skin pain; Denies abscess Neurologic Neurologic: Denies headache(s), paresthesias or weakness Psychiatric Psychiatric: Denies suicidal ideation or suicidal thoughts EXAM Physical Exam Const Vital Signs: 09/29/23 05:57 Temperature 96.5 F L Temperature Source Temporal Pulse Rate 85 Respiratory Rate 16 Blood Pressure 171/82 H Blood Pressure Mean 111 Pulse Ox 97 Positive well nourished, well developed and obese General Appearance ED: well developed and NAD Nutritional Appearance: obese HEENT Reports moist mucous membranes normocephalic and atraumatic Eyes PERRL and EOMs intact bilaterally Neck full ROM and supple Resp normal respiratory effort and clear to auscultation bilaterally Cardio regular rate, regular rhythm and no murmurs GI non-distended Back/Spine General Back: other FROM Extremity normal to inspection General Extremety ED: Negative for edema, pulses abnormal or tenderness General Extremity: Negative for edema or pulses abnormal Neuro oriented x3, CN's II-XII intact bilaterally and no sensory deficits noted Sensorium / Orientation: awake and alert Motor Exam: strength 5/5 throughout Psych mental status grossly normal Mood & Affect: anxious Skin no wounds Skin Narrative: couple blanching nontender urticaria seen on RUE. excoriations from scratching bilat lower legs. no sign of any infections. no edema face or ext's. MDM MDM MDM Narrative Medical decision making narrative: Patient states she cannot take prednisone because of significant GI symptoms, she does well with an injection of Kenalog though. She understands that if she gets an injection of Kenalog, she would not be able to discontinue the steroid and must wait till it wears off. She is due to see dermatology in several days. Unknown what she is reacting to. Seems like she may be sensitive to detergents/soaps, possibly the detergent themselves or may be preservatives, perfumes within them, etc. She has seen ENT/allergy and had multiple tests run that were negative for lots of foods and other allergens. EMR suggest that she is either prediabetic or type II diabetic, she states this is incorrect and her A1c's have been in the low 5% and her doctors told her she is not a diabetic andshe did not have significant side effects when she had the last dose of Kenalog 3 to 4 weeks ago. Discharge Plan Triage Chief Complaint: Allergic Reaction ED Provider: Yefri Gutierrez Dx/Rx/DC Orders Clinical Impression: Allergic urticaria Instructions: Triamcinolone Injection, Allergy Overview Prescriptions: No Action d-mannose Powder 1 ea PO DAILY doxepin 10 mg capsule 10 mg PO QHS buspirone 15 mg tablet 15 mg PO BID levothyroxine 150 mcg tablet 150 mcg PO DAILY omeprazole 40 mg capsule,delayed release(DR/EC) 40 mg PO DAILY buspirone 5 MG tablet 15 mg PO BID mirabegron 25 mg tablet extended release 24 hr 50 mg PO 1400 bupropion HCl 150 mg tablet sustained-release 12 hr 300 mg PO 1400 levothyroxine 25 mcg tablet 150 mcg PO DAILY L.acidoph, paracasei,B. lactis 1 EACH capsule 1 ea PO DAILY aspirin 81 MG tablet,delayed release (DR/EC) 81 mg PO DAILY [id number] 120-0.12-10.8 mg Tablet 1 tab PO PRN PRN (Reason: Bladder Spasms) ondansetron [ondansetron] 4 mg tablet,disintegrating 4 mg PO Q8H PRN PRN (Reason: Nausea) Qty: 10 0RF hydrocodone-acetaminophen [hydrocodone-acetaminophen] 5-325 mg tablet 1 tab PO Q6H PRN PRN (Reason: Pain) 3 Days Qty: 10 0RF cyclobenzaprine [cyclobenzaprine] 10 mg tablet 10 mg PO TID PRN (Reason: Muscle Spasm) Qty: 15 0RF hydroxyzine HCl 25 mg tablet 25 mg PO Q6H PRN (Reason: itching) Qty: 20 0RF Primary Care Provider: Sue Weber Referrals: Sue Weber MD [Primary Care Provider] - (And/or [facility] as scheduled) Disposition Disposition: Home, Self Care What to do if you have Problems For any increased pain, shortness of breath, bleeding, nausea or vomiting, chestpain, or any unexpected problems, contact your Primary Care Provider. Call [facility] ([phone]) or report to the closest Emergency Room. Call 911 if necessary. 09/29/23 06 <Electronically signed by Yefri Gutierrez MD> Cosigner Signature (if applicable): CC: Dr. Sue Weber MD ~ Signed [facility] Work Phone: Evaluation note* Diagnosis Gastroesophageal reflux disease without esophagitis Esophageal reflux [facility]* Diagnosis Acute sinusitis, recurrence not specified, unspecified location- Primary Hypothyroidism, unspecified type Essential hypertension, benign documented [facility]* Diagnosis Sleeping difficulty- Primary Sleep disturbance, unspecified Screening for colon cancer Special screening for malignant neoplasms, colon Encounter for screening mammogram for malignant neoplasm of breast Other screening mammogram Hypothyroidism, unspecified type Adjustment disorder with depressed mood Generalized anxiety disorder documented [facility]* Diagnosis Sleeping difficulty Sleep disturbance, unspecified documented [facility]* Diagnosis Onset Date Resolution Status Adnexal mass chronic Chronic myeloproliferative disorder chronic Splenomegaly chronic Chronic myeloproliferative disorder chronic Splenomegaly chronic [facility] Work Phone: Evaluation note* Diagnosis Sleeping difficulty- Primary Sleep disturbance, unspecified Generalized anxiety disorder [facility] Diagnosis Primary insomnia- Primary Persistent disorder of initiating or maintaining sleep Hypothyroidism, unspecified type Generalized anxiety disorder Nausea Nausea alone [facility] Primary insomnia- Primary Persistent disorder of initiating or maintaining sleep Hypothyroidism, unspecified type Generalized anxiety disorder Adjustment disorder with depressed mood Acute sinusitis, recurrence not specified, unspecified location Nausea Nausea alone Essential hypertension, benign Impaired glucose tolerance Impaired glucose tolerance test [facility] Diagnosis Acute otitis media, right- Primary Unspecified otitis media At increased risk of exposure to COVID-19 virus [facility]* Diagnosis OM (otitis media), recurrent, left- Primary [facility]* Diagnosis Urinary frequency- Primary [facility] Diagnosis Sinus congestion- Primary Other diseases of nasal cavity and sinuses At increased risk of exposure to COVID-19 virus [facility]* Diagnosis Hypothyroidism, unspecified type documented in this encounter [facility]* Diagnosis Generalized anxiety disorder- Primary Primary insomnia Persistent disorder of initiating or maintaining sleep Essential hypertension, benign Gastroesophageal reflux disease without esophagitis Esophageal reflux Hypothyroidism, unspecified type Essential thrombocythemia (HCC) Essential thrombocythemia Adjustment disorder with depressed mood Obesity, Class III, BMI 40-49.9 (morbid obesity) (HCC) Morbid obesity Impaired glucose tolerance Impaired glucose tolerance test [facility]* Diagnosis Bacterial sinusitis- Primary Unspecified sinusitis (chronic) [facility]* Diagnosis Viral syndrome- Primary Unspecified viral infection, in conditions classified elsewhere and of unspecified site [facility]* Diagnosis Acute non-recurrent frontal sinusitis- Primary Vaginal yeast infection Candidiasis of vulva and vagina [facility]* Diagnosis Bacterial sinusitis- Primary Unspecified sinusitis (chronic) [facility]* Diagnosis Cough, unspecified type- Primary Chest congestion Other symptoms involving respiratory system and chest Generalized weakness Other malaise and fatigue [facility] noteNo assessment information availableWBucyrus [facility] Work Phone: Evaluation note* Diagnosis Acute pain of right hip- Primary Pain in joint, pelvic region and thigh Muscle strain Unspecified site of sprain and strain [facility]* Diagnosis Hypothyroidism, unspecified type [facility]* Diagnosis Primary osteoarthritis of right hip- Primary Primary localized osteoarthrosis, pelvic region and thigh Acute pain of right hip Pain in joint, pelvic region and thigh [facility]* Diagnosis Jittery- Primary Nervousness Screening for hyperlipidemia Screening for lipoid disorders Hypothyroidism, unspecified type Essential thrombocythemia (HCC) Essential thrombocythemia Impaired glucose tolerance Impaired glucose tolerance test Visit for screening mammogram Other screening mammogram [facility]* Diagnosis Onset Date Resolution Status Greater trochanteric bursitis of right hip acute Chronic myeloproliferative disorder chronic Iron deficiency chronic Leukocytosis chronic Splenomegaly chronic Thrombocytosis chronic Adnexal mass chronic Chronic myeloproliferative disorder chronic Splenomegaly [facility] Work Phone: Evaluation note* Diagnosis Thumb pain, left- Primary [facility]* Diagnosis Essential thrombocythemia (HCC)- Primary Essential thrombocythemia [facility]* Diagnosis Itching- Primary Unspecified pruritic disorder Allergic contact dermatitis due to plants, except food Contact dermatitis and other eczema due to plants (except food) [facility]* Diagnosis Rash- Primary Rash and other nonspecific skin eruption Vaginal yeast infection Candidiasis of vulva and vagina [facility]* Diagnosis Acute cough- Primary [facility]* Diagnosis Community acquired pneumonia, unspecified laterality- Primary Acute cough [facility]* Diagnosis Yeast vaginitis- Primary Candidiasis of vulva and vagina [facility]* Diagnosis Essential thrombocythemia (HCC)- Primary Essential thrombocythemia [facility]* Diagnosis Other iron deficiency anemia- Primary Chronic myeloproliferative disorder (HCC) Neoplasm of uncertain behavior of other lymphatic and hematopoietic tissues Essential thrombocythemia (HCC) Essential thrombocythemia [facility]* Diagnosis Upset stomach- Primary Dyspepsia and other specified disorders of function of stomach Diarrhea, unspecified type Body aches Generalized pain Fever, unspecified fever cause Situational anxiety Other anxiety states [facility]* Diagnosis COVID-19- Primary [facility]* Diagnosis [id number] condition- Primary [facility]* Diagnosis Bacterial sinusitis- Primary Unspecified sinusitis (chronic) [facility]* Diagnosis Situational anxiety Other anxiety states [facility]* Diagnosis Intertrigo- Primary Other specified erythematous condition [facility]* Diagnosis Cutaneous candidiasis Candidiasis of skin and nails [facility]* Diagnosis Fever, unspecified fever cause- Primary Cutaneous candidiasis Candidiasis of skin and nails Hypothyroidism, unspecified type [facility]* Diagnosis Upper respiratory tract infection, unspecified type- Primary Situational anxiety Other anxiety states Lymphadenopathy, cervical Enlargement of lymph nodes [facility]* Diagnosis Cutaneous candidiasis Candidiasis of skin and nails [facility]* Diagnosis Rash- Primary Rash and other nonspecific skin eruption [facility]* Diagnosis Gastroesophageal reflux disease without esophagitis Esophageal reflux [facility]* Diagnosis Situational anxiety Other anxiety states [facility]* Diagnosis Elevated alkaline phosphatase level- Primary Other nonspecific abnormal serum enzyme levels Dermatitis Contact dermatitis and other eczema, due to unspecified cause [facility]* Diagnosis Anxiety- Primary Anxiety state, unspecified Anxiety about health Elevated alkaline phosphatase level Other nonspecific abnormal serum enzyme levels Elevated LFTs Other abnormal blood chemistry Elevated blood pressure reading without diagnosis of hypertension [facility]* Diagnosis Anxiety about health- Primary Elevated alkaline phosphatase level Other nonspecific abnormal serum enzyme levels Elevated LFTs Other abnormal blood chemistry Dermatitis Contact dermatitis and other eczema, due to unspecified cause Primary insomnia Persistent disorder of initiating or maintaining sleep Iron deficiency anemia, unspecified iron deficiency anemia type Chronic myeloproliferative disorder (HCC) Neoplasm of uncertain behavior of other lymphatic and hematopoietic tissues [facility]* Diagnosis Urinary urgency- Primary Urgency of urination Viral illness Unspecified viral infection, in conditions classified elsewhere and of unspecified site [facility]* Diagnosis Hypothyroidism, unspecified type [facility]* Diagnosis Vaginal yeast infection- Primary Candidiasis of vulva and vagina [facility]* Diagnosis RLQ abdominal pain- Primary Abdominal pain, right lower quadrant Generalized anxiety disorder Essential hypertension, benign Essential thrombocythemia (HCC) Essential thrombocythemia Chronic myeloproliferative disorder (HCC) Neoplasm of uncertain behavior of other lymphatic and hematopoietic tissues [facility]* Diagnosis Gastritis with hemorrhage, unspecified chronicity, unspecified gastritis type- Primary [facility]* Diagnosis Viral URI with cough- Primary Acute upper respiratory infections of unspecified site [facility]* Diagnosis Nasal congestion- Primary Other diseases of nasal cavity and sinuses Acute cough [facility]* Diagnosis Acute cough [facility]* Diagnosis Bacterial sinusitis- Primary Unspecified sinusitis (chronic) documented [facility]* Diagnosis Encounter for screening mammogram for breast cancer documented [facility]* Diagnosis Sinobronchitis- Primary Unspecified sinusitis (chronic) Elevated blood pressure reading without diagnosis of hypertension Cutaneous candidiasis Candidiasis of skin and nails documented in this encounter [facility] note* Diagnosis Acute cough [facility]* Diagnosis Acute cough [facility]* Diagnosis Sinobronchitis Unspecified sinusitis (chronic) [facility]* Diagnosis Essential hypertension, benign- Primary Sinobronchitis Unspecified sinusitis (chronic) Chest heaviness Other chest pain SHEYLA (generalized anxiety disorder) Generalized anxiety disorder documented in this encounter [facility] note* Diagnosis Cough, unspecified type Chest congestion Other symptoms involving respiratory system and chest [facility]* Diagnosis Sinobronchitis- Primary Unspecified sinusitis (chronic) SHEYLA (generalized anxiety disorder) Generalized anxiety disorder Essential hypertension, benign [facility]* Diagnosis Essential hypertension, benign- Primary Screening for depression Screening for colon cancer Special screening for malignant neoplasms, colon Hypothyroidism, unspecified type Generalized anxiety disorder Adjustment disorder with depressed mood Gastroesophageal reflux disease without esophagitis Esophageal reflux [facility]* Diagnosis Bacterial conjunctivitis- Primary Other conjunctivitis Acute non-recurrent sinusitis, unspecified location Vaginal yeast infection Candidiasis of vulva and vagina [facility]* Diagnosis Dysuria- Primary Renal oncocytoma, left Overactive bladder Hypertonicity of bladder Essential hypertension, benign [facility]* Diagnosis Bacterial conjunctivitis- Primary Other conjunctivitis [facility]* Diagnosis Gastroesophageal reflux disease without esophagitis Esophageal reflux [facility]* Diagnosis Bacterial conjunctivitis- Primary Other conjunctivitis Yeast infection Candidiasis of unspecified site Encounter for routine eye and vision examination documented [facility]* Diagnosis Viral syndrome- Primary Unspecified viral infection, in conditions classified elsewhere and of unspecified site Pain with urination Renal colic [facility] Diagnosis Hypothyroidism, unspecified type- Primary Gastroesophageal reflux disease without esophagitis Esophageal reflux Generalized anxiety disorder Adjustment disorder with depressed mood Essential hypertension, benign Dermatitis Contact dermatitis and other eczema, due to unspecified cause documented in this encounter [facility]* Diagnosis Left arm pain- Primary Pain in limb documented in this encounter [facility]* Diagnosis Sore throat- Primary Acute pharyngitis Sinus congestion Other diseases of nasal cavity and sinuses Yeast infection Candidiasis of unspecified site Dermatitis Contact dermatitis and other eczema, due to unspecified cause Vaginal yeast infection Candidiasis of vulva and vagina [facility] Diagnosis Acute non-recurrent sinusitis, unspecified location- Primary Adjustment disorder with depressed mood Essential hypertension, benign Essential thrombocythemia (HCC) Essential thrombocythemia documented in this encounter [facility]* Diagnosis Rash- Primary Rash and other nonspecific skin eruption documented [facility] this encounter [facility]* Diagnosis Acute non-recurrent sinusitis, unspecified location [facility]* Diagnosis Mast cell activation (HCC)- Primary Essential thrombocythemia (HCC) Essential thrombocythemia Mast cell activation (HCC) documented in this encounter [facility]* Diagnosis Mast cell activation (HCC)- Primary [facility]* Diagnosis Hordeolum externum of left lower eyelid- Primary Hordeolum externum Allergic conjunctivitis, bilateral Other chronic allergic conjunctivitis documented in this encounter [facility]* Diagnosis Acute vaginitis- Primary Vaginitis and vulvovaginitis, unspecified documented in this encounter [facility]* Diagnosis Vaginal discharge- Primary Leukorrhea, not specified as infective Vaginal itching Pruritus of genital organs Vagina itching Pruritus of genital organs documented [facility] Diagnosis Tooth infection- Primary Acute apical periodontitis of pulpal origin Vaginal yeast infection Candidiasis of vulva and vagina documented [facility] this [facility]* Diagnosis Chronic myeloproliferative disorder (HCC)- Primary Neoplasm of uncertain behavior of other lymphatic and hematopoietic tissues [facility] Additional Instructions 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 Work Phone: Reason for referral (narrative)* Diagnostic Procedure Only (Routine) - Pending Review Specialty Diagnoses / Procedures Referred By Lj stewart Referred To Contact [facility] Diagnoses Encounter for screening mammogram for malignant neoplasm of breast Procedures DAPHNE SCREENING SCREENING MAMMOGRAPHY BI 2-VIEW BREAST INC Sue Rodriguez MD [address] [place] [address] [facility] [address] [place] [address] Referral ID Status Reason Start Date Expiration Date Visits Requested Visits Authorized [id number] Pending Review Auto-Generat ed Referral 11/26/2021 12/26/2022 1 1 [facility] for referral (narrative)* Diagnostic Procedure Only (Routine) - Pending Review Specialty Diagnoses / Procedures Referred By Lj stewart Referred To Contact [facility] Diagnoses Visit for screening mammogram Procedures DAPHNE SCREENING W ED SCREENING DIGITAL BREAST TOMOSYNTHESIS BI SCREENING MAMMOGRAPHY BI 2-VIEW BREAST INC Carly Encarnacion APRN.CNP [address] [place] [address] [facility] [address] [place] [address] Referral ID Status Reason Start Date Expiration Date Visits Requested Visits Authorized [id number] Pending Review Auto-Generat ed Referral 12/24/2022 01/23/2024 1 1 [facility] for referral (narrative)* Diagnostic Procedure Only (Routine) - New Request Specialty Diagnoses / Procedures Referred By Lj stewart Referred To Contact [facility] Diagnoses Encounter for screening mammogram for breast cancer Procedures DAPHNE SCREENING W ED SCREENING DIGITAL BREAST TOMOSYNTHESIS BI SCREENING MAMMOGRAPHY BI 2-VIEW BREAST INC CAD Sue Weber MD [address] [place] [address] [facility] [address] [place] [address] Referral ID Status Reason Start Date Expiration Date Visits Requested Visits Authorized [id number] New Request Auto-Generat ed Referral 02/03/2024 03/04/2025 1 1 [facility] for referral (narrative)* Outpatient Procedure (Routine) - New Request Specialty Diagnoses / Procedures Referred By Contac t Referred To [facility] Diagnoses Chest heaviness Procedures ECG COMPLETE ECG ROUTINE ECG W/LEAST 12 LDS W/I&R Carly Lewis, OCEANOGRAPHER PHYSICAL.CLERICAL SUPERVISOR [address] [place] [address] [facility] [address] [place] [address] Referral ID Status Reason Start Date Expiration Date Visits Requested Visits Authorized [id number] New Request Auto-Generat ed Referral 02/15/2024 02/14/2025 1 1 [facility] for referral (narrative)No reason for referral information [facility] Work Phone: Summary Purpose Family History No Family History Records Found Relationship Condition Age at Onset Recorded Date/T sam father Diabetes mellitus Unknown Cardiac disease Unknown Hypertension Unknown grandmother Malignant neoplasm Unknown Advance Directives No Advanced Directives Records FoundDocuments on File Type Date Recorded 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 Advance Directive(s) 04/06/2019 12:02 PM Advance Directive(s) 03/30/2019 12:26 PM Documents on File Type Date Recorded 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 Advance Directive(s) 04/06/2019 12:02 PM Advance Directive(s) 03/30/2019 12:26 PM Advance Directive Response Recorded Date/ Time Advance Directives No January 16, 2014 2:23pm Living Will No February 15, 2021 1:51pm Power of Claim Manager No January 1:51pm Advance Directive Response Recorded Date/ Time Advance Directives No January 16, 2014 2:23pm Living Will No September 24, 2022 7: 25am Power of Claim Manager No September 24, 2022 7:25am Advance Directive Response Recorded Date/ Time Advance Directives No January 16, 2014 2:23pm Living Will No January 16 10:29pm Power of Claim Manager No January 16, 2 023 10:29pm Advance Directive Response Recorded Date/ Time Advance Directives No January 16, 2014 2:23pm Living Will No January 28, 2 023 1:35pm Power of Claim Manager No January 28, 2023 1:35pm Advance Directive Response Recorded Date/ Time Advance Directives No January 16, 2014 2:23pm Living Will No September 09, 2023 8:32pm Power of Claim Manager No September 08 8:32pm Advance Directive Response Recorded Date/ Time Advance Directives No January 16, 2014 2:23pm Living Will No September 29, 2023 5: 57am Power of Claim Manager No September 29, 2023 5:57am Advance Directive Response Recorded Date/ Time Living Will No July 30, 2024 3:31pm Power of Claim Manager No July 30 3:31pm Advance Directives No January 16, 2014 1:23pm Chief Complaint and Reason for Visit Chief Complaint ONC/HEM OVERDUE FOR F/U - LABS SCREENING Reason for Visit Adnexal mass Chronic myeloproliferative disorder Splenomegaly Chronic myeloproliferative disorder Splenomegaly Chief Complaint RIGHT GROIN PAIN Chief Complaint RIGHT GROIN PAIN RIGHT HIP SCREENING OVERDUE F/U LABS ONC/HEM Reason for Visit Greater trochanteric bursitis of right hip Chronic myeloproliferative disorder Iron deficiency Leukocytosis Splenomegaly Thrombocytosis Adnexal mass Chronic myeloproliferative disorder Splenomegaly Chief Complaint RIGHT GROIN PAIN RIGHT HIP SCREENING OVERDUE F/U LABS ONC/HEM RASH, ALLERGIC REACTION Reason for Visit Greater trochanteric bursitis of right hip Chronic myeloproliferative disorder Iron deficiency Leukocytosis Splenomegaly Thrombocytosis Adnexal mass Chronic myeloproliferative disorder Splenomegaly Chief Complaint RIGHT GROIN PAIN RIGHT HIP SCREENING OVERDUE F/U LABS ONC/HEM RASH, ALLERGIC REACTION RASH Reason for Visit Greater trochanteric bursitis of right hip Chronic myeloproliferative disorder Iron deficiency Leukocytosis Splenomegaly Thrombocytosis Adnexal mass Chronic myeloproliferative disorder Splenomegaly Chief Complaint RIGHT HIP SCREENING OVERDUE F/U LABS ONC/HEM RASH, ALLERGIC REACTION RASH calf pain Reason for Visit Greater trochanteric bursitis of right hip Chronic myeloproliferative disorder Iron deficiency Leukocytosis Splenomegaly Thrombocytosis Adnexal mass Chronic myeloproliferative disorder Splenomegaly Chief Complaint ALLERGIC RXN Chief Complaint ALLERGIC RXN allergic reaction Chief Complaint Admit Date Rash May 11, 2024 5:07pm RASH July 30, 2024 3:30 pm Reason for Visit Admit Date Allergic dermatitis May 11, 2024 5:07pm Rash May 11, 2024 5:07pm Health Concerns Infection Onset Date Last Indicated Resolved Time COVID-19 Rule-Out 01/27/2022 01/27/2022 Infection Onset Date Last Indicated Resolved Time COVID-19 Rule-Out 03/30/2022 03/30/2022 Infection Onset Date Last Indicated Resolved Time COVID-19 Confirmed 06/25/2023 06/25/2023 Reason for Referral Specialty Diagnoses / Procedures Referred By Contac t Referred To Contact General Surgery Diagnoses Essential thrombocythemia (HCC) Procedures CONSULT TO GENERAL SURGERY OFFICE/OUTPATIENT [facility] 60-[place] [address] [place] [address] Referral ID Status Reason Start Date Expiration Date Visits Requested Visits Authorized [id number] Authorized PCP Requested Referral 01/15/2023 01/15/2024 1 1 Specialty Diagnoses / Procedures Referred By Contac t Referred To Contact Dermatology Diagnoses Rash Procedures CONSULT TO DERMATOLOGY Sue Weber MD [address] [place] [address] Referral ID Status Reason Start Date Expiration Date Visits Requested Visits Authorized [id number] Ref Not Required PCP Requested Referral 09/10/2023 09/09/2024 1 1 Specialty Diagnoses / Procedures Referred By Contac t Referred To Contact Diagnoses Dermatitis Carly Lewis, LEIGH.CLERICAL SUPERVISOR [address] [place] [address] Referral ID Status Reason Start Date Expiration Date V isits Requested Visits Authorized [id number] Pending Review 1 1 Specialty Diagnoses / Procedures Referred By Contac t Referred To Contact Optometry Diagnoses Encounter for routine eye and vision examination Procedures CONSULT TO OPTOMETRY OFFICE/OUTPATIENT [facility] 60 MINUTES Sue Weber MD [address] [place] [address] Referral ID Status Reason Start Date Expiration Date Visits Requested Visits Authorized [id number] Authorized PCP Requested Referral 04/22/2025 1 1 Additional Source Comments INFORMATION SOURCE (unrecogn ized section and content) DATE CREATED AUTHOR 11/17/2017 [facility] ([place]) DATE CREATED AUTHOR AUTHOR'S ORGANIZ ATION 11/18/2017 [facility] DATE CREATED AUTHOR AUTHOR'S ORGANIZ ATION 08/12/2024 [facility] DATE CREATED AUTHOR AUTHOR'S ORGANIZ ATION 08/23/2024 [facility] DATE CREATED AUTHOR AUTHOR'S ORGANIZ ATION 11/06/2024 [facility] Source Comments (unrecognize d section and content) In the event this informatio n is protected by the Federal Confidentiality of Alcohol and Drug Abuse Patient Records regulations: The Federal rules restrict any use of the information to criminally investigate or prosecute any alcohol or drug abuse patient.[facility] the event this information is protected by the Federal Confidentiality of Alcohol and Drug Abuse Patient Records regulations: The Federal rules restrict any use of the information to criminally investigate or prosecute any alcohol or drug abuse patient.[facility] the event this information is protected by the Federal Confidentiality of Alcohol and Drug Abuse Patient Records regulations: The Federal rules restrict any use of the information to criminally investigate or prosecute any alcohol or drug abuse patient.[facility] the event this information is protected by the Federal Confidentiality of Alcohol and Drug Abuse Patient Records regulations: The Federal rules restrict any use of the information to criminally investigate or prosecute any alcohol or drug abuse patient.[facility] the event this information is protected by the Federal Confidentiality of Alcohol and Drug Abuse Patient Records regulations: The Federal rules restrict any use of the information to criminally investigate or prosecute any alcohol or drug abuse patient.[facility] the event this information is protected by the Federal Confidentiality of Alcohol and Drug Abuse Patient Records regulations: The Federal rules restrict any use of the information to criminally investigate or prosecute any alcohol or drug abuse patient.[facility] the event this information is protected by the Federal Confidentiality of Alcohol and Drug Abuse Patient Records regulations: The Federal rules restrict any use of the information to criminally investigate or prosecute any alcohol or drug abuse patient.[facility] the event this information is protected by the Federal Confidentiality of Alcohol and Drug Abuse Patient Records regulations: The Federal rules restrict any use of the information to criminally investigate or prosecute any alcohol or drug abuse patient.[facility] the event this information is protected by the Federal Confidentiality of Alcohol and Drug Abuse Patient Records regulations: The Federal rules restrict any use of the information to criminally investigate or prosecute any alcohol or drug abuse patient.[facility] Hospital[facility] the event this information is protected by the Federal Confidentiality of Alcohol and Drug Abuse Patient Records regulations: The Federal rules restrict any use of the information to criminally investigate or prosecute any alcohol or drug abuse patient.[facility] Hospital[facility] the event this information is protected by the Federal Confidentiality of Alcohol and Drug Abuse Patient Records regulations: The Federal rules restrict any use of the information to criminally investigate or prosecute any alcohol or drug abuse patient.[facility] the event this information is protected by the Federal Confidentiality of Alcohol and Drug Abuse Patient Records regulations: The Federal rules restrict any use of the information to criminally investigate or prosecute any alcohol or drug abuse patient.[facility] the event this information is protected by the Federal Confidentiality of Alcohol and Drug Abuse Patient Records regulations: The Federal rules restrict any use of the information to criminally investigate or prosecute any alcohol or drug abuse patient.[facility] Hospital[facility] the event this information is protected by the Federal Confidentiality of Alcohol and Drug Abuse Patient Records regulations: The Federal rules restrict any use of the information to criminally investigate or prosecute any alcohol or drug abuse patient.[facility] Hospital[facility] the event this information is protected by the Federal Confidentiality of Alcohol and Drug Abuse Patient Records regulations: The Federal rules restrict any use of the information to criminally investigate or prosecute any alcohol or drug abuse patient.[facility] Hospital[facility] the event this information is protected by the Federal Confidentiality of Alcohol and Drug Abuse Patient Records regulations: The Federal rules restrict any use of the information to criminally investigate or prosecute any alcohol or drug abuse patient.[facility] HospitalIn the event this information is protected by the Federal Confidentiality of Alcohol and Drug Abuse Patient Records regulations: The Federal rules restrict any use of the information to criminally investigate or prosecute any alcohol or drug abuse patient.[facility] HospitalIn the event this information is protected by the Federal Confidentiality of Alcohol and Drug Abuse Patient Records regulations: The Federal rules restrict any use of the information to criminally investigate or prosecute any alcohol or drug abuse patient.[facility] HospitalIn the event this information is protected by the Federal Confidentiality of Alcohol and Drug Abuse Patient Records regulations: The Federal rules restrict any use of the information to criminally investigate or prosecute any alcohol or drug abuse patient.[facility] HospitalIn the event this information is protected by the Federal Confidentiality of Alcohol and Drug Abuse Patient Records regulations: The Federal rules restrict any use of the information to criminally investigate or prosecute any alcohol or drug abuse patient.[facility] HospitalIn the event this information is protected by the Federal Confidentiality of Alcohol and Drug Abuse Patient Records regulations: The Federal rules restrict any use of the information to criminally investigate or prosecute any alcohol or drug abuse patient.[facility] HospitalIn the event this information is protected by the Federal Confidentiality of Alcohol and Drug Abuse Patient Records regulations: The Federal rules restrict any use of the information to criminally investigate or prosecute any alcohol or drug abuse patient.[facility] HospitalIn the event this information is protected by the Federal Confidentiality of Alcohol and Drug Abuse Patient Records regulations: The Federal rules restrict any use of the information to criminally investigate or prosecute any alcohol or drug abuse patient.[facility] Hospital[facility] the event this information is protected by the Federal Confidentiality of Alcohol and Drug Abuse Patient Records regulations: The Federal rules restrict any use of the information to criminally investigate or prosecute any alcohol or drug abuse patient.[facility] HospitalIn the event this information is protected by the Federal Confidentiality of Alcohol and Drug Abuse Patient Records regulations: The Federal rules restrict any use of the information to criminally investigate or prosecute any alcohol or drug abuse patient.[facility] HospitalIn the event this information is protected by the Federal Confidentiality of Alcohol and Drug Abuse Patient Records regulations: The Federal rules restrict any use of the information to criminally investigate or prosecute any alcohol or drug abuse patient.[facility] HospitalIn the event this information is protected by the Federal Confidentiality of Alcohol and Drug Abuse Patient Records regulations: The Federal rules restrict any use of the information to criminally investigate or prosecute any alcohol or drug abuse patient.[facility] HospitalIn the event this information is protected by the Federal Confidentiality of Alcohol and Drug Abuse Patient Records regulations: The Federal rules restrict any use of the information to criminally investigate or prosecute any alcohol or drug abuse patient.[facility] HospitalIn the event this information is protected by the Federal Confidentiality of Alcohol and Drug Abuse Patient Records regulations: The Federal rules restrict any use of the information to criminally investigate or prosecute any alcohol or drug abuse patient.[facility] HospitalIn the event this information is protected by the Federal Confidentiality of Alcohol and Drug Abuse Patient Records regulations: The Federal rules restrict any use of the information to criminally investigate or prosecute any alcohol or drug abuse patient.[facility] HospitalIn the event this information is protected by the Federal Confidentiality of Alcohol and Drug Abuse Patient Records regulations: The Federal rules restrict any use of the information to criminally investigate or prosecute any alcohol or drug abuse patient.[facility] HospitalIn the event this information is protected by the Federal Confidentiality of Alcohol and Drug Abuse Patient Records regulations: The Federal rules restrict any use of the information to criminally investigate or prosecute any alcohol or drug abuse patient.[facility] HospitalIn the event this information is protected by the Federal Confidentiality of Alcohol and Drug Abuse Patient Records regulations: The Federal rules restrict any use of the information to criminally investigate or prosecute any alcohol or drug abuse patient.[facility] HospitalIn the event this information is protected by the Federal Confidentiality of Alcohol and Drug Abuse Patient Records regulations: The Federal rules restrict any use of the information to criminally investigate or prosecute any alcohol or drug abuse patient.[facility] HospitalIn the event this information is protected by the Federal Confidentiality of Alcohol and Drug Abuse Patient Records regulations: The Federal rules restrict any use of the information to criminally investigate or prosecute any alcohol or drug abuse patient.[facility] HospitalIn the event this information is protected by the Federal Confidentiality of Alcohol and Drug Abuse Patient Records regulations: The Federal rules restrict any use of the information to criminally investigate or prosecute any alcohol or drug abuse patient.[facility] HospitalIn the event this information is protected by the Federal Confidentiality of Alcohol and Drug Abuse Patient Records regulations: The Federal rules restrict any use of the information to criminally investigate or prosecute any alcohol or drug abuse patient.[facility] HospitalIn the event this information is protected by the Federal Confidentiality of Alcohol and Drug Abuse Patient Records regulations: The Federal rules restrict any use of the information to criminally investigate or prosecute any alcohol or drug abuse patient.[facility] HospitalIn the event this information is protected by the Federal Confidentiality of Alcohol and Drug Abuse Patient Records regulations: The Federal rules restrict any use of the information to criminally investigate or prosecute any alcohol or drug abuse patient.[facility] HospitalIn the event this information is protected by the Federal Confidentiality of Alcohol and Drug Abuse Patient Records regulations: The Federal rules restrict any use of the information to criminally investigate or prosecute any alcohol or drug abuse patient.[facility] HospitalIn the event this information is protected by the Federal Confidentiality of Alcohol and Drug Abuse Patient Records regulations: The Federal rules restrict any use of the information to criminally investigate or prosecute any alcohol or drug abuse patient.[facility] HospitalIn the event this information is protected by the Federal Confidentiality of Alcohol and Drug Abuse Patient Records regulations: The Federal rules restrict any use of the information to criminally investigate or prosecute any alcohol or drug abuse patient.[facility] HospitalIn the event this information is protected by the Federal Confidentiality of Alcohol and Drug Abuse Patient Records regulations: The Federal rules restrict any use of the information to criminally investigate or prosecute any alcohol or drug abuse patient.[facility] HospitalIn the event this information is protected by the Federal Confidentiality of Alcohol and Drug Abuse Patient Records regulations: The Federal rules restrict any use of the information to criminally investigate or prosecute any alcohol or drug abuse patient.[facility] HospitalIn the event this information is protected by the Federal Confidentiality of Alcohol and Drug Abuse Patient Records regulations: The Federal rules restrict any use of the information to criminally investigate or prosecute any alcohol or drug abuse patient.[facility] HospitalIn the event this information is protected by the Federal Confidentiality of Alcohol and Drug Abuse Patient Records regulations: The Federal rules restrict any use of the information to criminally investigate or prosecute any alcohol or drug abuse patient.[facility] HospitalIn the event this information is protected by the Federal Confidentiality of Alcohol and Drug Abuse Patient Records regulations: The Federal rules restrict any use of the information to criminally investigate or prosecute any alcohol or drug abuse patient.[facility] HospitalIn the event this information is protected by the Federal Confidentiality of Alcohol and Drug Abuse Patient Records regulations: The Federal rules restrict any use of the information to criminally investigate or prosecute any alcohol or drug abuse patient.[facility] HospitalIn the event this information is protected by the Federal Confidentiality of Alcohol and Drug Abuse Patient Records regulations: The Federal rules restrict any use of the information to criminally investigate or prosecute any alcohol or drug abuse patient.[facility] HospitalIn the event this information is protected by the Federal Confidentiality of Alcohol and Drug Abuse Patient Records regulations: The Federal rules restrict any use of the information to criminally investigate or prosecute any alcohol or drug abuse patient.[facility] HospitalIn the event this information is protected by the Federal Confidentiality of Alcohol and Drug Abuse Patient Records regulations: The Federal rules restrict any use of the information to criminally investigate or prosecute any alcohol or drug abuse patient.[facility] HospitalIn the event this information is protected by the Federal Confidentiality of Alcohol and Drug Abuse Patient Records regulations: The Federal rules restrict any use of the information to criminally investigate or prosecute any alcohol or drug abuse patient.[facility] HospitalIn the event this information is protected by the Federal Confidentiality of Alcohol and Drug Abuse Patient Records regulations: The Federal rules restrict any use of the information to criminally investigate or prosecute any alcohol or drug abuse patient.[facility] HospitalIn the event this information is protected by the Federal Confidentiality of Alcohol and Drug Abuse Patient Records regulations: The Federal rules restrict any use of the information to criminally investigate or prosecute any alcohol or drug abuse patient.[facility] HospitalIn the event this information is protected by the Federal Confidentiality of Alcohol and Drug Abuse Patient Records regulations: The Federal rules restrict any use of the information to criminally investigate or prosecute any alcohol or drug abuse patient.[facility] HospitalIn the event this information is protected by the Federal Confidentiality of Alcohol and Drug Abuse Patient Records regulations: The Federal rules restrict any use of the information to criminally investigate or prosecute any alcohol or drug abuse patient.[facility] HospitalIn the event this information is protected by the Federal Confidentiality of Alcohol and Drug Abuse Patient Records regulations: The Federal rules restrict any use of the information to criminally investigate or prosecute any alcohol or drug abuse patient.[facility] HospitalIn the event this information is protected by the Federal Confidentiality of Alcohol and Drug Abuse Patient Records regulations: The Federal rules restrict any use of the information to criminally investigate or prosecute any alcohol or drug abuse patient.[facility] HospitalIn the event this information is protected by the Federal Confidentiality of Alcohol and Drug Abuse Patient Records regulations: The Federal rules restrict any use of the information to criminally investigate or prosecute any alcohol or drug abuse patient.[facility] HospitalIn the event this information is protected by the Federal Confidentiality of Alcohol and Drug Abuse Patient Records regulations: The Federal rules restrict any use of the information to criminally investigate or prosecute any alcohol or drug abuse patient.[facility] HospitalIn the event this information is protected by the Federal Confidentiality of Alcohol and Drug Abuse Patient Records regulations: The Federal rules restrict any use of the information to criminally investigate or prosecute any alcohol or drug abuse patient.[facility] HospitalIn the event this information is protected by the Federal Confidentiality of Alcohol and Drug Abuse Patient Records regulations: The Federal rules restrict any use of the information to criminally investigate or prosecute any alcohol or drug abuse patient.[facility] HospitalIn the event this information is protected by the Federal Confidentiality of Alcohol and Drug Abuse Patient Records regulations: The Federal rules restrict any use of the information to criminally investigate or prosecute any alcohol or drug abuse patient.[facility] HospitalIn the event this information is protected by the Federal Confidentiality of Alcohol and Drug Abuse Patient Records regulations: The Federal rules restrict any use of the information to criminally investigate or prosecute any alcohol or drug abuse patient.[facility] HospitalIn the event this information is protected by the Federal Confidentiality of Alcohol and Drug Abuse Patient Records regulations: The Federal rules restrict any use of the information to criminally investigate or prosecute any alcohol or drug abuse patient.[facility] HospitalIn the event this information is protected by the Federal Confidentiality of Alcohol and Drug Abuse Patient Records regulations: The Federal rules restrict any use of the information to criminally investigate or prosecute any alcohol or drug abuse patient.[facility] HospitalIn the event this information is protected by the Federal Confidentiality of Alcohol and Drug Abuse Patient Records regulations: The Federal rules restrict any use of the information to criminally investigate or prosecute any alcohol or drug abuse patient.[facility] HospitalIn the event this information is protected by the Federal Confidentiality of Alcohol and Drug Abuse Patient Records regulations: The Federal rules restrict any use of the information to criminally investigate or prosecute any alcohol or drug abuse patient.[facility] HospitalIn the event this information is protected by the Federal Confidentiality of Alcohol and Drug Abuse Patient Records regulations: The Federal rules restrict any use of the information to criminally investigate or prosecute any alcohol or drug abuse patient.[facility] HospitalIn the event this information is protected by the Federal Confidentiality of Alcohol and Drug Abuse Patient Records regulations: The Federal rules restrict any use of the information to criminally investigate or prosecute any alcohol or drug abuse patient.[facility] HospitalIn the event this information is protected by the Federal Confidentiality of Alcohol and Drug Abuse Patient Records regulations: The Federal rules restrict any use of the information to criminally investigate or prosecute any alcohol or drug abuse patient.[facility] HospitalIn the event this information is protected by the Federal Confidentiality of Alcohol and Drug Abuse Patient Records regulations: The Federal rules restrict any use of the information to criminally investigate or prosecute any alcohol or drug abuse patient.[facility] HospitalIn the event this information is protected by the Federal Confidentiality of Alcohol and Drug Abuse Patient Records regulations: The Federal rules restrict any use of the information to criminally investigate or prosecute any alcohol or drug abuse patient.[facility] HospitalIn the event this information is protected by the Federal Confidentiality of Alcohol and Drug Abuse Patient Records regulations: The Federal rules restrict any use of the information to criminally investigate or prosecute any alcohol or drug abuse patient.[facility] HospitalIn the event this information is protected by the Federal Confidentiality of Alcohol and Drug Abuse Patient Records regulations: The Federal rules restrict any use of the information to criminally investigate or prosecute any alcohol or drug abuse patient.[facility] HospitalIn the event this information is protected by the Federal Confidentiality of Alcohol and Drug Abuse Patient Records regulations: The Federal rules restrict any use of the information to criminally investigate or prosecute any alcohol or drug abuse patient.[facility] HospitalIn the event this information is protected by the Federal Confidentiality of Alcohol and Drug Abuse Patient Records regulations: The Federal rules restrict any use of the information to criminally investigate or prosecute any alcohol or drug abuse patient.[facility] HospitalIn the event this information is protected by the Federal Confidentiality of Alcohol and Drug Abuse Patient Records regulations: The Federal rules restrict any use of the information to criminally investigate or prosecute any alcohol or drug abuse patient.[facility] HospitalIn the event this information is protected by the Federal Confidentiality of Alcohol and Drug Abuse Patient Records regulations: The Federal rules restrict any use of the information to criminally investigate or prosecute any alcohol or drug abuse patient.[facility] HospitalIn the event this information is protected by the Federal Confidentiality of Alcohol and Drug Abuse Patient Records regulations: The Federal rules restrict any use of the information to criminally investigate or prosecute any alcohol or drug abuse patient.[facility] HospitalIn the event this information is protected by the Federal Confidentiality of Alcohol and Drug Abuse Patient Records regulations: The Federal rules restrict any use of the information to criminally investigate or prosecute any alcohol or drug abuse patient.[facility] HospitalIn the event this information is protected by the Federal Confidentiality of Alcohol and Drug Abuse Patient Records regulations: The Federal rules restrict any use of the information to criminally investigate or prosecute any alcohol or drug abuse patient.[facility] HospitalIn the event this information is protected by the Federal Confidentiality of Alcohol and Drug Abuse Patient Records regulations: The Federal rules restrict any use of the information to criminally investigate or prosecute any alcohol or drug abuse patient.[facility] HospitalIn the event this information is protected by the Federal Confidentiality of Alcohol and Drug Abuse Patient Records regulations: The Federal rules restrict any use of the information to criminally investigate or prosecute any alcohol or drug abuse patient.[facility] HospitalIn the event this information is protected by the Federal Confidentiality of Alcohol and Drug Abuse Patient Records regulations: The Federal rules restrict any use of the information to criminally investigate or prosecute any alcohol or drug abuse patient.[facility] HospitalIn the event this information is protected by the Federal Confidentiality of Alcohol and Drug Abuse Patient Records regulations: The Federal rules restrict any use of the information to criminally investigate or prosecute any alcohol or drug abuse patient.[facility] HospitalIn the event this information is protected by the Federal Confidentiality of Alcohol and Drug Abuse Patient Records regulations: The Federal rules restrict any use of the information to criminally investigate or prosecute any alcohol or drug abuse patient.[facility] HospitalIn the event this information is protected by the Federal Confidentiality of Alcohol and Drug Abuse Patient Records regulations: The Federal rules restrict any use of the information to criminally investigate or prosecute any alcohol or drug abuse patient.[facility] HospitalIn the event this information is protected by the Federal Confidentiality of Alcohol and Drug Abuse Patient Records regulations: The Federal rules restrict any use of the information to criminally investigate or prosecute any alcohol or drug abuse patient.[facility] HospitalIn the event this information is protected by the Federal Confidentiality of Alcohol and Drug Abuse Patient Records regulations: The Federal rules restrict any use of the information to criminally investigate or prosecute any alcohol or drug abuse patient.[facility] HospitalIn the event this information is protected by the Federal Confidentiality of Alcohol and Drug Abuse Patient Records regulations: The Federal rules restrict any use of the information to criminally investigate or prosecute any alcohol or drug abuse patient.[facility] HospitalIn the event this information is protected by the Federal Confidentiality of Alcohol and Drug Abuse Patient Records regulations: The Federal rules restrict any use of the information to criminally investigate or prosecute any alcohol or drug abuse patient.[facility] HospitalIn the event this information is protected by the Federal Confidentiality of Alcohol and Drug Abuse Patient Records regulations: The Federal rules restrict any use of the information to criminally investigate or prosecute any alcohol or drug abuse patient.[facility] HospitalIn the event this information is protected by the Federal Confidentiality of Alcohol and Drug Abuse Patient Records regulations: The Federal rules restrict any use of the information to criminally investigate or prosecute any alcohol or drug abuse patient.[facility] HospitalIn the event this information is protected by the Federal Confidentiality of Alcohol and Drug Abuse Patient Records regulations: The Federal rules restrict any use of the information to criminally investigate or prosecute any alcohol or drug abuse patient.[facility] HospitalIn the event this information is protected by the Federal Confidentiality of Alcohol and Drug Abuse Patient Records regulations: The Federal rules restrict any use of the information to criminally investigate or prosecute any alcohol or drug abuse patient.[facility] HospitalIn the event this information is protected by the Federal Confidentiality of Alcohol and Drug Abuse Patient Records regulations: The Federal rules restrict any use of the information to criminally investigate or prosecute any alcohol or drug abuse patient.[facility] HospitalIn the event this information is protected by the Federal Confidentiality of Alcohol and Drug Abuse Patient Records regulations: The Federal rules restrict any use of the information to criminally investigate or prosecute any alcohol or drug abuse patient.[facility] HospitalIn the event this information is protected by the Federal Confidentiality of Alcohol and Drug Abuse Patient Records regulations: The Federal rules restrict any use of the information to criminally investigate or prosecute any alcohol or drug abuse patient.[facility] HospitalIn the event this information is protected by the Federal Confidentiality of Alcohol and Drug Abuse Patient Records regulations: The Federal rules restrict any use of the information to criminally investigate or prosecute any alcohol or drug abuse patient.[facility] HospitalIn the event this information is protected by the Federal Confidentiality of Alcohol and Drug Abuse Patient Records regulations: The Federal rules restrict any use of the information to criminally investigate or prosecute any alcohol or drug abuse patient.[facility] HospitalIn the event this information is protected by the Federal Confidentiality of Alcohol and Drug Abuse Patient Records regulations: The Federal rules restrict any use of the information to criminally investigate or prosecute any alcohol or drug abuse patient.[facility] HospitalIn the event this information is protected by the Federal Confidentiality of Alcohol and Drug Abuse Patient Records regulations: The Federal rules restrict any use of the information to criminally investigate or prosecute any alcohol or drug abuse patient.[facility] HospitalIn the event this information is protected by the Federal Confidentiality of Alcohol and Drug Abuse Patient Records regulations: The Federal rules restrict any use of the information to criminally investigate or prosecute any alcohol or drug abuse patient.[facility] HospitalIn the event this information is protected by the Federal Confidentiality of Alcohol and Drug Abuse Patient Records regulations: The Federal rules restrict any use of the information to criminally investigate or prosecute any alcohol or drug abuse patient.[facility] HospitalIn the event this information is protected by the Federal Confidentiality of Alcohol and Drug Abuse Patient Records regulations: The Federal rules restrict any use of the information to criminally investigate or prosecute any alcohol or drug abuse patient.[facility] HospitalIn the event this information is protected by the Federal Confidentiality of Alcohol and Drug Abuse Patient Records regulations: The Federal rules restrict any use of the information to criminally investigate or prosecute any alcohol or drug abuse patient.[facility] HospitalIn the event this information is protected by the Federal Confidentiality of Alcohol and Drug Abuse Patient Records regulations: The Federal rules restrict any use of the information to criminally investigate or prosecute any alcohol or drug abuse patient.[facility] HospitalIn the event this information is protected by the Federal Confidentiality of Alcohol and Drug Abuse Patient Records regulations: The Federal rules restrict any use of the information to criminally investigate or prosecute any alcohol or drug abuse patient.[facility] HospitalIn the event this information is protected by the Federal Confidentiality of Alcohol and Drug Abuse Patient Records regulations: The Federal rules restrict any use of the information to criminally investigate or prosecute any alcohol or drug abuse patient.[facility] HospitalIn the event this information is protected by the Federal Confidentiality of Alcohol and Drug Abuse Patient Records regulations: The Federal rules restrict any use of the information to criminally investigate or prosecute any alcohol or drug abuse patient.[facility] HospitalIn the event this information is protected by the Federal Confidentiality of Alcohol and Drug Abuse Patient Records regulations: The Federal rules restrict any use of the information to criminally investigate or prosecute any alcohol or drug abuse patient.[facility] HospitalIn the event this information is protected by the Federal Confidentiality of Alcohol and Drug Abuse Patient Records regulations: The Federal rules restrict any use of the information to criminally investigate or prosecute any alcohol or drug abuse patient.[facility] HospitalIn the event this information is protected by the Federal Confidentiality of Alcohol and Drug Abuse Patient Records regulations: The Federal rules restrict any use of the information to criminally investigate or prosecute any alcohol or drug abuse patient.[facility] HospitalIn the event this information is protected by the Federal Confidentiality of Alcohol and Drug Abuse Patient Records regulations: The Federal rules restrict any use of the information to criminally investigate or prosecute any alcohol or drug abuse patient.[facility] HospitalIn the event this information is protected by the Federal Confidentiality of Alcohol and Drug Abuse Patient Records regulations: The Federal rules restrict any use of the information to criminally investigate or prosecute any alcohol or drug abuse patient.[facility] HospitalIn the event this information is protected by the Federal Confidentiality of Alcohol and Drug Abuse Patient Records regulations: The Federal rules restrict any use of the information to criminally investigate or prosecute any alcohol or drug abuse patient.[facility] HospitalIn the event this information is protected by the Federal Confidentiality of Alcohol and Drug Abuse Patient Records regulations: The Federal rules restrict any use of the information to criminally investigate or prosecute any alcohol or drug abuse patient.[facility] HospitalIn the event this information is protected by the Federal Confidentiality of Alcohol and Drug Abuse Patient Records regulations: The Federal rules restrict any use of the information to criminally investigate or prosecute any alcohol or drug abuse patient.[facility] HospitalIn the event this information is protected by the Federal Confidentiality of Alcohol and Drug Abuse Patient Records regulations: The Federal rules restrict any use of the information to criminally investigate or prosecute any alcohol or drug abuse patient.[facility] HospitalIn the event this information is protected by the Federal Confidentiality of Alcohol and Drug Abuse Patient Records regulations: The Federal rules restrict any use of the information to criminally investigate or prosecute any alcohol or drug abuse patient.[facility] HospitalIn the event this information is protected by the Federal Confidentiality of Alcohol and Drug Abuse Patient Records regulations: The Federal rules restrict any use of the information to criminally investigate or prosecute any alcohol or drug abuse patient.[facility] HospitalIn the event this information is protected by the Federal Confidentiality of Alcohol and Drug Abuse Patient Records regulations: The Federal rules restrict any use of the information to criminally investigate or prosecute any alcohol or drug abuse patient.[facility] Reason for Visit (unrecogniz ed section and content) Reason Onset Date Comments Refill Request 08/20/2021 Reason Comments Refill Request Reason Onset Date Comments Refill Request 10/22/2021 Reason Comments Sinus Problem started a couple wee ks ago low grade fever nothing over 100, sneezing,pressure behind eyes Reason Comments Patient Update Appointment Reason Comments Sleep Problem Reason Comments Medication Problem Reason Comments Results labs Reason Comments Follow Up Reason Comments Sinus Problem Right ear pain, snee zing, drainage x 4 days Reason Comments Acute Visit L ear pain; was dana alethea on 01/27/22 for R ear infection; finished atb a couple weeks ago Reason Comments UTI Burning, frequency, pressure x3 days Reason Comments Sinus Problem With congestion x 3 days Reason Comments F/U 3 Month Reason Comments URI Reason Onset Date Comments Refill Request 05/20/2022 Reason Comments Illness Reason Comments Cough Reason Comments Patient Update Reason Comments Hospital F/U Reason Onset Date Comments Refill Request 10/27/2022 Reason Comments New Pain Specialty Diagnoses / Procedures Referred By Contabdulkadir t Referred To Contact Orthopedics Diagnoses Acute pain of right hip Procedures CONSULT TO ORTHOPAEDICS OFFICE/OUTPATIENT NEW HIGH MDM 60-74 MINUTES 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 Reason Comments outside imaging Reason Comments Acute Visit Burnt top of L thumb 10 days ago, continues to have pain/swelling Reason Comments Appointment Reason Comments New Patient Re-establishing here , pt used to see Dr Pineda. Reason Comments Rash Rash on legs and fac e x 1 day Reason Comments Abdominal Pain Reason Comments ER F/U Reason Comments Head Congestion x 5 days, fatigue Reason Comments Benefits Investigation Reason Comments pt update on illness/work excuse needed Reason Comments Results/patient update Reason Comments Appointment Patient Update Reason Comments Established Patient Reason Comments Diarrhea Body aches Reason Comments Results Reason Comments Sore Throat Still not feeling we ll from having COVID Reason Onset Date Comments Refill Request 07/27/2023 Reason Comments Rash itching, under breas t, waistline x 4 days Reason Comments Recheck Follow up from [facility]- rash/swelling has resolved; still has intermittent fever's Reason Comments Follow Up Weak, chills, fatigu e, sore throat and low grade fever Reason Comments Rash needs a consult plac ed for Derm at [facility] Reason Onset Date Comments Refill Request 10/01/2023 Reason Comments ER F/U Reason Comments Anxiety Reason Comments F/U 1 month Reason Comments Urinary Problem Frequency,urgency, b urning. Low grade x 3 days Sinus Problem Nasals congestion, r unny nose, sinus pessurex 1 days Reason Comments Medication Request Reason Onset Date Comments Refill Request 12/11/2023 Reason Onset Date Comments Refill Request 12/30/2023 Reason Comments Hospital Follow Up Reason Onset Date Comments Refill Request 01/15/2024 Reason Comments GI Upset Nausea and Constipat ion Reason Onset Date Comments Refill Request 01/27/2024 Reason Comments Sinus Problem Reason Comments Fever Head and chest conge stion, cough sneezing, chest tightness, drainage, x 3 daysEyes burning x 1 week Reason Comments Recheck Follow up- URI Reason Comments Recheck 1 week follow up Reason Comments Palpitations Reason Comments Recheck 2 day follow up; did not take metoprolol today Reason Comments [facility] Reason Comments UTI Reason Comments Eye Problem Left eye, swelling, redness, irritated, itching x 1 Reason Onset Date Comments Refill Request 04/22/2024 Reason Comments Rash Eye swelling Reason Comments Fever Chills, upset stomac h, nausea Reason Onset Date Comments Refill Request 05/10/2024 Reason Comments Arm Pain Left upper arm Reason Comments Sore Throat Cold symptoms Reason Comments ER F/U Rash Reason Onset Date Comments Refill Request 08/10/2024 Reason Comments New Patient Reason Comments AVS 08/22 Reason Comments Established Patient Reason Comments Eye Problem Red under right eye x 3 days. Is getting redness under lefteye also Reason Comments Vaginal Problem Reason Comments Illness Fever, Nausea Reason Onset Date Comments Refill Request 10/31/2024 Reason Comments avs 08/31 Care Teams (unrecognized sec tion and content) Service Desk Technician Relationship Specialty Start Date End Date Sue Weber MD [address] [facility] [place] [address] PCP - General Family Practice 01/14/21 Service Desk Technician Relationship Specialty Start Date End Date Sue Weber MD [address] [facility] [address] PCP - General Family Practice 01/14/21 Service Desk Technician Relationship Specialty Start Date End Date Sue Weber MD [address] [facility] [address] PCP - General Family Practice 01/14/21 Service Desk Technician Relationship Specialty Start Date End Date Sue Weber MD [address] [facility] [address] PCP - General Family Practice 01/14/21 Service Desk Technician Relationship Specialty Start Date End Date Sue Weber MD [address] [facility] [address] PCP - General Family Practice 01/14/21 Service Desk Technician Relationship Specialty Start Date End Date Sue Weber MD [address] [facility] [address] PCP - General Family Practice 01/14/21 Service Desk Technician Relationship Specialty Start Date End Date Sue Weber MD [address] [facility] [address] PCP - General Family Practice 01/14/21 Service Desk Technician Relationship Specialty Start Date End Date Sue Weber MD [facility] [place] [address] PCP - General Family Practice 01/14/21 Service Desk Technician Relationship Specialty Start Date End Date Sue Weber MD [address] [facility] [address] PCP - General Family Practice 01/14/21 Service Desk Technician Relationship Specialty Start Date End Date Sue Weber MD [address] [facility] [address] PCP - General Family Practice 01/14/21 Service Desk Technician Relationship Specialty Start Date End Date Sue Weber MD [address] [facility] [address] PCP - General Family Practice 01/14/21 Service Desk Technician Relationship Specialty Start Date End Date Sue Weber MD [address] [facility] [address] PCP - General Family Medicine 01/14/21 Service Desk Technician Relationship Specialty Start Date End Date Sue Weber MD [address] [facility] [address] PCP - General Family Medicine 01/14/21 Service Desk Technician Relationship Specialty Start Date End Date Sue Weber MD [address] [facility] [address] PCP - General Family Medicine 01/14/21 Service Desk Technician Relationship Specialty Start Date End Date Sue Weber MD [address] [facility] [address] PCP - General Family Medicine 01/14/21 Service Desk Technician Relationship Specialty Start Date End Date Sue Weber MD [address] [facility] [address] PCP - General Family Medicine 01/14/21 Service Desk Technician Relationship Specialty Start Date End Date Sue Weber MD [address] [place] [address] PCP - General Family Medicine 01/14/21 Service Desk Technician Relationship Specialty Start Date End Date Sue Weber MD [address] [place] [address] PCP - General Family Medicine 01/14/21 Service Desk Technician Relationship Specialty Start Date End Date Sue Weber MD [address] [place] [address] PCP - General Family Medicine 01/14/21 Team Status: Active Member Role Status Dates Dr. Mae Morton III, MD Family Provider Active Dr. Sue Weber MD Primary Care Provider Active Team Status: Inactive Member Role Status Dates Dr. uSe Weber MD Primary Care Provider Active Dr. Niels Boudreaux DO Emergency Provider Active Service Desk Technician Relationship Specialty Start Date End Date Sue Weber MD [address] [place] [address] PCP - General Family Medicine 01/14/21 Service Desk Technician Relationship Specialty Start Date End Date Sue Weber MD [address] [place] [address] PCP - General Family Medicine 01/14/21 Service Desk Technician Relationship Specialty Start Date End Date Sue Weber MD [address] [place] [address] PCP - General Family Medicine 01/14/21 Service Desk Technician Relationship Specialty Start Date End Date Sue Weber MD [address] [place] [address] PCP - General Family Medicine 01/14/21 Team Status: Inactive Member Role Status Dates Dr. Sue Weber MD Primary Care Provider, Referr ing Provider Active Madhu Wayt PA, PA Attending Provider Active Team Status: Inactive Member Role Status Dates Dr. Sue Weber MD Primary Care Provider, Referr ing Provider Active Dr. Loretta Eric MD Attending Provider Active Team Status: Active Member Role Status Dates Dr. Mae Morton III, MD Primary Care Provider Active Dr. Loretta Eric MD Attending Provider Active Dr. Josue Morton MD Referring Provider Active Team Status: Inactive Member Role Status Dates Dr. Sue Weber MD Primary Care Provider Active Dr. Niels Boudreaux DO Attending Provider, Emergency Spenser johnson Active Team Status: Inactive Member Role Status Dates Dr. Sue Weber MD Primary Care Provider Active Carly Lewis OFFICE SWEEPER, OFFICE SWEEPER-C Attending Provider, Referring Provider Active Service Desk Technician Relationship Specialty Start Date End Date Sue Weber MD [address] [place] [address] PCP - General Family Medicine 01/14/21 Service Desk Technician Relationship Specialty Start Date End Date Sue Weber MD [address] [place] [address] PCP - General Family Medicine 01/14/21 Service Desk Technician Relationship Specialty Start Date End Date Sue Weber MD [address] [place], [place] [address] PCP - General Family Medicine 01/14/21 Team Status: Inactive Member Role Status Dates Dr. Sue Weber MD Primary Care Provider Active Ed Physician Provider Emergency Provider Active Team Status: Inactive Member Role Status Dates Dr. Sue Weber MD Primary Care Provider Active Dr. Paco Miller MD Emergency Provider Active Service Desk Technician Relationship Specialty Start Date End Date Sue Weber MD [address] [place] [address] PCP - General Family Medicine 01/14/21 Gadiel Davis MD [address] [place] [address] Hematology/Oncology 01/16/23 Service Desk Technician Relationship Specialty Start Date End Date Sue Weber MD [address] [place] [address] PCP - General Family Medicine 01/14/21 Gadiel Davis MD [address] [place] [address] Hematology/Oncology 01/16/23 Service Desk Technician Relationship Specialty Start Date End Date Sue Weber MD [address] [place] [address] PCP - General Family Medicine 01/14/21 Gadiel Davis MD [address] [place] [address] Hematology/Oncology 01/16/23 Team Status: Inactive Member Role Status Dates Dr. Sue Weber MD Primary Care Provider Active Dr. Paco Miller MD Attending Provider, Emergency Provider Active Team Status: Inactive Member Role Status Dates Dr. Sue Weber MD Primary Care Provider Active Ed Physician Provider Attending Provider, Emergency Pr ovider Active Service Desk Technician Relationship Specialty Start Date End Date Sue Weber MD [address] [place] [address] PCP - General Family Medicine 01/14/21 Gadiel Davis MD [address] [place] [address] Hematology/Oncology 01/16/23 Service Desk Technician Relationship Specialty Start Date End Date Sue Weber MD [address] [place] [address] PCP - General Family Medicine 01/14/21 Gadiel Davis MD [address] [place] [address] Hematology/Oncology 01/16/23 Service Desk Technician Relationship Specialty Start Date End Date Sue Weber MD [address] [place] [address] PCP - General Family Medicine 01/14/21 Gadiel Davis MD [address] [place] [address] Hematology/Oncology 01/16/23 Service Desk Technician Relationship Specialty Start Date End Date Sue Weber MD [address] [place] [address] PCP - General Family Medicine 01/14/21 Gadiel Davis MD [address] [place] [address] Hematology/Oncology 01/16/23 Service Desk Technician Relationship Specialty Start Date End Date Sue Weber MD [address] [place] [address] PCP - General Family Medicine 01/14/21 Gadiel Davis MD [address] [place] [address] Hematology/Oncology 01/16/23 Service Desk Technician Relationship Specialty Start Date End Date Sue Weber MD [address] [place] [address] PCP - General Family Medicine 01/14/21 Gadiel Davis MD [address] [place] [address] Hematology/Oncology 01/16/23 Service Desk Technician Relationship Specialty Start Date End Date Sue Weber MD [address] [place] [address] PCP - General Family Medicine 01/14/21 Gadiel Davis MD [address] [place] [address] Hematology/Oncology 01/16/23 Service Desk Technician Relationship Specialty Start Date End Date Sue Weber MD [address] [facility] [place] [address] PCP - General Family Medicine 01/14/21 Gadiel Davis MD [address] [place] [address] Hematology/Oncology 01/16/23 Service Desk Technician Relationship Specialty Start Date End Date Sue Weber MD [address] [place] [place] [address] PCP - General Family Medicine 01/14/21 Gadiel Davis MD [address] [place] [address] Hematology/Oncology 01/16/23 Service Desk Technician Relationship Specialty Start Date End Date Sue Weber MD [address] [place] [address] PCP - General Family Medicine 01/14/21 Gadiel Davis MD [address] [place] [address] Hematology/Oncology 01/16/23 Team Status: Inactive Member Role Status Dates Dr. Sue Weber MD Primary Care Provider Active Dr. Alexey Bundy DO Emergency Provider Active Service Desk Technician Relationship Specialty Start Date End Date Sue Weber MD [address] [facility] [place] [address] PCP - General Family Medicine 01/14/21 Gadiel Davis MD [address] [place] [address] Hematology/Oncology 01/16/23 Team Status: Inactive Member Role Status Dates Dr. Sue Weber MD Primary Care Provider Active Dr. Alexey Bundy DO Attending Provider, Emergency Pro vider Active Team Status: Active Member Role Status Dates Dr. Sue Weber MD Primary Care Provider Active Dr. Aris Rai MD Attending Provider, Referring P rovider Active Team Status: Inactive Member Role Status Dates Dr. Sue Weber MD Primary Care Provider Active Dr. Yefri Gutierrez MD Emergency Provider Active Team Status: Inactive Member Role Status Dates Dr. Sue Weber MD Primary Care Provider Active Dr. Aris Rai MD Attending Provider, Referring P rovider Active Service Desk Technician Relationship Specialty Start Date End Date Sue Weber MD [address] [facility] [place] [address] PCP - General Family Medicine 01/14/21 Gadiel Davis MD [address] [place] [address] Hematology/Oncology 01/16/23 Service Desk Technician Relationship Specialty Start Date End Date Sue Weber MD [address] [facility] [address] PCP - General Family Medicine 01/14/21 Gadiel Davis MD [address] [place] [address] Hematology/Oncology 01/16/23 Service Desk Technician Relationship Specialty Start Date End Date Sue Weber MD [address] [place] [address] PCP - General Family Medicine 01/14/21 Gadiel Davis MD [address] [place] [address] Hematology/Oncology 01/16/23 Service Desk Technician Relationship Specialty Start Date End Date Sue Weber MD [address] [place] [address] PCP - General Family Medicine 01/14/21 Gadiel Davis MD [address] [place] [address] Hematology/Oncology 01/16/23 Service Desk Technician Relationship Specialty Start Date End Date Sue Weber MD [address] [place] [address] PCP - General Family Medicine 01/14/21 Gadiel Davis MD [address] [place] [address] Hematology/Oncology 01/16/23 Service Desk Technician Relationship Specialty Start Date End Date Sue Weber MD [address] [place] [address] PCP - General Family Medicine 01/14/21 Gadiel Davis MD [address] [place] [address] Hematology/Oncology 01/16/23 Service Desk Technician Relationship Specialty Start Date End Date Sue Weber MD [address] [place] [address] PCP - General Family Medicine 01/14/21 Gadiel Davis MD [address] [place] [address] Hematology/Oncology 01/16/23 Service Desk Technician Relationship Specialty Start Date End Date Sue Weber MD [address] [place] [address] PCP - General Family Medicine 01/14/21 Gadiel Davis MD [address] [place] [address] Hematology/Oncology 01/16/23 Service Desk Technician Relationship Specialty Start Date End Date Sue Weber MD [address] [facility] [address] PCP - General Family Medicine 01/14/21 Gadiel Davis MD [address] [place] [place] [address] Hematology/Oncology 01/16/23 Service Desk Technician Relationship Specialty Start Date End Date Sue Weber MD [address] [place] [place] [address] PCP - General Family Medicine 01/14/21 Gadiel Davis MD [address] [place] [address] Hematology/Oncology 01/16/23 Service Desk Technician Relationship Specialty Start Date End Date Sue Weber MD [address] [place] [address] PCP - General Family Medicine 01/14/21 Service Desk Technician Relationship Specialty Start Date End Date Sue Weber MD [address] [facility] [address] PCP - General Family Medicine 01/14/21 Gadiel Davis MD [address] [place] [address] Hematology/Oncology 01/16/23 Service Desk Technician Relationship Specialty Start Date End Date Sue Weber MD [address] [place] [address] PCP - General Family Medicine 01/14/21 Gadiel Davis MD [address] [place] [address] Hematology/Oncology 01/16/23 Jerica Chaudhari APRN.CLERICAL SUPERVISOR [address] [place] [address] Apartment Property Manager Family Medicine 05/01/24 Burke Snider APRN.CLERICAL SUPERVISOR [address] [place] [address] Apartment Property Manager Family Medicine 05/10/24 Service Desk Technician Relationship Specialty Start Date End Date Sue Weber MD [address] [place] [address] PCP - General Family Medicine 01/14/21 Gadiel Davis MD [address] [place] [address] Hematology/Oncology 01/16/23 Jerica Chaudhari APRN.CLERICAL SUPERVISOR [address] [place] [address] Apartment Property Manager Family Medicine 05/01/24 Burke Snider APRN.CLERICAL SUPERVISOR [address] [place] [address] Apartment Property Manager Family Medicine 05/10/24 Service Desk Technician Relationship Specialty Start Date End Date Sue Weber MD [address] [place] [address] PCP - General Family Medicine 01/14/21 Gadiel Davis MD [address] [place] [address] Hematology/Oncology 01/16/23 Jerica Chaudhari OCEANOGRAPHER PHYSICAL.CLERICAL SUPERVISOR [address] [place] [address] Apartment Property Manager Family Medicine 05/01/24 Burke Snider APRN.CLERICAL SUPERVISOR [address] [place] [address] Apartment Property Manager Family Medicine 05/10/24 Service Desk Technician Relationship Specialty Start Date End Date Sue Weber MD [address] [place] [address] PCP - General Family Medicine 01/14/21 Gadiel Davis MD [address] [place] [address] Hematology/Oncology 01/16/23 Jerica Chaudhari APRN.CLERICAL SUPERVISOR [address] [place] [address] Apartment Property Manager Family Medicine 05/01/24 Burke Snider APRN.CLERICAL SUPERVISOR [address] [place] [address] Apartment Property Manager Family Medicine 05/10/24 Service Desk Technician Relationship Specialty Start Date End Date Sue Weber MD [address] [place] [address] PCP - General Family Medicine 01/14/21 Gadiel Davis MD [address] [place] [address] Hematology/Oncology 01/16/23 Jerica Chaudhari OCEANOGRAPHER PHYSICAL.CLERICAL SUPERVISOR [address] [place] [address] Apartment Property Manager Family Medicine 05/01/24 Burke Snider APRN.CLERICAL SUPERVISOR [address] [place] [address] Apartment Property Manager Family Medicine 05/10/24 Service Desk Technician Relationship Specialty Start Date End Date Sue Weber MD [address] [place] [address] PCP - General Family Medicine 01/14/21 Gadiel Davis MD [address] [place] [address] Hematology/Oncology 01/16/23 Jerica Chaudhari APRN.CLERICAL SUPERVISOR [address] [place] [address] Apartment Property Manager Family Medicine 05/01/24 Burke Snider OCEANOGRAPHER PHYSICAL.CLERICAL SUPERVISOR [address] [place] [address] Apartment Property Manager Family Medicine 05/10/24 Service Desk Technician Relationship Specialty Start Date End Date Sue Weber MD [address] [facility] [address] PCP - General Family Medicine 01/14/21 Gadiel Davis MD [address] [place] [address] Hematology/Oncology 01/16/23 Jerica Chaudhari, OCEANOGRAPHER PHYSICAL.CLERICAL SUPERVISOR [address] [place] [address] Apartment Property Manager Family Medicine 05/01/24 Burke Snider OCEANOGRAPHER PHYSICAL.CLERICAL SUPERVISOR [address] [place] [address] Apartment Property Manager Family Medicine 05/10/24 Service Desk Technician Relationship Specialty Start Date End Date Sue Weber MD [address] [place] [address] PCP - General Family Medicine 01/14/21 Gadiel Davis MD [address] [place], [place] [address] Hematology/Oncology 01/16/23 Jerica Chaudhari APRN.CLERICAL SUPERVISOR [address] [place], [place] [address] Apartment Property Manager Family Medicine 05/01/24 Burke Snider APRN.CLERICAL SUPERVISOR [address] [place], [place] [address] Apartment Property Manager [facility] 05/10/24 Team Status: Active Member Role Status Dates Dr. Sue Weber MD Primary Care Provider Active Team Status: Inactive Member Role Status Dates Dr. Sue Weber MD Primary Care Provider Active Start: May 11, 2024 End: May 11, 2024 Dr. Sue Weber MD Referring Provider Active Start: May 11, 2024 End: May 11, 2024 Chavo LAUREN, PA Attending Provider Active Start: May 11, 2024 End: May 11, 2024 Team Status: Inactive Member Role Status Dates Dr. Sue Weber MD Primary Care Provider Active Start: June 07, 2024 End: June 07, 2024 SHAQ VUONG Attending Provider Active Start: June 07, 2024 End: June 07, 2024 SHAQ VUONG Referring Provider Active Start: June 07, 2024 End: June 07, 2024 Team Status: Inactive Member Role Status Dates Dr. Sue Weber MD Primary Care Provider Active Start: July 30, 2024 End: July 30, 2024 Dr. Alexey Bundy DO Emergency Provider Active S tart: July 30, 2024 End: July 30, 2024 Service Desk Technician Relationship Specialty Start Date End Date Sue Weber MD [address] [place], [place] [id number] PCP - General Family Medicine 01/14/21 Gadiel Davis MD [address] [place] [address] Hematology/Oncology 01/16/23 Jerica Chaudhari APRN.CLERICAL SUPERVISOR [address] [place] [address] Apartment Property Manager Family Medicine 05/01/24 Burke Snider APRN.CLERICAL SUPERVISOR [address] [place] [address] Apartment Property Manager Family Medicine 05/10/24 Juliette Brian CNP [address] [place] [address] Family Medicine 08/22/24 Service Desk Technician Relationship Specialty Start Date End Date Sue Weber MD [address] [place] [address] PCP - General Family Medicine 01/14/21 Gadiel Davis MD [address] [place] [address] Hematology/Oncology 01/16/23 Jerica Chaudhari APRN.CLERICAL SUPERVISOR [address] [place] [address] Apartment Property Manager Family Medicine 05/01/24 Burke Snider APRN.CLERICAL SUPERVISOR [address] [place] [address] Apartment Property Manager Family Medicine 05/10/24 Juliette Brian CNP [address] [place], [place] [id number] Family Medicine 08/22/24 Service Desk Technician Relationship Specialty Start Date End Date Sue Weber MD [address] [place] [address] PCP - General Family Medicine 01/14/21 Gadiel Davis MD [address] [place] [address] Hematology/Oncology 01/16/23 Jerica Chaudhari APRN.CLERICAL SUPERVISOR [address] [facility] [place] [address] Apartment Property Manager Family Medicine 05/01/24 Burke Snider APRN.CLERICAL SUPERVISOR [address] [facility] [place] [address] Apartment Property Manager Family Medicine 05/10/24 Juliette Brian, CLERICAL SUPERVISOR [address] [facility] [place], [place] [address] Family Medicine 08/22/24 Service Desk Technician Relationship Specialty Start Date End Date Sue Weber MD [address] [facility] [place] [address] PCP - General Family Medicine 01/14/21 Gadiel Davis MD [address] [place] [address] Hematology/Oncology 01/16/23 Jerica Chaudhari APRN.CLERICAL SUPERVISOR [address] [place] [address] Apartment Property Manager Family Medicine 05/01/24 Burke Snider APRN.CLERICAL SUPERVISOR [address] [place] [address] Apartment Property Manager Family Medicine 05/10/24 Juliette Brian CNP [address] [place] [address] Family Medicine 08/22/24 Service Desk Technician Relationship Specialty Start Date End Date Sue Weber MD [address] [place] [address] PCP - General Family Medicine 01/14/21 Gadiel Davis MD [address] [place] [address] Hematology/Oncology 01/16/23 Burke Snider APRN.CLERICAL SUPERVISOR [address] [place] [address] Apartment Property Manager Family [facility] 05/10/24 Juliette Brian CNP [address] [place] [address] Family Medicine 08/22/24 Service Desk Technician Relationship Specialty Start Date End Date Sue Weber MD [address] [place] [address] PCP - General Family Medicine 01/14/21 Gadiel Davis MD [address] [place] [address] Hematology/Oncology 01/16/23 Burke Snider APRN.CLERICAL SUPERVISOR [address] [place] [address] Apartment Property Manager Family Medicine 05/10/24 Juliette Brian CNP [address] [place], [place] [id number] Family Medicine 08/22/24 Service Desk Technician Relationship Specialty Start Date End Date Sue Weber MD [address] [place] [address] PCP - General Family Medicine 01/14/21 Gadiel Davis MD [address] [place] [address] Hematology/Oncology 01/16/23 Burke Snider APRN.CLERICAL SUPERVISOR [address] [place] [address] Apartment Property Manager Family Medicine 05/10/24 Juliette Brian CNP [address] [place], [place] [address] Family Medicine 08/22/24 Service Desk Technician Relationship Specialty Start Date End Date Sue Weber MD [address] [place] [address] PCP - General Family Medicine 01/14/21 Gadiel Davis MD [address] [place] [address] Hematology/Oncology 01/16/23 Burke Snider APRN.CLERICAL SUPERVISOR [address] [place] [address] Apartment Property Manager Family Medicine 05/10/24 Juliette Brian CNP [address] [place] [address] Family Medicine 08/22/24 Service Desk Technician Relationship Specialty Start Date End Date Sue Weber MD [address] [place] [address] PCP - General Family Medicine 01/14/21 Gadiel Davis MD [address] [place] [address] Hematology/Oncology 01/16/23 Jerica Chaudhari APRN.CLERICAL SUPERVISOR [address] [place] [address] Apartment Property Manager Family [facility] 05/01/24 10/05/24 Burke Snider APRN.CLERICAL SUPERVISOR [address] [place] [address] Apartment Property Manager Family [facility] 05/10/24 Juliette Brian CNP [address] [facility] [place] [address] Family [facility] 08/22/24 Goals (unrecognized section and content) Goals may be documented in a n alternate sectionGoals may be documented in an alternate sectionGoals may be documented in an alternate sectionGoals may be documented in an alternate sectionGoals may be documented in an alternate sectionGoals may be documented in an alternate sectionGoals may be documented in an alternate sectionGoals may be documented in an alternate sectionGoals may be documented in an alternate sectionGoals may be documented in an alternate section FOR RECORDS PERTAINING TO PATIENTS WHO ARE OR HAVE BEEN ENROLLED IN A CHEMICAL DEPENDENCY/SUBSTANCEABUSE PROGRAM, SOME INFORMATION MAY BE OMITTED. This clinical summary was aggregated from multiple sources. Caution should be exercised in using it in the provision of clinical care. This summary normalizes information from multiple sources, and as a consequence, information in this document may materially change the coding, format and clinical context of patient data. In addition, data may be omitted in some cases. CLINICAL DECISIONS SHOULD BE BASED ON THE PRIMARY CLINICAL RECORDS. [facility]. provides no warranty or guarantee of the accuracy or completeness of information in this document.
--- NOTE | 2024-11-13 20:25 | ED.VIS.DENTA ---
HPI History of Present Illness Chief Complaint: Dental Informant: patient Narrative Narrative: Dental extraction 8 days ago increased swelling 2 days. Was unremarkable. She has been on amoxicillin 500 g 3 times daily. There is been no drainage. No fevers. PFSH PFSH Medical History Allergic dermatitis Iron deficiency Thrombocytosis Leukocytosis Post-menopausal Depression Anxiety Thyroid disease Low iron Injury of back Gastric reflux Non-smoker History of stress test Hypertension Vaginal candidiasis Acute maxillary sinusitis, unspecified Shoulder pain Back pain Malignant tumor of kidney Thyroid disease Knee pain Severe headache Stomach ulcer Cancer Bladder distention Interstitial cystitis Pre-diabetes Essential thrombocythemia Home Medications ?Medication ?Instructions ?Recorded ?Last Taken ?Type buspirone 5 mg tablet 15 mg PO BID ANXIETY 08/28/15 01/15/19 History mirabegron 25 mg tablet,extended 50 mg PO 1400 BLADDER 05/31/18 01/15/19 History release 24 hr L.acidoph,paracasei,B.animalis 10 1 ea PO DAILY GUT HEALTH 01/16/19 01/16/19 History billion cell capsule bupropion HCl 150 mg tablet,12 hr 300 mg PO 1400 DEPRESSION 02/19/19 Unknown History sustained-release aspirin 81 mg tablet,delayed 81 mg PO DAILY 07/04/19 02/10/21 History release d-mannose 1 ea PO DAILY 02/28/20 Unknown History methenamine 120 mg-methyl.blue 1 tab PO PRN PRN Bladder Spasms 02/15/21 Unknown History 10.8 mg-sod phos-phenyl berny-hyos tablet doxepin 10 mg capsule 10 mg PO QHS 12/03/21 Unknown History levothyroxine 150 mcg tablet 150 mcg PO DAILY 12/03/21 Unknown History levothyroxine 25 mcg tablet 150 mcg PO DAILY THYROID 12/03/21 Unknown History omeprazole 40 mg capsule,delayed 40 mg PO DAILY 12/03/21 Unknown History release cyclobenzaprine 10 mg tablet 10 mg PO TID PRN Muscle Spasm #15 01/28/23 Unknown Rx TABLETS hydrocodone-acetaminophen 5-325mg 1 tab PO Q6H PRN PRN Pain 3 days 01/28/23 Unknown Rx 5mg-325mg #10 TABLETS hydroxyzine HCl 25 mg tablet 25 mg PO Q6H PRN itching #20 tabs 09/09/23 Unknown Rx ondansetron 4 mg disintegrating 8 mg (2 x 4 mg) PO Q8H PRN PRN 01/11/24 Unknown Rx tablet Nausea #15 tabs fluconazole 150 mg tablet 150 mg PO Q3D 2 doses #2 tabs 02/06/24 Unknown Rx amoxicillin 875 mg-potassium 875 mg PO Q12H #20 TABLETS 11/12/24 Unknown Rx clavulanate 125 mg tablet hydrocodone-acetaminophen 5-325mg 1 tab PO Q6H PRN PRN Pain 3 days 11/12/24 Unknown Rx 5mg-325mg #12 TABLETS Allergy/AdvReac Type Severity Reaction Status Date / Time ketorolac tromethamine (From Allergy Severe Hives Verified 11/12/24 15:49 Toradol) solifenacin succinate (From Allergy Severe Hives Verified 11/12/24 15:49 Vesicare) vibegron (From Gemtesa) Allergy Severe Anaphylaxis Verified 11/12/24 15:49 erythromycin base AdvReac Severe Nausea/Vom/ Verified 11/12/24 15:49 (Erythromycin Base) Diarrhea celecoxib (From Celebrex) AdvReac Intermediate Nausea/Vom/ Verified 11/12/24 15:49 Diarrhea lisinopril AdvReac Mild Vomiting Verified 11/12/24 15:49 Family History Father Diabetes Heart disease Hypertension Grandmother Cancer Surgical History History of root canal procedure History of cholecystectomy partial kidney removed Social History number of children: 0 current occupational status: employed current occupation: [employer] Smoking Status: Never smoker alcohol intake: never substance use type: does not use seatbelt use: sometimes do you feel safe at home: Yes additional social history: single ROS ROS ED Constitutional Constitutional ED: Denies fever(s) ENT ENT ED: Reports other Details: Facial pain gum pain Cardiovascular Cardiovascular: Denies chest pain Respiratory/Chest Respiratory/Chest: Denies cough Gastrointestinal Gastrointestinal: Denies diarrhea or vomiting Musculoskeletal Musculoskeletal: Denies none Integumentary Denies rash or wounds Neurologic Neurologic: Denies weakness EXAM Physical Exam Const Positive well nourished and well developed General Appearance ED: well developed HEENT HEENT Narrative: Mild swelling left lower mandible., Examination postextraction no sublingual edema no focal fluctuance at the gumline. There is tenderness above the gum with no active drainage. This is along the dental region of 18 and 19. Airway patent. No trismus. normocephalic and atraumatic Eyes General Eye ED: Yes normal appearance of both eyes Neck full ROM Resp normal respiratory effort and normal air movement Cardio regular rate and regular rhythm GI soft to palpation Extremity normal to inspection and full ROM Neuro oriented x3 Skin no rashes or lesions noted and no wounds MDM MDM MDM Narrative Medical decision making narrative: Interventions / MDM: Differential diagnosis:Dental abscess, status post extraction Diagnosis considered but do not suspect: no signs of Stanford angina. My EKG interpretation: N/A Imaging independently reviewed and interpreted by myself: N/A External documents reviewed: N/A Test considered but not ordered:N/A ED course: Afebrile from her history draining abscess however swelling noted. I broaden her antibiotics to Augmentin. She will hold her amoxicillin. Short course of [place]. She will follow-up with her dentist. Return precautions. All questions were answered. Re-evaluation: stable Disposition discussed with patient/family/significant other: Patient Case discussed with consulting clinician: N/A This note was generated with [employer] dictation software. It may contain incorrect words, spelling, and punctuation that were not noted in checking the note before signing. Discharge Plan Triage Chief Complaint: Dental ED Provider: Murray Ahmadi Dx/Rx/DC Orders Clinical Impression: Abscess, dental, Status post tooth extraction Instructions: ED Dental Abscess Prescriptions: New hydrocodone-acetaminophen 5-325 mg tablet 1 tab PO Q6H PRN PRN (Reason: Pain) 3 Days Qty: 12 0RF amoxicillin-pot clavulanate 875-125 mg tablet 875 mg PO Q12H Qty: 20 0RF No Action d-mannose Powder 1 ea PO DAILY doxepin 10 mg capsule 10 mg PO QHS levothyroxine 150 mcg tablet 150 mcg PO DAILY omeprazole 40 mg capsule,delayed release(DR/EC) 40 mg PO DAILY fluconazole 150 mg tablet 150 mg PO Q3D Qty: 2 0RF Rx Instructions: may repeat second dose 72 hrs after first dose if symptoms persist buspirone 5 MG tablet 15 mg PO BID mirabegron 25 mg tablet extended release 24 hr 50 mg PO 1400 bupropion HCl 150 mg tablet sustained-release 12 hr 300 mg PO 1400 levothyroxine 25 mcg tablet 150 mcg PO DAILY wallace Wiggins B.animalis 1 EACH capsule 1 ea PO DAILY aspirin 81 MG tablet,delayed release (DR/EC) 81 mg PO DAILY maxime-mervat-jennifer.lehb-wfhxv-uap 120-0.12-10.8 mg Tablet 1 tab PO PRN PRN (Reason: Bladder Spasms) hydrocodone-acetaminophen 5-325 mg tablet 1 tab PO Q6H PRN PRN (Reason: Pain) 3 Days Qty: 10 0RF cyclobenzaprine 10 mg tablet 10 mg PO TID PRN (Reason: Muscle Spasm) Qty: 15 0RF hydroxyzine HCl 25 mg tablet 25 mg PO Q6H PRN (Reason: itching) Qty: 20 0RF ondansetron 4 mg tablet,disintegrating 8 mg PO Q8H PRN PRN (Reason: Nausea) Qty: 15 0RF Primary Care Provider: Da Weber Referrals: Da Weber MD [Primary Care Provider] - Activity Restrictions/Additional Instructions: Likely abscess nothing amenable to drainage in the ED. Stop your amoxicillin and take new antibiotic as prescribed twice a day. Use pain medicines as needed. Call your dentist on Thursday for follow-up. Print Language: Armenian Disposition Disposition: Home, Self Care Discharge Date/Time: 11/12/24 18:08
== END 2024-11-12 18:08 | disposition home or self-care (01) ==
LOC: ED 18:07
PROVIDERS: Emergency Provider Emergency Medicine; PCP Family Medicine; Visit Provider Emergency Medicine
DX: K04.7 Periapical abscess without sinus (principal); I10 Essential (primary) hypertension; E07.9 Disorder of thyroid, unspecified; F32.9 Major depressive disorder, single episode, unspecified; F41.9 Anxiety disorder, unspecified; Z79.82 Long term (current) use of aspirin; Z79.890 Hormone replacement therapy; Z98.818 Other dental procedure status
CPT/HCPCS: 99283

== ENCOUNTER 2024-11-15 16:33 | Emergency (ER) | payer MEDICAID, SELFPAY ==
[2024-11-15 16:35] VITALS: BP 175/78; PULSE 92; RESP 18; TEMP 36.4; O2SAT 96; BMI 37.4
--- NOTE | 2024-11-15 16:44 | EDS_ITS ---
HPI History of Present Illness Chief Complaint: Dental Detail of Chief Complaint: Bleeding from extraction site Informant: patient Onset/Context/Timing Onset: Today (Patient was seen 8 days after dental extraction and placed on antibiotics, saw dentist and opened extraction site resulting in continuous bleeding) Context: Onset with activity Timing: Continuous Quality: Bleeding. On baby aspirin only Location: Tooth #17 Current Severity: Mild Worsened by: Patient removing the pack Associated Symptoms Assocated Symptom - Dental: Negative for fever, jaw swelling, face swelling, cold sensitivity or hot sensitivity Narrative Narrative: Patient is a 59-year-old woman she had her left lower molar, tooth #17 extracted 10 days ago. She was seen on November 13. She was diagnosed with dental infection and was placed on antibiotics. She saw the dentist today for follow- up. He opened up the sutured site. There was a gush of blood and she continues to bleed. She was sent to the emergency department. Patient is on no anticoagulant. She is on a baby aspirin. She does not have a history of bleeding disorder or bruising easily. She has no history of thrombocytopenia. Patient states she is removing the tissue clot that she is put in her mouth every 30 seconds. Prior similar symptoms: No Recent Illness/Hospitalization: Yes [facility] Medical History Allergic dermatitis Iron deficiency Thrombocytosis Leukocytosis Post-menopausal Depression Anxiety Thyroid disease Low iron Injury of back Gastric reflux Non-smoker History of stress test Hypertension Vaginal candidiasis Acute maxillary sinusitis, unspecified Shoulder pain Back pain Malignant tumor of kidney Thyroid disease Knee pain Severe headache Stomach ulcer Cancer Bladder distention Interstitial cystitis Pre-diabetes Essential thrombocythemia Home Medications ?Medication ?Instructions ?Recorded ?Last Taken ?Type buspirone 5 mg tablet 15 mg PO BID ANXIETY 6 01/15/19 History mirabegron 25 mg tablet,extended 50 mg PO 1400 BLADDER 05/31/18 01/15/19 History release 24 hr L.acidoph,paracasei,B.animalis 10 1 ea PO DAILY GUT HE ALTH 01/16/19 01/16/19 History billion cell capsule bupropion HCl 150 mg tablet,12 hr 300 mg PO 1400 DEPRE SSION 02/19/19 Unknown History sustained-release aspirin 81 mg tablet,delayed 81 mg PO DAILY 07/04/19 0 02/10/21 History release d-mannose 1 ea PO DAILY 02/28/20 Unkno wn History methenamine 120 mg-methyl.blue 1 tab PO PRN PRN Bladde r Spasms 02/15/21 Unknown History 10.8 mg-sod phos-phenyl berny-hyos tablet doxepin 10 mg capsule 10 mg PO QHS 12/03/21 Unknow n History levothyroxine 150 mcg tablet 150 mcg PO DAILY 12/03/21 Unknown History levothyroxine 25 mcg tablet 150 mcg PO DAILY THYROID 0 12/03/21 Unknown History omeprazole 40 mg capsule,delayed 40 mg PO DAILY Unknown History release cyclobenzaprine 10 mg tablet 10 mg PO TID PRN Muscle S pasm #15 01/28/23 Unknown Rx TABLETS hydrocodone-acetaminophen 5-325mg 1 tab PO Q6H PRN PRN Pain 3 days 01/28/23 Unknown Rx 5mg-325mg #10 TABLETS hydroxyzine HCl 25 mg tablet 25 mg PO Q6H PRN itching #20 tabs 09/09/23 Unknown Rx ondansetron 4 mg disintegrating 8 mg (2 x 4 mg) PO Q8H PRN PRN 01/11/24 Unknown Rx tablet Nausea #15 tabs fluconazole 150 mg tablet 150 mg PO Q3D 2 doses #2 tab s 02/06/24 Unknown Rx amoxicillin 875 mg-potassium 875 mg PO Q12H #20 TABLET S 11/12/24 Unknown Rx clavulanate 125 mg tablet hydrocodone-acetaminophen 5-325mg 1 tab PO Q6H PRN PRN Pain 3 days 11/12/24 Unknown Rx 5mg-325mg #12 TABLETS Allergy/AdvReac Type Severity Reaction Status Date / Time ketorolac tromethamine (From Allergy Severe Hives Verified 11/15/24 16:35 Toradol) solifenacin succinate (From Allergy Severe Hives Verified 11/15/24 16:35 Vesicare) vibegron (From Gemtesa) Allergy Severe Anaphylaxis Verified 11/15/24 16:35 erythromycin base AdvReac Severe Nausea/Vom/ Verified 11/15/24 16:35 (Erythromycin Base) Diarrhea celecoxib (From Celebrex) AdvReac Intermediate Nausea/Vom/ Verified 11/15/24 16:35 Diarrhea lisinopril AdvReac Mild Vomiting Verified 11/15/24 16:35 Family History Father Diabetes Heart disease Hypertension Grandmother Cancer Surgical History History of root canal procedure History of cholecystectomy partial kidney removed Social History number of children: 0 current occupational status: employed current occupation: [employer] Smoking Status: Never smoker alcohol intake: never substance use type: does not use seatbelt use: sometimes do you feel safe at home: Yes additional social history: single ROS ROS ED Constitutional Constitutional ED: Denies chills, fever(s), subjective or sweats ENT ENT ED: Reports other Details: No trismus. No facial swelling. No facial redness ; Denies ear pain, rhinorrhea or sore throat Cardiovascular Cardiovascular: Denies chest pain or palpitations Respiratory/Chest Respiratory/Chest: Denies cough, dyspnea or dyspnea on exertion Gastrointestinal Gastrointestinal: Denies nausea or vomiting Hematologic/Lymphatic Hematologic/Lymphatic: Denies easy bleeding or easy bruising EXAM Physical Exam Const Vital Signs: 11/15/24 16:35 11/15/24 19:00 11/15/24 21:00 Temperature 97.5 F L Temperature Source Temporal Pulse Rate 92 93 96 Respiratory Rate 18 18 18 Blood Pressure 175/78 H 166/69 H 173/81 H Blood Pressure Mean 110 101 111 Pulse Ox 96 97 96 Oxygen Delivery Method Room Air Room Air Room Air Positive well nourished and well developed Constitutional Narrative: Patient appears in no distress. BMI is 37.5. General Appearance ED: well developed HEENT HEENT Narrative: Patient has bleeding from extraction site. There is no swelling of the jaw on the left side. There is no facial swelling. There is no trismus. Trachea is midline. There is no history expiratory stridor. There is no bruising noted. There is no firmness of the floor of the mouth. Eyes PERRL and EOMs intact bilaterally General Eye ED: Negative for pale conjunctiva or scleral icterus Neck no lymphadenopathy, supple and no JVD Neck Narrative: There is no stridor. Trachea is midline. Resp normal respiratory effort, no retractions and clear to auscultation bilaterally Cardio regular rate, regular rhythm, S1 normal heart sound, S2 normal heart sound and no murmurs Extremity normal to inspection Neuro oriented x3 and CN's II-XII intact bilaterally Sensorium / Orientation: alert Psych mental status grossly normal Skin no rashes or lesions noted and no wounds MDM MDM MDM Narrative Medical decision making narrative: Bleeding from extraction site. Will have nurse saturate gauze with Derek- Synephrine to have her bite down on it and keep her mouth tightly closed for 15 minutes. Will reassess at that time. Lab Data Attestation: I reviewed the patient's lab results. Lab results narrative: H&H is 14.3 and 49.1. White count is elevated. She is being treated for a dental infection. She is present on antibiotics. She has no systemic symptoms. Labs: Laboratory Results - last 24 hr 11/15/24 17:13 WBC 22.9 H RBC 6.44 H Hgb 14.3 Hct 49.1 H MCV 76.2 L MCH 22.2 L MCHC 29.1 L RDW Std Deviation 62.0 H RDW Coeff of Farhan 23.8 H Plt Count 463 H MPV 9.0 Management Discussion w/another healthcare provider: Sonar Watchstander (Spoke to her dentist Dr. Nate Shen. Informed him that I having trouble controlling the bleeding. He recommended suturing with 3-0 chromic.) Treatment and Re-Evaluation Narrative: The [facility] saturated gauze was removed at 1735. Will reassess in 5 to 10 minutes. Presently there is no active bleeding Procedures Other Procedures Procedure(s): Had nurse assist to determine where the bleeding is exactly since everything up to this point is failed. Patient has a laceration where tooth #1920 would be at the buccal gingival junction. The laceration is about a centimeter in length. This is the site of her bleeding and there is an arterial bleeder. In light of this the area was anesthetized. With the nurse ophthalmic surgical assistant using 4-0 Vicryl 2 simple interrupted sutures placed with control of her bleeding. Discharge Plan Triage Chief Complaint: Dental ED Provider: Nir Wisdom Dx/Rx/DC Orders Clinical Impression: Laceration of buccal mucosa, Type 2 diabetes mellitus, Leukocytosis, Elevated blood-pressure reading without diagnosis of hypertension, History of hypothyroidism Instructions: ED Laceration, Lip or Mouth Prescriptions: No Action d-mannose Powder 1 ea PO DAILY doxepin 10 mg capsule 10 mg PO QHS levothyroxine 150 mcg tablet 150 mcg PO DAILY omeprazole 40 mg capsule,delayed release(DR/EC) 40 mg PO DAILY fluconazole 150 mg tablet 150 mg PO Q3D Qty: 2 0RF Rx Instructions: may repeat second dose 72 hrs after first dose if symptoms persist buspirone 5 MG tablet 15 mg PO BID mirabegron 25 mg tablet extended release 24 hr 50 mg PO 1400 bupropion HCl 150 mg tablet sustained-release 12 hr 300 mg PO 1400 levothyroxine 25 mcg tablet 150 mcg PO DAILY L.acidoph,paracasei,B.animalis 1 EACH capsule 1 ea PO DAILY aspirin 81 MG tablet,delayed release (DR/EC) 81 mg PO DAILY cliffhnin-iaxrr-owu 120-0.12-10.8 mg Tablet 1 tab PO PRN PRN (Reason: Bladder Spasms) hydrocodone-acetaminophen 5-325 mg tablet 1 tab PO Q6H PRN PRN (Reason: Pain) 3 Days Qty: 10 0RF cyclobenzaprine 10 mg tablet 10 mg PO TID PRN (Reason: Muscle Spasm) Qty: 15 0RF hydroxyzine HCl 25 mg tablet 25 mg PO Q6H PRN (Reason: itching) Qty: 20 0RF ondansetron 4 mg tablet,disintegrating 8 mg PO Q8H PRN PRN (Reason: Nausea) Qty: 15 0RF hydrocodone-acetaminophen 5-325 mg tablet 1 tab PO Q6H PRN PRN (Reason: Pain) 3 Days Qty: 12 0RF amoxicillin-pot clavulanate 875-125 mg tablet 875 mg PO Q12H Qty: 20 0RF Primary Care Provider: Da Weber Referrals: Da Weber MD [Primary Care Provider] - Activity Restrictions/Additional Instructions: 1. Follow-up with your dentist. 2. The stitches placed will dissolve in 7 to 10 days 3. Dry socket Print Language: Egyptian Disposition Disposition: Home, Self Care
[2024-11-15] MEDS: Phenylephrine 0.25% 15 ML NASAL.SRY 2 SPRAY NASAL (16:54)
[2024-11-15 17:30] LABS: Hematocrit 49.1 % (37-47); Hemoglobin 14.3 g/dL (12.0-15.0); Mean Corp Hgb Conc 29.1 g/dL (32-36); Mean Corpuscular Hgb 22.2 pg (27.0-32.0); Mean Corpuscular Volume 76.2 fL (81-99); POSITIVE MORPHOLOGY YES; Platelet Count 463 K/mm3 (150-450); RBC Distribution Width CV 23.8 % (11.6-14.6); Red Blood Count 6.44 M/mm3 (4.2-5.4); White Blood Count 22.9 K/mm3 (4.4-11.0)
[2024-11-15 19:00] VITALS: BP 166/69; PULSE 93; RESP 18; O2SAT 97
[2024-11-15] MEDS: Ondansetron 4 MG/2 ML Vial IV ×2 (19:58→22:32)
--- NOTE | 2024-11-15 20:00 | ED.RN ---
This RN continues to have to suction out the patient's mouth d/t the bleeding and continues to pack the patient's mouth. This RN educated the patient to limit the amount of talking that the patient does with her mother at the bedside.
[2024-11-15] MEDS: TRANEXAMIC ACID 1,000 MG/10 ML ML OPERA.SITE (20:30)
[2024-11-15 20:32] LABS: Scan Indicated on CBC? Y/N YES- FLAGS NOTED
[2024-11-15 21:00] VITALS: BP 173/81; PULSE 96; RESP 18; O2SAT 96
[2024-11-15] MEDS: Bupivacaine 0.5%/Epi 1.8 ML Syringe INFILT (22:55)
[2024-11-15 23:00] VITALS: BP 165/78; PULSE 81; RESP 18; TEMP 36.8; O2SAT 99
== END 2024-11-15 23:20 | disposition home or self-care (01) ==
PROVIDERS: Emergency Provider Emergency Medicine; PCP Family Medicine; Visit Provider Emergency Medicine
DX: K91.840 Postprocedural hemorrhage of a digestive system organ or structure following a digestive system procedure (principal); E11.9 Type 2 diabetes mellitus without complications; S01.512A Laceration without foreign body of oral cavity, initial encounter; D72.829 Elevated white blood cell count, unspecified; R03.0 Elevated blood-pressure reading, without diagnosis of hypertension; Z79.82 Long term (current) use of aspirin; Z79.890 Hormone replacement therapy; Z79.899 Other long term (current) drug therapy
CPT/HCPCS: 40830; 85027; 96374; 96376; 99283; A4216; J2405

== ENCOUNTER → 2024-12-01 | Outpatient (CLI) | payer MEDICAID, SELFPAY | END | disposition home or self-care (01) | LOC: LABSPEC 08:33 | PROVIDERS: PCP Family Medicine; Visit Provider Physician Assistant | DX: R30.0 Dysuria (principal) | CPT/HCPCS: 87086; 87088 ==

== ENCOUNTER → 2024-12-02 | Outpatient (CLI) | payer MEDICAID, SELFPAY | END | disposition home or self-care (01) | LOC: LABSPEC 15:16 | PROVIDERS: PCP Family Medicine; Referring Provider Physician Assistant Surgical; Visit Provider Physician Assistant Surgical | DX: R30.0 Dysuria (principal) | CPT/HCPCS: 87077; 87086; 87088 ==

== ENCOUNTER → 2025-04-06 | Outpatient (CLI) | payer MEDICAID, SELFPAY ==
--- NOTE | 2025-04-06 15:34 | RAD_ITS ---
PROCEDURE: KNEE 3 VIEWS 04/06/2025 REASON FOR EXAM: KNEE INJURY TECHNIQUE: Procedure Code: RADPAT Modality: DX Procedure: KNEE 3 VIEWS Laterality: FINDINGS: No acute fracture or dislocation. Severe medial compartment joint space narrowing with articular surface flattening and sclerosis, and marginal osteophytosis. Marginal osteophytes are also noted in the lateral and patellofemoral compartments. Enthesophytes extend off of the patella and tibial tuberosity. A small suprapatellar joint effusion may be present. RAD/Knee 3 Views IMPRESSION: As above. Reading Location: [id number]
== END | disposition home or self-care (01) ==
LOC: MTRAD 15:32
PROVIDERS: PCP Registered Nurse; Referring Provider Physician Assistant Surgical; Visit Provider Physician Assistant Surgical
DX: S89.90XA Unspecified injury of unspecified lower leg, initial encounter (principal)
CPT/HCPCS: 73562